=== PATIENT | female | born 1940 | race Caucasian/White ===

== ENCOUNTER → 2016-09-19 | Outpatient (CLI) | payer OTHER ==
[~2016-09-19] MED LIST: ALBUAER2 INH; ASPI-321 PO; CLON1TAB3 PO; FLNIN/ NAE; LEVO125T5 PO; SNG10 PO; ULT/50 PO
--- NOTE | 2016-09-19 13:11 | DIAGNOSTIC IMAGING REPORT ---
ULTRASOUND LEFT VENOUS DOPP LOWER EXT UNILAT CLINICAL HISTORY: Left leg pain and swelling COMPARISON STUDY: No previous studies for comparison. FINDINGS: Real-time and color flow Doppler imaging were performed. Flow was seen within the femoral, popliteal and calf veins with no intraluminal thrombus demonstrated. The saphenous vein is patent. IMPRESSION: No evidence of left lower extremity DVT. Electronically signed by: Dandy Lucero M.D. 09/19/2016 1:10 PM Dictated Date/Time: 09/19/2016 1:09 PM
== END | disposition home or self-care (01) ==
LOC: C.ULTRBC 12:31
PROVIDERS: ATTEND Nurse Practitioner
DX: M79.605 Pain in left leg (principal)

== ENCOUNTER → 2016-09-23 | Outpatient (CLI) | payer OTHER ==
--- NOTE | 2016-09-26 12:44 | MAMMOGRAPHY REPORT ---
BILATERAL DIGITAL SCREENING MAMMOGRAM TOMOSYNTHESIS WITH CAD: 09/23/2016 CLINICAL HISTORY: Asymptomatic. Personal history of breast cancer. TECHNIQUE: Breast tomosynthesis in addition to standard 2D mammography was performed. Current study was also evaluated with a Computer Aided Detection (CAD) system. COMPARISON: Comparison is made to exams dated: 09/23/2015 mammogram, 09/22/2014 mammogram, 09/19/2013 magda mogram, 09/17/2012 mammogram, 09/15/2011 mammogram, and 09/13/2010 mammogram - [facility]. BREAST COMPOSITION: There are scattered areas of fibroglandular density in both breasts. FINDINGS: The exam is suboptimal due to inability of the patient to tolerate proper positioning. T he pectoralis muscle is not visualized on bilateral MLO views and the far posterior tissue is not in cluded on MLO views. No suspicious masses, calcifications, or areas of architectural distortion are noted in either breast. There has been no significant interval change compared to prior exams. Pos t surgical changes are again noted in the left central breast from prior lumpectomy; note that the l umpectomy bed is not entirely included due to the far posterior location. Bilateral benign-appearin g calcifications and bilateral asymmetries are not significantly changed. IMPRESSION: ACR BI-RADS CATEGORY 2: BENIGN There is no mammographic evidence of malignancy. A 1 year screening mammogram is recommended. The p atient will receive written notification of the results. Approximately 10% of breast cancers are not detected with mammography. A negative mammographic repor t should not delay biopsy if a clinically suggestive mass is present. Anitra Sommer M.D. /:09/25/2016 11:45:53 Enamel Drier: Nidia VANEGAS(Sarika)(An), [facility] letter sent: Normal 1/2 BI-RADS Code: ACR BI-RADS Category 2: Benign
== END | disposition home or self-care (01) ==
LOC: C.MAMM 10:24
PROVIDERS: ATTEND Family Medicine
DX: Z12.31 Encounter for screening mammogram for malignant neoplasm of breast (principal); Z85.3 Personal history of malignant neoplasm of breast

== ENCOUNTER → 2016-11-02 | Outpatient (CLI) | payer OTHER ==
--- NOTE | 2016-11-03 06:29 | PAP/PSG TECHNICIAN REPORT ---
[facility] Director Of Hotel Operations Polysomnogram Report Study name: None Report date: 11/03/2016 Study date: 11/02/2016 Referring Physician: Riky CASILLAS M.D. Name: VILLANUEVA DREAD Karina Interpreting Physician: Domitila Casillas M.D. Date of : 1940 Director Of Hotel Operations: Yari Blackwood RPS. Sex: Female Age: 76 StudyType: PSG Weight: 142 lbs Height: 76 years, Height 4' 11" BMI: 28.68 Medications: LEVOTHYROXINE 125 MCG, LORATADINE 10 MG, ADVAIR DISKUS 250-50 MCG/DOSE, MONTELUKAST 10 MG, TRAMADOL 50 MG, IPRATROPIUM 0.02%, MOMETASONE FUROATE 0.1% OINT, PROAIR 108 MCG/ACT, ASPIRIN 81 MG, TUMS 500 MG Patient History 76 yr-old female here for a possible split night sleep study with ETC02 in room 8. Patient was very nervous upon arrival. She was very worried about wearing a mask. Patient has persistent asthma and nocturnal hypoxemia, she is not currently using oxygen. She also snores, has problems staying asleep and EDS. Patients [place] Sleepiness scale score is 18/24. Parameters Monitored NPSG: E1-M2, E2-M1, Fp1-M2, Fp2-M1, F3-M2, F4-M2, F4-M1, C3-M2, C4-M2, C4-M1, O1-M2, O2-M2, O2-M1, T3-M2, T4-M1, P3-M2, P4-M1, CHIN1, CHIN2, HR, EKG, Legs, PFLOW, SNOR, FLOW, CFLOW, Tidal Volume, THOR, ABDO, SpO2, PLTH, CPRESS, ETCO2 Wave, ETCO2, pH Sleep Architecture Sleep Stages Time at Lights Off 10:33:39 PM STAGES Time (min.) TST (%) Time at Lights On 5:43:39 AM Wake 139.0 -- Total Recording Time (TRT) 430.50 min. N1 21.5 7 Total Sleep Period (TSP) 415.0 min. N2 134.5 46 Total Sleep Time (TST) 291.0min. N3 101.5 35 Awake Time 139.0 min. REM 33.5 12 Wake after Sleep Onset 124.0 min. Sleep Efficiency (SE) 68 % Sleep Onset Latency (ROGER) 15.0 min. Number of Stage 1 Shifts None Awakenings 7 Stage Changes 28 Number of REM periods 2 REM 33.5 12 REM Latency 107.0 min. NREM 257.5 88 Body Position Analysis Supine Right Left Side Prone Vertical Total Sleep Time (min.) 429.8 0.0 0.0 0.00 0.0 0.1 Total Sleep Time (%) 100% 0% 0% 0 0% N/A% Total Sleep Time REM (min.) 33.5 0.0 0.0 None 0.0 0.0 Total Sleep Time NREM (min.) 257.5 0.0 0.0 None 0.0 0.0 Intermittent Wake (min.) 138.8 0.0 0.0 None 0.0 0.1 Total Sleep Period (%) 100% None None None None None Arousals Myoclonus (PLM) * Events Count Index Events Count Index Spontaneous 3 1 Events Awake (PLMW) 23 9.9 Respiratory 0 0.0 Events Asleep w/ Arousal (PLMA) 0 0.0 PLM 0 0 Events Asleep w/o Arousal (PLMS) 6 1.2 Snoring 1 0 Total Asleep 6 1.2 Total 4 1 Total 29 4 Respiratory Analysis * CA OA MA CH H RERA Total Count 0 19 0 0 28 0 47 Index 0.0 3.9 0.0 0 5.8 0 9.7 Mean Duration 0.0 28.2 0.0 0.00 23.4 0.0 25.3 Longest Duration 0.0 56.8 0.0 0.00 0.0 0.0 56.8 Respiratory Event Summary Total Supine ~Supine Right Left Prone REM NREM Apneas Count 19 19 N/A N/A N/A N/A 17 2 Index 3.9 4 N/A N/A N/A N/A 30 0 Hypopneas (4% Desat) Count 28 28 N/A N/A N/A N/A 10 18 Index 5.8 5.8 N/A N/A N/A N/A 17.9 4.2 Apneas & All Hypopneas Count 47 47 N/A N/A N/A N/A 27 20 Index 9.7 10 N/A N/A N/A N/A 48.4 4.7 Respiratory Events (Microsoft Office Instructor+All Hyp+RERA) Count 47 47 N/A N/A N/A N/A 27 20 Index 9.7 10 N/A N/A N/A N/A 48.4 4.7 Respiratory Related Arousal Count 0 47 N/A N/A N/A N/A 0 0 Index 0.0 0 N/A N/A N/A N/A 0 0 Snoring Analysis Supine Right Left Prone REM NREM Total Snore duration 1.0 min Snores count 48 N/A N/A N/A 7 41 48 Snore mean duration 1.2 Sec Snores index 10 N/A N/A N/A 12.5 9.6 9.9 TST with snoring (%) 0.3% SpO2 Analysis Total REM NREM Awake <50% 0.0 min. 0.0 min. 0.0 min. 0.0 min. 51 - 60% 0.0 min. 0.0 min. 0.0 min. 0.0 min. 61 - 70% 0.0 min. 0.0 min. 0.0 min. 0.0 min. 71 - 80% 1.4 min. 0.9 min. 0.1 min. 0.4 min. 81 - 90% 37.6 min. 10.5 min. 25.1 min. 2.0 min. 91 - 100% 375.1 min. 22.1 min. 232.3 min. 120.7 min. Average 92 91 92 93 Minimum SpO2 74 74 79 78 Desaturation Event Index 7.0 43.0 4.4 3.0 # Desat. Events below 89% 35 18 15 2 Time(%) with Saturation below 89% 3.3 1.9 1.0 0.4 Time(min.) with Saturation below 89% 13.8 8.0 4.1 1.7 Heart Rate Analysis End Tidal CO2 Analysis Min (bpm) Max (bpm) Average (bpm) TSP (mins) % of TSP Awake 54 86 63 Above 55 mmHg 0.0 0.0 NREM 55 74 61 50-55 mmHg 0.0 0.0 REM 55 82 62 45-50 mmHg 0.0 0.0 Overall 55 82 61 40-45 mmHg 18.5 6.4 35-40 mmHg 40.9 14.1 30-35 mmHg 112.9 38.8 Average ETCO2 0.0 Supplemental O2 Values Minimum O2 level: None Value Start Time End Time Director Of Hotel Operations Comments Mrs. Villanueva slept in the supine position. No cardiac arrhythmia or PLMs noted. No bruxism noted. Snoring was noted and scored as a 1 on a scale of 0 through 5. (0=no snoring, 5=snoring loud enough to be heard through a closed door or down the german way) Mrs. Villanueva awoke to use the restroom once during the night. She asked to be told when it was 3:30 am so she could take her medicine. At that time, she took a Tramadol. Mrs. Villanueva stated, that was a normal night. The final report will be interpreted and signed by a sleep physician. The completed physician report will then be placed in the patient medical record. Therapy (cm H2O) 0 TIB (min.) 430.0 TST (min.) 291.0 Sleep Onset (min.) 15.0 REM Onset From Sleep (min.) 107.0 Sleep Efficiency % 68 Wakefulness (%) 32 Wakefulness (min.) 139.0 NREM 1 (%) 7 NREM 1 (min.) 21.5 NREM 2 (%) 46 NREM 2 (min.) 134.5 NREM 3 (%) 35 NREM 3 (min.) 101.5 REM (%) 12 REM (min.) 33.5 # Arousals 4 Arousal Index 1 # Snore 48 Snore Index 9.9 AHI 9.7 AHI Supine 10 AHI Non-Supine N/A NREM AHI 4.7 REM AHI 48.4 RDI 9.7 # Obstructive Apnea 19 # Central Apnea 0 # Mixed Apnea 0 # Hypopneas 28 RERAs 0 Total Respiratory Events 50 Time Below SpO2 89% (min.) 12.1 Mean NREM SpO2 (%) 92 Mean REM SpO2 (%) 91 Mean Sleep SpO2 (%) 92 Min NREM SpO2 (%) 79 Min REM SpO2 (%) 74 Position Supine (min.) 429.8 Position Non-supine (min.) 0.0 LM Index Sleep 1.2 LM Index NREM 1.2 LM Index REM 1.8 Mean Heart Rate (bpm) 61 Min Heart Rate (bpm) 55
--- NOTE | 2016-11-17 08:51 | POLYSOMNOGRAPH REPORT ---
REFERRING PERSON: Dr. Jodi Casillas. FRONT MAKER LOCKSTITCH: Yari Blackwood. Ms. Villanueva is a 76-year-old female for possible split night sleep study. She is very anxious upon arrival to the sleep lab. She has a history of asthma and nocturnal hypoxemia, but is not currently using oxygen. She does snore and has trouble with sleep maintenance, insomnia as well as excessive daytime sleepiness. Her Evans sleepiness scale score on the evening of this study is 18. BMI is 28.68. Following the technical and digital specifications of the [place] [employer] (AASM) a standard diagnostic polysomnogram was performed monitoring EEG, EOG, EMG (chin and leg deviations), oxygen saturation, body position, digital video, respiratory effort and airflow. The sleep Stage and event scoring was based on the AASM Manual for the Scoring of Sleep and Associated Events 2007 edition. Apneas are defined as a drop in the peak thermal sensor excursion by >90% of baseline for at least 10 seconds. Hypopneas were scored using the 4% oxygen desaturation rule (4A-Medicare) and a decrease in the nasal pressure excursions by >30% of baseline for at least 10 seconds. Respiratory effort-related arousal (RERA's) is defined as a sequence of breaths lasting at least 10 seconds characterized by increasing respiratory effort or flattening of the nasal pressure waveform leading to an arousal from sleep when the sequence of breaths does not meet criteria for an apnea or hypopnea. Apnea Hypopnea index (AHI) is defined as the number of apneas and hypopneas occurring in an hour of sleep. Respiratory disturbance index (RDI) is defined as the number of apneas, hypopneas, and RERA's occurring in an hour of sleep. Ms. Villanueva's total sleep period time was 415 minutes. Total sleep time was only 291 minutes. Sleep efficiency was 68%. Latency to sleep onset was 15 minutes with wake after sleep onset of 124 minutes. Total non-REM sleep time was 257.5 minutes. She spent 7% of that time in N1 sleep, 46% in N2 sleep and 35% in N3 sleep. REM latency was 107 minutes. Total REM sleep time was 33.5 minutes or 12% of total sleep time. There were 4 cortical arousals from sleep. Three of these arousals were spontaneous and 1 was due to a snoring event. There were 6 periodic limb movements noted on this test. Limb movement index was 1.2. Limb movement with arousal index was 0. There were no central apneas, 19 obstructive apneas and no mixed apneas on this test. There were 28 hypopnea and no RERA. Apnea-hypopnea index was elevated at 9.7. The supine AHI was 10, REM AHI was 48.4. Mean saturation was 92% with desaturations briefly to 74%. Saturations were less than 89 for 13.8 minutes of recorded time. This is significant nocturnal hypoxemia. Heart rates during this study ranged from a low of 55 beats per minute to a high of 82 beats per minute. No cardiac ectopy was noted during this testing. End tidal CO2 data was incomplete on this study. IMPRESSION AND PLAN: A 76-year-old female with evidence of mild sleep apnea, severe in REM sleep as well as mild nocturnal hypoxemia. 1. This patient would likely benefit from positive airway pressure therapy. She should return to the sleep lab for a full night titration and then based on those results be started on equipment at home. A download from her machine can be reviewed in 1 month both to check compliance as well as AHI and further pressure adjustments can occur at that time. 2. Alternatively, this patient could be started on auto titrating CPAP and then a download reviewed in 1 month at which point she could be started on optimal pressure and another download reviewed. 3. Should this patient be unwilling or unable to tolerate CPAP therapy, she should be referred to ear, nose and throat or oral surgery/dental medicine (if appropriate) to discuss alternative treatments for sleep disordered breathing. JESI
== END | disposition home or self-care (01) ==
LOC: C.NEUR 20:00
PROVIDERS: ATTEND Family Medicine
DX: G47.36 Sleep related hypoventilation in conditions classified elsewhere (principal); J45.40 Moderate persistent asthma, uncomplicated; R06.83 Snoring; G47.10 Hypersomnia, unspecified; G47.00 Insomnia, unspecified

== ENCOUNTER → 2017-09-29 | Outpatient (CLI) | payer OTHER ==
--- NOTE | 2017-10-02 07:46 | MAMMOGRAPHY REPORT ---
BILATERAL DIGITAL SCREENING MAMMOGRAM TOMOSYNTHESIS WITH CAD: 09/29/2017 CLINICAL HISTORY: Routine screening. Patient has no complaints. TECHNIQUE: Breast tomosynthesis in addition to standard 2D mammography was performed. Current study was also evaluated with a Computer Aided Detection (CAD) system. COMPARISON: Comparison is made to exams dated: 09/23/2016 mammogram, 09/23/2015 mammogram, 09/22/2014 mamm ogram, 09/19/2013 mammogram, 09/17/2012 mammogram, and 09/15/2011 mammogram - [facility] . BREAST COMPOSITION: There are scattered areas of fibroglandular density in both breasts. FINDINGS: No suspicious masses, calcifications, or areas of architectural distortion are noted in ei ther breast. There has been no significant interval change compared to prior exams. Post surgical ch anges are again noted in the left central breast from prior lumpectomy; note that the lumpectomy bed is not entirely included due to the far posterior location. Bilateral benign-appearing calcification s and bilateral asymmetries are not significantly changed. IMPRESSION: ACR BI-RADS CATEGORY 2: BENIGN There is no mammographic evidence of malignancy. A 1 year screening mammogram is recommended. The pa tient will receive written notification of the results. Approximately 10% of breast cancers are not detected with mammography. A negative mammographic report should not delay biopsy if a clinically suggestive mass is present. Anitra Sommer M.D. /:09/29/2017 16:03:09 Storage Manager: Nidia ALBERTO)(An), [facility] letter sent: Normal 1/2 BI-RADS Code: ACR BI-RADS Category 2: Benign
== END | disposition home or self-care (01) ==
LOC: C.MAMM 14:14
PROVIDERS: ATTEND Family Medicine
DX: Z12.31 Encounter for screening mammogram for malignant neoplasm of breast (principal)

== ENCOUNTER 2021-01-03 17:19 | Inpatient (IN) ==
[2021-01-03] MEDS ORDERED: ACETAMINOPHEN 325 MG TAB PO STA (17:56)
[2021-01-03] MEDS ORDERED: SODIUM CHLORIDE 0.9% 1000ML 1,000 ML IV SCH (18:00)
[2021-01-03 19:12] LABS: Basophils # (auto) 0.02 K/uL (0-0.2); Basophils % (auto) 0.1 %; Eosinophils # (auto) 0.01 K/uL (0-0.5); Eosinophils % (auto) 0.1 %; Hematocrit (blood only) 36.8 % (37-47); Hemoglobin 12.5 g/dL (12.0-16.0); Immature Granulocytes # (auto) 0.06 K/uL (0.00-0.02); Immature Granulocytes % (auto) 0.4 %; Lymphocytes # (auto) 1.16 K/uL (1.2-3.4); Lymphocytes % (auto) 6.9 %; Mean Corpuscular Hemoglobin 29.6 pg (25-34); Mean Platelet Volume 10.6 fL (7.4-10.4); Monocytes # (auto) 1.97 K/uL (0.11-0.59); Monocytes % (auto) 11.7 %; Neutrophils # (auto) 13.56 K/uL (1.4-6.5); Neutrophils % (auto) 80.8 %; Platelet Count 211 K/uL (130-400); RDW Coefficient of Variation 13.7 % (11.5-14.5); RDW Standard Deviation 43.7 fL (36.4-46.3); Red Blood Count 4.23 M/uL (4.2-5.4); White Blood Count 16.78 K/uL (4.8-10.8)
[2021-01-03 19:21] LABS: INR 1.2 (0.9-1.1); Prothrombin Time 11.9 Seconds (9.0-12.0)
--- NOTE | 2021-01-03 19:26 | XRay Report ---
XR chest 1V portable CLINICAL HISTORY: fever, sob COMPARISON STUDY: Chest radiograph April 02, 2020. FINDINGS: Incidental note is made of cholecystectomy clips. There may be trace bilateral pleural effu sions. Cardiac size is normal. There are mild bilateral opacities and subtle interstitial thickening. IMPRESSION: 1. Mild bilateral opacities and interstitial thickening. The findings favor an infectious process. Pu lmonary edema could appear similar. Radiographic follow up is recommended. 2. Possible trace bilateral left pleural effusions. ACT 112: Negative or not required by law. Electronically signed by: Johnnie Hdz M.D. 01/03/2021 7:25 PM
[2021-01-03 19:32] LABS: Albumin Level 2.5 gm/dl (3.4-5.0); BUN Creatinine Ratio 32.3 (10-20); Calcium 8.3 mg/dl (8.5-10.1); Creatinine Clr Calc Pharmacy 47.9 ml/min; Est GFR (African American) 88.5 ml/min; Est GFR (Non-African American) 76.3 ml/min; Magnesium 2.4 mg/dl (1.8-2.4); Potassium 3.4 mmol/L (3.5-5.1)
[2021-01-03] MEDS ORDERED: cefTRIAXone SODIUM 1,000 MG/50 ML BAG IV STA (19:33)
[2021-01-03] MEDS ORDERED: DOXYCYCLINE HYCLATE 100 MG CAP PO STA (19:33)
[2021-01-03 19:43] LABS: Albumin Globulin Ratio 0.6 (0.9-2); Bilirubin,Total 0.7 mg/dl (0.2-1); Thyroid Stimulating Hormone 7.61 uIu/ml (0.300-4.500); Total Protein 6.5 gm/dl (6.4-8.2); Troponin I 0.016 ng/ml (0-0.045)
--- NOTE | 2021-01-03 19:43 | Emergency Department Note ---
Impression & Plan Pneumonia, Hypoxia ED Provider Note DATE OF SERVICE: 01/03/2021 CHIEF COMPLAINT: Shortness of breath, fever HISTORY OF PRESENT ILLNESS: Patient is a 80-year-old female past medical history including breast cancer and thyroid dysfunction on aspirin presenting here today complaining of shortness of breath and fever developing over the past 36 hours. Patient has received the Covid vaccine. Family just noted she was ill today and brought her here. Fever noted in triage but she states has been feeling somewhat cold at home. Reported that last night she had a little bit of pain under her left breast as well as a little bit of right lower quadrant abdominal pain but this is resolved. Denies any nausea or vomiting or current abdominal pain. Denies any current chest pain. No recent travel or leg swelling reported. Patient is somewhat hard of hearing. Patient is not on oxygen at home. REVIEW OF SYSTEMS: A total of 10 review of systems was obtained and negative except as stated above in the HPI. PAST MEDICAL HISTORY: As noted above MEDICATIONS: Reviewed home medications with the patient and family at bedside SOCIAL HISTORY: Lives at home with , not on home oxygen PHYSICAL EXAM: GENERAL: alert and oriented in no acute distress on stretcher although quite hard of hearing Head: normocephalic and atraumatic EYES: No injection, discharge or icterus. NECK: Trachea midline. Supple. LUNGS: Airway patent. No retractions. Breath sounds diminished in the bases without significant expiratory wheeze. HEART: Regular rate and rhythm. No chest wall tenderness ABDOMEN: Soft and non-tender, without guarding or rebound. SKIN: Acyanotic, warm, dry, without rashes EXTREMITIES: Without swelling, tenderness or deformity NEUROLOGICAL: No focal deficits. No aphasia. No facial droop or slurred speech. EK bpm sinus tachycardia. No PVC or PVC. No acute ST segment elevation noted. QTc 436. CONTINUOUS CARDIAC MONITORING: was ordered and showed a heart rate of 80s-110s bpm in normal sinus rhythm to sinus tachycardia Patient's laboratory studies and imaging reviewed. Differential includes Infection, dehydration, metabolic abnormality, hypo/hyperglycemia, electrolyte disturbance, anemia, hypoxia, cardiac sources, intracerebral event, toxicologic, neurologic, as well as other pathologies. IMPRESSION/MEDICAL DECISION MAKING: Patient no to be febrile hypoxic upon arrival. Given some Tylenol and nasal cannula oxygen. Patient given some IV fluid hydration. Leukocytosis is noted here without anemia. Covid testing negative. X-ray concerning for pneumonia. Procalcitonin 0.49. Lactate is not elevated. No evidence of hepatitis. Borderline hypokalemia but no severe electrolyte abnormalities either renal dysfunction. Troponin detectable but not abnormal. Does report some chest pain last night but no apparent significant acute ST elevation here question some possible demand component. Patient is on aspirin at home although question if she takes this regularly by family. Given doxycycline and ceftriaxone for broad coverage of pneumonia. Given her hypoxia feel she needs further care here at the hospital and she was in agreement. Given lack of leg swelling no significant concern for fluid overload at this time and doubt DVT. Lower susp icion given the leukocytosis and fever of 39.1 lower suspicion for PE at this time. Hospitalist was contacted. DIAGNOSIS: Pneumonia, hypoxia DISPOSITION: Hospitalist will evaluate Patient was agreeable with this plan. Past Med/Surg History Medical History (Updated 01/03/21 @ 21:00 by Adarsh Herron M.D.) Anxiety Asthma RARELY USES RESCUE INH. FOLLOWS WITH [facility]. YRS SINCE LAST EXAC Breast cancer 2001- RADIATION GERD (gastroesophageal reflux disease) Hx of deep venous thrombosis CANT REMEMBER WHICH LEG- FROM LEG INJURY, YRS AGO- CANT REM. TX GIVEN Hypothyroidism Osteoarthritis Tachycardia ANXIETY RELATED PER PATIENT. FOLLOWS AT [facility] Surgical History (Updated 03/21/19 @ 00:04 by Iveth Ng) History of arthroscopy BILAT KNEES History of bilateral tubal ligation History of cholecystectomy History of colonoscopy History of esophagogastroduodenoscopy (EGD) Hx of hernia repair Hx of lumpectomy LEFT Social History (System 03/12/19 @ 08:17 by Luly Tovar) Smoking Status: Never smoker Second Hand Exposure: No; Hx Alcohol Use: No Hx Substance Use: No Preferred Language: Urdu Communication Ability: Effective Mirror Inspector Required: No Beliefs That Will Affect Care: None Current Living Situation: Spouse Other Information That Helps Us Care for You: No Feels Safe at Home: No Is there a partner from a previous relationship who is making you feel unsafe now?: No Any Concerns about Your Family Situation: No Wo uld You Like to Speak to Someone About Your Situation: No Safety Concerns: Feels Safe At This Time Assistive Devices: Denture - Upper and Glasses Allergies Allergies Allergy/AdvReac Type Severity Reaction Status Date / Time iodine Allergy Severe ORAL AND Verified 01/03/21 20:49 FACIAL SWELLING methadone Allergy Severe Shakiness Verified 01/03/21 20:49 propoxyphene Allergy Severe Shakiness Verified 01/03/21 20:49 shellfish derived Allergy Severe ORAL AND Verified 01/03/21 20:49 FACIAL SWELLING clarithromycin Allergy Unknown unknown Verified 01/03/21 20:49 prednisone Allergy Unknown Shakiness Verified 01/03/21 20:49 Serotonin 5HT-3 Antagonists Allergy Unknown Anxiety Verified 01/03/21 20:49 morphine AdvReac Unknown LIGHTHEADED Verified 01/03/21 20:49 Home Meds Home Medications Medication Instructions Recorded Confirmed albuterol sulfate 90 mcg/actuation 1 puff INHALATION Q6H PRN 03/13/19 01/03/21 aerosol inhaler fluticasone 250 mcg-salmeterol 50 1 inh INHALATION BID 03/13/19 01/03/21 mcg/dose blistr powdr for inhalation (Advair Diskus) montelukast 10 mg tablet 10 mg PO QAM 03/13/19 01/03/21 albuterol sulfate 2.5 mg INHALATION TID 01/03/21 01/03/21 aspirin 81 mg tablet,delayed 81 mg PO [id number] 01/03/21 01/03/21 release clonazepam 0.5 mg tablet 0.5 mg PO QID 01/03/21 01/03/21 famotidine 20 mg tablet 20 mg PO HS 01/03/21 01/03/21 levothyroxine 137 mcg tablet 137 mcg PO QAM 01/03/21 01/03/21 Results & Data (ED) Vital Signs Vital Signs - 24 hr 01/03/21 17:28 01/03/21 17:32 01/03/21 17:37 Temperature 39.1 C H Temperature Source Oral Pulse Rate 113 H 126 H Pulse Rate from SpO2 Sensor Respiratory Rate 21 24 Respiratory Effort / Characteristics Non-Labored Spontaneous Respiratory Depth Normal Respiratory Pattern Regular Blood Pressure 118/73 115/76 Blood Pressure Mean 88 89 Pulse Oximetry 76 L 88 L Oxygen Delivery Method Room Air Nasal Cannula Oxygen Flow Rate 3 Sepsis Recent Fever Within 48 Hours Yes Sepsis New/Unexplained Change in Mental Status N/A Sepsis Action Taken by Nursing Physician Notified 01/03/21 18:00 01/03/21 18:06 01/03/21 18:30 Temperature Temperature Source Pulse Rate 110 H 101 H Pulse Rate from SpO2 Sensor 110 H 101 H Respiratory Rate 23 22 Respiratory Effort / Characteristics Respiratory Depth Respiratory Pattern Blood Pressure 161/90 H 143/86 H Blood Pressure Mean 113 105 Pulse Oximetry 97 98 97 Oxygen Delivery Method Nasal Cannula Oxygen Flow Rate 4 Sepsis Recent Fever Within 48 Hours Sepsis New/Unexplained Change in Mental Status Sepsis Action Taken by Nursing 01/03/21 19:00 01/03/21 19:30 01/03/21 19:56 Temperature 37.6 C H Temperature Source Oral Pulse Rate 97 H Pulse Rate from SpO2 Sensor 94 H Respiratory Rate 21 23 Respiratory Effort / Characteristics Respiratory Depth Respiratory Pattern Blood Pressure 127/75 123/69 Blood Pressure Mean 92 87 Pulse Oximetry 96 Oxygen Delivery Method Oxygen Flow Rate Sepsis Recent Fever Within 48 Hours Sepsis New/Unexplained Change in Mental Status Sepsis Action Taken by Nursing 01/03/21 20:00 01/03/21 20:30 Temperature Temperature Source Pulse Rate 92 H 98 H Pulse Rate from SpO2 Sensor 87 85 Respiratory Rate 28 H 26 H Respiratory Effort / Characteristics Respiratory Depth Respiratory Pattern Blood Pressure 110/63 117/63 Blood Pressure Mean 78 81 Pulse Oximetry 99 90 Oxygen Delivery Method Oxygen Flow Rate Sepsis Recent Fever Within 48 Hours Sepsis New/Unexplained Change in Mental Status Sepsis Action Taken by Nursing Laboratory Data Result diagrams: 01/03/21 19:03 01/03/21 19:03 Lab Results 01/03/21 01/03/21 01/03/21 Range/Units 18:10 18:10 19:03 WBC 16.78 H (4.8-10.8) K/uL RBC 4.23 (4.2-5.4) M/uL Hgb 12.5 (12.0-16.0) g/dL Hct 36.8 L (37-47) % MCV 87.0 (80-100) fL MCH 29.6 (25-34) pg MCHC 34.0 (32-36) g/dL RDW Std Deviation 43.7 (36.4-46.3) fL RDW Coeff of Neena 13.7 (11.5-14.5) % Plt Count 211 (130-400) K/uL MPV 10.6 H (7.4-10.4) fL Immature Gran % (Auto) 0.4 % Neut % (Auto) 80.8 % Lymph % (Auto) 6.9 % Wells % (Auto) 11.7 % Eos % (Auto) 0.1 % Baso % (Auto) 0.1 % Neut # (Auto) 13.56 H (1.4-6.5) K/uL Lymph # (Auto) 1.16 L (1.2-3.4) K/uL Wells # (Auto) 1.97 H (0.11-0.59) K/uL Eos # (Auto) 0.01 (0-0.5) K/uL Baso # (Auto) 0.02 (0-0.2) K/uL Immature Gran # (Auto) 0.06 H (0.00-0.02) K/uL PT (9.0-12.0) Seconds INR (0.9-1.1) Sodium (136-145) mmol/L Potassium (3.5-5.1) mmol/L Chloride (98-107) mmol/L Carbon Dioxide (21-32) mmol/L Anion Gap (3-11) BUN (7-18) mg/dl Creatinine (0.6-1.2) mg/dl Est Cr Clr Drug Dosing ml/min Est GFR ( Amer) ml/min Est GFR (Non-Af Amer) ml/min BUN/Creatinine Ratio (10-20) Glucose (70-99) mg/dl Lactate (0.4-2.0) mmol/L Calcium (8.5-10.1) mg/dl Magnesium (1.8-2.4) mg/dl Total Bilirubin (0.2-1) mg/dl AST (15-37) U/L ALT (12-78) U/L Alkaline Phosphatase (45-117) U/L Troponin I (0-0.045) ng/ml Total Protein (6.4-8.2) gm/dl Albumin (3.4-5.0) gm/dl Globulin (2.5-4.0) gm/dl Albumin/Globulin Ratio (0.9-2) Lipase (73-393) U/L Procalcitonin (0-0.5) ng/ml TSH (0.300-4.500) uIu/ml Free T4 (0.8-1.6) ng/dl COVID-19 Eval Order Covid19 at [facility] SARS-CoV-2 (PCR) NEGATIVE (Negative) 01/03/21 01/03/21 01/03/21 Range/Units 19:03 19:03 19:03 WBC (4.8-10.8) K/uL RBC (4.2-5.4) M/uL Hgb (12.0-16.0) g/dL Hct (37-47) % MCV (80-100) fL MCH (25-34) pg MCHC (32-36) g/dL RDW Std Deviation (36.4-46.3) fL RDW Coeff of Neena (11.5-14.5) % Plt Count (130-400) K/uL MPV (7.4-10.4) fL Immature Gran % (Auto) % Neut % (Auto) % Lymph % (Auto) % Wells % (Auto) % Eos % (Auto) % Baso % (Auto) % Neut # (Auto) (1.4-6.5) K/uL Lymph # (Auto) (1.2-3.4) K/uL Wells # (Auto) (0.11-0.59) K/uL Eos # (Auto) (0-0.5) K/uL Baso # (Auto) (0-0.2) K/uL Immature Gran # (Auto) (0.00-0.02) K/uL PT 11.9 (9.0-12.0) Seconds INR 1.2 H (0.9-1.1) Sodium 139 (136-145) mmol/L Potassium 3.4 L (3.5-5.1) mmol/L Chloride 103 (98-107) mmol/L Carbon Dioxide 32 (21-32) mmol/L Anion Gap 4.0 (3-11) BUN 24 H (7-18) mg/dl Creatinine 0.75 (0.6-1.2) mg/dl Est Cr Clr Drug Dosing 47.9 ml/min Est GFR ( Amer) 88.5 ml/min Est GFR (Non-Af Amer) 76.3 ml/min BUN/Creatinine Ratio 32.3 H (10-20) Glucose 125 H (70-99) mg/dl Lactate 1.1 (0.4-2.0) mmol/L Calcium 8.3 L (8.5-10.1) mg/dl Magnesium 2.4 (1.8-2.4) mg/dl Total Bilirubin 0.7 (0.2-1) mg/dl AST 37 (15-37) U/L ALT 28 (12-78) U/L Alkaline Phosphatase 78 (45-117) U/L Troponin I 0.016 (0-0.045) ng/ml Total Protein 6.5 (6.4-8.2) gm/dl Albumin 2.5 L (3.4-5.0) gm/dl Globulin 4.0 (2.5-4.0) gm/dl Albumin/Globulin Ratio 0.6 L (0.9-2) Lipase 139 (73-393) U/L Procalcitonin (0-0.5) ng/ml TSH 7.610 H (0.300-4.500) uIu/ml Free T4 1.12 (0.8-1.6) ng/dl COVID-19 Eval Order SARS-CoV-2 (PCR) (Negative) 01/03/21 Range/Units 19:03 WBC (4.8-10.8) K/uL RBC (4.2-5.4) M/uL Hgb (12.0-16.0) g/dL Hct (37-47) % MCV (80-100) fL MCH (25-34) pg MCHC (32-36) g/dL RDW Std Deviation (36.4-46.3) fL RDW Coeff of Neena (11.5-14.5) % Plt Count (130-400) K/uL MPV (7.4-10.4) fL Immature Gran % (Auto) % Neut % (Auto) % Lymph % (Auto) % Wells % (Auto) % Eos % (Auto) % Baso % (Auto) % Neut # (Auto) (1.4-6.5) K/uL Lymph # (Auto) (1.2-3.4) K/uL Wells # (Auto) (0.11-0.59) K/uL Eos # (Auto) (0-0.5) K/uL Baso # (Auto) (0-0.2) K/uL Immature Gran # (Auto) (0.00-0.02) K/uL PT (9.0-12.0) Seconds INR (0.9-1.1) Sodium (136-145) mmol/L Potassium (3.5-5.1) mmol/L Chloride (98-107) mmol/L Carbon Dioxide (21-32) mmol/L Anion Gap (3-11) BUN (7-18) mg/dl Creatinine (0.6-1.2) mg/dl Est Cr Clr Drug Dosing ml/min Est GFR ( Amer) ml/min Est GFR (Non-Af Amer) ml/min BUN/Creatinine Ratio (10-20) Glucose (70-99) mg/dl Lactate (0.4-2.0) mmol/L Calcium (8.5-10.1) mg/dl Magnesium (1.8-2.4) mg/dl Total Bilirubin (0.2-1) mg/dl AST (15-37) U/L ALT (12-78) U/L Alkaline Phosphatase (45-117) U/L Troponin I (0-0.045) ng/ml Total Protein (6.4-8.2) gm/dl Albumin (3.4-5.0) gm/dl Globulin (2.5-4.0) gm/dl Albumin/Globulin Ratio (0.9-2) Lipase (73-393) U/L Procalcitonin 0.49 (0-0.5) ng/ml TSH (0.300-4.500) uIu/ml Free T4 (0.8-1.6) ng/dl COVID-19 Eval Order SARS-CoV-2 (PCR) (Negative) Administered Medications Discontinued Medications Acetaminophen (Acetaminophen 325 Mg Tab) 650 mg PO NOW STA Stop: 01/03/21 17:57 Last Admin: 01/03/21 18:10 Dose: 650 mg Documented by: [id number] Doxycycline Hyclate (Doxycycline Hyclate 100 Mg Cap) 100 mg PO NOW STA Stop: 01/03/21 19:34 Last Admin: 01/03/21 19:50 Dose: 100 mg Documented by: [id number] Sodium Chloride (Nss 1000ml) 1,000 mls @ 999 mls/hr IV .Q1H1M MILY Stop: 01/03/21 19:00 Last Infusion: 01/03/21 19:10 Dose: 0 mls/hr Documented by: [id number] Admin: 01/03/21 18:10 Dose: 999 mls/hr Documented by: [id number] Ceftriaxone Sodium (Rocephin) 1,000 mg in 50 mls @ 100 mls/hr IV NOW STA Stop: 01/03/21 20:02 Last Infusion: 01/03/21 20:30 Dose: 0 mls/hr Documented by: [id number] Admin: 01/03/21 19:50 Dose: 100 mls/hr Documented by: [id number] Imaging Data Radiologist's Impression: Chest X-Ray 01/03/21 17:56 XR chest 1V portable CLINICAL HISTORY: fever, sob COMPARISON STUDY: Chest radiograph April 02, 2020. FINDINGS: Incidental note is made of cholecystectomy clips. There may be trace bilateral pleural effusions. Cardiac size is normal. There are mild bilateral op acities and subtle interstitial thickening. IMPRESSION: 1. Mild bilateral opacities and interstitial thickening. The findings favor an infectious process. Pulmonary edema could appear similar. Radiographic follow up is recommended. 2. Possible trace bilateral left pleural effusions. ACT 112: Negative or not required by law. Electronically signed by: Johnnie Hdz M.D. 01/03/2021 7:25 PM Discharge Plan Visit Data Chief Complaint: Illness Stated Complaint: COUGH, SINUS PRESSURE, SORE THOAT ED Provider: Adarsh Herron Discharge Problem: Pneumonia, Hypoxia Patient Disposition: Admitted As Inpatient Discharge Instructions Interventions: ED Discharge Assessment Last Done: 01/03/21 21:19 Discharge Problem: Pneumonia Qualifiers: Pneumonia type: due to unspecified organism Laterality: bilateral Lung location: lower lobe of lung Qualified Code(s): J18.9 - Pneumonia, unspecified organism
[2021-01-03 19:56] LABS: T4 Free Thyroxine 1.12 ng/dl (0.8-1.6)
[2021-01-03] MEDS ORDERED: clonazePAM 0.5 MG TAB PO STA (20:46)
[2021-01-03 21:32] LABS: Appearance Urine Clear (Clear); Bacteria Urine Automated Negative (Negative); Bilirubin Urine Negative (Negative); Blood Urine Trace (Negative); Color Urine Yellow; Epithelial Cell Urine Auto >30 /lpf (0-5); Glucose Urine UA Negative (Negative); Ketones Urine 1+ (Negative); Leukocyte Esterase Urine 1+ (Negative); Nitrite Urine Negative (Negative); Protein Urine 2+ (Negative); RBC Urine Automated 0-4 /hpf (0-4); Specific Gravity Urine 1.024 (1.000-1.030); Urobilinogen Urine Negative (Negative)
[2021-01-03] MEDS ORDERED: POLYETHYLENE (MIRALAX) 17 GM PACK PO PRN (22:33)
[2021-01-03] MEDS ORDERED: ACETAMINOPHEN 325 MG TAB PO PRN (22:33)
[2021-01-03] MEDS ORDERED: CALCIUM CARBONATE 500 MG CHEWABLE TAB PO PRN (22:33)
[2021-01-03] MEDS ORDERED: NITROGLYCERIN SL 0.4 MG/TAB TAB SL PRN (22:33)
[2021-01-03] MEDS ORDERED: ALBUTEROL HFA 8 GM INHALER INH PRN (22:33)
[2021-01-03] MEDS ORDERED: ASPIRIN 81 MG ECTAB PO SCH (22:33)
--- NOTE | 2021-01-03 23:22 | History and Physical Report ---
DATE OF ADMISSION: 01/03/2021. CHIEF COMPLAINT: Shortness of breath and fever. HISTORY OF PRESENT ILLNESS: A 80-year-old female with past medical history significant for hypothyroidism, hyperlipidemia, Hurthle cell adenoma of thyroid, chronic nonspecific lung disease, moderate persistent asthma with a complication of rhinitis, reflux esophagitis, GERD, generalized osteoarthrosis, migraine, benign paroxysmal vertigo, personal history of malignant neoplasm of breast, history of colonic polyp, generalized anxiety disorder, history of novel coronavirus disease who lives with her , presents with shortness of breath and fever. The symptoms started since last Monday, getting worse, once in a while she brings up greenish phlegm. That is the reason she came to the ER and her oxygen sats were 76% in the ER. On 4 liters, she is saturating above 90%. Somewhat tachycardic. Currently resting comfortably.Somewhat hard of hearing. Her [id number] and are in the room who helped with the history. The patient seems comfortable, answering appropriately, but somewhat hard of hearing. She is sometimes also getting chest heaviness because of her ongoing shortness of breath. She has some headache now, vision is okay. Has some sore throat. Her appetite is down in the last 2 days. No difficulty swallowing. No abdominal pain. Has some mild back pain since the last 2 days. No leg pains. No neck pain. No burning micturition, no black stools or blood in stools. ALLERGIES: IODINE, METHADONE, PROPOXYPHENE, SHELLFISH, CLARITHROMYCIN, PREDNISONE, SEROTONIN 5-HT3 ANTAGONIST, AND MORPHINE. PAST MEDICAL HISTORY: As mentioned above. PAST SURGICAL HISTORY: Bilateral knee arthroplasty, biopsy of breast, colonoscopy, EGDs with biopsy, excision of the face and scalp deep tumor, laparoscopic cholecystectomy, ligation of oviducts, lumpectomy and radiation, thoracoscopy with excision of pericardial cyst, umbilical hernia repair, vaginal delivery. MEDICATIONS: The patient is on albuterol 1 puff q.6 hours p.r.n., albuterol nebulization t.i.d., aspirin 81 mg p.o. 3 times a week, Klonopin 0.5 mg p.o. q.i.d., famotidine 20 mg p.o. at bedtime, Advair Diskus 1 inhalation b.i.d., levothyroxine 137 mcg p.o. daily, montelukast 10 mg p.o. a.m. FAMILY HISTORY: Significant for mother had skin cancer, heart disorder, stroke; father has heart disorder, suicidal intentional. SOCIAL HISTORY: , no smoking, alcohol rare, no drug use. REVIEW OF SYSTEMS: As per HPI. Rest of review of systems is negative. PHYSICAL EXAMINATION: GENERAL: The patient is of moderate build, not in acute distress. VITAL SIGNS: T-max 39.1, pulse 98, respiratory rate 26, blood pressure 117/63, oxygen saturation of 76% on room air, 98% on 4 liters. HEENT: Pupils equal, round and reactive to light. Oral mucosa moist. NECK: No JVD, no neck masses. CARDIOVASCULAR: S1 and S2 heard. Regular rhythm. No murmur, no gallop. RESPIRATORY SYSTEM: Normal AP diameter. No accessory muscle use. No wheezing, no crackles. ABDOMEN: Soft, bowel sounds present, nontender, no distention. CENTRAL NERVOUS SYSTEM: Cranial nerves II-XII grossly intact, nonfocal. EXTREMITIES: No edema, no erythema. LABORATORY DATA: WBC 16.7, hemoglobin 12.5, hematocrit 36.8, platelets 211. PT 11.9, INR 1.2. Sodium 139, potassium 3.4, chloride 103, bicarbonate 32, BUN 24, creatinine 0.7, serum glucose 125, lactate 1.1, calcium 8.3, magnesium 2.4, total bilirubin 0.7, AST 37, ALT 28, alkaline phosphatase 78. Troponin I of 0.016. TSH 7.6, free T4 of 1.12. SARS-CoV-2 PCR negative. IMAGING DATA: Chest x-ray: Mild bilateral opacities or interstitial thickening; this finding favors infectious process, pulmonary edema could appear similar. Possible trace bilateral pleural effusions. EKG: Sinus tachycardia at a rate of 112. ASSESSMENT AND PLAN: This is a 80-year-old female who presents with shortness of breath, hypoxia secondary to pneumonia. 1. Hypoxia, requiring 4 liters of oxygen secondary to pneumonia. Started on Rocephin and doxycycline, which we will be continued. Continue nebulizers around the clock and closely monitor in telemetry floor. Monitor the response. 2. History of asthma. Nebulizers as above, we will also continue Advair Diskus. We will monitor. 3. History of hypothyroidism. Continue Synthroid. 4. History of breast cancer, status post radiation and lumpectomy. As per the epic notes, she is having problems ever since with breathing. 5. History of generalized anxiety disorder. Continue her Klonopin. 6. Deep venous thrombosis prophylaxis, Lovenox. DISPOSITION: Closely monitor in the med-tele. PT, OT prior to discharge. Social service to help with discharge planning. Level 1 full code. Job ID: [id number] MTDD
[2021-01-04] MEDS: ENOXAPARIN INJ 40 MG/0.4 ML SYR SQ SCH ×2 (00:08→23:17)
[2021-01-04] MEDS: FAMOTIDINE 20 MG TAB PO SCH ×2 (00:09→21:29)
[2021-01-04] MEDS: SODIUM CHLORIDE 0.9% 1000ML 1,000 ML IV SCH ×2 (00:15→13:20)
[2021-01-04] MEDS: clonazePAM 0.5 MG TAB PO SCH ×5 (00:15→21:29)
[2021-01-04] MEDS ORDERED: XOPENEX/ATROVENT 1.25mg/0.5MG NEB COMBO NEB SCH (01:00)
[2021-01-04] MEDS: LEVALBUTEROL 1.25MG/0.5ML NEB INH SCH ×4 (01:47→18:57)
[2021-01-04] MEDS: IPRATROPIUM BROMIDE NEB SOLN 0.02% 2.5 ML VIAL INH SCH ×4 (01:47→18:57)
[2021-01-04 06:04] LABS: Basophils # (auto) 0.02 K/uL (0-0.2); Basophils % (auto) 0.1 %; Eosinophils # (auto) 0.02 K/uL (0-0.5); Eosinophils % (auto) 0.1 %; Hematocrit (blood only) 39.3 % (37-47); Hemoglobin 12.9 g/dL (12.0-16.0); Immature Granulocytes # (auto) 0.05 K/uL (0.00-0.02); Immature Granulocytes % (auto) 0.3 %; Lymphocytes # (auto) 1.94 K/uL (1.2-3.4); Lymphocytes % (auto) 11.2 %; Mean Corpuscular Hemoglobin 29.4 pg (25-34); Mean Corpuscular Hgb Conc 32.8 g/dL (32-36); Mean Corpuscular Volume 89.5 fL (80-100); Mean Platelet Volume 10.8 fL (7.4-10.4); Monocytes # (auto) 1.59 K/uL (0.11-0.59); Monocytes % (auto) 9.2 %; Neutrophils % (auto) 79.1 %; Platelet Count 245 K/uL (130-400); RDW Coefficient of Variation 13.7 % (11.5-14.5); RDW Standard Deviation 45.2 fL (36.4-46.3); Red Blood Count 4.39 M/uL (4.2-5.4); White Blood Count 17.32 K/uL (4.8-10.8)
[2021-01-04] MEDS: LEVOTHYROXINE SODIUM 137 MCG TABLET PO SCH (06:32)
[2021-01-04 06:42] LABS: BUN Creatinine Ratio 29.9 (10-20); Calcium 8.3 mg/dl (8.5-10.1); Creatinine Clr Calc Pharmacy 60.9 ml/min; Est GFR (African American) 101.7 ml/min; Est GFR (Non-African American) 87.8 ml/min; Magnesium 2.2 mg/dl (1.8-2.4); Potassium 3.1 mmol/L (3.5-5.1)
[2021-01-04] MEDS ORDERED: POTASSIUM CHLORIDE PWD 20 MEQ PACK PO ONE (08:36)
[2021-01-04] MEDS: cefTRIAXone SODIUM 1,000 MG in DEXTROSE 5% 50 ML IV SCH (08:44)
[2021-01-04] MEDS: FLUTICASONE/VILANTEROL 200/25MCG 14 PUFFS/INHALER INH SCH (08:45)
[2021-01-04] MEDS: MONTELUKAST SODIUM 10 MG TABLET PO SCH (08:45)
[2021-01-04] MEDS: ASPIRIN 81 MG ECTAB PO SCH (08:45)
[2021-01-04] MEDS: DOXYCYCLINE HYCLATE 100 MG in DEXTROSE 5% 100 ML IV SCH ×2 (09:24→21:28)
--- NOTE | 2021-01-04 13:17 | Electrocardiogram Report ---
Test Reason : Blood Pressure : / mmHG Vent. Rate : 112 BPM Atrial Rate : 112 BPM P-R Int : 132 ms QRS Dur : 076 ms QT Int : 320 ms P-R-T Axes : 118 193 136 degrees QTc Int : 436 ms Poor data quality, interpretation may be adversely affected Suspect arm lead reversal, interpretation assumes no reversal Sinus tachycardia Right superior axis deviation Abnormal ECG When compared with ECG of 02-APR-2020 17:05, QRS axis Shifted left T wave inversion now evident in Lateral leads Confirmed by Phil Tsai ([id number]) on 01/04/2021 1:17:01 PM Referred By: REFERRED SELF Confirmed By:Phil Tsai
--- NOTE | 2021-01-04 14:29 | Hospitalist Progress Note ---
Date of Service January 04, 2021 Assessment & Plan (1) Pneumonia: Plan: Patient is a 80 yr female who presents with shortness of breath, hypoxia secondary to pneumonia. Pneumonia Suspected Pulmonary edema Hypoxia CXR: Mild bilateral opacities and interstitial thickening. The findings favor an infectious process. Pulmonary edema could appear similar. Radiographic follow up is recommended. Possible trace bilateral left pleural effusions Normal Lactate, Procalcitonin Levels Received IV fluids on admission Continue Ceftriaxone, Doxycycline Day #2 Blood Cultures Pending Nebs, Supplemental Oxygen as needed H/O Asthma Continue Home inhalers Also on Nebs Consider Prednisone if necessary Hypokalemia Replace electrolytes as needed Hypothyroidism Elevated TSH, normal Free T4 Continue Levothyroxine Needs repeat thyroid function tests as outpatient H/O Breast cancer S/P Radiation and lumpectomy. CIELO Continue Klonopin DVT Px: Lovenox SQ Code Status Full Code DISPOSITION: PT, OT prior to discharge. Admission and Anticipated Discharge Date Admission Date: January 03, 2021 Subjective Patient is seen and examined at bedside States feeling better today Less cough, dyspnea Denies chest pain, nausea, abd pain Review of Systems Review of Systems: All systems reviewed & are unremarkable except as noted in Subjective Physical Exam Physical Exam: Physical Exam: Vitals signs as noted above General Appearance:Elderly, Frail, Chronic ill appearing, Hearing impairment Head: normocephalic, Atraumatic Eyes: normal inspection, EOMI Neck: supple, Trachea midline Respiratory/Chest:Decreased breath sounds, scattered wheezes Cardiovascular: S1, S2, No murmur Abdomen/GI:Soft, Non tender, Bowel sounds present Extremities/Musculoskeletal:normal inspection, 1+ B/L LE edema Neurologic/Psych:AAOX3, grossly no focal neurological deficits Skin: normal color, warm Results & Data Results & Data ([facility]) Vital Signs (Past 12 Hours) Vital Signs Temp Pulse Resp BP Pulse Ox 01/04/21 13:25 85 20 96 01/04/21 12:07 36.9 C 95 H 20 116/76 98 01/04/21 08:10 37.3 C 91 H 18 144/72 H 96 01/04/21 07:44 87 20 96 01/04/21 03:27 36.6 C 111 H 18 134/78 96 Laboratory Results Short CBC 01/03/21 01/04/21 Range/Units 19:03 05:44 WBC 16.78 H 17.32 H (4.8-10.8) K/uL Hgb 12.5 12.9 (12.0-16.0) g/dL Hct 36.8 L 39.3 (37-47) % Plt Count 211 245 (130-400) K/uL BMP 01/03/21 01/04/21 19:03 05:44 Sodium 139 138 Potassium 3.4 L 3.1 L Chloride 103 102 Carbon Dioxide 32 30 BUN 24 H 18 Creatinine 0.75 0.59 L Glucose 125 H 97 Calcium 8.3 L 8.3 L Cardiac Enzymes 01/03/21 Range/Units 19:03 Troponin I 0.016 (0-0.045) ng/ml Liver Function 01/03/21 Range/Units 19:03 Total Bilirubin 0.7 (0.2-1) mg/dl AST 37 (15-37) U/L ALT 28 (12-78) U/L Alkaline Phosphatase 78 (45-117) U/L Albumin 2.5 L (3.4-5.0) gm/dl Urine 01/03/21 Range/Units 21:03 Urine Color Yellow Urine Appearance Clear (Clear) Urine pH 6.0 (4.5-7.5) Ur Specific [place] 1.024 (1.000-1.030) Urine Protein 2+ H (Negative) Urine Glucose (UA) Negative (Negative) (1) Pneumonia Laterality: bilateral Lung location: lower lobe of lung Pneumonia type: due to unspecified organism Qualified Code(s): J18.9 - Pneumonia, unspecified organism
[2021-01-05] MEDS: LEVALBUTEROL 1.25MG/0.5ML NEB INH SCH ×4 (00:32→19:00)
[2021-01-05] MEDS: IPRATROPIUM BROMIDE NEB SOLN 0.02% 2.5 ML VIAL INH SCH ×4 (00:32→19:00)
[2021-01-05] MEDS: LEVOTHYROXINE SODIUM 137 MCG TABLET PO SCH (05:29)
[2021-01-05] MEDS: cefTRIAXone SODIUM 1,000 MG in DEXTROSE 5% 50 ML IV SCH (07:55)
[2021-01-05] MEDS: FLUTICASONE/VILANTEROL 200/25MCG 14 PUFFS/INHALER INH SCH (07:56)
[2021-01-05] MEDS: MONTELUKAST SODIUM 10 MG TABLET PO SCH (07:56)
[2021-01-05] MEDS: clonazePAM 0.5 MG TAB PO SCH ×3 (07:56→17:21)
[2021-01-05 08:10] LABS: Basophils # (auto) 0.02 K/uL (0-0.2); Basophils % (auto) 0.2 %; Eosinophils # (auto) 0.06 K/uL (0-0.5); Eosinophils % (auto) 0.5 %; Hematocrit (blood only) 38.3 % (37-47); Hemoglobin 12.5 g/dL (12.0-16.0); Immature Granulocytes # (auto) 0.04 K/uL (0.00-0.02); Immature Granulocytes % (auto) 0.3 %; Lymphocytes # (auto) 2.11 K/uL (1.2-3.4); Mean Corpuscular Hemoglobin 29.2 pg (25-34); Mean Corpuscular Volume 89.5 fL (80-100); Mean Platelet Volume 10.3 fL (7.4-10.4); Monocytes # (auto) 1.81 K/uL (0.11-0.59); Monocytes % (auto) 13.7 %; Neutrophils # (auto) 9.18 K/uL (1.4-6.5); Neutrophils % (auto) 69.3 %; Platelet Count 261 K/uL (130-400); RDW Coefficient of Variation 13.9 % (11.5-14.5); RDW Standard Deviation 45.7 fL (36.4-46.3); Red Blood Count 4.28 M/uL (4.2-5.4); White Blood Count 13.22 K/uL (4.8-10.8)
[2021-01-05 08:16] LABS: Mean Corpuscular Hgb Conc 32.6 g/dL (32-36)
[2021-01-05] MEDS: DOXYCYCLINE HYCLATE 100 MG in DEXTROSE 5% 100 ML IV SCH ×2 (08:39→21:16)
[2021-01-05 08:43] LABS: Calcium 8.6 mg/dl (8.5-10.1); Creatinine Clr Calc Pharmacy 62.1 ml/min; Est GFR (African American) 102.3 ml/min; Est GFR (Non-African American) 88.3 ml/min
[2021-01-05 08:44] LABS: BUN Creatinine Ratio 22.1 (10-20); Potassium 3.2 mmol/L (3.5-5.1)
[2021-01-05] MEDS ORDERED: POTASSIUM CHLORIDE CRTAB 20 MEQ TABCR PO ONE (08:45)
--- NOTE | 2021-01-05 15:59 | Hospitalist Progress Note ---
Date of Service January 05, 2021 Assessment & Plan (1) Pneumonia: Plan: Patient is a 80 yr female who presents with shortness of breath, hypoxia secondary to pneumonia. Pneumonia Suspected Pulmonary edema Hypoxia CXR: Mild bilateral opacities and interstitial thickening. The findings favor an infectious process. Pulmonary edema could appear similar. Radiographic follow up is recommended. Possible trace bilateral left pleural effusions Normal Lactate, Procalcitonin Levels Received IV fluids on admission Continue Ceftriaxone, Doxycycline Day #3 Blood Cultures: No growth to date Nebs, Supplemental Oxygen as needed Wean off of oxygen as able H/O Asthma Continue Home inhalers Also on Nebs Consider Prednisone if necessary Hypokalemia Replace electrolytes as needed Hypothyroidism Elevated TSH, normal Free T4 Continue Levothyroxine Needs repeat thyroid function tests as outpatient H/O Breast cancer S/P Radiation and lumpectomy. CIELO Continue Klonopin DVT Px: Lovenox SQ Code Status Full Code DISPOSITION: PT, OT prior to discharge. Admission and Anticipated Discharge Date Admission Date: January 03, 2021 Subjective Patient is seen and examined at bedside No new complaints Leukocytosis trending down Low grade fever today Less cough, dyspnea Denies chest pain, nausea, abd pain Saturating well on 2L Review of Systems Review of Systems: All systems reviewed & are unremarkable except as noted in Subjective Physical Exam Physical Exam: Physical Exam: Vitals signs as noted above General Appearance:Elderly, Frail, Chronic ill appearing, Hearing impairment Head: normocephalic, Atraumatic Eyes: normal inspection, EOMI Neck: supple, Trachea midline Respiratory/Chest:Decreased breath sounds, CTA Cardiovascular: S1, S2, No murmur Abdomen/GI:Soft, Non tender, Bowel sounds present Extremities/Musculoskeletal:normal inspection, 1+ B/L LE edema Neurologic/Psych:AAOX3, grossly no focal neurological deficits Skin: normal color, warm Results & Data Results & Data ([facility]) Vital Signs (Past 12 Hours) Vital Signs Temp Pulse Resp BP Pulse Ox 01/05/21 15:28 37.8 C H 97 H 16 121/71 98 01/05/21 13:04 77 20 95 01/05/21 11:54 36.4 C L 86 16 114/71 95 01/05/21 07:49 36.9 C 88 16 117/76 96 01/05/21 07:38 77 20 95 01/05/21 05:28 36.8 C Laboratory Results Short CBC 01/05/21 01/05/21 Range/Units 07:30 07:55 WBC Cancelled 13.22 H Hgb Cancelled 12.5 Hct Cancelled 38.3 Plt Count Cancelled 261 BMP 01/05/21 07:30 Sodium 139 Potassium 3.2 L Chloride 102 Carbon Dioxide 30 BUN 13 Creatinine 0.58 L Glucose 106 H Calcium 8.6 (1) Pneumonia Laterality: bilateral Lung location: lower lobe of lung Pneumonia type: due to unspecified organism Qualified Code(s): J18.9 - Pneumonia, unspecified organism
[2021-01-05] MEDS ORDERED: clonazePAM 0.5 MG TAB PO PRN (17:20)
[2021-01-05] MEDS: FAMOTIDINE 20 MG TAB PO SCH (21:17)
[2021-01-06] MEDS: IPRATROPIUM BROMIDE NEB SOLN 0.02% 2.5 ML VIAL INH SCH ×4 (00:52→19:20)
[2021-01-06] MEDS: LEVALBUTEROL 1.25MG/0.5ML NEB INH SCH ×4 (00:52→19:20)
[2021-01-06] MEDS: ENOXAPARIN INJ 40 MG/0.4 ML SYR SQ SCH ×2 (02:43→22:51)
[2021-01-06] MEDS: LEVOTHYROXINE SODIUM 137 MCG TABLET PO SCH (06:12)
[2021-01-06 07:19] LABS: Basophils # (auto) 0.03 K/uL (0-0.2); Basophils % (auto) 0.3 %; Eosinophils # (auto) 0.11 K/uL (0-0.5); Eosinophils % (auto) 1.1 %; Hematocrit (blood only) 36.2 % (37-47); Hemoglobin 11.9 g/dL (12.0-16.0); Immature Granulocytes # (auto) 0.03 K/uL (0.00-0.02); Immature Granulocytes % (auto) 0.3 %; Lymphocytes # (auto) 1.58 K/uL (1.2-3.4); Lymphocytes % (auto) 15.6 %; Mean Corpuscular Hemoglobin 29.2 pg (25-34); Mean Corpuscular Hgb Conc 32.9 g/dL (32-36); Mean Corpuscular Volume 88.7 fL (80-100); Mean Platelet Volume 10.6 fL (7.4-10.4); Monocytes % (auto) 12.8 %; Neutrophils # (auto) 7.07 K/uL (1.4-6.5); Neutrophils % (auto) 69.9 %; Platelet Count 271 K/uL (130-400); RDW Coefficient of Variation 13.8 % (11.5-14.5); RDW Standard Deviation 45.5 fL (36.4-46.3); Red Blood Count 4.08 M/uL (4.2-5.4); White Blood Count 10.12 K/uL (4.8-10.8)
[2021-01-06 07:49] LABS: BUN Creatinine Ratio 21.8 (10-20); Calcium 8.6 mg/dl (8.5-10.1); Est GFR (African American) 106.7 ml/min; Est GFR (Non-African American) 92.1 ml/min; Magnesium 2.3 mg/dl (1.8-2.4); Potassium 3.4 mmol/L (3.5-5.1)
[2021-01-06] MEDS: MONTELUKAST SODIUM 10 MG TABLET PO SCH (07:58)
[2021-01-06] MEDS: ASPIRIN 81 MG ECTAB PO SCH (07:58)
[2021-01-06] MEDS: FLUTICASONE/VILANTEROL 200/25MCG 14 PUFFS/INHALER INH SCH (07:58)
[2021-01-06] MEDS: cefTRIAXone SODIUM 1,000 MG in DEXTROSE 5% 50 ML IV SCH (07:58)
[2021-01-06] MEDS: DOXYCYCLINE HYCLATE 100 MG in DEXTROSE 5% 100 ML IV SCH ×2 (08:38→20:02)
[2021-01-06] MEDS ORDERED: guaiFENesin/DEXTROM SYRUP 200MG/20MG 10ML UDC PO PRN (14:17)
--- NOTE | 2021-01-06 14:17 | Hospitalist Progress Note ---
Date of Service January 06, 2021 Assessment & Plan (1) Pneumonia: Plan: Patient is a 80 yr female who presents with shortness of breath, hypoxia secondary to pneumonia. Pneumonia -bibasilar infiltrate Suspected Pulmonary edema CXR: Mild bilateral opacities and interstitial thickening. The findings favor an infectious process. Pulmonary edema could appear similar. Radiographic follow up is recommended. Possible trace bilateral left pleural effusions Normal Lactate, Procalcitonin Levels Has been on IV Ceftriaxone and doxycycline Day #4 Blood Cultures: No growth to date and urine culture has been negative Clinically much better today H/O Asthma Continue Home inhalers Nebs, Supplemental Oxygen as needed Wean off of oxygen as able Ongoing cough-will give Robitussin-DM We will give a short course of prednisone orally Hypokalemia Replace electrolytes as needed Hypothyroidism Elevated TSH, normal Free T4 Continue Levothyroxine Needs repeat thyroid function tests as outpatient H/O Breast cancer S/P Radiation and lumpectomy. CIELO Continue Klonopin DVT Px: Lovenox SQ Code Status Full Code DISPOSITION: PT, OT prior to discharge. Admission and Anticipated Discharge Date Admission Date: January 03, 2021 Subjective 01/06/2021 The patient was seen and examined in medical telemetry unit She complains today of cough with exertional shortness of breath She denies any fever and/or chills, any abdominal pain nausea and or vomiting Still requires 2 L of oxygen via nasal cannula to maintain saturation Review of Systems Review of Systems: All systems reviewed and are unremarkable except as noted below Respiratory: Minimal shortness of breath at rest Physical Exam Physical Exam: Sitting on a chair with minimal shortness of breath and cough Constitutional: WD/WN, vitals as above Eyes: PERRL, conjunctivae normal, anicteric sclerae ENMT: external ear and nose normal, oropharynx normal Neck: trachea midline, no thyromegaly Respiratory: + respiratory distress (Mild respiratory distress at rest) and + cough; no labored breathing and no retractions Cardiovascular: Rate/Rhythm: regular rate and regular rhythm; not tachycardic Gastrointestinal (Abdomen): normal bowel sounds, soft, nontender, no hepatosplenomegaly Neurologic: PERRL, EOMI, accommodation nl, no face palsy, no dysarthria Psychiatric: A+Ox3, euthymic affect Lymphatic: no cervical or axillary lymphadenopathy Results & Data Results & Data ([facility]) Vital Signs (Past 12 Hours) Vital Signs Temp Pulse Pulse Resp BP Pulse Ox Pulse Ox 01/06/21 13:00 79 20 93 01/06/21 11:12 37.1 C 99 H 20 122/79 96 01/06/21 11:05 82 L 01/06/21 07:36 37.2 C 88 20 131/80 96 01/06/21 06:57 80 19 96 01/06/21 03:37 37.2 C 92 H 18 115/74 92 01/06/21 02:54 95 H Pulse Ox 01/06/21 13:00 01/06/21 11:12 01/06/21 11:05 94 01/06/21 07:36 01/06/21 06:57 01/06/21 03:37 01/06/21 02:54 Laboratory Results Short CBC 01/06/21 Range/Units 06:43 WBC 10.12 (4.8-10.8) K/uL Hgb 11.9 L (12.0-16.0) g/dL Hct 36.2 L (37-47) % Plt Count 271 (130-400) K/uL BMP 01/06/21 06:43 Sodium 139 Potassium 3.4 L Chloride 101 Carbon Dioxide 34 H BUN 11 Creatinine 0.51 L Glucose 105 H Calcium 8.6 Medications Administered Current Inpatient Medications Acetaminophen (Acetaminophen 325 Mg Tab) 650 mg PO Q4H PRN PRN Reason: Pain or Fever Stop: 02/02/21 22:32 Last Admin: 01/05/21 02:53 Dose: 650 mg Documented by: Albuterol (Albuterol Hfa 8 Gm Inhaler) 1 puffs INH Q6H PRN PRN Reason: Shortness Of Breath Stop: 02/02/21 22:32 Aspirin (Aspirin 81 Mg Ectab) 81 mg PO MoWeFr@[id number] [facility] Stop: 02/03/21 08:59 Last Admin: 01/06/21 07:58 Dose: 81 mg Documented by: Clonazepam (Clonazepam 0.5 Mg Tab) 0.5 mg PO QID PRN PRN Reason: Anxiety Stop: 02/02/21 22:32 Enoxaparin Sodium (Enoxaparin Inj 40 Mg/0.4 Ml Syr) 40 mg SQ Q24H [facility] Stop: 02/02/21 22:59 Last Admin: 01/06/21 02:43 Dose: Not Given Documented by: Famotidine (Famotidine 20 Mg Tab) 20 mg PO HS [facility] Stop: 02/02/21 22:32 Last Admin: 01/05/21 21:17 Dose: 20 mg Documented by: Fluticasone/Vilanterol (Fluticasone/Vilanterol 200/25mcg 14 Puffs/Inhaler) 1 puffs INH DAILY MILY Stop: 02/03/21 08:59 Last Admin: 01/06/21 07:58 Dose: 1 puffs Documented by: Doxycycline Hyclate 100 mg/ (Dextrose) 110 mls @ 50 mls/hr IV Q12H MILY Stop: 01/11/21 08:59 Last Infusion: 01/06/21 10:55 Dose: Infused Documented by: Ceftriaxone Sodium 1,000 mg/ (Dextrose) 60 mls @ 100 mls/hr IV DAILY [facility]; Protocol Stop: 01/11/21 08:59 Last Infusion: 01/06/21 08:35 Dose: Infused Documented by: Ipratropium [place] (Ipratropium [place] Neb Soln 0.02% 2.5 Ml Vial) 0.5 mg INH Q6R MILY Stop: 02/03/21 00:59 Last Admin: 01/06/21 12:59 Dose: 0.5 mg Documented by: Levalbuterol HCl (Levalbuterol 1.25mg/0.5ml Neb) 1.25 mg INH Q6R MILY Stop: 02/03/21 00:59 Last Admin: 01/06/21 12:59 Dose: 1.25 mg Documented by: Levothyroxine Sodium (Levothyroxine Sodium 137 Mcg Tablet) 137 mcg PO DAILYBB [facility] Stop: 02/03/21 06:29 Last Admin: 01/06/21 06:12 Dose: 137 mcg Documented by: Montelukast Sodium (Montelukast Sodium 10 Mg Tablet) 10 mg PO QAM [facility] Stop: 02/03/21 08:59 Last Admin: 01/06/21 07:58 Dose: 10 mg Documented by: Nitroglycerin (Nitroglycerin Sl 0.4 Mg/Tab Tab) 0.4 mg SL UD PRN PRN Reason: Chest Pain Stop: 02/02/21 22:32 Polyethylene Glycol (Polyethylene (Miralax) 17 Gm Pack) 17 gm PO DAILY PRN PRN Reason: Constipation Stop: 02/02/21 22:32 (1) Pneumonia Laterality: bilateral Lung location: lower lobe of lung Pneumonia type: due to unspecified organism Qualified Code(s): J18.9 - Pneumonia, unspecified organism
[2021-01-06] MEDS: FAMOTIDINE 20 MG TAB PO SCH (20:02)
[2021-01-07] MEDS: IPRATROPIUM BROMIDE NEB SOLN 0.02% 2.5 ML VIAL INH SCH ×3 (00:50→12:55)
[2021-01-07] MEDS: LEVALBUTEROL 1.25MG/0.5ML NEB INH SCH ×3 (00:50→12:55)
[2021-01-07] MEDS: LEVOTHYROXINE SODIUM 137 MCG TABLET PO SCH (06:09)
[2021-01-07] MEDS: cefTRIAXone SODIUM 1,000 MG in DEXTROSE 5% 50 ML IV SCH (08:09)
[2021-01-07] MEDS: MONTELUKAST SODIUM 10 MG TABLET PO SCH (08:13)
[2021-01-07] MEDS: FLUTICASONE/VILANTEROL 200/25MCG 14 PUFFS/INHALER INH SCH (08:14)
[2021-01-07] MEDS: DOXYCYCLINE HYCLATE 100 MG in DEXTROSE 5% 100 ML IV SCH (09:37)
[2021-01-07] MEDS ORDERED: POTASSIUM CHLORIDE CRTAB 20 MEQ TABCR PO STA (10:08)
--- NOTE | 2021-01-07 14:23 | Hospitalist Progress Note ---
Date of Service January 07, 2021 Assessment & Plan (1) Pneumonia: Plan: Patient is a 80 yr female who presents with shortness of breath, hypoxia secondary to pneumonia. Pneumonia -bibasilar infiltrate Suspected Pulmonary edema CXR: Mild bilateral opacities and interstitial thickening. The findings favor an infectious process. Pulmonary edema could appear similar. Radiographic follow up is recommended. Possible trace bilateral left pleural effusions Normal Lactate, Procalcitonin Levels Has been on IV Ceftriaxone and doxycycline Day #4 Blood Cultures: No growth to date and urine culture has been negative Clinically much better today Will be discharged home this afternoon on oral doxycycline and Keflex H/O Asthma Continue Home inhalers Nebs, Supplemental Oxygen as needed Wean off of oxygen as able Ongoing cough-will give Robitussin-DM She has been allergic to prednisone and will not be given Hypokalemia Replace electrolytes as needed Potassium normalized Hypothyroidism Elevated TSH, normal Free T4 Continue Levothyroxine Needs repeat thyroid function tests as outpatient H/O Breast cancer S/P Radiation and lumpectomy. CIELO Continue Klonopin DVT Px: Lovenox SQ Code Status Full Code DISPOSITION: PT, OT prior to discharge. Discharge home this afternoon with home PT and OT Admission and Anticipated Discharge Date Admission Date: January 03, 2021 Subjective 01/06/2021 The patient was seen and examined in medical telemetry unit She complains today of cough with exertional shortness of breath She denies any fever and/or chills, any abdominal pain nausea and or vomiting Still requires 2 L of oxygen via nasal cannula to maintain saturation 01/07/2021 The patient was seen and examined in medical telemetry unit She has been feeling much better and has had physical therapy She had 2 step O2 saturation test and required oxygen to be discharged Review of Systems Review of Systems: All systems reviewed and are unremarkable except as noted below Respiratory: Minimal shortness of breath at rest Physical Exam Physical Exam: Sitting on a chair with minimal shortness of breath and cough Constitutional: WD/WN, vitals as above Eyes: PERRL, conjunctivae normal, anicteric sclerae ENMT: external ear and nose normal, oropharynx normal Neck: trachea midline, no thyromegaly Respiratory: + respiratory distress (Mild respiratory distress at rest) and + cough; no labored breathing and no retractions Cardiovascular: Rate/Rhythm: regular rate and regular rhythm; not tachycardic Gastrointestinal (Abdomen): normal bowel sounds, soft, nontender, no hepatosplenomegaly Neurologic: PERRL, EOMI, accommodation nl, no face palsy, no dysarthria Psychiatric: A+Ox3, euthymic affect Lymphatic: no cervical or axillary lymphadenopathy Results & Data Results & Data ([facility]) Vital Signs (Past 12 Hours) Vital Signs Temp Pulse Pulse Pulse Pulse Pulse Pulse 01/07/21 12:55 68 01/07/21 11:47 36.4 C L 82 01/07/21 11:22 68 77 70 68 01/07/21 08:05 36.7 C 86 01/07/21 07:35 87 01/07/21 07:11 58 L 01/07/21 03:10 36.8 C 87 Resp Resp Resp Resp Resp BP Pulse Ox 01/07/21 12:55 16 95 01/07/21 11:47 20 112/73 95 01/07/21 11:22 20 22 20 20 01/07/21 08:05 18 105/67 91 01/07/21 07:35 01/07/21 07:11 18 91 01/07/21 03:10 24 116/69 96 Pulse Ox Pulse Ox Pulse Ox Pulse Ox 01/07/21 12:55 01/07/21 11:47 01/07/21 11:22 93 93 92 87 L 01/07/21 08:05 01/07/21 07:35 01/07/21 07:11 01/07/21 03:10 (1) Pneumonia Laterality: bilateral Lung location: lower lobe of lung Pneumonia type: due to unspecified organism Qualified Code(s): J18.9 - Pneumonia, unspecified organism
[2021-01-07] MEDS ORDERED: cefUROXime axetil 250 MG TABLET PO SCH (21:00)
[2021-01-07] MEDS ORDERED: DOXYCYCLINE HYCLATE 100 MG CAP PO SCH (21:00)
--- NOTE | 2021-01-08 07:39 | Discharge Summary ---
Date of Service January 08, 2021 Admission HPI Per Admitting Provider DICTATED BY: Jose Hadley MD DATE OF ADMISSION: 01/03/2021. CHIEF COMPLAINT: Shortness of breath and fever. HISTORY OF PRESENT ILLNESS: A 80-year-old female with past medical history significant for hypothyroidism, hyperlipidemia, Hurthle cell adenoma of thyroid, chronic nonspecific lung disease, moderate persistent asthma with a complication of rhinitis, reflux esophagitis, GERD, generalized osteoarthrosis, migraine, benign paroxysmal vertigo, personal history of malignant neoplasm of breast, history of colonic polyp, generalized anxiety disorder, history of novel coronavirus disease who lives with her , presents with shortness of breath and fever. The symptoms started since last Monday, getting worse, once in a while she brings up greenish phlegm. That is the reason she came to the ER and her oxygen sats were 76% in the ER. On 4 liters, she is saturating above 90%. Somewhat tachycardic. Currently resting comfortably.Somewhat hard of hearing. Her [id number] and are in the room who helped with the history. The patient seems comfortable, answering appropriately, but somewhat hard of hearing. She is sometimes also getting chest heaviness because of her ongoing shortness of breath. She has some headache now, vision is okay. Has some sore throat. Her appetite is down in the last 2 days. No difficulty swallowing. No abdominal pain. Has some mild back pain since the last 2 days. No leg pains. No neck pain. No burning micturition, no black stools or blood in stools. Admission Exam Per Admitting Provider GENERAL: The patient is of moderate build, not in acute distress. VITAL SIGNS: T-max 39.1, pulse 98, respiratory rate 26, blood pressure 117/63, oxygen saturation of 76% on room air, 98% on 4 liters. HEENT: Pupils equal, round and reactive to light. Oral mucosa moist. NECK: No JVD, no neck masses. CARDIOVASCULAR: S1 and S2 heard. Regular rhythm. No murmur, no gallop. RESPIRATORY SYSTEM: Normal AP diameter. No accessory muscle use. No wheezing, no crackles. ABDOMEN: Soft, bowel sounds present, nontender, no distention. CENTRAL NERVOUS SYSTEM: Cranial nerves II-XII grossly intact, nonfocal. EXTREMITIES: No edema, no erythema. Principal Diagnosis Exacerbation of asthma ,pneumonia, hypothyroidism, generalized anxiety disorder Discharge Exam Constitutional WD/WN, vitals as above Eyes PERRL, conjunctivae normal, anicteric sclerae ENMT external ear and nose normal, oropharynx normal Neck trachea midline, no thyromegaly Respiratory + respiratory distress (Mild respiratory distress at rest) and + cough; no labored breathing and no retractions Cardiovascular Rate/Rhythm: regular rate and regular rhythm; not tachycardic Gastrointestinal (Abdomen) normal bowel sounds, soft, nontender, no hepatosplenomegaly Neurologic PERRL, EOMI, accommodation nl, no face palsy, no dysarthria Psychiatric A+Ox3, euthymic affect Lymphatic no cervical or axillary lymphadenopathy Discharge Data Allergies Allergy/AdvReac Type Severity Reaction Status Date / Time iodine Allergy Severe ORAL AND Verified 01/03/21 20:49 FACIAL SWELLING methadone Allergy Severe Shakiness Verified 01/03/21 20:49 propoxyphene Allergy Severe Shakiness Verified 01/03/21 20:49 shellfish derived Allergy Severe ORAL AND Verified 01/03/21 20:49 FACIAL SWELLING clarithromycin Allergy Unknown unknown Verified 01/03/21 20:49 prednisone Allergy Unknown Shakiness Verified 01/03/21 20:49 Serotonin 5HT-3 Antagonists Allergy Unknown Anxiety Verified 01/03/21 20:49 morphine AdvReac Unknown LIGHTHEADED Verified 01/03/21 20:49 Consultations 01/03/21 19:57 ED Decision to Admit Stat Hospital Course (1) Pneumonia: Patient is a 80 yr female who presents with shortness of breath, hypoxia secondary to pneumonia. Pneumonia -bibasilar infiltrate Suspected Pulmonary edema CXR: Mild bilateral opacities and interstitial thickening. The findings favor an infectious process. Pulmonary edema could appear similar. Radiographic follow up is recommended. Possible trace bilateral left pleural effusions Normal Lactate, Procalcitonin Levels Has been on IV Ceftriaxone and doxycycline Day #4 Blood Cultures: No growth to date and urine culture has been negative Clinically much better today Will be discharged home this afternoon on oral doxycycline and Keflex H/O Asthma Continue Home inhalers Nebs, Supplemental Oxygen as needed Wean off of oxygen as able Ongoing cough-will give Robitussin-DM She has been allergic to prednisone and will not be given Hypokalemia Replace electrolytes as needed Potassium normalized Hypothyroidism Elevated TSH, normal Free T4 Continue Levothyroxine Needs repeat thyroid function tests as outpatient H/O Breast cancer S/P Radiation and lumpectomy. CIELO Continue Klonopin DVT Px: Lovenox SQ Code Status Full Code DISPOSITION: PT, OT prior to discharge. Discharge home this afternoon with home PT and OT Total Time Total Time Spent Total Time Spent (In Minutes): 45 minutes Discharge Plan Discharge Items Patient Disposition: Home - Home Health Services Reason For Visit: ILLNESS Discharge Diagnosis: Exacerbation of asthma ,pneumonia, hypothyroidism, generalized anxiety disorder Condition on Discharge: Good Activity: Resume your previous activity Activity Comment: Will need PT and OT as an outpatient Non-emergency contact: Primary Care Provider Call non-emergency contact if: you have any medication questions and your symptoms worsen Follow-up/Referrals: Umair Gillis, [Primary Care Provider] - (Date & Time 01/13/2021 10:20 AM Provider Iris Gusman PA-C Department [facility] ) Diet: Heart Healthy Diet Texture: Dental soft (bite-sized) Addtl Attending Provider Instructions: Please take extra precaution to avoid fall Use oxygen at a rate of 2 L/min continuously, at rest and with ambulation Please finish the course of antibiotic You will have home physical therapy Clonazepam must be taken as less as possible and only with anxiety symptoms as needed not regularly as before to avoid confusion and drowsiness. Pending Studies at Discharge: No Stand-Alone Forms: [facility], Smoking Cessation Medications and DC Order Prescriptions: New doxycycline hyclate 100 mg Capsule 100 mg PO BID 5 Days Qty: 10 RF: 0 cephalexin 500 mg capsule 500 mg PO BID 5 Days Qty: 10 RF: 0 Lactinex 1 million cell tablet,chewable 1 tab PO BID Qty: 30 RF: 0 Continued montelukast 10 mg Tablet 10 mg PO QAM RF: 0 fluticasone propion-salmeterol [Advair Diskus] 250-50 mcg/dose Blister With Device 1 inh INHALATION BID RF: 0 albuterol sulfate 90 mcg/actuation Hfa Aerosol Inhaler 1 puff INHALATION Q6H PRN (Reason: Shortness Of Breath) RF: 0 levothyroxine 137 mcg Tablet 137 mcg PO QAM RF: 0 albuterol sulfate 2.5 mg /3 mL (0.083 %) solution for nebulization 2.5 mg inhalation TID RF: 0 aspirin 81 mg Tablet,Delayed Release (Dr/Ec) 81 mg PO 3XWK RF: 0 famotidine 20 mg Tablet 20 mg PO HS RF: 0 Changed clonazepam 0.5 mg Tablet 0.5 mg PO TID PRN (Reason: Anxiety) Qty: 0 RF: 0 Discharge Orders: Discharge Order (Routine); Ordered 01/07/21 Ordered By: Kristy Lake Admission Data Admit Date/Time: 01/03/21 20:43 Attending Provider: Kristy Lake Admit Provider: Jose Hadley Primary Care Provider: Umair Gillis Other Providers: Jose Hadley ; Tai Ozuna ; [facility] Other Interventions: Discharge Summary Assessment (RN) Last Done: 01/07/21 14:50 Home Health Attestation I certify that this patient is under my care and that I, or a physicians assistant quality manager working with me, had a face to-face encounter that meets the home health [id number] encounter requirements with this patient. The encounter with the patient was in whole, or in part, for the following medical condition, which is the primary reason for home health care (list medical condition): I certify that, based on my findings, the following services are medically necessary home health services: My clinical findings support the need for the above services because: OT Assess ADL Status and Restore Function w ADLs PT Assessment for Endurance / Balance / Strength Skilled Nsg Assessment Further, I certify that my clinical findings support that this patient is homebound (i.e. absences from home require considerable and taxing effort and are for medical reasons or [facility] or infrequently or of short duration when for other reasons) because: Certification for Home Health Services: Based on the above findings, I certify that this patient is confined to the home and needs intermittent usp care, physical therapy and/or speech therapy or continues to need occupational therapy. The patient is under my care, and I have initiated the establishment of the plan of care. This patient will be followed by a physician who will periodically review the plan of care.
--- NOTE | 2021-01-21 09:41 | Coding Query ---
CODING QUERY To promote full compliance with coding requirements relating to patient care, provider participation is requested in all cases of public service representative uncertainty. Please assist us with the question(s) below: Coding Question(s): Pulmonary Edema is documented throughout the record and on Discharge Summary. Please specify below, in your clinical opinion regarding pulmonary edema. ( ) likely Acute Pulmonary Edema was monitored and/or treated during this admission ( ) likely Chronic Pulmonary Edema or Unspecified Pulmonary Edema was monitored and/or treated during this admission ( + ) Pulmonary Edema was not monitored and/or treated during this admission.- That was radiological interpretation and I do not agree with it. ( ) Other: Please Specify Physician's Response(s): Thank you Naima Gillis Principal Diagnosis: "that condition established after study, to be chiefly responsible for occasioning the admission of the patient to the hospital for care." Co-Existing Principal Diagnosis: "when two or more diagnoses equally meet the criteria for principal diagnosis as determined by the circumstances of admission, diagnostic work up, and/or therapy provided, and the Alphabetic Index, Tabular List, or another coding guideline does not provide sequencing direction, any one of the diagnoses may be sequenced first." "When the physician has documented what appears to be a current diagnosis in the body of the record, but has not included the diagnosis in the final diagnostic statement, the physician should be asked whether the diagnosis should be added." (Source Coding [facility] 2 QTR90. p3-4) JESI
--- NOTE | 2021-01-21 09:44 | Coding Query ---
PRESENT ON ADMISSION QUERY To promote full compliance with coding requirements relating to pateint care, physician participation is requested in all cases of loan review officer uncertainty. Please assist us with the question(s) below: Please place an X within the parenthesis (x). The following diagnosis listed in this patient's medical record require physician assistance to determine if they were present on admission (POA) or not. Please advise for each diagnosis whether it was present on admission, not present on admission, or if it was clinically undetermined. 1. EXACERBATION OF ASTHMA (Exacerbation of the asthma is documented on Discharge Summary) (+ ) Present On Admission ( ) Not Present On Admission ( ) Clinically Undetermined That was the final diagnosis. The patient came in with SOD and noted to have bibasilar infiltrate. Thank you Naima Gillis *Definition of the present on admission (POA)-Present on admission is defined as present at the time the order for inpatient admission occurs. Conditions that develop during an outpatient encounter prior to a written order for inpatient admission (including emergency department, observation, or outpatient surgery) are considered present on admission. JESI
== END 2021-01-07 15:35 | disposition home health service (06) | DRG 194 ==
LOC: ED 17:19 → SUATTDRO 20:43 → 2N 20:43

== ENCOUNTER 2024-06-09 16:10 | Inpatient (IN) ==
--- OUTSIDE RECORDS SUMMARY | 2024-06-09 16:18 | External Medical Summary | Summary of Care ---
Author Name Unknown Organization [facility] [address] [facility] [address] Phone [phone] Care Team Providers Care Adventure Education Teacher Name Role Phone ChadwickUmair smith Primary Care Provider [phone] Reason for Visit * Reason Onset Date Comments Test Results 04/26/202404/26 phone just rang no answering machine Encounter Details Date Type Department Care Team (Late st Contact Info) Description 04/26/2024 Telephone Family Practice [facility] [address] [facility] [place] [address] Alissa Mccoy DO 200 [place] [address] Test Results (04/26 phone just rang no answ... Allergies Active Allergy Reactions Criticality Noted Date Comments Amoxicillin 08/21/2002 shanon Clarithromycin Unknown 10/26/1999 Iodine 01/20/2004 anaphy Morphine Neuro complications (Please comment) 05/27/2003 shanon Cefdinir Other (Please comment) Medium 04/21/2016 Headache, restless Prednisone Unknown 06/16/2010 Propoxyphene Other (Please comment) 10/26/1999 "knocks me out" Propoxyphene Hcl 04/24/2000 change in mental status Pseudoephedrine Unknown 09/16/2009 Serotonin Reuptake Inhibitors (Ssris) 03/21/2001 Celexa nervousshanon documented as of this encounter (statuses as of 04/30/2024) Medications ASPIRIN 81 MG PO TABSIndications:ta kes 3x a week Take by mouth. Indications: takes 3x a week Active triamcinolone acetonide (ARISTOCORT) 0.1 % cream Apply topically to affected area 2 times a day. To affected area. 60 g 5 8 Active oxygen IN GASIndications:ILD (interstitial lung disease) ([facility]),Moderate persistent asthma without complication,Chron ic respiratory failure with hypoxia ([facility]) Use 2 LPM with exertion. 1 Each 2 Active Loratadine 10 MG Oral Tablet (Claritin)Indicati ons:Seasonal allergic rhinitis, unspecified trigger Take by mouth 1 Tablet in the morning. 30 Tablet 11 2 Active Pantoprazole Sodium 40 MG Oral Tablet Delayed Release (Protonix)Indicati ons:Gastroesophage al reflux disease without esophagitis Take 1 Tablet by mouth in the morning. 30 Tablet 11 2 Active Levalbuterol HCl 0.63 MG/3ML Inhalation Nebulization Solution (Xopenex)Indicatio ns:Moderate persistent asthma without complication Inhale 3 mL via nebulizer every 4 hours as needed for Wheezing. 75 mL 12 3 Active Rosuvastatin Calcium 20 MG Oral Tablet (Crestor)Indicatio ns:Dyslipidemia, goal LDL below 100 Take 1 Tablet by mouth in the morning. 90 Tablet 3 3 Active Levalbuterol Tartrate 45 MCG/ACT Inhalation Aerosol (Xopenex HFA)Indications:CO PD, group C, by GOLD 2017 classification ([facility]),Chronic diastolic CHF (congestive heart failure) ([facility]),Moderate persistent asthma without complication Inhale 1 Puff by mouth every 4 hours as needed for Wheezing. 15 g 12 3 Active Ventolin HFA 108 (90 Base) MCG/ACT Inhalation Aerosol Solution Inhale 2 Puffs by mouth every 4 hours as needed for Wheezing. 18 g 3 3 Active Furosemide 40 MG Oral Tablet (Lasix)Indications :Chronic diastolic CHF (congestive heart failure) ([facility]) Take one tablet in the morning and one in the mid afternoon 60 Tablet 11 4 Active Amitriptyline HCl 25 MG Oral Tablet (Elavil)Indication s:CIELO (generalized anxiety disorder) Take 1 Tablet by mouth at bedtime. 30 Tablet 5 4 Active Budesonide 0.5 MG/2ML Inhalation Suspension (Pulmicort)Indicat ions:Moderate persistent asthma without complication,ILD (interstitial lung disease) ([facility]) Inhale 0.5 mg via nebulizer in the morning and 0.5 mg before bedtime. Dx J 44.9, J 84.9, J 45.40 Bill under medicare part B. 360 mL 3 4 Active Levothyroxine Sodium 112 MCG Oral Tablet (Levoxyl) Take 1 Tablet by mouth in the morning. (at least 30 min prior to breakfast or other meds). 90 Tablet 1 4 Active Arformoterol Tartrate 15 MCG/2ML Inhalation Nebulization Solution (Brovana)Indicatio ns:Moderate persistent asthma without complication Inhale 15 mcg by mouth in the morning and 15 mcg before bedtime. 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 10/07/2021 Chronic diastolic CHF (congestive heart failure) 02/19/2021 H/O therapeutic radiation 01/13/2021 Benign paroxysmal vertigo 08/24/2020 History of 2019 novel coronavirus disease (COVID -19) 07/01/2020 Rhinitis, nonallergic 04/30/2020 Moderate persistent asthma without complication 06/21/2019 Gastroesophageal reflux disease without esophagi tis 06/21/2019 CIELO (generalized anxiety disorder) 03/28/2019 History of colonic polyps 09/29/2013 Overview (09/29/2013): 09/26/13: 4 mm polyp descending colon, internal hemorrhoids, repeat 5 years Hurthle cell adenoma of thyroid 08/30/2013 DYSLIPIDEMIA, GOAL TO BE DETERMINED 06/01/2009 Overview (06/01/2009): Per Lipid Taxonomy. Personal history of malignant neoplasm of breast 12/23/2002 GENERAL OSTEOARTHROSIS Hypothyroidism Migraine documented as of this encounter (statuses as of 04/30/2024) Resolved Problems Problem Noted Date Diagnosed Date Resolved Date COPD, group C, by GOLD 2017 classification 11/28/2022 08/03/2023 Overview: Per COPD GOLD Classification COPD exacerbation 09/19/2022 03/14/2023 Chronic respiratory failure with hypoxia, on home oxygen therapy 01/13/2021 07/07/2021 Migraine variant 06/21/2019 08/05/2022 Viral URI with cough 06/09/2019 020 Kidney disease, chronic, sta ge III (GFR 30-59 ml/min) 05/04/2015 12/16/2016 Overview: Per CKD protocol #1 Neoplasm of uncertain behavior of skin 12/26/2013 01/23/2019 History of breast cancer 08/25/2011 Finding of region of thorax 09/22/2010 09/24/2018 Overview (03/16/2011): CT 09/2010 infiltrate of the RML and TANGELA, CT 02/2011 improvement in RML/TANGELA reflecting an inflammatory process, RUL nodule stable since 2003 Lung field abnormal 02/24/2010 03/31/20 11 Umbilical hernia 07/04/2005 01/23/2019 ADVANCE DIRECTIVE INFORMATION 11/23/2004 03/31/2011 Overview (10/04/2005): No, Advance Directive brochure given to patient at a previous visit. Swelling, mass, or lump in chest 12/18/2003 03/16/2011 Overview (01/08/2004): unique lung mass seen on CT scan, RUL mass most promient Follow-up examination, follo wing other surgery 06/09/2003 03/07/2017 Asthma with severity to be determined 12/23/2002 06/13/2012 Overview (09/28/2015): 04/25/12: Moderate obstructive lung disease with moderate Gold disease severity score ICD-10 update of inactive term Asthma, moderate persistent 12/23/2002 01/10/2018 Overview: PER PROVIDER. ASTHMA, MODERATELY SEVERE 04/25/12: Moderate obstructive lung disease with moderate Gold disease severity score Reflux esophagitis 05/24/2001 2 SEBACEOUS CYST scalp 03/12/2001 018 Mixed dyslipidemia 9 Overview (06/01/2009): Per Lipid Taxonomy. MALIGN NEOPL BREAST NOS 11/2014 documented as of this encounter (statuses as of 04/30/2024) Immunizations Name Administration Dates Next Due COVID-19 mRNA, LNP-s, No Pre serve, 2-Dose Series ([employer]) 06/15/2021,08/14/2020,07/23/2020 Pneumococcal Conjugate Vacc, 13 Valent (Prevnar) 10/22/2014 Pneumococcal Polysaccharide PPV23 (Pneumovax) 04/25/2012 Season Influenza, Quad, PF, Adjuvanted, 65+ Yrs, IM (FLUAD) 04/15/2020 Seasonal Influenza Vac., MDV , IM, 0.5 mL (Fluzone) 04/02/2014,03/15/2013,03/13/2012,03/31,03/10/2010,02/27/2009,03/27/2008 ,06/27/2007,06/01/2006 Seasonal Influenza Virus Vac cine, Unspecified Formulation 04/15/2020,02/27/2019,03/20/2018,03/28,06/01/2016,04/02/2014,03/15/2013 ,03/13/2012,03/31/2011,03/10/2010,02/17,03/27/2008,06/27/2007, 6,04/11/2005,06/16/2004,05/08/2003, Seasonal Influenza, High Dos e, Trivalent, PF, IM (Fluzone HD) 03/05/2024,03/28/2017 Seasonal Influenza, PF, 6 M & above, IM , (FluLaval or Fluzone) 02/27/2019,03/20/2018 Seasonal Influenza, Quadriva lent Hd (Fluzone Hd) 03/14/2023,04/08/2022,04/06/2021 Seasonal Influenza, Quadriva lent, No Preserve, IM 06/01/2016,03/31/2015 TD - Tetanus/Diptheria (ADULT) 02/09/2008 TDAP (age 10 and older)(Boostrix) 10/03/2022,12/2014,08/30/2013 documented as of this encounter Social History Tobacco Use Types Packs/Day Years Used Date Smoking Tobacco: Never Smokeless Tobacco: Never Comments:No passive smoke ex posures Alcohol Use Standard Drinks/Week Comments No 0 (1 standard drink = 0.6 oz pur e alcohol) PHQ-2 Answer Date Recorded PHQ Adult Total Score 3 11/22/2021 Comments No Sex and Gender Information Value Date Recorded Sex Assigned at Female 09/24/2018 12:08 PM EDT Legal Sex Female 5:01 AM EST Gender Identity Female 09/24/2018 12:08 PM EDT Sexual Orientation Straight 09/24/2018 12 :08 PM EDT 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 Umair Gillis. * Telephone Encounter - Lissette Walters CCMA - 04/26/2024 10:32 AM EST Tried calling patient regarding message below phone just rang no answering machine * Telephone Encounter - Alissa Mccoy DO - 04/26/2024 10:07 AM EST Please call: Xray showed a lot of gas. How are you feeling? Recommend avoiding gassy foods, and trying gas X over the counter, treat any constipation with water, fiber, colace, miralax if needed Alissa Mccoy DO documented in this encounter Plan of Treatment Upcoming Encounters Date Type Department Care Team (Late st Contact Info) Description 04/30/2024 4:00 PM EST Office Visit [facility] [address] [place] [address] Umair Gillis, DO [address] [place] [address] 05/14/2024 10:30 AM EST Office Visit Cardiology, [facility] [address] [place] [address] Amber Dockery PA-C [address] [place] [address] 05/15/2024 1:00 PM EST Office Visit [facility] [address] [place] [address] Umair Gillis, DO [address] [place] [address] 07/24/2024 12:50 PM EST Office Visit Dermatology [facility] [place] [address] [facility] [place] [address] Bela Nevarez PA-C [address] [facility] [place] [address] 10/09/2024 1:40 PM EDT Office Visit Pulmonary Medicine, [facility] [address] [place] [address] Jt Leon MD [address] [place] [address] Scheduled Procedures Name Priority Associated Diagnoses Date/Ti me COLONOSCOPY FLEXIBLE PROXIMAL DIAGNOSTIC Recall History of colon polyps Health Maintenance Due Date Last Done Comments Alpha-1 Antitrypsin 1960 Zoster Vaccines (1 of 2) 1992 DXA Scan 01/17/2019 01/18/2012, 06/2011, 10/21/2008, Additional history exists Adult Wellness Visit 11/22/2022 11/22/2021 Depression Screening 11/22/2022 11/22/2021 Colonoscopy 02/01/2024 01/31/2019, 01/17, 09/26/2013, Additional history exists COVID-19 Vaccine ( - 2023- season) 2024 06/15/2021, 08/14/2020, 07/23/2020 O2 ASSESSMENT COMPLETED IN PAST YEAR FOR COPD 04/11/2025 04/11/2024 TSH 04/26/2025 04/26/2024, 02/18, 11/29/2021, Additional history exists DTap/Tdap Vaccines (4 - Td or Tdap) 10/03/2032 10/03/2022, 04/25/2015, 08/30/2013, Additional history exists Pneumococcal Vaccine: 65+ Years Completed 10/22/2014, 04/25/2012, 04/11/2002 RETIRED - COLONOSCOPY-EVERY 5 YRS AGES 18-100 Discontinued 01/31/2019, 01/31/2019, 09/26/2013, Additional history exists Influenza Vaccine (FLU shot) Completed 03/05/2024, 03/05/2024, 03/14/2023, Additional history exists HPV (Gardasil) Vaccine Aged Out No lo nger eligible based on patient's age to complete this topic Hepatitis B Vaccine Aged Out No longe r eligible based on patient's age to complete this topic MENINGOCOCCAL (MENACTRA/MENVEO) Aged Out No longer eligible based on patient's age to complete this topic documented as of this encounter Medical Devices Implanted Type Area Well Flow Operator Device Identifier Shelf Expiration Date Model / Serial / Lot Clip Quick 2.8mm 230cm - [id number] Implanted:Qty: 2 on 01/31/2019 by Rebecca Ayala DO at [facility]COPY [facility] [employer] 06/18/2021 [id number] / documented as of this encounter Care Teams Adventure Education Teacher Relationship Specialty Start Date End Date Umair Gillis DO [address] [facility] [place] [address] PCP - General Family Medicine 12/16/16 documented as of this encounter
--- OUTSIDE RECORDS SUMMARY | 2024-06-09 16:18 | External Medical Summary | Summary of Care ---
Author Name Unknown Organization [facility] Address [address] [facility] [place] [address] Phone [phone] Care Team Providers Care Finished Goods Planner Name Role Phone Umair Gillis Primary Care Provider [phone] Reason for Visit * Reason Onset Date Comments Test Results 04/11/2024 Encounter Details Date Type Department Care Team (Late st Contact Info) Description 04/11/[address] [facility] [address] [facility] [place] [address] Alissa Mccoy DO [address] [facility] [place] [address] Test Results Allergies Active Allergy Reactions Criticality Noted Date Comments Amoxicillin 08/21/2002 shanon Clarithromycin Unknown 10/26/1999 Iodine 01/20/2004 anaphy Morphine Neuro complications (Please comment) 05/27/2003 shanon Cefdinir Other (Please comment) Medium 04/21/2016 Headache, restless Prednisone Unknown 06/16/2010 Propoxyphene Other (Please comment) 10/26/1999 "knocks me out" Propoxyphene Hcl 04/24/2000 change in mental status Pseudoephedrine Unknown 09/16/2009 Serotonin Reuptake Inhibitors (Ssris) 03/21/2001 shanon Ramirez documented as of this encounter (statuses as of 04/30/2024) Medications ASPIRIN 81 MG PO TABSIndications:ta kes 3x a week Take by mouth. Indications: takes 3x a week Active triamcinolone acetonide (ARISTOCORT) 0.1 % cream Apply topically to affected area 2 times a day. To affected area. 60 g 5 8 Active oxygen IN GASIndications:ILD (interstitial lung disease) ([facility]),Moderate persistent asthma without complication,Chron ic respiratory failure with hypoxia ([facility]) Use 2 LPM with exertion. 1 Each [...] PD, group C, by GOLD 2017 classification ([facility]),Chronic diastolic CHF (congestive heart failure) ([facility]),Moderate persistent asthma without complication Inhale 1 Puff by mouth every 4 hours as needed for Wheezing. 15 g 12 3 Active Ventolin HFA 108 (90 Base) MCG/ACT Inhalation Aerosol Solution Inhale 2 Puffs by mouth every 4 hours as needed for Wheezing. 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 Umair Gillis. * Telephone Encounter - Marivel Laura RN - 04/12/2024 1:51 PM EDT Attempted Phone Call First Attempt Call Outcome Unable to Leave Message * Telephone Encounter - Alissa Mccoy DO - 04/11/2024 4:53 PM EDT Please call- Your stomach and colon are full of gas- Try to take a probiotic twice a day and avoid gassy foods, can try gas X over the counter if you'd like. Chest xray is normal. documented in this encounter Plan of Treatment Upcoming Encounters Date Type Department Care Team (Late st Contact Info) Description 04/30/2024 4:00 PM EST Office Visit [facility] [address] [facility] [place] [address] Umair Gillis, DO [address] [facility] [place] [address] 05/14/2024 10:30 AM EST Office Visit Cardiology, [facility] [address] [place] [address] Amber Dockery PA-C [address] [place] [address] 05/15/2024 1:00 PM EST Office Visit [facility] [address] [place] [address] Umair Gillis, DO [address] [facility] [place] [address] 07/24/2024 12:50 PM EST Office Visit Dermatology [facility] [place] [address] [place] [address] Bela Nevarez PA-C [address] [facility] [place] [address] 10/09/2024 1:40 PM EDT Office Visit Pulmonary Medicine, [facility] [address] [place] [address] Jt Leon MD [address] [place] [id number] Scheduled Procedures Name Priority Associated Diagnoses Date/Ti me COLONOSCOPY FLEXIBLE PROXIMAL DIAGNOSTIC Recall History of colon polyps Health Maintenance Due Date Last Done Comments Alpha-1 Antitrypsin 1960 Zoster Vaccines (1 of 2) 1992 DXA Scan 01/17/2019 01/18/2012, 06/2011, 10/21/2008, Additional history exists Adult Wellness Visit 11/22/2022 11/22/2021 Depression Screening 11/22/2022 11/22/2021 Colonoscopy 02/01/2024 01/31/2019, 01/17, 09/26/2013, Additional history exists COVID-19 Vaccine ( season) 2024 06/15/2021, 08/14/2020, 07/23/2020 O2 ASSESSMENT [...] this encounter Medical Devices Implanted Type Area Fsr Device Identifier Shelf Expiration Date Model / Serial / Lot Clip Quick 2.8mm 230cm - [id number] Implanted:Qty: 2 on 01/31/2019 by Rebecca Ayala DO at ENDOSCOPY [facility] [employer] 06/18/2021 [id number] / / documented as of this encounter Care Teams Finished Goods Planner Relationship Specialty Start Date End Date Umair Gillis DO [address] [facility] [place] [address] PCP - General Family Medicine 12/16/16 documented as of this encounter
--- OUTSIDE RECORDS SUMMARY | 2024-06-09 16:18 | External Medical Summary ---
Author Name Unknown Address Unknown Organization K09:[facility] [place] [address] Laboratory Report Ordering Provider Test Date Status SOURAV MORRISON 04/26/2024 11:20:35 Final Observation Date Value Abnormality Reference (Units ) Status BUN 04/26/2024 11:20:35 23 Above high normal 6-20 (mg/dL) Final Creatinine 04/26/2024 11:20:35 0.9 0.5-1.0 (mg/dL) Final Glomerular filtration rate/1.73 sq M.predicted [Volume Rate/Area] in Serum, Plasma or Blood by Creatinine-based formula (CKD-EPI) 04/26/2024 11:20:35 69 >=60 (mL/min) Final eGFR is calculated based on the CKD-EPI 2020 equation. Sodium 04/26/2024 11:20:35 147 Above high normal 13 5-146 (mmol/L) Final Potassium 04/26/2024 11:20:35 4.2 3.5-5.1 (m mol/L) Final Cl 04/26/2024 11:20:35 107 98-107 (mm ol/L) Final CO2 04/26/2024 11:20:35 28 22-32 (mmo l/L) Final Anion gap 04/26/2024 11:20:35 12 7-15 (mmol /L) Final Glucose 04/26/2024 11:20:35 88 70-120 (mg /dL) Final Calcium 04/26/2024 11:20:35 9.6 8.4-10.2 ( mg/dL) Final Performing Location [facility] [place] [address]
--- OUTSIDE RECORDS SUMMARY | 2024-06-09 16:18 | External Medical Summary ---
Author Name Unknown Address Unknown Organization [id number]:[facility] [place] - [address] [place] [address] Laboratory Report Ordering Provider Test Date Status SOURAV MORRISON 04/26/2024 11:20:35 Final Observation Date Value Abnormality Reference (Units ) Status TSH 04/26/2024 11:20:35 26.90 Above high normal 0. 27-4.20 (uIU/mL) Final Performing Location [facility] - [address] [place] [address]
--- OUTSIDE RECORDS SUMMARY | 2024-06-09 16:18 | External Medical Summary | Summary of Care ---
Author Name Unknown Organization [facility] Address [address] [facility] [place] [address] Phone [phone] Care Team Providers Care String Laster Name Role Phone Umair Gillis DO Primary Care Provider Reason for Visit * Reason Comments Re-Check Encounter Details Date Type Department Care Team (Late st Contact Info) Description 04/30/2024 4:00 PM EST Office Visit Family [facility] [address] [facility] [place] [address] Umair Gillis DO [address] [facility] [place] [address] Asymptomatic menopause*; CIELO (generalized anxiety disorder); Acquired hypothyroidism; Moderate persistent asthma without complication; Chronic diastolic CHF (congestive heart failure) ([facility]); ILD (interstitial lung disease) ([facility]) Allergies Active Allergy Reactions Criticality Noted Date [...] as of this encounter (statuses as of 05/06/2024) Medications ASPIRIN 81 MG PO TABSIndications:t akes 3x a week Take by mouth. Indications: takes 3x a week Active triamcinolone acetonide (ARISTOCORT) 0.1 % cream Apply topically to affected area 2 times a day. To affected area. 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 1 Each 02/04/20 22 Active Loratadine 10 MG Oral Tablet (Claritin)Indicat ions:Seasonal allergic rhinitis, unspecified trigger Take by mouth 1 Tablet in the morning. 30 Tablet 11 04/21/20 22 Active Pantoprazole Sodium 40 MG Oral Tablet Delayed Release (Protonix)Indicat ions:Gastroesopha geal reflux disease without esophagitis Take 1 Tablet by mouth in the morning. 30 Tablet 11 06/07/20 22 Active Levalbuterol HCl 0.63 MG/3ML Inhalation Nebulization Solution (Xopenex)Indicati ons:Moderate persistent asthma without complication Inhale 3 mL via nebulizer every 4 hours as needed for Wheezing. 75 mL 12 08/03/19 23 Active Rosuvastatin Calcium 20 MG Oral Tablet (Crestor)Indicati ons:Dyslipidemia, goal LDL below 100 Take 1 Tablet by mouth in the morning. 90 Tablet 3 12/10/19 23 Active Levalbuterol Tartrate 45 MCG/ACT Inhalation Aerosol (Xopenex HFA)Indications:C OPD, group C, by GOLD 2017 classification ([facility]),Chronic diastolic CHF (congestive heart failure) ([facility]),Moderate persistent asthma without complication Inhale 1 Puff by mouth every 4 hours as needed for Wheezing. 15 g 12 01/07/20 23 Active Ventolin HFA 108 (90 Base) MCG/ACT Inhalation Aerosol Solution Inhale 2 Puffs by mouth every 4 hours as needed for Wheezing. 18 g 3 01/11/20 23 Active Furosemide 40 MG Oral Tablet (Lasix)Indication s:Chronic diastolic CHF (congestive heart failure) ([facility]) Take one tablet in the morning and one in the mid afternoon 60 Tablet 11 09/26/19 24 Active Budesonide 0.5 MG/2ML Inhalation Suspension (Pulmicort)Indica tions:Moderate persistent asthma without complication,ILD (interstitial lung disease) ([facility]) Inhale 0.5 mg via nebulizer in the morning and 0.5 mg before bedtime. Dx J 44.9, J 84.9, J 45.40 Bill under medicare part B. 360 mL 3 12/12/19 24 Active Arformoterol Tartrate 15 MCG/2ML Inhalation Nebulization Solution (Brovana)Indicati ons:Moderate persistent asthma without complication Inhale 15 mcg by mouth in the morning and 15 mcg before bedtime. 360 mL 3 01/02/20 24 Active clonazePAM 0.5 MG Oral Tablet (KlonoPIN)Indicat ions:CIELO (generalized anxiety disorder) TAKE 1/2 (ONE-HALF) TABLET BY MOUTH 4 TIMES DAILY NEEDED FOR ANXIETY 60 Tablet 3 03/12/20 24 Active Amitriptyline HCl 25 MG Oral Tablet (Elavil)Indicatio ns:CIELO (generalized anxiety disorder) Take 1 Tablet by mouth at bedtime. 30 Tablet 5 04/30/20 24 Active Levothyroxine Sodium 125 MCG Oral Tablet (Levoxyl) Take 1 Tablet by mouth in the morning. (at least 30 min prior to breakfast or other meds). 90 Tablet 3 04/30/20 24 Active Amitriptyline HCl 25 MG Oral Tablet (Elavil)Indicatio ns:CIELO (generalized anxiety disorder) Take 1 Tablet by mouth at bedtime. 30 Tablet 5 10/16/19 24 2023 Discontinued(R efill) Levothyroxine Sodium 112 MCG Oral Tablet (Levoxyl) Take 1 Tablet by mouth in the morning. (at least 30 min prior to breakfast or other meds). 90 Tablet 1 01/01/20 24 2023 Discontinued documented as of this encounter (statuses as of 05/06/2024) Active Problems Problem Noted Date Diagnosed Date [...] as of this encounter (statuses as of 05/06/2024) Resolved Problems Problem Noted Date Diagnosed Date [...] Per Lipid Taxonomy. 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 Not on file Not on file [employer]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 file Not on file [employer]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 file 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 Not on file Not on file documented as of this encounter Last Filed Vital Signs Vital Sign Reading Time Taken Comments Blood Pressure 138/76 04/30/2024 3:57 PM EST man ual Pulse 66 04/30/2024 3:57 PM EST Temperature 35.9 C (96.7 F) 04/30/2024 3:57 PM ES T Respiratory Rate 18 04/30/2024 3:57 PM EST Oxygen Saturation 100% 04/30/2024 3:57 PM EST 2L of O2 Inhaled Oxygen Concentration - - Weight 66.9 kg (147 lb 6.4 oz) 04/30/2024 3:57 P M EST Height - - Body Mass Index 31.95 04/04/2024 10:25 AM EDT documented in this encounter Progress Notes * Umair Gillis, DO - 04/30/2024 4:19 PM EST Subjective: Leela Villanueva is a 83 year old female. Chief Complaint Patient presents with Re-Check HPI: She was seen multiple times for cough. Put on abx. CXR found pneumonia and then came back clear after treatment. Swallowing study ordered by Dr. Chahal but not done. We started Elavil last time. Still waking up a lot at night. Takes it sometimes. Will try to take it more often. We discussed Pepcid last time. Clonazepam discussed. Thyroid medication increased. Blood work offered to recheck TSH in 2 months but she would rather wait until the next visit. 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 Indications: takes 3x a week triamcinolone acetonide (ARISTOCORT) 0.1 % cream Apply topically to affected area 2 times a day. Toaffected area. 60 g 5 oxygen IN GAS Use 2 LPM with exertion. 1 Each 0 Loratadine 10 MG Oral Tablet (Claritin) Take by mouth 1 Tablet in the morning. 30 Tablet 11 Pantoprazole Sodium 40 MG Oral Tablet Delayed Release (Protonix) Take 1 Tablet by mouth in the morning. 30 Tablet 11 Levalbuterol HCl 0.63 MG/3ML Inhalation Nebulization Solution (Xopenex) Inhale 3 mL via nebulizer every 4 hours as needed for Wheezing. 75 mL 12 Rosuvastatin Calcium 20 MG Oral Tablet (Crestor) Take 1 Tablet by mouth in the morning. 90 Tablet 3 Levalbuterol Tartrate 45 MCG/ACT Inhalation Aerosol (Xopenex HFA) Inhale 1 Puff by mouth every 4 hours as needed for Wheezing. 15 g 12 Ventolin HFA 108 (90 Base) MCG/ACT Inhalation Aerosol Solution Inhale 2 Puffs by mouth every 4 hours as needed for Wheezing. 18 g 3 Furosemide 40 MG Oral Tablet (Lasix) Take one tablet in the morning and one in the mid afternoon 60Tablet 11 Amitriptyline HCl 25 MG Oral Tablet (Elavil) Take 1 Tablet by mouth at bedtime. 30 Tablet 5 Budesonide 0.5 MG/2ML Inhalation Suspension (Pulmicort) Inhale 0.5 mg via nebulizer in the morning and 0.5 mg before bedtime. Dx J 44.9, J 84.9, J 45.40 Bill under medicare part B. 360 mL 3 Levothyroxine Sodium 112 MCG Oral Tablet (Levoxyl) Take 1 Tablet by mouth in the morning. (at least30 min prior to breakfast or other meds). 90 Tablet 1 Arformoterol Tartrate 15 MCG/2ML Inhalation Nebulization Solution (Brovana) Inhale 15 mcg by mouth in the morning and 15 mcg before bedtime. 360 mL 3 clonazePAM 0.5 MG Oral Tablet (KlonoPIN) TAKE 1/2 (ONE-HALF) TABLET BY MOUTH 4 TIMES DAILY NEEDED FOR ANXIETY 60 Tablet 3 No current facility-administered medications for this visit. Review of patient's allergies indicates: Allergen Reactions Omnicef [Cefdinir] Other (Please comment) Headache, restless Amoxicillin shaky Clarithromycin Unknown Iodine anaphy Morphine Neuro complications (Please comment) shaky Prednisone Unknown Propoxyphene Other (Please comment) "knocks me out" Propoxyphene Hcl change in mental status Pseudoephedrine Unknown Serotonin Reuptake Inhibitors (Ssris) Celexa nervous, shanon OBJECTIVE: BP 138/76 Comment: manual | Pulse 66 | Temp 35.9 C (96.7 F) (Tympanic) | Resp 18 | Wt 66.9 kg (147 lb 6.4 oz) | SpO2 100% Comment: 2L of O2 | BMI 31.95 kg/m | BSA 1.64 m Estimated body mass index is 31.95 kg/m as calculated from the following: Height as of 04/04/24: 1.447 m (4' 8.95"). Weight as of this encounter: 66.9 kg (147 lb 6.4 oz). BP Readings from Last 3 Encounters: 04/30/24 138/76 04/11/24 140/86 04/04/24 128/76 Wt Readings from Last 3 Encounters: 04/30/24 66.9 kg (147 lb 6.4 oz) 04/11/24 66.9 kg (147 lb 6.4 oz) 04/04/24 66.7 kg (147 lb) ROS: Negative except for above PHYSICAL EXAM: General: alert, healthy, and no distress Heart: regular rate & rhythm, no murmur, and no gallops Lungs: chest symmetric with normal AP diameter, no chest deformities noted, no chest wall tenderness, lungs clear to auscultation ASSESSMENT/Plan Asymptomatic menopause (Primary) - DEXA SCAN/BONE MINERAL AXIAL CIELO (generalized anxiety disorder) - Amitriptyline HCl 25 MG Oral Tablet (Elavil); Take 1 Tablet by mouth at bedtime. Acquired hypothyroidism Moderate persistent asthma without complication Chronic diastolic CHF (congestive heart failure) ([facility]) ILD (interstitial lung disease) (HCC) Other orders - Levothyroxine Sodium 125 MCG Oral Tablet (Levoxyl); Take 1 Tablet by mouth in the morning. (at least 30 min prior to breakfast or other meds). I spent a total of 30 minutes on the date of service in preparation, delivery, and documentation ofthe care provided to this patient, excluding any time spent on the performance of any procedure or separately billable services. We discussed how Elavil can help her sleep and anxiety. She'll try to be more regular with it. The above was discussed and understanding was expressed. Umair Gillis DO documented in this encounter Nursing Notes * Renetta Causey NA - 04/30/2024 3:58 PM EST Leela Villanueva presents for 6 month recheck. Patient denies any new concerns at this time. Medications & HM reviewed. Patient has been verbally educated on the need or importance of Shingles Vaccine and has declined topic(s). documented in this encounter Plan of Treatment Upcoming Encounters Date Type Department Care Team (Late st Contact Info) Description 05/14/2024 10:30 AM EST Office Visit Cardiology, [facility] [address] [place] [address] Amber Dockery PA-C [address] [place] [address] 05/15/2024 1:00 PM EST Office Visit Family Practice [facility] [address] [facility] [place] [address] Umair Gillis DO [address] [facility] [address] 07/24/2024 12:50 PM EST Office Visit Dermatology [facility] [address] [facility] [place] [address] Bela Nevarez PA-C [address] [facility] [place] [address] 10/09/2024 1:40 PM EDT Office Visit Pulmonary Medicine, [facility] [address] [place] [address] Jt Leon MD [address] [facility] [place] [address] 12/04/2024 1:00 PM EDT Office Visit Family Practice [facility] [place] [address] [facility] [place] [address] Umair Gillis DO [address] [facility] [place] [address] Scheduled Orders Name Type Priority Associated Diagnoses Orde r Schedule DEXA SCAN/BONE MINERAL AXIAL Medical Imaging Routine Asymptomatic menopause Ordered: 04/30/2024 Scheduled Procedures Name Priority Associated Diagnoses Date/Ti me COLONOSCOPY FLEXIBLE PROXIMAL DIAGNOSTIC Recall History of colon polyps Health Maintenance Due Date Last Done Comments Alpha-1 Antitrypsin 1960 Zoster Vaccines (1 of 2) 1992 DXA Scan 01/17/2019 01/18/2012, 0806/2011, 10/21/2008, Additional history exists Adult Wellness Visit 11/22/2022 11/22/2021 COVID-19 Vaccine ( season) 2024 06/15/2021, 08/14/2020, 07/23/2020 TSH 04/26/2025 04/26/2024, 02/18, 11/29/2021, Additional history exists Depression Screening 04/30/2025 04/30/2024 O2 ASSESSMENT COMPLETED IN PAST YEAR FOR COPD 04/30/2025 04/30/2024 DTap/Tdap Vaccines (4 - Td or Tdap) 10/03/2032 10/03/2022, 04/25/2015, 08/30/2013, Additional history exists Pneumococcal Vaccine: 65+ Years Completed 10/22/2014, 04/25/2012, 04/11/2002 Colonoscopy Discontinued 01/31/2019, 01/17, 09/26/2013, Additional history exists RETIRED - COLONOSCOPY-EVERY 5 YRS AGES 18-100 [...] this encounter Medical Devices Implanted Type Area Animal Nurse Device Identifier Shelf Expiration Date Model / Serial / Lot Clip Quick 2.8mm 230cm - [id number] Implanted:Qty: 2 on 01/31/2019 by Rebecca Ayala DO at ENDOSCOPY [facility] [employer] 06/18/2021 [id number] / / documented as of this encounter Visit Diagnoses Diagnosis Asymptomatic menopause- Primary CIELO (generalized anxiety disorder) Generalized anxiety disorder Acquired hypothyroidism Unspecified hypothyroidism Moderate persistent asthma without complication Unspecified asthma Chronic diastolic CHF (congestive heart failure) (HCC) Chronic diastolic heart failure ILD (interstitial lung disease) (HCC) Postinflammatory pulmonary fibrosis documented in this encounter Care Teams String Laster Relationship Specialty Start Date End Date Umair Gillis DO [address] [place] [address] PCP - General Family Medicine 12/16/16 documented as of this encounter
--- OUTSIDE RECORDS SUMMARY | 2024-06-09 16:18 | External Medical Summary ---
Author Name Unknown Address Unknown Organization [id number]:[facility] [place] [address] [place] [address] Laboratory Report Ordering Provider Test Date Status SOURAV MORRISON 04/26/2024 11:20:35 Final Observation Date Value Abnormality Reference (Units ) Status T4, Free 04/26/2024 11:20:35 0.7 Below low normal 0.9 -1.7 (ng/dL) Final Performing Location [facility] - [address] [place] [address]
--- OUTSIDE RECORDS SUMMARY | 2024-06-09 16:18 | External Medical Summary | Summary of Care ---
Author Name Unknown Organization [facility] Address [address] [facility] [address] Phone [phone] Care Team Providers Care Tree Planter Name Role Phone ChadwickUmair smith Primary Care Provider [phone] Reason for Visit * Reason Comments Outpatient Testing Encounter Details Date Type Department Care Team (Late st Contact Info) Description 04/26/2024 11:20 AM EST Laboratory Laboratory [facility] [address] [place] [address] [facility] [address] [facility] [place] [address] Chronic diastolic CHF (congestive heart failure) (HCC); Acquired hypothyroidism Allergies Active Allergy Reactions Criticality Noted Date [...] as of this encounter (statuses as of 04/26/2024) Medications ASPIRIN 81 MG PO TABSIndications:ta kes 3x a week Take by mouth. Indications: takes 3x a week Active triamcinolone acetonide (ARISTOCORT) 0.1 % cream Apply topically to affected area 2 times a day. To affected area. 60 g 5 8 Active oxygen IN GASIndications:ILD (interstitial lung disease) ([facility]),Moderate persistent asthma without complication,Chron ic respiratory failure with hypoxia ([facility]) Use 2 LPM with exertion. [...] PD, group C, by GOLD 2017 classification ([facility]),Chronic diastolic CHF (congestive heart failure) ([facility]),Moderate persistent asthma without complication Inhale 1 Puff by mouth every 4 hours as needed for Wheezing. 15 g 12 3 Active Ventolin HFA 108 (90 Base) MCG/ACT Inhalation Aerosol Solution Inhale 2 Puffs by mouth every 4 hours as needed for Wheezing. 18 g 3 3 Active Furosemide 40 MG Oral Tablet (Lasix)Indications :Chronic diastolic CHF (congestive heart failure) ([facility]) Take one tablet in the [...] as of this encounter (statuses as of 04/26/2024) Active Problems Problem Noted Date Diagnosed Date [...] History of colonic polyps 09/29/2013 Overview (09/29/2013): 4/10/14: 4 mm polyp descending colon, internal hemorrhoids, repeat 5 years Hurthle cell adenoma of thyroid 08/30/2013 DYSLIPIDEMIA, GOAL TO BE DETERMINED 06/01/2009 Overview (06/01/2009): Per Lipid Taxonomy. Personal history of malignant neoplasm of breast 12/23/2002 GENERAL OSTEOARTHROSIS Hypothyroidism Migraine documented as of this encounter (statuses as of 04/26/2024) Resolved Problems Problem Noted Date Diagnosed Date [...] as of this encounter (statuses as of 04/26/2024) Immunizations Name Administration Dates Next Due COVID-19 mRNA, LNP-s, No Pre serve, 2-Dose Series ([employer]) 06/15/2021,08/14/2020,07/23/2020 Pneumococcal Conjugate Vacc, 13 Valent (Prevnar) 10/22/2014 Pneumococcal Polysaccharide PPV23 (Pneumovax) 04/25/2012 Season Influenza, Quad, PF, Adjuvanted, 65+ Yrs, IM (FLUAD) 04/15/2020 Seasonal Influenza Vac., MDV , IM, 0.5 mL (Fluzone) 04/02/2014,03/15/2013,03/13/2012,03/31,03/10/2010,02/27/2009,03/27/2008 ,06/27/2007,06/01/2006 Seasonal Influenza Virus Vac cine, Unspecified Formulation 04/15/2020,02/27/2019,03/20/2018,03/28,06/01/2016,04/02/2014,03/15/2013 ,03/13/2012,03/31/2011,03/10/2010,02/17,03/27/2008,06/27/2007, 6,04/11/2005,06/16/2004,05/08/2003,10/ Seasonal Influenza, High Dos e, Trivalent, PF, [...] 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 file Not on file [employer]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 file 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 Not on file Not on file documented as of this encounter Plan of Treatment Upcoming Encounters Date Type Department Care Team (Late st Contact Info) Description 04/30/2024 4:00 PM EST Office Visit Family Practice [facility] [place] [address] [place], [place] [address] Umair Gillis DO [address] [place] [address] 05/14/2024 10:30 AM EST Office Visit Cardiology, [facility] [address] [facility] [place] [address] Amber Dockery PA-C [address] [place] [address] 05/15/2024 1:00 PM EST Office Visit [facility] [address] [place] [address] Umair Gillis, [address] [place] [address] 07/24/2024 12:50 PM EST Office Visit Dermatology [facility] [place] [address] [place] [address] Bela Nevarez PA-C [address] [place] [address] 10/09/2024 1:40 PM EDT Office Visit [facility] Medicine, [facility] [place] [address] Jt Leon MD [address] [facility] [place] [address] Pending Results Name Type Priority Associated Diagnoses Date /Time BASIC METABOLIC PANEL Lab Routine Chronic diastolic CHF (congestive heart failure) (HCC) 04/26/2024 11:20 AM EST TSH WITH FREE T4 IF INDICATED Lab Routine Acquired hypothyroidism 04/26/2024 11:20 AM EST Scheduled Procedures Name Priority Associated Diagnoses Date/Ti me COLONOSCOPY FLEXIBLE PROXIMAL DIAGNOSTIC Recall History of colon polyps Health Maintenance Due Date Last Done Comments Alpha-1 Antitrypsin 1960 Zoster Vaccines (1 of 2) 1992 DXA Scan 01/17/2019 01/18/2012, 06/2011, 10/21/2008, Additional history exists Adult Wellness Visit 11/22/2022 11/22/2021 Depression Screening 11/22/2022 11/22/2021 Colonoscopy 02/01/2024 01/31/2019, 01/17, 09/26/2013, Additional history exists COVID-19 Vaccine (4- season) 2024 06/15/2021, 08/14/2020, 07/23/2020 TSH 03/09/2024 03/09/2023, 11/17, 08/19/2021, Additional history exists O2 ASSESSMENT COMPLETED IN PAST YEAR FOR COPD 04/11/2025 04/11/2024 DTap/Tdap Vaccines (4 - Td or Tdap) [...] this encounter Medical Devices Implanted Type Area Warehouse Guard Device Identifier Shelf Expiration Date Model / Serial / Lot Clip Quick 2.8mm 230cm - [id number] Implanted:Qty: 2 on 01/31/2019 by Rebecca Ayala DO at ENDOSCOPY [facility] [employer] [facility] 06/18/2021 [id number] / documented as of this encounter Visit Diagnoses Diagnosis Chronic diastolic CHF (congestive heart failure) (HCC) Chronic diastolic heart failure Acquired hypothyroidism Unspecified hypothyroidism documented in this encounter Care Teams Tree Planter Relationship Specialty Start Date End Date Umair Gillis DO [address] [place] [address] PCP - General Family Medicine 12/16/16 documented as of this encounter
--- OUTSIDE RECORDS SUMMARY | 2024-06-09 16:18 | External Medical Summary | Summary of Care ---
Author Name Unknown Organization [facility] Address [address] [facility] [place] [address] Phone [phone] Care Team Providers [facility] Name Role Phone Umair Gillis DO Primary Care Provider [phone] Encounter Details Date Type Department Care Team (Late st Contact Info) Description 04/12/2024 Orders Only Family Practice [facility] [address] [place] [address] Umair Gillis DO [address] [facility] [place] [address] Allergies Active Allergy Reactions Criticality Noted Date [...] as of this encounter (statuses as of 04/12/2024) Medications Medication Sig Dispensed Refills Start Date End Date Status ASPIRIN 81 MG PO TABSIndications:takes 3x a week Take by mouth. Indications: takes 3x a week Active triamcinolone acetonide (ARISTOCORT) 0.1 % cream Apply topically to affected area 2 times a day. To affected area. 60 g 5 01/10/2018 Active oxygen IN GASIndications:ILD (interstitial lung disease) ([facility]),Moderate persistent asthma without complication,Chronic respiratory failure with hypoxia ([facility]) Use 2 LPM with exertion. 1 Each 02/03/2022 Active Loratadine 10 MG Oral Tablet (Claritin)Indications: Seasonal allergic rhinitis, unspecified trigger Take by mouth 1 Tablet in the morning. 30 Tablet 11 04/21/2022 Active Pantoprazole Sodium 40 MG Oral Tablet Delayed Release (Protonix)Indications: Gastroesophageal reflux disease without esophagitis Take 1 Tablet by mouth in the morning. 30 Tablet 11 06/07/2022 Active Levalbuterol HCl 0.63 MG/3ML Inhalation Nebulization Solution (Xopenex)Indications:M oderate persistent asthma without complication Inhale 3 mL via nebulizer every 4 hours as needed for Wheezing. 75 mL 12 08/03/2022 Active Rosuvastatin Calcium 20 MG Oral Tablet (Crestor)Indications:D yslipidemia, goal LDL below 100 Take 1 Tablet by mouth in the morning. 90 Tablet 3 12/09/2022 Active Levalbuterol Tartrate 45 MCG/ACT Inhalation Aerosol (Xopenex HFA)Indications:COPD, group C, by GOLD 2017 classification ([facility]),Chronic diastolic CHF (congestive heart failure) ([facility]),Moderate persistent asthma without complication Inhale 1 Puff by mouth every 4 hours as needed for Wheezing. 15 g 12 01/06/2023 Active Ventolin HFA 108 (90 Base) MCG/ACT Inhalation Aerosol Solution Inhale 2 Puffs by mouth every 4 hours as needed for Wheezing. 18 g 3 01/10/2023 Active Furosemide 40 MG Oral Tablet (Lasix)Indications:Chr onic diastolic CHF (congestive heart failure) ([facility]) Take one tablet in the morning and one in the mid afternoon 60 Tablet 11 09/26/2023 Active Amitriptyline HCl 25 MG Oral Tablet (Elavil)Indications:GA D (generalized anxiety disorder) Take 1 Tablet by mouth at bedtime. 30 Tablet 5 10/16/2023 Active Budesonide 0.5 MG/2ML Inhalation Suspension (Pulmicort)Indications :Moderate persistent asthma without complication,ILD (interstitial lung disease) ([facility]) Inhale 0.5 mg via nebulizer in the morning and 0.5 mg before bedtime. Dx J 44.9, J 84.9, J 45.40 Bill under medicare part B. 360 mL 3 12/12/2023 Active Levothyroxine Sodium 112 MCG Oral Tablet (Levoxyl) Take 1 Tablet by mouth in the morning. (at least 30 min prior to breakfast or other meds). 90 Tablet 1 01/01/2024 Active Arformoterol Tartrate 15 MCG/2ML Inhalation Nebulization Solution (Brovana)Indications:M oderate persistent asthma without complication Inhale 15 mcg by mouth in the morning and 15 mcg before bedtime. 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 Personal history of malignant neoplasm of breast 12/23/2002 GENERAL OSTEOARTHROSIS Hypothyroidism Migraine documented as of this encounter (statuses as of 04/12/2024) Resolved Problems Problem Noted Date Diagnosed Date [...] Finding of region of thorax 09/22/2010 09/24/2018 Overview: CT 09/2010 infiltrate of the RML and TANGELA, CT 02/2011 improvement in RML/TANGELA reflecting an inflammatory process, RUL nodule stable since 2003 Lung field abnormal 02/24/2010 03/31/20 11 Umbilical hernia 07/04/2005 01/23/2019 ADVANCE DIRECTIVE INFORMATION 11/23/2004 03/31/2011 Overview: No, Advance Directive brochure given to patient at a previous visit. Swelling, mass, or lump in chest 12/18/2003 03/16/2011 Overview: unique lung mass seen on CT scan, RUL mass most promient Follow-up examination, follo wing other surgery 06/09/2003 03/07/2017 Asthma with severity to be determined 12/23/2002 06/13/2012 Overview: 04/25/12: Moderate obstructive lung disease with moderate Gold disease severity score ICD-10 update of inactive term Asthma, moderate persistent 12/23/2002 01/10/2018 Overview: PER PROVIDER. ASTHMA, MODERATELY SEVERE 04/25/12: Moderate obstructive lung disease with moderate Gold disease severity score Reflux esophagitis 05/24/2001 2 SEBACEOUS CYST scalp 03/12/2001 018 Mixed dyslipidemia 9 Overview: Per Lipid Taxonomy. MALIGN NEOPL BREAST NOS /11/2014 documented as of this encounter (statuses as of 04/12/2024) Immunizations Name Administration Dates Next Due COVID-19 mRNA, LNP-s, No Pre serve, 2-Dose Series (Pfizer) 06/15/2021,08/14/2020,07/23/2020 Pneumococcal Conjugate Vacc, 13 Valent (Prevnar) [...] Recorded PHQ Adult Total Score 3 11/22/2021 Sex and Gender Information Value Date Recorded Sex Assigned at Female 09/24/2018 12:08 PM EDT Gender Identity Female 09/24/2018 12:08 PM EDT Sexual Orientation Straight 09/24/2018 12 :08 PM EDT Job Start Date Occupation Industry Not on file Not on file Not on file documented as of this encounter Plan of Treatment Upcoming Encounters Date Type Department Care Team (Late st Contact Info) Description 04/30/2024 4:00 PM EST Office Visit [facility] [address] [place] [address] Umair Gillis, DO [address] [place], [place] [address] 05/14/2024 10:30 AM EST Office Visit Cardiology, [facility] [address] [facility] [place] [address] Amber Dockery PA-C [address] [facility] [place] [address] 05/15/2024 1:00 PM EST Office Visit [facility] [address] [place] [address] Umair Gillis, DO [address] [place] [address] 07/24/2024 12:50 PM EST Office Visit Dermatology [address] [address] Bela Nevarez PA-C [address] [facility] [place] [address] 10/09/2024 1:40 PM EDT Office Visit Pulmonary Medicine, [facility] [address] [place] [address] Jt Leon MD [address] [place] [id number] Scheduled Procedures Name Priority Associated Diagnoses Date/Ti me COLONOSCOPY FLEXIBLE PROXIMAL DIAGNOSTIC Recall History of colon polyps Health Maintenance Due Date Last Done Comments Alpha-1 Antitrypsin 1960 Zoster Vaccines (1 of 2) 1992 DXA Scan 01/17/2019 01/18/2012, 06/2011, 10/21/2008, Additional history exists Adult Wellness Visit 11/22/2022 11/22/2021 Depression Screening 11/22/2022 11/22/2021 Colonoscopy 02/01/2024 01/31/2019, 01/17, 09/26/2013, Additional history exists COVID-19 Vaccine (2023- season) 2024 06/15/2021, 08/14/2020, 07/23/2020 TSH 03/09/2024 [...] this encounter Medical Devices Implanted Type Area Reading Efficiency Course Director Device Identifier Shelf Expiration Date Model / Serial / Lot Clip Quick 2.8mm 230cm - [id number] Implanted:Qty: 2 on 01/31/2019 by Rebecca Ayala DO at ENDOSCOPY [facility] [employer] 06/18/2021 [id number] / / documented as of this encounter Procedures Procedure Name Priority Date/Time Associated Diagnosis Comments MAMMOGRAM SCREENING BILATERAL Routine 04/11/2024 documented in this encounter Results * MAMMOGRAM SCREENING BILATERAL (04/11/2024) Anatomical Region Laterality Modality Breast Bilateral Other 04/11/2024 Umair Gillis DO RAD MAMMOGRAPHY documented in this encounter Care Teams [facility]ist Relationship Specialty Start Date End Date Umair Gillis DO [address] [facility] [place] [address] PCP - General Family Medicine 12/16/16 documented as of this encounter
--- OUTSIDE RECORDS SUMMARY | 2024-06-09 16:18 | External Medical Summary | Summary of Care ---
Author Name Unknown Organization [facility] Address [address] [facility] [place] [address] Phone [phone] Care Team Providers Care Crate Repairer Name Role Phone Umair Gillis Primary Care Provider Reason for Visit * Reason Comments Acute Encounter Details Date Type Department Care Team (Late st Contact Info) Description 04/11/2024 1:00 PM EDT Office Visit Family Practice [facility] [address] [facility] [place] [address] Alissa Mccoy DO [facility] [address] Aspiration pneumonia, unspecified aspiration pneumonia type, unspecified laterality, unspecified part of lung (HCC)*; Pneumonia of right lower lobe due to infectious organism; Generalized abdominal fullness Allergies Active Allergy Reactions Criticality Noted Date [...] g 5 01/11/20 18 Active oxygen IN GASIndications:ILD (interstitial lung disease) ([facility]),Moderate persistent asthma without complication,Chron ic respiratory failure with hypoxia ([facility]) Use 2 LPM with exertion. 1 Each 02/04/20 22 Active Loratadine 10 MG Oral Tablet (Claritin)Indicati [...] PD, group C, by GOLD 2017 classification ([facility]),Chronic diastolic CHF (congestive heart failure) ([facility]),Moderate persistent asthma without complication Inhale 1 Puff by mouth every 4 hours as needed for Wheezing. 15 g 12 01/07/20 23 Active Ventolin HFA 108 (90 Base) MCG/ACT Inhalation Aerosol Solution Inhale 2 Puffs by mouth every 4 hours as needed for Wheezing. 18 g 3 01/11/20 23 Active Furosemide 40 MG Oral Tablet (Lasix)Indications :Chronic diastolic CHF (congestive heart failure) ([facility]) Take one tablet in the morning and one in the mid afternoon 60 Tablet 11 09/26/19 24 Active Amitriptyline HCl 25 MG Oral Tablet (Elavil)Indication s:CIELO (generalized anxiety disorder) Take 1 Tablet by mouth at bedtime. 30 Tablet 5 10/16/19 24 Active Budesonide 0.5 MG/2ML Inhalation Suspension (Pulmicort)Indicat ions:Moderate persistent asthma without complication,ILD (interstitial lung disease) (HCC) Inhale 0.5 mg via nebulizer in the morning and 0.5 mg before bedtime. Dx J 44.9, J 84.9, J 45.40 Bill under medicare part B. 360 mL 3 12/12/19 24 Active Levothyroxine Sodium 112 MCG Oral Tablet (Levoxyl) Take 1 Tablet by mouth in the morning. (at least 30 min prior to breakfast or other meds). 90 Tablet 1 01/01/20 24 Active Arformoterol Tartrate 15 MCG/2ML Inhalation Nebulization Solution (Brovana)Indicatio ns:Moderate persistent asthma without complication Inhale 15 mcg by mouth in the morning and 15 mcg before bedtime. 360 mL 3 01/02/20 24 Active clonazePAM 0.5 MG Oral Tablet (KlonoPIN)Indicati ons:CIELO (generalized anxiety disorder) TAKE 1/2 (ONE-HALF) TABLET BY MOUTH 4 TIMES DAILY NEEDED FOR ANXIETY 60 Tablet 3 03/12/20 24 Active Doxycycline Hyclate 100 MG Oral Capsule Take 1 Capsule by mouth in the morning and 1 Capsule before bedtime. Do all this for 10 days. Until gone.. 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 file 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 Not on file Not on file documented as of this encounter Last Filed Vital Signs Vital Sign Reading Time Taken Comments Blood Pressure 140/86 04/11/2024 12:56 PM EDT Pulse 66 04/11/2024 12:56 PM EDT Temperature 36.2 C (97.2 F) 04/11/2024 12:56 PM E DT Respiratory Rate 18 04/11/2024 12:56 PM EDT Oxygen Saturation 100% 04/11/2024 12:56 PM EDT Inhaled Oxygen Concentration - - Weight 66.9 kg (147 lb 6.4 oz) 04/11/2024 12:56 PM EDT Height - - Body Mass Index 31.95 04/04/2024 10:25 AM EDT documented in this encounter Progress Notes * Alissa Mccoy, - 04/11/2024 1:08 PM EDT Subjective: Leela Villanueva is a 83 year old female. Chief Complaint Patient presents with Acute HPI: Leela Villanueva presents with complaints of dry non-productive cough & SOB for past 1 month Stomach upset, burping, constipation Trouble with choking, swallowing, chronic aspiration? PHM: Patient Active Problem List Diagnosis Personal history [...] COPD, group D, by GOLD 2017 classification ([facility]) Current Outpatient Medications Medication Sig Dispense Refill clonazePAM 0.5 MG Oral Tablet (KlonoPIN) TAKE 1/2 (ONE-HALF) TABLET BY MOUTH 4 TIMES DAILY NEEDED FOR ANXIETY 60 Tablet 3 Arformoterol Tartrate 15 MCG/2ML Inhalation Nebulization Solution (Brovana) Inhale 15 mcg by mouth in the morning and 15 mcg before bedtime. 360 mL 3 Levothyroxine Sodium 112 MCG Oral Tablet (Levoxyl) Take 1 Tablet by mouth in the morning. (at least30 min prior to breakfast or other meds). 90 Tablet 1 Budesonide 0.5 MG/2ML Inhalation Suspension (Pulmicort) Inhale 0.5 mg via nebulizer in the morning and 0.5 mg before bedtime. Dx J 44.9, J 84.9, J 45.40 Bill under medicare part B. 360 mL 3 Amitriptyline HCl 25 MG Oral Tablet (Elavil) Take 1 Tablet by mouth at bedtime. 30 Tablet 5 Furosemide 40 MG Oral Tablet (Lasix) Take one tablet in the morning and one in the mid afternoon 60Tablet 11 Ventolin HFA 108 (90 Base) MCG/ACT Inhalation Aerosol Solution Inhale 2 Puffs by mouth every 4 hours as needed for Wheezing. 18 g 3 Levalbuterol Tartrate 45 MCG/ACT Inhalation Aerosol (Xopenex HFA) Inhale 1 Puff by mouth every 4 hours as needed for Wheezing. 15 g 12 Rosuvastatin Calcium 20 MG Oral Tablet (Crestor) Take 1 Tablet by mouth in the morning. 90 Tablet 3 Levalbuterol HCl 0.63 MG/3ML Inhalation Nebulization Solution (Xopenex) Inhale 3 mL via nebulizer every 4 hours as needed for Wheezing. 75 mL 12 Pantoprazole Sodium 40 MG Oral Tablet Delayed Release (Protonix) Take 1 Tablet by mouth in the morning. 30 Tablet 11 Loratadine 10 MG Oral Tablet (Claritin) Take by mouth 1 Tablet in the morning. 30 Tablet 11 oxygen IN GAS Use 2 LPM with exertion. 1 Each 0 triamcinolone acetonide (ARISTOCORT) 0.1 % cream Apply topically to affected area 2 times a day. Toaffected area. 60 g 5 ASPIRIN 81 MG PO TABS Take by mouth. Indications: takes 3x a week No current facility-administered medications for this visit. Review of patient's allergies indicates: Allergen Reactions Omnicef [Cefdinir] Other (Please comment) Headache, restless Amoxicillin shaky Clarithromycin Unknown Iodine anaphy Morphine Neuro complications (Please comment) shaky Prednisone Unknown Propoxyphene Other (Please comment) "knocks me out" Propoxyphene Hcl change in mental status Pseudoephedrine Unknown Serotonin Reuptake Inhibitors (Ssris) Celexa nervous, shaky Objective: BP 140/86 | Pulse 66 | Temp 36.2 C (97.2 F) (Tympanic) | Resp 18 | Wt 66.9 kg (147 lb 6.4 oz) |SpO2 100% | BMI 31.95 kg/m | BSA 1.64 m On 2L NC Physical Exam: General: alert, healthy, and no distress Head: Normocephalic, No masses, lesions, tenderness or abnormalities Heart: regular rate & rhythm, no murmur, and no gallops Lungs: chest symmetric with normal AP diameter, no chest deformities noted, no chest wall tenderness, lungs clear to auscultation Pulses: carotid=2/4 w/o bruits Abdomen: abdomen soft, non-tender, normal bowel sounds, and no masses or organomegaly Back: back symmetric, no curvature, no costovertebral angle tenderness, range of motion is normal Extremities: less than 2 second capillary refill, no joint deformities, effusion, or inflammation ASSESSMENT/PLAN: Aspiration pneumonia, unspecified aspiration pneumonia type, unspecified laterality, unspecified part of lung (HCC) (Primary) Pneumonia of right lower lobe due to infectious organism - XR CHEST 2 VIEWS Generalized abdominal fullness - XR ABDOMEN 1 VIEW Follow Up: Return in about 4 weeks (around 05/09/2024), or if symptoms worsen or fail to improve, for Clinic Visit. | For: Clinic Visit | Check-out note: Speech eval per pulm Xray today 29 min spent with patient, reviewing history, performing physical exam, reviewing labs, studies, specialist OVNs, and reports, educating and coordinating care, discussing treatment Alissa Mccoy DO documented in this encounter Nursing Notes * Pati Alvarez LPN - 04/11/2024 12:55 PM EDT Leela Villanueva presents with complaints of dry non-productive cough & SOB for past 1 month documented in this encounter Plan of Treatment Upcoming Encounters Date Type Department Care Team (Late st Contact Info) Description 04/30/2024 4:00 PM EST [facility] [address] [place] [address] Umair Gillis DO [address] [place] [address] 05/14/2024 10:30 AM EST Office Visit Cardiology, [facility] [address] [place] [address] Amber Dockery PA-C [address] [place] [address] 05/15/2024 1:00 PM EST Office Visit Family Practice [facility] [address] [facility] [place] [address] Umair Gillis DO [address] [facility] [place] [address] 07/24/2024 12:50 PM EST Office Visit Dermatology [facility] [place] [address] [place] [address] Bela Nevarez PA-C [address] [place] [address] 10/09/2024 1:40 PM EDT Office Visit Pulmonary Medicine, [facility] [address] [facility] [place] [address] Jt Leon MD [address] [place] [address] Scheduled Procedures Name Priority Associated Diagnoses Date/Ti [...] ( season) 2024 06/15/2021, 08/14/2020, 07/23/2020 TSH 03/09/2024 [...] this encounter Medical Devices Implanted Type Area Automated Logistics Specialist Device Identifier Shelf Expiration Date Model / Serial / Lot Clip Quick 2.8mm 230cm - [id number] Implanted:Qty: 2 on 01/31/2019 by Rebecca Ayala DO at ENDOSCOPY [facility] [employer] 06/18/2021 [id number] / / documented as of this encounter Procedures Procedure Name Priority Date/Time Associated Diagnosis Comments XR ABDOMEN 1 VIEW Routine 04/11/2024 2:2 2 PM EDT Generalized abdominal fullness XR CHEST 2 VIEWS Routine 04/11/2024 2:22 PM EDT Pneumonia of right lower lobe due to infectious organism documented in this encounter Results * XR ABDOMEN 1 VIEW (04/11/2024 2:22 PM EDT) Anatomical Region Laterality Modality Abdomen, Pelvis Computed Radiogr aphy 04/11/2024 2:36 PM EDT Impressions 04/11/2024 2:33 PM EDT IMPRESSION 1. No acute cardiopulmonary process identified. 2. Moderate gaseous distention of the stomach. Narrative 04/11/2024 2:33 PM EDT EXAM XR CHEST 2 VIEWS; XR ABDOMEN 1 VIEW- 04/11/2024 2:22 pm HISTORY Provided clinical history: "cough >1 month, pneumonia f/u; abdominal fullness" TECHNIQUE PA and lateral upright views of the chest were obtained. AP supine abdominal radiographs were also obtained. COMPARISON Chest radiographs dated March 05, 2024. FINDINGS No visible internal lines or tubes. The cardiomediastinal silhouette is normal in size and contour. No significant central pulmonary vascular congestion or interstitial pulmonary edema. No focal pulmonary consolidation, pleural effusion, or pneumothorax. Moderate gaseous distention of the stomach. There are also nondilated air- filled loops of large bowel, in a nonobstructive pattern. No appreciable pneumatosis or pneumoperitoneum. Surgical clips in the upper abdomen. Multilevel intervertebral disc degeneration. Mild osteoarthritis of both hips. Procedure Note Rj Hunter MD - 04/11/2024 EXAM XR CHEST 2 VIEWS; XR ABDOMEN 1 VIEW- 04/11/2024 2:22 pm HISTORY Provided clinical history: "cough >1 month, pneumonia f/u; abdominalfullness" TECHNIQUE PA and lateral upright views of the chest were obtained. AP supineabdominal radiographs were also obtained. COMPARISON Chest radiographs dated March 05, 2024. FINDINGS No visible internal lines or tubes. The cardiomediastinal silhouette is normal in size and contour. Nosignificant central pulmonary vascular congestion or interstitialpulmonary edema. No focal pulmonary consolidation, pleural effusion, orpneumothorax. Moderate gaseous distention of the stomach. There are also nondilatedair-filled loops of large bowel, in a nonobstructive pattern. Noappreciable pneumatosis or pneumoperitoneum. Surgical clips in the upperabdomen. Multilevel intervertebral disc degeneration. Mild osteoarthritis of bothhips. IMPRESSION IMPRESSION 1. No acute cardiopulmonary process identified. 2. Moderate gaseous distention of the stomach. us Alissa Mccoy DO RADIOLOGY (RAD GENERAL) Final Result * XR CHEST 2 VIEWS (04/11/2024 2:22 PM EDT) Anatomical Region Laterality Modality Chest Computed Radiogr aphy 04/11/2024 2:36 PM EDT Impressions 04/11/2024 2:33 PM EDT IMPRESSION 1. No acute cardiopulmonary process identified. 2. Moderate gaseous distention of the stomach. Narrative 04/11/2024 2:33 PM EDT EXAM XR CHEST 2 VIEWS; XR ABDOMEN 1 VIEW- 04/11/2024 2:22 pm HISTORY Provided clinical history: "cough >1 month, pneumonia f/u; abdominal fullness" TECHNIQUE PA and lateral upright views of the chest were obtained. AP supine abdominal radiographs were also obtained. COMPARISON Chest radiographs dated March 05, 2024. FINDINGS No visible internal lines or tubes. The cardiomediastinal silhouette is normal in size and contour. No significant central pulmonary vascular congestion or interstitial pulmonary edema. No focal pulmonary consolidation, pleural effusion, or pneumothorax. Moderate gaseous distention of the stomach. There are also nondilated air- filled loops of large bowel, in a nonobstructive pattern. No appreciable pneumatosis or pneumoperitoneum. Surgical clips in the upper abdomen. Multilevel intervertebral disc degeneration. Mild osteoarthritis of both hips. Procedure Note Bigger, Rj Torres MD - 04/11/2024 EXAM XR CHEST 2 VIEWS; XR ABDOMEN 1 VIEW- 04/11/2024 2:22 pm HISTORY Provided clinical history: "cough >1 month, pneumonia f/u; abdominalfullness" TECHNIQUE PA and lateral upright views of the chest were obtained. AP supineabdominal radiographs were also obtained. COMPARISON Chest radiographs dated March 05, 2024. FINDINGS No visible internal lines or tubes. The cardiomediastinal silhouette is normal in size and contour. Nosignificant central pulmonary vascular congestion or interstitialpulmonary edema. No focal pulmonary consolidation, pleural effusion, orpneumothorax. Moderate gaseous distention of the stomach. There are also nondilatedair-filled loops of large bowel, in a nonobstructive pattern. Noappreciable pneumatosis or pneumoperitoneum. Surgical clips in the upperabdomen. Multilevel intervertebral disc degeneration. Mild osteoarthritis of bothhips. IMPRESSION IMPRESSION 1. No acute cardiopulmonary process identified. 2. Moderate gaseous distention of the stomach. Alissa Mccoy DO RADIOLOGY (RAD GENERAL) Final Result documented in this encounter Visit Diagnoses Diagnosis Aspiration pneumonia, unspecified aspiration pneumonia type, unspecified laterality, unspecified part of lung (HCC)- Primary Pneumonia of right lower lobe due to infectious organism Generalized abdominal fullness Other symptoms involving abdomen and pelvis documented in this encounter Care Teams Crate Repairer Relationship Specialty Start Date End Date Umair Gillis DO [address] [place] [address] PCP - General Family Medicine 12/16/16 documented as of this encounter
--- OUTSIDE RECORDS SUMMARY | 2024-06-09 16:18 | External Medical Summary | Summary of Care ---
Author Name Unknown Organization [facility] Address [address] [facility] [place] [address] Phone [phone] Care Team Providers Care Land Measurer Name Role Phone Umair Gillis DO Primary Care Provider Reason for Visit * Reason Onset Date Comments FYI 04/29/2024 Encounter Details Date Type Department Care Team (Late st Contact Info) Description 04/29/2024 Telephone Family Practice [facility] [address] [facility] [place] [address] Umair Gillis DO [address] [facility] [place] [address] FY Allergies Active Allergy Reactions Criticality Noted Date [...] as of this encounter (statuses as of 04/29/2024) Medications ASPIRIN 81 MG PO TABSIndications:ta kes 3x a week Take by mouth. Indications: takes 3x a week Active triamcinolone acetonide (ARISTOCORT) 0.1 % cream Apply topically to affected area 2 times a day. To affected area. 60 g 5 8 Active oxygen IN GASIndications:ILD (interstitial lung disease) ([facility]),Moderate persistent asthma without complication,Chron ic respiratory failure with hypoxia ([facility]) Use 2 LPM with exertion. 1 Each [...] PD, group C, by GOLD 2017 classification ([facility]),Chronic diastolic CHF (congestive heart failure) ([facility]),Moderate persistent asthma without complication Inhale 1 Puff by mouth every 4 hours as needed for Wheezing. 15 g 12 3 Active Ventolin HFA 108 (90 Base) MCG/ACT Inhalation Aerosol Solution Inhale 2 Puffs by mouth every 4 hours as needed for Wheezing. 18 g 3 3 Active Furosemide 40 MG Oral Tablet (Lasix)Indications :Chronic diastolic CHF (congestive heart failure) ([facility]) Take one tablet in the morning and [...] as of this encounter (statuses as of 04/29/2024) Active Problems Problem Noted Date Diagnosed Date [...] as of this encounter (statuses as of 04/29/2024) Resolved Problems Problem Noted Date Diagnosed Date [...] as of this encounter (statuses as of 04/29/2024) Immunizations Name Administration Dates Next Due COVID-19 mRNA, LNP-s, No Pre serve, 2-Dose Series ([employer]) 06/15/2021,08/14/2020,07/23/2020 Pneumococcal Conjugate Vacc, 13 Valent (Prevnar) [...] 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 Not on file Not on file [employer]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 file Not on file [employer]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 file 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 Not on file Not on file documented as of this encounter Miscellaneous Notes * Telephone Encounter - Jess Bedolla CPhT - 04/29/2024 3:42 PM EST Reviewed patients appt time Thank you, Jess Bedolla Machinery Mover II [facility] ([facility]) (formerly Telepharmacy) 04/29/2024 3:42 PM documented in this encounter Plan of Treatment Upcoming Encounters Date Type Department Care Team (Late st Contact Info) Description 04/30/2024 4:00 PM EST Office Visit [facility] [address] [place], [place] [address] Umair Gillis, DO [address] [place] [address] 05/14/2024 10:30 AM EST Office Visit Cardiology, [facility] [address] [facility] [place] [address] Amber Dockery [place] [address] [facility] [place] [address] 05/15/2024 1:00 PM EST Office Visit [facility] [address] [place] [address] Umair Gillis, DO [address] [facility] [place] [address] 07/24/2024 12:50 PM EST Office Visit Dermatology [facility] [address] [place] [address] Bela Nevarez PA-C [address] [place] [address] 10/09/2024 1:40 PM EDT Office Visit Pulmonary Medicine, [facility] [address] [facility] [place] [address] Jt Leon MD [address] [place] [address] Scheduled Procedures Name Priority Associated Diagnoses Date/Ti me COLONOSCOPY FLEXIBLE PROXIMAL DIAGNOSTIC Recall History of colon polyps Health Maintenance Due Date Last Done Comments Alpha-1 Antitrypsin 1960 Zoster Vaccines (1 of 2) 1992 DXA Scan 01/17/2019 01/18/2012, 08/0 06/2011, 10/21/2008, Additional history exists Adult Wellness [...] this encounter Medical Devices Implanted Type Area Wheel Mill Operator Device Identifier Shelf Expiration Date Model / Serial / Lot Clip Quick 2.8mm 230cm - [id number] Implanted:Qty: 2 on 01/31/2019 by Rebecca Ayala DO at ENDOSCOPY [facility] Smart[employer] 06/18/2021 [id number] / / documented as of this encounter Care Teams Land Measurer Relationship Specialty Start Date End Date Umair Gillis DO [address] [facility] [place], [place] [address] PCP - General Family Medicine 12/16/16 documented as of this encounter
--- NOTE | 2024-06-09 16:25 | Emergency Department Note ---
Impression & Plan Atypical chest pain, Bilateral leg cramps, Leg swelling, Ambulatory dysfunction ED Provider Note Provider: Adarsh Herron MD CHIEF COMPLAINT: Short of breath/palpitations HISTORY OF PRESENT ILLNESS: Patient is a 83-year-old female past medical history including breast cancer, COPD, and pneumonia presenting here today via ambulance from home. Patient and are present although not the clearest history. Sounds like the patient's had some little bit of left chest discomfort for some time as well as at times some palpitation symptoms. Reportedly has been having coughing at night and some shortness of breath but is unclear that these have acutely changed significantly recently. No syncope is reported. Does have issues with her swollen legs for which he wears compression stockings but lost her balance and fell onto her buttocks today. Was able to get up from this well and did not strike her head. Denies any significant pain from this. No significant abdominal pain or nausea or vomiting is reported. Patient is maintained on her chronic 2 L of oxygen. Patient declined a nebulizer treatments for EMS that she states it makes her feel shaky. PAST MEDICAL HISTORY: As noted above MEDICATIONS: Reviewed home medications SOCIAL HISTORY: , lives at home PHYSICAL EXAM: GENERAL: alert and oriented in no acute distress on stretcher at bedside on nasal cannula oxygen Head: normocephalic and atraumatic EYES: No injection, discharge or icterus. PERRL, EOMI. NECK: Trachea midline. Supple. ENT: Mucous membranes pink and moist. LUNGS: Airway patent. No retractions. Breath sounds clear HEART: Regular rate and rhythm. No chest wall tenderness ABDOMEN: Soft and non-tender, without guarding or rebound. SKIN: Acyanotic, warm, dry, without rashes EXTREMITIES: Patient without significant tenderness but 2+ bilateral lower extremity swelling and compression stockings. NEUROLOGICAL: No focal deficits but some mild resting tremor in arms and legs. No aphasia. No facial droop or slurred speech. Normal strength and tone in the extremities. Sensation to gross touch normal. EK bpm sinus tachycardia. No PVC or PAC. No acute ST segment elevation or depression with a QTc of 450. CONTINUOUS CARDIAC MONITORING: was ordered and showed a heart rate of 100s to 110s bpm in sinus tachycardia Patient's laboratory studies and imaging reviewed. Differential includes arrhythmia, CAD, pneumonia, infection, dehydration, metabolic abnormality, hypo/hyperglycemia, electrolyte disturbance, anemia, hypoxia, intracerebral event, toxicologic, neurologic, as well as other pathologies. IMPRESSION/MEDICAL DECISION MAKING: EKG obtained showing a sinus tachycardia but no significant arrhythmia. Stable on her chronic 2 L of oxygen here. She is hypertensive here upon arrival but afebrile. Basic blood work without significant electrolyte abnormality signs of renal dysfunction. No evidence of transaminitis. Not have significant GI upset or pain and benign abdomen on exam. Has some chronic swelling of lower extremities as such her BNP was sent and a chest x-ray obtained. No significant focal neurological deficits and I doubt CVA, meningitis, or ICH. No seizure- like activities reported. Chest x-ray per radiology without significant findings of fluid overload/pleural effusion, pneumonia, pneumothorax reported. Procalcitonin undetectably low which is reassuring. BNP and troponin are normal. TSH minimally elevated 5.1. Not significant. Urinalysis not impressive for infection. Respiratory viral panel returns negative surprisingly. Discussed with patient and family findings and generally reassuring testing. Has been in lymphedema clinic before for her legs and they are actually less swollen than previously. Does have some tremor. She does take clonazepam regularly but is not due till later and does not want any earlier dose. Will give additional dose of IV magnesium as this may help with some of the cramping pain she is having. Discussed with patient and family given her ambulatory dysfunction and cramping and generalized weakness would recommend that we continue to work her up and monitor here in the hospital. She was reluctantly agreeable but wants to avoid as many needlesticks as possible. I will obtain ultrasound lower extremity to exclude DVT. Cannot entirely exclude PE at this time and that she is not having elevated troponin or increased oxygen requirement, but her significant allergy to IV contrast precludes this at this time. I have a lower suspicion but if ongoing issues could consider VQ scan in the morning. Do not believe the patient septic at this time. DIAGNOSIS: Cramping, tremor, atypical chest pain, ambulatory dysfunction DISPOSITION: Hospitalist will evaluate Patient was agreeable with this plan. Past Med/Surg History Problem List (Updated 06/09/24 @ 20:51 by Jose Hadley MD) Tachycardia Squamous cell carcinoma Encounter for pre-operative examination Pneumonia (Acute) Hypoxia (Acute) Changing skin lesion Medical History Anxiety Asthma Follows with Dr. Geiger, [facility] ([place] Uses PRN neb daily Breast cancer Left breast 2001- sx + radiation Chronic heart failure with perserved EF Difficult intravenous access required assistance from IV team in past Dyslipidemia Fear of needles GERD (gastroesophageal reflux disease) History of COVID-19 06/2020; asymptomatic History of home oxygen therapy 2 lpm cont- secondary to chronic hypoxic respiratory failure per pulm History of pneumonia 12/2020 - required cont oxygen upon d/c from hospital and remains on Hx of deep venous thrombosis LLE - "years ago" - r/t injury Hypothyroidism Limb alert care status LUE Sleep apnea unable to tolerate CPAP SOB (shortness of breath) Multifactorial per pulmonary- chronic HF, chronic hypoxic respiratory failure, possible ILD, asthma, obesity, Covid infection 07/2020, multifocal consolidations/scarring, non allergic rhinitis Tachycardia ANXIETY RELATED PER PATIENT. follows with Dr. 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: No Beliefs That Will Affect Care: None Current Living Situation: Spouse Feels Safe at Home: Yes Assistive Devices: Denture - Upper, Glasses and Oxygen - Continuous Allergies Allergies Allergy/AdvReac Type Severity Reaction Status Date / Time iodine Allergy Severe ORAL AND Verified 06/09/24 21:04 FACIAL SWELLING methadone Allergy Severe Shakiness Verified 06/09/24 21:04 propoxyphene Allergy Severe Shakiness Verified 06/09/24 21:04 shellfish derived Allergy Severe ORAL AND Verified 06/09/24 21:04 FACIAL SWELLING clarithromycin Allergy Unknown unknown Verified 06/09/24 21:04 prednisone Allergy Unknown Shakiness Verified 06/09/24 21:04 Serotonin 5HT-3 Antagonists Allergy Unknown Anxiety Verified 06/09/24 21:04 morphine AdvReac Unknown LIGHTHEADED Verified 06/09/24 21:04 Home Meds Home Medications Medication Instructions Recorded Confirmed albuterol sulfate 90 mcg/actuation 2 puff inhalation Q6H PRN 06/09/24 06/09/24 aerosol inhaler (Ventolin HFA) Shortness Of Breath Or Wheezing amitriptyline 25 mg tablet 25 mg PO HS 06/09/24 06/09/24 arformoterol 15 mcg/2 mL solution 15 mcg inhalation BID 06/09/24 06/09/24 for nebulization budesonide 0.5 mg/2 mL suspension 0.5 mg inhalation BID 06/09/24 06/09/24 for nebulization clonazepam 0.5 mg tablet 0.25 mg PO Q6H PRN Anxiety 06/09/24 06/09/24 furosemide 40 mg tablet 40 mg PO UD 06/09/24 06/09/24 levothyroxine 125 mcg tablet 125 mcg PO DAILY 06/09/24 06/09/24 Results & Data (ED) Vital Signs Vital Signs - 24 hr 06/09/24 16:16 06/09/24 16:16 06/09/24 16:16 Temperature 36.4 C L Temperature Source Oral Pulse Rate 114 H Pulse Rate [Apical] Pulse Rate from SpO2 Sensor Respiratory Rate 18 Blood Pressure 181/113 H Blood Pressure [Right Arm] Blood Pressure Mean 135 Blood Pressure Mean [Right Arm] Pulse Oximetry 97 Oxygen Delivery Method Nasal Cannula Room Air Room Air Oxygen Flow Rate 2 Sepsis Recent Fever Within 48 Hours No Sepsis New/Unexplained Change in Mental Status No Sepsis Action Taken by Nursing No Action Required 06/09/24 16:27 06/09/24 16:33 06/09/24 16:34 Temperature Temperature Source Pulse Rate 105 H 105 H Pulse Rate [Apical] Pulse Rate from SpO2 Sensor Respiratory Rate 22 Blood Pressure 182/97 H Blood Pressure [Right Arm] Blood Pressure Mean 125 Blood Pressure Mean [Right Arm] Pulse Oximetry 98 Oxygen Delivery Method Room Air Nasal Cannula Oxygen Flow Rate 2 Sepsis Recent Fever Within 48 Hours Sepsis New/Unexplained Change in Mental Status Sepsis Action Taken by Nursing 06/09/24 18:14 06/09/24 19:03 06/09/24 20:09 Temperature Temperature Source Pulse Rate 118 H 120 H Pulse Rate [Apical] 110 H Pulse Rate from SpO2 Sensor 120 H 120 H Respiratory Rate 24 19 20 Blood Pressure 167/95 H Blood Pressure [Right Arm] 179/92 H Blood Pressure Mean 119 Blood Pressure Mean [Right Arm] 121 Pulse Oximetry 98 95 95 Oxygen Delivery Method Nasal Cannula Nasal Cannula Nasal Cannula Oxygen Flow Rate 2 2 2 Sepsis Recent Fever Within 48 Hours Sepsis New/Unexplained Change in Mental Status Sepsis Action Taken by Nursing 06/09/24 20:24 Temperature Temperature Source Pulse Rate 120 H Pulse Rate [Apical] Pulse Rate from SpO2 Sensor Respiratory Rate Blood Pressure Blood Pressure [Right Arm] Blood Pressure Mean Blood Pressure Mean [Right Arm] Pulse Oximetry Oxygen Delivery Method Oxygen Flow Rate Sepsis Recent Fever Within 48 Hours Sepsis New/Unexplained Change in Mental Status Sepsis Action Taken by Nursing Laboratory Data 06/09/24 17:30 06/09/24 16:27 Lab Results 06/09/24 06/09/24 06/09/24 Range/Units 16:27 16:53 17:05 WBC Cancelled RBC Cancelled Hgb Cancelled Hct Cancelled MCV Cancelled MCH Cancelled MCHC Cancelled RDW Std Deviation Cancelled RDW Coeff of Neena Cancelled Plt Count Cancelled MPV Cancelled Immature Gran % (Auto) Cancelled Neut % (Auto) Cancelled Lymph % (Auto) Cancelled [place] % (Auto) Cancelled Eos % (Auto) Cancelled Baso % (Auto) Cancelled Neut # (Auto) Cancelled Lymph # (Auto) Cancelled [place] # (Auto) Cancelled Eos # (Auto) Cancelled Baso # (Auto) Cancelled Immature Gran # (Auto) Cancelled Absolute Nucleated RBC Cancelled Nucleated RBC % (auto) Cancelled Neutrophils % (Manual) Cancelled Band Neutrophils % Cancelled Lymphocytes % (Manual) Cancelled Prolymphocyte % Cancelled Reactive Lymphs % (Man) Cancelled Monocytes % (Manual) Cancelled Eosinophils % (Manual) Cancelled Basophils % (Manual) Cancelled Metamyelocytes % (Man) Cancelled Myelocytes % (Man) Cancelled Promyelocytes % (Man) Cancelled Blast Cells % (Manual) Cancelled Plasma Cell % (Manual) Cancelled Other Cells % Cancelled Nucleated RBC % Cancelled Neutrophils # (Manual) Cancelled Band Neutrophils # Cancelled Total Absolute Neuts Cancelled Lymphocytes # (Manual) Cancelled Prolymphocyte # Cancelled Reactive Lymphs # Cancelled Total Abs Lymphocytes Cancelled Monocytes # (Manual) Cancelled Eosinophils # (Manual) Cancelled Basophils # (Manual) Cancelled Metamyelocytes # (Man) Cancelled Myelocytes # (Manual) Cancelled Promyelocytes # (Man) Cancelled Blast Cells # (Man) Cancelled Plasma Cell # (Manual) Cancelled Other Cells # Cancelled Nucleated RBCs # (Man) Cancelled Hypersegmented Neuts Cancelled Hyposegmented Neuts Cancelled Hypogranular Neuts Cancelled Large Granular Lymphs Cancelled # Lrg Granular Lymphs Cancelled Hairy Cells Cancelled Smudge Cells Cancelled Toxic Granulation Cancelled Toxic Vacuolation Cancelled Dohle Bodies Cancelled Elizabeth Rods Cancelled Platelet Estimate Cancelled Hypogranular Platelets Cancelled Giant Platelets Cancelled Platelet Satelliting Cancelled RBC Morphology Cancelled Polychromasia Cancelled Hypochromasia Cancelled Poikilocytosis Cancelled Basophilic Stippling Cancelled Anisocytosis Cancelled Microcytosis Cancelled Macrocytosis Cancelled Spherocytes Cancelled Pappenheimer Bodies Cancelled Sickle Cells Cancelled Target Cells Cancelled Tear Drop Cells Cancelled Ovalocytes Cancelled Stomatocytes Cancelled [place] Bodies Cancelled Echinocytes Cancelled Acanthocytes (Spur) Cancelled Rouleaux Cancelled RBC Agglutinates Cancelled Schistocytes Cancelled Sezary Cell Cancelled PT 11.0 (9.0-12.0) Seconds INR 1.0 (0.9-1.1) Sodium 143 (136-145) mmol/L Potassium 3.7 (3.5-5.1) mmol/L Chloride 104 (98-107) mmol/L Carbon Dioxide 32 (21-32) mmol/L Anion Gap 7 (3-11) BUN 20 (6-23) mg/dl Creatinine 0.82 (0.6-1.2) mg/dl Est Cr Clr Drug Dosing 44.1 ml/min eGFR 71.82 BUN/Creatinine Ratio 24.4 H (10-20) Glucose 132 H (70-99(Fasting)) mg/dl Lactate 0.6 (0.4-2.0) mmol/L Calcium 9.7 (8.6-10.3) mg/dl Magnesium 2.1 (1.7-2.4) mg/dl Total Bilirubin 0.6 (0.2-1.0) mg/dl AST 21 (13-39) U/L ALT 14 (7-52) U/L Alkaline Phosphatase 81 (34-104) U/L Troponin I High Sens 11.0 (0-14) pg/ml B-Natriuretic Peptide 59 (0-100) pg/ml Total Protein 7.7 (6.0-8.3) gm/dl Albumin 4.3 (3.4-5.0) gm/dl Globulin 3.4 (2.5-4.0) gm/dl Albumin/Globulin Ratio 1.3 (0.9-2) Procalcitonin < 0.02 (0-0.5) ng/ml TSH 5.168 H (0.300-4.500) uIu/ml Free T4 0.83 (0.61-1.60) ng/dl Urine Color Yellow Urine Appearance Clear (Clear) Urine pH 7.0 (4.5-7.5) Ur Specific [place] 1.011 (1.000-1.030) Urine Protein Negative (Negative) Urine Glucose (UA) Negative (Negative) Urine Ketones Negative (Negative) Urine Blood Negative (Negative) Urine Nitrite Negative (Negative) Urine Bilirubin Negative (Negative) Urine Urobilinogen Negative (Negative) Ur Leukocyte Esterase 1+ H (Negative) Urine WBC (Auto) 0-5 (0-5) /hpf Urine RBC (Auto) 0-2 (0-2) /hpf U Hyaline Cast (Auto) 0-2 (0-2) /lpf U Epithel Cells (Auto) 0-2 (0-2) /hpf Urine Bacteria (Auto) None Seen (None Seen) Adenovirus (PCR) Not Detected (NotDetected) B. pertussis DNA (PCR) Not Detected (NotDetected) B.parapertussis DNA PCR Not Detected (NotDetected) C. pneumoniae DNA (PCR) Not Detected (NotDetected) Coronavirus OC43 (PCR) Not Detected (NotDetected) Coronavirus HKU1 (PCR) Not Detected (NotDetected) Coronavirus 229E (PCR) Not Detected (NotDetected) SARS-CoV-2 (PCR) Not Detected (NotDetected) Coronavirus NL63 (PCR) Not Detected (NotDetected) Human Metapneumovir PCR Not Detected (NotDetected) Influenza Type A (PCR) Not Detected (NotDetected) Influenza Type B (PCR) Not Detected (NotDetected) M. pneumoniae (PCR) Not Detected (NotDetected) Parainfluenza 1 (PCR) Not Detected (NotDetected) Parainfluenza 2 (PCR) Not Detected (NotDetected) Parainfluenza 3 (PCR) Not Detected (NotDetected) Parainfluenza 4 (PCR) Not Detected (NotDetected) RSV (PCR) Not Detected (NotDetected) Entero/Rhino (PCR) Not Detected (NotDetected) Blood Parasites ID Cancelled 06/09/24 Range/Units 17:30 WBC 10.51 RBC 4.90 Hgb 13.9 Hct 42.1 MCV 85.9 MCH 28.4 MCHC 33.0 RDW Std Deviation 43.7 RDW Coeff of Neena 14.1 Plt Count 149 MPV 11.1 Immature Gran % (Auto) 0.3 Neut % (Auto) 71.9 Lymph % (Auto) 17.0 [place] % (Auto) 10.2 Eos % (Auto) 0.2 Baso % (Auto) 0.4 Neut # (Auto) 7.56 H Lymph # (Auto) 1.79 [place] # (Auto) 1.07 H Eos # (Auto) 0.02 Baso # (Auto) 0.04 Immature Gran # (Auto) 0.03 Absolute Nucleated RBC Nucleated RBC % (auto) Neutrophils % (Manual) Band Neutrophils % Lymphocytes % (Manual) Prolymphocyte % Reactive Lymphs % (Man) Monocytes % (Manual) Eosinophils % (Manual) Basophils % (Manual) Metamyelocytes % (Man) Myelocytes % (Man) Promyelocytes % (Man) Blast Cells % (Manual) Plasma Cell % (Manual) Other Cells % Nucleated RBC % Neutrophils # (Manual) Band Neutrophils # Total Absolute Neuts Lymphocytes # (Manual) Prolymphocyte # Reactive Lymphs # Total Abs Lymphocytes Monocytes # (Manual) Eosinophils # (Manual) Basophils # (Manual) Metamyelocytes # (Man) Myelocytes # (Manual) Promyelocytes # (Man) Blast Cells # (Man) Plasma Cell # (Manual) Other Cells # Nucleated RBCs # (Man) Hypersegmented Neuts Hyposegmented Neuts Hypogranular Neuts Large Granular Lymphs # Lrg Granular Lymphs Hairy Cells Smudge Cells Toxic Granulation Toxic Vacuolation Dohle Bodies Elizabeth Rods Platelet Estimate Hypogranular Platelets Giant Platelets Platelet Satelliting RBC Morphology Polychromasia Hypochromasia Poikilocytosis Basophilic Stippling Anisocytosis Microcytosis Macrocytosis Spherocytes Pappenheimer Bodies Sickle Cells Target Cells Tear Drop Cells Ovalocytes Stomatocytes [place] Bodies Echinocytes Acanthocytes (Spur) Rouleaux RBC Agglutinates Schistocytes Sezary Cell PT (9.0-12.0) Seconds INR (0.9-1.1) Sodium (136-145) mmol/L Potassium (3.5-5.1) mmol/L Chloride (98-107) mmol/L Carbon Dioxide (21-32) mmol/L Anion Gap (3-11) BUN (6-23) mg/dl Creatinine (0.6-1.2) mg/dl Est Cr Clr Drug Dosing ml/min eGFR BUN/Creatinine Ratio (10-20) Glucose (70-99(Fasting)) mg/dl Lactate (0.4-2.0) mmol/L Calcium (8.6-10.3) mg/dl Magnesium (1.7-2.4) mg/dl Total Bilirubin (0.2-1.0) mg/dl AST (13-39) U/L ALT (7-52) U/L Alkaline Phosphatase (34-104) U/L Troponin I High Sens (0-14) pg/ml B-Natriuretic Peptide (0-100) pg/ml Total Protein (6.0-8.3) gm/dl Albumin (3.4-5.0) gm/dl Globulin (2.5-4.0) gm/dl Albumin/Globulin Ratio (0.9-2) Procalcitonin (0-0.5) ng/ml TSH (0.300-4.500) uIu/ml Free T4 (0.61-1.60) ng/dl Urine Color Urine Appearance (Clear) Urine pH (4.5-7.5) Ur Specific [place] (1.000-1.030) Urine Protein (Negative) Urine Glucose (UA) (Negative) Urine Ketones (Negative) Urine Blood (Negative) Urine Nitrite (Negative) Urine Bilirubin (Negative) Urine Urobilinogen (Negative) Ur Leukocyte Esterase (Negative) Urine WBC (Auto) (0-5) /hpf Urine RBC (Auto) (0-2) /hpf U Hyaline Cast (Auto) (0-2) /lpf U Epithel Cells (Auto) (0-2) /hpf Urine Bacteria (Auto) (None Seen) Adenovirus (PCR) (NotDetected) B. pertussis DNA (PCR) (NotDetected) B.parapertussis DNA PCR (NotDetected) C. pneumoniae DNA (PCR) (NotDetected) Coronavirus OC43 (PCR) (NotDetected) Coronavirus HKU1 (PCR) (NotDetected) Coronavirus 229E (PCR) (NotDetected) SARS-CoV-2 (PCR) (NotDetected) Coronavirus NL63 (PCR) (NotDetected) Human Metapneumovir PCR (NotDetected) Influenza Type A (PCR) (NotDetected) Influenza Type B (PCR) (NotDetected) M. pneumoniae (PCR) (NotDetected) Parainfluenza 1 (PCR) (NotDetected) Parainfluenza 2 (PCR) (NotDetected) Parainfluenza 3 (PCR) (NotDetected) Parainfluenza 4 (PCR) (NotDetected) RSV (PCR) (NotDetected) Entero/Rhino (PCR) (NotDetected) Blood Parasites ID Administered Medications Discontinued Medications Clonazepam (Clonazepam 0.5 Mg Tab) 0.25 mg PO NOW STA Stop: 06/09/24 21:01 Last Admin: 06/09/24 21:30 Dose: 0.25 mg Documented By: JANET Gabapentin (Gabapentin 100 Mg Cap) 100 mg PO NOW STA Stop: 06/09/24 20:40 Last Admin: 06/09/24 21:35 Dose: 100 mg Documented By: JANET Magnesium Sulfate/Dextrose (Magnesium Sulfate / D5w) 1 gm in 100 mls @ 200 mls/hr IV Q30M MILY Stop: 06/09/24 20:44 Last Infusion: 06/09/24 21:35 Dose: Infused Documented By: Admin: 06/09/24 20:58 Dose: 200 mls/hr Documented By: Infusion: 06/09/24 20:56 Dose: Infused Documented By: Admin: 06/09/24 20:26 Dose: 200 mls/hr Documented By: JANET Imaging Data Radiologist's Impression: Chest X-Ray 06/09/24 16:15 EXAM: Radiograph of the Chest 1 View INDICATION: Shortness of breath and palpitations. TECHNIQUE: Frontal view of the chest. COMPARISON: No relevant prior studies available. FINDINGS: Limitations: Portions of the neck obscure a small portion of the left apex. Lungs and pleural spaces: No pleural effusion. No visible pneumothorax allowing for overlapping soft tissue density. Heart: Shape and configuration within normal limits allowing for technique. Mediastinum: Normal contour. Bones/joints: Degenerative changes noted throughout the spine. No acute osseous abnormality seen. Soft tissues: No abnormality noted. No radiopaque foreign body noted. Upper abdomen: No abnormality noted. IMPRESSION: Limited as above. No acute cardiopulmonary disease. ACT 112: Negative or not required by law. Electronically signed by Radha Rondon 06-09-2024 4:53 PM Discharge Plan Visit Data Chief Complaint: Cardiac Assessment Stated Complaint: TACHYCARDIA, HTN, SOB, CHEST PAIN, WEAKNESS ED Provider: Adarsh Herron Discharge Problem: Atypical chest pain, Bilateral leg cramps, Leg swelling, Ambulatory dysfunction Forms Stand Alone Forms: [employer] Prescriptions Prescriptions: No Action furosemide 40 mg tablet 40 mg PO UD Rx Instructions: 40mg in am and 40mg at Mid afternoon. clonazepam 0.5 mg tablet 0.25 mg PO Q6H PRN (Reason: Anxiety) amitriptyline 25 mg tablet 25 mg PO HS levothyroxine 125 mcg tablet 125 mcg PO DAILY budesonide 0.5 mg/2 mL suspension for nebulization 0.5 mg inhalation BID arformoterol 15 mcg/2 mL solution for nebulization 15 mcg INHALATION BID albuterol sulfate [Ventolin HFA] 90 mcg/actuation Hfa Aerosol Inhaler 2 puff INHALATION Q6H PRN (Reason: Shortness Of Breath Or Wheezing) Referrals Referrals: Umair Gillis DO [Primary Care Provider] -
--- NOTE | 2024-06-09 16:53 | XRay Report ---
EXAM: Radiograph of the Chest 1 View INDICATION: Shortness of breath and palpitations. TECHNIQUE: Frontal view of the chest. COMPARISON: No relevant prior studies available. FINDINGS: Limitations: Portions of the neck obscure a small portion of the left apex. Lungs and pleural spaces: No pleural effusion. No visible pneumothorax allowing for overlapping soft tissue density. Heart: Shape and configuration within normal limits allowing for technique. Mediastinum: Normal contour. Bones/joints: Degenerative changes noted throughout the spine. No acute osseous abnormality seen. Soft tissues: No abnormality noted. No radiopaque foreign body noted. Upper abdomen: No abnormality noted. IMPRESSION: Limited as above. No acute cardiopulmonary disease. ACT 112: Negative or not required by law. Electronically signed by Radha Rondon 06-09-2024 4:53 PM
[2024-06-09 17:04] LABS: Albumin Globulin Ratio 1.3 (0.9-2); Albumin Level 4.3 gm/dl (3.4-5.0); BUN Creatinine Ratio 24.4 (10-20); Bilirubin,Total 0.6 mg/dl (0.2-1.0); Calcium 9.7 mg/dl (8.6-10.3); Creatinine Clr Calc Pharmacy 44.1 ml/min; Globulin 3.4 gm/dl (2.5-4.0); Magnesium 2.1 mg/dl (1.7-2.4); Potassium 3.7 mmol/L (3.5-5.1); Total Protein 7.7 gm/dl (6.0-8.3)
[2024-06-09 17:20] LABS: Thyroid Stimulating Hormone 5.168 uIu/ml (0.300-4.500)
[2024-06-09 17:27] LABS: Appearance Urine Clear (Clear); Bacteria Urine Automated None Seen (None Seen); Bilirubin Urine Negative (Negative); Blood Urine Negative (Negative); Cast Urine Automated 0-2 /lpf (0-2); Color Urine Yellow; Epithelial Cell Urine Auto 0-2 /hpf (0-2); Glucose Urine UA Negative (Negative); Ketones Urine Negative (Negative); Leukocyte Esterase Urine 1+ (Negative); Nitrite Urine Negative (Negative); Protein Urine Negative (Negative); RBC Urine Automated 0-2 /hpf (0-2); Specific Gravity Urine 1.011 (1.000-1.030); Urobilinogen Urine Negative (Negative); WBC Urine Automated 0-5 /hpf (0-5)
[2024-06-09 17:50] LABS: Adenovirus PCR Not Detected (NotDetected); Bordetella parapertussis PCR Not Detected (NotDetected); Bordetella pertussis PCR Not Detected (NotDetected); Chlamydia pneumoniae PCR Not Detected (NotDetected); Coronavirus 229E PCR Not Detected (NotDetected); Coronavirus CoV-2 (COVID19)PCR Not Detected (NotDetected); Coronavirus HKU1 PCR Not Detected (NotDetected); Coronavirus NL63 PCR Not Detected (NotDetected); Coronavirus OC43PCR Not Detected (NotDetected); Human Metapneumovirus PCR Not Detected (NotDetected); Influenza A PCR Not Detected (NotDetected); Influenza B PCR Not Detected (NotDetected); Mycoplasma pneumoniae PCR Not Detected (NotDetected); Parainfluenza Virus 1 PCR Not Detected (NotDetected); Parainfluenza Virus 2 PCR Not Detected (NotDetected); Parainfluenza Virus 3 PCR Not Detected (NotDetected); Parainfluenza Virus 4 PCR Not Detected (NotDetected); Respiratory Syncytial VirusPCR Not Detected (NotDetected); Rhinovirus/Enterovirus PCR Not Detected (NotDetected)
[2024-06-09 17:52] LABS: Basophils # (auto) 0.04 K/uL (0.00-0.20); Basophils % (auto) 0.4 %; Eosinophils # (auto) 0.02 K/uL (0.00-0.50); Eosinophils % (auto) 0.2 %; Hematocrit (blood only) 42.1 % (37.0-47.0); Hemoglobin 13.9 g/dl (12.0-16.0); Immature Granulocytes # (auto) 0.03 K/uL (0.01-0.20); Immature Granulocytes % (auto) 0.3 %; Lymphocytes # (auto) 1.79 K/uL (1.20-3.40); Mean Corpuscular Hemoglobin 28.4 pg (25.0-34.0); Mean Corpuscular Volume 85.9 fL (80.0-100.0); Mean Platelet Volume 11.1 fL (9.4-12.4); Monocytes # (auto) 1.07 K/uL (0.11-0.59); Monocytes % (auto) 10.2 %; Neutrophils # (auto) 7.56 K/uL (1.40-6.50); Neutrophils % (auto) 71.9 %; Platelet Count 149 K/uL (130-400); RDW Coefficient of Variation 14.1 % (11.5-14.5); RDW Standard Deviation 43.7 fL (36.4-46.3); White Blood Count 10.51 K/ul (4.8-10.8)
[2024-06-09 17:55] LABS: T4 Free Thyroxine 0.83 ng/dl (0.61-1.60)
[2024-06-09] MEDS: MAGNESIUM SULFATE / D5W 1 GM/100 ML BAG IV SCH (20:26)
--- NOTE | 2024-06-09 20:56 | History & Physical Report ---
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 Patient is hard of hearing. and daughter is in the room who helped with H&P. Patient says she has a mild headache. No dizziness. No runny nose or sore throat. Has cough. No fevers. No difficulty swallowing. Denies chest pain or shortness of breath currently. She is feeling full in her stomach easily and not eating much. Denies abdominal pain. Normal bowel and bladder movements. Has swelling in lower extremity but daughter says they are much better than before.Complaining of cramps in her lower extremity. Taking her medications regularly as per daughter. Tachycardia Feeling of shakiness and elevated blood pressure Troponin and BNP okay Had echo on 05/27/2024 which showed EF of 60 to 64% and grade 1 diastolic CHF. She also had Zio patch as outpatient as she was having quivering sensations and funny feeling in the chest which showed episodes of SVT possible atrial tachycardia with variable block We will monitor on telemetry Respiratory bio fire negative IV Lopressor as needed Consult cardiology in a.m. for further recommendations Hypertension Not on any meds Will monitor Hypothyroidism On Synthyroid tsh is 5.1 but free T4 ok at 0.83. followup Chronic respiratory failure with hypoxia on 2 L oxygen History of COPD History of interstitial lung disease History of asthma Continue home inhalers Chronic diastolic CHF Continue home Lasix GERD On Protonix History of breast cancer S/p lumpectomy and radiation treatment History of general anxiety disorder On Klonopin Leg cramps lower extremity edema received iv mag in er gave a dose of gabapentin and home Klonopin doppler negative DVT prophylaxis Heparin subcu Disposition Telemetry Full code History of Present Illness Chief Complaint: Tachycardia Primary Care Provider: Umair Gillis DO 83-year-old female with past medical history significant for hypothyroidism, hyperlipidemia, Hurthle cell adenoma of thyroid, chronic respiratory failure with hypoxia on 2 L oxygen, interstitial lung disease, COPD, moderate persistent asthma, nonallergic rhinitis, chronic diastolic CHF, GERD, 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 Patient is hard of hearing. and daughter is in the room who helped with H&P. Patient says she has a mild headache. No dizziness. No runny nose or sore throat. Has cough. No fevers. No difficulty swallowing. Denies chest pain or shortness of breath currently. She is feeling full in her stomach easily and not eating much. Denies abdominal pain. Normal bowel and bladder movements. Has swelling in lower extremity but daughter says they are much better than before.Complaining of cramps in her lower extremity. Taking her medications regularly as per daughter. Past medical history. As mentioned above Past surgical history. Bilateral total knee arthroplasty. Left breast lumpectomy with axillary lymph nodes with postop radiation. Colonoscopy. EGD. EGD with biopsy. Excision of the scalp deep tumor. Laparoscopic cholecystectomy. Ligation of oviducts. Skin cancer removal to the left and and skin graft done from left groin. Thoracoscopy with excision of the pericardial cyst, umbilical hernia repair. Social history. . No smoking. No alcohol use. No drug use. Family history. Mother had skin cancer. CAD. Stroke. Father had heart disorder. Suicide. Allergies Allergy/AdvReac Type Severity Reaction Status Date / Time iodine Allergy Severe ORAL AND Verified 06/09/24 21:04 FACIAL SWELLING methadone Allergy Severe Shakiness Verified 06/09/24 21:04 propoxyphene Allergy Severe Shakiness Verified 06/09/24 21:04 shellfish derived Allergy Severe ORAL AND Verified 06/09/24 21:04 FACIAL SWELLING clarithromycin Allergy Unknown unknown Verified 06/09/24 21:04 prednisone Allergy Unknown Shakiness Verified 06/09/24 21:04 Serotonin 5HT-3 Antagonists Allergy Unknown Anxiety Verified 06/09/24 21:04 morphine AdvReac Unknown LIGHTHEADED Verified 06/09/24 21:04 Home Medications Medication Instructions Recorded Confirmed Type albuterol sulfate 90 mcg/actuation 2 puff inhalation Q6H PRN 06/09/24 06/09/24 History aerosol inhaler (Ventolin HFA) Shortness Of Breath Or Wheezing amitriptyline 25 mg tablet 25 mg PO HS 06/09/24 06/09/24 History arformoterol 15 mcg/2 mL solution 15 mcg inhalation BID 06/09/24 06/09/24 History for nebulization budesonide 0.5 mg/2 mL suspension 0.5 mg inhalation BID 06/09/24 06/09/24 History for nebulization clonazepam 0.5 mg tablet 0.25 mg PO Q6H PRN Anxiety 06/09/24 06/09/24 History furosemide 40 mg tablet 40 mg PO UD 06/09/24 06/09/24 History levothyroxine 125 mcg tablet 125 mcg PO DAILY 06/09/24 06/09/24 History Past Med/Surg History Problem List (Updated 06/09/24 @ 20:51 by Jose Hadley MD) Tachycardia Squamous cell carcinoma Encounter for pre-operative examination Pneumonia (Acute) Hypoxia (Acute) Changing skin lesion Medical History Anxiety Asthma Follows with Dr. Geiger, [facility]. Uses PRN neb daily Breast cancer Left breast 2001- sx + radiation Chronic heart failure with perserved EF Difficult intravenous access required assistance from IV team in past Dyslipidemia Fear of needles GERD (gastroesophageal reflux disease) History of COVID-19 06/2020; asymptomatic History of home oxygen therapy 2 lpm cont- secondary to chronic hypoxic respiratory failure per pulm History of pneumonia 12/2020 - required cont oxygen upon d/c from hospital and remains on Hx of deep venous thrombosis LLE - "years ago" - r/t injury Hypothyroidism Limb alert care status LUE Sleep apnea unable to tolerate CPAP SOB (shortness of breath) Multifactorial per pulmonary- chronic HF, chronic hypoxic respiratory failure, possible ILD, asthma, obesity, Covid infection 07/2020, multifocal consolidations/scarring, non allergic rhinitis Tachycardia ANXIETY RELATED PER PATIENT. follows with Dr. Arguello Surgical History History of arthroscopy BILAT KNEES History of bilateral tubal ligation History of breast biopsy History of cholecystectomy History of colonoscopy History of esophagogastroduodenoscopy (EGD) History of lumpectomy of left breast History of removal of cyst Hx of hernia repair Social History Smoking Status: Never smoker Second Hand Exposure: Yes (sister smokes); Do You Dip or Chew Tobacco: No; Hx Alcohol Use: No Hx Substance Use: No Preferred Language: Indonesian Communication Ability: Effective District Court Judge Required: No Beliefs That Will Affect Care: None Current Living Situation: Spouse Other Information That Helps Us Care for You: No Feels Safe at Home: Yes Safety Concerns: Feels Safe At This Time Assistive Devices: Denture - Upper, Oxygen - Continuous and Walker Review of Systems Review of Systems: All systems reviewed & are unremarkable except as noted in HPI & below Physical Exam Physical Exam: General- Not in distress Head- atraumatic Eyes- PERRL. ENT- oropharynx clear Neck- supple, no JVD. Lungs- diminished b/l breath sounds, no wheezing or crackles. Heart- regular rhythm;Tachycardia, no murmur, no gallop. Abdomen- normal bowel sounds, soft, nontender, no distension Extremities- b/l lower extremity edema present with very mild erythema Neuro- alert, oriented ; hard of hearing, PERRL, no facial palsy; no dysarthria; moves extremities Results & Data Results & Data Vital Signs (Past 12 Hours) Vital Signs Temp Pulse Pulse Resp BP BP Pulse Ox 06/09/24 20:24 120 H 06/09/24 20:09 120 H 20 167/95 H 95 06/09/24 19:03 118 H 19 95 06/09/24 18:14 110 H 24 179/92 H 98 06/09/24 16:34 105 H 06/09/24 16:33 105 H 22 182/97 H 98 06/09/24 16:27 06/09/24 16:16 06/09/24 16:16 06/09/24 16:16 36.4 C L 114 H 18 181/113 H 97 O2 Del Method O2 Flow Rate 06/09/24 20:24 06/09/24 20:09 Nasal Cannula 2 06/09/24 19:03 Nasal Cannula 2 06/09/24 18:14 Nasal Cannula 2 06/09/24 16:34 06/09/24 16:33 Nasal Cannula 2 06/09/24 16:27 Room Air 06/09/24 16:16 Room Air 06/09/24 16:16 Room Air 06/09/24 16:16 Nasal Cannula 2 Diagnostic Findings Laboratory Results WBC 10.51 K/ul (4.8-10.8) 06/09/24 17:30 RBC 4.90 M/uL (4.20-5.40) 06/09/24 17:30 Hgb 13.9 g/dl (12.0-16.0) 06/09/24 17:30 Hct 42.1 % (37.0-47.0) 06/09/24 17:30 MCV 85.9 fL (80.0-100.0) 06/09/24 17:30 MCH 28.4 pg (25.0-34.0) 06/09/24 17:30 MCHC 33.0 g/dL (32.0-36.0) 06/09/24 17:30 RDW Std Deviation 43.7 fL (36.4-46.3) 06/09/24 17:30 RDW Coeff of Neena 14.1 % (11.5-14.5) 06/09/24 17:30 Plt Count 149 K/uL (130-400) 06/09/24 17:30 MPV 11.1 fL (9.4-12.4) 06/09/24 17:30 Immature Gran % (Auto) 0.3 % 06/09/24 17:30 Neut % (Auto) 71.9 % 06/09/24 17:30 Lymph % (Auto) 17.0 % 06/09/24 17:30 Real % (Auto) 10.2 % 06/09/24 17:30 Eos % (Auto) 0.2 % 06/09/24 17:30 Baso % (Auto) 0.4 % 06/09/24 17:30 Neut # (Auto) 7.56 K/uL (1.40-6.50) H 06/09/24 17:30 Lymph # (Auto) 1.79 K/uL (1.20-3.40) 06/09/24 17:30 Real # (Auto) 1.07 K/uL (0.11-0.59) H 06/09/24 17:30 Eos # (Auto) 0.02 K/uL (0.00-0.50) 06/09/24 17:30 Baso # (Auto) 0.04 K/uL (0.00-0.20) 06/09/24 17:30 Immature Gran # (Auto) 0.03 K/uL (0.01-0.20) 06/09/24 17:30 Absolute Nucleated RBC Cancelled 06/09/24 16:27 Nucleated RBC % (auto) Cancelled 06/09/24 16:27 Neutrophils % (Manual) Cancelled 06/09/24 16:27 Band Neutrophils % Cancelled 06/09/24 16:27 Lymphocytes % (Manual) Cancelled 06/09/24 16:27 Prolymphocyte % Cancelled 06/09/24 16:27 Reactive Lymphs % (Man) Cancelled 06/09/24 16:27 Monocytes % (Manual) Cancelled 06/09/24 16:27 Eosinophils % (Manual) Cancelled 06/09/24 16:27 Basophils % (Manual) Cancelled 06/09/24 16:27 Metamyelocytes % (Man) Cancelled 06/09/24 16:27 Myelocytes % (Man) Cancelled 06/09/24 16:27 Promyelocytes % (Man) Cancelled 06/09/24 16:27 Blast Cells % (Manual) Cancelled 06/09/24 16:27 Plasma Cell % (Manual) Cancelled 06/09/24 16:27 Other Cells % Cancelled 06/09/24 16:27 Nucleated RBC % Cancelled 06/09/24 16:27 Neutrophils # (Manual) Cancelled 06/09/24 16:27 Band Neutrophils # Cancelled 06/09/24 16:27 Total Absolute Neuts Cancelled 06/09/24 16:27 Lymphocytes # (Manual) Cancelled 06/09/24 16:27 Prolymphocyte # Cancelled 06/09/24 16:27 Reactive Lymphs # Cancelled 06/09/24 16:27 Total Abs Lymphocytes Cancelled 06/09/24 16:27 Monocytes # (Manual) Cancelled 06/09/24 16:27 Eosinophils # (Manual) Cancelled 06/09/24 16:27 Basophils # (Manual) Cancelled 06/09/24 16:27 Metamyelocytes # (Man) Cancelled 06/09/24 16:27 Myelocytes # (Manual) Cancelled 06/09/24 16:27 Promyelocytes # (Man) Cancelled 06/09/24 16:27 Blast Cells # (Man) Cancelled 06/09/24 16:27 Plasma Cell # (Manual) Cancelled 06/09/24 16:27 Other Cells # Cancelled 06/09/24 16:27 Nucleated RBCs # (Man) Cancelled 06/09/24 16:27 Hypersegmented Neuts Cancelled 06/09/24 16:27 Hyposegmented Neuts Cancelled 06/09/24 16:27 Hypogranular Neuts Cancelled 06/09/24 16:27 Large Granular Lymphs Cancelled 06/09/24 16:27 # Lrg Granular Lymphs Cancelled 06/09/24 16:27 Hairy Cells Cancelled 06/09/24 16:27 Smudge Cells Cancelled 06/09/24 16:27 Toxic Granulation Cancelled 06/09/24 16:27 Toxic Vacuolation Cancelled 06/09/24 16:27 Dohle Bodies Cancelled 06/09/24 16:27 Elizabeth Rods Cancelled 06/09/24 16:27 Platelet Estimate Cancelled 06/09/24 16:27 Hypogranular Platelets Cancelled 06/09/24 16:27 Giant Platelets Cancelled 06/09/24 16:27 Platelet Satelliting Cancelled 06/09/24 16:27 RBC Morphology Cancelled 06/09/24 16:27 Polychromasia Cancelled 06/09/24 16:27 Hypochromasia Cancelled 06/09/24 16:27 Poikilocytosis Cancelled 06/09/24 16:27 Basophilic Stippling Cancelled 06/09/24 16:27 Anisocytosis Cancelled 06/09/24 16:27 Microcytosis Cancelled 06/09/24 16:27 Macrocytosis Cancelled 06/09/24 16:27 Spherocytes Cancelled 06/09/24 16:27 Pappenheimer Bodies Cancelled 06/09/24 16:27 Sickle Cells Cancelled 06/09/24 16:27 Target Cells Cancelled 06/09/24 16:27 Tear Drop Cells Cancelled 06/09/24 16:27 Ovalocytes Cancelled 06/09/24 16:27 Stomatocytes Cancelled 06/09/24 16:27 Zelaya-[place]rost[place] Bodies Cancelled 06/09/24 16:27 Echinocytes Cancelled 06/09/24 16:27 Acanthocytes (Spur) Cancelled 06/09/24 16:27 Rouleaux Cancelled 06/09/24 16:27 RBC Agglutinates Cancelled 06/09/24 16:27 Schistocytes Cancelled 06/09/24 16:27 Sezary Cell Cancelled 06/09/24 16:27 PT 11.0 Seconds (9.0-12.0) 06/09/24 16:27 INR 1.0 (0.9-1.1) 06/09/24 16:27 Sodium 143 mmol/L (136-145) 06/09/24 16:27 Potassium 3.7 mmol/L (3.5-5.1) 06/09/24 16:27 Chloride 104 mmol/L (98-107) 06/09/24 16:27 Carbon Dioxide 32 mmol/L (21-32) 06/09/24 16:27 Anion Gap 7 (3-11) 06/09/24 16:27 BUN 20 mg/dl (6-23) 06/09/24 16:27 Creatinine 0.82 mg/dl (0.6-1.2) 06/09/24 16:27 Est Cr Clr Drug Dosing 44.1 ml/min 06/09/24 16:27 eGFR 71.82 06/09/24 16:27 BUN/Creatinine Ratio 24.4 (10-20) H 06/09/24 16:27 Glucose 132 mg/dl (70-99(Fasting)) H 06/09/24 16:27 Lactate 0.6 mmol/L (0.4-2.0) 06/09/24 16:27 Calcium 9.7 mg/dl (8.6-10.3) 06/09/24 16:27 Magnesium 2.1 mg/dl (1.7-2.4) 06/09/24 16:27 Total Bilirubin 0.6 mg/dl (0.2-1.0) 06/09/24 16:27 AST 21 U/L (13-39) 06/09/24 16:27 ALT 14 U/L (7-52) 06/09/24 16:27 Alkaline Phosphatase 81 U/L (34-104) 06/09/24 16:27 Troponin I High Sens 11.0 pg/ml (0-14) 06/09/24 16:27 B-Natriuretic Peptide 59 pg/ml (0-100) 06/09/24 16: Total Protein 7.7 gm/dl (6.0-8.3) 06/09/24 16: Albumin 4.3 gm/dl (3.4-5.0) 06/09/24 16: Globulin 3.4 gm/dl (2.5-4.0) 06/09/24 16: Albumin/Globulin Ratio 1.3 (0.9-2) 06/09/24 16: Procalcitonin < 0.02 ng/ml (0-0.5) 06/09/24 16: TSH 5.168 uIu/ml (0.300-4.500) H 06/09/24 16: Free T4 0.83 ng/dl (0.61-1.60) 06/09/24 16:27 Urine Color Yellow 06/09/24 17:05 Urine Appearance Clear (Clear) 06/09/24 17:05 Urine pH 7.0 (4.5-7.5) 06/09/24 17:05 Ur Specific [place] 1.011 (1.000-1.030) 06/09/24 17:05 Urine Protein Negative (Negative) 06/09/24 17:05 Urine Glucose (UA) Negative (Negative) 06/09/24 17:05 Urine Ketones Negative (Negative) 06/09/24 17:05 Urine Blood Negative (Negative) 06/09/24 17:05 Urine Nitrite Negative (Negative) 06/09/24 17:05 Urine Bilirubin Negative (Negative) 06/09/24 17:05 Urine Urobilinogen Negative (Negative) 06/09/24 17:05 Ur Leukocyte Esterase 1+ (Negative) H 06/09/24 17:05 Urine WBC (Auto) 0-5 /hpf (0-5) 06/09/24 17:05 Urine RBC (Auto) 0-2 /hpf (0-2) 06/09/24 17:05 U Hyaline Cast (Auto) 0-2 /lpf (0-2) 06/09/24 17:05 U Epithel Cells (Auto) 0-2 /hpf (0-2) 06/09/24 17:05 Urine Bacteria (Auto) None Seen (None Seen) 06/09/24 17:05 Adenovirus (PCR) Not Detected (NotDetected) 06/09/24 16:53 B. pertussis DNA (PCR) Not Detected (NotDetected) 06/09/24 16:53 B.parapertussis DNA PCR Not Detected (NotDetected) 06/09/24 16:53 C. pneumoniae DNA (PCR) Not Detected (NotDetected) 06/09/24 16:53 Coronavirus OC43 (PCR) Not Detected (NotDetected) 06/09/24 16:53 Coronavirus HKU1 (PCR) Not Detected (NotDetected) 06/09/24 16:53 Coronavirus 229E (PCR) Not Detected (NotDetected) 06/09/24 16:53 SARS-CoV-2 (PCR) Not Detected (NotDetected) 06/09/24 16:53 Coronavirus NL63 (PCR) Not Detected (NotDetected) 06/09/24 16:53 Human Metapneumovir PCR Not Detected (NotDetected) 06/09/24 16:53 Influenza Type A (PCR) Not Detected (NotDetected) 06/09/24 16:53 Influenza Type B (PCR) Not Detected (NotDetected) 06/09/24 16:53 M. pneumoniae (PCR) Not Detected (NotDetected) 06/09/24 16:53 Parainfluenza 1 (PCR) Not Detected (NotDetected) 06/09/24 16:53 Parainfluenza 2 (PCR) Not Detected (NotDetected) 06/09/24 16:53 Parainfluenza 3 (PCR) Not Detected (NotDetected) 06/09/24 16:53 Parainfluenza 4 (PCR) Not Detected (NotDetected) 06/09/24 16:53 RSV (PCR) Not Detected (NotDetected) 06/09/24 16:53 Entero/Rhino (PCR) Not Detected (NotDetected) 06/09/24 16:53 Blood Parasites ID Cancelled 06/09/24 16:27 Impressions Chest X-Ray 06/09/24 16:15 EXAM: Radiograph of the Chest 1 View INDICATION: Shortness of breath and palpitations. TECHNIQUE: Frontal view of the chest. COMPARISON: No relevant prior studies available. FINDINGS: Limitations: Portions of the neck obscure a small portion of the left apex. Lungs and pleural spaces: No pleural effusion. No visible pneumothorax allowing for overlapping soft tissue density. Heart: Shape and configuration within normal limits allowing for technique. Mediastinum: Normal contour. Bones/joints: Degenerative changes noted throughout the spine. No acute osseous abnormality seen. Soft tissues: No abnormality noted. No radiopaque foreign body noted. Upper abdomen: No abnormality noted. IMPRESSION: Limited as above. No acute cardiopulmonary disease. ACT 112: Negative or not required by law. Electronically signed by Radha Rondon 06-09-2024 4:53 PM ECG Additional Comments: ECG. Sinus tachycardia rate of 108. QTc 450. Code Status & VTE Plan VTE Prophylaxis Plan VTE Prophylaxis will be ordered: Yes
[2024-06-09] MEDS: clonazePAM 0.5 MG TAB PO STA (21:30)
[2024-06-09] MEDS: GABAPENTIN 100 MG CAP PO STA (21:35)
[2024-06-09] MEDS ORDERED: NITROGLYCERIN SL 0.4 MG/TAB TAB SL PRN (23:45)
--- NOTE | 2024-06-10 00:23 | Ultrasound Report ---
Exam(s): US VENOUS BILATERAL LOWER EXTREMITIES EXAM: US Duplex Bilateral Lower Extremities Veins CLINICAL HISTORY: Swelling. TECHNIQUE: Real-time duplex ultrasound scan of the bilateral lower extremity veins integrating B-mode two-dimensional vascular structure, Doppler spectral analysis, color flow Doppler imaging and compression. COMPARISON: No relevant prior studies available. FINDINGS: Right deep veins: Unremarkable. No Deep vein thrombosis in the right common femoral, femoral, proximal deep femoral or popliteal veins. The veins demonstrate normal color flow, are normally compressible, with normal phasic flow and/or augmentation response. Right superficial veins: Unremarkable. No thrombus in the visualized right great saphenous vein. Left deep veins: Unremarkable. No Deep vein thrombosis in the left common femoral, femoral, proximal deep femoral or popliteal veins. The veins demonstrate normal color flow, are normally compressible, with normal phasic flow and/or augmentation response. Left superficial veins: Unremarkable. No thrombus in the visualized left great saphenous vein. Soft tissues: Nonspecific subcutaneous edema of the left. No popliteal cyst. IMPRESSION: No deep vein thrombosis of either lower extremity. Electronically signed by: Teri Howard MD 06/10/24 00:22 AM
[2024-06-10 00:52] LABS: D Dimer 230 ug/L FEU (0-500)
[2024-06-10] MEDS: HEPARIN SOD 5,000 UNIT/0.5 ML VIAL SQ SCH (01:15)
[2024-06-10] MEDS: AMITRIPTYLINE HCL 25 MG TAB PO SCH (01:15)
[2024-06-10] MEDS: BUDESONIDE 0.5 MG/2 ML VIAL (PULMICORT) INH SCH (01:39)
[2024-06-10] MEDS: FORMOTEROL 20 MCG/2 ML VIAL INH SCH (01:39)
[2024-06-10 06:21] LABS: BUN Creatinine Ratio 23.4 (10-20); Calcium 9.2 mg/dl (8.6-10.3); Creatinine Clr Calc Pharmacy 46.7 ml/min; Magnesium 2.5 mg/dl (1.7-2.4); Potassium 3.5 mmol/L (3.5-5.1)
[2024-06-10 06:29] LABS: Troponin I High Sensitivity 34.3 pg/ml (0-14)
[2024-06-10] MEDS: LEVOTHYROXINE SODIUM 125 MCG TABLET PO SCH (06:54)
[2024-06-10 07:39] LABS: Basophils # (auto) 0.04 K/uL (0.00-0.20); Basophils % (auto) 0.3 %; Eosinophils # (auto) 0.01 K/uL (0.00-0.50); Eosinophils % (auto) 0.1 %; Hematocrit (blood only) 41.1 % (37.0-47.0); Hemoglobin 13.6 g/dl (12.0-16.0); Immature Granulocytes # (auto) 0.05 K/uL (0.01-0.20); Immature Granulocytes % (auto) 0.4 %; Lymphocytes # (auto) 2.24 K/uL (1.20-3.40); Lymphocytes % (auto) 17.6 %; Mean Corpuscular Hemoglobin 28.5 pg (25.0-34.0); Mean Corpuscular Hgb Conc 33.1 g/dL (32.0-36.0); Mean Corpuscular Volume 86.2 fL (80.0-100.0); Mean Platelet Volume 10.5 fL (9.4-12.4); Monocytes # (auto) 1.53 K/uL (0.11-0.59); Neutrophils # (auto) 8.89 K/uL (1.40-6.50); Neutrophils % (auto) 69.6 %; Platelet Count 155 K/uL (130-400); RDW Coefficient of Variation 14.2 % (11.5-14.5); RDW Standard Deviation 44.8 fL (36.4-46.3); Red Blood Count 4.77 M/uL (4.20-5.40); White Blood Count 12.76 K/ul (4.8-10.8)
[2024-06-10] MEDS: ROSUVASTATIN CALCIUM 20 MG TAB PO SCH (08:53)
[2024-06-10] MEDS: PANTOprazole 40 MG TAB PO SCH (08:53)
[2024-06-10] MEDS: FUROSEMIDE 40 MG TAB PO SCH (08:53)
--- NOTE | 2024-06-10 09:30 | CT Scan Report ---
CT OF THE ABDOMEN AND PELVIS WITHOUT CONTRAST CLINICAL HISTORY: Early satiety. COMPARISON STUDY: CT of the abdomen and pelvis December 23, 2010. TECHNIQUE: Axial images of the abdomen and pelvis were obtained without IV contrast. Images were revi ewed in the axial, sagittal, and coronal planes. Automated exposure control was utilized for the nahed dy. A dose lowering technique was utilized adhering to the principles of ALARA. FINDINGS: Scattered groundglass opacities and tree-in-bud nodules within the visualized lower lungs a re present. There is a trace left pleural effusion. No pneumatosis, free air or portal venous gas is present. There are no renal, ureteral or bladder calculi. There is no hydronephrosis. Evaluation of t he remainder of the abdomen and pelvis is suboptimal on this unenhanced examination. There is no bili bernadette ductal dilatation status post cholecystectomy. Spleen, adrenal glands and pancreas are unremarkab le. There is a diverticulum of the second portion of the duodenum. There is extensive calcified ather osclerotic plaque within the abdominal aorta. Caliber of the abdominal aorta is normal. There is no e vidence for a bowel obstruction. Scattered colonic diverticula are present. There is no evidence for acute diverticulitis. There are no fluid collections. There is no ascites. No enlarged lymph nodes ar e present. There are no suspicious lesions within the visualized skeletal structures. IMPRESSION: 1. Scattered groundglass opacities and tree-in-bud nodules within the lower lungs consistent with an infectious process. 2. No acute process within the abdomen or pelvis. No bowel obstruction. 3. No evidence for malignancy within the abdomen or pelvis although sensitivity diminished on unenhan josie exam. ACT 112: Negative or not required by law. Electronically signed by: Johnnie Hdz M.D. 06/10/2024 9:28 AM
--- NOTE | 2024-06-10 09:52 | Cardiology Consultation ---
Date of Consultation June 10, 2024 Assessment & Plan (1) Tachycardia: (2) Pneumonia: (3) Hypoxia: (4) Interstitial lung disease: Plan 83-year-old female with chronic interstitial lung disease possible aspiration component presented due to shakiness and palpitations and chest. Malaise and weakness. EKG with sinus tachycardia on 2 serial testings. Troponin mildly elevated. Suspect sinus tachycardia secondary to multiple underlying medical concerns possibly being driven by bronchodilators inhalers as well. Event monitor approximately 1 year ago did demonstrate short runs of supraventricular tachycardia. Recommendations: Sinus tachycardia: Being driven by underlying medical issues including chronic interstitial lung disease with hypoxia. Treat underlying medical concerns. Assess thyroid function. Treat hypoxia, pain, infection Suspect component of bronchodilators contributing. May need reduction in nebulizers will trial low-dose beta-stan to aid in heart rate management given mild elevation in troponin Continue aspirin, statin History of Present Illness Reason for Consultation: Sinus tachycardia [facility] Attending Physician: Carmen Lin MD History of Present Illness Patient is an 83-year-old female with chronic interstitial lung disease/chronic obstructive lung disease on bronchodilator therapy. Patient presented to the ER due to prior complaints of elevated heart rate weakness and tachycardia. Past event monitor demonstrated elevated heart rates as well as brief episode of paroxysmal supraventricular tachycardia. Recent echocardiogram with preserved LV systolic function Patient notes last evening not feeling well shakiness and pounding in the chest. Family concerned about complaints and brought to ER. Cardiac evaluation is demonstrated sinus and sinus tachycardia only no arrhythmias. Mild elevation in troponin noted. At time of examination patient without acute complaint. Does note chronic cough possibly recently worse. No fevers or chills. Does wear oxygen at home and uses nebulizer frequently. Appetite only fair does take medications without difficulty. No bleeding issues. No overt fevers Patient past treated for aspiration pneumonia in February 2024. Allergies Allergy/AdvReac Type Severity Reaction Status Date / Time iodine Allergy Severe ORAL AND Verified 06/09/24 21:04 FACIAL SWELLING methadone Allergy Severe Shakiness Verified 06/09/24 21:04 propoxyphene Allergy Severe Shakiness Verified 06/09/24 21:04 shellfish derived Allergy Severe ORAL AND Verified 06/09/24 21:04 FACIAL SWELLING clarithromycin Allergy Unknown unknown Verified 06/09/24 21:04 prednisone Allergy Unknown Shakiness Verified 06/09/24 21:04 Serotonin 5HT-3 Antagonists Allergy Unknown Anxiety Verified 06/09/24 21:04 morphine AdvReac Unknown LIGHTHEADED Verified 06/09/24 21:04 Home Medications Medication Instructions Recorded Confirmed Type albuterol sulfate 90 mcg/actuation 2 puff inhalation Q6H PRN 06/09/24 06/09/24 History aerosol inhaler (Ventolin HFA) Shortness Of Breath Or Wheezing amitriptyline 25 mg tablet 25 mg PO HS 06/09/24 06/09/24 History arformoterol 15 mcg/2 mL solution 15 mcg inhalation BID 06/09/24 06/09/24 History for nebulization budesonide 0.5 mg/2 mL suspension 0.5 mg inhalation BID 06/09/24 06/09/24 History for nebulization clonazepam 0.5 mg tablet 0.25 mg PO Q6H PRN Anxiety 06/09/24 06/09/24 History furosemide 40 mg tablet 40 mg PO UD 06/09/24 06/09/24 History levothyroxine 125 mcg tablet 125 mcg PO DAILY 06/09/24 06/09/24 History Patient History Medical History Dyslipidemia Chronic heart failure with perserved EF SOB (shortness of breath) Multifactorial per pulmonary- chronic HF, chronic hypoxic respiratory f ailure, possible ILD, asthma, obesity, Covid infection 07/2020, multifocal consolidations/scarring, non allergic rhinitis History of pneumonia 12/2020 - required cont oxygen upon d/c from hospital and remains on Fear of needles Limb alert care status LUE Difficult intravenous access required assistance from IV team in past History of COVID-19 06/2020; asymptomatic Sleep apnea unable to tolerate CPAP History of home oxygen therapy 2 lpm cont- secondary to chronic hypoxic respiratory failure per pulm Tachycardia ANXIETY RELATED PER PATIENT. follows with Dr. Arguello Breast cancer Left breast 2001- sx + radiation GERD (gastroesophageal reflux disease) Hypothyroidism Anxiety Hx of deep venous thrombosis LLE - "years ago" - r/t injury Asthma Follows with Dr. Geiger [facility]. Uses PRN neb daily Surgical History History of lumpectomy of left breast History of breast biopsy History of removal of cyst History of bilateral tubal ligation History of arthroscopy BILAT KNEES History of esophagogastroduodenoscopy (EGD) History of colonoscopy Hx of hernia repair History of cholecystectomy Social History Smoking Status: Never smoker Second Hand Exposure: Yes (sister smokes); Do You Dip or Chew Tobacco: No; Hx Alcohol Use: No Hx Substance Use: No Preferred Language: Guinean Communication Ability: Effective Sox Analyst Required: No Beliefs That Will Affect Care: None Current Living Situation: Spouse Other Information That Helps Us Care for You: No Feels Safe at Home: Yes Safety Concerns: Feels Safe At This Time Assistive Devices: Denture - Upper, Oxygen - Continuous and Walker Review of Systems Review of Systems: All systems reviewed & are unremarkable except as noted in HPI & below Physical Exam Constitutional: + frail appearing; no acute distress Eyes: PERRL, conjunctivae normal, anicteric sclerae ENMT: external ear and nose normal, oropharynx normal Neck: trachea midline, no thyromegaly Respiratory: Auscultation: + diminished lung sounds and + crackles Cardiovascular: RRR, no murmur, no edema Vessels: no JVD Extremities: no edema Chest (Breasts): normal inspection/palpation of breasts Gastrointestinal (Abdomen): normal bowel sounds, soft, nontender, no hepatosplenomegaly Results & Data Vital Signs (Past 12 Hours) Vital Signs Temp Pulse Pulse Pulse Resp BP Pulse Ox 06/10/24 08:14 36.8 C 101 H 16 139/80 94 06/10/24 07:03 111 H 17 93 06/10/24 03:11 36.7 C 92 H 17 130/83 95 06/10/24 01:40 93 H 16 94 06/09/24 23:15 06/09/24 23:15 36.6 C 118 H 20 158/81 H 93 06/09/24 23:00 112 H O2 Del Method O2 Flow Rate 06/10/24 08:14 Nasal Cannula 2 06/10/24 07:03 Nasal Cannula 2 06/10/24 03:11 Nasal Cannula 2 06/10/24 01:40 Nasal Cannula 2 06/09/24 23:15 Nasal Cannula 2 06/09/24 23:15 Nasal Cannula 2 06/09/24 23:00 Laboratory Results Laboratory Results - last 24 hr 06/09/24 06/09/24 06/09/24 16:27 16:53 17:05 WBC Cancelled RBC Cancelled Hgb Cancelled Hct Cancelled MCV Cancelled MCH Cancelled MCHC Cancelled RDW Std Deviation Cancelled RDW Coeff of Neena Cancelled Plt Count Cancelled MPV Cancelled Immature Gran % (Auto) Cancelled Neut % (Auto) Cancelled Lymph % (Auto) Cancelled Montour % (Auto) Cancelled Eos % (Auto) Cancelled Baso % (Auto) Cancelled Neut # (Auto) Cancelled Lymph # (Auto) Cancelled [place] # (Auto) Cancelled Eos # (Auto) Cancelled Baso # (Auto) Cancelled Immature Gran # (Auto) Cancelled Absolute Nucleated RBC Cancelled Nucleated RBC % (auto) Cancelled Neutrophils % (Manual) Cancelled Band Neutrophils % Cancelled Lymphocytes % (Manual) Cancelled Prolymphocyte % Cancelled Reactive Lymphs % (Man) Cancelled Monocytes % (Manual) Cancelled Eosinophils % (Manual) Cancelled Basophils % (Manual) Cancelled Metamyelocytes % (Man) Cancelled Myelocytes % (Man) Cancelled Promyelocytes % (Man) Cancelled Blast Cells % (Manual) Cancelled Plasma Cell % (Manual) Cancelled Other Cells % Cancelled Nucleated RBC % Cancelled Neutrophils # (Manual) Cancelled Band Neutrophils # Cancelled Total Absolute Neuts Cancelled Lymphocytes # (Manual) Cancelled Prolymphocyte # Cancelled Reactive Lymphs # Cancelled Total Abs Lymphocytes Cancelled Monocytes # (Manual) Cancelled Eosinophils # (Manual) Cancelled Basophils # (Manual) Cancelled Metamyelocytes # (Man) Cancelled Myelocytes # (Manual) Cancelled Promyelocytes # (Man) Cancelled Blast Cells # (Man) Cancelled Plasma Cell # (Manual) Cancelled Other Cells # Cancelled Nucleated RBCs # (Man) Cancelled Hypersegmented Neuts Cancelled Hyposegmented Neuts Cancelled Hypogranular Neuts Cancelled Large Granular Lymphs Cancelled # Lrg Granular Lymphs Cancelled Hairy Cells Cancelled Smudge Cells Cancelled Toxic Granulation Cancelled Toxic Vacuolation Cancelled Dohle Bodies Cancelled Elizabeth Rods Cancelled Platelet Estimate Cancelled Hypogranular Platelets Cancelled Giant Platelets Cancelled Platelet Satelliting Cancelled RBC Morphology Cancelled Polychromasia Cancelled Hypochromasia Cancelled Poikilocytosis Cancelled Basophilic Stippling Cancelled Anisocytosis Cancelled Microcytosis Cancelled Macrocytosis Cancelled Spherocytes Cancelled Pappenheimer Bodies Cancelled Sickle Cells Cancelled Target Cells Cancelled Tear Drop Cells Cancelled Ovalocytes Cancelled Stomatocytes Cancelled Zelaya-Terrebonne Bodies Cancelled Echinocytes Cancelled Acanthocytes (Spur) Cancelled Rouleaux Cancelled RBC Agglutinates Cancelled Schistocytes Cancelled Sezary Cell Cancelled PT 11.0 INR 1.0 D-Dimer Sodium 143 Potassium 3.7 Chloride 104 Carbon Dioxide 32 Anion Gap 7 BUN 20 Creatinine 0.82 Est Cr Clr Drug Dosing 44.1 eGFR 71.82 BUN/Creatinine Ratio 24.4 H Glucose 132 H Lactate 0.6 Calcium 9.7 Magnesium 2.1 Total Bilirubin 0.6 AST 21 ALT 14 Alkaline Phosphatase 81 Troponin I High Sens 11.0 B-Natriuretic Peptide 59 Total Protein 7.7 Albumin 4.3 Globulin 3.4 Albumin/Globulin Ratio 1.3 Procalcitonin < 0.02 TSH 5.168 H Free T4 0.83 Urine Color Yellow Urine Appearance Clear Urine pH 7.0 Ur Specific Corona 1.011 Urine Protein Negative Urine Glucose (UA) Negative Urine Ketones Negative Urine Blood Negative Urine Nitrite Negative Urine Bilirubin Negative Urine Urobilinogen Negative Ur Leukocyte Esterase 1+ H Urine WBC (Auto) 0-5 Urine RBC (Auto) 0-2 U Hyaline Cast (Auto) 0-2 U Epithel Cells (Auto) 0-2 Urine Bacteria (Auto) None Seen Adenovirus (PCR) Not Detected B. pertussis DNA (PCR) Not Detected B.parapertussis DNA PCR Not Detected C. pneumoniae DNA (PCR) Not Detected Coronavirus OC43 (PCR) Not Detected Coronavirus HKU1 (PCR) Not Detected Coronavirus 229E (PCR) Not Detected SARS-CoV-2 (PCR) Not Detected Coronavirus NL63 (PCR) Not Detected Human Metapneumovir PCR Not Detected Influenza Type A (PCR) Not Detected Influenza Type B (PCR) Not Detected M. pneumoniae (PCR) Not Detected Parainfluenza 1 (PCR) Not Detected Parainfluenza 2 (PCR) Not Detected Parainfluenza 3 (PCR) Not Detected Parainfluenza 4 (PCR) Not Detected RSV (PCR) Not Detected Entero/Rhino (PCR) Not Detected Blood Parasites ID Cancelled 06/09/24 06/09/24 06/10/24 17:30 23:54 05:24 WBC 10.51 Cancelled RBC 4.90 Cancelled Hgb 13.9 Cancelled Hct 42.1 Cancelled MCV 85.9 Cancelled MCH 28.4 Cancelled MCHC 33.0 Cancelled RDW Std Deviation 43.7 Cancelled RDW Coeff of Neena 14.1 Cancelled Plt Count 149 Cancelled MPV 11.1 Cancelled Immature Gran % (Auto) 0.3 Cancelled Neut % (Auto) 71.9 Cancelled Lymph % (Auto) 17.0 Cancelled Montour % (Auto) 10.2 Cancelled Eos % (Auto) 0.2 Cancelled Baso % (Auto) 0.4 Cancelled Neut # (Auto) 7.56 H Cancelled Lymph # (Auto) 1.79 Cancelled Montour # (Auto) 1.07 H Cancelled Eos # (Auto) 0.02 Cancelled Baso # (Auto) 0.04 Cancelled Immature Gran # (Auto) 0.03 Cancelled Absolute Nucleated RBC Cancelled Nucleated RBC % (auto) Cancelled Neutrophils % (Manual) Cancelled Band Neutrophils % Cancelled Lymphocytes % (Manual) Cancelled Prolymphocyte % Cancelled Reactive Lymphs % (Man) Cancelled Monocytes % (Manual) Cancelled Eosinophils % (Manual) Cancelled Basophils % (Manual) Cancelled Metamyelocytes % (Man) Cancelled Myelocytes % (Man) Cancelled Promyelocytes % (Man) Cancelled Blast Cells % (Manual) Cancelled Plasma Cell % (Manual) Cancelled Other Cells % Cancelled Nucleated RBC % Cancelled Neutrophils # (Manual) Cancelled Band Neutrophils # Cancelled Total Absolute Neuts Cancelled Lymphocytes # (Manual) Cancelled Prolymphocyte # Cancelled Reactive Lymphs # Cancelled Total Abs Lymphocytes Cancelled Monocytes # (Manual) Cancelled Eosinophils # (Manual) Cancelled Basophils # (Manual) Cancelled Metamyelocytes # (Man) Cancelled Myelocytes # (Manual) Cancelled Promyelocytes # (Man) Cancelled Blast Cells # (Man) Cancelled Plasma Cell # (Manual) Cancelled Other Cells # Cancelled Nucleated RBCs # (Man) Cancelled Hypersegmented Neuts Cancelled Hyposegmented Neuts Cancelled Hypogranular Neuts Cancelled Large Granular Lymphs Cancelled # Lrg Granular Lymphs Cancelled Hairy Cells Cancelled Smudge Cells Cancelled Toxic Granulation Cancelled Toxic Vacuolation Cancelled Dohle Bodies Cancelled Elizabeth Rods Cancelled Platelet Estimate Cancelled Hypogranular Platelets Cancelled Giant Platelets Cancelled Platelet Satelliting Cancelled RBC Morphology Cancelled Polychromasia Cancelled Hypochromasia Cancelled Poikilocytosis Cancelled Basophilic Stippling Cancelled Anisocytosis Cancelled Microcytosis Cancelled Macrocytosis Cancelled Spherocytes Cancelled Pappenheimer Bodies Cancelled Sickle Cells Cancelled Target Cells Cancelled Tear Drop Cells Cancelled Ovalocytes Cancelled Stomatocytes Cancelled Zelaya-Terrebonne Bodies Cancelled Echinocytes Cancelled Acanthocytes (Spur) Cancelled Rouleaux Cancelled RBC Agglutinates Cancelled Schistocytes Cancelled Sezary Cell Cancelled PT INR D-Dimer 230 Sodium 141 Potassium 3.5 Chloride 103 Carbon Dioxide 31 Anion Gap 7 BUN 18 Creatinine 0.77 Est Cr Clr Drug Dosing 46.7 eGFR 77.45 BUN/Creatinine Ratio 23.4 H Glucose 103 H Lactate Calcium 9.2 Magnesium 2.5 H Total Bilirubin AST ALT Alkaline Phosphatase Troponin I High Sens 34.3 H D B-Natriuretic Peptide Total Protein Albumin Globulin Albumin/Globulin Ratio Procalcitonin TSH Free T4 Urine Color Urine Appearance Urine pH Ur Specific Corona Urine Protein Urine Glucose (UA) Urine Ketones Urine Blood Urine Nitrite Urine Bilirubin Urine Urobilinogen Ur Leukocyte Esterase Urine WBC (Auto) Urine RBC (Auto) U Hyaline Cast (Auto) U Epithel Cells (Auto) Urine Bacteria (Auto) Adenovirus (PCR) B. pertussis DNA (PCR) B.parapertussis DNA PCR C. pneumoniae DNA (PCR) Coronavirus OC43 (PCR) Coronavirus HKU1 (PCR) Coronavirus 229E (PCR) SARS-CoV-2 (PCR) Coronavirus NL63 (PCR) Human Metapneumovir PCR Influenza Type A (PCR) Influenza Type B (PCR) M. pneumoniae (PCR) Parainfluenza 1 (PCR) Parainfluenza 2 (PCR) Parainfluenza 3 (PCR) Parainfluenza 4 (PCR) RSV (PCR) Entero/Rhino (PCR) Blood Parasites ID Cancelled 06/10/24 06/10/24 07:06 10:18 WBC 12.76 H RBC 4.77 Hgb 13.6 Hct 41.1 MCV 86.2 MCH 28.5 MCHC 33.1 RDW Std Deviation 44.8 RDW Coeff of Neena 14.2 Plt Count 155 MPV 10.5 Immature Gran % (Auto) 0.4 Neut % (Auto) 69.6 Lymph % (Auto) 17.6 Montour % (Auto) 12.0 Eos % (Auto) 0.1 Baso % (Auto) 0.3 Neut # (Auto) 8.89 H Lymph # (Auto) 2.24 Montour # (Auto) 1.53 H Eos # (Auto) 0.01 Baso # (Auto) 0.04 Immature Gran # (Auto) 0.05 Absolute Nucleated RBC Nucleated RBC % (auto) Neutrophils % (Manual) Band Neutrophils % Lymphocytes % (Manual) Prolymphocyte % Reactive Lymphs % (Man) Monocytes % (Manual) Eosinophils % (Manual) Basophils % (Manual) Metamyelocytes % (Man) Myelocytes % (Man) Promyelocytes % (Man) Blast Cells % (Manual) Plasma Cell % (Manual) Other Cells % Nucleated RBC % Neutrophils # (Manual) Band Neutrophils # Total Absolute Neuts Lymphocytes # (Manual) Prolymphocyte # Reactive Lymphs # Total Abs Lymphocytes Monocytes # (Manual) Eosinophils # (Manual) Basophils # (Manual) Metamyelocytes # (Man) Myelocytes # (Manual) Promyelocytes # (Man) Blast Cells # (Man) Plasma Cell # (Manual) Other Cells # Nucleated RBCs # (Man) Hypersegmented Neuts Hyposegmented Neuts Hypogranular Neuts Large Granular Lymphs # Lrg Granular Lymphs Hairy Cells Smudge Cells Toxic Granulation Toxic Vacuolation Dohle Bodies Elizabeth Rods Platelet Estimate Hypogranular Platelets Giant Platelets Platelet Satelliting RBC Morphology Polychromasia Hypochromasia Poikilocytosis Basophilic Stippling Anisocytosis Microcytosis Macrocytosis Spherocytes Pappenheimer Bodies Sickle Cells Target Cells Tear Drop Cells Ovalocytes Stomatocytes Zelaya-Terrebonne Bodies Echinocytes Acanthocytes (Spur) Rouleaux RBC Agglutinates Schistocytes Sezary Cell PT INR D-Dimer Sodium Potassium Chloride Carbon Dioxide Anion Gap BUN Creatinine Est Cr Clr Drug Dosing eGFR BUN/Creatinine Ratio Glucose Lactate Calcium Magnesium Total Bilirubin AST ALT Alkaline Phosphatase Troponin I High Sens 31.0 H B-Natriuretic Peptide Total Protein Albumin Globulin Albumin/Globulin Ratio Procalcitonin TSH Free T4 Urine Color Urine Appearance Urine pH Ur Specific Cor[place] Urine Protein Urine Glucose (UA) Urine Ketones Urine Blood Urine Nitrite Urine Bilirubin Urine Urobilinogen Ur Leukocyte Esterase Urine WBC (Auto) Urine RBC (Auto) U Hyaline Cast (Auto) U Epithel Cells (Auto) Urine Bacteria (Auto) Adenovirus (PCR) B. pertussis DNA (PCR) B.parapertussis DNA PCR C. pneumoniae DNA (PCR) Coronavirus OC43 (PCR) Coronavirus HKU1 (PCR) Coronavirus 229E (PCR) SARS-CoV-2 (PCR) Coronavirus NL63 (PCR) Human Metapneumovir PCR Influenza Type A (PCR) Influenza Type B (PCR) M. pneumoniae (PCR) Parainfluenza 1 (PCR) Parainfluenza 2 (PCR) Parainfluenza 3 (PCR) Parainfluenza 4 (PCR) RSV (PCR) Entero/Rhino (PCR) Blood Parasites ID Diagnostic Findings Echocardiogram 05/27/2024 The left ventricular cavity size is normal. The LV wall thickness is borderline increased (concentric). The left ventricular wall motion is normal. The qualitative LV ejection fraction is 60-64% (normal). The left ventricular diastolic function is mildly abnormal (grade I). The left atrium is mildly enlarged (35-41 ml/m^2). Mild aortic valve sclerosis is present. Mild mitral regurgitation is present. Mild tricuspid regurgitation is present. There is no evidence of pulmonary hypertension. (2) Pneumonia Laterality: bilateral Lung location: lower lobe of lung Pneumonia type: due to unspecified organism Qualified Code(s): J18.9 - Pneumonia, unspecified organism
--- NOTE | 2024-06-10 11:26 | Electrocardiogram Report ---
Test Reason : Blood Pressure : */* mmHG Vent. Rate : 108 BPM Atrial Rate : 108 BPM P-R Int : 176 ms QRS Dur : 76 ms QT Int : 336 ms P-R-T Axes : 66 -9 66 degrees QTcB Int : 450 ms Sinus tachycardia Incomplete right bundle branch block Otherwise normal ECG When compared with ECG of 07-Sep-2021 11:17, Vent. rate has increased by 44 bpm Confirmed by Connor Welch ([id number]) on 06/10/2024 11:25:57 AM Referred By: REFERRED SELF Confirmed By: Connor Welch
--- NOTE | 2024-06-10 11:32 | Electrocardiogram Report ---
Test Reason : Blood Pressure : */* mmHG Vent. Rate : 98 BPM Atrial Rate : 98 BPM P-R Int : 172 ms QRS Dur : 82 ms QT Int : 340 ms P-R-T Axes : 41 -12 55 degrees QTcB Int : 434 ms Poor data quality, interpretation may be adversely affected Normal sinus rhythm Normal ECG When compared with ECG of 09-Jun-2024 16:49, (unconfirmed) No significant change was found Confirmed by Connor Welch ([id number] on 06/10/2024 11:32:27 AM Referred By: REFERRED SELF Confirmed By: Connor Welch
[2024-06-10] MEDS: METOPROLOL SUCC 25MG EXT REL TAB PO SCH (12:18)
--- NOTE | 2024-06-10 13:27 | Neurology Consultation ---
Date of Consultation June 10, 2024 Assessment & Plan (1) Episode of shaking: These event doesn't sound consistent with typical seizure as they are bilateral with retained consciousness. it is reasonable to obtain an EEG to evaluate for a frontal lobe discharges as they can present in an abnormal way. (2) Leg cramping: The leg cramping has been occuring intermittently and i suspect it is related to degenerative spine disease and lying in bed. Family reports that at home she sta nds and it helps. Furosemide can contribute to this in some cases via the electrolyte abnormalities. Plan -- routine EEG -- PT consult Telehealth Consultation Telehealth Information Telehealth Information: I performed this visit using a real-time telehealth connection between my location and the patients location ([facility]). After connecting through interactive tele-video, patient was identified by name and date of and/or wristband check.Patient (or authorized healthcare field service representative) was informed that this was a telemedicine visit and it was being conducted confidentially over secure lines. My office door was closed and no one else was present in the room with me.Patient (or authorized healthcare field service representative) provided consent to proceed with the visit, expressed an understanding of privacy and security of the telemedicine visit, and gave permission to have a hospital field service representative in the room in order to assist with the visit and to conduct portions of the visit, as needed. I informed the patient (or authorized healthcare field service representative) that I reviewed their record and presented the opportunity for them to ask any questions regarding the visit today. The patient agreed to participate. History of Present Illness Reason for Consultation: spells of abnormal movement and leg cramping Attending Physician: Carmen Lin MD History of Present Illness Nani Villanueva is a 83F with a PMH of ILD, anxiety, who presented to the ED with a spell of abnormal movement. Her family reports that for the last 5 years or so she has had episodes of flushing and bilateral upper and lower extremity shaking. These spells last for about 30 minutes and then resolve. She is awake and interactive during them. She does feel afraid but has no impending sense of doom. She isn't incontinent. The spells can occur out of sleep or while awake. She describes this as "feeling something rolling around in her chest." Family does believe that things are getting worse. During the most recent one she was hypertensive and tachycardic during the event. Today she also had an episode of leg cramping which she does get at home also. It improved when she was able to sit up in bed. She denies headache, fevers, currently chest pain or SOB. Allergies Allergy/AdvReac Type Severity Reaction Status Date / Time iodine Allergy Severe ORAL AND Verified 06/09/24 21:04 FACIAL SWELLING methadone Allergy Severe Shakiness Verified 06/09/24 21:04 propoxyphene Allergy Severe Shakiness Verified 06/09/24 21:04 shellfish derived Allergy Severe ORAL AND Verified 06/09/24 21:04 FACIAL SWELLING clarithromycin Allergy Unknown unknown Verified 06/09/24 21:04 prednisone Allergy Unknown Shakiness Verified 06/09/24 21:04 Serotonin 5HT-3 Antagonists Allergy Unknown Anxiety Verified 06/09/24 21:04 morphine AdvReac Unknown LIGHTHEADED Verified 06/09/24 21:04 Home Medications Medication Instructions Recorded Confirmed Type albuterol sulfate 90 mcg/actuation 2 puff inhalation Q6H PRN 06/09/24 06/09/24 History aerosol inhaler (Ventolin HFA) Shortness Of Breath Or Wheezing amitriptyline 25 mg tablet 25 mg PO HS 06/09/24 06/09/24 History arformoterol 15 mcg/2 mL solution 15 mcg inhalation BID 06/09/24 06/09/24 History for nebulization budesonide 0.5 mg/2 mL suspension 0.5 mg inhalation BID 06/09/24 06/09/24 History for nebulization clonazepam 0.5 mg tablet 0.25 mg PO Q6H PRN Anxiety 06/09/24 06/09/24 History furosemide 40 mg tablet 40 mg PO UD 06/09/24 06/09/24 History levothyroxine 125 mcg tablet 125 mcg PO DAILY 06/09/24 06/09/24 History Patient History Medical History Dyslipidemia Chronic heart failure with perserved EF SOB (shortness of breath) Multifactorial per pulmonary- chronic HF, chronic hypoxic respiratory failu re, possible ILD, asthma, obesity, Covid infection 07/2020, multifocal consolidations/scarring, non allergic rhinitis History of pneumonia 12/2020 - required cont oxygen upon d/c from hospital and remains on Fear of needles Limb alert care status LUE Difficult intravenous access required assistance from IV team in past History of COVID-19 06/2020; asymptomatic Sleep apnea unable to tolerate CPAP History of home oxygen therapy 2 lpm cont- secondary to chronic hypoxic respiratory failure per pulm Tachycardia ANXIETY RELATED PER PATIENT. follows with Dr. Arguello Breast cancer Left breast 2001- sx + radiation GERD (gastroesophageal reflux disease) Hypothyroidism Anxiety Hx of deep venous thrombosis LLE - "years ago" - r/t injury Asthma Follows with [facility] Irene. Uses PRN neb daily Surgical History History of lumpectomy of left breast History of breast biopsy History of removal of cyst History of bilateral tubal ligation History of arthroscopy BILAT KNEES History of esophagogastroduodenoscopy (EGD) History of colonoscopy Hx of hernia repair History of cholecystectomy Social History Smoking Status: Never smoker Second Hand Exposure: Yes (sister smokes); Do You Dip or Chew Tobacco: No; Hx Alcohol Use: No Hx Substance Use: No Preferred Language: [place] Communication Ability: Effective Mirror Polisher Required: No Beliefs That Will Affect Care: None Current Living Situation: Spouse Other Information That Helps Us Care for You: No Feels Safe at Home: Yes Safety Concerns: Feels Safe At This Time Assistive Devices: Denture - Upper, Oxygen - Continuous and Walker Physical Exam NEUROLOGIC EXAMINATION: Mental Status:alert, oriented to time, place, person, normal recent memory, normal remote memory, normal attention span, normal concentration, normal language, and normal fund of knowledge Cranial Nerves: CN 2 - no visual defect on confrontation and pupils round, equal, reactive to light CN 3, 4, 6 - extra-ocular movements intact and no nystagmus CN 5 - facial sensation intact CN 7 - no facial asymmetry CN 8 - intact hearing CN 9, 10 - palate symmetric, normal gag CN 11 - good shoulder shrug CN 12 - tongue midline MOTOR: Strength was at least antigravity throughout, Pronator drift was absent, and There were no abnormal movements SENSATION: intact GAIT: deferred COORDINATION: no ataxia with finger to nose testing and heel to valentine testing REFLEXES: cannot assess over telemedicine Results & Data Vital Signs (Past 12 Hours) Vital Signs Temp Pulse Pulse Pulse Resp BP Pulse Ox 06/10/24 11:47 36.7 C 92 H 16 153/79 H 97 06/10/24 08:14 36.8 C 101 H 16 139/80 94 06/10/24 08:00 06/10/24 08:00 105 H 06/10/24 07:03 111 H 17 93 06/10/24 03:11 36.7 C 92 H 17 130/83 95 06/10/24 01:40 93 H 16 94 O2 Del Method O2 Flow Rate 06/10/24 11:47 Nasal Cannula 2 06/10/24 08:14 Nasal Cannula 2 06/10/24 08:00 Nasal Cannula 2 06/10/24 08:00 06/10/24 07:03 Nasal Cannula 2 06/10/24 03:11 Nasal Cannula 2 06/10/24 01:40 Nasal Cannula 2 Laboratory Results Abnormal Lab Results 06/09/24 06/09/24 06/09/24 16:27 16:53 17:05 WBC Cancelled RBC Cancelled Hgb Cancelled Hct Cancelled MCV Cancelled MCH Cancelled MCHC Cancelled RDW Std Deviation Cancelled RDW Coeff of Neena Cancelled Plt Count Cancelled MPV Cancelled Immature Gran % (Auto) Cancelled Neut % (Auto) Cancelled Lymph % (Auto) Cancelled Price % (Auto) Cancelled Eos % (Auto) Cancelled Baso % (Auto) Cancelled Neut # (Auto) Cancelled Lymph # (Auto) Cancelled Price # (Auto) Cancelled Eos # (Auto) Cancelled Baso # (Auto) Cancelled Immature Gran # (Auto) Cancelled Absolute Nucleated RBC Cancelled Nucleated RBC % (auto) Cancelled Neutrophils % (Manual) Cancelled Band Neutrophils % Cancelled Lymphocytes % (Manual) Cancelled Prolymphocyte % Cancelled Reactive Lymphs % (Man) Cancelled Monocytes % (Manual) Cancelled Eosinophils % (Manual) Cancelled Basophils % (Manual) Cancelled Metamyelocytes % (Man) Cancelled Myelocytes % (Man) Cancelled Promyelocytes % (Man) Cancelled Blast Cells % (Manual) Cancelled Plasma Cell % (Manual) Cancelled Other Cells % Cancelled Nucleated RBC % Cancelled Neutrophils # (Manual) Cancelled Band Neutrophils # Cancelled Total Absolute Neuts Cancelled Lymphocytes # (Manual) Cancelled Prolymphocyte # Cancelled Reactive Lymphs # Cancelled Total Abs Lymphocytes Cancelled Monocytes # (Manual) Cancelled Eosinophils # (Manual) Cancelled Basophils # (Manual) Cancelled Metamyelocytes # (Man) Cancelled Myelocytes # (Manual) Cancelled Promyelocytes # (Man) Cancelled Blast Cells # (Man) Cancelled Plasma Cell # (Manual) Cancelled Other Cells # Cancelled Nucleated RBCs # (Man) Cancelled Hypersegmented Neuts Cancelled Hyposegmented Neuts Cancelled Hypogranular Neuts Cancelled Large Granular Lymphs Cancelled # Lrg Granular Lymphs Cancelled Hairy Cells Cancelled Smudge Cells Cancelled Toxic Granulation Cancelled Toxic Vacuolation Cancelled Dohle Bodies Cancelled Elizabeth Rods Cancelled Platelet Estimate Cancelled Hypogranular Platelets Cancelled Giant Platelets Cancelled Platelet Satelliting Cancelled RBC Morphology Cancelled Polychromasia Cancelled Hypochromasia Cancelled Poikilocytosis Cancelled Basophilic Stippling Cancelled Anisocytosis Cancelled Microcytosis Cancelled Macrocytosis Cancelled Spherocytes Cancelled Pappenheimer Bodies Cancelled Sickle Cells Cancelled Target Cells Cancelled Tear Drop Cells Cancelled Ovalocytes Cancelled Stomatocytes Cancelled Zelaya-Plumwood Bodies Cancelled Echinocytes Cancelled Acanthocytes (Spur) Cancelled Rouleaux Cancelled RBC Agglutinates Cancelled Schistocytes Cancelled Sezary Cell Cancelled PT 11.0 INR 1.0 D-Dimer Sodium 143 Potassium 3.7 Chloride 104 Carbon Dioxide 32 Anion Gap 7 BUN 20 Creatinine 0.82 Est Cr Clr Drug Dosing 44.1 eGFR 71.82 BUN/Creatinine Ratio 24.4 H Glucose 132 H Lactate 0.6 Calcium 9.7 Magnesium 2.1 Total Bilirubin 0.6 AST 21 ALT 14 Alkaline Phosphatase 81 Troponin I High Sens 11.0 B-Natriuretic Peptide 59 Total Protein 7.7 Albumin 4.3 Globulin 3.4 Albumin/Globulin Ratio 1.3 Procalcitonin < 0.02 TSH 5.168 H Free T4 0.83 Urine Color Yellow Urine Appearance Clear Urine pH 7.0 Ur Specific [place] 1.011 Urine Protein Negative Urine Glucose (UA) Negative Urine Ketones Negative Urine Blood Negative Urine Nitrite Negative Urine Bilirubin Negative Urine Urobilinogen Negative Ur Leukocyte Esterase 1+ H Urine WBC (Auto) 0-5 Urine RBC (Auto) 0-2 U Hyaline Cast (Auto) 0-2 U Epithel Cells (Auto) 0-2 Urine Bacteria (Auto) None Seen Adenovirus (PCR) Not Detected B. pertussis DNA (PCR) Not Detected B.parapertussis DNA PCR Not Detected C. pneumoniae DNA (PCR) Not Detected Coronavirus OC43 (PCR) Not Detected Coronavirus HKU1 (PCR) Not Detected Coronavirus 229E (PCR) Not Detected SARS-CoV-2 (PCR) Not Detected Coronavirus NL63 (PCR) Not Detected Human Metapneumovir PCR Not Detected Influenza Type A (PCR) Not Detected Influenza Type B (PCR) Not Detected M. pneumoniae (PCR) Not Detected Parainfluenza 1 (PCR) Not Detected Parainfluenza 2 (PCR) Not Detected Parainfluenza 3 (PCR) Not Detected Parainfluenza 4 (PCR) Not Detected RSV (PCR) Not Detected Entero/Rhino (PCR) Not Detected Blood Parasites ID Cancelled 06/09/24 06/09/24 06/10/24 17:30 23:54 05:24 WBC 10.51 Cancelled RBC 4.90 Cancelled Hgb 13.9 Cancelled Hct 42.1 Cancelled MCV 85.9 Cancelled MCH 28.4 Cancelled MCHC 33.0 Cancelled RDW Std Deviation 43.7 Cancelled RDW Coeff of Neena 14.1 Cancelled Plt Count 149 Cancelled MPV 11.1 Cancelled Immature Gran % (Auto) 0.3 Cancelled Neut % (Auto) 71.9 Cancelled Lymph % (Auto) 17.0 Cancelled Price % (Auto) 10.2 Cancelled Eos % (Auto) 0.2 Cancelled Baso % (Auto) 0.4 Cancelled Neut # (Auto) 7.56 H Cancelled Lymph # (Auto) 1.79 Cancelled Price # (Auto) 1.07 H Cancelled Eos # (Auto) 0.02 Cancelled Baso # (Auto) 0.04 Cancelled Immature Gran # (Auto) 0.03 Cancelled Absolute Nucleated RBC Cancelled Nucleated RBC % (auto) Cancelled Neutrophils % (Manual) Cancelled Band Neutrophils % Cancelled Lymphocytes % (Manual) Cancelled Prolymphocyte % Cancelled Reactive Lymphs % (Man) Cancelled Monocytes % (Manual) Cancelled Eosinophils % (Manual) Cancelled Basophils % (Manual) Cancelled Metamyelocytes % (Man) Cancelled Myelocytes % (Man) Cancelled Promyelocytes % (Man) Cancelled Blast Cells % (Manual) Cancelled Plasma Cell % (Manual) Cancelled Other Cells % Cancelled Nucleated RBC % Cancelled Neutrophils # (Manual) Cancelled Band Neutrophils # Cancelled Total Absolute Neuts Cancelled Lymphocytes # (Manual) Cancelled Prolymphocyte # Cancelled Reactive Lymphs # Cancelled Total Abs Lymphocytes Cancelled Monocytes # (Manual) Cancelled Eosinophils # (Manual) Cancelled Basophils # (Manual) Cancelled Metamyelocytes # (Man) Cancelled Myelocytes # (Manual) Cancelled Promyelocytes # (Man) Cancelled Blast Cells # (Man) Cancelled Plasma Cell # (Manual) Cancelled Other Cells # Cancelled Nucleated RBCs # (Man) Cancelled Hypersegmented Neuts Cancelled Hyposegmented Neuts Cancelled Hypogranular Neuts Cancelled Large Granular Lymphs Cancelled # Lrg Granular Lymphs Cancelled Hairy Cells Cancelled Smudge Cells Cancelled Toxic Granulation Cancelled Toxic Vacuolation Cancelled Dohle Bodies Cancelled Elizabeth Rods Cancelled Platelet Estimate Cancelled Hypogranular Platelets Cancelled Giant Platelets Cancelled Platelet Satelliting Cancelled RBC Morphology Cancelled Polychromasia Cancelled Hypochromasia Cancelled Poikilocytosis Cancelled Basophilic Stippling Cancelled Anisocytosis Cancelled Microcytosis Cancelled Macrocytosis Cancelled Spherocytes Cancelled Pappenheimer Bodies Cancelled Sickle Cells Cancelled Target Cells Cancelled Tear Drop Cells Cancelled Ovalocytes Cancelled Stomatocytes Cancelled Zelaya-Plumwood Bodies Cancelled Echinocytes Cancelled Acanthocytes (Spur) Cancelled Rouleaux Cancelled RBC Agglutinates Cancelled Schistocytes Cancelled Sezary Cell Cancelled PT INR D-Dimer 230 Sodium 141 Potassium 3.5 Chloride 103 Carbon Dioxide 31 Anion Gap 7 BUN 18 Creatinine 0.77 Est Cr Clr Drug Dosing 46.7 eGFR 77.45 BUN/Creatinine Ratio 23.4 H Glucose 103 H Lactate Calcium 9.2 Magnesium 2.5 H Total Bilirubin AST ALT Alkaline Phosphatase Troponin I High Sens 34.3 H D B-Natriuretic Peptide Total Protein Albumin Globulin Albumin/Globulin Ratio Procalcitonin TSH Free T4 Urine Color Urine Appearance Urine pH Ur Specific [place] Urine Protein Urine Glucose (UA) Urine Ketones Urine Blood Urine Nitrite Urine Bilirubin Urine Urobilinogen Ur Leukocyte Esterase Urine WBC (Auto) Urine RBC (Auto) U Hyaline Cast (Auto) U Epithel Cells (Auto) Urine Bacteria (Auto) Adenovirus (PCR) B. pertussis DNA (PCR) B.parapertussis DNA PCR C. pneumoniae DNA (PCR) Coronavirus OC43 (PCR) Coronavirus HKU1 (PCR) Coronavirus 229E (PCR) SARS-CoV-2 (PCR) Coronavirus NL63 (PCR) Human Metapneumovir PCR Influenza Type A (PCR) Influenza Type B (PCR) M. pneumoniae (PCR) Parainfluenza 1 (PCR) Parainfluenza 2 (PCR) Parainfluenza 3 (PCR) Parainfluenza 4 (PCR) RSV (PCR) Entero/Rhino (PCR) Blood Parasites ID Cancelled 06/10/24 06/10/24 07:06 10:18 WBC 12.76 H RBC 4.77 Hgb 13.6 Hct 41.1 MCV 86.2 MCH 28.5 MCHC 33.1 RDW Std Deviation 44.8 RDW Coeff of Neena 14.2 Plt Count 155 MPV 10.5 Immature Gran % (Auto) 0.4 Neut % (Auto) 69.6 Lymph % (Auto) 17.6 Price % (Auto) 12.0 Eos % (Auto) 0.1 Baso % (Auto) 0.3 Neut # (Auto) 8.89 H Lymph # (Auto) 2.24 Price # (Auto) 1.53 H Eos # (Auto) 0.01 Baso # (Auto) 0.04 Immature Gran # (Auto) 0.05 Absolute Nucleated RBC Nucleated RBC % (auto) Neutrophils % (Manual) Band Neutrophils % Lymphocytes % (Manual) Prolymphocyte % Reactive Lymphs % (Man) Monocytes % (Manual) Eosinophils % (Manual) Basophils % (Manual) Metamyelocytes % (Man) Myelocytes % (Man) Promyelocytes % (Man) Blast Cells % (Manual) Plasma Cell % (Manual) Other Cells % Nucleated RBC % Neutrophils # (Manual) Band Neutrophils # Total Absolute Neuts Lymphocytes # (Manual) Prolymphocyte # Reactive Lymphs # Total Abs Lymphocytes Monocytes # (Manual) Eosinophils # (Manual) Basophils # (Manual) Metamyelocytes # (Man) Myelocytes # (Manual) Promyelocytes # (Man) Blast Cells # (Man) Plasma Cell # (Manual) Other Cells # Nucleated RBCs # (Man) Hypersegmented Neuts Hyposegmented Neuts Hypogranular Neuts Large Granular Lymphs # Lrg Granular Lymphs Hairy Cells Smudge Cells Toxic Granulation Toxic Vacuolation Dohle Bodies Elizabeth Rods Platelet Estimate Hypogranular Platelets Giant Platelets Platelet Satelliting RBC Morphology Polychromasia Hypochromasia Poikilocytosis Basophilic Stippling Anisocytosis Microcytosis Macrocytosis Spherocytes Pappenheimer Bodies Sickle Cells Target Cells Tear Drop Cells Ovalocytes Stomatocytes Zelaya-Plumwood Bodies Echinocytes Acanthocytes (Spur) Rouleaux RBC Agglutinates Schistocytes Sezary Cell PT INR D-Dimer Sodium Potassium Chloride Carbon Dioxide Anion Gap BUN Creatinine Est Cr Clr Drug Dosing eGFR BUN/Creatinine Ratio Glucose Lactate Calcium Magnesium Total Bilirubin AST ALT Alkaline Phosphatase Troponin I High Sens 31.0 H B-Natriuretic Peptide Total Protein Albumin Globulin Albumin/Globulin Ratio Procalcitonin TSH Free T4 Urine Color Urine Appearance Urine pH Ur Specific [place] Urine Protein Urine Glucose (UA) Urine Ketones Urine Blood Urine Nitrite Urine Bilirubin Urine Urobilinogen Ur Leukocyte Esterase Urine WBC (Auto) Urine RBC (Auto) U Hyaline Cast (Auto) U Epithel Cells (Auto) Urine Bacteria (Auto) Adenovirus (PCR) B. pertussis DNA (PCR) B.parapertussis DNA PCR C. pneumoniae DNA (PCR) Coronavirus OC43 (PCR) Coronavirus HKU1 (PCR) Coronavirus 229E (PCR) SARS-CoV-2 (PCR) Coronavirus NL63 (PCR) Human Metapneumovir PCR Influenza Type A (PCR) Influenza Type B (PCR) M. pneumoniae (PCR) Parainfluenza 1 (PCR) Parainfluenza 2 (PCR) Parainfluenza 3 (PCR) Parainfluenza 4 (PCR) RSV (PCR) Entero/Rhino (PCR) Blood Parasites ID Diagnostic Findings Chest X-Ray 06/09/24 16:15 EXAM: Radiograph of the Chest 1 View INDICATION: Shortness of breath and palpitations. TECHNIQUE: Frontal view of the chest. COMPARISON: No relevant prior studies available. FINDINGS: Limitations: Portions of the neck obscure a small portion of the left apex. Lungs and pleural spaces: No pleural effusion. No visible pneumothorax allowing for overlapping soft tissue density. Heart: Shape and configuration within normal limits allowing for technique. Mediastinum: Normal contour. Bones/joints: Degenerative changes noted throughout the spine. No acute osseous abnormality seen. Soft tissues: No abnormality noted. No radiopaque foreign body noted. Upper abdomen: No abnormality noted. IMPRESSION: Limited as above. No acute cardiopulmonary disease. ACT 112: Negative or not required by law. Electronically signed by Radha Rondon 06-09-2024 4:53 PM Venous Doppler Study 06/09/24 19:40 Exam(s): US VENOUS BILATERAL LOWER EXTREMITIES EXAM: US Duplex Bilateral Lower Extremities Veins CLINICAL HISTORY: Swelling. TECHNIQUE: Real-time duplex ultrasound scan of the bilateral lower extremity veins integrating B-mode two-dimensional vascular structure, Doppler spectral analysis, color flow Doppler imaging and compression. COMPARISON: No relevant prior studies available. FINDINGS: Right deep veins: Unremarkable. No Deep vein thrombosis in the right common femoral, femoral, proximal deep femoral or popliteal veins. The veins demonstrate normal color flow, are normally compressible, with normal phasic flow and/or augmentation response. Right superficial veins: Unremarkable. No thrombus in the visualized right great saphenous vein. Left deep veins: Unremarkable. No Deep vein thrombosis in the left common femoral, femoral, proximal deep femoral or popliteal veins. The veins demonstrate normal color flow, are normally compressible, with normal phasic flow and/or augmentation response. Left superficial veins: Unremarkable. No thrombus in the visualized left great saphenous vein. Soft tissues: Nonspecific subcutaneous edema of the left. No popliteal cyst. IMPRESSION: No deep vein thrombosis of either lower extremity. Electronically signed by: Teri Howard MD 06/10/24 00:22 AM Abdomen/Pelvis CT 06/10/24 08:00 CT OF THE ABDOMEN AND PELVIS WITHOUT CONTRAST CLINICAL HISTORY: Early satiety. COMPARISON STUDY: CT of the abdomen and pelvis December 23, 2010. TECHNIQUE: Axial images of the abdomen and pelvis were obtained without IV contrast. Images were reviewed in the axial, sagittal, and coronal planes. Automated exposure control was utilized for the study. A dose lowering technique was utilized adhering to the principles of ALARA. FINDINGS: Scattered groundglass opacities and tree-in-bud nodules within the visualized lower lungs are present. There is a trace left pleural effusion. No pneumatosis, free air or portal venous gas is present. There are no renal, ureteral or bladder calculi. There is no hydronephrosis. Evaluation of the remainder of the abdomen and pelvis is suboptimal on this unenhanced examination. There is no biliary ductal dilatation status post cholecystectomy. Spleen, adrenal glands and pancreas are unremarkable. There is a diverticulum of the second portion of the duodenum. There is extensive calcified atherosclerotic plaque within the abdominal aorta. Caliber of the abdominal aorta is normal. There is no evidence for a bowel obstruction. Scattered colonic diverticula are present. There is no evidence for acute diverticulitis. There are no fluid collections. There is no ascites. No enlarged lymph nodes are present. There are no suspicious lesions within the visualized skeletal structures. IMPRESSION: 1. Scattered groundglass opacities and tree-in-bud nodules within the lower lungs consistent with an infectious process. 2. No acute process within the abdomen or pelvis. No bowel obstruction. 3. No evidence for malignancy within the abdomen or pelvis although sensitivity diminished on unenhanced exam. ACT 112: Negative or not required by law. Electronically signed by: Johnnie Hdz M.D. 06/10/2024 9:28 AM
[2024-06-10 14:04] LABS: C Reactive Protein 12.21 mg/dl (0-0.5)
[2024-06-10] MEDS: clonazePAM 0.5 MG TAB PO PRN (14:32)
--- NOTE | 2024-06-10 17:27 | Hospitalist Progress Note ---
Date of Service June 10, 2024 Assessment & Plan (1) Tachycardia: Plan: Ms. 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 Family reports that patient has experienced episodic tremors and cramps; however, there is no clear factor contributing. Events do not seem to be correlated to bronchodilators, as the episodes even occur in the middle of the night awakening patient from sleep, many hours from treatments. #Shaking #Leg cramps ESR 61, CRP 12.21 and CK 204 Unclear etiology at this time Discussed with Neurology about case -Could be frontal lobe discharges, therefore obtain EEG No clear metabolic abnormalities to explain cramps Will order iron studies for cramps hold statin #Abnormal CT lungs with scattered tree-bud opacities, but no cough, resp symptoms, fevers leukocytosis potentially in response to tremulous events Procal ordered monitor resp status and fever curve #Sinus Tachycardia #Elevated troponin likely demand iso HTN, also elevated CK Feeling of shakiness and elevated blood pressure Troponin and BNP okay Had echo on 05/27/2024 which showed EF of 60 to 64% and grade 1 diastolic CHF. She also had Zio patch as outpatient as she was having quivering sensations and funny feeling in the chest which showed episodes of SVT possible atrial tachycardia with variable block We will monitor on telemetry -EKG for concern of rhythm change Respiratory bio fire negative IV Lopressor as needed Consult cardiology : will trial low dose BB #Hypertension metoprolol 12.5mg qam Will monitor #Hypothyroidism On Synthyroid tsh is 5.1 but free T4 ok at 0.83. followup #Chronic respiratory failure with hypoxia on 2 L oxygen #COPD #interstitial lung disease # asthma Continue home inhalers #Chronic diastolic CHF Continue home Lasix #GERD On Protonix #History of breast cancer S/p lumpectomy and radiation treatment #general anxiety disorder On Klonopin DVT prophylaxis Heparin subcu Disposition Telemetry Full code Admission and Anticipated Discharge Date Admission Date: June 09, 2024 Subjective ROQUEO, reports symptoms of intense leg cramping and tremors Denies fevers chills cough or wheezing States that she experienced the cramping this morning but it resolved Family at bedside: less likely that bronchodilators contributing to symptoms as patient has these episodes sporadically--sometimes even waking from sleep Physical Exam Constitutional: WD/WN, vitals as above Respiratory: normal respiratory effort, lungs clear to auscultation (diminished bibasilar ) Results & Data Results & Data Vital Signs (Past 12 Hours) Vital Signs Temp Pulse Pulse Resp BP Pulse Ox O2 Del Method 06/10/24 15:42 37.5 C 89 16 105/69 94 Nasal Cannula 06/10/24 15:34 96 H 06/10/24 11:47 36.7 C 92 H 16 153/79 H 97 Nasal Cannula 06/10/24 08:14 36.8 C 101 H 16 139/80 94 Nasal Cannula 06/10/24 08:00 Nasal Cannula 06/10/24 08:00 105 H 06/10/24 07:03 111 H 17 93 Nasal Cannula O2 Flow Rate 06/10/24 15:42 2 06/10/24 15:34 06/10/24 11:47 2 06/10/24 08:14 2 06/10/24 08:00 2 06/10/24 08:00 06/10/24 07:03 2 Laboratory Results Short CBC 06/09/24 06/10/24 06/10/24 Range/Units 17:30 05:24 07:06 WBC 10.51 Cancelled 12.76 H (4.8-10.8) K/ul Hgb 13.9 Cancelled 13.6 (12.0-16.0) g/dl Hct 42.1 Cancelled 41.1 (37.0-47.0) % Plt Count 149 Cancelled 155 (130-400) K/uL BMP 06/10/24 05:24 Sodium 141 Potassium 3.5 Chloride 103 Carbon Dioxide 31 BUN 18 Creatinine 0.77 Glucose 103 H Calcium 9.2 Cardiac Enzymes 06/10/24 06/10/24 Range/Units 07:17 10:18 Total Creatine Kinase Cancelled 204 H Urine 06/09/24 Range/Units 17:05 Urine Color Yellow Urine Appearance Clear (Clear) Urine pH 7.0 (4.5-7.5) Ur Specific [place] 1.011 (1.000-1.030) Urine Protein Negative (Negative) Urine Glucose (UA) Negative (Negative) Medications Administered Home Medications Medication Instructions Recorded Confirmed Last Taken albuterol sulfate 90 mcg/actuation 2 puff inhalation Q6H PRN 06/09/24 06/09/24 Unknown aerosol inhaler (Ventolin HFA) Shortness Of Breath Or Wheezing amitriptyline 25 mg tablet 25 mg PO HS 06/09/24 06/09/24 Unknown arformoterol 15 mcg/2 mL solution 15 mcg inhalation BID 06/09/24 06/09/24 Unknown for nebulization budesonide 0.5 mg/2 mL suspension 0.5 mg inhalation BID 06/09/24 06/09/24 Unknown for nebulization clonazepam 0.5 mg tablet 0.25 mg PO Q6H PRN Anxiety 06/09/24 06/09/24 Unknown furosemide 40 mg tablet 40 mg PO UD 06/09/24 06/09/24 Unknown levothyroxine 125 mcg tablet 125 mcg PO DAILY 06/09/24 06/09/24 Unknown Active Medications Generic Name Dose Route Start Last Admin Trade Name Freq PRN Reason Stop Dose Admin Amitriptyline HCl 25 mg 06/09/24 23:45 06/10/24 01:15 Amitriptyline Hcl 25 Mg Tab PO 07/09/24 23:44 25 mg HS MILY Administration Budesonide 0.5 mg 06/09/24 23:45 06/10/24 07:02 Budesonide 0.5 Mg/2 Ml Vial (Pulmicort) INH 07/09/24 23:44 0.5 mg BIDR MILY Administration Clonazepam 0.25 mg 06/09/24 23:45 06/10/24 14:32 Clonazepam 0.5 Mg Tab PO 07/09/24 23:44 0.25 mg Q6H PRN Administration Anxiety Formoterol Fumarate 20 mcg 06/09/24 23:45 06/10/24 07:02 Formoterol 20 Mcg/2 Ml Vial INH 07/09/24 23:44 20 mcg BIDR MILY Administration Furosemide 40 mg 06/10/24 09:00 06/10/24 14:20 Furosemide 40 Mg Tab PO 07/10/24 08:59 40 mg BID@0900,1400 MILY Administration Heparin Sodium (Porcine) 5,000 units 06/09/24 23:45 06/10/24 14:31 Heparin Sod 5,000 Unit/0.5 Ml Vial SQ 07/09/24 23:44 5,000 units Q8 MILY Administration Levothyroxine Sodium 125 mcg 06/10/24 06:30 06/10/24 06:54 Levothyroxine Sodium 125 Mcg Tablet PO 07/10/24 06:29 125 mcg DAILYBB MILY Administration Metoprolol Succinate 12.5 mg 06/10/24 12:00 06/10/24 12:18 Metoprolol Succ 25mg Ext Rel Tab PO 07/10/24 11:59 12.5 mg QAM MILY Administration Pantoprazole Sodium 40 mg 06/10/24 09:00 06/10/24 08:53 Pantoprazole 40 Mg Tab PO 07/10/24 08:59 40 mg DAILY MILY Administration Rosuvastatin Calcium 20 mg 06/10/24 09:00 06/10/24 08:53 Rosuvastatin Calcium 20 Mg Tab PO 07/10/24 08:59 20 mg DAILY MILY Administration
[2024-06-10] MEDS: SODIUM CHLORIDE 0.9% 1,000 ML IV SCH (17:56)
[2024-06-10] MEDS: METOPROLOL TARTRATE 1 MG/ML VIAL IV PRN (19:29)
[2024-06-10] MEDS: ACETAMINOPHEN 325 MG TAB PO PRN (21:55)
[2024-06-11 08:40] LABS: BUN Creatinine Ratio 16.8 (10-20); Calcium 9.1 mg/dl (8.6-10.3); Creatinine Clr Calc Pharmacy 18.8 ml/min; Potassium 3.7 mmol/L (3.5-5.1)
[2024-06-11 08:52] LABS: Ferritin 251.3 ng/ml (8-388)
[2024-06-11 08:56] LABS: Folate (Folic Acid),Ser orPlas 17.84 ng/ml (>5.38)
--- NOTE | 2024-06-11 12:15 | Hospitalist Progress Note ---
Date of Service June 11, 2024 Assessment & Plan (1) Tachycardia: Plan: Ms. 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 Family reports that patient has experienced episodic tremors and cramps; however, there is no clear factor contributing. Events do not seem to be correlated to bronchodilators, as the episodes even occur in the middle of the night awakening patient from sleep, many hours from treatments. There is no sign of infectious process. UA is clean from admission. There are changes in bases of lungs, but these same changes are reflected in ct report from 2020--patient is on stable oxygen at this time. Patient does not have cough, fevers, or other infectious signs, more so oxygen requirements are stable. Procal is 0.06. Therefore will refrain from starting antibiotics at this time given no sign of infection Question of myositis/inflammatory myopathy given proximal cramping and tremors, mildly ck elevation and esr/crp. ELISA panel, ldh and aldolase ordered. Statin discontinued. Contacted Rheumatology who did not feel this was the case. Steroids deferred. As of 06/11, patient without cramping--therefore it is possible these cramps may be related to hypomagnesia from bid lasix. However, labs with JORGE--potentially 2/2 large fluctuations of BP. Holding furosemide at this time. Spoke at length with family, discussed that there is not a clear etiology of these tremor episodes and EEG is pending. PT/OT ordered. Attempted speech given ? of aspiration previously, however, VSS will not be available until 06/17, therefore can be persued as op. #JORGE CR 0.77 to 1.91 question if prerenal 2/2 bp fluctuations reported UA on admission unremarkable IVF at this time encourage po Hold furosemide BID (on it for lymphedema) resume as able Repeat BMP in am #Shaking, intermittent generalized tremors #Leg cramps *resolved ESR 61, CRP 12.21 and CK 204 Unclear etiology at this time Discussed with Neurology about case -Could be frontal lobe discharges, therefore obtain EEG [ ] Follow up eeg No clear metabolic abnormalities to explain cramps -Low iron, but less likely contributing -start daily po supplementation hold statin for now: ck remains elevated Discussed with Dr Perkins: less likely an inflammatory myopathy, inflammatory markers likely related to ongoing lung process #Abnormal CT lungs with scattered tree-bud opacities, but no cough, resp symptoms, fevers leukocytosis potentially in response to tremulous events Procal 0.06 monitor resp status and fever curve stable oxygen, no cough, no symptoms, no sputum production #Sinus Tachycardia #Elevated troponin likely demand iso HTN, also elevated CK Feeling of shakiness and elevated blood pressure Troponin and BNP okay Had echo on 05/27/2024 which showed EF of 60 to 64% and grade 1 diastolic CHF. She also had Zio patch as outpatient as she was having quivering sensations and funny feeling in the chest which showed episodes of SVT possible atrial tachycardia with variable block We will monitor on telemetry -EKG for concern of rhythm change Respiratory bio fire negative IV Lopressor as needed Consult cardiology : will trial low dose BB increased metoprolol from 12.5mg to 25mg daily started magnesium #Hypertension metoprolol 12.5mg qam Will monitor #Hypothyroidism On Synthyroid tsh is 5.1 but free T4 ok at 0.83. followup #Chronic respiratory failure with hypoxia on 2 L oxygen #COPD #interstitial lung disease # asthma Continue home inhalers #Chronic diastolic CHF Continue home Lasix (hold for now) #GERD On Protonix #History of breast cancer S/p lumpectomy and radiation treatment #general anxiety disorder On Klonopin DVT prophylaxis Heparin subcu Disposition Telemetry Full code Admission and Anticipated Discharge Date Admission Date: June 09, 2024 Subjective Patient reports awakening with tremors in middle of night, tachycardic during event, given IV lopressor No cramping reported however Denies cough, SOB, fevers, chills reports no changes in urination, eating or other concerns Physical Exam Constitutional: WD/WN, vitals as above Respiratory: diminished bilaterally Cardiovascular: tachycardic, regular Skin: BLE nonpitting edema, stable per patient trace venous stasis changes Results & Data Results & Data Vital Signs (Past 12 Hours) Vital Signs Temp Pulse Pulse Resp BP Pulse Ox O2 Del Method 06/11/24 11:19 36.6 C 85 18 122/70 97 Nasal Cannula 06/11/24 09:54 Nasal Cannula 06/11/24 09:21 36.6 C 98 H 16 114/72 90 Nasal Cannula 06/11/24 07:03 100 H 18 93 Nasal Cannula 06/11/24 02:50 83 83 22 98/56 L 93 Nasal Cannula O2 Flow Rate 06/11/24 11:19 3 06/11/24 09:54 3 06/11/24 09:21 3 06/11/24 07:03 2 06/11/24 02:50 2 Laboratory Results Short CBC 06/11/24 06/11/24 06/11/24 Range/Units 07:37 09:28 12:06 WBC Cancelled Cancelled 12.05 H Hgb Cancelled Cancelled 13.4 Hct Cancelled Cancelled 40.0 Plt Count Cancelled Cancelled [place] 06/11/24 07:37 Sodium 141 Potassium 3.7 Chloride 100 Carbon Dioxide 27 BUN 32 H Creatinine 1.91 H D Glucose 74 Calcium 9.1 Cardiac Enzymes 06/11/24 Range/Units 07:37 Total Creatine Kinase 211 H (26-192) U/L Liver Function 06/11/24 Range/Units 07:37 Total Bilirubin 0.9 (0.2-1.0) mg/dl Direct Bilirubin 0.1 (0-0.2) mg/dl AST 22 (13-39) U/L ALT 10 (7-52) U/L Alkaline Phosphatase 71 (34-104) U/L Albumin 3.8 (3.4-5.0) gm/dl Medications Administered Home Medications Medication Instructions Recorded Confirmed Last Taken albuterol sulfate 90 mcg/actuation 2 puff inhalation Q6H PRN 06/09/24 06/09/24 Unknown aerosol inhaler (Ventolin HFA) Shortness Of Breath Or Wheezing amitriptyline 25 mg tablet 25 mg PO HS 06/09/24 06/09/24 Unknown arformoterol 15 mcg/2 mL solution 15 mcg inhalation BID 06/09/24 06/09/24 Unknown for nebulization budesonide 0.5 mg/2 mL suspension 0.5 mg inhalation BID 06/09/24 06/09/24 Unknown for nebulization clonazepam 0.5 mg tablet 0.25 mg PO Q6H PRN Anxiety 06/09/24 06/09/24 Unknown furosemide 40 mg tablet 40 mg PO UD 06/09/24 06/09/24 Unknown levothyroxine 125 mcg tablet 125 mcg PO DAILY 06/09/24 06/09/24 Unknown Active Medications Generic Name Dose Route Start Last Admin Trade Name Freq PRN Reason Stop Dose Admin Acetaminophen 650 mg 06/09/24 23:45 06/10/24 21:55 Acetaminophen 325 Mg Tab PO 07/09/24 23:44 650 mg Q4H PRN Administration Pain or Fever Amitriptyline HCl 25 mg 06/09/24 23:45 06/10/24 21:41 Amitriptyline Hcl 25 Mg Tab PO 07/09/24 23:44 25 mg HS MILY Administration Budesonide 0.5 mg 06/09/24 23:45 06/11/24 07:02 Budesonide 0.5 Mg/2 Ml Vial (Pulmicort) INH 07/09/24 23:44 0.5 mg BIDR MILY Administration Clonazepam 0.25 mg 06/09/24 23:45 06/10/24 21:54 Clonazepam 0.5 Mg Tab PO 07/09/24 23:44 0.25 mg Q6H PRN Administration Anxiety Formoterol Fumarate 20 mcg 06/09/24 23:45 06/11/24 07:02 Formoterol 20 Mcg/2 Ml Vial INH 07/09/24 23:44 20 mcg BIDR MILY Administration Furosemide 40 mg 06/10/24 09:00 06/10/24 14:20 Furosemide 40 Mg Tab PO 07/10/24 08:59 40 mg BID@0900,1400 MILY Administration Heparin Sodium (Porcine) 5,000 units 06/09/24 23:45 06/11/24 13:24 Heparin Sod 5,000 Unit/0.5 Ml Vial SQ 07/09/24 23:44 5,000 units Q8 MILY Administration Sodium Chloride 1,000 mls @ 80 mls/hr 06/11/24 12:15 06/11/24 13:24 Nss IV 06/12/24 00:44 80 mls/hr .[id number] MILY Administration Levothyroxine Sodium 125 mcg 06/10/24 06:30 06/11/24 06:12 Levothyroxine Sodium 125 Mcg Tablet PO 07/10/24 06:29 125 mcg DAILYBB MILY Administration Metoprolol Tartrate 5 mg 06/09/24 23:45 06/10/24 19:29 Metoprolol Tartrate 1 Mg/Ml Vial IV 07/09/24 23:44 5 mg Q6 PRN Administration Tachycardia Pantoprazole Sodium 40 mg 06/10/24 09:00 06/11/24 07:49 Pantoprazole 40 Mg Tab PO 07/10/24 08:59 40 mg DAILY MILY Administration Rosuvastatin Calcium 20 mg 06/10/24 09:00 06/10/24 08:53 Rosuvastatin Calcium 20 Mg Tab PO 07/10/24 08:59 20 mg DAILY MILY Administration
[2024-06-11] MEDS: SODIUM CHLORIDE 0.9% 1,000 ML IV SCH (13:24)
[2024-06-11 13:36] LABS: Albumin Level 3.8 gm/dl (3.4-5.0); Bilirubin Direct 0.1 mg/dl (0-0.2); Bilirubin,Total 0.9 mg/dl (0.2-1.0); Total Protein 7.2 gm/dl (6.0-8.3)
[2024-06-11 14:18] LABS: Hemoglobin 13.4 g/dl (12.0-16.0); Mean Corpuscular Hemoglobin 29.1 pg (25.0-34.0); Mean Corpuscular Hgb Conc 33.5 g/dL (32.0-36.0); Mean Corpuscular Volume 86.8 fL (80.0-100.0); RDW Coefficient of Variation 14.2 % (11.5-14.5); RDW Standard Deviation 45.1 fL (36.4-46.3); Red Blood Count 4.61 M/uL (4.20-5.40); White Blood Count 12.05 K/ul (4.8-10.8)
[2024-06-11 14:25] LABS: Platelet Estimate Normal (Normal)
--- NOTE | 2024-06-11 16:12 | Electrocardiogram Report ---
Test Reason : Blood Pressure : */* mmHG Vent. Rate : 103 BPM Atrial Rate : 103 BPM P-R Int : 164 ms QRS Dur : 74 ms QT Int : 356 ms P-R-T Axes : 43 -18 50 degrees QTcB Int : 466 ms Poor data quality, interpretation may be adversely affected Sinus tachycardia Minimal voltage criteria for LVH, may be normal variant Incomplete right bundle branch block Borderline ECG When compared with ECG of 10-Jun-2024 05:45, No significant change was found Confirmed by Connor Welch ([id number] on 06/11/2024 4:11:53 PM Referred By: REFERRED SELF Confirmed By: Connor Welch
--- NOTE | 2024-06-11 16:22 | Electrocardiogram Report ---
Test Reason : Blood Pressure : */* mmHG Vent. Rate : 101 BPM Atrial Rate : 101 BPM P-R Int : 178 ms QRS Dur : 74 ms QT Int : 364 ms P-R-T Axes : 61 -20 29 degrees QTcB Int : 471 ms Poor data quality, interpretation may be adversely affected Sinus tachycardia with Premature atrial complexes Moderate voltage criteria for LVH, may be normal variant Borderline ECG When compared with ECG of 10-Jun-2024 18:29, (unconfirmed) Premature atrial complexes are now Present Confirmed by Connor Welch ([id number] on 06/11/2024 4:22:20 PM Referred By: REFERRED SELF Confirmed By: Connor Welch
[2024-06-11] MEDS ORDERED: AMOXICILLIN/CLAVULANATE 875 MG TAB PO SCH (17:00)
[2024-06-12 07:30] LABS: Hematocrit (blood only) 36.8 % (37.0-47.0); Hemoglobin 12.4 g/dl (12.0-16.0); Mean Corpuscular Hemoglobin 28.8 pg (25.0-34.0); Mean Corpuscular Hgb Conc 33.7 g/dL (32.0-36.0); Mean Corpuscular Volume 85.4 fL (80.0-100.0); Mean Platelet Volume 10.8 fL (9.4-12.4); Platelet Count 178 K/uL (130-400); RDW Coefficient of Variation 13.9 % (11.5-14.5); RDW Standard Deviation 43.8 fL (36.4-46.3); Red Blood Count 4.31 M/uL (4.20-5.40)
[2024-06-12 07:40] LABS: BUN Creatinine Ratio 28.7 (10-20); Calcium 8.9 mg/dl (8.6-10.3); Creatinine Clr Calc Pharmacy 38.4 ml/min; Phosphorus 2.6 mg/dl (2.5-4.9); Potassium 3.2 mmol/L (3.5-5.1)
[2024-06-12] MEDS: MAGNESIUM OXIDE 400 MG TAB PO SCH (07:55)
[2024-06-12] MEDS: METOPROLOL SUCC 25MG EXT REL TAB PO SCH (07:55)
[2024-06-12] MEDS: FERROUS SULFATE 325 MG TAB PO SCH (07:56)
[2024-06-12] MEDS: POLYETHYLENE (MIRALAX) 17 GM PACK PO PRN (10:20)
[2024-06-12] MEDS: POTASSIUM CHLORIDE CRTAB 20 MEQ TABCR PO ONE (10:20)
--- NOTE | 2024-06-12 14:19 | Hospitalist Progress Note ---
Date of Service June 12, 2024 Assessment & Plan (1) Tachycardia: Plan: Ms. 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 As per prior provider: -Family reports that patient has experienced episodic tremors and cramps; however, there is no clear factor contributing. Events do not seem to be correlated to bronchodilators, as the episodes even occur in the middle of the night awakening patient from sleep, many hours from treatments. -There is no sign of infectious process. UA is clean from admission. There are changes in bases of lungs, but these same changes are reflected in ct report from 2020--patient is on stable oxygen at this time. Patient does not have cough, fevers, or other infectious signs, more so oxygen requirements are stable. Procal is 0.06. Therefore will refrain from starting antibiotics at this time given no sign of infection -Question of myositis/inflammatory myopathy given proximal cramping and tremors, mildly ck elevation and esr/crp. ELISA panel, ldh and aldolase ordered. Statin discontinued. Contacted Rheumatology who did not feel this was the case. St eroids deferred. Acute kidney injury Hypokalemia Received IV fluids Replete electrolytes as needed Monitor BMP Resume home diuretics as able Shaking, intermittent generalized tremors Leg cramps--resolved Iron deficiency--started on iron supplement ESR 61, CRP 12.21 and CK 204 Unclear etiology at this time Prior hospitalist discussed with neurology:Could be frontal lobe discharges, therefore obtain EEG --EEG pending Hold statin for now due to elevated CK Prior hospitalist discussed with rheumatology Dr Perkins: less likely an inflammatory myopathy, inflammatory markers likely related to ongoing lung process Rheumatological and workup for catecholamines pending May need follow-up with neurology as outpatient Abnormal CT lungs with scattered tree-bud opacities, but no cough, resp symptoms, fevers leukocytosis potentially in response to tremulous events Procal 0.06 Follow-up as outpatient Sinus Tachycardia Elevated troponin likely demand iso HTN, also elevated CK Had echo on 05/27/2024 which showed EF of 60 to 64% and grade 1 diastolic CHF. She also had Zio patch as outpatient as she was having quivering sensations and funny feeling in the chest which showed episodes of SVT possible atrial tachycardia with variable block Monitor on telemetry EKG for concern of rhythm change Respiratory bio fire negative IV Lopressor as needed Consult cardiology : will trial low dose BB: Metoprolol succinate 25 mg daily Hypertension Continue metoprolol Monitor Hypothyroidism Mildly elevated TSH, normal free T4 Continue levothyroxine Chronic respiratory failure with hypoxia on 2 L oxygen COPD Interstitial lung disease Asthma Continue home inhalers Chronic diastolic CHF Resume home diuretics as able Monitor volume status GERD On Protonix History of breast cancer S/p lumpectomy and radiation treatment General anxiety disorder On Klonopin DVT prophylaxis Heparin SQ CODE STATUS Full code Disposition PT OT prior to discharge Admission and Anticipated Discharge Date Admission Date: June 09, 2024 Subjective Patient is seen and examined at bedside States feeling well today Offers no new complaints Discussed with patient's family in detail at bedside Denies any chest pain, dyspnea, nausea, vomiting, abdominal pain Review of Systems Review of Systems: All systems reviewed & are unremarkable except as noted in Subjective Physical Exam Physical Exam: Physical Exam: Vitals signs as noted above General Appearance:Moderately built and nourished, no apparent distress Head: normocephalic, Atraumatic Eyes: normal inspection, EOMI Neck: supple, Trachea midline Respiratory/Chest: Decreased breath sounds, CTA, No accessory muscle use Cardiovascular: S1, S2, No murmur Abdomen/GI:Soft, Non tender, Bowel sounds present Extremities/Musculoskeletal:normal inspection, 1+ edema Neurologic/Psych:AAOX3, grossly no focal neurological deficits Skin: normal color, warm Results & Data Results & Data Vital Signs (Past 12 Hours) Vital Signs Temp Pulse Pulse Resp BP Pulse Ox O2 Del Method 06/12/24 11:42 36.7 C 101 H 18 149/87 H 98 Nasal Cannula 06/12/24 08:00 Nasal Cannula 06/12/24 07:54 36.6 C 108 H 19 121/73 96 Nasal Cannula 06/12/24 07:23 78 18 98 Nasal Cannula 06/12/24 05:51 95 H 06/12/24 03:00 36.7 C 103 H 17 129/81 95 Nasal Cannula O2 Flow Rate 06/12/24 11:42 06/12/24 08:00 2 06/12/24 07:54 2 06/12/24 07:23 2 06/12/24 05:51 06/12/24 03:00 3 Laboratory Results Short CBC 06/11/24 06/12/24 Range/Units 12:06 06:59 WBC 12.05 H 10.90 H (4.8-10.8) K/ul Hgb 13.4 12.4 (12.0-16.0) g/dl Hct 40.0 36.8 L (37.0-47.0) % Plt Count 178 (130-400) K/uL BMP 06/12/24 06:59 Sodium 139 Potassium 3.2 L Chloride 99 Carbon Dioxide 30 BUN 27 H Creatinine 0.94 D Glucose 93 Calcium 8.9
[2024-06-13 05:29] LABS: Mean Corpuscular Hemoglobin 28.5 pg (25.0-34.0); Mean Corpuscular Hgb Conc 33.3 g/dL (32.0-36.0); Mean Corpuscular Volume 85.5 fL (80.0-100.0); Mean Platelet Volume 10.6 fL (9.4-12.4); Platelet Count 218 K/uL (130-400); RDW Coefficient of Variation 13.4 % (11.5-14.5); RDW Standard Deviation 42.3 fL (36.4-46.3); Red Blood Count 4.56 M/uL (4.20-5.40); White Blood Count 12.21 K/ul (4.8-10.8)
[2024-06-13 05:41] LABS: BUN Creatinine Ratio 21.2 (10-20); Calcium 9.5 mg/dl (8.6-10.3); Creatinine Clr Calc Pharmacy 42.2 ml/min; Potassium 3.5 mmol/L (3.5-5.1)
[2024-06-13] MEDS ORDERED: FUROSEMIDE 20 MG TAB PO SCH (09:00)
--- NOTE | 2024-06-13 10:14 | Cardiology Progress Note ---
Date of Service June 13, 2024 Assessment & Plan (1) Tachycardia: (2) Pneumonia: (3) Hypoxia: (4) Interstitial lung disease: (5) Paroxysmal atrial flutter: Plan 83-year-old female with chronic interstitial lung disease possible aspiration component presented due to shakiness and palpitations and chest. Malaise and weakness. EKG with sinus tachycardia on 2 serial testings. Troponin mildly elevated. Suspect sinus tachycardia secondary to multiple underlying medical concerns possibly being driven by bronchodilators inhalers as well. Event monitor approximately 1 year ago did demonstrate short runs of supraventricular tachycardia. Recommendations: Sinus tachycardia: Being driven by underlying medical issues including chronic interstitial lung disease with hypoxia. Treat underlying medical concerns. Assess thyroid function. Treat hypoxia, pain, infection Suspect component of bronchodilators contributing. May need reduction in nebulizers will trial low-dose beta-stan to aid in heart rate management given mild elevation in troponin Continue aspirin, statin 06/13/2024 Patient since admission with intermittent sinus tachycardia and elevated heart rates. Shakiness and unsteadiness. This morning lapsed into intermittent atrial flutter on telemetry. Patient not significantly aware. No edema on examination. Laboratory studies reflect hypokalemia. Recommendations: Supplement potassium to greater than 4 Will increase metoprolol succinate to 50 mg a day. Would hold bronchodilator as it may be contributing to arrhythmias and current complaints Interstitial lung disease remains chronic issue. Amiodarone contraindicated. Could consider sotalol if her atrial flutter remains issue Patient at increased risk for chronic anticoagulation but will need to be discussed Admission and Anticipated Discharge Date Admission Date: June 09, 2024 Subjective Patient seen and examined, chart, telemetry reviewed. Telemetry over the past several days demonstrated intermittent sinus tachycardia. This morning patient lapsed into transient atrial flutter intermittently. Patient aware of occasional sense of palpitations. And weakness. No dizziness or syncope. Respiratory status stable Recent history notable for falls and gait instability Review of Systems 2 Review of Systems: All systems reviewed & are unremarkable except as noted in Subjective Physical Exam Constitutional: + frail appearing; no acute distress Eyes: PERRL, conjunctivae normal, anicteric sclerae ENMT: external ear and nose normal, oropharynx normal Neck: trachea midline, no thyromegaly Respiratory: Auscultation: + diminished lung sounds and + crackles Cardiovascular: Rate/Rhythm: regular rate and + tachycardic Vessels: no JVD Extremities: no edema Chest (Breasts): normal inspection/palpation of breasts Gastrointestinal (Abdomen): normal bowel sounds, soft, nontender, no hepatosplenomegaly Results & Data Vital Signs (Past 12 Hours) Vital Signs Temp Pulse Pulse Resp BP Pulse Ox O2 Del Method 06/13/24 07:54 36.7 C 152 H 20 131/87 91 Nasal Cannula 06/13/24 07:31 109 H 18 94 Nasal Cannula 06/13/24 04:26 36.6 C 112 H 16 147/74 H 94 Nasal Cannula 06/12/24 22:30 91 H O2 Flow Rate 06/13/24 07:54 2 06/13/24 07:31 2 06/13/24 04:26 06/12/24 22:30 (2) Pneumonia Laterality: bilateral Lung location: lower lobe of lung Pneumonia type: due to unspecified organism Qualified Code(s): J18.9 - Pneumonia, unspecified organism
[2024-06-13] MEDS: METOPROLOL SUCC 25MG EXT REL TAB PO STA (11:09)
[2024-06-13] MEDS: POTASSIUM CHLORIDE CRTAB 20 MEQ TABCR PO ONE (11:09)
--- NOTE | 2024-06-13 14:20 | Hospitalist Progress Note ---
Date of Service June 13, 2024 Assessment & Plan (1) Tachycardia: Plan: Ms. 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 As per prior provider: -Family reports that patient has experienced episodic tremors and cramps; however, there is no clear factor contributing. Events do not seem to be correlated to bronchodilators, as the episodes even occur in the middle of the night awakening patient from sleep, many hours from treatments. -There is no sign of infectious process. UA is clean from admission. There are changes in bases of lungs, but these same changes are reflected in ct report from 2020--patient is on stable oxygen at this time. Patient does not have cough, fevers, or other infectious signs, more so oxygen requirements are stable. Procal is 0.06. Therefore will refrain from starting antibiotics at this time given no sign of infection -Question of myositis/inflammatory myopathy given proximal cramping and tremors, mildly ck elevation and esr/crp. ELISA panel, ldh and aldolase ordered. Statin discontinued. Contacted Rheumatology who did not feel this was the case. St eroids deferred. Acute kidney injury Hypokalemia Received IV fluids Replete electrolytes as needed Monitor BMP Resume home diuretics as able Renal function stable Shaking, intermittent generalized tremors DD: Medication induced, rheumatological/endocrinological cause Leg cramps--resolved Iron deficiency--started on iron supplement ESR 61, CRP 12.21 and CK 204 Unclear etiology at this time Prior hospitalist discussed with neurology:Could be frontal lobe discharges, therefore obtain EEG --EEG pending Hold statin for now due to elevated CK Prior hospitalist discussed with rheumatology Dr Perkins: less likely an inflammatory myopathy, inflammatory markers likely related to ongoing lung process Rheumatological and workup for catecholamines pending May need follow-up with neurology as outpatient Perforomist held as recommended by cardiology Abnormal CT lungs with scattered tree-bud opacities, but no cough, resp symptoms, fevers leukocytosis potentially in response to tremulous events Procal 0.06 Follow-up as outpatient Sinus Tachycardia ? Related to bronchodilators Elevated troponin likely demand iso HTN, also elevated CK Had echo on 05/27/2024 which showed EF of 60 to 64% and grade 1 diastolic CHF. She also had Zio patch as outpatient as she was having quivering sensations and funny feeling in the chest which showed episodes of SVT possible atrial tachycardia with variable block Monitor on telemetry EKG for concern of rhythm change Recent TSH mildly elevated, normal free T4 Respiratory bio fire negative IV Lopressor as needed Consult cardiology : Metoprolol succinate increased to 50 mg daily Hypertension Continue metoprolol Monitor Hypothyroidism Mildly elevated TSH, normal free T4 Continue levothyroxine Chronic respiratory failure with hypoxia on 2 L oxygen COPD Interstitial lung disease Asthma Continue home inhalers May need follow-up with media professional on discharge for medication adjustments as needed Chronic diastolic CHF Resume home diuretics as able Monitor volume status GERD On Protonix History of breast cancer S/p lumpectomy and radiation treatment General anxiety disorder On Klonopin DVT prophylaxis Heparin SQ CODE STATUS Full code Disposition PT OT prior to discharge Admission and Anticipated Discharge Date Admission Date: June 09, 2024 Subjective Patient is seen and examined at bedside Patient is poor historian Tachycardic on monitor Discussed with cardiology today Updated patient's family over the phone RN reports patient mildly delirious overnight Denies any chest pain, palpitations, dizziness, dyspnea, nausea, vomiting, abdominal pain Review of Systems Review of Systems: All systems reviewed & are unremarkable except as noted in Subjective Physical Exam Physical Exam: Physical Exam: Vitals signs as noted above General Appearance:Moderately built and nourished, no apparent distress Head: normocephalic, Atraumatic Eyes: normal inspection, EOMI Neck: supple, Trachea midline Respiratory/Chest: Decreased breath sounds, CTA, No accessory muscle use Cardiovascular: S1, S2, No murmur Abdomen/GI:Soft, Non tender, Bowel sounds present Extremities/Musculoskeletal:normal inspection, 1+ edema Neurologic/Psych:AAOX3, grossly no focal neurological deficits Skin: normal color, warm Results & Data Results & Data Vital Signs (Past 12 Hours) Vital Signs Temp Pulse Resp BP Pulse Ox O2 Del Method O2 Flow Rate 06/13/24 11:25 36.7 C 80 18 128/81 96 Nasal Cannula 2 12/26/24 07:54 36.7 C 152 H 20 131/87 91 Nasal Cannula 2 06/13/24 07:31 109 H 18 94 Nasal Cannula 2 06/13/24 04:26 36.6 C 112 H 16 147/74 H 94 Nasal Cannula Laboratory Results Short CBC 06/13/24 Range/Units 04:52 WBC 12.21 H (4.8-10.8) K/ul Hgb 13.0 (12.0-16.0) g/dl Hct 39.0 (37.0-47.0) % Plt Count 218 (130-400) K/uL BMP 06/13/24 04:52 Sodium 139 Potassium 3.5 Chloride 97 L Carbon Dioxide 32 BUN 18 Creatinine 0.85 Glucose 100 H Calcium 9.5
[2024-06-13] MEDS: METOPROLOL TARTRATE 1 MG/ML VIAL IV STA (20:35)
[2024-06-13] MEDS: dilTIAZem HCl 5 MG/ML 5 ML VIAL IV STA ×2 (22:37→22:55)
[2024-06-14] MEDS: DIGOXIN 125 MCG in SYRINGE 9.5 ML IV STA (01:13)
[2024-06-14] MEDS: POTASSIUM CHLORIDE CRTAB 20 MEQ TABCR PO STA (01:14)
[2024-06-14] MEDS: DIGOXIN 125 MCG in SYRINGE 9.5 ML IV ONE (02:25)
[2024-06-14] MEDS: SODIUM CHLORIDE 0.9% 500 ML IV ONE (03:24)
[2024-06-14 03:39] LABS: Appearance Urine Clear (Clear); Bacteria Urine Automated None Seen (None Seen); Bilirubin Urine Negative (Negative); Blood Urine Negative (Negative); Cast Urine Automated 0-2 /lpf (0-2); Color Urine Yellow; Epithelial Cell Urine Auto 0-2 /hpf (0-2); Glucose Urine UA Negative (Negative); Ketones Urine 1+ (Negative); Leukocyte Esterase Urine Negative (Negative); Nitrite Urine Negative (Negative); Protein Urine Trace (Negative); RBC Urine Automated 0-2 /hpf (0-2); Specific Gravity Urine 1.008 (1.000-1.030); Urobilinogen Urine Negative (Negative); WBC Urine Automated 0-5 /hpf (0-5)
[2024-06-14 03:50] LABS: Hematocrit (blood only) 38.7 % (37.0-47.0); Hemoglobin 12.8 g/dl (12.0-16.0); Mean Corpuscular Hemoglobin 28.4 pg (25.0-34.0); Mean Corpuscular Hgb Conc 33.1 g/dL (32.0-36.0); Mean Corpuscular Volume 85.8 fL (80.0-100.0); Mean Platelet Volume 10.7 fL (9.4-12.4); Platelet Count 217 K/uL (130-400); RDW Coefficient of Variation 13.8 % (11.5-14.5); RDW Standard Deviation 43.5 fL (36.4-46.3); Red Blood Count 4.51 M/uL (4.20-5.40)
[2024-06-14] MEDS: METOPROLOL TARTRATE 1 MG/ML VIAL IV STA (04:04)
[2024-06-14 04:09] LABS: BUN Creatinine Ratio 20.9 (10-20); Calcium 8.9 mg/dl (8.6-10.3); Creatinine Clr Calc Pharmacy 26.8 ml/min; Magnesium 2.1 mg/dl (1.7-2.4); Potassium 4.7 mmol/L (3.5-5.1)
[2024-06-14] MEDS: SODIUM CHLORIDE 0.9% 1,000 ML IV SCH (04:51)
[2024-06-14 05:10] LABS: Troponin I High Sensitivity 49.4 pg/ml (0-14)
[2024-06-14] MEDS ORDERED: Heparin IV Adult Wt-Based Low-Dose *NO* INITIAL Bolus Protocol IV STA (08:26)
[2024-06-14] MEDS ORDERED: METOPROLOL SUCC 50MG EXT REL TAB PO SCH (09:00)
[2024-06-14] MEDS: HEPARIN SODIUM/DEXTROSE 25,000 UNITS/500 ML BAG IV SCH (10:53)
[2024-06-14] MEDS: SOTALOL HCL 80 MG TAB PO SCH (11:17)
--- NOTE | 2024-06-14 11:20 | Cardiology Progress Note ---
Date of Service June 14, 2024 Assessment & Plan (1) Tachycardia: (2) Pneumonia: (3) Hypoxia: (4) Interstitial lung disease: (5) Paroxysmal atrial flutter: Plan 83-year-old female with chronic interstitial lung disease possible aspiration component presented due to shakiness and palpitations and chest. Malaise and weakness. EKG with sinus tachycardia on 2 serial testings. Troponin mildly elevated. Suspect sinus tachycardia secondary to multiple underlying medical concerns possibly being driven by bronchodilators inhalers as well. Event monitor approximately 1 year ago did demonstrate short runs of supraventricular tachycardia. Recommendations: Sinus tachycardia: Being driven by underlying medical issues including chronic interstitial lung disease with hypoxia. Treat underlying medical concerns. Assess thyroid function. Treat hypoxia, pain, infection Suspect component of bronchodilators contributing. May need reduction in nebulizers will trial low-dose beta-stan to aid in heart rate management given mild elevation in troponin Continue aspirin, statin 06/13/2024 Patient since admission with intermittent sinus tachycardia and elevated heart rates. Shakiness and unsteadiness. This morning lapsed into intermittent atrial flutter on telemetry. Patient not significantly aware. No edema on examination. Laboratory studies reflect hypokalemia. Recommendations: Supplement potassium to greater than 4 Will increase metoprolol succinate to 50 mg a day. Would hold bronchodilator as it may be contributing to arrhythmias and current complaints Interstitial lung disease remains chronic issue. Amiodarone contraindicated. Could consider sotalol if her atrial flutter remains issue Patient at increased risk for chronic anticoagulation but will need to be discussed 06/14/2024 Fragile 83-year-old female with underlying interstitial lung disease admitted with sinus tachycardia and possible pulmonary exacerbation generalized malaise. Since hospitalization now has lapsed into atrial flutter with elevated ventricular response rate. Patient not specifically aware of sense of tachypalpitations. 1. Paroxysmal atrial flutter with rapid ventricular response: As per previous note will initiate sotalol 80 mg twice per day to begin this morning. Anticoagulation initiated with IV heparin. Would avoid further diltiazem given hypotensive response Maintain oxygen supplementation, avoid hypoxia, hypokalemia. In part tachycardias may be driven by patient's underlying bronchodilator use. 2. Mild troponin elevation consistent with demand ischemia with preserved LV systolic function. Will follow serial echoes with sotalol usage. Anticoagulation indicated due to atrial arrhythmias Admission and Anticipated Discharge Date Admission Date: June 09, 2024 Subjective Patient was seen and personally examined. Chart medications and telemetry reviewed. Events of prior evening noted and discussed. Patient awakens to stimulus. Paroxysmal atrial flutter yesterday with lapsed into atrial flutter earlier this morning. Received multiple drug interventions to attempt to control heart rate without success. Patient asymptomatic but did develop relative hypotension in association with therapies. Currently without acute complaint. Remains in atrial flutter with elevated ventricular response rate Review of Systems Review of Systems: All systems reviewed & are unremarkable except as noted in Subjective Physical Exam Constitutional: + frail appearing; no acute distress Eyes: PERRL, conjunctivae normal, anicteric sclerae ENMT: external ear and nose normal, oropharynx normal Neck: trachea midline, no thyromegaly Respiratory: Auscultation: + diminished lung sounds and + crackles Cardiovascular: Rate/Rhythm: regular rhythm and + tachycardic Vessels: no JVD Extremities: no edema Chest (Breasts): normal inspection/palpation of breasts Gastrointestinal (Abdomen): normal bowel sounds, soft, nontender, no hepatosplenomegaly Results & Data Vital Signs (Past 12 Hours) Vital Signs Temp Pulse Pulse Pulse Resp BP BP 06/14/24 08:19 06/14/24 07:54 36.5 C 152 H 18 99/67 L 06/14/24 07:13 153 H 21 06/14/24 04:40 122 H 97/44 L 06/14/24 04:04 154 H 103/65 06/14/24 03:47 154 H 103/65 06/14/24 03:03 37.1 C 136 H 18 105/70 06/14/24 02:25 155 H 06/14/24 02:01 148 H 91/57 L 06/14/24 01:13 152 H 06/14/24 00:00 37.3 C Pulse Ox O2 Del Method O2 Flow Rate 06/14/24 08:19 Nasal Cannula 2 06/14/24 07:54 95 Nasal Cannula 2 06/14/24 07:13 94 Nasal Cannula 2 06/14/24 04:40 06/14/24 04:04 06/14/24 03:47 06/14/24 03:03 95 Nasal Cannula 06/14/24 02:25 06/14/24 02:01 06/14/24 01:13 06/14/24 00:00 Laboratory Results Laboratory Results - last 24 hr 06/13/24 06/13/24 06/14/24 04:52 09:54 03:15 WBC RBC Hgb Hct MCV MCH MCHC RDW Std Deviation RDW Coeff of Neena Plt Count MPV Peripher Smr Path Cons Sodium Potassium Chloride Carbon Dioxide Anion Gap BUN Creatinine Est Cr Clr Drug Dosing eGFR BUN/Creatinine Ratio Glucose Lactate Calcium Magnesium Troponin I High Sens Procalcitonin 0.17 Urine Color Yellow Urine Appearance Clear Urine pH 6.0 Ur Specific [place] 1.008 Urine Protein Trace H Urine Glucose (UA) Negative Urine Ketones 1+ H Urine Blood Negative Urine Nitrite Negative Urine Bilirubin Negative Urine Urobilinogen Negative Ur Leukocyte Esterase Negative Urine WBC (Auto) 0-5 Urine RBC (Auto) 0-2 U Hyaline Cast (Auto) 0-2 U Epithel Cells (Auto) 0-2 Urine Bacteria (Auto) None Seen Ur Ramsay Metanephrines Pending U Normetanephrine Pending U Total Metanephrines Pending Urine Creatinine Pending 06/14/24 06/14/24 03:21 08:05 WBC 13.60 H RBC 4.51 Hgb 12.8 Hct 38.7 MCV 85.8 MCH 28.4 MCHC 33.1 RDW Std Deviation 43.5 RDW Coeff of Neena 13.8 Plt Count 217 MPV 10.7 Peripher Smr Path Cons Sodium 138 Potassium 4.7 D Chloride 100 Carbon Dioxide 25 Anion Gap 13 H BUN 28 H Creatinine 1.34 H D Est Cr Clr Drug Dosing 26.8 eGFR 39.84 BUN/Creatinine Ratio 20.9 H Glucose 96 Lactate 1.2 Calcium 8.9 Magnesium 2.1 Troponin I High Sens 49.4 H 108.8 H* D Procalcitonin Urine Color Urine Appearance Urine pH Ur Specific [place] Urine Protein Urine Glucose (UA) Urine Ketones Urine Blood Urine Nitrite Urine Bilirubin Urine Urobilinogen Ur Leukocyte Esterase Urine WBC (Auto) Urine RBC (Auto) U Hyaline Cast (Auto) U Epithel Cells (Auto) Urine Bacteria (Auto) Ur Ramsay Metanephrines U Normetanephrine U Total Metanephrines Urine Creatinine (2) Pneumonia Laterality: bilateral Lung location: lower lobe of lung Pneumonia type: due to unspecified organism Qualified Code(s): J18.9 - Pneumonia, unspecified organism
[2024-06-14 12:38] LABS: INR 1.1 (0.9-1.1); Partial Thromboplastin Ratio 1.5; Partial Thromboplastin Time 40 Seconds (21-31); Prothrombin Time 11.8 Seconds (9.0-12.0)
[2024-06-14 13:27] LABS: Basophils # (auto) 0.05 K/uL (0.00-0.20); Basophils % (auto) 0.4 %; Eosinophils # (auto) 0.35 K/uL (0.00-0.50); Eosinophils % (auto) 2.6 %; Hematocrit (blood only) 37.6 % (37.0-47.0); Hemoglobin 12.3 g/dl (12.0-16.0); Immature Granulocytes # (auto) 0.09 K/uL (0.01-0.20); Immature Granulocytes % (auto) 0.7 %; Lymphocytes # (auto) 1.48 K/uL (1.20-3.40); Lymphocytes % (auto) 11.1 %; Mean Corpuscular Hemoglobin 28.1 pg (25.0-34.0); Mean Corpuscular Hgb Conc 32.7 g/dL (32.0-36.0); Mean Platelet Volume 10.6 fL (9.4-12.4); Monocytes # (auto) 1.68 K/uL (0.11-0.59); Monocytes % (auto) 12.7 %; Neutrophils # (auto) 9.63 K/uL (1.40-6.50); Neutrophils % (auto) 72.5 %; Platelet Count 181 K/uL (130-400); RDW Coefficient of Variation 13.9 % (11.5-14.5); RDW Standard Deviation 44.2 fL (36.4-46.3); Red Blood Count 4.37 M/uL (4.20-5.40); White Blood Count 13.28 K/ul (4.8-10.8)
--- NOTE | 2024-06-14 14:53 | XRay Report ---
XR chest 1V portable CLINICAL HISTORY: fever TECHNIQUE: Single frontal radiograph of the chest was obtained. Comparison: Comparison is made to chest radiograph 06/09/2024 FINDINGS: No lines and tubes are seen. Calcified aortic knob is seen. The lungs are clear. Small bilateral pleu ral effusions are seen. IMPRESSION: Small bilateral pleural effusions. No evidence of pneumonia. ACT 112: Negative or not required by law. Electronically signed by: Roshan Randolph M.D. 06/14/2024 2:51 PM
--- NOTE | 2024-06-14 15:30 | Hospitalist Progress Note ---
Date of Service June 14, 2024 Assessment & Plan (1) Tachycardia: Plan: Ms. 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 As per prior provider: -Family reports that patient has experienced episodic tremors and cramps; however, there is no clear factor contributing. Events do not seem to be correlated to bronchodilators, as the episodes even occur in the middle of the night awakening patient from sleep, many hours from treatments. -There is no sign of infectious process. UA is clean from admission. There are changes in bases of lungs, but these same changes are reflected in ct report from 2020--patient is on stable oxygen at this time. Patient does not have cough, fevers, or other infectious signs, more so oxygen requirements are stable. Procal is 0.06. Therefore will refrain from starting antibiotics at this time given no sign of infection -Question of myositis/inflammatory myopathy given proximal cramping and tremors, mildly ck elevation and esr/crp. ELISA panel, ldh and aldolase ordered. Statin discontinued. Contacted Rheumatology who did not feel this was the case. St eroids deferred. Acute kidney injury Hypokalemia Replete electrolytes as needed Resume home diuretics as able Renal function stable Received IV fluids Monitor renal function Cr 1.3 today Shaking, intermittent generalized tremors DD: Medication induced, rheumatological/endocrinological cause/cardiac arrhythmias Leg cramps--resolved Iron deficiency--started on iron supplement ESR 61, CRP 12.21 and CK 204 Unclear etiology at this time Prior hospitalist discussed with neurology:Could be frontal lobe discharges, therefore obtain EEG --EEG pending Hold statin for now due to elevated CK Prior hospitalist discussed with rheumatology Dr Perkins: less likely an inflammatory myopathy, inflammatory markers likely related to ongoing lung process Rheumatological and workup for catecholamines pending May need follow-up with neurology as outpatient Perforomist held as recommended by cardiology Paroxysmal atrial flutter with rapid ventricular response Elevated troponin likely demand iso HTN, also elevated CK Had echo on 05/27/2024 which showed EF of 60 to 64% and grade 1 diastolic CHF. She also had Zio patch as outpatient as she was having quivering sensations and funny feeling in the chest which showed episodes of SVT possible atrial tachycardia with variable block Recent TSH mildly elevated, normal free T4 Respiratory bio fire negative Patient cardiology input Not a candidate for amiodarone given interstitial lung disease Avoid diltiazem due to hypotension Started on sotalol 80 mg twice a day On IV heparin for anticoagulation Needs follow-up with cardiology on discharge Abnormal CT lungs with scattered tree-bud opacities, but no cough, resp symptoms, fevers leukocytosis potentially in response to tremulous events Procal 0.06 Follow-up as outpatient Transient fever Leukocytosis No clear infectious source Blood cultures pending Monitor Will consider empiric antibiotics if recurrence of fever Hypertension Continue sotalol Monitor blood pressure Hypothyroidism Mildly elevated TSH, normal free T4 Continue levothyroxine Chronic respiratory failure with hypoxia on 2 L oxygen COPD Interstitial lung disease Asthma Continue home inhalers May need follow-up with benefits analyst on discharge for medication adjustments as needed Chronic diastolic CHF Resume home diuretics as able Monitor volume status closely GERD On Protonix History of breast cancer S/p lumpectomy and radiation treatment General anxiety disorder On Klonopin as needed DVT prophylaxis IV heparin CODE STATUS Full code Disposition PT OT prior to discharge Admission and Anticipated Discharge Date Admission Date: June 09, 2024 Subjective Patient is seen and examined at bedside Patient is poor historian Delirious overnight Remains tachycardic on monitor Discussed with lamp shades supervisor today Updated patient's family at bedside Patient drowsy this morning secondary to Klonopin overnight Reported nausea, intermittent palpitations--unreliable history Denies any chest pain, dizziness, dyspnea, nausea, vomiting, abdominal pain Review of Systems Review of Systems: All systems reviewed & are unremarkable except as noted in Subjective Physical Exam Physical Exam: Physical Exam: Vitals signs as noted above General Appearance:Moderately built and nourished, no apparent distress Head: normocephalic, Atraumatic Eyes: normal inspection, EOMI Neck: supple, Trachea midline Respiratory/Chest: Decreased breath sounds, CTA, No accessory muscle use Cardiovascular: Irregularly irregular, tachycardia, No murmur Abdomen/GI:Soft, Non tender, Bowel sounds present Extremities/Musculoskeletal:normal inspection, 1+ edema Neurologic/Psych:AAO, grossly no focal neurological deficits Skin: normal color, warm Results & Data Results & Data Vital Signs (Past 12 Hours) Vital Signs Temp Pulse Pulse Pulse Resp BP BP 06/14/24 12:08 37.0 C 159 H 20 110/78 06/14/24 08:19 06/14/24 07:54 36.5 C 152 H 18 99/67 L 06/14/24 07:13 153 H 21 06/14/24 04:40 122 H 97/44 L 06/14/24 04:04 154 H 103/65 06/14/24 03:47 154 H 103/65 Pulse Ox O2 Del Method O2 Flow Rate 06/14/24 12:08 95 Nasal Cannula 2 06/14/24 08:19 Nasal Cannula 2 06/14/24 07:54 95 Nasal Cannula 2 06/14/24 07:13 94 Nasal Cannula 2 06/14/24 04:40 06/14/24 04:04 06/14/24 03:47 Laboratory Results Short CBC 06/14/24 06/14/24 06/14/24 Range/Units 03:21 11:41 12:51 WBC 13.60 H Cancelled 13.28 H (4.8-10.8) K/ul Hgb 12.8 Cancelled 12.3 (12.0-16.0) g/dl Hct 38.7 Cancelled 37.6 (37.0-47.0) % Plt Count 217 Cancelled 181 (130-400) K/uL BMP 06/14/24 03:21 Sodium 138 Potassium 4.7 D Chloride 100 Carbon Dioxide 25 BUN 28 H Creatinine 1.34 H D Glucose 96 Calcium 8.9 Urine 06/14/24 Range/Units 03:15 Urine Color Yellow Urine Appearance Clear (Clear) Urine pH 6.0 (4.5-7.5) Ur Specific [place] 1.008 (1.000-1.030) Urine Protein Trace H (Negative) Urine Glucose (UA) Negative (Negative)
--- NOTE | 2024-06-14 15:49 | Electrocardiogram Report ---
Test Reason : Blood Pressure : */* mmHG Vent. Rate : 147 BPM Atrial Rate : 315 BPM P-R Int : * ms QRS Dur : 72 ms QT Int : 240 ms P-R-T Axes : 132 -20 58 degrees QTcB Int : 375 ms Atrial flutter with variable A-V block with premature ventricular or aberrantly conducted complexes Nonspecific ST abnormality Abnormal ECG When compared with ECG of 11-Jun-2024 06:19, Atrial flutter has replaced Sinus rhythm ST now depressed in Lateral leads Confirmed by Connor Welch ([id number] on 06/14/2024 3:48:44 PM Referred By: REFERRED SELF Confirmed By: Connor Welch
--- NOTE | 2024-06-14 15:54 | Electrocardiogram Report ---
Test Reason : Blood Pressure : */* mmHG Vent. Rate : 153 BPM Atrial Rate : 153 BPM P-R Int : 150 ms QRS Dur : 114 ms QT Int : 238 ms P-R-T Axes : 173 -18 110 degrees QTcB Int : 380 ms Atrial flutter Right bundle branch block Left ventricular hypertrophy with repolarization abnormality Abnormal ECG When compared with ECG of 13-Jun-2024 22:36, (unconfirmed) Right bundle branch block is now Present Confirmed by Connor Welch ([id number] on 06/14/2024 3:53:50 PM Referred By: REFERRED SELF Confirmed By: Connor Welch
--- NOTE | 2024-06-14 16:01 | Electrocardiogram Report ---
Test Reason : Blood Pressure : */* mmHG Vent. Rate : 157 BPM Atrial Rate : 157 BPM P-R Int : * ms QRS Dur : 102 ms QT Int : 228 ms P-R-T Axes : * -22 154 degrees QTcB Int : 368 ms Poor data quality, interpretation may be adversely affected Atrial flutter Incomplete right bundle branch block Nonspecific ST and T wave abnormality Abnormal ECG When compared with ECG of 14-Jun-2024 06:00, (unconfirmed) Nonspecific T wave abnormality, worse in Lateral leads Confirmed by Connor Welch ([id number]) on 06/14/2024 4:00:54 PM Referred By: REFERRED SELF Confirmed By: Connor Welch
[2024-06-14 18:05] LABS: ANTI-Xa, UFH(UnfractionatedHep 0.31 IU/ml (0.3-0.7)
[2024-06-15] MEDS: LEVALBUTEROL TARTRATE 15 GM HFA.AER.AD INH PRN (07:07)
[2024-06-15 08:30] LABS: Basophils # (auto) 0.05 K/uL (0.00-0.20); Basophils % (auto) 0.3 %; Eosinophils # (auto) 0.54 K/uL (0.00-0.50); Eosinophils % (auto) 3.6 %; Hemoglobin 13.3 g/dl (12.0-16.0); Immature Granulocytes # (auto) 0.09 K/uL (0.01-0.20); Immature Granulocytes % (auto) 0.6 %; Lymphocytes % (auto) 11.9 %; Mean Corpuscular Hemoglobin 28.5 pg (25.0-34.0); Mean Corpuscular Hgb Conc 32.4 g/dL (32.0-36.0); Mean Corpuscular Volume 87.8 fL (80.0-100.0); Mean Platelet Volume 11.1 fL (9.4-12.4); Monocytes # (auto) 1.84 K/uL (0.11-0.59); Monocytes % (auto) 12.1 %; Neutrophils # (auto) 10.86 K/uL (1.40-6.50); Neutrophils % (auto) 71.5 %; Platelet Count 230 K/uL (130-400); RDW Coefficient of Variation 13.9 % (11.5-14.5); Red Blood Count 4.67 M/uL (4.20-5.40); White Blood Count 15.18 K/ul (4.8-10.8)
[2024-06-15 08:43] LABS: BUN Creatinine Ratio 35.8 (10-20); Calcium 8.9 mg/dl (8.6-10.3); Creatinine Clr Calc Pharmacy 33.9 ml/min; Magnesium 2.3 mg/dl (1.7-2.4); Potassium 4.3 mmol/L (3.5-5.1)
[2024-06-15 09:00] LABS: ANTI-Xa, UFH(UnfractionatedHep 0.61 IU/ml (0.3-0.7)
[2024-06-15] MEDS: METOPROLOL TARTRATE 1 MG/ML VIAL IV ONE (11:01)
--- NOTE | 2024-06-15 11:39 | Cardiology Progress Note ---
Date of Service June 15, 2024 Assessment & Plan (1) Tachycardia: (2) Pneumonia: (3) Hypoxia: (4) Interstitial lung disease: (5) Paroxysmal atrial flutter: Plan 83-year-old female with chronic interstitial lung disease possible aspiration component presented due to shakiness and palpitations and chest. Malaise and weakness. EKG with sinus tachycardia on 2 serial testings. Troponin mildly elevated. Suspect sinus tachycardia secondary to multiple underlying medical concerns possibly being driven by bronchodilators inhalers as well. Event monitor approximately 1 year ago did demonstrate short runs of supraventricular tachycardia. Recommendations: Sinus tachycardia: Being driven by underlying medical issues including chronic interstitial lung disease with hypoxia. Treat underlying medical concerns. Assess thyroid function. Treat hypoxia, pain, infection Suspect component of bronchodilators contributing. May need reduction in nebulizers will trial low-dose beta-stan to aid in heart rate management given mild elevation in troponin Continue aspirin, statin 06/13/2024 Patient since admission with intermittent sinus tachycardia and elevated heart rates. Shakiness and unsteadiness. This morning lapsed into intermittent atrial flutter on telemetry. Patient not significantly aware. No edema on examination. Laboratory studies reflect hypokalemia. Recommendations: Supplement potassium to greater than 4 Will increase metoprolol succinate to 50 mg a day. Would hold bronchodilator as it may be contributing to arrhythmias and current complaints Interstitial lung disease remains chronic issue. Amiodarone contraindicated. Could consider sotalol if her atrial flutter remains issue Patient at increased risk for chronic anticoagulation but will need to be discussed 06/14/2024 Fragile 83-year-old female with underlying interstitial lung disease admitted with sinus tachycardia and possible pulmonary exacerbation generalized malaise. Since hospitalization now has lapsed into atrial flutter with elevated ventricular response rate. Patient not specifically aware of sense of tachypalpitations. 1. Paroxysmal atrial flutter with rapid ventricular response: As per previous note will initiate sotalol 80 mg twice per day to begin this morning. Anticoagulation initiated with IV heparin. Would avoid further diltiazem given hypotensive response Maintain oxygen supplementation, avoid hypoxia, hypokalemia. In part tachycardias may be driven by patient's underlying bronchodilator use. 2. Mild troponin elevation consistent with demand ischemia with preserved LV systolic function. Will follow serial echoes with sotalol usage. Anticoagulation indicated due to atrial arrhythmias 06/15/24: Patient started on sotalol 80 mg BID yesterday in attempt to improve Atrial flutter. She remains in atrial flutter this morning with elevated rates at 140's. Not overtly symptomatic. Just received 3rd dose of sotalol 80 mg this morning. QT/QTC interval likely not accurate on EKG given elevated rates and measuring flutter waves. Give one dose IV metoprolol 5 mg to aid with HR's this morning. If rates trend downward, repeat EKG in attempt to obtain accurate measurement of QT interval. Continue IV heparin. Maintain oxygen supplementation and limit bronchodilator as this has contributed to tachycardia in the past. Not a candidate for amiodarone given underlying interstitial lung disease. Further recommendations pending discussion/evaluation with Dr. Wheeler I spent a total of 40 minutes on the date of service in preparation, delivery, and documentation of the care provided to this patient, excluding any time spent in the performance of separately billed services. Amber Dockery PA-C Department of Cardiology, [facility] This chart was completed in part utilizing Speech Voice Recognition Software. Grammatical errors, random word insertions, pronoun errors, and incomplete sentences are an occasional consequence of this system due to software limitations, ambient noise, and hardware issues. Any formal questions or concerns about the content, text, or information contained within the body of this dictation should be directly addressed to the provider for clarification. Admission and Anticipated Discharge Date Admission Date: June 09, 2024 Supervising Physician Co-Signing Physician Notes I have reviewed the advanced practitioner's documentation on the date of service referenced in note, and I agree with, and take responsibility for the plan of care. I spent a total of [15] minutes coordinating, documenting, and providing care for this patient excluding time spent in the performance of separately billed services or time spent by another provider. 83-year-old with significant underlying interstitial lung disease admitted with sinus tachycardia during the hospitalization went into atrial flutter with rapid ventricular response. Patient was given metoprolol without much response and diltiazem did respond but however had hypotensive response. has been started on sotalol received her third dose today morning continues to remain tachycardic has not responded to metoprolol will try Cardizem IV push to help with lowering heart rate. will need to wait for atleast 4 to 6 doses of sotalol if no response will likely need cardioversion . Subjective Patient resting in bed this morning. Feeling "weak" and tired but denies palpitations or tachypalpitations. Ongoing SOB reported. No chest pain. Review of Systems Review of Systems: All systems reviewed & are unremarkable except as noted in HPI & below Physical Exam Constitutional: + frail appearing; no acute distress Eyes: PERRL, conjunctivae normal, anicteric sclerae ENMT: external ear and nose normal, oropharynx normal Neck: trachea midline, no thyromegaly Respiratory: Auscultation: + diminished lung sounds and + crackles Cardiovascular: RRR, no murmur, no edema Rate/Rhythm: + tachycardic Vessels: no JVD Extremities: no edema Chest (Breasts): normal inspection/palpation of breasts Gastrointestinal (Abdomen): normal bowel sounds, soft, nontender, no hepatosplenomegaly Neurologic: PERRL, EOMI, accommodation nl, no face palsy, no dysarthria Results & Data Vital Signs (Past 12 Hours) Vital Signs Temp Pulse Pulse Resp BP BP Pulse Ox 06/15/24 11:07 36.9 C 18 96 06/15/24 11:01 145 H 123/87 06/15/24 08:00 06/15/24 07:35 36.9 C 142 H 20 125/84 91 06/15/24 07:01 138 H 18 97 06/15/24 02:49 36.8 C 139 H 20 101/69 94 O2 Del Method O2 Flow Rate 06/15/24 11:07 Nasal Cannula 06/15/24 11:01 06/15/24 08:00 Nasal Cannula 2 06/15/24 07:35 Nasal Cannula 2.0 06/15/24 07:01 Nasal Cannula 2 06/15/24 02:49 Nasal Cannula 2 Laboratory Results Cardiac Enzymes 06/14/24 06/14/24 Range/Units 11:41 19:04 Troponin I High Sens 488.4 H* D 964.8 H* D (0-14) pg/ml Coagulation 06/14/24 Range/Units 11:41 PT 11.8 (9.0-12.0) Seconds APTT 40 H (21-31) Seconds CBC 06/14/24 06/14/24 06/15/24 Range/Units 11:41 12:51 08:05 WBC Cancelled 13.28 H 15.18 H RBC Cancelled 4.37 4.67 Hgb Cancelled 12.3 13.3 Hct Cancelled 37.6 41.0 Plt Count Cancelled 181 230 Neut # (Auto) Cancelled 9.63 H 10.86 H Lymph # (Auto) Cancelled 1.48 1.80 [place] # (Auto) Cancelled 1.68 H 1.84 H Eos # (Auto) Cancelled 0.35 0.54 H Baso # (Auto) Cancelled 0.05 0.05 Comprehensive Metabolic Panel 06/15/24 Range/Units 08:05 Sodium 137 (136-145) mmol/L Potassium 4.3 (3.5-5.1) mmol/L Chloride 98 (98-107) mmol/L Carbon Dioxide 29 (21-32) mmol/L BUN 38 H (6-23) mg/dl Creatinine 1.06 (0.6-1.2) mg/dl Glucose 159 H (70-99(Fasting)) mg/dl Calcium 8.9 (8.6-10.3) mg/dl Intake and Output 06/14/24 06/15/24 06/15/24 22:59 06:59 14:59 Intake Total 804.417 / 954.417 150 / 954.417 199.983 / 199.983 Balance 804.417 / 954.417 150 / 954.417 199.983 / 199.983 Intake: IV 804.417 / 804.417 199.983 / 199.983 Heparin Sodium/Dextrose 25,000 109.417 / 109.417 199.983 / 199.983 units In 500 ml @ 650 UNITS/HR 13 mls/hr IV .Q24H MILY Rx#: [id number] Sodium Chloride 0.9% 1,000 ml @ 695 / 695 50 mls/hr IV .Q20H MILY Rx#: [id number] Oral 150 / 150 Other: Other Intake Source Sips Sips Weight 64.1 kg 64 kg Weight Measurement Method Built in [facility] Diagnostic Findings Telemetry: Persistent atrial flutter with RVR rates ranging 140-150's. EKG this morning reviewed: Atrial flutter RVR RBBB Medications Administered Current Inpatient Medications Acetaminophen (Acetaminophen 325 Mg Tab) 650 mg PO Q4H PRN PRN Reason: Pain or Fever Stop: 07/09/24 23:44 Last Admin: 06/14/24 20:22 Dose: 650 mg Amitriptyline HCl (Amitriptyline Hcl 25 Mg Tab) 25 mg PO HS [facility] Stop: 07/09/24 23:44 Last Admin: 06/14/24 20:19 Dose: 25 mg Budesonide (Budesonide 0.5 Mg/2 Ml Vial (Pulmicort)) 0.5 mg INH BIDR [facility]ILY Stop: 07/09/24 23:44 Last Admin: 06/15/24 06:59 Dose: 0.5 mg Clonazepam (Clonazepam 0.5 Mg Tab) 0.25 mg PO Q6H PRN PRN Reason: Anxiety Stop: 07/09/24 23:44 Last Admin: 06/14/24 20:22 Dose: 0.25 mg Ferrous Sulfate (Ferrous Sulfate 325 Mg Tab) 325 mg PO QAM [facility] Stop: 07/12/24 08:59 Last Admin: 06/15/24 09:15 Dose: 325 mg Formoterol Fumarate (Formoterol 20 Mcg/2 Ml Vial) 20 mcg INH BIDR [facility] Stop: 07/09/24 23:44 Last Admin: 06/13/24 07:31 Dose: 20 mcg Furosemide (Furosemide 20 Mg Tab) 20 mg PO BID@0900,1400 [facility] Stop: 07/13/24 08:59 Hydrocortisone (Hydrocortisone 2.5% Cr 30 Gm Tube) 1 appln EXT BID [facility] Stop: 07/15/24 09:29 Heparin Sodium/Dextrose (Heparin Sodium/Dextrose) 25,000 units in 500 mls @ 13 mls/hr IV .Q24H [facility]; Protocol Stop: 07/14/24 08:44 Last Titration: 06/15/24 10:41 Dose: 650 units/hr, 13 mls/hr Piperacillin Sod/Tazobactam Sod (Zosyn) 4.5 gm in 100 mls @ 25 mls/hr IV Q8H [facility]; Protocol Stop: 06/17/24 10:29 Levalbuterol HCl (Levalbuterol Tartrate 15 Gm Hfa.Aer.Ad) 2 puffs INH QID PRN PRN Reason: Shortness Of Breath Or Wheezin Stop: 07/09/24 23:44 Last Admin: 06/15/24 07:07 Dose: 2 puffs Levothyroxine Sodium (Levothyroxine Sodium 125 Mcg Tablet) 125 mcg PO DAILYBB [facility] Stop: 07/10/24 06:29 Last Admin: 06/15/24 05:47 Dose: 125 mcg Magnesium Oxide (Magnesium Oxide 400 Mg Tab) 400 mg PO QAM [facility] Stop: 07/12/24 08:59 Last Admin: 06/15/24 09:15 Dose: 400 mg Nitroglycerin (Nitroglycerin Sl 0.4 Mg/Tab Tab) 0.4 mg SL Q5M PRN PRN Reason: Chest Pain Stop: 07/09/24 23:44 Pantoprazole Sodium (Pantoprazole 40 Mg Tab) 40 mg PO DAILY [facility] Stop: 07/10/24 08:59 Last Admin: 06/15/24 09:15 Dose: 40 mg Polyethylene Glycol (Polyethylene (Miralax) 17 Gm Pack) 17 gm PO DAILY PRN PRN Reason: Constipation Stop: 07/09/24 23:44 Last Admin: 06/12/24 10:20 Dose: 17 gm Rosuvastatin Calcium (Rosuvastatin Calcium 20 Mg Tab) 20 mg PO DAILY [facility] Stop: 07/10/24 08:59 Last Admin: 06/10/24 08:53 Dose: 20 mg Sotalol HCl (Sotalol Hcl 80 Mg Tab) 80 mg PO BID [facility] Stop: 07/14/24 08:59 Last Admin: 06/15/24 09:15 Dose: 80 mg (2) Pneumonia Laterality: bilateral Lung location: lower lobe of lung Pneumonia type: due to unspecified organism Qualified Code(s): J18.9 - Pneumonia, unspecified organism
--- NOTE | 2024-06-15 11:40 | Electrocardiogram Report ---
Test Reason : Blood Pressure : */* mmHG Vent. Rate : 139 BPM Atrial Rate : 278 BPM P-R Int : * ms QRS Dur : 146 ms QT Int : 350 ms P-R-T Axes : 237 -6 266 degrees QTcB Int : 532 ms Atrial flutter with 2:1 A-V conduction Right bundle branch block Abnormal ECG When compared with ECG of 14-Jun-2024 12:56, Atrial flutter has replaced Sinus rhythm Right bundle branch block has replaced Incomplete right bundle branch block ST now depressed in Inferior leads Confirmed by Fadia Medrano (Gabbi) on 06/15/2024 11:40:12 AM Referred By: REFERRED SELF Confirmed By: Fadia Medrano
[2024-06-15] MEDS: 4.5GM X1 IV ONE (12:06)
[2024-06-15] MEDS: HYDROCORTISONE 2.5% CR 30 GM TUBE EXT SCH (15:02)
[2024-06-15] MEDS: dilTIAZem HCl 5 MG/ML 5 ML VIAL IV ONE (15:10)
--- NOTE | 2024-06-15 16:37 | Hospitalist Progress Note ---
Date of Service June 15, 2024 Assessment & Plan (1) Tachycardia: Plan: Ms. 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 As per prior provider: -Family reports that patient has experienced episodic tremors and cramps; however, there is no clear factor contributing. Events do not seem to be correlated to bronchodilators, as the episodes even occur in the middle of the night awakening patient from sleep, many hours from treatments. -There is no sign of infectious process. UA is clean from admission. There are changes in bases of lungs, but these same changes are reflected in ct report from 2020--patient is on stable oxygen at this time. Patient does not have cough, fevers, or other infectious signs, more so oxygen requirements are stable. Procal is 0.06. Therefore will refrain from starting antibiotics at this time given no sign of infection -Question of myositis/inflammatory myopathy given proximal cramping and tremors, mildly ck elevation and esr/crp. ELISA panel, ldh and aldolase ordered. Statin discontinued. Contacted Rheumatology who did not feel this was the case. St eroids deferred. Acute kidney injury Hypokalemia Replete electrolytes as needed Resume home diuretics as able Renal function stable Received IV fluids Monitor renal function Cr 1.0 today Shaking, intermittent generalized tremors DD: Medication induced, rheumatological/endocrinological cause/cardiac arrhythmias Leg cramps--resolved Iron deficiency--started on iron supplement ESR 61, CRP 12.21 and CK 204 Unclear etiology at this time Prior hospitalist discussed with neurology:Could be frontal lobe discharges, therefore obtain EEG --EEG pending Hold statin for now due to elevated CK Prior hospitalist discussed with rheumatology Dr Perkins: less likely an inflammatory myopathy, inflammatory markers likely related to ongoing lung process Rheumatological and workup for catecholamines pending May need follow-up with neurology as outpatient Perforomist held as recommended by cardiology Paroxysmal atrial flutter with rapid ventricular response Elevated troponin likely demand iso HTN, also elevated CK Had echo on 05/27/2024 which showed EF of 60 to 64% and grade 1 diastolic CHF. She also had Zio patch as outpatient as she was having quivering sensations and funny feeling in the chest which showed episodes of SVT possible atrial tachycardia with variable block Recent TSH mildly elevated, normal free T4 Respiratory bio fire negative Patient cardiology input Not a candidate for amiodarone given interstitial lung disease Avoid diltiazem due to hypotension Started on sotalol 80 mg twice a day On IV heparin for anticoagulation Needs follow-up with cardiology on discharge Weight remains uncontrolled, received a dose of IV Cardizem today Continue sotalol as per cardiology If rate remains uncontrolled, will need cardioversion Abnormal CT lungs with scattered tree-bud opacities, but no cough, resp symptoms, fevers leukocytosis potentially in response to tremulous events Procal 0.06 Follow-up as outpatient Transient fever Leukocytosis No clear infectious source Blood cultures no growth to date Empirically started on IV Zosyn Monitor Erythematous rash on back Likely contact dermatitis started on topical Hydrocortisone cream On antibiotics as above Monitor Hypertension Continue sotalol Monitor blood pressure Hypothyroidism Mildly elevated TSH, normal free T4 Continue levothyroxine Chronic respiratory failure with hypoxia on 2 L oxygen COPD Interstitial lung disease Asthma Continue home inhalers May need follow-up with environmental field professional on discharge for medication adjustments as needed Chronic diastolic CHF Resume home diuretics as able Monitor volume status closely GERD On Protonix History of breast cancer S/p lumpectomy and radiation treatment General anxiety disorder On Klonopin as needed DVT prophylaxis IV heparin CODE STATUS Full code Disposition PT OT prior to discharge Admission and Anticipated Discharge Date Admission Date: June 09, 2024 Subjective Patient is seen and examined at bedside Patient is poor historian RN noted erythematous rash on back Remains tachycardic on monitor Discussed with patient's family at bedside Denies any chest pain, dizziness, dyspnea, nausea, vomiting, abdominal pain Review of Systems Review of Systems: All systems reviewed & are unremarkable except as noted in Subjective Physical Exam Physical Exam: Physical Exam: Vitals signs as noted above General Appearance:Moderately built and nourished, no apparent distress Head: normocephalic, Atraumatic Eyes: normal inspection, EOMI Neck: supple, Trachea midline Respiratory/Chest: Decreased breath sounds, CTA, No accessory muscle use Cardiovascular: Irregularly irregular, tachycardia, No murmur Abdomen/GI:Soft, Non tender, Bowel sounds present Extremities/Musculoskeletal:normal inspection, 1+ edema Neurologic/Psych:AAO, grossly no focal neurological deficits Skin: normal color, warm Results & Data Results & Data Vital Signs (Past 12 Hours) Vital Signs Temp Pulse Pulse Resp BP BP Pulse Ox 06/15/24 15:26 36.8 C 145 H 16 104/71 97 06/15/24 15:08 104/71 06/15/24 11:16 146 H 120/80 06/15/24 11:07 36.9 C 18 96 06/15/24 11:01 145 H 123/87 06/15/24 08:00 06/15/24 07:35 36.9 C 142 H 20 125/84 91 06/15/24 07:01 138 H 18 97 O2 Del Method O2 Flow Rate 06/15/24 15:26 Nasal Cannula 4 06/15/24 15:08 06/15/24 11:16 06/15/24 11:07 Nasal Cannula 06/15/24 11:01 06/15/24 08:00 Nasal Cannula 2 06/15/24 07:35 Nasal Cannula 2.0 06/15/24 07:01 Nasal Cannula 2 Laboratory Results Short CBC 06/15/24 Range/Units 08:05 WBC 15.18 H (4.8-10.8) K/ul Hgb 13.3 (12.0-16.0) g/dl Hct 41.0 (37.0-47.0) % Plt Count 230 (130-400) K/uL BMP 06/15/24 08:05 Sodium 137 Potassium 4.3 Chloride 98 Carbon Dioxide 29 BUN 38 H Creatinine 1.06 Glucose 159 H Calcium 8.9
[2024-06-15] MEDS: PIPERACILLIN/TAZOBACTAM 4.5 GM/100 ML BAG IV SCH (18:40)
[2024-06-16 02:26] LABS: Anti Nuclear Antibody Screen NEGATIVE (NEGATIVE); Anti-Centromere Ab <1.0 NEG AI (<1.0 NEG); Anti-SS-A <1.0 NEG AI (<1.0 NEG); Anti-SS-B <1.0 NEG AI (<1.0 NEG); Complement C3 173 mg/dL; DNA ds Crithidia NEGATIVE (NEGATIVE); RNP Antibody <1.0 NEG AI (<1.0 NEG); Sm Antibody <1.0 NEG AI (<1.0 NEG)
[2024-06-16 04:36] LABS: Basophils # (auto) 0.03 K/uL (0.00-0.20); Basophils % (auto) 0.2 %; Eosinophils # (auto) 0.07 K/uL (0.00-0.50); Eosinophils % (auto) 0.5 %; Hematocrit (blood only) 37.7 % (37.0-47.0); Hemoglobin 12.3 g/dl (12.0-16.0); Immature Granulocytes # (auto) 0.14 K/uL (0.01-0.20); Lymphocytes # (auto) 1.53 K/uL (1.20-3.40); Lymphocytes % (auto) 11.1 %; Mean Corpuscular Hemoglobin 28.3 pg (25.0-34.0); Mean Corpuscular Hgb Conc 32.6 g/dL (32.0-36.0); Mean Corpuscular Volume 86.9 fL (80.0-100.0); Monocytes # (auto) 1.23 K/uL (0.11-0.59); Monocytes % (auto) 8.9 %; Neutrophils # (auto) 10.84 K/uL (1.40-6.50); Neutrophils % (auto) 78.3 %; Platelet Count 169 K/uL (130-400); RDW Coefficient of Variation 13.5 % (11.5-14.5); RDW Standard Deviation 43.6 fL (36.4-46.3); Red Blood Count 4.34 M/uL (4.20-5.40); White Blood Count 13.84 K/ul (4.8-10.8)
[2024-06-16 04:45] LABS: BUN Creatinine Ratio 39.3 (10-20); Creatinine Clr Calc Pharmacy 33.5 ml/min; Magnesium 2.4 mg/dl (1.7-2.4); Potassium 4.3 mmol/L (3.5-5.1)
[2024-06-16 04:51] LABS: ANTI-Xa, UFH(UnfractionatedHep < 0.10 IU/ml (0.3-0.7)
[2024-06-16] MEDS ORDERED: HEPARIN SOD (PORCINE) 1000 UNIT/ML IV ONE (05:05)
[2024-06-16] MEDS: HEPARIN SOD (PORCINE) 1000 UNIT/ML IV ONE (05:34)
--- NOTE | 2024-06-16 10:19 | Electrocardiogram Report ---
Test Reason : Blood Pressure : */* mmHG Vent. Rate : 141 BPM Atrial Rate : 282 BPM P-R Int : * ms QRS Dur : 72 ms QT Int : 340 ms P-R-T Axes : 246 -10 250 degrees QTcB Int : 520 ms Atrial flutter with 2:1 A-V conduction Abnormal ECG When compared with ECG of 15-Jun-2024 05:15, Right bundle branch block is no longer Present Confirmed by Fadia Medrano (Gabbi) on 06/16/2024 10:19:25 AM Referred By: REFERRED SELF Confirmed By: Fadia Medrano
[2024-06-16 11:54] LABS: ANTI-Xa, UFH(UnfractionatedHep 0.45 IU/ml (0.3-0.7)
--- NOTE | 2024-06-16 13:08 | Cardiology Progress Note ---
Date of Service June 16, 2024 Assessment & Plan (1) Tachycardia: (2) Pneumonia: (3) Hypoxia: (4) Interstitial lung disease: (5) Paroxysmal atrial flutter: Plan 83-year-old female with chronic interstitial lung disease possible aspiration component presented due to shakiness and palpitations and chest. Malaise and weakness. EKG with sinus tachycardia on 2 serial testings. Troponin mildly elevated. Suspect sinus tachycardia secondary to multiple underlying medical concerns possibly being driven by bronchodilators inhalers as well. Event monitor approximately 1 year ago did demonstrate short runs of supraventricular tachycardia. Recommendations: Sinus tachycardia: Being driven by underlying medical issues including chronic interstitial lung disease with hypoxia. Treat underlying medical concerns. Assess thyroid function. Treat hypoxia, pain, infection Suspect component of bronchodilators contributing. May need reduction in nebulizers will trial low-dose beta-stan to aid in heart rate management given mild elevation in troponin Continue aspirin, statin 06/13/2024 Patient since admission with intermittent sinus tachycardia and elevated heart rates. Shakiness and unsteadiness. This morning lapsed into intermittent atrial flutter on telemetry. Patient not significantly aware. No edema on examination. Laboratory studies reflect hypokalemia. Recommendations: Supplement potassium to greater than 4 Will increase metoprolol succinate to 50 mg a day. Would hold bronchodilator as it may be contributing to arrhythmias and current complaints Interstitial lung disease remains chronic issue. Amiodarone contraindicated. Could consider sotalol if her atrial flutter remains issue Patient at increased risk for chronic anticoagulation but will need to be discussed 06/14/2024 Fragile 83-year-old female with underlying interstitial lung disease admitted with sinus tachycardia and possible pulmonary exacerbation generalized malaise. Since hospitalization now has lapsed into atrial flutter with elevated ventricular response rate. Patient not specifically aware of sense of tachypalpitations. 1. Paroxysmal atrial flutter with rapid ventricular response: As per previous note will initiate sotalol 80 mg twice per day to begin this morning. Anticoagulation initiated with IV heparin. Would avoid further diltiazem given hypotensive response Maintain oxygen supplementation, avoid hypoxia, hypokalemia. In part tachycardias may be driven by patient's underlying bronchodilator use. 2. Mild troponin elevation consistent with demand ischemia with preserved LV systolic function. Will follow serial echoes with sotalol usage. Anti coagulation indicated due to atrial arrhythmias 06/15/24: Patient started on sotalol 80 mg BID yesterday in attempt to improve Atrial flutter. She remains in atrial flutter this morning with elevated rates at 140's. Not overtly symptomatic. Just received 3rd dose of sotalol 80 mg this morning. QT/QTC interval likely not accurate on EKG given elevated rates and measuring flutter waves. Give one dose IV metoprolol 5 mg to aid with HR's this morning. If rates trend downward, repeat EKG in attempt to obtain accurate measurement of QT interval. Continue IV heparin. Maintain oxygen supplementation and limit bronchodilator as this has contributed to tachycardia in the past. Not a candidate for amiodarone given underlying interstitial lung disease. 06/16/24: Complex patient with underlying interstitial lung disease with recent exacerbation. developed atrial flutter RVR earlier this admission. Started on IV heparin. Trial of diltiazem resulted in hypotension. she also failed to tolerate higher dose metoprolol due to hypotension. Amiodarone not advised/recommended due to interstital lung disease. Sotalol started Monday morning. Received 5th dose this morning. EKG reading QTC as 520, however per personal review, it appears to be less than 500. Inaccurately measuring flutter waves, not T wave. Repeat EKG when HR slows or when she converts to NSR to monitor QT interval. If patient fails to convert to NSR today, will likely need YELITZA guided cardioversion Monday after 6 full doses of sotalol. Make NPO at midnight. Continue IV heparin for now. Continue oxygen supplementation Further recommendations pending discussion/evaluation with Dr. Wheeler I spent a total of 40 minutes on the date of service in preparation, delivery, and documentation of the care provided to this patient, excluding any time spent in the performance of separately billed services. Amber Dockery PA-C Department of Cardiology, [facility] This chart was completed in part utilizing Speech Voice Recognition Software. Grammatical errors, random word insertions, pronoun errors, and incomplete sentences are an occasional consequence of this system due to software limitations, ambient noise, and hardware issues. Any formal questions or concerns about the content, text, or information contained within the body of this dictation should be directly addressed to the provider for clarification. Admission and Anticipated Discharge Date Admission Date: June 09, 2024 Supervising Physician Co-Signing Physician Notes I have reviewed the advanced practitioner's documentation on the date of service referenced in note, and I agree with, and take responsibility for the plan of care. I spent a total of [25] minutes coordinating, documenting, and providing care for this patient excluding time spent in the performance of separately billed services or time spent by another provider. 83-year-old with significant underlying interstitial lung disease admitted with sinus tachycardia during the hospitalization went into atrial flutter with rapid ventricular response. Patient was given metoprolol without much response and diltiazem did respond but however had hypotensive response. has been started on sotalol 06/14 continues to remain tachycardic at 140 's no respone to medications PLan for YELITZA cardioversion discussed with granddaughter - RN at [place] . Subjective Patient poor historian. Resting in bed. Appears comfortable. She reports ongoing dyspnea but denies chest pain. No palpitations or tachypalpitations. Review of Systems Review of Systems: All systems reviewed & are unremarkable except as noted in HPI & below Physical Exam Constitutional: + frail appearing; no acute distress Eyes: PERRL, conjunctivae normal, anicteric sclerae ENMT: external ear and nose normal, oropharynx normal Neck: trachea midline, no thyromegaly Respiratory: Auscultation: + diminished lung sounds Cardiovascular: RRR, no murmur, no edema Rate/Rhythm: regular rate, regular rhythm and + tachycardic Vessels: no JVD Extremities: no edema Chest (Breasts): normal inspection/palpation of breasts Gastrointestinal (Abdomen): normal bowel sounds, soft, nontender, no hepatosplenomegaly Neurologic: PERRL, EOMI, accommodation nl, no face palsy, no dysarthria Results & Data Vital Signs (Past 12 Hours) Vital Signs Temp Pulse Resp BP Pulse Ox O2 Del Method O2 Flow Rate 06/16/24 11:30 36.6 C 140 H 16 118/75 96 Nasal Cannula 06/16/24 07:50 Nasal Cannula 2 06/16/24 07:43 36.6 C 143 H 20 93/69 L 94 Nasal Cannula 2 06/16/24 07:41 144 H 18 94 Nasal Cannula 2 06/16/24 03:00 36.5 C 140 H 16 129/76 96 Nasal Cannula 2 Laboratory Results Cardiac Enzymes 06/15/24 Range/Units 18:45 Troponin I High Sens 573.9 H* D (0-14) pg/ml CBC 06/16/24 Range/Units 04:01 WBC 13.84 H (4.8-10.8) K/ul RBC 4.34 (4.20-5.40) M/uL Hgb 12.3 (12.0-16.0) g/dl Hct 37.7 (37.0-47.0) % Plt Count 169 (130-400) K/uL Neut # (Auto) 10.84 H (1.40-6.50) K/uL Lymph # (Auto) 1.53 (1.20-3.40) K/uL [place] # (Auto) 1.23 H (0.11-0.59) K/uL Eos # (Auto) 0.07 (0.00-0.50) K/uL Baso # (Auto) 0.03 (0.00-0.20) K/uL Comprehensive Metabolic Panel 06/16/24 Range/Units 04:01 Sodium 136 (136-145) mmol/L Potassium 4.3 (3.5-5.1) mmol/L Chloride 98 (98-107) mmol/L Carbon Dioxide 31 (21-32) mmol/L BUN 42 H (6-23) mg/dl Creatinine 1.07 (0.6-1.2) mg/dl Glucose 147 H (70-99(Fasting)) mg/dl Calcium 9.0 (8.6-10.3) mg/dl Intake and Output 06/15/24 06/16/24 06/16/24 22:59 06:59 14:59 Intake Total 357.25 / 935.433 278.20 / 935.433 112.000 / 112.000 Output Total 50 / 52 Balance 355.25 / 883.433 228.20 / 883.433 112.000 / 112.000 Intake: IV 207.25 / 735.433 228.20 / 735.433 112.000 / 112.000 Heparin Sodium/Dextrose 25,000 107.25 / 435.433 128.20 / 435.433 112.000 / 112.000 units In 500 ml @ 800 UNITS/HR 16 mls/hr IV .Q24H [facility] Rx#: [id number] Piperacillin/Tazobactam 4.5 gm 100 / 200 100 / 200 In 100 ml @ 25 mls/hr IV Q8H [facility] Rx#:[id number] Oral 150 / 200 50 / 200 Output: Urine 50 / 50 # Bowel Movements 2 / 2 Other: # Unmeasured Voids 1 Weight 64.1 kg Weight Measurement Method Built in [facility] Diagnostic Findings Telemetry reviewed: Persistent atrial flutter with RVR in the 140s EKG reviewed from this morning dated 06/16/24: Atrial flutter with 2:1 conduction at [address]/T wave abnormality in inferolateral leads. QT/QTc reviewed 340/520 ms (however per personal review, QTc measurement likely not accurate and measuring flutter waves, not T wave) Medications Administered Current Inpatient Medications Acetaminophen (Acetaminophen 325 Mg Tab) 650 mg PO Q4H PRN PRN Reason: Pain or Fever Stop: 07/09/24 23:44 Last Admin: 06/14/24 20:22 Dose: 650 mg Amitriptyline HCl (Amitriptyline Hcl 25 Mg Tab) 25 mg PO HS [facility] Stop: 07/09/24 23:44 Last Admin: 06/15/24 20:02 Dose: 25 mg Budesonide (Budesonide 0.5 Mg/2 Ml Vial (Pulmicort)) 0.5 mg INH BIDR [facility] Stop: 07/09/24 23:44 Last Admin: 06/16/24 07:41 Dose: 0.5 mg Clonazepam (Clonazepam 0.5 Mg Tab) 0.25 mg PO Q6H PRN PRN Reason: Anxiety Stop: 07/09/24 23:44 Last Admin: 06/15/24 21:19 Dose: 0.25 mg Ferrous Sulfate (Ferrous Sulfate 325 Mg Tab) 325 mg PO QAM [facility] Stop: 07/12/24 08:59 Last Admin: 06/16/24 08:44 Dose: 325 mg Formoterol Fumarate (Formoterol 20 Mcg/2 Ml Vial) 20 mcg INH BIDR [facility] Stop: 07/09/24 23:44 Last Admin: 06/13/24 07:31 Dose: 20 mcg Furosemide (Furosemide 20 Mg Tab) 20 mg PO BID@0900,1400 [facility] Stop: 07/13/24 08:59 Hydrocortisone (Hydrocortisone 2.5% Cr 30 Gm Tube) 1 appln EXT BID [facility] Stop: 07/15/24 09:29 Last Admin: 06/16/24 08:44 Dose: 1 appln Heparin Sodium/Dextrose (Heparin Sodium/Dextrose) 25,000 units in 500 mls @ 16 mls/hr IV .Q24H [facility]; Protocol Stop: 07/14/24 08:44 Last Titration: 06/16/24 12:18 Dose: 800 units/hr, 16 mls/hr Piperacillin Sod/Tazobactam Sod (Zosyn) 4.5 gm in 100 mls @ 25 mls/hr IV Q8H [facility]; Protocol Stop: 06/17/24 17:59 Last Admin: 06/16/24 11:18 Dose: 25 mls/hr Levalbuterol HCl (Levalbuterol Tartrate 15 Gm Hfa.Aer.Ad) 2 puffs INH QID PRN PRN Reason: Shortness Of Breath Or Wheezin Stop: 07/09/24 23:44 Last Admin: 06/15/24 07:07 Dose: 2 puffs Levothyroxine Sodium (Levothyroxine Sodium 125 Mcg Tablet) 125 mcg PO DAILYBB [facility] Stop: 07/10/24 06:29 Last Admin: 06/16/24 05:48 Dose: 125 mcg Magnesium Oxide (Magnesium Oxide 400 Mg Tab) 400 mg PO QAM [facility] Stop: 07/12/24 08:59 Last Admin: 06/16/24 08:44 Dose: 400 mg Nitroglycerin (Nitroglycerin Sl 0.4 Mg/Tab Tab) 0.4 mg SL Q5M PRN PRN Reason: Chest Pain Stop: 07/09/24 23:44 Pantoprazole Sodium (Pantoprazole 40 Mg Tab) 40 mg PO DAILY [facility] Stop: 07/10/24 08:59 Last Admin: 06/16/24 08:44 Dose: 40 mg Polyethylene Glycol (Polyethylene (Miralax) 17 Gm Pack) 17 gm PO DAILY PRN PRN Reason: Constipation Stop: 07/09/24 23:44 Last Admin: 06/12/24 10:20 Dose: 17 gm Rosuvastatin Calcium (Rosuvastatin Calcium 20 Mg Tab) 20 mg PO DAILY [facility] Stop: 07/10/24 08:59 Last Admin: 06/10/24 08:53 Dose: 20 mg Sotalol HCl (Sotalol Hcl 80 Mg Tab) 80 mg PO BID [facility] Stop: 07/14/24 08:59 Last Admin: 06/16/24 08:44 Dose: 80 mg (2) Pneumonia Laterality: bilateral Lung location: lower lobe of lung Pneumonia type: due to unspecified organism Qualified Code(s): J18.9 - Pneumonia, unspecified organism
--- NOTE | 2024-06-16 15:21 | Hospitalist Progress Note ---
Date of Service June 16, 2024 Assessment & Plan (1) Tachycardia: Plan: Ms. 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 As per prior provider: -Family reports that patient has experienced episodic tremors and cramps; however, there is no clear factor contributing. Events do not seem to be correlated to bronchodilators, as the episodes even occur in the middle of the night awakening patient from sleep, many hours from treatments. -There is no sign of infectious process. UA is clean from admission. There are changes in bases of lungs, but these same changes are reflected in ct report from 2020--patient is on stable oxygen at this time. Patient does not have cough, fevers, or other infectious signs, more so oxygen requirements are stable. Procal is 0.06. Therefore will refrain from starting antibiotics at this time given no sign of infection -Question of myositis/inflammatory myopathy given proximal cramping and tremors, mildly ck elevation and esr/crp. ELISA panel, ldh and aldolase ordered. Statin discontinued. Contacted Rheumatology who did not feel this was the case. St eroids deferred. Acute kidney injury Hypokalemia Replete electrolytes as needed Resume home diuretics as able Renal function stable Received IV fluids Monitor renal function Renal function back to baseline Shaking, intermittent generalized tremors DD: Medication induced, rheumatological/endocrinological cause/cardiac arrhythmias Leg cramps--resolved Iron deficiency--started on iron supplement ESR 61, CRP 12.21 and CK 204 Unclear etiology at this time Prior hospitalist discussed with neurology:Could be frontal lobe discharges, therefore obtain EEG --EEG pending Hold statin for now due to elevated CK Prior hospitalist discussed with rheumatology Dr Perkins: less likely an inflammatory myopathy, inflammatory markers likely related to ongoing lung process Rheumatological workup not contributory Catecholamines workup pending May need follow-up with neurology as outpatient Perforomist held as recommended by cardiology Paroxysmal atrial flutter with rapid ventricular response Elevated troponin likely demand iso HTN, also elevated CK Had echo on 05/27/2024 which showed EF of 60 to 64% and grade 1 diastolic CHF. She also had Zio patch as outpatient as she was having quivering sensations and funny feeling in the chest which showed episodes of SVT possible atrial tachycardia with variable block Recent TSH mildly elevated, normal free T4 Respiratory bio fire negative Patient cardiology input Not a candidate for amiodarone given interstitial lung disease Avoid diltiazem due to hypotension Started on sotalol 80 mg twice a day On IV heparin for anticoagulation Needs follow-up with cardiology on discharge Continue sotalol as per cardiology If fails to convert to sinus, plan for cardioversion tomorrow N.p.o. after midnight Abnormal CT lungs with scattered tree-bud opacities, but no cough, resp symptoms, fevers leukocytosis potentially in response to tremulous events Procal 0.06 Follow-up as outpatient Transient fever Leukocytosis No clear infectious source Blood cultures no growth to date Empirically started on IV Zosyn Monitor Erythematous rash on back Likely contact dermatitis started on topical Hydrocortisone cream On antibiotics as above Monitor Rash improving Hypertension Continue sotalol Monitor blood pressure Hypothyroidism Mildly elevated TSH, normal free T4 Continue levothyroxine Chronic respiratory failure with hypoxia on 2 L oxygen COPD Interstitial lung disease Asthma Continue home inhalers May need follow-up with meter and service line inspector on discharge for medication adjustments as needed Chronic diastolic CHF Resume home diuretics as able Monitor volume status closely GERD On Protonix History of breast cancer S/p lumpectomy and radiation treatment General anxiety disorder On Klonopin as needed DVT prophylaxis IV heparin CODE STATUS Full code Disposition PT OT prior to discharge Admission and Anticipated Discharge Date Admission Date: June 09, 2024 Subjective Patient is seen and examined at bedside Patient is poor historian Subjectively feels better Discussed with patient's family at bedside Tachycardic on monitor Rash on slowly improving Denies any chest pain, dizziness, dyspnea, nausea, vomiting, abdominal pain Review of Systems Review of Systems: All systems reviewed & are unremarkable except as noted in Subjective Physical Exam Physical Exam: Physical Exam: Vitals signs as noted above General Appearance:Moderately built and nourished, no apparent distress Head: normocephalic, Atraumatic Eyes: normal inspection, EOMI Neck: supple, Trachea midline Respiratory/Chest: Decreased breath sounds, CTA, No accessory muscle use Cardiovascular: Irregularly irregular, tachycardia, No murmur Abdomen/GI:Soft, Non tender, Bowel sounds present Extremities/Musculoskeletal:normal inspection, 1+ edema Neurologic/Psych:AAO, grossly no focal neurological deficits Skin: normal color, warm Results & Data Results & Data Vital Signs (Past 12 Hours) Vital Signs Temp Pulse Resp BP Pulse Ox O2 Del Method O2 Flow Rate 06/16/24 14:30 36.7 C 144 H 18 109/72 96 Nasal Cannula 2.0 06/16/24 11:30 36.6 C 140 H 16 118/75 96 Nasal Cannula 06/16/24 07:50 Nasal Cannula 2 06/16/24 07:43 36.6 C 143 H 20 93/69 L 94 Nasal Cannula 2 06/16/24 07:41 144 H 18 94 Nasal Cannula 2 Laboratory Results Short CBC 06/16/24 Range/Units 04:01 WBC 13.84 H (4.8-10.8) K/ul Hgb 12.3 (12.0-16.0) g/dl Hct 37.7 (37.0-47.0) % Plt Count 169 (130-400) K/uL BMP 06/16/24 04:01 Sodium 136 Potassium 4.3 Chloride 98 Carbon Dioxide 31 BUN 42 H Creatinine 1.07 Glucose 147 H Calcium 9.0
[2024-06-17 06:23] LABS: Hematocrit (blood only) 36.4 % (37.0-47.0); Hemoglobin 11.6 g/dl (12.0-16.0); Mean Corpuscular Hgb Conc 31.9 g/dL (32.0-36.0); Mean Corpuscular Volume 87.7 fL (80.0-100.0); Mean Platelet Volume 11.1 fL (9.4-12.4); Platelet Count 158 K/uL (130-400); RDW Coefficient of Variation 13.3 % (11.5-14.5); RDW Standard Deviation 43.4 fL (36.4-46.3); Red Blood Count 4.15 M/uL (4.20-5.40); White Blood Count 11.31 K/ul (4.8-10.8)
[2024-06-17 06:46] LABS: Calcium 8.8 mg/dl (8.6-10.3); Creatinine Clr Calc Pharmacy 37.8 ml/min; Magnesium 2.4 mg/dl (1.7-2.4); Potassium 4.4 mmol/L (3.5-5.1)
[2024-06-17 06:54] LABS: ANTI-Xa, UFH(UnfractionatedHep 0.23 IU/ml (0.3-0.7)
--- NOTE | 2024-06-17 07:26 | Anesthesiology Consultation ---
Date of Service June 17, 2024 Assessment & Plan ASA ASA3 Proposed Anesthesia Anesthesia Type: MAC Risk / Benefits Reviewed With: PT / POA / Parent / Guardian, Accepts Plan and Informed Consent Obtained History Surgery Operation Date: 06/17/24 07:30 Proposed Procedures p Transesophageal Echo w/Anesthesia - Rakesh Solis DO s Cardioversion - Rakesh Solis DO Height/Weight Height: 4 ft 11 in Weight: 64.2 kg Allergies Allergy/AdvReac Type Severity Reaction Status Date / Time iodine Allergy Severe ORAL AND Verified 06/09/24 21:04 FACIAL SWELLING methadone Allergy Severe Shakiness Verified 06/09/24 21:04 propoxyphene Allergy Severe Shakiness Verified 06/09/24 21:04 shellfish derived Allergy Severe ORAL AND Verified 06/09/24 21:04 FACIAL SWELLING clarithromycin Allergy Unknown unknown Verified 06/09/24 21:04 prednisone Allergy Unknown Shakiness Verified 06/09/24 21:04 Serotonin 5HT-3 Antagonists Allergy Unknown Anxiety Verified 06/09/24 21:04 morphine AdvReac Unknown LIGHTHEADED Verified 06/09/24 21:04 Medications Home Medications Medication Instructions Recorded Confirmed Last Taken albuterol sulfate 90 mcg/actuation 2 puff inhalation Q6H PRN 06/09/24 06/09/24 Unknown aerosol inhaler (Ventolin HFA) Shortness Of Breath Or Wheezing amitriptyline 25 mg tablet 25 mg PO HS 06/09/24 06/09/24 Unknown arformoterol 15 mcg/2 mL solution 15 mcg inhalation BID 06/09/24 06/09/24 Unknown for nebulization budesonide 0.5 mg/2 mL suspension 0.5 mg inhalation BID 06/09/24 06/09/24 Unknown for nebulization clonazepam 0.5 mg tablet 0.25 mg PO Q6H PRN Anxiety 06/09/24 06/09/24 Unknown furosemide 40 mg tablet 40 mg PO UD 06/09/24 06/09/24 Unknown levothyroxine 125 mcg tablet 125 mcg PO DAILY 06/09/24 06/09/24 Unknown Active Medications Generic Name Dose Route Start Last Admin Trade Name Freq PRN Reason Stop Dose Admin Acetaminophen 650 mg 06/09/24 23:45 06/14/24 20:22 Acetaminophen 325 Mg Tab PO 07/09/24 23:44 650 mg Q4H PRN Administration Pain or Fever Amitriptyline HCl 25 mg 06/09/24 23:45 06/16/24 19:54 Amitriptyline Hcl 25 Mg Tab PO 07/09/24 23:44 25 mg HS MILY Administration Budesonide 0.5 mg 06/09/24 23:45 06/17/24 07:17 Budesonide 0.5 Mg/2 Ml Vial (Pulmicort) INH 07/09/24 23:44 Not Given BIDR MILY Clonazepam 0.25 mg 06/09/24 23:45 06/17/24 01:18 Clonazepam 0.5 Mg Tab PO 07/09/24 23:44 0.25 mg Q6H PRN Administration Anxiety Ferrous Sulfate 325 mg 06/12/24 09:00 06/16/24 08:44 Ferrous Sulfate 325 Mg Tab PO 07/12/24 08:59 325 mg QAM MILY Administration Formoterol Fumarate 20 mcg 06/09/24 23:45 06/13/24 07:31 Formoterol 20 Mcg/2 Ml Vial INH 07/09/24 23:44 20 mcg BIDR MILY Administration Hydrocortisone 1 appln 06/15/24 09:30 06/16/24 19:54 Hydrocortisone 2.5% Cr 30 Gm Tube EXT 07/15/24 09:29 1 appln BID MILY Administration Heparin Sodium/Dextrose 25,000 units in 500 mls @ 16 mls/hr 06/14/24 08:45 06/17/24 07:08 Heparin Sodium/Dextrose IV 07/14/24 08:44 0 units/hr .Q24H MILY 0 mls/hr Titration Protocol 800 UNITS/HR Piperacillin Sod/Tazobactam Sod 4.5 gm in 100 mls @ 25 mls/hr 06/15/24 18:00 06/17/24 06:19 Zosyn IV 06/17/24 17:59 Infused Q8H MILY Infusion Protocol Levalbuterol HCl 2 puffs 06/09/24 23:45 06/15/24 07:07 Levalbuterol Tartrate 15 Gm Hfa.Aer.Ad INH 07/09/24 23:44 2 puffs QID PRN Administration Shortness Of Breath Or Wheezin Levothyroxine Sodium 125 mcg 06/10/24 06:30 06/16/24 05:48 Levothyroxine Sodium 125 Mcg Tablet PO 07/10/24 06:29 125 mcg DAILYBB MILY Administration Magnesium Oxide 400 mg 06/12/24 09:00 06/16/24 08:44 Magnesium Oxide 400 Mg Tab PO 07/12/24 08:59 400 mg QAM MILY Administration Pantoprazole Sodium 40 mg 06/10/24 09:00 06/16/24 08:44 Pantoprazole 40 Mg Tab PO 07/10/24 08:59 40 mg DAILY MILY Administration Polyethylene Glycol 17 gm 06/09/24 23:45 06/12/24 10:20 Polyethylene (Miralax) 17 Gm Pack PO 07/09/24 23:44 17 gm DAILY PRN Administration Constipation Rosuvastatin Calcium 20 mg 06/10/24 09:00 06/10/24 08:53 Rosuvastatin Calcium 20 Mg Tab PO 07/10/24 08:59 20 mg DAILY MILY Administration Sotalol HCl 80 mg 06/14/24 09:00 06/16/24 19:54 Sotalol Hcl 80 Mg Tab PO 07/14/24 08:59 80 mg BID MILY Administration Past Medical History Medical History Dyslipidemia Chronic heart failure with perserved EF SOB (shortness of breath) Multifactorial per pulmonary- chronic HF, chronic hypoxic respiratory failure, possible ILD, asthma, obesity, Covid infection 07/2020, multifocal consolidations/scarring, non allergic rhinitis History of pneumonia 12/2020 - required cont oxygen upon d/c from hospital and remains on Fear of needles Limb alert care status LUE Difficult intravenous access required assistance from IV team in past History of COVID-19 06/2020; asymptomatic Sleep apnea unable to tolerate CPAP History of home oxygen therapy 2 lpm cont- secondary to chronic hypoxic respiratory failure per pulm Tachycardia ANXIETY RELATED PER PATIENT. follows with Dr. Arguello Breast cancer Left breast 2001- sx + radiation GERD (gastroesophageal reflux disease) Hypothyroidism Anxiety Hx of deep venous thrombosis LLE - "years ago" - r/t injury Asthma Follows with Dr. Geiger S. Uses PRN neb daily Exercise / Class Metabolic Activity II 4-5 Yardwork/Stairs/Walk up hill Past Surgical History Surgical History History of lumpectomy of left breast History of breast biopsy History of removal of cyst History of bilateral tubal ligation History of arthroscopy BILAT KNEES History of esophagogastroduodenoscopy (EGD) History of colonoscopy Hx of hernia repair History of cholecystectomy Past Anesthesia History No Hx of Anesthesia Complications and No Family Hx of Anesthesia Complications History of PONV No Hx of PONV and No Hx of Motion Sickness Social History Smoking Status: Never smoker Do You Dip or Chew Tobacco: No Hx Alcohol Use: No Hx Substance Use: No substance use type: does not use Review of Systems denies fever/cough/ colds/ chest pain/ SOB/ NIXON denies NIXON Physical Exam Vital Signs Last Vital Signs Temp 37.0 C 06/17/24 03:15 Pulse 143 H 06/17/24 03:15 Resp 16 06/17/24 03:15 BP 110/78 06/17/24 03:15 Pulse Ox 97 06/17/24 03:15 O2 Del Method Nasal Cannula 06/17/24 03:15 O2 Flow Rate 2 06/17/24 03:15 Constitutional + altered mental status (pt minimally responsive) ENMT Mouth: no TMJ abnormality and no dentition abnormality Thyromental Distance: > or= 3.5 Finger Breadths Mallampati Class: II Neck neck extension not limited Respiratory normal respiratory effort; no respiratory distress Auscultation: lungs clear to auscultation bilaterally Cardiovascular Rate/Rhythm: + tachycardic; + abnormal rate and + abnormal rhythm Neurologic moves all extremities Psychiatric Orientation: alert and oriented x 3 Testing Laboratory Results 06/17/24 05:32 06/17/24 05:28 PT 11.8 Seconds (9.0-12.0) 06/14/24 11:41 INR 1.1 (0.9-1.1) 06/14/24 11:41 APTT 40 Seconds (21-31) H 06/14/24 11:41 Urine Color Yellow 06/14/24 03:15 Urine Appearance Clear (Clear) 06/14/24 03:15 Urine pH 6.0 (4.5-7.5) 06/14/24 03:15 Ur Specific [place] 1.008 (1.000-1.030) 06/14/24 03:15 Urine Protein Trace (Negative) H 06/14/24 03:15 Urine Glucose (UA) Negative (Negative) 06/14/24 03:15 Urine Ketones 1+ (Negative) H 06/14/24 03:15 Urine Nitrite Negative (Negative) 06/14/24 03:15 Ur Leukocyte Esterase Negative (Negative) 06/14/24 03:15 Urine WBC (Auto) 0-5 /hpf (0-5) 06/14/24 03:15 Urine RBC (Auto) 0-2 /hpf (0-2) 06/14/24 03:15 U Hyaline Cast (Auto) 0-2 /lpf (0-2) 06/14/24 03:15 U Epithel Cells (Auto) 0-2 /hpf (0-2) 06/14/24 03:15 Urine Bacteria (Auto) None Seen (None Seen) 06/14/24 03:15 06/14/24 03:21 Aerobic Blood Culture - Preliminary Blood No growth in Aerobic bottle after 48 hours. Anaerobic Blood Culture - Preliminary No growth in Anaerobic bottle after 48 hours. 06/14/24 03:21 Aerobic Blood Culture - Preliminary Blood No growth in Aerobic bottle after 48 hours. Anaerobic Blood Culture - Preliminary No growth in Anaerobic bottle after 48 hours. 06/09/24 16:27 Aerobic Blood Culture - Final Blood No growth in Aerobic bottle after 5 days. Anaerobic Blood Culture - Final No growth in Anaerobic bottle after 5 days.
[2024-06-17] MEDS: METOPROLOL TARTRATE 1 MG/ML VIAL IV STA (08:01)
[2024-06-17] MEDS ORDERED: LIDOCAINE 2% 2 ML VIAL/AMP(20MG/ML) INFIL ONE (08:07)
[2024-06-17] MEDS ORDERED: PROPOFOL IV EMULSION 10 MG/ML 20 ML VIAL IV ONE (08:07)
--- NOTE | 2024-06-17 08:14 | Post Operative Brief Note ---
Cardiology Brief Post Op Date of Surgery June 17, 2024 Pre & Post Diagnosis Operation Date: 06/17/24 07:30 Procedure Preprocedure diagnosis: Atrial flutter with rapid ventricular response, rule out left atrial/left atrial appendage thrombus Post procedure diagnosis: No transesophageal echocardiogram evidence of left atrial or left atrial appendage thrombus, successful conversion to sinus rhythm Transesophageal echocardiogram guided direct-current cardioversion procedure note: Consent was obtained via telephone call with the patient's son, Marino, as the patient's mental status did not allow for informed consent. After a timeout was performed the patient was sedated with the assistance of the anesthesia service receiving a total of 25 mg of IV propofol and 1 mg of Versed. A focused goal-directed transesophageal echocardiogram was performed for restratification prior to direct-current cardioversion. There is no evidence of left atrial or left atrial appendage thrombus. The patient then underwent direct-current cardioversion receiving a single dose of 200 J of biphasic synchronized energy with successful conversion to sinus rhythm. Plan: Metoprolol 2.5 mg IV x 1 administered post cardioversion. Continue unfractionated heparin pending assessment of swallowing status and decision with regards to transition to warfarin versus Eliquis. Continue oral sotalol 80 mg p.o. twice daily Ehs Specialist Rakesh Solis DO Yarn Dry Room Worker Theodora Mata, GALINA Estimated Blood Loss 0 Findings Consistent with Post-Op Diagnosis as noted above Anesthesia Type MAC Complications No complications were immediately apparent
--- NOTE | 2024-06-17 08:17 | Cardioversion ---
Date of Service June 17, 2024 Electrical Cardioversion Rpt Electrical Cardioversion Report Procedure Preprocedure diagnosis: Atrial flutter with rapid ventricular response, rule out left atrial/left atrial appendage thrombus Post procedure diagnosis: No transesophageal echocardiogram evidence of left atrial or left atrial appendage thrombus, successful conversion to sinus rhythm Transesophageal echocardiogram guided direct-current cardioversion procedure note: Consent was obtained via telephone call with the patient's son, Marino, as the patient's mental status did not allow for informed consent. After a timeout was performed the patient was sedated with the assistance of the anesthesia service receiving a total of 25 mg of IV propofol and 1 mg of Versed. A focused goal-directed transesophageal echocardiogram was performed for restratification prior to direct-current cardioversion. There is no evidence of left atrial or left atrial appendage thrombus. The patient then underwent direct-current cardioversion receiving a single dose of 200 J of biphasic synchronized energy with successful conversion to sinus rhythm. Plan: Metoprolol 2.5 mg IV x 1 administered post cardioversion. Continue unfractionated heparin pending assessment of swallowing status and decision with regards to transition to warfarin versus Eliquis. Continue oral sotalol 80 mg p.o. twice daily Trimming Cutter Rakesh Solis DO Pattern Vault Clerk Theodora Mata, [facility] Estimated Blood Loss 0 Findings as noted above Anesthesia Type MAC Complications No complications were immediately apparent
--- NOTE | 2024-06-17 08:57 | Electrocardiogram Report ---
Test Reason : Blood Pressure : */* mmHG Vent. Rate : 151 BPM Atrial Rate : 151 BPM P-R Int : 184 ms QRS Dur : 100 ms QT Int : 228 ms P-R-T Axes : -41 -22 154 degrees QTcB Int : 361 ms Atrial flutter vs other SVT Low voltage QRS Incomplete right bundle branch block Nonspecific ST and T wave abnormality Abnormal ECG When compared with ECG of 14-Jun-2024 06:00, similar to prior ECG Confirmed by Fadia Medrano ([id number]) on 06/17/2024 8:57:04 AM Referred By: REFERRED SELF Confirmed By: Fadia Medrano
[2024-06-17] MEDS: BENZOCAINE/TETRACAIN/BUTAM 50 APPLN/5 GM CAN EXT ONE (09:29)
[2024-06-17] MEDS: MIDAZOLAM HCL 1 MG/ML 2ML VIAL ONE (09:29)
[2024-06-17] MEDS: METOPROLOL TARTRATE 1 MG/ML VIAL IV ONE (09:30)
--- NOTE | 2024-06-17 10:34 | Electrocardiogram Report ---
Test Reason : Blood Pressure : */* mmHG Vent. Rate : 143 BPM Atrial Rate : 143 BPM P-R Int : 72 ms QRS Dur : 182 ms QT Int : 336 ms P-R-T Axes : * -14 266 degrees QTcB Int : 518 ms Atrial flutter with 2 to 1 block Right bundle branch block Abnormal ECG When compared with ECG of 16-Jun-2024 06:04, No significant change Confirmed by Phil Tsai ([id number]) on 06/17/2024 10:34:22 AM Referred By: REFERRED SELF Confirmed By: Phil Tsai
--- NOTE | 2024-06-17 10:52 | Electrocardiogram Report ---
Test Reason : Blood Pressure : */* mmHG Vent. Rate : 84 BPM Atrial Rate : 84 BPM P-R Int : 168 ms QRS Dur : 84 ms QT Int : 352 ms P-R-T Axes : 60 14 82 degrees QTcB Int : 415 ms Normal sinus rhythm Normal ECG When compared with ECG of 17-Jun-2024 05:44, (unconfirmed) IL interval has increased Vent. rate has decreased by 59 bpm Right bundle branch block is no longer Present Confirmed by Phil Tsai ([id number]) on 06/17/2024 10:51:41 AM Referred By: REFERRED SELF Confirmed By: Phil Tsai
--- NOTE | 2024-06-17 11:43 | Fluoroscopy Report ---
MODIFIED BARIUM SWALLOW CLINICAL HISTORY: r/o aspiration COMPARISON STUDY: None. FLUOROSCOPY TIME: 2.31 minutes. Ka,r: 16.9 mGy. TECHNIQUE: A modified barium swallow was performed in conjunction with Speech Pathology. The patient ingested varying consistencies of barium containing material. Video fluoroscopy was performed. FINDINGS: No tracheal aspiration was identified with thin liquids, nectar thick liquids, pudding or c racker and pudding consistency. Minimal penetration was noted with thin liquids. Epiglottic inversion was normal. Laryngeal elevation was normal. IMPRESSION: 1. No tracheal aspiration. 2. Full recommendations by Speech pathology to follow. ACT 112: Negative or not required by law. Electronically signed by: Johnnie Hdz M.D. 06/17/2024 11:41 AM
[2024-06-17] MEDS ORDERED: methylPREDNISolone 125 MG/2 ML VIAL IV ONE (11:59)
[2024-06-17] MEDS ORDERED: Nursing to Pharmacy Communication SCH (12:00)
--- NOTE | 2024-06-17 12:28 | Anesthesiology Progress Note ---
Date of Service June 17, 2024 Anesthesia Post Procedure Vital Signs Vital Signs: Temp Pulse Pulse Resp BP BP Pulse Ox 06/17/24 12:00 84 22 100 06/17/24 11:31 36.4 C L 85 17 107/69 91 06/17/24 09:30 90 140/90 06/17/24 08:58 16 98 06/17/24 08:50 36.6 C 94 H 12 140/93 98 06/17/24 08:06 84 13 89/59 L 98 06/17/24 08:01 85 113/76 06/17/24 07:28 145 H 25 H 116/83 99 06/17/24 07:23 36.4 C L 144 H 24 138/95 98 06/17/24 06:55 06/17/24 03:15 37.0 C 143 H 16 110/78 97 06/16/24 23:22 36.8 C 138 H 16 132/89 94 06/16/24 23:00 143 H 06/16/24 20:24 148 H 17 94 06/16/24 19:30 06/16/24 19:13 36.5 C 150 H 20 123/83 94 06/16/24 14:30 36.7 C 144 H 18 109/72 96 O2 Del Method O2 Flow Rate 06/17/24 12:00 Nasal Cannula 7 06/17/24 11:31 Nasal Cannula 2.0 06/17/24 09:30 06/17/24 08:58 Nasal Cannula 3 06/17/24 08:50 Nasal Cannula 2 06/17/24 08:06 Oxymask 06/17/24 08:01 06/17/24 07:28 Nasal Cannula 3 06/17/24 07:23 Nasal Cannula 3 06/17/24 06:55 Nasal Cannula 2 06/17/24 03:15 Nasal Cannula 2 06/16/24 23:22 Nasal Cannula 2 06/16/24 23:00 06/16/24 20:24 Nasal Cannula 3 06/16/24 19:30 Nasal Cannula 2 06/16/24 19:13 Nasal Cannula 2 06/16/24 14:30 Nasal Cannula 2.0 Transfer of Care Handoff Completed per policy Notes Mental Status: alert / awake / arousable and participated in evaluation Patient Amnestic to Procedure: Yes Nausea / Vomiting: adequately controlled Pain: adequately controlled Airway Patency, RR, SpO2: stable & adequate BP & HR: stable & adequate Hydration State: stable & adequate Anesthetic Complications: no major complications apparent and Pt Satisfied with anesthetic care
--- NOTE | 2024-06-17 12:40 | XRay Report ---
XR chest 1V portable CLINICAL HISTORY: Dyspnea. COMPARISON STUDY: Chest CT June 10, 2024. Chest radiograph June 14, 2024. FINDINGS: There is no pneumothorax. Small bilateral pleural effusions are again noted. Pulmonary dejon a has developed. Patchy bilateral airspace opacities are present. Cardiomediastinal silhouette is sta ble. IMPRESSION: 1. Interval development of pulmonary edema. No significant change in small bilateral pleural effusion s. 2. Patchy bilateral airspace opacities which could reflect alveolar pulmonary edema or superimposed p neumonia. ACT 112: Negative or not required by law. Electronically signed by: Johnnie Hdz M.D. 06/17/2024 12:39 PM
[2024-06-17] MEDS: FUROSEMIDE INJ 20 MG/2 ML VIAL IV ONE ×3 (13:38→22:06)
[2024-06-17] MEDS: methylPREDNISolone 20 MG in SYRINGE 0 ML IV ONE (13:38)
--- NOTE | 2024-06-17 16:44 | Hospitalist Progress Note ---
Date of Service June 17, 2024 Assessment & Plan (1) Tachycardia: Plan: Ms. 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 As per prior provider: -Family reports that patient has experienced episodic tremors and cramps; however, there is no clear factor contributing. Events do not seem to be correlated to bronchodilators, as the episodes even occur in the middle of the night awakening patient from sleep, many hours from treatments. -There is no sign of infectious process. UA is clean from admission. There are changes in bases of lungs, but these same changes are reflected in ct report from 2020--patient is on stable oxygen at this time. Patient does not have cough, fevers, or other infectious signs, more so oxygen requirements are stable. Procal is 0.06. Therefore will refrain from starting antibiotics at this time given no sign of infection -Question of myositis/inflammatory myopathy given proximal cramping and tremors, mildly ck elevation and esr/crp. ELISA panel, ldh and aldolase ordered. Statin discontinued. Contacted Rheumatology who did not feel this was the case. St eroids deferred. Acute kidney injury Hypokalemia Replete electrolytes as needed Resume home diuretics as able Renal function stable Received IV fluids Monitor renal function Renal function back to baseline Shaking, intermittent generalized tremors DD: Medication induced, rheumatological/endocrinological cause/cardiac arrhythmias Leg cramps--resolved Iron deficiency--started on iron supplement ESR 61, CRP 12.21 and CK 204 Unclear etiology at this time Prior hospitalist discussed with neurology:Could be frontal lobe discharges, therefore obtain EEG --EEG pending Hold statin for now due to elevated CK Prior hospitalist discussed with rheumatology Dr Perkins: less likely an inflammatory myopathy, inflammatory markers likely related to ongoing lung process Rheumatological workup not contributory Catecholamines workup pending May need follow-up with neurology as outpatient Perforomist held as recommended by cardiology Currently has not been having shakiness episodes Paroxysmal atrial flutter with rapid ventricular response Elevated troponin likely demand iso HTN, also elevated CK Had echo on 05/27/2024 which showed EF of 60 to 64% and grade 1 diastolic CHF. She also had Zio patch as outpatient as she was having quivering sensations and funny feeling in the chest which showed episodes of SVT possible atrial tachycardia with variable block Recent TSH mildly elevated, normal free T4 Respiratory bio fire negative --S/P cardioversion on 06/17/2024 Not a candidate for amiodarone given interstitial lung disease Avoid diltiazem due to hypotension Continue sotalol 80 mg twice a day On IV heparin for anticoagulation plan to transition to Eliquis tonight>> Needs follow-up with cardiology on discharge Pulmonary edema Hypoxia secondary to above Noted after cardioversion earlier today Received IV Lasix Monitor volume status, I's and O's closely Will repeat chest x-ray tomorrow Supplemental oxygen as needed Also given a dose of IV Solu-Medrol given patient wheezing Abnormal CT lungs with scattered tree-bud opacities, but no cough, resp symptoms, fevers leukocytosis potentially in response to tremulous events Procal 0.06 Follow-up as outpatient Transient fever Leukocytosis No clear infectious source Blood cultures no growth to date Empirically started on IV Zosyn Monitor Erythematous rash on back Likely contact dermatitis started on topical Hydrocortisone cream On antibiotics as above Monitor Rash improving Hypertension Continue sotalol Monitor blood pressure Hypothyroidism Mildly elevated TSH, normal free T4 Continue levothyroxine Chronic respiratory failure with hypoxia on 2 L oxygen COPD Interstitial lung disease Asthma Continue home inhalers May need follow-up with stogie packer on discharge for medication adjustments as needed Chronic diastolic CHF Resume home diuretics as able Monitor volume status closely GERD On Protonix History of breast cancer S/p lumpectomy and radiation treatment General anxiety disorder On Klonopin as needed DVT prophylaxis IV heparin>>Eliquis CODE STATUS Full code Disposition PT OT prior to discharge Admission and Anticipated Discharge Date Admission Date: June 09, 2024 Subjective Patient is seen and examined at bedside Patient is poor historian Patient had successful cardioversion this morning Also had video swallow study bilaterally Discussed with patient's family today Reports some dyspnea noted to be hypoxic Chest x-ray suggestive of fluid overload Denies any chest pain, dizziness, nausea, vomiting, abdominal pain Review of Systems Review of Systems: All systems reviewed & are unremarkable except as noted in Subjective Physical Exam Physical Exam: Physical Exam: Vitals signs as noted above General Appearance:Moderately built and nourished, no apparent distress Head: normocephalic, Atraumatic Eyes: normal inspection, EOMI Neck: supple, Trachea midline Respiratory/Chest: Decreased breath sounds, B/L wheezing, crackles, No accessory muscle use Cardiovascular:S1, S2, No murmur Abdomen/GI:Soft, Non tender, Bowel sounds present Extremities/Musculoskeletal:normal inspection, 1+ edema Neurologic/Psych:AAO, grossly no focal neurological deficits Skin: normal color, warm Results & Data Results & Data Vital Signs (Past 12 Hours) Vital Signs Temp Pulse Pulse Resp BP BP Pulse Ox 06/17/24 15:44 36.9 C 93 H 22 151/90 H 100 06/17/24 13:46 140/81 06/17/24 12:00 84 22 100 06/17/24 11:31 36.4 C L 85 17 107/69 91 06/17/24 09:30 90 140/90 06/17/24 08:58 16 98 06/17/24 08:50 36.6 C 94 H 12 140/93 98 06/17/24 08:06 84 13 89/59 L 98 06/17/24 08:01 85 113/76 06/17/24 07:28 145 H 25 H 116/83 99 06/17/24 07:23 36.4 C L 144 H 24 138/95 98 06/17/24 06:55 O2 Del Method O2 Flow Rate 06/17/24 15:44 Nasal Cannula 10.0 06/17/24 13:46 06/17/24 12:00 Nasal Cannula 7 06/17/24 11:31 Nasal Cannula 2.0 06/17/24 09:30 06/17/24 08:58 Nasal Cannula 3 06/17/24 08:50 Nasal Cannula 2 06/17/24 08:06 Oxymask 06/17/24 08:01 06/17/24 07:28 Nasal Cannula 3 06/17/24 07:23 Nasal Cannula 3 06/17/24 06:55 Nasal Cannula 2 Laboratory Results Short CBC 06/17/24 Range/Units 05:32 WBC 11.31 H (4.8-10.8) K/ul Hgb 11.6 L (12.0-16.0) g/dl Hct 36.4 L (37.0-47.0) % Plt Count 158 (130-400) K/uL BMP 06/17/24 05:28 Sodium 138 Potassium 4.4 Chloride 97 L Carbon Dioxide 36 H BUN 38 H Creatinine 0.95 Glucose 127 H Calcium 8.8
[2024-06-17] MEDS ORDERED: FUROSEMIDE INJ 20 MG/2 ML VIAL IV ONE (18:30)
[2024-06-17] MEDS: APIXABAN 5 MG TABLET PO SCH (20:05)
[2024-06-18 06:27] LABS: Hematocrit (blood only) 37.5 % (37.0-47.0); Mean Corpuscular Hemoglobin 28.6 pg (25.0-34.0); Mean Corpuscular Volume 89.5 fL (80.0-100.0); Platelet Count 409 K/uL (130-400); RDW Coefficient of Variation 13.3 % (11.5-14.5); RDW Standard Deviation 43.8 fL (36.4-46.3); Red Blood Count 4.19 M/uL (4.20-5.40); White Blood Count 11.76 K/ul (4.8-10.8)
[2024-06-18 06:38] LABS: BUN Creatinine Ratio 33.9 (10-20); Calcium 8.6 mg/dl (8.6-10.3); Creatinine Clr Calc Pharmacy 29.1 ml/min; Potassium 4.3 mmol/L (3.5-5.1)
--- NOTE | 2024-06-18 07:55 | XRay Report ---
EXAM: XR chest 1V portable CLINICAL HISTORY: HYPOXIA BEST IMAGE POSSIBLE KAB KFK TECHNIQUE: An X-ray image of the chest is obtained in frontal projection. COMPARISON: 06/14/2024. FINDINGS: Bilateral pleural effusion with underlying bilateral lung basal atelectasis/infiltrates. Prominence of bronchovascular markings noted bilaterally (unchanged). The cardiac size is normal. Aortic atheromatous calcification. No acute osseous abnormality. Osteopenia. Soft tissues overlying the chest wall are unremarkable. IMPRESSION: Bilateral pleural effusion with underlying bilateral lung basal atelectasis/infiltrates. There is an interval mild increase in the amount of the pleural effusion. Prominence of bronchovascular markings noted bilaterally (unchanged). Osteopenia. Electronically signed by Lashay Jose 06-18-2024 07:54 AM
[2024-06-18] MEDS: FUROSEMIDE INJ 20 MG/2 ML VIAL IV ONE (10:38)
--- NOTE | 2024-06-18 15:48 | Hospitalist Progress Note ---
Date of Service June 18, 2024 Assessment & Plan (1) Tachycardia: Plan: Ms. 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 As per prior provider: -Family reports that patient has experienced episodic tremors and cramps; however, there is no clear factor contributing. Events do not seem to be correlated to bronchodilators, as the episodes even occur in the middle of the night awakening patient from sleep, many hours from treatments. -There is no sign of infectious process. UA is clean from admission. There are changes in bases of lungs, but these same changes are reflected in ct report from 2020--patient is on stable oxygen at this time. Patient does not have cough, fevers, or other infectious signs, more so oxygen requirements are stable. Procal is 0.06. Therefore will refrain from starting antibiotics at this time given no sign of infection -Question of myositis/inflammatory myopathy given proximal cramping and tremors, mildly ck elevation and esr/crp. ELISA panel, ldh and aldolase ordered. Statin discontinued. Contacted Rheumatology who did not feel this was the case. St eroids deferred. Acute kidney injury Hypokalemia Replete electrolytes as needed Resume home diuretics as able Renal function stable Received IV fluids Monitor renal function Creatinine 1.2 today Shaking, intermittent generalized tremors DD: Medication induced, rheumatological/endocrinological cause/cardiac arrhythmias Leg cramps--resolved Iron deficiency--started on iron supplement ESR 61, CRP 12.21 and CK 204 Unclear etiology at this time Prior hospitalist discussed with neurology:Could be frontal lobe discharges, therefore obtain EEG --EEG pending Hold statin for now due to elevated CK Prior hospitalist discussed with rheumatology Dr Perkins: less likely an inflammatory myopathy, inflammatory markers likely related to ongoing lung process Rheumatological workup not contributory Catecholamines workup pending May need follow-up with neurology as outpatient Perforomist held as recommended by cardiology Currently has not been having shakiness episodes Paroxysmal atrial flutter with rapid ventricular response Elevated troponin likely demand iso HTN, also elevated CK Had echo on 05/27/2024 which showed EF of 60 to 64% and grade 1 diastolic CHF. She also had Zio patch as outpatient as she was having quivering sensations and funny feeling in the chest which showed episodes of SVT possible atrial tachycardia with variable block Recent TSH mildly elevated, normal free T4 Respiratory bio fire negative --S/P cardioversion on 06/17/2024 Not a candidate for amiodarone given interstitial lung disease Avoid diltiazem due to hypotension Continue sotalol 80 mg twice a day On IV heparin for anticoagulation plan to transitioned to Eliquis Needs follow-up with cardiology on discharge Remains in sinus Continue current medications Pulmonary edema Hypoxia secondary to above Noted after cardioversion Received IV Lasix Monitor volume status, I's and O's closely Less supplemental oxygen requirement today. Wean off of oxygen as able Will give additional IV Lasix today Monitor renal function Repeat chest x-ray tomorrow Abnormal CT lungs with scattered tree-bud opacities, but no cough, resp symptoms, fevers leukocytosis potentially in response to tremulous events Procal 0.06 Follow-up as outpatient Transient fever Leukocytosis No clear infectious source Blood cultures no growth to date Empirically on IV Zosyn Monitor Erythematous rash on back Likely contact dermatitis started on topical Hydrocortisone cream On antibiotics as above Monitor Rash improving Hypertension Continue sotalol Monitor blood pressure Hypothyroidism Mildly elevated TSH, normal free T4 Continue levothyroxine Chronic respiratory failure with hypoxia on 2 L oxygen COPD Interstitial lung disease Asthma Continue home inhalers May need follow-up with campus recruiting internship on discharge for medication adjustments as needed Chronic diastolic CHF Resume home diuretics as able Monitor volume status closely GERD On Protonix History of breast cancer S/p lumpectomy and radiation treatment General anxiety disorder On Klonopin as needed DVT prophylaxis IV heparin>>Eliquis CODE STATUS Full code Disposition PT OT prior to discharge Admission and Anticipated Discharge Date Admission Date: June 09, 2024 Subjective Patient is seen and examined at bedside Patient is poor historian States feeling better today Less supplemental oxygen requirement today Discussed with patient's family at bedside Denies any chest pain, dizziness, nausea, vomiting, abdominal pain Review of Systems Review of Systems: All systems reviewed & are unremarkable except as noted in Subjective Physical Exam Physical Exam: Physical Exam: Vitals signs as noted above General Appearance:Moderately built and nourished, no apparent distress Head: normocephalic, Atraumatic Eyes: normal inspection, EOMI Neck: supple, Trachea midline Respiratory/Chest: Decreased breath sounds, CTA, No accessory muscle use Cardiovascular:S1, S2, No murmur Abdomen/GI:Soft, Non tender, Bowel sounds present Extremities/Musculoskeletal:normal inspection, 1+ edema Neurologic/Psych:AAO, grossly no focal neurological deficits Skin: normal color, warm Results & Data Results & Data Vital Signs (Past 12 Hours) Vital Signs Temp Pulse Pulse Resp BP Pulse Ox O2 Del Method 06/18/24 14:00 83 06/18/24 11:32 36.4 C L 70 16 128/81 97 Nasal Cannula 06/18/24 08:40 36.4 C L 78 16 109/73 92 Nasal Cannula 06/18/24 08:30 Nasal Cannula 06/18/24 07:17 15 93 Nasal Cannula 06/18/24 04:55 92 H O2 Flow Rate 06/18/24 14:00 06/18/24 11:32 2 06/18/24 08:40 2 06/18/24 08:30 2 06/18/24 07:17 2 06/18/24 04:55 Laboratory Results Short CBC 06/18/24 Range/Units 05:56 WBC 11.76 H (4.8-10.8) K/ul Hgb 12.0 (12.0-16.0) g/dl Hct 37.5 (37.0-47.0) % Plt Count 409 H D (130-400) K/uL BMP 06/18/24 05:56 Sodium 141 Potassium 4.3 Chloride 90 L Carbon Dioxide 42 H* BUN 42 H Creatinine 1.24 H Glucose 240 H Calcium 8.6
--- NOTE | 2024-06-18 16:32 | Cardiology Progress Note ---
Date of Service June 18, 2024 Assessment & Plan (1) Pneumonia: (2) Interstitial lung disease: (3) Atrial flutter with rapid ventricular response: Plan -increase sotalol to 120 mg by mouth two times per day -Repeat EKG am of 06/19/24. -Continue Eliquis -Oral furosemide on hold with noted elevated CO2 on chemistry panel. Admission and Anticipated Discharge Date Admission Date: June 09, 2024 Subjective Patient seen in follow up. in room as well as clinical nursing assistant for 1:1 supervision. Sitting upright in chair. Telemetry reveals SR in the 90s with occasional PACs. No subjective complaints. Interview limited due to patient's dementia. Physical Exam Constitutional: no acute distress (chronically ill in appearance ) Eyes: PERRL, conjunctivae normal, anicteric sclerae Respiratory: Auscultation: + diminished lung sounds; no wheezes Cardiovascular: RRR, no murmur, no edema Gastrointestinal (Abdomen): normal bowel sounds, soft, nontender, no hepatosplenomegaly Neurologic: cognitive impairment, no focal deficits Results & Data Vital Signs (Past 12 Hours) Vital Signs Temp Pulse Pulse Resp BP Pulse Ox O2 Del Method 06/18/24 16:22 36.5 C 80 16 137/81 95 Nasal Cannula 06/18/24 14:00 83 06/18/24 11:32 36.4 C L 70 16 128/81 97 Nasal Cannula 06/18/24 08:40 36.4 C L 78 16 109/73 92 Nasal Cannula 06/18/24 08:30 Nasal Cannula 06/18/24 07:17 15 93 Nasal Cannula 06/18/24 07:00 78 06/18/24 04:55 92 H O2 Flow Rate 06/18/24 16:22 2 06/18/24 14:00 06/18/24 11:32 2 06/18/24 08:40 2 06/18/24 08:30 2 06/18/24 07:17 2 06/18/24 07:00 06/18/24 04:55 (1) Pneumonia Laterality: bilateral Lung location: lower lobe of lung Pneumonia type: due to unspecified organism Qualified Code(s): J18.9 - Pneumonia, unspecified organism
[2024-06-18 18:57] LABS: Catech Norepinephrine 839 pg/mL; Catech Total, Plasma 900 pg/mL
[2024-06-18] MEDS: SOTALOL HCL 80 MG TAB PO SCH (21:07)
--- NOTE | 2024-06-19 01:34 | Communication Note ---
Date of Service: June 19, 2024 Patient more disoriented tonight and at risk for falling. Zyprexa as needed agitation not amenable to behavioral management. Hold parameters for patient's neuropsychotropic medications for sedation confusion.
[2024-06-19] MEDS: OLANZapine 10 MG/2.1 ML SDV IM STA (01:48)
[2024-06-19] MEDS: ALBUMIN 25% 25 GM/100 ML VIAL IV ONE (02:18)
[2024-06-19 06:05] LABS: Hematocrit (blood only) 34.9 % (37.0-47.0); Hemoglobin 11.2 g/dl (12.0-16.0); Mean Corpuscular Hemoglobin 28.6 pg (25.0-34.0); Mean Corpuscular Hgb Conc 32.1 g/dL (32.0-36.0); Mean Platelet Volume 9.8 fL (9.4-12.4); Platelet Count 395 K/uL (130-400); RDW Coefficient of Variation 13.2 % (11.5-14.5); RDW Standard Deviation 43.2 fL (36.4-46.3); Red Blood Count 3.92 M/uL (4.20-5.40); White Blood Count 13.32 K/ul (4.8-10.8)
[2024-06-19 06:37] LABS: BUN Creatinine Ratio 37.9 (10-20); Magnesium 2.2 mg/dl (1.7-2.4); Potassium 3.6 mmol/L (3.5-5.1)
[2024-06-19 07:40] LABS: HCO3 VBG 45 mmol/L; Oxygen Saturation VBG 92.2 %; PCO2 VBG 74 mmHg (38-50); PO2 VBG 68 mmHg; pH VBG 7.39 (7.36-7.41)
--- NOTE | 2024-06-19 07:42 | XRay Report ---
EXAM: XR chest 1V portable CLINICAL HISTORY: PULM EDEMA LDS TECHNIQUE: X-ray image of the chest obtained in 1 frontal projection. COMPARISON: Prior X-ray dated 06/18/2024 for comparison. FINDINGS: Pulmonary Parenchyma: Unchanged bilateral pleural effusion and haziness in basal lung zones. Unchanged prominent bilateral parahilar markings. Heart and Mediastinum: Heart size and shape are normal. Aortic knuckle calcification. No mediastinal widening or masses. No hilar or mediastinal lymphadenopathy. Bony Thorax: Spondylotic changes in thoracic spine. Bony thorax appears intact without fractures or deformities. Soft Tissues: Soft tissues overlying the chest wall are unremarkable. IMPRESSION: 1. Unchanged bilateral pleural effusion and haziness in basal lung zones. 2. Unchanged prominent bilateral parahilar markings. 3. No significant interval change. Electronically signed by Lashay Jose 06-19-2024 07:42 AM
[2024-06-19 08:08] LABS: Creatinine, Random Urine 16 mg/dL (20-275); Total Metanephrine 1381 mcg/g cr (149-603)
[2024-06-19] MEDS: OLANZapine 10 MG/2.1 ML SDV IM PRN (08:52)
--- NOTE | 2024-06-19 12:57 | Hospitalist Progress Note ---
Date of Service June 19, 2024 Assessment & Plan (1) Atrial flutter with rapid ventricular response: Plan: Heart rate is controlled, continue with sotalol which is now at 120 mg twice daily, continue with Eliquis 5 mg twice daily. A YELITZA prior to cardioversion did not show any evidence of thrombus. (2) Leg cramping: Plan: This has resolved, clinically stable (3) Interstitial lung disease: Plan: Clinically stable, continue with home oxygen, for mitral, Pulmicort. (4) Hypothyroidism (acquired): Plan: Continue with Synthroid 125 mcg daily. (5) Hyperlipidemia: Plan: Continue with Crestor 20 mg daily. Plan Continue monitoring, at this point clinically stable, awaiting placement, likely tomorrow. Admission and Anticipated Discharge Date Admission Date: June 09, 2024 Subjective Patient is an 83-year-old female with history of hypothyroidism, hyperlipidemia, Hurthle cell adenoma of the thyroid, chronic respiratory failure on 2 L of oxygen, interstitial lung disease, chronic diastolic CHF and neurocognitive impairment, patient was brought to the hospital apparently because of noticing some tremors and cramps. Patient was found to have some level of acute kidney injury for which patient was placed on IV fluid and stabilized, patient was also found to have atrial flutter for which underwent cardioversion and converted to sinus rhythm. Patient was seen by cardiology and she is overall stable at this point. Thereafter patient was seen by physical therapy and plan for rehab placement. Patient was seen and examined, clinically stable, discussed with nursing staff as well, thereafter I spoke to case management, at this point were thinking that possibly patient may be excepted tomorrow. Physical Exam Physical Exam: VITALS: Reviewed. WEIGHT/BMI reviewed. GEN: Quiet and withdrawn NECK: Supple, with no masses. CV: RRR, no m/r/g. LUNGS: CTAB, no w/r/c. ABD: Soft, NT/ND, NBS, no masses or organomegaly. Results & Data Results & Data Vital Signs (Past 12 Hours) Vital Signs Temp Pulse Resp BP Pulse Ox O2 Del Method O2 Flow Rate 06/19/24 11:26 36.6 C 82 17 91/65 L 90 Nasal Cannula 3 06/19/24 08:19 36.6 C 92 H 16 165/95 H 94 Nasal Cannula 2 06/19/24 08:00 Nasal Cannula 2 06/19/24 07:33 73 18 93 Nasal Cannula 2 06/19/24 02:35 36.7 C 79 20 140/76 98 Nasal Cannula 2 Laboratory Results Laboratory Results - last 24 hr 06/12/24 06/14/24 06/19/24 08:16 03:15 05:42 WBC 13.32 H RBC 3.92 L Hgb 11.2 L Hct 34.9 L MCV 89.0 MCH 28.6 MCHC 32.1 RDW Std Deviation 43.2 RDW Coeff of Neena 13.2 Plt Count 395 MPV 9.8 VBG pH VBG pCO2 VBG pO2 VBG HCO3 VBG O2 Saturation VBG Base Excess Sodium 144 Potassium 3.6 Chloride 92 L Carbon Dioxide 44 H* Anion Gap 8 BUN 36 H Creatinine 0.95 Est Cr Clr Drug Dosing 38.0 eGFR 60.19 BUN/Creatinine Ratio 37.9 H Glucose 124 H Calcium 9.0 Magnesium 2.2 Dopamine 44 H Epinephrine 17 Norepinephrine 839 Total Catecholamines 900 Ur [place] Metanephrines 101 U Normetanephrine 1280 H U Total Metanephrines 1381 H Urine Creatinine 16 L 06/19/24 07:32 WBC RBC Hgb Hct MCV MCH MCHC RDW Std Deviation RDW Coeff of Neena Plt Count MPV VBG pH 7.39 VBG pCO2 74 H VBG pO2 68 VBG HCO3 45 VBG O2 Saturation 92.2 VBG Base Excess 16.0 Sodium Potassium Chloride Carbon Dioxide Anion Gap BUN Creatinine Est Cr Clr Drug Dosing eGFR BUN/Creatinine Ratio Glucose Calcium Magnesium Dopamine Epinephrine Norepinephrine Total Catecholamines Ur [place] Metanephrines U Normetanephrine U Total Metanephrines Urine Creatinine Diagnostic Findings Chest X-Ray 06/19/24 07:00 EXAM: XR chest 1V portable CLINICAL HISTORY: PULM EDEMA LDS TECHNIQUE: X-ray image of the chest obtained in 1 frontal projection. COMPARISON: Prior X-ray dated 06/18/2024 for comparison. FINDINGS: Pulmonary Parenchyma: Unchanged bilateral pleural effusion and haziness in basal lung zones. Unchanged prominent bilateral parahilar markings. Heart and Mediastinum: Heart size and shape are normal. Aortic knuckle calcification. No mediastinal widening or masses. No hilar or mediastinal lymphadenopathy. Bony Thorax: Spondylotic changes in thoracic spine. Bony thorax appears intact without fractures or deformities. Soft Tissues: Soft tissues overlying the chest wall are unremarkable. IMPRESSION: 1. Unchanged bilateral pleural effusion and haziness in basal lung zones. 2. Unchanged prominent bilateral parahilar markings. 3. No significant interval change. Electronically signed by Lashay Jose 06-19-2024 07:42 AM Medications Administered Current Inpatient Medications Acetaminophen (Acetaminophen 325 Mg Tab) 650 mg PO Q4H PRN PRN Reason: Pain or Fever Stop: 07/09/24 23:44 Last Admin: 06/14/24 20:22 Dose: 650 mg Amitriptyline HCl (Amitriptyline Hcl 25 Mg Tab) 25 mg PO HS [facility] Stop: 07/09/24 23:44 Last Admin: 06/18/24 21:06 Dose: 25 mg Apixaban (Apixaban 5 Mg Tablet) 5 mg PO BID [facility] Stop: 07/17/24 20:59 Last Admin: 06/19/24 11:40 Dose: Not Given Budesonide (Budesonide 0.5 Mg/2 Ml Vial (Pulmicort)) 0.5 mg INH BIDR [facility] Stop: 07/09/24 23:44 Last Admin: 06/19/24 07:28 Dose: 0.5 mg Clonazepam (Clonazepam 0.5 Mg Tab) 0.25 mg PO Q6H PRN PRN Reason: Anxiety Stop: 07/09/24 23:44 Last Admin: 06/17/24 20:05 Dose: 0.25 mg Ferrous Sulfate (Ferrous Sulfate 325 Mg Tab) 325 mg PO QAM [facility] Stop: 07/12/24 08:59 Last Admin: 06/19/24 11:40 Dose: Not Given Formoterol Fumarate (Formoterol 20 Mcg/2 Ml Vial) 20 mcg INH BIDR [facility] Stop: 07/09/24 23:44 Last Admin: 06/13/24 07:31 Dose: 20 mcg Furosemide (Furosemide 20 Mg Tab) 20 mg PO BID@0900,1400 [facility] Stop: 07/13/24 08:59 Hydrocortisone (Hydrocortisone 2.5% Cr 30 Gm Tube) 1 appln EXT BID [facility] Stop: 07/15/24 09:29 Last Admin: 06/19/24 11:40 Dose: Not Given Piperacillin Sod/Tazobactam Sod (Zosyn) 4.5 gm in 100 mls @ 25 mls/hr IV Q8H [facility]; Protocol Stop: 06/20/24 17:59 Last Admin: 06/19/24 12:10 Dose: 250 mls/hr Levalbuterol HCl (Levalbuterol Tartrate 15 Gm Hfa.Aer.Ad) 2 puffs INH QID PRN PRN Reason: Shortness Of Breath Or Wheezin Stop: 07/09/24 23:44 Last Admin: 06/17/24 12:00 Dose: 2 puffs Levothyroxine Sodium (Levothyroxine Sodium 125 Mcg Tablet) 125 mcg PO DAILYBB [facility] Stop: 07/10/24 06:29 Last Admin: 06/19/24 06:28 Dose: 125 mcg Magnesium Oxide (Magnesium Oxide 400 Mg Tab) 400 mg PO QAM [facility] Stop: 07/12/24 08:59 Last Admin: 06/19/24 11:40 Dose: Not Given Nitroglycerin (Nitroglycerin Sl 0.4 Mg/Tab Tab) 0.4 mg SL Q5M PRN PRN Reason: Chest Pain Stop: 07/09/24 23:44 Olanzapine (Olanzapine 10 Mg/2.1 Ml Sdv) 2.5 mg IM Q4H PRN PRN Reason: Agitation Stop: 07/19/24 01:29 Last Admin: 06/19/24 08:52 Dose: 2.5 mg Pantoprazole Sodium (Pantoprazole 40 Mg Tab) 40 mg PO DAILY [facility] Stop: 07/10/24 08:59 Last Admin: 06/19/24 11:41 Dose: Not Given Polyethylene Glycol (Polyethylene (Miralax) 17 Gm Pack) 17 gm PO DAILY PRN PRN Reason: Constipation Stop: 07/09/24 23:44 Last Admin: 06/12/24 10:20 Dose: 17 gm Rosuvastatin Calcium (Rosuvastatin Calcium 20 Mg Tab) 20 mg PO DAILY [facility] Stop: 07/10/24 08:59 Last Admin: 06/10/24 08:53 Dose: 20 mg Sotalol HCl (Sotalol Hcl 80 Mg Tab) 120 mg PO BID [facility] Stop: 07/18/24 20:59 Last Admin: 06/19/24 11:41 Dose: Not Given (5) Hyperlipidemia Hyperlipidemia type: mixed hyperlipidemia Qualified Code(s): E78.2 - Mixed hyperlipidemia
--- NOTE | 2024-06-19 17:58 | Communication Note ---
Date of Service: June 19, 2024 Telemetry reviewed, sinus rhythm in the 80s with occasional premature atrial contractions. EKG performed this morning 06/19/2024 at 6:41 AM revealed sinus rhythm 89 bpm with occasional premature atrial contractions. The corrected QT interval was stable at 464 ms. Continue sotalol 120 mg p.o. twice daily with dose having been increased from 80 mg twice daily to 120 mg twice daily the evening of 06/18/2024
--- NOTE | 2024-06-19 21:45 | Electrocardiogram Report ---
Test Reason : Blood Pressure : */* mmHG Vent. Rate : 89 BPM Atrial Rate : 89 BPM P-R Int : 168 ms QRS Dur : 80 ms QT Int : 382 ms P-R-T Axes : 65 17 51 degrees QTcB Int : 464 ms Sinus rhythm with Premature atrial complexes Otherwise normal ECG When compared with ECG of 17-Jun-2024 08:27, Premature atrial complexes are now Present Confirmed by Wilder Cleary [id number] on 06/19/2024 9:45:05 PM Referred By: REFERRED SELF Confirmed By: Wilder Cleary
[2024-06-20 08:41] LABS: Creatinine Clr Calc Pharmacy 50.9 ml/min
[2024-06-20 12:30] VITALS: BP 137/82; RESP 18; TEMP 98.1; O2SAT 96
--- NOTE | 2024-06-20 14:56 | Electroencephalogram ---
EEG Procedure Note Date of Service June 11, 2024 Start / End Times Start Time: 1124 End Time: [address] Carmen Lin History An 83-year-old female with tremors and seizure-like activity. EEG performed for evaluation of epileptiform activity. Home Medication List Medication Instructions Recorded Confirmed Type albuterol sulfate 90 mcg/actuation 2 puff inhalation Q6H PRN 06/09/24 06/09/24 History aerosol inhaler (Ventolin HFA) Shortness Of Breath Or Wheezing amitriptyline 25 mg tablet 25 mg PO HS 06/09/24 06/09/24 History arformoterol 15 mcg/2 mL solution 15 mcg inhalation BID 06/09/24 06/09/24 History for nebulization budesonide 0.5 mg/2 mL suspension 0.5 mg inhalation BID 06/09/24 06/09/24 History for nebulization clonazepam 0.5 mg tablet 0.25 mg PO Q6H PRN Anxiety 06/09/24 06/09/24 History furosemide 40 mg tablet 40 mg PO UD 06/09/24 06/09/24 History levothyroxine 125 mcg tablet 125 mcg PO DAILY 06/09/24 06/09/24 History Inpatient Medication List Acetaminophen (Acetaminophen 325 Mg Tab) 650 mg PO Q4H PRN PRN Reason: Pain or Fever Stop: 07/09/24 23:44 Last Admin: 06/14/24 20:22 Dose: 650 mg Documented By: Admin: 06/14/24 03:33 Dose: 650 mg Documented By: Admin: 06/10/24 21:55 Dose: 650 mg Documented By: BEN Amitriptyline HCl (Amitriptyline Hcl 25 Mg Tab) 25 mg PO HS [facility] Stop: 07/09/24 23:44 Last Admin: 06/18/24 21:06 Dose: 25 mg Documented By: Admin: 06/17/24 20:06 Dose: 25 mg Documented By: Admin: 06/16/24 19:54 Dose: 25 mg Documented By: Admin: 06/15/24 20:02 Dose: 25 mg Documented By: Admin: 06/14/24 20:19 Dose: 25 mg Documented By: Admin: 06/13/24 20:48 Dose: 25 mg Documented By: Admin: 06/12/24 21:40 Dose: 25 mg Documented By: Admin: 06/11/24 21:13 Dose: 25 mg Documented By: Admin: 06/10/24 21:41 Dose: 25 mg Documented By: TLAn Admin: 06/10/24 01:15 Dose: 25 mg Documented By: BEN Apixaban (Apixaban 5 Mg Tablet) 5 mg PO BID MILY Stop: 07/17/24 20:59 Last Admin: 06/20/24 08:27 Dose: 5 mg Documented By: TOBING(2) Admin: 06/19/24 21:28 Dose: 5 mg Documented By: Admin: 06/19/24 11:40 Dose: Not Given Documented By: Admin: 06/18/24 21:09 Dose: 5 mg Documented By: Admin: 06/18/24 09:23 Dose: 5 mg Documented By: Admin: 06/17/24 20:05 Dose: 5 mg Documented By: MARIANA Budesonide (Budesonide 0.5 Mg/2 Ml Vial (Pulmicort)) 0.5 mg INH BIDR MILY Stop: 07/09/24 23:44 Last Admin: 06/20/24 07:28 Dose: 0.5 mg Documented By: Admin: 06/19/24 20:59 Dose: 0.5 mg Documented By: Admin: 06/19/24 07:28 Dose: 0.5 mg Documented By: Admin: 06/18/24 20:51 Dose: 0.5 mg Documented By: Admin: 06/18/24 07:17 Dose: 0.5 mg Documented By: Admin: 06/17/24 19:49 Dose: 0.5 mg Documented By: Admin: 06/17/24 07:17 Dose: Not Given Documented By: Admin: 06/16/24 20:23 Dose: 0.5 mg Documented By: Admin: 06/16/24 07:41 Dose: 0.5 mg Documented By: Admin: 06/15/24 20:27 Dose: 0.5 mg Documented By: Admin: 06/15/24 06:59 Dose: 0.5 mg Documented By: Admin: 06/14/24 18:56 Dose: 0.5 mg Documented By: Admin: 06/14/24 07:13 Dose: 0.5 mg Documented By: Admin: 06/13/24 20:16 Dose: 0.5 mg Documented By: EMRima Admin: 06/13/24 07:31 Dose: 0.5 mg Documented By: Admin: 06/12/24 17:54 Dose: 0.5 mg Documented By: ABMoe Admin: 06/12/24 07:20 Dose: 0.5 mg Documented By: Admin: 06/11/24 19:51 Dose: 0.5 mg Documented By: Admin: 06/11/24 07:02 Dose: 0.5 mg Documented By: Admin: 06/10/24 20:26 Dose: 0.5 mg Documented By: Admin: 06/10/24 07:02 Dose: 0.5 mg Documented By: Admin: 06/10/24 01:39 Dose: 0.5 mg Documented By: MAGUI Clonazepam (Clonazepam 0.5 Mg Tab) 0.25 mg PO Q6H PRN PRN Reason: Anxiety Stop: 07/09/24 23:44 Last Admin: 06/17/24 20:05 Dose: 0.25 mg Documented By: Admin: 06/17/24 01:18 Dose: 0.25 mg Documented By: Admin: 06/15/24 21:19 Dose: 0.25 mg Documented By: Admin: 06/14/24 20:22 Dose: 0.25 mg Documented By: Admin: 06/14/24 03:32 Dose: 0.25 mg Documented By: Admin: 06/13/24 14:58 Dose: 0.25 mg Documented By: Admin: 06/12/24 21:39 Dose: 0.25 mg Documented By: Admin: 06/11/24 21:16 Dose: 0.25 mg Documented By: Admin: 06/10/24 21:54 Dose: 0.25 mg Documented By: Admin: 06/10/24 14:32 Dose: 0.25 mg Documented By: JULIUS Ferrous Sulfate (Ferrous Sulfate 325 Mg Tab) 325 mg PO QAM MILY Stop: 07/12/24 08:59 Last Admin: 06/20/24 08:27 Dose: 325 mg Documented By: ROSALIND(2) Admin: 06/19/24 11:40 Dose: Not Given Documented By: Admin: 06/18/24 09:23 Dose: 325 mg Documented By: Admin: 06/17/24 10:00 Dose: 325 mg Documented By: Admin: 06/16/24 08:44 Dose: 325 mg Documented By: Admin: 06/15/24 09:15 Dose: 325 mg Documented By: Admin: 06/14/24 11:22 Dose: 325 mg Documented By: Admin: 06/13/24 09:31 Dose: 325 mg Documented By: Admin: 06/12/24 07:56 Dose: 325 mg Documented By: FAHAD Formoterol Fumarate (Formoterol 20 Mcg/2 Ml Vial) 20 mcg INH BIDR MILY Stop: 07/09/24 23:44 Last Admin: 06/13/24 07:31 Dose: 20 mcg Documented By: Admin: 06/12/24 17:53 Dose: 20 mcg Documented By: Admin: 06/12/24 07:20 Dose: 20 mcg Documented By: Admin: 06/11/24 19:51 Dose: 20 mcg Documented By: Admin: 06/11/24 07:02 Dose: 20 mcg Documented By: Admin: 06/10/24 20:26 Dose: 20 mcg Documented By: Admin: 06/10/24 07:02 Dose: 20 mcg Documented By: Admin: 06/10/24 01:39 Dose: 20 mcg Documented By: MAGUI Hydrocortisone (Hydrocortisone 2.5% Cr 30 Gm Tube) 1 appln EXT BID MILY Stop: 07/15/24 09:29 Last Admin: 06/20/24 08:27 Dose: 1 appln Documented By: ESG(2) Admin: 06/19/24 21:29 Dose: 1 appln Documented By: Admin: 06/19/24 11:40 Dose: Not Given Documented By: Admin: 06/18/24 21:07 Dose: 1 appln Documented By: Admin: 06/18/24 09:23 Dose: 1 appln Documented By: Admin: 06/17/24 20:07 Dose: 1 appln Documented By: AKElen Admin: 06/17/24 10:00 Dose: 1 appln Documented By: Admin: 06/16/24 19:54 Dose: 1 appln Documented By: Admin: 06/16/24 08:44 Dose: 1 appln Documented By: Admin: 06/15/24 20:02 Dose: 1 appln Documented By: Admin: 06/15/24 15:02 Dose: 1 appln Documented By: ANGELES Levalbuterol HCl (Levalbuterol Tartrate 15 Gm Hfa.Aer.Ad) 2 puffs INH QID PRN PRN Reason: Shortness Of Breath Or Wheezin Stop: 07/09/24 23:44 Last Admin: 06/17/24 12:00 Dose: 2 puffs Documented By: EMRima(2) Admin: 06/17/24 08:57 Dose: 2 puffs Documented By: Admin: 06/15/24 07:07 Dose: 2 puffs Documented By: PHOEBE Levothyroxine Sodium (Levothyroxine Sodium 125 Mcg Tablet) 125 mcg PO DAILYBB [facility] Stop: 07/10/24 06:29 Last Admin: 06/20/24 03:42 Dose: 125 mcg Documented By: SKElyse Admin: 06/19/24 06:28 Dose: 125 mcg Documented By: Admin: 06/18/24 05:07 Dose: 125 mcg Documented By: Admin: 06/17/24 10:00 Dose: 125 mcg Documented By: Admin: 06/16/24 05:48 Dose: 125 mcg Documented By: Admin: 06/15/24 05:47 Dose: 125 mcg Documented By: Admin: 06/14/24 06:26 Dose: 125 mcg Documented By: Admin: 06/13/24 05:47 Dose: 125 mcg Documented By: Admin: 06/12/24 06:23 Dose: 125 mcg Documented By: Admin: 06/11/24 06:12 Dose: 125 mcg Documented By: Admin: 06/10/24 06:54 Dose: 125 mcg Documented By: BEN Magnesium Oxide (Magnesium Oxide 400 Mg Tab) 400 mg PO QAM [facility] Stop: 07/12/24 08:59 Last Admin: 06/20/24 08:27 Dose: 400 mg Documented By: ESG(2) Admin: 06/19/24 11:40 Dose: Not Given Documented By: Admin: 06/18/24 09:23 Dose: 400 mg Documented By: Admin: 06/17/24 10:00 Dose: 400 mg Documented By: Admin: 06/16/24 08:44 Dose: 400 mg Documented By: Admin: 06/15/24 09:15 Dose: 400 mg Documented By: Admin: 06/14/24 11:22 Dose: 400 mg Documented By: Admin: 06/13/24 09:31 Dose: 400 mg Documented By: Admin: 06/12/24 07:55 Dose: 400 mg Documented By: FAHAD Olanzapine (Olanzapine 10 Mg/2.1 Ml Sdv) 2.5 mg IM Q4H PRN PRN Reason: Agitation Stop: 07/19/24 01:29 Last Admin: 06/19/24 14:07 Dose: 2.5 mg Documented By: Admin: 06/19/24 08:52 Dose: 2.5 mg Documented By: BENITEZ Pantoprazole Sodium (Pantoprazole 40 Mg Tab) 40 mg PO DAILY MILY Stop: 07/10/24 08:59 Last Admin: 06/20/24 08:27 Dose: 40 mg Documented By: TOBING(2) Admin: 06/19/24 11:41 Dose: Not Given Documented By: Admin: 06/18/24 09:23 Dose: 40 mg Documented By: Admin: 06/17/24 10:00 Dose: 40 mg Documented By: Admin: 06/16/24 08:44 Dose: 40 mg Documented By: Admin: 06/15/24 09:15 Dose: 40 mg Documented By: Admin: 06/14/24 11:22 Dose: 40 mg Documented By: Admin: 06/13/24 09:31 Dose: 40 mg Documented By: Admin: 06/12/24 07:55 Dose: 40 mg Documented By: Admin: 06/11/24 07:49 Dose: 40 mg Documented By: Admin: 06/10/24 08:53 Dose: 40 mg Documented By: JULIUS Polyethylene Glycol (Polyethylene (Miralax) 17 Gm Pack) 17 gm PO DAILY PRN PRN Reason: Constipation Stop: 07/09/24 23:44 Last Admin: 06/12/24 10:20 Dose: 17 gm Documented By: FAHAD Rosuvastatin Calcium (Rosuvastatin Calcium 20 Mg Tab) 20 mg PO DAILY MILY Stop: 07/10/24 08:59 Last Admin: 06/10/24 08:53 Dose: 20 mg Documented By: BT Sotalol HCl (Sotalol Hcl 80 Mg Tab) 120 mg PO BID MILY Stop: 07/18/24 20:59 Last Admin: 06/20/24 08:26 Dose: 120 mg Documented By: TOBING(2) Admin: 06/19/24 21:28 Dose: 120 mg Documented By: SKElyse Admin: 06/19/24 11:41 Dose: Not Given Documented By: Admin: 06/18/24 21:07 Dose: 120 mg Documented By: CTA Discontinued Medications Benzocaine/Butamben/Tetracaine HCl (Benzocaine/Tetracain/Butam 50 Appln/5 Gm Can) Confirm Administered Dose 50 appln EXT .STK-MED ONE Stop: 06/17/24 07:23 Last Admin: 06/17/24 09:29 Dose: Not Given Documented By: ANGELES Clonazepam (Clonazepam 0.5 Mg Tab) 0.25 mg PO NOW STA Stop: 06/09/24 21:01 Last Admin: 06/09/24 21:30 Dose: 0.25 mg Documented By: JANET Diltiazem HCl (Diltiazem Hcl 5 Mg/Ml 5 Ml Vial) 10 mg IV NOW STA Stop: 06/13/24 22:28 Last Admin: 06/13/24 22:37 Dose: 10 mg Documented By: JOVITA Co-signed By: LMP Diltiazem HCl (Diltiazem Hcl 5 Mg/Ml 5 Ml Vial) 5 mg IV NOW STA Stop: 06/13/24 22:47 Last Admin: 06/13/24 22:55 Dose: 5 mg Documented By: JOVITA Co-signed By: LMP Diltiazem HCl (Diltiazem Hcl 5 Mg/Ml 5 Ml Vial) 5 mg IV NOW ONE Stop: 06/15/24 13:57 Last Admin: 06/15/24 15:10 Dose: 5 mg Documented By: ANGELES Co-signed By: Furosemide (Furosemide 40 Mg Tab) 40 mg PO BID@0900,1400 MILY Stop: 07/10/24 08:59 Last Admin: 06/10/24 14:20 Dose: 40 mg Documented By: Admin: 06/10/24 08:53 Dose: 40 mg Documented By: BT Furosemide (Furosemide Inj 20 Mg/2 Ml Vial) 20 mg IV ONE ONE Stop: 06/17/24 12:12 Last Admin: 06/17/24 13:38 Dose: 20 mg Documented By: MTEstevan Furosemide (Furosemide Inj 20 Mg/2 Ml Vial) 20 mg IV ONE ONE Stop: 06/17/24 17:37 Last Admin: 06/17/24 18:17 Dose: 20 mg Documented By: ANGELES Furosemide (Furosemide Inj 20 Mg/2 Ml Vial) 20 mg IV ONE ONE Stop: 06/17/24 22:31 Last Admin: 06/17/24 22:06 Dose: 20 mg Documented By: MARIANA Furosemide (Furosemide Inj 20 Mg/2 Ml Vial) 20 mg IV ONE ONE Stop: 06/18/24 10:31 Last Admin: 06/18/24 10:38 Dose: 20 mg Documented By: KIMBERLY Gabapentin (Gabapentin 100 Mg Cap) 100 mg PO NOW STA Stop: 06/09/24 20:40 Last Admin: 06/09/24 21:35 Dose: 100 mg Documented By: JANET Heparin Sodium (Porcine) (Heparin Sod 5,000 Unit/0.5 Ml Vial) 5,000 units SQ Q8 MILY Stop: 07/09/24 23:44 Last Admin: 06/14/24 06:22 Dose: 5,000 units Documented By: Admin: 06/13/24 22:38 Dose: 5,000 units Documented By: Admin: 06/13/24 15:14 Dose: Not Given Documented By: Admin: 06/13/24 05:47 Dose: 5,000 units Documented By: Admin: 06/12/24 21:43 Dose: 5,000 units Documented By: Admin: 06/12/24 14:35 Dose: 5,000 units Documented By: Admin: 06/12/24 06:22 Dose: 5,000 units Documented By: Admin: 06/11/24 21:16 Dose: 5,000 units Documented By: Admin: 06/11/24 13:24 Dose: 5,000 units Documented By: Admin: 06/11/24 06:12 Dose: 5,000 units Documented By: Admin: 06/10/24 21:41 Dose: 5,000 units Documented By: TLAn Admin: 06/10/24 14:31 Dose: 5,000 units Documented By: Admin: 06/10/24 06:54 Dose: 5,000 units Documented By: Admin: 06/10/24 01:15 Dose: Not Given Documented By: EBN Heparin Sodium (Porcine) (Heparin Sod (Porcine) 1000 Unit/Ml) 4,000 units IV NOW ONE Stop: 06/16/24 05:31 Last Admin: 06/16/24 05:34 Dose: 4,000 units Documented By: JOVITA Co-signed By: EMILY Magnesium Sulfate/Dextrose (Magnesium Sulfate / D5w) 1 gm in 100 mls @ 200 mls/hr IV Q30M MILY Stop: 06/09/24 20:44 Last Infusion: 06/09/24 21:35 Dose: Infused Documented By: Admin: 06/09/24 20:58 Dose: 200 mls/hr Documented By: Infusion: 06/09/24 20:56 Dose: Infused Documented By: Admin: 06/09/24 20:26 Dose: 200 mls/hr Documented By: JANET Sodium Chloride (Nss) 1,000 mls @ 80 mls/hr IV .[id number] MILY Stop: 06/11/24 17:29 Last Infusion: 06/11/24 20:06 Dose: Infused Documented By: Infusion: 06/11/24 19:00 Dose: Infused Documented By: Infusion: 06/11/24 17:58 Dose: 0 mls/hr Documented By: Admin: 06/11/24 06:12 Dose: 80 mls/hr Documented By: Infusion: 06/11/24 06:12 Dose: Infused Documented By: Admin: 06/10/24 17:56 Dose: 80 mls/hr Documented By: JULIUS Sodium Chloride (Nss) 1,000 mls @ 80 mls/hr IV .[id number] MILY Stop: 06/12/24 00:44 Last Infusion: 06/12/24 06:06 Dose: Infused Documented By: Infusion: 06/11/24 19:00 Dose: Infused Documented By: Admin: 06/11/24 13:24 Dose: 80 mls/hr Documented By: POP Digoxin 125 mcg/ Syringe 10 mls @ 2 mls/min IV NOW STA Stop: 06/14/24 01:07 Last Admin: 06/14/24 01:13 Dose: 2 mls/min Documented By: JOVITA Digoxin 125 mcg/ Syringe 10 mls @ 2 mls/min IV NOW ONE Stop: 06/14/24 02:19 Last Admin: 06/14/24 02:25 Dose: 2 mls/min Documented By: JOVITA Sodium Chloride (Nss) 500 mls @ 999 mls/hr IV .Q31M ONE Stop: 06/14/24 03:11 Last Infusion: 06/14/24 03:55 Dose: Infused Documented By: Admin: 06/14/24 03:24 Dose: 999 mls/hr Documented By: JOVITA Sodium Chloride (Nss) 1,000 mls @ 50 mls/hr IV .Q20H [facility] Stop: 06/15/24 00:44 Last Infusion: 06/14/24 18:45 Dose: Infused Documented By: Admin: 06/14/24 04:51 Dose: 50 mls/hr Documented By: JOVITA Heparin Sodium/Dextrose (Heparin Sodium/Dextrose) 25,000 units in 500 mls @ 18 mls/hr IV .Q24H [facility]; Protocol Stop: 06/17/24 21:00 Last Titration: 06/18/24 10:07 Dose: Infused Documented By: KIMBERLY Co-signed By: TRAVIS Titration: 06/17/24 18:56 Dose: 900 units/hr, 18 mls/hr Documented By: ANGELES Co-signed By: AKD Titration: 06/17/24 18:13 Dose: 900 units/hr, 18 mls/hr Documented By: ANGELES Co-signed By: DW Titration: 06/17/24 09:53 Dose: 850 units/hr, 17 mls/hr Documented By: [email or web address] Co-signed By: DTT Titration: 06/17/24 09:24 Dose: 700 units/hr, 14 mls/hr Documented By: ANGELES Co-signed By: BULL Admin: 06/17/24 08:17 Dose: 650 units/hr, 13 mls/hr Documented By: NELY Co-signed By: TAR Titration: 06/17/24 08:17 Dose: Infused Documented By: AAF Co-signed By: TAR Titration: 06/17/24 07:08 Dose: 0 units/hr, 0 mls/hr Documented By: JOVITA Co-signed By: ANGELES Admin: 06/16/24 19:15 Dose: Not Given Documented By: Titration: 06/16/24 19:09 Dose: 800 units/hr, 16 mls/hr Documented By: LAG Co-signed By: MTN Titration: 06/16/24 12:18 Dose: 800 units/hr, 16 mls/hr Documented By: MTN Co-signed By: TRAVIS Titration: 06/16/24 07:05 Dose: 800 units/hr, 16 mls/hr Documented By: LAG Co-signed By: MTN Titration: 06/16/24 05:18 Dose: 800 units/hr, 16 mls/hr Documented By: JOVITA Co-signed By: EMILY Admin: 06/16/24 01:51 Dose: 650 units/hr, 13 mls/hr Documented By: JOVITA Co-signed By: KESegundo Titration: 06/16/24 01:21 Dose: Infused Documented By: LAG Co-signed By: KESegundo Titration: 06/15/24 18:56 Dose: 650 units/hr, 13 mls/hr Documented By: MTN Co-signed By: LAG Titration: 06/15/24 10:41 Dose: 650 units/hr, 13 mls/hr Documented By: MTN Co-signed By: ENS Titration: 06/15/24 07:08 Dose: 650 units/hr, 13 mls/hr Documented By: JOVITA Co-signed By: MTN Titration: 06/14/24 19:18 Dose: 650 units/hr, 13 mls/hr Documented By: JOVITA Co-signed By: MTN Titration: 06/14/24 18:41 Dose: 650 units/hr, 13 mls/hr Documented By: MTN Co-signed By: ADELITA Admin: 06/14/24 10:53 Dose: 650 units/hr, 13 mls/hr Documented By: MTN Co-signed By: ADELITA Piperacillin Sod/Tazobactam Sod (Zosyn) 4.5 gm in 100 mls @ 25 mls/hr IV Q8H [facility]; Protocol Stop: 06/20/24 17:59 Last Infusion: 06/19/24 13:02 Dose: Infused Documented By: Admin: 06/19/24 12:10 Dose: 250 mls/hr Documented By: Infusion: 06/19/24 08:38 Dose: Infused Documented By: Admin: 06/19/24 04:43 Dose: 25 mls/hr Documented By: Infusion: 06/19/24 01:08 Dose: Infused Documented By: Admin: 06/18/24 21:08 Dose: 25 mls/hr Documented By: Infusion: 06/18/24 17:46 Dose: Infused Documented By: Admin: 06/18/24 13:23 Dose: 25 mls/hr Documented By: Infusion: 06/18/24 08:45 Dose: Infused Documented By: Admin: 06/18/24 04:06 Dose: 25 mls/hr Documented By: Infusion: 06/18/24 00:07 Dose: Infused Documented By: Admin: 06/17/24 20:07 Dose: 25 mls/hr Documented By: Infusion: 06/17/24 17:42 Dose: Infused Documented By: Admin: 06/17/24 13:38 Dose: 25 mls/hr Documented By: Infusion: 06/17/24 06:19 Dose: Infused Documented By: Admin: 06/17/24 02:19 Dose: 25 mls/hr Documented By: Infusion: 06/16/24 21:36 Dose: Infused Documented By: Admin: 06/16/24 17:36 Dose: 25 mls/hr Documented By: Infusion: 06/16/24 15:24 Dose: Infused Documented By: Admin: 06/16/24 11:18 Dose: 25 mls/hr Documented By: Infusion: 06/16/24 05:52 Dose: Infused Documented By: Admin: 06/16/24 01:52 Dose: 25 mls/hr Documented By: Infusion: 06/15/24 22:40 Dose: Infused Documented By: Admin: 06/15/24 18:40 Dose: 25 mls/hr Documented By: MTN Piperacillin Sod/Tazobactam Sod (Zosyn) 4.5 gm in 100 mls @ 200 mls/hr IV NOW ONE; Protocol Stop: 06/15/24 11:29 Last Infusion: 06/15/24 13:05 Dose: Infused Documented By: Admin: 06/15/24 12:06 Dose: 200 mls/hr Documented By: ANGELES Methylprednisolone 20 mg/ (Syringe) 0.32 mls @ 1.5 mls/min IV ONE ONE Stop: 06/17/24 12:31 Last Admin: 06/17/24 13:38 Dose: 1.5 mls/min Documented By: ANGELES Albumin Human (Albumin 25%) 25 gm in 100 mls @ 50 mls/hr IV ONE ONE Stop: 06/19/24 03:32 Last Infusion: 06/19/24 04:44 Dose: Infused Documented By: Admin: 06/19/24 02:30 Dose: 50 mls/hr Documented By: PETRA Metoprolol Succinate (Metoprolol Succ 25mg Ext Rel Tab) 12.5 mg PO [facility] Stop: 07/10/24 11:59 Last Admin: 06/11/24 07:49 Dose: 12.5 mg Documented By: Admin: 06/10/24 12:18 Dose: 12.5 mg Documented By: JULIUS Metoprolol Succinate (Metoprolol Succ 25mg Ext Rel Tab) 25 mg PO [facility] Stop: 07/12/24 08:59 Last Admin: 06/13/24 09:31 Dose: 25 mg Documented By: Admin: 06/12/24 07:55 Dose: 25 mg Documented By: FAHAD Metoprolol Succinate (Metoprolol Succ 25mg Ext Rel Tab) 25 mg PO NOW STA Stop: 06/13/24 10:10 Last Admin: 06/13/24 11:09 Dose: 25 mg Documented By: ANGELES Metoprolol Tartrate (Metoprolol Tartrate 1 Mg/Ml Vial) 5 mg IV Q6 PRN PRN Reason: Tachycardia Stop: 07/09/24 23:44 Last Admin: 06/13/24 19:21 Dose: 5 mg Documented By: Admin: 06/10/24 19:29 Dose: 5 mg Documented By: BEN Metoprolol Tartrate (Metoprolol Tartrate 1 Mg/Ml Vial) 5 mg IV NOW STA Stop: 06/13/24 20:18 Last Admin: 06/13/24 20:35 Dose: 5 mg Documented By: JOVITA Metoprolol Tartrate (Metoprolol Tartrate 1 Mg/Ml Vial) 5 mg IV NOW STA Stop: 06/14/24 03:45 Last Admin: 06/14/24 04:04 Dose: 5 mg Documented By: JOVITA Metoprolol Tartrate (Metoprolol Tartrate 1 Mg/Ml Vial) 5 mg IV NOW ONE Stop: 06/15/24 10:02 Last Admin: 06/15/24 11:01 Dose: 5 mg Documented By: ANGELES Metoprolol Tartrate (Metoprolol Tartrate 1 Mg/Ml Vial) Confirm Administered Dose 5 mg IV .STK-MED ONE Stop: 06/17/24 08:00 Last Admin: 06/17/24 09:30 Dose: Not Given Documented By: ANGELES Metoprolol Tartrate (Metoprolol Tartrate 1 Mg/Ml Vial) 2.5 mg IV NOW STA Stop: 06/17/24 08:09 Last Admin: 06/17/24 08:01 Dose: 2.5 mg Documented By: NELY Midazolam HCl (Midazolam Hcl 1 Mg/Ml 2ml Vial) Confirm Administered Dose 2 mg .ROUTE .STK-MED ONE Stop: 06/17/24 07:24 Last Admin: 06/17/24 09:29 Dose: Not Given Documented By: ANGELES Miscellaneous (Stop Order: Heparin Gtt) 1 each N/A ONE ONE Stop: 06/17/24 21:01 Last Admin: 06/17/24 20:07 Dose: 1 each Documented By: MARIANA Olanzapine (Olanzapine 10 Mg/2.1 Ml Sdv) 2.5 mg IM NOW STA Stop: 06/19/24 01:31 Last Admin: 06/19/24 01:48 Dose: 2.5 mg Documented By: PETRA Potassium Chloride (Potassium Chloride Crtab 20 Meq Tabcr) 40 meq PO ONE ONE Stop: 06/12/24 08:56 Last Admin: 06/12/24 10:20 Dose: 40 meq Documented By: FAHAD Potassium Chloride (Potassium Chloride Crtab 20 Meq Tabcr) 40 meq PO NOW ONE Stop: 06/13/24 10:09 Last Admin: 06/13/24 11:09 Dose: 40 meq Documented By: ANGELES Potassium Chloride (Potassium Chloride Crtab 20 Meq Tabcr) 20 meq PO NOW STA Stop: 06/14/24 01:06 Last Admin: 06/14/24 01:14 Dose: 20 meq Documented By: JOVITA Sotalol HCl (Sotalol Hcl 80 Mg Tab) 80 mg PO BID MILY Stop: 07/14/24 08:59 Last Admin: 06/18/24 09:23 Dose: 80 mg Documented By: Admin: 06/17/24 20:06 Dose: 80 mg Documented By: Admin: 06/17/24 10:00 Dose: 80 mg Documented By: Admin: 06/16/24 19:54 Dose: 80 mg Documented By: Admin: 06/16/24 08:44 Dose: 80 mg Documented By: Admin: 06/15/24 20:00 Dose: 80 mg Documented By: Admin: 06/15/24 09:15 Dose: 80 mg Documented By: Admin: 06/14/24 20:19 Dose: 80 mg Documented By: Admin: 06/14/24 11:17 Dose: 80 mg Documented By: MTN Description This is a 21 electrode EEG with a single channel dedicated to limited EKG. The electrodes were placed in accordance with the International 10-20 system. REPORT: At the onset of the EEG the patient is awake. The background appears symmetric and continuous. The posterior dominant rhythm is 8 hertz. There is frequent myogenic and motion artifact throughout the study. Photic stimulation does not induce any abnormalities. No epileptiform discharges were seen. No stage 2 sleep transients are seen. Interpretation Impression: This is an abnormal awake routine EEG due to mild background slowing suggestive of a mild nonspecific encephalopathy. There is no evidence of epileptiform activity.
--- NOTE | 2024-06-20 15:24 | Discharge Summary ---
Discharge Summary Date of Service June 20, 2024 Principal Dx & Hospital Course #1 = Principal Diagnosis (1) Atrial flutter with rapid ventricular response: (2) Leg cramping: (3) Interstitial lung disease: (4) Hypothyroidism (acquired): (5) Hyperlipidemia: Notes For Next Care Provider Medication Changes From Visit Eliquis 5 mg twice daily Sotalol 120 mg twice daily Admission HPI Per Admitting Provider Patient is an 83-year-old female with history of hypothyroidism, hyperlipidemia, Hurthle cell adenoma of the thyroid, chronic respiratory failure on 2 L of oxygen, interstitial lung disease, chronic diastolic CHF and neurocognitive impairment, patient was brought to the hospital apparently because of noticing some tremors and cramps. Patient was found to have some level of acute kidney injury for which patient was placed on IV fluid and stabilized, patient was also found to have atrial flutter for which underwent cardioversion and converted to sinus rhythm. Patient was seen by cardiology and she is overall stable at this point. Thereafter patient was seen by physical therapy and plan for rehab placement. During the workup, her urine metanephrine was found to be elevated at 1000, endocrinology was consulted and this level was not convincingly high to be considered for the diagnosis of pheochromocytoma. EEG which also was done early during this admission, was read as background encephalopathy without any seizure activity. Family was met again today and all the findings were reviewed and discussed, her case was then discussed with case management, we are planning on SNF placement by the end of today, we will proceed with discharging her. Updated Medication List Medication Instructions Recorded Confirmed Type albuterol sulfate 90 mcg/actuation 2 puff inhalation Q6H PRN 06/09/24 06/09/24 History aerosol inhaler (Ventolin HFA) Shortness Of Breath Or Wheezing amitriptyline 25 mg tablet 25 mg PO HS 06/09/24 06/09/24 History arformoterol 15 mcg/2 mL solution 15 mcg inhalation BID 06/09/24 06/09/24 History for nebulization budesonide 0.5 mg/2 mL suspension 0.5 mg inhalation BID 06/09/24 06/09/24 History for nebulization clonazepam 0.5 mg tablet 0.25 mg PO Q6H PRN Anxiety 06/09/24 06/09/24 History furosemide 40 mg tablet 40 mg PO UD 06/09/24 06/09/24 History levothyroxine 125 mcg tablet 125 mcg PO DAILY 06/09/24 06/09/24 History apixaban 5 mg tablet (Eliquis) 5 mg PO BID 30 days #60 tabs 06/20/24 Rx ferrous sulfate 325 mg (65 mg 325 mg PO QAM 30 days #30 tabs 06/20/24 Rx iron) tablet,delayed release magnesium oxide 400 mg (241.3 mg 400 mg PO QAM 30 days #30 tabs 06/20/24 Rx magnesium) tablet pantoprazole 40 mg tablet,delayed 40 mg PO DAILY 30 days #30 tabs 06/20/24 Rx release rosuvastatin 20 mg tablet 20 mg PO DAILY 30 days #30 tabs 06/20/24 Rx sotalol 80 mg tablet 120 mg (1.5 x 80 mg) PO BID 30 06/20/24 Rx days #90 tabs Hospital Stay Data Consultations 06/09/24 19:41 ED Decision to Admit Stat 06/10/24 08:00 Consult Cardiology Routine 06/10/24 12:26 Consult Neurology Routine 06/19/24 15:31 Consult Endocrinology Routine Procedures Performed Operation Date: 06/17/24 07:30 Actual Procedures p Transesophageal Echo - Rakesh Solis DO s Echo Color Flow - Rakesh Solis DO Diagnostic Imagining Performed 06/09/24 19:40 US venous doppler LE BI Stat 06/10/24 08:00 CT abd pelvis wo con Routine 06/17/24 10:00 FL video swallow Routine Pending Results Patient Have Any Pending Studies at Discharge: No Discharge Instructions Given to Patient (Per Discharging Provider) No further recommendation Total Time Total Time Spent Total Time Spent (In Minutes): More than 35 minutes
[2024-06-20 15:44] VITALS: PULSE 71
== END 2024-06-20 17:00 | DRG 309 ==
LOC: ED 16:10 → 4W 20:35 → SUATTDRO 20:35 → 4W 22:28

== ENCOUNTER 2024-07-19 13:16 | Inpatient (IN) ==
[2024-07-19] MEDS: SODIUM CHLORIDE 0.9% 500 ML IV ONE (14:16)
[2024-07-19 14:39] LABS: Basophils # (auto) 0.03 K/uL (0.00-0.20); Basophils % (auto) 0.3 %; Eosinophils # (auto) 0.07 K/uL (0.00-0.50); Eosinophils % (auto) 0.8 %; Hematocrit (blood only) 31.9 % (37.0-47.0); Hemoglobin 10.7 g/dl (12.0-16.0); Immature Granulocytes # (auto) 0.02 K/uL (0.01-0.20); Immature Granulocytes % (auto) 0.2 %; Lymphocytes # (auto) 1.65 K/uL (1.20-3.40); Lymphocytes % (auto) 18.8 %; Mean Corpuscular Hemoglobin 29.2 pg (25.0-34.0); Mean Corpuscular Hgb Conc 33.5 g/dL (32.0-36.0); Mean Corpuscular Volume 86.9 fL (80.0-100.0); Mean Platelet Volume 11.6 fL (9.4-12.4); Monocytes % (auto) 5.7 %; Neutrophils # (auto) 6.51 K/uL (1.40-6.50); Neutrophils % (auto) 74.2 %; Platelet Count 161 K/uL (130-400); RDW Coefficient of Variation 14.3 % (11.5-14.5); RDW Standard Deviation 45.2 fL (36.4-46.3); Red Blood Count 3.67 M/uL (4.20-5.40); White Blood Count 8.78 K/ul (4.8-10.8)
--- NOTE | 2024-07-19 14:48 | Electrocardiogram Report ---
Test Reason : Blood Pressure : */* mmHG Vent. Rate : 63 BPM Atrial Rate : 63 BPM P-R Int : 154 ms QRS Dur : 74 ms QT Int : 474 ms P-R-T Axes : 25 -17 -10 degrees QTcB Int : 485 ms Normal sinus rhythm Minimal voltage criteria for LVH, may be normal variant ( R in aVL ) Junctional ST depression, probably abnormal Abnormal ECG When compared with ECG of 19-Jun-2024 06:41, ST now depressed in Inferior leads ST elevation now present in Lateral leads T wave inversion now evident in Inferior leads Confirmed by Phil Tsai ([id number]) on 07/19/2024 2:48:04 PM Referred By: Confirmed By: Phil Tsai
[2024-07-19 14:54] LABS: Alanine Aminotransferase 41 U/L (7-52); Albumin Globulin Ratio 1.1 (0.9-2); Albumin Level 3.3 gm/dl (3.4-5.0); Alkaline Phosphatase 87 U/L (34-104); Anion Gap 4 (3-11); Aspartate Aminotransferase 32 U/L (13-39); BUN Creatinine Ratio 14.3 (10-20); Bilirubin,Total 0.4 mg/dl (0.2-1.0); Blood Urea Nitrogen 17 mg/dl (6-23); Calcium 8.3 mg/dl (8.6-10.3); Carbon Dioxide 37 mmol/L (21-32); Chloride 99 mmol/L (98-107); Globulin 2.9 gm/dl (2.5-4.0); Glucose 133 mg/dl (70-99(Fasting)); Potassium 4.1 mmol/L (3.5-5.1); Sodium 140 mmol/L (136-145); Total Protein 6.2 gm/dl (6.0-8.3)
--- NOTE | 2024-07-19 15:05 | XRay Report ---
XR chest 1V not portable CLINICAL HISTORY: pneumonia COMPARISON STUDY: 06/19/2024 FINDINGS: Stable mild cardiomegaly without pulmonary vascular congestion. There is mild stranding [place] in the lung bases, improved. No other consolidation or pleural effusion. No pneumothorax. IMPRESSION: Atelectasis or mild persistent pneumonia in the lung bases, improved. ACT 112: Negative or not required by law. Electronically signed by: Nestor Cordova M.D. 07/19/2024 3:04 PM
--- NOTE | 2024-07-19 16:00 | Emergency Department Note ---
Impression & Plan Adult failure to thrive ED Provider Note HISTORY OF PRESENT ILLNESS: Patient is an 83-year-old female presenting with failure to thrive. Son provides most of history. Reports that the 2 sons and the patient's are unable to care for the patient at home anymore. She was admitted to [facility] at the end of May 2024 until early June. They report that she has not been doing well at home and last week was diagnosed with dehydration and pneumonia and admitted to [facility]. She was discharged at the beginning of last week and went to her primary care provider's office and was found to still be very dehydrated and given IV fluids earlier this week. Son states the patient is not eating or drinking anything at home and is too weak to get up and get around. They report they are unable to care for her. She reportedly is lost 35 pounds in the last 35 days. Patient denies any chest pain or shortness of breath. She is on her baseline 2 L nasal cannula. No reported fevers. Denies any abdominal pain, nausea or vomiting. Patient is scheduled for an endoscopy with [facility] on August 02, but son reports "she is not can to make it that long." ROS: as above PHYSICAL EXAM: Constitutional: Patient appears in no acute distress. HENT: Head: Normocephalic and atraumatic. Eyes: EOMI, PERRL Mouth/Throat: Mucous membranes moist. Neck: Trachea midline. Neck supple. Cardiovascular: RRR, No murmurs, rubs or gallops. Intact distal pulses. Pulmonary/Chest: No respiratory distress. Breath sounds clear and equal bilaterally. No wheezes or rales. Abdominal: Abdomen soft, no tenderness, rebound or guarding. Musculoskeletal: No edema, tenderness or deformity noted. Skin: Warm and dry. No rash, erythema, pallor or cyanosis Psychiatric: Appropriate mood and affect for situation. Neurological: Alert and keenly responsive. CN II-XII grossly intact, moving all extremities equally and fully. MDM: - Vitals signs showed tachycardia - History obtained via patient. History as above. - Chronic conditions affecting care: HLD; hypothyroidism; Afib; CHF - Differential diagnoses include, but are not limited to: UTI; pneumonia; viral syndrome; electrolyte abnormality; deconditioning - Order placed for continuous cardiac monitoring. At this time, monitor showed rate of 98 bpm with normal sinus rhythm, per my interpretation. - External medical records reviewed. Discharge summary dated 06/20/2024 was reviewed. Patient was admitted that time for A-fib with RVR. - EKG interpreted by myself showed normal sinus rhythm. Rate 63 bpm. QT 474. Ischemic changes. There is noted to be some ST depressions in the inferior leads. - Laboratory workup interpreted by myself showed normal WBC; chronic anemia (Hgb 10.7); stable electrolytes; normal creatinine - CXR negative for pneumonia, per my interpretation - Viral respiratory panel negative - Patient given 500 cc NS in ER. - Discussed results with patient and her son and at bedside. Family reports they are unable to care for the patient at home and are requesting admission for potential placement and further evaluation. - Discussion was had with housing case manager about patient's case and need for admission - Hospitalist, Dr. Issa, consulted for admission - Patient admitted to [facility] Hospitalist service for further evaluation and management. ASSESSMENT AND PLAN: Diagnosis: Adult failure to thrive Plan: admit Past Med/Surg History Problem List (Updated 07/19/24 @ 16:42 by Olivia Goldman MD) Adult failure to thrive (Acute) Hyperlipidemia Hypothyroidism (acquired) Atrial flutter with rapid ventricular response Paroxysmal atrial flutter Leg cramping Episode of shaking Interstitial lung disease Tachycardia Squamous cell carcinoma Encounter for pre-operative examination Pneumonia (Acute) Hypoxia (Acute) Changing skin lesion Medical History Dyslipidemia Chronic heart failure with perserved EF SOB (shortness of breath) Multifactorial per pulmonary- chronic HF, chronic hypoxic respiratory failure, possible ILD, asthma, obesity, Covid infection 07/2020, multifocal consolidations/scarring, non allergic rhinitis History of pneumonia 12/2020 - required cont oxygen upon d/c from hospital and remains on Fear of needles Limb alert care status LUE Difficult intravenous access required assistance from IV team in past History of COVID-19 06/2020; asymptomatic Sleep apnea unable to tolerate CPAP History of home oxygen therapy 2 lpm cont- secondary to chronic hypoxic respiratory failure per pulm Tachycardia ANXIETY RELATED PER PATIENT. follows with Dr. Arguello Breast cancer Left breast 2001- sx + radiation GERD (gastroesophageal reflux disease) Hypothyroidism Anxiety Hx of deep venous thrombosis LLE - "years ago" - r/t injury Asthma Follows with Dr. Geiger, [facility]. Uses PRN neb daily Surgical History History of lumpectomy of left breast History of breast biopsy History of removal of cyst History of bilateral tubal ligation History of arthroscopy BILAT KNEES History of esophagogastroduodenoscopy (EGD) History of colonoscopy Hx of hernia repair History of cholecystectomy Social History Smoking Status: Never smoker Second Hand Exposure: Yes (sister smokes); Do You Dip or Chew Tobacco: No; Hx Alcohol Use: No Hx Substance Use: No Preferred Language: Panamanian Communication Ability: Effective Automotive Artist Required: No Beliefs That Will Affect Care: None Current Living Situation: Spouse Feels Safe at Home: Yes Assistive Devices: Oxygen - Continuous Allergies Allergies Allergy/AdvReac Type Severity Reaction Status Date / Time iodine Allergy Severe ORAL AND Verified 06/09/24 21:04 FACIAL SWELLING methadone Allergy Severe Shakiness Verified 06/09/24 21:04 propoxyphene Allergy Severe Shakiness Verified 06/09/24 21:04 shellfish derived Allergy Severe ORAL AND Verified 06/09/24 21:04 FACIAL SWELLING clarithromycin Allergy Unknown unknown Verified 06/09/24 21:04 prednisone Allergy Unknown Shakiness Verified 06/09/24 21:04 Serotonin 5HT-3 Antagonists Allergy Unknown Anxiety Verified 06/09/24 21:04 morphine AdvReac Unknown LIGHTHEADED Verified 06/09/24 21:04 Home Meds Home Medications Medication Instructions Recorded Confirmed albuterol sulfate 90 mcg/actuation 2 puff inhalation Q6H PRN 06/09/24 06/09/24 aerosol inhaler (Ventolin HFA) Shortness Of Breath Or Wheezing amitriptyline 25 mg tablet 25 mg PO HS 06/09/24 06/09/24 arformoterol 15 mcg/2 mL solution 15 mcg inhalation BID 06/09/24 06/09/24 for nebulization budesonide 0.5 mg/2 mL suspension 0.5 mg inhalation BID 06/09/24 06/09/24 for nebulization clonazepam 0.5 mg tablet 0.25 mg PO Q6H PRN Anxiety 06/09/24 06/09/24 furosemide 40 mg tablet 40 mg PO UD 06/09/24 06/09/24 levothyroxine 125 mcg tablet 125 mcg PO DAILY 06/09/24 06/09/24 Previous Rx's Medication Instructions Recorded apixaban 5 mg tablet (Eliquis) 5 mg PO BID 30 days #60 tabs 06/20/24 ferrous sulfate 325 mg (65 mg 325 mg PO QAM 30 days #30 tabs 06/20/24 iron) tablet,delayed release magnesium oxide 400 mg (241.3 mg 400 mg PO QAM 30 days #30 tabs 06/20/24 magnesium) tablet pantoprazole 40 mg tablet,delayed 40 mg PO DAILY 30 days #30 tabs 06/20/24 release rosuvastatin 20 mg tablet 20 mg PO DAILY 30 days #30 tabs 06/20/24 sotalol 80 mg tablet 120 mg (1.5 x 80 mg) PO BID 30 06/20/24 days #90 tabs Results & Data (ED) Vital Signs Vital Signs - 24 hr 07/19/24 13:19 Temperature 36.2 C L Temperature Source Temporal Artery Scan Pulse Rate 100 H Respiratory Rate 16 Respiratory Effort / Characteristics Non-Labored Spontaneous Respiratory Depth Normal Respiratory Pattern Regular Blood Pressure 106/66 Blood Pressure Mean 79 Pulse Oximetry 98 Oxygen Delivery Method Nasal Cannula Oxygen Flow Rate 2 Sepsis Recent Fever Within 48 Hours No Sepsis New/Unexplained Change in Mental Status N/A Sepsis Action Taken by Nursing No Action Required Laboratory Data 07/19/24 14:18 07/19/24 14:18 Lab Results 07/19/24 Range/Units 14:18 WBC 8.78 (4.8-10.8) K/ul RBC 3.67 L (4.20-5.40) M/uL Hgb 10.7 L (12.0-16.0) g/dl Hct 31.9 L (37.0-47.0) % MCV 86.9 (80.0-100.0) fL MCH 29.2 (25.0-34.0) pg MCHC 33.5 (32.0-36.0) g/dL RDW Std Deviation 45.2 (36.4-46.3) fL RDW Coeff of Neena 14.3 (11.5-14.5) % Plt Count 161 (130-400) K/uL MPV 11.6 (9.4-12.4) fL Immature Gran % (Auto) 0.2 % Neut % (Auto) 74.2 % Lymph % (Auto) 18.8 % [place] % (Auto) 5.7 % Eos % (Auto) 0.8 % Baso % (Auto) 0.3 % Neut # (Auto) 6.51 H (1.40-6.50) K/uL Lymph # (Auto) 1.65 (1.20-3.40) K/uL [place] # (Auto) 0.50 (0.11-0.59) K/uL Eos # (Auto) 0.07 (0.00-0.50) K/uL Baso # (Auto) 0.03 (0.00-0.20) K/uL Immature Gran # (Auto) 0.02 (0.01-0.20) K/uL Sodium 140 (136-145) mmol/L Potassium 4.1 (3.5-5.1) mmol/L Chloride 99 (98-107) mmol/L Carbon Dioxide 37 H (21-32) mmol/L Anion Gap 4 (3-11) BUN 17 (6-23) mg/dl Creatinine 1.19 (0.6-1.2) mg/dl Est Cr Clr Drug Dosing Not Reportable eGFR 45.94 BUN/Creatinine Ratio 14.3 (10-20) Glucose 133 H (70-99(Fasting)) mg/dl Calcium 8.3 L (8.6-10.3) mg/dl Total Bilirubin 0.4 (0.2-1.0) mg/dl AST 32 (13-39) U/L ALT 41 (7-52) U/L Alkaline Phosphatase 87 (34-104) U/L Total Protein 6.2 (6.0-8.3) gm/dl Albumin 3.3 L (3.4-5.0) gm/dl Globulin 2.9 (2.5-4.0) gm/dl Albumin/Globulin Ratio 1.1 (0.9-2) Administered Medications Discontinued Medications Sodium Chloride (Nss) 500 mls @ 999 mls/hr IV .Q31M ONE Stop: 07/19/24 14:03 Last Infusion: 07/19/24 16:00 Dose: Infused Documented By: Admin: 07/19/24 14:16 Dose: 999 mls/hr Documented By: BMK Imaging Data Radiologist's Impression: Chest X-Ray 07/19/24 13:32 XR chest 1V not portable CLINICAL HISTORY: pneumonia COMPARISON STUDY: 06/19/2024 FINDINGS: Stable mild cardiomegaly without pulmonary vascular congestion. There is mild stranding [place] in the lung bases, improved. No other consolidation or pleural effusion. No pneumothorax. IMPRESSION: Atelectasis or mild persistent pneumonia in the lung bases, improved. ACT 112: Negative or not required by law. Electronically signed by: Nestor Cordova M.D. 07/19/2024 3:04 PM Discharge Plan Visit Data Chief Complaint: Dehydration Stated Complaint: DEHYDRATION ED Provider: Olivia Goldman Discharge Problem: Adult failure to thrive Forms Stand Alone Forms: My [facility] [employer] Prescriptions Prescriptions: No Action furosemide 40 mg tablet 40 mg PO UD Rx Instructions: 40mg in am and 40mg at Mid afternoon. clonazepam 0.5 mg tablet 0.25 mg PO Q6H PRN (Reason: Anxiety) amitriptyline 25 mg tablet 25 mg PO HS levothyroxine 125 mcg tablet 125 mcg PO DAILY budesonide 0.5 mg/2 mL suspension for nebulization 0.5 mg inhalation BID arformoterol 15 mcg/2 mL solution for nebulization 15 mcg INHALATION BID albuterol sulfate [Ventolin HFA] 90 mcg/actuation Hfa Aerosol Inhaler 2 puff INHALATION Q6H PRN (Reason: Shortness Of Breath Or Wheezing) Eliquis 5 mg Tablet 5 mg PO BID 30 Days Qty: 60 0RF ferrous sulfate 325 mg (65 mg iron) Tablet,Delayed Release (Dr/Ec) 325 mg PO QAM 30 Days Qty: 30 0RF rosuvastatin 20 mg Tablet 20 mg PO DAILY 30 Days Qty: 30 0RF sotalol 80 mg Tablet 120 mg PO BID 30 Days Qty: 90 0RF magnesium oxide 400 mg (241.3 mg magnesium) Tablet 400 mg PO QAM 30 Days Qty: 30 0RF pantoprazole 40 mg Tablet,Delayed Release (Dr/Ec) 40 mg PO DAILY 30 Days Qty: 30 0RF Referrals Referrals: Umair Gillis, [Primary Care Provider] -
--- NOTE | 2024-07-19 17:00 | History & Physical Report ---
Date of Service July 19, 2024 Assessment & Plan (1) Adult failure to thrive: (2) Early satiety: (3) Unintentional weight loss: (4) Hypothyroidism (acquired): (5) Interstitial lung disease: (6) Chronic hypoxic respiratory failure, on home oxygen therapy: (7) Paroxysmal atrial flutter: (8) Chronic anticoagulation: Plan Patient 83-year-old female brought to the emergency room with complaints of early satiety, unintentional weight loss and failure to thrive in the setting. Patient had a high risk for significant electrolyte abnormalities, progressive malnutrition and dehydration. Patient requires hospital level care and interventions. Admit to the MedSurg unit Continue home medications as ordered Gentle IV hydration Consult GI for possible upper endoscopy evaluation Increase Remeron for appetite stimulation Continue anticoagulation with Eliquis Continue oxygen as per her baseline Discussed advanced directives with patient and family. Patient request to be full code History of Present Illness Chief Complaint: Poor appetite, not doing well at home, weight loss Primary Care Provider: Umair Gillis DO Patient is an 83-year-old female who over the past 4 to 5 weeks has been in the hospital or rehab center. Patient was admitted at [facility] in late May for atrial fibrillation/flutter. She underwent cardioversion and has remained in sinus rhythm. During that time there was also noted some issues with swallowing. She had a video swallow which did not show any significant asp iration. Speech recommended easy to chew diet. From the hospital she went to a rehab facility. She was at the rehab facility and was then sent to [facility] for hospitalization for pneumonia. Again was having issues with swallowing or early satiety and just generalized decreased appetite. It was recommend that she see GI as an outpatient. From [facility] she was discharged to home. Family reports that she has been home really just about a week. They report that the patient complains of early satiety and feeling full all the time. She basically takes her pills in applesauce and pudding, drinks some water throughout the day but really does not eat a whole lot more than that. Daughter in law reports that last night she ate some Mongolian fries and a half a hamburger and that was the most she is seeing her eat in many weeks. Daughter reports that the patient has lost approximately 30 pounds since the beginning of May. The patient was just seen by outpatient GI Ric Santoyo on 07/16/2024. They had recommended continuing Remeron for appetite stimulation and have planned outpatient EGD on August 01, 2024. They brought the patient to the ER today because they were concerned that she was dehydrated and not eating enough and was worried that she would not make it to the EGD on the . Patient denies any vomiting. Has some abdominal crampiness in addit ion to the early satiety. She states that she moves her bowels regularly and has not seen any blood in her stool. No fever or chills. No cough or cold symptoms. She has chronic interstitial lung disease and is on chronic oxygen. Has been no significant change in her symptoms related to this. Due to poor appetite she seems to getting progressively weaker and becoming more difficult to care for her at home also attributing to the ED visit today. Allergies Allergy/AdvReac Type Severity Reaction Status Date / Time iodine Allergy Severe ORAL AND Verified 06/09/24 21:04 FACIAL SWELLING methadone Allergy Severe Shakiness Verified 06/09/24 21:04 propoxyphene Allergy Severe Shakiness Verified 06/09/24 21:04 shellfish derived Allergy Severe ORAL AND Verified 06/09/24 21:04 FACIAL SWELLING clarithromycin Allergy Unknown unknown Verified 06/09/24 21:04 prednisone Allergy Unknown Shakiness Verified 06/09/24 21:04 Serotonin 5HT-3 Antagonists Allergy Unknown Anxiety Verified 06/09/24 21:04 morphine AdvReac Unknown LIGHTHEADED Verified 06/09/24 21:04 Home Medications Medication Instructions Recorded Confirmed Type albuterol sulfate 90 mcg/actuation 2 puff inhalation Q6H PRN 06/09/24 06/09/24 History aerosol inhaler (Ventolin HFA) Shortness Of Breath Or Wheezing amitriptyline 25 mg tablet 25 mg PO HS 06/09/24 06/09/24 History arformoterol 15 mcg/2 mL solution 15 mcg inhalation BID 06/09/24 06/09/24 Hist ory for nebulization budesonide 0.5 mg/2 mL suspension 0.5 mg inhalation BID 06/09/24 06/09/24 History for nebulization clonazepam 0.5 mg tablet 0.25 mg PO Q6H PRN Anxiety 06/09/24 06/09/24 History furosemide 40 mg tablet 40 mg PO UD 06/09/24 06/09/24 History levothyroxine 125 mcg tablet 125 mcg PO DAILY 06/09/24 06/09/24 History apixaban 5 mg tablet (Eliquis) 5 mg PO BID 30 days #60 tabs 06/20/24 Rx ferrous sulfate 325 mg (65 mg 325 mg PO QAM 30 days #30 tabs 06/20/24 Rx iron) tablet,delayed release magnesium oxide 400 mg (241.3 mg 400 mg PO QAM 30 days #30 tabs 06/20/24 Rx magnesium) tablet pantoprazole 40 mg tablet,delayed 40 mg PO DAILY 30 days #30 tabs 06/20/24 Rx release rosuvastatin 20 mg tablet 20 mg PO DAILY 30 days #30 tabs 06/20/24 Rx sotalol 80 mg tablet 120 mg (1.5 x 80 mg) PO BID 30 06/20/24 Rx days #90 tabs Past Med/Surg History Problem List (Updated 07/19/24 @ 17:08 by Mark Issa DO) Chronic anticoagulation Chronic hypoxic respiratory failure, on home oxygen therapy Unintentional weight loss Early satiety Adult failure to thrive (Acute) Hyperlipidemia Hypothyroidism (acquired) Atrial flutter with rapid ventricular response Paroxysmal atrial flutter Leg cramping Episode of shaking Interstitial lung disease Tachycardia Squamous cell carcinoma Encounter for pre-operative examination Pneumonia (Acute) Hypoxia (Acute) Changing skin lesion Medical History Dyslipidemia Chronic heart failure with perserved EF SOB (shortness of breath) Multifactorial per pulmonary- chronic HF, chronic hypoxic respiratory failure, possible ILD, asthma, obesity, Covid infection 07/2020, multifocal consolidations/scarring, non allergic rhinitis History of pneumonia 12/2020 - required cont oxygen upon d/c from hospital and remains on Fear of needles Limb alert care status LUE Difficult intravenous access required assistance from IV team in past History of COVID-19 06/2020; asymptomatic Sleep apnea unable to tolerate CPAP History of home oxygen therapy 2 lpm cont- secondary to chronic hypoxic respiratory failure per pulm Tachycardia ANXIETY RELATED PER PATIENT. follows with Dr. Arguello Breast cancer Left breast 2001- sx + radiation GERD (gastroesophageal reflux disease) Hypothyroidism Anxiety Hx of deep venous thrombosis LLE - "years ago" - r/t injury Asthma Follows with [facility]. Uses PRN neb daily Surgical History History of lumpectomy of left breast History of breast biopsy History of removal of cyst History of bilateral tubal ligation History of arthroscopy BILAT KNEES History of esophagogastroduodenoscopy (EGD) History of colonoscopy Hx of hernia repair History of cholecystectomy Social History Smoking Status: Never smoker Second Hand Exposure: Yes (sister smokes); Do You Dip or Chew Tobacco: No; Hx Alcohol Use: No Hx Substance Use: No Preferred Language: [place] Islander Communication Ability: Effective Housekeeping Assistant Required: No Beliefs That Will Affect Care: None Current Living Situation: Spouse Feels Safe at Home: Yes Assistive Devices: Oxygen - Continuous Review of Systems Review of Systems: Pertinent positive and negative review of systems as mentioned in the HPI Physical Exam Physical Exam: Constitutional: Alert, nontoxic, frail HEENT: Mucous membranes dry sclera clear Neck: Soft, no adenopathy Lungs: Decreased breath sounds, prolonged expiratory phase, chronic crackles throughout CV: S1-S2, regular Abdomen: Soft, slight distention, nontender, no guarding, no rigidity, no masses Extremities: Chronic hard lower extremity edema, with chronic compression stockings Musculoskeletal: No significant joint tenderness Neuro: No focal deficits, generally weak, hard of hearing Psych: Cooperative, normal mood Results & Data Results & Data Vital Signs (Past 12 Hours) Vital Signs Temp Pulse Resp BP Pulse Ox O2 Del Method O2 Flow Rate 07/19/24 13:19 36.2 C L 100 H 16 106/66 98 Nasal Cannula 2 Diagnostic Findings Reviewed imaging, laboratory and diagnostic studies. Pertinent findings as below WBCs 8.7 Hemoglobin 10.7 Platelets of 161 Electrolytes stable Carbon dioxide 37, improved from previous Creatinine 1.1 Calcium 8.3 Albumin 3.3 Personally reviewed chest x-ray, chronic changes but no acute infiltrate, actually improving findings based on previous chest x-ray per report Personally reviewed EKG sinus rhythm. Reviewed outside EMR: Reviewed GI office visit. EGD in 2019 showed some esophagitis with some appears to be a mild stricture. Recommending outpatient EGD. . Code Status & VTE Plan VTE Prophylaxis Plan VTE Prophylaxis will be ordered: No Reason for no VTE drug order: Contraindicated
[2024-07-19] MEDS ORDERED: METOCLOPRAMIDE HCL INJ 5 MG/ML 2 ML VIAL IV PRN (19:26)
[2024-07-19] MEDS ORDERED: ALUMINUM/MAGNESIUM SUSP 30 ML UDC PO PRN (19:26)
[2024-07-19] MEDS ORDERED: ALBUTEROL HFA 8 GM INHALER INH PRN (19:26)
[2024-07-19] MEDS: APIXABAN 5 MG TABLET PO SCH (20:39)
[2024-07-19] MEDS: MIRTAZAPINE TAB 15 MG TAB PO SCH (20:39)
[2024-07-19] MEDS: SODIUM CHLORIDE 0.45 % 1,000 ML IV SCH (20:39)
[2024-07-19 20:45] LABS: Appearance Urine Clear (Clear); Bacteria Urine Automated None Seen (None Seen); Bilirubin Urine Negative (Negative); Blood Urine 1+ (Negative); Color Urine Yellow; Glucose Urine UA Negative (Negative); Ketones Urine Negative (Negative); Leukocyte Esterase Urine 1+ (Negative); Nitrite Urine Negative (Negative); Protein Urine Trace (Negative); RBC Urine Automated 0-2 /hpf (0-2); Specific Gravity Urine 1.006 (1.000-1.030); Urobilinogen Urine Negative (Negative); pH Urine 5.5 (4.5-7.5)
[2024-07-19] MEDS: SOTALOL HCL 80 MG TAB PO SCH (21:16)
[2024-07-19] MEDS: BUDESONIDE 0.5 MG/2 ML VIAL (PULMICORT) INH SCH (21:52)
[2024-07-19] MEDS: FORMOTEROL 20 MCG/2 ML VIAL INH SCH (21:52)
--- OUTSIDE RECORDS SUMMARY | 2024-07-19 23:03 | External Medical Summary | Summary of Care ---
Author Name Unknown Organization [facility] Address [address] [facility] [place] [address] Phone [phone] Care Team Providers Care Color Worker Name Role Phone Umair Gillis DO Primary Care Provider Reason for Visit * Reason Onset Date Comments Advice 07/05/2024 Encounter Details Date Type Department Care Team (Late st Contact Info) Description 07/05/2024 Telephone Family Practice [facility] [address] [facility] [place] [address] Umair Gillis DO [address] [facility] [place] [address] Advice Allergies Active Allergy Reactions Criticality Noted Date [...] as of this encounter (statuses as of 07/11/2024) Medications ASPIRIN 81 MG PO TABSIndications:ta kes 3x a week Take by mouth. Indications: takes 3x a week Active triamcinolone acetonide (ARISTOCORT) 0.1 % cream Apply topically to affected area 2 times a day. To affected area. 60 g 5 8 Active oxygen IN GASIndications:ILD (interstitial lung disease) ([facility]),Moderate persistent asthma without complication,Chron ic respiratory failure with hypoxia ([facility]) Use 2 LPM with exertion. [...] PD, group C, by GOLD 2017 classification ([facility]),Chronic diastolic CHF (congestive heart failure) ([facility]),Moderate persistent asthma without complication Inhale 1 Puff by mouth every 4 hours as needed for Wheezing. 15 g 12 3 Active Ventolin HFA 108 (90 Base) MCG/ACT Inhalation Aerosol Solution Inhale 2 Puffs by mouth every 4 hours as needed for Wheezing. 18 g 3 3 Active Furosemide 40 MG Oral Tablet (Lasix)Indications :Chronic diastolic CHF (congestive heart failure) ([facility]) Take one tablet in the morning and one in the mid afternoon 60 Tablet 11 4 Active Budesonide 0.5 MG/2ML Inhalation Suspension (Pulmicort)Indicat ions:Moderate persistent asthma without complication,ILD (interstitial lung disease) ([facility]) Inhale 0.5 mg via nebulizer in the morning and 0.5 mg before bedtime. Dx J 44.9, J 84.9, J 45.40 Bill under medicare part B. 360 mL 3 4 Active Arformoterol Tartrate 15 MCG/2ML Inhalation Nebulization Solution (Brovana)Indicatio ns:Moderate persistent asthma without complication Inhale 15 mcg by mouth in the morning and 15 mcg before bedtime. 360 mL 3 4 Active clonazePAM 0.5 MG Oral Tablet (KlonoPIN)Indicati ons:CIELO (generalized anxiety disorder) TAKE 1/2 (ONE-HALF) TABLET BY MOUTH 4 TIMES DAILY NEEDED FOR ANXIETY 60 Tablet 3 4 Active Amitriptyline HCl 25 MG Oral Tablet (Elavil)Indication s:CIELO (generalized anxiety disorder) Take 1 Tablet by mouth at bedtime. 30 Tablet 5 4 Active Levothyroxine Sodium 125 MCG Oral Tablet (Levoxyl) Take 1 Tablet by mouth in the morning. (at least 30 min prior to breakfast or other meds). 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 * Telephone Encounter - Daphnie Espinal LPN - 07/05/2024 9:37 AM EST calling about gastro appt that is scheduled for 07/16. He would like to get a sooner appt asshe is eating very little. He is upset the [facility] in [place] is not doing anything for pt. Pt will call gastro to try to move up appt. * Telephone Encounter - Ana Cristina Garza OSA - 07/05/2024 9:35 AM EST Reason for patient's call: Patient's asking for nurse. Caller was transferred to Daphnie at the nurse line. documented in this encounter Plan of Treatment Upcoming Encounters Date Type Department Care Team (Late st Contact Info) Description 07/16/2024 12:00 PM EST Office Visit Gastroenterology, [facility] [address] [place] [address] Ricky Pichardo CRNP [address] [place] [address] 07/17/2024 1:40 PM EST Office Visit Family Practice [facility] [address] [facility] [place], [place] [address] Umair Gillis, [address] [facility] [place], [place] [address] 07/24/2024 12:50 PM EST Office Visit Dermatology [facility] [place] [address] [facility] [address] Bela Nevarez PA-C [address] [facility] [place] [address] 10/09/2024 1:30 PM EDT Office Visit Pulmonary Medicine, [facility] [address] [place] [address] Jt Leon MD [address] [place] [address] 12/04/2024 1:00 PM EDT Office Visit Family Practice [facility] [address] [facility] [place] [address] Umair Gillis DO [address] [facility] [place] [address] Scheduled Procedures Name Priority Associated Diagnoses Date/Ti me COLONOSCOPY FLEXIBLE PROXIMAL DIAGNOSTIC Recall History of colon polyps Health Maintenance Due Date Last Done Comments Zoster Vaccines (1 of 2) 1992 DXA Scan 01/17/2019 01/18/2012, 06/2011, 10/21/2008, Additional history exists Adult Wellness Visit 11/22/2022 11/22/2021 COVID-19 Vaccine ( season) 2024 06/15/2021, 08/14/2020, 07/23/2020 TSH 04/26/2025 04/26/2024, 02/18, 11/29/2021, Additional history exists Depression Screening 04/30/2025 04/30/2024 O2 ASSESSMENT COMPLETED IN PAST YEAR FOR COPD 05/24/2025 05/24/2024 DTap/Tdap Vaccines (4 - Td or Tdap) 10/03/2032 10/03/2022, 04/25/2015, 08/30/2013, Additional history exists Pneumococcal Vaccine: 50+ Years Completed 10/22/2014, 04/25/2012, 04/11/2002 Colonoscopy Discontinued 01/31/2019, 01/17, 09/26/2013, Additional history exists RETIRED - COLONOSCOPY-EVERY 5 YRS AGES 18-100 Discontinued 01/31/2019, 01/31/2019, 09/26/2013, Additional history exists Influenza Vaccine (FLU shot) Completed 03/05/2024, 03/05/2024, 03/14/2023, Additional history exists Alpha-1 Antitrypsin Discontinued HPV (Gardasil) Vaccine Aged Out No lo nger eligible based on patient's age to complete this topic Hepatitis B Vaccine Aged Out No longe r eligible based on patient's age to complete this topic MENINGOCOCCAL (MENACTRA/MENVEO) Aged Out No longer eligible based on patient's age to complete this topic documented as of this encounter Medical Devices Implanted Type Area Retail Leader Device Identifier Shelf Expiration Date Model / Serial / Lot Clip Quick 2.8mm 230cm - [id number] Implanted:Qty: 2 on 01/31/2019 by Rebecca Ayala DO at ENDOSCOPY [facility] [address] [employer] 06/18/2021 [id number] / / documented as of this encounter Care Teams Color Worker Relationship Specialty Start Date End Date Umair Gillis DO [address] [place] [address] PCP - General Family Medicine 12/16/16 documented as of this encounter
--- OUTSIDE RECORDS SUMMARY | 2024-07-19 23:03 | External Medical Summary | Summary of Care ---
Author Name Unknown Organization [facility] Address [address] [facility] [place] [address] Phone [phone] Care Team Providers Care Press Operator Apprentice Name Role Phone Umair Gillis DO Primary Care Provider Reason for Visit * Reason Onset Date Comments Home Health 07/10/2024 Encounter Details Date Type Department Care Team (Late st Contact Info) Description 07/10/[address] [facility] [address] [facility] [place] [address] Umair Gillis DO [address] [facility] [place] [address] Home Health Allergies Active Allergy Reactions Criticality Noted Date [...] as of this encounter (statuses as of 07/10/2024) Medications ASPIRIN 81 MG PO TABSIndications:ta kes 3x a week Take by mouth. Indications: takes 3x a week Active triamcinolone acetonide (ARISTOCORT) 0.1 % cream Apply topically to affected area 2 times a day. To affected area. 60 g 5 8 Active oxygen IN GASIndications:ILD (interstitial lung disease) ([facility]),Moderate persistent asthma without complication,Chron ic respiratory failure with hypoxia ([facility]) Use 2 LPM with exertion. 1 [...] PD, group C, by GOLD 2017 classification ([facility]),Chronic diastolic CHF (congestive heart failure) ([facility]),Moderate persistent asthma without complication Inhale 1 Puff by mouth every 4 hours as needed for Wheezing. 15 g 12 3 Active Ventolin HFA 108 (90 Base) MCG/ACT Inhalation Aerosol Solution Inhale 2 Puffs by mouth every 4 hours as needed for Wheezing. 18 g 3 3 Active Furosemide 40 MG Oral Tablet (Lasix)Indications :Chronic diastolic CHF (congestive heart failure) ([facility]) Take one tablet in the morning [...] as of this encounter (statuses as of 07/10/2024) Active Problems Problem Noted Date Diagnosed Date [...] as of this encounter (statuses as of 07/10/2024) Resolved Problems Problem Noted Date Diagnosed Date [...] as of this encounter (statuses as of 07/10/2024) Immunizations Name Administration Dates Next Due COVID-19 mRNA, LNP-s, No Pre serve, 2-Dose Series (DWNLD) 06/15/2021,08/14/2020,07/23/2020 Pneumococcal Conjugate Vacc, 13 Valent (Prevnar) 10/22/2014 Pneumococcal Polysaccharide PPV23 (Pneumovax) 04/25/2012,04/11/2002 04/11/2012 Season Influenza, Quad, PF, Adjuvanted, 65+ Yrs, IM (FLUAD) 04/15/2020 Seasonal Influenza Vac., MDV , IM, 0.5 mL (Fluzone) 04/02/2014,03/15/2013,03/13/2012,03/19,03/10/2010,02/27/2009,03/27/20 08,06/27/2007,06/01/2006,04/11/2005,1 08/17/2003,05/08/2003,04/11/2002 04/11/2003 Seasonal Influenza Virus Vac cine, Unspecified Formulation 04/15/2020,02/27/2019,03/20/2018,03/19,06/01/2016,04/02/2014,03/15/20 13,03/13/2012,03/31/2011,03/10/2010,0 02/27/2009,03/27/2008,06/27/2007,06/01,04/11/2005,06/16/2004, 3,04/11/2002 Seasonal Influenza, High Dos e, Trivalent, PF, [...] 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 * Telephone Encounter - Odalys Garcia LPN - 07/10/2024 1:08 PM EST HH Admission/Start of Care Admission/Start of Care: kathya Eller Calling from: [facility] Patient was Admitted to: [facility] , for: Pneumonia and CHF from 07/08 to 07/10 Referral ordered by: [facility] Referral received for: Shelter, PT, and OT Planned start of care date:Yes, Date within 48 hours of discharge They will call with any updates or additional concerns from the upcoming HH visit. Last Office Visit: 05/24/2024 Has patient been scheduled or seen in the office for a follow up visit: Needs contacted to schedulefollow up Advised that orders will be signed by Umair Gillis DO and to fax to the office for signature. [facility] * Telephone Encounter - Freddie Ron OSA - 07/10/2024 1:06 PM EST Reason for patient's call: Would like to speak with nurse. Caller was transferred to [facility] at the nurse line. * Telephone Encounter - Malou Kam OSA - 07/10/2024 9:11 AM EST [facility] of [facility] calling inquiring if pcp would follow with the patient in Home Health?Per Aggie pt will be discharged from Hospital today. Please advise. documented in this encounter Plan of Treatment Upcoming Encounters Date Type Department Care Team (Karlee Contact Info) Description 07/16/2024 12:00 PM EST Office Visit Gastroenterology, [facility] [address] [facility] [place] [address] Ricky Pichardo CRNP [address] [facility] [place] [address] 07/24/2024 12:50 PM EST Office Visit Dermatology [facility] [place] [address] [place] [address] Bela Nevarez PA-C [address] [place] [address] 10/09/2024 1:30 PM EDT Office Visit Pulmonary Medicine, [facility] [address] [facility] [place] [address] Jt Leon MD [address] [place] [facility] [place] [address] 12/04/2024 1:00 PM EDT Office Visit Family Practice [facility] [address] [place] [address] Umair Gillis DO [address] [place] [address] Scheduled Procedures Name Priority Associated Diagnoses Date/Ti [...] this encounter Medical Devices Implanted Type Area Scarifier Operator Device Identifier Shelf Expiration Date Model / Serial / Lot Clip Quick 2.8mm 230cm - [id number] Implanted:Qty: 2 on 01/31/2019 by Rebecca Ayala DO at ENDOSCOPY [facility] 06/18/2021 [id number] / / documented as of this encounter Care Teams Press Operator Apprentice Relationship Specialty Start Date End Date Umair Gillis DO [address] [place] [address] PCP - General Family Medicine 12/16/16 documented as of this encounter
--- OUTSIDE RECORDS SUMMARY | 2024-07-19 23:03 | External Medical Summary | Summary of Care ---
Author Name Unknown Organization [facility] Address [address] [place] [address] Phone [phone] Care Team Providers Care Hemstitcher Name Role Phone Umair Gillis Primary Care Provider Reason for Visit * Reason Onset Date Comments Appointment 07/16/2024 Barium swallow. Encounter Details Date Type Department Care Team (Late st Contact Info) Description 07/16/2024 Telephone Gastroenterology, [facility] [address] [facility] [place] [address] Tiffanie Wharton No Resource [address] [place] [address] Appointment (Barium swallow. ) Allergies Active Allergy Reactions Criticality Noted Date [...] as of this encounter (statuses as of 07/18/2024) Medications oxygen IN GASIndications:ILD (interstitial lung disease) ([facility]),Moderate persistent asthma without complication,Chron ic respiratory failure with hypoxia ([facility]) Use 2 LPM with exertion. 1 Each 2 Active Pantoprazole Sodium 40 MG Oral [...] for Wheezing. 18 g 3 3 Active Budesonide 0.5 MG/2ML Inhalation Suspension (Pulmicort)Indicat [...] before bedtime. 360 mL 3 4 Active Amitriptyline HCl 25 MG Oral Tablet (Elavil)Indication s:CIELO (generalized anxiety disorder) Take 1 Tablet by mouth at bedtime. 30 Tablet 5 4 Active Levothyroxine Sodium 125 MCG Oral Tablet (Levoxyl) Take 1 Tablet by mouth in the morning. (at least 30 min prior to breakfast or other meds). 90 Tablet 3 4 Active Eliquis 2.5 MG Oral Tablet Take 1 Tablet by mouth in the morning and 1 Tablet before bedtime. Active Mirtazapine 15 MG Oral Tablet (Remeron) TAKE 1 TABLET BY MOUTH IN THE EVENING 5 Active Potassium Chloride ER 10 MEQ Oral Capsule Extended Release TAKE 2 CAPSULES BY MOUTH ONCE DAILY FOR 7 DAYS 5 Active Sotalol HCl 120 MG Oral Tablet Take 1 Tablet by mouth in the morning and 1 Tablet before bedtime. 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 documented in this encounter Plan of Treatment Upcoming Encounters Date Type Department Care Team (Latest Contact Info) Description 07/24/2024 12:50 PM EST Office Visit Dermatology [facility] [place] [address] [place] [address] Bela Nevarez PA-C [address] [facility] [place] [address] 08/01/2024 12:55 PM EST Hospital Encounter OR [facility], Operating Room, [facility] - 4th Floor [address] [place] [phone] Rebecca Ayala, DO [address] [place] [address] 08/01/2024 12:55 PM EST - 08/01/2024 1:29 PM EST Surgery OR [facility], Operating Room, [facility] - 4th Floor [address] [place] [phone] Rebecca Ayala, DO [address] [place] [address] ESOPHAGOGASTRODUODENOSCOPY (EGD), FLEXIBLE, TRANSORAL, DIAGNOSTIC 10/09/2024 1:30 PM EDT Office Visit Pulmonary Medicine, [facility] [address] [place] [address] Jt Leon MD [address] [facility] [address] 12/04/2024 1:00 PM EDT Office Visit [facility] [address] [facility] [place] [address] Umair Gillis, DO [address] [facility] [place] [address] Scheduled Procedures Name Priority Associated Diagnoses Date/Ti me ESOPHAGOGASTRODUODENOSCOPY ( EGD), FLEXIBLE, TRANSORAL, DIAGNOSTIC Dysphagia Weight loss 08/01/2024 12:55 PM EST COLONOSCOPY FLEXIBLE PROXIMA L DIAGNOSTIC Recall History of colon polyps Health [...] this encounter Medical Devices Implanted Type Area Supervisor Computer Operations Device Identifier Shelf Expiration Date Model / Serial / Lot Clip Quick 2.8mm 230cm - [id number] Implanted:Qty: 2 on 01/31/2019 by Rebecca Ayala DO at ENDOSCOPY [facility] [employer] [facility] 06/18/2021 [id number] / / documented as of this encounter Care Teams Hemstitcher Relationship Specialty Start Date End Date Umair Gillis DO [address] [place] [address] PCP - General Family Medicine 12/16/16 documented as of this encounter
--- OUTSIDE RECORDS SUMMARY | 2024-07-19 23:03 | External Medical Summary ---
Author Name Unknown Address Unknown Organization K09:[facility] [place] [address] Laboratory Report Ordering Provider Test Date Status SOURAV MORRISON 07/17/2024 14:36:21 Final Observation Date Value Abnormality Reference (Units ) Status BUN 07/17/2024 14:36:21 23 Above high normal 6-20 (mg/dL) Final Creatinine 07/17/2024 14:36:21 1.3 Above high normal 0.5-1.0 (mg/dL) Final Glomerular filtration rate/1.73 sq M.predicted [Volume Rate/Area] in Serum, Plasma or Blood by Creatinine-based formula (CKD-EPI) 07/17/2024 14:36:21 42 Below low normal >=60 (mL/min) Final eGFR is calculated based on the CKD-EPI 2020 equation. Sodium 07/17/2024 14:36:21 138 135-146 (m mol/L) Final Potassium 07/17/2024 14:36:21 4.6 3.5-5.1 (m mol/L) Final Cl 07/17/2024 14:36:21 97 Below low normal 98- 107 (mmol/L) Final CO2 07/17/2024 14:36:21 29 22-32 (mmo l/L) Final Anion gap 07/17/2024 14:36:21 12 7-15 (mmol /L) Final Glucose 07/17/2024 14:36:21 110 70-120 (mg /dL) Final Calcium 07/17/2024 14:36:21 8.9 8.4-10.2 ( mg/dL) Final Performing Location [facility] [place] [address]
--- OUTSIDE RECORDS SUMMARY | 2024-07-19 23:03 | External Medical Summary ---
Author Name Unknown Address Unknown Organization K09:[place] [address] Laboratory Report Ordering Provider Test Date Status SOURAV MORRISON 07/17/2024 14:36:21 Final Observation Date Value Abnormality Reference (Units ) Status WBC, Total 07/17/2024 14:36:21 7.81 4.00-10.8 0 (K/uL) Final RBC 07/17/2024 14:36:21 3.80 3.85-5.15 (M/uL) Final Hemoglobin 07/17/2024 14:36:21 10.9 Below low normal 12 .0-15.3 (g/dL) Final HCT 07/17/2024 14:36:21 33.9 Below low normal 36. 0-45.2 (%) Final MCV 07/17/2024 14:36:21 89.2 81.5-97.5 (fL) Final MCH 07/17/2024 14:36:21 28.7 27.0-34.0 (pg) Final MCHC 07/17/2024 14:36:21 32.2 32.0-36.0 (g/dL) Final RDW 07/17/2024 14:36:21 14.3 11.5-15.5 (%) Final Platelets 07/17/2024 14:36:21 152 140-400 (K /uL) Final MPV 07/17/2024 14:36:21 11.6 6.6-11.1 ( fL) Final Performing Location [place] [address]
--- OUTSIDE RECORDS SUMMARY | 2024-07-19 23:03 | External Medical Summary | Summary of Care ---
Author Name Unknown Organization [facility] Address [address] [facility] [place] [address] Phone [phone] Care Team Providers Care Milling Machine Tender Name Role Phone Umair Gillis Primary Care Provider Reason for Visit * Reason Onset Date Comments Appointment 07/16/2024 egd Encounter Details Date Type Department Care Team (Late st Contact Info) Description 07/16/2024 Telephone Gastroenterology, [facility] [address] [place] [address] Ricky Pichardo CRNP [address] [place] [address] Appointment (egd) Allergies Active Allergy Reactions Criticality Noted Date [...] Medications oxygen IN GASIndications:ILD (interstitial lung disease) ([facility]),Moderate persistent asthma without complication,Chron ic respiratory failure with hypoxia ([facility]) Use 2 LPM with exertion. 1 Each [...] PD, group C, by GOLD 2017 classification ([facility]),Chronic diastolic CHF (congestive heart failure) ([facility]),Moderate persistent asthma without complication Inhale 1 Puff by mouth every 4 hours as needed for Wheezing. 15 g 12 3 Active Ventolin HFA 108 (90 Base) MCG/ACT Inhalation Aerosol Solution Inhale 2 Puffs by mouth every 4 hours as needed for Wheezing. 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 Please call SON Morris, to move up! Thank you! Olivia Desir RN Case Manager [facility] Internal Medicine/Family Practice [facility] [phone] * Telephone Encounter - Seema Burger, NIXON - 07/16/2024 1:28 PM EST Egd 3/10 * Telephone Encounter - Seema Burger, NIXON - 07/16/2024 1:22 PM EST Lm w/ pts spouse * Telephone Encounter - Lindy Zelaya OSA - 07/16/2024 12:43 PM EST Pt seen ricky today in office and is needing an egd done in the or due to lung and heart related issues. Please call pt son Morris to schedule procedure and will need office visit after procedure. documented in this encounter Plan of Treatment Upcoming Encounters Date Type Department Care Team (Latest Contact Info) Description 07/24/2024 12:50 PM EST Office Visit Dermatology [facility] [address] [facility] [place] [address] Bela Nevarez PA-C [address] [facility] [place] [address] 08/01/2024 12:55 PM EST Hospital Encounter OR [facility], Operating Room, [facility] - 4th Floor [address] [place] [address] [place] [phone] Rebecca Ayala, DO [address] [place] [address] 08/01/2024 12:55 PM EST - 08/01/2024 1:29 PM EST Surgery OR [facility], Operating Room, [facility] - 4th Floor [address] [place] [phone] Rebecca Ayala, DO [address] [place] [address] ESOPHAGOGASTRODUODENOSCOPY (EGD), FLEXIBLE, TRANSORAL, DIAGNOSTIC 10/09/2024 1:30 PM EDT Office Visit Pulmonary Medicine, [facility] [place] [address] Jt Leon MD [address] [place] [address] 12/04/2024 1:00 PM EDT Office Visit Family Practice [facility] [address] [facility] [place], [place] [address] Umair Gillis, DO [address] [facility] [place], [place] [address] Scheduled Procedures Name Priority Associated Diagnoses Date/Ti me ESOPHAGOGASTRODUODENOSCOPY ( EGD), FLEXIBLE, TRANSORAL, DIAGNOSTIC Dysphagia Weight loss 08/01/2024 12:55 PM EST COLONOSCOPY FLEXIBLE PROXIMA L DIAGNOSTIC Recall History of colon polyps Health Maintenance Due Date Last Done Comments Zoster Vaccines (1 of 2) 1992 DXA Scan 01/17/2019 01/18/2012, 080 06/2011, 10/21/2008, Additional history exists Adult Wellness [...] this encounter Medical Devices Implanted Type Area Financial Aid Director Device Identifier Shelf Expiration Date Model / Serial / Lot Clip Quick 2.8mm 230cm - [id number] Implanted:Qty: 2 on 01/31/2019 by Rebecca Ayala DO at ENDOSCOPY [facility] [employer] 06/18/2021 [id number]-[id number] / / documented as of this encounter Care Teams Milling Machine Tender Relationship Specialty Start Date End Date Umair Gillis DO [address] [place] [address] PCP - General Family Medicine 12/16/16 documented as of this encounter
--- OUTSIDE RECORDS SUMMARY | 2024-07-19 23:04 | External Medical Summary | Summary of Care ---
Author Name Unknown Organization [facility] Address [address] [facility] [address] Phone [phone] Care Team Providers Care Extender Name Role Phone Umair Gillis DO Primary Care Provider Encounter Details Date Type Department Care Team (Late st Contact Info) Description 07/08/2024 Population Health External Data Unspecified Department Allergies Active Allergy Reactions Criticality Noted Date [...] as of this encounter (statuses as of 07/08/2024) Medications ASPIRIN 81 MG PO TABSIndications:ta kes 3x a week Take by mouth. Indications: takes 3x a week Active triamcinolone acetonide (ARISTOCORT) 0.1 % cream Apply topically to affected area 2 times a day. To affected area. 60 g 5 8 Active oxygen IN GASIndications:ILD (interstitial lung disease) ([facility]),Moderate persistent asthma without complication,Chron ic respiratory failure with hypoxia ([facility]) Use 2 LPM with exertion. 1 Each [...] C, by GOLD 2017 classification ([facility]),Chronic diastolic CHF (congestive heart failure) ([facility]),Moderate persistent asthma without complication Inhale 1 Puff by mouth every 4 hours as needed for Wheezing. 15 g 12 3 Active Ventolin HFA 108 (90 Base) MCG/ACT Inhalation Aerosol Solution Inhale 2 Puffs by mouth every 4 hours as needed for Wheezing. 18 g 3 3 Active Furosemide 40 MG Oral Tablet (Lasix)Indications :Chronic diastolic CHF (congestive heart failure) ([facility]) Take one tablet in the morning and one in the mid afternoon 60 Tablet 11 4 Active Budesonide 0.5 MG/2ML Inhalation Suspension (Pulmicort)Indicat ions:Moderate persistent asthma without complication,ILD (interstitial lung disease) ([facility]) Inhale 0.5 mg via nebulizer in the [...] as of this encounter (statuses as of 07/08/2024) Active Problems Problem Noted Date Diagnosed Date [...] as of this encounter (statuses as of 07/08/2024) Resolved Problems Problem Noted Date Diagnosed Date [...] as of this encounter (statuses as of 07/08/2024) Immunizations Name Administration Dates Next Due COVID-19 mRNA, LNP-s, No Pre serve, 2-Dose Series ([employer]) 06/15/2021,08/14/2020,07/23/2020 Pneumococcal Conjugate Vacc, 13 Valent [...] 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 file Not on file [employer]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 file 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 Not on file Not on file documented as of this encounter Plan of Treatment Upcoming Encounters Date Type Department Care Team (Late st Contact Info) Description 07/10/2024 10:00 AM EST Office Visit Cardiology, [facility] [address] [facility] [place] [address] Rosemarie Beyer CRNP [address] [place] [address] [place] [address] 07/16/2024 12:00 PM EST Office Visit Gastroenterology, [facility] [address] [facility] [place] [address] Ricky Pichardo CRNP [address] [facility] [place] [address] 07/24/2024 12:50 PM EST Office Visit Dermatology [address] [place] [address] Bela Nevarez PA-C [address] [facility] [place] [address] 10/09/2024 1:30 PM EDT Office Visit Pulmonary Medicine, [facility] [address] [place] [address] Jt Leon MD [address] [facility] [place] [address] 12/04/2024 1:00 PM EDT Office Visit Family Practice [facility] [address] [facility] [place] [address] Umair Gillis, [address] [facility] [place] [address] Scheduled Procedures Name Priority Associated Diagnoses Date/Ti [...] this encounter Medical Devices Implanted Type Area Line Lead Device Identifier Shelf Expiration Date Model / Serial / Lot Clip Quick 2.8mm 230cm - [id number] Implanted:Qty: 2 on 01/31/2019 by Rebecca Ayala DO at ENDOSCOPY [facility] [employer] 06/18/2021 [id number] / / documented as of this encounter Care Teams Extender Relationship Specialty Start Date End Date Umair Gillis DO [address] [place] [address] PCP - General Family Medicine 12/16/16 documented as of this encounter
--- OUTSIDE RECORDS SUMMARY | 2024-07-19 23:04 | External Medical Summary | Continuity Of Care Document ---
Author Name Unknown Address [address] [address] Organization [facility] () Care Team Providers Care Behavioral Modification Assistant Name Role Phone DO Lopez Amy Primary Care Provider [phone] Allergies Allergy Reaction Start Date End Date Status IODINE Swelling Facial/tongue/throat/hands/f ruth/feet Active METHADONE Active PROPOXYPHENE Active SHELLFISH DERIVED Swelling Facial/tongue/throat/hands/f ruth/feet Active CLARITHROMYCIN Active PREDNISONE Active SEROTONIN 5HT-3 ANTAGONISTS Active MORPHINE Active Medications Medication Instructions Dosage Start Date End Date Status Order Date Drug Code Frequency Route of Admin Diagnosis Code Substitutions Allowed Tubersol 5 tub. unit/0.1 mL intradermal injection solution [Tuberculin PPD] 0.1 mL Intradermal At bedtime For PPD Step 1 GIVE on Day 1 and read results Day 3 0.1 mL 06/23 Inactiv e 2024 73581 07410 0 At bedtime Intrad ermal False Tubersol 5 tub. unit/0.1 mL intradermal injection solution [Tuberculin PPD] 0.1mL Intradermal Once daily For PPD 2nd Step Give 2nd Step PPD Day 1 and Read results Day 3 (schedule 7 days after 1st READ) 0.1mL 07/03 Inactiv e 2024 51144 21128 0 Once daily Intrad ermal False Tylenol 325 mg tablet 2 tabs By Mouth Every 4 hours as needed For Pain DO NOT EXCEED 3000 MG APAP/24 Hours 2 tabs 2024 Active 2024 26920 54311 0 Every 4 hours as needed By Mouth False Dulcolax (bisacodyl) 10 mg rectal suppository One Suppository per rectum PRN if Milk of Magnisia ineffective. Give on day 5 of no BM 1 sup 2024 Active 2024 01990 63947 1 Daily as needed Rectal False Fleet Enema 19 gram-7 gram/118 mL Administer per rectum PRN one time if dulcolax suppository not effective. Give on day 6 of no BM 1 2024 Active 2024 02779 61343 6 Daily as needed Rectal False Tylenol 325 mg tablet 2 tabs By Mouth Every 4 hours as needed For Fever >100 DO NOT EXCEED 3000 MG APAP/24 Hours 2 tabs 2024 Active 2024 15782 15441 0 Every 4 hours as needed By Mouth False Eliquis 5 mg tablet 5 mg By Mouth Twice daily For afib 5 mg 2024 Active 2024 45953 16336 1 Twice daily By Mouth False Ferrous sulfate 325 mg (65 mg iron) tablet [generic] 325 mg By Mouth Once daily For supplement 325 mg 2024 Active 2024 78021 77627 5 Once daily By Mouth False Magnesium oxide 400 mg (241.3 mg magnesium) tablet [generic] 400 mg By Mouth Once daily For supplement 400 mg 2024 Active 2024 83131 72824 2 Once daily By Mouth False Protonix 40 mg tablet,bozena yed release 40 mg By Mouth Once daily For GERD 40 mg 2024 Active 2024 01675 64697 1 Once daily By Mouth False Sotalol 120 mg tablet [generic] 120 mg By Mouth Twice daily For SVT 120 mg 2024 Active 2024 81659 81131 1 Twice daily By Mouth False Rosuvastati n 20 mg tablet [generic] 20 mg By Mouth Once daily For HLD 20 mg 2024 Active 2024 64123 21606 0 Once daily By Mouth False Arformotero l 15 mcg/2 mL solution for nebulizatio n [generic] 15 mcg Inhalation Twice daily For copd/asthma/ interstitial lung disease 15 mcg 06/20 Inactiv e 2024 82486 90609 0 Twice daily Inhala tion False Budesonide 0.5 mg/2 mL suspension for nebulizatio n [generic] 0.5 mg Inhalation Twice daily For copd/ asthma/ interstital lung disease 0.5 mg 2024 Active 2024 16239 42308 8 Twice daily Inhala tion False Furosemide 40 mg tablet [generic] 40 mg By Mouth Once daily For chronic diastolic CHF 40 mg 07/04 Inactiv e 2024 29045 04295 0 Once daily By Mouth False Furosemide 40 mg tablet [generic] 40 mg By Mouth Once daily For chronic diastolic CHF 40 mg 07/04 Inactiv e 2024 58852 25821 0 Once daily By Mouth False Ventolin HFA 90 mcg/actuati on aerosol inhaler 2 puff Inhalation Every 6 hours as needed For SOB/ wheeze 2 puff 2024 Active 2024 60403 65577 0 Every 6 hours as needed Inhala tion False Amitriptyli ne 25 mg tablet [generic] 25 mg By Mouth At bedtime For general anxiety disorder 25 mg 06/26 Inactiv e 2024 87192 86566 1 At bedtime By Mouth False Levothyroxi ne 125 mcg tablet [generic] 125 mcg By Mouth Once daily For hypothyroidis m 125 mcg 2024 Active 2024 43485 36080 0 Once daily By Mouth False Arformotero l 15 mcg/2 mL solution for nebulizatio n [generic] 06/20 Inactiv e 2024 30336 27427 0 Arformotero l 15 mcg/2 mL solution for nebulizatio n [generic] 15 mcg Inhalation Twice daily For copd/asthma/ interstitial lung disease 15 mcg 2024 Active 2024 91628 57951 0 Twice daily Inhala tion False Clonazepam 0.5 mg tablet [generic] 0.5mg By Mouth As Needed q12 hour PRN For anxiety 0.5mg 06/28 Inactiv e 2024 55267 04864 0 By Mouth False Colace 100 mg capsule 100 mg By Mouth Twice daily For Constipation 100 mg 2024 Active 2024 81645 51004 1 Twice daily By Mouth False Boost 0.04 gram-1 kcal/mL oral liquid 1 carton By Mouth 3 times a day For malnutrition 1 carton 06/27 Inactiv e 2024 58381 19300 9 3 times a day By Mouth False Amitriptyli ne 10 mg tablet [generic] 10mg By Mouth At bedtime along with 25 mg dose to equal 35mg For anxiety 10mg 2024 Active 2024 35980 64006 1 At bedtime By Mouth False Amitriptyli ne 25 mg tablet [generic] 06/26 Inactiv e 2024 47977 65999 1 Amitriptyli ne 25 mg tablet [generic] 25 mg By Mouth At bedtime Along with 10mg to equal 35mg. for anxiety 25 mg 2024 Active 2024 80631 10214 1 At bedtime By Mouth False Boost Breeze Nutritional 0.04 gram-1.05 kcal/mL oral liquid 237 ml By Mouth Twice daily Boost Breeze 237 ml oral liquids For Early satiety, low average meal intake - please record number of mL consumed 237 ml 07/02 Inactiv e 2024 00044 68122 1 Twice daily By Mouth False Prosource 10 gram-100 kcal/30 mL oral liquid [Amino ac-protein hydr-whey pro] 30 mL By Mouth Once daily Prosource 1 oz (30 mL) oral liquid For Help promote skin integrity - please record number of mL consumed 30 mL 2024 Active 2024 Once daily By Mouth False Clonazepam 0.5 mg tablet [generic] 0.5mg By Mouth As Needed q12 hour PRN For anxiety 0.5mg 2024 Active 2024 86610 83830 0 By Mouth False Ensure clear oral liquid [Food supplemt, lactose-red uced] 120mL By Mouth Once daily For supplement 120mL 2024 Active 2024 Once daily By Mouth False Furosemide 40 mg tablet [generic] 40 mg By Mouth Twice daily For UNSPECIFIED SYSTOLIC (CONGESTIVE) HEART FAILURE 40 mg 2024 Active 2024 02814 73970 0 Twice daily By Mouth I50.20 False Betadine Swabsticks 10 % 1 scott Topical Twice daily to bilateral heels For stage 2 pressure injury 1 scott 2024 Active 2024 56951 36128 1 Twice daily Topica l False Problems Code Description Start Date End Date Status R00.0 Tachycardia, unspecified 06/20/2024 Active N17.9 Acute kidney failure, unspecified 06/20/2024 Active E87.6 Hypokalemia 06/20/2024 Active E03.9 Hypothyroidism, unspecified 06/20/2024 00 Active E78.5 Hyperlipidemia, unspecified 06/20/2024 Active C73. Malignant neoplasm of thyroid gland 06/20/2024 Active J96.11 Chronic respiratory failure with hypoxia 2024 Active J44.9 Chronic obstructive pulmonary disease, unspecified 06/20/2024 Active Z99.81 Dependence on supplemental oxygen 06/20/2024 Active J45.40 Moderate persistent asthma, uncomplicated 06/20 Active I50.20 Unspecified systolic (congestive) heart failure 06/20/2024 Active K21.9 Gastro-esophageal re flux disease without esophagitis 06/20/2024 Active H81.393 Other peripheral vertigo, bilateral 06/20/2024 Active I10. Essential (primary) hypertension 06/20/2024 Active G47.30 Sleep apnea, unspecified 06/20/2024 Active L89.612 Pressure ulcer of right heel, stage 2 Active L89.622 Pressure ulcer of left heel, stage 2 06/20/2024 Active I48.0 Paroxysmal atrial fibrillation 06/20/2024 Active VITAL SIGNS Date Time Diastolic blood pressure Systolic blood pressure Body height Body weight Temperature SpO2 Blood Sugar Pulse Respirations 01899 102 34180 9 83.00 mm[Hg] - Lying Down 170.00 mm[Hg] - Lying Down 98.20 Forehead Scan 98.00 % 86.00/ min 18.00/min 04291 102 92799 4 83.00 mm[Hg] - Sitting 170.00 mm[Hg] - Sitting 98.20 Tympanic 86.00/ min 18.00/min 88772 103 38080 5 98.20 Tympanic 09873 103 34080 3 80.00 mm[Hg] - Lying Down 164.00 mm[Hg] - Lying Down 91.00/ min 20.00/min 96850 103 06215 0 80.00 mm[Hg] - Sitting 164.00 mm[Hg] - Sitting 98.20 Tympanic 91.00/ min 18.00/min 54632 103 08404 7 91.00 % 20.00/min 18889 103 85505 3 94.00 % 18.00/min 77310 103 84117 9 05214 104 03308 6 80.00 mm[Hg] - Sitting 140.00 mm[Hg] - Sitting 98.10 Tympanic 94.00 % 64.00/ min 18.00/min 69988 104 34142 1 80.00 mm[Hg] - Sitting 140.00 mm[Hg] - Sitting 98.10 Tympanic 64.00/ min 18.00/min 51699 104 04616 0 80.00 mm[Hg] - Sitting 140.00 mm[Hg] - Sitting 98.10 Tympanic 64.00/ min 18.00/min 20678 104 71509 7 73.00 mm[Hg] - Sitting 136.00 mm[Hg] - Sitting 97.90 Forehead Scan 95.00 % 74.00/ min 16.00/min 60370 104 71596 8 73.00 mm[Hg] - Sitting 135.00 mm[Hg] - Sitting 98.20 Tympanic 74.00/ min 18.00/min 75819 104 09281 6 95.00 % 18.00/min 79046 104 92188 6 96.00 % 18.00/min 40963 104 83331 4 94.00 % 18.00/min 03633 104 23136 0 18.00/mi n 96644 105 73391 0 73.00 mm[Hg] - Sitting 135.00 mm[Hg] - Sitting 98.20 Tympanic 74.00/ min 18.00/min 31708 105 55058 6 73.00 mm[Hg] - Sitting 135.00 mm[Hg] - Sitting 98.20 Tympanic 74.00/ min 20.00/min 80199 105 34356 3 53.00 mm[Hg] - Sitting 126.00 mm[Hg] - Sitting 97.00 Tympanic 99.00 % 56.00/ min 20.00/min 48832 105 99680 6 93.00 % 20.00/min 36014 105 47493 8 94.00 % 20.00/min 86384 105 42094 3 97.00 % 18.00/min 18359 105 62132 9 96.00 % 18.00/min 03178 106 55561 0 67.00 mm[Hg] - Sitting 150.00 mm[Hg] - Sitting 98.80 Forehead Scan 97.00 % 58.00/ min 16.00/min 83398 107 87676 3 136.00 NI 37150 107 82346 0 59 NI 41037 107 80192 0 61.00 mm[Hg] - Sitting 144.00 mm[Hg] - Sitting 97.90 Tympanic 93.00 % 54.00/ min 16.00/min 29080 107 43470 1 95.00 % 18.00/min 79335 107 47619 0 18.00/mi n 70861 107 06391 6 63.00 mm[Hg] - Sitting 159.00 mm[Hg] - Sitting 60.00/ min 41646 107 79473 6 94.00 % 18.00/min 90447 107 89558 3 95.00 % 18.00/min 54457 108 35883 0 55.00 mm[Hg] - Sitting 127.00 mm[Hg] - Sitting 97.80 Tympanic 95.00 % 55.00/ min 16.00/min 64748 108 17805 8 96.00 % 72394 108 77554 4 95.00 % 20.00/min 87826 108 88439 0 96.00 % 20.00/min 20507 108 39913 2 96.00 % 20.00/min 09393 109 37654 0 63.00 mm[Hg] - Sitting 131.00 mm[Hg] - Sitting 98.70 Tympanic 96.00 % 54.00/ min 18.00/min 59452 109 18118 8 94.00 % 18.00/min 92736 109 69472 2 18.00/mi n 10351 109 50586 5 97.00 % 18.00/min 18534 109 90358 2 96.00 % 18.00/min 53390 110 81962 0 55.00 mm[Hg] - Lying Down 137.00 mm[Hg] - Lying Down 97.00 Tympanic 93.00 % 63.00/ min 20.00/min 27428 110 58302 6 94.00 % 18.00/min 00616 110 56294 8 94.00 % 18.00/min 35926 110 41350 0 74.00 mm[Hg] - Sitting 161.00 mm[Hg] - Sitting 56.00/ min 74969 110 21168 1 94.00 % 18.00/min 57100 110 40658 6 18.00/mi n 18155 111 16990 9 74.00 mm[Hg] - Sitting 161.00 mm[Hg] - Sitting 97.80 Tympanic 92.00 % 56.00/ min 16.00/min 32289 111 42986 5 94.00 % 18.00/min 14716 111 33899 5 94.00 % 18.00/min 26942 111 08770 4 95.00 % 18.00/min 84143 111 84949 3 18.00/mi n 94096 112 95642 0 58.00 mm[Hg] - Sitting 138.00 mm[Hg] - Sitting 98.20 Tympanic 92.00 % 55.00/ min 16.00/min 67845 112 21401 7 95.00 % 20.00/min 90292 112 85211 7 95.00 % 20.00/min 33934 112 05972 5 95.00 % 18.00/min 62668 112 78991 0 18.00/mi n 44317 113 58926 0 50.00 mm[Hg] - Sitting 110.00 mm[Hg] - Sitting 97.70 Forehead Scan 94.00 % 54.00/ min 20.00/min 07744 113 07557 1 95.00 % 18.00/min 82342 113 90801 2 96.00 % 18.00/min 81179 113 07216 0 95.00 % 15.00/min 53950 113 15912 4 95.00 % 18.00/min 76796 114 35342 6 55.00 mm[Hg] - Sitting 103.00 mm[Hg] - Sitting 97.50 Forehead Scan 91.00 % 55.00/ min 20.00/min 39125 114 67674 7 96.00 % 18.00/min 29109 114 24996 8 94.00 % 18.00/min 31371 114 03615 3 96.00 % 18.00/min 12896 114 48977 9 96.00 % 18.00/min 13987 114 73698 3 60.00 mm[Hg] - Sitting 110.00 mm[Hg] - Sitting 60.00/ min 80521 115 51219 0 66.00 mm[Hg] - Sitting 131.00 mm[Hg] - Sitting 97.90 Tympanic 95.00 % 71.00/ min 18.00/min 13160 115 43911 0 66.00 mm[Hg] - Sitting 125.00 mm[Hg] - Sitting 98.00 Tympanic 92.00 % 60.00/ min 16.00/min 01259 115 93737 1 96.00 % 18.00/min 43613 115 40521 5 94.00 % 18.00/min 23437 115 02763 0 95.00 % 18.00/min 67799 115 42621 7 95.00 % 18.00/min 84853 115 23086 7 78.00 mm[Hg] - Sitting 132.00 mm[Hg] - Sitting 64.00/ min 05753 116 47858 0 66.00 mm[Hg] - Sitting 121.00 mm[Hg] - Sitting 98.20 Tympanic 94.00 % 57.00/ min 16.00/min 67103 116 95.00 % 18.00/min 27316 116 84332 0 88.00 % 18.00/min 92697 116 97143 6 88.00 % 18.00/min 60682 116 17304 3 18.00/mi n 95885 116 01726 8 18.00/mi n 28309 116 09912 0 95.00 % 18.00/min 58303 117 95686 6 57.00 mm[Hg] - Sitting 132.00 mm[Hg] - Sitting 97.00 Tympanic 95.00 % 60.00/ min 18.00/min 45703 117 85190 2 94.00 % 18.00/min 67302 117 96090 3 93.00 % 20.00/min 35573 117 56711 8 94.00 % 20.00/min 66192 117 64059 2 94.00 % 18.00/min 18544 117 00389 1 18.00/mi n 69378 118 46858 8 135.40 NI 03386 118 09630 6 66.00 mm[Hg] - Sitting 112.00 mm[Hg] - Sitting 97.50 Tympanic 95.00 % 57.00/ min 16.00/min 93415 118 15468 0 92.00 % 18.00/min 57258 118 47220 4 94.00 % 18.00/min 80088 118 80307 5 18.00/mi n 64674 119 44108 9 97.00 % 61.00/ min 16.00/min 50706 119 38172 7 97.00 % 61.00/ min 16.00/min 33587 119 79331 0 16.00/mi n 11589 119 03299 4 16.00/mi n 79984 119 81551 0 94.00 % 18.00/min 00942 119 35921 8 18.00/mi n Immunizations Vaccine Date Status Other 06/20/2024 Completed
--- OUTSIDE RECORDS SUMMARY | 2024-07-19 23:04 | External Medical Summary | Summary of Care ---
Author Name Unknown Organization [facility] Address [address] [facility] [place] [address] Phone [phone] Care Team Providers Care Link Trainer Teacher Name Role Phone Umair Gillis DO Primary Care Provider Reason for Visit * Reason Onset Date Comments Home Health 07/10/2024 Encounter Details Date Type Department Care Team (Late st Contact Info) Description 07/10/2024 Telephone Family Practice [facility] [address] [facility] [place] [address] Umair Gillis DO [address] [facility] [place] [address] Home Health Allergies Active Allergy Reactions Criticality [...] IN GASIndications:ILD (interstitial lung disease) ([facility]),Moderate persistent asthma without complication,Chron ic respiratory failure with hypoxia ([facility]) Use 2 LPM with exertion. 1 [...] C, by GOLD 2017 classification ([facility]),Chronic diastolic CHF (congestive heart failure) ([facility]),Moderate persistent asthma without complication Inhale 1 Puff by mouth every 4 hours as needed for Wheezing. 15 g 12 3 Active Ventolin HFA 108 (90 Base) MCG/ACT Inhalation Aerosol Solution Inhale 2 Puffs by mouth every 4 hours as needed for Wheezing. 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 , for: Pneumonia and CHF from 07/08 to 07/10 Referral ordered by: [facility] Referral received for: Half-Way, PT, and OT Planned start of care [...] to fax to the office for signature. [facility] * Telephone Encounter - Freddie Ron OSA - 07/10/2024 1:06 PM EST Reason for patient's call: Would like to speak with nurse. Caller was transferred to Odalys at the nurse line. * Telephone Encounter - Malou Kam OSA - 07/10/2024 9:11 AM EST Aggie of [facility] calling inquiring if pcp would follow with the patient in Home Health?Per Aggie pt will be discharged from Hospital today. Please advise. documented in this encounter Plan of Treatment Upcoming Encounters Date Type Department Care Team (Late st Contact Info) Description 07/16/2024 12:00 PM EST Office Visit Gastroenterology, [facility] [address] [facility] [place] [address] Ricky Pichardo CRNP [address] [place] [address] 07/24/2024 12:50 PM EST [facility] [address] [facility] [place] [address] Bela Nevarez PA-C [address] [facility] [place] [address] 10/09/2024 1:30 PM EDT Office Visit Pulmonary Medicine, [facility] [address] [place] [address] Jt Leon MD [address] [place] [address] 12/04/2024 1:00 PM EDT Office Visit Family Practice [facility] [address] [facility] [place] [address] Umair Gillis DO [address] [facility] [place] [address] Scheduled Procedures Name Priority Associated Diagnoses Date/Ti [...] this encounter Medical Devices Implanted Type Area Conventional Underwriter Device Identifier Shelf Expiration Date Model / Serial / Lot Clip Quick 2.8mm 230cm - [id number] Implanted:Qty: 2 on 01/31/2019 by Rebecca Ayala DO at [facility] [employer] 06/18/2021 [id number] / / documented as of this encounter Care Teams Link Trainer Teacher Relationship Specialty Start Date End Date Umair Gillis DO [address] [place] [address] PCP - General Family Medicine 12/16/16 documented as of this encounter
--- OUTSIDE RECORDS SUMMARY | 2024-07-19 23:04 | External Medical Summary | Summary of Care ---
Author Name Unknown Organization [facility] Address [address] [facility] [place] [address] Phone [phone] Care Team Providers Care Senior Materials Analyst Name Role Phone Umair Gillis DO Primary Care Provider Reason for Visit * Reason Onset Date Comments Home Health 07/10/2024 Encounter Details Date Type Department Care Team (Late st Contact Info) Description 07/10/2024 Telephone Family Practice [facility] [address] [facility] [place] [address] Umair Gillis DO [address] [facility] [place] [address] Home Health Allergies Active Allergy Reactions Criticality [...] Active oxygen IN GASIndications:ILD (interstitial lung disease) ([facility]),Moderate persistent asthma without complication,Chron ic respiratory failure with hypoxia ([facility]) Use 2 LPM with exertion. 1 Each [...] PD, group C, by GOLD 2017 classification ([facility]),Chronic diastolic CHF (congestive heart failure) ([facility]),Moderate persistent asthma without complication Inhale 1 Puff by mouth every 4 hours as needed for Wheezing. 15 g 12 3 Active Ventolin HFA 108 (90 Base) MCG/ACT Inhalation Aerosol Solution Inhale 2 Puffs by mouth every 4 hours as needed for Wheezing. 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 [facility] * Telephone Encounter - Freddie Ron OSA - 07/10/2024 1:06 PM EST Reason for patient's call: Would like to speak with nurse. Caller was transferred to Odalys at the nurse line. * Telephone Encounter - Malou Kam OSA - 07/10/2024 9:11 AM EST Aggie of [facility] calling inquiring if pcp would follow with the patient in Home Health?Per Aggie pt will be discharged from Hospital today. Please advise. documented in this encounter Plan of Treatment Upcoming Encounters Date Type Department Care Team (Late st Contact Info) Description 07/16/2024 12:00 PM EST Office Visit [facility]enterology, [facility] [address] [facility] [place] [address] Ricky Pichardo CRNP [address] [place] [address] 07/24/2024 12:50 PM EST [facility] [address] [facility] [place] [address] Bela Nevarez PA-C [address] [facility] [place] [address] 10/09/2024 1:30 PM EDT Office Visit Pulmonary Medicine, [facility] [address] [place] [address] Jt Leon MD [address] [place] [address] 12/04/2024 1:00 PM EDT Office Visit Family Practice [facility] [address] [facility] [place] [address] Umair Gillis DO [address] [facility] [place] [address] Scheduled Procedures Name Priority Associated Diagnoses Date/Ti [...] this encounter Medical Devices Implanted Type Area Pie Crimping Machine Operator Device Identifier Shelf Expiration Date Model / Serial / Lot Clip Quick 2.8mm 230cm - [id number] Implanted:Qty: 2 on 01/31/2019 by Rebecca Ayala DO at [facility] [employer] 06/18/2021 [id number] / documented as of this encounter Care Teams Senior Materials Analyst Relationship Specialty Start Date End Date Umair Gillis DO [address] [place] [address] PCP - General Family Medicine 12/16/16 documented as of this encounter
--- OUTSIDE RECORDS SUMMARY | 2024-07-19 23:04 | External Medical Summary | Continuity Of Care Document ---
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 unit/0.1 mL intradermal injection solution [Tuberculin PPD] 0.1mL Intradermal Once daily For PPD 2nd Step Give 2nd Step PPD Day 1 and Read results Day 3 (schedule 7 days after 1st READ) 0.1mL 07/03 Inactiv e 2024 78583 69484 0 Once daily Intrad ermal False Tylenol 325 mg tablet 2 tabs By Mouth Every 4 hours as needed For Pain DO NOT EXCEED 3000 MG APAP/24 Hours 2 tabs 2024 Active 2024 58483 40641 0 Every 4 hours as needed By Mouth False Dulcolax (bisacodyl) 10 mg rectal suppository One Suppository per rectum PRN if Milk of Magnisia ineffective. Give on day 5 of no BM 1 sup 2024 Active 2024 36595 15620 1 Daily as needed Rectal False Fleet Enema 19 gram-7 gram/118 mL Administer per rectum PRN one time if dulcolax suppository not effective. Give on day 6 of no BM 1 2024 Active 2024 26863 45663 6 Daily as needed Rectal False Tylenol 325 mg tablet 2 tabs By Mouth Every 4 hours as needed For Fever >100 DO NOT EXCEED 3000 MG APAP/24 Hours 2 tabs 2024 Active 2024 10258 85608 0 Every 4 hours as needed By Mouth False Eliquis 5 mg tablet 5 mg By Mouth Twice daily For afib 5 mg 2024 Active 2024 22717 83414 1 Twice daily By Mouth False Ferrous sulfate 325 mg (65 mg iron) tablet [generic] 325 mg By Mouth Once daily For supplement 325 mg 2024 Active 2024 41854 08008 5 Once daily By Mouth False Magnesium oxide 400 mg (241.3 mg magnesium) tablet [generic] 400 mg By Mouth Once daily For supplement 400 mg 2024 Active 2024 45455 95622 2 Once daily By Mouth False Protonix 40 mg tablet,bozena yed release 40 mg By Mouth Once daily For GERD 40 mg 2024 Active 2024 81715 39640 1 Once daily By Mouth False Sotalol 120 mg tablet [generic] 120 mg By Mouth Twice daily For SVT 120 mg 2024 Active 2024 83634 42298 1 Twice daily By Mouth False Rosuvastati n 20 mg tablet [generic] 20 mg By Mouth Once daily For HLD 20 mg 2024 Active 2024 18912 15644 0 Once daily By Mouth False Arformotero l 15 mcg/2 mL solution for nebulizatio n [generic] 15 mcg Inhalation Twice daily For copd/asthma/ interstitial lung disease 15 mcg 06/20 Inactiv e 2024 78633 01497 0 Twice daily Inhala tion False Budesonide 0.5 mg/2 mL suspension for nebulizatio n [generic] 0.5 mg Inhalation Twice daily For copd/ asthma/ interstital lung disease 0.5 mg 2024 Active 2024 28304 98327 8 Twice daily Inhala tion False Furosemide 40 mg tablet [generic] 40 mg By Mouth Once daily For chronic diastolic CHF 40 mg 07/04 Inactiv e 2024 95489 28866 0 Once daily By Mouth False Furosemide 40 mg tablet [generic] 40 mg By Mouth Once daily For chronic diastolic CHF 40 mg 07/04 Inactiv e 2024 61659 14846 0 Once daily By Mouth False Ventolin HFA 90 mcg/actuati on aerosol inhaler 2 puff Inhalation Every 6 hours as needed For SOB/ wheeze 2 puff 2024 Active 2024 94707 78892 0 Every 6 hours as needed Inhala tion False Amitriptyli ne 25 mg tablet [generic] 25 mg By Mouth At bedtime For general anxiety disorder 25 mg 06/26 Inactiv e 2024 36776 58569 1 At bedtime By Mouth False Levothyroxi ne 125 mcg tablet [generic] 125 mcg By Mouth Once daily For hypothyroidis m 125 mcg 2024 Active 2024 69399 15721 0 Once daily By Mouth False Arformotero l 15 mcg/2 mL solution for nebulizatio n [generic] 06/20 Inactiv e 2024 04979 60247 0 Arformotero l 15 mcg/2 mL solution for nebulizatio n [generic] 15 mcg Inhalation Twice daily For copd/asthma/ interstitial lung disease 15 mcg 2024 Active 2024 10982 78746 0 Twice daily Inhala tion False Clonazepam 0.5 mg tablet [generic] 0.5mg By Mouth As Needed q12 hour PRN For anxiety 0.5mg 06/28 Inactiv e 2024 99406 96629 0 By Mouth False Colace 100 mg capsule 100 mg By Mouth Twice daily For Constipation 100 mg 2024 Active 2024 55771 99647 1 Twice daily By Mouth False Boost 0.04 gram-1 kcal/mL oral liquid 1 carton By Mouth 3 times a day For malnutrition 1 carton 06/27 Inactiv e 2024 21889 84799 9 3 times a day By Mouth False Amitriptyli ne 10 mg tablet [generic] 10mg By Mouth At bedtime along with 25 mg dose to equal 35mg For anxiety 10mg 2024 Active 2024 60432 77025 1 At bedtime By Mouth False Amitriptyli ne 25 mg tablet [generic] 06/26 Inactiv e 2024 44913 63587 1 Amitriptyli ne 25 mg tablet [generic] 25 mg By Mouth At bedtime Along with 10mg to equal 35mg. for anxiety 25 mg 2024 Active 2024 59282 84194 1 At bedtime By Mouth False Boost Breeze Nutritional 0.04 gram-1.05 kcal/mL oral liquid 237 ml By Mouth Twice daily Boost Breeze 237 ml oral liquids For Early satiety, low average meal intake - please record number of mL consumed 237 ml 07/02 Inactiv e 2024 58202 06222 1 Twice daily By Mouth False Prosource [...] PRN For anxiety 0.5mg 2024 Active 2024 17035 53227 0 By Mouth False Ensure clear oral liquid [Food supplemt, lactose-red uced] 120mL By Mouth Once daily For supplement 120mL 2024 Active 2024 Once daily By Mouth False Furosemide 40 mg tablet [generic] 40 mg By Mouth Twice daily For UNSPECIFIED SYSTOLIC (CONGESTIVE) HEART FAILURE 40 mg 2024 Active 2024 65550 90721 0 Twice daily By Mouth I50.20 False Betadine Swabsticks 10 % 1 scott Topical Twice daily to bilateral heels For stage 2 pressure injury 1 scott 2024 Active 2024 42147 37587 1 Twice daily Topica l False Problems [...] weight Temperature SpO2 Blood Sugar Pulse Respirations 95951 102 81856 9 83.00 mm[Hg] - Lying Down 170.00 mm[Hg] - Lying Down 98.20 Forehead Scan 98.00 % 86.00/ min 18.00/min 19924 102 66732 4 83.00 mm[Hg] - Sitting 170.00 mm[Hg] - Sitting 98.20 Tympanic 86.00/ min 18.00/min 34110 103 82041 5 98.20 Tympanic 73429 103 88884 3 80.00 mm[Hg] - Lying Down 164.00 mm[Hg] - Lying Down 91.00/ min 20.00/min 01341 103 69204 0 80.00 mm[Hg] - Sitting 164.00 mm[Hg] - Sitting 98.20 Tympanic 91.00/ min 18.00/min 64985 103 68322 7 91.00 % 20.00/min 57499 103 61558 3 94.00 % 18.00/min 36851 103 49496 9 75435 104 78983 6 80.00 mm[Hg] - Sitting 140.00 mm[Hg] - Sitting 98.10 Tympanic 94.00 % 64.00/ min 18.00/min 14639 104 54641 1 80.00 mm[Hg] - Sitting 140.00 mm[Hg] - Sitting 98.10 Tympanic 64.00/ min 18.00/min 66371 104 85549 0 80.00 mm[Hg] - Sitting 140.00 mm[Hg] - Sitting 98.10 Tympanic 64.00/ min 18.00/min 88647 104 78880 7 73.00 mm[Hg] - Sitting 136.00 mm[Hg] - Sitting 97.90 Forehead Scan 95.00 % 74.00/ min 16.00/min 86582 104 47653 8 73.00 mm[Hg] - Sitting 135.00 mm[Hg] - Sitting 98.20 Tympanic 74.00/ min 18.00/min 61958 104 56546 6 95.00 % 18.00/min 82684 104 20186 6 96.00 % 18.00/min 62900 104 74194 4 94.00 % 18.00/min 00745 104 14151 0 18.00/mi n 26576 105 27301 0 73.00 mm[Hg] - Sitting 135.00 mm[Hg] - Sitting 98.20 Tympanic 74.00/ min 18.00/min 78960 105 89017 6 73.00 mm[Hg] - Sitting 135.00 mm[Hg] - Sitting 98.20 Tympanic 74.00/ min 20.00/min 94546 105 96312 3 53.00 mm[Hg] - Sitting 126.00 mm[Hg] - Sitting 97.00 Tympanic 99.00 % 56.00/ min 20.00/min 22736 105 25605 6 93.00 % 20.00/min 39009 105 80600 8 94.00 % 20.00/min 78805 105 15987 3 97.00 % 18.00/min 15834 105 37417 9 96.00 % 18.00/min 38293 106 64197 0 67.00 mm[Hg] - Sitting 150.00 mm[Hg] - Sitting 98.80 Forehead Scan 97.00 % 58.00/ min 16.00/min 23753 107 70509 3 136.00 NI 19807 107 14042 0 59 NI 53147 107 81031 0 61.00 mm[Hg] - Sitting 144.00 mm[Hg] - Sitting 97.90 Tympanic 93.00 % 54.00/ min 16.00/min 76234 107 68384 1 95.00 % 18.00/min 93045 107 25427 0 18.00/mi n 17562 107 58661 6 63.00 mm[Hg] - Sitting 159.00 mm[Hg] - Sitting 60.00/ min 40250 107 28243 6 94.00 % 18.00/min 60562 107 51696 3 95.00 % 18.00/min 36479 108 08764 0 55.00 mm[Hg] - Sitting 127.00 mm[Hg] - Sitting 97.80 Tympanic 95.00 % 55.00/ min 16.00/min 57415 108 34972 8 96.00 % 26377 108 56409 4 95.00 % 20.00/min 01642 108 30274 0 96.00 % 20.00/min 92495 108 50538 2 96.00 % 20.00/min 70725 109 11546 0 63.00 mm[Hg] - Sitting 131.00 mm[Hg] - Sitting 98.70 Tympanic 96.00 % 54.00/ min 18.00/min 52797 109 59107 8 94.00 % 18.00/min 19118 109 72295 2 18.00/mi n 74431 109 46201 5 97.00 % 18.00/min 30642 109 61747 2 96.00 % 18.00/min 00316 110 87867 0 55.00 mm[Hg] - Lying Down 137.00 mm[Hg] - Lying Down 97.00 Tympanic 93.00 % 63.00/ min 20.00/min 79767 110 90681 6 94.00 % 18.00/min 18797 110 64265 8 94.00 % 18.00/min 37707 110 75922 0 74.00 mm[Hg] - Sitting 161.00 mm[Hg] - Sitting 56.00/ min 63910 110 84638 1 94.00 % 18.00/min 65034 110 40016 6 18.00/mi n 09945 111 27784 9 74.00 mm[Hg] - Sitting 161.00 mm[Hg] - Sitting 97.80 Tympanic 92.00 % 56.00/ min 16.00/min 35542 111 89185 5 94.00 % 18.00/min 55882 111 50700 5 94.00 % 18.00/min 37337 111 58523 4 95.00 % 18.00/min 37484 111 96161 3 18.00/mi n 21620 112 40244 0 58.00 mm[Hg] - Sitting 138.00 mm[Hg] - Sitting 98.20 Tympanic 92.00 % 55.00/ min 16.00/min 30855 112 25319 7 95.00 % 20.00/min 88656 112 61634 7 95.00 % 20.00/min 77365 112 19495 5 95.00 % 18.00/min 19224 112 05257 0 18.00/mi n 96799 113 43074 0 50.00 mm[Hg] - Sitting 110.00 mm[Hg] - Sitting 97.70 Forehead Scan 94.00 % 54.00/ min 20.00/min 05687 113 98231 1 95.00 % 18.00/min 91937 113 54454 2 96.00 % 18.00/min 82718 113 06232 0 95.00 % 15.00/min 63156 113 57367 4 95.00 % 18.00/min 41384 114 43933 6 55.00 mm[Hg] - Sitting 103.00 mm[Hg] - Sitting 97.50 Forehead Scan 91.00 % 55.00/ min 20.00/min 76772 114 35372 7 96.00 % 18.00/min 06714 114 49164 8 94.00 % 18.00/min 09537 114 28762 3 96.00 % 18.00/min 47349 114 34453 9 96.00 % 18.00/min 08369 114 40299 3 60.00 mm[Hg] - Sitting 110.00 mm[Hg] - Sitting 60.00/ min 06258 115 64983 0 66.00 mm[Hg] - Sitting 131.00 mm[Hg] - Sitting 97.90 Tympanic 95.00 % 71.00/ min 18.00/min 73431 115 53876 0 66.00 mm[Hg] - Sitting 125.00 mm[Hg] - Sitting 98.00 Tympanic 92.00 % 60.00/ min 16.00/min 68122 115 26625 1 96.00 % 18.00/min 98177 115 63975 5 94.00 % 18.00/min 47185 115 38007 0 95.00 % 18.00/min 23502 115 74063 7 95.00 % 18.00/min 55225 115 54286 7 78.00 mm[Hg] - Sitting 132.00 mm[Hg] - Sitting 64.00/ min 03647 116 80280 0 66.00 mm[Hg] - Sitting 121.00 mm[Hg] - Sitting 98.20 Tympanic 94.00 % 57.00/ min 16.00/min 80504 116 95.00 % 18.00/min 92437 116 31051 0 88.00 % 18.00/min 42781 116 89987 6 88.00 % 18.00/min 18520 116 70849 3 18.00/mi n 07124 116 62688 8 18.00/mi n 32693 116 46079 0 95.00 % 18.00/min 91246 117 27089 6 57.00 mm[Hg] - Sitting 132.00 mm[Hg] - Sitting 97.00 Tympanic 95.00 % 60.00/ min 18.00/min 18992 117 00748 2 94.00 % 18.00/min 66481 117 88291 3 93.00 % 20.00/min 87532 117 80557 8 94.00 % 20.00/min 49780 117 95664 2 94.00 % 18.00/min 74988 117 73704 1 18.00/mi n 68617 118 88753 8 135.40 [place] [address] 118 54454 6 66.00 mm[Hg] - Sitting 112.00 mm[Hg] - Sitting 97.50 Tympanic 95.00 % 57.00/ min 16.00/min 46367 118 68202 0 92.00 % 18.00/min 27003 118 66591 4 94.00 % 18.00/min 28515 118 07539 5 18.00/mi n 00242 119 24199 0 79.00 mm[Hg] - Sitting 157.00 mm[Hg] - Sitting 97.00 % 56.00/ min 18.00/min 93954 119 30450 3 97.00 % 07795 119 62399 9 97.00 % 61.00/ min 16.00/min 48254 119 62765 7 97.00 % 61.00/ min 16.00/min 08175 119 68606 0 16.00/mi n 56423 119 75868 4 16.00/mi n 04467 119 23468 0 94.00 % 18.00/min 27660 119 48264 8 18.00/mi n Immunizations Vaccine Date Status Other 06/20/2024 Completed
--- OUTSIDE RECORDS SUMMARY | 2024-07-19 23:04 | External Medical Summary | Continuity Of Care Document ---
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 unit/0.1 mL intradermal injection solution [Tuberculin PPD] 0.1mL Intradermal Once daily For PPD 2nd Step Give 2nd Step PPD Day 1 and Read results Day 3 (schedule 7 days after 1st READ) 0.1mL 07/03 Inactiv e 2024 99692 13750 0 Once daily Intrad ermal False Tylenol 325 mg tablet 2 tabs By Mouth Every 4 hours as needed For Pain DO NOT EXCEED 3000 MG APAP/24 Hours 2 tabs 2024 Active 2024 39669 18076 0 Every 4 hours as needed By Mouth False Dulcolax (bisacodyl) 10 mg rectal suppository One Suppository per rectum PRN if Milk of Magnisia ineffective. Give on day 5 of no BM 1 sup 2024 Active 2024 04912 52353 1 Daily as needed Rectal False Fleet Enema 19 gram-7 gram/118 mL Administer per rectum PRN one time if dulcolax suppository not effective. Give on day 6 of no BM 1 2024 Active 2024 91540 14656 6 Daily as needed Rectal False Tylenol 325 mg tablet 2 tabs By Mouth Every 4 hours as needed For Fever >100 DO NOT EXCEED 3000 MG APAP/24 Hours 2 tabs 2024 Active 2024 69570 49245 0 Every 4 hours as needed By Mouth False Eliquis 5 mg tablet 5 mg By Mouth Twice daily For afib 5 mg 2024 Active 2024 73936 30867 1 Twice daily By Mouth False Ferrous sulfate 325 mg (65 mg iron) tablet [generic] 325 mg By Mouth Once daily For supplement 325 mg 2024 Active 2024 20489 07851 5 Once daily By Mouth False Magnesium oxide 400 mg (241.3 mg magnesium) tablet [generic] 400 mg By Mouth Once daily For supplement 400 mg 2024 Active 2024 98984 25860 2 Once daily By Mouth False Protonix 40 mg tablet,bozena yed release 40 mg By Mouth Once daily For GERD 40 mg 2024 Active 2024 50358 54649 1 Once daily By Mouth False Sotalol 120 mg tablet [generic] 120 mg By Mouth Twice daily For SVT 120 mg 2024 Active 2024 60654 33754 1 Twice daily By Mouth False Rosuvastati n 20 mg tablet [generic] 20 mg By Mouth Once daily For HLD 20 mg 2024 Active 2024 55271 57093 0 Once daily By Mouth False Arformotero l 15 mcg/2 mL solution for nebulizatio n [generic] 15 mcg Inhalation Twice daily For copd/asthma/ interstitial lung disease 15 mcg 06/20 Inactiv e 2024 07869 67286 0 Twice daily Inhala tion False Budesonide 0.5 mg/2 mL suspension for nebulizatio n [generic] 0.5 mg Inhalation Twice daily For copd/ asthma/ interstital lung disease 0.5 mg 2024 Active 2024 08570 15425 8 Twice daily Inhala tion False Furosemide 40 mg tablet [generic] 40 mg By Mouth Once daily For chronic diastolic CHF 40 mg 07/04 Inactiv e 2024 17127 31431 0 Once daily By Mouth False Furosemide 40 mg tablet [generic] 40 mg By Mouth Once daily For chronic diastolic CHF 40 mg 07/04 Inactiv e 2024 83725 32974 0 Once daily By Mouth False Ventolin HFA 90 mcg/actuati on aerosol inhaler 2 puff Inhalation Every 6 hours as needed For SOB/ wheeze 2 puff 2024 Active 2024 38368 31298 0 Every 6 hours as needed Inhala tion False Amitriptyli ne 25 mg tablet [generic] 25 mg By Mouth At bedtime For general anxiety disorder 25 mg 06/26 Inactiv e 2024 74449 99776 1 At bedtime By Mouth False Levothyroxi ne 125 mcg tablet [generic] 125 mcg By Mouth Once daily For hypothyroidis m 125 mcg 2024 Active 2024 32879 58629 0 Once daily By Mouth False Arformotero l 15 mcg/2 mL solution for nebulizatio n [generic] 06/20 Inactiv e 2024 89693 81935 0 Arformotero l 15 mcg/2 mL solution for nebulizatio n [generic] 15 mcg Inhalation Twice daily For copd/asthma/ interstitial lung disease 15 mcg 2024 Active 2024 68123 98027 0 Twice daily Inhala tion False Clonazepam 0.5 mg tablet [generic] 0.5mg By Mouth As Needed q12 hour PRN For anxiety 0.5mg 06/28 Inactiv e 2024 19131 39282 0 By Mouth False Colace 100 mg capsule 100 mg By Mouth Twice daily For Constipation 100 mg 2024 Active 2024 30463 89637 1 Twice daily By Mouth False Boost 0.04 gram-1 kcal/mL oral liquid 1 carton By Mouth 3 times a day For malnutrition 1 carton 06/27 Inactiv e 2024 69240 15945 9 3 times a day By Mouth False Amitriptyli ne 10 mg tablet [generic] 10mg By Mouth At bedtime along with 25 mg dose to equal 35mg For anxiety 10mg 2024 Active 2024 97183 51160 1 At bedtime By Mouth False Amitriptyli ne 25 mg tablet [generic] 06/26 Inactiv e 2024 61337 79898 1 Amitriptyli ne 25 mg tablet [generic] 25 mg By Mouth At bedtime Along with 10mg to equal 35mg. for anxiety 25 mg 2024 Active 2024 86776 28803 1 At bedtime By Mouth False Boost Breeze Nutritional 0.04 gram-1.05 kcal/mL oral liquid 237 ml By Mouth Twice daily Boost Breeze 237 ml oral liquids For Early satiety, low average meal intake - please record number of mL consumed 237 ml 07/02 Inactiv e 2024 68169 69481 1 Twice daily By Mouth False Prosource [...] PRN For anxiety 0.5mg 2024 Active 2024 37137 12279 0 By Mouth False Ensure clear oral liquid [Food supplemt, lactose-red uced] 120mL By Mouth Once daily For supplement 120mL 2024 Active 2024 Once daily By Mouth False Furosemide 40 mg tablet [generic] 40 mg By Mouth Twice daily For UNSPECIFIED SYSTOLIC (CONGESTIVE) HEART FAILURE 40 mg 2024 Active 2024 72478 75129 0 Twice daily By Mouth I50.20 False Betadine Swabsticks 10 % 1 scott Topical Twice daily to bilateral heels For stage 2 pressure injury 1 scott 2024 Active 2024 02726 66560 1 Twice daily Topica l False Problems [...] weight Temperature SpO2 Blood Sugar Pulse Respirations 03643 102 48877 9 83.00 mm[Hg] - Lying Down 170.00 mm[Hg] - Lying Down 98.20 Forehead Scan 98.00 % 86.00/ min 18.00/min 50836 102 75560 4 83.00 mm[Hg] - Sitting 170.00 mm[Hg] - Sitting 98.20 Tympanic 86.00/ min 18.00/min 19694 103 83960 5 98.20 Tympanic 48852 103 86508 3 80.00 mm[Hg] - Lying Down 164.00 mm[Hg] - Lying Down 91.00/ min 20.00/min 81406 103 09176 0 80.00 mm[Hg] - Sitting 164.00 mm[Hg] - Sitting 98.20 Tympanic 91.00/ min 18.00/min 23798 103 02618 7 91.00 % 20.00/min 45458 103 87606 3 94.00 % 18.00/min 34605 103 83414 9 09893 104 53618 6 80.00 mm[Hg] - Sitting 140.00 mm[Hg] - Sitting 98.10 Tympanic 94.00 % 64.00/ min 18.00/min 46980 104 39151 1 80.00 mm[Hg] - Sitting 140.00 mm[Hg] - Sitting 98.10 Tympanic 64.00/ min 18.00/min 32501 104 43981 0 80.00 mm[Hg] - Sitting 140.00 mm[Hg] - Sitting 98.10 Tympanic 64.00/ min 18.00/min 49739 104 13882 7 73.00 mm[Hg] - Sitting 136.00 mm[Hg] - Sitting 97.90 Forehead Scan 95.00 % 74.00/ min 16.00/min 36865 104 41038 8 73.00 mm[Hg] - Sitting 135.00 mm[Hg] - Sitting 98.20 Tympanic 74.00/ min 18.00/min 76737 104 89600 6 95.00 % 18.00/min 46578 104 86772 6 96.00 % 18.00/min 17179 104 28157 4 94.00 % 18.00/min 10543 104 11651 0 18.00/mi n 36523 105 72704 0 73.00 mm[Hg] - Sitting 135.00 mm[Hg] - Sitting 98.20 Tympanic 74.00/ min 18.00/min 77744 105 50350 6 73.00 mm[Hg] - Sitting 135.00 mm[Hg] - Sitting 98.20 Tympanic 74.00/ min 20.00/min 40757 105 85436 3 53.00 mm[Hg] - Sitting 126.00 mm[Hg] - Sitting 97.00 Tympanic 99.00 % 56.00/ min 20.00/min 92076 105 09258 6 93.00 % 20.00/min 04416 105 27959 8 94.00 % 20.00/min 40088 105 80216 3 97.00 % 18.00/min 37553 105 74509 9 96.00 % 18.00/min 08567 106 81360 0 67.00 mm[Hg] - Sitting 150.00 mm[Hg] - Sitting 98.80 Forehead Scan 97.00 % 58.00/ min 16.00/min 00211 107 77444 3 136.00 NI 19703 107 04675 0 59 NI 21032 107 79082 0 61.00 mm[Hg] - Sitting 144.00 mm[Hg] - Sitting 97.90 Tympanic 93.00 % 54.00/ min 16.00/min 85039 107 65917 1 95.00 % 18.00/min 74886 107 67632 0 18.00/mi n 43376 107 11103 6 63.00 mm[Hg] - Sitting 159.00 mm[Hg] - Sitting 60.00/ min 80255 107 94550 6 94.00 % 18.00/min 33084 107 90012 3 95.00 % 18.00/min 39962 108 88626 0 55.00 mm[Hg] - Sitting 127.00 mm[Hg] - Sitting 97.80 Tympanic 95.00 % 55.00/ min 16.00/min 04316 108 56456 8 96.00 % 12092 108 14897 4 95.00 % 20.00/min 81840 108 81568 0 96.00 % 20.00/min 95875 108 74832 2 96.00 % 20.00/min 58781 109 64754 0 63.00 mm[Hg] - Sitting 131.00 mm[Hg] - Sitting 98.70 Tympanic 96.00 % 54.00/ min 18.00/min 76843 109 44183 8 94.00 % 18.00/min 42509 109 81597 2 18.00/mi n 46526 109 10151 5 97.00 % 18.00/min 95574 109 76802 2 96.00 % 18.00/min 68973 110 11241 0 55.00 mm[Hg] - Lying Down 137.00 mm[Hg] - Lying Down 97.00 Tympanic 93.00 % 63.00/ min 20.00/min 18004 110 13786 6 94.00 % 18.00/min 75324 110 75255 8 94.00 % 18.00/min 71218 110 62148 0 74.00 mm[Hg] - Sitting 161.00 mm[Hg] - Sitting 56.00/ min 69892 110 02903 1 94.00 % 18.00/min 58141 110 35891 6 18.00/mi n 91235 111 51351 9 74.00 mm[Hg] - Sitting 161.00 mm[Hg] - Sitting 97.80 Tympanic 92.00 % 56.00/ min 16.00/min 45336 111 69685 5 94.00 % 18.00/min 06800 111 37311 5 94.00 % 18.00/min 46258 111 40746 4 95.00 % 18.00/min 50225 111 83071 3 18.00/mi n 01119 112 95516 0 58.00 mm[Hg] - Sitting 138.00 mm[Hg] - Sitting 98.20 Tympanic 92.00 % 55.00/ min 16.00/min 87975 112 58032 7 95.00 % 20.00/min 29712 112 75971 7 95.00 % 20.00/min 08467 112 43811 5 95.00 % 18.00/min 79865 112 59350 0 18.00/mi n 90812 113 19213 0 50.00 mm[Hg] - Sitting 110.00 mm[Hg] - Sitting 97.70 Forehead Scan 94.00 % 54.00/ min 20.00/min 26164 113 81043 1 95.00 % 18.00/min 63256 113 19693 2 96.00 % 18.00/min 39691 113 46116 0 95.00 % 15.00/min 43428 113 74240 4 95.00 % 18.00/min 13055 114 57460 6 55.00 mm[Hg] - Sitting 103.00 mm[Hg] - Sitting 97.50 Forehead Scan 91.00 % 55.00/ min 20.00/min 05223 114 73053 7 96.00 % 18.00/min 78768 114 20653 8 94.00 % 18.00/min 79895 114 77341 3 96.00 % 18.00/min 11473 114 27600 9 96.00 % 18.00/min 03149 114 35595 3 60.00 mm[Hg] - Sitting 110.00 mm[Hg] - Sitting 60.00/ min 67206 115 68737 0 66.00 mm[Hg] - Sitting 131.00 mm[Hg] - Sitting 97.90 Tympanic 95.00 % 71.00/ min 18.00/min 07835 115 65681 0 66.00 mm[Hg] - Sitting 125.00 mm[Hg] - Sitting 98.00 Tympanic 92.00 % 60.00/ min 16.00/min 21609 115 16918 1 96.00 % 18.00/min 98279 115 82860 5 94.00 % 18.00/min 71350 115 28216 0 95.00 % 18.00/min 54730 115 85430 7 95.00 % 18.00/min 23866 115 79369 7 78.00 mm[Hg] - Sitting 132.00 mm[Hg] - Sitting 64.00/ min 85522 116 77463 0 66.00 mm[Hg] - Sitting 121.00 mm[Hg] - Sitting 98.20 Tympanic 94.00 % 57.00/ min 16.00/min 89893 116 95.00 % 18.00/min 75746 116 72203 0 88.00 % 18.00/min 98584 116 89168 6 88.00 % 18.00/min 94455 116 72011 3 18.00/mi n 25005 116 51748 8 18.00/mi n 88218 116 32532 0 95.00 % 18.00/min 25836 117 66617 6 57.00 mm[Hg] - Sitting 132.00 mm[Hg] - Sitting 97.00 Tympanic 95.00 % 60.00/ min 18.00/min 89224 117 56520 2 94.00 % 18.00/min 45182 117 02345 3 93.00 % 20.00/min 65358 117 29655 8 94.00 % 20.00/min 77978 117 28370 2 94.00 % 18.00/min 05588 117 93141 1 18.00/mi n 71763 118 91538 8 135.40 NI 16051 118 82840 6 66.00 mm[Hg] - Sitting 112.00 mm[Hg] - Sitting 97.50 Tympanic 95.00 % 57.00/ min 16.00/min 75814 118 21636 0 92.00 % 18.00/min 64096 118 74306 4 94.00 % 18.00/min 01414 118 85016 5 18.00/mi n 81153 119 80566 0 79.00 mm[Hg] - Sitting 157.00 mm[Hg] - Sitting 97.00 % 56.00/ min 18.00/min 54531 119 39307 3 97.00 % 62540 119 59591 9 97.00 % 61.00/ min 16.00/min 78716 119 39092 7 97.00 % 61.00/ min 16.00/min 42916 119 82374 0 16.00/mi n 90263 119 46188 4 16.00/mi n 05634 119 38896 0 94.00 % 18.00/min 94545 119 09123 8 18.00/mi n Immunizations Vaccine Date Status Other 06/20/2024 Completed
--- OUTSIDE RECORDS SUMMARY | 2024-07-19 23:04 | External Medical Summary | Summary of Care ---
Author Name Unknown Organization [facility] Address [address] [place] [address] Phone [phone] Care Team Providers Care Rolled Seat Trimmer Name Role Phone Umair Gillis DO Primary Care Provider Reason for Visit * Reason Onset Date Comments Home Health 07/10/2024 Encounter Details Date Type Department Care Team (Late st Contact Info) Description 07/10/2024 Telephone Family Practice [facility] [address] [facility] [place] [address] Umair Gillis DO [address] [facility] [place] [address] Home Health Allergies Active Allergy Reactions Criticality [...] Active oxygen IN GASIndications:ILD (interstitial lung disease) ([facility]),Moderate persistent asthma without complication,Chron ic respiratory failure with hypoxia ([facility]) Use 2 LPM with exertion. [...] PD, group C, by GOLD 2017 classification ([facility]),Chronic diastolic CHF (congestive heart failure) ([facility]),Moderate persistent asthma without complication Inhale 1 Puff by mouth every 4 hours as needed for Wheezing. 15 g 12 3 Active Ventolin HFA 108 (90 Base) MCG/ACT Inhalation Aerosol Solution Inhale 2 Puffs by mouth every 4 hours as needed for Wheezing. 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 * Telephone Encounter - Odalys Garcia LPN - 07/10/2024 1:08 PM EST HH Admission/Start of Care Admission/Start of Care: kathya Eller Calling from: [facility] Patient was Admitted to: [facility] , for: Pneumonia and CHF from 07/08 to 07/10 Referral ordered by: [facility] Referral received for: [facility], PT, and OT Planned start of care [...] to fax to the office for signature. [facility] * Telephone Encounter - Freddie Ron OSA - 07/10/2024 1:06 PM EST Reason for patient's call: Would like to speak with nurse. Caller was transferred to Odalys at the nurse line. * Telephone Encounter - Malou Kam OSA - 07/10/2024 9:11 AM EST Aggie of [facility] calling inquiring if pcp would follow with the patient in Home Health?Per Aggie pt will be discharged from Hospital today. Please advise. documented in this encounter Plan of Treatment Upcoming Encounters Date Type Department Care Team (Late st Contact Info) Description 07/16/2024 12:00 PM EST Office Visit Gastroenterology, [facility] [address] [place] [address] Ricky Pichardo CRNP [address] [place] [address] 07/24/2024 12:50 PM EST Office Visit Dermatology [facility], [place] [address] [place] [address] Bela Nevarez PA-C [address] [facility] [place] [id number] 10/09/2024 1:30 PM EDT Office Visit Pulmonary Medicine, [facility] [address] [place] [address] Jt Leon MD [address] [facility] [place] [address] 12/04/2024 1:00 PM EDT Office Visit Family Practice [facility] [address] [facility] [place] [address] Umair Gillis, DO [address] [facility] [place] [address] Scheduled Procedures Name Priority Associated Diagnoses Date/Ti [...] this encounter Medical Devices Implanted Type Area Account Development Representative Device Identifier Shelf Expiration Date Model / Serial / Lot Clip Quick 2.8mm 230cm - [id number] Implanted:Qty: 2 on 01/31/2019 by Rebecca Ayala DO at [facility] [employer] Online 06/18/2021 [id number] / / documented as of this encounter Care Teams Rolled Seat Trimmer Relationship Specialty Start Date End Date Umair Gillis DO [address] [place] [address] PCP - General Family Medicine 12/16/16 documented as of this encounter
--- OUTSIDE RECORDS SUMMARY | 2024-07-19 23:05 | External Medical Summary | Continuity Of Care Document ---
Author Name Unknown Address [address] [place] [address] Organization [facility] () Care Team Providers Care Mill Manager Name Role Phone DO Lopez Amy Primary Care Provider [phone] Allergies Allergy Reaction Start Date End Date [...] 3 0.1 mL 06/23 Inactiv e 2024 70676 13342 0 At bedtime Intrad ermal False Tubersol 5 tub. unit/0.1 mL intradermal injection solution [Tuberculin PPD] 0.1mL Intradermal Once daily For PPD 2nd Step Give 2nd Step PPD Day 1 and Read results Day 3 (schedule 7 days after 1st READ) 0.1mL 07/03 Inactiv e 2024 94265 79431 0 Once daily Intrad ermal False Tylenol 325 mg tablet 2 tabs By Mouth Every 4 hours as needed For Pain DO NOT EXCEED 3000 MG APAP/24 Hours 2 tabs 2024 Active 2024 55576 70105 0 Every 4 hours as needed By Mouth False Dulcolax (bisacodyl) 10 mg rectal suppository One Suppository per rectum PRN if Milk of Magnisia ineffective. Give on day 5 of no BM 1 sup 2024 Active 2024 43223 82708 1 Daily as needed Rectal False Fleet Enema 19 gram-7 gram/118 mL Administer per rectum PRN one time if dulcolax suppository not effective. Give on day 6 of no BM 1 2024 Active 2024 65252 81919 6 Daily as needed Rectal False Tylenol 325 mg tablet 2 tabs By Mouth Every 4 hours as needed For Fever >100 DO NOT EXCEED 3000 MG APAP/24 Hours 2 tabs 2024 Active 2024 09985 63977 0 Every 4 hours as needed By Mouth False Eliquis 5 mg tablet 5 mg By Mouth Twice daily For afib 5 mg 2024 Active 2024 42914 62492 1 Twice daily By Mouth False Ferrous sulfate 325 mg (65 mg iron) tablet [generic] 325 mg By Mouth Once daily For supplement 325 mg 2024 Active 2024 30294 50594 5 Once daily By Mouth False Magnesium oxide 400 mg (241.3 mg magnesium) tablet [generic] 400 mg By Mouth Once daily For supplement 400 mg 2024 Active 2024 76236 75727 2 Once daily By Mouth False Protonix 40 mg tablet,bozena yed release 40 mg By Mouth Once daily For GERD 40 mg 2024 Active 2024 97237 45280 1 Once daily By Mouth False Sotalol 120 mg tablet [generic] 120 mg By Mouth Twice daily For SVT 120 mg 2024 Active 2024 19883 15230 1 Twice daily By Mouth False Rosuvastati n 20 mg tablet [generic] 20 mg By Mouth Once daily For HLD 20 mg 2024 Active 2024 75854 14574 0 Once daily By Mouth False Arformotero l 15 mcg/2 mL solution for nebulizatio n [generic] 15 mcg Inhalation Twice daily For copd/asthma/ interstitial lung disease 15 mcg 06/20 Inactiv e 2024 09236 08846 0 Twice daily Inhala tion False Budesonide 0.5 mg/2 mL suspension for nebulizatio n [generic] 0.5 mg Inhalation Twice daily For copd/ asthma/ interstital lung disease 0.5 mg 2024 Active 2024 87779 43972 8 Twice daily Inhala tion False Furosemide 40 mg tablet [generic] 40 mg By Mouth Once daily For chronic diastolic CHF 40 mg 2024 Active 2024 13071 54748 0 Once daily By Mouth False Furosemide 40 mg tablet [generic] 40 mg By Mouth Once daily For chronic diastolic CHF 40 mg 2024 Active 2024 02254 46811 0 Once daily By Mouth False Ventolin HFA 90 mcg/actuati on aerosol inhaler 2 puff Inhalation Every 6 hours as needed For SOB/ wheeze 2 puff 2024 Active 2024 68366 13497 0 Every 6 hours as needed Inhala tion False Amitriptyli ne 25 mg tablet [generic] 25 mg By Mouth At bedtime For general anxiety disorder 25 mg 06/26 Inactiv e 2024 63664 52327 1 At bedtime By Mouth False Levothyroxi ne 125 mcg tablet [generic] 125 mcg By Mouth Once daily For hypothyroidis m 125 mcg 2024 Active 2024 98618 55695 0 Once daily By Mouth False Arformotero l 15 mcg/2 mL solution for nebulizatio n [generic] 06/20 Inactiv e 2024 61676 09681 0 Arformotero l 15 mcg/2 mL solution for nebulizatio n [generic] 15 mcg Inhalation Twice daily For copd/asthma/ interstitial lung disease 15 mcg 2024 Active 2024 19068 40146 0 Twice daily Inhala tion False Clonazepam 0.5 mg tablet [generic] 0.5mg By Mouth As Needed q12 hour PRN For anxiety 0.5mg 06/28 Inactiv e 2024 33516 82486 0 By Mouth False Colace 100 mg capsule 100 mg By Mouth Twice daily For Constipation 100 mg 2024 Active 2024 75516 83613 1 Twice daily By Mouth False Boost 0.04 gram-1 kcal/mL oral liquid 1 carton By Mouth 3 times a day For malnutrition 1 carton 06/27 Inactiv e 2024 43556 60694 9 3 times a day By Mouth False Amitriptyli ne 10 mg tablet [generic] 10mg By Mouth At bedtime along with 25 mg dose to equal 35mg For anxiety 10mg 2024 Active 2024 43130 72846 1 At bedtime By Mouth False Amitriptyli ne 25 mg tablet [generic] 06/26 Inactiv e 2024 78568 17579 1 Amitriptyli ne 25 mg tablet [generic] 25 mg By Mouth At bedtime Along with 10mg to equal 35mg. for anxiety 25 mg 2024 Active 2024 88504 77871 1 At bedtime By Mouth False Boost Breeze Nutritional 0.04 gram-1.05 kcal/mL oral liquid 237 ml By Mouth Twice daily Boost Breeze 237 ml oral liquids For Early satiety, low average meal intake - please record number of mL consumed 237 ml 07/02 Inactiv e 2024 02564 78100 1 Twice daily By Mouth False Prosource [...] PRN For anxiety 0.5mg 2024 Active 2024 77281 26032 0 By Mouth False Ensure clear oral liquid [Food supplemt, lactose-red uced] 120mL By Mouth Once daily For supplement 120mL 2024 Active 2024 Once daily By Mouth False Betadine Swabsticks 10 % 1 [place]ott Topical Twice daily to bilateral heels For stage 2 pressure injury 1 [place] 2024 Active 2024 75543 66208 1 Twice daily Topica l False Problems Code Description Start Date End Date Status R00.0 Tachycardia, unspecified 06/20/2024 Active N17.9 Acute kidney failure, unspecified 06/20/2024 Active E87.6 Hypokalemia 06/20/2024 Active E03.9 Hypothyroidism, unspecified 06/20/2024 Active E78.5 Hyperlipidemia, unspecified 06/20/2024 Active C73. [...] weight Temperature SpO2 Blood Sugar Pulse Respirations 08770 102 95741 9 83.00 mm[Hg] - Lying Down 170.00 mm[Hg] - Lying Down 98.20 Forehead Scan 98.00 % 86.00/ min 18.00/min 09789 102 56411 4 83.00 mm[Hg] - Sitting 170.00 mm[Hg] - Sitting 98.20 Tympanic 86.00/ min 18.00/min 22798 103 48775 5 98.20 Tympanic 51652 103 49402 3 80.00 mm[Hg] - Lying Down 164.00 mm[Hg] - Lying Down 91.00/ min 20.00/min 31596 103 66627 0 80.00 mm[Hg] - Sitting 164.00 mm[Hg] - Sitting 98.20 Tympanic 91.00/ min 18.00/min 49329 103 58102 7 91.00 % 20.00/min 39858 103 74620 3 94.00 % 18.00/min 77808 103 54055 9 53117 104 82294 6 80.00 mm[Hg] - Sitting 140.00 mm[Hg] - Sitting 98.10 Tympanic 94.00 % 64.00/ min 18.00/min 40652 104 63031 1 80.00 mm[Hg] - Sitting 140.00 mm[Hg] - Sitting 98.10 Tympanic 64.00/ min 18.00/min 03525 104 22459 0 80.00 mm[Hg] - Sitting 140.00 mm[Hg] - Sitting 98.10 Tympanic 64.00/ min 18.00/min 59852 104 91681 7 73.00 mm[Hg] - Sitting 136.00 mm[Hg] - Sitting 97.90 Forehead Scan 95.00 % 74.00/ min 16.00/min 22619 104 05934 8 73.00 mm[Hg] - Sitting 135.00 mm[Hg] - Sitting 98.20 Tympanic 74.00/ min 18.00/min 99280 104 84631 6 95.00 % 18.00/min 11737 104 75385 6 96.00 % 18.00/min 55482 104 98001 4 94.00 % 18.00/min 13814 104 73665 0 18.00/mi n 40892 105 37832 0 73.00 mm[Hg] - Sitting 135.00 mm[Hg] - Sitting 98.20 Tympanic 74.00/ min 18.00/min 84801 105 03044 6 73.00 mm[Hg] - Sitting 135.00 mm[Hg] - Sitting 98.20 Tympanic 74.00/ min 20.00/min 37291 105 84654 3 53.00 mm[Hg] - Sitting 126.00 mm[Hg] - Sitting 97.00 Tympanic 99.00 % 56.00/ min 20.00/min 80005 105 57478 6 93.00 % 20.00/min 51911 105 29644 8 94.00 % 20.00/min 69923 105 02406 3 97.00 % 18.00/min 59861 105 13760 9 96.00 % 18.00/min 43053 106 06870 0 67.00 mm[Hg] - Sitting 150.00 mm[Hg] - Sitting 98.80 Forehead Scan 97.00 % 58.00/ min 16.00/min 30057 107 82930 3 136.00 NI 58339 107 26910 0 59 NI 54003 107 14968 0 61.00 mm[Hg] - Sitting 144.00 mm[Hg] - Sitting 97.90 Tympanic 93.00 % 54.00/ min 16.00/min 34925 107 02545 1 95.00 % 18.00/min 29544 107 84959 0 18.00/mi n 95322 107 59884 6 63.00 mm[Hg] - Sitting 159.00 mm[Hg] - Sitting 60.00/ min 57495 107 38371 6 94.00 % 18.00/min 17245 107 27199 3 95.00 % 18.00/min 44719 108 67525 0 55.00 mm[Hg] - Sitting 127.00 mm[Hg] - Sitting 97.80 Tympanic 95.00 % 55.00/ min 16.00/min 59292 108 54318 8 96.00 % 54952 108 94734 4 95.00 % 20.00/min 02335 108 91356 0 96.00 % 20.00/min 05502 108 50394 2 96.00 % 20.00/min 92810 109 55594 0 63.00 mm[Hg] - Sitting 131.00 mm[Hg] - Sitting 98.70 Tympanic 96.00 % 54.00/ min 18.00/min 79068 109 47324 8 94.00 % 18.00/min 94275 109 58318 2 18.00/mi n 29900 109 37319 5 97.00 % 18.00/min 77634 109 2 96.00 % 18.00/min 05808 110 31534 0 55.00 mm[Hg] - Lying Down 137.00 mm[Hg] - Lying Down 97.00 Tympanic 93.00 % 63.00/ min 20.00/min 47685 110 64139 6 94.00 % 18.00/min 16766 110 82884 8 94.00 % 18.00/min 73720 110 49573 0 74.00 mm[Hg] - Sitting 161.00 mm[Hg] - Sitting 56.00/ min 04044 110 75921 1 94.00 % 18.00/min 56347 110 92606 6 18.00/mi n 75654 111 48377 9 74.00 mm[Hg] - Sitting 161.00 mm[Hg] - Sitting 97.80 Tympanic 92.00 % 56.00/ min 16.00/min 86350 111 96367 5 94.00 % 18.00/min 33884 111 23982 5 94.00 % 18.00/min 45909 111 31096 4 95.00 % 18.00/min 64114 111 61409 3 18.00/mi n 29714 112 56986 0 58.00 mm[Hg] - Sitting 138.00 mm[Hg] - Sitting 98.20 Tympanic 92.00 % 55.00/ min 16.00/min 89115 112 13209 7 95.00 % 20.00/min 15719 112 49212 7 95.00 % 20.00/min 33063 112 11889 5 95.00 % 18.00/min 09239 112 20793 0 18.00/mi n 33815 113 66383 0 50.00 mm[Hg] - Sitting 110.00 mm[Hg] - Sitting 97.70 Forehead Scan 94.00 % 54.00/ min 20.00/min 28354 113 16846 1 95.00 % 18.00/min 73615 113 17331 2 96.00 % 18.00/min 22618 113 14251 0 95.00 % 15.00/min 02949 113 85710 4 95.00 % 18.00/min 50179 114 00244 6 55.00 mm[Hg] - Sitting 103.00 mm[Hg] - Sitting 97.50 Forehead Scan 91.00 % 55.00/ min 20.00/min 83352 114 45939 7 96.00 % 18.00/min 95386 114 97697 8 94.00 % 18.00/min 18114 114 12762 3 96.00 % 18.00/min 60383 114 71468 9 96.00 % 18.00/min 05836 114 38918 3 60.00 mm[Hg] - Sitting 110.00 mm[Hg] - Sitting 60.00/ min 55509 115 95784 0 66.00 mm[Hg] - Sitting 131.00 mm[Hg] - Sitting 97.90 Tympanic 95.00 % 71.00/ min 18.00/min 13010 115 57940 0 66.00 mm[Hg] - Sitting 125.00 mm[Hg] - Sitting 98.00 Tympanic 92.00 % 60.00/ min 16.00/min 50012 115 55170 1 96.00 % 18.00/min 95559 115 58652 5 94.00 % 18.00/min 44913 115 60468 0 95.00 % 18.00/min 36388 115 58521 7 95.00 % 18.00/min 61974 115 97110 7 78.00 mm[Hg] - Sitting 132.00 mm[Hg] - Sitting 64.00/ min 01124 116 17705 0 88.00 % 18.00/min 16714 116 84927 6 88.00 % 18.00/min 83128 116 24260 3 18.00/mi n 92738 116 38850 8 18.00/mi n Immunizations Vaccine Date Status Other 06/20/2024 Completed
--- OUTSIDE RECORDS SUMMARY | 2024-07-19 23:05 | External Medical Summary | Continuity Of Care Document ---
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 unit/0.1 mL intradermal injection solution [Tuberculin PPD] 0.1mL Intradermal Once daily For PPD 2nd Step Give 2nd Step PPD Day 1 and Read results Day 3 (schedule 7 days after 1st READ) 0.1mL 07/03 Inactiv e 2024 95377 33548 0 Once daily Intrad ermal False Tylenol 325 mg tablet 2 tabs By Mouth Every 4 hours as needed For Pain DO NOT EXCEED 3000 MG APAP/24 Hours 2 tabs 2024 Active 2024 41609 72004 0 Every 4 hours as needed By Mouth False Dulcolax (bisacodyl) 10 mg rectal suppository One Suppository per rectum PRN if Milk of Magnisia ineffective. Give on day 5 of no BM 1 sup 2024 Active 2024 45532 87670 1 Daily as needed Rectal False Fleet Enema 19 gram-7 gram/118 mL Administer per rectum PRN one time if dulcolax suppository not effective. Give on day 6 of no BM 1 2024 Active 2024 14953 87439 6 Daily as needed Rectal False Tylenol 325 mg tablet 2 tabs By Mouth Every 4 hours as needed For Fever >100 DO NOT EXCEED 3000 MG APAP/24 Hours 2 tabs 2024 Active 2024 27696 89931 0 Every 4 hours as needed By Mouth False Eliquis 5 mg tablet 5 mg By Mouth Twice daily For afib 5 mg 2024 Active 2024 94532 34020 1 Twice daily By Mouth False Ferrous sulfate 325 mg (65 mg iron) tablet [generic] 325 mg By Mouth Once daily For supplement 325 mg 2024 Active 2024 17305 31180 5 Once daily By Mouth False Magnesium oxide 400 mg (241.3 mg magnesium) tablet [generic] 400 mg By Mouth Once daily For supplement 400 mg 2024 Active 2024 73554 70342 2 Once daily By Mouth False Protonix 40 mg tablet,bozena yed release 40 mg By Mouth Once daily For GERD 40 mg 2024 Active 2024 86831 94667 1 Once daily By Mouth False Sotalol 120 mg tablet [generic] 120 mg By Mouth Twice daily For SVT 120 mg 2024 Active 2024 73983 25433 1 Twice daily By Mouth False Rosuvastati n 20 mg tablet [generic] 20 mg By Mouth Once daily For HLD 20 mg 2024 Active 2024 15459 43172 0 Once daily By Mouth False Arformotero l 15 mcg/2 mL solution for nebulizatio n [generic] 15 mcg Inhalation Twice daily For copd/asthma/ interstitial lung disease 15 mcg 06/20 Inactiv e 2024 44064 61130 0 Twice daily Inhala tion False Budesonide 0.5 mg/2 mL suspension for nebulizatio n [generic] 0.5 mg Inhalation Twice daily For copd/ asthma/ interstital lung disease 0.5 mg 2024 Active 2024 14820 69893 8 Twice daily Inhala tion False Furosemide 40 mg tablet [generic] 40 mg By Mouth Once daily For chronic diastolic CHF 40 mg 07/04 Inactiv e 2024 82035 85810 0 Once daily By Mouth False Furosemide 40 mg tablet [generic] 40 mg By Mouth Once daily For chronic diastolic CHF 40 mg 07/04 Inactiv e 2024 21855 25414 0 Once daily By Mouth False Ventolin HFA 90 mcg/actuati on aerosol inhaler 2 puff Inhalation Every 6 hours as needed For SOB/ wheeze 2 puff 2024 Active 2024 57648 85201 0 Every 6 hours as needed Inhala tion False Amitriptyli ne 25 mg tablet [generic] 25 mg By Mouth At bedtime For general anxiety disorder 25 mg 06/26 Inactiv e 2024 77794 72366 1 At bedtime By Mouth False Levothyroxi ne 125 mcg tablet [generic] 125 mcg By Mouth Once daily For hypothyroidis m 125 mcg 2024 Active 2024 30642 41990 0 Once daily By Mouth False Arformotero l 15 mcg/2 mL solution for nebulizatio n [generic] 06/20 Inactiv e 2024 94037 47901 0 Arformotero l 15 mcg/2 mL solution for nebulizatio n [generic] 15 mcg Inhalation Twice daily For copd/asthma/ interstitial lung disease 15 mcg 2024 Active 2024 59185 64843 0 Twice daily Inhala tion False Clonazepam 0.5 mg tablet [generic] 0.5mg By Mouth As Needed q12 hour PRN For anxiety 0.5mg 06/28 Inactiv e 2024 49436 33840 0 By Mouth False Colace 100 mg capsule 100 mg By Mouth Twice daily For Constipation 100 mg 2024 Active 2024 97921 43594 1 Twice daily By Mouth False Boost 0.04 gram-1 kcal/mL oral liquid 1 carton By Mouth 3 times a day For malnutrition 1 carton 06/27 Inactiv e 2024 68676 82064 9 3 times a day By Mouth False Amitriptyli ne 10 mg tablet [generic] 10mg By Mouth At bedtime along with 25 mg dose to equal 35mg For anxiety 10mg 2024 Active 2024 81129 81826 1 At bedtime By Mouth False Amitriptyli ne 25 mg tablet [generic] 06/26 Inactiv e 2024 64349 61794 1 Amitriptyli ne 25 mg tablet [generic] 25 mg By Mouth At bedtime Along with 10mg to equal 35mg. for anxiety 25 mg 2024 Active 2024 12915 24660 1 At bedtime By Mouth False Boost Breeze Nutritional 0.04 gram-1.05 kcal/mL oral liquid 237 ml By Mouth Twice daily Boost Breeze 237 ml oral liquids For Early satiety, low average meal intake - please record number of mL consumed 237 ml 07/02 Inactiv e 2024 56978 91817 1 Twice daily By Mouth False Prosource [...] PRN For anxiety 0.5mg 2024 Active 2024 87756 37232 0 By Mouth False Ensure clear oral liquid [Food supplemt, lactose-red uced] 120mL By Mouth Once daily For supplement 120mL 2024 Active 2024 Once daily By Mouth False Furosemide 40 mg tablet [generic] 40 mg By Mouth Twice daily For UNSPECIFIED SYSTOLIC (CONGESTIVE) HEART FAILURE 40 mg 2024 Active 2024 97113 56614 0 Twice daily By Mouth I50.20 False Betadine Swabsticks 10 % 1 scott Topical Twice daily to bilateral heels For stage 2 pressure injury 1 scott 2024 Active 2024 65718 13921 1 Twice daily Topica l False Problems [...] weight Temperature SpO2 Blood Sugar Pulse Respirations 19520 102 03049 9 83.00 mm[Hg] - Lying Down 170.00 mm[Hg] - Lying Down 98.20 Forehead Scan 98.00 % 86.00/ min 18.00/min 16789 102 72258 4 83.00 mm[Hg] - Sitting 170.00 mm[Hg] - Sitting 98.20 Tympanic 86.00/ min 18.00/min 90089 103 77688 5 98.20 Tympanic 28190 103 53873 3 80.00 mm[Hg] - Lying Down 164.00 mm[Hg] - Lying Down 91.00/ min 20.00/min 82535 103 68359 0 80.00 mm[Hg] - Sitting 164.00 mm[Hg] - Sitting 98.20 Tympanic 91.00/ min 18.00/min 65071 103 46381 7 91.00 % 20.00/min 29978 103 91548 3 94.00 % 18.00/min 95740 103 74298 9 79522 104 49625 6 80.00 mm[Hg] - Sitting 140.00 mm[Hg] - Sitting 98.10 Tympanic 94.00 % 64.00/ min 18.00/min 25881 104 20889 1 80.00 mm[Hg] - Sitting 140.00 mm[Hg] - Sitting 98.10 Tympanic 64.00/ min 18.00/min 16311 104 75547 0 80.00 mm[Hg] - Sitting 140.00 mm[Hg] - Sitting 98.10 Tympanic 64.00/ min 18.00/min 54934 104 96600 7 73.00 mm[Hg] - Sitting 136.00 mm[Hg] - Sitting 97.90 Forehead Scan 95.00 % 74.00/ min 16.00/min 22011 104 37836 8 73.00 mm[Hg] - Sitting 135.00 mm[Hg] - Sitting 98.20 Tympanic 74.00/ min 18.00/min 00085 104 04520 6 95.00 % 18.00/min 38876 104 24204 6 96.00 % 18.00/min 47554 104 16139 4 94.00 % 18.00/min 81346 104 97360 0 18.00/mi n 24181 105 42646 0 73.00 mm[Hg] - Sitting 135.00 mm[Hg] - Sitting 98.20 Tympanic 74.00/ min 18.00/min 55739 105 25929 6 73.00 mm[Hg] - Sitting 135.00 mm[Hg] - Sitting 98.20 Tympanic 74.00/ min 20.00/min 46822 105 47957 3 53.00 mm[Hg] - Sitting 126.00 mm[Hg] - Sitting 97.00 Tympanic 99.00 % 56.00/ min 20.00/min 95937 105 52400 6 93.00 % 20.00/min 13339 105 71254 8 94.00 % 20.00/min 45689 105 80960 3 97.00 % 18.00/min 49658 105 81192 9 96.00 % 18.00/min 95044 106 73993 0 67.00 mm[Hg] - Sitting 150.00 mm[Hg] - Sitting 98.80 Forehead Scan 97.00 % 58.00/ min 16.00/min 85677 107 54534 3 136.00 NI 42163 107 97856 0 59 NI 02079 107 18068 0 61.00 mm[Hg] - Sitting 144.00 mm[Hg] - Sitting 97.90 Tympanic 93.00 % 54.00/ min 16.00/min 95589 107 83169 1 95.00 % 18.00/min 80133 107 17781 0 18.00/mi n 21586 107 91145 6 63.00 mm[Hg] - Sitting 159.00 mm[Hg] - Sitting 60.00/ min 62873 107 59177 6 94.00 % 18.00/min 95074 107 66197 3 95.00 % 18.00/min 50088 108 53416 0 55.00 mm[Hg] - Sitting 127.00 mm[Hg] - Sitting 97.80 Tympanic 95.00 % 55.00/ min 16.00/min 42011 108 80500 8 96.00 % 75654 108 90478 4 95.00 % 20.00/min 37716 108 13835 0 96.00 % 20.00/min 64616 108 85767 2 96.00 % 20.00/min 09779 109 18241 0 63.00 mm[Hg] - Sitting 131.00 mm[Hg] - Sitting 98.70 Tympanic 96.00 % 54.00/ min 18.00/min 51991 109 98119 8 94.00 % 18.00/min 34862 109 87566 2 18.00/mi n 76493 109 51358 5 97.00 % 18.00/min 41683 109 78300 2 96.00 % 18.00/min 92015 110 16868 0 55.00 mm[Hg] - Lying Down 137.00 mm[Hg] - Lying Down 97.00 Tympanic 93.00 % 63.00/ min 20.00/min 32072 110 24212 6 94.00 % 18.00/min 44767 110 16219 8 94.00 % 18.00/min 19842 110 79020 0 74.00 mm[Hg] - Sitting 161.00 mm[Hg] - Sitting 56.00/ min 53452 110 19550 1 94.00 % 18.00/min 92701 110 88898 6 18.00/mi n 26653 111 87690 9 74.00 mm[Hg] - Sitting 161.00 mm[Hg] - Sitting 97.80 Tympanic 92.00 % 56.00/ min 16.00/min 97247 111 87123 5 94.00 % 18.00/min 93774 111 96512 5 94.00 % 18.00/min 94601 111 06474 4 95.00 % 18.00/min 82976 111 00216 3 18.00/mi n 34885 112 44026 0 58.00 mm[Hg] - Sitting 138.00 mm[Hg] - Sitting 98.20 Tympanic 92.00 % 55.00/ min 16.00/min 40148 112 10802 7 95.00 % 20.00/min 55973 112 56041 7 95.00 % 20.00/min 20393 112 92579 5 95.00 % 18.00/min 71164 112 72682 0 18.00/mi n 64845 113 62627 0 50.00 mm[Hg] - Sitting 110.00 mm[Hg] - Sitting 97.70 Forehead Scan 94.00 % 54.00/ min 20.00/min 32378 113 68295 1 95.00 % 18.00/min 97850 113 74261 2 96.00 % 18.00/min 95798 113 02476 0 95.00 % 15.00/min 64106 113 65064 4 95.00 % 18.00/min 67409 114 35202 6 55.00 mm[Hg] - Sitting 103.00 mm[Hg] - Sitting 97.50 Forehead Scan 91.00 % 55.00/ min 20.00/min 44507 114 90797 7 96.00 % 18.00/min 59053 114 87006 8 94.00 % 18.00/min 80435 114 05660 3 96.00 % 18.00/min 86342 114 59573 9 96.00 % 18.00/min 73722 114 77373 3 60.00 mm[Hg] - Sitting 110.00 mm[Hg] - Sitting 60.00/ min 00888 115 50124 0 66.00 mm[Hg] - Sitting 131.00 mm[Hg] - Sitting 97.90 Tympanic 95.00 % 71.00/ min 18.00/min 25510 115 54184 0 66.00 mm[Hg] - Sitting 125.00 mm[Hg] - Sitting 98.00 Tympanic 92.00 % 60.00/ min 16.00/min 31197 115 24620 1 96.00 % 18.00/min 99898 115 88807 5 94.00 % 18.00/min 66657 115 12349 0 95.00 % 18.00/min 71441 115 42457 7 95.00 % 18.00/min 72879 115 63321 7 78.00 mm[Hg] - Sitting 132.00 mm[Hg] - Sitting 64.00/ min 27462 116 92414 0 66.00 mm[Hg] - Sitting 121.00 mm[Hg] - Sitting 98.20 Tympanic 94.00 % 57.00/ min 16.00/min 09583 116 95.00 % 18.00/min 21915 116 91859 0 88.00 % 18.00/min 31852 116 83958 6 88.00 % 18.00/min 50415 116 68233 3 18.00/mi n 88677 116 57918 8 18.00/mi n 26533 116 66196 0 95.00 % 18.00/min 29628 117 10249 2 94.00 % 18.00/min 69952 117 46979 3 93.00 % 20.00/min 78967 117 12774 8 94.00 % 20.00/min Immunizations Vaccine Date Status Other 06/20/2024 Completed
--- OUTSIDE RECORDS SUMMARY | 2024-07-19 23:05 | External Medical Summary | Continuity Of Care Document ---
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 unit/0.1 mL intradermal injection solution [Tuberculin PPD] 0.1mL Intradermal Once daily For PPD 2nd Step Give 2nd Step PPD Day 1 and Read results Day 3 (schedule 7 days after 1st READ) 0.1mL 07/03 Inactiv e 2024 84486 10522 0 Once daily Intrad ermal False Tylenol 325 mg tablet 2 tabs By Mouth Every 4 hours as needed For Pain DO NOT EXCEED 3000 MG APAP/24 Hours 2 tabs 2024 Active 2024 08264 39291 0 Every 4 hours as needed By Mouth False Dulcolax (bisacodyl) 10 mg rectal suppository One Suppository per rectum PRN if Milk of Magnisia ineffective. Give on day 5 of no BM 1 sup 2024 Active 2024 70235 86926 1 Daily as needed Rectal False Fleet Enema 19 gram-7 gram/118 mL Administer per rectum PRN one time if dulcolax suppository not effective. Give on day 6 of no BM 1 2024 Active 2024 26800 67830 6 Daily as needed Rectal False Tylenol 325 mg tablet 2 tabs By Mouth Every 4 hours as needed For Fever >100 DO NOT EXCEED 3000 MG APAP/24 Hours 2 tabs 2024 Active 2024 80377 24120 0 Every 4 hours as needed By Mouth False Eliquis 5 mg tablet 5 mg By Mouth Twice daily For afib 5 mg 2024 Active 2024 62167 89536 1 Twice daily By Mouth False Ferrous sulfate 325 mg (65 mg iron) tablet [generic] 325 mg By Mouth Once daily For supplement 325 mg 2024 Active 2024 01494 52464 5 Once daily By Mouth False Magnesium oxide 400 mg (241.3 mg magnesium) tablet [generic] 400 mg By Mouth Once daily For supplement 400 mg 2024 Active 2024 05357 44265 2 Once daily By Mouth False Protonix 40 mg tablet,bozena yed release 40 mg By Mouth Once daily For GERD 40 mg 2024 Active 2024 04629 34669 1 Once daily By Mouth False Sotalol 120 mg tablet [generic] 120 mg By Mouth Twice daily For SVT 120 mg 2024 Active 2024 13630 15158 1 Twice daily By Mouth False Rosuvastati n 20 mg tablet [generic] 20 mg By Mouth Once daily For HLD 20 mg 2024 Active 2024 45679 77462 0 Once daily By Mouth False Arformotero l 15 mcg/2 mL solution for nebulizatio n [generic] 15 mcg Inhalation Twice daily For copd/asthma/ interstitial lung disease 15 mcg 06/20 Inactiv e 2024 76153 29084 0 Twice daily Inhala tion False Budesonide 0.5 mg/2 mL suspension for nebulizatio n [generic] 0.5 mg Inhalation Twice daily For copd/ asthma/ interstital lung disease 0.5 mg 2024 Active 2024 17703 76822 8 Twice daily Inhala tion False Furosemide 40 mg tablet [generic] 40 mg By Mouth Once daily For chronic diastolic CHF 40 mg 07/04 Inactiv e 2024 99990 40620 0 Once daily By Mouth False Furosemide 40 mg tablet [generic] 40 mg By Mouth Once daily For chronic diastolic CHF 40 mg 07/04 Inactiv e 2024 30410 24879 0 Once daily By Mouth False Ventolin HFA 90 mcg/actuati on aerosol inhaler 2 puff Inhalation Every 6 hours as needed For SOB/ wheeze 2 puff 2024 Active 2024 48198 23613 0 Every 6 hours as needed Inhala tion False Amitriptyli ne 25 mg tablet [generic] 25 mg By Mouth At bedtime For general anxiety disorder 25 mg 06/26 Inactiv e 2024 40923 50160 1 At bedtime By Mouth False Levothyroxi ne 125 mcg tablet [generic] 125 mcg By Mouth Once daily For hypothyroidis m 125 mcg 2024 Active 2024 55031 21506 0 Once daily By Mouth False Arformotero l 15 mcg/2 mL solution for nebulizatio n [generic] 06/20 Inactiv e 2024 72824 50333 0 Arformotero l 15 mcg/2 mL solution for nebulizatio n [generic] 15 mcg Inhalation Twice daily For copd/asthma/ interstitial lung disease 15 mcg 2024 Active 2024 26979 41160 0 Twice daily Inhala tion False Clonazepam 0.5 mg tablet [generic] 0.5mg By Mouth As Needed q12 hour PRN For anxiety 0.5mg 06/28 Inactiv e 2024 37933 26200 0 By Mouth False Colace 100 mg capsule 100 mg By Mouth Twice daily For Constipation 100 mg 2024 Active 2024 83992 97123 1 Twice daily By Mouth False Boost 0.04 gram-1 kcal/mL oral liquid 1 carton By Mouth 3 times a day For malnutrition 1 carton 06/27 Inactiv e 2024 22821 78840 9 3 times a day By Mouth False Amitriptyli ne 10 mg tablet [generic] 10mg By Mouth At bedtime along with 25 mg dose to equal 35mg For anxiety 10mg 2024 Active 2024 65307 94457 1 At bedtime By Mouth False Amitriptyli ne 25 mg tablet [generic] 06/26 Inactiv e 2024 40002 22709 1 Amitriptyli ne 25 mg tablet [generic] 25 mg By Mouth At bedtime Along with 10mg to equal 35mg. for anxiety 25 mg 2024 Active 2024 44594 17270 1 At bedtime By Mouth False Boost Breeze Nutritional 0.04 gram-1.05 kcal/mL oral liquid 237 ml By Mouth Twice daily Boost Breeze 237 ml oral liquids For Early satiety, low average meal intake - please record number of mL consumed 237 ml 07/02 Inactiv e 2024 55419 32347 1 Twice daily By Mouth False Prosource [...] PRN For anxiety 0.5mg 2024 Active 2024 97248 87314 0 By Mouth False Ensure clear oral liquid [Food supplemt, lactose-red uced] 120mL By Mouth Once daily For supplement 120mL 2024 Active 2024 Once daily By Mouth False Furosemide 40 mg tablet [generic] 40 mg By Mouth Twice daily For UNSPECIFIED SYSTOLIC (CONGESTIVE) HEART FAILURE 40 mg 2024 Active 2024 75065 74615 0 Twice daily By Mouth I50.20 False Betadine Swabsticks 10 % 1 scott Topical Twice daily to bilateral heels For stage 2 pressure injury 1 scott 2024 Active 2024 50930 73054 1 Twice daily Topica l False Problems [...] weight Temperature SpO2 Blood Sugar Pulse Respirations 67234 102 23595 9 83.00 mm[Hg] - Lying Down 170.00 mm[Hg] - Lying Down 98.20 Forehead Scan 98.00 % 86.00/ min 18.00/min 98025 102 09462 4 83.00 mm[Hg] - Sitting 170.00 mm[Hg] - Sitting 98.20 Tympanic 86.00/ min 18.00/min 38397 103 63977 5 98.20 Tympanic 59298 103 65044 3 80.00 mm[Hg] - Lying Down 164.00 mm[Hg] - Lying Down 91.00/ min 20.00/min 10746 103 91579 0 80.00 mm[Hg] - Sitting 164.00 mm[Hg] - Sitting 98.20 Tympanic 91.00/ min 18.00/min 67746 103 57442 7 91.00 % 20.00/min 24278 103 00253 3 94.00 % 18.00/min 18634 103 85782 9 83577 104 73464 6 80.00 mm[Hg] - Sitting 140.00 mm[Hg] - Sitting 98.10 Tympanic 94.00 % 64.00/ min 18.00/min 56225 104 21250 1 80.00 mm[Hg] - Sitting 140.00 mm[Hg] - Sitting 98.10 Tympanic 64.00/ min 18.00/min 49775 104 11830 0 80.00 mm[Hg] - Sitting 140.00 mm[Hg] - Sitting 98.10 Tympanic 64.00/ min 18.00/min 63240 104 43432 7 73.00 mm[Hg] - Sitting 136.00 mm[Hg] - Sitting 97.90 Forehead Scan 95.00 % 74.00/ min 16.00/min 68329 104 98541 8 73.00 mm[Hg] - Sitting 135.00 mm[Hg] - Sitting 98.20 Tympanic 74.00/ min 18.00/min 51085 104 25062 6 95.00 % 18.00/min 38739 104 55992 6 96.00 % 18.00/min 65833 104 95931 4 94.00 % 18.00/min 44663 104 11612 0 18.00/mi n 34273 105 56190 0 73.00 mm[Hg] - Sitting 135.00 mm[Hg] - Sitting 98.20 Tympanic 74.00/ min 18.00/min 22274 105 89795 6 73.00 mm[Hg] - Sitting 135.00 mm[Hg] - Sitting 98.20 Tympanic 74.00/ min 20.00/min 50580 105 91867 3 53.00 mm[Hg] - Sitting 126.00 mm[Hg] - Sitting 97.00 Tympanic 99.00 % 56.00/ min 20.00/min 46878 105 16587 6 93.00 % 20.00/min 88030 105 41220 8 94.00 % 20.00/min 20562 105 16349 3 97.00 % 18.00/min 07635 105 64426 9 96.00 % 18.00/min 93700 106 04406 0 67.00 mm[Hg] - Sitting 150.00 mm[Hg] - Sitting 98.80 Forehead Scan 97.00 % 58.00/ min 16.00/min 56860 107 51613 3 136.00 NI 88496 107 83934 0 59 NI 74211 107 30156 0 61.00 mm[Hg] - Sitting 144.00 mm[Hg] - Sitting 97.90 Tympanic 93.00 % 54.00/ min 16.00/min 54177 107 32068 1 95.00 % 18.00/min 86595 107 44351 0 18.00/mi n 98795 107 82877 6 63.00 mm[Hg] - Sitting 159.00 mm[Hg] - Sitting 60.00/ min 64979 107 40760 6 94.00 % 18.00/min 28481 107 14753 3 95.00 % 18.00/min 99957 108 16693 0 55.00 mm[Hg] - Sitting 127.00 mm[Hg] - Sitting 97.80 Tympanic 95.00 % 55.00/ min 16.00/min 54731 108 46143 8 96.00 % 87277 108 41958 4 95.00 % 20.00/min 89744 108 94436 0 96.00 % 20.00/min 03096 108 24637 2 96.00 % 20.00/min 33555 109 69407 0 63.00 mm[Hg] - Sitting 131.00 mm[Hg] - Sitting 98.70 Tympanic 96.00 % 54.00/ min 18.00/min 95488 109 02834 8 94.00 % 18.00/min 10787 109 96511 2 18.00/mi n 06719 109 63932 5 97.00 % 18.00/min 77695 109 85801 2 96.00 % 18.00/min 37892 110 39882 0 55.00 mm[Hg] - Lying Down 137.00 mm[Hg] - Lying Down 97.00 Tympanic 93.00 % 63.00/ min 20.00/min 05762 110 95464 6 94.00 % 18.00/min 79705 110 30425 8 94.00 % 18.00/min 30538 110 54084 0 74.00 mm[Hg] - Sitting 161.00 mm[Hg] - Sitting 56.00/ min 20002 110 00049 1 94.00 % 18.00/min 92857 110 37958 6 18.00/mi n 39347 111 14161 9 74.00 mm[Hg] - Sitting 161.00 mm[Hg] - Sitting 97.80 Tympanic 92.00 % 56.00/ min 16.00/min 18758 111 51014 5 94.00 % 18.00/min 14396 111 04309 5 94.00 % 18.00/min 15679 111 21158 4 95.00 % 18.00/min Immunizations Vaccine Date Status Other 06/20/2024 Completed
--- OUTSIDE RECORDS SUMMARY | 2024-07-19 23:05 | External Medical Summary | Continuity Of Care Document ---
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 unit/0.1 mL intradermal injection solution [Tuberculin PPD] 0.1mL Intradermal Once daily For PPD 2nd Step Give 2nd Step PPD Day 1 and Read results Day 3 (schedule 7 days after 1st READ) 0.1mL 07/03 Inactiv e 2024 48698 42912 0 Once daily Intrad ermal False Tylenol 325 mg tablet 2 tabs By Mouth Every 4 hours as needed For Pain DO NOT EXCEED 3000 MG APAP/24 Hours 2 tabs 2024 Active 2024 12589 08189 0 Every 4 hours as needed By Mouth False Dulcolax (bisacodyl) 10 mg rectal suppository One Suppository per rectum PRN if Milk of Magnisia ineffective. Give on day 5 of no BM 1 sup 2024 Active 2024 72516 75941 1 Daily as needed Rectal False Fleet Enema 19 gram-7 gram/118 mL Administer per rectum PRN one time if dulcolax suppository not effective. Give on day 6 of no BM 1 2024 Active 2024 50287 56939 6 Daily as needed Rectal False Tylenol 325 mg tablet 2 tabs By Mouth Every 4 hours as needed For Fever >100 DO NOT EXCEED 3000 MG APAP/24 Hours 2 tabs 2024 Active 2024 99198 52168 0 Every 4 hours as needed By Mouth False Eliquis 5 mg tablet 5 mg By Mouth Twice daily For afib 5 mg 2024 Active 2024 29970 37988 1 Twice daily By Mouth False Ferrous sulfate 325 mg (65 mg iron) tablet [generic] 325 mg By Mouth Once daily For supplement 325 mg 2024 Active 2024 21392 19712 5 Once daily By Mouth False Magnesium oxide 400 mg (241.3 mg magnesium) tablet [generic] 400 mg By Mouth Once daily For supplement 400 mg 2024 Active 2024 71322 95711 2 Once daily By Mouth False Protonix 40 mg tablet,bozena yed release 40 mg By Mouth Once daily For GERD 40 mg 2024 Active 2024 87747 26393 1 Once daily By Mouth False Sotalol 120 mg tablet [generic] 120 mg By Mouth Twice daily For SVT 120 mg 2024 Active 2024 13944 34616 1 Twice daily By Mouth False Rosuvastati n 20 mg tablet [generic] 20 mg By Mouth Once daily For HLD 20 mg 2024 Active 2024 95967 94408 0 Once daily By Mouth False Arformotero l 15 mcg/2 mL solution for nebulizatio n [generic] 15 mcg Inhalation Twice daily For copd/asthma/ interstitial lung disease 15 mcg 06/20 Inactiv e 2024 47506 23215 0 Twice daily Inhala tion False Budesonide 0.5 mg/2 mL suspension for nebulizatio n [generic] 0.5 mg Inhalation Twice daily For copd/ asthma/ interstital lung disease 0.5 mg 2024 Active 2024 71710 39642 8 Twice daily Inhala tion False Furosemide 40 mg tablet [generic] 40 mg By Mouth Once daily For chronic diastolic CHF 40 mg 07/04 Inactiv e 2024 13817 94816 0 Once daily By Mouth False Furosemide 40 mg tablet [generic] 40 mg By Mouth Once daily For chronic diastolic CHF 40 mg 07/04 Inactiv e 2024 17654 06052 0 Once daily By Mouth False Ventolin HFA 90 mcg/actuati on aerosol inhaler 2 puff Inhalation Every 6 hours as needed For SOB/ wheeze 2 puff 2024 Active 2024 39874 71250 0 Every 6 hours as needed Inhala tion False Amitriptyli ne 25 mg tablet [generic] 25 mg By Mouth At bedtime For general anxiety disorder 25 mg 06/26 Inactiv e 2024 40801 20252 1 At bedtime By Mouth False Levothyroxi ne 125 mcg tablet [generic] 125 mcg By Mouth Once daily For hypothyroidis m 125 mcg 2024 Active 2024 63161 52347 0 Once daily By Mouth False Arformotero l 15 mcg/2 mL solution for nebulizatio n [generic] 06/20 Inactiv e 2024 07512 29218 0 Arformotero l 15 mcg/2 mL solution for nebulizatio n [generic] 15 mcg Inhalation Twice daily For copd/asthma/ interstitial lung disease 15 mcg 2024 Active 2024 77518 18441 0 Twice daily Inhala tion False Clonazepam 0.5 mg tablet [generic] 0.5mg By Mouth As Needed q12 hour PRN For anxiety 0.5mg 06/28 Inactiv e 2024 37935 95447 0 By Mouth False Colace 100 mg capsule 100 mg By Mouth Twice daily For Constipation 100 mg 2024 Active 2024 82381 27755 1 Twice daily By Mouth False Boost 0.04 gram-1 kcal/mL oral liquid 1 carton By Mouth 3 times a day For malnutrition 1 carton 06/27 Inactiv e 2024 36116 74899 9 3 times a day By Mouth False Amitriptyli ne 10 mg tablet [generic] 10mg By Mouth At bedtime along with 25 mg dose to equal 35mg For anxiety 10mg 2024 Active 2024 59664 82093 1 At bedtime By Mouth False Amitriptyli ne 25 mg tablet [generic] 06/26 Inactiv e 2024 67023 58408 1 Amitriptyli ne 25 mg tablet [generic] 25 mg By Mouth At bedtime Along with 10mg to equal 35mg. for anxiety 25 mg 2024 Active 2024 73437 39593 1 At bedtime By Mouth False Boost Breeze Nutritional 0.04 gram-1.05 kcal/mL oral liquid 237 ml By Mouth Twice daily Boost Breeze 237 ml oral liquids For Early satiety, low average meal intake - please record number of mL consumed 237 ml 07/02 Inactiv e 2024 48712 24220 1 Twice daily By Mouth False Prosource [...] PRN For anxiety 0.5mg 2024 Active 2024 06823 46155 0 By Mouth False Ensure clear oral liquid [Food supplemt, lactose-red uced] 120mL By Mouth Once daily For supplement 120mL 2024 Active 2024 Once daily By Mouth False Furosemide 40 mg tablet [generic] 40 mg By Mouth Twice daily For UNSPECIFIED SYSTOLIC (CONGESTIVE) HEART FAILURE 40 mg 2024 Active 2024 68884 98257 0 Twice daily By Mouth I50.20 False Betadine Swabsticks 10 % 1 scott Topical Twice daily to bilateral heels For stage 2 pressure injury 1 scott 2024 Active 2024 90659 11087 1 Twice daily Topica l False Problems [...] weight Temperature SpO2 Blood Sugar Pulse Respirations 63684 102 18608 9 83.00 mm[Hg] - Lying Down 170.00 mm[Hg] - Lying Down 98.20 Forehead Scan 98.00 % 86.00/ min 18.00/min 63321 102 20388 4 83.00 mm[Hg] - Sitting 170.00 mm[Hg] - Sitting 98.20 Tympanic 86.00/ min 18.00/min 22301 103 74880 5 98.20 Tympanic 86432 103 09475 3 80.00 mm[Hg] - Lying Down 164.00 mm[Hg] - Lying Down 91.00/ min 20.00/min 87075 103 00694 0 80.00 mm[Hg] - Sitting 164.00 mm[Hg] - Sitting 98.20 Tympanic 91.00/ min 18.00/min 46740 103 57205 7 91.00 % 20.00/min 53275 103 22679 3 94.00 % 18.00/min 77111 103 99775 9 64003 104 15390 6 80.00 mm[Hg] - Sitting 140.00 mm[Hg] - Sitting 98.10 Tympanic 94.00 % 64.00/ min 18.00/min 75338 104 24411 1 80.00 mm[Hg] - Sitting 140.00 mm[Hg] - Sitting 98.10 Tympanic 64.00/ min 18.00/min 03419 104 61796 0 80.00 mm[Hg] - Sitting 140.00 mm[Hg] - Sitting 98.10 Tympanic 64.00/ min 18.00/min 38051 104 52234 7 73.00 mm[Hg] - Sitting 136.00 mm[Hg] - Sitting 97.90 Forehead Scan 95.00 % 74.00/ min 16.00/min 85604 104 37989 8 73.00 mm[Hg] - Sitting 135.00 mm[Hg] - Sitting 98.20 Tympanic 74.00/ min 18.00/min 76774 104 97947 6 95.00 % 18.00/min 65783 104 03662 6 96.00 % 18.00/min 06668 104 66529 4 94.00 % 18.00/min 48965 104 59274 0 18.00/mi n 96768 105 32999 0 73.00 mm[Hg] - Sitting 135.00 mm[Hg] - Sitting 98.20 Tympanic 74.00/ min 18.00/min 36603 105 67378 6 73.00 mm[Hg] - Sitting 135.00 mm[Hg] - Sitting 98.20 Tympanic 74.00/ min 20.00/min 33678 105 51824 3 53.00 mm[Hg] - Sitting 126.00 mm[Hg] - Sitting 97.00 Tympanic 99.00 % 56.00/ min 20.00/min 59244 105 82022 6 93.00 % 20.00/min 41496 105 91890 8 94.00 % 20.00/min 23349 105 46690 3 97.00 % 18.00/min 68918 105 46466 9 96.00 % 18.00/min 45929 106 37900 0 67.00 mm[Hg] - Sitting 150.00 mm[Hg] - Sitting 98.80 Forehead Scan 97.00 % 58.00/ min 16.00/min 34529 107 72499 3 136.00 NI [id number] 107 81913 0 59 NI [id number] 107 61207 0 61.00 mm[Hg] - Sitting 144.00 mm[Hg] - Sitting 97.90 Tympanic 93.00 % 54.00/ min 16.00/min 08553 107 46980 1 95.00 % 18.00/min 47467 107 69654 0 18.00/mi n 76880 107 76020 6 63.00 mm[Hg] - Sitting 159.00 mm[Hg] - Sitting 60.00/ min 79119 107 11250 6 94.00 % 18.00/min 27766 107 33582 3 95.00 % 18.00/min 17827 108 87128 0 55.00 mm[Hg] - Sitting 127.00 mm[Hg] - Sitting 97.80 Tympanic 95.00 % 55.00/ min 16.00/min 93498 108 79078 8 96.00 % 69503 108 62695 4 95.00 % 20.00/min 25365 108 72245 0 96.00 % 20.00/min 37333 108 92168 2 96.00 % 20.00/min 09435 109 24798 0 63.00 mm[Hg] - Sitting 131.00 mm[Hg] - Sitting 98.70 Tympanic 96.00 % 54.00/ min 18.00/min 53493 109 04560 8 94.00 % 18.00/min 26838 109 24249 2 18.00/mi n 49753 109 65174 5 97.00 % 18.00/min 92818 109 49596 2 96.00 % 18.00/min 54663 110 35168 0 55.00 mm[Hg] - Lying Down 137.00 mm[Hg] - Lying Down 97.00 Tympanic 93.00 % 63.00/ min 20.00/min 01974 110 29373 6 94.00 % 18.00/min 09495 110 90734 8 94.00 % 18.00/min 20087 110 80441 0 74.00 mm[Hg] - Sitting 161.00 mm[Hg] - Sitting 56.00/ min 79179 110 81054 1 94.00 % 18.00/min 78979 110 38969 6 18.00/mi n 24615 111 37401 9 74.00 mm[Hg] - Sitting 161.00 mm[Hg] - Sitting 97.80 Tympanic 92.00 % 56.00/ min 16.00/min 39021 111 12658 5 94.00 % 18.00/min 24162 111 72849 5 94.00 % 18.00/min 82369 111 11630 4 95.00 % 18.00/min 64700 111 95235 3 18.00/mi n 49937 112 39048 0 58.00 mm[Hg] - Sitting 138.00 mm[Hg] - Sitting 98.20 Tympanic 92.00 % 55.00/ min 16.00/min 91785 112 17979 7 95.00 % 20.00/min 47116 112 39825 7 95.00 % 20.00/min 70063 112 19975 5 95.00 % 18.00/min 34652 112 33914 0 18.00/mi n 78896 113 92585 0 50.00 mm[Hg] - Sitting 110.00 mm[Hg] - Sitting 97.70 Forehead Scan 94.00 % 54.00/ min 20.00/min 79533 113 17183 1 95.00 % 18.00/min 05463 113 58733 2 96.00 % 18.00/min 07146 113 30902 0 95.00 % 15.00/min 47830 113 41223 4 95.00 % 18.00/min 60629 114 53779 6 55.00 mm[Hg] - Sitting 103.00 mm[Hg] - Sitting 97.50 Forehead Scan 91.00 % 55.00/ min 20.00/min 13266 114 90914 7 96.00 % 18.00/min 46277 114 01532 8 94.00 % 18.00/min 80896 114 21146 3 96.00 % 18.00/min 27567 114 68402 9 96.00 % 18.00/min 82821 114 79029 3 60.00 mm[Hg] - Sitting 110.00 mm[Hg] - Sitting 60.00/ min 26674 115 19915 0 66.00 mm[Hg] - Sitting 131.00 mm[Hg] - Sitting 97.90 Tympanic 95.00 % 71.00/ min 18.00/min 31103 115 10136 0 66.00 mm[Hg] - Sitting 125.00 mm[Hg] - Sitting 98.00 Tympanic 92.00 % 60.00/ min 16.00/min 08796 115 90676 1 96.00 % 18.00/min 71162 115 23709 5 94.00 % 18.00/min 34818 115 02104 0 95.00 % 18.00/min 16737 115 54644 7 95.00 % 18.00/min 29970 115 07339 7 78.00 mm[Hg] - Sitting 132.00 mm[Hg] - Sitting 64.00/ min 82096 116 74077 0 66.00 mm[Hg] - Sitting 121.00 mm[Hg] - Sitting 98.20 Tympanic 94.00 % 57.00/ min 16.00/min 36499 116 95.00 % 18.00/min 49657 116 85601 0 88.00 % 18.00/min 33789 116 90146 6 88.00 % 18.00/min 90807 116 24436 3 18.00/mi n 39143 116 73659 8 18.00/mi n 60432 116 43878 0 95.00 % 18.00/min 29310 117 03183 2 94.00 % 18.00/min 62068 117 00539 3 93.00 % 20.00/min 94327 117 12212 8 94.00 % 20.00/min Immunizations Vaccine Date Status Other 06/20/2024 Completed
--- OUTSIDE RECORDS SUMMARY | 2024-07-19 23:05 | External Medical Summary | Continuity Of Care Document ---
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 unit/0.1 mL intradermal injection solution [Tuberculin PPD] 0.1mL Intradermal Once daily For PPD 2nd Step Give 2nd Step PPD Day 1 and Read results Day 3 (schedule 7 days after 1st READ) 0.1mL 07/03 Inactiv e 2024 17608 29510 0 Once daily Intrad ermal False Tylenol 325 mg tablet 2 tabs By Mouth Every 4 hours as needed For Pain DO NOT EXCEED 3000 MG APAP/24 Hours 2 tabs 2024 Active 2024 79731 36740 0 Every 4 hours as needed By Mouth False Dulcolax (bisacodyl) 10 mg rectal suppository One Suppository per rectum PRN if Milk of Magnisia ineffective. Give on day 5 of no BM 1 sup 2024 Active 2024 94328 77497 1 Daily as needed Rectal False Fleet Enema 19 gram-7 gram/118 mL Administer per rectum PRN one time if dulcolax suppository not effective. Give on day 6 of no BM 1 2024 Active 2024 51138 22277 6 Daily as needed Rectal False Tylenol 325 mg tablet 2 tabs By Mouth Every 4 hours as needed For Fever >100 DO NOT EXCEED 3000 MG APAP/24 Hours 2 tabs 2024 Active 2024 73813 06020 0 Every 4 hours as needed By Mouth False Eliquis 5 mg tablet 5 mg By Mouth Twice daily For afib 5 mg 2024 Active 2024 54839 43028 1 Twice daily By Mouth False Ferrous sulfate 325 mg (65 mg iron) tablet [generic] 325 mg By Mouth Once daily For supplement 325 mg 2024 Active 2024 97498 76991 5 Once daily By Mouth False Magnesium oxide 400 mg (241.3 mg magnesium) tablet [generic] 400 mg By Mouth Once daily For supplement 400 mg 2024 Active 2024 24111 89447 2 Once daily By Mouth False Protonix 40 mg tablet,bozena yed release 40 mg By Mouth Once daily For GERD 40 mg 2024 Active 2024 79655 87225 1 Once daily By Mouth False Sotalol 120 mg tablet [generic] 120 mg By Mouth Twice daily For SVT 120 mg 2024 Active 2024 61926 83535 1 Twice daily By Mouth False Rosuvastati n 20 mg tablet [generic] 20 mg By Mouth Once daily For HLD 20 mg 2024 Active 2024 79903 39876 0 Once daily By Mouth False Arformotero l 15 mcg/2 mL solution for nebulizatio n [generic] 15 mcg Inhalation Twice daily For copd/asthma/ interstitial lung disease 15 mcg 06/20 Inactiv e 2024 10335 10195 0 Twice daily Inhala tion False Budesonide 0.5 mg/2 mL suspension for nebulizatio n [generic] 0.5 mg Inhalation Twice daily For copd/ asthma/ interstital lung disease 0.5 mg 2024 Active 2024 59325 91132 8 Twice daily Inhala tion False Furosemide 40 mg tablet [generic] 40 mg By Mouth Once daily For chronic diastolic CHF 40 mg 07/04 Inactiv e 2024 14660 84665 0 Once daily By Mouth False Furosemide 40 mg tablet [generic] 40 mg By Mouth Once daily For chronic diastolic CHF 40 mg 07/04 Inactiv e 2024 22388 11135 0 Once daily By Mouth False Ventolin HFA 90 mcg/actuati on aerosol inhaler 2 puff Inhalation Every 6 hours as needed For SOB/ wheeze 2 puff 2024 Active 2024 59058 54163 0 Every 6 hours as needed Inhala tion False Amitriptyli ne 25 mg tablet [generic] 25 mg By Mouth At bedtime For general anxiety disorder 25 mg 06/26 Inactiv e 2024 16638 24687 1 At bedtime By Mouth False Levothyroxi ne 125 mcg tablet [generic] 125 mcg By Mouth Once daily For hypothyroidis m 125 mcg 2024 Active 2024 95328 31704 0 Once daily By Mouth False Arformotero l 15 mcg/2 mL solution for nebulizatio n [generic] 06/20 Inactiv e 2024 67020 54942 0 Arformotero l 15 mcg/2 mL solution for nebulizatio n [generic] 15 mcg Inhalation Twice daily For copd/asthma/ interstitial lung disease 15 mcg 2024 Active 2024 93040 51294 0 Twice daily Inhala tion False Clonazepam 0.5 mg tablet [generic] 0.5mg By Mouth As Needed q12 hour PRN For anxiety 0.5mg 06/28 Inactiv e 2024 30838 33291 0 By Mouth False Colace 100 mg capsule 100 mg By Mouth Twice daily For Constipation 100 mg 2024 Active 2024 13501 07246 1 Twice daily By Mouth False Boost 0.04 gram-1 kcal/mL oral liquid 1 carton By Mouth 3 times a day For malnutrition 1 carton 06/27 Inactiv e 2024 81245 98957 9 3 times a day By Mouth False Amitriptyli ne 10 mg tablet [generic] 10mg By Mouth At bedtime along with 25 mg dose to equal 35mg For anxiety 10mg 2024 Active 2024 08906 66577 1 At bedtime By Mouth False Amitriptyli ne 25 mg tablet [generic] 06/26 Inactiv e 2024 40680 91844 1 Amitriptyli ne 25 mg tablet [generic] 25 mg By Mouth At bedtime Along with 10mg to equal 35mg. for anxiety 25 mg 2024 Active 2024 98391 73594 1 At bedtime By Mouth False Boost Breeze Nutritional 0.04 gram-1.05 kcal/mL oral liquid 237 ml By Mouth Twice daily Boost Breeze 237 ml oral liquids For Early satiety, low average meal intake - please record number of mL consumed 237 ml 07/02 Inactiv e 2024 70018 26829 1 Twice daily By Mouth False Prosource [...] PRN For anxiety 0.5mg 2024 Active 2024 55707 83615 0 By Mouth False Ensure clear oral liquid [Food supplemt, lactose-red uced] 120mL By Mouth Once daily For supplement 120mL 2024 Active 2024 Once daily By Mouth False Furosemide 40 mg tablet [generic] 40 mg By Mouth Twice daily For UNSPECIFIED SYSTOLIC (CONGESTIVE) HEART FAILURE 40 mg 2024 Active 2024 19318 40366 0 Twice daily By Mouth I50.20 False Betadine Swabsticks 10 % 1 scott Topical Twice daily to bilateral heels For stage 2 pressure injury 1 scott 2024 Active 2024 34303 65561 1 Twice daily Topica l False Problems [...] weight Temperature SpO2 Blood Sugar Pulse Respirations 93013 102 25176 9 83.00 mm[Hg] - Lying Down 170.00 mm[Hg] - Lying Down 98.20 Forehead Scan 98.00 % 86.00/ min 18.00/min 20218 102 92899 4 83.00 mm[Hg] - Sitting 170.00 mm[Hg] - Sitting 98.20 Tympanic 86.00/ min 18.00/min 94821 103 37898 5 98.20 Tympanic 52272 103 40897 3 80.00 mm[Hg] - Lying Down 164.00 mm[Hg] - Lying Down 91.00/ min 20.00/min 52738 103 34250 0 80.00 mm[Hg] - Sitting 164.00 mm[Hg] - Sitting 98.20 Tympanic 91.00/ min 18.00/min 40105 103 93290 7 91.00 % 20.00/min 93418 103 79936 3 94.00 % 18.00/min 54379 103 38265 9 77297 104 96073 6 80.00 mm[Hg] - Sitting 140.00 mm[Hg] - Sitting 98.10 Tympanic 94.00 % 64.00/ min 18.00/min 39623 104 06390 1 80.00 mm[Hg] - Sitting 140.00 mm[Hg] - Sitting 98.10 Tympanic 64.00/ min 18.00/min 81696 104 84032 0 80.00 mm[Hg] - Sitting 140.00 mm[Hg] - Sitting 98.10 Tympanic 64.00/ min 18.00/min 18843 104 61822 7 73.00 mm[Hg] - Sitting 136.00 mm[Hg] - Sitting 97.90 Forehead Scan 95.00 % 74.00/ min 16.00/min 35588 104 60131 8 73.00 mm[Hg] - Sitting 135.00 mm[Hg] - Sitting 98.20 Tympanic 74.00/ min 18.00/min 82015 104 38616 6 95.00 % 18.00/min 61840 104 70270 6 96.00 % 18.00/min 73007 104 04949 4 94.00 % 18.00/min 87017 104 45038 0 18.00/mi n 20493 105 13762 0 73.00 mm[Hg] - Sitting 135.00 mm[Hg] - Sitting 98.20 Tympanic 74.00/ min 18.00/min 71764 105 73769 6 73.00 mm[Hg] - Sitting 135.00 mm[Hg] - Sitting 98.20 Tympanic 74.00/ min 20.00/min 16314 105 62838 3 53.00 mm[Hg] - Sitting 126.00 mm[Hg] - Sitting 97.00 Tympanic 99.00 % 56.00/ min 20.00/min 42709 105 76825 6 93.00 % 20.00/min 12398 105 52706 8 94.00 % 20.00/min 03635 105 39977 3 97.00 % 18.00/min 64148 105 75525 9 96.00 % 18.00/min 42964 106 40613 0 67.00 mm[Hg] - Sitting 150.00 mm[Hg] - Sitting 98.80 Forehead Scan 97.00 % 58.00/ min 16.00/min 16635 107 02205 3 136.00 NI 45914 107 91458 0 59 NI 48468 107 29340 0 97.90 Tympanic Immunizations Vaccine Date Status Other 06/20/2024 Completed
--- OUTSIDE RECORDS SUMMARY | 2024-07-19 23:05 | External Medical Summary | Continuity Of Care Document ---
Author Name Unknown Address [address] [address] Organization [facility] () Care Team Providers Care Testing Engineer Name Role Phone DO Lopez Amy Primary Care Provider [phone] Allergies Allergy Reaction Start Date End Date [...] 3 0.1 mL 06/23 Inactiv e 2024 97619 18352 0 At bedtime Intrad ermal False Tubersol 5 tub. unit/0.1 mL intradermal injection solution [Tuberculin PPD] 0.1mL Intradermal Once daily For PPD 2nd Step Give 2nd Step PPD Day 1 and Read results Day 3 (schedule 7 days after 1st READ) 0.1mL 07/03 Inactiv e 2024 23518 41102 0 Once daily Intrad ermal False Tylenol 325 mg tablet 2 tabs By Mouth Every 4 hours as needed For Pain DO NOT EXCEED 3000 MG APAP/24 Hours 2 tabs 2024 Active 2024 50984 97207 0 Every 4 hours as needed By Mouth False Dulcolax (bisacodyl) 10 mg rectal suppository One Suppository per rectum PRN if Milk of Magnisia ineffective. Give on day 5 of no BM 1 sup 2024 Active 2024 94780 80048 1 Daily as needed Rectal False Fleet Enema 19 gram-7 gram/118 mL Administer per rectum PRN one time if dulcolax suppository not effective. Give on day 6 of no BM 1 2024 Active 2024 10463 00183 6 Daily as needed Rectal False Tylenol 325 mg tablet 2 tabs By Mouth Every 4 hours as needed For Fever >100 DO NOT EXCEED 3000 MG APAP/24 Hours 2 tabs 2024 Active 2024 66961 20586 0 Every 4 hours as needed By Mouth False Eliquis 5 mg tablet 5 mg By Mouth Twice daily For afib 5 mg 2024 Active 2024 64990 05248 1 Twice daily By Mouth False Ferrous sulfate 325 mg (65 mg iron) tablet [generic] 325 mg By Mouth Once daily For supplement 325 mg 2024 Active 2024 77355 93695 5 Once daily By Mouth False Magnesium oxide 400 mg (241.3 mg magnesium) tablet [generic] 400 mg By Mouth Once daily For supplement 400 mg 2024 Active 2024 65262 02748 2 Once daily By Mouth False Protonix 40 mg tablet,bozena yed release 40 mg By Mouth Once daily For GERD 40 mg 2024 Active 2024 35472 29974 1 Once daily By Mouth False Sotalol 120 mg tablet [generic] 120 mg By Mouth Twice daily For SVT 120 mg 2024 Active 2024 41784 24719 1 Twice daily By Mouth False Rosuvastati n 20 mg tablet [generic] 20 mg By Mouth Once daily For HLD 20 mg 2024 Active 2024 44393 88876 0 Once daily By Mouth False Arformotero l 15 mcg/2 mL solution for nebulizatio n [generic] 15 mcg Inhalation Twice daily For copd/asthma/ interstitial lung disease 15 mcg 06/20 Inactiv e 2024 44682 86498 0 Twice daily Inhala tion False Budesonide 0.5 mg/2 mL suspension for nebulizatio n [generic] 0.5 mg Inhalation Twice daily For copd/ asthma/ interstital lung disease 0.5 mg 2024 Active 2024 84660 41421 8 Twice daily Inhala tion False Furosemide 40 mg tablet [generic] 40 mg By Mouth Once daily For chronic diastolic CHF 40 mg 07/04 Inactiv e 2024 64277 57262 0 Once daily By Mouth False Furosemide 40 mg tablet [generic] 40 mg By Mouth Once daily For chronic diastolic CHF 40 mg 07/04 Inactiv e 2024 94274 45103 0 Once daily By Mouth False Ventolin HFA 90 mcg/actuati on aerosol inhaler 2 puff Inhalation Every 6 hours as needed For SOB/ wheeze 2 puff 2024 Active 2024 36288 20043 0 Every 6 hours as needed Inhala tion False Amitriptyli ne 25 mg tablet [generic] 25 mg By Mouth At bedtime For general anxiety disorder 25 mg 06/26 Inactiv e 2024 29956 38153 1 At bedtime By Mouth False Levothyroxi ne 125 mcg tablet [generic] 125 mcg By Mouth Once daily For hypothyroidis m 125 mcg 2024 Active 2024 29528 97768 0 Once daily By Mouth False Arformotero l 15 mcg/2 mL solution for nebulizatio n [generic] 06/20 Inactiv e 2024 17119 16925 0 Arformotero l 15 mcg/2 mL solution for nebulizatio n [generic] 15 mcg Inhalation Twice daily For copd/asthma/ interstitial lung disease 15 mcg 2024 Active 2024 37465 83466 0 Twice daily Inhala tion False Clonazepam 0.5 mg tablet [generic] 0.5mg By Mouth As Needed q12 hour PRN For anxiety 0.5mg 06/28 Inactiv e 2024 27522 55688 0 By Mouth False Colace 100 mg capsule 100 mg By Mouth Twice daily For Constipation 100 mg 2024 Active 2024 98278 07682 1 Twice daily By Mouth False Boost 0.04 gram-1 kcal/mL oral liquid 1 carton By Mouth 3 times a day For malnutrition 1 carton 06/27 Inactiv e 2024 98863 66347 9 3 times a day By Mouth False Amitriptyli ne 10 mg tablet [generic] 10mg By Mouth At bedtime along with 25 mg dose to equal 35mg For anxiety 10mg 2024 Active 2024 45018 68716 1 At bedtime By Mouth False Amitriptyli ne 25 mg tablet [generic] 06/26 Inactiv e 2024 77193 29845 1 Amitriptyli ne 25 mg tablet [generic] 25 mg By Mouth At bedtime Along with 10mg to equal 35mg. for anxiety 25 mg 2024 Active 2024 02798 26231 1 At bedtime By Mouth False Boost Breeze Nutritional 0.04 gram-1.05 kcal/mL oral liquid 237 ml By Mouth Twice daily Boost Breeze 237 ml oral liquids For Early satiety, low average meal intake - please record number of mL consumed 237 ml 07/02 Inactiv e 2024 22576 98362 1 Twice daily By Mouth False Prosource [...] PRN For anxiety 0.5mg 2024 Active 2024 35235 91497 0 By Mouth False Ensure clear oral liquid [Food supplemt, lactose-red uced] 120mL By Mouth Once daily For supplement 120mL 2024 Active 2024 Once daily By Mouth False Furosemide 40 mg tablet [generic] 40 mg By Mouth Twice daily For UNSPECIFIED SYSTOLIC (CONGESTIVE) HEART FAILURE 40 mg 2024 Active 2024 50234 92393 0 Twice daily By Mouth I50.20 False Betadine Swabsticks 10 % 1 scott Topical Twice daily to bilateral heels For stage 2 pressure injury 1 scott 2024 Active 2024 18024 30527 1 Twice daily Topica l False Problems [...] weight Temperature SpO2 Blood Sugar Pulse Respirations 17715 102 75403 9 83.00 mm[Hg] - Lying Down 170.00 mm[Hg] - Lying Down 98.20 Forehead Scan 98.00 % 86.00/ min 18.00/min 51175 102 86632 4 83.00 mm[Hg] - Sitting 170.00 mm[Hg] - Sitting 98.20 Tympanic 86.00/ min 18.00/min 57018 103 54942 5 98.20 Tympanic 89592 103 20458 3 80.00 mm[Hg] - Lying Down 164.00 mm[Hg] - Lying Down 91.00/ min 20.00/min 58222 103 67976 0 80.00 mm[Hg] - Sitting 164.00 mm[Hg] - Sitting 98.20 Tympanic 91.00/ min 18.00/min 33162 103 18894 7 91.00 % 20.00/min 48727 103 55932 3 94.00 % 18.00/min 64203 103 71390 9 84682 104 19480 6 80.00 mm[Hg] - Sitting 140.00 mm[Hg] - Sitting 98.10 Tympanic 94.00 % 64.00/ min 18.00/min 89436 104 14951 1 80.00 mm[Hg] - Sitting 140.00 mm[Hg] - Sitting 98.10 Tympanic 64.00/ min 18.00/min 41094 104 62950 0 80.00 mm[Hg] - Sitting 140.00 mm[Hg] - Sitting 98.10 Tympanic 64.00/ min 18.00/min 66048 104 53655 7 73.00 mm[Hg] - Sitting 136.00 mm[Hg] - Sitting 97.90 Forehead Scan 95.00 % 74.00/ min 16.00/min 80253 104 54834 8 73.00 mm[Hg] - Sitting 135.00 mm[Hg] - Sitting 98.20 Tympanic 74.00/ min 18.00/min 00059 104 11177 6 95.00 % 18.00/min 41119 104 66124 6 96.00 % 18.00/min 27627 104 96868 4 94.00 % 18.00/min 31750 104 01038 0 18.00/mi n 95671 105 91831 0 73.00 mm[Hg] - Sitting 135.00 mm[Hg] - Sitting 98.20 Tympanic 74.00/ min 18.00/min 86641 105 10789 6 73.00 mm[Hg] - Sitting 135.00 mm[Hg] - Sitting 98.20 Tympanic 74.00/ min 20.00/min 99089 105 62102 3 53.00 mm[Hg] - Sitting 126.00 mm[Hg] - Sitting 97.00 Tympanic 99.00 % 56.00/ min 20.00/min 30043 105 47507 6 93.00 % 20.00/min 77118 105 65622 8 94.00 % 20.00/min 51239 105 72113 3 97.00 % 18.00/min 93479 105 17439 9 96.00 % 18.00/min 79632 106 07988 0 67.00 mm[Hg] - Sitting 150.00 mm[Hg] - Sitting 98.80 Forehead Scan 97.00 % 58.00/ min 16.00/min 42769 107 03506 3 136.00 NI 48977 107 01242 0 59 NI 02871 107 85150 0 61.00 mm[Hg] - Sitting 144.00 mm[Hg] - Sitting 97.90 Tympanic 93.00 % 54.00/ min 16.00/min 61250 107 70324 1 95.00 % 18.00/min 83891 107 45911 0 18.00/mi n 57182 107 72220 6 63.00 mm[Hg] - Sitting 159.00 mm[Hg] - Sitting 60.00/ min 84609 107 98769 6 94.00 % 18.00/min 86011 107 99141 3 95.00 % 18.00/min 29086 108 54464 0 55.00 mm[Hg] - Sitting 127.00 mm[Hg] - Sitting 97.80 Tympanic 95.00 % 55.00/ min 16.00/min 70157 108 03388 8 96.00 % 11222 108 07831 4 95.00 % 20.00/min 82968 108 27337 0 96.00 % 20.00/min 70123 108 16438 2 96.00 % 20.00/min 80584 109 58613 0 63.00 mm[Hg] - Sitting 131.00 mm[Hg] - Sitting 98.70 Tympanic 96.00 % 54.00/ min 18.00/min 63024 109 53705 8 94.00 % 18.00/min 15681 109 30974 2 18.00/mi n 08301 109 43011 5 97.00 % 18.00/min 35668 109 87205 2 96.00 % 18.00/min 69585 110 95149 0 55.00 mm[Hg] - Lying Down 137.00 mm[Hg] - Lying Down 97.00 Tympanic 93.00 % 63.00/ min 20.00/min 73962 110 38138 6 94.00 % 18.00/min 02515 110 91962 8 94.00 % 18.00/min 00442 110 59242 0 74.00 mm[Hg] - Sitting 161.00 mm[Hg] - Sitting 56.00/ min 71841 110 05643 1 94.00 % 18.00/min 11012 110 62037 6 18.00/mi n 47964 111 78175 9 74.00 mm[Hg] - Sitting 161.00 mm[Hg] - Sitting 97.80 Tympanic 92.00 % 56.00/ min 16.00/min 85617 111 79927 5 94.00 % 18.00/min 41501 111 57535 5 94.00 % 18.00/min 18871 111 32381 4 95.00 % 18.00/min 61051 111 39844 3 18.00/mi n 70225 112 20714 0 58.00 mm[Hg] - Sitting 138.00 mm[Hg] - Sitting 98.20 Tympanic 92.00 % 55.00/ min 16.00/min 43715 112 22734 7 95.00 % 20.00/min 95585 112 86353 7 95.00 % 20.00/min 15072 112 58175 5 95.00 % 18.00/min 60542 112 41674 0 18.00/mi n 22044 113 24388 0 50.00 mm[Hg] - Sitting 110.00 mm[Hg] - Sitting 97.70 Forehead Scan 94.00 % 54.00/ min 20.00/min 51669 113 68344 1 95.00 % 18.00/min 27223 113 29335 2 96.00 % 18.00/min 54215 113 11628 0 95.00 % 15.00/min 62278 113 97404 4 95.00 % 18.00/min 96231 114 58617 6 55.00 mm[Hg] - Sitting 103.00 mm[Hg] - Sitting 97.50 Forehead Scan 91.00 % 55.00/ min 20.00/min 66569 114 58689 7 96.00 % 18.00/min 84516 114 50701 8 94.00 % 18.00/min 24486 114 97117 3 96.00 % 18.00/min 76771 114 89065 9 96.00 % 18.00/min 89635 114 53873 3 60.00 mm[Hg] - Sitting 110.00 mm[Hg] - Sitting 60.00/ min 23932 115 54101 0 66.00 mm[Hg] - Sitting 131.00 mm[Hg] - Sitting 97.90 Tympanic 95.00 % 71.00/ min 18.00/min 68252 115 68646 0 66.00 mm[Hg] - Sitting 125.00 mm[Hg] - Sitting 98.00 Tympanic 92.00 % 60.00/ min 16.00/min 05871 115 64043 1 96.00 % 18.00/min 89820 115 53860 5 94.00 % 18.00/min 46595 115 26495 0 95.00 % 18.00/min 08170 115 95867 7 95.00 % 18.00/min 84473 115 92115 7 78.00 mm[Hg] - Sitting 132.00 mm[Hg] - Sitting 64.00/ min 80471 116 57447 0 66.00 mm[Hg] - Sitting 121.00 mm[Hg] - Sitting 98.20 Tympanic 94.00 % 57.00/ min 16.00/min 73978 116 95.00 % 18.00/min 40292 116 36935 0 88.00 % 18.00/min 09061 116 37523 6 88.00 % 18.00/min 78635 116 75479 3 18.00/mi n 68163 116 45857 8 18.00/mi n 40305 116 96423 0 95.00 % 18.00/min 84405 117 61178 6 57.00 mm[Hg] - Sitting 132.00 mm[Hg] - Sitting 97.00 Tympanic 95.00 % 60.00/ min 18.00/min 40337 117 52610 2 94.00 % 18.00/min 53333 117 79881 3 93.00 % 20.00/min 37229 117 96437 8 94.00 % 20.00/min 69782 117 96913 2 94.00 % 18.00/min 04316 117 94260 1 18.00/mi n 67613 118 45295 8 135[place]40 [place] [address] 118 71911 6 66.00 mm[Hg] - Sitting 112.00 mm[Hg] - Sitting 97.50 Tympanic 95.00 % 57.00/ min 16.00/min 26654 118 52327 0 92.00 % 18.00/min 76860 118 66994 4 94.00 % 18.00/min 01874 118 27048 5 18.00/mi n 81973 119 41495 9 97.00 % 61.00/ min 16.00/min 18916 119 25691 7 97.00 % 61.00/ min 16.00/min 41622 119 06126 0 16.00/mi n 52103 119 62386 4 16.00/mi n Immunizations Vaccine Date Status Other 06/20/2024 Completed
--- OUTSIDE RECORDS SUMMARY | 2024-07-19 23:05 | External Medical Summary | Continuity Of Care Document ---
Author Name Unknown Address [address] [facility] () Care Team Providers Care Special Events Coordinator Name Role Phone DO Lopez Amy Primary Care Provider [phone] Allergies Allergy Reaction Start Date End Date [...] 3 0.1 mL 06/23 Inactiv e 2024 62993 04475 0 At bedtime Intrad ermal False Tubersol 5 tub. unit/0.1 mL intradermal injection solution [Tuberculin PPD] 0.1mL Intradermal Once daily For PPD 2nd Step Give 2nd Step PPD Day 1 and Read results Day 3 (schedule 7 days after 1st READ) 0.1mL 07/03 Inactiv e 2024 93225 48070 0 Once daily Intrad ermal False Tylenol 325 mg tablet 2 tabs By Mouth Every 4 hours as needed For Pain DO NOT EXCEED 3000 MG APAP/24 Hours 2 tabs 2024 Active 2024 81697 00035 0 Every 4 hours as needed By Mouth False Dulcolax (bisacodyl) 10 mg rectal suppository One Suppository per rectum PRN if Milk of Magnisia ineffective. Give on day 5 of no BM 1 sup 2024 Active 2024 02685 19521 1 Daily as needed Rectal False Fleet Enema 19 gram-7 gram/118 mL Administer per rectum PRN one time if dulcolax suppository not effective. Give on day 6 of no BM 1 2024 Active 2024 28480 25965 6 Daily as needed Rectal False Tylenol 325 mg tablet 2 tabs By Mouth Every 4 hours as needed For Fever >100 DO NOT EXCEED 3000 MG APAP/24 Hours 2 tabs 2024 Active 2024 92585 10873 0 Every 4 hours as needed By Mouth False Eliquis 5 mg tablet 5 mg By Mouth Twice daily For afib 5 mg 2024 Active 2024 25097 93122 1 Twice daily By Mouth False Ferrous sulfate 325 mg (65 mg iron) tablet [generic] 325 mg By Mouth Once daily For supplement 325 mg 2024 Active 2024 52895 49366 5 Once daily By Mouth False Magnesium oxide 400 mg (241.3 mg magnesium) tablet [generic] 400 mg By Mouth Once daily For supplement 400 mg 2024 Active 2024 34517 91436 2 Once daily By Mouth False Protonix 40 mg tablet,bozena yed release 40 mg By Mouth Once daily For GERD 40 mg 2024 Active 2024 99740 48848 1 Once daily By Mouth False Sotalol 120 mg tablet [generic] 120 mg By Mouth Twice daily For SVT 120 mg 2024 Active 2024 59821 73878 1 Twice daily By Mouth False Rosuvastati n 20 mg tablet [generic] 20 mg By Mouth Once daily For HLD 20 mg 2024 Active 2024 94709 19055 0 Once daily By Mouth False Arformotero l 15 mcg/2 mL solution for nebulizatio n [generic] 15 mcg Inhalation Twice daily For copd/asthma/ interstitial lung disease 15 mcg 06/20 Inactiv e 2024 46928 11818 0 Twice daily Inhala tion False Budesonide 0.5 mg/2 mL suspension for nebulizatio n [generic] 0.5 mg Inhalation Twice daily For copd/ asthma/ interstital lung disease 0.5 mg 2024 Active 2024 06910 68575 8 Twice daily Inhala tion False Furosemide 40 mg tablet [generic] 40 mg By Mouth Once daily For chronic diastolic CHF 40 mg 07/04 Inactiv e 2024 54010 15776 0 Once daily By Mouth False Furosemide 40 mg tablet [generic] 40 mg By Mouth Once daily For chronic diastolic CHF 40 mg 07/04 Inactiv e 2024 70203 39509 0 Once daily By Mouth False Ventolin HFA 90 mcg/actuati on aerosol inhaler 2 puff Inhalation Every 6 hours as needed For SOB/ wheeze 2 puff 2024 Active 2024 14677 36444 0 Every 6 hours as needed Inhala tion False Amitriptyli ne 25 mg tablet [generic] 25 mg By Mouth At bedtime For general anxiety disorder 25 mg 06/26 Inactiv e 2024 25152 15080 1 At bedtime By Mouth False Levothyroxi ne 125 mcg tablet [generic] 125 mcg By Mouth Once daily For hypothyroidis m 125 mcg 2024 Active 2024 47488 32147 0 Once daily By Mouth False Arformotero l 15 mcg/2 mL solution for nebulizatio n [generic] 06/20 Inactiv e 2024 78429 90894 0 Arformotero l 15 mcg/2 mL solution for nebulizatio n [generic] 15 mcg Inhalation Twice daily For copd/asthma/ interstitial lung disease 15 mcg 2024 Active 2024 36032 64413 0 Twice daily Inhala tion False Clonazepam 0.5 mg tablet [generic] 0.5mg By Mouth As Needed q12 hour PRN For anxiety 0.5mg 06/28 Inactiv e 2024 35508 18314 0 By Mouth False Colace 100 mg capsule 100 mg By Mouth Twice daily For Constipation 100 mg 2024 Active 2024 68708 88783 1 Twice daily By Mouth False Boost 0.04 gram-1 kcal/mL oral liquid 1 carton By Mouth 3 times a day For malnutrition 1 carton 06/27 Inactiv e 2024 38002 88855 9 3 times a day By Mouth False Amitriptyli ne 10 mg tablet [generic] 10mg By Mouth At bedtime along with 25 mg dose to equal 35mg For anxiety 10mg 2024 Active 2024 52072 44652 1 At bedtime By Mouth False Amitriptyli ne 25 mg tablet [generic] 06/26 Inactiv e 2024 42896 82439 1 Amitriptyli ne 25 mg tablet [generic] 25 mg By Mouth At bedtime Along with 10mg to equal 35mg. for anxiety 25 mg 2024 Active 2024 52862 04747 1 At bedtime By Mouth False Boost Breeze Nutritional 0.04 gram-1.05 kcal/mL oral liquid 237 ml By Mouth Twice daily Boost Breeze 237 ml oral liquids For Early satiety, low average meal intake - please record number of mL consumed 237 ml 07/02 Inactiv e 2024 70932 66586 1 Twice daily By Mouth False Prosource [...] PRN For anxiety 0.5mg 2024 Active 2024 18580 12523 0 By Mouth False Ensure clear oral liquid [Food supplemt, lactose-red uced] 120mL By Mouth Once daily For supplement 120mL 2024 Active 2024 Once daily By Mouth False Furosemide 40 mg tablet [generic] 40 mg By Mouth Twice daily For UNSPECIFIED SYSTOLIC (CONGESTIVE) HEART FAILURE 40 mg 2024 Active 2024 26770 87030 0 Twice daily By Mouth I50.20 False Betadine Swabsticks 10 % 1 scott Topical Twice daily to bilateral heels For stage 2 pressure injury 1 scott 2024 Active 2024 21543 88266 1 Twice daily Topica l False Problems [...] weight Temperature SpO2 Blood Sugar Pulse Respirations 49995 102 18832 9 83.00 mm[Hg] - Lying Down 170.00 mm[Hg] - Lying Down 98.20 Forehead Scan 98.00 % 86.00/ min 18.00/min 07363 102 24771 4 83.00 mm[Hg] - Sitting 170.00 mm[Hg] - Sitting 98.20 Tympanic 86.00/ min 18.00/min 93431 103 23772 5 98.20 Tympanic 13219 103 70643 3 80.00 mm[Hg] - Lying Down 164.00 mm[Hg] - Lying Down 91.00/ min 20.00/min 92546 103 41927 0 80.00 mm[Hg] - Sitting 164.00 mm[Hg] - Sitting 98.20 Tympanic 91.00/ min 18.00/min 00840 103 90923 7 91.00 % 20.00/min 35515 103 20149 3 94.00 % 18.00/min 79221 103 68840 9 57030 104 05098 6 80.00 mm[Hg] - Sitting 140.00 mm[Hg] - Sitting 98.10 Tympanic 94.00 % 64.00/ min 18.00/min 21082 104 86538 1 80.00 mm[Hg] - Sitting 140.00 mm[Hg] - Sitting 98.10 Tympanic 64.00/ min 18.00/min 56344 104 21001 0 80.00 mm[Hg] - Sitting 140.00 mm[Hg] - Sitting 98.10 Tympanic 64.00/ min 18.00/min 71709 104 11148 7 73.00 mm[Hg] - Sitting 136.00 mm[Hg] - Sitting 97.90 Forehead Scan 95.00 % 74.00/ min 16.00/min 60509 104 41837 8 73.00 mm[Hg] - Sitting 135.00 mm[Hg] - Sitting 98.20 Tympanic 74.00/ min 18.00/min 02329 104 61175 6 95.00 % 18.00/min 00129 104 71225 6 96.00 % 18.00/min 47220 104 36415 4 94.00 % 18.00/min 82447 104 92435 0 18.00/mi n 96079 105 84776 0 73.00 mm[Hg] - Sitting 135.00 mm[Hg] - Sitting 98.20 Tympanic 74.00/ min 18.00/min 02398 105 06953 6 73.00 mm[Hg] - Sitting 135.00 mm[Hg] - Sitting 98.20 Tympanic 74.00/ min 20.00/min 04527 105 46112 3 53.00 mm[Hg] - Sitting 126.00 mm[Hg] - Sitting 97.00 Tympanic 99.00 % 56.00/ min 20.00/min 33491 105 36683 6 93.00 % 20.00/min 83581 105 62538 8 94.00 % 20.00/min 77678 105 45183 3 97.00 % 18.00/min 44713 105 09765 9 96.00 % 18.00/min 00942 106 41795 0 67.00 mm[Hg] - Sitting 150.00 mm[Hg] - Sitting 98.80 Forehead Scan 97.00 % 58.00/ min 16.00/min 53389 107 61769 3 136.00 NI 40324 107 34073 0 59 NI 69518 107 15172 0 61.00 mm[Hg] - Sitting 144.00 mm[Hg] - Sitting 97.90 Tympanic 93.00 % 54.00/ min 16.00/min 76019 107 54661 1 95.00 % 18.00/min 32047 107 80293 0 18.00/mi n 89262 107 13465 6 63.00 mm[Hg] - Sitting 159.00 mm[Hg] - Sitting 60.00/ min 26733 107 47447 6 94.00 % 18.00/min 87898 107 49754 3 95.00 % 18.00/min 50583 108 55103 0 55.00 mm[Hg] - Sitting 127.00 mm[Hg] - Sitting 97.80 Tympanic 95.00 % 55.00/ min 16.00/min 57585 108 33963 8 96.00 % 92353 108 15656 4 95.00 % 20.00/min 38159 108 73818 0 96.00 % 20.00/min 18191 108 08167 2 96.00 % 20.00/min 42278 109 18786 0 63.00 mm[Hg] - Sitting 131.00 mm[Hg] - Sitting 98.70 Tympanic 96.00 % 54.00/ min 18.00/min 72339 109 38775 8 94.00 % 18.00/min 40173 109 27036 2 18.00/mi n 41244 109 16651 5 97.00 % 18.00/min 56011 109 50976 2 96.00 % 18.00/min 98549 110 80571 0 55.00 mm[Hg] - Lying Down 137.00 mm[Hg] - Lying Down 97.00 Tympanic 93.00 % 63.00/ min 20.00/min 98994 110 91489 6 94.00 % 18.00/min 23813 110 72066 8 94.00 % 18.00/min 06198 110 37517 0 74.00 mm[Hg] - Sitting 161.00 mm[Hg] - Sitting 56.00/ min 99493 110 58243 1 94.00 % 18.00/min 21319 110 81047 6 18.00/mi n 15778 111 82567 9 74.00 mm[Hg] - Sitting 161.00 mm[Hg] - Sitting 97.80 Tympanic 92.00 % 56.00/ min 16.00/min 55912 111 23841 5 94.00 % 18.00/min 88640 111 18213 5 94.00 % 18.00/min 28094 111 58175 4 95.00 % 18.00/min 57700 111 03123 3 18.00/mi n Immunizations Vaccine Date Status Other 06/20/2024 Completed
--- OUTSIDE RECORDS SUMMARY | 2024-07-19 23:05 | External Medical Summary | Continuity Of Care Document ---
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 unit/0.1 mL intradermal injection solution [Tuberculin PPD] 0.1mL Intradermal Once daily For PPD 2nd Step Give 2nd Step PPD Day 1 and Read results Day 3 (schedule 7 days after 1st READ) 0.1mL 07/03 Inactiv e 2024 02909 48679 0 Once daily Intrad ermal False Tylenol 325 mg tablet 2 tabs By Mouth Every 4 hours as needed For Pain DO NOT EXCEED 3000 MG APAP/24 Hours 2 tabs 2024 Active 2024 95567 99078 0 Every 4 hours as needed By Mouth False Dulcolax (bisacodyl) 10 mg rectal suppository One Suppository per rectum PRN if Milk of Magnisia ineffective. Give on day 5 of no BM 1 sup 2024 Active 2024 68255 26516 1 Daily as needed Rectal False Fleet Enema 19 gram-7 gram/118 mL Administer per rectum PRN one time if dulcolax suppository not effective. Give on day 6 of no BM 1 2024 Active 2024 17479 99872 6 Daily as needed Rectal False Tylenol 325 mg tablet 2 tabs By Mouth Every 4 hours as needed For Fever >100 DO NOT EXCEED 3000 MG APAP/24 Hours 2 tabs 2024 Active 2024 61288 64910 0 Every 4 hours as needed By Mouth False Eliquis 5 mg tablet 5 mg By Mouth Twice daily For afib 5 mg 2024 Active 2024 45383 56107 1 Twice daily By Mouth False Ferrous sulfate 325 mg (65 mg iron) tablet [generic] 325 mg By Mouth Once daily For supplement 325 mg 2024 Active 2024 07519 13126 5 Once daily By Mouth False Magnesium oxide 400 mg (241.3 mg magnesium) tablet [generic] 400 mg By Mouth Once daily For supplement 400 mg 2024 Active 2024 01997 83185 2 Once daily By Mouth False Protonix 40 mg tablet,bozena yed release 40 mg By Mouth Once daily For GERD 40 mg 2024 Active 2024 21730 27180 1 Once daily By Mouth False Sotalol 120 mg tablet [generic] 120 mg By Mouth Twice daily For SVT 120 mg 2024 Active 2024 60564 26087 1 Twice daily By Mouth False Rosuvastati n 20 mg tablet [generic] 20 mg By Mouth Once daily For HLD 20 mg 2024 Active 2024 40763 02638 0 Once daily By Mouth False Arformotero l 15 mcg/2 mL solution for nebulizatio n [generic] 15 mcg Inhalation Twice daily For copd/asthma/ interstitial lung disease 15 mcg 06/20 Inactiv e 2024 12640 15980 0 Twice daily Inhala tion False Budesonide 0.5 mg/2 mL suspension for nebulizatio n [generic] 0.5 mg Inhalation Twice daily For copd/ asthma/ interstital lung disease 0.5 mg 2024 Active 2024 92861 71823 8 Twice daily Inhala tion False Furosemide 40 mg tablet [generic] 40 mg By Mouth Once daily For chronic diastolic CHF 40 mg 07/04 Inactiv e 2024 38965 96966 0 Once daily By Mouth False Furosemide 40 mg tablet [generic] 40 mg By Mouth Once daily For chronic diastolic CHF 40 mg 07/04 Inactiv e 2024 50043 45472 0 Once daily By Mouth False Ventolin HFA 90 mcg/actuati on aerosol inhaler 2 puff Inhalation Every 6 hours as needed For SOB/ wheeze 2 puff 2024 Active 2024 26050 77855 0 Every 6 hours as needed Inhala tion False Amitriptyli ne 25 mg tablet [generic] 25 mg By Mouth At bedtime For general anxiety disorder 25 mg 06/26 Inactiv e 2024 64604 32024 1 At bedtime By Mouth False Levothyroxi ne 125 mcg tablet [generic] 125 mcg By Mouth Once daily For hypothyroidis m 125 mcg 2024 Active 2024 39983 78940 0 Once daily By Mouth False Arformotero l 15 mcg/2 mL solution for nebulizatio n [generic] 06/20 Inactiv e 2024 26489 16550 0 Arformotero l 15 mcg/2 mL solution for nebulizatio n [generic] 15 mcg Inhalation Twice daily For copd/asthma/ interstitial lung disease 15 mcg 2024 Active 2024 81595 39201 0 Twice daily Inhala tion False Clonazepam 0.5 mg tablet [generic] 0.5mg By Mouth As Needed q12 hour PRN For anxiety 0.5mg 06/28 Inactiv e 2024 20103 44044 0 By Mouth False Colace 100 mg capsule 100 mg By Mouth Twice daily For Constipation 100 mg 2024 Active 2024 69438 65136 1 Twice daily By Mouth False Boost 0.04 gram-1 kcal/mL oral liquid 1 carton By Mouth 3 times a day For malnutrition 1 carton 06/27 Inactiv e 2024 19763 70824 9 3 times a day By Mouth False Amitriptyli ne 10 mg tablet [generic] 10mg By Mouth At bedtime along with 25 mg dose to equal 35mg For anxiety 10mg 2024 Active 2024 89457 22150 1 At bedtime By Mouth False Amitriptyli ne 25 mg tablet [generic] 06/26 Inactiv e 2024 66789 51841 1 Amitriptyli ne 25 mg tablet [generic] 25 mg By Mouth At bedtime Along with 10mg to equal 35mg. for anxiety 25 mg 2024 Active 2024 56913 86328 1 At bedtime By Mouth False Boost Breeze Nutritional 0.04 gram-1.05 kcal/mL oral liquid 237 ml By Mouth Twice daily Boost Breeze 237 ml oral liquids For Early satiety, low average meal intake - please record number of mL consumed 237 ml 07/02 Inactiv e 2024 72525 84292 1 Twice daily By Mouth False Prosource [...] PRN For anxiety 0.5mg 2024 Active 2024 61736 74478 0 By Mouth False Ensure clear oral liquid [Food supplemt, lactose-red uced] 120mL By Mouth Once daily For supplement 120mL 2024 Active 2024 Once daily By Mouth False Furosemide 40 mg tablet [generic] 40 mg By Mouth Twice daily For UNSPECIFIED SYSTOLIC (CONGESTIVE) HEART FAILURE 40 mg 2024 Active 2024 08810 88895 0 Twice daily By Mouth I50.20 False Betadine Swabsticks 10 % 1 scott Topical Twice daily to bilateral heels For stage 2 pressure injury 1 scott 2024 Active 2024 79236 90560 1 Twice daily Topica l False Problems [...] weight Temperature SpO2 Blood Sugar Pulse Respirations 99680 102 21500 9 83.00 mm[Hg] - Lying Down 170.00 mm[Hg] - Lying Down 98.20 Forehead Scan 98.00 % 86.00/ min 18.00/min 21013 102 15745 4 83.00 mm[Hg] - Sitting 170.00 mm[Hg] - Sitting 98.20 Tympanic 86.00/ min 18.00/min 23025 103 76804 5 98.20 Tympanic 58624 103 59855 3 80.00 mm[Hg] - Lying Down 164.00 mm[Hg] - Lying Down 91.00/ min 20.00/min 39586 103 14199 0 80.00 mm[Hg] - Sitting 164.00 mm[Hg] - Sitting 98.20 Tympanic 91.00/ min 18.00/min 46390 103 84437 7 91.00 % 20.00/min 68806 103 89155 3 94.00 % 18.00/min 74367 103 16218 9 00850 104 97116 6 80.00 mm[Hg] - Sitting 140.00 mm[Hg] - Sitting 98.10 Tympanic 94.00 % 64.00/ min 18.00/min 77985 104 86800 1 80.00 mm[Hg] - Sitting 140.00 mm[Hg] - Sitting 98.10 Tympanic 64.00/ min 18.00/min 28023 104 68368 0 80.00 mm[Hg] - Sitting 140.00 mm[Hg] - Sitting 98.10 Tympanic 64.00/ min 18.00/min 01508 104 67696 7 73.00 mm[Hg] - Sitting 136.00 mm[Hg] - Sitting 97.90 Forehead Scan 95.00 % 74.00/ min 16.00/min 34707 104 58158 8 73.00 mm[Hg] - Sitting 135.00 mm[Hg] - Sitting 98.20 Tympanic 74.00/ min 18.00/min 44168 104 52921 6 95.00 % 18.00/min 73295 104 21573 6 96.00 % 18.00/min 79738 104 34957 4 94.00 % 18.00/min 03173 104 22231 0 18.00/mi n 24840 105 97373 0 73.00 mm[Hg] - Sitting 135.00 mm[Hg] - Sitting 98.20 Tympanic 74.00/ min 18.00/min 05627 105 76830 6 73.00 mm[Hg] - Sitting 135.00 mm[Hg] - Sitting 98.20 Tympanic 74.00/ min 20.00/min 22688 105 33392 3 53.00 mm[Hg] - Sitting 126.00 mm[Hg] - Sitting 97.00 Tympanic 99.00 % 56.00/ min 20.00/min 11990 105 92985 6 93.00 % 20.00/min 64943 105 46902 8 94.00 % 20.00/min 61917 105 49361 3 97.00 % 18.00/min 75236 105 37973 9 96.00 % 18.00/min 87874 106 25551 0 67.00 mm[Hg] - Sitting 150.00 mm[Hg] - Sitting 98.80 Forehead Scan 97.00 % 58.00/ min 16.00/min 27640 107 35265 3 136.00 NI 34937 107 09015 0 59 NI 30229 107 27864 0 61.00 mm[Hg] - Sitting 144.00 mm[Hg] - Sitting 97.90 Tympanic 93.00 % 54.00/ min 16.00/min 30171 107 71137 1 95.00 % 18.00/min 85201 107 33767 0 18.00/mi n 07731 107 51276 6 63.00 mm[Hg] - Sitting 159.00 mm[Hg] - Sitting 60.00/ min 68503 107 58878 6 94.00 % 18.00/min 32532 107 31096 3 95.00 % 18.00/min 93033 108 01668 0 55.00 mm[Hg] - Sitting 127.00 mm[Hg] - Sitting 97.80 Tympanic 95.00 % 55.00/ min 16.00/min 93578 108 85277 8 96.00 % 68720 108 73218 4 95.00 % 20.00/min 70910 108 90389 0 96.00 % 20.00/min 01285 108 75826 2 96.00 % 20.00/min 33123 109 08825 0 63.00 mm[Hg] - Sitting 131.00 mm[Hg] - Sitting 98.70 Tympanic 96.00 % 54.00/ min 18.00/min 45138 109 31808 8 94.00 % 18.00/min 13284 109 63116 2 18.00/mi n 96777 109 58873 5 97.00 % 18.00/min 20945 109 00557 2 96.00 % 18.00/min 55413 110 66316 0 55.00 mm[Hg] - Lying Down 137.00 mm[Hg] - Lying Down 97.00 Tympanic 93.00 % 63.00/ min 20.00/min 80918 110 59859 6 94.00 % 18.00/min 32334 110 47189 8 94.00 % 18.00/min 48499 110 44764 0 74.00 mm[Hg] - Sitting 161.00 mm[Hg] - Sitting 56.00/ min 83029 110 18139 1 94.00 % 18.00/min 47018 110 76242 6 18.00/mi n 40667 111 68573 9 74.00 mm[Hg] - Sitting 161.00 mm[Hg] - Sitting 97.80 Tympanic 92.00 % 56.00/ min 16.00/min 51941 111 29708 5 94.00 % 18.00/min 49538 111 76416 5 94.00 % 18.00/min 37996 111 79606 4 95.00 % 18.00/min 80175 111 97679 3 18.00/mi n 47322 112 42789 0 58.00 mm[Hg] - Sitting 138.00 mm[Hg] - Sitting 98.20 Tympanic 92.00 % 55.00/ min 16.00/min 96803 112 75099 7 95.00 % 20.00/min 15770 112 93517 7 95.00 % 20.00/min 85678 112 82584 5 95.00 % 18.00/min 60789 112 04550 0 18.00/mi n 24517 113 00811 0 50.00 mm[Hg] - Sitting 110.00 mm[Hg] - Sitting 97.70 Forehead Scan 94.00 % 54.00/ min 20.00/min 82006 113 97558 1 95.00 % 18.00/min 13147 113 87788 2 96.00 % 18.00/min 72215 113 12408 0 95.00 % 15.00/min 07181 113 30157 4 95.00 % 18.00/min 49711 114 62045 6 55.00 mm[Hg] - Sitting 103.00 mm[Hg] - Sitting 97.50 Forehead Scan 91.00 % 55.00/ min 20.00/min 68771 114 21101 7 96.00 % 18.00/min 99480 114 96371 8 94.00 % 18.00/min 64363 114 76173 3 96.00 % 18.00/min 46411 114 92639 9 96.00 % 18.00/min 07050 114 02441 3 60.00 mm[Hg] - Sitting 110.00 mm[Hg] - Sitting 60.00/ min 31212 115 45773 0 66.00 mm[Hg] - Sitting 131.00 mm[Hg] - Sitting 97.90 Tympanic 95.00 % 71.00/ min 18.00/min 12588 115 20887 0 66.00 mm[Hg] - Sitting 125.00 mm[Hg] - Sitting 98.00 Tympanic 92.00 % 60.00/ min 16.00/min 81454 115 51569 1 96.00 % 18.00/min 46438 115 96103 5 94.00 % 18.00/min 16448 115 35928 0 95.00 % 18.00/min 38867 115 87383 7 95.00 % 18.00/min 77180 115 59737 7 78.00 mm[Hg] - Sitting 132.00 mm[Hg] - Sitting 64.00/ min 98205 116 63164 0 88.00 % 18.00/min 34137 116 68084 6 88.00 % 18.00/min 33011 116 12741 3 18.00/mi n 73541 116 33719 8 18.00/mi n Immunizations Vaccine Date Status Other 06/20/2024 Completed
--- OUTSIDE RECORDS SUMMARY | 2024-07-19 23:05 | External Medical Summary | Continuity Of Care Document ---
Author Name Unknown Address [address] [address] Organization [facility] [place] [facility] () Care Team Providers Care Dumper Name Role Phone DO Lopez Amy Primary Care Provider [phone] Allergies Allergy Reaction Start Date End Date [...] 3 0.1 mL 06/23 Inactiv e 2024 26760 97734 0 At bedtime Intrad ermal False Tubersol 5 tub. unit/0.1 mL intradermal injection solution [Tuberculin PPD] 0.1mL Intradermal Once daily For PPD 2nd Step Give 2nd Step PPD Day 1 and Read results Day 3 (schedule 7 days after 1st READ) 0.1mL 07/03 Inactiv e 2024 82164 58267 0 Once daily Intrad ermal False Tylenol 325 mg tablet 2 tabs By Mouth Every 4 hours as needed For Pain DO NOT EXCEED 3000 MG APAP/24 Hours 2 tabs 2024 Active 2024 28018 38725 0 Every 4 hours as needed By Mouth False Dulcolax (bisacodyl) 10 mg rectal suppository One Suppository per rectum PRN if Milk of Magnisia ineffective. Give on day 5 of no BM 1 sup 2024 Active 2024 89257 17567 1 Daily as needed Rectal False Fleet Enema 19 gram-7 gram/118 mL Administer per rectum PRN one time if dulcolax suppository not effective. Give on day 6 of no BM 1 2024 Active 2024 56222 10473 6 Daily as needed Rectal False Tylenol 325 mg tablet 2 tabs By Mouth Every 4 hours as needed For Fever >100 DO NOT EXCEED 3000 MG APAP/24 Hours 2 tabs 2024 Active 2024 28697 54127 0 Every 4 hours as needed By Mouth False Eliquis 5 mg tablet 5 mg By Mouth Twice daily For afib 5 mg 2024 Active 2024 27388 60927 1 Twice daily By Mouth False Ferrous sulfate 325 mg (65 mg iron) tablet [generic] 325 mg By Mouth Once daily For supplement 325 mg 2024 Active 2024 39434 37870 5 Once daily By Mouth False Magnesium oxide 400 mg (241.3 mg magnesium) tablet [generic] 400 mg By Mouth Once daily For supplement 400 mg 2024 Active 2024 56781 20100 2 Once daily By Mouth False Protonix 40 mg tablet,bozena yed release 40 mg By Mouth Once daily For GERD 40 mg 2024 Active 2024 06878 36914 1 Once daily By Mouth False Sotalol 120 mg tablet [generic] 120 mg By Mouth Twice daily For SVT 120 mg 2024 Active 2024 01464 05780 1 Twice daily By Mouth False Rosuvastati n 20 mg tablet [generic] 20 mg By Mouth Once daily For HLD 20 mg 2024 Active 2024 27878 84660 0 Once daily By Mouth False Arformotero l 15 mcg/2 mL solution for nebulizatio n [generic] 15 mcg Inhalation Twice daily For copd/asthma/ interstitial lung disease 15 mcg 06/20 Inactiv e 2024 83169 90607 0 Twice daily Inhala tion False Budesonide 0.5 mg/2 mL suspension for nebulizatio n [generic] 0.5 mg Inhalation Twice daily For copd/ asthma/ interstital lung disease 0.5 mg 2024 Active 2024 01444 65524 8 Twice daily Inhala tion False Furosemide 40 mg tablet [generic] 40 mg By Mouth Once daily For chronic diastolic CHF 40 mg 07/04 Inactiv e 2024 93413 30537 0 Once daily By Mouth False Furosemide 40 mg tablet [generic] 40 mg By Mouth Once daily For chronic diastolic CHF 40 mg 07/04 Inactiv e 2024 17878 91873 0 Once daily By Mouth False Ventolin HFA 90 mcg/actuati on aerosol inhaler 2 puff Inhalation Every 6 hours as needed For SOB/ wheeze 2 puff 2024 Active 2024 58716 52268 0 Every 6 hours as needed Inhala tion False Amitriptyli ne 25 mg tablet [generic] 25 mg By Mouth At bedtime For general anxiety disorder 25 mg 06/26 Inactiv e 2024 14896 20016 1 At bedtime By Mouth False Levothyroxi ne 125 mcg tablet [generic] 125 mcg By Mouth Once daily For hypothyroidis m 125 mcg 2024 Active 2024 75870 07427 0 Once daily By Mouth False Arformotero l 15 mcg/2 mL solution for nebulizatio n [generic] 06/20 Inactiv e 2024 01515 14798 0 Arformotero l 15 mcg/2 mL solution for nebulizatio n [generic] 15 mcg Inhalation Twice daily For copd/asthma/ interstitial lung disease 15 mcg 2024 Active 2024 87300 73330 0 Twice daily Inhala tion False Clonazepam 0.5 mg tablet [generic] 0.5mg By Mouth As Needed q12 hour PRN For anxiety 0.5mg 06/28 Inactiv e 2024 79159 31696 0 By Mouth False Colace 100 mg capsule 100 mg By Mouth Twice daily For Constipation 100 mg 2024 Active 2024 30409 92491 1 Twice daily By Mouth False Boost 0.04 gram-1 kcal/mL oral liquid 1 carton By Mouth 3 times a day For malnutrition 1 carton 06/27 Inactiv e 2024 06451 31222 9 3 times a day By Mouth False Amitriptyli ne 10 mg tablet [generic] 10mg By Mouth At bedtime along with 25 mg dose to equal 35mg For anxiety 10mg 2024 Active 2024 24669 30167 1 At bedtime By Mouth False Amitriptyli ne 25 mg tablet [generic] 06/26 Inactiv e 2024 68812 32642 1 Amitriptyli ne 25 mg tablet [generic] 25 mg By Mouth At bedtime Along with 10mg to equal 35mg. for anxiety 25 mg 2024 Active 2024 54840 70775 1 At bedtime By Mouth False Boost Breeze Nutritional 0.04 gram-1.05 kcal/mL oral liquid 237 ml By Mouth Twice daily Boost Breeze 237 ml oral liquids For Early satiety, low average meal intake - please record number of mL consumed 237 ml 07/02 Inactiv e 2024 31061 99634 1 Twice daily By Mouth False Prosource [...] PRN For anxiety 0.5mg 2024 Active 2024 74197 42601 0 By Mouth False Ensure clear oral liquid [Food supplemt, lactose-red uced] 120mL By Mouth Once daily For supplement 120mL 2024 Active 2024 Once daily By Mouth False Furosemide 40 mg tablet [generic] 40 mg By Mouth Twice daily For UNSPECIFIED SYSTOLIC (CONGESTIVE) HEART FAILURE 40 mg 2024 Active 2024 29469 76832 0 Twice daily By Mouth I50.20 False Betadine Swabsticks 10 % 1 scott Topical Twice daily to bilateral heels For stage 2 pressure injury 1 scott 2024 Active 2024 29459 18486 1 Twice daily Topica l False Problems [...] weight Temperature SpO2 Blood Sugar Pulse Respirations 83868 102 57830 9 83.00 mm[Hg] - Lying Down 170.00 mm[Hg] - Lying Down 98.20 Forehead Scan 98.00 % 86.00/ min 18.00/min 57236 102 92344 4 83.00 mm[Hg] - Sitting 170.00 mm[Hg] - Sitting 98.20 Tympanic 86.00/ min 18.00/min 14861 103 88798 5 98.20 Tympanic 16055 103 14421 3 80.00 mm[Hg] - Lying Down 164.00 mm[Hg] - Lying Down 91.00/ min 20.00/min 81673 103 30616 0 80.00 mm[Hg] - Sitting 164.00 mm[Hg] - Sitting 98.20 Tympanic 91.00/ min 18.00/min 20454 103 13550 7 91.00 % 20.00/min 69670 103 40616 3 94.00 % 18.00/min 14390 103 23158 9 35785 104 96989 6 80.00 mm[Hg] - Sitting 140.00 mm[Hg] - Sitting 98.10 Tympanic 94.00 % 64.00/ min 18.00/min 88976 104 48462 1 80.00 mm[Hg] - Sitting 140.00 mm[Hg] - Sitting 98.10 Tympanic 64.00/ min 18.00/min 90419 104 66248 0 80.00 mm[Hg] - Sitting 140.00 mm[Hg] - Sitting 98.10 Tympanic 64.00/ min 18.00/min 88725 104 60432 7 73.00 mm[Hg] - Sitting 136.00 mm[Hg] - Sitting 97.90 Forehead Scan 95.00 % 74.00/ min 16.00/min 87505 104 46396 8 73.00 mm[Hg] - Sitting 135.00 mm[Hg] - Sitting 98.20 Tympanic 74.00/ min 18.00/min 18470 104 42752 6 95.00 % 18.00/min 06738 104 36593 6 96.00 % 18.00/min 88521 104 67323 4 94.00 % 18.00/min 63700 104 19649 0 18.00/mi n 07109 105 30940 0 73.00 mm[Hg] - Sitting 135.00 mm[Hg] - Sitting 98.20 Tympanic 74.00/ min 18.00/min 34018 105 42584 6 73.00 mm[Hg] - Sitting 135.00 mm[Hg] - Sitting 98.20 Tympanic 74.00/ min 20.00/min 90451 105 89140 3 53.00 mm[Hg] - Sitting 126.00 mm[Hg] - Sitting 97.00 Tympanic 99.00 % 56.00/ min 20.00/min 46143 105 40098 6 93.00 % 20.00/min 74241 105 48842 8 94.00 % 20.00/min 65902 105 14840 3 97.00 % 18.00/min 92982 105 11685 9 96.00 % 18.00/min 90518 106 61032 0 67.00 mm[Hg] - Sitting 150.00 mm[Hg] - Sitting 98.80 Forehead Scan 97.00 % 58.00/ min 16.00/min 11311 107 06396 3 136.00 NI 58430 107 98761 0 59 NI 45533 107 98990 0 61.00 mm[Hg] - Sitting 144.00 mm[Hg] - Sitting 97.90 Tympanic 93.00 % 54.00/ min 16.00/min 23087 107 99196 1 95.00 % 18.00/min 30574 107 65891 0 18.00/mi n 13135 107 60128 6 63.00 mm[Hg] - Sitting 159.00 mm[Hg] - Sitting 60.00/ min 33405 107 03267 6 94.00 % 18.00/min 44222 107 44394 3 95.00 % 18.00/min 96572 108 80044 0 55.00 mm[Hg] - Sitting 127.00 mm[Hg] - Sitting 97.80 Tympanic 95.00 % 55.00/ min 16.00/min 22096 108 76466 8 96.00 % 73537 108 17016 4 95.00 % 20.00/min 79586 108 96231 0 96.00 % 20.00/min 41344 108 37822 2 96.00 % 20.00/min 98642 109 39154 0 63.00 mm[Hg] - Sitting 131.00 mm[Hg] - Sitting 98.70 Tympanic 96.00 % 54.00/ min 18.00/min 59331 109 73751 8 94.00 % 18.00/min 28289 109 07416 2 18.00/mi n 67552 109 80627 5 97.00 % 18.00/min 27112 109 51201 2 96.00 % 18.00/min 82379 110 03659 0 55.00 mm[Hg] - Lying Down 137.00 mm[Hg] - Lying Down 97.00 Tympanic 93.00 % 63.00/ min 20.00/min 97984 110 24526 6 94.00 % 18.00/min 83928 110 85432 8 94.00 % 18.00/min 36056 110 95079 0 74.00 mm[Hg] - Sitting 161.00 mm[Hg] - Sitting 56.00/ min 86336 110 23349 1 94.00 % 18.00/min 91644 110 69222 6 18.00/mi n 18576 111 62174 9 74.00 mm[Hg] - Sitting 161.00 mm[Hg] - Sitting 97.80 Tympanic 92.00 % 56.00/ min 16.00/min 28510 111 45566 5 94.00 % 18.00/min 93653 111 64014 5 94.00 % 18.00/min 80817 111 62277 4 95.00 % 18.00/min 37371 111 40868 3 18.00/mi n 05722 112 50565 0 58.00 mm[Hg] - Sitting 138.00 mm[Hg] - Sitting 98.20 Tympanic 92.00 % 55.00/ min 16.00/min 66709 112 67791 7 95.00 % 20.00/min 57604 112 64530 7 95.00 % 20.00/min 12308 112 55537 5 95.00 % 18.00/min 83234 112 89035 0 18.00/mi n 36257 113 24841 0 50.00 mm[Hg] - Sitting 110.00 mm[Hg] - Sitting 97.70 Forehead Scan 94.00 % 54.00/ min 20.00/min 13935 113 66071 1 95.00 % 18.00/min 12931 113 35409 2 96.00 % 18.00/min 66348 113 47549 0 95.00 % 15.00/min 13727 113 78404 4 95.00 % 18.00/min 53894 114 28194 6 55.00 mm[Hg] - Sitting 103.00 mm[Hg] - Sitting 97.50 Forehead Scan 91.00 % 55.00/ min 20.00/min 68563 114 68501 7 96.00 % 18.00/min 88380 114 74972 8 94.00 % 18.00/min 48318 114 18168 3 96.00 % 18.00/min 49579 114 64172 9 96.00 % 18.00/min 21704 114 50426 3 60.00 mm[Hg] - Sitting 110.00 mm[Hg] - Sitting 60.00/ min 60466 115 22281 0 66.00 mm[Hg] - Sitting 131.00 mm[Hg] - Sitting 97.90 Tympanic 95.00 % 71.00/ min 18.00/min 38348 115 43661 0 66.00 mm[Hg] - Sitting 125.00 mm[Hg] - Sitting 98.00 Tympanic 92.00 % 60.00/ min 16.00/min 57701 115 35650 1 96.00 % 18.00/min 74667 115 19372 5 94.00 % 18.00/min 34061 115 77287 0 95.00 % 18.00/min 47850 115 41343 7 95.00 % 18.00/min 24716 115 16186 7 78.00 mm[Hg] - Sitting 132.00 mm[Hg] - Sitting 64.00/ min 15641 116 01014 0 88.00 % 18.00/min 61289 116 33184 6 88.00 % 18.00/min 48100 116 39661 3 18.00/mi n 48092 116 26837 8 18.00/mi n Immunizations Vaccine Date Status Other 06/20/2024 Completed
--- OUTSIDE RECORDS SUMMARY | 2024-07-19 23:06 | External Medical Summary | Continuity Of Care Document ---
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 unit/0.1 mL intradermal injection solution [Tuberculin PPD] 0.1mL Intradermal Once daily For PPD 2nd Step Give 2nd Step PPD Day 1 and Read results Day 3 (schedule 7 days after 1st READ) 0.1mL 07/03 Inactiv e 2024 77028 84723 0 Once daily Intrad ermal False Tylenol 325 mg tablet 2 tabs By Mouth Every 4 hours as needed For Pain DO NOT EXCEED 3000 MG APAP/24 Hours 2 tabs 2024 Active 2024 22363 72378 0 Every 4 hours as needed By Mouth False Dulcolax (bisacodyl) 10 mg rectal suppository One Suppository per rectum PRN if Milk of Magnisia ineffective. Give on day 5 of no BM 1 sup 2024 Active 2024 19589 36248 1 Daily as needed Rectal False Fleet Enema 19 gram-7 gram/118 mL Administer per rectum PRN one time if dulcolax suppository not effective. Give on day 6 of no BM 1 2024 Active 2024 12779 17444 6 Daily as needed Rectal False Tylenol 325 mg tablet 2 tabs By Mouth Every 4 hours as needed For Fever >100 DO NOT EXCEED 3000 MG APAP/24 Hours 2 tabs 2024 Active 2024 34463 14543 0 Every 4 hours as needed By Mouth False Eliquis 5 mg tablet 5 mg By Mouth Twice daily For afib 5 mg 2024 Active 2024 71636 39663 1 Twice daily By Mouth False Ferrous sulfate 325 mg (65 mg iron) tablet [generic] 325 mg By Mouth Once daily For supplement 325 mg 2024 Active 2024 07976 55169 5 Once daily By Mouth False Magnesium oxide 400 mg (241.3 mg magnesium) tablet [generic] 400 mg By Mouth Once daily For supplement 400 mg 2024 Active 2024 56980 34543 2 Once daily By Mouth False Protonix 40 mg tablet,bozena yed release 40 mg By Mouth Once daily For GERD 40 mg 2024 Active 2024 54509 74283 1 Once daily By Mouth False Sotalol 120 mg tablet [generic] 120 mg By Mouth Twice daily For SVT 120 mg 2024 Active 2024 23501 62418 1 Twice daily By Mouth False Rosuvastati n 20 mg tablet [generic] 20 mg By Mouth Once daily For HLD 20 mg 2024 Active 2024 29464 42007 0 Once daily By Mouth False Arformotero l 15 mcg/2 mL solution for nebulizatio n [generic] 15 mcg Inhalation Twice daily For copd/asthma/ interstitial lung disease 15 mcg 06/20 Inactiv e 2024 00614 73234 0 Twice daily Inhala tion False Budesonide 0.5 mg/2 mL suspension for nebulizatio n [generic] 0.5 mg Inhalation Twice daily For copd/ asthma/ interstital lung disease 0.5 mg 2024 Active 2024 32773 71207 8 Twice daily Inhala tion False Furosemide 40 mg tablet [generic] 40 mg By Mouth Once daily For chronic diastolic CHF 40 mg 2024 Active 2024 15780 14206 0 Once daily By Mouth False Furosemide 40 mg tablet [generic] 40 mg By Mouth Once daily For chronic diastolic CHF 40 mg 2024 Active 2024 74956 11404 0 Once daily By Mouth False Ventolin HFA 90 mcg/actuati on aerosol inhaler 2 puff Inhalation Every 6 hours as needed For SOB/ wheeze 2 puff 2024 Active 2024 40953 33714 0 Every 6 hours as needed Inhala tion False Amitriptyli ne 25 mg tablet [generic] 25 mg By Mouth At bedtime For general anxiety disorder 25 mg 06/26 Inactiv e 2024 67434 58190 1 At bedtime By Mouth False Levothyroxi ne 125 mcg tablet [generic] 125 mcg By Mouth Once daily For hypothyroidis m 125 mcg 2024 Active 2024 06761 65896 0 Once daily By Mouth False Arformotero l 15 mcg/2 mL solution for nebulizatio n [generic] 06/20 Inactiv e 2024 13666 51510 0 Arformotero l 15 mcg/2 mL solution for nebulizatio n [generic] 15 mcg Inhalation Twice daily For copd/asthma/ interstitial lung disease 15 mcg 2024 Active 2024 99387 57811 0 Twice daily Inhala tion False Clonazepam 0.5 mg tablet [generic] 0.5mg By Mouth As Needed q12 hour PRN For anxiety 0.5mg 06/28 Inactiv e 2024 35085 51764 0 By Mouth False Colace 100 mg capsule 100 mg By Mouth Twice daily For Constipation 100 mg 2024 Active 2024 89076 69004 1 Twice daily By Mouth False Boost 0.04 gram-1 kcal/mL oral liquid 1 carton By Mouth 3 times a day For malnutrition 1 carton 06/27 Inactiv e 2024 48181 90571 9 3 times a day By Mouth False Amitriptyli ne 10 mg tablet [generic] 10mg By Mouth At bedtime along with 25 mg dose to equal 35mg For anxiety 10mg 2024 Active 2024 25303 36606 1 At bedtime By Mouth False Amitriptyli ne 25 mg tablet [generic] 06/26 Inactiv e 2024 46183 45863 1 Amitriptyli ne 25 mg tablet [generic] 25 mg By Mouth At bedtime Along with 10mg to equal 35mg. for anxiety 25 mg 2024 Active 2024 69801 68457 1 At bedtime By Mouth False Boost Breeze Nutritional 0.04 gram-1.05 kcal/mL oral liquid 237 ml By Mouth Twice daily Boost Breeze 237 ml oral liquids For Early satiety, low average meal intake - please record number of mL consumed 237 ml 07/02 Inactiv e 2024 31842 68590 1 Twice daily By Mouth False Prosource [...] PRN For anxiety 0.5mg 2024 Active 2024 70483 58990 0 By Mouth False Ensure clear oral liquid [Food supplemt, lactose-red uced] 120mL By Mouth Once daily For supplement 120mL 2024 Active 2024 Once daily By Mouth False Betadine Swabsticks 10 % 1 scott Topical Twice daily to bilateral heels For stage 2 pressure injury 1 scott 2024 Active 2024 99449 51477 1 Twice daily Topica l False Problems [...] weight Temperature SpO2 Blood Sugar Pulse Respirations 64432 102 40703 9 83.00 mm[Hg] - Lying Down 170.00 mm[Hg] - Lying Down 98.20 Forehead Scan 98.00 % 86.00/ min 18.00/min 59343 102 10390 4 83.00 mm[Hg] - Sitting 170.00 mm[Hg] - Sitting 98.20 Tympanic 86.00/ min 18.00/min 74292 103 99768 5 98.20 Tympanic 44648 103 36378 3 80.00 mm[Hg] - Lying Down 164.00 mm[Hg] - Lying Down 91.00/ min 20.00/min 99515 103 04172 0 80.00 mm[Hg] - Sitting 164.00 mm[Hg] - Sitting 98.20 Tympanic 91.00/ min 18.00/min 59642 103 60711 7 91.00 % 20.00/min 67270 103 51844 3 94.00 % 18.00/min 39904 103 54634 9 79213 104 92381 6 80.00 mm[Hg] - Sitting 140.00 mm[Hg] - Sitting 98.10 Tympanic 94.00 % 64.00/ min 18.00/min 27254 104 11364 1 80.00 mm[Hg] - Sitting 140.00 mm[Hg] - Sitting 98.10 Tympanic 64.00/ min 18.00/min 27377 104 55560 0 80.00 mm[Hg] - Sitting 140.00 mm[Hg] - Sitting 98.10 Tympanic 64.00/ min 18.00/min 94820 104 09291 7 73.00 mm[Hg] - Sitting 136.00 mm[Hg] - Sitting 97.90 Forehead Scan 95.00 % 74.00/ min 16.00/min 79819 104 19023 8 73.00 mm[Hg] - Sitting 135.00 mm[Hg] - Sitting 98.20 Tympanic 74.00/ min 18.00/min 61536 104 86374 6 95.00 % 18.00/min 32061 104 70330 6 96.00 % 18.00/min 43425 104 43253 4 94.00 % 18.00/min 43300 104 14535 0 18.00/mi n 40276 105 62672 0 73.00 mm[Hg] - Sitting 135.00 mm[Hg] - Sitting 98.20 Tympanic 74.00/ min 18.00/min 76237 105 66929 6 73.00 mm[Hg] - Sitting 135.00 mm[Hg] - Sitting 98.20 Tympanic 74.00/ min 20.00/min 38378 105 60851 3 53.00 mm[Hg] - Sitting 126.00 mm[Hg] - Sitting 97.00 Tympanic 99.00 % 56.00/ min 20.00/min 05362 105 62729 6 93.00 % 20.00/min 62123 105 75457 8 94.00 % 20.00/min 64392 105 49929 3 97.00 % 18.00/min 13147 105 55056 9 96.00 % 18.00/min 50341 106 42389 0 67.00 mm[Hg] - Sitting 150.00 mm[Hg] - Sitting 98.80 Forehead Scan 97.00 % 58.00/ min 16.00/min 62240 107 26359 3 136.00 NI 99757 107 15818 0 59 NI 10738 107 66374 0 61.00 mm[Hg] - Sitting 144.00 mm[Hg] - Sitting 97.90 Tympanic 93.00 % 54.00/ min 16.00/min 06073 107 11063 1 95.00 % 18.00/min 76390 107 33786 0 18.00/mi n 98497 107 81942 6 63.00 mm[Hg] - Sitting 159.00 mm[Hg] - Sitting 60.00/ min 11471 107 43755 6 94.00 % 18.00/min 91690 107 02749 3 95.00 % 18.00/min 01429 108 70551 0 55.00 mm[Hg] - Sitting 127.00 mm[Hg] - Sitting 97.80 Tympanic 95.00 % 55.00/ min 16.00/min 30892 108 17601 8 96.00 % 36210 108 34605 4 95.00 % 20.00/min 23707 108 78144 0 96.00 % 20.00/min 02713 108 60683 2 96.00 % 20.00/min 12630 109 00865 0 63.00 mm[Hg] - Sitting 131.00 mm[Hg] - Sitting 98.70 Tympanic 96.00 % 54.00/ min 18.00/min 04950 109 50224 8 94.00 % 18.00/min 56437 109 66764 2 18.00/mi n 03656 109 74958 5 97.00 % 18.00/min 11679 109 2 96.00 % 18.00/min 08728 110 01407 0 55.00 mm[Hg] - Lying Down 137.00 mm[Hg] - Lying Down 97.00 Tympanic 93.00 % 63.00/ min 20.00/min 58112 110 36820 6 94.00 % 18.00/min 61112 110 63054 8 94.00 % 18.00/min 86554 110 51450 0 74.00 mm[Hg] - Sitting 161.00 mm[Hg] - Sitting 56.00/ min 86823 110 50309 1 94.00 % 18.00/min 33113 110 23183 6 18.00/mi n 10307 111 87556 9 74.00 mm[Hg] - Sitting 161.00 mm[Hg] - Sitting 97.80 Tympanic 92.00 % 56.00/ min 16.00/min 74001 111 85598 5 18.00/mi n Immunizations Vaccine Date Status Other 06/20/2024 Completed
--- OUTSIDE RECORDS SUMMARY | 2024-07-19 23:06 | External Medical Summary | Continuity Of Care Document ---
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 unit/0.1 mL intradermal injection solution [Tuberculin PPD] 0.1mL Intradermal Once daily For PPD 2nd Step Give 2nd Step PPD Day 1 and Read results Day 3 (schedule 7 days after 1st READ) 0.1mL 07/03 Inactiv e 2024 46485 54256 0 Once daily Intrad ermal False Tylenol 325 mg tablet 2 tabs By Mouth Every 4 hours as needed For Pain DO NOT EXCEED 3000 MG APAP/24 Hours 2 tabs 2024 Active 2024 84208 10532 0 Every 4 hours as needed By Mouth False Dulcolax (bisacodyl) 10 mg rectal suppository One Suppository per rectum PRN if Milk of Magnisia ineffective. Give on day 5 of no BM 1 sup 2024 Active 2024 16909 01831 1 Daily as needed Rectal False Fleet Enema 19 gram-7 gram/118 mL Administer per rectum PRN one time if dulcolax suppository not effective. Give on day 6 of no BM 1 2024 Active 2024 90489 01456 6 Daily as needed Rectal False Tylenol 325 mg tablet 2 tabs By Mouth Every 4 hours as needed For Fever >100 DO NOT EXCEED 3000 MG APAP/24 Hours 2 tabs 2024 Active 2024 70312 75535 0 Every 4 hours as needed By Mouth False Eliquis 5 mg tablet 5 mg By Mouth Twice daily For afib 5 mg 2024 Active 2024 03014 48896 1 Twice daily By Mouth False Ferrous sulfate 325 mg (65 mg iron) tablet [generic] 325 mg By Mouth Once daily For supplement 325 mg 2024 Active 2024 50672 40986 5 Once daily By Mouth False Magnesium oxide 400 mg (241.3 mg magnesium) tablet [generic] 400 mg By Mouth Once daily For supplement 400 mg 2024 Active 2024 12550 48402 2 Once daily By Mouth False Protonix 40 mg tablet,bozena yed release 40 mg By Mouth Once daily For GERD 40 mg 2024 Active 2024 86768 15842 1 Once daily By Mouth False Sotalol 120 mg tablet [generic] 120 mg By Mouth Twice daily For SVT 120 mg 2024 Active 2024 56314 52369 1 Twice daily By Mouth False Rosuvastati n 20 mg tablet [generic] 20 mg By Mouth Once daily For HLD 20 mg 2024 Active 2024 59107 05894 0 Once daily By Mouth False Arformotero l 15 mcg/2 mL solution for nebulizatio n [generic] 15 mcg Inhalation Twice daily For copd/asthma/ interstitial lung disease 15 mcg 06/20 Inactiv e 2024 60561 89137 0 Twice daily Inhala tion False Budesonide 0.5 mg/2 mL suspension for nebulizatio n [generic] 0.5 mg Inhalation Twice daily For copd/ asthma/ interstital lung disease 0.5 mg 2024 Active 2024 91630 85356 8 Twice daily Inhala tion False Furosemide 40 mg tablet [generic] 40 mg By Mouth Once daily For chronic diastolic CHF 40 mg 2024 Active 2024 52257 59942 0 Once daily By Mouth False Furosemide 40 mg tablet [generic] 40 mg By Mouth Once daily For chronic diastolic CHF 40 mg 2024 Active 2024 05550 18559 0 Once daily By Mouth False Ventolin HFA 90 mcg/actuati on aerosol inhaler 2 puff Inhalation Every 6 hours as needed For SOB/ wheeze 2 puff 2024 Active 2024 97801 16362 0 Every 6 hours as needed Inhala tion False Amitriptyli ne 25 mg tablet [generic] 25 mg By Mouth At bedtime For general anxiety disorder 25 mg 06/26 Inactiv e 2024 26481 21628 1 At bedtime By Mouth False Levothyroxi ne 125 mcg tablet [generic] 125 mcg By Mouth Once daily For hypothyroidis m 125 mcg 2024 Active 2024 68637 61171 0 Once daily By Mouth False Arformotero l 15 mcg/2 mL solution for nebulizatio n [generic] 06/20 Inactiv e 2024 26022 89479 0 Arformotero l 15 mcg/2 mL solution for nebulizatio n [generic] 15 mcg Inhalation Twice daily For copd/asthma/ interstitial lung disease 15 mcg 2024 Active 2024 29443 06099 0 Twice daily Inhala tion False Clonazepam 0.5 mg tablet [generic] 0.5mg By Mouth As Needed q12 hour PRN For anxiety 0.5mg 06/28 Inactiv e 2024 30584 69456 0 By Mouth False Colace 100 mg capsule 100 mg By Mouth Twice daily For Constipation 100 mg 2024 Active 2024 48531 43624 1 Twice daily By Mouth False Boost 0.04 gram-1 kcal/mL oral liquid 1 carton By Mouth 3 times a day For malnutrition 1 carton 06/27 Inactiv e 2024 30371 45187 9 3 times a day By Mouth False Amitriptyli ne 10 mg tablet [generic] 10mg By Mouth At bedtime along with 25 mg dose to equal 35mg For anxiety 10mg 2024 Active 2024 22376 97679 1 At bedtime By Mouth False Amitriptyli ne 25 mg tablet [generic] 06/26 Inactiv e 2024 90865 18110 1 Amitriptyli ne 25 mg tablet [generic] 25 mg By Mouth At bedtime Along with 10mg to equal 35mg. for anxiety 25 mg 2024 Active 2024 86731 97015 1 At bedtime By Mouth False Boost Breeze Nutritional 0.04 gram-1.05 kcal/mL oral liquid 237 ml By Mouth Twice daily Boost Breeze 237 ml oral liquids For Early satiety, low average meal intake - please record number of mL consumed 237 ml 07/02 Inactiv e 2024 90489 58695 1 Twice daily By Mouth False Prosource [...] PRN For anxiety 0.5mg 2024 Active 2024 58309 12242 0 By Mouth False Ensure clear oral liquid [Food supplemt, lactose-red uced] 120mL By Mouth Once daily For supplement 120mL 2024 Active 2024 Once daily By Mouth False Betadine Swabsticks 10 % 1 scott Topical Twice daily to bilateral heels For stage 2 pressure injury 1 scott 2024 Active 2024 34446 71844 1 Twice daily Topica l False Problems [...] weight Temperature SpO2 Blood Sugar Pulse Respirations 91190 102 22720 9 83.00 mm[Hg] - Lying Down 170.00 mm[Hg] - Lying Down 98.20 Forehead Scan 98.00 % 86.00/ min 18.00/min 51939 102 50295 4 83.00 mm[Hg] - Sitting 170.00 mm[Hg] - Sitting 98.20 Tympanic 86.00/ min 18.00/min 62966 103 36495 5 98.20 Tympanic 37049 103 80461 3 80.00 mm[Hg] - Lying Down 164.00 mm[Hg] - Lying Down 91.00/ min 20.00/min 28726 103 65001 0 80.00 mm[Hg] - Sitting 164.00 mm[Hg] - Sitting 98.20 Tympanic 91.00/ min 18.00/min 73561 103 68281 7 91.00 % 20.00/min 45754 103 37014 3 94.00 % 18.00/min 75165 103 51548 9 66730 104 29148 6 80.00 mm[Hg] - Sitting 140.00 mm[Hg] - Sitting 98.10 Tympanic 94.00 % 64.00/ min 18.00/min 53686 104 93956 1 80.00 mm[Hg] - Sitting 140.00 mm[Hg] - Sitting 98.10 Tympanic 64.00/ min 18.00/min 59959 104 41432 0 80.00 mm[Hg] - Sitting 140.00 mm[Hg] - Sitting 98.10 Tympanic 64.00/ min 18.00/min 75675 104 51808 7 73.00 mm[Hg] - Sitting 136.00 mm[Hg] - Sitting 97.90 Forehead Scan 95.00 % 74.00/ min 16.00/min 58358 104 69039 8 73.00 mm[Hg] - Sitting 135.00 mm[Hg] - Sitting 98.20 Tympanic 74.00/ min 18.00/min 32510 104 32638 6 95.00 % 18.00/min 97312 104 33163 6 96.00 % 18.00/min 82624 104 28267 4 94.00 % 18.00/min 84516 104 13286 0 18.00/mi n 46433 105 49238 0 73.00 mm[Hg] - Sitting 135.00 mm[Hg] - Sitting 98.20 Tympanic 74.00/ min 18.00/min 67998 105 13516 6 73.00 mm[Hg] - Sitting 135.00 mm[Hg] - Sitting 98.20 Tympanic 74.00/ min 20.00/min 79747 105 73616 3 53.00 mm[Hg] - Sitting 126.00 mm[Hg] - Sitting 97.00 Tympanic 99.00 % 56.00/ min 20.00/min 45978 105 23781 6 93.00 % 20.00/min 63976 105 84675 8 94.00 % 20.00/min 68093 105 77241 3 97.00 % 18.00/min 23036 105 70272 9 96.00 % 18.00/min 05764 106 59763 0 67.00 mm[Hg] - Sitting 150.00 mm[Hg] - Sitting 98.80 Forehead Scan 97.00 % 58.00/ min 16.00/min 95606 107 64392 3 136.00 NI 68386 107 32974 0 59 NI 27851 107 30130 0 61.00 mm[Hg] - Sitting 144.00 mm[Hg] - Sitting 97.90 Tympanic 93.00 % 54.00/ min 16.00/min 24127 107 41722 1 95.00 % 18.00/min 25184 107 33164 0 18.00/mi n 61861 107 48175 6 63.00 mm[Hg] - Sitting 159.00 mm[Hg] - Sitting 60.00/ min 99248 107 58526 6 94.00 % 18.00/min 86516 107 10216 3 95.00 % 18.00/min 89446 108 07382 0 55.00 mm[Hg] - Sitting 127.00 mm[Hg] - Sitting 97.80 Tympanic 95.00 % 55.00/ min 16.00/min 73789 108 86527 8 96.00 % 25335 108 86956 4 95.00 % 20.00/min 32166 108 32589 0 96.00 % 20.00/min 58543 108 78009 2 96.00 % 20.00/min 19329 109 90787 0 63.00 mm[Hg] - Sitting 131.00 mm[Hg] - Sitting 98.70 Tympanic 96.00 % 54.00/ min 18.00/min 82130 109 02372 8 94.00 % 18.00/min 90254 109 47542 2 18.00/mi n 19983 109 72382 5 97.00 % 18.00/min 84836 109 2 96.00 % 18.00/min 37405 110 49573 0 55.00 mm[Hg] - Lying Down 137.00 mm[Hg] - Lying Down 97.00 Tympanic 93.00 % 63.00/ min 20.00/min 85624 110 08206 6 94.00 % 18.00/min 04089 110 87034 8 94.00 % 18.00/min 82722 110 74710 0 74.00 mm[Hg] - Sitting 161.00 mm[Hg] - Sitting 56.00/ min 59500 110 03734 1 94.00 % 18.00/min 75493 110 47237 6 18.00/mi n 90500 111 07719 9 74.00 mm[Hg] - Sitting 161.00 mm[Hg] - Sitting 97.80 Tympanic 92.00 % 56.00/ min 16.00/min 79750 111 95721 5 94.00 % 18.00/min 27871 111 01322 5 94.00 % 18.00/min 15843 111 65592 4 95.00 % 18.00/min 03169 111 83819 3 18.00/mi n 90403 112 29327 0 58.00 mm[Hg] - Sitting 138.00 mm[Hg] - Sitting 98.20 Tympanic 92.00 % 55.00/ min 16.00/min 81460 112 16707 7 95.00 % 20.00/min 79477 112 73947 7 95.00 % 20.00/min 25081 112 72386 5 95.00 % 18.00/min 04017 112 97258 0 18.00/mi n 64606 113 16660 0 50.00 mm[Hg] - Sitting 110.00 mm[Hg] - Sitting 97.70 Forehead Scan 94.00 % 54.00/ min 20.00/min 65184 113 14900 1 95.00 % 18.00/min 08985 113 38492 2 96.00 % 18.00/min 20925 113 04394 0 95.00 % 15.00/min 69210 113 60390 4 95.00 % 18.00/min 49892 114 70049 6 55.00 mm[Hg] - Sitting 103.00 mm[Hg] - Sitting 97.50 Forehead Scan 91.00 % 55.00/ min 20.00/min 35907 114 50159 7 96.00 % 18.00/min 13971 114 70945 8 94.00 % 18.00/min 85990 114 03252 3 96.00 % 18.00/min 74093 114 43186 9 96.00 % 18.00/min 51280 114 74989 3 60.00 mm[Hg] - Sitting 110.00 mm[Hg] - Sitting 60.00/ min 39009 115 16330 0 66.00 mm[Hg] - Sitting 131.00 mm[Hg] - Sitting 97.90 Tympanic 95.00 % 71.00/ min 18.00/min 73788 115 24561 1 96.00 % 18.00/min Immunizations Vaccine Date Status Other 06/20/2024 Completed
--- OUTSIDE RECORDS SUMMARY | 2024-07-19 23:06 | External Medical Summary | Continuity Of Care Document ---
Author Name Unknown Address [address] [address] Organization [facility] () Care Team Providers Care Math Professor Name Role Phone DO Lopez Amy Primary Care Provider [phone] Allergies Allergy Reaction Start Date End Date [...] 3 0.1 mL 06/23 Inactiv e 2024 97823 36394 0 At bedtime Intrad ermal False Tubersol 5 tub. unit/0.1 mL intradermal injection solution [Tuberculin PPD] 0.1mL Intradermal Once daily For PPD 2nd Step Give 2nd Step PPD Day 1 and Read results Day 3 (schedule 7 days after 1st READ) 0.1mL 07/03 Inactiv e 2024 90907 42128 0 Once daily Intrad ermal False Tylenol 325 mg tablet 2 tabs By Mouth Every 4 hours as needed For Pain DO NOT EXCEED 3000 MG APAP/24 Hours 2 tabs 2024 Active 2024 14425 54921 0 Every 4 hours as needed By Mouth False Dulcolax (bisacodyl) 10 mg rectal suppository One Suppository per rectum PRN if Milk of Magnisia ineffective. Give on day 5 of no BM 1 sup 2024 Active 2024 24231 60452 1 Daily as needed Rectal False Fleet Enema 19 gram-7 gram/118 mL Administer per rectum PRN one time if dulcolax suppository not effective. Give on day 6 of no BM 1 2024 Active 2024 02011 70348 6 Daily as needed Rectal False Tylenol 325 mg tablet 2 tabs By Mouth Every 4 hours as needed For Fever >100 DO NOT EXCEED 3000 MG APAP/24 Hours 2 tabs 2024 Active 2024 72422 54552 0 Every 4 hours as needed By Mouth False Eliquis 5 mg tablet 5 mg By Mouth Twice daily For afib 5 mg 2024 Active 2024 66502 29862 1 Twice daily By Mouth False Ferrous sulfate 325 mg (65 mg iron) tablet [generic] 325 mg By Mouth Once daily For supplement 325 mg 2024 Active 2024 22520 36684 5 Once daily By Mouth False Magnesium oxide 400 mg (241.3 mg magnesium) tablet [generic] 400 mg By Mouth Once daily For supplement 400 mg 2024 Active 2024 55460 72637 2 Once daily By Mouth False Protonix 40 mg tablet,bozena yed release 40 mg By Mouth Once daily For GERD 40 mg 2024 Active 2024 91697 65477 1 Once daily By Mouth False Sotalol 120 mg tablet [generic] 120 mg By Mouth Twice daily For SVT 120 mg 2024 Active 2024 92012 86671 1 Twice daily By Mouth False Rosuvastati n 20 mg tablet [generic] 20 mg By Mouth Once daily For HLD 20 mg 2024 Active 2024 17628 61597 0 Once daily By Mouth False Arformotero l 15 mcg/2 mL solution for nebulizatio n [generic] 15 mcg Inhalation Twice daily For copd/asthma/ interstitial lung disease 15 mcg 06/20 Inactiv e 2024 17411 43253 0 Twice daily Inhala tion False Budesonide 0.5 mg/2 mL suspension for nebulizatio n [generic] 0.5 mg Inhalation Twice daily For copd/ asthma/ interstital lung disease 0.5 mg 2024 Active 2024 53992 89837 8 Twice daily Inhala tion False Furosemide 40 mg tablet [generic] 40 mg By Mouth Once daily For chronic diastolic CHF 40 mg 2024 Active 2024 79266 21708 0 Once daily By Mouth False Furosemide 40 mg tablet [generic] 40 mg By Mouth Once daily For chronic diastolic CHF 40 mg 2024 Active 2024 74021 38957 0 Once daily By Mouth False Ventolin HFA 90 mcg/actuati on aerosol inhaler 2 puff Inhalation Every 6 hours as needed For SOB/ wheeze 2 puff 2024 Active 2024 21027 49741 0 Every 6 hours as needed Inhala tion False Amitriptyli ne 25 mg tablet [generic] 25 mg By Mouth At bedtime For general anxiety disorder 25 mg 06/26 Inactiv e 2024 99598 45157 1 At bedtime By Mouth False Levothyroxi ne 125 mcg tablet [generic] 125 mcg By Mouth Once daily For hypothyroidis m 125 mcg 2024 Active 2024 66081 69178 0 Once daily By Mouth False Arformotero l 15 mcg/2 mL solution for nebulizatio n [generic] 06/20 Inactiv e 2024 09448 59486 0 Arformotero l 15 mcg/2 mL solution for nebulizatio n [generic] 15 mcg Inhalation Twice daily For copd/asthma/ interstitial lung disease 15 mcg 2024 Active 2024 38025 76193 0 Twice daily Inhala tion False Clonazepam 0.5 mg tablet [generic] 0.5mg By Mouth As Needed q12 hour PRN For anxiety 0.5mg 06/28 Inactiv e 2024 15010 76144 0 By Mouth False Colace 100 mg capsule 100 mg By Mouth Twice daily For Constipation 100 mg 2024 Active 2024 03820 57688 1 Twice daily By Mouth False Boost 0.04 gram-1 kcal/mL oral liquid 1 carton By Mouth 3 times a day For malnutrition 1 carton 06/27 Inactiv e 2024 92999 70916 9 3 times a day By Mouth False Amitriptyli ne 10 mg tablet [generic] 10mg By Mouth At bedtime along with 25 mg dose to equal 35mg For anxiety 10mg 2024 Active 2024 27180 58087 1 At bedtime By Mouth False Amitriptyli ne 25 mg tablet [generic] 06/26 Inactiv e 2024 71992 75938 1 Amitriptyli ne 25 mg tablet [generic] 25 mg By Mouth At bedtime Along with 10mg to equal 35mg. for anxiety 25 mg 2024 Active 2024 66487 25820 1 At bedtime By Mouth False Boost Breeze Nutritional 0.04 gram-1.05 kcal/mL oral liquid 237 ml By Mouth Twice daily Boost Breeze 237 ml oral liquids For Early satiety, low average meal intake - please record number of mL consumed 237 ml 07/02 Inactiv e 2024 20795 05208 1 Twice daily By Mouth False Prosource [...] PRN For anxiety 0.5mg 2024 Active 2024 52254 60934 0 By Mouth False Ensure clear oral liquid [Food supplemt, lactose-red uced] 120mL By Mouth Once daily For supplement 120mL 2024 Active 2024 Once daily By Mouth False Betadine Swabsticks 10 % 1 scott Topical Twice daily to bilateral heels For stage 2 pressure injury 1 scott 2024 Active 2024 20448 18767 1 Twice daily Topica l False Problems [...] weight Temperature SpO2 Blood Sugar Pulse Respirations 85455 102 31479 9 83.00 mm[Hg] - Lying Down 170.00 mm[Hg] - Lying Down 98.20 Forehead Scan 98.00 % 86.00/ min 18.00/min 13678 102 13551 4 83.00 mm[Hg] - Sitting 170.00 mm[Hg] - Sitting 98.20 Tympanic 86.00/ min 18.00/min 88883 103 30592 5 98.20 Tympanic 01025 103 84846 3 80.00 mm[Hg] - Lying Down 164.00 mm[Hg] - Lying Down 91.00/ min 20.00/min 47792 103 60013 0 80.00 mm[Hg] - Sitting 164.00 mm[Hg] - Sitting 98.20 Tympanic 91.00/ min 18.00/min 48903 103 31404 7 91.00 % 20.00/min 20177 103 89728 3 94.00 % 18.00/min 41462 103 92754 9 64698 104 33459 6 80.00 mm[Hg] - Sitting 140.00 mm[Hg] - Sitting 98.10 Tympanic 94.00 % 64.00/ min 18.00/min 53441 104 03584 1 80.00 mm[Hg] - Sitting 140.00 mm[Hg] - Sitting 98.10 Tympanic 64.00/ min 18.00/min 94896 104 02963 0 80.00 mm[Hg] - Sitting 140.00 mm[Hg] - Sitting 98.10 Tympanic 64.00/ min 18.00/min 47432 104 03767 7 73.00 mm[Hg] - Sitting 136.00 mm[Hg] - Sitting 97.90 Forehead Scan 95.00 % 74.00/ min 16.00/min 35887 104 15934 8 73.00 mm[Hg] - Sitting 135.00 mm[Hg] - Sitting 98.20 Tympanic 74.00/ min 18.00/min 21666 104 23760 6 95.00 % 18.00/min 06473 104 89285 6 96.00 % 18.00/min 24968 104 14479 4 94.00 % 18.00/min 59274 104 97286 0 18.00/mi n 47753 105 33052 0 73.00 mm[Hg] - Sitting 135.00 mm[Hg] - Sitting 98.20 Tympanic 74.00/ min 18.00/min 51581 105 96358 6 73.00 mm[Hg] - Sitting 135.00 mm[Hg] - Sitting 98.20 Tympanic 74.00/ min 20.00/min 50685 105 64095 3 53.00 mm[Hg] - Sitting 126.00 mm[Hg] - Sitting 97.00 Tympanic 99.00 % 56.00/ min 20.00/min 10953 105 50443 6 93.00 % 20.00/min 33728 105 47219 8 94.00 % 20.00/min 91151 105 08966 3 97.00 % 18.00/min 93279 105 47023 9 96.00 % 18.00/min 54375 106 02494 0 67.00 mm[Hg] - Sitting 150.00 mm[Hg] - Sitting 98.80 Forehead Scan 97.00 % 58.00/ min 16.00/min 99310 107 91882 3 136.00 NI 96055 107 19667 0 59 NI 99790 107 93900 0 61.00 mm[Hg] - Sitting 144.00 mm[Hg] - Sitting 97.90 Tympanic 93.00 % 54.00/ min 16.00/min 85445 107 31422 1 95.00 % 18.00/min 19021 107 27748 0 18.00/mi n 97222 107 67163 6 63.00 mm[Hg] - Sitting 159.00 mm[Hg] - Sitting 60.00/ min 86963 107 39888 6 94.00 % 18.00/min 11174 107 65365 3 95.00 % 18.00/min 46762 108 61062 0 55.00 mm[Hg] - Sitting 127.00 mm[Hg] - Sitting 97.80 Tympanic 95.00 % 55.00/ min 16.00/min 27999 108 09512 8 96.00 % 09257 108 04056 4 95.00 % 20.00/min 40977 108 98546 0 96.00 % 20.00/min 79364 108 08995 2 96.00 % 20.00/min 84790 109 44687 0 63.00 mm[Hg] - Sitting 131.00 mm[Hg] - Sitting 98.70 Tympanic 96.00 % 54.00/ min 18.00/min 75909 109 51660 8 94.00 % 18.00/min 01467 109 45647 2 18.00/mi n 16999 109 54542 5 97.00 % 18.00/min 22463 109 2 96.00 % 18.00/min 28475 110 43217 0 55.00 mm[Hg] - Lying Down 137.00 mm[Hg] - Lying Down 97.00 Tympanic 93.00 % 63.00/ min 20.00/min 32518 110 61153 6 94.00 % 18.00/min 38499 110 97383 8 94.00 % 18.00/min 08716 110 69609 0 74.00 mm[Hg] - Sitting 161.00 mm[Hg] - Sitting 56.00/ min 96750 110 88500 1 94.00 % 18.00/min 35701 110 57128 6 18.00/mi n 23195 111 67620 9 74.00 mm[Hg] - Sitting 161.00 mm[Hg] - Sitting 97.80 Tympanic 92.00 % 56.00/ min 16.00/min 00345 111 31548 5 94.00 % 18.00/min 04255 111 12385 5 94.00 % 18.00/min 33016 111 35001 4 95.00 % 18.00/min 69922 111 58827 3 18.00/mi n 18946 112 90405 0 58.00 mm[Hg] - Sitting 138.00 mm[Hg] - Sitting 98.20 Tympanic 92.00 % 55.00/ min 16.00/min 40721 112 15110 7 95.00 % 20.00/min 66959 112 34743 7 95.00 % 20.00/min 56458 112 63325 5 95.00 % 18.00/min 03866 112 37315 0 18.00/mi n 47937 113 75885 0 50.00 mm[Hg] - Sitting 110.00 mm[Hg] - Sitting 97.70 Forehead Scan 94.00 % 54.00/ min 20.00/min 04067 113 45807 1 95.00 % 18.00/min 92513 113 62713 2 96.00 % 18.00/min 65014 113 42716 0 95.00 % 15.00/min 90610 113 29837 4 95.00 % 18.00/min 20116 114 78185 6 55.00 mm[Hg] - Sitting 103.00 mm[Hg] - Sitting 97.50 Forehead Scan 91.00 % 55.00/ min 20.00/min 08637 114 04201 7 96.00 % 18.00/min 70504 114 40115 8 94.00 % 18.00/min 38250 114 60515 3 96.00 % 18.00/min 80037 114 74218 9 96.00 % 18.00/min 15132 114 30569 3 60.00 mm[Hg] - Sitting 110.00 mm[Hg] - Sitting 60.00/ min 83811 115 12536 0 66.00 mm[Hg] - Sitting 131.00 mm[Hg] - Sitting 97.90 Tympanic 95.00 % 71.00/ min 18.00/min 00248 115 08827 1 96.00 % 18.00/min 25017 115 11986 5 94.00 % 18.00/min Immunizations Vaccine Date Status Other 06/20/2024 Completed
--- OUTSIDE RECORDS SUMMARY | 2024-07-19 23:06 | External Medical Summary | Continuity Of Care Document ---
Author Name Unknown Address [address] [address] Organization [facility] () Care Team Providers Care Line Cook Name Role Phone DO Lopez Amy Primary Care Provider [phone] Allergies Allergy Reaction Start Date End Date [...] 3 0.1 mL 06/23 Inactiv e 2024 67749 29652 0 At bedtime Intrad ermal False Tubersol 5 tub. unit/0.1 mL intradermal injection solution [Tuberculin PPD] 0.1mL Intradermal Once daily For PPD 2nd Step Give 2nd Step PPD Day 1 and Read results Day 3 (schedule 7 days after 1st READ) 0.1mL 07/03 Inactiv e 2024 86042 35802 0 Once daily Intrad ermal False Tylenol 325 mg tablet 2 tabs By Mouth Every 4 hours as needed For Pain DO NOT EXCEED 3000 MG APAP/24 Hours 2 tabs 2024 Active 2024 56703 73605 0 Every 4 hours as needed By Mouth False Dulcolax (bisacodyl) 10 mg rectal suppository One Suppository per rectum PRN if Milk of Magnisia ineffective. Give on day 5 of no BM 1 sup 2024 Active 2024 90553 97329 1 Daily as needed Rectal False Fleet Enema 19 gram-7 gram/118 mL Administer per rectum PRN one time if dulcolax suppository not effective. Give on day 6 of no BM 1 2024 Active 2024 18734 35543 6 Daily as needed Rectal False Tylenol 325 mg tablet 2 tabs By Mouth Every 4 hours as needed For Fever >100 DO NOT EXCEED 3000 MG APAP/24 Hours 2 tabs 2024 Active 2024 52052 88921 0 Every 4 hours as needed By Mouth False Eliquis 5 mg tablet 5 mg By Mouth Twice daily For afib 5 mg 2024 Active 2024 87058 47305 1 Twice daily By Mouth False Ferrous sulfate 325 mg (65 mg iron) tablet [generic] 325 mg By Mouth Once daily For supplement 325 mg 2024 Active 2024 26250 72044 5 Once daily By Mouth False Magnesium oxide 400 mg (241.3 mg magnesium) tablet [generic] 400 mg By Mouth Once daily For supplement 400 mg 2024 Active 2024 62980 92236 2 Once daily By Mouth False Protonix 40 mg tablet,bozena yed release 40 mg By Mouth Once daily For GERD 40 mg 2024 Active 2024 78084 55310 1 Once daily By Mouth False Sotalol 120 mg tablet [generic] 120 mg By Mouth Twice daily For SVT 120 mg 2024 Active 2024 58378 47656 1 Twice daily By Mouth False Rosuvastati n 20 mg tablet [generic] 20 mg By Mouth Once daily For HLD 20 mg 2024 Active 2024 15544 18141 0 Once daily By Mouth False Arformotero l 15 mcg/2 mL solution for nebulizatio n [generic] 15 mcg Inhalation Twice daily For copd/asthma/ interstitial lung disease 15 mcg 06/20 Inactiv e 2024 84276 05290 0 Twice daily Inhala tion False Budesonide 0.5 mg/2 mL suspension for nebulizatio n [generic] 0.5 mg Inhalation Twice daily For copd/ asthma/ interstital lung disease 0.5 mg 2024 Active 2024 61505 13406 8 Twice daily Inhala tion False Furosemide 40 mg tablet [generic] 40 mg By Mouth Once daily For chronic diastolic CHF 40 mg 2024 Active 2024 68678 93977 0 Once daily By Mouth False Furosemide 40 mg tablet [generic] 40 mg By Mouth Once daily For chronic diastolic CHF 40 mg 2024 Active 2024 14478 36627 0 Once daily By Mouth False Ventolin HFA 90 mcg/actuati on aerosol inhaler 2 puff Inhalation Every 6 hours as needed For SOB/ wheeze 2 puff 2024 Active 2024 15803 88956 0 Every 6 hours as needed Inhala tion False Amitriptyli ne 25 mg tablet [generic] 25 mg By Mouth At bedtime For general anxiety disorder 25 mg 06/26 Inactiv e 2024 51392 22293 1 At bedtime By Mouth False Levothyroxi ne 125 mcg tablet [generic] 125 mcg By Mouth Once daily For hypothyroidis m 125 mcg 2024 Active 2024 68845 72538 0 Once daily By Mouth False Arformotero l 15 mcg/2 mL solution for nebulizatio n [generic] 06/20 Inactiv e 2024 41891 16218 0 Arformotero l 15 mcg/2 mL solution for nebulizatio n [generic] 15 mcg Inhalation Twice daily For copd/asthma/ interstitial lung disease 15 mcg 2024 Active 2024 70185 68256 0 Twice daily Inhala tion False Clonazepam 0.5 mg tablet [generic] 0.5mg By Mouth As Needed q12 hour PRN For anxiety 0.5mg 06/28 Inactiv e 2024 13317 69209 0 By Mouth False Colace 100 mg capsule 100 mg By Mouth Twice daily For Constipation 100 mg 2024 Active 2024 21402 32201 1 Twice daily By Mouth False Boost 0.04 gram-1 kcal/mL oral liquid 1 carton By Mouth 3 times a day For malnutrition 1 carton 06/27 Inactiv e 2024 31284 13548 9 3 times a day By Mouth False Amitriptyli ne 10 mg tablet [generic] 10mg By Mouth At bedtime along with 25 mg dose to equal 35mg For anxiety 10mg 2024 Active 2024 13368 20173 1 At bedtime By Mouth False Amitriptyli ne 25 mg tablet [generic] 06/26 Inactiv e 2024 22453 48046 1 Amitriptyli ne 25 mg tablet [generic] 25 mg By Mouth At bedtime Along with 10mg to equal 35mg. for anxiety 25 mg 2024 Active 2024 16488 80188 1 At bedtime By Mouth False Boost Breeze Nutritional 0.04 gram-1.05 kcal/mL oral liquid 237 ml By Mouth Twice daily Boost Breeze 237 ml oral liquids For Early satiety, low average meal intake - please record number of mL consumed 237 ml 07/02 Inactiv e 2024 70128 22343 1 Twice daily By Mouth False Prosource [...] PRN For anxiety 0.5mg 2024 Active 2024 35650 25309 0 By Mouth False Ensure clear oral liquid [Food supplemt, lactose-red uced] 120mL By Mouth Once daily For supplement 120mL 2024 Active 2024 Once daily By Mouth False Betadine Swabsticks 10 % 1 scott Topical Twice daily to bilateral heels For stage 2 pressure injury 1 scott 2024 Active 2024 71413 85104 1 Twice daily Topica l False Problems [...] weight Temperature SpO2 Blood Sugar Pulse Respirations 91288 102 80423 9 83.00 mm[Hg] - Lying Down 170.00 mm[Hg] - Lying Down 98.20 Forehead Scan 98.00 % 86.00/ min 18.00/min 72760 102 50408 4 83.00 mm[Hg] - Sitting 170.00 mm[Hg] - Sitting 98.20 Tympanic 86.00/ min 18.00/min 43514 103 76143 5 98.20 Tympanic 90596 103 75857 3 80.00 mm[Hg] - Lying Down 164.00 mm[Hg] - Lying Down 91.00/ min 20.00/min 71517 103 19433 0 80.00 mm[Hg] - Sitting 164.00 mm[Hg] - Sitting 98.20 Tympanic 91.00/ min 18.00/min 44062 103 68492 7 91.00 % 20.00/min 37690 103 61829 3 94.00 % 18.00/min 53198 103 83191 9 32019 104 86243 6 80.00 mm[Hg] - Sitting 140.00 mm[Hg] - Sitting 98.10 Tympanic 94.00 % 64.00/ min 18.00/min 79611 104 01531 1 80.00 mm[Hg] - Sitting 140.00 mm[Hg] - Sitting 98.10 Tympanic 64.00/ min 18.00/min 63567 104 68892 0 80.00 mm[Hg] - Sitting 140.00 mm[Hg] - Sitting 98.10 Tympanic 64.00/ min 18.00/min 46593 104 76644 7 73.00 mm[Hg] - Sitting 136.00 mm[Hg] - Sitting 97.90 Forehead Scan 95.00 % 74.00/ min 16.00/min 23577 104 23446 8 73.00 mm[Hg] - Sitting 135.00 mm[Hg] - Sitting 98.20 Tympanic 74.00/ min 18.00/min 03376 104 04769 6 95.00 % 18.00/min 97554 104 23427 6 96.00 % 18.00/min 03146 104 26097 4 94.00 % 18.00/min 30038 104 52836 0 18.00/mi n 01134 105 24997 0 73.00 mm[Hg] - Sitting 135.00 mm[Hg] - Sitting 98.20 Tympanic 74.00/ min 18.00/min 47197 105 21216 6 73.00 mm[Hg] - Sitting 135.00 mm[Hg] - Sitting 98.20 Tympanic 74.00/ min 20.00/min 55147 105 43900 3 53.00 mm[Hg] - Sitting 126.00 mm[Hg] - Sitting 97.00 Tympanic 99.00 % 56.00/ min 20.00/min 02515 105 74306 6 93.00 % 20.00/min 13353 105 85391 8 94.00 % 20.00/min 08895 105 83091 3 97.00 % 18.00/min 72326 105 20122 9 96.00 % 18.00/min 27170 106 36205 0 67.00 mm[Hg] - Sitting 150.00 mm[Hg] - Sitting 98.80 Forehead Scan 97.00 % 58.00/ min 16.00/min 24481 107 88060 3 136.00 NI 73878 107 49015 0 59 NI 92162 107 56719 0 61.00 mm[Hg] - Sitting 144.00 mm[Hg] - Sitting 97.90 Tympanic 93.00 % 54.00/ min 16.00/min 20278 107 76215 1 95.00 % 18.00/min 90915 107 23770 0 18.00/mi n 16048 107 05914 6 63.00 mm[Hg] - Sitting 159.00 mm[Hg] - Sitting 60.00/ min 26218 107 80481 6 94.00 % 18.00/min 76840 107 32690 3 95.00 % 18.00/min 82405 108 85273 0 55.00 mm[Hg] - Sitting 127.00 mm[Hg] - Sitting 97.80 Tympanic 95.00 % 55.00/ min 16.00/min 38733 108 27378 8 96.00 % 78136 108 46514 4 95.00 % 20.00/min 83707 108 91469 0 96.00 % 20.00/min 46555 108 52137 2 96.00 % 20.00/min 35900 109 03428 0 63.00 mm[Hg] - Sitting 131.00 mm[Hg] - Sitting 98.70 Tympanic 96.00 % 54.00/ min 18.00/min 53945 109 26223 8 94.00 % 18.00/min 47821 109 66765 2 18.00/mi n 69709 109 04870 5 97.00 % 18.00/min 57053 109 2 96.00 % 18.00/min 99391 110 83798 0 55.00 mm[Hg] - Lying Down 137.00 mm[Hg] - Lying Down 97.00 Tympanic 93.00 % 63.00/ min 20.00/min 62458 110 54701 6 94.00 % 18.00/min 86257 110 97935 8 94.00 % 18.00/min 72289 110 78636 0 74.00 mm[Hg] - Sitting 161.00 mm[Hg] - Sitting 56.00/ min 82057 110 62648 1 94.00 % 18.00/min 86792 110 23226 6 18.00/mi n 43431 111 09710 9 74.00 mm[Hg] - Sitting 161.00 mm[Hg] - Sitting 97.80 Tympanic 92.00 % 56.00/ min 16.00/min 10874 111 79551 5 94.00 % 18.00/min 31740 111 41669 5 94.00 % 18.00/min 82429 111 21943 4 95.00 % 18.00/min 88217 111 62944 3 18.00/mi n 10275 112 81313 0 58.00 mm[Hg] - Sitting 138.00 mm[Hg] - Sitting 98.20 Tympanic 92.00 % 55.00/ min 16.00/min 44277 112 54350 7 95.00 % 20.00/min 65178 112 58356 7 95.00 % 20.00/min 54522 112 68238 5 95.00 % 18.00/min 36938 112 67341 0 18.00/mi n 92598 113 20316 0 50.00 mm[Hg] - Sitting 110.00 mm[Hg] - Sitting 97.70 Forehead Scan 94.00 % 54.00/ min 20.00/min 25691 113 05515 1 95.00 % 18.00/min 94695 113 92263 2 96.00 % 18.00/min 26676 113 17300 0 95.00 % 15.00/min 46847 113 01942 4 95.00 % 18.00/min 35570 114 10628 6 55.00 mm[Hg] - Sitting 103.00 mm[Hg] - Sitting 97.50 Forehead Scan 91.00 % 55.00/ min 20.00/min 81469 114 92156 7 96.00 % 18.00/min 89863 114 26385 8 94.00 % 18.00/min 65923 114 29720 3 96.00 % 18.00/min 79908 114 13574 9 96.00 % 18.00/min 35137 114 29087 3 60.00 mm[Hg] - Sitting 110.00 mm[Hg] - Sitting 60.00/ min Immunizations Vaccine Date Status Other 06/20/2024 Completed
--- OUTSIDE RECORDS SUMMARY | 2024-07-19 23:06 | External Medical Summary | Continuity Of Care Document ---
Author Name Unknown Address [address] [place] [address] Organization [facility] () Care Team Providers Care Ice Scraper Name Role Phone DO Lopez Amy Primary Care Provider [phone] Allergies Allergy Reaction Start Date End Date [...] 3 0.1 mL 06/23 Inactiv e 2024 79605 48642 0 At bedtime Intrad ermal False Tubersol 5 tub. unit/0.1 mL intradermal injection solution [Tuberculin PPD] 0.1mL Intradermal Once daily For PPD 2nd Step Give 2nd Step PPD Day 1 and Read results Day 3 (schedule 7 days after 1st READ) 0.1mL 07/03 Inactiv e 2024 40927 15386 0 Once daily Intrad ermal False Tylenol 325 mg tablet 2 tabs By Mouth Every 4 hours as needed For Pain DO NOT EXCEED 3000 MG APAP/24 Hours 2 tabs 2024 Active 2024 89646 77593 0 Every 4 hours as needed By Mouth False Dulcolax (bisacodyl) 10 mg rectal suppository One Suppository per rectum PRN if Milk of Magnisia ineffective. Give on day 5 of no BM 1 sup 2024 Active 2024 91347 34134 1 Daily as needed Rectal False Fleet Enema 19 gram-7 gram/118 mL Administer per rectum PRN one time if dulcolax suppository not effective. Give on day 6 of no BM 1 2024 Active 2024 87046 09835 6 Daily as needed Rectal False Tylenol 325 mg tablet 2 tabs By Mouth Every 4 hours as needed For Fever >100 DO NOT EXCEED 3000 MG APAP/24 Hours 2 tabs 2024 Active 2024 34353 51215 0 Every 4 hours as needed By Mouth False Eliquis 5 mg tablet 5 mg By Mouth Twice daily For afib 5 mg 2024 Active 2024 07484 36178 1 Twice daily By Mouth False Ferrous sulfate 325 mg (65 mg iron) tablet [generic] 325 mg By Mouth Once daily For supplement 325 mg 2024 Active 2024 84320 01807 5 Once daily By Mouth False Magnesium oxide 400 mg (241.3 mg magnesium) tablet [generic] 400 mg By Mouth Once daily For supplement 400 mg 2024 Active 2024 29388 58759 2 Once daily By Mouth False Protonix 40 mg tablet,bozena yed release 40 mg By Mouth Once daily For GERD 40 mg 2024 Active 2024 85970 77342 1 Once daily By Mouth False Sotalol 120 mg tablet [generic] 120 mg By Mouth Twice daily For SVT 120 mg 2024 Active 2024 41141 35979 1 Twice daily By Mouth False Rosuvastati n 20 mg tablet [generic] 20 mg By Mouth Once daily For HLD 20 mg 2024 Active 2024 05816 21554 0 Once daily By Mouth False Arformotero l 15 mcg/2 mL solution for nebulizatio n [generic] 15 mcg Inhalation Twice daily For copd/asthma/ interstitial lung disease 15 mcg 06/20 Inactiv e 2024 81564 98312 0 Twice daily Inhala tion False Budesonide 0.5 mg/2 mL suspension for nebulizatio n [generic] 0.5 mg Inhalation Twice daily For copd/ asthma/ interstital lung disease 0.5 mg 2024 Active 2024 85742 35291 8 Twice daily Inhala tion False Furosemide 40 mg tablet [generic] 40 mg By Mouth Once daily For chronic diastolic CHF 40 mg 2024 Active 2024 58102 04698 0 Once daily By Mouth False Furosemide 40 mg tablet [generic] 40 mg By Mouth Once daily For chronic diastolic CHF 40 mg 2024 Active 2024 74410 96996 0 Once daily By Mouth False Ventolin HFA 90 mcg/actuati on aerosol inhaler 2 puff Inhalation Every 6 hours as needed For SOB/ wheeze 2 puff 2024 Active 2024 76379 89172 0 Every 6 hours as needed Inhala tion False Amitriptyli ne 25 mg tablet [generic] 25 mg By Mouth At bedtime For general anxiety disorder 25 mg 06/26 Inactiv e 2024 36738 62333 1 At bedtime By Mouth False Levothyroxi ne 125 mcg tablet [generic] 125 mcg By Mouth Once daily For hypothyroidis m 125 mcg 2024 Active 2024 81182 74002 0 Once daily By Mouth False Arformotero l 15 mcg/2 mL solution for nebulizatio n [generic] 06/20 Inactiv e 2024 82125 87729 0 Arformotero l 15 mcg/2 mL solution for nebulizatio n [generic] 15 mcg Inhalation Twice daily For copd/asthma/ interstitial lung disease 15 mcg 2024 Active 2024 01014 17978 0 Twice daily Inhala tion False Clonazepam 0.5 mg tablet [generic] 0.5mg By Mouth As Needed q12 hour PRN For anxiety 0.5mg 06/28 Inactiv e 2024 08826 09348 0 By Mouth False Colace 100 mg capsule 100 mg By Mouth Twice daily For Constipation 100 mg 2024 Active 2024 58544 27242 1 Twice daily By Mouth False Boost 0.04 gram-1 kcal/mL oral liquid 1 carton By Mouth 3 times a day For malnutrition 1 carton 06/27 Inactiv e 2024 44069 38886 9 3 times a day By Mouth False Amitriptyli ne 10 mg tablet [generic] 10mg By Mouth At bedtime along with 25 mg dose to equal 35mg For anxiety 10mg 2024 Active 2024 03066 50702 1 At bedtime By Mouth False Amitriptyli ne 25 mg tablet [generic] 06/26 Inactiv e 2024 93796 57119 1 Amitriptyli ne 25 mg tablet [generic] 25 mg By Mouth At bedtime Along with 10mg to equal 35mg. for anxiety 25 mg 2024 Active 2024 67310 05177 1 At bedtime By Mouth False Boost Breeze Nutritional 0.04 gram-1.05 kcal/mL oral liquid 237 ml By Mouth Twice daily Boost Breeze 237 ml oral liquids For Early satiety, low average meal intake - please record number of mL consumed 237 ml 07/02 Inactiv e 2024 34034 46447 1 Twice daily By Mouth False Prosource [...] PRN For anxiety 0.5mg 2024 Active 2024 07716 47765 0 By Mouth False Ensure clear oral liquid [Food supplemt, lactose-red uced] 120mL By Mouth Once daily For supplement 120mL 2024 Active 2024 Once daily By Mouth False Betadine Swabsticks 10 % 1 scott Topical Twice daily to bilateral heels For stage 2 pressure injury 1 scott 2024 Active 2024 68165 87705 1 Twice daily Topica l False Problems [...] weight Temperature SpO2 Blood Sugar Pulse Respirations 42369 102 48815 9 83.00 mm[Hg] - Lying Down 170.00 mm[Hg] - Lying Down 98.20 Forehead Scan 98.00 % 86.00/ min 18.00/min 75658 102 90164 4 83.00 mm[Hg] - Sitting 170.00 mm[Hg] - Sitting 98.20 Tympanic 86.00/ min 18.00/min 91824 103 32727 5 98.20 Tympanic 80238 103 12473 3 80.00 mm[Hg] - Lying Down 164.00 mm[Hg] - Lying Down 91.00/ min 20.00/min 68835 103 02996 0 80.00 mm[Hg] - Sitting 164.00 mm[Hg] - Sitting 98.20 Tympanic 91.00/ min 18.00/min 46503 103 29229 7 91.00 % 20.00/min 86442 103 67348 3 94.00 % 18.00/min 43475 103 57273 9 93718 104 88871 6 80.00 mm[Hg] - Sitting 140.00 mm[Hg] - Sitting 98.10 Tympanic 94.00 % 64.00/ min 18.00/min 75108 104 68193 1 80.00 mm[Hg] - Sitting 140.00 mm[Hg] - Sitting 98.10 Tympanic 64.00/ min 18.00/min 73404 104 09052 0 80.00 mm[Hg] - Sitting 140.00 mm[Hg] - Sitting 98.10 Tympanic 64.00/ min 18.00/min 01557 104 71401 7 73.00 mm[Hg] - Sitting 136.00 mm[Hg] - Sitting 97.90 Forehead Scan 95.00 % 74.00/ min 16.00/min 54757 104 45713 8 73.00 mm[Hg] - Sitting 135.00 mm[Hg] - Sitting 98.20 Tympanic 74.00/ min 18.00/min 07831 104 57350 6 95.00 % 18.00/min 88720 104 53033 6 96.00 % 18.00/min 38225 104 68790 4 94.00 % 18.00/min 82353 104 52526 0 18.00/mi n 43033 105 31066 0 73.00 mm[Hg] - Sitting 135.00 mm[Hg] - Sitting 98.20 Tympanic 74.00/ min 18.00/min 52897 105 65388 6 73.00 mm[Hg] - Sitting 135.00 mm[Hg] - Sitting 98.20 Tympanic 74.00/ min 20.00/min 99924 105 37879 3 53.00 mm[Hg] - Sitting 126.00 mm[Hg] - Sitting 97.00 Tympanic 99.00 % 56.00/ min 20.00/min 95709 105 58306 6 93.00 % 20.00/min 79497 105 41383 8 94.00 % 20.00/min 64453 105 44565 3 97.00 % 18.00/min 19583 105 41509 9 96.00 % 18.00/min 76058 106 93649 0 67.00 mm[Hg] - Sitting 150.00 mm[Hg] - Sitting 98.80 Forehead Scan 97.00 % 58.00/ min 16.00/min 00641 107 41405 3 136.00 NI 22294 107 39265 0 59 NI 55329 107 34683 0 61.00 mm[Hg] - Sitting 144.00 mm[Hg] - Sitting 97.90 Tympanic 93.00 % 54.00/ min 16.00/min 66841 107 48239 1 95.00 % 18.00/min 30965 107 21423 0 18.00/mi n 46262 107 97266 6 63.00 mm[Hg] - Sitting 159.00 mm[Hg] - Sitting 60.00/ min 23295 107 93466 6 94.00 % 18.00/min 96865 107 79979 3 95.00 % 18.00/min 27086 108 72802 0 55.00 mm[Hg] - Sitting 127.00 mm[Hg] - Sitting 97.80 Tympanic 95.00 % 55.00/ min 16.00/min 70417 108 24212 8 96.00 % 44752 108 21768 4 95.00 % 20.00/min 09637 108 76945 0 96.00 % 20.00/min 47182 108 86972 2 96.00 % 20.00/min 26077 109 94597 0 63.00 mm[Hg] - Sitting 131.00 mm[Hg] - Sitting 98.70 Tympanic 96.00 % 54.00/ min 18.00/min 64597 109 47153 8 94.00 % 18.00/min 66141 109 58543 2 18.00/mi n 03030 109 39256 5 97.00 % 18.00/min 23127 109 2 96.00 % 18.00/min 54198 110 84806 0 55.00 mm[Hg] - Lying Down 137.00 mm[Hg] - Lying Down 97.00 Tympanic 93.00 % 63.00/ min 20.00/min 09766 110 12633 6 94.00 % 18.00/min 42309 110 92817 8 94.00 % 18.00/min 16703 110 75626 0 74.00 mm[Hg] - Sitting 161.00 mm[Hg] - Sitting 56.00/ min 16322 110 30714 1 94.00 % 18.00/min 99168 110 97931 6 18.00/mi n 87585 111 49980 9 74.00 mm[Hg] - Sitting 161.00 mm[Hg] - Sitting 97.80 Tympanic 92.00 % 56.00/ min 16.00/min 67502 111 97242 5 94.00 % 18.00/min 53923 111 41452 5 94.00 % 18.00/min 20915 111 46568 4 95.00 % 18.00/min 92160 111 91001 3 18.00/mi n 73057 112 10866 0 58.00 mm[Hg] - Sitting 138.00 mm[Hg] - Sitting 98.20 Tympanic 92.00 % 55.00/ min 16.00/min 31816 112 85117 7 95.00 % 20.00/min 71204 112 76776 7 95.00 % 20.00/min 83476 112 09286 5 95.00 % 18.00/min 35191 112 99137 0 18.00/mi n 92278 113 68001 0 50.00 mm[Hg] - Sitting 110.00 mm[Hg] - Sitting 97.70 Forehead Scan 94.00 % 54.00/ min 20.00/min 06798 113 92763 1 95.00 % 18.00/min 26093 113 85678 2 96.00 % 18.00/min 81777 113 46426 0 95.00 % 15.00/min 21519 113 31200 4 95.00 % 18.00/min 18021 114 94656 6 55.00 mm[Hg] - Sitting 103.00 mm[Hg] - Sitting 97.50 Forehead Scan 91.00 % 55.00/ min 20.00/min 92907 114 54615 7 96.00 % 18.00/min 73095 114 92490 8 94.00 % 18.00/min 32489 114 66118 3 96.00 % 18.00/min 95237 114 91066 9 96.00 % 18.00/min 29554 114 46769 3 60.00 mm[Hg] - Sitting 110.00 mm[Hg] - Sitting 60.00/ min 86311 115 88645 0 66.00 mm[Hg] - Sitting 131.00 mm[Hg] - Sitting 97.90 Tympanic 95.00 % 71.00/ min 18.00/min 49343 115 97863 0 66.00 mm[Hg] - Sitting 125.00 mm[Hg] - Sitting 98.00 Tympanic 92.00 % 60.00/ min 16.00/min 77425 115 13851 1 96.00 % 18.00/min 07642 115 90432 5 94.00 % 18.00/min 21028 115 04965 0 95.00 % 18.00/min 83229 115 98865 7 95.00 % 18.00/min 17767 115 25724 7 78.00 mm[Hg] - Sitting 132.00 mm[Hg] - Sitting 64.00/ min 13199 116 98791 0 88.00 % 18.00/min 44378 116 28422 6 88.00 % 18.00/min 09391 116 98817 3 18.00/mi n 30651 116 19964 8 18.00/mi n Immunizations Vaccine Date Status Other 06/20/2024 Completed
--- OUTSIDE RECORDS SUMMARY | 2024-07-19 23:06 | External Medical Summary | Summary of Care ---
Author Name Unknown Organization [facility] [address] [address] Phone [phone] Care Team Providers Care Eligibility Services Representative Name Role Phone Carlin Umair Elen KEBEDE Primary Care Provider Reason for Referral * Evaluate & Treat - Unlimited Visits (Within 10 days (routine)) - Authorized Specialty Diagnoses / Procedures Referred By Al jones Referred To Contact Gastroenterology Diagnoses GERD (gastroesophageal reflux disease) Seema Lopez DO [address] [address] [place] [address] Phone: tel: fax: Referral ID Status Reason Start Date Expiration Date Visits Requested Visits Authorized [id number] Authorized Specialty Services Required 07/02/[phone] Question Answer Referral Priority Within 10 days (routine) Where should this appointment be scheduled? [facility] For what condition is the patient being referred? All Gastro Conditions Comments Gerd Encounter Details Date Type Department Care Team (Late st Contact Info) Description 07/02/2024 Orders Only Access [place], [address] *DO NOT REMOVE THIS DEPARTMENT* [place] [id number] Request, External Referral GERD (gastroesophageal reflux disease)* Allergies Active Allergy Reactions Criticality Noted Date Comments Amoxicillin 08/21/2002 shaky Clarithromycin Unknown 10/26/1999 Iodine 01/20/2004 anaphy Morphine Neuro complications (Please comment) 05/27/2003 shanon Cefdinir Other (Please comment) Medium 04/21/2016 Headache, restless Prednisone Unknown 06/16/2010 Propoxyphene Other (Please comment) 10/26/1999 "knocks me out" Propoxyphene Hcl 04/24/2000 change in mental status Pseudoephedrine Unknown 09/16/2009 Serotonin Reuptake Inhibitors (Ssris) 03/21/2001 Celexa nervous, shanon documented as of this encounter (statuses as of 07/02/2024) Medications ASPIRIN 81 MG PO TABSIndications:ta kes 3x a week Take by mouth. Indications: takes 3x a week Active triamcinolone acetonide (ARISTOCORT) 0.1 % cream Apply topically to affected area 2 times a day. To affected area. 60 g 5 8 Active oxygen IN GASIndications:ILD (interstitial lung disease) ([facility]),Moderate persistent asthma without complication,Chron ic respiratory failure with hypoxia ([facility]) Use 2 LPM with exertion. 1 Each [...] C, by GOLD 2017 classification ([facility]),Chronic diastolic CHF (congestive heart failure) ([facility]),Moderate persistent asthma without complication Inhale 1 Puff by mouth every 4 hours as needed for Wheezing. 15 g 12 3 Active Ventolin HFA 108 (90 Base) MCG/ACT Inhalation Aerosol Solution Inhale 2 Puffs by mouth every 4 hours as needed for Wheezing. 18 g 3 3 Active Furosemide 40 MG Oral Tablet (Lasix)Indications :Chronic diastolic CHF (congestive heart failure) ([facility]) Take one tablet in the morning and one in the mid afternoon 60 Tablet 11 4 Active Budesonide 0.5 MG/2ML Inhalation Suspension (Pulmicort)Indicat ions:Moderate persistent asthma without complication,ILD (interstitial lung disease) ([facility]) Inhale 0.5 mg via nebulizer in the [...] as of this encounter (statuses as of 07/02/2024) Active Problems Problem Noted Date Diagnosed Date [...] as of this encounter (statuses as of 07/02/2024) Resolved Problems Problem Noted Date Diagnosed Date [...] as of this encounter (statuses as of 07/02/2024) Immunizations Name Administration Dates Next Due COVID-19 [...] 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 Not on file Not on file [employer]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 file Not on file [employer]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 file 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 Not on file Not on file documented as of this encounter Plan of Treatment Upcoming Encounters Date Type Department Care Team (Late st Contact Info) Description 07/10/2024 10:00 AM EST Office Visit Cardiology, [facility] [address] [facility] [place] [address] Rosemarie Beyer CRNP [address] [place] [address] 07/24/2024 12:50 PM EST Office Visit Dermatology [facility] [place] [address] [place] [address] Bela Nevarez PA-C [address] [place] [address] 10/09/2024 1:40 PM EDT Office Visit Pulmonary Medicine, [facility] [address] [facility] [place] [address] Jt Leon MD [address] [facility] [address] 12/04/2024 1:00 PM EDT Office Visit Family Practice [facility] [address] [facility] [place] [address] Umair Gillis, DO [address] [facility] [place] [address] Scheduled Procedures Name Priority Associated Diagnoses Date/Ti me COLONOSCOPY FLEXIBLE PROXIMAL DIAGNOSTIC Recall History of colon polyps Scheduled Referrals Name Type Priority Associated Diagnoses Order Schedule ADULT GASTROENTEROLOGY REFERRAL OP Referral Within 10 days (routine) GERD (gastroesophageal reflux disease) Ordered: 07/02/2024 Health Maintenance Due Date Last Done Comments [...] this encounter Medical Devices Implanted Type Area Novelty Dipper Device Identifier Shelf Expiration Date Model / Serial / Lot Clip Quick 2.8mm 230cm - [id number] Implanted:Qty: 2 on 01/31/2019 by Rebecca Ayala DO at [facility] [place] 06/18/2021 [id number] / documented as of this encounter Visit Diagnoses Diagnosis GERD (gastroesophageal reflux disease)- Primary Esophageal reflux documented in this encounter Care Teams Eligibility Services Representative Relationship Specialty Start Date End Date Umair Gillis DO [address] [place], [place] [address] PCP - General Family Medicine 12/16/16 documented as of this encounter
--- OUTSIDE RECORDS SUMMARY | 2024-07-19 23:06 | External Medical Summary | Continuity Of Care Document ---
Author Name Unknown Address [address] [address] Organization [facility] () Care Team Providers Care Processing Assistant Name Role Phone DO Lopez Amy Primary Care Provider [phone] Allergies Allergy Reaction Start Date End Date [...] 3 0.1 mL 06/23 Inactiv e 2024 58776 65882 0 At bedtime Intrad ermal False Tubersol 5 tub. unit/0.1 mL intradermal injection solution [Tuberculin PPD] 0.1mL Intradermal Once daily For PPD 2nd Step Give 2nd Step PPD Day 1 and Read results Day 3 (schedule 7 days after 1st READ) 0.1mL 07/03 Inactiv e 2024 14508 41998 0 Once daily Intrad ermal False Tylenol 325 mg tablet 2 tabs By Mouth Every 4 hours as needed For Pain DO NOT EXCEED 3000 MG APAP/24 Hours 2 tabs 2024 Active 2024 73283 07861 0 Every 4 hours as needed By Mouth False Dulcolax (bisacodyl) 10 mg rectal suppository One Suppository per rectum PRN if Milk of Magnisia ineffective. Give on day 5 of no BM 1 sup 2024 Active 2024 95875 26852 1 Daily as needed Rectal False Fleet Enema 19 gram-7 gram/118 mL Administer per rectum PRN one time if dulcolax suppository not effective. Give on day 6 of no BM 1 2024 Active 2024 33235 47214 6 Daily as needed Rectal False Tylenol 325 mg tablet 2 tabs By Mouth Every 4 hours as needed For Fever >100 DO NOT EXCEED 3000 MG APAP/24 Hours 2 tabs 2024 Active 2024 71132 54137 0 Every 4 hours as needed By Mouth False Eliquis 5 mg tablet 5 mg By Mouth Twice daily For afib 5 mg 2024 Active 2024 48979 32389 1 Twice daily By Mouth False Ferrous sulfate 325 mg (65 mg iron) tablet [generic] 325 mg By Mouth Once daily For supplement 325 mg 2024 Active 2024 25565 13732 5 Once daily By Mouth False Magnesium oxide 400 mg (241.3 mg magnesium) tablet [generic] 400 mg By Mouth Once daily For supplement 400 mg 2024 Active 2024 81586 91714 2 Once daily By Mouth False Protonix 40 mg tablet,bozena yed release 40 mg By Mouth Once daily For GERD 40 mg 2024 Active 2024 14345 14234 1 Once daily By Mouth False Sotalol 120 mg tablet [generic] 120 mg By Mouth Twice daily For SVT 120 mg 2024 Active 2024 97386 86695 1 Twice daily By Mouth False Rosuvastati n 20 mg tablet [generic] 20 mg By Mouth Once daily For HLD 20 mg 2024 Active 2024 38101 92678 0 Once daily By Mouth False Arformotero l 15 mcg/2 mL solution for nebulizatio n [generic] 15 mcg Inhalation Twice daily For copd/asthma/ interstitial lung disease 15 mcg 06/20 Inactiv e 2024 17528 37119 0 Twice daily Inhala tion False Budesonide 0.5 mg/2 mL suspension for nebulizatio n [generic] 0.5 mg Inhalation Twice daily For copd/ asthma/ interstital lung disease 0.5 mg 2024 Active 2024 58078 29697 8 Twice daily Inhala tion False Furosemide 40 mg tablet [generic] 40 mg By Mouth Once daily For chronic diastolic CHF 40 mg 2024 Active 2024 26897 11351 0 Once daily By Mouth False Furosemide 40 mg tablet [generic] 40 mg By Mouth Once daily For chronic diastolic CHF 40 mg 2024 Active 2024 19784 15486 0 Once daily By Mouth False Ventolin HFA 90 mcg/actuati on aerosol inhaler 2 puff Inhalation Every 6 hours as needed For SOB/ wheeze 2 puff 2024 Active 2024 68400 39729 0 Every 6 hours as needed Inhala tion False Amitriptyli ne 25 mg tablet [generic] 25 mg By Mouth At bedtime For general anxiety disorder 25 mg 06/26 Inactiv e 2024 76831 64573 1 At bedtime By Mouth False Levothyroxi ne 125 mcg tablet [generic] 125 mcg By Mouth Once daily For hypothyroidis m 125 mcg 2024 Active 2024 79465 89650 0 Once daily By Mouth False Arformotero l 15 mcg/2 mL solution for nebulizatio n [generic] 06/20 Inactiv e 2024 80038 90098 0 Arformotero l 15 mcg/2 mL solution for nebulizatio n [generic] 15 mcg Inhalation Twice daily For copd/asthma/ interstitial lung disease 15 mcg 2024 Active 2024 68159 45085 0 Twice daily Inhala tion False Clonazepam 0.5 mg tablet [generic] 0.5mg By Mouth As Needed q12 hour PRN For anxiety 0.5mg 06/28 Inactiv e 2024 47851 45646 0 By Mouth False Colace 100 mg capsule 100 mg By Mouth Twice daily For Constipation 100 mg 2024 Active 2024 69067 06413 1 Twice daily By Mouth False Boost 0.04 gram-1 kcal/mL oral liquid 1 carton By Mouth 3 times a day For malnutrition 1 carton 06/27 Inactiv e 2024 30752 95533 9 3 times a day By Mouth False Amitriptyli ne 10 mg tablet [generic] 10mg By Mouth At bedtime along with 25 mg dose to equal 35mg For anxiety 10mg 2024 Active 2024 06956 13110 1 At bedtime By Mouth False Amitriptyli ne 25 mg tablet [generic] 06/26 Inactiv e 2024 47182 20327 1 Amitriptyli ne 25 mg tablet [generic] 25 mg By Mouth At bedtime Along with 10mg to equal 35mg. for anxiety 25 mg 2024 Active 2024 44597 41270 1 At bedtime By Mouth False Boost Breeze Nutritional 0.04 gram-1.05 kcal/mL oral liquid 237 ml By Mouth Twice daily Boost Breeze 237 ml oral liquids For Early satiety, low average meal intake - please record number of mL consumed 237 ml 07/02 Inactiv e 2024 51163 85686 1 Twice daily By Mouth False Prosource [...] PRN For anxiety 0.5mg 2024 Active 2024 58133 22766 0 By Mouth False Ensure clear oral liquid [Food supplemt, lactose-red uced] 120mL By Mouth Once daily For supplement 120mL 2024 Active 2024 Once daily By Mouth False Betadine Swabsticks 10 % 1 scott Topical Twice daily to bilateral heels For stage 2 pressure injury 1 scott 2024 Active 2024 63198 18664 1 Twice daily Topica l False Problems [...] weight Temperature SpO2 Blood Sugar Pulse Respirations 32554 102 50737 9 83.00 mm[Hg] - Lying Down 170.00 mm[Hg] - Lying Down 98.20 Forehead Scan 98.00 % 86.00/ min 18.00/min 79319 102 57106 4 83.00 mm[Hg] - Sitting 170.00 mm[Hg] - Sitting 98.20 Tympanic 86.00/ min 18.00/min 47492 103 64294 5 98.20 Tympanic 31976 103 69998 3 80.00 mm[Hg] - Lying Down 164.00 mm[Hg] - Lying Down 91.00/ min 20.00/min 32442 103 75685 0 80.00 mm[Hg] - Sitting 164.00 mm[Hg] - Sitting 98.20 Tympanic 91.00/ min 18.00/min 01530 103 25017 7 91.00 % 20.00/min 53529 103 93479 3 94.00 % 18.00/min 74661 103 80642 9 30960 104 11296 6 80.00 mm[Hg] - Sitting 140.00 mm[Hg] - Sitting 98.10 Tympanic 94.00 % 64.00/ min 18.00/min 54429 104 52593 1 80.00 mm[Hg] - Sitting 140.00 mm[Hg] - Sitting 98.10 Tympanic 64.00/ min 18.00/min 73709 104 13443 0 80.00 mm[Hg] - Sitting 140.00 mm[Hg] - Sitting 98.10 Tympanic 64.00/ min 18.00/min 85235 104 30110 7 73.00 mm[Hg] - Sitting 136.00 mm[Hg] - Sitting 97.90 Forehead Scan 95.00 % 74.00/ min 16.00/min 11490 104 21768 8 73.00 mm[Hg] - Sitting 135.00 mm[Hg] - Sitting 98.20 Tympanic 74.00/ min 18.00/min 12758 104 37805 6 95.00 % 18.00/min 04862 104 33651 6 96.00 % 18.00/min 41203 104 51140 4 94.00 % 18.00/min 60023 104 12964 0 18.00/mi n 11764 105 63236 0 73.00 mm[Hg] - Sitting 135.00 mm[Hg] - Sitting 98.20 Tympanic 74.00/ min 18.00/min 22941 105 37952 6 73.00 mm[Hg] - Sitting 135.00 mm[Hg] - Sitting 98.20 Tympanic 74.00/ min 20.00/min 69448 105 74960 3 53.00 mm[Hg] - Sitting 126.00 mm[Hg] - Sitting 97.00 Tympanic 99.00 % 56.00/ min 20.00/min 06660 105 07836 6 93.00 % 20.00/min 87671 105 86566 8 94.00 % 20.00/min 28299 105 78424 3 97.00 % 18.00/min 74002 105 71336 9 96.00 % 18.00/min 90512 106 61073 0 67.00 mm[Hg] - Sitting 150.00 mm[Hg] - Sitting 98.80 Forehead Scan 97.00 % 58.00/ min 16.00/min 03532 107 98078 3 136.00 NI 58301 107 45932 0 59 NI 36566 107 49669 0 61.00 mm[Hg] - Sitting 144.00 mm[Hg] - Sitting 97.90 Tympanic 93.00 % 54.00/ min 16.00/min 96440 107 77489 1 95.00 % 18.00/min 35211 107 08004 0 18.00/mi n 56361 107 11498 6 63.00 mm[Hg] - Sitting 159.00 mm[Hg] - Sitting 60.00/ min 62750 107 35545 6 94.00 % 18.00/min 22231 107 18012 3 95.00 % 18.00/min 78209 108 90013 0 55.00 mm[Hg] - Sitting 127.00 mm[Hg] - Sitting 97.80 Tympanic 95.00 % 55.00/ min 16.00/min 38960 108 01470 8 96.00 % 05010 108 99836 4 95.00 % 20.00/min 45723 108 01496 0 96.00 % 20.00/min 58613 108 44068 2 96.00 % 20.00/min 91549 109 10729 0 63.00 mm[Hg] - Sitting 131.00 mm[Hg] - Sitting 98.70 Tympanic 96.00 % 54.00/ min 18.00/min 58556 109 48323 8 94.00 % 18.00/min 52639 109 90805 2 18.00/mi n 00477 109 68845 5 97.00 % 18.00/min 40532 109 2 96.00 % 18.00/min 88177 110 47819 0 55.00 mm[Hg] - Lying Down 137.00 mm[Hg] - Lying Down 97.00 Tympanic 93.00 % 63.00/ min 20.00/min 73600 110 64697 6 94.00 % 18.00/min 19889 110 85216 8 94.00 % 18.00/min 06403 110 29582 0 74.00 mm[Hg] - Sitting 161.00 mm[Hg] - Sitting 56.00/ min 56510 110 21629 1 94.00 % 18.00/min 90390 110 88703 6 18.00/mi n 68313 111 83224 9 74.00 mm[Hg] - Sitting 161.00 mm[Hg] - Sitting 97.80 Tympanic 92.00 % 56.00/ min 16.00/min 42658 111 15288 5 94.00 % 18.00/min 34279 111 81051 5 94.00 % 18.00/min 47418 111 47812 4 95.00 % 18.00/min 91017 111 14071 3 18.00/mi n 89014 112 59318 0 58.00 mm[Hg] - Sitting 138.00 mm[Hg] - Sitting 98.20 Tympanic 92.00 % 55.00/ min 16.00/min 96634 112 19345 7 95.00 % 20.00/min 77168 112 32605 7 95.00 % 20.00/min 25634 112 60388 5 95.00 % 18.00/min 56862 112 53016 0 18.00/mi n 72486 113 62264 0 50.00 mm[Hg] - Sitting 110.00 mm[Hg] - Sitting 97.70 Forehead Scan 94.00 % 54.00/ min 20.00/min 36236 113 41747 1 95.00 % 18.00/min 93209 113 30983 2 96.00 % 18.00/min 68521 113 23951 0 95.00 % 15.00/min 40452 113 00536 4 95.00 % 18.00/min 29179 114 21911 6 55.00 mm[Hg] - Sitting 103.00 mm[Hg] - Sitting 97.50 Forehead Scan 91.00 % 55.00/ min 20.00/min 53367 114 44993 7 96.00 % 18.00/min 04592 114 27444 8 94.00 % 18.00/min 30160 114 55773 3 96.00 % 18.00/min 75181 114 94004 9 96.00 % 18.00/min 93767 114 37707 3 60.00 mm[Hg] - Sitting 110.00 mm[Hg] - Sitting 60.00/ min 50587 115 52344 0 66.00 mm[Hg] - Sitting 131.00 mm[Hg] - Sitting 97.90 Tympanic 95.00 % 71.00/ min 18.00/min 12319 115 75628 0 66.00 mm[Hg] - Sitting 125.00 mm[Hg] - Sitting 98.00 Tympanic 92.00 % 60.00/ min 16.00/min 10679 115 43756 1 96.00 % 18.00/min 68016 115 53619 5 94.00 % 18.00/min 89734 115 67905 0 95.00 % 18.00/min 40035 115 50770 7 95.00 % 18.00/min 12015 115 25529 7 78.00 mm[Hg] - Sitting 132.00 mm[Hg] - Sitting 64.00/ min 32745 116 55187 0 88.00 % 18.00/min 61205 116 70918 6 88.00 % 18.00/min 32833 116 44101 3 18.00/mi n 85408 116 06556 8 18.00/mi n Immunizations Vaccine Date Status Other 06/20/2024 Completed
--- OUTSIDE RECORDS SUMMARY | 2024-07-19 23:06 | External Medical Summary | Summary of Care ---
Author Name Unknown Organization [facility] Address [address] [facility] [place] [address] Phone [phone] Care Team Providers Care Factory Focus Technician Name Role Phone Umair Gillis DO Primary Care Provider Reason for Visit * Reason Onset Date Comments Fax 07/02/2024 Encounter Details Date Type Department Care Team (Late st Contact Info) Description 07/02/2024 Telephone Family Practice [facility] [address] [facility] [place] [address] Umair Gillis DO [address] [facility] [place] [address] Fax Allergies Active Allergy Reactions Criticality Noted Date [...] Active oxygen IN GASIndications:ILD (interstitial lung disease) ([facility]),Moderate persistent asthma without complication,Chron ic respiratory failure with hypoxia ([facility]) Use 2 LPM with exertion. [...] PD, group C, by GOLD 2017 classification ([facility]),Chronic diastolic CHF (congestive heart failure) ([facility]),Moderate persistent asthma without complication Inhale 1 Puff by mouth every 4 hours as needed for Wheezing. 15 g 12 3 Active Ventolin HFA 108 (90 Base) MCG/ACT Inhalation Aerosol Solution Inhale 2 Puffs by mouth every 4 hours as needed for Wheezing. 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 Name/Company sending fax: Osei ramirez What fax is pertaining to: Gastro referral Date(s) they sent request: 06/28-07/05 Verified fax number they are sending to is correct (Y or N): yes Callback Number for the clinic to call to verified if fax was received: [phone] documented in this encounter Plan of Treatment Upcoming Encounters Date Type Department Care Team (Late st Contact Info) Description 07/10/2024 10:00 AM EST Office Visit Cardiology, [facility] [address] [facility] [place] [address] Rosemarie Beyer, YUDY [address] [place] [address] 07/24/2024 12:50 PM EST Office Visit Dermatology [facility] [place] [address] [place] [address] Bela Nevarez PA-C [address] [place] [address] 10/09/2024 1:40 PM EDT Office Visit Pulmonary Medicine, [facility] [address] [facility] [place] [address] Jt Leon [facility] [address] [facility] [address] 12/04/2024 1:00 PM EDT Office Visit Family Practice [facility] [address] [facility] [place] [place] [address] Umair Gillis, [address] [facility] [place], [place] [address] Scheduled Procedures Name Priority Associated Diagnoses Date/Ti [...] this encounter Medical Devices Implanted Type Area Stevedoring Supervisor Device Identifier Shelf Expiration Date Model / Serial / Lot Clip Quick 2.8mm 230cm - [id number] Implanted:Qty: 2 on 01/31/2019 by Rebecca Ayala DO at [facility] [employer] [facility] 06/18/2021 [id number] / documented as of this encounter Care Teams Factory Focus Technician Relationship Specialty Start Date End Date Umair Gillis DO [address] [place] [address] PCP - General Family Medicine 12/16/16 documented as of this encounter
--- OUTSIDE RECORDS SUMMARY | 2024-07-19 23:06 | External Medical Summary | Continuity Of Care Document ---
Author Name Unknown Address [address] [address] Organization [facility] () Care Team Providers Care Sander Portable Machine Name Role Phone DO Lopez Amy Primary Care Provider [phone] Allergies Allergy Reaction Start Date End Date [...] 3 0.1 mL 06/23 Inactiv e 2024 45955 27732 0 At bedtime Intrad ermal False Tubersol 5 tub. unit/0.1 mL intradermal injection solution [Tuberculin PPD] 0.1mL Intradermal Once daily For PPD 2nd Step Give 2nd Step PPD Day 1 and Read results Day 3 (schedule 7 days after 1st READ) 0.1mL 07/03 Active 2024 70791 29641 0 Once daily Intrad ermal False Tylenol 325 mg tablet 2 tabs By Mouth Every 4 hours as needed For Pain DO NOT EXCEED 3000 MG APAP/24 Hours 2 tabs 2024 Active 2024 60682 99483 0 Every 4 hours as needed By Mouth False Dulcolax (bisacodyl) 10 mg rectal suppository One Suppository per rectum PRN if Milk of Magnisia ineffective. Give on day 5 of no BM 1 sup 2024 Active 2024 77594 08869 1 Daily as needed Rectal False Fleet Enema 19 gram-7 gram/118 mL Administer per rectum PRN one time if dulcolax suppository not effective. Give on day 6 of no BM 1 2024 Active 2024 92636 68414 6 Daily as needed Rectal False Tylenol 325 mg tablet 2 tabs By Mouth Every 4 hours as needed For Fever >100 DO NOT EXCEED 3000 MG APAP/24 Hours 2 tabs 2024 Active 2024 31415 83643 0 Every 4 hours as needed By Mouth False Eliquis 5 mg tablet 5 mg By Mouth Twice daily For afib 5 mg 2024 Active 2024 81743 84539 1 Twice daily By Mouth False Ferrous sulfate 325 mg (65 mg iron) tablet [generic] 325 mg By Mouth Once daily For supplement 325 mg 2024 Active 2024 46706 50095 5 Once daily By Mouth False Magnesium oxide 400 mg (241.3 mg magnesium) tablet [generic] 400 mg By Mouth Once daily For supplement 400 mg 2024 Active 2024 04200 25317 2 Once daily By Mouth False Protonix 40 mg tablet,bozena yed release 40 mg By Mouth Once daily For GERD 40 mg 2024 Active 2024 29078 90863 1 Once daily By Mouth False Sotalol 120 mg tablet [generic] 120 mg By Mouth Twice daily For SVT 120 mg 2024 Active 2024 75969 07574 1 Twice daily By Mouth False Rosuvastati n 20 mg tablet [generic] 20 mg By Mouth Once daily For HLD 20 mg 2024 Active 2024 75464 98798 0 Once daily By Mouth False Arformotero l 15 mcg/2 mL solution for nebulizatio n [generic] 15 mcg Inhalation Twice daily For copd/asthma/ interstitial lung disease 15 mcg 06/20 Inactiv e 2024 10932 79611 0 Twice daily Inhala tion False Budesonide 0.5 mg/2 mL suspension for nebulizatio n [generic] 0.5 mg Inhalation Twice daily For copd/ asthma/ interstital lung disease 0.5 mg 2024 Active 2024 77014 36281 8 Twice daily Inhala tion False Furosemide 40 mg tablet [generic] 40 mg By Mouth Once daily For chronic diastolic CHF 40 mg 2024 Active 2024 90398 54055 0 Once daily By Mouth False Furosemide 40 mg tablet [generic] 40 mg By Mouth Once daily For chronic diastolic CHF 40 mg 2024 Active 2024 42059 69103 0 Once daily By Mouth False Ventolin HFA 90 mcg/actuati on aerosol inhaler 2 puff Inhalation Every 6 hours as needed For SOB/ wheeze 2 puff 2024 Active 2024 76244 54826 0 Every 6 hours as needed Inhala tion False Amitriptyli ne 25 mg tablet [generic] 25 mg By Mouth At bedtime For general anxiety disorder 25 mg 06/26 Inactiv e 2024 09588 86829 1 At bedtime By Mouth False Levothyroxi ne 125 mcg tablet [generic] 125 mcg By Mouth Once daily For hypothyroidis m 125 mcg 2024 Active 2024 36571 26027 0 Once daily By Mouth False Arformotero l 15 mcg/2 mL solution for nebulizatio n [generic] 06/20 Inactiv e 2024 01634 12682 0 Arformotero l 15 mcg/2 mL solution for nebulizatio n [generic] 15 mcg Inhalation Twice daily For copd/asthma/ interstitial lung disease 15 mcg 2024 Active 2024 34303 46174 0 Twice daily Inhala tion False Clonazepam 0.5 mg tablet [generic] 0.5mg By Mouth As Needed q12 hour PRN For anxiety 0.5mg 06/28 Inactiv e 2024 50020 58418 0 By Mouth False Colace 100 mg capsule 100 mg By Mouth Twice daily For Constipation 100 mg 2024 Active 2024 32694 84385 1 Twice daily By Mouth False Boost 0.04 gram-1 kcal/mL oral liquid 1 carton By Mouth 3 times a day For malnutrition 1 carton 06/27 Inactiv e 2024 84591 66861 9 3 times a day By Mouth False Amitriptyli ne 10 mg tablet [generic] 10mg By Mouth At bedtime along with 25 mg dose to equal 35mg For anxiety 10mg 2024 Active 2024 84151 55778 1 At bedtime By Mouth False Amitriptyli ne 25 mg tablet [generic] 06/26 Inactiv e 2024 67777 11081 1 Amitriptyli ne 25 mg tablet [generic] 25 mg By Mouth At bedtime Along with 10mg to equal 35mg. for anxiety 25 mg 2024 Active 2024 45124 15367 1 At bedtime By Mouth False Boost Breeze Nutritional 0.04 gram-1.05 kcal/mL oral liquid 237 ml By Mouth Twice daily Boost Breeze 237 ml oral liquids For Early satiety, low average meal intake - please record number of mL consumed 237 ml 07/02 Inactiv e 2024 53085 03767 1 Twice daily By Mouth False Prosource [...] PRN For anxiety 0.5mg 2024 Active 2024 20701 62702 0 By Mouth False Ensure clear oral liquid [Food supplemt, lactose-red uced] 120mL By Mouth Once daily For supplement 120mL 2024 Active 2024 Once daily By Mouth False Betadine Swabsticks 10 % 1 scott Topical Twice daily to bilateral heels For stage 2 pressure injury 1 scott 2024 Active 2024 27261 08444 1 Twice daily Topica l False Problems [...] weight Temperature SpO2 Blood Sugar Pulse Respirations 79156 102 50078 9 83.00 mm[Hg] - Lying Down 170.00 mm[Hg] - Lying Down 98.20 Forehead Scan 98.00 % 86.00/ min 18.00/min 02967 102 04672 4 83.00 mm[Hg] - Sitting 170.00 mm[Hg] - Sitting 98.20 Tympanic 86.00/ min 18.00/min 56702 103 89977 5 98.20 Tympanic 31293 103 48770 3 80.00 mm[Hg] - Lying Down 164.00 mm[Hg] - Lying Down 91.00/ min 20.00/min 35277 103 78348 0 80.00 mm[Hg] - Sitting 164.00 mm[Hg] - Sitting 98.20 Tympanic 91.00/ min 18.00/min 45579 103 25231 7 91.00 % 20.00/min 88862 103 28122 3 94.00 % 18.00/min 65608 103 95792 9 18536 104 99614 6 80.00 mm[Hg] - Sitting 140.00 mm[Hg] - Sitting 98.10 Tympanic 94.00 % 64.00/ min 18.00/min 06957 104 13455 1 80.00 mm[Hg] - Sitting 140.00 mm[Hg] - Sitting 98.10 Tympanic 64.00/ min 18.00/min 90033 104 53453 0 80.00 mm[Hg] - Sitting 140.00 mm[Hg] - Sitting 98.10 Tympanic 64.00/ min 18.00/min 12825 104 81493 7 73.00 mm[Hg] - Sitting 136.00 mm[Hg] - Sitting 97.90 Forehead Scan 95.00 % 74.00/ min 16.00/min 12978 104 90551 8 73.00 mm[Hg] - Sitting 135.00 mm[Hg] - Sitting 98.20 Tympanic 74.00/ min 18.00/min 61454 104 43042 6 95.00 % 18.00/min 93213 104 84437 6 96.00 % 18.00/min 56971 104 13001 4 94.00 % 18.00/min 91504 104 30405 0 18.00/mi n 66001 105 60233 0 73.00 mm[Hg] - Sitting 135.00 mm[Hg] - Sitting 98.20 Tympanic 74.00/ min 18.00/min 99801 105 26560 6 73.00 mm[Hg] - Sitting 135.00 mm[Hg] - Sitting 98.20 Tympanic 74.00/ min 20.00/min 55271 105 16207 3 53.00 mm[Hg] - Sitting 126.00 mm[Hg] - Sitting 97.00 Tympanic 99.00 % 56.00/ min 20.00/min 61551 105 67463 6 93.00 % 20.00/min 58037 105 92691 8 94.00 % 20.00/min 62137 105 61582 3 97.00 % 18.00/min 85460 105 55191 9 96.00 % 18.00/min 44874 106 79604 0 67.00 mm[Hg] - Sitting 150.00 mm[Hg] - Sitting 98.80 Forehead Scan 97.00 % 58.00/ min 16.00/min 29405 107 01445 3 136.00 NI 84731 107 32969 0 59 NI 79121 107 71583 0 61.00 mm[Hg] - Sitting 144.00 mm[Hg] - Sitting 97.90 Tympanic 93.00 % 54.00/ min 16.00/min 46096 107 44713 1 95.00 % 18.00/min 65636 107 94669 0 18.00/mi n 59933 107 89150 6 63.00 mm[Hg] - Sitting 159.00 mm[Hg] - Sitting 60.00/ min 86259 107 22788 6 94.00 % 18.00/min 96035 107 93010 3 95.00 % 18.00/min 39595 108 75457 0 55.00 mm[Hg] - Sitting 127.00 mm[Hg] - Sitting 97.80 Tympanic 95.00 % 55.00/ min 16.00/min 76768 108 70965 8 96.00 % 79402 108 22563 4 95.00 % 20.00/min 89171 108 98712 0 96.00 % 20.00/min 02384 108 14332 2 96.00 % 20.00/min 53253 109 66122 0 63.00 mm[Hg] - Sitting 131.00 mm[Hg] - Sitting 98.70 Tympanic 96.00 % 54.00/ min 18.00/min 89336 109 78198 8 94.00 % 18.00/min 72594 109 09303 2 18.00/mi n 24198 109 58267 5 97.00 % 18.00/min 02941 109 2 96.00 % 18.00/min 50461 110 15545 0 55.00 mm[Hg] - Lying Down 137.00 mm[Hg] - Lying Down 97.00 Tympanic 93.00 % 63.00/ min 20.00/min 54432 110 56354 6 94.00 % 18.00/min 88093 110 04120 8 94.00 % 18.00/min 51735 110 86726 0 74.00 mm[Hg] - Sitting 161.00 mm[Hg] - Sitting 56.00/ min 94863 110 38189 1 94.00 % 18.00/min 66154 110 82992 6 18.00/mi n 55261 111 74445 9 74.00 mm[Hg] - Sitting 161.00 mm[Hg] - Sitting 97.80 Tympanic 92.00 % 56.00/ min 16.00/min 90576 111 83030 5 94.00 % 18.00/min 68712 111 44365 5 94.00 % 18.00/min 57612 111 30413 4 95.00 % 18.00/min 94984 111 90665 3 18.00/mi n 92422 112 48344 0 58.00 mm[Hg] - Sitting 138.00 mm[Hg] - Sitting 98.20 Tympanic 92.00 % 55.00/ min 16.00/min 30846 112 49495 7 95.00 % 20.00/min 01878 112 14616 7 95.00 % 20.00/min 50931 112 61710 5 95.00 % 18.00/min 74160 112 91781 0 18.00/mi n 71894 113 49717 0 50.00 mm[Hg] - Sitting 110.00 mm[Hg] - Sitting 97.70 Forehead Scan 94.00 % 54.00/ min 20.00/min 80693 113 09807 1 95.00 % 18.00/min 76791 113 60887 2 96.00 % 18.00/min 42701 113 99444 0 95.00 % 15.00/min 86005 113 33532 4 95.00 % 18.00/min 44504 114 38097 7 96.00 % 18.00/min 28759 114 40211 8 94.00 % 18.00/min Immunizations Vaccine Date Status Other 06/20/2024 Completed
--- OUTSIDE RECORDS SUMMARY | 2024-07-19 23:07 | External Medical Summary | Continuity Of Care Document ---
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 unit/0.1 mL intradermal injection solution [Tuberculin PPD] 0.1mL Intradermal Once daily For PPD 2nd Step Give 2nd Step PPD Day 1 and Read results Day 3 (schedule 7 days after 1st READ) 0.1mL 07/03 Active 2024 85501 24337 0 Once daily Intrad ermal False Tylenol 325 mg tablet 2 tabs By Mouth Every 4 hours as needed For Pain DO NOT EXCEED 3000 MG APAP/24 Hours 2 tabs 2024 Active 2024 25064 14185 0 Every 4 hours as needed By Mouth False Dulcolax (bisacodyl) 10 mg rectal suppository One Suppository per rectum PRN if Milk of Magnisia ineffective. Give on day 5 of no BM 1 sup 2024 Active 2024 18247 32092 1 Daily as needed Rectal False Fleet Enema 19 gram-7 gram/118 mL Administer per rectum PRN one time if dulcolax suppository not effective. Give on day 6 of no BM 1 2024 Active 2024 20983 27764 6 Daily as needed Rectal False Tylenol 325 mg tablet 2 tabs By Mouth Every 4 hours as needed For Fever >100 DO NOT EXCEED 3000 MG APAP/24 Hours 2 tabs 2024 Active 2024 60839 22331 0 Every 4 hours as needed By Mouth False Eliquis 5 mg tablet 5 mg By Mouth Twice daily For afib 5 mg 2024 Active 2024 44680 49247 1 Twice daily By Mouth False Ferrous sulfate 325 mg (65 mg iron) tablet [generic] 325 mg By Mouth Once daily For supplement 325 mg 2024 Active 2024 19502 34292 5 Once daily By Mouth False Magnesium oxide 400 mg (241.3 mg magnesium) tablet [generic] 400 mg By Mouth Once daily For supplement 400 mg 2024 Active 2024 62030 54323 2 Once daily By Mouth False Protonix 40 mg tablet,bozena yed release 40 mg By Mouth Once daily For GERD 40 mg 2024 Active 2024 87258 74535 1 Once daily By Mouth False Sotalol 120 mg tablet [generic] 120 mg By Mouth Twice daily For SVT 120 mg 2024 Active 2024 91179 87852 1 Twice daily By Mouth False Rosuvastati n 20 mg tablet [generic] 20 mg By Mouth Once daily For HLD 20 mg 2024 Active 2024 29092 41611 0 Once daily By Mouth False Arformotero l 15 mcg/2 mL solution for nebulizatio n [generic] 15 mcg Inhalation Twice daily For copd/asthma/ interstitial lung disease 15 mcg 06/20 Inactiv e 2024 99125 40718 0 Twice daily Inhala tion False Budesonide 0.5 mg/2 mL suspension for nebulizatio n [generic] 0.5 mg Inhalation Twice daily For copd/ asthma/ interstital lung disease 0.5 mg 2024 Active 2024 62602 54372 8 Twice daily Inhala tion False Furosemide 40 mg tablet [generic] 40 mg By Mouth Once daily For chronic diastolic CHF 40 mg 2024 Active 2024 90982 62023 0 Once daily By Mouth False Furosemide 40 mg tablet [generic] 40 mg By Mouth Once daily For chronic diastolic CHF 40 mg 2024 Active 2024 56515 32123 0 Once daily By Mouth False Ventolin HFA 90 mcg/actuati on aerosol inhaler 2 puff Inhalation Every 6 hours as needed For SOB/ wheeze 2 puff 2024 Active 2024 10442 98045 0 Every 6 hours as needed Inhala tion False Amitriptyli ne 25 mg tablet [generic] 25 mg By Mouth At bedtime For general anxiety disorder 25 mg 06/26 Inactiv e 2024 01284 34069 1 At bedtime By Mouth False Levothyroxi ne 125 mcg tablet [generic] 125 mcg By Mouth Once daily For hypothyroidis m 125 mcg 2024 Active 2024 23256 91854 0 Once daily By Mouth False Arformotero l 15 mcg/2 mL solution for nebulizatio n [generic] 06/20 Inactiv e 2024 95181 24968 0 Arformotero l 15 mcg/2 mL solution for nebulizatio n [generic] 15 mcg Inhalation Twice daily For copd/asthma/ interstitial lung disease 15 mcg 2024 Active 2024 72136 99661 0 Twice daily Inhala tion False Clonazepam 0.5 mg tablet [generic] 0.5mg By Mouth As Needed q12 hour PRN For anxiety 0.5mg 06/28 Inactiv e 2024 27490 95099 0 By Mouth False Colace 100 mg capsule 100 mg By Mouth Twice daily For Constipation 100 mg 2024 Active 2024 63136 09905 1 Twice daily By Mouth False Boost 0.04 gram-1 kcal/mL oral liquid 1 carton By Mouth 3 times a day For malnutrition 1 carton 06/27 Inactiv e 2024 86610 30761 9 3 times a day By Mouth False Amitriptyli ne 10 mg tablet [generic] 10mg By Mouth At bedtime along with 25 mg dose to equal 35mg For anxiety 10mg 2024 Active 2024 18333 94195 1 At bedtime By Mouth False Amitriptyli ne 25 mg tablet [generic] 06/26 Inactiv e 2024 67657 79862 1 Amitriptyli ne 25 mg tablet [generic] 25 mg By Mouth At bedtime Along with 10mg to equal 35mg. for anxiety 25 mg 2024 Active 2024 92012 38136 1 At bedtime By Mouth False Boost Breeze Nutritional 0.04 gram-1.05 kcal/mL oral liquid 237 ml By Mouth Twice daily Boost Breeze 237 ml oral liquids For Early satiety, low average meal intake - please record number of mL consumed 237 ml 07/02 Inactiv e 2024 75212 14988 1 Twice daily By Mouth False Prosource [...] PRN For anxiety 0.5mg 2024 Active 2024 45005 20728 0 By Mouth False Ensure clear oral liquid [Food supplemt, lactose-red uced] 120mL By Mouth Once daily For supplement 120mL 2024 Active 2024 Once daily By Mouth False Betadine Swabsticks 10 % 1 scott Topical Twice daily to bilateral heels For stage 2 pressure injury 1 scott 2024 Active 2024 05543 61362 1 Twice daily Topica l False Problems [...] weight Temperature SpO2 Blood Sugar Pulse Respirations 04900 102 97570 9 83.00 mm[Hg] - Lying Down 170.00 mm[Hg] - Lying Down 98.20 Forehead Scan 98.00 % 86.00/ min 18.00/min 94371 102 69701 4 83.00 mm[Hg] - Sitting 170.00 mm[Hg] - Sitting 98.20 Tympanic 86.00/ min 18.00/min 57067 103 64404 5 98.20 Tympanic 89897 103 56858 3 80.00 mm[Hg] - Lying Down 164.00 mm[Hg] - Lying Down 91.00/ min 20.00/min 50600 103 41117 0 80.00 mm[Hg] - Sitting 164.00 mm[Hg] - Sitting 98.20 Tympanic 91.00/ min 18.00/min 68155 103 77365 7 91.00 % 20.00/min 28251 103 60786 3 94.00 % 18.00/min 95303 103 29550 9 37925 104 35066 6 80.00 mm[Hg] - Sitting 140.00 mm[Hg] - Sitting 98.10 Tympanic 94.00 % 64.00/ min 18.00/min 51411 104 30871 1 80.00 mm[Hg] - Sitting 140.00 mm[Hg] - Sitting 98.10 Tympanic 64.00/ min 18.00/min 18389 104 38662 0 80.00 mm[Hg] - Sitting 140.00 mm[Hg] - Sitting 98.10 Tympanic 64.00/ min 18.00/min 93002 104 52474 7 73.00 mm[Hg] - Sitting 136.00 mm[Hg] - Sitting 97.90 Forehead Scan 95.00 % 74.00/ min 16.00/min 83652 104 79136 8 73.00 mm[Hg] - Sitting 135.00 mm[Hg] - Sitting 98.20 Tympanic 74.00/ min 18.00/min 01687 104 00541 6 95.00 % 18.00/min 46838 104 21441 6 96.00 % 18.00/min 33350 104 87021 4 94.00 % 18.00/min 40721 104 21424 0 18.00/mi n 01881 105 15572 0 73.00 mm[Hg] - Sitting 135.00 mm[Hg] - Sitting 98.20 Tympanic 74.00/ min 18.00/min 09839 105 33143 6 73.00 mm[Hg] - Sitting 135.00 mm[Hg] - Sitting 98.20 Tympanic 74.00/ min 20.00/min 74592 105 37955 3 53.00 mm[Hg] - Sitting 126.00 mm[Hg] - Sitting 97.00 Tympanic 99.00 % 56.00/ min 20.00/min 53320 105 44980 6 93.00 % 20.00/min 82366 105 89147 8 94.00 % 20.00/min 31088 105 87887 3 97.00 % 18.00/min 65878 105 42981 9 96.00 % 18.00/min 59330 106 94619 0 67.00 mm[Hg] - Sitting 150.00 mm[Hg] - Sitting 98.80 Forehead Scan 97.00 % 58.00/ min 16.00/min 04295 107 17911 3 136.00 NI 15403 107 87110 0 59 NI 69602 107 37616 0 61.00 mm[Hg] - Sitting 144.00 mm[Hg] - Sitting 97.90 Tympanic 93.00 % 54.00/ min 16.00/min 40909 107 90021 1 95.00 % 18.00/min 96209 107 33104 0 18.00/mi n 98318 107 85902 6 63.00 mm[Hg] - Sitting 159.00 mm[Hg] - Sitting 60.00/ min 25749 107 95335 6 94.00 % 18.00/min 86961 107 90048 3 95.00 % 18.00/min 35516 108 68234 0 55.00 mm[Hg] - Sitting 127.00 mm[Hg] - Sitting 97.80 Tympanic 95.00 % 55.00/ min 16.00/min 18357 108 89342 8 96.00 % 56876 108 62903 4 95.00 % 20.00/min 98387 108 50228 0 96.00 % 20.00/min 69309 108 09819 2 96.00 % 20.00/min 76295 109 60063 0 63.00 mm[Hg] - Sitting 131.00 mm[Hg] - Sitting 98.70 Tympanic 96.00 % 54.00/ min 18.00/min 23111 109 53351 8 94.00 % 18.00/min 21353 109 72889 2 18.00/mi n 37278 109 29996 5 97.00 % 18.00/min 12535 109 2 96.00 % 18.00/min 85448 110 24672 0 55.00 mm[Hg] - Lying Down 137.00 mm[Hg] - Lying Down 97.00 Tympanic 93.00 % 63.00/ min 20.00/min 36659 110 67047 6 94.00 % 18.00/min 47667 110 55834 8 94.00 % 18.00/min 54336 110 98280 0 74.00 mm[Hg] - Sitting 161.00 mm[Hg] - Sitting 56.00/ min 47527 110 90347 1 94.00 % 18.00/min 79260 110 93496 6 18.00/mi n 76310 111 51237 9 74.00 mm[Hg] - Sitting 161.00 mm[Hg] - Sitting 97.80 Tympanic 92.00 % 56.00/ min 16.00/min 84106 111 22732 5 94.00 % 18.00/min 04114 111 01065 5 94.00 % 18.00/min 28676 111 82311 4 95.00 % 18.00/min 92912 111 13610 3 18.00/mi n 75901 112 77105 0 58.00 mm[Hg] - Sitting 138.00 mm[Hg] - Sitting 98.20 Tympanic 92.00 % 55.00/ min 16.00/min 03889 112 45825 7 95.00 % 20.00/min 29822 112 42219 7 95.00 % 20.00/min 77956 112 75512 5 95.00 % 18.00/min 09401 112 10453 0 18.00/mi n 45113 113 36563 0 50.00 mm[Hg] - Sitting 110.00 mm[Hg] - Sitting 97.70 Forehead Scan 94.00 % 54.00/ min 20.00/min 01906 113 87633 1 95.00 % 18.00/min 67056 113 62076 2 96.00 % 18.00/min 55743 113 05782 0 95.00 % 15.00/min 54465 113 03139 4 95.00 % 18.00/min 03138 114 65549 7 96.00 % 18.00/min 29043 114 49866 8 94.00 % 18.00/min Immunizations Vaccine Date Status Other 06/20/2024 Completed
--- OUTSIDE RECORDS SUMMARY | 2024-07-19 23:07 | External Medical Summary | Continuity Of Care Document ---
Author Name Unknown Address [address] [address] Organization [facility] () Care Team Providers Care Construction Crew Member Name Role Phone DO Lopez Amy Primary Care Provider [phone] Allergies Allergy Reaction Start Date End Date [...] 3 0.1 mL 06/23 Inactiv e 2024 19685 77036 0 At bedtime Intrad ermal False Tubersol 5 tub. unit/0.1 mL intradermal injection solution [Tuberculin PPD] 0.1mL Intradermal Once daily For PPD 2nd Step Give 2nd Step PPD Day 1 and Read results Day 3 (schedule 7 days after 1st READ) 0.1mL 07/03 Active 2024 08815 29107 0 Once daily Intrad ermal False Tylenol 325 mg tablet 2 tabs By Mouth Every 4 hours as needed For Pain DO NOT EXCEED 3000 MG APAP/24 Hours 2 tabs 2024 Active 2024 64643 95624 0 Every 4 hours as needed By Mouth False Dulcolax (bisacodyl) 10 mg rectal suppository One Suppository per rectum PRN if Milk of Magnisia ineffective. Give on day 5 of no BM 1 sup 2024 Active 2024 76616 55835 1 Daily as needed Rectal False Fleet Enema 19 gram-7 gram/118 mL Administer per rectum PRN one time if dulcolax suppository not effective. Give on day 6 of no BM 1 2024 Active 2024 58745 08997 6 Daily as needed Rectal False Tylenol 325 mg tablet 2 tabs By Mouth Every 4 hours as needed For Fever >100 DO NOT EXCEED 3000 MG APAP/24 Hours 2 tabs 2024 Active 2024 42425 43852 0 Every 4 hours as needed By Mouth False Eliquis 5 mg tablet 5 mg By Mouth Twice daily For afib 5 mg 2024 Active 2024 87465 16653 1 Twice daily By Mouth False Ferrous sulfate 325 mg (65 mg iron) tablet [generic] 325 mg By Mouth Once daily For supplement 325 mg 2024 Active 2024 77886 62648 5 Once daily By Mouth False Magnesium oxide 400 mg (241.3 mg magnesium) tablet [generic] 400 mg By Mouth Once daily For supplement 400 mg 2024 Active 2024 66528 69957 2 Once daily By Mouth False Protonix 40 mg tablet,bozena yed release 40 mg By Mouth Once daily For GERD 40 mg 2024 Active 2024 79098 06956 1 Once daily By Mouth False Sotalol 120 mg tablet [generic] 120 mg By Mouth Twice daily For SVT 120 mg 2024 Active 2024 42892 16941 1 Twice daily By Mouth False Rosuvastati n 20 mg tablet [generic] 20 mg By Mouth Once daily For HLD 20 mg 2024 Active 2024 34967 51122 0 Once daily By Mouth False Arformotero l 15 mcg/2 mL solution for nebulizatio n [generic] 15 mcg Inhalation Twice daily For copd/asthma/ interstitial lung disease 15 mcg 06/20 Inactiv e 2024 99688 94817 0 Twice daily Inhala tion False Budesonide 0.5 mg/2 mL suspension for nebulizatio n [generic] 0.5 mg Inhalation Twice daily For copd/ asthma/ interstital lung disease 0.5 mg 2024 Active 2024 03705 44633 8 Twice daily Inhala tion False Furosemide 40 mg tablet [generic] 40 mg By Mouth Once daily For chronic diastolic CHF 40 mg 2024 Active 2024 03039 87262 0 Once daily By Mouth False Furosemide 40 mg tablet [generic] 40 mg By Mouth Once daily For chronic diastolic CHF 40 mg 2024 Active 2024 60301 75833 0 Once daily By Mouth False Ventolin HFA 90 mcg/actuati on aerosol inhaler 2 puff Inhalation Every 6 hours as needed For SOB/ wheeze 2 puff 2024 Active 2024 91143 54948 0 Every 6 hours as needed Inhala tion False Amitriptyli ne 25 mg tablet [generic] 25 mg By Mouth At bedtime For general anxiety disorder 25 mg 06/26 Inactiv e 2024 05150 08926 1 At bedtime By Mouth False Levothyroxi ne 125 mcg tablet [generic] 125 mcg By Mouth Once daily For hypothyroidis m 125 mcg 2024 Active 2024 37499 42370 0 Once daily By Mouth False Arformotero l 15 mcg/2 mL solution for nebulizatio n [generic] 06/20 Inactiv e 2024 10449 28757 0 Arformotero l 15 mcg/2 mL solution for nebulizatio n [generic] 15 mcg Inhalation Twice daily For copd/asthma/ interstitial lung disease 15 mcg 2024 Active 2024 63085 96169 0 Twice daily Inhala tion False Clonazepam 0.5 mg tablet [generic] 0.5mg By Mouth As Needed q12 hour PRN For anxiety 0.5mg 06/28 Inactiv e 2024 40113 66439 0 By Mouth False Colace 100 mg capsule 100 mg By Mouth Twice daily For Constipation 100 mg 2024 Active 2024 81792 47986 1 Twice daily By Mouth False Boost 0.04 gram-1 kcal/mL oral liquid 1 carton By Mouth 3 times a day For malnutrition 1 carton 06/27 Inactiv e 2024 11907 49121 9 3 times a day By Mouth False Amitriptyli ne 10 mg tablet [generic] 10mg By Mouth At bedtime along with 25 mg dose to equal 35mg For anxiety 10mg 2024 Active 2024 87544 79612 1 At bedtime By Mouth False Amitriptyli ne 25 mg tablet [generic] 06/26 Inactiv e 2024 74464 58989 1 Amitriptyli ne 25 mg tablet [generic] 25 mg By Mouth At bedtime Along with 10mg to equal 35mg. for anxiety 25 mg 2024 Active 2024 14382 26169 1 At bedtime By Mouth False Boost Breeze Nutritional 0.04 gram-1.05 kcal/mL oral liquid 237 ml By Mouth Twice daily Boost Breeze 237 ml oral liquids For Early satiety, low average meal intake - please record number of mL consumed 237 ml 2024 Active 2024 61240 80744 1 Twice daily By Mouth False Prosource [...] PRN For anxiety 0.5mg 2024 Active 2024 66432 82978 0 By Mouth False Betadine Swabsticks 10 % 1 scott Topical Twice daily to bilateral heels For stage 2 pressure injury 1 scott 2024 Active 2024 19119 04253 1 Twice daily Topica l False Problems [...] 06/20/2024 Active I48.0 Paroxysmal atrial fibrillation 06/20/2024 00/00 /0000 Active VITAL SIGNS Date Time Diastolic blood pressure Systolic blood pressure Body height Body weight Temperature SpO2 Blood Sugar Pulse Respirations 17460 102 98758 9 83.00 mm[Hg] - Lying Down 170.00 mm[Hg] - Lying Down 98.20 Forehead Scan 98.00 % 86.00/ min 18.00/min 87095 102 15297 4 83.00 mm[Hg] - Sitting 170.00 mm[Hg] - Sitting 98.20 Tympanic 86.00/ min 18.00/min 69824 103 31001 5 98.20 Tympanic 00050 103 14230 3 80.00 mm[Hg] - Lying Down 164.00 mm[Hg] - Lying Down 91.00/ min 20.00/min 75472 103 11850 0 80.00 mm[Hg] - Sitting 164.00 mm[Hg] - Sitting 98.20 Tympanic 91.00/ min 18.00/min 08517 103 35132 7 91.00 % 20.00/min 69788 103 47328 3 94.00 % 18.00/min 80683 103 05233 9 13168 104 86421 6 80.00 mm[Hg] - Sitting 140.00 mm[Hg] - Sitting 98.10 Tympanic 94.00 % 64.00/ min 18.00/min 43873 104 24062 1 80.00 mm[Hg] - Sitting 140.00 mm[Hg] - Sitting 98.10 Tympanic 64.00/ min 18.00/min 32837 104 93198 0 80.00 mm[Hg] - Sitting 140.00 mm[Hg] - Sitting 98.10 Tympanic 64.00/ min 18.00/min 29690 104 77504 7 73.00 mm[Hg] - Sitting 136.00 mm[Hg] - Sitting 97.90 Forehead Scan 95.00 % 74.00/ min 16.00/min 90697 104 30937 8 73.00 mm[Hg] - Sitting 135.00 mm[Hg] - Sitting 98.20 Tympanic 74.00/ min 18.00/min 89743 104 05509 6 95.00 % 18.00/min 85510 104 34381 6 96.00 % 18.00/min 94391 104 03473 4 94.00 % 18.00/min 39288 104 57869 0 18.00/mi n 27488 105 64358 0 73.00 mm[Hg] - Sitting 135.00 mm[Hg] - Sitting 98.20 Tympanic 74.00/ min 18.00/min 95282 105 25844 6 73.00 mm[Hg] - Sitting 135.00 mm[Hg] - Sitting 98.20 Tympanic 74.00/ min 20.00/min 89639 105 05755 3 53.00 mm[Hg] - Sitting 126.00 mm[Hg] - Sitting 97.00 Tympanic 99.00 % 56.00/ min 20.00/min 92254 105 60101 6 93.00 % 20.00/min 42463 105 46428 8 94.00 % 20.00/min 93882 105 76714 3 97.00 % 18.00/min 51954 105 89079 9 96.00 % 18.00/min 44586 106 64613 0 67.00 mm[Hg] - Sitting 150.00 mm[Hg] - Sitting 98.80 Forehead Scan 97.00 % 58.00/ min 16.00/min 87661 107 65362 3 136.00 NI 88880 107 73658 0 59 NI 18380 107 47561 0 61.00 mm[Hg] - Sitting 144.00 mm[Hg] - Sitting 97.90 Tympanic 93.00 % 54.00/ min 16.00/min 18858 107 92051 1 95.00 % 18.00/min 00653 107 90618 0 18.00/mi n 87581 107 25409 6 63.00 mm[Hg] - Sitting 159.00 mm[Hg] - Sitting 60.00/ min 30956 107 02448 6 94.00 % 18.00/min 88080 107 39861 3 95.00 % 18.00/min 40624 108 85507 0 55.00 mm[Hg] - Sitting 127.00 mm[Hg] - Sitting 97.80 Tympanic 95.00 % 55.00/ min 16.00/min 03737 108 43918 8 96.00 % 38003 108 75456 4 95.00 % 20.00/min 48682 108 80333 0 96.00 % 20.00/min 91284 108 25908 2 96.00 % 20.00/min 63990 109 96404 0 63.00 mm[Hg] - Sitting 131.00 mm[Hg] - Sitting 98.70 Tympanic 96.00 % 54.00/ min 18.00/min 23813 109 82684 8 94.00 % 18.00/min 31036 109 58600 2 18.00/mi n 53586 109 03600 5 97.00 % 18.00/min 11668 109 73827 2 96.00 % 18.00/min 40605 110 16047 0 55.00 mm[Hg] - Lying Down 137.00 mm[Hg] - Lying Down 97.00 Tympanic 93.00 % 63.00/ min 20.00/min 27715 110 32480 6 94.00 % 18.00/min 53360 110 31154 8 94.00 % 18.00/min 48229 110 47507 1 94.00 % 18.00/min 94779 110 57360 6 18.00/mi n Immunizations Vaccine Date Status Other 06/20/2024 Completed
--- OUTSIDE RECORDS SUMMARY | 2024-07-19 23:07 | External Medical Summary | Continuity Of Care Document ---
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 unit/0.1 mL intradermal injection solution [Tuberculin PPD] 0.1mL Intradermal Once daily For PPD 2nd Step Give 2nd Step PPD Day 1 and Read results Day 3 (schedule 7 days after 1st READ) 0.1mL 07/03 Active 2024 28315 25499 0 Once daily Intrad ermal False Tylenol 325 mg tablet 2 tabs By Mouth Every 4 hours as needed For Pain DO NOT EXCEED 3000 MG APAP/24 Hours 2 tabs 2024 Active 2024 85001 93191 0 Every 4 hours as needed By Mouth False Dulcolax (bisacodyl) 10 mg rectal suppository One Suppository per rectum PRN if Milk of Magnisia ineffective. Give on day 5 of no BM 1 sup 2024 Active 2024 39178 12343 1 Daily as needed Rectal False Fleet Enema 19 gram-7 gram/118 mL Administer per rectum PRN one time if dulcolax suppository not effective. Give on day 6 of no BM 1 2024 Active 2024 64268 14833 6 Daily as needed Rectal False Tylenol 325 mg tablet 2 tabs By Mouth Every 4 hours as needed For Fever >100 DO NOT EXCEED 3000 MG APAP/24 Hours 2 tabs 2024 Active 2024 32737 94264 0 Every 4 hours as needed By Mouth False Eliquis 5 mg tablet 5 mg By Mouth Twice daily For afib 5 mg 2024 Active 2024 65920 64292 1 Twice daily By Mouth False Ferrous sulfate 325 mg (65 mg iron) tablet [generic] 325 mg By Mouth Once daily For supplement 325 mg 2024 Active 2024 58845 28703 5 Once daily By Mouth False Magnesium oxide 400 mg (241.3 mg magnesium) tablet [generic] 400 mg By Mouth Once daily For supplement 400 mg 2024 Active 2024 18640 38311 2 Once daily By Mouth False Protonix 40 mg tablet,bozena yed release 40 mg By Mouth Once daily For GERD 40 mg 2024 Active 2024 95453 79458 1 Once daily By Mouth False Sotalol 120 mg tablet [generic] 120 mg By Mouth Twice daily For SVT 120 mg 2024 Active 2024 38895 97604 1 Twice daily By Mouth False Rosuvastati n 20 mg tablet [generic] 20 mg By Mouth Once daily For HLD 20 mg 2024 Active 2024 72964 81936 0 Once daily By Mouth False Arformotero l 15 mcg/2 mL solution for nebulizatio n [generic] 15 mcg Inhalation Twice daily For copd/asthma/ interstitial lung disease 15 mcg 06/20 Inactiv e 2024 35859 68453 0 Twice daily Inhala tion False Budesonide 0.5 mg/2 mL suspension for nebulizatio n [generic] 0.5 mg Inhalation Twice daily For copd/ asthma/ interstital lung disease 0.5 mg 2024 Active 2024 01585 40960 8 Twice daily Inhala tion False Furosemide 40 mg tablet [generic] 40 mg By Mouth Once daily For chronic diastolic CHF 40 mg 2024 Active 2024 36142 52294 0 Once daily By Mouth False Furosemide 40 mg tablet [generic] 40 mg By Mouth Once daily For chronic diastolic CHF 40 mg 2024 Active 2024 61987 52541 0 Once daily By Mouth False Ventolin HFA 90 mcg/actuati on aerosol inhaler 2 puff Inhalation Every 6 hours as needed For SOB/ wheeze 2 puff 2024 Active 2024 65326 77748 0 Every 6 hours as needed Inhala tion False Amitriptyli ne 25 mg tablet [generic] 25 mg By Mouth At bedtime For general anxiety disorder 25 mg 06/26 Inactiv e 2024 49376 68615 1 At bedtime By Mouth False Levothyroxi ne 125 mcg tablet [generic] 125 mcg By Mouth Once daily For hypothyroidis m 125 mcg 2024 Active 2024 90740 80630 0 Once daily By Mouth False Arformotero l 15 mcg/2 mL solution for nebulizatio n [generic] 06/20 Inactiv e 2024 53942 74293 0 Arformotero l 15 mcg/2 mL solution for nebulizatio n [generic] 15 mcg Inhalation Twice daily For copd/asthma/ interstitial lung disease 15 mcg 2024 Active 2024 67375 09215 0 Twice daily Inhala tion False Clonazepam 0.5 mg tablet [generic] 0.5mg By Mouth As Needed q12 hour PRN For anxiety 0.5mg 06/28 Inactiv e 2024 35715 63936 0 By Mouth False Colace 100 mg capsule 100 mg By Mouth Twice daily For Constipation 100 mg 2024 Active 2024 50736 63499 1 Twice daily By Mouth False Boost 0.04 gram-1 kcal/mL oral liquid 1 carton By Mouth 3 times a day For malnutrition 1 carton 06/27 Inactiv e 2024 87183 12098 9 3 times a day By Mouth False Amitriptyli ne 10 mg tablet [generic] 10mg By Mouth At bedtime along with 25 mg dose to equal 35mg For anxiety 10mg 2024 Active 2024 85231 63206 1 At bedtime By Mouth False Amitriptyli ne 25 mg tablet [generic] 06/26 Inactiv e 2024 46069 41311 1 Amitriptyli ne 25 mg tablet [generic] 25 mg By Mouth At bedtime Along with 10mg to equal 35mg. for anxiety 25 mg 2024 Active 2024 05852 49654 1 At bedtime By Mouth False Boost Breeze Nutritional 0.04 gram-1.05 kcal/mL oral liquid 237 ml By Mouth Twice daily Boost Breeze 237 ml oral liquids For Early satiety, low average meal intake - please record number of mL consumed 237 ml 2024 Active 2024 00889 42226 1 Twice daily By Mouth False Prosource [...] PRN For anxiety 0.5mg 2024 Active 2024 53350 80967 0 By Mouth False Betadine Swabsticks 10 % 1 scott Topical Twice daily to bilateral heels For stage 2 pressure injury 1 scott 2024 Active 2024 57267 22805 1 Twice daily Topica l False Problems [...] weight Temperature SpO2 Blood Sugar Pulse Respirations 50591 102 58789 9 83.00 mm[Hg] - Lying Down 170.00 mm[Hg] - Lying Down 98.20 Forehead Scan 98.00 % 86.00/ min 18.00/min 19976 102 58661 4 83.00 mm[Hg] - Sitting 170.00 mm[Hg] - Sitting 98.20 Tympanic 86.00/ min 18.00/min 02388 103 15942 5 98.20 Tympanic 96131 103 70227 3 80.00 mm[Hg] - Lying Down 164.00 mm[Hg] - Lying Down 91.00/ min 20.00/min 91425 103 60282 0 80.00 mm[Hg] - Sitting 164.00 mm[Hg] - Sitting 98.20 Tympanic 91.00/ min 18.00/min 69380 103 02168 7 91.00 % 20.00/min 87769 103 86177 3 94.00 % 18.00/min 78175 103 09809 9 32384 104 05716 6 80.00 mm[Hg] - Sitting 140.00 mm[Hg] - Sitting 98.10 Tympanic 94.00 % 64.00/ min 18.00/min 51942 104 15333 1 80.00 mm[Hg] - Sitting 140.00 mm[Hg] - Sitting 98.10 Tympanic 64.00/ min 18.00/min 94178 104 14966 0 80.00 mm[Hg] - Sitting 140.00 mm[Hg] - Sitting 98.10 Tympanic 64.00/ min 18.00/min 51522 104 88532 7 73.00 mm[Hg] - Sitting 136.00 mm[Hg] - Sitting 97.90 Forehead Scan 95.00 % 74.00/ min 16.00/min 78768 104 26487 8 73.00 mm[Hg] - Sitting 135.00 mm[Hg] - Sitting 98.20 Tympanic 74.00/ min 18.00/min 57927 104 10743 6 95.00 % 18.00/min 20655 104 95150 6 96.00 % 18.00/min 34286 104 25722 4 94.00 % 18.00/min 78159 104 97260 0 18.00/mi n 14932 105 85664 0 73.00 mm[Hg] - Sitting 135.00 mm[Hg] - Sitting 98.20 Tympanic 74.00/ min 18.00/min 47967 105 54855 6 73.00 mm[Hg] - Sitting 135.00 mm[Hg] - Sitting 98.20 Tympanic 74.00/ min 20.00/min 84905 105 06422 3 53.00 mm[Hg] - Sitting 126.00 mm[Hg] - Sitting 97.00 Tympanic 99.00 % 56.00/ min 20.00/min 40210 105 84476 6 93.00 % 20.00/min 08743 105 74939 8 94.00 % 20.00/min 40530 105 14758 3 97.00 % 18.00/min 88810 105 23697 9 96.00 % 18.00/min 53532 106 48317 0 67.00 mm[Hg] - Sitting 150.00 mm[Hg] - Sitting 98.80 Forehead Scan 97.00 % 58.00/ min 16.00/min 49846 107 17745 3 136.00 NI 27881 107 39838 0 59 NI 38199 107 07705 0 61.00 mm[Hg] - Sitting 144.00 mm[Hg] - Sitting 97.90 Tympanic 93.00 % 54.00/ min 16.00/min 72587 107 93876 1 95.00 % 18.00/min 12909 107 09254 0 18.00/mi n 80685 107 51039 6 63.00 mm[Hg] - Sitting 159.00 mm[Hg] - Sitting 60.00/ min 86131 107 37710 6 94.00 % 18.00/min 82304 107 57564 3 95.00 % 18.00/min 74844 108 97417 0 55.00 mm[Hg] - Sitting 127.00 mm[Hg] - Sitting 97.80 Tympanic 95.00 % 55.00/ min 16.00/min 03554 108 84671 8 96.00 % 71207 108 63330 4 95.00 % 20.00/min 52823 108 03458 0 96.00 % 20.00/min 88573 108 14978 2 96.00 % 20.00/min 52644 109 50175 0 63.00 mm[Hg] - Sitting 131.00 mm[Hg] - Sitting 98.70 Tympanic 96.00 % 54.00/ min 18.00/min 07273 109 71319 8 94.00 % 18.00/min 76075 109 07502 2 18.00/mi n 41419 109 96681 5 97.00 % 18.00/min 22182 109 83520 2 96.00 % 18.00/min 41338 110 61399 0 55.00 mm[Hg] - Lying Down 137.00 mm[Hg] - Lying Down 97.00 Tympanic 93.00 % 63.00/ min 20.00/min 15506 110 81210 6 94.00 % 18.00/min 20359 110 14023 8 94.00 % 18.00/min 60964 110 35165 0 74.00 mm[Hg] - Sitting 161.00 mm[Hg] - Sitting 56.00/ min 34147 110 32880 1 94.00 % 18.00/min 15095 110 36725 6 18.00/mi n 39335 111 54713 9 74.00 mm[Hg] - Sitting 161.00 mm[Hg] - Sitting 97.80 Tympanic 92.00 % 56.00/ min 16.00/min 08569 111 85261 5 94.00 % 18.00/min 11168 111 28276 5 94.00 % 18.00/min 60292 111 78060 4 95.00 % 18.00/min 24773 111 34667 3 18.00/mi n 16679 112 92545 0 58.00 mm[Hg] - Sitting 138.00 mm[Hg] - Sitting 98.20 Tympanic 92.00 % 55.00/ min 16.00/min 47348 112 33120 7 95.00 % 20.00/min 46659 112 44064 7 95.00 % 20.00/min 28307 112 81651 5 95.00 % 18.00/min 77318 112 27394 0 18.00/mi n 43070 113 44003 1 95.00 % 18.00/min 91776 113 83046 2 96.00 % 18.00/min Immunizations Vaccine Date Status Other 06/20/2024 Completed
--- OUTSIDE RECORDS SUMMARY | 2024-07-19 23:07 | External Medical Summary | Continuity Of Care Document ---
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 unit/0.1 mL intradermal injection solution [Tuberculin PPD] 0.1mL Intradermal Once daily For PPD 2nd Step Give 2nd Step PPD Day 1 and Read results Day 3 (schedule 7 days after 1st READ) 0.1mL 07/03 Active 2024 74777 66208 0 Once daily Intrad ermal False Tylenol 325 mg tablet 2 tabs By Mouth Every 4 hours as needed For Pain DO NOT EXCEED 3000 MG APAP/24 Hours 2 tabs 2024 Active 2024 87176 60426 0 Every 4 hours as needed By Mouth False Dulcolax (bisacodyl) 10 mg rectal suppository One Suppository per rectum PRN if Milk of Magnisia ineffective. Give on day 5 of no BM 1 sup 2024 Active 2024 06516 66753 1 Daily as needed Rectal False Fleet Enema 19 gram-7 gram/118 mL Administer per rectum PRN one time if dulcolax suppository not effective. Give on day 6 of no BM 1 2024 Active 2024 35446 84861 6 Daily as needed Rectal False Tylenol 325 mg tablet 2 tabs By Mouth Every 4 hours as needed For Fever >100 DO NOT EXCEED 3000 MG APAP/24 Hours 2 tabs 2024 Active 2024 06926 53715 0 Every 4 hours as needed By Mouth False Eliquis 5 mg tablet 5 mg By Mouth Twice daily For afib 5 mg 2024 Active 2024 12945 68575 1 Twice daily By Mouth False Ferrous sulfate 325 mg (65 mg iron) tablet [generic] 325 mg By Mouth Once daily For supplement 325 mg 2024 Active 2024 63734 01871 5 Once daily By Mouth False Magnesium oxide 400 mg (241.3 mg magnesium) tablet [generic] 400 mg By Mouth Once daily For supplement 400 mg 2024 Active 2024 34044 10405 2 Once daily By Mouth False Protonix 40 mg tablet,bozena yed release 40 mg By Mouth Once daily For GERD 40 mg 2024 Active 2024 96368 89246 1 Once daily By Mouth False Sotalol 120 mg tablet [generic] 120 mg By Mouth Twice daily For SVT 120 mg 2024 Active 2024 99783 97003 1 Twice daily By Mouth False Rosuvastati n 20 mg tablet [generic] 20 mg By Mouth Once daily For HLD 20 mg 2024 Active 2024 85306 90697 0 Once daily By Mouth False Arformotero l 15 mcg/2 mL solution for nebulizatio n [generic] 15 mcg Inhalation Twice daily For copd/asthma/ interstitial lung disease 15 mcg 06/20 Inactiv e 2024 51407 18735 0 Twice daily Inhala tion False Budesonide 0.5 mg/2 mL suspension for nebulizatio n [generic] 0.5 mg Inhalation Twice daily For copd/ asthma/ interstital lung disease 0.5 mg 2024 Active 2024 62731 94211 8 Twice daily Inhala tion False Furosemide 40 mg tablet [generic] 40 mg By Mouth Once daily For chronic diastolic CHF 40 mg 2024 Active 2024 19323 48615 0 Once daily By Mouth False Furosemide 40 mg tablet [generic] 40 mg By Mouth Once daily For chronic diastolic CHF 40 mg 2024 Active 2024 37639 86161 0 Once daily By Mouth False Ventolin HFA 90 mcg/actuati on aerosol inhaler 2 puff Inhalation Every 6 hours as needed For SOB/ wheeze 2 puff 2024 Active 2024 14054 97938 0 Every 6 hours as needed Inhala tion False Amitriptyli ne 25 mg tablet [generic] 25 mg By Mouth At bedtime For general anxiety disorder 25 mg 06/26 Inactiv e 2024 16161 56889 1 At bedtime By Mouth False Levothyroxi ne 125 mcg tablet [generic] 125 mcg By Mouth Once daily For hypothyroidis m 125 mcg 2024 Active 2024 66087 45705 0 Once daily By Mouth False Arformotero l 15 mcg/2 mL solution for nebulizatio n [generic] 06/20 Inactiv e 2024 42048 45036 0 Arformotero l 15 mcg/2 mL solution for nebulizatio n [generic] 15 mcg Inhalation Twice daily For copd/asthma/ interstitial lung disease 15 mcg 2024 Active 2024 24280 65181 0 Twice daily Inhala tion False Clonazepam 0.5 mg tablet [generic] 0.5mg By Mouth As Needed q12 hour PRN For anxiety 0.5mg 06/28 Inactiv e 2024 88921 98714 0 By Mouth False Colace 100 mg capsule 100 mg By Mouth Twice daily For Constipation 100 mg 2024 Active 2024 02136 80674 1 Twice daily By Mouth False Boost 0.04 gram-1 kcal/mL oral liquid 1 carton By Mouth 3 times a day For malnutrition 1 carton 06/27 Inactiv e 2024 43803 26521 9 3 times a day By Mouth False Amitriptyli ne 10 mg tablet [generic] 10mg By Mouth At bedtime along with 25 mg dose to equal 35mg For anxiety 10mg 2024 Active 2024 46849 52338 1 At bedtime By Mouth False Amitriptyli ne 25 mg tablet [generic] 06/26 Inactiv e 2024 79533 53145 1 Amitriptyli ne 25 mg tablet [generic] 25 mg By Mouth At bedtime Along with 10mg to equal 35mg. for anxiety 25 mg 2024 Active 2024 47282 83127 1 At bedtime By Mouth False Boost Breeze Nutritional 0.04 gram-1.05 kcal/mL oral liquid 237 ml By Mouth Twice daily Boost Breeze 237 ml oral liquids For Early satiety, low average meal intake - please record number of mL consumed 237 ml 2024 Active 2024 56865 47801 1 Twice daily By Mouth False Prosource [...] PRN For anxiety 0.5mg 2024 Active 2024 20101 54048 0 By Mouth False Betadine Swabsticks 10 % 1 scott Topical Twice daily to bilateral heels For stage 2 pressure injury 1 scott 2024 Active 2024 08178 12310 1 Twice daily Topica l False Problems [...] weight Temperature SpO2 Blood Sugar Pulse Respirations 86197 102 44034 9 83.00 mm[Hg] - Lying Down 170.00 mm[Hg] - Lying Down 98.20 Forehead Scan 98.00 % 86.00/ min 18.00/min 13862 102 40592 4 83.00 mm[Hg] - Sitting 170.00 mm[Hg] - Sitting 98.20 Tympanic 86.00/ min 18.00/min 08672 103 28422 5 98.20 Tympanic 94745 103 56300 3 80.00 mm[Hg] - Lying Down 164.00 mm[Hg] - Lying Down 91.00/ min 20.00/min 56034 103 26967 0 80.00 mm[Hg] - Sitting 164.00 mm[Hg] - Sitting 98.20 Tympanic 91.00/ min 18.00/min 77453 103 92560 7 91.00 % 20.00/min 65428 103 65335 3 94.00 % 18.00/min 65247 103 01418 9 36990 104 88996 6 80.00 mm[Hg] - Sitting 140.00 mm[Hg] - Sitting 98.10 Tympanic 94.00 % 64.00/ min 18.00/min 04104 104 64324 1 80.00 mm[Hg] - Sitting 140.00 mm[Hg] - Sitting 98.10 Tympanic 64.00/ min 18.00/min 81249 104 37137 0 80.00 mm[Hg] - Sitting 140.00 mm[Hg] - Sitting 98.10 Tympanic 64.00/ min 18.00/min 19674 104 01163 7 73.00 mm[Hg] - Sitting 136.00 mm[Hg] - Sitting 97.90 Forehead Scan 95.00 % 74.00/ min 16.00/min 99064 104 64801 8 73.00 mm[Hg] - Sitting 135.00 mm[Hg] - Sitting 98.20 Tympanic 74.00/ min 18.00/min 67028 104 77649 6 95.00 % 18.00/min 28137 104 83662 6 96.00 % 18.00/min 31333 104 34397 4 94.00 % 18.00/min 91872 104 39073 0 18.00/mi n 85383 105 21186 0 73.00 mm[Hg] - Sitting 135.00 mm[Hg] - Sitting 98.20 Tympanic 74.00/ min 18.00/min 79852 105 29196 6 73.00 mm[Hg] - Sitting 135.00 mm[Hg] - Sitting 98.20 Tympanic 74.00/ min 20.00/min 64769 105 47537 3 53.00 mm[Hg] - Sitting 126.00 mm[Hg] - Sitting 97.00 Tympanic 99.00 % 56.00/ min 20.00/min 81912 105 64488 6 93.00 % 20.00/min 51670 105 93543 8 94.00 % 20.00/min 23568 105 59876 3 97.00 % 18.00/min 83856 105 67658 9 96.00 % 18.00/min 85564 106 72906 0 67.00 mm[Hg] - Sitting 150.00 mm[Hg] - Sitting 98.80 Forehead Scan 97.00 % 58.00/ min 16.00/min 75971 107 86888 3 136.00 NI 46479 107 70696 0 59 NI 53143 107 94328 0 61.00 mm[Hg] - Sitting 144.00 mm[Hg] - Sitting 97.90 Tympanic 93.00 % 54.00/ min 16.00/min 40539 107 36235 1 95.00 % 18.00/min 25852 107 65376 0 18.00/mi n 90508 107 06878 6 63.00 mm[Hg] - Sitting 159.00 mm[Hg] - Sitting 60.00/ min 70992 107 22400 6 94.00 % 18.00/min 49065 107 28181 3 95.00 % 18.00/min 68734 108 98346 0 55.00 mm[Hg] - Sitting 127.00 mm[Hg] - Sitting 97.80 Tympanic 95.00 % 55.00/ min 16.00/min 50988 108 29310 8 96.00 % 23400 108 62052 4 95.00 % 20.00/min 74758 108 95829 0 96.00 % 20.00/min 96066 108 72708 2 96.00 % 20.00/min 36684 109 17165 0 63.00 mm[Hg] - Sitting 131.00 mm[Hg] - Sitting 98.70 Tympanic 96.00 % 54.00/ min 18.00/min 73014 109 38081 8 94.00 % 18.00/min 43675 109 64926 2 18.00/mi n 87338 109 20679 5 97.00 % 18.00/min 08287 109 2 96.00 % 18.00/min 58137 110 40665 0 55.00 mm[Hg] - Lying Down 137.00 mm[Hg] - Lying Down 97.00 Tympanic 93.00 % 63.00/ min 20.00/min 22871 110 16608 6 94.00 % 18.00/min 84935 110 09601 8 94.00 % 18.00/min 47376 110 00778 0 74.00 mm[Hg] - Sitting 161.00 mm[Hg] - Sitting 56.00/ min 11258 110 43624 1 94.00 % 18.00/min 12873 110 65063 6 18.00/mi n 55913 111 62078 9 74.00 mm[Hg] - Sitting 161.00 mm[Hg] - Sitting 97.80 Tympanic 92.00 % 56.00/ min 16.00/min 81946 111 03534 5 94.00 % 18.00/min 31963 111 20625 5 94.00 % 18.00/min 78301 111 32934 4 95.00 % 18.00/min 85697 111 68866 3 18.00/mi n 72680 112 68756 0 58.00 mm[Hg] - Sitting 138.00 mm[Hg] - Sitting 98.20 Tympanic 92.00 % 55.00/ min 16.00/min 70407 112 15985 7 95.00 % 20.00/min 67914 112 68841 7 95.00 % 20.00/min 13050 112 02837 5 95.00 % 18.00/min 52321 112 79606 0 18.00/mi n 94124 113 39986 0 50.00 mm[Hg] - Sitting 110.00 mm[Hg] - Sitting 97.70 Forehead Scan 94.00 % 54.00/ min 20.00/min 39824 113 88867 1 95.00 % 18.00/min 64071 113 06039 2 96.00 % 18.00/min 18457 113 54621 0 95.00 % 15.00/min 09589 113 30037 4 95.00 % 18.00/min 89941 114 13600 7 96.00 % 18.00/min 58690 114 34159 8 94.00 % 18.00/min Immunizations Vaccine Date Status Other 06/20/2024 Completed
--- OUTSIDE RECORDS SUMMARY | 2024-07-19 23:07 | External Medical Summary | Continuity Of Care Document ---
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 unit/0.1 mL intradermal injection solution [Tuberculin PPD] 0.1mL Intradermal Once daily For PPD 2nd Step Give 2nd Step PPD Day 1 and Read results Day 3 (schedule 7 days after 1st READ) 0.1mL 07/03 Active 2024 64981 30239 0 Once daily Intrad ermal False Tylenol 325 mg tablet 2 tabs By Mouth Every 4 hours as needed For Pain DO NOT EXCEED 3000 MG APAP/24 Hours 2 tabs 2024 Active 2024 76134 24158 0 Every 4 hours as needed By Mouth False Dulcolax (bisacodyl) 10 mg rectal suppository One Suppository per rectum PRN if Milk of Magnisia ineffective. Give on day 5 of no BM 1 sup 2024 Active 2024 72184 74558 1 Daily as needed Rectal False Fleet Enema 19 gram-7 gram/118 mL Administer per rectum PRN one time if dulcolax suppository not effective. Give on day 6 of no BM 1 2024 Active 2024 25493 82791 6 Daily as needed Rectal False Tylenol 325 mg tablet 2 tabs By Mouth Every 4 hours as needed For Fever >100 DO NOT EXCEED 3000 MG APAP/24 Hours 2 tabs 2024 Active 2024 74122 75890 0 Every 4 hours as needed By Mouth False Eliquis 5 mg tablet 5 mg By Mouth Twice daily For afib 5 mg 2024 Active 2024 15616 41831 1 Twice daily By Mouth False Ferrous sulfate 325 mg (65 mg iron) tablet [generic] 325 mg By Mouth Once daily For supplement 325 mg 2024 Active 2024 84288 27398 5 Once daily By Mouth False Magnesium oxide 400 mg (241.3 mg magnesium) tablet [generic] 400 mg By Mouth Once daily For supplement 400 mg 2024 Active 2024 45352 10594 2 Once daily By Mouth False Protonix 40 mg tablet,boezna yed release 40 mg By Mouth Once daily For GERD 40 mg 2024 Active 2024 81920 49073 1 Once daily By Mouth False Sotalol 120 mg tablet [generic] 120 mg By Mouth Twice daily For SVT 120 mg 2024 Active 2024 66186 21946 1 Twice daily By Mouth False Rosuvastati n 20 mg tablet [generic] 20 mg By Mouth Once daily For HLD 20 mg 2024 Active 2024 97887 85220 0 Once daily By Mouth False Arformotero l 15 mcg/2 mL solution for nebulizatio n [generic] 15 mcg Inhalation Twice daily For copd/asthma/ interstitial lung disease 15 mcg 06/20 Inactiv e 2024 82513 65585 0 Twice daily Inhala tion False Budesonide 0.5 mg/2 mL suspension for nebulizatio n [generic] 0.5 mg Inhalation Twice daily For copd/ asthma/ interstital lung disease 0.5 mg 2024 Active 2024 64734 37073 8 Twice daily Inhala tion False Furosemide 40 mg tablet [generic] 40 mg By Mouth Once daily For chronic diastolic CHF 40 mg 2024 Active 2024 73472 88486 0 Once daily By Mouth False Furosemide 40 mg tablet [generic] 40 mg By Mouth Once daily For chronic diastolic CHF 40 mg 2024 Active 2024 52410 57254 0 Once daily By Mouth False Ventolin HFA 90 mcg/actuati on aerosol inhaler 2 puff Inhalation Every 6 hours as needed For SOB/ wheeze 2 puff 2024 Active 2024 00860 29882 0 Every 6 hours as needed Inhala tion False Amitriptyli ne 25 mg tablet [generic] 25 mg By Mouth At bedtime For general anxiety disorder 25 mg 06/26 Inactiv e 2024 55293 36816 1 At bedtime By Mouth False Levothyroxi ne 125 mcg tablet [generic] 125 mcg By Mouth Once daily For hypothyroidis m 125 mcg 2024 Active 2024 25883 79824 0 Once daily By Mouth False Arformotero l 15 mcg/2 mL solution for nebulizatio n [generic] 06/20 Inactiv e 2024 58722 72388 0 Arformotero l 15 mcg/2 mL solution for nebulizatio n [generic] 15 mcg Inhalation Twice daily For copd/asthma/ interstitial lung disease 15 mcg 2024 Active 2024 03671 36228 0 Twice daily Inhala tion False Clonazepam 0.5 mg tablet [generic] 0.5mg By Mouth As Needed q12 hour PRN For anxiety 0.5mg 06/28 Inactiv e 2024 85475 60209 0 By Mouth False Colace 100 mg capsule 100 mg By Mouth Twice daily For Constipation 100 mg 2024 Active 2024 01276 89024 1 Twice daily By Mouth False Boost 0.04 gram-1 kcal/mL oral liquid 1 carton By Mouth 3 times a day For malnutrition 1 carton 06/27 Inactiv e 2024 93089 17677 9 3 times a day By Mouth False Amitriptyli ne 10 mg tablet [generic] 10mg By Mouth At bedtime along with 25 mg dose to equal 35mg For anxiety 10mg 2024 Active 2024 55040 17564 1 At bedtime By Mouth False Amitriptyli ne 25 mg tablet [generic] 06/26 Inactiv e 2024 44755 58365 1 Amitriptyli ne 25 mg tablet [generic] 25 mg By Mouth At bedtime Along with 10mg to equal 35mg. for anxiety 25 mg 2024 Active 2024 16151 00589 1 At bedtime By Mouth False Boost Breeze Nutritional 0.04 gram-1.05 kcal/mL oral liquid 237 ml By Mouth Twice daily Boost Breeze 237 ml oral liquids For Early satiety, low average meal intake - please record number of mL consumed 237 ml 2024 Active 2024 38973 10619 1 Twice daily By Mouth False Prosource [...] PRN For anxiety 0.5mg 2024 Active 2024 46656 63516 0 By Mouth False Betadine Swabsticks 10 % 1 scott Topical Twice daily to bilateral heels For stage 2 pressure injury 1 scott 2024 Active 2024 96648 56158 1 Twice daily Topica l False Problems [...] weight Temperature SpO2 Blood Sugar Pulse Respirations 52632 102 90295 9 83.00 mm[Hg] - Lying Down 170.00 mm[Hg] - Lying Down 98.20 Forehead Scan 98.00 % 86.00/ min 18.00/min 03983 102 75596 4 83.00 mm[Hg] - Sitting 170.00 mm[Hg] - Sitting 98.20 Tympanic 86.00/ min 18.00/min 11802 103 14530 5 98.20 Tympanic 69463 103 15950 3 80.00 mm[Hg] - Lying Down 164.00 mm[Hg] - Lying Down 91.00/ min 20.00/min 57693 103 82733 0 80.00 mm[Hg] - Sitting 164.00 mm[Hg] - Sitting 98.20 Tympanic 91.00/ min 18.00/min 76830 103 54418 7 91.00 % 20.00/min 74210 103 78332 3 94.00 % 18.00/min 79174 103 01981 9 02647 104 27841 6 80.00 mm[Hg] - Sitting 140.00 mm[Hg] - Sitting 98.10 Tympanic 94.00 % 64.00/ min 18.00/min 61699 104 01363 1 80.00 mm[Hg] - Sitting 140.00 mm[Hg] - Sitting 98.10 Tympanic 64.00/ min 18.00/min 50276 104 61067 0 80.00 mm[Hg] - Sitting 140.00 mm[Hg] - Sitting 98.10 Tympanic 64.00/ min 18.00/min 02027 104 33231 7 73.00 mm[Hg] - Sitting 136.00 mm[Hg] - Sitting 97.90 Forehead Scan 95.00 % 74.00/ min 16.00/min 80010 104 48657 8 73.00 mm[Hg] - Sitting 135.00 mm[Hg] - Sitting 98.20 Tympanic 74.00/ min 18.00/min 62002 104 67160 6 95.00 % 18.00/min 44339 104 40490 6 96.00 % 18.00/min 11431 104 90278 4 94.00 % 18.00/min 71853 104 25531 0 18.00/mi n 80131 105 49509 0 73.00 mm[Hg] - Sitting 135.00 mm[Hg] - Sitting 98.20 Tympanic 74.00/ min 18.00/min 44408 105 99627 6 73.00 mm[Hg] - Sitting 135.00 mm[Hg] - Sitting 98.20 Tympanic 74.00/ min 20.00/min 63805 105 58324 3 53.00 mm[Hg] - Sitting 126.00 mm[Hg] - Sitting 97.00 Tympanic 99.00 % 56.00/ min 20.00/min 64173 105 32692 6 93.00 % 20.00/min 76162 105 05827 8 94.00 % 20.00/min 54559 105 38241 3 97.00 % 18.00/min 35523 105 02488 9 96.00 % 18.00/min 44216 106 21525 0 67.00 mm[Hg] - Sitting 150.00 mm[Hg] - Sitting 98.80 Forehead Scan 97.00 % 58.00/ min 16.00/min 84355 107 72745 3 136.00 NI 46910 107 13045 0 59 NI 91976 107 49772 0 61.00 mm[Hg] - Sitting 144.00 mm[Hg] - Sitting 97.90 Tympanic 93.00 % 54.00/ min 16.00/min 56900 107 39479 1 95.00 % 18.00/min 89527 107 81595 0 18.00/mi n 44100 107 94187 6 63.00 mm[Hg] - Sitting 159.00 mm[Hg] - Sitting 60.00/ min 98036 107 01398 6 94.00 % 18.00/min 84934 107 59534 3 95.00 % 18.00/min 87342 108 74799 0 55.00 mm[Hg] - Sitting 127.00 mm[Hg] - Sitting 97.80 Tympanic 95.00 % 55.00/ min 16.00/min 46258 108 89750 8 96.00 % 29332 108 69592 4 95.00 % 20.00/min 22731 108 54364 0 96.00 % 20.00/min 15630 108 43732 2 96.00 % 20.00/min 97471 109 99539 0 63.00 mm[Hg] - Sitting 131.00 mm[Hg] - Sitting 98.70 Tympanic 96.00 % 54.00/ min 18.00/min 91909 109 05872 8 94.00 % 18.00/min 57477 109 48809 2 18.00/mi n 77851 109 20254 5 97.00 % 18.00/min 35998 109 2 96.00 % 18.00/min 06011 110 35380 0 55.00 mm[Hg] - Lying Down 137.00 mm[Hg] - Lying Down 97.00 Tympanic 93.00 % 63.00/ min 20.00/min 57254 110 13124 6 94.00 % 18.00/min 02457 110 64412 8 94.00 % 18.00/min 90748 110 73984 0 74.00 mm[Hg] - Sitting 161.00 mm[Hg] - Sitting 56.00/ min 46618 110 60170 1 94.00 % 18.00/min 85291 110 66287 6 18.00/mi n 94245 111 42755 9 74.00 mm[Hg] - Sitting 161.00 mm[Hg] - Sitting 97.80 Tympanic 92.00 % 56.00/ min 16.00/min 34383 111 13926 5 94.00 % 18.00/min 46381 111 47385 5 94.00 % 18.00/min 26572 111 17022 4 95.00 % 18.00/min 33313 111 13378 3 18.00/mi n 66542 112 67134 0 58.00 mm[Hg] - Sitting 138.00 mm[Hg] - Sitting 98.20 Tympanic 92.00 % 55.00/ min 16.00/min 54141 112 34706 7 95.00 % 20.00/min 41677 112 61899 7 95.00 % 20.00/min 06725 112 14773 5 95.00 % 18.00/min 87869 112 86203 0 18.00/mi n 75411 113 18755 0 50.00 mm[Hg] - Sitting 110.00 mm[Hg] - Sitting 97.70 Forehead Scan 94.00 % 54.00/ min 20.00/min 22074 113 10152 1 95.00 % 18.00/min 41292 113 41465 2 96.00 % 18.00/min 29636 113 26739 0 95.00 % 15.00/min 39987 113 11753 4 95.00 % 18.00/min 29884 114 57237 7 96.00 % 18.00/min 10285 114 33876 8 94.00 % 18.00/min Immunizations Vaccine Date Status Other 06/20/2024 Completed
--- OUTSIDE RECORDS SUMMARY | 2024-07-19 23:07 | External Medical Summary | Continuity Of Care Document ---
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 unit/0.1 mL intradermal injection solution [Tuberculin PPD] 0.1mL Intradermal Once daily For PPD 2nd Step Give 2nd Step PPD Day 1 and Read results Day 3 (schedule 7 days after 1st READ) 0.1mL 07/03 Active 2024 04932 98129 0 Once daily Intrad ermal False Tylenol 325 mg tablet 2 tabs By Mouth Every 4 hours as needed For Pain DO NOT EXCEED 3000 MG APAP/24 Hours 2 tabs 2024 Active 2024 09651 49188 0 Every 4 hours as needed By Mouth False Dulcolax (bisacodyl) 10 mg rectal suppository One Suppository per rectum PRN if Milk of Magnisia ineffective. Give on day 5 of no BM 1 sup 2024 Active 2024 47820 48425 1 Daily as needed Rectal False Fleet Enema 19 gram-7 gram/118 mL Administer per rectum PRN one time if dulcolax suppository not effective. Give on day 6 of no BM 1 2024 Active 2024 86554 94719 6 Daily as needed Rectal False Tylenol 325 mg tablet 2 tabs By Mouth Every 4 hours as needed For Fever >100 DO NOT EXCEED 3000 MG APAP/24 Hours 2 tabs 2024 Active 2024 84181 09397 0 Every 4 hours as needed By Mouth False Eliquis 5 mg tablet 5 mg By Mouth Twice daily For afib 5 mg 2024 Active 2024 77827 84167 1 Twice daily By Mouth False Ferrous sulfate 325 mg (65 mg iron) tablet [generic] 325 mg By Mouth Once daily For supplement 325 mg 2024 Active 2024 96058 59646 5 Once daily By Mouth False Magnesium oxide 400 mg (241.3 mg magnesium) tablet [generic] 400 mg By Mouth Once daily For supplement 400 mg 2024 Active 2024 28898 32201 2 Once daily By Mouth False Protonix 40 mg tablet,bozena yed release 40 mg By Mouth Once daily For GERD 40 mg 2024 Active 2024 58401 52185 1 Once daily By Mouth False Sotalol 120 mg tablet [generic] 120 mg By Mouth Twice daily For SVT 120 mg 2024 Active 2024 24427 65400 1 Twice daily By Mouth False Rosuvastati n 20 mg tablet [generic] 20 mg By Mouth Once daily For HLD 20 mg 2024 Active 2024 61279 96442 0 Once daily By Mouth False Arformotero l 15 mcg/2 mL solution for nebulizatio n [generic] 15 mcg Inhalation Twice daily For copd/asthma/ interstitial lung disease 15 mcg 06/20 Inactiv e 2024 42969 06052 0 Twice daily Inhala tion False Budesonide 0.5 mg/2 mL suspension for nebulizatio n [generic] 0.5 mg Inhalation Twice daily For copd/ asthma/ interstital lung disease 0.5 mg 2024 Active 2024 45440 91099 8 Twice daily Inhala tion False Furosemide 40 mg tablet [generic] 40 mg By Mouth Once daily For chronic diastolic CHF 40 mg 2024 Active 2024 53306 41282 0 Once daily By Mouth False Furosemide 40 mg tablet [generic] 40 mg By Mouth Once daily For chronic diastolic CHF 40 mg 2024 Active 2024 49440 45780 0 Once daily By Mouth False Ventolin HFA 90 mcg/actuati on aerosol inhaler 2 puff Inhalation Every 6 hours as needed For SOB/ wheeze 2 puff 2024 Active 2024 90987 51546 0 Every 6 hours as needed Inhala tion False Amitriptyli ne 25 mg tablet [generic] 25 mg By Mouth At bedtime For general anxiety disorder 25 mg 06/26 Inactiv e 2024 20709 50768 1 At bedtime By Mouth False Levothyroxi ne 125 mcg tablet [generic] 125 mcg By Mouth Once daily For hypothyroidis m 125 mcg 2024 Active 2024 79016 53088 0 Once daily By Mouth False Arformotero l 15 mcg/2 mL solution for nebulizatio n [generic] 06/20 Inactiv e 2024 49010 26926 0 Arformotero l 15 mcg/2 mL solution for nebulizatio n [generic] 15 mcg Inhalation Twice daily For copd/asthma/ interstitial lung disease 15 mcg 2024 Active 2024 87926 78600 0 Twice daily Inhala tion False Clonazepam 0.5 mg tablet [generic] 0.5mg By Mouth As Needed q12 hour PRN For anxiety 0.5mg 06/28 Inactiv e 2024 07035 88317 0 By Mouth False Colace 100 mg capsule 100 mg By Mouth Twice daily For Constipation 100 mg 2024 Active 2024 18048 63826 1 Twice daily By Mouth False Boost 0.04 gram-1 kcal/mL oral liquid 1 carton By Mouth 3 times a day For malnutrition 1 carton 06/27 Inactiv e 2024 93416 77663 9 3 times a day By Mouth False Amitriptyli ne 10 mg tablet [generic] 10mg By Mouth At bedtime along with 25 mg dose to equal 35mg For anxiety 10mg 2024 Active 2024 23146 26278 1 At bedtime By Mouth False Amitriptyli ne 25 mg tablet [generic] 06/26 Inactiv e 2024 73845 16814 1 Amitriptyli ne 25 mg tablet [generic] 25 mg By Mouth At bedtime Along with 10mg to equal 35mg. for anxiety 25 mg 2024 Active 2024 51395 40085 1 At bedtime By Mouth False Boost Breeze Nutritional 0.04 gram-1.05 kcal/mL oral liquid 237 ml By Mouth Twice daily Boost Breeze 237 ml oral liquids For Early satiety, low average meal intake - please record number of mL consumed 237 ml 2024 Active 2024 98183 03255 1 Twice daily By Mouth False Prosource [...] PRN For anxiety 0.5mg 2024 Active 2024 75256 86151 0 By Mouth False Betadine Swabsticks 10 % 1 scott Topical Twice daily to bilateral heels For stage 2 pressure injury 1 scott 2024 Active 2024 75006 34036 1 Twice daily Topica l False Problems [...] weight Temperature SpO2 Blood Sugar Pulse Respirations 25729 102 51703 9 83.00 mm[Hg] - Lying Down 170.00 mm[Hg] - Lying Down 98.20 Forehead Scan 98.00 % 86.00/ min 18.00/min 03175 102 65102 4 83.00 mm[Hg] - Sitting 170.00 mm[Hg] - Sitting 98.20 Tympanic 86.00/ min 18.00/min 76071 103 13459 5 98.20 Tympanic 65308 103 21513 3 80.00 mm[Hg] - Lying Down 164.00 mm[Hg] - Lying Down 91.00/ min 20.00/min 64451 103 00101 0 80.00 mm[Hg] - Sitting 164.00 mm[Hg] - Sitting 98.20 Tympanic 91.00/ min 18.00/min 64704 103 13102 7 91.00 % 20.00/min 27090 103 31195 3 94.00 % 18.00/min 63751 103 22036 9 28030 104 71245 6 80.00 mm[Hg] - Sitting 140.00 mm[Hg] - Sitting 98.10 Tympanic 94.00 % 64.00/ min 18.00/min 99205 104 10687 1 80.00 mm[Hg] - Sitting 140.00 mm[Hg] - Sitting 98.10 Tympanic 64.00/ min 18.00/min 04284 104 54189 0 80.00 mm[Hg] - Sitting 140.00 mm[Hg] - Sitting 98.10 Tympanic 64.00/ min 18.00/min 43699 104 79075 7 73.00 mm[Hg] - Sitting 136.00 mm[Hg] - Sitting 97.90 Forehead Scan 95.00 % 74.00/ min 16.00/min 40846 104 06566 8 73.00 mm[Hg] - Sitting 135.00 mm[Hg] - Sitting 98.20 Tympanic 74.00/ min 18.00/min 51975 104 78884 6 95.00 % 18.00/min 68911 104 00471 6 96.00 % 18.00/min 56208 104 86145 4 94.00 % 18.00/min 36716 104 46132 0 18.00/mi n 73311 105 64978 0 73.00 mm[Hg] - Sitting 135.00 mm[Hg] - Sitting 98.20 Tympanic 74.00/ min 18.00/min 33791 105 80367 6 73.00 mm[Hg] - Sitting 135.00 mm[Hg] - Sitting 98.20 Tympanic 74.00/ min 20.00/min 57160 105 19740 3 53.00 mm[Hg] - Sitting 126.00 mm[Hg] - Sitting 97.00 Tympanic 99.00 % 56.00/ min 20.00/min 33578 105 84693 6 93.00 % 20.00/min 58576 105 85332 8 94.00 % 20.00/min 09401 105 04370 3 97.00 % 18.00/min 50638 105 54698 9 96.00 % 18.00/min 18987 106 62371 0 67.00 mm[Hg] - Sitting 150.00 mm[Hg] - Sitting 98.80 Forehead Scan 97.00 % 58.00/ min 16.00/min 96812 107 27590 3 136.00 NI 83403 107 93944 0 59 NI 40962 107 82044 0 61.00 mm[Hg] - Sitting 144.00 mm[Hg] - Sitting 97.90 Tympanic 93.00 % 54.00/ min 16.00/min 62693 107 59180 1 95.00 % 18.00/min 22366 107 39266 0 18.00/mi n 52296 107 98708 6 63.00 mm[Hg] - Sitting 159.00 mm[Hg] - Sitting 60.00/ min 70980 107 79447 6 94.00 % 18.00/min 45934 107 41175 3 95.00 % 18.00/min 06118 108 10135 0 55.00 mm[Hg] - Sitting 127.00 mm[Hg] - Sitting 97.80 Tympanic 95.00 % 55.00/ min 16.00/min 65525 108 40085 8 96.00 % 01608 108 31888 4 95.00 % 20.00/min 90231 108 30722 0 96.00 % 20.00/min 45457 108 40497 2 96.00 % 20.00/min 76560 109 62534 0 63.00 mm[Hg] - Sitting 131.00 mm[Hg] - Sitting 98.70 Tympanic 96.00 % 54.00/ min 18.00/min 41260 109 84199 8 94.00 % 18.00/min 53468 109 72424 2 18.00/mi n 70342 109 95185 5 97.00 % 18.00/min 45779 109 2 96.00 % 18.00/min 82168 110 56134 0 55.00 mm[Hg] - Lying Down 137.00 mm[Hg] - Lying Down 97.00 Tympanic 93.00 % 63.00/ min 20.00/min 59371 110 94383 6 94.00 % 18.00/min 43267 110 63239 8 94.00 % 18.00/min 74158 110 02134 0 74.00 mm[Hg] - Sitting 161.00 mm[Hg] - Sitting 56.00/ min 73434 110 32252 1 94.00 % 18.00/min 02029 110 04617 6 18.00/mi n 25323 111 62910 9 74.00 mm[Hg] - Sitting 161.00 mm[Hg] - Sitting 97.80 Tympanic 92.00 % 56.00/ min 16.00/min 38191 111 55724 5 94.00 % 18.00/min 18024 111 82067 5 94.00 % 18.00/min 98598 111 75418 4 95.00 % 18.00/min 76625 111 89111 3 18.00/mi n 60868 112 76867 0 58.00 mm[Hg] - Sitting 138.00 mm[Hg] - Sitting 98.20 Tympanic 92.00 % 55.00/ min 16.00/min 97735 112 04967 7 95.00 % 20.00/min 69063 112 66898 7 95.00 % 20.00/min 97468 112 04617 5 95.00 % 18.00/min 28516 112 40505 0 18.00/mi n 39163 113 45742 0 50.00 mm[Hg] - Sitting 110.00 mm[Hg] - Sitting 97.70 Forehead Scan 94.00 % 54.00/ min 20.00/min 70641 113 89684 1 95.00 % 18.00/min 95458 113 71557 2 96.00 % 18.00/min 45925 113 97004 0 95.00 % 15.00/min 34980 113 84912 4 95.00 % 18.00/min 17802 114 12146 7 96.00 % 18.00/min 63342 114 27467 8 94.00 % 18.00/min Immunizations Vaccine Date Status Other 06/20/2024 Completed
--- OUTSIDE RECORDS SUMMARY | 2024-07-19 23:07 | External Medical Summary | Continuity Of Care Document ---
Author Name Unknown Address [address] [address] Organization [facility] () Care Team Providers Care Lining Vamper Name Role Phone DO Lopez Amy Primary Care Provider [phone] Allergies Allergy Reaction Start Date End Date Status IODINE Swelling Facial/tongue/throat/hands/f rtuh/feet Active METHADONE Active PROPOXYPHENE Active SHELLFISH DERIVED [...] 3 0.1 mL 06/23 Inactiv e 2024 15679 64891 0 At bedtime Intrad ermal False Tubersol 5 tub. unit/0.1 mL intradermal injection solution [Tuberculin PPD] 0.1mL Intradermal Once daily For PPD 2nd Step Give 2nd Step PPD Day 1 and Read results Day 3 (schedule 7 days after 1st READ) 0.1mL 07/03 Active 2024 18306 71376 0 Once daily Intrad ermal False Tylenol 325 mg tablet 2 tabs By Mouth Every 4 hours as needed For Pain DO NOT EXCEED 3000 MG APAP/24 Hours 2 tabs 2024 Active 2024 73035 98649 0 Every 4 hours as needed By Mouth False Dulcolax (bisacodyl) 10 mg rectal suppository One Suppository per rectum PRN if Milk of Magnisia ineffective. Give on day 5 of no BM 1 sup 2024 Active 2024 53097 75090 1 Daily as needed Rectal False Fleet Enema 19 gram-7 gram/118 mL Administer per rectum PRN one time if dulcolax suppository not effective. Give on day 6 of no BM 1 2024 Active 2024 51352 79996 6 Daily as needed Rectal False Tylenol 325 mg tablet 2 tabs By Mouth Every 4 hours as needed For Fever >100 DO NOT EXCEED 3000 MG APAP/24 Hours 2 tabs 2024 Active 2024 03539 92860 0 Every 4 hours as needed By Mouth False Eliquis 5 mg tablet 5 mg By Mouth Twice daily For afib 5 mg 2024 Active 2024 95103 61966 1 Twice daily By Mouth False Ferrous sulfate 325 mg (65 mg iron) tablet [generic] 325 mg By Mouth Once daily For supplement 325 mg 2024 Active 2024 39007 91252 5 Once daily By Mouth False Magnesium oxide 400 mg (241.3 mg magnesium) tablet [generic] 400 mg By Mouth Once daily For supplement 400 mg 2024 Active 2024 19331 72514 2 Once daily By Mouth False Protonix 40 mg tablet,bozena yed release 40 mg By Mouth Once daily For GERD 40 mg 2024 Active 2024 75464 24851 1 Once daily By Mouth False Sotalol 120 mg tablet [generic] 120 mg By Mouth Twice daily For SVT 120 mg 2024 Active 2024 31013 47483 1 Twice daily By Mouth False Rosuvastati n 20 mg tablet [generic] 20 mg By Mouth Once daily For HLD 20 mg 2024 Active 2024 11345 84060 0 Once daily By Mouth False Arformotero l 15 mcg/2 mL solution for nebulizatio n [generic] 15 mcg Inhalation Twice daily For copd/asthma/ interstitial lung disease 15 mcg 06/20 Inactiv e 2024 71016 62799 0 Twice daily Inhala tion False Budesonide 0.5 mg/2 mL suspension for nebulizatio n [generic] 0.5 mg Inhalation Twice daily For copd/ asthma/ interstital lung disease 0.5 mg 2024 Active 2024 62234 08939 8 Twice daily Inhala tion False Furosemide 40 mg tablet [generic] 40 mg By Mouth Once daily For chronic diastolic CHF 40 mg 2024 Active 2024 74668 00809 0 Once daily By Mouth False Furosemide 40 mg tablet [generic] 40 mg By Mouth Once daily For chronic diastolic CHF 40 mg 2024 Active 2024 58768 85197 0 Once daily By Mouth False Ventolin HFA 90 mcg/actuati on aerosol inhaler 2 puff Inhalation Every 6 hours as needed For SOB/ wheeze 2 puff 2024 Active 2024 64239 35193 0 Every 6 hours as needed Inhala tion False Amitriptyli ne 25 mg tablet [generic] 25 mg By Mouth At bedtime For general anxiety disorder 25 mg 06/26 Inactiv e 2024 33650 49881 1 At bedtime By Mouth False Levothyroxi ne 125 mcg tablet [generic] 125 mcg By Mouth Once daily For hypothyroidis m 125 mcg 2024 Active 2024 30198 13800 0 Once daily By Mouth False Arformotero l 15 mcg/2 mL solution for nebulizatio n [generic] 06/20 Inactiv e 2024 62229 74467 0 Arformotero l 15 mcg/2 mL solution for nebulizatio n [generic] 15 mcg Inhalation Twice daily For copd/asthma/ interstitial lung disease 15 mcg 2024 Active 2024 66325 07630 0 Twice daily Inhala tion False Clonazepam 0.5 mg tablet [generic] 0.5mg By Mouth As Needed q12 hour PRN For anxiety 0.5mg 06/28 Inactiv e 2024 48111 30911 0 By Mouth False Colace 100 mg capsule 100 mg By Mouth Twice daily For Constipation 100 mg 2024 Active 2024 26597 65068 1 Twice daily By Mouth False Boost 0.04 gram-1 kcal/mL oral liquid 1 carton By Mouth 3 times a day For malnutrition 1 carton 06/27 Inactiv e 2024 92628 18124 9 3 times a day By Mouth False Amitriptyli ne 10 mg tablet [generic] 10mg By Mouth At bedtime along with 25 mg dose to equal 35mg For anxiety 10mg 2024 Active 2024 33964 07681 1 At bedtime By Mouth False Amitriptyli ne 25 mg tablet [generic] 06/26 Inactiv e 2024 13630 37537 1 Amitriptyli ne 25 mg tablet [generic] 25 mg By Mouth At bedtime Along with 10mg to equal 35mg. for anxiety 25 mg 2024 Active 2024 76233 48214 1 At bedtime By Mouth False Boost Breeze Nutritional 0.04 gram-1.05 kcal/mL oral liquid 237 ml By Mouth Twice daily Boost Breeze 237 ml oral liquids For Early satiety, low average meal intake - please record number of mL consumed 237 ml 2024 Active 2024 78918 32069 1 Twice daily By Mouth False Prosource [...] PRN For anxiety 0.5mg 2024 Active 2024 41742 42285 0 By Mouth False Betadine Swabsticks 10 % 1 scott Topical Twice daily to bilateral heels For stage 2 pressure injury 1 scott 2024 Active 2024 86295 72733 1 Twice daily Topica l False Problems [...] weight Temperature SpO2 Blood Sugar Pulse Respirations 73147 102 15055 9 83.00 mm[Hg] - Lying Down 170.00 mm[Hg] - Lying Down 98.20 Forehead Scan 98.00 % 86.00/ min 18.00/min 84285 102 68233 4 83.00 mm[Hg] - Sitting 170.00 mm[Hg] - Sitting 98.20 Tympanic 86.00/ min 18.00/min 89130 103 31870 5 98.20 Tympanic 82684 103 81057 3 80.00 mm[Hg] - Lying Down 164.00 mm[Hg] - Lying Down 91.00/ min 20.00/min 76248 103 75889 0 80.00 mm[Hg] - Sitting 164.00 mm[Hg] - Sitting 98.20 Tympanic 91.00/ min 18.00/min 54350 103 83722 7 91.00 % 20.00/min 28871 103 52668 3 94.00 % 18.00/min 79477 103 19240 9 84274 104 08946 6 80.00 mm[Hg] - Sitting 140.00 mm[Hg] - Sitting 98.10 Tympanic 94.00 % 64.00/ min 18.00/min 42982 104 01895 1 80.00 mm[Hg] - Sitting 140.00 mm[Hg] - Sitting 98.10 Tympanic 64.00/ min 18.00/min 99943 104 37529 0 80.00 mm[Hg] - Sitting 140.00 mm[Hg] - Sitting 98.10 Tympanic 64.00/ min 18.00/min 52283 104 04805 7 73.00 mm[Hg] - Sitting 136.00 mm[Hg] - Sitting 97.90 Forehead Scan 95.00 % 74.00/ min 16.00/min 18815 104 45647 8 73.00 mm[Hg] - Sitting 135.00 mm[Hg] - Sitting 98.20 Tympanic 74.00/ min 18.00/min 90648 104 92129 6 95.00 % 18.00/min 03337 104 55691 6 96.00 % 18.00/min 23982 104 12299 4 94.00 % 18.00/min 17127 104 91982 0 18.00/mi n 52966 105 90320 0 73.00 mm[Hg] - Sitting 135.00 mm[Hg] - Sitting 98.20 Tympanic 74.00/ min 18.00/min 08976 105 26678 6 73.00 mm[Hg] - Sitting 135.00 mm[Hg] - Sitting 98.20 Tympanic 74.00/ min 20.00/min 24782 105 33741 3 53.00 mm[Hg] - Sitting 126.00 mm[Hg] - Sitting 97.00 Tympanic 99.00 % 56.00/ min 20.00/min 74807 105 22586 6 93.00 % 20.00/min 19291 105 94464 8 94.00 % 20.00/min 96049 105 62295 3 97.00 % 18.00/min 04570 105 50022 9 96.00 % 18.00/min 91338 106 01549 0 67.00 mm[Hg] - Sitting 150.00 mm[Hg] - Sitting 98.80 Forehead Scan 97.00 % 58.00/ min 16.00/min 75386 107 25044 3 136.00 NI 63278 107 75854 0 59 NI 20642 107 01963 0 61.00 mm[Hg] - Sitting 144.00 mm[Hg] - Sitting 97.90 Tympanic 93.00 % 54.00/ min 16.00/min 59709 107 09123 1 95.00 % 18.00/min 60040 107 99011 0 18.00/mi n 18104 107 72117 6 63.00 mm[Hg] - Sitting 159.00 mm[Hg] - Sitting 60.00/ min 01523 107 20913 6 94.00 % 18.00/min 05272 107 08536 3 95.00 % 18.00/min 21572 108 20897 0 55.00 mm[Hg] - Sitting 127.00 mm[Hg] - Sitting 97.80 Tympanic 95.00 % 55.00/ min 16.00/min 75452 108 36304 8 96.00 % 27788 108 04415 4 95.00 % 20.00/min 98105 108 95611 0 96.00 % 20.00/min 59074 108 19763 2 96.00 % 20.00/min 53614 109 37538 0 63.00 mm[Hg] - Sitting 131.00 mm[Hg] - Sitting 98.70 Tympanic 96.00 % 54.00/ min 18.00/min 96027 109 06014 8 94.00 % 18.00/min 00624 109 99836 2 18.00/mi n 13518 109 74146 5 97.00 % 18.00/min 41292 109 25694 2 96.00 % 18.00/min 99395 110 92090 0 55.00 mm[Hg] - Lying Down 137.00 mm[Hg] - Lying Down 97.00 Tympanic 93.00 % 63.00/ min 20.00/min 58062 110 48017 6 94.00 % 18.00/min 71032 110 78610 8 94.00 % 18.00/min 37328 110 49418 0 74.00 mm[Hg] - Sitting 161.00 mm[Hg] - Sitting 56.00/ min 12025 110 01637 1 94.00 % 18.00/min 82759 110 19768 6 18.00/mi n 71959 111 71316 9 74.00 mm[Hg] - Sitting 161.00 mm[Hg] - Sitting 97.80 Tympanic 92.00 % 56.00/ min 16.00/min 35886 111 80114 5 94.00 % 18.00/min 81325 111 66248 5 94.00 % 18.00/min 31756 111 26504 4 95.00 % 18.00/min 16124 111 30418 3 18.00/mi n 82533 112 45182 0 58.00 mm[Hg] - Sitting 138.00 mm[Hg] - Sitting 98.20 Tympanic 92.00 % 55.00/ min 16.00/min 02090 112 65269 7 95.00 % 20.00/min 73390 112 83270 7 95.00 % 20.00/min 94645 112 54573 5 95.00 % 18.00/min 45098 112 05619 0 18.00/mi n Immunizations Vaccine Date Status Other 06/20/2024 Completed
--- OUTSIDE RECORDS SUMMARY | 2024-07-19 23:07 | External Medical Summary | Continuity Of Care Document ---
Author Name Unknown Address [address] [address] Organization [facility] () Care Team Providers Care Filter Cloth Maker Name Role Phone DO Lopez Amy Primary Care Provider [phone] Allergies Allergy Reaction Start Date End Date [...] 3 0.1 mL 06/23 Inactiv e 2024 02201 50278 0 At bedtime Intrad ermal False Tubersol 5 tub. unit/0.1 mL intradermal injection solution [Tuberculin PPD] 0.1mL Intradermal Once daily For PPD 2nd Step Give 2nd Step PPD Day 1 and Read results Day 3 (schedule 7 days after 1st READ) 0.1mL 07/03 Active 2024 67910 91160 0 Once daily Intrad ermal False Tylenol 325 mg tablet 2 tabs By Mouth Every 4 hours as needed For Pain DO NOT EXCEED 3000 MG APAP/24 Hours 2 tabs 2024 Active 2024 98128 14181 0 Every 4 hours as needed By Mouth False Dulcolax (bisacodyl) 10 mg rectal suppository One Suppository per rectum PRN if Milk of Magnisia ineffective. Give on day 5 of no BM 1 sup 2024 Active 2024 64919 56098 1 Daily as needed Rectal False Fleet Enema 19 gram-7 gram/118 mL Administer per rectum PRN one time if dulcolax suppository not effective. Give on day 6 of no BM 1 2024 Active 2024 36591 36699 6 Daily as needed Rectal False Tylenol 325 mg tablet 2 tabs By Mouth Every 4 hours as needed For Fever >100 DO NOT EXCEED 3000 MG APAP/24 Hours 2 tabs 2024 Active 2024 21367 16000 0 Every 4 hours as needed By Mouth False Eliquis 5 mg tablet 5 mg By Mouth Twice daily For afib 5 mg 2024 Active 2024 83208 17491 1 Twice daily By Mouth False Ferrous sulfate 325 mg (65 mg iron) tablet [generic] 325 mg By Mouth Once daily For supplement 325 mg 2024 Active 2024 42193 89778 5 Once daily By Mouth False Magnesium oxide 400 mg (241.3 mg magnesium) tablet [generic] 400 mg By Mouth Once daily For supplement 400 mg 2024 Active 2024 20116 14623 2 Once daily By Mouth False Protonix 40 mg tablet,bozena yed release 40 mg By Mouth Once daily For GERD 40 mg 2024 Active 2024 25016 44282 1 Once daily By Mouth False Sotalol 120 mg tablet [generic] 120 mg By Mouth Twice daily For SVT 120 mg 2024 Active 2024 22158 80636 1 Twice daily By Mouth False Rosuvastati n 20 mg tablet [generic] 20 mg By Mouth Once daily For HLD 20 mg 2024 Active 2024 68425 10313 0 Once daily By Mouth False Arformotero l 15 mcg/2 mL solution for nebulizatio n [generic] 15 mcg Inhalation Twice daily For copd/asthma/ interstitial lung disease 15 mcg 06/20 Inactiv e 2024 63952 95310 0 Twice daily Inhala tion False Budesonide 0.5 mg/2 mL suspension for nebulizatio n [generic] 0.5 mg Inhalation Twice daily For copd/ asthma/ interstital lung disease 0.5 mg 2024 Active 2024 78292 13387 8 Twice daily Inhala tion False Furosemide 40 mg tablet [generic] 40 mg By Mouth Once daily For chronic diastolic CHF 40 mg 2024 Active 2024 57195 29394 0 Once daily By Mouth False Furosemide 40 mg tablet [generic] 40 mg By Mouth Once daily For chronic diastolic CHF 40 mg 2024 Active 2024 09019 57612 0 Once daily By Mouth False Ventolin HFA 90 mcg/actuati on aerosol inhaler 2 puff Inhalation Every 6 hours as needed For SOB/ wheeze 2 puff 2024 Active 2024 04159 99053 0 Every 6 hours as needed Inhala tion False Amitriptyli ne 25 mg tablet [generic] 25 mg By Mouth At bedtime For general anxiety disorder 25 mg 06/26 Inactiv e 2024 84797 63346 1 At bedtime By Mouth False Levothyroxi ne 125 mcg tablet [generic] 125 mcg By Mouth Once daily For hypothyroidis m 125 mcg 2024 Active 2024 68841 64385 0 Once daily By Mouth False Arformotero l 15 mcg/2 mL solution for nebulizatio n [generic] 06/20 Inactiv e 2024 43325 70224 0 Arformotero l 15 mcg/2 mL solution for nebulizatio n [generic] 15 mcg Inhalation Twice daily For copd/asthma/ interstitial lung disease 15 mcg 2024 Active 2024 13310 03311 0 Twice daily Inhala tion False Clonazepam 0.5 mg tablet [generic] 0.5mg By Mouth As Needed q12 hour PRN For anxiety 0.5mg 06/28 Inactiv e 2024 80901 13211 0 By Mouth False Colace 100 mg capsule 100 mg By Mouth Twice daily For Constipation 100 mg 2024 Active 2024 50852 78210 1 Twice daily By Mouth False Boost 0.04 gram-1 kcal/mL oral liquid 1 carton By Mouth 3 times a day For malnutrition 1 carton 06/27 Inactiv e 2024 83940 98583 9 3 times a day By Mouth False Amitriptyli ne 10 mg tablet [generic] 10mg By Mouth At bedtime along with 25 mg dose to equal 35mg For anxiety 10mg 2024 Active 2024 16510 46992 1 At bedtime By Mouth False Amitriptyli ne 25 mg tablet [generic] 06/26 Inactiv e 2024 43257 14410 1 Amitriptyli ne 25 mg tablet [generic] 25 mg By Mouth At bedtime Along with 10mg to equal 35mg. for anxiety 25 mg 2024 Active 2024 81190 89263 1 At bedtime By Mouth False Boost Breeze Nutritional 0.04 gram-1.05 kcal/mL oral liquid 237 ml By Mouth Twice daily Boost Breeze 237 ml oral liquids For Early satiety, low average meal intake - please record number of mL consumed 237 ml 2024 Active 2024 86399 13771 1 Twice daily By Mouth False Prosource [...] PRN For anxiety 0.5mg 2024 Active 2024 28628 57475 0 By Mouth False Betadine Swabsticks 10 % 1 scott Topical Twice daily to bilateral heels For stage 2 pressure injury 1 scott 2024 Active 2024 28363 68038 1 Twice daily Topica l False Problems [...] weight Temperature SpO2 Blood Sugar Pulse Respirations 42959 102 05810 9 83.00 mm[Hg] - Lying Down 170.00 mm[Hg] - Lying Down 98.20 Forehead Scan 98.00 % 86.00/ min 18.00/min 41309 102 87788 4 83.00 mm[Hg] - Sitting 170.00 mm[Hg] - Sitting 98.20 Tympanic 86.00/ min 18.00/min 29142 103 67253 5 98.20 Tympanic 32226 103 00442 3 80.00 mm[Hg] - Lying Down 164.00 mm[Hg] - Lying Down 91.00/ min 20.00/min 38133 103 26170 0 80.00 mm[Hg] - Sitting 164.00 mm[Hg] - Sitting 98.20 Tympanic 91.00/ min 18.00/min 17047 103 56025 7 91.00 % 20.00/min 55383 103 09166 3 94.00 % 18.00/min 63515 103 07584 9 85733 104 28622 6 80.00 mm[Hg] - Sitting 140.00 mm[Hg] - Sitting 98.10 Tympanic 94.00 % 64.00/ min 18.00/min 42930 104 42300 1 80.00 mm[Hg] - Sitting 140.00 mm[Hg] - Sitting 98.10 Tympanic 64.00/ min 18.00/min 14566 104 75974 0 80.00 mm[Hg] - Sitting 140.00 mm[Hg] - Sitting 98.10 Tympanic 64.00/ min 18.00/min 32274 104 88412 7 73.00 mm[Hg] - Sitting 136.00 mm[Hg] - Sitting 97.90 Forehead Scan 95.00 % 74.00/ min 16.00/min 40153 104 54950 8 73.00 mm[Hg] - Sitting 135.00 mm[Hg] - Sitting 98.20 Tympanic 74.00/ min 18.00/min 51886 104 77933 6 95.00 % 18.00/min 50818 104 73279 6 96.00 % 18.00/min 77000 104 49381 4 94.00 % 18.00/min 12465 104 73934 0 18.00/mi n 51705 105 67896 0 73.00 mm[Hg] - Sitting 135.00 mm[Hg] - Sitting 98.20 Tympanic 74.00/ min 18.00/min 55847 105 96799 6 73.00 mm[Hg] - Sitting 135.00 mm[Hg] - Sitting 98.20 Tympanic 74.00/ min 20.00/min 03600 105 81002 3 53.00 mm[Hg] - Sitting 126.00 mm[Hg] - Sitting 97.00 Tympanic 99.00 % 56.00/ min 20.00/min 43528 105 39298 6 93.00 % 20.00/min 97213 105 89076 8 94.00 % 20.00/min 72030 105 55615 3 97.00 % 18.00/min 50190 105 39247 9 96.00 % 18.00/min 83436 106 85472 0 67.00 mm[Hg] - Sitting 150.00 mm[Hg] - Sitting 98.80 Forehead Scan 97.00 % 58.00/ min 16.00/min 04213 107 72808 3 136.00 NI 34761 107 61082 0 59 NI 04467 107 94514 0 61.00 mm[Hg] - Sitting 144.00 mm[Hg] - Sitting 97.90 Tympanic 93.00 % 54.00/ min 16.00/min 76146 107 66070 1 95.00 % 18.00/min 29614 107 03224 0 18.00/mi n 88698 107 30329 6 63.00 mm[Hg] - Sitting 159.00 mm[Hg] - Sitting 60.00/ min 74856 107 22779 6 94.00 % 18.00/min 84288 107 59216 3 95.00 % 18.00/min 50205 108 97423 0 55.00 mm[Hg] - Sitting 127.00 mm[Hg] - Sitting 97.80 Tympanic 95.00 % 55.00/ min 16.00/min 88211 108 83593 8 96.00 % 96429 108 06022 4 95.00 % 20.00/min 46566 108 34407 0 96.00 % 20.00/min 24246 108 89547 2 96.00 % 20.00/min 57753 109 75062 0 63.00 mm[Hg] - Sitting 131.00 mm[Hg] - Sitting 98.70 Tympanic 96.00 % 54.00/ min 18.00/min 11789 109 96087 8 94.00 % 18.00/min 92956 109 18930 2 18.00/mi n 09018 109 30153 5 97.00 % 18.00/min 42599 109 76077 2 96.00 % 18.00/min 58546 110 24919 0 55.00 mm[Hg] - Lying Down 137.00 mm[Hg] - Lying Down 97.00 Tympanic 93.00 % 63.00/ min 20.00/min 43674 110 40409 6 94.00 % 18.00/min 87624 110 60633 8 94.00 % 18.00/min 29940 110 63699 0 74.00 mm[Hg] - Sitting 161.00 mm[Hg] - Sitting 56.00/ min 22624 110 27301 1 94.00 % 18.00/min 40922 110 79411 6 18.00/mi n 02056 111 95934 9 74.00 mm[Hg] - Sitting 161.00 mm[Hg] - Sitting 97.80 Tympanic 92.00 % 56.00/ min 16.00/min 84509 111 81892 5 94.00 % 18.00/min 26384 111 19760 5 94.00 % 18.00/min 56259 111 45713 4 95.00 % 18.00/min 75715 111 39245 3 18.00/mi n Immunizations Vaccine Date Status Other 06/20/2024 Completed
--- OUTSIDE RECORDS SUMMARY | 2024-07-19 23:07 | External Medical Summary | Continuity Of Care Document ---
Author Name Unknown Address [address] 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 unit/0.1 mL intradermal injection solution [Tuberculin PPD] 0.1mL Intradermal Once daily For PPD 2nd Step Give 2nd Step PPD Day 1 and Read results Day 3 (schedule 7 days after 1st READ) 0.1mL 07/03 Active 2024 43844 15661 0 Once daily Intrad ermal False Tylenol 325 mg tablet 2 tabs By Mouth Every 4 hours as needed For Pain DO NOT EXCEED 3000 MG APAP/24 Hours 2 tabs 2024 Active 2024 97591 05507 0 Every 4 hours as needed By Mouth False Dulcolax (bisacodyl) 10 mg rectal suppository One Suppository per rectum PRN if Milk of Magnisia ineffective. Give on day 5 of no BM 1 sup 2024 Active 2024 04158 41448 1 Daily as needed Rectal False Fleet Enema 19 gram-7 gram/118 mL Administer per rectum PRN one time if dulcolax suppository not effective. Give on day 6 of no BM 1 2024 Active 2024 09813 87371 6 Daily as needed Rectal False Tylenol 325 mg tablet 2 tabs By Mouth Every 4 hours as needed For Fever >100 DO NOT EXCEED 3000 MG APAP/24 Hours 2 tabs 2024 Active 2024 46838 29383 0 Every 4 hours as needed By Mouth False Eliquis 5 mg tablet 5 mg By Mouth Twice daily For afib 5 mg 2024 Active 2024 33639 97386 1 Twice daily By Mouth False Ferrous sulfate 325 mg (65 mg iron) tablet [generic] 325 mg By Mouth Once daily For supplement 325 mg 2024 Active 2024 54833 39810 5 Once daily By Mouth False Magnesium oxide 400 mg (241.3 mg magnesium) tablet [generic] 400 mg By Mouth Once daily For supplement 400 mg 2024 Active 2024 90817 31880 2 Once daily By Mouth False Protonix 40 mg tablet,bozena yed release 40 mg By Mouth Once daily For GERD 40 mg 2024 Active 2024 35443 98929 1 Once daily By Mouth False Sotalol 120 mg tablet [generic] 120 mg By Mouth Twice daily For SVT 120 mg 2024 Active 2024 31737 06711 1 Twice daily By Mouth False Rosuvastati n 20 mg tablet [generic] 20 mg By Mouth Once daily For HLD 20 mg 2024 Active 2024 23325 60041 0 Once daily By Mouth False Arformotero l 15 mcg/2 mL solution for nebulizatio n [generic] 15 mcg Inhalation Twice daily For copd/asthma/ interstitial lung disease 15 mcg 06/20 Inactiv e 2024 04420 67474 0 Twice daily Inhala tion False Budesonide 0.5 mg/2 mL suspension for nebulizatio n [generic] 0.5 mg Inhalation Twice daily For copd/ asthma/ interstital lung disease 0.5 mg 2024 Active 2024 66036 67714 8 Twice daily Inhala tion False Furosemide 40 mg tablet [generic] 40 mg By Mouth Once daily For chronic diastolic CHF 40 mg 2024 Active 2024 13256 18958 0 Once daily By Mouth False Furosemide 40 mg tablet [generic] 40 mg By Mouth Once daily For chronic diastolic CHF 40 mg 2024 Active 2024 29834 86867 0 Once daily By Mouth False Ventolin HFA 90 mcg/actuati on aerosol inhaler 2 puff Inhalation Every 6 hours as needed For SOB/ wheeze 2 puff 2024 Active 2024 22806 92802 0 Every 6 hours as needed Inhala tion False Amitriptyli ne 25 mg tablet [generic] 25 mg By Mouth At bedtime For general anxiety disorder 25 mg 06/26 Inactiv e 2024 89726 26203 1 At bedtime By Mouth False Levothyroxi ne 125 mcg tablet [generic] 125 mcg By Mouth Once daily For hypothyroidis m 125 mcg 2024 Active 2024 38540 65607 0 Once daily By Mouth False Arformotero l 15 mcg/2 mL solution for nebulizatio n [generic] 06/20 Inactiv e 2024 99243 10221 0 Arformotero l 15 mcg/2 mL solution for nebulizatio n [generic] 15 mcg Inhalation Twice daily For copd/asthma/ interstitial lung disease 15 mcg 2024 Active 2024 98194 24786 0 Twice daily Inhala tion False Clonazepam 0.5 mg tablet [generic] 0.5mg By Mouth As Needed q12 hour PRN For anxiety 0.5mg 06/28 Inactiv e 2024 19143 95113 0 By Mouth False Colace 100 mg capsule 100 mg By Mouth Twice daily For Constipation 100 mg 2024 Active 2024 53926 07271 1 Twice daily By Mouth False Boost 0.04 gram-1 kcal/mL oral liquid 1 carton By Mouth 3 times a day For malnutrition 1 carton 06/27 Inactiv e 2024 29152 17944 9 3 times a day By Mouth False Amitriptyli ne 10 mg tablet [generic] 10mg By Mouth At bedtime along with 25 mg dose to equal 35mg For anxiety 10mg 2024 Active 2024 76250 82736 1 At bedtime By Mouth False Amitriptyli ne 25 mg tablet [generic] 06/26 Inactiv e 2024 78559 83174 1 Amitriptyli ne 25 mg tablet [generic] 25 mg By Mouth At bedtime Along with 10mg to equal 35mg. for anxiety 25 mg 2024 Active 2024 84032 05464 1 At bedtime By Mouth False Boost Breeze Nutritional 0.04 gram-1.05 kcal/mL oral liquid 237 ml By Mouth Twice daily Boost Breeze 237 ml oral liquids For Early satiety, low average meal intake - please record number of mL consumed 237 ml 2024 Active 2024 34542 33505 1 Twice daily By Mouth False Prosource [...] PRN For anxiety 0.5mg 2024 Active 2024 84214 73780 0 By Mouth False Betadine Swabsticks 10 % 1 scott Topical Twice daily to bilateral heels For stage 2 pressure injury 1 scott 2024 Active 2024 85200 98258 1 Twice daily Topica l False Problems [...] weight Temperature SpO2 Blood Sugar Pulse Respirations 35705 102 84132 9 83.00 mm[Hg] - Lying Down 170.00 mm[Hg] - Lying Down 98.20 Forehead Scan 98.00 % 86.00/ min 18.00/min 46087 102 41540 4 83.00 mm[Hg] - Sitting 170.00 mm[Hg] - Sitting 98.20 Tympanic 86.00/ min 18.00/min 56388 103 61504 5 98.20 Tympanic 50029 103 40748 3 80.00 mm[Hg] - Lying Down 164.00 mm[Hg] - Lying Down 91.00/ min 20.00/min 19921 103 62353 0 80.00 mm[Hg] - Sitting 164.00 mm[Hg] - Sitting 98.20 Tympanic 91.00/ min 18.00/min 05546 103 89978 7 91.00 % 20.00/min 68208 103 23193 3 94.00 % 18.00/min 68236 103 31815 9 61900 104 26383 6 80.00 mm[Hg] - Sitting 140.00 mm[Hg] - Sitting 98.10 Tympanic 94.00 % 64.00/ min 18.00/min 25713 104 39931 1 80.00 mm[Hg] - Sitting 140.00 mm[Hg] - Sitting 98.10 Tympanic 64.00/ min 18.00/min 93765 104 79862 0 80.00 mm[Hg] - Sitting 140.00 mm[Hg] - Sitting 98.10 Tympanic 64.00/ min 18.00/min 67572 104 18563 7 73.00 mm[Hg] - Sitting 136.00 mm[Hg] - Sitting 97.90 Forehead Scan 95.00 % 74.00/ min 16.00/min 51970 104 36977 8 73.00 mm[Hg] - Sitting 135.00 mm[Hg] - Sitting 98.20 Tympanic 74.00/ min 18.00/min 37861 104 33955 6 95.00 % 18.00/min 24775 104 66193 6 96.00 % 18.00/min 59540 104 79657 4 94.00 % 18.00/min 46772 104 50719 0 18.00/mi n 87490 105 16354 0 73.00 mm[Hg] - Sitting 135.00 mm[Hg] - Sitting 98.20 Tympanic 74.00/ min 18.00/min 83934 105 31713 6 73.00 mm[Hg] - Sitting 135.00 mm[Hg] - Sitting 98.20 Tympanic 74.00/ min 20.00/min 90802 105 69758 3 53.00 mm[Hg] - Sitting 126.00 mm[Hg] - Sitting 97.00 Tympanic 99.00 % 56.00/ min 20.00/min 43126 105 78482 6 93.00 % 20.00/min 80743 105 59815 8 94.00 % 20.00/min 74340 105 01184 3 97.00 % 18.00/min 02605 105 17831 9 96.00 % 18.00/min 25462 106 02445 0 67.00 mm[Hg] - Sitting 150.00 mm[Hg] - Sitting 98.80 Forehead Scan 97.00 % 58.00/ min 16.00/min 12791 107 09502 3 136.00 NI 84523 107 03489 0 59 NI 05388 107 20505 0 61.00 mm[Hg] - Sitting 144.00 mm[Hg] - Sitting 97.90 Tympanic 93.00 % 54.00/ min 16.00/min 62227 107 68050 1 95.00 % 18.00/min 42774 107 47044 0 18.00/mi n 09790 107 54866 6 63.00 mm[Hg] - Sitting 159.00 mm[Hg] - Sitting 60.00/ min 34956 107 05176 6 94.00 % 18.00/min 32780 107 76006 3 95.00 % 18.00/min 41909 108 38275 0 55.00 mm[Hg] - Sitting 127.00 mm[Hg] - Sitting 97.80 Tympanic 95.00 % 55.00/ min 16.00/min 72785 108 95239 8 96.00 % 77435 108 50679 4 95.00 % 20.00/min 92064 108 90734 0 96.00 % 20.00/min 74811 108 90022 2 96.00 % 20.00/min 54288 109 47590 0 63.00 mm[Hg] - Sitting 131.00 mm[Hg] - Sitting 98.70 Tympanic 96.00 % 54.00/ min 18.00/min 12206 109 97328 8 94.00 % 18.00/min 22448 109 27580 2 18.00/mi n 02887 109 90160 5 97.00 % 18.00/min 32901 109 2 96.00 % 18.00/min 76755 110 38373 0 55.00 mm[Hg] - Lying Down 137.00 mm[Hg] - Lying Down 97.00 Tympanic 93.00 % 63.00/ min 20.00/min 28570 110 03215 6 94.00 % 18.00/min 56860 110 54794 8 94.00 % 18.00/min 13828 110 53701 0 74.00 mm[Hg] - Sitting 161.00 mm[Hg] - Sitting 56.00/ min 00109 110 28792 1 94.00 % 18.00/min 60750 110 82591 6 18.00/mi n 79513 111 13498 9 74.00 mm[Hg] - Sitting 161.00 mm[Hg] - Sitting 97.80 Tympanic 92.00 % 56.00/ min 16.00/min 73634 111 15570 5 94.00 % 18.00/min 13645 111 98453 5 94.00 % 18.00/min 49310 111 35048 4 95.00 % 18.00/min 88897 111 94965 3 18.00/mi n 93840 112 58984 0 58.00 mm[Hg] - Sitting 138.00 mm[Hg] - Sitting 98.20 Tympanic 92.00 % 55.00/ min 16.00/min 20623 112 58469 7 95.00 % 20.00/min 03397 112 40541 7 95.00 % 20.00/min 73733 112 70697 5 95.00 % 18.00/min 66055 112 12803 0 18.00/mi n 55426 113 12518 0 50.00 mm[Hg] - Sitting 110.00 mm[Hg] - Sitting 97.70 Forehead Scan 94.00 % 54.00/ min 20.00/min 75930 113 92569 1 95.00 % 18.00/min 05216 113 01986 2 96.00 % 18.00/min 56228 113 17255 0 95.00 % 15.00/min 56169 113 93694 4 95.00 % 18.00/min Immunizations Vaccine Date Status Other 06/20/2024 Completed
--- OUTSIDE RECORDS SUMMARY | 2024-07-19 23:07 | External Medical Summary | Continuity Of Care Document ---
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 unit/0.1 mL intradermal injection solution [Tuberculin PPD] 0.1mL Intradermal Once daily For PPD 2nd Step Give 2nd Step PPD Day 1 and Read results Day 3 (schedule 7 days after 1st READ) 0.1mL 07/03 Active 2024 09065 68099 0 Once daily Intrad ermal False Tylenol 325 mg tablet 2 tabs By Mouth Every 4 hours as needed For Pain DO NOT EXCEED 3000 MG APAP/24 Hours 2 tabs 2024 Active 2024 63425 11592 0 Every 4 hours as needed By Mouth False Dulcolax (bisacodyl) 10 mg rectal suppository One Suppository per rectum PRN if Milk of Magnisia ineffective. Give on day 5 of no BM 1 sup 2024 Active 2024 57827 83439 1 Daily as needed Rectal False Fleet Enema 19 gram-7 gram/118 mL Administer per rectum PRN one time if dulcolax suppository not effective. Give on day 6 of no BM 1 2024 Active 2024 91563 46091 6 Daily as needed Rectal False Tylenol 325 mg tablet 2 tabs By Mouth Every 4 hours as needed For Fever >100 DO NOT EXCEED 3000 MG APAP/24 Hours 2 tabs 2024 Active 2024 12703 98530 0 Every 4 hours as needed By Mouth False Eliquis 5 mg tablet 5 mg By Mouth Twice daily For afib 5 mg 2024 Active 2024 51049 92507 1 Twice daily By Mouth False Ferrous sulfate 325 mg (65 mg iron) tablet [generic] 325 mg By Mouth Once daily For supplement 325 mg 2024 Active 2024 59687 54056 5 Once daily By Mouth False Magnesium oxide 400 mg (241.3 mg magnesium) tablet [generic] 400 mg By Mouth Once daily For supplement 400 mg 2024 Active 2024 75322 62053 2 Once daily By Mouth False Protonix 40 mg tablet,bozena yed release 40 mg By Mouth Once daily For GERD 40 mg 2024 Active 2024 20049 18255 1 Once daily By Mouth False Sotalol 120 mg tablet [generic] 120 mg By Mouth Twice daily For SVT 120 mg 2024 Active 2024 37142 25258 1 Twice daily By Mouth False Rosuvastati n 20 mg tablet [generic] 20 mg By Mouth Once daily For HLD 20 mg 2024 Active 2024 43322 09467 0 Once daily By Mouth False Arformotero l 15 mcg/2 mL solution for nebulizatio n [generic] 15 mcg Inhalation Twice daily For copd/asthma/ interstitial lung disease 15 mcg 06/20 Inactiv e 2024 58316 96241 0 Twice daily Inhala tion False Budesonide 0.5 mg/2 mL suspension for nebulizatio n [generic] 0.5 mg Inhalation Twice daily For copd/ asthma/ interstital lung disease 0.5 mg 2024 Active 2024 60920 01869 8 Twice daily Inhala tion False Furosemide 40 mg tablet [generic] 40 mg By Mouth Once daily For chronic diastolic CHF 40 mg 2024 Active 2024 16014 60743 0 Once daily By Mouth False Furosemide 40 mg tablet [generic] 40 mg By Mouth Once daily For chronic diastolic CHF 40 mg 2024 Active 2024 02364 96092 0 Once daily By Mouth False Ventolin HFA 90 mcg/actuati on aerosol inhaler 2 puff Inhalation Every 6 hours as needed For SOB/ wheeze 2 puff 2024 Active 2024 98322 56036 0 Every 6 hours as needed Inhala tion False Amitriptyli ne 25 mg tablet [generic] 25 mg By Mouth At bedtime For general anxiety disorder 25 mg 06/26 Inactiv e 2024 48593 83179 1 At bedtime By Mouth False Levothyroxi ne 125 mcg tablet [generic] 125 mcg By Mouth Once daily For hypothyroidis m 125 mcg 2024 Active 2024 94583 11481 0 Once daily By Mouth False Arformotero l 15 mcg/2 mL solution for nebulizatio n [generic] 06/20 Inactiv e 2024 98655 14385 0 Arformotero l 15 mcg/2 mL solution for nebulizatio n [generic] 15 mcg Inhalation Twice daily For copd/asthma/ interstitial lung disease 15 mcg 2024 Active 2024 17576 76599 0 Twice daily Inhala tion False Clonazepam 0.5 mg tablet [generic] 0.5mg By Mouth As Needed q12 hour PRN For anxiety 0.5mg 06/28 Inactiv e 2024 06705 31705 0 By Mouth False Colace 100 mg capsule 100 mg By Mouth Twice daily For Constipation 100 mg 2024 Active 2024 30220 50762 1 Twice daily By Mouth False Boost 0.04 gram-1 kcal/mL oral liquid 1 carton By Mouth 3 times a day For malnutrition 1 carton 06/27 Inactiv e 2024 21212 25645 9 3 times a day By Mouth False Amitriptyli ne 10 mg tablet [generic] 10mg By Mouth At bedtime along with 25 mg dose to equal 35mg For anxiety 10mg 2024 Active 2024 72357 87135 1 At bedtime By Mouth False Amitriptyli ne 25 mg tablet [generic] 06/26 Inactiv e 2024 94737 67812 1 Amitriptyli ne 25 mg tablet [generic] 25 mg By Mouth At bedtime Along with 10mg to equal 35mg. for anxiety 25 mg 2024 Active 2024 94620 30638 1 At bedtime By Mouth False Boost Breeze Nutritional 0.04 gram-1.05 kcal/mL oral liquid 237 ml By Mouth Twice daily Boost Breeze 237 ml oral liquids For Early satiety, low average meal intake - please record number of mL consumed 237 ml 2024 Active 2024 58187 75700 1 Twice daily By Mouth False Prosource [...] PRN For anxiety 0.5mg 2024 Active 2024 23343 04364 0 By Mouth False Betadine Swabsticks 10 % 1 scott Topical Twice daily to bilateral heels For stage 2 pressure injury 1 scott 2024 Active 2024 90757 74761 1 Twice daily Topica l False Problems [...] weight Temperature SpO2 Blood Sugar Pulse Respirations 79159 102 27954 9 83.00 mm[Hg] - Lying Down 170.00 mm[Hg] - Lying Down 98.20 Forehead Scan 98.00 % 86.00/ min 18.00/min 18970 102 99041 4 83.00 mm[Hg] - Sitting 170.00 mm[Hg] - Sitting 98.20 Tympanic 86.00/ min 18.00/min 03549 103 77564 5 98.20 Tympanic 26041 103 69335 3 80.00 mm[Hg] - Lying Down 164.00 mm[Hg] - Lying Down 91.00/ min 20.00/min 59037 103 25876 0 80.00 mm[Hg] - Sitting 164.00 mm[Hg] - Sitting 98.20 Tympanic 91.00/ min 18.00/min 82830 103 28418 7 91.00 % 20.00/min 81286 103 08084 3 94.00 % 18.00/min 15063 103 57772 9 78893 104 14107 6 80.00 mm[Hg] - Sitting 140.00 mm[Hg] - Sitting 98.10 Tympanic 94.00 % 64.00/ min 18.00/min 11123 104 27924 1 80.00 mm[Hg] - Sitting 140.00 mm[Hg] - Sitting 98.10 Tympanic 64.00/ min 18.00/min 87066 104 78521 0 80.00 mm[Hg] - Sitting 140.00 mm[Hg] - Sitting 98.10 Tympanic 64.00/ min 18.00/min 19882 104 68011 7 73.00 mm[Hg] - Sitting 136.00 mm[Hg] - Sitting 97.90 Forehead Scan 95.00 % 74.00/ min 16.00/min 03408 104 10219 8 73.00 mm[Hg] - Sitting 135.00 mm[Hg] - Sitting 98.20 Tympanic 74.00/ min 18.00/min 34931 104 78243 6 95.00 % 18.00/min 93715 104 61099 6 96.00 % 18.00/min 46399 104 72480 4 94.00 % 18.00/min 96183 104 81521 0 18.00/mi n 63373 105 12702 0 73.00 mm[Hg] - Sitting 135.00 mm[Hg] - Sitting 98.20 Tympanic 74.00/ min 18.00/min 38212 105 42288 6 73.00 mm[Hg] - Sitting 135.00 mm[Hg] - Sitting 98.20 Tympanic 74.00/ min 20.00/min 33071 105 63555 3 53.00 mm[Hg] - Sitting 126.00 mm[Hg] - Sitting 97.00 Tympanic 99.00 % 56.00/ min 20.00/min 43494 105 02531 6 93.00 % 20.00/min 44447 105 27575 8 94.00 % 20.00/min 94163 105 71858 3 97.00 % 18.00/min Immunizations Vaccine Date Status Other 06/20/2024 Completed
--- OUTSIDE RECORDS SUMMARY | 2024-07-19 23:08 | External Medical Summary | Continuity Of Care Document ---
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 unit/0.1 mL intradermal injection solution [Tuberculin PPD] 0.1mL Intradermal Once daily For PPD 2nd Step Give 2nd Step PPD Day 1 and Read results Day 3 (schedule 7 days after 1st READ) 0.1mL 07/03 Active 2024 58206 06502 0 Once daily Intrad ermal False Tylenol 325 mg tablet 2 tabs By Mouth Every 4 hours as needed For Pain DO NOT EXCEED 3000 MG APAP/24 Hours 2 tabs 2024 Active 2024 78348 52797 0 Every 4 hours as needed By Mouth False Dulcolax (bisacodyl) 10 mg rectal suppository One Suppository per rectum PRN if Milk of Magnisia ineffective. Give on day 5 of no BM 1 sup 2024 Active 2024 23285 35347 1 Daily as needed Rectal False Fleet Enema 19 gram-7 gram/118 mL Administer per rectum PRN one time if dulcolax suppository not effective. Give on day 6 of no BM 1 2024 Active 2024 13628 59218 6 Daily as needed Rectal False Tylenol 325 mg tablet 2 tabs By Mouth Every 4 hours as needed For Fever >100 DO NOT EXCEED 3000 MG APAP/24 Hours 2 tabs 2024 Active 2024 00313 47832 0 Every 4 hours as needed By Mouth False Eliquis 5 mg tablet 5 mg By Mouth Twice daily For afib 5 mg 2024 Active 2024 63551 69117 1 Twice daily By Mouth False Ferrous sulfate 325 mg (65 mg iron) tablet [generic] 325 mg By Mouth Once daily For supplement 325 mg 2024 Active 2024 90311 06472 5 Once daily By Mouth False Magnesium oxide 400 mg (241.3 mg magnesium) tablet [generic] 400 mg By Mouth Once daily For supplement 400 mg 2024 Active 2024 39000 16126 2 Once daily By Mouth False Protonix 40 mg tablet,bozena yed release 40 mg By Mouth Once daily For GERD 40 mg 2024 Active 2024 40783 33066 1 Once daily By Mouth False Sotalol 120 mg tablet [generic] 120 mg By Mouth Twice daily For SVT 120 mg 2024 Active 2024 74502 76259 1 Twice daily By Mouth False Rosuvastati n 20 mg tablet [generic] 20 mg By Mouth Once daily For HLD 20 mg 2024 Active 2024 81722 00988 0 Once daily By Mouth False Arformotero l 15 mcg/2 mL solution for nebulizatio n [generic] 15 mcg Inhalation Twice daily For copd/asthma/ interstitial lung disease 15 mcg 06/20 Inactiv e 2024 46489 55693 0 Twice daily Inhala tion False Budesonide 0.5 mg/2 mL suspension for nebulizatio n [generic] 0.5 mg Inhalation Twice daily For copd/ asthma/ interstital lung disease 0.5 mg 2024 Active 2024 78868 35959 8 Twice daily Inhala tion False Furosemide 40 mg tablet [generic] 40 mg By Mouth Once daily For chronic diastolic CHF 40 mg 2024 Active 2024 43485 65495 0 Once daily By Mouth False Furosemide 40 mg tablet [generic] 40 mg By Mouth Once daily For chronic diastolic CHF 40 mg 2024 Active 2024 51883 82539 0 Once daily By Mouth False Ventolin HFA 90 mcg/actuati on aerosol inhaler 2 puff Inhalation Every 6 hours as needed For SOB/ wheeze 2 puff 2024 Active 2024 85677 75606 0 Every 6 hours as needed Inhala tion False Amitriptyli ne 25 mg tablet [generic] 25 mg By Mouth At bedtime For general anxiety disorder 25 mg 06/26 Inactiv e 2024 37487 40562 1 At bedtime By Mouth False Levothyroxi ne 125 mcg tablet [generic] 125 mcg By Mouth Once daily For hypothyroidis m 125 mcg 2024 Active 2024 02389 95392 0 Once daily By Mouth False Arformotero l 15 mcg/2 mL solution for nebulizatio n [generic] 06/20 Inactiv e 2024 12571 69592 0 Arformotero l 15 mcg/2 mL solution for nebulizatio n [generic] 15 mcg Inhalation Twice daily For copd/asthma/ interstitial lung disease 15 mcg 2024 Active 2024 88922 54764 0 Twice daily Inhala tion False Clonazepam 0.5 mg tablet [generic] 0.5mg By Mouth As Needed q12 hour PRN For anxiety 0.5mg 2024 Active 2024 44355 55898 0 By Mouth False Colace 100 mg capsule 100 mg By Mouth Twice daily For Constipation 100 mg 2024 Active 2024 45729 00524 1 Twice daily By Mouth False Boost 0.04 gram-1 kcal/mL oral liquid 1 carton By Mouth 3 times a day For malnutrition 1 carton 06/27 Inactiv e 2024 39261 49242 9 3 times a day By Mouth False Amitriptyli ne 10 mg tablet [generic] 10mg By Mouth At bedtime along with 25 mg dose to equal 35mg For anxiety 10mg 2024 Active 2024 85816 18227 1 At bedtime By Mouth False Amitriptyli ne 25 mg tablet [generic] 06/26 Inactiv e 2024 63432 43554 1 Amitriptyli ne 25 mg tablet [generic] 25 mg By Mouth At bedtime Along with 10mg to equal 35mg. for anxiety 25 mg 2024 Active 2024 73937 14327 1 At bedtime By Mouth False Boost Breeze Nutritional 0.04 gram-1.05 kcal/mL oral liquid 237 ml By Mouth Twice daily Boost Breeze 237 ml oral liquids For Early satiety, low average meal intake - please record number of mL consumed 237 ml 2024 Active 2024 00230 91310 1 Twice daily By Mouth False Prosource [...] pressure injury 1 scott 2024 Active 2024 89617 86667 1 Twice daily Topica l False Problems [...] weight Temperature SpO2 Blood Sugar Pulse Respirations 45532 102 12980 9 83.00 mm[Hg] - Lying Down 170.00 mm[Hg] - Lying Down 98.20 Forehead Scan 98.00 % 86.00/ min 18.00/min 48379 102 40635 4 83.00 mm[Hg] - Sitting 170.00 mm[Hg] - Sitting 98.20 Tympanic 86.00/ min 18.00/min 51334 103 99247 5 98.20 Tympanic 39357 103 03419 3 80.00 mm[Hg] - Lying Down 164.00 mm[Hg] - Lying Down 91.00/ min 20.00/min 05200 103 58704 0 80.00 mm[Hg] - Sitting 164.00 mm[Hg] - Sitting 98.20 Tympanic 91.00/ min 18.00/min 04880 103 51692 7 91.00 % 20.00/min 68288 103 11114 3 94.00 % 18.00/min 58307 103 36756 9 58290 104 02770 6 80.00 mm[Hg] - Sitting 140.00 mm[Hg] - Sitting 98.10 Tympanic 94.00 % 64.00/ min 18.00/min 41159 104 48081 1 80.00 mm[Hg] - Sitting 140.00 mm[Hg] - Sitting 98.10 Tympanic 64.00/ min 18.00/min 47557 104 81090 0 80.00 mm[Hg] - Sitting 140.00 mm[Hg] - Sitting 98.10 Tympanic 64.00/ min 18.00/min 77927 104 85312 7 73.00 mm[Hg] - Sitting 136.00 mm[Hg] - Sitting 97.90 Forehead Scan 95.00 % 74.00/ min 16.00/min 23097 104 28051 8 73.00 mm[Hg] - Sitting 135.00 mm[Hg] - Sitting 98.20 Tympanic 74.00/ min 18.00/min 50645 104 62182 6 95.00 % 18.00/min 51168 104 87904 6 96.00 % 18.00/min 11454 104 98006 4 94.00 % 18.00/min 64375 104 22044 0 18.00/mi n 75641 105 86550 0 73.00 mm[Hg] - Sitting 135.00 mm[Hg] - Sitting 98.20 Tympanic 74.00/ min 18.00/min 51924 105 59018 6 73.00 mm[Hg] - Sitting 135.00 mm[Hg] - Sitting 98.20 Tympanic 74.00/ min 20.00/min 19587 105 51982 3 53.00 mm[Hg] - Sitting 126.00 mm[Hg] - Sitting 97.00 Tympanic 99.00 % 56.00/ min 20.00/min 58006 105 80583 6 93.00 % 20.00/min 65076 105 07694 8 94.00 % 20.00/min 94891 105 81431 3 97.00 % 18.00/min 94474 105 64635 9 96.00 % 18.00/min 05094 106 74755 0 67.00 mm[Hg] - Sitting 150.00 mm[Hg] - Sitting 98.80 Forehead Scan 97.00 % 58.00/ min 16.00/min 63723 107 48725 3 136.00 NI 65833 107 73888 0 59 NI 27550 107 95336 0 61.00 mm[Hg] - Sitting 144.00 mm[Hg] - Sitting 97.90 Tympanic 93.00 % 54.00/ min 16.00/min 99596 107 19522 1 95.00 % 18.00/min 19306 107 66958 0 18.00/mi n 80476 107 09019 6 63.00 mm[Hg] - Sitting 159.00 mm[Hg] - Sitting 60.00/ min 55146 107 39775 6 94.00 % 18.00/min 05634 107 24366 3 95.00 % 18.00/min 15028 108 51752 0 55.00 mm[Hg] - Sitting 127.00 mm[Hg] - Sitting 97.80 Tympanic 95.00 % 55.00/ min 16.00/min 33503 108 48205 8 96.00 % 06098 108 04537 4 95.00 % 20.00/min 32204 108 58746 0 96.00 % 20.00/min 96623 108 07940 2 96.00 % 20.00/min 62632 109 48779 8 94.00 % 18.00/min 78118 109 82155 2 18.00/mi n Immunizations Vaccine Date Status Other 06/20/2024 Completed
--- OUTSIDE RECORDS SUMMARY | 2024-07-19 23:08 | External Medical Summary | Continuity Of Care Document ---
Author Name Unknown Address [address] [address] Organization [facility] () Care Team Providers Care Signal Apprentice Name Role Phone DO Lopez Amy Primary Care Provider [phone] Allergies Allergy Reaction Start Date End Date [...] 3 0.1 mL 06/23 Inactiv e 2024 54106 48537 0 At bedtime Intrad ermal False Tubersol 5 tub. unit/0.1 mL intradermal injection solution [Tuberculin PPD] 0.1mL Intradermal Once daily For PPD 2nd Step Give 2nd Step PPD Day 1 and Read results Day 3 (schedule 7 days after 1st READ) 0.1mL 07/03 Active 2024 74864 84790 0 Once daily Intrad ermal False Tylenol 325 mg tablet 2 tabs By Mouth Every 4 hours as needed For Pain DO NOT EXCEED 3000 MG APAP/24 Hours 2 tabs 2024 Active 2024 04647 67111 0 Every 4 hours as needed By Mouth False Dulcolax (bisacodyl) 10 mg rectal suppository One Suppository per rectum PRN if Milk of Magnisia ineffective. Give on day 5 of no BM 1 sup 2024 Active 2024 86421 22077 1 Daily as needed Rectal False Fleet Enema 19 gram-7 gram/118 mL Administer per rectum PRN one time if dulcolax suppository not effective. Give on day 6 of no BM 1 2024 Active 2024 95330 36132 6 Daily as needed Rectal False Tylenol 325 mg tablet 2 tabs By Mouth Every 4 hours as needed For Fever >100 DO NOT EXCEED 3000 MG APAP/24 Hours 2 tabs 2024 Active 2024 69955 41755 0 Every 4 hours as needed By Mouth False Eliquis 5 mg tablet 5 mg By Mouth Twice daily For afib 5 mg 2024 Active 2024 27985 77569 1 Twice daily By Mouth False Ferrous sulfate 325 mg (65 mg iron) tablet [generic] 325 mg By Mouth Once daily For supplement 325 mg 2024 Active 2024 39443 59377 5 Once daily By Mouth False Magnesium oxide 400 mg (241.3 mg magnesium) tablet [generic] 400 mg By Mouth Once daily For supplement 400 mg 2024 Active 2024 58403 20630 2 Once daily By Mouth False Protonix 40 mg tablet,bozena yed release 40 mg By Mouth Once daily For GERD 40 mg 2024 Active 2024 88407 39058 1 Once daily By Mouth False Sotalol 120 mg tablet [generic] 120 mg By Mouth Twice daily For SVT 120 mg 2024 Active 2024 20262 85494 1 Twice daily By Mouth False Rosuvastati n 20 mg tablet [generic] 20 mg By Mouth Once daily For HLD 20 mg 2024 Active 2024 74895 90112 0 Once daily By Mouth False Arformotero l 15 mcg/2 mL solution for nebulizatio n [generic] 15 mcg Inhalation Twice daily For copd/asthma/ interstitial lung disease 15 mcg 06/20 Inactiv e 2024 74473 80477 0 Twice daily Inhala tion False Budesonide 0.5 mg/2 mL suspension for nebulizatio n [generic] 0.5 mg Inhalation Twice daily For copd/ asthma/ interstital lung disease 0.5 mg 2024 Active 2024 04384 56818 8 Twice daily Inhala tion False Furosemide 40 mg tablet [generic] 40 mg By Mouth Once daily For chronic diastolic CHF 40 mg 2024 Active 2024 38716 08624 0 Once daily By Mouth False Furosemide 40 mg tablet [generic] 40 mg By Mouth Once daily For chronic diastolic CHF 40 mg 2024 Active 2024 44934 11365 0 Once daily By Mouth False Ventolin HFA 90 mcg/actuati on aerosol inhaler 2 puff Inhalation Every 6 hours as needed For SOB/ wheeze 2 puff 2024 Active 2024 44039 89283 0 Every 6 hours as needed Inhala tion False Amitriptyli ne 25 mg tablet [generic] 25 mg By Mouth At bedtime For general anxiety disorder 25 mg 06/26 Inactiv e 2024 12677 74729 1 At bedtime By Mouth False Levothyroxi ne 125 mcg tablet [generic] 125 mcg By Mouth Once daily For hypothyroidis m 125 mcg 2024 Active 2024 31414 21623 0 Once daily By Mouth False Arformotero l 15 mcg/2 mL solution for nebulizatio n [generic] 06/20 Inactiv e 2024 07572 48760 0 Arformotero l 15 mcg/2 mL solution for nebulizatio n [generic] 15 mcg Inhalation Twice daily For copd/asthma/ interstitial lung disease 15 mcg 2024 Active 2024 51421 86885 0 Twice daily Inhala tion False Clonazepam 0.5 mg tablet [generic] 0.5mg By Mouth As Needed q12 hour PRN For anxiety 0.5mg 2024 Active 2024 49856 55047 0 By Mouth False Colace 100 mg capsule 100 mg By Mouth Twice daily For Constipation 100 mg 2024 Active 2024 97383 41129 1 Twice daily By Mouth False Boost 0.04 gram-1 kcal/mL oral liquid 1 carton By Mouth 3 times a day For malnutrition 1 carton 2024 Active 2024 87500 71651 9 3 times a day By Mouth False Amitriptyli ne 10 mg tablet [generic] 10mg By Mouth At bedtime along with 25 mg dose to equal 35mg For anxiety 10mg 2024 Active 2024 97480 81115 1 At bedtime By Mouth False Amitriptyli ne 25 mg tablet [generic] 06/26 Inactiv e 2024 63297 19049 1 Amitriptyli ne 25 mg tablet [generic] 25 mg By Mouth At bedtime Along with 10mg to equal 35mg. for anxiety 25 mg 2024 Active 2024 90662 29740 1 At bedtime By Mouth False Betadine Swabsticks 10 % 1 scott Topical Twice daily to bilateral heels For stage 2 pressure injury 1 scott 2024 Active 2024 77513 92789 1 Twice daily Topica l False Problems Code Description Start Date End Date Status R00.0 Tachycardia, unspecified 06/20/2024 Active N17.9 Acute kidney failure, unspecified 06/20/2024 Active E87.6 Hypokalemia 06/20/2024 Active E03.9 Hypothyroidism, unspecified 06/20/2024 Active E78.5 Hyperlipidemia, unspecified 06/20/2024 00 Active C73. Malignant neoplasm of thyroid gland [...] weight Temperature SpO2 Blood Sugar Pulse Respirations 73515 102 95422 9 83.00 mm[Hg] - Lying Down 170.00 mm[Hg] - Lying Down 98.20 Forehead Scan 98.00 % 86.00/ min 18.00/min 86947 102 38366 4 83.00 mm[Hg] - Sitting 170.00 mm[Hg] - Sitting 98.20 Tympanic 86.00/ min 18.00/min 96457 103 74673 5 98.20 Tympanic 80192 103 53316 3 80.00 mm[Hg] - Lying Down 164.00 mm[Hg] - Lying Down 91.00/ min 20.00/min 90500 103 57919 0 80.00 mm[Hg] - Sitting 164.00 mm[Hg] - Sitting 98.20 Tympanic 91.00/ min 18.00/min 59830 103 66209 7 91.00 % 20.00/min 47157 103 59475 3 94.00 % 18.00/min 35608 103 47644 9 87655 104 90253 6 80.00 mm[Hg] - Sitting 140.00 mm[Hg] - Sitting 98.10 Tympanic 94.00 % 64.00/ min 18.00/min 34436 104 73214 1 80.00 mm[Hg] - Sitting 140.00 mm[Hg] - Sitting 98.10 Tympanic 64.00/ min 18.00/min 72403 104 32584 0 80.00 mm[Hg] - Sitting 140.00 mm[Hg] - Sitting 98.10 Tympanic 64.00/ min 18.00/min 90989 104 79427 7 73.00 mm[Hg] - Sitting 136.00 mm[Hg] - Sitting 97.90 Forehead Scan 95.00 % 74.00/ min 16.00/min 02353 104 49790 8 73.00 mm[Hg] - Sitting 135.00 mm[Hg] - Sitting 98.20 Tympanic 74.00/ min 18.00/min 88910 104 19743 6 95.00 % 18.00/min 65491 104 51835 6 96.00 % 18.00/min 28311 104 70200 4 94.00 % 18.00/min 20747 104 84860 0 18.00/mi n 04980 105 34133 0 73.00 mm[Hg] - Sitting 135.00 mm[Hg] - Sitting 98.20 Tympanic 74.00/ min 18.00/min 21274 105 82673 6 73.00 mm[Hg] - Sitting 135.00 mm[Hg] - Sitting 98.20 Tympanic 74.00/ min 20.00/min 77528 105 38319 3 53.00 mm[Hg] - Sitting 126.00 mm[Hg] - Sitting 97.00 Tympanic 99.00 % 56.00/ min 20.00/min 24200 105 63378 6 93.00 % 20.00/min 18396 105 16239 8 94.00 % 20.00/min 96584 105 75429 3 97.00 % 18.00/min Immunizations Vaccine Date Status Other 06/20/2024 Completed
--- OUTSIDE RECORDS SUMMARY | 2024-07-19 23:08 | External Medical Summary | Continuity Of Care Document ---
Author Name Unknown Address [address] [address] Organization [facility] () Care Team Providers Care Contract Paralegal Name Role Phone DO Lopez Amy Primary Care Provider [phone] Allergies Allergy Reaction Start Date End Date [...] 3 0.1 mL 06/23 Inactiv e 2024 41385 09716 0 At bedtime Intrad ermal False Tubersol 5 tub. unit/0.1 mL intradermal injection solution [Tuberculin PPD] 0.1mL Intradermal Once daily For PPD 2nd Step Give 2nd Step PPD Day 1 and Read results Day 3 (schedule 7 days after 1st READ) 0.1mL 07/03 Active 2024 31282 22465 0 Once daily Intrad ermal False Tylenol 325 mg tablet 2 tabs By Mouth Every 4 hours as needed For Pain DO NOT EXCEED 3000 MG APAP/24 Hours 2 tabs 2024 Active 2024 80279 17975 0 Every 4 hours as needed By Mouth False Dulcolax (bisacodyl) 10 mg rectal suppository One Suppository per rectum PRN if Milk of Magnisia ineffective. Give on day 5 of no BM 1 sup 2024 Active 2024 24331 72642 1 Daily as needed Rectal False Fleet Enema 19 gram-7 gram/118 mL Administer per rectum PRN one time if dulcolax suppository not effective. Give on day 6 of no BM 1 2024 Active 2024 77463 29440 6 Daily as needed Rectal False Tylenol 325 mg tablet 2 tabs By Mouth Every 4 hours as needed For Fever >100 DO NOT EXCEED 3000 MG APAP/24 Hours 2 tabs 2024 Active 2024 04285 86825 0 Every 4 hours as needed By Mouth False Eliquis 5 mg tablet 5 mg By Mouth Twice daily For afib 5 mg 2024 Active 2024 90138 48988 1 Twice daily By Mouth False Ferrous sulfate 325 mg (65 mg iron) tablet [generic] 325 mg By Mouth Once daily For supplement 325 mg 2024 Active 2024 95126 91928 5 Once daily By Mouth False Magnesium oxide 400 mg (241.3 mg magnesium) tablet [generic] 400 mg By Mouth Once daily For supplement 400 mg 2024 Active 2024 68801 93049 2 Once daily By Mouth False Protonix 40 mg tablet,bozena yed release 40 mg By Mouth Once daily For GERD 40 mg 2024 Active 2024 38825 75149 1 Once daily By Mouth False Sotalol 120 mg tablet [generic] 120 mg By Mouth Twice daily For SVT 120 mg 2024 Active 2024 86752 67479 1 Twice daily By Mouth False Rosuvastati n 20 mg tablet [generic] 20 mg By Mouth Once daily For HLD 20 mg 2024 Active 2024 53038 14086 0 Once daily By Mouth False Arformotero l 15 mcg/2 mL solution for nebulizatio n [generic] 15 mcg Inhalation Twice daily For copd/asthma/ interstitial lung disease 15 mcg 06/20 Inactiv e 2024 18941 35750 0 Twice daily Inhala tion False Budesonide 0.5 mg/2 mL suspension for nebulizatio n [generic] 0.5 mg Inhalation Twice daily For copd/ asthma/ interstital lung disease 0.5 mg 2024 Active 2024 16782 21769 8 Twice daily Inhala tion False Furosemide 40 mg tablet [generic] 40 mg By Mouth Once daily For chronic diastolic CHF 40 mg 2024 Active 2024 05855 27900 0 Once daily By Mouth False Furosemide 40 mg tablet [generic] 40 mg By Mouth Once daily For chronic diastolic CHF 40 mg 2024 Active 2024 88836 81881 0 Once daily By Mouth False Ventolin HFA 90 mcg/actuati on aerosol inhaler 2 puff Inhalation Every 6 hours as needed For SOB/ wheeze 2 puff 2024 Active 2024 11404 73125 0 Every 6 hours as needed Inhala tion False Amitriptyli ne 25 mg tablet [generic] 25 mg By Mouth At bedtime For general anxiety disorder 25 mg 06/26 Inactiv e 2024 34282 62270 1 At bedtime By Mouth False Levothyroxi ne 125 mcg tablet [generic] 125 mcg By Mouth Once daily For hypothyroidis m 125 mcg 2024 Active 2024 31348 44713 0 Once daily By Mouth False Arformotero l 15 mcg/2 mL solution for nebulizatio n [generic] 06/20 Inactiv e 2024 36962 57432 0 Arformotero l 15 mcg/2 mL solution for nebulizatio n [generic] 15 mcg Inhalation Twice daily For copd/asthma/ interstitial lung disease 15 mcg 2024 Active 2024 94988 99736 0 Twice daily Inhala tion False Clonazepam 0.5 mg tablet [generic] 0.5mg By Mouth As Needed q12 hour PRN For anxiety 0.5mg 2024 Active 2024 70499 01203 0 By Mouth False Colace 100 mg capsule 100 mg By Mouth Twice daily For Constipation 100 mg 2024 Active 2024 33579 30426 1 Twice daily By Mouth False Boost 0.04 gram-1 kcal/mL oral liquid 1 carton By Mouth 3 times a day For malnutrition 1 carton 06/27 Inactiv e 2024 78772 15514 9 3 times a day By Mouth False Amitriptyli ne 10 mg tablet [generic] 10mg By Mouth At bedtime along with 25 mg dose to equal 35mg For anxiety 10mg 2024 Active 2024 27003 37938 1 At bedtime By Mouth False Amitriptyli ne 25 mg tablet [generic] 06/26 Inactiv e 2024 06594 77707 1 Amitriptyli ne 25 mg tablet [generic] 25 mg By Mouth At bedtime Along with 10mg to equal 35mg. for anxiety 25 mg 2024 Active 2024 82102 52615 1 At bedtime By Mouth False Boost Breeze Nutritional 0.04 gram-1.05 kcal/mL oral liquid 237 ml By Mouth Twice daily Boost Breeze 237 ml oral liquids For Early satiety, low average meal intake - please record number of mL consumed 237 ml 2024 Active 2024 49903 31056 1 Twice daily By Mouth False Prosource [...] pressure injury 1 scott 2024 Active 2024 66943 05020 1 Twice daily Topica l False Problems [...] weight Temperature SpO2 Blood Sugar Pulse Respirations 71744 102 61514 9 83.00 mm[Hg] - Lying Down 170.00 mm[Hg] - Lying Down 98.20 Forehead Scan 98.00 % 86.00/ min 18.00/min 40553 102 51317 4 83.00 mm[Hg] - Sitting 170.00 mm[Hg] - Sitting 98.20 Tympanic 86.00/ min 18.00/min 99843 103 04856 5 98.20 Tympanic 68596 103 70633 3 80.00 mm[Hg] - Lying Down 164.00 mm[Hg] - Lying Down 91.00/ min 20.00/min 23296 103 36688 0 80.00 mm[Hg] - Sitting 164.00 mm[Hg] - Sitting 98.20 Tympanic 91.00/ min 18.00/min 71888 103 03865 7 91.00 % 20.00/min 45202 103 23912 3 94.00 % 18.00/min 24104 103 96240 9 14062 104 88194 6 80.00 mm[Hg] - Sitting 140.00 mm[Hg] - Sitting 98.10 Tympanic 94.00 % 64.00/ min 18.00/min 07079 104 05611 1 80.00 mm[Hg] - Sitting 140.00 mm[Hg] - Sitting 98.10 Tympanic 64.00/ min 18.00/min 36086 104 33673 0 80.00 mm[Hg] - Sitting 140.00 mm[Hg] - Sitting 98.10 Tympanic 64.00/ min 18.00/min 59280 104 10744 7 73.00 mm[Hg] - Sitting 136.00 mm[Hg] - Sitting 97.90 Forehead Scan 95.00 % 74.00/ min 16.00/min 80617 104 30239 8 73.00 mm[Hg] - Sitting 135.00 mm[Hg] - Sitting 98.20 Tympanic 74.00/ min 18.00/min 76399 104 89528 6 95.00 % 18.00/min 60644 104 67496 6 96.00 % 18.00/min 05224 104 88570 4 94.00 % 18.00/min 75126 104 47280 0 18.00/mi n 06492 105 49721 0 73.00 mm[Hg] - Sitting 135.00 mm[Hg] - Sitting 98.20 Tympanic 74.00/ min 18.00/min 48436 105 18640 6 73.00 mm[Hg] - Sitting 135.00 mm[Hg] - Sitting 98.20 Tympanic 74.00/ min 20.00/min 85395 105 75487 3 53.00 mm[Hg] - Sitting 126.00 mm[Hg] - Sitting 97.00 Tympanic 99.00 % 56.00/ min 20.00/min 73190 105 45936 6 93.00 % 20.00/min 15884 105 57177 8 94.00 % 20.00/min 63480 105 64506 3 97.00 % 18.00/min 45553 105 45147 9 96.00 % 18.00/min 00156 106 35184 0 67.00 mm[Hg] - Sitting 150.00 mm[Hg] - Sitting 98.80 Forehead Scan 97.00 % 58.00/ min 16.00/min 91885 107 08840 3 136.00 NI 90363 107 91941 0 59 NI 98077 107 79023 0 61.00 mm[Hg] - Sitting 144.00 mm[Hg] - Sitting 97.90 Tympanic 93.00 % 54.00/ min 16.00/min 68969 107 46334 1 95.00 % 18.00/min 32177 107 08814 0 18.00/mi n 24000 107 78726 6 63.00 mm[Hg] - Sitting 159.00 mm[Hg] - Sitting 60.00/ min 35822 107 83183 6 94.00 % 18.00/min 91747 107 52372 3 95.00 % 18.00/min 29454 108 73069 0 55.00 mm[Hg] - Sitting 127.00 mm[Hg] - Sitting 97.80 Tympanic 95.00 % 55.00/ min 16.00/min 41371 108 73039 8 96.00 % 46652 108 22218 4 95.00 % 20.00/min 19755 108 46209 0 96.00 % 20.00/min 78680 108 35960 2 96.00 % 20.00/min 45385 109 59206 0 63.00 mm[Hg] - Sitting 131.00 mm[Hg] - Sitting 98.70 Tympanic 96.00 % 54.00/ min 18.00/min 56257 109 66696 8 94.00 % 18.00/min 14978 109 49204 2 18.00/mi n 60429 109 40227 5 97.00 % 18.00/min 43424 109 2 96.00 % 18.00/min Immunizations Vaccine Date Status Other 06/20/2024 Completed
--- OUTSIDE RECORDS SUMMARY | 2024-07-19 23:08 | External Medical Summary | Continuity Of Care Document ---
Author Name Unknown Address [address] [address] Organization [facility] () Care Team Providers Care Block Feeder Name Role Phone DO Lopez Amy Primary Care Provider [phone] Allergies Allergy Reaction Start Date End Date [...] 3 0.1 mL 06/23 Inactiv e 2024 19302 81795 0 At bedtime Intrad ermal False Tubersol 5 tub. unit/0.1 mL intradermal injection solution [Tuberculin PPD] 0.1mL Intradermal Once daily For PPD 2nd Step Give 2nd Step PPD Day 1 and Read results Day 3 (schedule 7 days after 1st READ) 0.1mL 07/03 Active 2024 37633 24692 0 Once daily Intrad ermal False Tylenol 325 mg tablet 2 tabs By Mouth Every 4 hours as needed For Pain DO NOT EXCEED 3000 MG APAP/24 Hours 2 tabs 2024 Active 2024 60917 16800 0 Every 4 hours as needed By Mouth False Dulcolax (bisacodyl) 10 mg rectal suppository One Suppository per rectum PRN if Milk of Magnisia ineffective. Give on day 5 of no BM 1 sup 2024 Active 2024 09652 58328 1 Daily as needed Rectal False Fleet Enema 19 gram-7 gram/118 mL Administer per rectum PRN one time if dulcolax suppository not effective. Give on day 6 of no BM 1 2024 Active 2024 48890 28675 6 Daily as needed Rectal False Tylenol 325 mg tablet 2 tabs By Mouth Every 4 hours as needed For Fever >100 DO NOT EXCEED 3000 MG APAP/24 Hours 2 tabs 2024 Active 2024 11234 34494 0 Every 4 hours as needed By Mouth False Eliquis 5 mg tablet 5 mg By Mouth Twice daily For afib 5 mg 2024 Active 2024 94092 58103 1 Twice daily By Mouth False Ferrous sulfate 325 mg (65 mg iron) tablet [generic] 325 mg By Mouth Once daily For supplement 325 mg 2024 Active 2024 35549 72930 5 Once daily By Mouth False Magnesium oxide 400 mg (241.3 mg magnesium) tablet [generic] 400 mg By Mouth Once daily For supplement 400 mg 2024 Active 2024 25550 25264 2 Once daily By Mouth False Protonix 40 mg tablet,bozena yed release 40 mg By Mouth Once daily For GERD 40 mg 2024 Active 2024 19886 29741 1 Once daily By Mouth False Sotalol 120 mg tablet [generic] 120 mg By Mouth Twice daily For SVT 120 mg 2024 Active 2024 89314 45082 1 Twice daily By Mouth False Rosuvastati n 20 mg tablet [generic] 20 mg By Mouth Once daily For HLD 20 mg 2024 Active 2024 86832 24700 0 Once daily By Mouth False Arformotero l 15 mcg/2 mL solution for nebulizatio n [generic] 15 mcg Inhalation Twice daily For copd/asthma/ interstitial lung disease 15 mcg 06/20 Inactiv e 2024 55527 28410 0 Twice daily Inhala tion False Budesonide 0.5 mg/2 mL suspension for nebulizatio n [generic] 0.5 mg Inhalation Twice daily For copd/ asthma/ interstital lung disease 0.5 mg 2024 Active 2024 53384 81785 8 Twice daily Inhala tion False Furosemide 40 mg tablet [generic] 40 mg By Mouth Once daily For chronic diastolic CHF 40 mg 2024 Active 2024 61243 16553 0 Once daily By Mouth False Furosemide 40 mg tablet [generic] 40 mg By Mouth Once daily For chronic diastolic CHF 40 mg 2024 Active 2024 85708 36817 0 Once daily By Mouth False Ventolin HFA 90 mcg/actuati on aerosol inhaler 2 puff Inhalation Every 6 hours as needed For SOB/ wheeze 2 puff 2024 Active 2024 02585 53130 0 Every 6 hours as needed Inhala tion False Amitriptyli ne 25 mg tablet [generic] 25 mg By Mouth At bedtime For general anxiety disorder 25 mg 06/26 Inactiv e 2024 23164 36624 1 At bedtime By Mouth False Levothyroxi ne 125 mcg tablet [generic] 125 mcg By Mouth Once daily For hypothyroidis m 125 mcg 2024 Active 2024 45019 67962 0 Once daily By Mouth False Arformotero l 15 mcg/2 mL solution for nebulizatio n [generic] 06/20 Inactiv e 2024 56669 69365 0 Arformotero l 15 mcg/2 mL solution for nebulizatio n [generic] 15 mcg Inhalation Twice daily For copd/asthma/ interstitial lung disease 15 mcg 2024 Active 2024 68933 51468 0 Twice daily Inhala tion False Clonazepam 0.5 mg tablet [generic] 0.5mg By Mouth As Needed q12 hour PRN For anxiety 0.5mg 06/28 Inactiv e 2024 29480 44904 0 By Mouth False Colace 100 mg capsule 100 mg By Mouth Twice daily For Constipation 100 mg 2024 Active 2024 96653 39676 1 Twice daily By Mouth False Boost 0.04 gram-1 kcal/mL oral liquid 1 carton By Mouth 3 times a day For malnutrition 1 carton 06/27 Inactiv e 2024 85373 73026 9 3 times a day By Mouth False Amitriptyli ne 10 mg tablet [generic] 10mg By Mouth At bedtime along with 25 mg dose to equal 35mg For anxiety 10mg 2024 Active 2024 81588 31635 1 At bedtime By Mouth False Amitriptyli ne 25 mg tablet [generic] 06/26 Inactiv e 2024 64777 99522 1 Amitriptyli ne 25 mg tablet [generic] 25 mg By Mouth At bedtime Along with 10mg to equal 35mg. for anxiety 25 mg 2024 Active 2024 13581 70116 1 At bedtime By Mouth False Boost Breeze Nutritional 0.04 gram-1.05 kcal/mL oral liquid 237 ml By Mouth Twice daily Boost Breeze 237 ml oral liquids For Early satiety, low average meal intake - please record number of mL consumed 237 ml 2024 Active 2024 18091 11028 1 Twice daily By Mouth False Prosource [...] PRN For anxiety 0.5mg 2024 Active 2024 92578 46874 0 By Mouth False Betadine Swabsticks 10 % 1 sctot Topical Twice daily to bilateral heels For stage 2 pressure injury 1 scott 2024 Active 2024 94366 42514 1 Twice daily Topica l False Problems [...] weight Temperature SpO2 Blood Sugar Pulse Respirations 52380 102 60186 9 83.00 mm[Hg] - Lying Down 170.00 mm[Hg] - Lying Down 98.20 Forehead Scan 98.00 % 86.00/ min 18.00/min 62305 102 94882 4 83.00 mm[Hg] - Sitting 170.00 mm[Hg] - Sitting 98.20 Tympanic 86.00/ min 18.00/min 32512 103 63625 5 98.20 Tympanic 93522 103 65155 3 80.00 mm[Hg] - Lying Down 164.00 mm[Hg] - Lying Down 91.00/ min 20.00/min 10237 103 89002 0 80.00 mm[Hg] - Sitting 164.00 mm[Hg] - Sitting 98.20 Tympanic 91.00/ min 18.00/min 63015 103 65352 7 91.00 % 20.00/min 11258 103 46618 3 94.00 % 18.00/min 96230 103 37703 9 39109 104 63403 6 80.00 mm[Hg] - Sitting 140.00 mm[Hg] - Sitting 98.10 Tympanic 94.00 % 64.00/ min 18.00/min 34441 104 68325 1 80.00 mm[Hg] - Sitting 140.00 mm[Hg] - Sitting 98.10 Tympanic 64.00/ min 18.00/min 45958 104 47861 0 80.00 mm[Hg] - Sitting 140.00 mm[Hg] - Sitting 98.10 Tympanic 64.00/ min 18.00/min 14229 104 72986 7 73.00 mm[Hg] - Sitting 136.00 mm[Hg] - Sitting 97.90 Forehead Scan 95.00 % 74.00/ min 16.00/min 42716 104 21756 8 73.00 mm[Hg] - Sitting 135.00 mm[Hg] - Sitting 98.20 Tympanic 74.00/ min 18.00/min 58393 104 34335 6 95.00 % 18.00/min 91054 104 75379 6 96.00 % 18.00/min 32213 104 63913 4 94.00 % 18.00/min 63991 104 73995 0 18.00/mi n 06980 105 35162 0 73.00 mm[Hg] - Sitting 135.00 mm[Hg] - Sitting 98.20 Tympanic 74.00/ min 18.00/min 06034 105 81896 6 73.00 mm[Hg] - Sitting 135.00 mm[Hg] - Sitting 98.20 Tympanic 74.00/ min 20.00/min 37685 105 20277 3 53.00 mm[Hg] - Sitting 126.00 mm[Hg] - Sitting 97.00 Tympanic 99.00 % 56.00/ min 20.00/min 09187 105 43819 6 93.00 % 20.00/min 03204 105 38018 8 94.00 % 20.00/min 56682 105 12882 3 97.00 % 18.00/min 06567 105 00196 9 96.00 % 18.00/min 97424 106 69553 0 67.00 mm[Hg] - Sitting 150.00 mm[Hg] - Sitting 98.80 Forehead Scan 97.00 % 58.00/ min 16.00/min 58227 107 58385 3 136.00 NI 61566 107 21905 0 59 NI 59791 107 63864 0 61.00 mm[Hg] - Sitting 144.00 mm[Hg] - Sitting 97.90 Tympanic 93.00 % 54.00/ min 16.00/min 97527 107 40915 1 95.00 % 18.00/min 75357 107 83696 0 18.00/mi n 72680 107 36094 6 63.00 mm[Hg] - Sitting 159.00 mm[Hg] - Sitting 60.00/ min 49920 107 80238 6 94.00 % 18.00/min 64163 107 17018 3 95.00 % 18.00/min 99266 108 24148 0 55.00 mm[Hg] - Sitting 127.00 mm[Hg] - Sitting 97.80 Tympanic 95.00 % 55.00/ min 16.00/min 05266 108 13864 8 96.00 % 04080 108 17946 4 95.00 % 20.00/min 05807 108 42001 0 96.00 % 20.00/min 03526 108 00027 2 96.00 % 20.00/min 17627 109 73194 0 63.00 mm[Hg] - Sitting 131.00 mm[Hg] - Sitting 98.70 Tympanic 96.00 % 54.00/ min 18.00/min 13440 109 66489 8 94.00 % 18.00/min 22199 109 97980 2 18.00/mi n 45189 109 45164 5 97.00 % 18.00/min 26920 109 09180 2 96.00 % 18.00/min 99187 110 97439 6 94.00 % 18.00/min 82371 110 45119 8 94.00 % 18.00/min Immunizations Vaccine Date Status Other 06/20/2024 Completed
--- OUTSIDE RECORDS SUMMARY | 2024-07-19 23:08 | External Medical Summary | Continuity Of Care Document ---
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 unit/0.1 mL intradermal injection solution [Tuberculin PPD] 0.1mL Intradermal Once daily For PPD 2nd Step Give 2nd Step PPD Day 1 and Read results Day 3 (schedule 7 days after 1st READ) 0.1mL 07/03 Active 2024 99992 70613 0 Once daily Intrad ermal False Tylenol 325 mg tablet 2 tabs By Mouth Every 4 hours as needed For Pain DO NOT EXCEED 3000 MG APAP/24 Hours 2 tabs 2024 Active 2024 68588 61252 0 Every 4 hours as needed By Mouth False Dulcolax (bisacodyl) 10 mg rectal suppository One Suppository per rectum PRN if Milk of Magnisia ineffective. Give on day 5 of no BM 1 sup 2024 Active 2024 38640 26591 1 Daily as needed Rectal False Fleet Enema 19 gram-7 gram/118 mL Administer per rectum PRN one time if dulcolax suppository not effective. Give on day 6 of no BM 1 2024 Active 2024 57414 94159 6 Daily as needed Rectal False Tylenol 325 mg tablet 2 tabs By Mouth Every 4 hours as needed For Fever >100 DO NOT EXCEED 3000 MG APAP/24 Hours 2 tabs 2024 Active 2024 78912 83539 0 Every 4 hours as needed By Mouth False Eliquis 5 mg tablet 5 mg By Mouth Twice daily For afib 5 mg 2024 Active 2024 30383 92581 1 Twice daily By Mouth False Ferrous sulfate 325 mg (65 mg iron) tablet [generic] 325 mg By Mouth Once daily For supplement 325 mg 2024 Active 2024 14935 76207 5 Once daily By Mouth False Magnesium oxide 400 mg (241.3 mg magnesium) tablet [generic] 400 mg By Mouth Once daily For supplement 400 mg 2024 Active 2024 32118 91270 2 Once daily By Mouth False Protonix 40 mg tablet,bozena yed release 40 mg By Mouth Once daily For GERD 40 mg 2024 Active 2024 25779 93392 1 Once daily By Mouth False Sotalol 120 mg tablet [generic] 120 mg By Mouth Twice daily For SVT 120 mg 2024 Active 2024 92394 49164 1 Twice daily By Mouth False Rosuvastati n 20 mg tablet [generic] 20 mg By Mouth Once daily For HLD 20 mg 2024 Active 2024 56301 64979 0 Once daily By Mouth False Arformotero l 15 mcg/2 mL solution for nebulizatio n [generic] 15 mcg Inhalation Twice daily For copd/asthma/ interstitial lung disease 15 mcg 06/20 Inactiv e 2024 80811 09787 0 Twice daily Inhala tion False Budesonide 0.5 mg/2 mL suspension for nebulizatio n [generic] 0.5 mg Inhalation Twice daily For copd/ asthma/ interstital lung disease 0.5 mg 2024 Active 2024 05076 51901 8 Twice daily Inhala tion False Furosemide 40 mg tablet [generic] 40 mg By Mouth Once daily For chronic diastolic CHF 40 mg 2024 Active 2024 00826 80871 0 Once daily By Mouth False Furosemide 40 mg tablet [generic] 40 mg By Mouth Once daily For chronic diastolic CHF 40 mg 2024 Active 2024 06143 08246 0 Once daily By Mouth False Ventolin HFA 90 mcg/actuati on aerosol inhaler 2 puff Inhalation Every 6 hours as needed For SOB/ wheeze 2 puff 2024 Active 2024 28790 92645 0 Every 6 hours as needed Inhala tion False Amitriptyli ne 25 mg tablet [generic] 25 mg By Mouth At bedtime For general anxiety disorder 25 mg 06/26 Inactiv e 2024 09152 76886 1 At bedtime By Mouth False Levothyroxi ne 125 mcg tablet [generic] 125 mcg By Mouth Once daily For hypothyroidis m 125 mcg 2024 Active 2024 20640 64289 0 Once daily By Mouth False Arformotero l 15 mcg/2 mL solution for nebulizatio n [generic] 06/20 Inactiv e 2024 73018 47521 0 Arformotero l 15 mcg/2 mL solution for nebulizatio n [generic] 15 mcg Inhalation Twice daily For copd/asthma/ interstitial lung disease 15 mcg 2024 Active 2024 91488 39224 0 Twice daily Inhala tion False Clonazepam 0.5 mg tablet [generic] 0.5mg By Mouth As Needed q12 hour PRN For anxiety 0.5mg 06/28 Inactiv e 2024 69760 17636 0 By Mouth False Colace 100 mg capsule 100 mg By Mouth Twice daily For Constipation 100 mg 2024 Active 2024 09347 74385 1 Twice daily By Mouth False Boost 0.04 gram-1 kcal/mL oral liquid 1 carton By Mouth 3 times a day For malnutrition 1 carton 06/27 Inactiv e 2024 79801 80467 9 3 times a day By Mouth False Amitriptyli ne 10 mg tablet [generic] 10mg By Mouth At bedtime along with 25 mg dose to equal 35mg For anxiety 10mg 2024 Active 2024 19970 15435 1 At bedtime By Mouth False Amitriptyli ne 25 mg tablet [generic] 06/26 Inactiv e 2024 78593 27580 1 Amitriptyli ne 25 mg tablet [generic] 25 mg By Mouth At bedtime Along with 10mg to equal 35mg. for anxiety 25 mg 2024 Active 2024 61814 19670 1 At bedtime By Mouth False Boost Breeze Nutritional 0.04 gram-1.05 kcal/mL oral liquid 237 ml By Mouth Twice daily Boost Breeze 237 ml oral liquids For Early satiety, low average meal intake - please record number of mL consumed 237 ml 2024 Active 2024 94464 44774 1 Twice daily By Mouth False Prosource [...] PRN For anxiety 0.5mg 2024 Active 2024 36198 16009 0 By Mouth False Betadine Swabsticks 10 % 1 scott Topical Twice daily to bilateral heels For stage 2 pressure injury 1 scott 2024 Active 2024 17494 35142 1 Twice daily Topica l False Problems [...] weight Temperature SpO2 Blood Sugar Pulse Respirations 75773 102 67494 9 83.00 mm[Hg] - Lying Down 170.00 mm[Hg] - Lying Down 98.20 Forehead Scan 98.00 % 86.00/ min 18.00/min 38929 102 17865 4 83.00 mm[Hg] - Sitting 170.00 mm[Hg] - Sitting 98.20 Tympanic 86.00/ min 18.00/min 76916 103 42677 5 98.20 Tympanic 47469 103 81926 3 80.00 mm[Hg] - Lying Down 164.00 mm[Hg] - Lying Down 91.00/ min 20.00/min 91639 103 46044 0 80.00 mm[Hg] - Sitting 164.00 mm[Hg] - Sitting 98.20 Tympanic 91.00/ min 18.00/min 63254 103 72782 7 91.00 % 20.00/min 91260 103 79890 3 94.00 % 18.00/min 81133 103 00447 9 29278 104 29668 6 80.00 mm[Hg] - Sitting 140.00 mm[Hg] - Sitting 98.10 Tympanic 94.00 % 64.00/ min 18.00/min 99867 104 48315 1 80.00 mm[Hg] - Sitting 140.00 mm[Hg] - Sitting 98.10 Tympanic 64.00/ min 18.00/min 50011 104 58498 0 80.00 mm[Hg] - Sitting 140.00 mm[Hg] - Sitting 98.10 Tympanic 64.00/ min 18.00/min 41351 104 13584 7 73.00 mm[Hg] - Sitting 136.00 mm[Hg] - Sitting 97.90 Forehead Scan 95.00 % 74.00/ min 16.00/min 03803 104 35007 8 73.00 mm[Hg] - Sitting 135.00 mm[Hg] - Sitting 98.20 Tympanic 74.00/ min 18.00/min 96679 104 85932 6 95.00 % 18.00/min 68267 104 92571 6 96.00 % 18.00/min 71411 104 76051 4 94.00 % 18.00/min 80558 104 14208 0 18.00/mi n 64581 105 69392 0 73.00 mm[Hg] - Sitting 135.00 mm[Hg] - Sitting 98.20 Tympanic 74.00/ min 18.00/min 86358 105 88331 6 73.00 mm[Hg] - Sitting 135.00 mm[Hg] - Sitting 98.20 Tympanic 74.00/ min 20.00/min 48772 105 84118 3 53.00 mm[Hg] - Sitting 126.00 mm[Hg] - Sitting 97.00 Tympanic 99.00 % 56.00/ min 20.00/min 88946 105 32349 6 93.00 % 20.00/min 10587 105 51471 8 94.00 % 20.00/min 04118 105 30773 3 97.00 % 18.00/min 20707 105 95033 9 96.00 % 18.00/min 96087 106 65777 0 67.00 mm[Hg] - Sitting 150.00 mm[Hg] - Sitting 98.80 Forehead Scan 97.00 % 58.00/ min 16.00/min 91904 107 77310 3 136.00 NI [id number] 107 53869 0 59 NI 26784 107 99879 0 61.00 mm[Hg] - Sitting 144.00 mm[Hg] - Sitting 97.90 Tympanic 93.00 % 54.00/ min 16.00/min 04455 107 90030 1 95.00 % 18.00/min 05515 107 69039 0 18.00/mi n 93998 107 91997 6 63.00 mm[Hg] - Sitting 159.00 mm[Hg] - Sitting 60.00/ min 04697 107 19197 6 94.00 % 18.00/min 79551 107 53576 3 95.00 % 18.00/min 13372 108 01341 0 55.00 mm[Hg] - Sitting 127.00 mm[Hg] - Sitting 97.80 Tympanic 95.00 % 55.00/ min 16.00/min 77334 108 59925 8 96.00 % 91712 108 42824 4 95.00 % 20.00/min 80926 108 23524 0 96.00 % 20.00/min 83210 108 69192 2 96.00 % 20.00/min 71808 109 10475 0 63.00 mm[Hg] - Sitting 131.00 mm[Hg] - Sitting 98.70 Tympanic 96.00 % 54.00/ min 18.00/min 73479 109 00565 8 94.00 % 18.00/min 75145 109 23787 2 18.00/mi n 63798 109 20226 5 97.00 % 18.00/min 67807 109 20429 2 96.00 % 18.00/min 51804 110 77662 6 94.00 % 18.00/min 64866 110 65817 8 94.00 % 18.00/min Immunizations Vaccine Date Status Other 06/20/2024 Completed
--- OUTSIDE RECORDS SUMMARY | 2024-07-19 23:08 | External Medical Summary | Continuity Of Care Document ---
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 unit/0.1 mL intradermal injection solution [Tuberculin PPD] 0.1mL Intradermal Once daily For PPD 2nd Step Give 2nd Step PPD Day 1 and Read results Day 3 (schedule 7 days after 1st READ) 0.1mL 07/03 Active 2024 08537 51616 0 Once daily Intrad ermal False Tylenol 325 mg tablet 2 tabs By Mouth Every 4 hours as needed For Pain DO NOT EXCEED 3000 MG APAP/24 Hours 2 tabs 2024 Active 2024 97363 35639 0 Every 4 hours as needed By Mouth False Dulcolax (bisacodyl) 10 mg rectal suppository One Suppository per rectum PRN if Milk of Magnisia ineffective. Give on day 5 of no BM 1 sup 2024 Active 2024 30582 41043 1 Daily as needed Rectal False Fleet Enema 19 gram-7 gram/118 mL Administer per rectum PRN one time if dulcolax suppository not effective. Give on day 6 of no BM 1 2024 Active 2024 21783 02851 6 Daily as needed Rectal False Tylenol 325 mg tablet 2 tabs By Mouth Every 4 hours as needed For Fever >100 DO NOT EXCEED 3000 MG APAP/24 Hours 2 tabs 2024 Active 2024 72481 12473 0 Every 4 hours as needed By Mouth False Eliquis 5 mg tablet 5 mg By Mouth Twice daily For afib 5 mg 2024 Active 2024 87478 22481 1 Twice daily By Mouth False Ferrous sulfate 325 mg (65 mg iron) tablet [generic] 325 mg By Mouth Once daily For supplement 325 mg 2024 Active 2024 51862 57079 5 Once daily By Mouth False Magnesium oxide 400 mg (241.3 mg magnesium) tablet [generic] 400 mg By Mouth Once daily For supplement 400 mg 2024 Active 2024 00214 47532 2 Once daily By Mouth False Protonix 40 mg tablet,bozena yed release 40 mg By Mouth Once daily For GERD 40 mg 2024 Active 2024 75205 58024 1 Once daily By Mouth False Sotalol 120 mg tablet [generic] 120 mg By Mouth Twice daily For SVT 120 mg 2024 Active 2024 00853 00398 1 Twice daily By Mouth False Rosuvastati n 20 mg tablet [generic] 20 mg By Mouth Once daily For HLD 20 mg 2024 Active 2024 33769 89206 0 Once daily By Mouth False Arformotero l 15 mcg/2 mL solution for nebulizatio n [generic] 15 mcg Inhalation Twice daily For copd/asthma/ interstitial lung disease 15 mcg 06/20 Inactiv e 2024 31200 26175 0 Twice daily Inhala tion False Budesonide 0.5 mg/2 mL suspension for nebulizatio n [generic] 0.5 mg Inhalation Twice daily For copd/ asthma/ interstital lung disease 0.5 mg 2024 Active 2024 84914 48051 8 Twice daily Inhala tion False Furosemide 40 mg tablet [generic] 40 mg By Mouth Once daily For chronic diastolic CHF 40 mg 2024 Active 2024 27291 64342 0 Once daily By Mouth False Furosemide 40 mg tablet [generic] 40 mg By Mouth Once daily For chronic diastolic CHF 40 mg 2024 Active 2024 71162 67792 0 Once daily By Mouth False Ventolin HFA 90 mcg/actuati on aerosol inhaler 2 puff Inhalation Every 6 hours as needed For SOB/ wheeze 2 puff 2024 Active 2024 53888 03236 0 Every 6 hours as needed Inhala tion False Amitriptyli ne 25 mg tablet [generic] 25 mg By Mouth At bedtime For general anxiety disorder 25 mg 06/26 Inactiv e 2024 14071 78797 1 At bedtime By Mouth False Levothyroxi ne 125 mcg tablet [generic] 125 mcg By Mouth Once daily For hypothyroidis m 125 mcg 2024 Active 2024 45987 30922 0 Once daily By Mouth False Arformotero l 15 mcg/2 mL solution for nebulizatio n [generic] 06/20 Inactiv e 2024 89915 99994 0 Arformotero l 15 mcg/2 mL solution for nebulizatio n [generic] 15 mcg Inhalation Twice daily For copd/asthma/ interstitial lung disease 15 mcg 2024 Active 2024 92628 06995 0 Twice daily Inhala tion False Clonazepam 0.5 mg tablet [generic] 0.5mg By Mouth As Needed q12 hour PRN For anxiety 0.5mg 2024 Active 2024 34209 35461 0 By Mouth False Colace 100 mg capsule 100 mg By Mouth Twice daily For Constipation 100 mg 2024 Active 2024 32912 90727 1 Twice daily By Mouth False Boost 0.04 gram-1 kcal/mL oral liquid 1 carton By Mouth 3 times a day For malnutrition 1 carton 06/27 Inactiv e 2024 91117 54439 9 3 times a day By Mouth False Amitriptyli ne 10 mg tablet [generic] 10mg By Mouth At bedtime along with 25 mg dose to equal 35mg For anxiety 10mg 2024 Active 2024 67436 67745 1 At bedtime By Mouth False Amitriptyli ne 25 mg tablet [generic] 06/26 Inactiv e 2024 15051 46618 1 Amitriptyli ne 25 mg tablet [generic] 25 mg By Mouth At bedtime Along with 10mg to equal 35mg. for anxiety 25 mg 2024 Active 2024 54099 05163 1 At bedtime By Mouth False Boost Breeze Nutritional 0.04 gram-1.05 kcal/mL oral liquid 237 ml By Mouth Twice daily Boost Breeze 237 ml oral liquids For Early satiety, low average meal intake - please record number of mL consumed 237 ml 2024 Active 2024 39744 70063 1 Twice daily By Mouth False Prosource [...] pressure injury 1 scott 2024 Active 2024 47824 06691 1 Twice daily Topica l False Problems [...] weight Temperature SpO2 Blood Sugar Pulse Respirations 44949 102 19511 9 83.00 mm[Hg] - Lying Down 170.00 mm[Hg] - Lying Down 98.20 Forehead Scan 98.00 % 86.00/ min 18.00/min 76162 102 07751 4 83.00 mm[Hg] - Sitting 170.00 mm[Hg] - Sitting 98.20 Tympanic 86.00/ min 18.00/min 15434 103 90164 5 98.20 Tympanic 61432 103 59881 3 80.00 mm[Hg] - Lying Down 164.00 mm[Hg] - Lying Down 91.00/ min 20.00/min 60489 103 36013 0 80.00 mm[Hg] - Sitting 164.00 mm[Hg] - Sitting 98.20 Tympanic 91.00/ min 18.00/min 61347 103 23463 7 91.00 % 20.00/min 78371 103 08238 3 94.00 % 18.00/min 36518 103 31949 9 83191 104 33999 6 80.00 mm[Hg] - Sitting 140.00 mm[Hg] - Sitting 98.10 Tympanic 94.00 % 64.00/ min 18.00/min 34551 104 82823 1 80.00 mm[Hg] - Sitting 140.00 mm[Hg] - Sitting 98.10 Tympanic 64.00/ min 18.00/min 18341 104 02824 0 80.00 mm[Hg] - Sitting 140.00 mm[Hg] - Sitting 98.10 Tympanic 64.00/ min 18.00/min 30962 104 30838 7 73.00 mm[Hg] - Sitting 136.00 mm[Hg] - Sitting 97.90 Forehead Scan 95.00 % 74.00/ min 16.00/min 59020 104 08908 8 73.00 mm[Hg] - Sitting 135.00 mm[Hg] - Sitting 98.20 Tympanic 74.00/ min 18.00/min 54978 104 19986 6 95.00 % 18.00/min 15713 104 81766 6 96.00 % 18.00/min 54567 104 82145 4 94.00 % 18.00/min 66469 104 59537 0 18.00/mi n 73942 105 35367 0 73.00 mm[Hg] - Sitting 135.00 mm[Hg] - Sitting 98.20 Tympanic 74.00/ min 18.00/min 16991 105 14492 6 73.00 mm[Hg] - Sitting 135.00 mm[Hg] - Sitting 98.20 Tympanic 74.00/ min 20.00/min 68759 105 49152 3 53.00 mm[Hg] - Sitting 126.00 mm[Hg] - Sitting 97.00 Tympanic 99.00 % 56.00/ min 20.00/min 03452 105 88697 6 93.00 % 20.00/min 08887 105 72501 8 94.00 % 20.00/min 58900 105 89327 3 97.00 % 18.00/min 87398 105 21136 9 96.00 % 18.00/min 15631 106 05697 0 67.00 mm[Hg] - Sitting 150.00 mm[Hg] - Sitting 98.80 Forehead Scan 97.00 % 58.00/ min 16.00/min 35982 107 78098 3 136.00 NI 59597 107 72981 0 59 NI 67726 107 38639 0 61.00 mm[Hg] - Sitting 144.00 mm[Hg] - Sitting 97.90 Tympanic 93.00 % 54.00/ min 16.00/min 83414 107 07154 1 95.00 % 18.00/min 34283 107 07918 0 18.00/mi n 25531 107 33048 6 63.00 mm[Hg] - Sitting 159.00 mm[Hg] - Sitting 60.00/ min 78612 107 44854 6 94.00 % 18.00/min 49581 107 07978 3 95.00 % 18.00/min 01054 108 41642 0 55.00 mm[Hg] - Sitting 127.00 mm[Hg] - Sitting 97.80 Tympanic 95.00 % 55.00/ min 16.00/min 14335 108 24875 8 96.00 % 34071 108 52583 4 95.00 % 20.00/min 52541 108 95743 0 96.00 % 20.00/min 15192 108 87852 2 96.00 % 20.00/min 71749 109 23346 0 63.00 mm[Hg] - Sitting 131.00 mm[Hg] - Sitting 98.70 Tympanic 96.00 % 54.00/ min 18.00/min 05498 109 75565 8 94.00 % 18.00/min 48121 109 25548 2 18.00/mi n 36424 109 72225 5 97.00 % 18.00/min 85047 109 2 96.00 % 18.00/min 32743 110 74240 6 94.00 % 18.00/min 15212 110 48767 8 94.00 % 18.00/min Immunizations Vaccine Date Status Other 06/20/2024 Completed
--- OUTSIDE RECORDS SUMMARY | 2024-07-19 23:08 | External Medical Summary | Continuity Of Care Document ---
Author Name Unknown Address [address] [address] Organization [facility] () Care Team Providers Care Job Developer For Deaf Adults Name Role Phone DO Lopez Amy Primary Care Provider [phone] Allergies Allergy Reaction Start Date End Date [...] 3 0.1 mL 06/23 Inactiv e 2024 10106 07442 0 At bedtime Intrad ermal False Tubersol 5 tub. unit/0.1 mL intradermal injection solution [Tuberculin PPD] 0.1mL Intradermal Once daily For PPD 2nd Step Give 2nd Step PPD Day 1 and Read results Day 3 (schedule 7 days after 1st READ) 0.1mL 07/03 Active 2024 92662 68600 0 Once daily Intrad ermal False Tylenol 325 mg tablet 2 tabs By Mouth Every 4 hours as needed For Pain DO NOT EXCEED 3000 MG APAP/24 Hours 2 tabs 2024 Active 2024 90183 64604 0 Every 4 hours as needed By Mouth False Dulcolax (bisacodyl) 10 mg rectal suppository One Suppository per rectum PRN if Milk of Magnisia ineffective. Give on day 5 of no BM 1 sup 2024 Active 2024 19107 91719 1 Daily as needed Rectal False Fleet Enema 19 gram-7 gram/118 mL Administer per rectum PRN one time if dulcolax suppository not effective. Give on day 6 of no BM 1 2024 Active 2024 95473 68189 6 Daily as needed Rectal False Tylenol 325 mg tablet 2 tabs By Mouth Every 4 hours as needed For Fever >100 DO NOT EXCEED 3000 MG APAP/24 Hours 2 tabs 2024 Active 2024 33213 91857 0 Every 4 hours as needed By Mouth False Eliquis 5 mg tablet 5 mg By Mouth Twice daily For afib 5 mg 2024 Active 2024 66675 68883 1 Twice daily By Mouth False Ferrous sulfate 325 mg (65 mg iron) tablet [generic] 325 mg By Mouth Once daily For supplement 325 mg 2024 Active 2024 43547 21290 5 Once daily By Mouth False Magnesium oxide 400 mg (241.3 mg magnesium) tablet [generic] 400 mg By Mouth Once daily For supplement 400 mg 2024 Active 2024 36102 73269 2 Once daily By Mouth False Protonix 40 mg tablet,bozena yed release 40 mg By Mouth Once daily For GERD 40 mg 2024 Active 2024 79597 76354 1 Once daily By Mouth False Sotalol 120 mg tablet [generic] 120 mg By Mouth Twice daily For SVT 120 mg 2024 Active 2024 91312 70694 1 Twice daily By Mouth False Rosuvastati n 20 mg tablet [generic] 20 mg By Mouth Once daily For HLD 20 mg 2024 Active 2024 63832 03159 0 Once daily By Mouth False Arformotero l 15 mcg/2 mL solution for nebulizatio n [generic] 15 mcg Inhalation Twice daily For copd/asthma/ interstitial lung disease 15 mcg 06/20 Inactiv e 2024 56676 14398 0 Twice daily Inhala tion False Budesonide 0.5 mg/2 mL suspension for nebulizatio n [generic] 0.5 mg Inhalation Twice daily For copd/ asthma/ interstital lung disease 0.5 mg 2024 Active 2024 29735 92913 8 Twice daily Inhala tion False Furosemide 40 mg tablet [generic] 40 mg By Mouth Once daily For chronic diastolic CHF 40 mg 2024 Active 2024 84514 68308 0 Once daily By Mouth False Furosemide 40 mg tablet [generic] 40 mg By Mouth Once daily For chronic diastolic CHF 40 mg 2024 Active 2024 93128 23093 0 Once daily By Mouth False Ventolin HFA 90 mcg/actuati on aerosol inhaler 2 puff Inhalation Every 6 hours as needed For SOB/ wheeze 2 puff 2024 Active 2024 29015 77041 0 Every 6 hours as needed Inhala tion False Amitriptyli ne 25 mg tablet [generic] 25 mg By Mouth At bedtime For general anxiety disorder 25 mg 06/26 Inactiv e 2024 38452 31732 1 At bedtime By Mouth False Levothyroxi ne 125 mcg tablet [generic] 125 mcg By Mouth Once daily For hypothyroidis m 125 mcg 2024 Active 2024 89467 84348 0 Once daily By Mouth False Arformotero l 15 mcg/2 mL solution for nebulizatio n [generic] 06/20 Inactiv e 2024 67178 85693 0 Arformotero l 15 mcg/2 mL solution for nebulizatio n [generic] 15 mcg Inhalation Twice daily For copd/asthma/ interstitial lung disease 15 mcg 2024 Active 2024 60041 91875 0 Twice daily Inhala tion False Clonazepam 0.5 mg tablet [generic] 0.5mg By Mouth As Needed q12 hour PRN For anxiety 0.5mg 2024 Active 2024 27392 60152 0 By Mouth False Colace 100 mg capsule 100 mg By Mouth Twice daily For Constipation 100 mg 2024 Active 2024 87536 01759 1 Twice daily By Mouth False Boost 0.04 gram-1 kcal/mL oral liquid 1 carton By Mouth 3 times a day For malnutrition 1 carton 2024 Active 2024 09790 12798 9 3 times a day By Mouth False Amitriptyli ne 10 mg tablet [generic] 10mg By Mouth At bedtime along with 25 mg dose to equal 35mg For anxiety 10mg 2024 Active 2024 75677 15071 1 At bedtime By Mouth False Amitriptyli ne 25 mg tablet [generic] 06/26 Inactiv e 2024 86294 95866 1 Amitriptyli ne 25 mg tablet [generic] 25 mg By Mouth At bedtime Along with 10mg to equal 35mg. for anxiety 25 mg 2024 Active 2024 42857 94981 1 At bedtime By Mouth False Betadine Swabsticks 10 % 1 scott Topical Twice daily to bilateral heels For stage 2 pressure injury 1 scott 2024 Active 2024 53230 62453 1 Twice daily Topica l False Problems [...] weight Temperature SpO2 Blood Sugar Pulse Respirations 29144 102 30341 9 83.00 mm[Hg] - Lying Down 170.00 mm[Hg] - Lying Down 98.20 Forehead Scan 98.00 % 86.00/ min 18.00/min 02360 102 96338 4 83.00 mm[Hg] - Sitting 170.00 mm[Hg] - Sitting 98.20 Tympanic 86.00/ min 18.00/min 44775 103 15593 5 98.20 Tympanic 71527 103 57685 3 80.00 mm[Hg] - Lying Down 164.00 mm[Hg] - Lying Down 91.00/ min 20.00/min 40950 103 45253 0 80.00 mm[Hg] - Sitting 164.00 mm[Hg] - Sitting 98.20 Tympanic 91.00/ min 18.00/min 59846 103 28068 7 91.00 % 20.00/min 63749 103 41375 3 94.00 % 18.00/min 71001 103 20352 9 33556 104 41318 6 80.00 mm[Hg] - Sitting 140.00 mm[Hg] - Sitting 98.10 Tympanic 94.00 % 64.00/ min 18.00/min 15737 104 23258 1 80.00 mm[Hg] - Sitting 140.00 mm[Hg] - Sitting 98.10 Tympanic 64.00/ min 18.00/min 37532 104 29016 0 80.00 mm[Hg] - Sitting 140.00 mm[Hg] - Sitting 98.10 Tympanic 64.00/ min 18.00/min 53503 104 29436 7 73.00 mm[Hg] - Sitting 136.00 mm[Hg] - Sitting 97.90 Forehead Scan 95.00 % 74.00/ min 16.00/min 40875 104 99320 8 73.00 mm[Hg] - Sitting 135.00 mm[Hg] - Sitting 98.20 Tympanic 74.00/ min 18.00/min 35009 104 39341 6 95.00 % 18.00/min 73648 104 62915 6 96.00 % 18.00/min 70690 104 34685 4 94.00 % 18.00/min 70609 104 51580 0 18.00/mi n 99283 105 66677 0 73.00 mm[Hg] - Sitting 135.00 mm[Hg] - Sitting 98.20 Tympanic 74.00/ min 18.00/min 94115 105 82003 6 73.00 mm[Hg] - Sitting 135.00 mm[Hg] - Sitting 98.20 Tympanic 74.00/ min 20.00/min 93315 105 44683 3 53.00 mm[Hg] - Sitting 126.00 mm[Hg] - Sitting 97.00 Tympanic 99.00 % 56.00/ min 20.00/min 43095 105 42018 6 93.00 % 20.00/min 11266 105 38269 8 94.00 % 20.00/min 36632 105 29380 3 97.00 % 18.00/min 29533 105 95257 9 96.00 % 18.00/min 75070 106 61632 0 67.00 mm[Hg] - Sitting 150.00 mm[Hg] - Sitting 98.80 Forehead Scan 97.00 % 58.00/ min 16.00/min 88371 107 23653 3 136.00 NI 98374 107 43798 0 59 NI 22622 107 13340 0 61.00 mm[Hg] - Sitting 144.00 mm[Hg] - Sitting 97.90 Tympanic 93.00 % 54.00/ min 16.00/min 81302 107 56295 1 95.00 % 18.00/min 28240 107 35653 0 18.00/mi n 68377 107 70263 6 63.00 mm[Hg] - Sitting 159.00 mm[Hg] - Sitting 60.00/ min 58385 107 53882 6 94.00 % 18.00/min 89590 107 82510 3 95.00 % 18.00/min 27167 108 86414 0 55.00 mm[Hg] - Sitting 127.00 mm[Hg] - Sitting 97.80 Tympanic 95.00 % 55.00/ min 16.00/min 05564 108 82594 8 96.00 % 42728 108 70412 4 95.00 % 20.00/min 36196 108 18401 0 96.00 % 20.00/min 47551 108 76682 2 96.00 % 20.00/min 45958 109 91890 8 94.00 % 18.00/min 67735 109 95454 2 18.00/mi n Immunizations Vaccine Date Status Other 06/20/2024 Completed
--- OUTSIDE RECORDS SUMMARY | 2024-07-19 23:08 | External Medical Summary | Continuity Of Care Document ---
Author Name Unknown Address [address] [address] Organization [facility] () Care Team Providers Care Hand Trimmer Name Role Phone DO Lopez Amy Primary Care Provider [phone] Allergies Allergy Reaction Start Date End Date [...] 3 0.1 mL 06/23 Inactiv e 2024 03690 74637 0 At bedtime Intrad ermal False Tubersol 5 tub. unit/0.1 mL intradermal injection solution [Tuberculin PPD] 0.1mL Intradermal Once daily For PPD 2nd Step Give 2nd Step PPD Day 1 and Read results Day 3 (schedule 7 days after 1st READ) 0.1mL 07/03 Active 2024 03401 20676 0 Once daily Intrad ermal False Tylenol 325 mg tablet 2 tabs By Mouth Every 4 hours as needed For Pain DO NOT EXCEED 3000 MG APAP/24 Hours 2 tabs 2024 Active 2024 80695 96322 0 Every 4 hours as needed By Mouth False Dulcolax (bisacodyl) 10 mg rectal suppository One Suppository per rectum PRN if Milk of Magnisia ineffective. Give on day 5 of no BM 1 sup 2024 Active 2024 92722 03601 1 Daily as needed Rectal False Fleet Enema 19 gram-7 gram/118 mL Administer per rectum PRN one time if dulcolax suppository not effective. Give on day 6 of no BM 1 2024 Active 2024 39735 82088 6 Daily as needed Rectal False Tylenol 325 mg tablet 2 tabs By Mouth Every 4 hours as needed For Fever >100 DO NOT EXCEED 3000 MG APAP/24 Hours 2 tabs 2024 Active 2024 44589 34107 0 Every 4 hours as needed By Mouth False Eliquis 5 mg tablet 5 mg By Mouth Twice daily For afib 5 mg 2024 Active 2024 63037 85739 1 Twice daily By Mouth False Ferrous sulfate 325 mg (65 mg iron) tablet [generic] 325 mg By Mouth Once daily For supplement 325 mg 2024 Active 2024 71740 12025 5 Once daily By Mouth False Magnesium oxide 400 mg (241.3 mg magnesium) tablet [generic] 400 mg By Mouth Once daily For supplement 400 mg 2024 Active 2024 36121 34179 2 Once daily By Mouth False Protonix 40 mg tablet,bozena yed release 40 mg By Mouth Once daily For GERD 40 mg 2024 Active 2024 62001 31250 1 Once daily By Mouth False Sotalol 120 mg tablet [generic] 120 mg By Mouth Twice daily For SVT 120 mg 2024 Active 2024 02618 77292 1 Twice daily By Mouth False Rosuvastati n 20 mg tablet [generic] 20 mg By Mouth Once daily For HLD 20 mg 2024 Active 2024 22846 40722 0 Once daily By Mouth False Arformotero l 15 mcg/2 mL solution for nebulizatio n [generic] 15 mcg Inhalation Twice daily For copd/asthma/ interstitial lung disease 15 mcg 06/20 Inactiv e 2024 92422 90078 0 Twice daily Inhala tion False Budesonide 0.5 mg/2 mL suspension for nebulizatio n [generic] 0.5 mg Inhalation Twice daily For copd/ asthma/ interstital lung disease 0.5 mg 2024 Active 2024 40662 23739 8 Twice daily Inhala tion False Furosemide 40 mg tablet [generic] 40 mg By Mouth Once daily For chronic diastolic CHF 40 mg 2024 Active 2024 81101 37083 0 Once daily By Mouth False Furosemide 40 mg tablet [generic] 40 mg By Mouth Once daily For chronic diastolic CHF 40 mg 2024 Active 2024 78766 41862 0 Once daily By Mouth False Ventolin HFA 90 mcg/actuati on aerosol inhaler 2 puff Inhalation Every 6 hours as needed For SOB/ wheeze 2 puff 2024 Active 2024 98044 60941 0 Every 6 hours as needed Inhala tion False Amitriptyli ne 25 mg tablet [generic] 25 mg By Mouth At bedtime For general anxiety disorder 25 mg 06/26 Inactiv e 2024 65849 58305 1 At bedtime By Mouth False Levothyroxi ne 125 mcg tablet [generic] 125 mcg By Mouth Once daily For hypothyroidis m 125 mcg 2024 Active 2024 95343 38308 0 Once daily By Mouth False Arformotero l 15 mcg/2 mL solution for nebulizatio n [generic] 06/20 Inactiv e 2024 10107 46342 0 Arformotero l 15 mcg/2 mL solution for nebulizatio n [generic] 15 mcg Inhalation Twice daily For copd/asthma/ interstitial lung disease 15 mcg 2024 Active 2024 96443 48121 0 Twice daily Inhala tion False Clonazepam 0.5 mg tablet [generic] 0.5mg By Mouth As Needed q12 hour PRN For anxiety 0.5mg 2024 Active 2024 71942 79950 0 By Mouth False Colace 100 mg capsule 100 mg By Mouth Twice daily For Constipation 100 mg 2024 Active 2024 20014 01983 1 Twice daily By Mouth False Boost 0.04 gram-1 kcal/mL oral liquid 1 carton By Mouth 3 times a day For malnutrition 1 carton 06/27 Inactiv e 2024 52918 92600 9 3 times a day By Mouth False Amitriptyli ne 10 mg tablet [generic] 10mg By Mouth At bedtime along with 25 mg dose to equal 35mg For anxiety 10mg 2024 Active 2024 08176 25396 1 At bedtime By Mouth False Amitriptyli ne 25 mg tablet [generic] 06/26 Inactiv e 2024 60007 87339 1 Amitriptyli ne 25 mg tablet [generic] 25 mg By Mouth At bedtime Along with 10mg to equal 35mg. for anxiety 25 mg 2024 Active 2024 49431 88288 1 At bedtime By Mouth False Boost Breeze Nutritional 0.04 gram-1.05 kcal/mL oral liquid 237 ml By Mouth Twice daily Boost Breeze 237 ml oral liquids For Early satiety, low average meal intake - please record number of mL consumed 237 ml 2024 Active 2024 41271 89019 1 Twice daily By Mouth False Prosource [...] pressure injury 1 scott 2024 Active 2024 42367 93315 1 Twice daily Topica l False Problems [...] weight Temperature SpO2 Blood Sugar Pulse Respirations 48845 102 60263 9 83.00 mm[Hg] - Lying Down 170.00 mm[Hg] - Lying Down 98.20 Forehead Scan 98.00 % 86.00/ min 18.00/min 60530 102 09552 4 83.00 mm[Hg] - Sitting 170.00 mm[Hg] - Sitting 98.20 Tympanic 86.00/ min 18.00/min 74085 103 55182 5 98.20 Tympanic 00107 103 07143 3 80.00 mm[Hg] - Lying Down 164.00 mm[Hg] - Lying Down 91.00/ min 20.00/min 87025 103 47226 0 80.00 mm[Hg] - Sitting 164.00 mm[Hg] - Sitting 98.20 Tympanic 91.00/ min 18.00/min 08934 103 50381 7 91.00 % 20.00/min 68232 103 15049 3 94.00 % 18.00/min 87514 103 90871 9 99573 104 53714 6 80.00 mm[Hg] - Sitting 140.00 mm[Hg] - Sitting 98.10 Tympanic 94.00 % 64.00/ min 18.00/min 17693 104 34811 1 80.00 mm[Hg] - Sitting 140.00 mm[Hg] - Sitting 98.10 Tympanic 64.00/ min 18.00/min 15417 104 48556 0 80.00 mm[Hg] - Sitting 140.00 mm[Hg] - Sitting 98.10 Tympanic 64.00/ min 18.00/min 51556 104 35320 7 73.00 mm[Hg] - Sitting 136.00 mm[Hg] - Sitting 97.90 Forehead Scan 95.00 % 74.00/ min 16.00/min 30068 104 58094 8 73.00 mm[Hg] - Sitting 135.00 mm[Hg] - Sitting 98.20 Tympanic 74.00/ min 18.00/min 48486 104 19173 6 95.00 % 18.00/min 65368 104 16856 6 96.00 % 18.00/min 18711 104 51379 4 94.00 % 18.00/min 44208 104 76984 0 18.00/mi n 46772 105 20889 0 73.00 mm[Hg] - Sitting 135.00 mm[Hg] - Sitting 98.20 Tympanic 74.00/ min 18.00/min 81879 105 45074 6 73.00 mm[Hg] - Sitting 135.00 mm[Hg] - Sitting 98.20 Tympanic 74.00/ min 20.00/min 15427 105 01003 3 53.00 mm[Hg] - Sitting 126.00 mm[Hg] - Sitting 97.00 Tympanic 99.00 % 56.00/ min 20.00/min 39821 105 50676 6 93.00 % 20.00/min Immunizations Vaccine Date Status Other 06/20/2024 Completed
--- OUTSIDE RECORDS SUMMARY | 2024-07-19 23:08 | External Medical Summary | Continuity Of Care Document ---
Author Name Unknown Address [address] [facility] () Care Team Providers Care Nutrition Director Name Role Phone DO Lopez Amy Primary Care Provider [phone] Allergies Allergy Reaction Start Date End Date [...] 3 0.1 mL 06/23 Inactiv e 2024 24521 83732 0 At bedtime Intrad ermal False Tubersol 5 tub. unit/0.1 mL intradermal injection solution [Tuberculin PPD] 0.1mL Intradermal Once daily For PPD 2nd Step Give 2nd Step PPD Day 1 and Read results Day 3 (schedule 7 days after 1st READ) 0.1mL 07/03 Active 2024 65030 21675 0 Once daily Intrad ermal False Tylenol 325 mg tablet 2 tabs By Mouth Every 4 hours as needed For Pain DO NOT EXCEED 3000 MG APAP/24 Hours 2 tabs 2024 Active 2024 36585 33239 0 Every 4 hours as needed By Mouth False Dulcolax (bisacodyl) 10 mg rectal suppository One Suppository per rectum PRN if Milk of Magnisia ineffective. Give on day 5 of no BM 1 sup 2024 Active 2024 36995 65691 1 Daily as needed Rectal False Fleet Enema 19 gram-7 gram/118 mL Administer per rectum PRN one time if dulcolax suppository not effective. Give on day 6 of no BM 1 2024 Active 2024 07398 63225 6 Daily as needed Rectal False Tylenol 325 mg tablet 2 tabs By Mouth Every 4 hours as needed For Fever >100 DO NOT EXCEED 3000 MG APAP/24 Hours 2 tabs 2024 Active 2024 16622 56684 0 Every 4 hours as needed By Mouth False Eliquis 5 mg tablet 5 mg By Mouth Twice daily For afib 5 mg 2024 Active 2024 69177 34004 1 Twice daily By Mouth False Ferrous sulfate 325 mg (65 mg iron) tablet [generic] 325 mg By Mouth Once daily For supplement 325 mg 2024 Active 2024 70741 10773 5 Once daily By Mouth False Magnesium oxide 400 mg (241.3 mg magnesium) tablet [generic] 400 mg By Mouth Once daily For supplement 400 mg 2024 Active 2024 56719 01704 2 Once daily By Mouth False Protonix 40 mg tablet,bozena yed release 40 mg By Mouth Once daily For GERD 40 mg 2024 Active 2024 25761 06881 1 Once daily By Mouth False Sotalol 120 mg tablet [generic] 120 mg By Mouth Twice daily For SVT 120 mg 2024 Active 2024 21787 87019 1 Twice daily By Mouth False Rosuvastati n 20 mg tablet [generic] 20 mg By Mouth Once daily For HLD 20 mg 2024 Active 2024 20621 48934 0 Once daily By Mouth False Arformotero l 15 mcg/2 mL solution for nebulizatio n [generic] 15 mcg Inhalation Twice daily For copd/asthma/ interstitial lung disease 15 mcg 06/20 Inactiv e 2024 31047 01429 0 Twice daily Inhala tion False Budesonide 0.5 mg/2 mL suspension for nebulizatio n [generic] 0.5 mg Inhalation Twice daily For copd/ asthma/ interstital lung disease 0.5 mg 2024 Active 2024 93380 50783 8 Twice daily Inhala tion False Furosemide 40 mg tablet [generic] 40 mg By Mouth Once daily For chronic diastolic CHF 40 mg 2024 Active 2024 20998 95398 0 Once daily By Mouth False Furosemide 40 mg tablet [generic] 40 mg By Mouth Once daily For chronic diastolic CHF 40 mg 2024 Active 2024 67361 22112 0 Once daily By Mouth False Ventolin HFA 90 mcg/actuati on aerosol inhaler 2 puff Inhalation Every 6 hours as needed For SOB/ wheeze 2 puff 2024 Active 2024 09685 34157 0 Every 6 hours as needed Inhala tion False Amitriptyli ne 25 mg tablet [generic] 25 mg By Mouth At bedtime For general anxiety disorder 25 mg 06/26 Inactiv e 2024 81500 04177 1 At bedtime By Mouth False Levothyroxi ne 125 mcg tablet [generic] 125 mcg By Mouth Once daily For hypothyroidis m 125 mcg 2024 Active 2024 24684 59813 0 Once daily By Mouth False Arformotero l 15 mcg/2 mL solution for nebulizatio n [generic] 06/20 Inactiv e 2024 27109 96238 0 Arformotero l 15 mcg/2 mL solution for nebulizatio n [generic] 15 mcg Inhalation Twice daily For copd/asthma/ interstitial lung disease 15 mcg 2024 Active 2024 25033 43133 0 Twice daily Inhala tion False Clonazepam 0.5 mg tablet [generic] 0.5mg By Mouth As Needed q12 hour PRN For anxiety 0.5mg 06/28 Inactiv e 2024 37021 30765 0 By Mouth False Colace 100 mg capsule 100 mg By Mouth Twice daily For Constipation 100 mg 2024 Active 2024 56244 75182 1 Twice daily By Mouth False Boost 0.04 gram-1 kcal/mL oral liquid 1 carton By Mouth 3 times a day For malnutrition 1 carton 06/27 Inactiv e 2024 99537 80541 9 3 times a day By Mouth False Amitriptyli ne 10 mg tablet [generic] 10mg By Mouth At bedtime along with 25 mg dose to equal 35mg For anxiety 10mg 2024 Active 2024 99482 57489 1 At bedtime By Mouth False Amitriptyli ne 25 mg tablet [generic] 06/26 Inactiv e 2024 81622 34183 1 Amitriptyli ne 25 mg tablet [generic] 25 mg By Mouth At bedtime Along with 10mg to equal 35mg. for anxiety 25 mg 2024 Active 2024 18952 64509 1 At bedtime By Mouth False Boost Breeze Nutritional 0.04 gram-1.05 kcal/mL oral liquid 237 ml By Mouth Twice daily Boost Breeze 237 ml oral liquids For Early satiety, low average meal intake - please record number of mL consumed 237 ml 2024 Active 2024 77317 49526 1 Twice daily By Mouth False Prosource [...] PRN For anxiety 0.5mg 2024 Active 2024 65325 33392 0 By Mouth False Betadine Swabsticks 10 % 1 scott Topical Twice daily to bilateral heels For stage 2 pressure injury 1 scott 2024 Active 2024 77754 24079 1 Twice daily Topica l False Problems [...] weight Temperature SpO2 Blood Sugar Pulse Respirations 95183 102 86145 9 83.00 mm[Hg] - Lying Down 170.00 mm[Hg] - Lying Down 98.20 Forehead Scan 98.00 % 86.00/ min 18.00/min 41258 102 15539 4 83.00 mm[Hg] - Sitting 170.00 mm[Hg] - Sitting 98.20 Tympanic 86.00/ min 18.00/min 54643 103 45129 5 98.20 Tympanic 98003 103 07978 3 80.00 mm[Hg] - Lying Down 164.00 mm[Hg] - Lying Down 91.00/ min 20.00/min 34593 103 66540 0 80.00 mm[Hg] - Sitting 164.00 mm[Hg] - Sitting 98.20 Tympanic 91.00/ min 18.00/min 77810 103 93861 7 91.00 % 20.00/min 59291 103 76846 3 94.00 % 18.00/min 43783 103 14033 9 35111 104 80223 6 80.00 mm[Hg] - Sitting 140.00 mm[Hg] - Sitting 98.10 Tympanic 94.00 % 64.00/ min 18.00/min 06112 104 11906 1 80.00 mm[Hg] - Sitting 140.00 mm[Hg] - Sitting 98.10 Tympanic 64.00/ min 18.00/min 63897 104 39804 0 80.00 mm[Hg] - Sitting 140.00 mm[Hg] - Sitting 98.10 Tympanic 64.00/ min 18.00/min 28397 104 07097 7 73.00 mm[Hg] - Sitting 136.00 mm[Hg] - Sitting 97.90 Forehead Scan 95.00 % 74.00/ min 16.00/min 41844 104 44605 8 73.00 mm[Hg] - Sitting 135.00 mm[Hg] - Sitting 98.20 Tympanic 74.00/ min 18.00/min 53179 104 02711 6 95.00 % 18.00/min 88120 104 10330 6 96.00 % 18.00/min 60588 104 65719 4 94.00 % 18.00/min 62089 104 85517 0 18.00/mi n 89966 105 28124 0 73.00 mm[Hg] - Sitting 135.00 mm[Hg] - Sitting 98.20 Tympanic 74.00/ min 18.00/min 97165 105 82916 6 73.00 mm[Hg] - Sitting 135.00 mm[Hg] - Sitting 98.20 Tympanic 74.00/ min 20.00/min 57374 105 89350 3 53.00 mm[Hg] - Sitting 126.00 mm[Hg] - Sitting 97.00 Tympanic 99.00 % 56.00/ min 20.00/min 91427 105 20521 6 93.00 % 20.00/min 06981 105 34216 8 94.00 % 20.00/min 65480 105 46193 3 97.00 % 18.00/min 84883 105 94629 9 96.00 % 18.00/min 34141 106 39164 0 67.00 mm[Hg] - Sitting 150.00 mm[Hg] - Sitting 98.80 Forehead Scan 97.00 % 58.00/ min 16.00/min 33985 107 81853 3 136.00 NI 03708 107 75342 0 59 NI 27818 107 76669 0 61.00 mm[Hg] - Sitting 144.00 mm[Hg] - Sitting 97.90 Tympanic 93.00 % 54.00/ min 16.00/min 43988 107 87625 1 95.00 % 18.00/min 23680 107 65410 0 18.00/mi n 68485 107 44348 6 63.00 mm[Hg] - Sitting 159.00 mm[Hg] - Sitting 60.00/ min 63185 107 85446 6 94.00 % 18.00/min 63532 107 57908 3 95.00 % 18.00/min 22558 108 40115 0 55.00 mm[Hg] - Sitting 127.00 mm[Hg] - Sitting 97.80 Tympanic 95.00 % 55.00/ min 16.00/min 41292 108 39215 8 96.00 % 20716 108 56748 4 95.00 % 20.00/min 38898 108 60911 0 96.00 % 20.00/min 27391 108 19837 2 96.00 % 20.00/min 81772 109 02787 0 63.00 mm[Hg] - Sitting 131.00 mm[Hg] - Sitting 98.70 Tympanic 96.00 % 54.00/ min 18.00/min 85699 109 28625 8 94.00 % 18.00/min 95565 109 32239 2 18.00/mi n 63342 109 16833 5 97.00 % 18.00/min 61176 109 35430 2 96.00 % 18.00/min 75864 110 35982 6 94.00 % 18.00/min 98262 110 97075 8 94.00 % 18.00/min Immunizations Vaccine Date Status Other 06/20/2024 Completed
--- OUTSIDE RECORDS SUMMARY | 2024-07-19 23:08 | External Medical Summary | Continuity Of Care Document ---
Author Name Unknown Address [address] [address] Organization [facility] () Care Team Providers Care Vertical Contour Band Saw Operator Name Role Phone DO Lopez Amy Primary Care Provider [phone] Allergies Allergy Reaction Start Date End Date [...] 3 0.1 mL 06/23 Inactiv e 2024 20791 35609 0 At bedtime Intrad ermal False Tubersol 5 tub. unit/0.1 mL intradermal injection solution [Tuberculin PPD] 0.1mL Intradermal Once daily For PPD 2nd Step Give 2nd Step PPD Day 1 and Read results Day 3 (schedule 7 days after 1st READ) 0.1mL 07/03 Active 2024 96703 09907 0 Once daily Intrad ermal False Tylenol 325 mg tablet 2 tabs By Mouth Every 4 hours as needed For Pain DO NOT EXCEED 3000 MG APAP/24 Hours 2 tabs 2024 Active 2024 18407 17839 0 Every 4 hours as needed By Mouth False Dulcolax (bisacodyl) 10 mg rectal suppository One Suppository per rectum PRN if Milk of Magnisia ineffective. Give on day 5 of no BM 1 sup 2024 Active 2024 07410 18603 1 Daily as needed Rectal False Fleet Enema 19 gram-7 gram/118 mL Administer per rectum PRN one time if dulcolax suppository not effective. Give on day 6 of no BM 1 2024 Active 2024 49574 66524 6 Daily as needed Rectal False Tylenol 325 mg tablet 2 tabs By Mouth Every 4 hours as needed For Fever >100 DO NOT EXCEED 3000 MG APAP/24 Hours 2 tabs 2024 Active 2024 65629 31713 0 Every 4 hours as needed By Mouth False Eliquis 5 mg tablet 5 mg By Mouth Twice daily For afib 5 mg 2024 Active 2024 80283 95660 1 Twice daily By Mouth False Ferrous sulfate 325 mg (65 mg iron) tablet [generic] 325 mg By Mouth Once daily For supplement 325 mg 2024 Active 2024 52206 01917 5 Once daily By Mouth False Magnesium oxide 400 mg (241.3 mg magnesium) tablet [generic] 400 mg By Mouth Once daily For supplement 400 mg 2024 Active 2024 82233 78292 2 Once daily By Mouth False Protonix 40 mg tablet,bozena yed release 40 mg By Mouth Once daily For GERD 40 mg 2024 Active 2024 77419 36278 1 Once daily By Mouth False Sotalol 120 mg tablet [generic] 120 mg By Mouth Twice daily For SVT 120 mg 2024 Active 2024 01714 42950 1 Twice daily By Mouth False Rosuvastati n 20 mg tablet [generic] 20 mg By Mouth Once daily For HLD 20 mg 2024 Active 2024 90417 31955 0 Once daily By Mouth False Arformotero l 15 mcg/2 mL solution for nebulizatio n [generic] 15 mcg Inhalation Twice daily For copd/asthma/ interstitial lung disease 15 mcg 06/20 Inactiv e 2024 41937 89110 0 Twice daily Inhala tion False Budesonide 0.5 mg/2 mL suspension for nebulizatio n [generic] 0.5 mg Inhalation Twice daily For copd/ asthma/ interstital lung disease 0.5 mg 2024 Active 2024 59765 66493 8 Twice daily Inhala tion False Furosemide 40 mg tablet [generic] 40 mg By Mouth Once daily For chronic diastolic CHF 40 mg 2024 Active 2024 63175 06100 0 Once daily By Mouth False Furosemide 40 mg tablet [generic] 40 mg By Mouth Once daily For chronic diastolic CHF 40 mg 2024 Active 2024 76505 94164 0 Once daily By Mouth False Ventolin HFA 90 mcg/actuati on aerosol inhaler 2 puff Inhalation Every 6 hours as needed For SOB/ wheeze 2 puff 2024 Active 2024 71867 14821 0 Every 6 hours as needed Inhala tion False Amitriptyli ne 25 mg tablet [generic] 25 mg By Mouth At bedtime For general anxiety disorder 25 mg 06/26 Inactiv e 2024 63899 42256 1 At bedtime By Mouth False Levothyroxi ne 125 mcg tablet [generic] 125 mcg By Mouth Once daily For hypothyroidis m 125 mcg 2024 Active 2024 21577 50383 0 Once daily By Mouth False Arformotero l 15 mcg/2 mL solution for nebulizatio n [generic] 06/20 Inactiv e 2024 40141 72278 0 Arformotero l 15 mcg/2 mL solution for nebulizatio n [generic] 15 mcg Inhalation Twice daily For copd/asthma/ interstitial lung disease 15 mcg 2024 Active 2024 98875 39959 0 Twice daily Inhala tion False Clonazepam 0.5 mg tablet [generic] 0.5mg By Mouth As Needed q12 hour PRN For anxiety 0.5mg 2024 Active 2024 06446 87641 0 By Mouth False Colace 100 mg capsule 100 mg By Mouth Twice daily For Constipation 100 mg 2024 Active 2024 12651 04940 1 Twice daily By Mouth False Boost 0.04 gram-1 kcal/mL oral liquid 1 carton By Mouth 3 times a day For malnutrition 1 carton 2024 Active 2024 90954 16087 9 3 times a day By Mouth False Amitriptyli ne 10 mg tablet [generic] 10mg By Mouth At bedtime along with 25 mg dose to equal 35mg For anxiety 10mg 2024 Active 2024 32658 08512 1 At bedtime By Mouth False Amitriptyli ne 25 mg tablet [generic] 06/26 Inactiv e 2024 60753 65327 1 Amitriptyli ne 25 mg tablet [generic] 25 mg By Mouth At bedtime Along with 10mg to equal 35mg. for anxiety 25 mg 2024 Active 2024 25024 61000 1 At bedtime By Mouth False Betadine Swabsticks 10 % 1 scott Topical Twice daily to bilateral heels For stage 2 pressure injury 1 scott 2024 Active 2024 53027 34090 1 Twice daily Topica l False Problems [...] weight Temperature SpO2 Blood Sugar Pulse Respirations 80518 102 03795 9 83.00 mm[Hg] - Lying Down 170.00 mm[Hg] - Lying Down 98.20 Forehead Scan 98.00 % 86.00/ min 18.00/min 63334 102 64344 4 83.00 mm[Hg] - Sitting 170.00 mm[Hg] - Sitting 98.20 Tympanic 86.00/ min 18.00/min 73137 103 47357 5 98.20 Tympanic 97555 103 40759 3 80.00 mm[Hg] - Lying Down 164.00 mm[Hg] - Lying Down 91.00/ min 20.00/min 01781 103 78263 0 80.00 mm[Hg] - Sitting 164.00 mm[Hg] - Sitting 98.20 Tympanic 91.00/ min 18.00/min 31457 103 07660 7 91.00 % 20.00/min 73129 103 91684 3 94.00 % 18.00/min 57100 103 66405 9 69264 104 44413 6 80.00 mm[Hg] - Sitting 140.00 mm[Hg] - Sitting 98.10 Tympanic 94.00 % 64.00/ min 18.00/min 99347 104 26533 1 80.00 mm[Hg] - Sitting 140.00 mm[Hg] - Sitting 98.10 Tympanic 64.00/ min 18.00/min 58259 104 93354 0 80.00 mm[Hg] - Sitting 140.00 mm[Hg] - Sitting 98.10 Tympanic 64.00/ min 18.00/min 94296 104 96173 7 73.00 mm[Hg] - Sitting 136.00 mm[Hg] - Sitting 97.90 Forehead Scan 95.00 % 74.00/ min 16.00/min 58465 104 45088 8 73.00 mm[Hg] - Sitting 135.00 mm[Hg] - Sitting 98.20 Tympanic 74.00/ min 18.00/min 99591 104 86708 6 95.00 % 18.00/min 30271 104 95746 6 96.00 % 18.00/min 92360 104 02894 4 94.00 % 18.00/min 07190 104 30189 0 18.00/mi n 47077 105 48602 0 73.00 mm[Hg] - Sitting 135.00 mm[Hg] - Sitting 98.20 Tympanic 74.00/ min 18.00/min 73696 105 13400 6 73.00 mm[Hg] - Sitting 135.00 mm[Hg] - Sitting 98.20 Tympanic 74.00/ min 20.00/min 56724 105 69993 3 53.00 mm[Hg] - Sitting 126.00 mm[Hg] - Sitting 97.00 Tympanic 99.00 % 56.00/ min 20.00/min 41104 105 53656 6 93.00 % 20.00/min 88099 105 01201 8 94.00 % 20.00/min 22859 105 56852 3 97.00 % 18.00/min 54159 105 20803 9 96.00 % 18.00/min 77957 106 79428 0 67.00 mm[Hg] - Sitting 150.00 mm[Hg] - Sitting 98.80 Forehead Scan 97.00 % 58.00/ min 16.00/min 63495 107 08077 3 136.00 NI 55398 107 00316 0 59 NI 87005 107 20363 0 61.00 mm[Hg] - Sitting 144.00 mm[Hg] - Sitting 97.90 Tympanic 93.00 % 54.00/ min 16.00/min 45895 107 85535 1 95.00 % 18.00/min 29951 107 64704 0 18.00/mi n 21374 107 54234 6 63.00 mm[Hg] - Sitting 159.00 mm[Hg] - Sitting 60.00/ min 40274 107 83402 6 94.00 % 18.00/min 55983 107 06355 3 95.00 % 18.00/min 77719 108 35374 0 55.00 mm[Hg] - Sitting 127.00 mm[Hg] - Sitting 97.80 Tympanic 95.00 % 55.00/ min 16.00/min 38206 108 90327 8 96.00 % 70481 108 72176 4 95.00 % 20.00/min 12303 108 80343 0 96.00 % 20.00/min 58530 108 07112 2 96.00 % 20.00/min 02890 109 54629 8 94.00 % 18.00/min 51710 109 81077 2 18.00/mi n Immunizations Vaccine Date Status Other 06/20/2024 Completed
--- OUTSIDE RECORDS SUMMARY | 2024-07-19 23:08 | External Medical Summary | Continuity Of Care Document ---
Author Name Unknown Address [address] [address] Organization [facility] () Care Team Providers Care Cancer Registry Coordinator Name Role Phone DO Lopez Amy Primary Care Provider [phone] Allergies Allergy Reaction Start Date End Date [...] 3 0.1 mL 06/23 Inactiv e 2024 05321 48221 0 At bedtime Intrad ermal False Tubersol 5 tub. unit/0.1 mL intradermal injection solution [Tuberculin PPD] 0.1mL Intradermal Once daily For PPD 2nd Step Give 2nd Step PPD Day 1 and Read results Day 3 (schedule 7 days after 1st READ) 0.1mL 07/03 Active 2024 28256 05681 0 Once daily Intrad ermal False Tylenol 325 mg tablet 2 tabs By Mouth Every 4 hours as needed For Pain DO NOT EXCEED 3000 MG APAP/24 Hours 2 tabs 2024 Active 2024 40739 24461 0 Every 4 hours as needed By Mouth False Dulcolax (bisacodyl) 10 mg rectal suppository One Suppository per rectum PRN if Milk of Magnisia ineffective. Give on day 5 of no BM 1 sup 2024 Active 2024 45346 98288 1 Daily as needed Rectal False Fleet Enema 19 gram-7 gram/118 mL Administer per rectum PRN one time if dulcolax suppository not effective. Give on day 6 of no BM 1 2024 Active 2024 34760 99693 6 Daily as needed Rectal False Tylenol 325 mg tablet 2 tabs By Mouth Every 4 hours as needed For Fever >100 DO NOT EXCEED 3000 MG APAP/24 Hours 2 tabs 2024 Active 2024 21825 06690 0 Every 4 hours as needed By Mouth False Eliquis 5 mg tablet 5 mg By Mouth Twice daily For afib 5 mg 2024 Active 2024 67044 78623 1 Twice daily By Mouth False Ferrous sulfate 325 mg (65 mg iron) tablet [generic] 325 mg By Mouth Once daily For supplement 325 mg 2024 Active 2024 10823 91407 5 Once daily By Mouth False Magnesium oxide 400 mg (241.3 mg magnesium) tablet [generic] 400 mg By Mouth Once daily For supplement 400 mg 2024 Active 2024 33915 33082 2 Once daily By Mouth False Protonix 40 mg tablet,bozena yed release 40 mg By Mouth Once daily For GERD 40 mg 2024 Active 2024 96137 12351 1 Once daily By Mouth False Sotalol 120 mg tablet [generic] 120 mg By Mouth Twice daily For SVT 120 mg 2024 Active 2024 84990 05591 1 Twice daily By Mouth False Rosuvastati n 20 mg tablet [generic] 20 mg By Mouth Once daily For HLD 20 mg 2024 Active 2024 13712 82489 0 Once daily By Mouth False Arformotero l 15 mcg/2 mL solution for nebulizatio n [generic] 15 mcg Inhalation Twice daily For copd/asthma/ interstitial lung disease 15 mcg 06/20 Inactiv e 2024 47341 71344 0 Twice daily Inhala tion False Budesonide 0.5 mg/2 mL suspension for nebulizatio n [generic] 0.5 mg Inhalation Twice daily For copd/ asthma/ interstital lung disease 0.5 mg 2024 Active 2024 93116 06544 8 Twice daily Inhala tion False Furosemide 40 mg tablet [generic] 40 mg By Mouth Once daily For chronic diastolic CHF 40 mg 2024 Active 2024 51618 44153 0 Once daily By Mouth False Furosemide 40 mg tablet [generic] 40 mg By Mouth Once daily For chronic diastolic CHF 40 mg 2024 Active 2024 83661 78751 0 Once daily By Mouth False Ventolin HFA 90 mcg/actuati on aerosol inhaler 2 puff Inhalation Every 6 hours as needed For SOB/ wheeze 2 puff 2024 Active 2024 27951 08894 0 Every 6 hours as needed Inhala tion False Amitriptyli ne 25 mg tablet [generic] 25 mg By Mouth At bedtime For general anxiety disorder 25 mg 06/26 Inactiv e 2024 33257 06278 1 At bedtime By Mouth False Levothyroxi ne 125 mcg tablet [generic] 125 mcg By Mouth Once daily For hypothyroidis m 125 mcg 2024 Active 2024 49608 68274 0 Once daily By Mouth False Arformotero l 15 mcg/2 mL solution for nebulizatio n [generic] 06/20 Inactiv e 2024 35139 65283 0 Arformotero l 15 mcg/2 mL solution for nebulizatio n [generic] 15 mcg Inhalation Twice daily For copd/asthma/ interstitial lung disease 15 mcg 2024 Active 2024 92309 46681 0 Twice daily Inhala tion False Clonazepam 0.5 mg tablet [generic] 0.5mg By Mouth As Needed q12 hour PRN For anxiety 0.5mg 06/28 Inactiv e 2024 10476 14197 0 By Mouth False Colace 100 mg capsule 100 mg By Mouth Twice daily For Constipation 100 mg 2024 Active 2024 92166 44568 1 Twice daily By Mouth False Boost 0.04 gram-1 kcal/mL oral liquid 1 carton By Mouth 3 times a day For malnutrition 1 carton 06/27 Inactiv e 2024 11723 79627 9 3 times a day By Mouth False Amitriptyli ne 10 mg tablet [generic] 10mg By Mouth At bedtime along with 25 mg dose to equal 35mg For anxiety 10mg 2024 Active 2024 52119 22641 1 At bedtime By Mouth False Amitriptyli ne 25 mg tablet [generic] 06/26 Inactiv e 2024 91453 15037 1 Amitriptyli ne 25 mg tablet [generic] 25 mg By Mouth At bedtime Along with 10mg to equal 35mg. for anxiety 25 mg 2024 Active 2024 69397 89773 1 At bedtime By Mouth False Boost Breeze Nutritional 0.04 gram-1.05 kcal/mL oral liquid 237 ml By Mouth Twice daily Boost Breeze 237 ml oral liquids For Early satiety, low average meal intake - please record number of mL consumed 237 ml 2024 Active 2024 53484 79891 1 Twice daily By Mouth False Prosource [...] PRN For anxiety 0.5mg 2024 Active 2024 40058 99620 0 By Mouth False Betadine Swabsticks 10 % 1 scott Topical Twice daily to bilateral heels For stage 2 pressure injury 1 scott 2024 Active 2024 80378 07729 1 Twice daily Topica l False Problems [...] weight Temperature SpO2 Blood Sugar Pulse Respirations 05023 102 43063 9 83.00 mm[Hg] - Lying Down 170.00 mm[Hg] - Lying Down 98.20 Forehead Scan 98.00 % 86.00/ min 18.00/min 80445 102 79244 4 83.00 mm[Hg] - Sitting 170.00 mm[Hg] - Sitting 98.20 Tympanic 86.00/ min 18.00/min 92294 103 03865 5 98.20 Tympanic 78964 103 77628 3 80.00 mm[Hg] - Lying Down 164.00 mm[Hg] - Lying Down 91.00/ min 20.00/min 90246 103 46550 0 80.00 mm[Hg] - Sitting 164.00 mm[Hg] - Sitting 98.20 Tympanic 91.00/ min 18.00/min 21232 103 36510 7 91.00 % 20.00/min 48444 103 93679 3 94.00 % 18.00/min 32239 103 25530 9 83299 104 74798 6 80.00 mm[Hg] - Sitting 140.00 mm[Hg] - Sitting 98.10 Tympanic 94.00 % 64.00/ min 18.00/min 26607 104 87402 1 80.00 mm[Hg] - Sitting 140.00 mm[Hg] - Sitting 98.10 Tympanic 64.00/ min 18.00/min 71123 104 86440 0 80.00 mm[Hg] - Sitting 140.00 mm[Hg] - Sitting 98.10 Tympanic 64.00/ min 18.00/min 98464 104 14508 7 73.00 mm[Hg] - Sitting 136.00 mm[Hg] - Sitting 97.90 Forehead Scan 95.00 % 74.00/ min 16.00/min 31400 104 61320 8 73.00 mm[Hg] - Sitting 135.00 mm[Hg] - Sitting 98.20 Tympanic 74.00/ min 18.00/min 72520 104 96797 6 95.00 % 18.00/min 55923 104 77893 6 96.00 % 18.00/min 51668 104 78480 4 94.00 % 18.00/min 02953 104 31772 0 18.00/mi n 62218 105 17357 0 73.00 mm[Hg] - Sitting 135.00 mm[Hg] - Sitting 98.20 Tympanic 74.00/ min 18.00/min 23999 105 80902 6 73.00 mm[Hg] - Sitting 135.00 mm[Hg] - Sitting 98.20 Tympanic 74.00/ min 20.00/min 25996 105 66382 3 53.00 mm[Hg] - Sitting 126.00 mm[Hg] - Sitting 97.00 Tympanic 99.00 % 56.00/ min 20.00/min 24286 105 40345 6 93.00 % 20.00/min 65564 105 47981 8 94.00 % 20.00/min 86086 105 19602 3 97.00 % 18.00/min 63366 105 85985 9 96.00 % 18.00/min 02723 106 27617 0 67.00 mm[Hg] - Sitting 150.00 mm[Hg] - Sitting 98.80 Forehead Scan 97.00 % 58.00/ min 16.00/min 15981 107 78214 3 136.00 NI 90324 107 80153 0 59 NI 50351 107 24186 0 61.00 mm[Hg] - Sitting 144.00 mm[Hg] - Sitting 97.90 Tympanic 93.00 % 54.00/ min 16.00/min 16952 107 64348 1 95.00 % 18.00/min 88034 107 81134 0 18.00/mi n 44345 107 87111 6 63.00 mm[Hg] - Sitting 159.00 mm[Hg] - Sitting 60.00/ min 51600 107 38840 6 94.00 % 18.00/min 64503 107 10434 3 95.00 % 18.00/min 49798 108 16866 0 55.00 mm[Hg] - Sitting 127.00 mm[Hg] - Sitting 97.80 Tympanic 95.00 % 55.00/ min 16.00/min 28852 108 13331 8 96.00 % 75996 108 69898 4 95.00 % 20.00/min 68949 108 19743 0 96.00 % 20.00/min 44382 108 90737 2 96.00 % 20.00/min 91873 109 10476 0 63.00 mm[Hg] - Sitting 131.00 mm[Hg] - Sitting 98.70 Tympanic 96.00 % 54.00/ min 18.00/min 94794 109 31165 8 94.00 % 18.00/min 30083 109 62374 2 18.00/mi n 07969 109 55083 5 97.00 % 18.00/min 84308 109 29088 2 96.00 % 18.00/min 16258 110 49020 6 94.00 % 18.00/min 20057 110 10268 8 94.00 % 18.00/min Immunizations Vaccine Date Status Other 06/20/2024 Completed
--- OUTSIDE RECORDS SUMMARY | 2024-07-19 23:08 | External Medical Summary | Continuity Of Care Document ---
Author Name Unknown Address [address] [address] Organization [facility] () Care Team Providers Care Chief Counsel Name Role Phone DO Lopez Amy Primary Care Provider [phone] Allergies Allergy Reaction Start Date End Date [...] 3 0.1 mL 06/23 Inactiv e 2024 79739 81253 0 At bedtime Intrad ermal False Tubersol 5 tub. unit/0.1 mL intradermal injection solution [Tuberculin PPD] 0.1mL Intradermal Once daily For PPD 2nd Step Give 2nd Step PPD Day 1 and Read results Day 3 (schedule 7 days after 1st READ) 0.1mL 07/03 Active 2024 35972 51871 0 Once daily Intrad ermal False Tylenol 325 mg tablet 2 tabs By Mouth Every 4 hours as needed For Pain DO NOT EXCEED 3000 MG APAP/24 Hours 2 tabs 2024 Active 2024 23559 87580 0 Every 4 hours as needed By Mouth False Dulcolax (bisacodyl) 10 mg rectal suppository One Suppository per rectum PRN if Milk of Magnisia ineffective. Give on day 5 of no BM 1 sup 2024 Active 2024 54685 69314 1 Daily as needed Rectal False Fleet Enema 19 gram-7 gram/118 mL Administer per rectum PRN one time if dulcolax suppository not effective. Give on day 6 of no BM 1 2024 Active 2024 45575 47967 6 Daily as needed Rectal False Tylenol 325 mg tablet 2 tabs By Mouth Every 4 hours as needed For Fever >100 DO NOT EXCEED 3000 MG APAP/24 Hours 2 tabs 2024 Active 2024 12516 85203 0 Every 4 hours as needed By Mouth False Eliquis 5 mg tablet 5 mg By Mouth Twice daily For afib 5 mg 2024 Active 2024 18449 12116 1 Twice daily By Mouth False Ferrous sulfate 325 mg (65 mg iron) tablet [generic] 325 mg By Mouth Once daily For supplement 325 mg 2024 Active 2024 77555 71323 5 Once daily By Mouth False Magnesium oxide 400 mg (241.3 mg magnesium) tablet [generic] 400 mg By Mouth Once daily For supplement 400 mg 2024 Active 2024 61357 62662 2 Once daily By Mouth False Protonix 40 mg tablet,bozena yed release 40 mg By Mouth Once daily For GERD 40 mg 2024 Active 2024 99503 07788 1 Once daily By Mouth False Sotalol 120 mg tablet [generic] 120 mg By Mouth Twice daily For SVT 120 mg 2024 Active 2024 84832 92680 1 Twice daily By Mouth False Rosuvastati n 20 mg tablet [generic] 20 mg By Mouth Once daily For HLD 20 mg 2024 Active 2024 53959 74434 0 Once daily By Mouth False Arformotero l 15 mcg/2 mL solution for nebulizatio n [generic] 15 mcg Inhalation Twice daily For copd/asthma/ interstitial lung disease 15 mcg 06/20 Inactiv e 2024 42848 08237 0 Twice daily Inhala tion False Budesonide 0.5 mg/2 mL suspension for nebulizatio n [generic] 0.5 mg Inhalation Twice daily For copd/ asthma/ interstital lung disease 0.5 mg 2024 Active 2024 48077 21342 8 Twice daily Inhala tion False Furosemide 40 mg tablet [generic] 40 mg By Mouth Once daily For chronic diastolic CHF 40 mg 2024 Active 2024 82330 94047 0 Once daily By Mouth False Furosemide 40 mg tablet [generic] 40 mg By Mouth Once daily For chronic diastolic CHF 40 mg 2024 Active 2024 06372 77528 0 Once daily By Mouth False Ventolin HFA 90 mcg/actuati on aerosol inhaler 2 puff Inhalation Every 6 hours as needed For SOB/ wheeze 2 puff 2024 Active 2024 85479 01171 0 Every 6 hours as needed Inhala tion False Amitriptyli ne 25 mg tablet [generic] 25 mg By Mouth At bedtime For general anxiety disorder 25 mg 06/26 Inactiv e 2024 39133 81170 1 At bedtime By Mouth False Levothyroxi ne 125 mcg tablet [generic] 125 mcg By Mouth Once daily For hypothyroidis m 125 mcg 2024 Active 2024 52711 55614 0 Once daily By Mouth False Arformotero l 15 mcg/2 mL solution for nebulizatio n [generic] 06/20 Inactiv e 2024 09469 45503 0 Arformotero l 15 mcg/2 mL solution for nebulizatio n [generic] 15 mcg Inhalation Twice daily For copd/asthma/ interstitial lung disease 15 mcg 2024 Active 2024 82071 32214 0 Twice daily Inhala tion False Clonazepam 0.5 mg tablet [generic] 0.5mg By Mouth As Needed q12 hour PRN For anxiety 0.5mg 06/28 Inactiv e 2024 92538 48477 0 By Mouth False Colace 100 mg capsule 100 mg By Mouth Twice daily For Constipation 100 mg 2024 Active 2024 32625 53580 1 Twice daily By Mouth False Boost 0.04 gram-1 kcal/mL oral liquid 1 carton By Mouth 3 times a day For malnutrition 1 carton 06/27 Inactiv e 2024 13905 01113 9 3 times a day By Mouth False Amitriptyli ne 10 mg tablet [generic] 10mg By Mouth At bedtime along with 25 mg dose to equal 35mg For anxiety 10mg 2024 Active 2024 61751 82173 1 At bedtime By Mouth False Amitriptyli ne 25 mg tablet [generic] 06/26 Inactiv e 2024 20119 39226 1 Amitriptyli ne 25 mg tablet [generic] 25 mg By Mouth At bedtime Along with 10mg to equal 35mg. for anxiety 25 mg 2024 Active 2024 35444 03015 1 At bedtime By Mouth False Boost Breeze Nutritional 0.04 gram-1.05 kcal/mL oral liquid 237 ml By Mouth Twice daily Boost Breeze 237 ml oral liquids For Early satiety, low average meal intake - please record number of mL consumed 237 ml 2024 Active 2024 35516 69503 1 Twice daily By Mouth False Prosource [...] PRN For anxiety 0.5mg 2024 Active 2024 79183 53649 0 By Mouth False Betadine Swabsticks 10 % 1 scott Topical Twice daily to bilateral heels For stage 2 pressure injury 1 scott 2024 Active 2024 09481 31002 1 Twice daily Topica l False Problems [...] weight Temperature SpO2 Blood Sugar Pulse Respirations 28373 102 22213 9 83.00 mm[Hg] - Lying Down 170.00 mm[Hg] - Lying Down 98.20 Forehead Scan 98.00 % 86.00/ min 18.00/min 76072 102 70873 4 83.00 mm[Hg] - Sitting 170.00 mm[Hg] - Sitting 98.20 Tympanic 86.00/ min 18.00/min 63837 103 91241 5 98.20 Tympanic 93480 103 83848 3 80.00 mm[Hg] - Lying Down 164.00 mm[Hg] - Lying Down 91.00/ min 20.00/min 29837 103 64280 0 80.00 mm[Hg] - Sitting 164.00 mm[Hg] - Sitting 98.20 Tympanic 91.00/ min 18.00/min 98165 103 31576 7 91.00 % 20.00/min 49299 103 05385 3 94.00 % 18.00/min 43416 103 64862 9 29593 104 48005 6 80.00 mm[Hg] - Sitting 140.00 mm[Hg] - Sitting 98.10 Tympanic 94.00 % 64.00/ min 18.00/min 02562 104 77807 1 80.00 mm[Hg] - Sitting 140.00 mm[Hg] - Sitting 98.10 Tympanic 64.00/ min 18.00/min 57086 104 17624 0 80.00 mm[Hg] - Sitting 140.00 mm[Hg] - Sitting 98.10 Tympanic 64.00/ min 18.00/min 60496 104 47380 7 73.00 mm[Hg] - Sitting 136.00 mm[Hg] - Sitting 97.90 Forehead Scan 95.00 % 74.00/ min 16.00/min 63263 104 97613 8 73.00 mm[Hg] - Sitting 135.00 mm[Hg] - Sitting 98.20 Tympanic 74.00/ min 18.00/min 76759 104 24118 6 95.00 % 18.00/min 98826 104 24655 6 96.00 % 18.00/min 53307 104 95314 4 94.00 % 18.00/min 42193 104 64149 0 18.00/mi n 86440 105 10077 0 73.00 mm[Hg] - Sitting 135.00 mm[Hg] - Sitting 98.20 Tympanic 74.00/ min 18.00/min 72303 105 08083 6 73.00 mm[Hg] - Sitting 135.00 mm[Hg] - Sitting 98.20 Tympanic 74.00/ min 20.00/min 76932 105 85986 3 53.00 mm[Hg] - Sitting 126.00 mm[Hg] - Sitting 97.00 Tympanic 99.00 % 56.00/ min 20.00/min 26371 105 72177 6 93.00 % 20.00/min 45549 105 98103 8 94.00 % 20.00/min 25259 105 34095 3 97.00 % 18.00/min 51146 105 86677 9 96.00 % 18.00/min 88228 106 30958 0 67.00 mm[Hg] - Sitting 150.00 mm[Hg] - Sitting 98.80 Forehead Scan 97.00 % 58.00/ min 16.00/min 25962 107 80815 3 136.00 NI 62246 107 53993 0 59 NI 68876 107 24059 0 61.00 mm[Hg] - Sitting 144.00 mm[Hg] - Sitting 97.90 Tympanic 93.00 % 54.00/ min 16.00/min 26313 107 98889 1 95.00 % 18.00/min 09610 107 90840 0 18.00/mi n 27804 107 90048 6 63.00 mm[Hg] - Sitting 159.00 mm[Hg] - Sitting 60.00/ min 54845 107 16345 6 94.00 % 18.00/min 61537 107 69266 3 95.00 % 18.00/min 59823 108 41689 0 55.00 mm[Hg] - Sitting 127.00 mm[Hg] - Sitting 97.80 Tympanic 95.00 % 55.00/ min 16.00/min 28387 108 00173 8 96.00 % 54699 108 81564 4 95.00 % 20.00/min 09939 108 78328 0 96.00 % 20.00/min 47757 108 45188 2 96.00 % 20.00/min 20703 109 93386 0 63.00 mm[Hg] - Sitting 131.00 mm[Hg] - Sitting 98.70 Tympanic 96.00 % 54.00/ min 18.00/min 28739 109 98354 8 94.00 % 18.00/min 55809 109 23660 2 18.00/mi n 39557 109 59702 5 97.00 % 18.00/min 24288 109 83968 2 96.00 % 18.00/min 82703 110 92437 6 94.00 % 18.00/min 18451 110 24511 8 94.00 % 18.00/min Immunizations Vaccine Date Status Other 06/20/2024 Completed
--- OUTSIDE RECORDS SUMMARY | 2024-07-19 23:09 | External Medical Summary | Continuity Of Care Document ---
Author Name Unknown Address [address] [address] Organization [facility] () Care Team Providers Care Photography Editor Name Role Phone DO Lopez Amy Primary Care Provider [phone] Allergies Allergy Reaction Start Date End Date [...] 3 0.1 mL 06/23 Inactiv e 2024 60792 63807 0 At bedtime Intrad ermal False Tubersol 5 tub. unit/0.1 mL intradermal injection solution [Tuberculin PPD] 0.1mL Intradermal Once daily For PPD 2nd Step Give 2nd Step PPD Day 1 and Read results Day 3 (schedule 7 days after 1st READ) 0.1mL 07/03 Active 2024 12995 75287 0 Once daily Intrad ermal False Tylenol 325 mg tablet 2 tabs By Mouth Every 4 hours as needed For Pain DO NOT EXCEED 3000 MG APAP/24 Hours 2 tabs 2024 Active 2024 06290 68270 0 Every 4 hours as needed By Mouth False Dulcolax (bisacodyl) 10 mg rectal suppository One Suppository per rectum PRN if Milk of Magnisia ineffective. Give on day 5 of no BM 1 sup 2024 Active 2024 86669 54181 1 Daily as needed Rectal False Fleet Enema 19 gram-7 gram/118 mL Administer per rectum PRN one time if dulcolax suppository not effective. Give on day 6 of no BM 1 2024 Active 2024 42746 53012 6 Daily as needed Rectal False Tylenol 325 mg tablet 2 tabs By Mouth Every 4 hours as needed For Fever >100 DO NOT EXCEED 3000 MG APAP/24 Hours 2 tabs 2024 Active 2024 28351 51888 0 Every 4 hours as needed By Mouth False Eliquis 5 mg tablet 5 mg By Mouth Twice daily For afib 5 mg 2024 Active 2024 74084 78657 1 Twice daily By Mouth False Ferrous sulfate 325 mg (65 mg iron) tablet [generic] 325 mg By Mouth Once daily For supplement 325 mg 2024 Active 2024 47344 77728 5 Once daily By Mouth False Magnesium oxide 400 mg (241.3 mg magnesium) tablet [generic] 400 mg By Mouth Once daily For supplement 400 mg 2024 Active 2024 45639 24192 2 Once daily By Mouth False Protonix 40 mg tablet,bozena yed release 40 mg By Mouth Once daily For GERD 40 mg 2024 Active 2024 81687 06694 1 Once daily By Mouth False Sotalol 120 mg tablet [generic] 120 mg By Mouth Twice daily For SVT 120 mg 2024 Active 2024 89028 28829 1 Twice daily By Mouth False Rosuvastati n 20 mg tablet [generic] 20 mg By Mouth Once daily For HLD 20 mg 2024 Active 2024 54771 10926 0 Once daily By Mouth False Arformotero l 15 mcg/2 mL solution for nebulizatio n [generic] 15 mcg Inhalation Twice daily For copd/asthma/ interstitial lung disease 15 mcg 06/20 Inactiv e 2024 28353 70105 0 Twice daily Inhala tion False Budesonide 0.5 mg/2 mL suspension for nebulizatio n [generic] 0.5 mg Inhalation Twice daily For copd/ asthma/ interstital lung disease 0.5 mg 2024 Active 2024 92121 01537 8 Twice daily Inhala tion False Furosemide 40 mg tablet [generic] 40 mg By Mouth Once daily For chronic diastolic CHF 40 mg 2024 Active 2024 06387 17441 0 Once daily By Mouth False Furosemide 40 mg tablet [generic] 40 mg By Mouth Once daily For chronic diastolic CHF 40 mg 2024 Active 2024 43146 07593 0 Once daily By Mouth False Ventolin HFA 90 mcg/actuati on aerosol inhaler 2 puff Inhalation Every 6 hours as needed For SOB/ wheeze 2 puff 2024 Active 2024 12034 40464 0 Every 6 hours as needed Inhala tion False Amitriptyli ne 25 mg tablet [generic] 25 mg By Mouth At bedtime For general anxiety disorder 25 mg 06/26 Inactiv e 2024 78908 38397 1 At bedtime By Mouth False Levothyroxi ne 125 mcg tablet [generic] 125 mcg By Mouth Once daily For hypothyroidis m 125 mcg 2024 Active 2024 09654 38662 0 Once daily By Mouth False Arformotero l 15 mcg/2 mL solution for nebulizatio n [generic] 06/20 Inactiv e 2024 64688 63892 0 Arformotero l 15 mcg/2 mL solution for nebulizatio n [generic] 15 mcg Inhalation Twice daily For copd/asthma/ interstitial lung disease 15 mcg 2024 Active 2024 68661 91550 0 Twice daily Inhala tion False Clonazepam 0.5 mg tablet [generic] 0.5mg By Mouth As Needed q12 hour PRN For anxiety 0.5mg 2024 Active 2024 47420 61818 0 By Mouth False Colace 100 mg capsule 100 mg By Mouth Twice daily For Constipation 100 mg 2024 Active 2024 06307 06989 1 Twice daily By Mouth False Boost 0.04 gram-1 kcal/mL oral liquid 1 carton By Mouth 3 times a day For malnutrition 1 carton 2024 Active 2024 27186 09411 9 3 times a day By Mouth False Amitriptyli ne 10 mg tablet [generic] 10mg By Mouth At bedtime along with 25 mg dose to equal 35mg For anxiety 10mg 2024 Active 2024 84733 54375 1 At bedtime By Mouth False Amitriptyli ne 25 mg tablet [generic] 06/26 Inactiv e 2024 52701 16333 1 Amitriptyli ne 25 mg tablet [generic] 25 mg By Mouth At bedtime Along with 10mg to equal 35mg. for anxiety 25 mg 2024 Active 2024 16464 22515 1 At bedtime By Mouth False Betadine Swabsticks 10 % 1 scott Topical Twice daily to bilateral heels For stage 2 pressure injury 1 scott 2024 Active 2024 07495 07671 1 Twice daily Topica l False Problems [...] weight Temperature SpO2 Blood Sugar Pulse Respirations 96738 102 38476 9 83.00 mm[Hg] - Lying Down 170.00 mm[Hg] - Lying Down 98.20 Forehead Scan 98.00 % 86.00/ min 18.00/min 86864 102 11418 4 83.00 mm[Hg] - Sitting 170.00 mm[Hg] - Sitting 98.20 Tympanic 86.00/ min 18.00/min 75123 103 99332 5 98.20 Tympanic 99031 103 80168 3 80.00 mm[Hg] - Lying Down 164.00 mm[Hg] - Lying Down 91.00/ min 20.00/min 14890 103 72630 0 80.00 mm[Hg] - Sitting 164.00 mm[Hg] - Sitting 98.20 Tympanic 91.00/ min 18.00/min 47955 103 35699 7 91.00 % 20.00/min 30170 103 16311 3 94.00 % 18.00/min 76143 103 06143 9 76516 104 76247 6 80.00 mm[Hg] - Sitting 140.00 mm[Hg] - Sitting 98.10 Tympanic 94.00 % 64.00/ min 18.00/min 26551 104 14812 1 80.00 mm[Hg] - Sitting 140.00 mm[Hg] - Sitting 98.10 Tympanic 64.00/ min 18.00/min 17194 104 90464 0 80.00 mm[Hg] - Sitting 140.00 mm[Hg] - Sitting 98.10 Tympanic 64.00/ min 18.00/min 28153 104 36719 7 73.00 mm[Hg] - Sitting 136.00 mm[Hg] - Sitting 97.90 Forehead Scan 95.00 % 74.00/ min 16.00/min 37838 104 47644 8 73.00 mm[Hg] - Sitting 135.00 mm[Hg] - Sitting 98.20 Tympanic 74.00/ min 18.00/min 51439 104 03171 6 95.00 % 18.00/min 55797 104 81899 6 96.00 % 18.00/min 63294 104 19782 4 94.00 % 18.00/min 40716 104 89199 0 18.00/mi n 89635 105 73520 0 73.00 mm[Hg] - Sitting 135.00 mm[Hg] - Sitting 98.20 Tympanic 74.00/ min 18.00/min 01094 105 58501 6 73.00 mm[Hg] - Sitting 135.00 mm[Hg] - Sitting 98.20 Tympanic 74.00/ min 20.00/min 85552 105 05128 3 53.00 mm[Hg] - Sitting 126.00 mm[Hg] - Sitting 97.00 Tympanic 99.00 % 56.00/ min 20.00/min 36233 105 33967 6 93.00 % 20.00/min 40135 105 50603 8 94.00 % 20.00/min 11052 105 63175 3 97.00 % 18.00/min 24984 105 91894 9 96.00 % 18.00/min 26823 106 39263 0 67.00 mm[Hg] - Sitting 150.00 mm[Hg] - Sitting 98.80 Forehead Scan 97.00 % 58.00/ min 16.00/min 45623 107 40541 3 136.00 NI 06519 107 00874 0 59 NI 73523 107 58712 0 61.00 mm[Hg] - Sitting 144.00 mm[Hg] - Sitting 97.90 Tympanic 93.00 % 54.00/ min 16.00/min 09751 107 59249 1 95.00 % 18.00/min 66083 107 51384 0 18.00/mi n 57903 107 05663 6 63.00 mm[Hg] - Sitting 159.00 mm[Hg] - Sitting 60.00/ min 45810 107 23056 6 94.00 % 18.00/min 38614 107 82994 3 95.00 % 18.00/min 90805 108 82648 0 55.00 mm[Hg] - Sitting 127.00 mm[Hg] - Sitting 97.80 Tympanic 95.00 % 55.00/ min 16.00/min 44020 108 44789 8 96.00 % 87650 108 24217 4 95.00 % 20.00/min 95060 108 54626 0 96.00 % 20.00/min 99166 108 97747 2 96.00 % 20.00/min Immunizations Vaccine Date Status Other 06/20/2024 Completed
--- OUTSIDE RECORDS SUMMARY | 2024-07-19 23:09 | External Medical Summary | Continuity Of Care Document ---
Author Name Unknown Address [address] [address] Organization [facility] () Care Team Providers Care [employer] Supervisor Name Role Phone DO Lopez Amy Primary Care Provider [phone] Allergies Allergy Reaction Start Date End Date [...] 3 0.1 mL 06/23 Inactiv e 2024 02616 37953 0 At bedtime Intrad ermal False Tubersol 5 tub. unit/0.1 mL intradermal injection solution [Tuberculin PPD] 0.1mL Intradermal Once daily For PPD 2nd Step Give 2nd Step PPD Day 1 and Read results Day 3 (schedule 7 days after 1st READ) 0.1mL 07/03 Active 2024 46220 10431 0 Once daily Intrad ermal False Tylenol 325 mg tablet 2 tabs By Mouth Every 4 hours as needed For Pain DO NOT EXCEED 3000 MG APAP/24 Hours 2 tabs 2024 Active 2024 29400 75352 0 Every 4 hours as needed By Mouth False Dulcolax (bisacodyl) 10 mg rectal suppository One Suppository per rectum PRN if Milk of Magnisia ineffective. Give on day 5 of no BM 1 sup 2024 Active 2024 54483 83864 1 Daily as needed Rectal False Fleet Enema 19 gram-7 gram/118 mL Administer per rectum PRN one time if dulcolax suppository not effective. Give on day 6 of no BM 1 2024 Active 2024 84057 18991 6 Daily as needed Rectal False Tylenol 325 mg tablet 2 tabs By Mouth Every 4 hours as needed For Fever >100 DO NOT EXCEED 3000 MG APAP/24 Hours 2 tabs 2024 Active 2024 62698 10622 0 Every 4 hours as needed By Mouth False Eliquis 5 mg tablet 5 mg By Mouth Twice daily For afib 5 mg 2024 Active 2024 59789 34551 1 Twice daily By Mouth False Ferrous sulfate 325 mg (65 mg iron) tablet [generic] 325 mg By Mouth Once daily For supplement 325 mg 2024 Active 2024 69276 95085 5 Once daily By Mouth False Magnesium oxide 400 mg (241.3 mg magnesium) tablet [generic] 400 mg By Mouth Once daily For supplement 400 mg 2024 Active 2024 99613 03828 2 Once daily By Mouth False Protonix 40 mg tablet,bozena yed release 40 mg By Mouth Once daily For GERD 40 mg 2024 Active 2024 64516 35261 1 Once daily By Mouth False Sotalol 120 mg tablet [generic] 120 mg By Mouth Twice daily For SVT 120 mg 2024 Active 2024 68456 11344 1 Twice daily By Mouth False Rosuvastati n 20 mg tablet [generic] 20 mg By Mouth Once daily For HLD 20 mg 2024 Active 2024 60195 91505 0 Once daily By Mouth False Arformotero l 15 mcg/2 mL solution for nebulizatio n [generic] 15 mcg Inhalation Twice daily For copd/asthma/ interstitial lung disease 15 mcg 06/20 Inactiv e 2024 00297 75325 0 Twice daily Inhala tion False Budesonide 0.5 mg/2 mL suspension for nebulizatio n [generic] 0.5 mg Inhalation Twice daily For copd/ asthma/ interstital lung disease 0.5 mg 2024 Active 2024 63658 77284 8 Twice daily Inhala tion False Furosemide 40 mg tablet [generic] 40 mg By Mouth Once daily For chronic diastolic CHF 40 mg 2024 Active 2024 50182 21782 0 Once daily By Mouth False Furosemide 40 mg tablet [generic] 40 mg By Mouth Once daily For chronic diastolic CHF 40 mg 2024 Active 2024 63279 40910 0 Once daily By Mouth False Ventolin HFA 90 mcg/actuati on aerosol inhaler 2 puff Inhalation Every 6 hours as needed For SOB/ wheeze 2 puff 2024 Active 2024 54693 52327 0 Every 6 hours as needed Inhala tion False Amitriptyli ne 25 mg tablet [generic] 25 mg By Mouth At bedtime For general anxiety disorder 25 mg 06/26 Inactiv e 2024 08320 95112 1 At bedtime By Mouth False Levothyroxi ne 125 mcg tablet [generic] 125 mcg By Mouth Once daily For hypothyroidis m 125 mcg 2024 Active 2024 99940 80057 0 Once daily By Mouth False Arformotero l 15 mcg/2 mL solution for nebulizatio n [generic] 06/20 Inactiv e 2024 73211 36277 0 Arformotero l 15 mcg/2 mL solution for nebulizatio n [generic] 15 mcg Inhalation Twice daily For copd/asthma/ interstitial lung disease 15 mcg 2024 Active 2024 50769 98585 0 Twice daily Inhala tion False Clonazepam 0.5 mg tablet [generic] 0.5mg By Mouth As Needed q12 hour PRN For anxiety 0.5mg 2024 Active 2024 89248 03515 0 By Mouth False Colace 100 mg capsule 100 mg By Mouth Twice daily For Constipation 100 mg 2024 Active 2024 77026 77428 1 Twice daily By Mouth False Boost 0.04 gram-1 kcal/mL oral liquid 1 carton By Mouth 3 times a day For malnutrition 1 carton 2024 Active 2024 04800 91464 9 3 times a day By Mouth False Amitriptyli ne 10 mg tablet [generic] 10mg By Mouth At bedtime along with 25 mg dose to equal 35mg For anxiety 10mg 2024 Active 2024 00114 10728 1 At bedtime By Mouth False Amitriptyli ne 25 mg tablet [generic] 06/26 Inactiv e 2024 32525 78721 1 Amitriptyli ne 25 mg tablet [generic] 25 mg By Mouth At bedtime Along with 10mg to equal 35mg. for anxiety 25 mg 2024 Active 2024 41096 45647 1 At bedtime By Mouth False Betadine Swabsticks 10 % 1 scott Topical Twice daily to bilateral heels For stage 2 pressure injury 1 scott 2024 Active 2024 36494 94326 1 Twice daily Topica l False Problems [...] weight Temperature SpO2 Blood Sugar Pulse Respirations 68228 102 91752 9 83.00 mm[Hg] - Lying Down 170.00 mm[Hg] - Lying Down 98.20 Forehead Scan 98.00 % 86.00/ min 18.00/min 44159 102 26512 4 83.00 mm[Hg] - Sitting 170.00 mm[Hg] - Sitting 98.20 Tympanic 86.00/ min 18.00/min 29517 103 77209 5 98.20 Tympanic 37985 103 54885 3 80.00 mm[Hg] - Lying Down 164.00 mm[Hg] - Lying Down 91.00/ min 20.00/min 25863 103 14066 0 80.00 mm[Hg] - Sitting 164.00 mm[Hg] - Sitting 98.20 Tympanic 91.00/ min 18.00/min 18337 103 99554 7 91.00 % 20.00/min 67320 103 91031 3 94.00 % 18.00/min 40999 103 42141 9 38997 104 54311 6 80.00 mm[Hg] - Sitting 140.00 mm[Hg] - Sitting 98.10 Tympanic 94.00 % 64.00/ min 18.00/min 89480 104 08207 1 80.00 mm[Hg] - Sitting 140.00 mm[Hg] - Sitting 98.10 Tympanic 64.00/ min 18.00/min 31204 104 71022 0 80.00 mm[Hg] - Sitting 140.00 mm[Hg] - Sitting 98.10 Tympanic 64.00/ min 18.00/min 66034 104 29048 7 73.00 mm[Hg] - Sitting 136.00 mm[Hg] - Sitting 97.90 Forehead Scan 95.00 % 74.00/ min 16.00/min 23704 104 59023 8 73.00 mm[Hg] - Sitting 135.00 mm[Hg] - Sitting 98.20 Tympanic 74.00/ min 18.00/min 76861 104 97249 6 95.00 % 18.00/min 05420 104 01077 6 96.00 % 18.00/min 53441 104 24559 4 94.00 % 18.00/min 86984 104 95738 0 18.00/mi n 06764 105 34629 0 73.00 mm[Hg] - Sitting 135.00 mm[Hg] - Sitting 98.20 Tympanic 74.00/ min 18.00/min 82724 105 57234 6 73.00 mm[Hg] - Sitting 135.00 mm[Hg] - Sitting 98.20 Tympanic 74.00/ min 20.00/min 19857 105 97160 3 53.00 mm[Hg] - Sitting 126.00 mm[Hg] - Sitting 97.00 Tympanic 99.00 % 56.00/ min 20.00/min 89946 105 67957 6 93.00 % 20.00/min 00601 105 84480 8 94.00 % 20.00/min 73083 105 49833 3 97.00 % 18.00/min 60135 105 51860 9 96.00 % 18.00/min 53928 106 36123 0 67.00 mm[Hg] - Sitting 150.00 mm[Hg] - Sitting 98.80 Forehead Scan 97.00 % 58.00/ min 16.00/min 60310 107 92911 3 136.00 NI [id number] 107 33224 0 59 NI 43240 107 78763 0 61.00 mm[Hg] - Sitting 144.00 mm[Hg] - Sitting 97.90 Tympanic 93.00 % 54.00/ min 16.00/min 71541 107 26832 1 95.00 % 18.00/min 13431 107 87519 0 18.00/mi n 33371 107 30442 6 63.00 mm[Hg] - Sitting 159.00 mm[Hg] - Sitting 60.00/ min 09256 107 07658 6 94.00 % 18.00/min 18195 107 13591 3 95.00 % 18.00/min Immunizations Vaccine Date Status Other 06/20/2024 Completed
--- OUTSIDE RECORDS SUMMARY | 2024-07-19 23:09 | External Medical Summary | Continuity Of Care Document ---
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 unit/0.1 mL intradermal injection solution [Tuberculin PPD] 0.1mL Intradermal Once daily For PPD 2nd Step Give 2nd Step PPD Day 1 and Read results Day 3 (schedule 7 days after 1st READ) 0.1mL 07/03 Active 2024 22615 77059 0 Once daily Intrad ermal False Tylenol 325 mg tablet 2 tabs By Mouth Every 4 hours as needed For Pain DO NOT EXCEED 3000 MG APAP/24 Hours 2 tabs 2024 Active 2024 01778 13172 0 Every 4 hours as needed By Mouth False Dulcolax (bisacodyl) 10 mg rectal suppository One Suppository per rectum PRN if Milk of Magnisia ineffective. Give on day 5 of no BM 1 sup 2024 Active 2024 70732 22714 1 Daily as needed Rectal False Fleet Enema 19 gram-7 gram/118 mL Administer per rectum PRN one time if dulcolax suppository not effective. Give on day 6 of no BM 1 2024 Active 2024 64033 29582 6 Daily as needed Rectal False Tylenol 325 mg tablet 2 tabs By Mouth Every 4 hours as needed For Fever >100 DO NOT EXCEED 3000 MG APAP/24 Hours 2 tabs 2024 Active 2024 29783 00385 0 Every 4 hours as needed By Mouth False Eliquis 5 mg tablet 5 mg By Mouth Twice daily For afib 5 mg 2024 Active 2024 55587 87720 1 Twice daily By Mouth False Ferrous sulfate 325 mg (65 mg iron) tablet [generic] 325 mg By Mouth Once daily For supplement 325 mg 2024 Active 2024 47435 45870 5 Once daily By Mouth False Magnesium oxide 400 mg (241.3 mg magnesium) tablet [generic] 400 mg By Mouth Once daily For supplement 400 mg 2024 Active 2024 92382 74235 2 Once daily By Mouth False Protonix 40 mg tablet,bozena yed release 40 mg By Mouth Once daily For GERD 40 mg 2024 Active 2024 38499 68754 1 Once daily By Mouth False Sotalol 120 mg tablet [generic] 120 mg By Mouth Twice daily For SVT 120 mg 2024 Active 2024 90877 36532 1 Twice daily By Mouth False Rosuvastati n 20 mg tablet [generic] 20 mg By Mouth Once daily For HLD 20 mg 2024 Active 2024 30394 95523 0 Once daily By Mouth False Arformotero l 15 mcg/2 mL solution for nebulizatio n [generic] 15 mcg Inhalation Twice daily For copd/asthma/ interstitial lung disease 15 mcg 06/20 Inactiv e 2024 66954 63565 0 Twice daily Inhala tion False Budesonide 0.5 mg/2 mL suspension for nebulizatio n [generic] 0.5 mg Inhalation Twice daily For copd/ asthma/ interstital lung disease 0.5 mg 2024 Active 2024 53711 53075 8 Twice daily Inhala tion False Furosemide 40 mg tablet [generic] 40 mg By Mouth Once daily For chronic diastolic CHF 40 mg 2024 Active 2024 65571 76573 0 Once daily By Mouth False Furosemide 40 mg tablet [generic] 40 mg By Mouth Once daily For chronic diastolic CHF 40 mg 2024 Active 2024 19994 48870 0 Once daily By Mouth False Ventolin HFA 90 mcg/actuati on aerosol inhaler 2 puff Inhalation Every 6 hours as needed For SOB/ wheeze 2 puff 2024 Active 2024 52267 78656 0 Every 6 hours as needed Inhala tion False Amitriptyli ne 25 mg tablet [generic] 25 mg By Mouth At bedtime For general anxiety disorder 25 mg 06/26 Inactiv e 2024 56209 27172 1 At bedtime By Mouth False Levothyroxi ne 125 mcg tablet [generic] 125 mcg By Mouth Once daily For hypothyroidis m 125 mcg 2024 Active 2024 87721 17223 0 Once daily By Mouth False Arformotero l 15 mcg/2 mL solution for nebulizatio n [generic] 06/20 Inactiv e 2024 92946 66305 0 Arformotero l 15 mcg/2 mL solution for nebulizatio n [generic] 15 mcg Inhalation Twice daily For copd/asthma/ interstitial lung disease 15 mcg 2024 Active 2024 97348 67113 0 Twice daily Inhala tion False Clonazepam 0.5 mg tablet [generic] 0.5mg By Mouth As Needed q12 hour PRN For anxiety 0.5mg 2024 Active 2024 73336 80785 0 By Mouth False Colace 100 mg capsule 100 mg By Mouth Twice daily For Constipation 100 mg 2024 Active 2024 18472 52217 1 Twice daily By Mouth False Boost 0.04 gram-1 kcal/mL oral liquid 1 carton By Mouth 3 times a day For malnutrition 1 carton 2024 Active 2024 75775 72391 9 3 times a day By Mouth False Amitriptyli ne 10 mg tablet [generic] 10mg By Mouth At bedtime along with 25 mg dose to equal 35mg For anxiety 10mg 2024 Active 2024 22557 47676 1 At bedtime By Mouth False Amitriptyli ne 25 mg tablet [generic] 06/26 Inactiv e 2024 74278 60673 1 Amitriptyli ne 25 mg tablet [generic] 25 mg By Mouth At bedtime Along with 10mg to equal 35mg. for anxiety 25 mg 2024 Active 2024 93782 28331 1 At bedtime By Mouth False Betadine Swabsticks 10 % 1 scott Topical Twice daily to bilateral heels For stage 2 pressure injury 1 scott 2024 Active 2024 02932 50304 1 Twice daily Topica l False Problems [...] weight Temperature SpO2 Blood Sugar Pulse Respirations 36328 102 80327 9 83.00 mm[Hg] - Lying Down 170.00 mm[Hg] - Lying Down 98.20 Forehead Scan 98.00 % 86.00/ min 18.00/min 56028 102 62008 4 83.00 mm[Hg] - Sitting 170.00 mm[Hg] - Sitting 98.20 Tympanic 86.00/ min 18.00/min 41142 103 27615 5 98.20 Tympanic 10762 103 70904 3 80.00 mm[Hg] - Lying Down 164.00 mm[Hg] - Lying Down 91.00/ min 20.00/min 63378 103 43306 0 80.00 mm[Hg] - Sitting 164.00 mm[Hg] - Sitting 98.20 Tympanic 91.00/ min 18.00/min 00154 103 90293 7 91.00 % 20.00/min 96848 103 06295 3 94.00 % 18.00/min 01480 103 45081 9 17275 104 16172 6 80.00 mm[Hg] - Sitting 140.00 mm[Hg] - Sitting 98.10 Tympanic 94.00 % 64.00/ min 18.00/min 52640 104 36203 1 80.00 mm[Hg] - Sitting 140.00 mm[Hg] - Sitting 98.10 Tympanic 64.00/ min 18.00/min 01066 104 66947 0 80.00 mm[Hg] - Sitting 140.00 mm[Hg] - Sitting 98.10 Tympanic 64.00/ min 18.00/min 76027 104 62876 7 73.00 mm[Hg] - Sitting 136.00 mm[Hg] - Sitting 97.90 Forehead Scan 95.00 % 74.00/ min 16.00/min 11744 104 52970 8 73.00 mm[Hg] - Sitting 135.00 mm[Hg] - Sitting 98.20 Tympanic 74.00/ min 18.00/min 51105 104 39842 6 95.00 % 18.00/min 57817 104 44829 6 96.00 % 18.00/min 86858 104 32310 4 94.00 % 18.00/min 45715 104 70235 0 18.00/mi n 13635 105 87142 0 73.00 mm[Hg] - Sitting 135.00 mm[Hg] - Sitting 98.20 Tympanic 74.00/ min 18.00/min 95085 105 24357 6 73.00 mm[Hg] - Sitting 135.00 mm[Hg] - Sitting 98.20 Tympanic 74.00/ min 20.00/min 39499 105 75637 3 53.00 mm[Hg] - Sitting 126.00 mm[Hg] - Sitting 97.00 Tympanic 99.00 % 56.00/ min 20.00/min 99098 105 29177 6 93.00 % 20.00/min 06007 105 87804 8 94.00 % 20.00/min 03880 105 46459 3 97.00 % 18.00/min 70763 105 84406 9 96.00 % 18.00/min 29632 106 19497 0 67.00 mm[Hg] - Sitting 150.00 mm[Hg] - Sitting 98.80 Forehead Scan 97.00 % 58.00/ min 16.00/min 43969 107 78672 3 136.00 NI 65631 107 52029 0 59 NI 06643 107 60053 0 61.00 mm[Hg] - Sitting 144.00 mm[Hg] - Sitting 97.90 Tympanic 93.00 % 54.00/ min 16.00/min 41586 107 35867 1 95.00 % 18.00/min 94771 107 98669 0 18.00/mi n 36958 107 11469 6 63.00 mm[Hg] - Sitting 159.00 mm[Hg] - Sitting 60.00/ min 35273 107 15365 6 94.00 % 18.00/min 88243 107 66530 3 95.00 % 18.00/min 26210 108 52576 4 95.00 % 20.00/min Immunizations Vaccine Date Status Other 06/20/2024 Completed
--- OUTSIDE RECORDS SUMMARY | 2024-07-19 23:09 | External Medical Summary | Continuity Of Care Document ---
Author Name Unknown Address [address] [address] Organization [facility] () Care Team Providers Care Director [employer] Name Role Phone DO Lopez Amy Primary Care Provider [phone] Allergies Allergy Reaction Start Date End Date Status IODINE Swelling Facial/tongue/throat/hands/f ruht/feet Active METHADONE Active PROPOXYPHENE Active SHELLFISH DERIVED [...] 3 0.1 mL 06/23 Inactiv e 2024 42790 98413 0 At bedtime Intrad ermal False Tubersol 5 tub. unit/0.1 mL intradermal injection solution [Tuberculin PPD] 0.1mL Intradermal Once daily For PPD 2nd Step Give 2nd Step PPD Day 1 and Read results Day 3 (schedule 7 days after 1st READ) 0.1mL 07/03 Active 2024 43024 63830 0 Once daily Intrad ermal False Tylenol 325 mg tablet 2 tabs By Mouth Every 4 hours as needed For Pain DO NOT EXCEED 3000 MG APAP/24 Hours 2 tabs 2024 Active 2024 81527 78637 0 Every 4 hours as needed By Mouth False Dulcolax (bisacodyl) 10 mg rectal suppository One Suppository per rectum PRN if Milk of Magnisia ineffective. Give on day 5 of no BM 1 sup 2024 Active 2024 52921 27306 1 Daily as needed Rectal False Fleet Enema 19 gram-7 gram/118 mL Administer per rectum PRN one time if dulcolax suppository not effective. Give on day 6 of no BM 1 2024 Active 2024 17904 87937 6 Daily as needed Rectal False Tylenol 325 mg tablet 2 tabs By Mouth Every 4 hours as needed For Fever >100 DO NOT EXCEED 3000 MG APAP/24 Hours 2 tabs 2024 Active 2024 58036 46611 0 Every 4 hours as needed By Mouth False Eliquis 5 mg tablet 5 mg By Mouth Twice daily For afib 5 mg 2024 Active 2024 31047 16259 1 Twice daily By Mouth False Ferrous sulfate 325 mg (65 mg iron) tablet [generic] 325 mg By Mouth Once daily For supplement 325 mg 2024 Active 2024 60119 87504 5 Once daily By Mouth False Magnesium oxide 400 mg (241.3 mg magnesium) tablet [generic] 400 mg By Mouth Once daily For supplement 400 mg 2024 Active 2024 24226 05498 2 Once daily By Mouth False Protonix 40 mg tablet,bozena yed release 40 mg By Mouth Once daily For GERD 40 mg 2024 Active 2024 86593 05140 1 Once daily By Mouth False Sotalol 120 mg tablet [generic] 120 mg By Mouth Twice daily For SVT 120 mg 2024 Active 2024 84486 80423 1 Twice daily By Mouth False Rosuvastati n 20 mg tablet [generic] 20 mg By Mouth Once daily For HLD 20 mg 2024 Active 2024 00370 18410 0 Once daily By Mouth False Arformotero l 15 mcg/2 mL solution for nebulizatio n [generic] 15 mcg Inhalation Twice daily For copd/asthma/ interstitial lung disease 15 mcg 06/20 Inactiv e 2024 64364 06161 0 Twice daily Inhala tion False Budesonide 0.5 mg/2 mL suspension for nebulizatio n [generic] 0.5 mg Inhalation Twice daily For copd/ asthma/ interstital lung disease 0.5 mg 2024 Active 2024 05037 49963 8 Twice daily Inhala tion False Furosemide 40 mg tablet [generic] 40 mg By Mouth Once daily For chronic diastolic CHF 40 mg 2024 Active 2024 92540 42411 0 Once daily By Mouth False Furosemide 40 mg tablet [generic] 40 mg By Mouth Once daily For chronic diastolic CHF 40 mg 2024 Active 2024 25632 46824 0 Once daily By Mouth False Ventolin HFA 90 mcg/actuati on aerosol inhaler 2 puff Inhalation Every 6 hours as needed For SOB/ wheeze 2 puff 2024 Active 2024 48537 80254 0 Every 6 hours as needed Inhala tion False Amitriptyli ne 25 mg tablet [generic] 25 mg By Mouth At bedtime For general anxiety disorder 25 mg 06/26 Inactiv e 2024 55287 99743 1 At bedtime By Mouth False Levothyroxi ne 125 mcg tablet [generic] 125 mcg By Mouth Once daily For hypothyroidis m 125 mcg 2024 Active 2024 98252 50335 0 Once daily By Mouth False Arformotero l 15 mcg/2 mL solution for nebulizatio n [generic] 06/20 Inactiv e 2024 62951 80190 0 Arformotero l 15 mcg/2 mL solution for nebulizatio n [generic] 15 mcg Inhalation Twice daily For copd/asthma/ interstitial lung disease 15 mcg 2024 Active 2024 68985 14970 0 Twice daily Inhala tion False Clonazepam 0.5 mg tablet [generic] 0.5mg By Mouth As Needed q12 hour PRN For anxiety 0.5mg 2024 Active 2024 44172 79929 0 By Mouth False Colace 100 mg capsule 100 mg By Mouth Twice daily For Constipation 100 mg 2024 Active 2024 08949 98917 1 Twice daily By Mouth False Boost 0.04 gram-1 kcal/mL oral liquid 1 carton By Mouth 3 times a day For malnutrition 1 carton 2024 Active 2024 16550 42571 9 3 times a day By Mouth False Amitriptyli ne 10 mg tablet [generic] 10mg By Mouth At bedtime along with 25 mg dose to equal 35mg For anxiety 10mg 2024 Active 2024 57054 96886 1 At bedtime By Mouth False Amitriptyli ne 25 mg tablet [generic] 06/26 Inactiv e 2024 63826 83891 1 Amitriptyli ne 25 mg tablet [generic] 25 mg By Mouth At bedtime Along with 10mg to equal 35mg. for anxiety 25 mg 2024 Active 2024 28405 34864 1 At bedtime By Mouth False Betadine Swabsticks 10 % 1 scott Topical Twice daily to bilateral heels For stage 2 pressure injury 1 scott 2024 Active 2024 39101 07036 1 Twice daily Topica l False Problems [...] weight Temperature SpO2 Blood Sugar Pulse Respirations 93756 102 85520 9 83.00 mm[Hg] - Lying Down 170.00 mm[Hg] - Lying Down 98.20 Forehead Scan 98.00 % 86.00/ min 18.00/min 60827 102 00647 4 83.00 mm[Hg] - Sitting 170.00 mm[Hg] - Sitting 98.20 Tympanic 86.00/ min 18.00/min 17839 103 28819 5 98.20 Tympanic 68884 103 08260 3 80.00 mm[Hg] - Lying Down 164.00 mm[Hg] - Lying Down 91.00/ min 20.00/min 23096 103 08516 0 80.00 mm[Hg] - Sitting 164.00 mm[Hg] - Sitting 98.20 Tympanic 91.00/ min 18.00/min 51952 103 95361 7 91.00 % 20.00/min 99081 103 42455 3 94.00 % 18.00/min 13082 103 20609 9 51506 104 80134 6 80.00 mm[Hg] - Sitting 140.00 mm[Hg] - Sitting 98.10 Tympanic 94.00 % 64.00/ min 18.00/min 22142 104 01787 1 80.00 mm[Hg] - Sitting 140.00 mm[Hg] - Sitting 98.10 Tympanic 64.00/ min 18.00/min 23422 104 06362 0 80.00 mm[Hg] - Sitting 140.00 mm[Hg] - Sitting 98.10 Tympanic 64.00/ min 18.00/min 72278 104 27122 7 73.00 mm[Hg] - Sitting 136.00 mm[Hg] - Sitting 97.90 Forehead Scan 95.00 % 74.00/ min 16.00/min 71524 104 09065 8 73.00 mm[Hg] - Sitting 135.00 mm[Hg] - Sitting 98.20 Tympanic 74.00/ min 18.00/min 64569 104 14331 6 95.00 % 18.00/min 83424 104 87651 6 96.00 % 18.00/min 93032 104 40554 4 94.00 % 18.00/min 57061 104 81969 0 18.00/mi n 29364 105 96194 0 73.00 mm[Hg] - Sitting 135.00 mm[Hg] - Sitting 98.20 Tympanic 74.00/ min 18.00/min 07302 105 87542 6 73.00 mm[Hg] - Sitting 135.00 mm[Hg] - Sitting 98.20 Tympanic 74.00/ min 20.00/min 66025 105 25753 3 53.00 mm[Hg] - Sitting 126.00 mm[Hg] - Sitting 97.00 Tympanic 99.00 % 56.00/ min 20.00/min 64100 105 05601 6 93.00 % 20.00/min 08158 105 15127 8 94.00 % 20.00/min 43122 105 46747 3 97.00 % 18.00/min 96856 105 23133 9 96.00 % 18.00/min 68598 106 84090 0 67.00 mm[Hg] - Sitting 150.00 mm[Hg] - Sitting 98.80 Forehead Scan 97.00 % 58.00/ min 16.00/min 10738 107 64404 3 136.00 NI 20388 107 97998 0 59 NI 39307 107 41108 0 61.00 mm[Hg] - Sitting 144.00 mm[Hg] - Sitting 97.90 Tympanic 93.00 % 54.00/ min 16.00/min 82428 107 37274 1 95.00 % 18.00/min 48226 107 93655 0 18.00/mi n 41956 107 85331 6 63.00 mm[Hg] - Sitting 159.00 mm[Hg] - Sitting 60.00/ min 80613 107 49920 6 94.00 % 18.00/min 94433 107 83258 3 95.00 % 18.00/min Immunizations Vaccine Date Status Other 06/20/2024 Completed
--- OUTSIDE RECORDS SUMMARY | 2024-07-19 23:09 | External Medical Summary | Continuity Of Care Document ---
Author Name Unknown Address [address] [address] Organization [facility] () Care Team Providers Care Systems Integration Manager Name Role Phone DO Lopez Amy Primary Care Provider [phone] Allergies Allergy Reaction Start Date End Date [...] 3 0.1 mL 06/23 Inactiv e 2024 81470 76961 0 At bedtime Intrad ermal False Tubersol 5 tub. unit/0.1 mL intradermal injection solution [Tuberculin PPD] 0.1mL Intradermal Once daily For PPD 2nd Step Give 2nd Step PPD Day 1 and Read results Day 3 (schedule 7 days after 1st READ) 0.1mL 07/03 Active 2024 89119 18333 0 Once daily Intrad ermal False Tylenol 325 mg tablet 2 tabs By Mouth Every 4 hours as needed For Pain DO NOT EXCEED 3000 MG APAP/24 Hours 2 tabs 2024 Active 2024 81093 35795 0 Every 4 hours as needed By Mouth False Dulcolax (bisacodyl) 10 mg rectal suppository One Suppository per rectum PRN if Milk of Magnisia ineffective. Give on day 5 of no BM 1 sup 2024 Active 2024 38654 76946 1 Daily as needed Rectal False Fleet Enema 19 gram-7 gram/118 mL Administer per rectum PRN one time if dulcolax suppository not effective. Give on day 6 of no BM 1 2024 Active 2024 42514 84030 6 Daily as needed Rectal False Tylenol 325 mg tablet 2 tabs By Mouth Every 4 hours as needed For Fever >100 DO NOT EXCEED 3000 MG APAP/24 Hours 2 tabs 2024 Active 2024 81372 53882 0 Every 4 hours as needed By Mouth False Eliquis 5 mg tablet 5 mg By Mouth Twice daily For afib 5 mg 2024 Active 2024 88217 96973 1 Twice daily By Mouth False Ferrous sulfate 325 mg (65 mg iron) tablet [generic] 325 mg By Mouth Once daily For supplement 325 mg 2024 Active 2024 77678 58177 5 Once daily By Mouth False Magnesium oxide 400 mg (241.3 mg magnesium) tablet [generic] 400 mg By Mouth Once daily For supplement 400 mg 2024 Active 2024 31727 51334 2 Once daily By Mouth False Protonix 40 mg tablet,bozena yed release 40 mg By Mouth Once daily For GERD 40 mg 2024 Active 2024 42245 81933 1 Once daily By Mouth False Sotalol 120 mg tablet [generic] 120 mg By Mouth Twice daily For SVT 120 mg 2024 Active 2024 01300 51927 1 Twice daily By Mouth False Rosuvastati n 20 mg tablet [generic] 20 mg By Mouth Once daily For HLD 20 mg 2024 Active 2024 54688 59284 0 Once daily By Mouth False Arformotero l 15 mcg/2 mL solution for nebulizatio n [generic] 15 mcg Inhalation Twice daily For copd/asthma/ interstitial lung disease 15 mcg 06/20 Inactiv e 2024 13397 52860 0 Twice daily Inhala tion False Budesonide 0.5 mg/2 mL suspension for nebulizatio n [generic] 0.5 mg Inhalation Twice daily For copd/ asthma/ interstital lung disease 0.5 mg 2024 Active 2024 92555 97292 8 Twice daily Inhala tion False Furosemide 40 mg tablet [generic] 40 mg By Mouth Once daily For chronic diastolic CHF 40 mg 2024 Active 2024 44467 22424 0 Once daily By Mouth False Furosemide 40 mg tablet [generic] 40 mg By Mouth Once daily For chronic diastolic CHF 40 mg 2024 Active 2024 10056 19702 0 Once daily By Mouth False Ventolin HFA 90 mcg/actuati on aerosol inhaler 2 puff Inhalation Every 6 hours as needed For SOB/ wheeze 2 puff 2024 Active 2024 43954 42697 0 Every 6 hours as needed Inhala tion False Amitriptyli ne 25 mg tablet [generic] 25 mg By Mouth At bedtime For general anxiety disorder 25 mg 06/26 Inactiv e 2024 93442 10461 1 At bedtime By Mouth False Levothyroxi ne 125 mcg tablet [generic] 125 mcg By Mouth Once daily For hypothyroidis m 125 mcg 2024 Active 2024 20155 03622 0 Once daily By Mouth False Arformotero l 15 mcg/2 mL solution for nebulizatio n [generic] 06/20 Inactiv e 2024 54242 04615 0 Arformotero l 15 mcg/2 mL solution for nebulizatio n [generic] 15 mcg Inhalation Twice daily For copd/asthma/ interstitial lung disease 15 mcg 2024 Active 2024 04819 05135 0 Twice daily Inhala tion False Clonazepam 0.5 mg tablet [generic] 0.5mg By Mouth As Needed q12 hour PRN For anxiety 0.5mg 2024 Active 2024 52416 21055 0 By Mouth False Colace 100 mg capsule 100 mg By Mouth Twice daily For Constipation 100 mg 2024 Active 2024 67629 44449 1 Twice daily By Mouth False Boost 0.04 gram-1 kcal/mL oral liquid 1 carton By Mouth 3 times a day For malnutrition 1 carton 2024 Active 2024 81362 55380 9 3 times a day By Mouth False Amitriptyli ne 10 mg tablet [generic] 10mg By Mouth At bedtime along with 25 mg dose to equal 35mg For anxiety 10mg 2024 Active 2024 07345 26814 1 At bedtime By Mouth False Amitriptyli ne 25 mg tablet [generic] 06/26 Inactiv e 2024 42542 59952 1 Amitriptyli ne 25 mg tablet [generic] 25 mg By Mouth At bedtime Along with 10mg to equal 35mg. for anxiety 25 mg 2024 Active 2024 19848 67221 1 At bedtime By Mouth False Betadine Swabsticks 10 % 1 scott Topical Twice daily to bilateral heels For stage 2 pressure injury 1 soctt 2024 Active 2024 06994 69137 1 Twice daily Topica l False Problems [...] weight Temperature SpO2 Blood Sugar Pulse Respirations 81559 102 32652 9 83.00 mm[Hg] - Lying Down 170.00 mm[Hg] - Lying Down 98.20 Forehead Scan 98.00 % 86.00/ min 18.00/min 84401 102 95416 4 83.00 mm[Hg] - Sitting 170.00 mm[Hg] - Sitting 98.20 Tympanic 86.00/ min 18.00/min 30063 103 02947 5 98.20 Tympanic 93617 103 57442 3 80.00 mm[Hg] - Lying Down 164.00 mm[Hg] - Lying Down 91.00/ min 20.00/min 30817 103 49923 0 80.00 mm[Hg] - Sitting 164.00 mm[Hg] - Sitting 98.20 Tympanic 91.00/ min 18.00/min 98602 103 04503 7 91.00 % 20.00/min 24987 103 02782 3 94.00 % 18.00/min 04493 103 79401 9 28545 104 59962 6 80.00 mm[Hg] - Sitting 140.00 mm[Hg] - Sitting 98.10 Tympanic 94.00 % 64.00/ min 18.00/min 27595 104 44786 1 80.00 mm[Hg] - Sitting 140.00 mm[Hg] - Sitting 98.10 Tympanic 64.00/ min 18.00/min 65141 104 75430 0 80.00 mm[Hg] - Sitting 140.00 mm[Hg] - Sitting 98.10 Tympanic 64.00/ min 18.00/min 09847 104 91977 7 73.00 mm[Hg] - Sitting 136.00 mm[Hg] - Sitting 97.90 Forehead Scan 95.00 % 74.00/ min 16.00/min 52113 104 86601 8 73.00 mm[Hg] - Sitting 135.00 mm[Hg] - Sitting 98.20 Tympanic 74.00/ min 18.00/min 14550 104 38185 6 95.00 % 18.00/min 33740 104 95810 6 96.00 % 18.00/min 62627 104 91687 4 94.00 % 18.00/min 52922 104 21766 0 18.00/mi n 36692 105 92050 0 73.00 mm[Hg] - Sitting 135.00 mm[Hg] - Sitting 98.20 Tympanic 74.00/ min 18.00/min 63767 105 58834 6 73.00 mm[Hg] - Sitting 135.00 mm[Hg] - Sitting 98.20 Tympanic 74.00/ min 20.00/min 67768 105 60718 3 53.00 mm[Hg] - Sitting 126.00 mm[Hg] - Sitting 97.00 Tympanic 99.00 % 56.00/ min 20.00/min 22259 105 73650 6 93.00 % 20.00/min 49830 105 49219 8 94.00 % 20.00/min 29276 105 12956 3 97.00 % 18.00/min 80104 105 66015 9 96.00 % 18.00/min 03945 106 59844 0 67.00 mm[Hg] - Sitting 150.00 mm[Hg] - Sitting 98.80 Forehead Scan 97.00 % 58.00/ min 16.00/min 66633 107 40682 3 136.00 NI 62767 107 92573 0 59 NI 22785 107 15168 0 61.00 mm[Hg] - Sitting 144.00 mm[Hg] - Sitting 97.90 Tympanic 93.00 % 54.00/ min 16.00/min 49523 107 12104 1 95.00 % 18.00/min 57930 107 82206 0 18.00/mi n 31450 107 46906 6 63.00 mm[Hg] - Sitting 159.00 mm[Hg] - Sitting 60.00/ min 93555 107 49803 6 94.00 % 18.00/min 01447 107 95126 3 95.00 % 18.00/min 37494 108 19445 0 55.00 mm[Hg] - Sitting 127.00 mm[Hg] - Sitting 97.80 Tympanic 95.00 % 55.00/ min 16.00/min 60559 108 09486 8 96.00 % 58024 108 88568 4 95.00 % 20.00/min 25036 108 00538 0 96.00 % 20.00/min 64722 108 40288 2 96.00 % 20.00/min 24422 109 20864 8 94.00 % 18.00/min 98125 109 15281 2 18.00/mi n Immunizations Vaccine Date Status Other 06/20/2024 Completed
--- OUTSIDE RECORDS SUMMARY | 2024-07-19 23:09 | External Medical Summary | Continuity Of Care Document ---
Author Name Unknown Address [address] [address] Organization [facility] () Care Team Providers Care Supervisor [employer] Name Role Phone DO Lopez Amy Primary Care Provider [phone] Allergies Allergy Reaction Start Date End Date [...] 3 0.1 mL 06/23 Inactiv e 2024 28370 72885 0 At bedtime Intrad ermal False Tubersol 5 tub. unit/0.1 mL intradermal injection solution [Tuberculin PPD] 0.1mL Intradermal Once daily For PPD 2nd Step Give 2nd Step PPD Day 1 and Read results Day 3 (schedule 7 days after 1st READ) 0.1mL 07/03 Active 2024 19830 69982 0 Once daily Intrad ermal False Tylenol 325 mg tablet 2 tabs By Mouth Every 4 hours as needed For Pain DO NOT EXCEED 3000 MG APAP/24 Hours 2 tabs 2024 Active 2024 98549 25759 0 Every 4 hours as needed By Mouth False Dulcolax (bisacodyl) 10 mg rectal suppository One Suppository per rectum PRN if Milk of Magnisia ineffective. Give on day 5 of no BM 1 sup 2024 Active 2024 73864 39552 1 Daily as needed Rectal False Fleet Enema 19 gram-7 gram/118 mL Administer per rectum PRN one time if dulcolax suppository not effective. Give on day 6 of no BM 1 2024 Active 2024 16078 15875 6 Daily as needed Rectal False Tylenol 325 mg tablet 2 tabs By Mouth Every 4 hours as needed For Fever >100 DO NOT EXCEED 3000 MG APAP/24 Hours 2 tabs 2024 Active 2024 80143 33283 0 Every 4 hours as needed By Mouth False Eliquis 5 mg tablet 5 mg By Mouth Twice daily For afib 5 mg 2024 Active 2024 18394 62562 1 Twice daily By Mouth False Ferrous sulfate 325 mg (65 mg iron) tablet [generic] 325 mg By Mouth Once daily For supplement 325 mg 2024 Active 2024 14325 15230 5 Once daily By Mouth False Magnesium oxide 400 mg (241.3 mg magnesium) tablet [generic] 400 mg By Mouth Once daily For supplement 400 mg 2024 Active 2024 67356 22310 2 Once daily By Mouth False Protonix 40 mg tablet,bozena yed release 40 mg By Mouth Once daily For GERD 40 mg 2024 Active 2024 73671 37688 1 Once daily By Mouth False Sotalol 120 mg tablet [generic] 120 mg By Mouth Twice daily For SVT 120 mg 2024 Active 2024 67434 50860 1 Twice daily By Mouth False Rosuvastati n 20 mg tablet [generic] 20 mg By Mouth Once daily For HLD 20 mg 2024 Active 2024 07522 14378 0 Once daily By Mouth False Arformotero l 15 mcg/2 mL solution for nebulizatio n [generic] 15 mcg Inhalation Twice daily For copd/asthma/ interstitial lung disease 15 mcg 06/20 Inactiv e 2024 01013 31781 0 Twice daily Inhala tion False Budesonide 0.5 mg/2 mL suspension for nebulizatio n [generic] 0.5 mg Inhalation Twice daily For copd/ asthma/ interstital lung disease 0.5 mg 2024 Active 2024 20953 09438 8 Twice daily Inhala tion False Furosemide 40 mg tablet [generic] 40 mg By Mouth Once daily For chronic diastolic CHF 40 mg 2024 Active 2024 43001 99222 0 Once daily By Mouth False Furosemide 40 mg tablet [generic] 40 mg By Mouth Once daily For chronic diastolic CHF 40 mg 2024 Active 2024 78037 00005 0 Once daily By Mouth False Ventolin HFA 90 mcg/actuati on aerosol inhaler 2 puff Inhalation Every 6 hours as needed For SOB/ wheeze 2 puff 2024 Active 2024 10638 64322 0 Every 6 hours as needed Inhala tion False Amitriptyli ne 25 mg tablet [generic] 25 mg By Mouth At bedtime For general anxiety disorder 25 mg 06/26 Inactiv e 2024 78659 53134 1 At bedtime By Mouth False Levothyroxi ne 125 mcg tablet [generic] 125 mcg By Mouth Once daily For hypothyroidis m 125 mcg 2024 Active 2024 76160 28066 0 Once daily By Mouth False Arformotero l 15 mcg/2 mL solution for nebulizatio n [generic] 06/20 Inactiv e 2024 38240 09362 0 Arformotero l 15 mcg/2 mL solution for nebulizatio n [generic] 15 mcg Inhalation Twice daily For copd/asthma/ interstitial lung disease 15 mcg 2024 Active 2024 74186 56187 0 Twice daily Inhala tion False Clonazepam 0.5 mg tablet [generic] 0.5mg By Mouth As Needed q12 hour PRN For anxiety 0.5mg 2024 Active 2024 31373 33938 0 By Mouth False Colace 100 mg capsule 100 mg By Mouth Twice daily For Constipation 100 mg 2024 Active 2024 67469 14496 1 Twice daily By Mouth False Boost 0.04 gram-1 kcal/mL oral liquid 1 carton By Mouth 3 times a day For malnutrition 1 carton 2024 Active 2024 00462 05256 9 3 times a day By Mouth False Amitriptyli ne 10 mg tablet [generic] 10mg By Mouth At bedtime along with 25 mg dose to equal 35mg For anxiety 10mg 2024 Active 2024 35406 10000 1 At bedtime By Mouth False Amitriptyli ne 25 mg tablet [generic] 06/26 Inactiv e 2024 82303 28213 1 Amitriptyli ne 25 mg tablet [generic] 25 mg By Mouth At bedtime Along with 10mg to equal 35mg. for anxiety 25 mg 2024 Active 2024 62943 48588 1 At bedtime By Mouth False Betadine Swabsticks 10 % 1 scott Topical Twice daily to bilateral heels For stage 2 pressure injury 1 scott 2024 Active 2024 15702 78639 1 Twice daily Topica l False Problems [...] weight Temperature SpO2 Blood Sugar Pulse Respirations 52637 102 84563 9 83.00 mm[Hg] - Lying Down 170.00 mm[Hg] - Lying Down 98.20 Forehead Scan 98.00 % 86.00/ min 18.00/min 92337 102 97639 4 83.00 mm[Hg] - Sitting 170.00 mm[Hg] - Sitting 98.20 Tympanic 86.00/ min 18.00/min 83416 103 72223 5 98.20 Tympanic 11424 103 59876 3 80.00 mm[Hg] - Lying Down 164.00 mm[Hg] - Lying Down 91.00/ min 20.00/min 94295 103 12405 0 80.00 mm[Hg] - Sitting 164.00 mm[Hg] - Sitting 98.20 Tympanic 91.00/ min 18.00/min 29163 103 32301 7 91.00 % 20.00/min 65978 103 36792 3 94.00 % 18.00/min 02682 103 22906 9 88117 104 18635 6 80.00 mm[Hg] - Sitting 140.00 mm[Hg] - Sitting 98.10 Tympanic 94.00 % 64.00/ min 18.00/min 26607 104 42167 1 80.00 mm[Hg] - Sitting 140.00 mm[Hg] - Sitting 98.10 Tympanic 64.00/ min 18.00/min 48899 104 47447 0 80.00 mm[Hg] - Sitting 140.00 mm[Hg] - Sitting 98.10 Tympanic 64.00/ min 18.00/min 17278 104 09676 7 73.00 mm[Hg] - Sitting 136.00 mm[Hg] - Sitting 97.90 Forehead Scan 95.00 % 74.00/ min 16.00/min 19772 104 62681 8 73.00 mm[Hg] - Sitting 135.00 mm[Hg] - Sitting 98.20 Tympanic 74.00/ min 18.00/min 49706 104 08237 6 95.00 % 18.00/min 19260 104 22861 6 96.00 % 18.00/min 06438 104 24610 4 94.00 % 18.00/min 90950 104 62546 0 18.00/mi n 70184 105 94014 0 73.00 mm[Hg] - Sitting 135.00 mm[Hg] - Sitting 98.20 Tympanic 74.00/ min 18.00/min 10396 105 85892 6 73.00 mm[Hg] - Sitting 135.00 mm[Hg] - Sitting 98.20 Tympanic 74.00/ min 20.00/min 56310 105 81952 3 53.00 mm[Hg] - Sitting 126.00 mm[Hg] - Sitting 97.00 Tympanic 99.00 % 56.00/ min 20.00/min 89297 105 57682 6 93.00 % 20.00/min 39260 105 73241 8 94.00 % 20.00/min 23535 105 31948 3 97.00 % 18.00/min 01940 105 17611 9 96.00 % 18.00/min 13610 106 77709 0 67.00 mm[Hg] - Sitting 150.00 mm[Hg] - Sitting 98.80 Forehead Scan 97.00 % 58.00/ min 16.00/min 38863 107 19828 3 136.00 NI 94603 107 35440 0 59 NI 00481 107 11889 0 61.00 mm[Hg] - Sitting 144.00 mm[Hg] - Sitting 97.90 Tympanic 93.00 % 54.00/ min 16.00/min 73447 107 59615 1 95.00 % 18.00/min 19121 107 41544 0 18.00/mi n 81561 107 27542 6 63.00 mm[Hg] - Sitting 159.00 mm[Hg] - Sitting 60.00/ min 35805 107 69170 6 94.00 % 18.00/min 54337 107 38199 3 95.00 % 18.00/min 42658 108 23475 4 95.00 % 20.00/min Immunizations Vaccine Date Status Other 06/20/2024 Completed
--- OUTSIDE RECORDS SUMMARY | 2024-07-19 23:09 | External Medical Summary | Continuity Of Care Document ---
Author Name Unknown Address [address] [address] Organization [facility] () Care Team Providers Care Mobility Developer Name Role Phone DO Lopez Amy Primary Care Provider [phone] Allergies Allergy Reaction Start Date End Date [...] 3 0.1 mL 06/23 Inactiv e 2024 37881 29035 0 At bedtime Intrad ermal False Tubersol 5 tub. unit/0.1 mL intradermal injection solution [Tuberculin PPD] 0.1mL Intradermal Once daily For PPD 2nd Step Give 2nd Step PPD Day 1 and Read results Day 3 (schedule 7 days after 1st READ) 0.1mL 07/03 Active 2024 16343 25649 0 Once daily Intrad ermal False Tylenol 325 mg tablet 2 tabs By Mouth Every 4 hours as needed For Pain DO NOT EXCEED 3000 MG APAP/24 Hours 2 tabs 2024 Active 2024 02502 44560 0 Every 4 hours as needed By Mouth False Dulcolax (bisacodyl) 10 mg rectal suppository One Suppository per rectum PRN if Milk of Magnisia ineffective. Give on day 5 of no BM 1 sup 2024 Active 2024 22350 17106 1 Daily as needed Rectal False Fleet Enema 19 gram-7 gram/118 mL Administer per rectum PRN one time if dulcolax suppository not effective. Give on day 6 of no BM 1 2024 Active 2024 85386 42603 6 Daily as needed Rectal False Tylenol 325 mg tablet 2 tabs By Mouth Every 4 hours as needed For Fever >100 DO NOT EXCEED 3000 MG APAP/24 Hours 2 tabs 2024 Active 2024 89721 58501 0 Every 4 hours as needed By Mouth False Eliquis 5 mg tablet 5 mg By Mouth Twice daily For afib 5 mg 2024 Active 2024 38122 34753 1 Twice daily By Mouth False Ferrous sulfate 325 mg (65 mg iron) tablet [generic] 325 mg By Mouth Once daily For supplement 325 mg 2024 Active 2024 93328 55749 5 Once daily By Mouth False Magnesium oxide 400 mg (241.3 mg magnesium) tablet [generic] 400 mg By Mouth Once daily For supplement 400 mg 2024 Active 2024 89428 17518 2 Once daily By Mouth False Protonix 40 mg tablet,bozena yed release 40 mg By Mouth Once daily For GERD 40 mg 2024 Active 2024 11061 03701 1 Once daily By Mouth False Sotalol 120 mg tablet [generic] 120 mg By Mouth Twice daily For SVT 120 mg 2024 Active 2024 66918 35886 1 Twice daily By Mouth False Rosuvastati n 20 mg tablet [generic] 20 mg By Mouth Once daily For HLD 20 mg 2024 Active 2024 36604 64345 0 Once daily By Mouth False Arformotero l 15 mcg/2 mL solution for nebulizatio n [generic] 15 mcg Inhalation Twice daily For copd/asthma/ interstitial lung disease 15 mcg 06/20 Inactiv e 2024 69753 98217 0 Twice daily Inhala tion False Budesonide 0.5 mg/2 mL suspension for nebulizatio n [generic] 0.5 mg Inhalation Twice daily For copd/ asthma/ interstital lung disease 0.5 mg 2024 Active 2024 36136 35820 8 Twice daily Inhala tion False Furosemide 40 mg tablet [generic] 40 mg By Mouth Once daily For chronic diastolic CHF 40 mg 2024 Active 2024 23991 25380 0 Once daily By Mouth False Furosemide 40 mg tablet [generic] 40 mg By Mouth Once daily For chronic diastolic CHF 40 mg 2024 Active 2024 66857 59320 0 Once daily By Mouth False Ventolin HFA 90 mcg/actuati on aerosol inhaler 2 puff Inhalation Every 6 hours as needed For SOB/ wheeze 2 puff 2024 Active 2024 51466 88243 0 Every 6 hours as needed Inhala tion False Amitriptyli ne 25 mg tablet [generic] 25 mg By Mouth At bedtime For general anxiety disorder 25 mg 06/26 Inactiv e 2024 77520 09395 1 At bedtime By Mouth False Levothyroxi ne 125 mcg tablet [generic] 125 mcg By Mouth Once daily For hypothyroidis m 125 mcg 2024 Active 2024 88648 44757 0 Once daily By Mouth False Arformotero l 15 mcg/2 mL solution for nebulizatio n [generic] 06/20 Inactiv e 2024 24634 35854 0 Arformotero l 15 mcg/2 mL solution for nebulizatio n [generic] 15 mcg Inhalation Twice daily For copd/asthma/ interstitial lung disease 15 mcg 2024 Active 2024 83059 17929 0 Twice daily Inhala tion False Clonazepam 0.5 mg tablet [generic] 0.5mg By Mouth As Needed q12 hour PRN For anxiety 0.5mg 2024 Active 2024 72954 18086 0 By Mouth False Colace 100 mg capsule 100 mg By Mouth Twice daily For Constipation 100 mg 2024 Active 2024 83653 27277 1 Twice daily By Mouth False Boost 0.04 gram-1 kcal/mL oral liquid 1 carton By Mouth 3 times a day For malnutrition 1 carton 2024 Active 2024 49441 62372 9 3 times a day By Mouth False Amitriptyli ne 10 mg tablet [generic] 10mg By Mouth At bedtime along with 25 mg dose to equal 35mg For anxiety 10mg 2024 Active 2024 38654 31506 1 At bedtime By Mouth False Amitriptyli ne 25 mg tablet [generic] 06/26 Inactiv e 2024 14832 74718 1 Amitriptyli ne 25 mg tablet [generic] 25 mg By Mouth At bedtime Along with 10mg to equal 35mg. for anxiety 25 mg 2024 Active 2024 62358 88216 1 At bedtime By Mouth False Betadine Swabsticks 10 % 1 scott Topical Twice daily to bilateral heels For stage 2 pressure injury 1 scott 2024 Active 2024 40913 69019 1 Twice daily Topica l False Problems [...] weight Temperature SpO2 Blood Sugar Pulse Respirations 06137 102 57046 9 83.00 mm[Hg] - Lying Down 170.00 mm[Hg] - Lying Down 98.20 Forehead Scan 98.00 % 86.00/ min 18.00/min 43687 102 37094 4 83.00 mm[Hg] - Sitting 170.00 mm[Hg] - Sitting 98.20 Tympanic 86.00/ min 18.00/min 21780 103 84235 5 98.20 Tympanic 75591 103 57622 3 80.00 mm[Hg] - Lying Down 164.00 mm[Hg] - Lying Down 91.00/ min 20.00/min 57492 103 46880 0 80.00 mm[Hg] - Sitting 164.00 mm[Hg] - Sitting 98.20 Tympanic 91.00/ min 18.00/min 76162 103 26913 7 91.00 % 20.00/min 30360 103 56105 3 94.00 % 18.00/min 47521 103 61197 9 23798 104 74730 6 80.00 mm[Hg] - Sitting 140.00 mm[Hg] - Sitting 98.10 Tympanic 94.00 % 64.00/ min 18.00/min 39798 104 40213 1 80.00 mm[Hg] - Sitting 140.00 mm[Hg] - Sitting 98.10 Tympanic 64.00/ min 18.00/min 12944 104 32070 0 80.00 mm[Hg] - Sitting 140.00 mm[Hg] - Sitting 98.10 Tympanic 64.00/ min 18.00/min 64893 104 10838 7 73.00 mm[Hg] - Sitting 136.00 mm[Hg] - Sitting 97.90 Forehead Scan 95.00 % 74.00/ min 16.00/min 28354 104 77667 8 73.00 mm[Hg] - Sitting 135.00 mm[Hg] - Sitting 98.20 Tympanic 74.00/ min 18.00/min 15189 104 54496 6 95.00 % 18.00/min 08989 104 41573 6 96.00 % 18.00/min 06828 104 34163 4 94.00 % 18.00/min 54567 104 82651 0 18.00/mi n 09231 105 76593 0 73.00 mm[Hg] - Sitting 135.00 mm[Hg] - Sitting 98.20 Tympanic 74.00/ min 18.00/min 42572 105 63924 6 73.00 mm[Hg] - Sitting 135.00 mm[Hg] - Sitting 98.20 Tympanic 74.00/ min 20.00/min 75781 105 70656 3 53.00 mm[Hg] - Sitting 126.00 mm[Hg] - Sitting 97.00 Tympanic 99.00 % 56.00/ min 20.00/min 87340 105 18801 6 93.00 % 20.00/min 11927 105 81511 8 94.00 % 20.00/min 79169 105 19879 3 97.00 % 18.00/min 12577 105 26013 9 96.00 % 18.00/min 73085 106 85080 0 67.00 mm[Hg] - Sitting 150.00 mm[Hg] - Sitting 98.80 Forehead Scan 97.00 % 58.00/ min 16.00/min 71985 107 31040 3 136.00 NI 06104 107 52813 0 59 NI 81444 107 53068 0 61.00 mm[Hg] - Sitting 144.00 mm[Hg] - Sitting 97.90 Tympanic 93.00 % 54.00/ min 16.00/min 08233 107 38691 1 95.00 % 18.00/min 19978 107 42843 0 18.00/mi n 01780 107 81290 6 63.00 mm[Hg] - Sitting 159.00 mm[Hg] - Sitting 60.00/ min 89448 107 61071 6 94.00 % 18.00/min 22291 107 43006 3 95.00 % 18.00/min Immunizations Vaccine Date Status Other 06/20/2024 Completed
--- OUTSIDE RECORDS SUMMARY | 2024-07-19 23:09 | External Medical Summary | Continuity Of Care Document ---
Author Name Unknown Address [address] [address] Organization [facility] () Care Team Providers Care Bit Shaver Name Role Phone DO Lopez Amy Primary Care Provider [phone] Allergies Allergy Reaction Start Date End Date [...] 3 0.1 mL 06/23 Inactiv e 2024 90172 12713 0 At bedtime Intrad ermal False Tubersol 5 tub. unit/0.1 mL intradermal injection solution [Tuberculin PPD] 0.1mL Intradermal Once daily For PPD 2nd Step Give 2nd Step PPD Day 1 and Read results Day 3 (schedule 7 days after 1st READ) 0.1mL 07/03 Active 2024 19430 07208 0 Once daily Intrad ermal False Tylenol 325 mg tablet 2 tabs By Mouth Every 4 hours as needed For Pain DO NOT EXCEED 3000 MG APAP/24 Hours 2 tabs 2024 Active 2024 57581 26770 0 Every 4 hours as needed By Mouth False Dulcolax (bisacodyl) 10 mg rectal suppository One Suppository per rectum PRN if Milk of Magnisia ineffective. Give on day 5 of no BM 1 sup 2024 Active 2024 55588 65607 1 Daily as needed Rectal False Fleet Enema 19 gram-7 gram/118 mL Administer per rectum PRN one time if dulcolax suppository not effective. Give on day 6 of no BM 1 2024 Active 2024 48542 94845 6 Daily as needed Rectal False Tylenol 325 mg tablet 2 tabs By Mouth Every 4 hours as needed For Fever >100 DO NOT EXCEED 3000 MG APAP/24 Hours 2 tabs 2024 Active 2024 42003 38329 0 Every 4 hours as needed By Mouth False Eliquis 5 mg tablet 5 mg By Mouth Twice daily For afib 5 mg 2024 Active 2024 64142 93933 1 Twice daily By Mouth False Ferrous sulfate 325 mg (65 mg iron) tablet [generic] 325 mg By Mouth Once daily For supplement 325 mg 2024 Active 2024 17121 32990 5 Once daily By Mouth False Magnesium oxide 400 mg (241.3 mg magnesium) tablet [generic] 400 mg By Mouth Once daily For supplement 400 mg 2024 Active 2024 91704 93559 2 Once daily By Mouth False Protonix 40 mg tablet,bozena yed release 40 mg By Mouth Once daily For GERD 40 mg 2024 Active 2024 08336 40640 1 Once daily By Mouth False Sotalol 120 mg tablet [generic] 120 mg By Mouth Twice daily For SVT 120 mg 2024 Active 2024 20248 71176 1 Twice daily By Mouth False Rosuvastati n 20 mg tablet [generic] 20 mg By Mouth Once daily For HLD 20 mg 2024 Active 2024 09633 09085 0 Once daily By Mouth False Arformotero l 15 mcg/2 mL solution for nebulizatio n [generic] 15 mcg Inhalation Twice daily For copd/asthma/ interstitial lung disease 15 mcg 06/20 Inactiv e 2024 00536 79845 0 Twice daily Inhala tion False Budesonide 0.5 mg/2 mL suspension for nebulizatio n [generic] 0.5 mg Inhalation Twice daily For copd/ asthma/ interstital lung disease 0.5 mg 2024 Active 2024 31398 47714 8 Twice daily Inhala tion False Furosemide 40 mg tablet [generic] 40 mg By Mouth Once daily For chronic diastolic CHF 40 mg 2024 Active 2024 91137 04534 0 Once daily By Mouth False Furosemide 40 mg tablet [generic] 40 mg By Mouth Once daily For chronic diastolic CHF 40 mg 2024 Active 2024 40069 90010 0 Once daily By Mouth False Ventolin HFA 90 mcg/actuati on aerosol inhaler 2 puff Inhalation Every 6 hours as needed For SOB/ wheeze 2 puff 2024 Active 2024 99480 37939 0 Every 6 hours as needed Inhala tion False Amitriptyli ne 25 mg tablet [generic] 25 mg By Mouth At bedtime For general anxiety disorder 25 mg 2024 Active 2024 26442 70905 1 At bedtime By Mouth False Levothyroxi ne 125 mcg tablet [generic] 125 mcg By Mouth Once daily For hypothyroidis m 125 mcg 2024 Active 2024 32418 64438 0 Once daily By Mouth False Arformotero l 15 mcg/2 mL solution for nebulizatio n [generic] 06/20 Inactiv e 2024 17269 25167 0 Arformotero l 15 mcg/2 mL solution for nebulizatio n [generic] 15 mcg Inhalation Twice daily For copd/asthma/ interstitial lung disease 15 mcg 2024 Active 2024 04785 17242 0 Twice daily Inhala tion False Clonazepam 0.5 mg tablet [generic] 0.5mg By Mouth As Needed q12 hour PRN For anxiety 0.5mg 2024 Active 2024 04510 78723 0 By Mouth False Colace 100 mg capsule 100 mg By Mouth Twice daily For Constipation 100 mg 2024 Active 2024 12693 41925 1 Twice daily By Mouth False Boost 0.04 gram-1 kcal/mL oral liquid 1 carton By Mouth 3 times a day For malnutrition 1 carton 2024 Active 2024 01073 33978 9 3 times a day By Mouth False Betadine Swabsticks 10 % 1 scott Topical Twice daily to bilateral heels For stage 2 pressure injury 1 scott 2024 Active 2024 45018 64000 1 Twice daily Topica l False Problems [...] weight Temperature SpO2 Blood Sugar Pulse Respirations 05702 102 25046 9 83.00 mm[Hg] - Lying Down 170.00 mm[Hg] - Lying Down 98.20 Forehead Scan 98.00 % 86.00/ min 18.00/min 24607 102 36109 4 83.00 mm[Hg] - Sitting 170.00 mm[Hg] - Sitting 98.20 Tympanic 86.00/ min 18.00/min 62890 103 45030 5 98.20 Tympanic 85217 103 73030 3 80.00 mm[Hg] - Lying Down 164.00 mm[Hg] - Lying Down 91.00/ min 20.00/min 64207 103 22804 0 80.00 mm[Hg] - Sitting 164.00 mm[Hg] - Sitting 98.20 Tympanic 91.00/ min 18.00/min 21135 103 39712 7 91.00 % 20.00/min 98918 103 34231 3 94.00 % 18.00/min 68693 103 57250 9 78073 104 76563 6 80.00 mm[Hg] - Sitting 140.00 mm[Hg] - Sitting 98.10 Tympanic 94.00 % 64.00/ min 18.00/min 69546 104 32198 1 80.00 mm[Hg] - Sitting 140.00 mm[Hg] - Sitting 98.10 Tympanic 64.00/ min 18.00/min 23290 104 79914 0 80.00 mm[Hg] - Sitting 140.00 mm[Hg] - Sitting 98.10 Tympanic 64.00/ min 18.00/min 70370 104 60093 7 73.00 mm[Hg] - Sitting 136.00 mm[Hg] - Sitting 97.90 Forehead Scan 95.00 % 74.00/ min 16.00/min 33502 104 25075 8 73.00 mm[Hg] - Sitting 135.00 mm[Hg] - Sitting 98.20 Tympanic 74.00/ min 18.00/min 82869 104 58340 6 95.00 % 18.00/min 05571 104 79448 6 96.00 % 18.00/min 42636 104 39600 4 94.00 % 18.00/min 77793 104 89818 0 18.00/mi n 27205 105 15140 0 73.00 mm[Hg] - Sitting 135.00 mm[Hg] - Sitting 98.20 Tympanic 74.00/ min 18.00/min 00328 105 89296 6 73.00 mm[Hg] - Sitting 135.00 mm[Hg] - Sitting 98.20 Tympanic 74.00/ min 20.00/min 89963 105 36278 3 53.00 mm[Hg] - Sitting 126.00 mm[Hg] - Sitting 97.00 Tympanic 99.00 % 56.00/ min 20.00/min 68296 105 84059 6 93.00 % 20.00/min 45559 105 38779 8 94.00 % 20.00/min 68730 105 07791 3 97.00 % 18.00/min 12679 105 12577 9 96.00 % 18.00/min 36496 106 74967 0 67.00 mm[Hg] - Sitting 150.00 mm[Hg] - Sitting 98.80 Forehead Scan 97.00 % 58.00/ min 16.00/min 33339 107 42959 3 136.00 NI 98660 107 76139 0 59 NI 47646 107 15804 1 95.00 % 18.00/min 92335 107 98958 0 18.00/mi n 80015 107 93016 6 63.00 mm[Hg] - Sitting 159.00 mm[Hg] - Sitting 60.00/ min Immunizations Vaccine Date Status Other 06/20/2024 Completed
--- OUTSIDE RECORDS SUMMARY | 2024-07-19 23:09 | External Medical Summary | Continuity Of Care Document ---
Author Name Unknown Address [address] [address] Organization [facility] () Care Team Providers Care Wine Merchant Name Role Phone DO Lopez Amy Primary Care Provider [phone] Allergies Allergy Reaction Start Date End Date [...] 3 0.1 mL 06/23 Inactiv e 2024 88419 84075 0 At bedtime Intrad ermal False Tubersol 5 tub. unit/0.1 mL intradermal injection solution [Tuberculin PPD] 0.1mL Intradermal Once daily For PPD 2nd Step Give 2nd Step PPD Day 1 and Read results Day 3 (schedule 7 days after 1st READ) 0.1mL 07/03 Active 2024 59475 74105 0 Once daily Intrad ermal False Tylenol 325 mg tablet 2 tabs By Mouth Every 4 hours as needed For Pain DO NOT EXCEED 3000 MG APAP/24 Hours 2 tabs 2024 Active 2024 35629 26997 0 Every 4 hours as needed By Mouth False Dulcolax (bisacodyl) 10 mg rectal suppository One Suppository per rectum PRN if Milk of Magnisia ineffective. Give on day 5 of no BM 1 sup 2024 Active 2024 98745 89176 1 Daily as needed Rectal False Fleet Enema 19 gram-7 gram/118 mL Administer per rectum PRN one time if dulcolax suppository not effective. Give on day 6 of no BM 1 2024 Active 2024 36178 64816 6 Daily as needed Rectal False Tylenol 325 mg tablet 2 tabs By Mouth Every 4 hours as needed For Fever >100 DO NOT EXCEED 3000 MG APAP/24 Hours 2 tabs 2024 Active 2024 87425 55826 0 Every 4 hours as needed By Mouth False Eliquis 5 mg tablet 5 mg By Mouth Twice daily For afib 5 mg 2024 Active 2024 97714 13877 1 Twice daily By Mouth False Ferrous sulfate 325 mg (65 mg iron) tablet [generic] 325 mg By Mouth Once daily For supplement 325 mg 2024 Active 2024 19555 22610 5 Once daily By Mouth False Magnesium oxide 400 mg (241.3 mg magnesium) tablet [generic] 400 mg By Mouth Once daily For supplement 400 mg 2024 Active 2024 57209 86899 2 Once daily By Mouth False Protonix 40 mg tablet,bozena yed release 40 mg By Mouth Once daily For GERD 40 mg 2024 Active 2024 81410 44644 1 Once daily By Mouth False Sotalol 120 mg tablet [generic] 120 mg By Mouth Twice daily For SVT 120 mg 2024 Active 2024 37345 51588 1 Twice daily By Mouth False Rosuvastati n 20 mg tablet [generic] 20 mg By Mouth Once daily For HLD 20 mg 2024 Active 2024 13436 62317 0 Once daily By Mouth False Arformotero l 15 mcg/2 mL solution for nebulizatio n [generic] 15 mcg Inhalation Twice daily For copd/asthma/ interstitial lung disease 15 mcg 06/20 Inactiv e 2024 72140 41172 0 Twice daily Inhala tion False Budesonide 0.5 mg/2 mL suspension for nebulizatio n [generic] 0.5 mg Inhalation Twice daily For copd/ asthma/ interstital lung disease 0.5 mg 2024 Active 2024 68611 87299 8 Twice daily Inhala tion False Furosemide 40 mg tablet [generic] 40 mg By Mouth Once daily For chronic diastolic CHF 40 mg 2024 Active 2024 71950 59687 0 Once daily By Mouth False Furosemide 40 mg tablet [generic] 40 mg By Mouth Once daily For chronic diastolic CHF 40 mg 2024 Active 2024 27886 58809 0 Once daily By Mouth False Ventolin HFA 90 mcg/actuati on aerosol inhaler 2 puff Inhalation Every 6 hours as needed For SOB/ wheeze 2 puff 2024 Active 2024 69782 49827 0 Every 6 hours as needed Inhala tion False Amitriptyli ne 25 mg tablet [generic] 25 mg By Mouth At bedtime For general anxiety disorder 25 mg 2024 Active 2024 64045 29661 1 At bedtime By Mouth False Levothyroxi ne 125 mcg tablet [generic] 125 mcg By Mouth Once daily For hypothyroidis m 125 mcg 2024 Active 2024 89102 99654 0 Once daily By Mouth False Arformotero l 15 mcg/2 mL solution for nebulizatio n [generic] 06/20 Inactiv e 2024 11898 99769 0 Arformotero l 15 mcg/2 mL solution for nebulizatio n [generic] 15 mcg Inhalation Twice daily For copd/asthma/ interstitial lung disease 15 mcg 2024 Active 2024 73271 23507 0 Twice daily Inhala tion False Clonazepam 0.5 mg tablet [generic] 0.5mg By Mouth As Needed q12 hour PRN For anxiety 0.5mg 2024 Active 2024 67753 56011 0 By Mouth False Colace 100 mg capsule 100 mg By Mouth Twice daily For Constipation 100 mg 2024 Active 2024 23402 34498 1 Twice daily By Mouth False Boost 0.04 gram-1 kcal/mL oral liquid 1 carton By Mouth 3 times a day For malnutrition 1 carton 2024 Active 2024 72068 08265 9 3 times a day By Mouth False Amitriptyli ne 10 mg tablet [generic] 10mg By Mouth At bedtime along with 25 mg dose to equal 35mg For anxiety 10mg 2024 Active 2024 52162 25017 1 At bedtime By Mouth False Betadine Swabsticks 10 % 1 scott Topical Twice daily to bilateral heels For stage 2 pressure injury 1 scott 2024 Active 2024 90045 78213 1 Twice daily Topica l False Problems Code Description Start Date End Date Status R00.0 Tachycardia, unspecified 06/20/2024 Active N17.9 Acute kidney failure, unspecified 06/20/2024 Active E87.6 Hypokalemia 06/20/2024 Active E03.9 Hypothyroidism, unspecified 06/20/2024 00 Active E78.5 Hyperlipidemia, unspecified 06/20/2024 00 Active [...] weight Temperature SpO2 Blood Sugar Pulse Respirations 07354 102 25566 9 83.00 mm[Hg] - Lying Down 170.00 mm[Hg] - Lying Down 98.20 Forehead Scan 98.00 % 86.00/ min 18.00/min 80496 102 41242 4 83.00 mm[Hg] - Sitting 170.00 mm[Hg] - Sitting 98.20 Tympanic 86.00/ min 18.00/min 15229 103 87249 5 98.20 Tympanic 28639 103 16124 3 80.00 mm[Hg] - Lying Down 164.00 mm[Hg] - Lying Down 91.00/ min 20.00/min 51201 103 23664 0 80.00 mm[Hg] - Sitting 164.00 mm[Hg] - Sitting 98.20 Tympanic 91.00/ min 18.00/min 44978 103 55708 7 91.00 % 20.00/min 70611 103 42999 3 94.00 % 18.00/min 63792 103 23275 9 80545 104 14182 6 80.00 mm[Hg] - Sitting 140.00 mm[Hg] - Sitting 98.10 Tympanic 94.00 % 64.00/ min 18.00/min 95438 104 23029 1 80.00 mm[Hg] - Sitting 140.00 mm[Hg] - Sitting 98.10 Tympanic 64.00/ min 18.00/min 46696 104 85082 0 80.00 mm[Hg] - Sitting 140.00 mm[Hg] - Sitting 98.10 Tympanic 64.00/ min 18.00/min 38553 104 29845 7 73.00 mm[Hg] - Sitting 136.00 mm[Hg] - Sitting 97.90 Forehead Scan 95.00 % 74.00/ min 16.00/min 31519 104 53261 8 73.00 mm[Hg] - Sitting 135.00 mm[Hg] - Sitting 98.20 Tympanic 74.00/ min 18.00/min 76922 104 39568 6 95.00 % 18.00/min 97882 104 09976 6 96.00 % 18.00/min 02823 104 10521 4 94.00 % 18.00/min 83078 104 78925 0 18.00/mi n 49108 105 77553 0 73.00 mm[Hg] - Sitting 135.00 mm[Hg] - Sitting 98.20 Tympanic 74.00/ min 18.00/min 62101 105 64714 6 73.00 mm[Hg] - Sitting 135.00 mm[Hg] - Sitting 98.20 Tympanic 74.00/ min 20.00/min 81538 105 71841 3 53.00 mm[Hg] - Sitting 126.00 mm[Hg] - Sitting 97.00 Tympanic 99.00 % 56.00/ min 20.00/min 19430 105 79349 6 93.00 % 20.00/min 90338 105 56271 8 94.00 % 20.00/min 90987 105 88991 3 97.00 % 18.00/min 83648 105 80071 9 96.00 % 18.00/min 13452 106 51177 0 67.00 mm[Hg] - Sitting 150.00 mm[Hg] - Sitting 98.80 Forehead Scan 97.00 % 58.00/ min 16.00/min 30854 107 10223 3 136.00 NI 76231 107 19619 0 59 NI 45959 107 95186 0 61.00 mm[Hg] - Sitting 144.00 mm[Hg] - Sitting 97.90 Tympanic 93.00 % 54.00/ min 16.00/min 71045 107 68076 1 95.00 % 18.00/min 89549 107 03470 0 18.00/mi n 13050 107 12720 6 63.00 mm[Hg] - Sitting 159.00 mm[Hg] - Sitting 60.00/ min 107 6 94.00 % 18.00/min 107 3 95.00 % 18.00/min Immunizations Vaccine Date Status Other 06/20/2024 Completed
--- OUTSIDE RECORDS SUMMARY | 2024-07-19 23:09 | External Medical Summary | Continuity Of Care Document ---
Author Name Unknown Address [address] [address] Organization [facility] () Care Team Providers Care Vat Washer Name Role Phone DO Lopez Amy Primary Care Provider [phone] Allergies Allergy Reaction Start Date End Date [...] 3 0.1 mL 06/23 Inactiv e 2024 02507 16459 0 At bedtime Intrad ermal False Tubersol 5 tub. unit/0.1 mL intradermal injection solution [Tuberculin PPD] 0.1mL Intradermal Once daily For PPD 2nd Step Give 2nd Step PPD Day 1 and Read results Day 3 (schedule 7 days after 1st READ) 0.1mL 07/03 Active 2024 78283 36782 0 Once daily Intrad ermal False Tylenol 325 mg tablet 2 tabs By Mouth Every 4 hours as needed For Pain DO NOT EXCEED 3000 MG APAP/24 Hours 2 tabs 2024 Active 2024 41355 45732 0 Every 4 hours as needed By Mouth False Dulcolax (bisacodyl) 10 mg rectal suppository One Suppository per rectum PRN if Milk of Magnisia ineffective. Give on day 5 of no BM 1 sup 2024 Active 2024 90658 72035 1 Daily as needed Rectal False Fleet Enema 19 gram-7 gram/118 mL Administer per rectum PRN one time if dulcolax suppository not effective. Give on day 6 of no BM 1 2024 Active 2024 79940 20900 6 Daily as needed Rectal False Tylenol 325 mg tablet 2 tabs By Mouth Every 4 hours as needed For Fever >100 DO NOT EXCEED 3000 MG APAP/24 Hours 2 tabs 2024 Active 2024 62407 02689 0 Every 4 hours as needed By Mouth False Eliquis 5 mg tablet 5 mg By Mouth Twice daily For afib 5 mg 2024 Active 2024 72543 33854 1 Twice daily By Mouth False Ferrous sulfate 325 mg (65 mg iron) tablet [generic] 325 mg By Mouth Once daily For supplement 325 mg 2024 Active 2024 12723 19018 5 Once daily By Mouth False Magnesium oxide 400 mg (241.3 mg magnesium) tablet [generic] 400 mg By Mouth Once daily For supplement 400 mg 2024 Active 2024 54610 53120 2 Once daily By Mouth False Protonix 40 mg tablet,bozena yed release 40 mg By Mouth Once daily For GERD 40 mg 2024 Active 2024 04820 66361 1 Once daily By Mouth False Sotalol 120 mg tablet [generic] 120 mg By Mouth Twice daily For SVT 120 mg 2024 Active 2024 04969 85126 1 Twice daily By Mouth False Rosuvastati n 20 mg tablet [generic] 20 mg By Mouth Once daily For HLD 20 mg 2024 Active 2024 26514 53857 0 Once daily By Mouth False Arformotero l 15 mcg/2 mL solution for nebulizatio n [generic] 15 mcg Inhalation Twice daily For copd/asthma/ interstitial lung disease 15 mcg 06/20 Inactiv e 2024 57773 76883 0 Twice daily Inhala tion False Budesonide 0.5 mg/2 mL suspension for nebulizatio n [generic] 0.5 mg Inhalation Twice daily For copd/ asthma/ interstital lung disease 0.5 mg 2024 Active 2024 61857 26375 8 Twice daily Inhala tion False Furosemide 40 mg tablet [generic] 40 mg By Mouth Once daily For chronic diastolic CHF 40 mg 2024 Active 2024 93419 85237 0 Once daily By Mouth False Furosemide 40 mg tablet [generic] 40 mg By Mouth Once daily For chronic diastolic CHF 40 mg 2024 Active 2024 49129 74879 0 Once daily By Mouth False Ventolin HFA 90 mcg/actuati on aerosol inhaler 2 puff Inhalation Every 6 hours as needed For SOB/ wheeze 2 puff 2024 Active 2024 40467 65549 0 Every 6 hours as needed Inhala tion False Amitriptyli ne 25 mg tablet [generic] 25 mg By Mouth At bedtime For general anxiety disorder 25 mg 06/26 Inactiv e 2024 58723 59839 1 At bedtime By Mouth False Levothyroxi ne 125 mcg tablet [generic] 125 mcg By Mouth Once daily For hypothyroidis m 125 mcg 2024 Active 2024 93031 39882 0 Once daily By Mouth False Arformotero l 15 mcg/2 mL solution for nebulizatio n [generic] 06/20 Inactiv e 2024 20344 25036 0 Arformotero l 15 mcg/2 mL solution for nebulizatio n [generic] 15 mcg Inhalation Twice daily For copd/asthma/ interstitial lung disease 15 mcg 2024 Active 2024 17178 05705 0 Twice daily Inhala tion False Clonazepam 0.5 mg tablet [generic] 0.5mg By Mouth As Needed q12 hour PRN For anxiety 0.5mg 2024 Active 2024 07147 50738 0 By Mouth False Colace 100 mg capsule 100 mg By Mouth Twice daily For Constipation 100 mg 2024 Active 2024 61169 02141 1 Twice daily By Mouth False Boost 0.04 gram-1 kcal/mL oral liquid 1 carton By Mouth 3 times a day For malnutrition 1 carton 2024 Active 2024 24776 65742 9 3 times a day By Mouth False Amitriptyli ne 10 mg tablet [generic] 10mg By Mouth At bedtime along with 25 mg dose to equal 35mg For anxiety 10mg 2024 Active 2024 60191 42177 1 At bedtime By Mouth False Amitriptyli ne 25 mg tablet [generic] 06/26 Inactiv e 2024 81513 50446 1 Amitriptyli ne 25 mg tablet [generic] 25 mg By Mouth At bedtime Along with 10mg to equal 35mg. for anxiety 25 mg 2024 Active 2024 87952 79409 1 At bedtime By Mouth False Betadine Swabsticks 10 % 1 scott Topical Twice daily to bilateral heels For stage 2 pressure injury 1 scott 2024 Active 2024 58084 60984 1 Twice daily Topica l False Problems [...] weight Temperature SpO2 Blood Sugar Pulse Respirations 55965 102 87723 9 83.00 mm[Hg] - Lying Down 170.00 mm[Hg] - Lying Down 98.20 Forehead Scan 98.00 % 86.00/ min 18.00/min 48683 102 94100 4 83.00 mm[Hg] - Sitting 170.00 mm[Hg] - Sitting 98.20 Tympanic 86.00/ min 18.00/min 21400 103 82050 5 98.20 Tympanic 78216 103 07563 3 80.00 mm[Hg] - Lying Down 164.00 mm[Hg] - Lying Down 91.00/ min 20.00/min 92621 103 36051 0 80.00 mm[Hg] - Sitting 164.00 mm[Hg] - Sitting 98.20 Tympanic 91.00/ min 18.00/min 25915 103 53532 7 91.00 % 20.00/min 62889 103 12040 3 94.00 % 18.00/min 33378 103 77663 9 04332 104 70586 6 80.00 mm[Hg] - Sitting 140.00 mm[Hg] - Sitting 98.10 Tympanic 94.00 % 64.00/ min 18.00/min 80601 104 82539 1 80.00 mm[Hg] - Sitting 140.00 mm[Hg] - Sitting 98.10 Tympanic 64.00/ min 18.00/min 82053 104 89445 0 80.00 mm[Hg] - Sitting 140.00 mm[Hg] - Sitting 98.10 Tympanic 64.00/ min 18.00/min 23445 104 79761 7 73.00 mm[Hg] - Sitting 136.00 mm[Hg] - Sitting 97.90 Forehead Scan 95.00 % 74.00/ min 16.00/min 19453 104 40214 8 73.00 mm[Hg] - Sitting 135.00 mm[Hg] - Sitting 98.20 Tympanic 74.00/ min 18.00/min 14829 104 64758 6 95.00 % 18.00/min 69755 104 68107 6 96.00 % 18.00/min 86842 104 19081 4 94.00 % 18.00/min 83995 104 67678 0 18.00/mi n 67879 105 56974 0 73.00 mm[Hg] - Sitting 135.00 mm[Hg] - Sitting 98.20 Tympanic 74.00/ min 18.00/min 54087 105 41734 6 73.00 mm[Hg] - Sitting 135.00 mm[Hg] - Sitting 98.20 Tympanic 74.00/ min 20.00/min 99659 105 97441 3 53.00 mm[Hg] - Sitting 126.00 mm[Hg] - Sitting 97.00 Tympanic 99.00 % 56.00/ min 20.00/min 59554 105 81901 6 93.00 % 20.00/min 77788 105 74273 8 94.00 % 20.00/min 78788 105 41369 3 97.00 % 18.00/min 52584 105 60845 9 96.00 % 18.00/min 34605 106 57847 0 67.00 mm[Hg] - Sitting 150.00 mm[Hg] - Sitting 98.80 Forehead Scan 97.00 % 58.00/ min 16.00/min 19689 107 67139 3 136.00 NI [id number] 107 04402 0 59 NI 23932 107 84665 0 61.00 mm[Hg] - Sitting 144.00 mm[Hg] - Sitting 97.90 Tympanic 93.00 % 54.00/ min 16.00/min 91291 107 16636 1 95.00 % 18.00/min 23140 107 59191 0 18.00/mi n 53122 107 69629 6 63.00 mm[Hg] - Sitting 159.00 mm[Hg] - Sitting 60.00/ min 23938 107 96594 6 94.00 % 18.00/min 87130 107 65523 3 95.00 % 18.00/min 20182 108 67402 4 95.00 % 20.00/min 65525 108 70887 0 96.00 % 20.00/min 92789 108 34428 2 96.00 % 20.00/min Immunizations Vaccine Date Status Other 06/20/2024 Completed
--- OUTSIDE RECORDS SUMMARY | 2024-07-19 23:09 | External Medical Summary | Continuity Of Care Document ---
Author Name Unknown Address [address] [address] Organization [facility] () Care Team Providers Care Fast Food Shift Supervisor Name Role Phone DO Lopez Amy Primary Care Provider [phone] Allergies Allergy Reaction Start Date End Date [...] 3 0.1 mL 06/23 Inactiv e 2024 44409 54672 0 At bedtime Intrad ermal False Tubersol 5 tub. unit/0.1 mL intradermal injection solution [Tuberculin PPD] 0.1mL Intradermal Once daily For PPD 2nd Step Give 2nd Step PPD Day 1 and Read results Day 3 (schedule 7 days after 1st READ) 0.1mL 07/03 Active 2024 99391 34895 0 Once daily Intrad ermal False Tylenol 325 mg tablet 2 tabs By Mouth Every 4 hours as needed For Pain DO NOT EXCEED 3000 MG APAP/24 Hours 2 tabs 2024 Active 2024 39093 10533 0 Every 4 hours as needed By Mouth False Dulcolax (bisacodyl) 10 mg rectal suppository One Suppository per rectum PRN if Milk of Magnisia ineffective. Give on day 5 of no BM 1 sup 2024 Active 2024 43317 20011 1 Daily as needed Rectal False Fleet Enema 19 gram-7 gram/118 mL Administer per rectum PRN one time if dulcolax suppository not effective. Give on day 6 of no BM 1 2024 Active 2024 06863 81605 6 Daily as needed Rectal False Tylenol 325 mg tablet 2 tabs By Mouth Every 4 hours as needed For Fever >100 DO NOT EXCEED 3000 MG APAP/24 Hours 2 tabs 2024 Active 2024 97001 57294 0 Every 4 hours as needed By Mouth False Eliquis 5 mg tablet 5 mg By Mouth Twice daily For afib 5 mg 2024 Active 2024 35623 32596 1 Twice daily By Mouth False Ferrous sulfate 325 mg (65 mg iron) tablet [generic] 325 mg By Mouth Once daily For supplement 325 mg 2024 Active 2024 60048 35131 5 Once daily By Mouth False Magnesium oxide 400 mg (241.3 mg magnesium) tablet [generic] 400 mg By Mouth Once daily For supplement 400 mg 2024 Active 2024 01484 66114 2 Once daily By Mouth False Protonix 40 mg tablet,bozena yed release 40 mg By Mouth Once daily For GERD 40 mg 2024 Active 2024 49139 98102 1 Once daily By Mouth False Sotalol 120 mg tablet [generic] 120 mg By Mouth Twice daily For SVT 120 mg 2024 Active 2024 82200 95847 1 Twice daily By Mouth False Rosuvastati n 20 mg tablet [generic] 20 mg By Mouth Once daily For HLD 20 mg 2024 Active 2024 60307 60604 0 Once daily By Mouth False Arformotero l 15 mcg/2 mL solution for nebulizatio n [generic] 15 mcg Inhalation Twice daily For copd/asthma/ interstitial lung disease 15 mcg 06/20 Inactiv e 2024 16903 11753 0 Twice daily Inhala tion False Budesonide 0.5 mg/2 mL suspension for nebulizatio n [generic] 0.5 mg Inhalation Twice daily For copd/ asthma/ interstital lung disease 0.5 mg 2024 Active 2024 29955 76292 8 Twice daily Inhala tion False Furosemide 40 mg tablet [generic] 40 mg By Mouth Once daily For chronic diastolic CHF 40 mg 2024 Active 2024 53811 15027 0 Once daily By Mouth False Furosemide 40 mg tablet [generic] 40 mg By Mouth Once daily For chronic diastolic CHF 40 mg 2024 Active 2024 40545 22522 0 Once daily By Mouth False Ventolin HFA 90 mcg/actuati on aerosol inhaler 2 puff Inhalation Every 6 hours as needed For SOB/ wheeze 2 puff 2024 Active 2024 67655 52959 0 Every 6 hours as needed Inhala tion False Amitriptyli ne 25 mg tablet [generic] 25 mg By Mouth At bedtime For general anxiety disorder 25 mg 06/26 Inactiv e 2024 51738 74009 1 At bedtime By Mouth False Levothyroxi ne 125 mcg tablet [generic] 125 mcg By Mouth Once daily For hypothyroidis m 125 mcg 2024 Active 2024 22023 97983 0 Once daily By Mouth False Arformotero l 15 mcg/2 mL solution for nebulizatio n [generic] 06/20 Inactiv e 2024 28676 32005 0 Arformotero l 15 mcg/2 mL solution for nebulizatio n [generic] 15 mcg Inhalation Twice daily For copd/asthma/ interstitial lung disease 15 mcg 2024 Active 2024 37365 44584 0 Twice daily Inhala tion False Clonazepam 0.5 mg tablet [generic] 0.5mg By Mouth As Needed q12 hour PRN For anxiety 0.5mg 2024 Active 2024 96173 23399 0 By Mouth False Colace 100 mg capsule 100 mg By Mouth Twice daily For Constipation 100 mg 2024 Active 2024 04228 74485 1 Twice daily By Mouth False Boost 0.04 gram-1 kcal/mL oral liquid 1 carton By Mouth 3 times a day For malnutrition 1 carton 2024 Active 2024 43281 31727 9 3 times a day By Mouth False Amitriptyli ne 10 mg tablet [generic] 10mg By Mouth At bedtime along with 25 mg dose to equal 35mg For anxiety 10mg 2024 Active 2024 38399 68884 1 At bedtime By Mouth False Amitriptyli ne 25 mg tablet [generic] 06/26 Inactiv e 2024 63334 85396 1 Amitriptyli ne 25 mg tablet [generic] 25 mg By Mouth At bedtime Along with 10mg to equal 35mg. for anxiety 25 mg 2024 Active 2024 44802 73594 1 At bedtime By Mouth False Betadine Swabsticks 10 % 1 scott Topical Twice daily to bilateral heels For stage 2 pressure injury 1 scott 2024 Active 2024 01731 38212 1 Twice daily Topica l False Problems [...] weight Temperature SpO2 Blood Sugar Pulse Respirations 73154 102 76340 9 83.00 mm[Hg] - Lying Down 170.00 mm[Hg] - Lying Down 98.20 Forehead Scan 98.00 % 86.00/ min 18.00/min 85802 102 69939 4 83.00 mm[Hg] - Sitting 170.00 mm[Hg] - Sitting 98.20 Tympanic 86.00/ min 18.00/min 23037 103 05861 5 98.20 Tympanic 18638 103 38086 3 80.00 mm[Hg] - Lying Down 164.00 mm[Hg] - Lying Down 91.00/ min 20.00/min 78178 103 87958 0 80.00 mm[Hg] - Sitting 164.00 mm[Hg] - Sitting 98.20 Tympanic 91.00/ min 18.00/min 71091 103 54896 7 91.00 % 20.00/min 87595 103 30743 3 94.00 % 18.00/min 81037 103 52959 9 35340 104 83344 6 80.00 mm[Hg] - Sitting 140.00 mm[Hg] - Sitting 98.10 Tympanic 94.00 % 64.00/ min 18.00/min 09932 104 06332 1 80.00 mm[Hg] - Sitting 140.00 mm[Hg] - Sitting 98.10 Tympanic 64.00/ min 18.00/min 41321 104 02733 0 80.00 mm[Hg] - Sitting 140.00 mm[Hg] - Sitting 98.10 Tympanic 64.00/ min 18.00/min 58417 104 27236 7 73.00 mm[Hg] - Sitting 136.00 mm[Hg] - Sitting 97.90 Forehead Scan 95.00 % 74.00/ min 16.00/min 75573 104 01018 8 73.00 mm[Hg] - Sitting 135.00 mm[Hg] - Sitting 98.20 Tympanic 74.00/ min 18.00/min 18984 104 43834 6 95.00 % 18.00/min 36494 104 75726 6 96.00 % 18.00/min 04646 104 72392 4 94.00 % 18.00/min 37853 104 78237 0 18.00/mi n 08000 105 12869 0 73.00 mm[Hg] - Sitting 135.00 mm[Hg] - Sitting 98.20 Tympanic 74.00/ min 18.00/min 42947 105 03811 6 73.00 mm[Hg] - Sitting 135.00 mm[Hg] - Sitting 98.20 Tympanic 74.00/ min 20.00/min 48638 105 00785 3 53.00 mm[Hg] - Sitting 126.00 mm[Hg] - Sitting 97.00 Tympanic 99.00 % 56.00/ min 20.00/min 93753 105 94977 6 93.00 % 20.00/min 83936 105 94429 8 94.00 % 20.00/min 15378 105 79379 3 97.00 % 18.00/min 77956 105 59014 9 96.00 % 18.00/min 12055 106 23613 0 67.00 mm[Hg] - Sitting 150.00 mm[Hg] - Sitting 98.80 Forehead Scan 97.00 % 58.00/ min 16.00/min 10129 107 55575 3 136.00 NI 10582 107 00810 0 59 NI 16165 107 83565 0 61.00 mm[Hg] - Sitting 144.00 mm[Hg] - Sitting 97.90 Tympanic 93.00 % 54.00/ min 16.00/min 19115 107 81308 1 95.00 % 18.00/min 26939 107 33649 0 18.00/mi n 00832 107 51000 6 63.00 mm[Hg] - Sitting 159.00 mm[Hg] - Sitting 60.00/ min 11518 107 11796 6 94.00 % 18.00/min 52755 107 45922 3 95.00 % 18.00/min Immunizations Vaccine Date Status Other 06/20/2024 Completed
--- OUTSIDE RECORDS SUMMARY | 2024-07-19 23:09 | External Medical Summary | Continuity Of Care Document ---
Author Name Unknown Address [address] [address] Organization [facility] () Care Team Providers Care Foundry Melt Supervisor Name Role Phone DO Lopez Amy Primary Care Provider [phone] Allergies Allergy Reaction Start Date End Date [...] 3 0.1 mL 06/23 Inactiv e 2024 89867 12286 0 At bedtime Intrad ermal False Tubersol 5 tub. unit/0.1 mL intradermal injection solution [Tuberculin PPD] 0.1mL Intradermal Once daily For PPD 2nd Step Give 2nd Step PPD Day 1 and Read results Day 3 (schedule 7 days after 1st READ) 0.1mL 07/03 Active 2024 01428 69459 0 Once daily Intrad ermal False Tylenol 325 mg tablet 2 tabs By Mouth Every 4 hours as needed For Pain DO NOT EXCEED 3000 MG APAP/24 Hours 2 tabs 2024 Active 2024 73414 65762 0 Every 4 hours as needed By Mouth False Dulcolax (bisacodyl) 10 mg rectal suppository One Suppository per rectum PRN if Milk of Magnisia ineffective. Give on day 5 of no BM 1 sup 2024 Active 2024 20611 09395 1 Daily as needed Rectal False Fleet Enema 19 gram-7 gram/118 mL Administer per rectum PRN one time if dulcolax suppository not effective. Give on day 6 of no BM 1 2024 Active 2024 77254 00865 6 Daily as needed Rectal False Tylenol 325 mg tablet 2 tabs By Mouth Every 4 hours as needed For Fever >100 DO NOT EXCEED 3000 MG APAP/24 Hours 2 tabs 2024 Active 2024 03875 84378 0 Every 4 hours as needed By Mouth False Eliquis 5 mg tablet 5 mg By Mouth Twice daily For afib 5 mg 2024 Active 2024 69157 60490 1 Twice daily By Mouth False Ferrous sulfate 325 mg (65 mg iron) tablet [generic] 325 mg By Mouth Once daily For supplement 325 mg 2024 Active 2024 71282 93619 5 Once daily By Mouth False Magnesium oxide 400 mg (241.3 mg magnesium) tablet [generic] 400 mg By Mouth Once daily For supplement 400 mg 2024 Active 2024 80990 31656 2 Once daily By Mouth False Protonix 40 mg tablet,bozena yed release 40 mg By Mouth Once daily For GERD 40 mg 2024 Active 2024 47069 75612 1 Once daily By Mouth False Sotalol 120 mg tablet [generic] 120 mg By Mouth Twice daily For SVT 120 mg 2024 Active 2024 57318 69171 1 Twice daily By Mouth False Rosuvastati n 20 mg tablet [generic] 20 mg By Mouth Once daily For HLD 20 mg 2024 Active 2024 20464 92491 0 Once daily By Mouth False Arformotero l 15 mcg/2 mL solution for nebulizatio n [generic] 15 mcg Inhalation Twice daily For copd/asthma/ interstitial lung disease 15 mcg 06/20 Inactiv e 2024 21541 60976 0 Twice daily Inhala tion False Budesonide 0.5 mg/2 mL suspension for nebulizatio n [generic] 0.5 mg Inhalation Twice daily For copd/ asthma/ interstital lung disease 0.5 mg 2024 Active 2024 64723 55732 8 Twice daily Inhala tion False Furosemide 40 mg tablet [generic] 40 mg By Mouth Once daily For chronic diastolic CHF 40 mg 2024 Active 2024 46644 67863 0 Once daily By Mouth False Furosemide 40 mg tablet [generic] 40 mg By Mouth Once daily For chronic diastolic CHF 40 mg 2024 Active 2024 14235 79101 0 Once daily By Mouth False Ventolin HFA 90 mcg/actuati on aerosol inhaler 2 puff Inhalation Every 6 hours as needed For SOB/ wheeze 2 puff 2024 Active 2024 70550 11744 0 Every 6 hours as needed Inhala tion False Amitriptyli ne 25 mg tablet [generic] 25 mg By Mouth At bedtime For general anxiety disorder 25 mg 06/26 Inactiv e 2024 23595 66069 1 At bedtime By Mouth False Levothyroxi ne 125 mcg tablet [generic] 125 mcg By Mouth Once daily For hypothyroidis m 125 mcg 2024 Active 2024 61829 73661 0 Once daily By Mouth False Arformotero l 15 mcg/2 mL solution for nebulizatio n [generic] 06/20 Inactiv e 2024 13493 89740 0 Arformotero l 15 mcg/2 mL solution for nebulizatio n [generic] 15 mcg Inhalation Twice daily For copd/asthma/ interstitial lung disease 15 mcg 2024 Active 2024 60126 65500 0 Twice daily Inhala tion False Clonazepam 0.5 mg tablet [generic] 0.5mg By Mouth As Needed q12 hour PRN For anxiety 0.5mg 2024 Active 2024 44243 35855 0 By Mouth False Colace 100 mg capsule 100 mg By Mouth Twice daily For Constipation 100 mg 2024 Active 2024 49773 01395 1 Twice daily By Mouth False Boost 0.04 gram-1 kcal/mL oral liquid 1 carton By Mouth 3 times a day For malnutrition 1 carton 06/27 Inactiv e 2024 21961 43426 9 3 times a day By Mouth False Amitriptyli ne 10 mg tablet [generic] 10mg By Mouth At bedtime along with 25 mg dose to equal 35mg For anxiety 10mg 2024 Active 2024 38358 38074 1 At bedtime By Mouth False Amitriptyli ne 25 mg tablet [generic] 06/26 Inactiv e 2024 20848 05412 1 Amitriptyli ne 25 mg tablet [generic] 25 mg By Mouth At bedtime Along with 10mg to equal 35mg. for anxiety 25 mg 2024 Active 2024 62055 44610 1 At bedtime By Mouth False Boost Breeze Nutritional 0.04 gram-1.05 kcal/mL oral liquid 237 ml By Mouth Twice daily Boost Breeze 237 ml oral liquids For Early satiety, low average meal intake - please record number of mL consumed 237 ml 2024 Active 2024 38100 37982 1 Twice daily By Mouth False Betadine Swabsticks 10 % 1 scott Topical Twice daily to bilateral heels For stage 2 pressure injury 1 scott 2024 Active 2024 72973 62548 1 Twice daily Topica l False Problems [...] weight Temperature SpO2 Blood Sugar Pulse Respirations 20462 102 35856 9 83.00 mm[Hg] - Lying Down 170.00 mm[Hg] - Lying Down 98.20 Forehead Scan 98.00 % 86.00/ min 18.00/min 94574 102 58827 4 83.00 mm[Hg] - Sitting 170.00 mm[Hg] - Sitting 98.20 Tympanic 86.00/ min 18.00/min 06699 103 12993 5 98.20 Tympanic 14556 103 56832 3 80.00 mm[Hg] - Lying Down 164.00 mm[Hg] - Lying Down 91.00/ min 20.00/min 95460 103 66032 0 80.00 mm[Hg] - Sitting 164.00 mm[Hg] - Sitting 98.20 Tympanic 91.00/ min 18.00/min 72668 103 14722 7 91.00 % 20.00/min 32559 103 92596 3 94.00 % 18.00/min 38274 103 15858 9 21865 104 57067 6 80.00 mm[Hg] - Sitting 140.00 mm[Hg] - Sitting 98.10 Tympanic 94.00 % 64.00/ min 18.00/min 10295 104 34881 1 80.00 mm[Hg] - Sitting 140.00 mm[Hg] - Sitting 98.10 Tympanic 64.00/ min 18.00/min 96528 104 72212 0 80.00 mm[Hg] - Sitting 140.00 mm[Hg] - Sitting 98.10 Tympanic 64.00/ min 18.00/min 98267 104 69138 7 73.00 mm[Hg] - Sitting 136.00 mm[Hg] - Sitting 97.90 Forehead Scan 95.00 % 74.00/ min 16.00/min 78959 104 03796 8 73.00 mm[Hg] - Sitting 135.00 mm[Hg] - Sitting 98.20 Tympanic 74.00/ min 18.00/min 08539 104 15690 6 95.00 % 18.00/min 55427 104 04013 6 96.00 % 18.00/min 51171 104 64954 4 94.00 % 18.00/min 56447 104 88392 0 18.00/mi n 90465 105 46544 0 73.00 mm[Hg] - Sitting 135.00 mm[Hg] - Sitting 98.20 Tympanic 74.00/ min 18.00/min 81415 105 96310 6 73.00 mm[Hg] - Sitting 135.00 mm[Hg] - Sitting 98.20 Tympanic 74.00/ min 20.00/min 42980 105 33613 3 53.00 mm[Hg] - Sitting 126.00 mm[Hg] - Sitting 97.00 Tympanic 99.00 % 56.00/ min 20.00/min 22405 105 66978 6 93.00 % 20.00/min 07004 105 62700 8 94.00 % 20.00/min 99957 105 11613 3 97.00 % 18.00/min 39524 105 23383 9 96.00 % 18.00/min 70638 106 33091 0 67.00 mm[Hg] - Sitting 150.00 mm[Hg] - Sitting 98.80 Forehead Scan 97.00 % 58.00/ min 16.00/min 76928 107 39938 3 136.00 NI 48179 107 58801 0 59 NI 03284 107 93653 0 61.00 mm[Hg] - Sitting 144.00 mm[Hg] - Sitting 97.90 Tympanic 93.00 % 54.00/ min 16.00/min 05469 107 69148 1 95.00 % 18.00/min 09612 107 07391 0 18.00/mi n 66844 107 68618 6 63.00 mm[Hg] - Sitting 159.00 mm[Hg] - Sitting 60.00/ min 50424 107 10755 6 94.00 % 18.00/min 38999 107 12403 3 95.00 % 18.00/min 45838 108 26895 0 55.00 mm[Hg] - Sitting 127.00 mm[Hg] - Sitting 97.80 Tympanic 95.00 % 55.00/ min 16.00/min 66126 108 07280 8 96.00 % 54345 108 15529 4 95.00 % 20.00/min 33365 108 87529 0 96.00 % 20.00/min 88485 108 20851 2 96.00 % 20.00/min 54237 109 32023 8 94.00 % 18.00/min 08502 109 22174 2 18.00/mi n Immunizations Vaccine Date Status Other 06/20/2024 Completed
--- OUTSIDE RECORDS SUMMARY | 2024-07-19 23:10 | External Medical Summary | Continuity Of Care Document ---
Author Name Unknown Address [address] [address] Organization [facility] () Care Team Providers Care Actuarial Trainee Name Role Phone DO Lopez Amy Primary Care Provider [phone] Allergies Allergy Reaction Start Date End Date [...] 3 0.1 mL 06/23 Inactiv e 2024 30543 79905 0 At bedtime Intrad ermal False Tubersol 5 tub. unit/0.1 mL intradermal injection solution [Tuberculin PPD] 0.1mL Intradermal Once daily For PPD 2nd Step Give 2nd Step PPD Day 1 and Read results Day 3 (schedule 7 days after 1st READ) 0.1mL 07/03 Active 2024 10176 48738 0 Once daily Intrad ermal False Tylenol 325 mg tablet 2 tabs By Mouth Every 4 hours as needed For Pain DO NOT EXCEED 3000 MG APAP/24 Hours 2 tabs 2024 Active 2024 44025 48821 0 Every 4 hours as needed By Mouth False Dulcolax (bisacodyl) 10 mg rectal suppository One Suppository per rectum PRN if Milk of Magnisia ineffective. Give on day 5 of no BM 1 sup 2024 Active 2024 96560 03301 1 Daily as needed Rectal False Fleet Enema 19 gram-7 gram/118 mL Administer per rectum PRN one time if dulcolax suppository not effective. Give on day 6 of no BM 1 2024 Active 2024 59849 58235 6 Daily as needed Rectal False Tylenol 325 mg tablet 2 tabs By Mouth Every 4 hours as needed For Fever >100 DO NOT EXCEED 3000 MG APAP/24 Hours 2 tabs 2024 Active 2024 64890 24923 0 Every 4 hours as needed By Mouth False Eliquis 5 mg tablet 5 mg By Mouth Twice daily For afib 5 mg 2024 Active 2024 49275 05650 1 Twice daily By Mouth False Ferrous sulfate 325 mg (65 mg iron) tablet [generic] 325 mg By Mouth Once daily For supplement 325 mg 2024 Active 2024 74863 91821 5 Once daily By Mouth False Magnesium oxide 400 mg (241.3 mg magnesium) tablet [generic] 400 mg By Mouth Once daily For supplement 400 mg 2024 Active 2024 16604 24174 2 Once daily By Mouth False Protonix 40 mg tablet,bozena yed release 40 mg By Mouth Once daily For GERD 40 mg 2024 Active 2024 10418 42430 1 Once daily By Mouth False Sotalol 120 mg tablet [generic] 120 mg By Mouth Twice daily For SVT 120 mg 2024 Active 2024 33020 56812 1 Twice daily By Mouth False Rosuvastati n 20 mg tablet [generic] 20 mg By Mouth Once daily For HLD 20 mg 2024 Active 2024 05675 47834 0 Once daily By Mouth False Arformotero l 15 mcg/2 mL solution for nebulizatio n [generic] 15 mcg Inhalation Twice daily For copd/asthma/ interstitial lung disease 15 mcg 06/20 Inactiv e 2024 42020 20469 0 Twice daily Inhala tion False Budesonide 0.5 mg/2 mL suspension for nebulizatio n [generic] 0.5 mg Inhalation Twice daily For copd/ asthma/ interstital lung disease 0.5 mg 2024 Active 2024 89125 67298 8 Twice daily Inhala tion False Furosemide 40 mg tablet [generic] 40 mg By Mouth Once daily For chronic diastolic CHF 40 mg 2024 Active 2024 23885 33923 0 Once daily By Mouth False Furosemide 40 mg tablet [generic] 40 mg By Mouth Once daily For chronic diastolic CHF 40 mg 2024 Active 2024 14943 24760 0 Once daily By Mouth False Ventolin HFA 90 mcg/actuati on aerosol inhaler 2 puff Inhalation Every 6 hours as needed For SOB/ wheeze 2 puff 2024 Active 2024 60888 86085 0 Every 6 hours as needed Inhala tion False Amitriptyli ne 25 mg tablet [generic] 25 mg By Mouth At bedtime For general anxiety disorder 25 mg 2024 Active 2024 01650 40356 1 At bedtime By Mouth False Levothyroxi ne 125 mcg tablet [generic] 125 mcg By Mouth Once daily For hypothyroidis m 125 mcg 2024 Active 2024 30359 81853 0 Once daily By Mouth False Arformotero l 15 mcg/2 mL solution for nebulizatio n [generic] 06/20 Inactiv e 2024 79000 19434 0 Arformotero l 15 mcg/2 mL solution for nebulizatio n [generic] 15 mcg Inhalation Twice daily For copd/asthma/ interstitial lung disease 15 mcg 2024 Active 2024 21843 15477 0 Twice daily Inhala tion False Clonazepam 0.5 mg tablet [generic] 0.5mg By Mouth As Needed q12 hour PRN For anxiety 0.5mg 2024 Active 2024 59674 16644 0 By Mouth False Betadine Swabsticks 10 % 1 scott Topical Twice daily to bilateral heels For stage 2 pressure injury 1 scott 2024 Active 2024 70058 48278 1 Twice daily Topica l False Problems [...] 2 06/20/2024 Active I48.0 Paroxysmal atrial fibrillation 06/20/202400 /0000 Active VITAL SIGNS Date Time Diastolic blood pressure Systolic blood pressure Body height Body weight Temperature SpO2 Blood Sugar Pulse Respirations 14564 102 99086 9 83.00 mm[Hg] - Lying Down 170.00 mm[Hg] - Lying Down 98.20 Forehead Scan 98.00 % 86.00/ min 18.00/min 74461 102 80362 4 83.00 mm[Hg] - Sitting 170.00 mm[Hg] - Sitting 98.20 Tympanic 86.00/ min 18.00/min 80497 103 53093 5 98.20 Tympanic 73337 103 43713 3 80.00 mm[Hg] - Lying Down 164.00 mm[Hg] - Lying Down 91.00/ min 20.00/min 84210 103 55820 0 80.00 mm[Hg] - Sitting 164.00 mm[Hg] - Sitting 98.20 Tympanic 91.00/ min 18.00/min 17941 103 68807 7 91.00 % 20.00/min 53500 103 25000 3 94.00 % 18.00/min 10582 103 41526 9 01756 104 39266 6 80.00 mm[Hg] - Sitting 140.00 mm[Hg] - Sitting 98.10 Tympanic 94.00 % 64.00/ min 18.00/min 12823 104 92195 1 80.00 mm[Hg] - Sitting 140.00 mm[Hg] - Sitting 98.10 Tympanic 64.00/ min 18.00/min 75602 104 11430 0 80.00 mm[Hg] - Sitting 140.00 mm[Hg] - Sitting 98.10 Tympanic 64.00/ min 18.00/min 51487 104 22479 7 73.00 mm[Hg] - Sitting 136.00 mm[Hg] - Sitting 97.90 Forehead Scan 95.00 % 74.00/ min 16.00/min 78662 104 29745 8 73.00 mm[Hg] - Sitting 135.00 mm[Hg] - Sitting 98.20 Tympanic 74.00/ min 18.00/min 77902 104 24411 6 95.00 % 18.00/min 95003 104 72071 6 96.00 % 18.00/min 02576 104 94913 4 94.00 % 18.00/min 79284 104 28455 0 18.00/mi n 00058 105 97142 0 73.00 mm[Hg] - Sitting 135.00 mm[Hg] - Sitting 98.20 Tympanic 74.00/ min 18.00/min 06871 105 72064 6 73.00 mm[Hg] - Sitting 135.00 mm[Hg] - Sitting 98.20 Tympanic 74.00/ min 20.00/min 04598 105 66393 3 53.00 mm[Hg] - Sitting 126.00 mm[Hg] - Sitting 97.00 Tympanic 99.00 % 56.00/ min 20.00/min 49449 105 42306 6 93.00 % 20.00/min 25243 105 40453 8 94.00 % 20.00/min 77040 105 99837 3 97.00 % 18.00/min 88535 105 48330 9 96.00 % 18.00/min 00632 106 78177 0 67.00 mm[Hg] - Sitting 150.00 mm[Hg] - Sitting 98.80 Forehead Scan 97.00 % 58.00/ min 16.00/min Immunizations Vaccine Date Status Other 06/20/2024 Completed
--- OUTSIDE RECORDS SUMMARY | 2024-07-19 23:10 | External Medical Summary | Continuity Of Care Document ---
Author Name Unknown Address [address] [address] Organization [facility] () Care Team Providers Care Placer Miner Name Role Phone DO Lopez Amy Primary Care Provider [phone] Allergies Allergy Reaction Start Date End Date [...] 3 0.1 mL 06/23 Inactiv e 2024 72258 86295 0 At bedtime Intrad ermal False Tubersol 5 tub. unit/0.1 mL intradermal injection solution [Tuberculin PPD] 0.1mL Intradermal Once daily For PPD 2nd Step Give 2nd Step PPD Day 1 and Read results Day 3 (schedule 7 days after 1st READ) 0.1mL 07/03 Active 2024 76631 46462 0 Once daily Intrad ermal False Tylenol 325 mg tablet 2 tabs By Mouth Every 4 hours as needed For Pain DO NOT EXCEED 3000 MG APAP/24 Hours 2 tabs 2024 Active 2024 84401 31846 0 Every 4 hours as needed By Mouth False Dulcolax (bisacodyl) 10 mg rectal suppository One Suppository per rectum PRN if Milk of Magnisia ineffective. Give on day 5 of no BM 1 sup 2024 Active 2024 83977 93728 1 Daily as needed Rectal False Fleet Enema 19 gram-7 gram/118 mL Administer per rectum PRN one time if dulcolax suppository not effective. Give on day 6 of no BM 1 2024 Active 2024 29056 39797 6 Daily as needed Rectal False Tylenol 325 mg tablet 2 tabs By Mouth Every 4 hours as needed For Fever >100 DO NOT EXCEED 3000 MG APAP/24 Hours 2 tabs 2024 Active 2024 91279 71578 0 Every 4 hours as needed By Mouth False Eliquis 5 mg tablet 5 mg By Mouth Twice daily For afib 5 mg 2024 Active 2024 82704 88657 1 Twice daily By Mouth False Ferrous sulfate 325 mg (65 mg iron) tablet [generic] 325 mg By Mouth Once daily For supplement 325 mg 2024 Active 2024 46599 31449 5 Once daily By Mouth False Magnesium oxide 400 mg (241.3 mg magnesium) tablet [generic] 400 mg By Mouth Once daily For supplement 400 mg 2024 Active 2024 29678 62741 2 Once daily By Mouth False Protonix 40 mg tablet,bozena yed release 40 mg By Mouth Once daily For GERD 40 mg 2024 Active 2024 55914 63110 1 Once daily By Mouth False Sotalol 120 mg tablet [generic] 120 mg By Mouth Twice daily For SVT 120 mg 2024 Active 2024 14207 93576 1 Twice daily By Mouth False Rosuvastati n 20 mg tablet [generic] 20 mg By Mouth Once daily For HLD 20 mg 2024 Active 2024 98315 88760 0 Once daily By Mouth False Arformotero l 15 mcg/2 mL solution for nebulizatio n [generic] 15 mcg Inhalation Twice daily For copd/asthma/ interstitial lung disease 15 mcg 06/20 Inactiv e 2024 88674 00078 0 Twice daily Inhala tion False Budesonide 0.5 mg/2 mL suspension for nebulizatio n [generic] 0.5 mg Inhalation Twice daily For copd/ asthma/ interstital lung disease 0.5 mg 2024 Active 2024 46125 71000 8 Twice daily Inhala tion False Furosemide 40 mg tablet [generic] 40 mg By Mouth Once daily For chronic diastolic CHF 40 mg 2024 Active 2024 34671 11124 0 Once daily By Mouth False Furosemide 40 mg tablet [generic] 40 mg By Mouth Once daily For chronic diastolic CHF 40 mg 2024 Active 2024 39384 22725 0 Once daily By Mouth False Ventolin HFA 90 mcg/actuati on aerosol inhaler 2 puff Inhalation Every 6 hours as needed For SOB/ wheeze 2 puff 2024 Active 2024 33521 46355 0 Every 6 hours as needed Inhala tion False Amitriptyli ne 25 mg tablet [generic] 25 mg By Mouth At bedtime For general anxiety disorder 25 mg 2024 Active 2024 69893 29326 1 At bedtime By Mouth False Levothyroxi ne 125 mcg tablet [generic] 125 mcg By Mouth Once daily For hypothyroidis m 125 mcg 2024 Active 2024 29470 80806 0 Once daily By Mouth False Arformotero l 15 mcg/2 mL solution for nebulizatio n [generic] 06/20 Inactiv e 2024 25939 34097 0 Arformotero l 15 mcg/2 mL solution for nebulizatio n [generic] 15 mcg Inhalation Twice daily For copd/asthma/ interstitial lung disease 15 mcg 2024 Active 2024 61472 87845 0 Twice daily Inhala tion False Clonazepam 0.5 mg tablet [generic] 0.5mg By Mouth As Needed q12 hour PRN For anxiety 0.5mg 2024 Active 2024 84756 58425 0 By Mouth False Betadine Swabsticks 10 % 1 scott Topical Twice daily to bilateral heels For stage 2 pressure injury 1 scott 2024 Active 2024 77238 88230 1 Twice daily Topica l False VITAL SIGNS Date Time Diastolic blood pressure Systolic blood pressure Body height Body weight Temperature SpO2 Blood Sugar Pulse Respirations 65134 102 71344 9 83.00 mm[Hg] - Lying Down 170.00 mm[Hg] - Lying Down 98.20 Forehead Scan 98.00 % 86.00/ min 18.00/min 06371 102 37008 4 83.00 mm[Hg] - Sitting 170.00 mm[Hg] - Sitting 98.20 Tympanic 86.00/ min 18.00/min 44320 103 83095 5 98.20 Tympanic 07681 103 97670 3 80.00 mm[Hg] - Lying Down 164.00 mm[Hg] - Lying Down 91.00/ min 20.00/min 37617 103 66921 0 80.00 mm[Hg] - Sitting 164.00 mm[Hg] - Sitting 98.20 Tympanic 91.00/ min 18.00/min 68965 103 92944 7 91.00 % 20.00/min 83308 103 27281 3 94.00 % 18.00/min 84299 103 40398 9 90676 104 49862 6 80.00 mm[Hg] - Sitting 140.00 mm[Hg] - Sitting 98.10 Tympanic 94.00 % 64.00/ min 18.00/min 90939 104 82315 1 80.00 mm[Hg] - Sitting 140.00 mm[Hg] - Sitting 98.10 Tympanic 64.00/ min 18.00/min 70184 104 77470 0 80.00 mm[Hg] - Sitting 140.00 mm[Hg] - Sitting 98.10 Tympanic 64.00/ min 18.00/min 64467 104 31445 7 73.00 mm[Hg] - Sitting 136.00 mm[Hg] - Sitting 97.90 Forehead Scan 95.00 % 74.00/ min 16.00/min 09199 104 46810 8 73.00 mm[Hg] - Sitting 135.00 mm[Hg] - Sitting 98.20 Tympanic 74.00/ min 18.00/min 36469 104 54323 6 95.00 % 18.00/min 76772 104 61687 6 96.00 % 18.00/min 32857 104 60302 4 94.00 % 18.00/min 30682 104 05873 0 18.00/mi n 16923 105 40104 0 73.00 mm[Hg] - Sitting 135.00 mm[Hg] - Sitting 98.20 Tympanic 74.00/ min 18.00/min 00006 105 22683 6 73.00 mm[Hg] - Sitting 135.00 mm[Hg] - Sitting 98.20 Tympanic 74.00/ min 20.00/min 35434 105 71222 3 53.00 mm[Hg] - Sitting 126.00 mm[Hg] - Sitting 97.00 Tympanic 99.00 % 56.00/ min 20.00/min 28245 105 10374 6 93.00 % 20.00/min 17738 105 39557 8 94.00 % 20.00/min 58278 105 59159 3 97.00 % 18.00/min 00901 105 31082 9 96.00 % 18.00/min Immunizations Vaccine Date Status Other 06/20/2024 Completed
--- OUTSIDE RECORDS SUMMARY | 2024-07-19 23:10 | External Medical Summary | Continuity Of Care Document ---
Author Name Unknown Address [address] [address] Organization [facility] () Care Team Providers Care Metalsmith Helper Name Role Phone DO Lopez Amy Primary Care Provider [phone] Allergies Allergy Reaction Start Date End Date [...] 3 0.1 mL 06/23 Inactiv e 2024 70702 24373 0 At bedtime Intrad ermal False Tubersol 5 tub. unit/0.1 mL intradermal injection solution [Tuberculin PPD] 0.1mL Intradermal Once daily For PPD 2nd Step Give 2nd Step PPD Day 1 and Read results Day 3 (schedule 7 days after 1st READ) 0.1mL 07/03 Active 2024 40554 10825 0 Once daily Intrad ermal False Tylenol 325 mg tablet 2 tabs By Mouth Every 4 hours as needed For Pain DO NOT EXCEED 3000 MG APAP/24 Hours 2 tabs 2024 Active 2024 12369 22096 0 Every 4 hours as needed By Mouth False Dulcolax (bisacodyl) 10 mg rectal suppository One Suppository per rectum PRN if Milk of Magnisia ineffective. Give on day 5 of no BM 1 sup 2024 Active 2024 83066 15499 1 Daily as needed Rectal False Fleet Enema 19 gram-7 gram/118 mL Administer per rectum PRN one time if dulcolax suppository not effective. Give on day 6 of no BM 1 2024 Active 2024 38983 21656 6 Daily as needed Rectal False Tylenol 325 mg tablet 2 tabs By Mouth Every 4 hours as needed For Fever >100 DO NOT EXCEED 3000 MG APAP/24 Hours 2 tabs 2024 Active 2024 79357 02807 0 Every 4 hours as needed By Mouth False Eliquis 5 mg tablet 5 mg By Mouth Twice daily For afib 5 mg 2024 Active 2024 44970 27864 1 Twice daily By Mouth False Ferrous sulfate 325 mg (65 mg iron) tablet [generic] 325 mg By Mouth Once daily For supplement 325 mg 2024 Active 2024 15352 10871 5 Once daily By Mouth False Magnesium oxide 400 mg (241.3 mg magnesium) tablet [generic] 400 mg By Mouth Once daily For supplement 400 mg 2024 Active 2024 35049 36379 2 Once daily By Mouth False Protonix 40 mg tablet,bozena yed release 40 mg By Mouth Once daily For GERD 40 mg 2024 Active 2024 00231 46896 1 Once daily By Mouth False Sotalol 120 mg tablet [generic] 120 mg By Mouth Twice daily For SVT 120 mg 2024 Active 2024 55319 03331 1 Twice daily By Mouth False Rosuvastati n 20 mg tablet [generic] 20 mg By Mouth Once daily For HLD 20 mg 2024 Active 2024 29685 52164 0 Once daily By Mouth False Arformotero l 15 mcg/2 mL solution for nebulizatio n [generic] 15 mcg Inhalation Twice daily For copd/asthma/ interstitial lung disease 15 mcg 06/20 Inactiv e 2024 21259 55375 0 Twice daily Inhala tion False Budesonide 0.5 mg/2 mL suspension for nebulizatio n [generic] 0.5 mg Inhalation Twice daily For copd/ asthma/ interstital lung disease 0.5 mg 2024 Active 2024 68089 50828 8 Twice daily Inhala tion False Furosemide 40 mg tablet [generic] 40 mg By Mouth Once daily For chronic diastolic CHF 40 mg 2024 Active 2024 67180 76060 0 Once daily By Mouth False Furosemide 40 mg tablet [generic] 40 mg By Mouth Once daily For chronic diastolic CHF 40 mg 2024 Active 2024 83950 43544 0 Once daily By Mouth False Ventolin HFA 90 mcg/actuati on aerosol inhaler 2 puff Inhalation Every 6 hours as needed For SOB/ wheeze 2 puff 2024 Active 2024 66106 61796 0 Every 6 hours as needed Inhala tion False Amitriptyli ne 25 mg tablet [generic] 25 mg By Mouth At bedtime For general anxiety disorder 25 mg 2024 Active 2024 79131 67322 1 At bedtime By Mouth False Levothyroxi ne 125 mcg tablet [generic] 125 mcg By Mouth Once daily For hypothyroidis m 125 mcg 2024 Active 2024 02486 89872 0 Once daily By Mouth False Arformotero l 15 mcg/2 mL solution for nebulizatio n [generic] 06/20 Inactiv e 2024 58878 50382 0 Arformotero l 15 mcg/2 mL solution for nebulizatio n [generic] 15 mcg Inhalation Twice daily For copd/asthma/ interstitial lung disease 15 mcg 2024 Active 2024 71456 22092 0 Twice daily Inhala tion False Clonazepam 0.5 mg tablet [generic] 0.5mg By Mouth As Needed q12 hour PRN For anxiety 0.5mg 2024 Active 2024 49756 63091 0 By Mouth False Betadine Swabsticks 10 % 1 scott Topical Twice daily to bilateral heels For stage 2 pressure injury 1 scott 2024 Active 2024 25344 43685 1 Twice daily Topica l False Problems [...] weight Temperature SpO2 Blood Sugar Pulse Respirations 96010 102 01438 9 83.00 mm[Hg] - Lying Down 170.00 mm[Hg] - Lying Down 98.20 Forehead Scan 98.00 % 86.00/ min 18.00/min 65828 102 67053 4 83.00 mm[Hg] - Sitting 170.00 mm[Hg] - Sitting 98.20 Tympanic 86.00/ min 18.00/min 59764 103 38998 5 98.20 Tympanic 32536 103 78777 3 80.00 mm[Hg] - Lying Down 164.00 mm[Hg] - Lying Down 91.00/ min 20.00/min 83686 103 93621 0 80.00 mm[Hg] - Sitting 164.00 mm[Hg] - Sitting 98.20 Tympanic 91.00/ min 18.00/min 41984 103 18068 7 91.00 % 20.00/min 81127 103 15003 3 94.00 % 18.00/min 33340 103 71667 9 60298 104 18858 6 80.00 mm[Hg] - Sitting 140.00 mm[Hg] - Sitting 98.10 Tympanic 94.00 % 64.00/ min 18.00/min 99445 104 89358 1 80.00 mm[Hg] - Sitting 140.00 mm[Hg] - Sitting 98.10 Tympanic 64.00/ min 18.00/min 76785 104 80792 0 80.00 mm[Hg] - Sitting 140.00 mm[Hg] - Sitting 98.10 Tympanic 64.00/ min 18.00/min 37847 104 37464 7 73.00 mm[Hg] - Sitting 136.00 mm[Hg] - Sitting 97.90 Forehead Scan 95.00 % 74.00/ min 16.00/min 77732 104 30718 8 73.00 mm[Hg] - Sitting 135.00 mm[Hg] - Sitting 98.20 Tympanic 74.00/ min 18.00/min 31785 104 52251 6 95.00 % 18.00/min 24731 104 63442 6 96.00 % 18.00/min 94278 104 34656 4 94.00 % 18.00/min 66893 104 32207 0 18.00/mi n 24387 105 46612 0 73.00 mm[Hg] - Sitting 135.00 mm[Hg] - Sitting 98.20 Tympanic 74.00/ min 18.00/min 05884 105 05286 6 73.00 mm[Hg] - Sitting 135.00 mm[Hg] - Sitting 98.20 Tympanic 74.00/ min 20.00/min 60375 105 63853 3 53.00 mm[Hg] - Sitting 126.00 mm[Hg] - Sitting 97.00 Tympanic 99.00 % 56.00/ min 20.00/min 59954 105 64960 6 93.00 % 20.00/min 16044 105 01658 8 94.00 % 20.00/min 04592 105 72457 3 97.00 % 18.00/min 33335 105 84326 9 96.00 % 18.00/min Immunizations Vaccine Date Status Other 06/20/2024 Completed
--- OUTSIDE RECORDS SUMMARY | 2024-07-19 23:10 | External Medical Summary | Continuity Of Care Document ---
Author Name Unknown Address [address] [address] Organization [facility] () Care Team Providers Care Transition Coach Name Role Phone DO Lopez Amy Primary Care Provider [phone] Allergies Allergy Reaction Start Date End Date [...] 3 0.1 mL 06/23 Inactiv e 2024 66127 59907 0 At bedtime Intrad ermal False Tubersol 5 tub. unit/0.1 mL intradermal injection solution [Tuberculin PPD] 0.1mL Intradermal Once daily For PPD 2nd Step Give 2nd Step PPD Day 1 and Read results Day 3 (schedule 7 days after 1st READ) 0.1mL 07/03 Active 2024 58408 14380 0 Once daily Intrad ermal False Tylenol 325 mg tablet 2 tabs By Mouth Every 4 hours as needed For Pain DO NOT EXCEED 3000 MG APAP/24 Hours 2 tabs 2024 Active 2024 07860 26879 0 Every 4 hours as needed By Mouth False Dulcolax (bisacodyl) 10 mg rectal suppository One Suppository per rectum PRN if Milk of Magnisia ineffective. Give on day 5 of no BM 1 sup 2024 Active 2024 42624 31727 1 Daily as needed Rectal False Fleet Enema 19 gram-7 gram/118 mL Administer per rectum PRN one time if dulcolax suppository not effective. Give on day 6 of no BM 1 2024 Active 2024 05299 18873 6 Daily as needed Rectal False Tylenol 325 mg tablet 2 tabs By Mouth Every 4 hours as needed For Fever >100 DO NOT EXCEED 3000 MG APAP/24 Hours 2 tabs 2024 Active 2024 49060 55717 0 Every 4 hours as needed By Mouth False Eliquis 5 mg tablet 5 mg By Mouth Twice daily For afib 5 mg 2024 Active 2024 88254 71356 1 Twice daily By Mouth False Ferrous sulfate 325 mg (65 mg iron) tablet [generic] 325 mg By Mouth Once daily For supplement 325 mg 2024 Active 2024 03262 60779 5 Once daily By Mouth False Magnesium oxide 400 mg (241.3 mg magnesium) tablet [generic] 400 mg By Mouth Once daily For supplement 400 mg 2024 Active 2024 26888 99994 2 Once daily By Mouth False Protonix 40 mg tablet,bozena yed release 40 mg By Mouth Once daily For GERD 40 mg 2024 Active 2024 35448 42578 1 Once daily By Mouth False Sotalol 120 mg tablet [generic] 120 mg By Mouth Twice daily For SVT 120 mg 2024 Active 2024 85233 54328 1 Twice daily By Mouth False Rosuvastati n 20 mg tablet [generic] 20 mg By Mouth Once daily For HLD 20 mg 2024 Active 2024 50099 97612 0 Once daily By Mouth False Arformotero l 15 mcg/2 mL solution for nebulizatio n [generic] 15 mcg Inhalation Twice daily For copd/asthma/ interstitial lung disease 15 mcg 06/20 Inactiv e 2024 95453 11156 0 Twice daily Inhala tion False Budesonide 0.5 mg/2 mL suspension for nebulizatio n [generic] 0.5 mg Inhalation Twice daily For copd/ asthma/ interstital lung disease 0.5 mg 2024 Active 2024 92391 05850 8 Twice daily Inhala tion False Furosemide 40 mg tablet [generic] 40 mg By Mouth Once daily For chronic diastolic CHF 40 mg 2024 Active 2024 98212 89373 0 Once daily By Mouth False Furosemide 40 mg tablet [generic] 40 mg By Mouth Once daily For chronic diastolic CHF 40 mg 2024 Active 2024 26985 05010 0 Once daily By Mouth False Ventolin HFA 90 mcg/actuati on aerosol inhaler 2 puff Inhalation Every 6 hours as needed For SOB/ wheeze 2 puff 2024 Active 2024 78399 37919 0 Every 6 hours as needed Inhala tion False Amitriptyli ne 25 mg tablet [generic] 25 mg By Mouth At bedtime For general anxiety disorder 25 mg 2024 Active 2024 86261 64750 1 At bedtime By Mouth False Levothyroxi ne 125 mcg tablet [generic] 125 mcg By Mouth Once daily For hypothyroidis m 125 mcg 2024 Active 2024 17589 04042 0 Once daily By Mouth False Arformotero l 15 mcg/2 mL solution for nebulizatio n [generic] 06/20 Inactiv e 2024 98072 39571 0 Arformotero l 15 mcg/2 mL solution for nebulizatio n [generic] 15 mcg Inhalation Twice daily For copd/asthma/ interstitial lung disease 15 mcg 2024 Active 2024 01281 86243 0 Twice daily Inhala tion False Clonazepam 0.5 mg tablet [generic] 0.5mg By Mouth As Needed q12 hour PRN For anxiety 0.5mg 2024 Active 2024 11061 29591 0 By Mouth False Colace 100 mg capsule 100 mg By Mouth Twice daily For Constipation 100 mg 2024 Active 2024 94331 25056 1 Twice daily By Mouth False Boost 0.04 gram-1 kcal/mL oral liquid 1 carton By Mouth 3 times a day For malnutrition 1 carton 2024 Active 2024 02055 37409 9 3 times a day By Mouth False Betadine Swabsticks 10 % 1 scott Topical Twice daily to bilateral heels For stage 2 pressure injury 1 scott 2024 Active 2024 20063 20610 1 Twice daily Topica l False Problems [...] weight Temperature SpO2 Blood Sugar Pulse Respirations 16425 102 74626 9 83.00 mm[Hg] - Lying Down 170.00 mm[Hg] - Lying Down 98.20 Forehead Scan 98.00 % 86.00/ min 18.00/min 15246 102 64146 4 83.00 mm[Hg] - Sitting 170.00 mm[Hg] - Sitting 98.20 Tympanic 86.00/ min 18.00/min 25919 103 50713 5 98.20 Tympanic 00930 103 68836 3 80.00 mm[Hg] - Lying Down 164.00 mm[Hg] - Lying Down 91.00/ min 20.00/min 45847 103 17721 0 80.00 mm[Hg] - Sitting 164.00 mm[Hg] - Sitting 98.20 Tympanic 91.00/ min 18.00/min 48307 103 37368 7 91.00 % 20.00/min 55632 103 89336 3 94.00 % 18.00/min 12842 103 26974 9 74325 104 16433 6 80.00 mm[Hg] - Sitting 140.00 mm[Hg] - Sitting 98.10 Tympanic 94.00 % 64.00/ min 18.00/min 57495 104 35917 1 80.00 mm[Hg] - Sitting 140.00 mm[Hg] - Sitting 98.10 Tympanic 64.00/ min 18.00/min 05701 104 05163 0 80.00 mm[Hg] - Sitting 140.00 mm[Hg] - Sitting 98.10 Tympanic 64.00/ min 18.00/min 47559 104 55840 7 73.00 mm[Hg] - Sitting 136.00 mm[Hg] - Sitting 97.90 Forehead Scan 95.00 % 74.00/ min 16.00/min 96336 104 80206 8 73.00 mm[Hg] - Sitting 135.00 mm[Hg] - Sitting 98.20 Tympanic 74.00/ min 18.00/min 18483 104 35771 6 95.00 % 18.00/min 59492 104 84171 6 96.00 % 18.00/min 39808 104 25941 4 94.00 % 18.00/min 21583 104 22676 0 18.00/mi n 06770 105 83841 0 73.00 mm[Hg] - Sitting 135.00 mm[Hg] - Sitting 98.20 Tympanic 74.00/ min 18.00/min 65477 105 51168 6 73.00 mm[Hg] - Sitting 135.00 mm[Hg] - Sitting 98.20 Tympanic 74.00/ min 20.00/min 14121 105 64622 3 53.00 mm[Hg] - Sitting 126.00 mm[Hg] - Sitting 97.00 Tympanic 99.00 % 56.00/ min 20.00/min 52864 105 07222 6 93.00 % 20.00/min 91556 105 94253 8 94.00 % 20.00/min 56136 105 78070 3 97.00 % 18.00/min 34377 105 41464 9 96.00 % 18.00/min 86184 106 79051 0 67.00 mm[Hg] - Sitting 150.00 mm[Hg] - Sitting 98.80 Forehead Scan 97.00 % 58.00/ min 16.00/min 77439 107 56285 3 136.00 NI [id number] 107 08664 0 59 [place] [id number] 107 79601 1 95.00 % 18.00/min 03271 107 41238 0 18.00/mi n Immunizations Vaccine Date Status Other 06/20/2024 Completed
--- OUTSIDE RECORDS SUMMARY | 2024-07-19 23:10 | External Medical Summary | Continuity Of Care Document ---
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 unit/0.1 mL intradermal injection solution [Tuberculin PPD] 0.1mL Intradermal Once daily For PPD 2nd Step Give 2nd Step PPD Day 1 and Read results Day 3 (schedule 7 days after 1st READ) 0.1mL 07/03 Active 2024 06287 01734 0 Once daily Intrad ermal False Tylenol 325 mg tablet 2 tabs By Mouth Every 4 hours as needed For Pain DO NOT EXCEED 3000 MG APAP/24 Hours 2 tabs 2024 Active 2024 03110 02244 0 Every 4 hours as needed By Mouth False Dulcolax (bisacodyl) 10 mg rectal suppository One Suppository per rectum PRN if Milk of Magnisia ineffective. Give on day 5 of no BM 1 sup 2024 Active 2024 37544 29138 1 Daily as needed Rectal False Fleet Enema 19 gram-7 gram/118 mL Administer per rectum PRN one time if dulcolax suppository not effective. Give on day 6 of no BM 1 2024 Active 2024 87736 46144 6 Daily as needed Rectal False Tylenol 325 mg tablet 2 tabs By Mouth Every 4 hours as needed For Fever >100 DO NOT EXCEED 3000 MG APAP/24 Hours 2 tabs 2024 Active 2024 28402 31106 0 Every 4 hours as needed By Mouth False Eliquis 5 mg tablet 5 mg By Mouth Twice daily For afib 5 mg 2024 Active 2024 34357 12878 1 Twice daily By Mouth False Ferrous sulfate 325 mg (65 mg iron) tablet [generic] 325 mg By Mouth Once daily For supplement 325 mg 2024 Active 2024 47516 48062 5 Once daily By Mouth False Magnesium oxide 400 mg (241.3 mg magnesium) tablet [generic] 400 mg By Mouth Once daily For supplement 400 mg 2024 Active 2024 91983 01258 2 Once daily By Mouth False Protonix 40 mg tablet,bozena yed release 40 mg By Mouth Once daily For GERD 40 mg 2024 Active 2024 88894 39479 1 Once daily By Mouth False Sotalol 120 mg tablet [generic] 120 mg By Mouth Twice daily For SVT 120 mg 2024 Active 2024 70599 89408 1 Twice daily By Mouth False Rosuvastati n 20 mg tablet [generic] 20 mg By Mouth Once daily For HLD 20 mg 2024 Active 2024 32766 45196 0 Once daily By Mouth False Arformotero l 15 mcg/2 mL solution for nebulizatio n [generic] 15 mcg Inhalation Twice daily For copd/asthma/ interstitial lung disease 15 mcg 06/20 Inactiv e 2024 68135 84824 0 Twice daily Inhala tion False Budesonide 0.5 mg/2 mL suspension for nebulizatio n [generic] 0.5 mg Inhalation Twice daily For copd/ asthma/ interstital lung disease 0.5 mg 2024 Active 2024 18001 15321 8 Twice daily Inhala tion False Furosemide 40 mg tablet [generic] 40 mg By Mouth Once daily For chronic diastolic CHF 40 mg 2024 Active 2024 17022 07965 0 Once daily By Mouth False Furosemide 40 mg tablet [generic] 40 mg By Mouth Once daily For chronic diastolic CHF 40 mg 2024 Active 2024 76738 67026 0 Once daily By Mouth False Ventolin HFA 90 mcg/actuati on aerosol inhaler 2 puff Inhalation Every 6 hours as needed For SOB/ wheeze 2 puff 2024 Active 2024 56700 75197 0 Every 6 hours as needed Inhala tion False Amitriptyli ne 25 mg tablet [generic] 25 mg By Mouth At bedtime For general anxiety disorder 25 mg 2024 Active 2024 64287 00248 1 At bedtime By Mouth False Levothyroxi ne 125 mcg tablet [generic] 125 mcg By Mouth Once daily For hypothyroidis m 125 mcg 2024 Active 2024 69039 31853 0 Once daily By Mouth False Arformotero l 15 mcg/2 mL solution for nebulizatio n [generic] 06/20 Inactiv e 2024 43685 83216 0 Arformotero l 15 mcg/2 mL solution for nebulizatio n [generic] 15 mcg Inhalation Twice daily For copd/asthma/ interstitial lung disease 15 mcg 2024 Active 2024 07941 81723 0 Twice daily Inhala tion False Clonazepam 0.5 mg tablet [generic] 0.5mg By Mouth As Needed q12 hour PRN For anxiety 0.5mg 2024 Active 2024 70086 07762 0 By Mouth False Colace 100 mg capsule 100 mg By Mouth Twice daily For Constipation 100 mg 2024 Active 2024 49017 69389 1 Twice daily By Mouth False Betadine Swabsticks 10 % 1 scott Topical Twice daily to bilateral heels For stage 2 pressure injury 1 scott 2024 Active 2024 20481 35071 1 Twice daily Topica l False Problems [...] weight Temperature SpO2 Blood Sugar Pulse Respirations 88836 102 51189 9 83.00 mm[Hg] - Lying Down 170.00 mm[Hg] - Lying Down 98.20 Forehead Scan 98.00 % 86.00/ min 18.00/min 79806 102 70657 4 83.00 mm[Hg] - Sitting 170.00 mm[Hg] - Sitting 98.20 Tympanic 86.00/ min 18.00/min 48392 103 20785 5 98.20 Tympanic 18988 103 58426 3 80.00 mm[Hg] - Lying Down 164.00 mm[Hg] - Lying Down 91.00/ min 20.00/min 76213 103 83435 0 80.00 mm[Hg] - Sitting 164.00 mm[Hg] - Sitting 98.20 Tympanic 91.00/ min 18.00/min 77253 103 11084 7 91.00 % 20.00/min 84429 103 92206 3 94.00 % 18.00/min 73694 103 45681 9 32318 104 75179 6 80.00 mm[Hg] - Sitting 140.00 mm[Hg] - Sitting 98.10 Tympanic 94.00 % 64.00/ min 18.00/min 93290 104 96631 1 80.00 mm[Hg] - Sitting 140.00 mm[Hg] - Sitting 98.10 Tympanic 64.00/ min 18.00/min 40352 104 44985 0 80.00 mm[Hg] - Sitting 140.00 mm[Hg] - Sitting 98.10 Tympanic 64.00/ min 18.00/min 09337 104 21895 7 73.00 mm[Hg] - Sitting 136.00 mm[Hg] - Sitting 97.90 Forehead Scan 95.00 % 74.00/ min 16.00/min 23442 104 17331 8 73.00 mm[Hg] - Sitting 135.00 mm[Hg] - Sitting 98.20 Tympanic 74.00/ min 18.00/min 59026 104 78436 6 95.00 % 18.00/min 97598 104 09780 6 96.00 % 18.00/min 11360 104 97900 4 94.00 % 18.00/min 59568 104 02957 0 18.00/mi n 90130 105 29184 0 73.00 mm[Hg] - Sitting 135.00 mm[Hg] - Sitting 98.20 Tympanic 74.00/ min 18.00/min 87957 105 72117 6 73.00 mm[Hg] - Sitting 135.00 mm[Hg] - Sitting 98.20 Tympanic 74.00/ min 20.00/min 14172 105 93995 3 53.00 mm[Hg] - Sitting 126.00 mm[Hg] - Sitting 97.00 Tympanic 99.00 % 56.00/ min 20.00/min 64083 105 46459 6 93.00 % 20.00/min 27985 105 64335 8 94.00 % 20.00/min 81231 105 56825 3 97.00 % 18.00/min 72642 105 96609 9 96.00 % 18.00/min 16654 106 22844 0 67.00 mm[Hg] - Sitting 150.00 mm[Hg] - Sitting 98.80 Forehead Scan 97.00 % 58.00/ min 16.00/min 63675 107 19133 1 95.00 % 18.00/min 95971 107 41946 0 18.00/mi n Immunizations Vaccine Date Status Other 06/20/2024 Completed
--- OUTSIDE RECORDS SUMMARY | 2024-07-19 23:10 | External Medical Summary | Continuity Of Care Document ---
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 unit/0.1 mL intradermal injection solution [Tuberculin PPD] 0.1mL Intradermal Once daily For PPD 2nd Step Give 2nd Step PPD Day 1 and Read results Day 3 (schedule 7 days after 1st READ) 0.1mL 07/03 Active 2024 34220 17281 0 Once daily Intrad ermal False Tylenol 325 mg tablet 2 tabs By Mouth Every 4 hours as needed For Pain DO NOT EXCEED 3000 MG APAP/24 Hours 2 tabs 2024 Active 2024 75989 15449 0 Every 4 hours as needed By Mouth False Dulcolax (bisacodyl) 10 mg rectal suppository One Suppository per rectum PRN if Milk of Magnisia ineffective. Give on day 5 of no BM 1 sup 2024 Active 2024 72024 14770 1 Daily as needed Rectal False Fleet Enema 19 gram-7 gram/118 mL Administer per rectum PRN one time if dulcolax suppository not effective. Give on day 6 of no BM 1 2024 Active 2024 67482 16762 6 Daily as needed Rectal False Tylenol 325 mg tablet 2 tabs By Mouth Every 4 hours as needed For Fever >100 DO NOT EXCEED 3000 MG APAP/24 Hours 2 tabs 2024 Active 2024 24318 55101 0 Every 4 hours as needed By Mouth False Eliquis 5 mg tablet 5 mg By Mouth Twice daily For afib 5 mg 2024 Active 2024 70893 18521 1 Twice daily By Mouth False Ferrous sulfate 325 mg (65 mg iron) tablet [generic] 325 mg By Mouth Once daily For supplement 325 mg 2024 Active 2024 92934 88618 5 Once daily By Mouth False Magnesium oxide 400 mg (241.3 mg magnesium) tablet [generic] 400 mg By Mouth Once daily For supplement 400 mg 2024 Active 2024 73294 37384 2 Once daily By Mouth False Protonix 40 mg tablet,bozena yed release 40 mg By Mouth Once daily For GERD 40 mg 2024 Active 2024 68341 49515 1 Once daily By Mouth False Sotalol 120 mg tablet [generic] 120 mg By Mouth Twice daily For SVT 120 mg 2024 Active 2024 19373 55383 1 Twice daily By Mouth False Rosuvastati n 20 mg tablet [generic] 20 mg By Mouth Once daily For HLD 20 mg 2024 Active 2024 74952 18751 0 Once daily By Mouth False Arformotero l 15 mcg/2 mL solution for nebulizatio n [generic] 15 mcg Inhalation Twice daily For copd/asthma/ interstitial lung disease 15 mcg 06/20 Inactiv e 2024 72183 20545 0 Twice daily Inhala tion False Budesonide 0.5 mg/2 mL suspension for nebulizatio n [generic] 0.5 mg Inhalation Twice daily For copd/ asthma/ interstital lung disease 0.5 mg 2024 Active 2024 39344 53272 8 Twice daily Inhala tion False Furosemide 40 mg tablet [generic] 40 mg By Mouth Once daily For chronic diastolic CHF 40 mg 2024 Active 2024 31809 76138 0 Once daily By Mouth False Furosemide 40 mg tablet [generic] 40 mg By Mouth Once daily For chronic diastolic CHF 40 mg 2024 Active 2024 97930 65543 0 Once daily By Mouth False Ventolin HFA 90 mcg/actuati on aerosol inhaler 2 puff Inhalation Every 6 hours as needed For SOB/ wheeze 2 puff 2024 Active 2024 13521 38107 0 Every 6 hours as needed Inhala tion False Amitriptyli ne 25 mg tablet [generic] 25 mg By Mouth At bedtime For general anxiety disorder 25 mg 2024 Active 2024 64406 67206 1 At bedtime By Mouth False Levothyroxi ne 125 mcg tablet [generic] 125 mcg By Mouth Once daily For hypothyroidis m 125 mcg 2024 Active 2024 49497 92550 0 Once daily By Mouth False Arformotero l 15 mcg/2 mL solution for nebulizatio n [generic] 06/20 Inactiv e 2024 03731 44168 0 Arformotero l 15 mcg/2 mL solution for nebulizatio n [generic] 15 mcg Inhalation Twice daily For copd/asthma/ interstitial lung disease 15 mcg 2024 Active 2024 15529 64663 0 Twice daily Inhala tion False Clonazepam 0.5 mg tablet [generic] 0.5mg By Mouth As Needed q12 hour PRN For anxiety 0.5mg 2024 Active 2024 42341 62468 0 By Mouth False Betadine Swabsticks 10 % 1 scott Topical Twice daily to bilateral heels For stage 2 pressure injury 1 scott 2024 Active 2024 36433 85741 1 Twice daily Topica l False Problems [...] weight Temperature SpO2 Blood Sugar Pulse Respirations 97446 102 47021 9 83.00 mm[Hg] - Lying Down 170.00 mm[Hg] - Lying Down 98.20 Forehead Scan 98.00 % 86.00/ min 18.00/min 17139 102 71088 4 83.00 mm[Hg] - Sitting 170.00 mm[Hg] - Sitting 98.20 Tympanic 86.00/ min 18.00/min 82996 103 90712 5 98.20 Tympanic 56315 103 39772 3 80.00 mm[Hg] - Lying Down 164.00 mm[Hg] - Lying Down 91.00/ min 20.00/min 40241 103 84361 0 80.00 mm[Hg] - Sitting 164.00 mm[Hg] - Sitting 98.20 Tympanic 91.00/ min 18.00/min 00275 103 63444 7 91.00 % 20.00/min 04646 103 74175 3 94.00 % 18.00/min 01743 103 43002 9 50269 104 00638 6 80.00 mm[Hg] - Sitting 140.00 mm[Hg] - Sitting 98.10 Tympanic 94.00 % 64.00/ min 18.00/min 84005 104 85320 1 80.00 mm[Hg] - Sitting 140.00 mm[Hg] - Sitting 98.10 Tympanic 64.00/ min 18.00/min 44273 104 73616 0 80.00 mm[Hg] - Sitting 140.00 mm[Hg] - Sitting 98.10 Tympanic 64.00/ min 18.00/min 95556 104 62416 7 73.00 mm[Hg] - Sitting 136.00 mm[Hg] - Sitting 97.90 Forehead Scan 95.00 % 74.00/ min 16.00/min 17969 104 95521 8 73.00 mm[Hg] - Sitting 135.00 mm[Hg] - Sitting 98.20 Tympanic 74.00/ min 18.00/min 11190 104 14330 6 95.00 % 18.00/min 25375 104 37764 6 96.00 % 18.00/min 84704 104 07816 4 94.00 % 18.00/min 18634 104 52927 0 18.00/mi n 64255 105 54215 0 73.00 mm[Hg] - Sitting 135.00 mm[Hg] - Sitting 98.20 Tympanic 74.00/ min 18.00/min 67005 105 84667 6 73.00 mm[Hg] - Sitting 135.00 mm[Hg] - Sitting 98.20 Tympanic 74.00/ min 20.00/min 48375 105 60091 3 53.00 mm[Hg] - Sitting 126.00 mm[Hg] - Sitting 97.00 Tympanic 99.00 % 56.00/ min 20.00/min 68348 105 67933 6 93.00 % 20.00/min 52597 105 70212 8 94.00 % 20.00/min 61320 105 33004 3 97.00 % 18.00/min 96437 105 78713 9 96.00 % 18.00/min 30826 106 08962 0 67.00 mm[Hg] - Sitting 150.00 mm[Hg] - Sitting 98.80 Forehead Scan 97.00 % 58.00/ min 16.00/min Immunizations Vaccine Date Status Other 06/20/2024 Completed
--- OUTSIDE RECORDS SUMMARY | 2024-07-19 23:10 | External Medical Summary | Continuity Of Care Document ---
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 unit/0.1 mL intradermal injection solution [Tuberculin PPD] 0.1mL Intradermal Once daily For PPD 2nd Step Give 2nd Step PPD Day 1 and Read results Day 3 (schedule 7 days after 1st READ) 0.1mL 07/03 Active 2024 77815 73189 0 Once daily Intrad ermal False Tylenol 325 mg tablet 2 tabs By Mouth Every 4 hours as needed For Pain DO NOT EXCEED 3000 MG APAP/24 Hours 2 tabs 2024 Active 2024 88757 38270 0 Every 4 hours as needed By Mouth False Dulcolax (bisacodyl) 10 mg rectal suppository One Suppository per rectum PRN if Milk of Magnisia ineffective. Give on day 5 of no BM 1 sup 2024 Active 2024 02689 26709 1 Daily as needed Rectal False Fleet Enema 19 gram-7 gram/118 mL Administer per rectum PRN one time if dulcolax suppository not effective. Give on day 6 of no BM 1 2024 Active 2024 14906 12946 6 Daily as needed Rectal False Tylenol 325 mg tablet 2 tabs By Mouth Every 4 hours as needed For Fever >100 DO NOT EXCEED 3000 MG APAP/24 Hours 2 tabs 2024 Active 2024 49503 83014 0 Every 4 hours as needed By Mouth False Eliquis 5 mg tablet 5 mg By Mouth Twice daily For afib 5 mg 2024 Active 2024 12486 70274 1 Twice daily By Mouth False Ferrous sulfate 325 mg (65 mg iron) tablet [generic] 325 mg By Mouth Once daily For supplement 325 mg 2024 Active 2024 06377 23432 5 Once daily By Mouth False Magnesium oxide 400 mg (241.3 mg magnesium) tablet [generic] 400 mg By Mouth Once daily For supplement 400 mg 2024 Active 2024 52079 74948 2 Once daily By Mouth False Protonix 40 mg tablet,bozena yed release 40 mg By Mouth Once daily For GERD 40 mg 2024 Active 2024 61716 98701 1 Once daily By Mouth False Sotalol 120 mg tablet [generic] 120 mg By Mouth Twice daily For SVT 120 mg 2024 Active 2024 38259 87910 1 Twice daily By Mouth False Rosuvastati n 20 mg tablet [generic] 20 mg By Mouth Once daily For HLD 20 mg 2024 Active 2024 90159 83706 0 Once daily By Mouth False Arformotero l 15 mcg/2 mL solution for nebulizatio n [generic] 15 mcg Inhalation Twice daily For copd/asthma/ interstitial lung disease 15 mcg 06/20 Inactiv e 2024 37838 55765 0 Twice daily Inhala tion False Budesonide 0.5 mg/2 mL suspension for nebulizatio n [generic] 0.5 mg Inhalation Twice daily For copd/ asthma/ interstital lung disease 0.5 mg 2024 Active 2024 92139 63122 8 Twice daily Inhala tion False Furosemide 40 mg tablet [generic] 40 mg By Mouth Once daily For chronic diastolic CHF 40 mg 2024 Active 2024 81438 32824 0 Once daily By Mouth False Furosemide 40 mg tablet [generic] 40 mg By Mouth Once daily For chronic diastolic CHF 40 mg 2024 Active 2024 30509 61897 0 Once daily By Mouth False Ventolin HFA 90 mcg/actuati on aerosol inhaler 2 puff Inhalation Every 6 hours as needed For SOB/ wheeze 2 puff 2024 Active 2024 60499 37081 0 Every 6 hours as needed Inhala tion False Amitriptyli ne 25 mg tablet [generic] 25 mg By Mouth At bedtime For general anxiety disorder 25 mg 2024 Active 2024 85678 09126 1 At bedtime By Mouth False Levothyroxi ne 125 mcg tablet [generic] 125 mcg By Mouth Once daily For hypothyroidis m 125 mcg 2024 Active 2024 06158 50572 0 Once daily By Mouth False Arformotero l 15 mcg/2 mL solution for nebulizatio n [generic] 06/20 Inactiv e 2024 22966 81612 0 Arformotero l 15 mcg/2 mL solution for nebulizatio n [generic] 15 mcg Inhalation Twice daily For copd/asthma/ interstitial lung disease 15 mcg 2024 Active 2024 95889 76727 0 Twice daily Inhala tion False Clonazepam 0.5 mg tablet [generic] 0.5mg By Mouth As Needed q12 hour PRN For anxiety 0.5mg 2024 Active 2024 93863 86080 0 By Mouth False Betadine Swabsticks 10 % 1 scott Topical Twice daily to bilateral heels For stage 2 pressure injury 1 scott 2024 Active 2024 90973 54968 1 Twice daily Topica l False Problems [...] weight Temperature SpO2 Blood Sugar Pulse Respirations 39277 102 68426 9 83.00 mm[Hg] - Lying Down 170.00 mm[Hg] - Lying Down 98.20 Forehead Scan 98.00 % 86.00/ min 18.00/min 04108 102 68640 4 83.00 mm[Hg] - Sitting 170.00 mm[Hg] - Sitting 98.20 Tympanic 86.00/ min 18.00/min 68431 103 52408 5 98.20 Tympanic 43055 103 38487 3 80.00 mm[Hg] - Lying Down 164.00 mm[Hg] - Lying Down 91.00/ min 20.00/min 90044 103 58399 0 80.00 mm[Hg] - Sitting 164.00 mm[Hg] - Sitting 98.20 Tympanic 91.00/ min 18.00/min 73213 103 55505 7 91.00 % 20.00/min 43512 103 50245 3 94.00 % 18.00/min 47757 103 24640 9 04663 104 64496 6 80.00 mm[Hg] - Sitting 140.00 mm[Hg] - Sitting 98.10 Tympanic 94.00 % 64.00/ min 18.00/min 61294 104 83388 1 80.00 mm[Hg] - Sitting 140.00 mm[Hg] - Sitting 98.10 Tympanic 64.00/ min 18.00/min 63607 104 14013 0 80.00 mm[Hg] - Sitting 140.00 mm[Hg] - Sitting 98.10 Tympanic 64.00/ min 18.00/min 44419 104 58205 7 73.00 mm[Hg] - Sitting 136.00 mm[Hg] - Sitting 97.90 Forehead Scan 95.00 % 74.00/ min 16.00/min 53932 104 98288 8 73.00 mm[Hg] - Sitting 135.00 mm[Hg] - Sitting 98.20 Tympanic 74.00/ min 18.00/min 57406 104 15879 6 95.00 % 18.00/min 18909 104 32067 6 96.00 % 18.00/min 58439 104 42427 4 94.00 % 18.00/min 72416 104 37069 0 18.00/mi n 08186 105 22323 0 73.00 mm[Hg] - Sitting 135.00 mm[Hg] - Sitting 98.20 Tympanic 74.00/ min 18.00/min 24943 105 49734 6 73.00 mm[Hg] - Sitting 135.00 mm[Hg] - Sitting 98.20 Tympanic 74.00/ min 20.00/min 86833 105 33237 3 53.00 mm[Hg] - Sitting 126.00 mm[Hg] - Sitting 97.00 Tympanic 99.00 % 56.00/ min 20.00/min 87505 105 44439 6 93.00 % 20.00/min 82952 105 46058 8 94.00 % 20.00/min 64914 105 79535 3 97.00 % 18.00/min 69335 105 68927 9 96.00 % 18.00/min Immunizations Vaccine Date Status Other 06/20/2024 Completed
--- OUTSIDE RECORDS SUMMARY | 2024-07-19 23:10 | External Medical Summary | Continuity Of Care Document ---
Author Name Unknown Address [address] [address] Organization [facility] () Care Team Providers Care Assistant Professor Of Art Name Role Phone DO Lopez Amy Primary Care Provider [phone] Allergies Allergy Reaction Start Date End Date [...] 3 0.1 mL 06/23 Inactiv e 2024 44666 80317 0 At bedtime Intrad ermal False Tubersol 5 tub. unit/0.1 mL intradermal injection solution [Tuberculin PPD] 0.1mL Intradermal Once daily For PPD 2nd Step Give 2nd Step PPD Day 1 and Read results Day 3 (schedule 7 days after 1st READ) 0.1mL 07/03 Active 2024 03965 55607 0 Once daily Intrad ermal False Tylenol 325 mg tablet 2 tabs By Mouth Every 4 hours as needed For Pain DO NOT EXCEED 3000 MG APAP/24 Hours 2 tabs 2024 Active 2024 17812 14438 0 Every 4 hours as needed By Mouth False Dulcolax (bisacodyl) 10 mg rectal suppository One Suppository per rectum PRN if Milk of Magnisia ineffective. Give on day 5 of no BM 1 sup 2024 Active 2024 44715 93282 1 Daily as needed Rectal False Fleet Enema 19 gram-7 gram/118 mL Administer per rectum PRN one time if dulcolax suppository not effective. Give on day 6 of no BM 1 2024 Active 2024 62714 88242 6 Daily as needed Rectal False Tylenol 325 mg tablet 2 tabs By Mouth Every 4 hours as needed For Fever >100 DO NOT EXCEED 3000 MG APAP/24 Hours 2 tabs 2024 Active 2024 66065 73310 0 Every 4 hours as needed By Mouth False Eliquis 5 mg tablet 5 mg By Mouth Twice daily For afib 5 mg 2024 Active 2024 95878 95267 1 Twice daily By Mouth False Ferrous sulfate 325 mg (65 mg iron) tablet [generic] 325 mg By Mouth Once daily For supplement 325 mg 2024 Active 2024 41981 37747 5 Once daily By Mouth False Magnesium oxide 400 mg (241.3 mg magnesium) tablet [generic] 400 mg By Mouth Once daily For supplement 400 mg 2024 Active 2024 86502 93242 2 Once daily By Mouth False Protonix 40 mg tablet,bozena yed release 40 mg By Mouth Once daily For GERD 40 mg 2024 Active 2024 96846 51527 1 Once daily By Mouth False Sotalol 120 mg tablet [generic] 120 mg By Mouth Twice daily For SVT 120 mg 2024 Active 2024 52565 26524 1 Twice daily By Mouth False Rosuvastati n 20 mg tablet [generic] 20 mg By Mouth Once daily For HLD 20 mg 2024 Active 2024 86199 23690 0 Once daily By Mouth False Arformotero l 15 mcg/2 mL solution for nebulizatio n [generic] 15 mcg Inhalation Twice daily For copd/asthma/ interstitial lung disease 15 mcg 06/20 Inactiv e 2024 94942 49764 0 Twice daily Inhala tion False Budesonide 0.5 mg/2 mL suspension for nebulizatio n [generic] 0.5 mg Inhalation Twice daily For copd/ asthma/ interstital lung disease 0.5 mg 2024 Active 2024 17049 27071 8 Twice daily Inhala tion False Furosemide 40 mg tablet [generic] 40 mg By Mouth Once daily For chronic diastolic CHF 40 mg 2024 Active 2024 21442 10510 0 Once daily By Mouth False Furosemide 40 mg tablet [generic] 40 mg By Mouth Once daily For chronic diastolic CHF 40 mg 2024 Active 2024 32530 13949 0 Once daily By Mouth False Ventolin HFA 90 mcg/actuati on aerosol inhaler 2 puff Inhalation Every 6 hours as needed For SOB/ wheeze 2 puff 2024 Active 2024 04142 13356 0 Every 6 hours as needed Inhala tion False Amitriptyli ne 25 mg tablet [generic] 25 mg By Mouth At bedtime For general anxiety disorder 25 mg 2024 Active 2024 02142 34434 1 At bedtime By Mouth False Levothyroxi ne 125 mcg tablet [generic] 125 mcg By Mouth Once daily For hypothyroidis m 125 mcg 2024 Active 2024 12724 07704 0 Once daily By Mouth False Arformotero l 15 mcg/2 mL solution for nebulizatio n [generic] 06/20 Inactiv e 2024 60577 43966 0 Arformotero l 15 mcg/2 mL solution for nebulizatio n [generic] 15 mcg Inhalation Twice daily For copd/asthma/ interstitial lung disease 15 mcg 2024 Active 2024 01271 56314 0 Twice daily Inhala tion False Clonazepam 0.5 mg tablet [generic] 0.5mg By Mouth As Needed q12 hour PRN For anxiety 0.5mg 2024 Active 2024 98173 30842 0 By Mouth False Betadine Swabsticks 10 % 1 scott Topical Twice daily to bilateral heels For stage 2 pressure injury 1 sctot 2024 Active 2024 20602 35828 1 Twice daily Topica l False Problems [...] weight Temperature SpO2 Blood Sugar Pulse Respirations 07586 102 90900 9 83.00 mm[Hg] - Lying Down 170.00 mm[Hg] - Lying Down 98.20 Forehead Scan 98.00 % 86.00/ min 18.00/min 31546 102 41371 4 83.00 mm[Hg] - Sitting 170.00 mm[Hg] - Sitting 98.20 Tympanic 86.00/ min 18.00/min 71953 103 42966 5 98.20 Tympanic 47225 103 89292 3 80.00 mm[Hg] - Lying Down 164.00 mm[Hg] - Lying Down 91.00/ min 20.00/min 49775 103 85754 0 80.00 mm[Hg] - Sitting 164.00 mm[Hg] - Sitting 98.20 Tympanic 91.00/ min 18.00/min 50014 103 43467 7 91.00 % 20.00/min 42037 103 15624 3 94.00 % 18.00/min 07063 103 64027 9 03463 104 63479 6 80.00 mm[Hg] - Sitting 140.00 mm[Hg] - Sitting 98.10 Tympanic 94.00 % 64.00/ min 18.00/min 99584 104 01657 1 80.00 mm[Hg] - Sitting 140.00 mm[Hg] - Sitting 98.10 Tympanic 64.00/ min 18.00/min 37274 104 36606 0 80.00 mm[Hg] - Sitting 140.00 mm[Hg] - Sitting 98.10 Tympanic 64.00/ min 18.00/min 25878 104 19521 7 73.00 mm[Hg] - Sitting 136.00 mm[Hg] - Sitting 97.90 Forehead Scan 95.00 % 74.00/ min 16.00/min 40518 104 15371 8 73.00 mm[Hg] - Sitting 135.00 mm[Hg] - Sitting 98.20 Tympanic 74.00/ min 18.00/min 74201 104 68454 6 95.00 % 18.00/min 55075 104 95126 6 96.00 % 18.00/min 09708 104 40880 4 94.00 % 18.00/min 93579 104 68833 0 18.00/mi n 81230 105 40403 0 73.00 mm[Hg] - Sitting 135.00 mm[Hg] - Sitting 98.20 Tympanic 74.00/ min 18.00/min 13767 105 75205 6 73.00 mm[Hg] - Sitting 135.00 mm[Hg] - Sitting 98.20 Tympanic 74.00/ min 20.00/min 31673 105 99172 3 53.00 mm[Hg] - Sitting 126.00 mm[Hg] - Sitting 97.00 Tympanic 99.00 % 56.00/ min 20.00/min 63342 105 05976 6 93.00 % 20.00/min 91594 105 00297 8 94.00 % 20.00/min 83334 105 69304 3 97.00 % 18.00/min 95946 105 42336 9 96.00 % 18.00/min Immunizations Vaccine Date Status Other 06/20/2024 Completed
--- OUTSIDE RECORDS SUMMARY | 2024-07-19 23:10 | External Medical Summary | Continuity Of Care Document ---
Author Name Unknown Address [address] [facility] () Care Team Providers Care Consumer Loan Specialist Name Role Phone DO Lopez Amy Primary Care Provider [phone] Allergies Allergy Reaction Start Date End Date [...] 3 0.1 mL 06/23 Inactiv e 2024 37885 10737 0 At bedtime Intrad ermal False Tubersol 5 tub. unit/0.1 mL intradermal injection solution [Tuberculin PPD] 0.1mL Intradermal Once daily For PPD 2nd Step Give 2nd Step PPD Day 1 and Read results Day 3 (schedule 7 days after 1st READ) 0.1mL 07/03 Active 2024 41855 70170 0 Once daily Intrad ermal False Tylenol 325 mg tablet 2 tabs By Mouth Every 4 hours as needed For Pain DO NOT EXCEED 3000 MG APAP/24 Hours 2 tabs 2024 Active 2024 90090 83258 0 Every 4 hours as needed By Mouth False Dulcolax (bisacodyl) 10 mg rectal suppository One Suppository per rectum PRN if Milk of Magnisia ineffective. Give on day 5 of no BM 1 sup 2024 Active 2024 33474 75972 1 Daily as needed Rectal False Fleet Enema 19 gram-7 gram/118 mL Administer per rectum PRN one time if dulcolax suppository not effective. Give on day 6 of no BM 1 2024 Active 2024 71128 84535 6 Daily as needed Rectal False Tylenol 325 mg tablet 2 tabs By Mouth Every 4 hours as needed For Fever >100 DO NOT EXCEED 3000 MG APAP/24 Hours 2 tabs 2024 Active 2024 49823 81163 0 Every 4 hours as needed By Mouth False Eliquis 5 mg tablet 5 mg By Mouth Twice daily For afib 5 mg 2024 Active 2024 64978 14594 1 Twice daily By Mouth False Ferrous sulfate 325 mg (65 mg iron) tablet [generic] 325 mg By Mouth Once daily For supplement 325 mg 2024 Active 2024 49963 57215 5 Once daily By Mouth False Magnesium oxide 400 mg (241.3 mg magnesium) tablet [generic] 400 mg By Mouth Once daily For supplement 400 mg 2024 Active 2024 72541 92168 2 Once daily By Mouth False Protonix 40 mg tablet,bozena yed release 40 mg By Mouth Once daily For GERD 40 mg 2024 Active 2024 65173 19783 1 Once daily By Mouth False Sotalol 120 mg tablet [generic] 120 mg By Mouth Twice daily For SVT 120 mg 2024 Active 2024 14143 42275 1 Twice daily By Mouth False Rosuvastati n 20 mg tablet [generic] 20 mg By Mouth Once daily For HLD 20 mg 2024 Active 2024 65471 40029 0 Once daily By Mouth False Arformotero l 15 mcg/2 mL solution for nebulizatio n [generic] 15 mcg Inhalation Twice daily For copd/asthma/ interstitial lung disease 15 mcg 06/20 Inactiv e 2024 69608 17311 0 Twice daily Inhala tion False Budesonide 0.5 mg/2 mL suspension for nebulizatio n [generic] 0.5 mg Inhalation Twice daily For copd/ asthma/ interstital lung disease 0.5 mg 2024 Active 2024 72042 22536 8 Twice daily Inhala tion False Furosemide 40 mg tablet [generic] 40 mg By Mouth Once daily For chronic diastolic CHF 40 mg 2024 Active 2024 74595 37009 0 Once daily By Mouth False Furosemide 40 mg tablet [generic] 40 mg By Mouth Once daily For chronic diastolic CHF 40 mg 2024 Active 2024 10093 76698 0 Once daily By Mouth False Ventolin HFA 90 mcg/actuati on aerosol inhaler 2 puff Inhalation Every 6 hours as needed For SOB/ wheeze 2 puff 2024 Active 2024 14500 72873 0 Every 6 hours as needed Inhala tion False Amitriptyli ne 25 mg tablet [generic] 25 mg By Mouth At bedtime For general anxiety disorder 25 mg 2024 Active 2024 21861 11024 1 At bedtime By Mouth False Levothyroxi ne 125 mcg tablet [generic] 125 mcg By Mouth Once daily For hypothyroidis m 125 mcg 2024 Active 2024 67782 09397 0 Once daily By Mouth False Arformotero l 15 mcg/2 mL solution for nebulizatio n [generic] 06/20 Inactiv e 2024 39567 63289 0 Arformotero l 15 mcg/2 mL solution for nebulizatio n [generic] 15 mcg Inhalation Twice daily For copd/asthma/ interstitial lung disease 15 mcg 2024 Active 2024 60641 23000 0 Twice daily Inhala tion False Clonazepam 0.5 mg tablet [generic] 0.5mg By Mouth As Needed q12 hour PRN For anxiety 0.5mg 2024 Active 2024 69555 54334 0 By Mouth False Colace 100 mg capsule 100 mg By Mouth Twice daily For Constipation 100 mg 2024 Active 2024 66042 16820 1 Twice daily By Mouth False Betadine Swabsticks 10 % 1 scott Topical Twice daily to bilateral heels For stage 2 pressure injury 1 scott 2024 Active 2024 69325 39547 1 Twice daily Topica l False Problems [...] weight Temperature SpO2 Blood Sugar Pulse Respirations 97272 102 02294 9 83.00 mm[Hg] - Lying Down 170.00 mm[Hg] - Lying Down 98.20 Forehead Scan 98.00 % 86.00/ min 18.00/min 54615 102 62547 4 83.00 mm[Hg] - Sitting 170.00 mm[Hg] - Sitting 98.20 Tympanic 86.00/ min 18.00/min 92247 103 93119 5 98.20 Tympanic 43433 103 71913 3 80.00 mm[Hg] - Lying Down 164.00 mm[Hg] - Lying Down 91.00/ min 20.00/min 86509 103 13926 0 80.00 mm[Hg] - Sitting 164.00 mm[Hg] - Sitting 98.20 Tympanic 91.00/ min 18.00/min 62016 103 87437 7 91.00 % 20.00/min 05313 103 24818 3 94.00 % 18.00/min 36758 103 63358 9 64885 104 92418 6 80.00 mm[Hg] - Sitting 140.00 mm[Hg] - Sitting 98.10 Tympanic 94.00 % 64.00/ min 18.00/min 42115 104 12618 1 80.00 mm[Hg] - Sitting 140.00 mm[Hg] - Sitting 98.10 Tympanic 64.00/ min 18.00/min 80812 104 51365 0 80.00 mm[Hg] - Sitting 140.00 mm[Hg] - Sitting 98.10 Tympanic 64.00/ min 18.00/min 21424 104 88932 7 73.00 mm[Hg] - Sitting 136.00 mm[Hg] - Sitting 97.90 Forehead Scan 95.00 % 74.00/ min 16.00/min 76565 104 09901 8 73.00 mm[Hg] - Sitting 135.00 mm[Hg] - Sitting 98.20 Tympanic 74.00/ min 18.00/min 20854 104 99012 6 95.00 % 18.00/min 39736 104 62795 6 96.00 % 18.00/min 35818 104 65119 4 94.00 % 18.00/min 09270 104 01906 0 18.00/mi n 12289 105 05991 0 73.00 mm[Hg] - Sitting 135.00 mm[Hg] - Sitting 98.20 Tympanic 74.00/ min 18.00/min 98715 105 70223 6 73.00 mm[Hg] - Sitting 135.00 mm[Hg] - Sitting 98.20 Tympanic 74.00/ min 20.00/min 92162 105 28458 3 53.00 mm[Hg] - Sitting 126.00 mm[Hg] - Sitting 97.00 Tympanic 99.00 % 56.00/ min 20.00/min 09224 105 87093 6 93.00 % 20.00/min 72263 105 17445 8 94.00 % 20.00/min 72795 105 51382 3 97.00 % 18.00/min 63410 105 13737 9 96.00 % 18.00/min 60246 106 02145 0 67.00 mm[Hg] - Sitting 150.00 mm[Hg] - Sitting 98.80 Forehead Scan 97.00 % 58.00/ min 16.00/min 99843 107 71564 1 95.00 % 18.00/min 84057 107 20384 0 18.00/mi n Immunizations Vaccine Date Status Other 06/20/2024 Completed
--- OUTSIDE RECORDS SUMMARY | 2024-07-19 23:10 | External Medical Summary | Continuity Of Care Document ---
Author Name Unknown Address [address] [address] Organization [facility] () Care Team Providers Care Technical Business Systems Analyst Name Role Phone DO Lopez Amy Primary Care Provider [phone] Allergies Allergy Reaction Start Date End Date [...] 3 0.1 mL 06/23 Inactiv e 2024 34338 15119 0 At bedtime Intrad ermal False Tubersol 5 tub. unit/0.1 mL intradermal injection solution [Tuberculin PPD] 0.1mL Intradermal Once daily For PPD 2nd Step Give 2nd Step PPD Day 1 and Read results Day 3 (schedule 7 days after 1st READ) 0.1mL 07/03 Active 2024 88474 85330 0 Once daily Intrad ermal False Tylenol 325 mg tablet 2 tabs By Mouth Every 4 hours as needed For Pain DO NOT EXCEED 3000 MG APAP/24 Hours 2 tabs 2024 Active 2024 31873 78295 0 Every 4 hours as needed By Mouth False Dulcolax (bisacodyl) 10 mg rectal suppository One Suppository per rectum PRN if Milk of Magnisia ineffective. Give on day 5 of no BM 1 sup 2024 Active 2024 72576 32245 1 Daily as needed Rectal False Fleet Enema 19 gram-7 gram/118 mL Administer per rectum PRN one time if dulcolax suppository not effective. Give on day 6 of no BM 1 2024 Active 2024 92115 09399 6 Daily as needed Rectal False Tylenol 325 mg tablet 2 tabs By Mouth Every 4 hours as needed For Fever >100 DO NOT EXCEED 3000 MG APAP/24 Hours 2 tabs 2024 Active 2024 99848 61919 0 Every 4 hours as needed By Mouth False Eliquis 5 mg tablet 5 mg By Mouth Twice daily For afib 5 mg 2024 Active 2024 59941 18870 1 Twice daily By Mouth False Ferrous sulfate 325 mg (65 mg iron) tablet [generic] 325 mg By Mouth Once daily For supplement 325 mg 2024 Active 2024 77901 69491 5 Once daily By Mouth False Magnesium oxide 400 mg (241.3 mg magnesium) tablet [generic] 400 mg By Mouth Once daily For supplement 400 mg 2024 Active 2024 52025 00373 2 Once daily By Mouth False Protonix 40 mg tablet,bozena yed release 40 mg By Mouth Once daily For GERD 40 mg 2024 Active 2024 07429 33767 1 Once daily By Mouth False Sotalol 120 mg tablet [generic] 120 mg By Mouth Twice daily For SVT 120 mg 2024 Active 2024 12698 63684 1 Twice daily By Mouth False Rosuvastati n 20 mg tablet [generic] 20 mg By Mouth Once daily For HLD 20 mg 2024 Active 2024 07654 05872 0 Once daily By Mouth False Arformotero l 15 mcg/2 mL solution for nebulizatio n [generic] 15 mcg Inhalation Twice daily For copd/asthma/ interstitial lung disease 15 mcg 06/20 Inactiv e 2024 22618 60295 0 Twice daily Inhala tion False Budesonide 0.5 mg/2 mL suspension for nebulizatio n [generic] 0.5 mg Inhalation Twice daily For copd/ asthma/ interstital lung disease 0.5 mg 2024 Active 2024 45303 81446 8 Twice daily Inhala tion False Furosemide 40 mg tablet [generic] 40 mg By Mouth Once daily For chronic diastolic CHF 40 mg 2024 Active 2024 96411 31094 0 Once daily By Mouth False Furosemide 40 mg tablet [generic] 40 mg By Mouth Once daily For chronic diastolic CHF 40 mg 2024 Active 2024 71407 25789 0 Once daily By Mouth False Ventolin HFA 90 mcg/actuati on aerosol inhaler 2 puff Inhalation Every 6 hours as needed For SOB/ wheeze 2 puff 2024 Active 2024 43018 66379 0 Every 6 hours as needed Inhala tion False Amitriptyli ne 25 mg tablet [generic] 25 mg By Mouth At bedtime For general anxiety disorder 25 mg 2024 Active 2024 95778 03355 1 At bedtime By Mouth False Levothyroxi ne 125 mcg tablet [generic] 125 mcg By Mouth Once daily For hypothyroidis m 125 mcg 2024 Active 2024 88713 89437 0 Once daily By Mouth False Arformotero l 15 mcg/2 mL solution for nebulizatio n [generic] 06/20 Inactiv e 2024 21105 28061 0 Arformotero l 15 mcg/2 mL solution for nebulizatio n [generic] 15 mcg Inhalation Twice daily For copd/asthma/ interstitial lung disease 15 mcg 2024 Active 2024 12078 02618 0 Twice daily Inhala tion False Clonazepam 0.5 mg tablet [generic] 0.5mg By Mouth As Needed q12 hour PRN For anxiety 0.5mg 2024 Active 2024 45948 50566 0 By Mouth False Betadine Swabsticks 10 % 1 scott Topical Twice daily to bilateral heels For stage 2 pressure injury 1 scott 2024 Active 2024 35272 34332 1 Twice daily Topica l False Problems [...] weight Temperature SpO2 Blood Sugar Pulse Respirations 16283 102 93007 9 83.00 mm[Hg] - Lying Down 170.00 mm[Hg] - Lying Down 98.20 Forehead Scan 98.00 % 86.00/ min 18.00/min 04601 102 89358 4 83.00 mm[Hg] - Sitting 170.00 mm[Hg] - Sitting 98.20 Tympanic 86.00/ min 18.00/min 59982 103 27036 5 98.20 Tympanic 78805 103 98531 3 80.00 mm[Hg] - Lying Down 164.00 mm[Hg] - Lying Down 91.00/ min 20.00/min 88836 103 36641 0 80.00 mm[Hg] - Sitting 164.00 mm[Hg] - Sitting 98.20 Tympanic 91.00/ min 18.00/min 39609 103 23390 7 91.00 % 20.00/min 22393 103 21727 3 94.00 % 18.00/min 81667 103 03167 9 71907 104 41818 6 80.00 mm[Hg] - Sitting 140.00 mm[Hg] - Sitting 98.10 Tympanic 94.00 % 64.00/ min 18.00/min 64806 104 90084 1 80.00 mm[Hg] - Sitting 140.00 mm[Hg] - Sitting 98.10 Tympanic 64.00/ min 18.00/min 80498 104 68747 0 80.00 mm[Hg] - Sitting 140.00 mm[Hg] - Sitting 98.10 Tympanic 64.00/ min 18.00/min 65466 104 45486 7 73.00 mm[Hg] - Sitting 136.00 mm[Hg] - Sitting 97.90 Forehead Scan 95.00 % 74.00/ min 16.00/min 87179 104 17902 8 73.00 mm[Hg] - Sitting 135.00 mm[Hg] - Sitting 98.20 Tympanic 74.00/ min 18.00/min 98179 104 48807 6 95.00 % 18.00/min 67731 104 99674 6 96.00 % 18.00/min 18394 104 68914 4 94.00 % 18.00/min 18022 104 68342 0 18.00/mi n 49602 105 08584 0 73.00 mm[Hg] - Sitting 135.00 mm[Hg] - Sitting 98.20 Tympanic 74.00/ min 18.00/min 81641 105 49535 6 73.00 mm[Hg] - Sitting 135.00 mm[Hg] - Sitting 98.20 Tympanic 74.00/ min 20.00/min 05526 105 94769 3 53.00 mm[Hg] - Sitting 126.00 mm[Hg] - Sitting 97.00 Tympanic 99.00 % 56.00/ min 20.00/min 64553 105 40414 6 93.00 % 20.00/min 02482 105 61896 8 94.00 % 20.00/min 70492 105 47265 3 97.00 % 18.00/min 90705 105 42977 9 96.00 % 18.00/min 65065 106 42747 0 67.00 mm[Hg] - Sitting 150.00 mm[Hg] - Sitting 98.80 Forehead Scan 97.00 % 58.00/ min 16.00/min 63357 107 19690 1 95.00 % 18.00/min 44368 107 64916 0 18.00/mi n Immunizations Vaccine Date Status Other 06/20/2024 Completed
--- OUTSIDE RECORDS SUMMARY | 2024-07-19 23:10 | External Medical Summary | Continuity Of Care Document ---
Author Name Unknown Address [address] [address] Organization [facility] () Care Team Providers Care Tapper Supervisor Name Role Phone DO Lopez Amy Primary Care Provider [phone] Allergies Allergy Reaction Start Date End Date [...] 3 0.1 mL 06/23 Inactiv e 2024 44246 95043 0 At bedtime Intrad ermal False Tubersol 5 tub. unit/0.1 mL intradermal injection solution [Tuberculin PPD] 0.1mL Intradermal Once daily For PPD 2nd Step Give 2nd Step PPD Day 1 and Read results Day 3 (schedule 7 days after 1st READ) 0.1mL 07/03 Active 2024 62879 66507 0 Once daily Intrad ermal False Tylenol 325 mg tablet 2 tabs By Mouth Every 4 hours as needed For Pain DO NOT EXCEED 3000 MG APAP/24 Hours 2 tabs 2024 Active 2024 71635 45975 0 Every 4 hours as needed By Mouth False Dulcolax (bisacodyl) 10 mg rectal suppository One Suppository per rectum PRN if Milk of Magnisia ineffective. Give on day 5 of no BM 1 sup 2024 Active 2024 81994 44490 1 Daily as needed Rectal False Fleet Enema 19 gram-7 gram/118 mL Administer per rectum PRN one time if dulcolax suppository not effective. Give on day 6 of no BM 1 2024 Active 2024 53008 05589 6 Daily as needed Rectal False Tylenol 325 mg tablet 2 tabs By Mouth Every 4 hours as needed For Fever >100 DO NOT EXCEED 3000 MG APAP/24 Hours 2 tabs 2024 Active 2024 26743 29042 0 Every 4 hours as needed By Mouth False Eliquis 5 mg tablet 5 mg By Mouth Twice daily For afib 5 mg 2024 Active 2024 72523 60974 1 Twice daily By Mouth False Ferrous sulfate 325 mg (65 mg iron) tablet [generic] 325 mg By Mouth Once daily For supplement 325 mg 2024 Active 2024 20165 57790 5 Once daily By Mouth False Magnesium oxide 400 mg (241.3 mg magnesium) tablet [generic] 400 mg By Mouth Once daily For supplement 400 mg 2024 Active 2024 00821 18119 2 Once daily By Mouth False Protonix 40 mg tablet,bozena yed release 40 mg By Mouth Once daily For GERD 40 mg 2024 Active 2024 09732 63945 1 Once daily By Mouth False Sotalol 120 mg tablet [generic] 120 mg By Mouth Twice daily For SVT 120 mg 2024 Active 2024 07703 59516 1 Twice daily By Mouth False Rosuvastati n 20 mg tablet [generic] 20 mg By Mouth Once daily For HLD 20 mg 2024 Active 2024 52913 47608 0 Once daily By Mouth False Arformotero l 15 mcg/2 mL solution for nebulizatio n [generic] 15 mcg Inhalation Twice daily For copd/asthma/ interstitial lung disease 15 mcg 06/20 Inactiv e 2024 25975 36839 0 Twice daily Inhala tion False Budesonide 0.5 mg/2 mL suspension for nebulizatio n [generic] 0.5 mg Inhalation Twice daily For copd/ asthma/ interstital lung disease 0.5 mg 2024 Active 2024 46855 62492 8 Twice daily Inhala tion False Furosemide 40 mg tablet [generic] 40 mg By Mouth Once daily For chronic diastolic CHF 40 mg 2024 Active 2024 97555 38161 0 Once daily By Mouth False Furosemide 40 mg tablet [generic] 40 mg By Mouth Once daily For chronic diastolic CHF 40 mg 2024 Active 2024 89948 78549 0 Once daily By Mouth False Ventolin HFA 90 mcg/actuati on aerosol inhaler 2 puff Inhalation Every 6 hours as needed For SOB/ wheeze 2 puff 2024 Active 2024 11593 61467 0 Every 6 hours as needed Inhala tion False Amitriptyli ne 25 mg tablet [generic] 25 mg By Mouth At bedtime For general anxiety disorder 25 mg 2024 Active 2024 23844 30358 1 At bedtime By Mouth False Levothyroxi ne 125 mcg tablet [generic] 125 mcg By Mouth Once daily For hypothyroidis m 125 mcg 2024 Active 2024 99932 24361 0 Once daily By Mouth False Arformotero l 15 mcg/2 mL solution for nebulizatio n [generic] 06/20 Inactiv e 2024 70971 71173 0 Arformotero l 15 mcg/2 mL solution for nebulizatio n [generic] 15 mcg Inhalation Twice daily For copd/asthma/ interstitial lung disease 15 mcg 2024 Active 2024 08138 63511 0 Twice daily Inhala tion False Clonazepam 0.5 mg tablet [generic] 0.5mg By Mouth As Needed q12 hour PRN For anxiety 0.5mg 2024 Active 2024 53531 84067 0 By Mouth False Betadine Swabsticks 10 % 1 scott Topical Twice daily to bilateral heels For stage 2 pressure injury 1 scott 2024 Active 2024 67505 85760 1 Twice daily Topica l False Problems [...] weight Temperature SpO2 Blood Sugar Pulse Respirations 68810 102 94907 9 83.00 mm[Hg] - Lying Down 170.00 mm[Hg] - Lying Down 98.20 Forehead Scan 98.00 % 86.00/ min 18.00/min 92765 102 18275 4 83.00 mm[Hg] - Sitting 170.00 mm[Hg] - Sitting 98.20 Tympanic 86.00/ min 18.00/min 84202 103 43458 5 98.20 Tympanic 65899 103 20694 3 80.00 mm[Hg] - Lying Down 164.00 mm[Hg] - Lying Down 91.00/ min 20.00/min 46436 103 95779 0 80.00 mm[Hg] - Sitting 164.00 mm[Hg] - Sitting 98.20 Tympanic 91.00/ min 18.00/min 89169 103 49852 7 91.00 % 20.00/min 94536 103 41564 3 94.00 % 18.00/min 18118 103 35464 9 49377 104 92488 6 80.00 mm[Hg] - Sitting 140.00 mm[Hg] - Sitting 98.10 Tympanic 94.00 % 64.00/ min 18.00/min 98380 104 53512 1 80.00 mm[Hg] - Sitting 140.00 mm[Hg] - Sitting 98.10 Tympanic 64.00/ min 18.00/min 84422 104 88815 0 80.00 mm[Hg] - Sitting 140.00 mm[Hg] - Sitting 98.10 Tympanic 64.00/ min 18.00/min 12546 104 28486 7 73.00 mm[Hg] - Sitting 136.00 mm[Hg] - Sitting 97.90 Forehead Scan 95.00 % 74.00/ min 16.00/min 80580 104 15573 8 73.00 mm[Hg] - Sitting 135.00 mm[Hg] - Sitting 98.20 Tympanic 74.00/ min 18.00/min 59705 104 85671 6 95.00 % 18.00/min 39027 104 03262 6 96.00 % 18.00/min 03961 104 65259 4 94.00 % 18.00/min 75393 104 71692 0 18.00/mi n 72185 105 46934 0 73.00 mm[Hg] - Sitting 135.00 mm[Hg] - Sitting 98.20 Tympanic 74.00/ min 18.00/min 14616 105 89538 6 73.00 mm[Hg] - Sitting 135.00 mm[Hg] - Sitting 98.20 Tympanic 74.00/ min 20.00/min 71098 105 59661 3 53.00 mm[Hg] - Sitting 126.00 mm[Hg] - Sitting 97.00 Tympanic 99.00 % 56.00/ min 20.00/min 12868 105 09717 6 93.00 % 20.00/min 24657 105 23418 8 94.00 % 20.00/min 19242 105 90554 3 97.00 % 18.00/min 91968 105 00667 9 96.00 % 18.00/min Immunizations Vaccine Date Status Other 06/20/2024 Completed
--- OUTSIDE RECORDS SUMMARY | 2024-07-19 23:10 | External Medical Summary | Continuity Of Care Document ---
Author Name Unknown Address [address] [address] Organization [facility] () Care Team Providers Care Library Clerk Talking Books Name Role Phone DO Lopez Amy Primary Care Provider [phone] Allergies Allergy Reaction Start Date End Date [...] 3 0.1 mL 06/23 Inactiv e 2024 93309 07381 0 At bedtime Intrad ermal False Tubersol 5 tub. unit/0.1 mL intradermal injection solution [Tuberculin PPD] 0.1mL Intradermal Once daily For PPD 2nd Step Give 2nd Step PPD Day 1 and Read results Day 3 (schedule 7 days after 1st READ) 0.1mL 07/03 Active 2024 31003 34012 0 Once daily Intrad ermal False Tylenol 325 mg tablet 2 tabs By Mouth Every 4 hours as needed For Pain DO NOT EXCEED 3000 MG APAP/24 Hours 2 tabs 2024 Active 2024 27372 51754 0 Every 4 hours as needed By Mouth False Dulcolax (bisacodyl) 10 mg rectal suppository One Suppository per rectum PRN if Milk of Magnisia ineffective. Give on day 5 of no BM 1 sup 2024 Active 2024 43516 33066 1 Daily as needed Rectal False Fleet Enema 19 gram-7 gram/118 mL Administer per rectum PRN one time if dulcolax suppository not effective. Give on day 6 of no BM 1 2024 Active 2024 85647 30935 6 Daily as needed Rectal False Tylenol 325 mg tablet 2 tabs By Mouth Every 4 hours as needed For Fever >100 DO NOT EXCEED 3000 MG APAP/24 Hours 2 tabs 2024 Active 2024 74870 68234 0 Every 4 hours as needed By Mouth False Eliquis 5 mg tablet 5 mg By Mouth Twice daily For afib 5 mg 2024 Active 2024 10445 89441 1 Twice daily By Mouth False Ferrous sulfate 325 mg (65 mg iron) tablet [generic] 325 mg By Mouth Once daily For supplement 325 mg 2024 Active 2024 83421 01313 5 Once daily By Mouth False Magnesium oxide 400 mg (241.3 mg magnesium) tablet [generic] 400 mg By Mouth Once daily For supplement 400 mg 2024 Active 2024 22800 61260 2 Once daily By Mouth False Protonix 40 mg tablet,bozena yed release 40 mg By Mouth Once daily For GERD 40 mg 2024 Active 2024 01520 81620 1 Once daily By Mouth False Sotalol 120 mg tablet [generic] 120 mg By Mouth Twice daily For SVT 120 mg 2024 Active 2024 54517 09670 1 Twice daily By Mouth False Rosuvastati n 20 mg tablet [generic] 20 mg By Mouth Once daily For HLD 20 mg 2024 Active 2024 60595 36275 0 Once daily By Mouth False Arformotero l 15 mcg/2 mL solution for nebulizatio n [generic] 15 mcg Inhalation Twice daily For copd/asthma/ interstitial lung disease 15 mcg 06/20 Inactiv e 2024 00889 81687 0 Twice daily Inhala tion False Budesonide 0.5 mg/2 mL suspension for nebulizatio n [generic] 0.5 mg Inhalation Twice daily For copd/ asthma/ interstital lung disease 0.5 mg 2024 Active 2024 79667 26960 8 Twice daily Inhala tion False Furosemide 40 mg tablet [generic] 40 mg By Mouth Once daily For chronic diastolic CHF 40 mg 2024 Active 2024 23180 71280 0 Once daily By Mouth False Furosemide 40 mg tablet [generic] 40 mg By Mouth Once daily For chronic diastolic CHF 40 mg 2024 Active 2024 53234 35123 0 Once daily By Mouth False Ventolin HFA 90 mcg/actuati on aerosol inhaler 2 puff Inhalation Every 6 hours as needed For SOB/ wheeze 2 puff 2024 Active 2024 30322 98433 0 Every 6 hours as needed Inhala tion False Amitriptyli ne 25 mg tablet [generic] 25 mg By Mouth At bedtime For general anxiety disorder 25 mg 2024 Active 2024 97416 88369 1 At bedtime By Mouth False Levothyroxi ne 125 mcg tablet [generic] 125 mcg By Mouth Once daily For hypothyroidis m 125 mcg 2024 Active 2024 94634 85195 0 Once daily By Mouth False Arformotero l 15 mcg/2 mL solution for nebulizatio n [generic] 06/20 Inactiv e 2024 33222 99394 0 Arformotero l 15 mcg/2 mL solution for nebulizatio n [generic] 15 mcg Inhalation Twice daily For copd/asthma/ interstitial lung disease 15 mcg 2024 Active 2024 10638 72361 0 Twice daily Inhala tion False Clonazepam 0.5 mg tablet [generic] 0.5mg By Mouth As Needed q12 hour PRN For anxiety 0.5mg 2024 Active 2024 98200 55590 0 By Mouth False Colace 100 mg capsule 100 mg By Mouth Twice daily For Constipation 100 mg 2024 Active 2024 01387 03293 1 Twice daily By Mouth False Betadine Swabsticks 10 % 1 scott Topical Twice daily to bilateral heels For stage 2 pressure injury 1 scott 2024 Active 2024 27661 22358 1 Twice daily Topica l False Problems [...] weight Temperature SpO2 Blood Sugar Pulse Respirations 02266 102 70661 9 83.00 mm[Hg] - Lying Down 170.00 mm[Hg] - Lying Down 98.20 Forehead Scan 98.00 % 86.00/ min 18.00/min 23061 102 33437 4 83.00 mm[Hg] - Sitting 170.00 mm[Hg] - Sitting 98.20 Tympanic 86.00/ min 18.00/min 78652 103 92205 5 98.20 Tympanic 96752 103 02516 3 80.00 mm[Hg] - Lying Down 164.00 mm[Hg] - Lying Down 91.00/ min 20.00/min 20635 103 84551 0 80.00 mm[Hg] - Sitting 164.00 mm[Hg] - Sitting 98.20 Tympanic 91.00/ min 18.00/min 79663 103 46456 7 91.00 % 20.00/min 69718 103 40720 3 94.00 % 18.00/min 27969 103 45764 9 74489 104 39959 6 80.00 mm[Hg] - Sitting 140.00 mm[Hg] - Sitting 98.10 Tympanic 94.00 % 64.00/ min 18.00/min 87010 104 54060 1 80.00 mm[Hg] - Sitting 140.00 mm[Hg] - Sitting 98.10 Tympanic 64.00/ min 18.00/min 05693 104 25032 0 80.00 mm[Hg] - Sitting 140.00 mm[Hg] - Sitting 98.10 Tympanic 64.00/ min 18.00/min 33763 104 06586 7 73.00 mm[Hg] - Sitting 136.00 mm[Hg] - Sitting 97.90 Forehead Scan 95.00 % 74.00/ min 16.00/min 90288 104 77677 8 73.00 mm[Hg] - Sitting 135.00 mm[Hg] - Sitting 98.20 Tympanic 74.00/ min 18.00/min 92664 104 96724 6 95.00 % 18.00/min 74710 104 20843 6 96.00 % 18.00/min 63480 104 12560 4 94.00 % 18.00/min 51443 104 54536 0 18.00/mi n 47546 105 99920 0 73.00 mm[Hg] - Sitting 135.00 mm[Hg] - Sitting 98.20 Tympanic 74.00/ min 18.00/min 26741 105 30173 6 73.00 mm[Hg] - Sitting 135.00 mm[Hg] - Sitting 98.20 Tympanic 74.00/ min 20.00/min 56995 105 02203 3 53.00 mm[Hg] - Sitting 126.00 mm[Hg] - Sitting 97.00 Tympanic 99.00 % 56.00/ min 20.00/min 26830 105 61010 6 93.00 % 20.00/min 78205 105 29402 8 94.00 % 20.00/min 33038 105 23835 3 97.00 % 18.00/min 23295 105 62229 9 96.00 % 18.00/min 79201 106 64189 0 67.00 mm[Hg] - Sitting 150.00 mm[Hg] - Sitting 98.80 Forehead Scan 97.00 % 58.00/ min 16.00/min 71705 107 31501 1 95.00 % 18.00/min 92342 107 26749 0 18.00/mi n Immunizations Vaccine Date Status Other 06/20/2024 Completed
--- OUTSIDE RECORDS SUMMARY | 2024-07-19 23:10 | External Medical Summary | Continuity Of Care Document ---
Author Name Unknown Address [address] [address] Organization [facility] () Care Team Providers Care Biomedical Engineering Professor Name Role Phone DO Lopez Amy Primary Care Provider [phone] Allergies Allergy Reaction Start Date End Date [...] 3 0.1 mL 06/23 Inactiv e 2024 52833 40044 0 At bedtime Intrad ermal False Tubersol 5 tub. unit/0.1 mL intradermal injection solution [Tuberculin PPD] 0.1mL Intradermal Once daily For PPD 2nd Step Give 2nd Step PPD Day 1 and Read results Day 3 (schedule 7 days after 1st READ) 0.1mL 07/03 Active 2024 33337 95602 0 Once daily Intrad ermal False Tylenol 325 mg tablet 2 tabs By Mouth Every 4 hours as needed For Pain DO NOT EXCEED 3000 MG APAP/24 Hours 2 tabs 2024 Active 2024 51711 31070 0 Every 4 hours as needed By Mouth False Dulcolax (bisacodyl) 10 mg rectal suppository One Suppository per rectum PRN if Milk of Magnisia ineffective. Give on day 5 of no BM 1 sup 2024 Active 2024 41703 22987 1 Daily as needed Rectal False Fleet Enema 19 gram-7 gram/118 mL Administer per rectum PRN one time if dulcolax suppository not effective. Give on day 6 of no BM 1 2024 Active 2024 14238 45113 6 Daily as needed Rectal False Tylenol 325 mg tablet 2 tabs By Mouth Every 4 hours as needed For Fever >100 DO NOT EXCEED 3000 MG APAP/24 Hours 2 tabs 2024 Active 2024 68664 92966 0 Every 4 hours as needed By Mouth False Eliquis 5 mg tablet 5 mg By Mouth Twice daily For afib 5 mg 2024 Active 2024 62748 48982 1 Twice daily By Mouth False Ferrous sulfate 325 mg (65 mg iron) tablet [generic] 325 mg By Mouth Once daily For supplement 325 mg 2024 Active 2024 59692 36584 5 Once daily By Mouth False Magnesium oxide 400 mg (241.3 mg magnesium) tablet [generic] 400 mg By Mouth Once daily For supplement 400 mg 2024 Active 2024 60741 02956 2 Once daily By Mouth False Protonix 40 mg tablet,bozena yed release 40 mg By Mouth Once daily For GERD 40 mg 2024 Active 2024 10530 20604 1 Once daily By Mouth False Sotalol 120 mg tablet [generic] 120 mg By Mouth Twice daily For SVT 120 mg 2024 Active 2024 11998 06366 1 Twice daily By Mouth False Rosuvastati n 20 mg tablet [generic] 20 mg By Mouth Once daily For HLD 20 mg 2024 Active 2024 30010 49217 0 Once daily By Mouth False Arformotero l 15 mcg/2 mL solution for nebulizatio n [generic] 15 mcg Inhalation Twice daily For copd/asthma/ interstitial lung disease 15 mcg 06/20 Inactiv e 2024 02537 13975 0 Twice daily Inhala tion False Budesonide 0.5 mg/2 mL suspension for nebulizatio n [generic] 0.5 mg Inhalation Twice daily For copd/ asthma/ interstital lung disease 0.5 mg 2024 Active 2024 88656 44356 8 Twice daily Inhala tion False Furosemide 40 mg tablet [generic] 40 mg By Mouth Once daily For chronic diastolic CHF 40 mg 2024 Active 2024 61077 50799 0 Once daily By Mouth False Furosemide 40 mg tablet [generic] 40 mg By Mouth Once daily For chronic diastolic CHF 40 mg 2024 Active 2024 96773 54535 0 Once daily By Mouth False Ventolin HFA 90 mcg/actuati on aerosol inhaler 2 puff Inhalation Every 6 hours as needed For SOB/ wheeze 2 puff 2024 Active 2024 45018 77550 0 Every 6 hours as needed Inhala tion False Amitriptyli ne 25 mg tablet [generic] 25 mg By Mouth At bedtime For general anxiety disorder 25 mg 2024 Active 2024 86730 31307 1 At bedtime By Mouth False Levothyroxi ne 125 mcg tablet [generic] 125 mcg By Mouth Once daily For hypothyroidis m 125 mcg 2024 Active 2024 94566 00258 0 Once daily By Mouth False Arformotero l 15 mcg/2 mL solution for nebulizatio n [generic] 06/20 Inactiv e 2024 43720 13151 0 Arformotero l 15 mcg/2 mL solution for nebulizatio n [generic] 15 mcg Inhalation Twice daily For copd/asthma/ interstitial lung disease 15 mcg 2024 Active 2024 19884 89595 0 Twice daily Inhala tion False Clonazepam 0.5 mg tablet [generic] 0.5mg By Mouth As Needed q12 hour PRN For anxiety 0.5mg 2024 Active 2024 94860 51031 0 By Mouth False Betadine Swabsticks 10 % 1 scott Topical Twice daily to bilateral heels For stage 2 pressure injury 1 scott 2024 Active 2024 50961 69190 1 Twice daily Topica l False VITAL SIGNS Date Time Diastolic blood pressure Systolic blood pressure Body height Body weight Temperature SpO2 Blood Sugar Pulse Respirations 84749 102 23905 9 83.00 mm[Hg] - Lying Down 170.00 mm[Hg] - Lying Down 98.20 Forehead Scan 98.00 % 86.00/ min 18.00/min 60692 102 33764 4 83.00 mm[Hg] - Sitting 170.00 mm[Hg] - Sitting 98.20 Tympanic 86.00/ min 18.00/min 62470 103 75152 5 98.20 Tympanic 84566 103 97142 3 80.00 mm[Hg] - Lying Down 164.00 mm[Hg] - Lying Down 91.00/ min 20.00/min 35887 103 06035 0 80.00 mm[Hg] - Sitting 164.00 mm[Hg] - Sitting 98.20 Tympanic 91.00/ min 18.00/min 41194 103 06917 7 91.00 % 20.00/min 85014 103 79450 3 94.00 % 18.00/min 88315 103 37098 9 19904 104 54587 6 80.00 mm[Hg] - Sitting 140.00 mm[Hg] - Sitting 98.10 Tympanic 94.00 % 64.00/ min 18.00/min 07893 104 53710 1 80.00 mm[Hg] - Sitting 140.00 mm[Hg] - Sitting 98.10 Tympanic 64.00/ min 18.00/min 26728 104 07050 0 80.00 mm[Hg] - Sitting 140.00 mm[Hg] - Sitting 98.10 Tympanic 64.00/ min 18.00/min 46145 104 73614 7 73.00 mm[Hg] - Sitting 136.00 mm[Hg] - Sitting 97.90 Forehead Scan 95.00 % 74.00/ min 16.00/min 31196 104 68514 8 73.00 mm[Hg] - Sitting 135.00 mm[Hg] - Sitting 98.20 Tympanic 74.00/ min 18.00/min 94265 104 82208 6 95.00 % 18.00/min 97621 104 58465 6 96.00 % 18.00/min 94938 104 42299 4 94.00 % 18.00/min 16274 104 26274 0 18.00/mi n 22235 105 35817 0 73.00 mm[Hg] - Sitting 135.00 mm[Hg] - Sitting 98.20 Tympanic 74.00/ min 18.00/min 71369 105 90712 6 73.00 mm[Hg] - Sitting 135.00 mm[Hg] - Sitting 98.20 Tympanic 74.00/ min 20.00/min 93396 105 43899 6 93.00 % 20.00/min 32221 105 22531 8 94.00 % 20.00/min 42408 105 94806 3 97.00 % 18.00/min 22276 105 55801 9 96.00 % 18.00/min Immunizations Vaccine Date Status Other 06/20/2024 Completed
--- OUTSIDE RECORDS SUMMARY | 2024-07-19 23:10 | External Medical Summary | Continuity Of Care Document ---
Author Name Unknown Address [address] [address] Organization [facility] () Care Team Providers Care Radiologist Chief Of Breast Imaging Name Role Phone DO Lopez Amy Primary Care Provider [phone] Allergies Allergy Reaction Start Date End Date [...] 3 0.1 mL 06/23 Inactiv e 2024 37034 59355 0 At bedtime Intrad ermal False Tubersol 5 tub. unit/0.1 mL intradermal injection solution [Tuberculin PPD] 0.1mL Intradermal Once daily For PPD 2nd Step Give 2nd Step PPD Day 1 and Read results Day 3 (schedule 7 days after 1st READ) 0.1mL 07/03 Active 2024 28124 51924 0 Once daily Intrad ermal False Tylenol 325 mg tablet 2 tabs By Mouth Every 4 hours as needed For Pain DO NOT EXCEED 3000 MG APAP/24 Hours 2 tabs 2024 Active 2024 43022 75095 0 Every 4 hours as needed By Mouth False Dulcolax (bisacodyl) 10 mg rectal suppository One Suppository per rectum PRN if Milk of Magnisia ineffective. Give on day 5 of no BM 1 sup 2024 Active 2024 76667 12761 1 Daily as needed Rectal False Fleet Enema 19 gram-7 gram/118 mL Administer per rectum PRN one time if dulcolax suppository not effective. Give on day 6 of no BM 1 2024 Active 2024 04174 55899 6 Daily as needed Rectal False Tylenol 325 mg tablet 2 tabs By Mouth Every 4 hours as needed For Fever >100 DO NOT EXCEED 3000 MG APAP/24 Hours 2 tabs 2024 Active 2024 41782 06610 0 Every 4 hours as needed By Mouth False Eliquis 5 mg tablet 5 mg By Mouth Twice daily For afib 5 mg 2024 Active 2024 67245 17577 1 Twice daily By Mouth False Ferrous sulfate 325 mg (65 mg iron) tablet [generic] 325 mg By Mouth Once daily For supplement 325 mg 2024 Active 2024 54984 15198 5 Once daily By Mouth False Magnesium oxide 400 mg (241.3 mg magnesium) tablet [generic] 400 mg By Mouth Once daily For supplement 400 mg 2024 Active 2024 06353 90141 2 Once daily By Mouth False Protonix 40 mg tablet,bozena yed release 40 mg By Mouth Once daily For GERD 40 mg 2024 Active 2024 84707 00469 1 Once daily By Mouth False Sotalol 120 mg tablet [generic] 120 mg By Mouth Twice daily For SVT 120 mg 2024 Active 2024 45984 65152 1 Twice daily By Mouth False Rosuvastati n 20 mg tablet [generic] 20 mg By Mouth Once daily For HLD 20 mg 2024 Active 2024 50703 00437 0 Once daily By Mouth False Arformotero l 15 mcg/2 mL solution for nebulizatio n [generic] 15 mcg Inhalation Twice daily For copd/asthma/ interstitial lung disease 15 mcg 06/20 Inactiv e 2024 21271 80438 0 Twice daily Inhala tion False Budesonide 0.5 mg/2 mL suspension for nebulizatio n [generic] 0.5 mg Inhalation Twice daily For copd/ asthma/ interstital lung disease 0.5 mg 2024 Active 2024 32282 02074 8 Twice daily Inhala tion False Furosemide 40 mg tablet [generic] 40 mg By Mouth Once daily For chronic diastolic CHF 40 mg 2024 Active 2024 80066 53028 0 Once daily By Mouth False Furosemide 40 mg tablet [generic] 40 mg By Mouth Once daily For chronic diastolic CHF 40 mg 2024 Active 2024 02086 76654 0 Once daily By Mouth False Ventolin HFA 90 mcg/actuati on aerosol inhaler 2 puff Inhalation Every 6 hours as needed For SOB/ wheeze 2 puff 2024 Active 2024 80077 62693 0 Every 6 hours as needed Inhala tion False Amitriptyli ne 25 mg tablet [generic] 25 mg By Mouth At bedtime For general anxiety disorder 25 mg 2024 Active 2024 95729 48889 1 At bedtime By Mouth False Levothyroxi ne 125 mcg tablet [generic] 125 mcg By Mouth Once daily For hypothyroidis m 125 mcg 2024 Active 2024 82233 89706 0 Once daily By Mouth False Arformotero l 15 mcg/2 mL solution for nebulizatio n [generic] 06/20 Inactiv e 2024 93330 99549 0 Arformotero l 15 mcg/2 mL solution for nebulizatio n [generic] 15 mcg Inhalation Twice daily For copd/asthma/ interstitial lung disease 15 mcg 2024 Active 2024 47986 54816 0 Twice daily Inhala tion False Clonazepam 0.5 mg tablet [generic] 0.5mg By Mouth As Needed q12 hour PRN For anxiety 0.5mg 2024 Active 2024 35328 70335 0 By Mouth False Colace 100 mg capsule 100 mg By Mouth Twice daily For Constipation 100 mg 2024 Active 2024 55353 60972 1 Twice daily By Mouth False Boost 0.04 gram-1 kcal/mL oral liquid 1 carton By Mouth 3 times a day For malnutrition 1 carton 2024 Active 2024 45153 16412 9 3 times a day By Mouth False Betadine Swabsticks 10 % 1 scott Topical Twice daily to bilateral heels For stage 2 pressure injury 1 scott 2024 Active 2024 04364 53286 1 Twice daily Topica l False Problems [...] weight Temperature SpO2 Blood Sugar Pulse Respirations 97291 102 46070 9 83.00 mm[Hg] - Lying Down 170.00 mm[Hg] - Lying Down 98.20 Forehead Scan 98.00 % 86.00/ min 18.00/min 55636 102 79238 4 83.00 mm[Hg] - Sitting 170.00 mm[Hg] - Sitting 98.20 Tympanic 86.00/ min 18.00/min 79957 103 65722 5 98.20 Tympanic 50082 103 54874 3 80.00 mm[Hg] - Lying Down 164.00 mm[Hg] - Lying Down 91.00/ min 20.00/min 21089 103 10953 0 80.00 mm[Hg] - Sitting 164.00 mm[Hg] - Sitting 98.20 Tympanic 91.00/ min 18.00/min 74491 103 74743 7 91.00 % 20.00/min 51434 103 52794 3 94.00 % 18.00/min 79915 103 31388 9 05152 104 04351 6 80.00 mm[Hg] - Sitting 140.00 mm[Hg] - Sitting 98.10 Tympanic 94.00 % 64.00/ min 18.00/min 24725 104 38091 1 80.00 mm[Hg] - Sitting 140.00 mm[Hg] - Sitting 98.10 Tympanic 64.00/ min 18.00/min 79714 104 05033 0 80.00 mm[Hg] - Sitting 140.00 mm[Hg] - Sitting 98.10 Tympanic 64.00/ min 18.00/min 08452 104 95205 7 73.00 mm[Hg] - Sitting 136.00 mm[Hg] - Sitting 97.90 Forehead Scan 95.00 % 74.00/ min 16.00/min 49759 104 07597 8 73.00 mm[Hg] - Sitting 135.00 mm[Hg] - Sitting 98.20 Tympanic 74.00/ min 18.00/min 74067 104 31106 6 95.00 % 18.00/min 83324 104 41178 6 96.00 % 18.00/min 79319 104 71236 4 94.00 % 18.00/min 63543 104 85491 0 18.00/mi n 35071 105 94354 0 73.00 mm[Hg] - Sitting 135.00 mm[Hg] - Sitting 98.20 Tympanic 74.00/ min 18.00/min 65590 105 67336 6 73.00 mm[Hg] - Sitting 135.00 mm[Hg] - Sitting 98.20 Tympanic 74.00/ min 20.00/min 68423 105 58605 3 53.00 mm[Hg] - Sitting 126.00 mm[Hg] - Sitting 97.00 Tympanic 99.00 % 56.00/ min 20.00/min 64451 105 29309 6 93.00 % 20.00/min 24363 105 33115 8 94.00 % 20.00/min 55923 105 13590 3 97.00 % 18.00/min 79639 105 31010 9 96.00 % 18.00/min 85719 106 60374 0 67.00 mm[Hg] - Sitting 150.00 mm[Hg] - Sitting 98.80 Forehead Scan 97.00 % 58.00/ min 16.00/min 24294 107 53358 1 95.00 % 18.00/min 21344 107 21314 0 18.00/mi n Immunizations Vaccine Date Status Other 06/20/2024 Completed
--- OUTSIDE RECORDS SUMMARY | 2024-07-19 23:11 | External Medical Summary | Continuity Of Care Document ---
Author Name Unknown Address [address] [address] Organization [facility] () Care Team Providers Care Rigging Slinger Name Role Phone DO Lopez Amy Primary Care Provider [phone] Medications Medication Instructions Dosage Start Date End Date Status Order Date Drug Code Frequency Route of Admin Diagnosis Code Substitutions Allowed Tylenol 325 mg tablet 2 tabs By Mouth Every 4 hours as needed For Pain DO NOT EXCEED 3000 MG APAP/24 Hours 2 tabs 2024 Active 2024 58597 91772 0 Every 4 hours as needed By Mouth False Dulcolax (bisacodyl) 10 mg rectal suppository One Suppository per rectum PRN if Milk of Magnisia ineffective. Give on day 5 of no BM 1 sup 2024 Active 2024 35511 23272 1 Daily as needed Rectal False Fleet Enema 19 gram-7 gram/118 mL Administer per rectum PRN one time if dulcolax suppository not effective. Give on day 6 of no BM 1 2024 Active 2024 86530 46064 6 Daily as needed Rectal False Tylenol 325 mg tablet 2 tabs By Mouth Every 4 hours as needed For Fever >100 DO NOT EXCEED 3000 MG APAP/24 Hours 2 tabs 2024 Active 2024 58646 14498 0 Every 4 hours as needed By Mouth False
--- OUTSIDE RECORDS SUMMARY | 2024-07-19 23:11 | External Medical Summary | Continuity Of Care Document ---
Author Name Unknown Address [address] [address] Organization [facility] () Care Team Providers Care Head Grinder Name Role Phone DO Lopez Amy Primary Care Provider [phone] Allergies Allergy Reaction Start Date End Date [...] read results Day 3 0.1 mL 06/23 Active 2024 84314 49438 0 At bedtime Intrad ermal False Tubersol 5 tub. unit/0.1 mL intradermal injection solution [Tuberculin PPD] 0.1mL Intradermal Once daily For PPD 2nd Step Give 2nd Step PPD Day 1 and Read results Day 3 (schedule 7 days after 1st READ) 0.1mL 07/03 Active 2024 34924 87721 0 Once daily Intrad ermal False Tylenol 325 mg tablet 2 tabs By Mouth Every 4 hours as needed For Pain DO NOT EXCEED 3000 MG APAP/24 Hours 2 tabs 2024 Active 2024 81025 93605 0 Every 4 hours as needed By Mouth False Dulcolax (bisacodyl) 10 mg rectal suppository One Suppository per rectum PRN if Milk of Magnisia ineffective. Give on day 5 of no BM 1 sup 2024 Active 2024 45528 01062 1 Daily as needed Rectal False Fleet Enema 19 gram-7 gram/118 mL Administer per rectum PRN one time if dulcolax suppository not effective. Give on day 6 of no BM 1 2024 Active 2024 91530 00039 6 Daily as needed Rectal False Tylenol 325 mg tablet 2 tabs By Mouth Every 4 hours as needed For Fever >100 DO NOT EXCEED 3000 MG APAP/24 Hours 2 tabs 2024 Active 2024 64470 41667 0 Every 4 hours as needed By Mouth False Eliquis 5 mg tablet 5 mg By Mouth Twice daily For afib 5 mg 2024 Active 2024 21202 74554 1 Twice daily By Mouth False Ferrous sulfate 325 mg (65 mg iron) tablet [generic] 325 mg By Mouth Once daily For supplement 325 mg 2024 Active 2024 41618 25641 5 Once daily By Mouth False Magnesium oxide 400 mg (241.3 mg magnesium) tablet [generic] 400 mg By Mouth Once daily For supplement 400 mg 2024 Active 2024 09596 68819 2 Once daily By Mouth False Protonix 40 mg tablet,bozena yed release 40 mg By Mouth Once daily For GERD 40 mg 2024 Active 2024 06460 85404 1 Once daily By Mouth False Sotalol 120 mg tablet [generic] 120 mg By Mouth Twice daily For SVT 120 mg 2024 Active 2024 77547 89748 1 Twice daily By Mouth False Rosuvastati n 20 mg tablet [generic] 20 mg By Mouth Once daily For HLD 20 mg 2024 Active 2024 16699 16373 0 Once daily By Mouth False Arformotero l 15 mcg/2 mL solution for nebulizatio n [generic] 15 mcg Inhalation Twice daily For copd/asthma/ interstitial lung disease 15 mcg 06/20 Inactiv e 2024 38652 03387 0 Twice daily Inhala tion False Budesonide 0.5 mg/2 mL suspension for nebulizatio n [generic] 0.5 mg Inhalation Twice daily For copd/ asthma/ interstital lung disease 0.5 mg 2024 Active 2024 60790 01227 8 Twice daily Inhala tion False Furosemide 40 mg tablet [generic] 40 mg By Mouth Once daily For chronic diastolic CHF 40 mg 2024 Active 2024 44427 11484 0 Once daily By Mouth False Furosemide 40 mg tablet [generic] 40 mg By Mouth Once daily For chronic diastolic CHF 40 mg 2024 Active 2024 10299 73526 0 Once daily By Mouth False Ventolin HFA 90 mcg/actuati on aerosol inhaler 2 puff Inhalation Every 6 hours as needed For SOB/ wheeze 2 puff 2024 Active 2024 30333 32483 0 Every 6 hours as needed Inhala tion False Amitriptyli ne 25 mg tablet [generic] 25 mg By Mouth At bedtime For general anxiety disorder 25 mg 2024 Active 2024 65863 53632 1 At bedtime By Mouth False Levothyroxi ne 125 mcg tablet [generic] 125 mcg By Mouth Once daily For hypothyroidis m 125 mcg 2024 Active 2024 52940 17465 0 Once daily By Mouth False Arformotero l 15 mcg/2 mL solution for nebulizatio n [generic] 06/20 Inactiv e 2024 67849 35151 0 Arformotero l 15 mcg/2 mL solution for nebulizatio n [generic] 15 mcg Inhalation Twice daily For copd/asthma/ interstitial lung disease 15 mcg 2024 Active 2024 45239 05771 0 Twice daily Inhala tion False Clonazepam 0.5 mg tablet [generic] 0.5mg By Mouth As Needed q12 hour PRN For anxiety 0.5mg 2024 Active 2024 33269 27111 0 By Mouth False Betadine Swabsticks 10 % 1 scott Topical Twice daily to bilateral heels For stage 2 pressure injury 1 scott 2024 Active 2024 45458 55929 1 Twice daily Topica l False VITAL SIGNS Date Time Diastolic blood pressure Systolic blood pressure Body height Body weight Temperature SpO2 Blood Sugar Pulse Respirations 23270 102 75365 9 83.00 mm[Hg] - Lying Down 170.00 mm[Hg] - Lying Down 98.20 Forehead Scan 98.00 % 86.00/ min 18.00/min 02098 102 68460 4 83.00 mm[Hg] - Sitting 170.00 mm[Hg] - Sitting 98.20 Tympanic 86.00/ min 18.00/min 41463 103 56432 5 98.20 Tympanic 46598 103 96263 3 80.00 mm[Hg] - Lying Down 164.00 mm[Hg] - Lying Down 91.00/ min 20.00/min 66033 103 26938 0 80.00 mm[Hg] - Sitting 164.00 mm[Hg] - Sitting 98.20 Tympanic 91.00/ min 18.00/min 89917 103 25246 7 91.00 % 20.00/min 54602 103 98739 3 94.00 % 18.00/min 09568 103 71811 9 04821 104 92086 6 80.00 mm[Hg] - Sitting 140.00 mm[Hg] - Sitting 98.10 Tympanic 94.00 % 64.00/ min 18.00/min 02878 104 76053 1 80.00 mm[Hg] - Sitting 140.00 mm[Hg] - Sitting 98.10 Tympanic 64.00/ min 18.00/min 37243 104 37912 0 80.00 mm[Hg] - Sitting 140.00 mm[Hg] - Sitting 98.10 Tympanic 64.00/ min 18.00/min 60519 104 20791 7 73.00 mm[Hg] - Sitting 136.00 mm[Hg] - Sitting 97.90 Forehead Scan 95.00 % 74.00/ min 16.00/min 28919 104 69677 8 73.00 mm[Hg] - Sitting 135.00 mm[Hg] - Sitting 98.20 Tympanic 74.00/ min 18.00/min 81958 104 64406 6 95.00 % 18.00/min 72817 104 51440 6 96.00 % 18.00/min 28437 104 21870 4 94.00 % 18.00/min 58346 104 18963 0 18.00/mi n Immunizations Vaccine Date Status Other 06/20/2024 Completed
--- OUTSIDE RECORDS SUMMARY | 2024-07-19 23:11 | External Medical Summary | Continuity Of Care Document ---
Author Name Unknown Address [address] [address] Organization [facility] () Care Team Providers Care Yard Engineer Name Role Phone DO Lopez Amy Primary Care Provider [phone] Medications Medication Instructions Dosage Start Date End Date Status Order Date Drug Code Frequency Route of Admin Diagnosis Code Substitutions Allowed Tylenol 325 mg tablet 2 tabs By Mouth Every 4 hours as needed For Pain DO NOT EXCEED 3000 MG APAP/24 Hours 2 tabs 2024 Active 2024 26101 02416 0 Every 4 hours as needed By Mouth False Dulcolax (bisacodyl) 10 mg rectal suppository One Suppository per rectum PRN if Milk of Magnisia ineffective. Give on day 5 of no BM 1 sup 2024 Active 2024 09794 93766 1 Daily as needed Rectal False Fleet Enema 19 gram-7 gram/118 mL Administer per rectum PRN one time if dulcolax suppository not effective. Give on day 6 of no BM 1 2024 Active 2024 45861 98152 6 Daily as needed Rectal False
--- OUTSIDE RECORDS SUMMARY | 2024-07-19 23:11 | External Medical Summary | Continuity Of Care Document ---
Author Name Unknown Address [address] [address] Organization [facility] () Care Team Providers Care Child Watch Attendant Name Role Phone DO Lopez Amy Primary Care Provider [phone] Allergies Allergy Reaction Start Date End Date [...] Day 3 0.1 mL 06/23 Active 2024 10416 58235 0 At bedtime Intrad ermal False Tubersol 5 tub. unit/0.1 mL intradermal injection solution [Tuberculin PPD] 0.1mL Intradermal Once daily For PPD 2nd Step Give 2nd Step PPD Day 1 and Read results Day 3 (schedule 7 days after 1st READ) 0.1mL 07/03 Active 2024 13773 29859 0 Once daily Intrad ermal False Tylenol 325 mg tablet 2 tabs By Mouth Every 4 hours as needed For Pain DO NOT EXCEED 3000 MG APAP/24 Hours 2 tabs 2024 Active 2024 45330 01148 0 Every 4 hours as needed By Mouth False Dulcolax (bisacodyl) 10 mg rectal suppository One Suppository per rectum PRN if Milk of Magnisia ineffective. Give on day 5 of no BM 1 sup 2024 Active 2024 89879 33332 1 Daily as needed Rectal False Fleet Enema 19 gram-7 gram/118 mL Administer per rectum PRN one time if dulcolax suppository not effective. Give on day 6 of no BM 1 2024 Active 2024 91877 20759 6 Daily as needed Rectal False Tylenol 325 mg tablet 2 tabs By Mouth Every 4 hours as needed For Fever >100 DO NOT EXCEED 3000 MG APAP/24 Hours 2 tabs 2024 Active 2024 20164 25875 0 Every 4 hours as needed By Mouth False Eliquis 5 mg tablet 5 mg By Mouth Twice daily For afib 5 mg 2024 Active 2024 12438 54739 1 Twice daily By Mouth False Ferrous sulfate 325 mg (65 mg iron) tablet [generic] 325 mg By Mouth Once daily For supplement 325 mg 2024 Active 2024 86774 56453 5 Once daily By Mouth False Magnesium oxide 400 mg (241.3 mg magnesium) tablet [generic] 400 mg By Mouth Once daily For supplement 400 mg 2024 Active 2024 20351 51768 2 Once daily By Mouth False Protonix 40 mg tablet,bozena yed release 40 mg By Mouth Once daily For GERD 40 mg 2024 Active 2024 41421 95485 1 Once daily By Mouth False Sotalol 120 mg tablet [generic] 120 mg By Mouth Twice daily For SVT 120 mg 2024 Active 2024 52197 30086 1 Twice daily By Mouth False Rosuvastati n 20 mg tablet [generic] 20 mg By Mouth Once daily For HLD 20 mg 2024 Active 2024 20108 10904 0 Once daily By Mouth False Arformotero l 15 mcg/2 mL solution for nebulizatio n [generic] 15 mcg Inhalation Twice daily For copd/asthma/ interstitial lung disease 15 mcg 06/20 Inactiv e 2024 60225 38696 0 Twice daily Inhala tion False Budesonide 0.5 mg/2 mL suspension for nebulizatio n [generic] 0.5 mg Inhalation Twice daily For copd/ asthma/ interstital lung disease 0.5 mg 2024 Active 2024 18512 21541 8 Twice daily Inhala tion False Furosemide 40 mg tablet [generic] 40 mg By Mouth Once daily For chronic diastolic CHF 40 mg 2024 Active 2024 78429 20679 0 Once daily By Mouth False Furosemide 40 mg tablet [generic] 40 mg By Mouth Once daily For chronic diastolic CHF 40 mg 2024 Active 2024 15258 98617 0 Once daily By Mouth False Ventolin HFA 90 mcg/actuati on aerosol inhaler 2 puff Inhalation Every 6 hours as needed For SOB/ wheeze 2 puff 2024 Active 2024 62997 05230 0 Every 6 hours as needed Inhala tion False Amitriptyli ne 25 mg tablet [generic] 25 mg By Mouth At bedtime For general anxiety disorder 25 mg 2024 Active 2024 70453 68144 1 At bedtime By Mouth False Levothyroxi ne 125 mcg tablet [generic] 125 mcg By Mouth Once daily For hypothyroidis m 125 mcg 2024 Active 2024 38187 52156 0 Once daily By Mouth False Arformotero l 15 mcg/2 mL solution for nebulizatio n [generic] 06/20 Inactiv e 2024 07571 42787 0 Arformotero l 15 mcg/2 mL solution for nebulizatio n [generic] 15 mcg Inhalation Twice daily For copd/asthma/ interstitial lung disease 15 mcg 2024 Active 2024 54770 70506 0 Twice daily Inhala tion False Betadine Swabsticks 10 % 1 scott Topical Twice daily to bilateral heels For stage 2 pressure injury 1 scott 2024 Active 2024 52067 23433 1 Twice daily Topica l False VITAL SIGNS Date Time Diastolic blood pressure Systolic blood pressure Body height Body weight Temperature SpO2 Blood Sugar Pulse Respirations 56370 102 44747 9 83.00 mm[Hg] - Lying Down 170.00 mm[Hg] - Lying Down 98.20 Forehead Scan 98.00 % 86.00/ min 18.00/min 70693 102 65118 4 83.00 mm[Hg] - Sitting 170.00 mm[Hg] - Sitting 98.20 Tympanic 86.00/ min 18.00/min 89757 103 81344 5 98.20 Tympanic 41090 103 53968 3 80.00 mm[Hg] - Lying Down 164.00 mm[Hg] - Lying Down 91.00/ min 20.00/min 21103 103 02085 7 91.00 % 20.00/min Immunizations Vaccine Date Status Other 06/20/2024 Completed
--- OUTSIDE RECORDS SUMMARY | 2024-07-19 23:11 | External Medical Summary | Continuity Of Care Document ---
Author Name Unknown Address [address] [address] Organization [facility] () Care Team Providers Care Welcome Desk Agent Name Role Phone DO Lopez Amy Primary Care Provider [phone] Allergies Allergy Reaction Start Date End Date [...] Day 3 0.1 mL 06/23 Active 2024 91787 38602 0 At bedtime Intrad ermal False Tubersol 5 tub. unit/0.1 mL intradermal injection solution [Tuberculin PPD] 0.1mL Intradermal Once daily For PPD 2nd Step Give 2nd Step PPD Day 1 and Read results Day 3 (schedule 7 days after 1st READ) 0.1mL 07/03 Active 2024 20702 97079 0 Once daily Intrad ermal False Tylenol 325 mg tablet 2 tabs By Mouth Every 4 hours as needed For Pain DO NOT EXCEED 3000 MG APAP/24 Hours 2 tabs 2024 Active 2024 89256 08229 0 Every 4 hours as needed By Mouth False Dulcolax (bisacodyl) 10 mg rectal suppository One Suppository per rectum PRN if Milk of Magnisia ineffective. Give on day 5 of no BM 1 sup 2024 Active 2024 07295 14937 1 Daily as needed Rectal False Fleet Enema 19 gram-7 gram/118 mL Administer per rectum PRN one time if dulcolax suppository not effective. Give on day 6 of no BM 1 2024 Active 2024 08698 86528 6 Daily as needed Rectal False Tylenol 325 mg tablet 2 tabs By Mouth Every 4 hours as needed For Fever >100 DO NOT EXCEED 3000 MG APAP/24 Hours 2 tabs 2024 Active 2024 08061 49399 0 Every 4 hours as needed By Mouth False Eliquis 5 mg tablet 5 mg By Mouth Twice daily For afib 5 mg 2024 Active 2024 79612 99190 1 Twice daily By Mouth False Ferrous sulfate 325 mg (65 mg iron) tablet [generic] 325 mg By Mouth Once daily For supplement 325 mg 2024 Active 2024 49804 49431 5 Once daily By Mouth False Magnesium oxide 400 mg (241.3 mg magnesium) tablet [generic] 400 mg By Mouth Once daily For supplement 400 mg 2024 Active 2024 15647 59115 2 Once daily By Mouth False Protonix 40 mg tablet,bozena yed release 40 mg By Mouth Once daily For GERD 40 mg 2024 Active 2024 02974 59540 1 Once daily By Mouth False Sotalol 120 mg tablet [generic] 120 mg By Mouth Twice daily For SVT 120 mg 2024 Active 2024 62618 22199 1 Twice daily By Mouth False Rosuvastati n 20 mg tablet [generic] 20 mg By Mouth Once daily For HLD 20 mg 2024 Active 2024 07191 03197 0 Once daily By Mouth False Arformotero l 15 mcg/2 mL solution for nebulizatio n [generic] 15 mcg Inhalation Twice daily For copd/asthma/ interstitial lung disease 15 mcg 06/20 Inactiv e 2024 05879 86785 0 Twice daily Inhala tion False Budesonide 0.5 mg/2 mL suspension for nebulizatio n [generic] 0.5 mg Inhalation Twice daily For copd/ asthma/ interstital lung disease 0.5 mg 2024 Active 2024 41351 33192 8 Twice daily Inhala tion False Furosemide 40 mg tablet [generic] 40 mg By Mouth Once daily For chronic diastolic CHF 40 mg 2024 Active 2024 19489 75132 0 Once daily By Mouth False Furosemide 40 mg tablet [generic] 40 mg By Mouth Once daily For chronic diastolic CHF 40 mg 2024 Active 2024 65358 31112 0 Once daily By Mouth False Ventolin HFA 90 mcg/actuati on aerosol inhaler 2 puff Inhalation Every 6 hours as needed For SOB/ wheeze 2 puff 2024 Active 2024 45398 67322 0 Every 6 hours as needed Inhala tion False Amitriptyli ne 25 mg tablet [generic] 25 mg By Mouth At bedtime For general anxiety disorder 25 mg 2024 Active 2024 31312 32430 1 At bedtime By Mouth False Levothyroxi ne 125 mcg tablet [generic] 125 mcg By Mouth Once daily For hypothyroidis m 125 mcg 2024 Active 2024 79295 22811 0 Once daily By Mouth False Arformotero l 15 mcg/2 mL solution for nebulizatio n [generic] 06/20 Inactiv e 2024 69079 72198 0 Arformotero l 15 mcg/2 mL solution for nebulizatio n [generic] 15 mcg Inhalation Twice daily For copd/asthma/ interstitial lung disease 15 mcg 2024 Active 2024 98774 36216 0 Twice daily Inhala tion False Betadine Swabsticks 10 % 1 scott Topical Twice daily to bilateral heels For stage 2 pressure injury 1 scott 2024 Active 2024 06324 90801 1 Twice daily Topica l False VITAL SIGNS Date Time Diastolic blood pressure Systolic blood pressure Body height Body weight Temperature SpO2 Blood Sugar Pulse Respirations 68580 102 19674 9 83.00 mm[Hg] - Lying Down 170.00 mm[Hg] - Lying Down 98.20 Forehead Scan 98.00 % 86.00/ min 18.00/min 41797 102 76554 4 83.00 mm[Hg] - Sitting 170.00 mm[Hg] - Sitting 98.20 Tympanic 86.00/ min 18.00/min 10431 103 52967 5 98.20 Tympanic 61537 103 24306 3 80.00 mm[Hg] - Lying Down 164.00 mm[Hg] - Lying Down 91.00/ min 20.00/min 23244 103 84456 7 91.00 % 20.00/min 72940 103 76120 3 94.00 % 18.00/min 46990 103 56952 9 Immunizations Vaccine Date Status Other 06/20/2024 Completed
--- OUTSIDE RECORDS SUMMARY | 2024-07-19 23:11 | External Medical Summary | Continuity Of Care Document ---
Author Name Unknown Address [address] [address] Organization [facility] () Care Team Providers Care Account Collector Name Role Phone DO Lopez Amy Primary Care Provider [phone] Allergies Allergy Reaction Start Date End Date [...] Day 3 0.1 mL 06/23 Active 2024 95438 35486 0 At bedtime Intrad ermal False Tubersol 5 tub. unit/0.1 mL intradermal injection solution [Tuberculin PPD] 0.1mL Intradermal Once daily For PPD 2nd Step Give 2nd Step PPD Day 1 and Read results Day 3 (schedule 7 days after 1st READ) 0.1mL 07/03 Active 2024 68525 59962 0 Once daily Intrad ermal False Tylenol 325 mg tablet 2 tabs By Mouth Every 4 hours as needed For Pain DO NOT EXCEED 3000 MG APAP/24 Hours 2 tabs 2024 Active 2024 45915 53087 0 Every 4 hours as needed By Mouth False Dulcolax (bisacodyl) 10 mg rectal suppository One Suppository per rectum PRN if Milk of Magnisia ineffective. Give on day 5 of no BM 1 sup 2024 Active 2024 42205 56094 1 Daily as needed Rectal False Fleet Enema 19 gram-7 gram/118 mL Administer per rectum PRN one time if dulcolax suppository not effective. Give on day 6 of no BM 1 2024 Active 2024 96909 21022 6 Daily as needed Rectal False Tylenol 325 mg tablet 2 tabs By Mouth Every 4 hours as needed For Fever >100 DO NOT EXCEED 3000 MG APAP/24 Hours 2 tabs 2024 Active 2024 39172 48677 0 Every 4 hours as needed By Mouth False Eliquis 5 mg tablet 5 mg By Mouth Twice daily For afib 5 mg 2024 Active 2024 32704 34905 1 Twice daily By Mouth False Ferrous sulfate 325 mg (65 mg iron) tablet [generic] 325 mg By Mouth Once daily For supplement 325 mg 2024 Active 2024 55729 77546 5 Once daily By Mouth False Magnesium oxide 400 mg (241.3 mg magnesium) tablet [generic] 400 mg By Mouth Once daily For supplement 400 mg 2024 Active 2024 03974 87927 2 Once daily By Mouth False Protonix 40 mg tablet,bozena yed release 40 mg By Mouth Once daily For GERD 40 mg 2024 Active 2024 72522 90185 1 Once daily By Mouth False Sotalol 120 mg tablet [generic] 120 mg By Mouth Twice daily For SVT 120 mg 2024 Active 2024 98162 06502 1 Twice daily By Mouth False Rosuvastati n 20 mg tablet [generic] 20 mg By Mouth Once daily For HLD 20 mg 2024 Active 2024 76488 91723 0 Once daily By Mouth False Arformotero l 15 mcg/2 mL solution for nebulizatio n [generic] 15 mcg Inhalation Twice daily For copd/asthma/ interstitial lung disease 15 mcg 06/20 Inactiv e 2024 45839 36145 0 Twice daily Inhala tion False Budesonide 0.5 mg/2 mL suspension for nebulizatio n [generic] 0.5 mg Inhalation Twice daily For copd/ asthma/ interstital lung disease 0.5 mg 2024 Active 2024 17467 29970 8 Twice daily Inhala tion False Furosemide 40 mg tablet [generic] 40 mg By Mouth Once daily For chronic diastolic CHF 40 mg 2024 Active 2024 10134 81717 0 Once daily By Mouth False Furosemide 40 mg tablet [generic] 40 mg By Mouth Once daily For chronic diastolic CHF 40 mg 2024 Active 2024 57618 00972 0 Once daily By Mouth False Ventolin HFA 90 mcg/actuati on aerosol inhaler 2 puff Inhalation Every 6 hours as needed For SOB/ wheeze 2 puff 2024 Active 2024 43794 63726 0 Every 6 hours as needed Inhala tion False Amitriptyli ne 25 mg tablet [generic] 25 mg By Mouth At bedtime For general anxiety disorder 25 mg 2024 Active 2024 26881 87414 1 At bedtime By Mouth False Levothyroxi ne 125 mcg tablet [generic] 125 mcg By Mouth Once daily For hypothyroidis m 125 mcg 2024 Active 2024 07742 81691 0 Once daily By Mouth False Arformotero l 15 mcg/2 mL solution for nebulizatio n [generic] 06/20 Inactiv e 2024 99847 00179 0 Arformotero l 15 mcg/2 mL solution for nebulizatio n [generic] 15 mcg Inhalation Twice daily For copd/asthma/ interstitial lung disease 15 mcg 2024 Active 2024 29092 36091 0 Twice daily Inhala tion False Betadine Swabsticks 10 % 1 scott Topical Twice daily to bilateral heels For stage 2 pressure injury 1 scott 2024 Active 2024 44819 51976 1 Twice daily Topica l False VITAL SIGNS Date Time Diastolic blood pressure Systolic blood pressure Body height Body weight Temperature SpO2 Blood Sugar Pulse Respirations 64077 102 80646 9 83.00 mm[Hg] - Lying Down 170.00 mm[Hg] - Lying Down 98.20 Forehead Scan 98.00 % 86.00/ min 18.00/min 68296 102 28122 4 83.00 mm[Hg] - Sitting 170.00 mm[Hg] - Sitting 98.20 Tympanic 86.00/ min 18.00/min 55763 103 45968 5 98.20 Tympanic 29576 103 42094 3 80.00 mm[Hg] - Lying Down 164.00 mm[Hg] - Lying Down 91.00/ min 20.00/min Immunizations Vaccine Date Status Other 06/20/2024 Completed
--- OUTSIDE RECORDS SUMMARY | 2024-07-19 23:11 | External Medical Summary | Continuity Of Care Document ---
Author Name Unknown Address [address] [address] Organization [facility] () Care Team Providers Care Electrolog Operator Name Role Phone DO Lopez Amy Primary Care Provider [phone] Allergies Allergy Reaction Start Date End Date [...] Day 3 0.1 mL 06/23 Active 2024 75519 02811 0 At bedtime Intrad ermal False Tubersol 5 tub. unit/0.1 mL intradermal injection solution [Tuberculin PPD] 0.1mL Intradermal Once daily For PPD 2nd Step Give 2nd Step PPD Day 1 and Read results Day 3 (schedule 7 days after 1st READ) 0.1mL 07/03 Active 2024 53607 69279 0 Once daily Intrad ermal False Tylenol 325 mg tablet 2 tabs By Mouth Every 4 hours as needed For Pain DO NOT EXCEED 3000 MG APAP/24 Hours 2 tabs 2024 Active 2024 20117 54922 0 Every 4 hours as needed By Mouth False Dulcolax (bisacodyl) 10 mg rectal suppository One Suppository per rectum PRN if Milk of Magnisia ineffective. Give on day 5 of no BM 1 sup 2024 Active 2024 14729 36737 1 Daily as needed Rectal False Fleet Enema 19 gram-7 gram/118 mL Administer per rectum PRN one time if dulcolax suppository not effective. Give on day 6 of no BM 1 2024 Active 2024 85458 32481 6 Daily as needed Rectal False Tylenol 325 mg tablet 2 tabs By Mouth Every 4 hours as needed For Fever >100 DO NOT EXCEED 3000 MG APAP/24 Hours 2 tabs 2024 Active 2024 09416 28907 0 Every 4 hours as needed By Mouth False Eliquis 5 mg tablet 5 mg By Mouth Twice daily For afib 5 mg 2024 Active 2024 53055 16758 1 Twice daily By Mouth False Ferrous sulfate 325 mg (65 mg iron) tablet [generic] 325 mg By Mouth Once daily For supplement 325 mg 2024 Active 2024 22380 03526 5 Once daily By Mouth False Magnesium oxide 400 mg (241.3 mg magnesium) tablet [generic] 400 mg By Mouth Once daily For supplement 400 mg 2024 Active 2024 88639 62190 2 Once daily By Mouth False Protonix 40 mg tablet,bozena yed release 40 mg By Mouth Once daily For GERD 40 mg 2024 Active 2024 18715 08701 1 Once daily By Mouth False Sotalol 120 mg tablet [generic] 120 mg By Mouth Twice daily For SVT 120 mg 2024 Active 2024 70916 04936 1 Twice daily By Mouth False Rosuvastati n 20 mg tablet [generic] 20 mg By Mouth Once daily For HLD 20 mg 2024 Active 2024 98359 28760 0 Once daily By Mouth False Arformotero l 15 mcg/2 mL solution for nebulizatio n [generic] 15 mcg Inhalation Twice daily For copd/asthma/ interstitial lung disease 15 mcg 06/20 Inactiv e 2024 21267 89035 0 Twice daily Inhala tion False Budesonide 0.5 mg/2 mL suspension for nebulizatio n [generic] 0.5 mg Inhalation Twice daily For copd/ asthma/ interstital lung disease 0.5 mg 2024 Active 2024 56045 13448 8 Twice daily Inhala tion False Furosemide 40 mg tablet [generic] 40 mg By Mouth Once daily For chronic diastolic CHF 40 mg 2024 Active 2024 10749 34275 0 Once daily By Mouth False Furosemide 40 mg tablet [generic] 40 mg By Mouth Once daily For chronic diastolic CHF 40 mg 2024 Active 2024 72951 43774 0 Once daily By Mouth False Ventolin HFA 90 mcg/actuati on aerosol inhaler 2 puff Inhalation Every 6 hours as needed For SOB/ wheeze 2 puff 2024 Active 2024 92770 37950 0 Every 6 hours as needed Inhala tion False Amitriptyli ne 25 mg tablet [generic] 25 mg By Mouth At bedtime For general anxiety disorder 25 mg 2024 Active 2024 54430 81312 1 At bedtime By Mouth False Levothyroxi ne 125 mcg tablet [generic] 125 mcg By Mouth Once daily For hypothyroidis m 125 mcg 2024 Active 2024 61301 04898 0 Once daily By Mouth False Arformotero l 15 mcg/2 mL solution for nebulizatio n [generic] 06/20 Inactiv e 2024 95464 74500 0 Arformotero l 15 mcg/2 mL solution for nebulizatio n [generic] 15 mcg Inhalation Twice daily For copd/asthma/ interstitial lung disease 15 mcg 2024 00 /0000 Active 2024 11596 58232 0 Twice daily Inhala tion False
--- OUTSIDE RECORDS SUMMARY | 2024-07-19 23:11 | External Medical Summary | Continuity Of Care Document ---
Author Name Unknown Address [address] [address] Organization [facility] () Care Team Providers Care Blend Technician Name Role Phone DO Lopez Amy Primary Care Provider [phone] Allergies Allergy Reaction Start Date End Date [...] Day 3 0.1 mL 06/23 Active 2024 33355 93820 0 At bedtime Intrad ermal False Tubersol 5 tub. unit/0.1 mL intradermal injection solution [Tuberculin PPD] 0.1mL Intradermal Once daily For PPD 2nd Step Give 2nd Step PPD Day 1 and Read results Day 3 (schedule 7 days after 1st READ) 0.1mL 07/03 Active 2024 36228 62573 0 Once daily Intrad ermal False Tylenol 325 mg tablet 2 tabs By Mouth Every 4 hours as needed For Pain DO NOT EXCEED 3000 MG APAP/24 Hours 2 tabs 2024 Active 2024 58638 32467 0 Every 4 hours as needed By Mouth False Dulcolax (bisacodyl) 10 mg rectal suppository One Suppository per rectum PRN if Milk of Magnisia ineffective. Give on day 5 of no BM 1 sup 2024 Active 2024 92643 73256 1 Daily as needed Rectal False Fleet Enema 19 gram-7 gram/118 mL Administer per rectum PRN one time if dulcolax suppository not effective. Give on day 6 of no BM 1 2024 Active 2024 90768 18708 6 Daily as needed Rectal False Tylenol 325 mg tablet 2 tabs By Mouth Every 4 hours as needed For Fever >100 DO NOT EXCEED 3000 MG APAP/24 Hours 2 tabs 2024 Active 2024 35392 56493 0 Every 4 hours as needed By Mouth False Eliquis 5 mg tablet 5 mg By Mouth Twice daily For afib 5 mg 2024 Active 2024 00602 93525 1 Twice daily By Mouth False Ferrous sulfate 325 mg (65 mg iron) tablet [generic] 325 mg By Mouth Once daily For supplement 325 mg 2024 Active 2024 92631 15575 5 Once daily By Mouth False Magnesium oxide 400 mg (241.3 mg magnesium) tablet [generic] 400 mg By Mouth Once daily For supplement 400 mg 2024 Active 2024 53280 16015 2 Once daily By Mouth False Protonix 40 mg tablet,bozena yed release 40 mg By Mouth Once daily For GERD 40 mg 2024 Active 2024 22824 29454 1 Once daily By Mouth False Sotalol 120 mg tablet [generic] 120 mg By Mouth Twice daily For SVT 120 mg 2024 Active 2024 01439 20839 1 Twice daily By Mouth False Rosuvastati n 20 mg tablet [generic] 20 mg By Mouth Once daily For HLD 20 mg 2024 Active 2024 78823 38294 0 Once daily By Mouth False Arformotero l 15 mcg/2 mL solution for nebulizatio n [generic] 15 mcg Inhalation Twice daily For copd/asthma/ interstitial lung disease 15 mcg 06/20 Inactiv e 2024 71592 76893 0 Twice daily Inhala tion False Budesonide 0.5 mg/2 mL suspension for nebulizatio n [generic] 0.5 mg Inhalation Twice daily For copd/ asthma/ interstital lung disease 0.5 mg 2024 Active 2024 58774 09533 8 Twice daily Inhala tion False Furosemide 40 mg tablet [generic] 40 mg By Mouth Once daily For chronic diastolic CHF 40 mg 2024 Active 2024 87534 14289 0 Once daily By Mouth False Furosemide 40 mg tablet [generic] 40 mg By Mouth Once daily For chronic diastolic CHF 40 mg 2024 Active 2024 12541 39332 0 Once daily By Mouth False Ventolin HFA 90 mcg/actuati on aerosol inhaler 2 puff Inhalation Every 6 hours as needed For SOB/ wheeze 2 puff 2024 Active 2024 02311 55055 0 Every 6 hours as needed Inhala tion False Amitriptyli ne 25 mg tablet [generic] 25 mg By Mouth At bedtime For general anxiety disorder 25 mg 2024 Active 2024 06578 81345 1 At bedtime By Mouth False Levothyroxi ne 125 mcg tablet [generic] 125 mcg By Mouth Once daily For hypothyroidis m 125 mcg 2024 Active 2024 53486 76535 0 Once daily By Mouth False Arformotero l 15 mcg/2 mL solution for nebulizatio n [generic] 06/20 Inactiv e 2024 81217 80004 0 Arformotero l 15 mcg/2 mL solution for nebulizatio n [generic] 15 mcg Inhalation Twice daily For copd/asthma/ interstitial lung disease 15 mcg 2024 00 /0000 Active 2024 74849 77785 0 Twice daily Inhala tion False
--- OUTSIDE RECORDS SUMMARY | 2024-07-19 23:11 | External Medical Summary | Continuity Of Care Document ---
Author Name Unknown Address [address] [facility] () Care Team Providers Care Fuel Cell Repairer Name Role Phone DO Lopez Amy Primary Care Provider [phone] Allergies Allergy Reaction Start Date End Date [...] Day 3 0.1 mL 06/23 Active 2024 66123 51551 0 At bedtime Intrad ermal False Tubersol 5 tub. unit/0.1 mL intradermal injection solution [Tuberculin PPD] 0.1mL Intradermal Once daily For PPD 2nd Step Give 2nd Step PPD Day 1 and Read results Day 3 (schedule 7 days after 1st READ) 0.1mL 07/03 Active 2024 51409 54115 0 Once daily Intrad ermal False Tylenol 325 mg tablet 2 tabs By Mouth Every 4 hours as needed For Pain DO NOT EXCEED 3000 MG APAP/24 Hours 2 tabs 2024 Active 2024 44520 92363 0 Every 4 hours as needed By Mouth False Dulcolax (bisacodyl) 10 mg rectal suppository One Suppository per rectum PRN if Milk of Magnisia ineffective. Give on day 5 of no BM 1 sup 2024 Active 2024 72666 07029 1 Daily as needed Rectal False Fleet Enema 19 gram-7 gram/118 mL Administer per rectum PRN one time if dulcolax suppository not effective. Give on day 6 of no BM 1 2024 Active 2024 78679 63627 6 Daily as needed Rectal False Tylenol 325 mg tablet 2 tabs By Mouth Every 4 hours as needed For Fever >100 DO NOT EXCEED 3000 MG APAP/24 Hours 2 tabs 2024 Active 2024 95921 95529 0 Every 4 hours as needed By Mouth False Eliquis 5 mg tablet 5 mg By Mouth Twice daily For afib 5 mg 2024 Active 2024 10400 50864 1 Twice daily By Mouth False Ferrous sulfate 325 mg (65 mg iron) tablet [generic] 325 mg By Mouth Once daily For supplement 325 mg 2024 Active 2024 13697 38747 5 Once daily By Mouth False Magnesium oxide 400 mg (241.3 mg magnesium) tablet [generic] 400 mg By Mouth Once daily For supplement 400 mg 2024 Active 2024 64257 07982 2 Once daily By Mouth False Protonix 40 mg tablet,bozena yed release 40 mg By Mouth Once daily For GERD 40 mg 2024 Active 2024 42390 32447 1 Once daily By Mouth False Sotalol 120 mg tablet [generic] 120 mg By Mouth Twice daily For SVT 120 mg 2024 Active 2024 04230 28593 1 Twice daily By Mouth False Rosuvastati n 20 mg tablet [generic] 20 mg By Mouth Once daily For HLD 20 mg 2024 Active 2024 27482 95045 0 Once daily By Mouth False Arformotero l 15 mcg/2 mL solution for nebulizatio n [generic] 15 mcg Inhalation Twice daily For copd/asthma/ interstitial lung disease 15 mcg 06/20 Inactiv e 2024 95269 78614 0 Twice daily Inhala tion False Budesonide 0.5 mg/2 mL suspension for nebulizatio n [generic] 0.5 mg Inhalation Twice daily For copd/ asthma/ interstital lung disease 0.5 mg 2024 Active 2024 55428 28274 8 Twice daily Inhala tion False Furosemide 40 mg tablet [generic] 40 mg By Mouth Once daily For chronic diastolic CHF 40 mg 2024 Active 2024 38332 08738 0 Once daily By Mouth False Furosemide 40 mg tablet [generic] 40 mg By Mouth Once daily For chronic diastolic CHF 40 mg 2024 Active 2024 40148 53558 0 Once daily By Mouth False Ventolin HFA 90 mcg/actuati on aerosol inhaler 2 puff Inhalation Every 6 hours as needed For SOB/ wheeze 2 puff 2024 Active 2024 70134 96923 0 Every 6 hours as needed Inhala tion False Amitriptyli ne 25 mg tablet [generic] 25 mg By Mouth At bedtime For general anxiety disorder 25 mg 2024 Active 2024 55552 39631 1 At bedtime By Mouth False Levothyroxi ne 125 mcg tablet [generic] 125 mcg By Mouth Once daily For hypothyroidis m 125 mcg 2024 Active 2024 82733 52584 0 Once daily By Mouth False Arformotero l 15 mcg/2 mL solution for nebulizatio n [generic] 06/20 Inactiv e 2024 49363 71381 0 Arformotero l 15 mcg/2 mL solution for nebulizatio n [generic] 15 mcg Inhalation Twice daily For copd/asthma/ interstitial lung disease 15 mcg 2024 Active 2024 78903 57771 0 Twice daily Inhala tion False Clonazepam 0.5 mg tablet [generic] 0.5mg By Mouth As Needed q12 hour PRN For anxiety 0.5mg 2024 Active 2024 38600 19580 0 By Mouth False Betadine Swabsticks 10 % 1 scott Topical Twice daily to bilateral heels For stage 2 pressure injury 1 scott 2024 Active 2024 34989 85610 1 Twice daily Topica l False VITAL SIGNS Date Time Diastolic blood pressure Systolic blood pressure Body height Body weight Temperature SpO2 Blood Sugar Pulse Respirations 21888 102 25218 9 83.00 mm[Hg] - Lying Down 170.00 mm[Hg] - Lying Down 98.20 Forehead Scan 98.00 % 86.00/ min 18.00/min 01752 102 15831 4 83.00 mm[Hg] - Sitting 170.00 mm[Hg] - Sitting 98.20 Tympanic 86.00/ min 18.00/min 35476 103 80169 5 98.20 Tympanic 99678 103 10835 3 80.00 mm[Hg] - Lying Down 164.00 mm[Hg] - Lying Down 91.00/ min 20.00/min 11105 103 24240 0 80.00 mm[Hg] - Sitting 164.00 mm[Hg] - Sitting 98.20 Tympanic 91.00/ min 18.00/min 33400 103 69755 7 91.00 % 20.00/min 37429 103 46293 3 94.00 % 18.00/min 23049 103 79504 9 66536 104 41580 6 80.00 mm[Hg] - Sitting 140.00 mm[Hg] - Sitting 98.10 Tympanic 94.00 % 64.00/ min 18.00/min 03659 104 39865 1 80.00 mm[Hg] - Sitting 140.00 mm[Hg] - Sitting 98.10 Tympanic 64.00/ min 18.00/min 08055 104 94972 6 95.00 % 18.00/min 11825 104 49693 6 96.00 % 18.00/min Immunizations Vaccine Date Status Other 06/20/2024 Completed
--- OUTSIDE RECORDS SUMMARY | 2024-07-19 23:11 | External Medical Summary | Continuity Of Care Document ---
Author Name Unknown Address [address] [address] Organization [facility] () Care Team Providers Care Senior Interior Designer Name Role Phone DO Lopez Amy Primary Care Provider [phone] Medications Medication Instructions Dosage Start Date End Date Status Order Date Drug Code Frequency Route of Admin Diagnosis Code Substitutions Allowed Tylenol 325 mg tablet 2 tabs By Mouth Every 4 hours as needed For Pain DO NOT EXCEED 3000 MG APAP/24 Hours 2 tabs 2024 Active 2024 68723 16112 0 Every 4 hours as needed By Mouth False Dulcolax (bisacodyl) 10 mg rectal suppository One Suppository per rectum PRN if Milk of Magnisia ineffective. Give on day 5 of no BM 1 sup 2024 Active 2024 77191 39548 1 Daily as needed Rectal False Fleet Enema 19 gram-7 gram/118 mL Administer per rectum PRN one time if dulcolax suppository not effective. Give on day 6 of no BM 1 2024 Active 2024 43349 04018 6 Daily as needed Rectal False
--- OUTSIDE RECORDS SUMMARY | 2024-07-19 23:11 | External Medical Summary | Continuity Of Care Document ---
Author Name Unknown Address [address] [address] Organization [facility] () Care Team Providers Care Home Inspector Name Role Phone DO Lopez Amy Primary Care Provider [phone] Allergies Allergy Reaction Start Date End Date [...] 3 0.1 mL 06/23 Inactiv e 2024 06448 44146 0 At bedtime Intrad ermal False Tubersol 5 tub. unit/0.1 mL intradermal injection solution [Tuberculin PPD] 0.1mL Intradermal Once daily For PPD 2nd Step Give 2nd Step PPD Day 1 and Read results Day 3 (schedule 7 days after 1st READ) 0.1mL 07/03 Active 2024 56438 71335 0 Once daily Intrad ermal False Tylenol 325 mg tablet 2 tabs By Mouth Every 4 hours as needed For Pain DO NOT EXCEED 3000 MG APAP/24 Hours 2 tabs 2024 Active 2024 96797 53214 0 Every 4 hours as needed By Mouth False Dulcolax (bisacodyl) 10 mg rectal suppository One Suppository per rectum PRN if Milk of Magnisia ineffective. Give on day 5 of no BM 1 sup 2024 Active 2024 21333 32854 1 Daily as needed Rectal False Fleet Enema 19 gram-7 gram/118 mL Administer per rectum PRN one time if dulcolax suppository not effective. Give on day 6 of no BM 1 2024 Active 2024 84271 56910 6 Daily as needed Rectal False Tylenol 325 mg tablet 2 tabs By Mouth Every 4 hours as needed For Fever >100 DO NOT EXCEED 3000 MG APAP/24 Hours 2 tabs 2024 Active 2024 30699 72149 0 Every 4 hours as needed By Mouth False Eliquis 5 mg tablet 5 mg By Mouth Twice daily For afib 5 mg 2024 Active 2024 22694 05207 1 Twice daily By Mouth False Ferrous sulfate 325 mg (65 mg iron) tablet [generic] 325 mg By Mouth Once daily For supplement 325 mg 2024 Active 2024 43384 50844 5 Once daily By Mouth False Magnesium oxide 400 mg (241.3 mg magnesium) tablet [generic] 400 mg By Mouth Once daily For supplement 400 mg 2024 Active 2024 93121 63284 2 Once daily By Mouth False Protonix 40 mg tablet,bozena yed release 40 mg By Mouth Once daily For GERD 40 mg 2024 Active 2024 38758 65909 1 Once daily By Mouth False Sotalol 120 mg tablet [generic] 120 mg By Mouth Twice daily For SVT 120 mg 2024 Active 2024 34900 32485 1 Twice daily By Mouth False Rosuvastati n 20 mg tablet [generic] 20 mg By Mouth Once daily For HLD 20 mg 2024 Active 2024 08936 53426 0 Once daily By Mouth False Arformotero l 15 mcg/2 mL solution for nebulizatio n [generic] 15 mcg Inhalation Twice daily For copd/asthma/ interstitial lung disease 15 mcg 06/20 Inactiv e 2024 24211 58447 0 Twice daily Inhala tion False Budesonide 0.5 mg/2 mL suspension for nebulizatio n [generic] 0.5 mg Inhalation Twice daily For copd/ asthma/ interstital lung disease 0.5 mg 2024 Active 2024 11386 61280 8 Twice daily Inhala tion False Furosemide 40 mg tablet [generic] 40 mg By Mouth Once daily For chronic diastolic CHF 40 mg 2024 Active 2024 29057 26460 0 Once daily By Mouth False Furosemide 40 mg tablet [generic] 40 mg By Mouth Once daily For chronic diastolic CHF 40 mg 2024 Active 2024 87601 76980 0 Once daily By Mouth False Ventolin HFA 90 mcg/actuati on aerosol inhaler 2 puff Inhalation Every 6 hours as needed For SOB/ wheeze 2 puff 2024 Active 2024 67958 06582 0 Every 6 hours as needed Inhala tion False Amitriptyli ne 25 mg tablet [generic] 25 mg By Mouth At bedtime For general anxiety disorder 25 mg 2024 Active 2024 92221 66229 1 At bedtime By Mouth False Levothyroxi ne 125 mcg tablet [generic] 125 mcg By Mouth Once daily For hypothyroidis m 125 mcg 2024 Active 2024 41547 81714 0 Once daily By Mouth False Arformotero l 15 mcg/2 mL solution for nebulizatio n [generic] 06/20 Inactiv e 2024 09742 96905 0 Arformotero l 15 mcg/2 mL solution for nebulizatio n [generic] 15 mcg Inhalation Twice daily For copd/asthma/ interstitial lung disease 15 mcg 2024 Active 2024 95906 04284 0 Twice daily Inhala tion False Clonazepam 0.5 mg tablet [generic] 0.5mg By Mouth As Needed q12 hour PRN For anxiety 0.5mg 2024 Active 2024 73647 76658 0 By Mouth False Betadine Swabsticks 10 % 1 scott Topical Twice daily to bilateral heels For stage 2 pressure injury 1 scott 2024 Active 2024 35460 28875 1 Twice daily Topica l False VITAL SIGNS Date Time Diastolic blood pressure Systolic blood pressure Body height Body weight Temperature SpO2 Blood Sugar Pulse Respirations 98454 102 14664 9 83.00 mm[Hg] - Lying Down 170.00 mm[Hg] - Lying Down 98.20 Forehead Scan 98.00 % 86.00/ min 18.00/min 16979 102 10549 4 83.00 mm[Hg] - Sitting 170.00 mm[Hg] - Sitting 98.20 Tympanic 86.00/ min 18.00/min 14404 103 21640 5 98.20 Tympanic 45658 103 12050 3 80.00 mm[Hg] - Lying Down 164.00 mm[Hg] - Lying Down 91.00/ min 20.00/min 97344 103 64178 0 80.00 mm[Hg] - Sitting 164.00 mm[Hg] - Sitting 98.20 Tympanic 91.00/ min 18.00/min 10559 103 11506 7 91.00 % 20.00/min 86811 103 87371 3 94.00 % 18.00/min 01337 103 22928 9 48844 104 29845 6 80.00 mm[Hg] - Sitting 140.00 mm[Hg] - Sitting 98.10 Tympanic 94.00 % 64.00/ min 18.00/min 86194 104 26178 1 80.00 mm[Hg] - Sitting 140.00 mm[Hg] - Sitting 98.10 Tympanic 64.00/ min 18.00/min 99288 104 04546 0 80.00 mm[Hg] - Sitting 140.00 mm[Hg] - Sitting 98.10 Tympanic 64.00/ min 18.00/min 23140 104 83791 7 73.00 mm[Hg] - Sitting 136.00 mm[Hg] - Sitting 97.90 Forehead Scan 95.00 % 74.00/ min 16.00/min 62678 104 92413 8 73.00 mm[Hg] - Sitting 135.00 mm[Hg] - Sitting 98.20 Tympanic 74.00/ min 18.00/min 77530 104 83602 6 95.00 % 18.00/min 90786 104 73790 6 96.00 % 18.00/min 23028 104 31138 4 94.00 % 18.00/min 27451 104 92656 0 18.00/mi n 69798 105 60101 0 73.00 mm[Hg] - Sitting 135.00 mm[Hg] - Sitting 98.20 Tympanic 74.00/ min 18.00/min 96200 105 64677 6 93.00 % 20.00/min 83885 105 94587 8 94.00 % 20.00/min Immunizations Vaccine Date Status Other 06/20/2024 Completed
--- OUTSIDE RECORDS SUMMARY | 2024-07-19 23:11 | External Medical Summary | Continuity Of Care Document ---
Author Name Unknown Address [address] [address] Organization [facility] () Care Team Providers Care Coater Smoking Pipe Name Role Phone DO Lopez Amy Primary Care Provider [phone] Allergies Allergy Reaction Start Date End Date [...] Day 3 0.1 mL 06/23 Active 2024 92070 26101 0 At bedtime Intrad ermal False Tubersol 5 tub. unit/0.1 mL intradermal injection solution [Tuberculin PPD] 0.1mL Intradermal Once daily For PPD 2nd Step Give 2nd Step PPD Day 1 and Read results Day 3 (schedule 7 days after 1st READ) 0.1mL 07/03 Active 2024 09536 28392 0 Once daily Intrad ermal False Tylenol 325 mg tablet 2 tabs By Mouth Every 4 hours as needed For Pain DO NOT EXCEED 3000 MG APAP/24 Hours 2 tabs 2024 Active 2024 00386 75989 0 Every 4 hours as needed By Mouth False Dulcolax (bisacodyl) 10 mg rectal suppository One Suppository per rectum PRN if Milk of Magnisia ineffective. Give on day 5 of no BM 1 sup 2024 Active 2024 82592 52069 1 Daily as needed Rectal False Fleet Enema 19 gram-7 gram/118 mL Administer per rectum PRN one time if dulcolax suppository not effective. Give on day 6 of no BM 1 2024 Active 2024 33665 47380 6 Daily as needed Rectal False Tylenol 325 mg tablet 2 tabs By Mouth Every 4 hours as needed For Fever >100 DO NOT EXCEED 3000 MG APAP/24 Hours 2 tabs 2024 Active 2024 00113 84108 0 Every 4 hours as needed By Mouth False Eliquis 5 mg tablet 5 mg By Mouth Twice daily For afib 5 mg 2024 Active 2024 75472 27668 1 Twice daily By Mouth False Ferrous sulfate 325 mg (65 mg iron) tablet [generic] 325 mg By Mouth Once daily For supplement 325 mg 2024 Active 2024 81362 03088 5 Once daily By Mouth False Magnesium oxide 400 mg (241.3 mg magnesium) tablet [generic] 400 mg By Mouth Once daily For supplement 400 mg 2024 Active 2024 01285 23752 2 Once daily By Mouth False Protonix 40 mg tablet,bozena yed release 40 mg By Mouth Once daily For GERD 40 mg 2024 Active 2024 69864 12183 1 Once daily By Mouth False Sotalol 120 mg tablet [generic] 120 mg By Mouth Twice daily For SVT 120 mg 2024 Active 2024 76602 48852 1 Twice daily By Mouth False Rosuvastati n 20 mg tablet [generic] 20 mg By Mouth Once daily For HLD 20 mg 2024 Active 2024 41148 72647 0 Once daily By Mouth False Arformotero l 15 mcg/2 mL solution for nebulizatio n [generic] 15 mcg Inhalation Twice daily For copd/asthma/ interstitial lung disease 15 mcg 06/20 Inactiv e 2024 16116 33092 0 Twice daily Inhala tion False Budesonide 0.5 mg/2 mL suspension for nebulizatio n [generic] 0.5 mg Inhalation Twice daily For copd/ asthma/ interstital lung disease 0.5 mg 2024 Active 2024 40541 00292 8 Twice daily Inhala tion False Furosemide 40 mg tablet [generic] 40 mg By Mouth Once daily For chronic diastolic CHF 40 mg 2024 Active 2024 73723 40117 0 Once daily By Mouth False Furosemide 40 mg tablet [generic] 40 mg By Mouth Once daily For chronic diastolic CHF 40 mg 2024 Active 2024 34202 64330 0 Once daily By Mouth False Ventolin HFA 90 mcg/actuati on aerosol inhaler 2 puff Inhalation Every 6 hours as needed For SOB/ wheeze 2 puff 2024 Active 2024 31105 39342 0 Every 6 hours as needed Inhala tion False Amitriptyli ne 25 mg tablet [generic] 25 mg By Mouth At bedtime For general anxiety disorder 25 mg 2024 Active 2024 45378 98022 1 At bedtime By Mouth False Levothyroxi ne 125 mcg tablet [generic] 125 mcg By Mouth Once daily For hypothyroidis m 125 mcg 2024 Active 2024 46903 01773 0 Once daily By Mouth False Arformotero l 15 mcg/2 mL solution for nebulizatio n [generic] 06/20 Inactiv e 2024 25293 37946 0 Arformotero l 15 mcg/2 mL solution for nebulizatio n [generic] 15 mcg Inhalation Twice daily For copd/asthma/ interstitial lung disease 15 mcg 2024 00 /0000 Active 2024 30469 09453 0 Twice daily Inhala tion False
--- OUTSIDE RECORDS SUMMARY | 2024-07-19 23:11 | External Medical Summary | Continuity Of Care Document ---
Author Name Unknown Address [address] [address] Organization [facility] () Care Team Providers Care Steam Plant Records Clerk Name Role Phone DO Lopez Amy Primary Care Provider [phone] Allergies Allergy Reaction Start Date End Date [...] 3 0.1 mL 06/23 Inactiv e 2024 39652 83514 0 At bedtime Intrad ermal False Tubersol 5 tub. unit/0.1 mL intradermal injection solution [Tuberculin PPD] 0.1mL Intradermal Once daily For PPD 2nd Step Give 2nd Step PPD Day 1 and Read results Day 3 (schedule 7 days after 1st READ) 0.1mL 07/03 Active 2024 89814 04423 0 Once daily Intrad ermal False Tylenol 325 mg tablet 2 tabs By Mouth Every 4 hours as needed For Pain DO NOT EXCEED 3000 MG APAP/24 Hours 2 tabs 2024 Active 2024 93426 29999 0 Every 4 hours as needed By Mouth False Dulcolax (bisacodyl) 10 mg rectal suppository One Suppository per rectum PRN if Milk of Magnisia ineffective. Give on day 5 of no BM 1 sup 2024 Active 2024 02379 31856 1 Daily as needed Rectal False Fleet Enema 19 gram-7 gram/118 mL Administer per rectum PRN one time if dulcolax suppository not effective. Give on day 6 of no BM 1 2024 Active 2024 90771 83958 6 Daily as needed Rectal False Tylenol 325 mg tablet 2 tabs By Mouth Every 4 hours as needed For Fever >100 DO NOT EXCEED 3000 MG APAP/24 Hours 2 tabs 2024 Active 2024 01543 45004 0 Every 4 hours as needed By Mouth False Eliquis 5 mg tablet 5 mg By Mouth Twice daily For afib 5 mg 2024 Active 2024 05413 97086 1 Twice daily By Mouth False Ferrous sulfate 325 mg (65 mg iron) tablet [generic] 325 mg By Mouth Once daily For supplement 325 mg 2024 Active 2024 23917 21084 5 Once daily By Mouth False Magnesium oxide 400 mg (241.3 mg magnesium) tablet [generic] 400 mg By Mouth Once daily For supplement 400 mg 2024 Active 2024 19985 69166 2 Once daily By Mouth False Protonix 40 mg tablet,bozena yed release 40 mg By Mouth Once daily For GERD 40 mg 2024 Active 2024 22325 17736 1 Once daily By Mouth False Sotalol 120 mg tablet [generic] 120 mg By Mouth Twice daily For SVT 120 mg 2024 Active 2024 76025 54859 1 Twice daily By Mouth False Rosuvastati n 20 mg tablet [generic] 20 mg By Mouth Once daily For HLD 20 mg 2024 Active 2024 48498 16928 0 Once daily By Mouth False Arformotero l 15 mcg/2 mL solution for nebulizatio n [generic] 15 mcg Inhalation Twice daily For copd/asthma/ interstitial lung disease 15 mcg 06/20 Inactiv e 2024 83753 51840 0 Twice daily Inhala tion False Budesonide 0.5 mg/2 mL suspension for nebulizatio n [generic] 0.5 mg Inhalation Twice daily For copd/ asthma/ interstital lung disease 0.5 mg 2024 Active 2024 00155 38970 8 Twice daily Inhala tion False Furosemide 40 mg tablet [generic] 40 mg By Mouth Once daily For chronic diastolic CHF 40 mg 2024 Active 2024 50782 11548 0 Once daily By Mouth False Furosemide 40 mg tablet [generic] 40 mg By Mouth Once daily For chronic diastolic CHF 40 mg 2024 Active 2024 87299 95574 0 Once daily By Mouth False Ventolin HFA 90 mcg/actuati on aerosol inhaler 2 puff Inhalation Every 6 hours as needed For SOB/ wheeze 2 puff 2024 Active 2024 37460 28190 0 Every 6 hours as needed Inhala tion False Amitriptyli ne 25 mg tablet [generic] 25 mg By Mouth At bedtime For general anxiety disorder 25 mg 2024 Active 2024 24420 99587 1 At bedtime By Mouth False Levothyroxi ne 125 mcg tablet [generic] 125 mcg By Mouth Once daily For hypothyroidis m 125 mcg 2024 Active 2024 80512 33026 0 Once daily By Mouth False Arformotero l 15 mcg/2 mL solution for nebulizatio n [generic] 06/20 Inactiv e 2024 03488 63341 0 Arformotero l 15 mcg/2 mL solution for nebulizatio n [generic] 15 mcg Inhalation Twice daily For copd/asthma/ interstitial lung disease 15 mcg 2024 Active 2024 54294 08261 0 Twice daily Inhala tion False Clonazepam 0.5 mg tablet [generic] 0.5mg By Mouth As Needed q12 hour PRN For anxiety 0.5mg 2024 Active 2024 73101 94520 0 By Mouth False Betadine Swabsticks 10 % 1 scott Topical Twice daily to bilateral heels For stage 2 pressure injury 1 scott 2024 Active 2024 18401 25491 1 Twice daily Topica l False Problems [...] weight Temperature SpO2 Blood Sugar Pulse Respirations 74884 102 49149 9 83.00 mm[Hg] - Lying Down 170.00 mm[Hg] - Lying Down 98.20 Forehead Scan 98.00 % 86.00/ min 18.00/min 16878 102 73562 4 83.00 mm[Hg] - Sitting 170.00 mm[Hg] - Sitting 98.20 Tympanic 86.00/ min 18.00/min 11140 103 83940 5 98.20 Tympanic 44463 103 51691 3 80.00 mm[Hg] - Lying Down 164.00 mm[Hg] - Lying Down 91.00/ min 20.00/min 25754 103 62148 0 80.00 mm[Hg] - Sitting 164.00 mm[Hg] - Sitting 98.20 Tympanic 91.00/ min 18.00/min 01810 103 42322 7 91.00 % 20.00/min 08827 103 63289 3 94.00 % 18.00/min 43808 103 35577 9 33309 104 17722 6 80.00 mm[Hg] - Sitting 140.00 mm[Hg] - Sitting 98.10 Tympanic 94.00 % 64.00/ min 18.00/min 54121 104 02113 1 80.00 mm[Hg] - Sitting 140.00 mm[Hg] - Sitting 98.10 Tympanic 64.00/ min 18.00/min 91562 104 39231 0 80.00 mm[Hg] - Sitting 140.00 mm[Hg] - Sitting 98.10 Tympanic 64.00/ min 18.00/min 10154 104 66572 7 73.00 mm[Hg] - Sitting 136.00 mm[Hg] - Sitting 97.90 Forehead Scan 95.00 % 74.00/ min 16.00/min 11042 104 39351 8 73.00 mm[Hg] - Sitting 135.00 mm[Hg] - Sitting 98.20 Tympanic 74.00/ min 18.00/min 22623 104 95114 6 95.00 % 18.00/min 78833 104 72590 6 96.00 % 18.00/min 51939 104 02493 4 94.00 % 18.00/min 61106 104 66674 0 18.00/mi n 41802 105 88970 0 73.00 mm[Hg] - Sitting 135.00 mm[Hg] - Sitting 98.20 Tympanic 74.00/ min 18.00/min 20206 105 26152 6 73.00 mm[Hg] - Sitting 135.00 mm[Hg] - Sitting 98.20 Tympanic 74.00/ min 20.00/min 89009 105 48367 3 53.00 mm[Hg] - Sitting 126.00 mm[Hg] - Sitting 97.00 Tympanic 99.00 % 56.00/ min 20.00/min 23309 105 32194 6 93.00 % 20.00/min 49837 105 95344 8 94.00 % 20.00/min 74535 105 75059 3 97.00 % 18.00/min 60453 105 64126 9 96.00 % 18.00/min Immunizations Vaccine Date Status Other 06/20/2024 Completed
--- OUTSIDE RECORDS SUMMARY | 2024-07-19 23:11 | External Medical Summary | Continuity Of Care Document ---
Author Name Unknown Address [address] [address] Organization [facility] () Care Team Providers Care Ophthalmic Photographer Name Role Phone DO Lopez Amy Primary Care Provider [phone] Allergies Allergy Reaction Start Date End Date [...] Day 3 0.1 mL 06/23 Active 2024 68311 24884 0 At bedtime Intrad ermal False Tubersol 5 tub. unit/0.1 mL intradermal injection solution [Tuberculin PPD] 0.1mL Intradermal Once daily For PPD 2nd Step Give 2nd Step PPD Day 1 and Read results Day 3 (schedule 7 days after 1st READ) 0.1mL 07/03 Active 2024 10424 76217 0 Once daily Intrad ermal False Tylenol 325 mg tablet 2 tabs By Mouth Every 4 hours as needed For Pain DO NOT EXCEED 3000 MG APAP/24 Hours 2 tabs 2024 Active 2024 12010 87073 0 Every 4 hours as needed By Mouth False Dulcolax (bisacodyl) 10 mg rectal suppository One Suppository per rectum PRN if Milk of Magnisia ineffective. Give on day 5 of no BM 1 sup 2024 Active 2024 99554 49497 1 Daily as needed Rectal False Fleet Enema 19 gram-7 gram/118 mL Administer per rectum PRN one time if dulcolax suppository not effective. Give on day 6 of no BM 1 2024 Active 2024 41371 41270 6 Daily as needed Rectal False Tylenol 325 mg tablet 2 tabs By Mouth Every 4 hours as needed For Fever >100 DO NOT EXCEED 3000 MG APAP/24 Hours 2 tabs 2024 Active 2024 77790 67374 0 Every 4 hours as needed By Mouth False Eliquis 5 mg tablet 5 mg By Mouth Twice daily For afib 5 mg 2024 Active 2024 21224 98947 1 Twice daily By Mouth False Ferrous sulfate 325 mg (65 mg iron) tablet [generic] 325 mg By Mouth Once daily For supplement 325 mg 2024 Active 2024 48357 65040 5 Once daily By Mouth False Magnesium oxide 400 mg (241.3 mg magnesium) tablet [generic] 400 mg By Mouth Once daily For supplement 400 mg 2024 Active 2024 74405 81963 2 Once daily By Mouth False Protonix 40 mg tablet,bozena yed release 40 mg By Mouth Once daily For GERD 40 mg 2024 Active 2024 94981 36473 1 Once daily By Mouth False Sotalol 120 mg tablet [generic] 120 mg By Mouth Twice daily For SVT 120 mg 2024 Active 2024 10264 93786 1 Twice daily By Mouth False Rosuvastati n 20 mg tablet [generic] 20 mg By Mouth Once daily For HLD 20 mg 2024 Active 2024 37176 55176 0 Once daily By Mouth False Arformotero l 15 mcg/2 mL solution for nebulizatio n [generic] 15 mcg Inhalation Twice daily For copd/asthma/ interstitial lung disease 15 mcg 06/20 Inactiv e 2024 57624 73806 0 Twice daily Inhala tion False Budesonide 0.5 mg/2 mL suspension for nebulizatio n [generic] 0.5 mg Inhalation Twice daily For copd/ asthma/ interstital lung disease 0.5 mg 2024 Active 2024 24788 29359 8 Twice daily Inhala tion False Furosemide 40 mg tablet [generic] 40 mg By Mouth Once daily For chronic diastolic CHF 40 mg 2024 Active 2024 16562 32568 0 Once daily By Mouth False Furosemide 40 mg tablet [generic] 40 mg By Mouth Once daily For chronic diastolic CHF 40 mg 2024 Active 2024 15011 10374 0 Once daily By Mouth False Ventolin HFA 90 mcg/actuati on aerosol inhaler 2 puff Inhalation Every 6 hours as needed For SOB/ wheeze 2 puff 2024 Active 2024 75589 39720 0 Every 6 hours as needed Inhala tion False Amitriptyli ne 25 mg tablet [generic] 25 mg By Mouth At bedtime For general anxiety disorder 25 mg 2024 Active 2024 92043 32067 1 At bedtime By Mouth False Levothyroxi ne 125 mcg tablet [generic] 125 mcg By Mouth Once daily For hypothyroidis m 125 mcg 2024 Active 2024 43968 36383 0 Once daily By Mouth False Arformotero l 15 mcg/2 mL solution for nebulizatio n [generic] 06/20 Inactiv e 2024 23280 11010 0 Arformotero l 15 mcg/2 mL solution for nebulizatio n [generic] 15 mcg Inhalation Twice daily For copd/asthma/ interstitial lung disease 15 mcg 2024 Active 2024 94102 29070 0 Twice daily Inhala tion False Betadine Swabsticks 10 % 1 scott Topical Twice daily to bilateral heels For stage 2 pressure injury 1 scott 2024 Active 2024 47936 52487 1 Twice daily Topica l False VITAL SIGNS Date Time Diastolic blood pressure Systolic blood pressure Body height Body weight Temperature SpO2 Blood Sugar Pulse Respirations 97946 102 77150 9 83.00 mm[Hg] - Lying Down 170.00 mm[Hg] - Lying Down 98.20 Forehead Scan 98.00 % 86.00/ min 18.00/min 60715 102 28766 4 83.00 mm[Hg] - Sitting 170.00 mm[Hg] - Sitting 98.20 Tympanic 86.00/ min 18.00/min 42337 103 23145 5 98.20 Tympanic 54905 103 34554 3 80.00 mm[Hg] - Lying Down 164.00 mm[Hg] - Lying Down 91.00/ min 20.00/min 36301 103 29893 7 91.00 % 20.00/min Immunizations Vaccine Date Status Other 06/20/2024 Completed
--- OUTSIDE RECORDS SUMMARY | 2024-07-19 23:11 | External Medical Summary | Continuity Of Care Document ---
Author Name Unknown Address [address] [address] Organization [facility] () Care Team Providers Care Research And Insights Executive Name Role Phone DO Lopez Amy Primary Care Provider [phone] Medications Medication Instructions Dosage Start Date End Date Status Order Date Drug Code Frequency Route of Admin Diagnosis Code Substitutions Allowed Tylenol 325 mg tablet 2 tabs By Mouth Every 4 hours as needed For Pain DO NOT EXCEED 3000 MG APAP/24 Hours 2 tabs 2024 Active 2024 40047 25156 0 Every 4 hours as needed By Mouth False Dulcolax (bisacodyl) 10 mg rectal suppository One Suppository per rectum PRN if Milk of Magnisia ineffective. Give on day 5 of no BM 1 sup 2024 Active 2024 26252 96507 1 Daily as needed Rectal False Fleet Enema 19 gram-7 gram/118 mL Administer per rectum PRN one time if dulcolax suppository not effective. Give on day 6 of no BM 1 2024 Active 2024 98475 56432 6 Daily as needed Rectal False
--- OUTSIDE RECORDS SUMMARY | 2024-07-19 23:11 | External Medical Summary | Continuity Of Care Document ---
Author Name Unknown Address [address] [address] Organization [facility] () Care Team Providers Care Scientific Software Engineer Name Role Phone DO Lopez Amy Primary Care Provider [phone] Allergies Allergy Reaction Start Date End Date [...] Day 3 0.1 mL 06/23 Active 2024 01339 99574 0 At bedtime Intrad ermal False Tubersol 5 tub. unit/0.1 mL intradermal injection solution [Tuberculin PPD] 0.1mL Intradermal Once daily For PPD 2nd Step Give 2nd Step PPD Day 1 and Read results Day 3 (schedule 7 days after 1st READ) 0.1mL 07/03 Active 2024 78176 89602 0 Once daily Intrad ermal False Tylenol 325 mg tablet 2 tabs By Mouth Every 4 hours as needed For Pain DO NOT EXCEED 3000 MG APAP/24 Hours 2 tabs 2024 Active 2024 96573 85839 0 Every 4 hours as needed By Mouth False Dulcolax (bisacodyl) 10 mg rectal suppository One Suppository per rectum PRN if Milk of Magnisia ineffective. Give on day 5 of no BM 1 sup 2024 Active 2024 12600 08023 1 Daily as needed Rectal False Fleet Enema 19 gram-7 gram/118 mL Administer per rectum PRN one time if dulcolax suppository not effective. Give on day 6 of no BM 1 2024 Active 2024 83408 07919 6 Daily as needed Rectal False Tylenol 325 mg tablet 2 tabs By Mouth Every 4 hours as needed For Fever >100 DO NOT EXCEED 3000 MG APAP/24 Hours 2 tabs 2024 Active 2024 49550 20308 0 Every 4 hours as needed By Mouth False Eliquis 5 mg tablet 5 mg By Mouth Twice daily For afib 5 mg 2024 Active 2024 48313 81674 1 Twice daily By Mouth False Ferrous sulfate 325 mg (65 mg iron) tablet [generic] 325 mg By Mouth Once daily For supplement 325 mg 2024 Active 2024 72218 28345 5 Once daily By Mouth False Magnesium oxide 400 mg (241.3 mg magnesium) tablet [generic] 400 mg By Mouth Once daily For supplement 400 mg 2024 Active 2024 06014 68419 2 Once daily By Mouth False Protonix 40 mg tablet,bozena yed release 40 mg By Mouth Once daily For GERD 40 mg 2024 Active 2024 18986 60981 1 Once daily By Mouth False Sotalol 120 mg tablet [generic] 120 mg By Mouth Twice daily For SVT 120 mg 2024 Active 2024 56166 26384 1 Twice daily By Mouth False Rosuvastati n 20 mg tablet [generic] 20 mg By Mouth Once daily For HLD 20 mg 2024 Active 2024 93553 40077 0 Once daily By Mouth False Arformotero l 15 mcg/2 mL solution for nebulizatio n [generic] 15 mcg Inhalation Twice daily For copd/asthma/ interstitial lung disease 15 mcg 06/20 Inactiv e 2024 81574 49192 0 Twice daily Inhala tion False Budesonide 0.5 mg/2 mL suspension for nebulizatio n [generic] 0.5 mg Inhalation Twice daily For copd/ asthma/ interstital lung disease 0.5 mg 2024 Active 2024 25173 62080 8 Twice daily Inhala tion False Furosemide 40 mg tablet [generic] 40 mg By Mouth Once daily For chronic diastolic CHF 40 mg 2024 Active 2024 21344 22343 0 Once daily By Mouth False Furosemide 40 mg tablet [generic] 40 mg By Mouth Once daily For chronic diastolic CHF 40 mg 2024 Active 2024 47285 43780 0 Once daily By Mouth False Ventolin HFA 90 mcg/actuati on aerosol inhaler 2 puff Inhalation Every 6 hours as needed For SOB/ wheeze 2 puff 2024 Active 2024 85419 95055 0 Every 6 hours as needed Inhala tion False Amitriptyli ne 25 mg tablet [generic] 25 mg By Mouth At bedtime For general anxiety disorder 25 mg 2024 Active 2024 56312 75385 1 At bedtime By Mouth False Levothyroxi ne 125 mcg tablet [generic] 125 mcg By Mouth Once daily For hypothyroidis m 125 mcg 2024 Active 2024 99319 91936 0 Once daily By Mouth False Arformotero l 15 mcg/2 mL solution for nebulizatio n [generic] 06/20 Inactiv e 2024 70695 01946 0 Arformotero l 15 mcg/2 mL solution for nebulizatio n [generic] 15 mcg Inhalation Twice daily For copd/asthma/ interstitial lung disease 15 mcg 2024 Active 2024 98166 01263 0 Twice daily Inhala tion False Betadine Swabsticks 10 % 1 scott Topical Twice daily to bilateral heels For stage 2 pressure injury 1 scott 2024 Active 2024 09739 76549 1 Twice daily Topica l False VITAL SIGNS Date Time Diastolic blood pressure Systolic blood pressure Body height Body weight Temperature SpO2 Blood Sugar Pulse Respirations 83355 102 32274 9 83.00 mm[Hg] - Lying Down 170.00 mm[Hg] - Lying Down 98.20 Forehead Scan 98.00 % 86.00/ min 18.00/min 76404 102 61252 4 83.00 mm[Hg] - Sitting 170.00 mm[Hg] - Sitting 98.20 Tympanic 86.00/ min 18.00/min 73631 103 45211 5 98.20 Tympanic 85214 103 53840 3 80.00 mm[Hg] - Lying Down 164.00 mm[Hg] - Lying Down 91.00/ min 20.00/min Immunizations Vaccine Date Status Other 06/20/2024 Completed
--- OUTSIDE RECORDS SUMMARY | 2024-07-19 23:11 | External Medical Summary | Continuity Of Care Document ---
Author Name Unknown Address [address] [place] [address] [facility] () Care Team Providers Care Cryptologic Supervisor Name Role Phone DO Lopez Amy Primary Care Provider [phone] Medications Medication Instructions Dosage Start Date End Date Status Order Date Drug Code Frequency Route of Admin Diagnosis Code Substitutions Allowed Tylenol 325 mg tablet 2 tabs By Mouth Every 4 hours as needed For Pain DO NOT EXCEED 3000 MG APAP/24 Hours 2 tabs 2024 Active 2024 17280 74214 0 Every 4 hours as needed By Mouth False Dulcolax (bisacodyl) 10 mg rectal suppository One Suppository per rectum PRN if Milk of Magnisia ineffective. Give on day 5 of no BM 1 sup 2024 Active 2024 37678 34411 1 Daily as needed Rectal False Fleet Enema 19 gram-7 gram/118 mL Administer per rectum PRN one time if dulcolax suppository not effective. Give on day 6 of no BM 1 2024 Active 2024 92732 69565 6 Daily as needed Rectal False
--- OUTSIDE RECORDS SUMMARY | 2024-07-19 23:11 | External Medical Summary | Continuity Of Care Document ---
Author Name Unknown Address [address] [address] Organization [facility] () Care Team Providers Care Investigator Welfare Name Role Phone DO Lopez Amy Primary Care Provider [phone] Allergies Allergy Reaction Start Date End Date [...] Day 3 0.1 mL 06/23 Active 2024 62046 68331 0 At bedtime Intrad ermal False Tubersol 5 tub. unit/0.1 mL intradermal injection solution [Tuberculin PPD] 0.1mL Intradermal Once daily For PPD 2nd Step Give 2nd Step PPD Day 1 and Read results Day 3 (schedule 7 days after 1st READ) 0.1mL 07/03 Active 2024 41923 40187 0 Once daily Intrad ermal False Tylenol 325 mg tablet 2 tabs By Mouth Every 4 hours as needed For Pain DO NOT EXCEED 3000 MG APAP/24 Hours 2 tabs 2024 Active 2024 29557 23606 0 Every 4 hours as needed By Mouth False Dulcolax (bisacodyl) 10 mg rectal suppository One Suppository per rectum PRN if Milk of Magnisia ineffective. Give on day 5 of no BM 1 sup 2024 Active 2024 09350 82711 1 Daily as needed Rectal False Fleet Enema 19 gram-7 gram/118 mL Administer per rectum PRN one time if dulcolax suppository not effective. Give on day 6 of no BM 1 2024 Active 2024 33590 97808 6 Daily as needed Rectal False Tylenol 325 mg tablet 2 tabs By Mouth Every 4 hours as needed For Fever >100 DO NOT EXCEED 3000 MG APAP/24 Hours 2 tabs 2024 Active 2024 99300 95786 0 Every 4 hours as needed By Mouth False Eliquis 5 mg tablet 5 mg By Mouth Twice daily For afib 5 mg 2024 Active 2024 02981 74798 1 Twice daily By Mouth False Ferrous sulfate 325 mg (65 mg iron) tablet [generic] 325 mg By Mouth Once daily For supplement 325 mg 2024 Active 2024 46572 04544 5 Once daily By Mouth False Magnesium oxide 400 mg (241.3 mg magnesium) tablet [generic] 400 mg By Mouth Once daily For supplement 400 mg 2024 Active 2024 67533 30301 2 Once daily By Mouth False Protonix 40 mg tablet,bozena yed release 40 mg By Mouth Once daily For GERD 40 mg 2024 Active 2024 69478 61408 1 Once daily By Mouth False Sotalol 120 mg tablet [generic] 120 mg By Mouth Twice daily For SVT 120 mg 2024 Active 2024 64499 96877 1 Twice daily By Mouth False Rosuvastati n 20 mg tablet [generic] 20 mg By Mouth Once daily For HLD 20 mg 2024 Active 2024 81712 77325 0 Once daily By Mouth False Arformotero l 15 mcg/2 mL solution for nebulizatio n [generic] 15 mcg Inhalation Twice daily For copd/asthma/ interstitial lung disease 15 mcg 06/20 Inactiv e 2024 76694 70970 0 Twice daily Inhala tion False Budesonide 0.5 mg/2 mL suspension for nebulizatio n [generic] 0.5 mg Inhalation Twice daily For copd/ asthma/ interstital lung disease 0.5 mg 2024 Active 2024 15953 55126 8 Twice daily Inhala tion False Furosemide 40 mg tablet [generic] 40 mg By Mouth Once daily For chronic diastolic CHF 40 mg 2024 Active 2024 21436 47728 0 Once daily By Mouth False Furosemide 40 mg tablet [generic] 40 mg By Mouth Once daily For chronic diastolic CHF 40 mg 2024 Active 2024 84519 76754 0 Once daily By Mouth False Ventolin HFA 90 mcg/actuati on aerosol inhaler 2 puff Inhalation Every 6 hours as needed For SOB/ wheeze 2 puff 2024 Active 2024 00477 42543 0 Every 6 hours as needed Inhala tion False Amitriptyli ne 25 mg tablet [generic] 25 mg By Mouth At bedtime For general anxiety disorder 25 mg 2024 Active 2024 26884 20833 1 At bedtime By Mouth False Levothyroxi ne 125 mcg tablet [generic] 125 mcg By Mouth Once daily For hypothyroidis m 125 mcg 2024 Active 2024 63605 67786 0 Once daily By Mouth False Arformotero l 15 mcg/2 mL solution for nebulizatio n [generic] 06/20 Inactiv e 2024 54045 12643 0 Arformotero l 15 mcg/2 mL solution for nebulizatio n [generic] 15 mcg Inhalation Twice daily For copd/asthma/ interstitial lung disease 15 mcg 2024 00 /0000 Active 2024 57689 98113 0 Twice daily Inhala tion False
--- OUTSIDE RECORDS SUMMARY | 2024-07-19 23:11 | External Medical Summary | Continuity Of Care Document ---
Author Name Unknown Address [address] [place] [address] Organization [facility] () Care Team Providers Care Scaleman Name Role Phone DO Lopez Amy Primary Care Provider [phone] Medications Medication Instructions Dosage Start Date End Date Status Order Date Drug Code Frequency Route of Admin Diagnosis Code Substitutions Allowed Tylenol 325 mg tablet 2 tabs By Mouth Every 4 hours as needed For Pain DO NOT EXCEED 3000 MG APAP/24 Hours 2 tabs 2024 Active 2024 75000 35550 0 Every 4 hours as needed By Mouth False Dulcolax (bisacodyl) 10 mg rectal suppository One Suppository per rectum PRN if Milk of Magnisia ineffective. Give on day 5 of no BM 1 sup 2024 Active 2024 52638 41255 1 Daily as needed Rectal False Fleet Enema 19 gram-7 gram/118 mL Administer per rectum PRN one time if dulcolax suppository not effective. Give on day 6 of no BM 1 2024 Active 2024 19958 53290 6 Daily as needed Rectal False
--- OUTSIDE RECORDS SUMMARY | 2024-07-19 23:11 | External Medical Summary | Summary of Care ---
Author Name Unknown Organization [facility] [address] [address] Phone [phone] Care Team Providers Care Label Fuser Tender Name Role Phone Umair Gillis Primary Care Provider Encounter Details Date Type Department Care Team (Late st Contact Info) Description 06/11/2024 Result Scan Unspecified Department <No scans attached> Allergies Active Allergy Reactions Criticality Noted Date Comments Amoxicillin 08/21/2002 shanon Clarithromycin Unknown 10/26/1999 Iodine 01/20/2004 anaphy Morphine Neuro complications (Please comment) 05/27/2003 shanon Cefdinir Other (Please comment) Medium 04/21/2016 Headache, restless Prednisone Unknown 06/16/2010 Propoxyphene Other (Please comment) 10/26/1999 "knocks me out" Propoxyphene Hcl 04/24/2000 change in mental status Pseudoephedrine Unknown 09/16/2009 Serotonin Reuptake Inhibitors (Ssris) 03/21/2001 Celshanon camacho documented as of this encounter (statuses as of 06/21/2024) Medications ASPIRIN 81 MG PO TABSIndications:ta kes [...] as of this encounter (statuses as of 06/21/2024) Active Problems Problem Noted Date Diagnosed Date [...] as of this encounter (statuses as of 06/21/2024) Resolved Problems Problem Noted Date Diagnosed Date [...] as of this encounter (statuses as of 06/21/2024) Immunizations Name Administration Dates Next Due COVID-19 mRNA, LNP-s, No Pre serve, 2-Dose Series (CleanFish) 06/15/2021,08/14/2020,07/23/2020 Pneumococcal Conjugate Vacc, 13 Valent (Prevnar) [...] 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 file Not on file [employer]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 file 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 Not on file Not on file documented as of this encounter Plan of Treatment Upcoming Encounters Date Type Department Care Team (Late st Contact Info) Description 07/10/2024 10:00 AM EST Office Visit Cardiology, [address] [place] [address] Rosemarie Beyer CRNP [address] [place] [address] [place] [address] 07/24/2024 12:50 PM EST Office Visit Dermatology [facility], [place] [address] [facility] [place] [address] Bela Nevarez PA-C [address] [facility] [place] [address] 10/09/2024 1:40 PM EDT Office Visit Pulmonary Medicine, [facility] [address] [place] [address] Jt Leon MD [address] [place] [address] 12/04/2024 1:00 PM EDT Office Visit Family Practice [facility] [address] [facility] [place] [address] Umair Gillis DO [address] [facility] [place] [address] Scheduled Procedures Name Priority Associated Diagnoses Date/Ti [...] this encounter Medical Devices Implanted Type Area Podiatry Teacher Device Identifier Shelf Expiration Date Model / Serial / Lot Clip Quick 2.8mm 230cm - [id number] Implanted:Qty: 2 on 01/31/2019 by Rebecca Ayala DO at [facility] [employer] 06/18/2021 [id number] / / documented as of this encounter Procedures Procedure Name Priority Date/Time Associated Diagnosis Comments PROCEDURE SCANNED RESULT 06/11/2024 documented in this encounter Results * PROCEDURE SCANNED RESULT (06/11/2024) 06/11/2024 No Physician Data Unknown SURGERY Final Result documented in this encounter Care Teams Label Fuser Tender Relationship Specialty Start Date End Date Umair Gillis DO [address] [place] [address] PCP - General Family Medicine 12/16/16 documented as of this encounter
--- OUTSIDE RECORDS SUMMARY | 2024-07-19 23:11 | External Medical Summary | Continuity Of Care Document ---
Author Name Unknown Address [address] [address] Organization [facility] () Care Team Providers Care Collection Systems Modeler Name Role Phone DO Lopez Amy Primary Care Provider [phone] Allergies Allergy Reaction Start Date End Date [...] Day 3 0.1 mL 06/23 Active 2024 46047 16330 0 At bedtime Intrad ermal False Tubersol 5 tub. unit/0.1 mL intradermal injection solution [Tuberculin PPD] 0.1mL Intradermal Once daily For PPD 2nd Step Give 2nd Step PPD Day 1 and Read results Day 3 (schedule 7 days after 1st READ) 0.1mL 07/03 Active 2024 69083 21124 0 Once daily Intrad ermal False Tylenol 325 mg tablet 2 tabs By Mouth Every 4 hours as needed For Pain DO NOT EXCEED 3000 MG APAP/24 Hours 2 tabs 2024 Active 2024 77240 28783 0 Every 4 hours as needed By Mouth False Dulcolax (bisacodyl) 10 mg rectal suppository One Suppository per rectum PRN if Milk of Magnisia ineffective. Give on day 5 of no BM 1 sup 2024 Active 2024 07334 99474 1 Daily as needed Rectal False Fleet Enema 19 gram-7 gram/118 mL Administer per rectum PRN one time if dulcolax suppository not effective. Give on day 6 of no BM 1 2024 Active 2024 25874 54461 6 Daily as needed Rectal False Tylenol 325 mg tablet 2 tabs By Mouth Every 4 hours as needed For Fever >100 DO NOT EXCEED 3000 MG APAP/24 Hours 2 tabs 2024 Active 2024 03363 72461 0 Every 4 hours as needed By Mouth False Eliquis 5 mg tablet 5 mg By Mouth Twice daily For afib 5 mg 2024 Active 2024 74703 10835 1 Twice daily By Mouth False Ferrous sulfate 325 mg (65 mg iron) tablet [generic] 325 mg By Mouth Once daily For supplement 325 mg 2024 Active 2024 48436 61849 5 Once daily By Mouth False Magnesium oxide 400 mg (241.3 mg magnesium) tablet [generic] 400 mg By Mouth Once daily For supplement 400 mg 2024 Active 2024 68099 01341 2 Once daily By Mouth False Protonix 40 mg tablet,bozena yed release 40 mg By Mouth Once daily For GERD 40 mg 2024 Active 2024 45004 25243 1 Once daily By Mouth False Sotalol 120 mg tablet [generic] 120 mg By Mouth Twice daily For SVT 120 mg 2024 Active 2024 66801 60546 1 Twice daily By Mouth False Rosuvastati n 20 mg tablet [generic] 20 mg By Mouth Once daily For HLD 20 mg 2024 Active 2024 06316 00692 0 Once daily By Mouth False Arformotero l 15 mcg/2 mL solution for nebulizatio n [generic] 15 mcg Inhalation Twice daily For copd/asthma/ interstitial lung disease 15 mcg 06/20 Inactiv e 2024 88792 99073 0 Twice daily Inhala tion False Budesonide 0.5 mg/2 mL suspension for nebulizatio n [generic] 0.5 mg Inhalation Twice daily For copd/ asthma/ interstital lung disease 0.5 mg 2024 Active 2024 27452 66556 8 Twice daily Inhala tion False Furosemide 40 mg tablet [generic] 40 mg By Mouth Once daily For chronic diastolic CHF 40 mg 2024 Active 2024 25867 77610 0 Once daily By Mouth False Furosemide 40 mg tablet [generic] 40 mg By Mouth Once daily For chronic diastolic CHF 40 mg 2024 Active 2024 11808 92965 0 Once daily By Mouth False Ventolin HFA 90 mcg/actuati on aerosol inhaler 2 puff Inhalation Every 6 hours as needed For SOB/ wheeze 2 puff 2024 Active 2024 83142 14155 0 Every 6 hours as needed Inhala tion False Amitriptyli ne 25 mg tablet [generic] 25 mg By Mouth At bedtime For general anxiety disorder 25 mg 2024 Active 2024 39051 94654 1 At bedtime By Mouth False Levothyroxi ne 125 mcg tablet [generic] 125 mcg By Mouth Once daily For hypothyroidis m 125 mcg 2024 Active 2024 51093 75167 0 Once daily By Mouth False Arformotero l 15 mcg/2 mL solution for nebulizatio n [generic] 06/20 Inactiv e 2024 32159 80293 0 Arformotero l 15 mcg/2 mL solution for nebulizatio n [generic] 15 mcg Inhalation Twice daily For copd/asthma/ interstitial lung disease 15 mcg 202400 0000 Active 2024 25712 44700 0 Twice daily Inhala tion False Betadine Swabsticks 10 % 1 scott Topical Twice daily to bilateral heels For stage 2 pressure injury 1 scott 202400 0000 Active 2024 37451 18643 1 Twice daily Topica l False VITAL SIGNS Date Time Diastolic blood pressure Systolic blood pressure Body height Body weight Temperature SpO2 Blood Sugar Pulse Respirations 08474 102 13487 9 83.00 mm[Hg] - Lying Down 170.00 mm[Hg] - Lying Down 98.20 Forehead Scan 98.00 % 86.00/ min 18.00/min 37703 102 96392 4 83.00 mm[Hg] - Sitting 170.00 mm[Hg] - Sitting 98.20 Tympanic 86.00/ min 18.00/min 64539 103 16647 5 98.20 Tympanic 52653 103 53421 3 80.00 mm[Hg] - Lying Down 164.00 mm[Hg] - Lying Down 91.00/ min 20.00/min 79323 103 33214 0 80.00 mm[Hg] - Sitting 164.00 mm[Hg] - Sitting 98.20 Tympanic 91.00/ min 18.00/min 81681 103 56372 7 91.00 % 20.00/min 83477 103 19038 3 94.00 % 18.00/min 65074 103 92882 9 01547 104 55132 6 80.00 mm[Hg] - Sitting 140.00 mm[Hg] - Sitting 98.10 Tympanic 94.00 % 64.00/ min 18.00/min 03522 104 37584 1 80.00 mm[Hg] - Sitting 140.00 mm[Hg] - Sitting 98.10 Tympanic 64.00/ min 18.00/min 50311 104 21086 6 95.00 % 18.00/min 49164 104 91075 6 96.00 % 18.00/min Immunizations Vaccine Date Status Other 06/20/2024 Completed
--- OUTSIDE RECORDS SUMMARY | 2024-07-19 23:11 | External Medical Summary | Continuity Of Care Document ---
Author Name Unknown Address [address] [address] Organization [facility] () Care Team Providers Care Concession Manager Name Role Phone DO Lopez Amy Primary Care Provider [phone] Allergies Allergy Reaction Start Date End Date [...] 3 0.1 mL 06/23 Inactiv e 2024 70072 30217 0 At bedtime Intrad ermal False Tubersol 5 tub. unit/0.1 mL intradermal injection solution [Tuberculin PPD] 0.1mL Intradermal Once daily For PPD 2nd Step Give 2nd Step PPD Day 1 and Read results Day 3 (schedule 7 days after 1st READ) 0.1mL 07/03 Active 2024 63602 94852 0 Once daily Intrad ermal False Tylenol 325 mg tablet 2 tabs By Mouth Every 4 hours as needed For Pain DO NOT EXCEED 3000 MG APAP/24 Hours 2 tabs 2024 Active 2024 96731 26630 0 Every 4 hours as needed By Mouth False Dulcolax (bisacodyl) 10 mg rectal suppository One Suppository per rectum PRN if Milk of Magnisia ineffective. Give on day 5 of no BM 1 sup 2024 Active 2024 78279 01308 1 Daily as needed Rectal False Fleet Enema 19 gram-7 gram/118 mL Administer per rectum PRN one time if dulcolax suppository not effective. Give on day 6 of no BM 1 2024 Active 2024 33860 86855 6 Daily as needed Rectal False Tylenol 325 mg tablet 2 tabs By Mouth Every 4 hours as needed For Fever >100 DO NOT EXCEED 3000 MG APAP/24 Hours 2 tabs 2024 Active 2024 19560 14455 0 Every 4 hours as needed By Mouth False Eliquis 5 mg tablet 5 mg By Mouth Twice daily For afib 5 mg 2024 Active 2024 23351 14116 1 Twice daily By Mouth False Ferrous sulfate 325 mg (65 mg iron) tablet [generic] 325 mg By Mouth Once daily For supplement 325 mg 2024 Active 2024 08867 06353 5 Once daily By Mouth False Magnesium oxide 400 mg (241.3 mg magnesium) tablet [generic] 400 mg By Mouth Once daily For supplement 400 mg 2024 Active 2024 98109 02920 2 Once daily By Mouth False Protonix 40 mg tablet,bozena yed release 40 mg By Mouth Once daily For GERD 40 mg 2024 Active 2024 54501 25091 1 Once daily By Mouth False Sotalol 120 mg tablet [generic] 120 mg By Mouth Twice daily For SVT 120 mg 2024 Active 2024 35944 56565 1 Twice daily By Mouth False Rosuvastati n 20 mg tablet [generic] 20 mg By Mouth Once daily For HLD 20 mg 2024 Active 2024 38343 07005 0 Once daily By Mouth False Arformotero l 15 mcg/2 mL solution for nebulizatio n [generic] 15 mcg Inhalation Twice daily For copd/asthma/ interstitial lung disease 15 mcg 06/20 Inactiv e 2024 95855 61347 0 Twice daily Inhala tion False Budesonide 0.5 mg/2 mL suspension for nebulizatio n [generic] 0.5 mg Inhalation Twice daily For copd/ asthma/ interstital lung disease 0.5 mg 2024 Active 2024 11374 32179 8 Twice daily Inhala tion False Furosemide 40 mg tablet [generic] 40 mg By Mouth Once daily For chronic diastolic CHF 40 mg 2024 Active 2024 99631 73343 0 Once daily By Mouth False Furosemide 40 mg tablet [generic] 40 mg By Mouth Once daily For chronic diastolic CHF 40 mg 2024 Active 2024 68968 16006 0 Once daily By Mouth False Ventolin HFA 90 mcg/actuati on aerosol inhaler 2 puff Inhalation Every 6 hours as needed For SOB/ wheeze 2 puff 2024 Active 2024 91252 01580 0 Every 6 hours as needed Inhala tion False Amitriptyli ne 25 mg tablet [generic] 25 mg By Mouth At bedtime For general anxiety disorder 25 mg 2024 Active 2024 94708 46966 1 At bedtime By Mouth False Levothyroxi ne 125 mcg tablet [generic] 125 mcg By Mouth Once daily For hypothyroidis m 125 mcg 2024 Active 2024 59921 15322 0 Once daily By Mouth False Arformotero l 15 mcg/2 mL solution for nebulizatio n [generic] 06/20 Inactiv e 2024 10005 41866 0 Arformotero l 15 mcg/2 mL solution for nebulizatio n [generic] 15 mcg Inhalation Twice daily For copd/asthma/ interstitial lung disease 15 mcg 2024 Active 2024 38111 35984 0 Twice daily Inhala tion False Clonazepam 0.5 mg tablet [generic] 0.5mg By Mouth As Needed q12 hour PRN For anxiety 0.5mg 2024 Active 2024 88711 68158 0 By Mouth False Betadine Swabsticks 10 % 1 scott Topical Twice daily to bilateral heels For stage 2 pressure injury 1 scott 2024 Active 2024 64232 60506 1 Twice daily Topica l False VITAL SIGNS Date Time Diastolic blood pressure Systolic blood pressure Body height Body weight Temperature SpO2 Blood Sugar Pulse Respirations 90234 102 58887 9 83.00 mm[Hg] - Lying Down 170.00 mm[Hg] - Lying Down 98.20 Forehead Scan 98.00 % 86.00/ min 18.00/min 93519 102 78346 4 83.00 mm[Hg] - Sitting 170.00 mm[Hg] - Sitting 98.20 Tympanic 86.00/ min 18.00/min 99569 103 55124 5 98.20 Tympanic 78949 103 04905 3 80.00 mm[Hg] - Lying Down 164.00 mm[Hg] - Lying Down 91.00/ min 20.00/min 48646 103 91306 0 80.00 mm[Hg] - Sitting 164.00 mm[Hg] - Sitting 98.20 Tympanic 91.00/ min 18.00/min 39845 103 15326 7 91.00 % 20.00/min 66577 103 40015 3 94.00 % 18.00/min 47992 103 26365 9 70587 104 66561 6 80.00 mm[Hg] - Sitting 140.00 mm[Hg] - Sitting 98.10 Tympanic 94.00 % 64.00/ min 18.00/min 30750 104 17109 1 80.00 mm[Hg] - Sitting 140.00 mm[Hg] - Sitting 98.10 Tympanic 64.00/ min 18.00/min 73490 104 63748 0 80.00 mm[Hg] - Sitting 140.00 mm[Hg] - Sitting 98.10 Tympanic 64.00/ min 18.00/min 79977 104 35308 7 73.00 mm[Hg] - Sitting 136.00 mm[Hg] - Sitting 97.90 Forehead Scan 95.00 % 74.00/ min 16.00/min 98618 104 04501 8 73.00 mm[Hg] - Sitting 135.00 mm[Hg] - Sitting 98.20 Tympanic 74.00/ min 18.00/min 33479 104 74332 6 95.00 % 18.00/min 00215 104 76138 6 96.00 % 18.00/min 83457 104 36535 4 94.00 % 18.00/min 19125 104 72429 0 18.00/mi n 98682 105 53151 0 73.00 mm[Hg] - Sitting 135.00 mm[Hg] - Sitting 98.20 Tympanic 74.00/ min 18.00/min 43059 105 83949 6 93.00 % 20.00/min Immunizations Vaccine Date Status Other 06/20/2024 Completed
--- OUTSIDE RECORDS SUMMARY | 2024-07-19 23:11 | External Medical Summary | Continuity Of Care Document ---
Author Name Unknown Address [address] [address] Organization [facility] () Care Team Providers Care Gate Attendant Name Role Phone DO Lopez Amy Primary Care Provider [phone] Allergies Allergy Reaction Start Date End Date [...] APAP/24 Hours 2 tabs 2024 Active 2024 06132 28862 0 Every 4 hours as needed By Mouth False Dulcolax (bisacodyl) 10 mg rectal suppository One Suppository per rectum PRN if Milk of Magnisia ineffective. Give on day 5 of no BM 1 sup 2024 Active 2024 27788 97355 1 Daily as needed Rectal False Fleet Enema 19 gram-7 gram/118 mL Administer per rectum PRN one time if dulcolax suppository not effective. Give on day 6 of no BM 1 2024 Active 2024 62394 96954 6 Daily as needed Rectal False Tylenol 325 mg tablet 2 tabs By Mouth Every 4 hours as needed For Fever >100 DO NOT EXCEED 3000 MG APAP/24 Hours 2 tabs 2024 Active 2024 65784 95452 0 Every 4 hours as needed By Mouth False Eliquis 5 mg tablet 5 mg By Mouth Twice daily For afib 5 mg 2024 Active 2024 37714 82279 1 Twice daily By Mouth False Ferrous sulfate 325 mg (65 mg iron) tablet [generic] 325 mg By Mouth Once daily For supplement 325 mg 2024 Active 2024 33883 22228 5 Once daily By Mouth False Magnesium oxide 400 mg (241.3 mg magnesium) tablet [generic] 400 mg By Mouth Once daily For supplement 400 mg 2024 Active 2024 96157 28806 2 Once daily By Mouth False Protonix 40 mg tablet,bozena yed release 40 mg By Mouth Once daily For GERD 40 mg 2024 Active 2024 67318 58012 1 Once daily By Mouth False Sotalol 120 mg tablet [generic] 120 mg By Mouth Twice daily For SVT 120 mg 2024 Active 2024 91325 15394 1 Twice daily By Mouth False Rosuvastati n 20 mg tablet [generic] 20 mg By Mouth Once daily For HLD 20 mg 2024 Active 2024 02846 33901 0 Once daily By Mouth False Arformotero l 15 mcg/2 mL solution for nebulizatio n [generic] 15 mcg Inhalation Twice daily For copd/asthma/ interstitial lung disease 15 mcg 2024 Active 2024 37547 82845 0 Twice daily Inhala tion False Budesonide 0.5 mg/2 mL suspension for nebulizatio n [generic] 0.5 mg Inhalation Twice daily For copd/ asthma/ interstital lung disease 0.5 mg 2024 Active 2024 32636 00794 8 Twice daily Inhala tion False Furosemide 40 mg tablet [generic] 40 mg By Mouth Once daily For chronic diastolic CHF 40 mg 2024 Active 2024 74187 10890 0 Once daily By Mouth False Furosemide 40 mg tablet [generic] 40 mg By Mouth Once daily For chronic diastolic CHF 40 mg 2024 Active 2024 47815 39356 0 Once daily By Mouth False Ventolin HFA 90 mcg/actuati on aerosol inhaler 2 puff Inhalation Every 6 hours as needed For SOB/ wheeze 2 puff 2024 Active 2024 14041 25046 0 Every 6 hours as needed Inhala tion False Amitriptyli ne 25 mg tablet [generic] 25 mg By Mouth At bedtime For general anxiety disorder 25 mg 2024 Active 2024 76379 45795 1 At bedtime By Mouth False Levothyroxi ne 125 mcg tablet [generic] 125 mcg By Mouth Once daily For hypothyroidis m 125 mcg 2024 Active 2024 52538 43740 0 Once daily By Mouth False
--- OUTSIDE RECORDS SUMMARY | 2024-07-19 23:12 | External Medical Summary | Summary of Care ---
Author Name Unknown Organization [facility] Address [address] [place] [address] Phone [phone] Care Team Providers Care Didactic Program In Dietetics Director Name Role Phone Umair Gillis Primary Care Provider [phone] Encounter Details Date Type Department Care Team (Late st Contact Info) Description 06/17/2024 Result Scan Unspecified Department <No scans attached> [...] as of this encounter (statuses as of 06/18/2024) Medications ASPIRIN 81 MG PO TABSIndications:ta kes 3x a week Take by mouth. Indications: takes 3x a week Active triamcinolone acetonide (ARISTOCORT) 0.1 % cream Apply topically to affected area 2 times a day. To affected area. 60 g 5 8 Active oxygen IN GASIndications:ILD (interstitial lung disease) ([facility]),Moderate persistent asthma without complication,Chron ic respiratory failure with hypoxia ([facility]) Use 2 LPM with exertion. 1 Each [...] PD, group C, by GOLD 2017 classification ([facility]),Chronic diastolic CHF (congestive heart failure) ([facility]),Moderate persistent asthma without complication Inhale 1 Puff by mouth every 4 hours as needed for Wheezing. 15 g 12 3 Active Ventolin HFA 108 (90 Base) MCG/ACT Inhalation Aerosol Solution Inhale 2 Puffs by mouth every 4 hours as needed for Wheezing. 18 g 3 3 Active Furosemide 40 MG Oral Tablet (Lasix)Indications :Chronic diastolic CHF (congestive heart failure) ([facility]) Take one tablet in the morning and one in the mid afternoon 60 Tablet 11 4 Active Budesonide 0.5 MG/2ML Inhalation Suspension (Pulmicort)Indicat ions:Moderate persistent asthma without complication,ILD (interstitial lung disease) ([facility]) Inhale 0.5 mg via nebulizer in the [...] as of this encounter (statuses as of 06/18/2024) Active Problems Problem Noted Date Diagnosed Date [...] as of this encounter (statuses as of 06/18/2024) Resolved Problems Problem Noted Date Diagnosed Date [...] as of this encounter (statuses as of 06/18/2024) Immunizations Name Administration Dates Next Due COVID-19 mRNA, LNP-s, No Pre serve, 2-Dose Series ([employer]) 06/15/2021,08/14/2020,07/23/2020 Pneumococcal Conjugate Vacc, 13 Valent (Prevnar) [...] 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 [place] [address] [facility] [place] [address] Bela Nevarez PA-C [address] [facility] [place] [address] 10/09/2024 1:40 PM EDT Office Visit Pulmonary Medicine, [facility] [address] [place] [address] Jt Leon MD [address] [place] [address] 12/04/2024 1:00 PM EDT Office Visit Family Practice [facility] [address] [facility] [place] [address] Umair Gillis DO [address] [facility] [place] [address] Scheduled Procedures Name Priority Associated Diagnoses Date/Ti [...] this encounter Medical Devices Implanted Type Area Chemist Intern Device Identifier Shelf Expiration Date Model / Serial / Lot Clip Quick 2.8mm 230cm - [id number] Implanted:Qty: 2 on 01/31/2019 by Rebecca Ayala DO at ENDOSCOPY [facility] [employer] 06/18/2021 [id number] / / documented as of this encounter Procedures Procedure Name Priority Date/Time Associated Diagnosis Comments CARDIOLOGY SCANNED RESULT 06/17/2024 documented in this encounter Results * CARDIOLOGY SCANNED RESULT (06/17/2024) 06/17/2024 No Physician Data Unknown OTHER Final Result documented in this encounter Care Teams Didactic Program In Dietetics Director Relationship Specialty Start Date End Date Umair Gillis DO [address] [place] [address] PCP - General Family Medicine 12/16/16 documented as of this encounter
--- OUTSIDE RECORDS SUMMARY | 2024-07-19 23:12 | External Medical Summary | Continuity Of Care Document ---
Author Name Unknown Address [address] [address] Organization [facility] () Care Team Providers Care Rn Medication Name Role Phone DO Lopez Amy Primary Care Provider [phone] Allergies Allergy Reaction Start Date End Date [...] Day 3 0.1 mL 06/23 Active 2024 85056 99614 0 At bedtime Intrad ermal False Tubersol 5 tub. unit/0.1 mL intradermal injection solution [Tuberculin PPD] 0.1mL Intradermal Once daily For PPD 2nd Step Give 2nd Step PPD Day 1 and Read results Day 3 (schedule 7 days after 1st READ) 0.1mL 07/03 Active 2024 11070 27900 0 Once daily Intrad ermal False Tylenol 325 mg tablet 2 tabs By Mouth Every 4 hours as needed For Pain DO NOT EXCEED 3000 MG APAP/24 Hours 2 tabs 2024 Active 2024 75696 94393 0 Every 4 hours as needed By Mouth False Dulcolax (bisacodyl) 10 mg rectal suppository One Suppository per rectum PRN if Milk of Magnisia ineffective. Give on day 5 of no BM 1 sup 2024 Active 2024 86467 93706 1 Daily as needed Rectal False Fleet Enema 19 gram-7 gram/118 mL Administer per rectum PRN one time if dulcolax suppository not effective. Give on day 6 of no BM 1 2024 Active 2024 70590 99858 6 Daily as needed Rectal False Tylenol 325 mg tablet 2 tabs By Mouth Every 4 hours as needed For Fever >100 DO NOT EXCEED 3000 MG APAP/24 Hours 2 tabs 2024 Active 2024 84543 19022 0 Every 4 hours as needed By Mouth False Eliquis 5 mg tablet 5 mg By Mouth Twice daily For afib 5 mg 2024 Active 2024 96066 42802 1 Twice daily By Mouth False Ferrous sulfate 325 mg (65 mg iron) tablet [generic] 325 mg By Mouth Once daily For supplement 325 mg 2024 Active 2024 81042 46380 5 Once daily By Mouth False Magnesium oxide 400 mg (241.3 mg magnesium) tablet [generic] 400 mg By Mouth Once daily For supplement 400 mg 2024 Active 2024 47355 09189 2 Once daily By Mouth False Protonix 40 mg tablet,bozena yed release 40 mg By Mouth Once daily For GERD 40 mg 2024 Active 2024 39978 56910 1 Once daily By Mouth False Sotalol 120 mg tablet [generic] 120 mg By Mouth Twice daily For SVT 120 mg 2024 Active 2024 80040 68678 1 Twice daily By Mouth False Rosuvastati n 20 mg tablet [generic] 20 mg By Mouth Once daily For HLD 20 mg 2024 Active 2024 67855 26870 0 Once daily By Mouth False Arformotero l 15 mcg/2 mL solution for nebulizatio n [generic] 15 mcg Inhalation Twice daily For copd/asthma/ interstitial lung disease 15 mcg 06/20 Inactiv e 2024 40306 21409 0 Twice daily Inhala tion False Budesonide 0.5 mg/2 mL suspension for nebulizatio n [generic] 0.5 mg Inhalation Twice daily For copd/ asthma/ interstital lung disease 0.5 mg 2024 Active 2024 31227 00308 8 Twice daily Inhala tion False Furosemide 40 mg tablet [generic] 40 mg By Mouth Once daily For chronic diastolic CHF 40 mg 2024 Active 2024 89642 97566 0 Once daily By Mouth False Furosemide 40 mg tablet [generic] 40 mg By Mouth Once daily For chronic diastolic CHF 40 mg 2024 Active 2024 91308 94139 0 Once daily By Mouth False Ventolin HFA 90 mcg/actuati on aerosol inhaler 2 puff Inhalation Every 6 hours as needed For SOB/ wheeze 2 puff 2024 Active 2024 92382 80115 0 Every 6 hours as needed Inhala tion False Amitriptyli ne 25 mg tablet [generic] 25 mg By Mouth At bedtime For general anxiety disorder 25 mg 2024 Active 2024 19330 34051 1 At bedtime By Mouth False Levothyroxi ne 125 mcg tablet [generic] 125 mcg By Mouth Once daily For hypothyroidis m 125 mcg 2024 Active 2024 08333 10705 0 Once daily By Mouth False Arformotero l 15 mcg/2 mL solution for nebulizatio n [generic] 06/20 Inactiv e 2024 69290 25020 0 Arformotero l 15 mcg/2 mL solution for nebulizatio n [generic] 15 mcg Inhalation Twice daily For copd/asthma/ interstitial lung disease 15 mcg 2024 Active 2024 82036 45516 0 Twice daily Inhala tion False Betadine Swabsticks 10 % 1 scott Topical Twice daily to bilateral heels For stage 2 pressure injury 1 scott 2024 Active 2024 37566 46596 1 Twice daily Topica l False VITAL SIGNS Date Time Diastolic blood pressure Systolic blood pressure Body height Body weight Temperature SpO2 Blood Sugar Pulse Respirations 36652 102 80796 9 83.00 mm[Hg] - Lying Down 170.00 mm[Hg] - Lying Down 98.20 Forehead Scan 98.00 % 86.00/ min 18.00/min 69313 102 33960 4 83.00 mm[Hg] - Sitting 170.00 mm[Hg] - Sitting 98.20 Tympanic 86.00/ min 18.00/min 26523 103 57494 5 98.20 Tympanic 64393 103 43635 3 80.00 mm[Hg] - Lying Down 164.00 mm[Hg] - Lying Down 91.00/ min 20.00/min 66361 103 38631 7 91.00 % 20.00/min Immunizations Vaccine Date Status Other 06/20/2024 Completed
--- OUTSIDE RECORDS SUMMARY | 2024-07-19 23:12 | External Medical Summary | Continuity Of Care Document ---
Author Name Unknown Address [address] [address] Organization [facility] () Care Team Providers Care Pool Finisher Name Role Phone DO Lopez Amy Primary Care Provider [phone] Allergies Allergy Reaction Start Date End Date [...] Day 3 0.1 mL 06/23 Active 2024 75553 02013 0 At bedtime Intrad ermal False Tubersol 5 tub. unit/0.1 mL intradermal injection solution [Tuberculin PPD] 0.1mL Intradermal Once daily For PPD 2nd Step Give 2nd Step PPD Day 1 and Read results Day 3 (schedule 7 days after 1st READ) 0.1mL 07/03 Active 2024 80336 59699 0 Once daily Intrad ermal False Tylenol 325 mg tablet 2 tabs By Mouth Every 4 hours as needed For Pain DO NOT EXCEED 3000 MG APAP/24 Hours 2 tabs 2024 Active 2024 40324 12428 0 Every 4 hours as needed By Mouth False Dulcolax (bisacodyl) 10 mg rectal suppository One Suppository per rectum PRN if Milk of Magnisia ineffective. Give on day 5 of no BM 1 sup 2024 Active 2024 75731 44776 1 Daily as needed Rectal False Fleet Enema 19 gram-7 gram/118 mL Administer per rectum PRN one time if dulcolax suppository not effective. Give on day 6 of no BM 1 2024 Active 2024 70852 25689 6 Daily as needed Rectal False Tylenol 325 mg tablet 2 tabs By Mouth Every 4 hours as needed For Fever >100 DO NOT EXCEED 3000 MG APAP/24 Hours 2 tabs 2024 Active 2024 81704 50393 0 Every 4 hours as needed By Mouth False Eliquis 5 mg tablet 5 mg By Mouth Twice daily For afib 5 mg 2024 Active 2024 42739 52299 1 Twice daily By Mouth False Ferrous sulfate 325 mg (65 mg iron) tablet [generic] 325 mg By Mouth Once daily For supplement 325 mg 2024 Active 2024 01207 59843 5 Once daily By Mouth False Magnesium oxide 400 mg (241.3 mg magnesium) tablet [generic] 400 mg By Mouth Once daily For supplement 400 mg 2024 Active 2024 43534 40329 2 Once daily By Mouth False Protonix 40 mg tablet,bozena yed release 40 mg By Mouth Once daily For GERD 40 mg 2024 Active 2024 82391 86935 1 Once daily By Mouth False Sotalol 120 mg tablet [generic] 120 mg By Mouth Twice daily For SVT 120 mg 2024 Active 2024 25136 67388 1 Twice daily By Mouth False Rosuvastati n 20 mg tablet [generic] 20 mg By Mouth Once daily For HLD 20 mg 2024 Active 2024 68814 50823 0 Once daily By Mouth False Arformotero l 15 mcg/2 mL solution for nebulizatio n [generic] 15 mcg Inhalation Twice daily For copd/asthma/ interstitial lung disease 15 mcg 06/20 Inactiv e 2024 67192 11783 0 Twice daily Inhala tion False Budesonide 0.5 mg/2 mL suspension for nebulizatio n [generic] 0.5 mg Inhalation Twice daily For copd/ asthma/ interstital lung disease 0.5 mg 2024 Active 2024 15538 04628 8 Twice daily Inhala tion False Furosemide 40 mg tablet [generic] 40 mg By Mouth Once daily For chronic diastolic CHF 40 mg 2024 Active 2024 40517 38286 0 Once daily By Mouth False Furosemide 40 mg tablet [generic] 40 mg By Mouth Once daily For chronic diastolic CHF 40 mg 2024 Active 2024 08804 20067 0 Once daily By Mouth False Ventolin HFA 90 mcg/actuati on aerosol inhaler 2 puff Inhalation Every 6 hours as needed For SOB/ wheeze 2 puff 2024 Active 2024 65147 68125 0 Every 6 hours as needed Inhala tion False Amitriptyli ne 25 mg tablet [generic] 25 mg By Mouth At bedtime For general anxiety disorder 25 mg 2024 Active 2024 72933 71787 1 At bedtime By Mouth False Levothyroxi ne 125 mcg tablet [generic] 125 mcg By Mouth Once daily For hypothyroidis m 125 mcg 2024 Active 2024 64614 61597 0 Once daily By Mouth False Arformotero l 15 mcg/2 mL solution for nebulizatio n [generic] 06/20 Inactiv e 2024 83736 51509 0 Arformotero l 15 mcg/2 mL solution for nebulizatio n [generic] 15 mcg Inhalation Twice daily For copd/asthma/ interstitial lung disease 15 mcg 2024 Active 2024 70225 41831 0 Twice daily Inhala tion False Betadine Swabsticks 10 % 1 scott Topical Twice daily to bilateral heels For stage 2 pressure injury 1 scott 2024 Active 2024 18867 81846 1 Twice daily Topica l False VITAL SIGNS Date Time Diastolic blood pressure Systolic blood pressure Body height Body weight Temperature SpO2 Blood Sugar Pulse Respirations 06826 102 09756 9 83.00 mm[Hg] - Lying Down 170.00 mm[Hg] - Lying Down 98.20 Forehead Scan 98.00 % 86.00/ min 18.00/min 46430 102 24595 4 83.00 mm[Hg] - Sitting 170.00 mm[Hg] - Sitting 98.20 Tympanic 86.00/ min 18.00/min 95962 103 38937 5 98.20 Tympanic 91158 103 96699 3 80.00 mm[Hg] - Lying Down 164.00 mm[Hg] - Lying Down 91.00/ min 20.00/min 48919 103 41857 7 91.00 % 20.00/min Immunizations Vaccine Date Status Other 06/20/2024 Completed
--- OUTSIDE RECORDS SUMMARY | 2024-07-19 23:12 | External Medical Summary | Continuity Of Care Document ---
Author Name Unknown Address [address] [address] Organization [facility] () Care Team Providers Care Glass Curvature Gauger Name Role Phone DO Lopez Amy Primary Care Provider [phone] Allergies Allergy Reaction Start Date End Date [...] APAP/24 Hours 2 tabs 2024 Active 2024 98335 56962 0 Every 4 hours as needed By Mouth False Dulcolax (bisacodyl) 10 mg rectal suppository One Suppository per rectum PRN if Milk of Magnisia ineffective. Give on day 5 of no BM 1 sup 2024 Active 2024 58867 93196 1 Daily as needed Rectal False Fleet Enema 19 gram-7 gram/118 mL Administer per rectum PRN one time if dulcolax suppository not effective. Give on day 6 of no BM 1 2024 Active 2024 29597 43597 6 Daily as needed Rectal False Tylenol 325 mg tablet 2 tabs By Mouth Every 4 hours as needed For Fever >100 DO NOT EXCEED 3000 MG APAP/24 Hours 2 tabs 2024 Active 2024 83761 93877 0 Every 4 hours as needed By Mouth False Eliquis 5 mg tablet 5 mg By Mouth Twice daily For afib 5 mg 2024 Active 2024 33667 45415 1 Twice daily By Mouth False Ferrous sulfate 325 mg (65 mg iron) tablet [generic] 325 mg By Mouth Once daily For supplement 325 mg 2024 Active 2024 56771 59682 5 Once daily By Mouth False Magnesium oxide 400 mg (241.3 mg magnesium) tablet [generic] 400 mg By Mouth Once daily For supplement 400 mg 2024 Active 2024 23731 75455 2 Once daily By Mouth False Protonix 40 mg tablet,bozena yed release 40 mg By Mouth Once daily For GERD 40 mg 2024 Active 2024 85479 75933 1 Once daily By Mouth False Sotalol 120 mg tablet [generic] 120 mg By Mouth Twice daily For SVT 120 mg 2024 Active 2024 79032 46597 1 Twice daily By Mouth False Rosuvastati n 20 mg tablet [generic] 20 mg By Mouth Once daily For HLD 20 mg 2024 Active 2024 19906 81438 0 Once daily By Mouth False Arformotero l 15 mcg/2 mL solution for nebulizatio n [generic] 15 mcg Inhalation Twice daily For copd/asthma/ interstitial lung disease 15 mcg 06/20 Inactiv e 2024 04941 94788 0 Twice daily Inhala tion False Budesonide 0.5 mg/2 mL suspension for nebulizatio n [generic] 0.5 mg Inhalation Twice daily For copd/ asthma/ interstital lung disease 0.5 mg 2024 Active 2024 67783 67748 8 Twice daily Inhala tion False Furosemide 40 mg tablet [generic] 40 mg By Mouth Once daily For chronic diastolic CHF 40 mg 2024 Active 2024 81672 41585 0 Once daily By Mouth False Furosemide 40 mg tablet [generic] 40 mg By Mouth Once daily For chronic diastolic CHF 40 mg 2024 Active 2024 64851 46489 0 Once daily By Mouth False Ventolin HFA 90 mcg/actuati on aerosol inhaler 2 puff Inhalation Every 6 hours as needed For SOB/ wheeze 2 puff 2024 Active 2024 11277 92881 0 Every 6 hours as needed Inhala tion False Amitriptyli ne 25 mg tablet [generic] 25 mg By Mouth At bedtime For general anxiety disorder 25 mg 2024 Active 2024 73252 14772 1 At bedtime By Mouth False Levothyroxi ne 125 mcg tablet [generic] 125 mcg By Mouth Once daily For hypothyroidis m 125 mcg 2024 Active 2024 42668 79884 0 Once daily By Mouth False Arformotero l 15 mcg/2 mL solution for nebulizatio n [generic] 06/20 Inactiv e 2024 38223 66795 0 Arformotero l 15 mcg/2 mL solution for nebulizatio n [generic] 15 mcg Inhalation Twice daily For copd/asthma/ interstitial lung disease 15 mcg 2024 Active 2024 92066 90366 0 Twice daily Inhala tion False
--- OUTSIDE RECORDS SUMMARY | 2024-07-19 23:12 | External Medical Summary | Continuity Of Care Document ---
Author Name Unknown Address [address] [address] Organization [facility] () Care Team Providers Care Automated Access Systems Technician Name Role Phone DO Lopez Amy Primary Care Provider [phone] Allergies Allergy Reaction Start Date End Date [...] Day 3 0.1 mL 06/23 Active 2024 72856 08724 0 At bedtime Intrad ermal False Tubersol 5 tub. unit/0.1 mL intradermal injection solution [Tuberculin PPD] 0.1mL Intradermal Once daily For PPD 2nd Step Give 2nd Step PPD Day 1 and Read results Day 3 (schedule 7 days after 1st READ) 0.1mL 07/03 Active 2024 33858 59448 0 Once daily Intrad ermal False Tylenol 325 mg tablet 2 tabs By Mouth Every 4 hours as needed For Pain DO NOT EXCEED 3000 MG APAP/24 Hours 2 tabs 2024 Active 2024 37670 08437 0 Every 4 hours as needed By Mouth False Dulcolax (bisacodyl) 10 mg rectal suppository One Suppository per rectum PRN if Milk of Magnisia ineffective. Give on day 5 of no BM 1 sup 2024 Active 2024 11714 62357 1 Daily as needed Rectal False Fleet Enema 19 gram-7 gram/118 mL Administer per rectum PRN one time if dulcolax suppository not effective. Give on day 6 of no BM 1 2024 Active 2024 28016 28286 6 Daily as needed Rectal False Tylenol 325 mg tablet 2 tabs By Mouth Every 4 hours as needed For Fever >100 DO NOT EXCEED 3000 MG APAP/24 Hours 2 tabs 2024 Active 2024 55737 02831 0 Every 4 hours as needed By Mouth False Eliquis 5 mg tablet 5 mg By Mouth Twice daily For afib 5 mg 2024 Active 2024 78106 09571 1 Twice daily By Mouth False Ferrous sulfate 325 mg (65 mg iron) tablet [generic] 325 mg By Mouth Once daily For supplement 325 mg 2024 Active 2024 10268 81251 5 Once daily By Mouth False Magnesium oxide 400 mg (241.3 mg magnesium) tablet [generic] 400 mg By Mouth Once daily For supplement 400 mg 2024 Active 2024 44666 63681 2 Once daily By Mouth False Protonix 40 mg tablet,bozena yed release 40 mg By Mouth Once daily For GERD 40 mg 2024 Active 2024 78320 10821 1 Once daily By Mouth False Sotalol 120 mg tablet [generic] 120 mg By Mouth Twice daily For SVT 120 mg 2024 Active 2024 40745 29427 1 Twice daily By Mouth False Rosuvastati n 20 mg tablet [generic] 20 mg By Mouth Once daily For HLD 20 mg 2024 Active 2024 69003 63062 0 Once daily By Mouth False Arformotero l 15 mcg/2 mL solution for nebulizatio n [generic] 15 mcg Inhalation Twice daily For copd/asthma/ interstitial lung disease 15 mcg 06/20 Inactiv e 2024 25833 74913 0 Twice daily Inhala tion False Budesonide 0.5 mg/2 mL suspension for nebulizatio n [generic] 0.5 mg Inhalation Twice daily For copd/ asthma/ interstital lung disease 0.5 mg 2024 Active 2024 15066 19805 8 Twice daily Inhala tion False Furosemide 40 mg tablet [generic] 40 mg By Mouth Once daily For chronic diastolic CHF 40 mg 2024 Active 2024 04192 84397 0 Once daily By Mouth False Furosemide 40 mg tablet [generic] 40 mg By Mouth Once daily For chronic diastolic CHF 40 mg 2024 Active 2024 45451 37908 0 Once daily By Mouth False Ventolin HFA 90 mcg/actuati on aerosol inhaler 2 puff Inhalation Every 6 hours as needed For SOB/ wheeze 2 puff 2024 Active 2024 75661 23992 0 Every 6 hours as needed Inhala tion False Amitriptyli ne 25 mg tablet [generic] 25 mg By Mouth At bedtime For general anxiety disorder 25 mg 2024 Active 2024 64621 49658 1 At bedtime By Mouth False Levothyroxi ne 125 mcg tablet [generic] 125 mcg By Mouth Once daily For hypothyroidis m 125 mcg 2024 Active 2024 55858 10937 0 Once daily By Mouth False Arformotero l 15 mcg/2 mL solution for nebulizatio n [generic] 06/20 Inactiv e 2024 06093 26262 0 Arformotero l 15 mcg/2 mL solution for nebulizatio n [generic] 15 mcg Inhalation Twice daily For copd/asthma/ interstitial lung disease 15 mcg 2024 Active 2024 73878 11022 0 Twice daily Inhala tion False Betadine Swabsticks 10 % 1 scott Topical Twice daily to bilateral heels For stage 2 pressure injury 1 scott 2024 Active 2024 67592 47924 1 Twice daily Topica l False VITAL SIGNS Date Time Diastolic blood pressure Systolic blood pressure Body height Body weight Temperature SpO2 Blood Sugar Pulse Respirations 24673 102 54816 9 83.00 mm[Hg] - Lying Down 170.00 mm[Hg] - Lying Down 98.20 Forehead Scan 98.00 % 86.00/ min 18.00/min
--- OUTSIDE RECORDS SUMMARY | 2024-07-19 23:12 | External Medical Summary | Summary of Care ---
Author Name Unknown Organization [facility] Address [address] [facility] [place] [address] Phone [phone] Care Team Providers Care Bleacher Pulp Name Role Phone Umair Gillis Primary Care Provider Reason for Referral * Precert (Diagnostic Medical) (Within 10 days (routine)) - Authorized Specialty Diagnoses / Procedures Referred By Contac t Referred To Contact Cardiac Studies Diagnoses Paroxysmal SVT (supraventricular tachycardia) (HCC) Procedures ECHO, COMPLETE (2D), TRANS-THORACIC Simona Wang MD [address] [id number] Phone: tel: fax: Referral ID Status Reason Start Date Expiration Date V isits Requested Visits Authorized [id number] Authorized Precert 05/24/2024 999 999 Reason for Visit * Reason Comments Acute Encounter Details Date Type Department Care Team (Late st Contact Info) Description 05/24/2024 10:00 AM EST Office Visit Family Practice [facility] [address] [id number] Simona Wang MD [address] [place] [address] [place] [id number] Paroxysmal SVT (supraventricular tachycardia) (HCC)*; Early satiety Allergies Active Allergy Reactions Criticality Noted Date Comments Amoxicillin 08/21/2002 shanon Clarithromycin Unknown 10/26/1999 Iodine 01/20/2004 anaphy Morphine Neuro complications (Please comment) 05/27/2003 shanon Cefdinir Other (Please comment) Medium 04/21/2016 Headache, restless Prednisone Unknown 06/16/2010 Propoxyphene Other (Please comment) 10/26/1999 "knocks me out" Propoxyphene Hcl 04/24/2000 change in mental status Pseudoephedrine Unknown 09/16/2009 Serotonin Reuptake Inhibitors (Ssris) 03/21/2001 Celexleyla nervousshanon documented as of this encounter (statuses as of 06/10/2024) Medications ASPIRIN 81 MG PO TABSIndications:ta kes 3x a week Take by mouth. Indications: takes 3x a week Active triamcinolone acetonide (ARISTOCORT) 0.1 % cream Apply topically to affected area 2 times a day. To affected area. 60 g 5 8 Active oxygen IN GASIndications:ILD (interstitial lung disease) (HCC),Moderate persistent asthma without complication,Chron ic respiratory failure with hypoxia (HCC) Use 2 LPM with exertion. 1 Each [...] PD, group C, by GOLD 2017 classification ([facility]),Chronic diastolic CHF (congestive heart failure) ([facility]),Moderate persistent asthma without complication Inhale 1 Puff by mouth every 4 hours as needed for Wheezing. 15 g 12 3 Active Ventolin HFA 108 (90 Base) MCG/ACT Inhalation Aerosol Solution Inhale 2 Puffs by mouth every 4 hours as needed for Wheezing. 18 g 3 3 Active Furosemide 40 MG Oral Tablet (Lasix)Indications :Chronic diastolic CHF (congestive heart failure) ([facility]) Take one tablet in the morning and one in the mid afternoon 60 Tablet 11 4 Active Budesonide 0.5 MG/2ML Inhalation Suspension (Pulmicort)Indicat ions:Moderate persistent asthma without complication,ILD (interstitial lung disease) ([facility]) Inhale 0.5 mg via nebulizer in the [...] as of this encounter (statuses as of 06/10/2024) Active Problems Problem Noted Date Diagnosed Date [...] as of this encounter (statuses as of 06/10/2024) Resolved Problems Problem Noted Date Diagnosed Date [...] as of this encounter (statuses as of 06/10/2024) Immunizations Name Administration Dates Next Due COVID-19 [...] 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 Not on file Not on file Not on file [employer]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 file Not on file [employer]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 file 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 Not on file Not on file documented as of this encounter Last Filed Vital Signs Vital Sign Reading Time Taken Comments Blood Pressure 140/88 05/24/2024 10:31 AM EST Pulse 77 05/24/2024 10:31 AM EST Temperature 36.1 C (96.9 F) 05/24/2024 10:[address] Respiratory Rate 17 05/24/2024 10:31 AM EST Oxygen Saturation 97% 05/24/2024 10:31 AM EST Inhaled Oxygen Concentration - - Weight 66.7 kg (147 lb 1.3 oz) 05/24/2024 10:31 AM EST Height - - Body Mass Index 31.88 04/04/2024 10:25 AM EDT documented in this encounter Progress Notes * Simona Wang MD - 05/24/2024 10:28 AM EST Subjective Chief Complaint Patient presents with Acute HPI: Leela Villanueva is a 83 year old female. Patient is accompanied by her . The followingissues were addressed today: Patient presents today with c/o "funny feeling" in her chest that has been going on for over a yearbut seems to be more frequent in the past few months. She describes it as a "quivering" sensation. It often wakes her from sleep. Seems to happen more at night but can occur during the day as well. Episodes can last up to 3 hours. She denies chest pain, worsening dyspnea, dizziness, or syncope. She had a similar complaint at her appointment with Dr. Mccoy earlier this year. She had a Zio patch that showed episodes of SVT, possible atrial tachycardia with variable block. It was recommended she follow-up with cardiology but she has not yet seen them. She has a scheduled appointment in June. Last echo was in 2020 and was overall unremarkable. She also mentions she has been feeling full after just a few bites of food. She also describes occasional bloating or a feeling of pressure in her lower abdomen/pelvis. Review of vitals shows drop inweight of 7lb in the past 8 months although she does not feel she has lost any weight. Review of Systems: See HPI Objective BP 140/88 | Pulse 77 | Temp 96.9 F (36.1 C) (Tympanic) | Resp 17 | Wt 147 lb 1.3 oz (66.7 kg) |SpO2 97% | BMI 31.88 kg/m | BSA 1.64 m Wt Readings from Last 10 Encounters: 05/24/24 147 lb 1.3 oz (66.7 kg) 05/24/24 147 lb 1.3 oz (66.7 kg) 04/30/24 147 lb 6.4 oz (66.9 kg) 04/11/24 147 lb 6.4 oz (66.9 kg) 04/04/24 147 lb (66.7 kg) 03/18/24 147 lb 8 oz (66.9 kg) 02/29/24 146 lb 0.6 oz (66.2 kg) 10/26/23 150 lb (68 kg) 10/16/23 151 lb (68.5 kg) 09/26/23 154 lb 9.6 oz (70.1 kg) BP Readings from Last 3 Encounters: 05/24/24 140/88 05/24/24 140/86 04/30/24 138/76 General: Well-appearing, no acute distress, nasal cannula in place Cardiovascular: Regular rate and rhythm, no murmur Respiratory: Good respiratory effort, breath sounds equal and clear to auscultation bilaterally Abdomen: Soft, non-distended, non-tender, normoactive bowel sounds Extremities: No edema Psychiatric: Appropriate mood and affect Assessment & Plan 1. Paroxysmal SVT (supraventricular tachycardia) (HCC) Encouraged to follow-up with cardiology, as previously recommended by Dr. Mccoy. Reviewed recent Zio patch results. Update TTE. - ECHO, COMPLETE (2D), TRANS-THORACIC; Future 2. Early satiety Check pelvic US given c/o bloating, early satiety, and weight loss - US PELVIS TRANS-VAGINAL NON-OB Return for follow-up as scheduled or sooner as needed. This note was electronically signed by Simona Wang MD I spent a total of 30-39 minutes (exact time 34 mins) on the date of service in preparation, delivery, and documentation of the care provided to Leela Collins Villanueva excluding any time spent in the performance of separately billed services or time spent by another provider/QHP. documented in this encounter Plan of Treatment Upcoming Encounters Date Type Department Care Team (Late st Contact Info) Description 07/10/2024 10:00 AM EST Office Visit Cardiology, [facility] [address] [facility] [address] [address] Rosemarie Beyer CRNP [address] [facility] [address] [address] 07/24/2024 12:50 PM EST Office Visit Dermatology [facility] [place] [address] [place] [address] Bela Nevarez PA-C [address] [place] [address] 10/09/2024 1:40 PM EDT Office Visit Pulmonary Medicine, [facility] [address] [facility] [address] [address] Jt Leon [facility] [address] [facility] [address] 12/04/2024 1:00 PM EDT Office Visit Family Practice [facility] [address] [facility] [place] [address] Umair Gillis, DO [address] [facility] [place] [address] Scheduled Procedures Name Priority Associated Diagnoses Date/Ti [...] this encounter Medical Devices Implanted Type Area Statement Clerks Manager Device Identifier Shelf Expiration Date Model / Serial / Lot Clip Quick 2.8mm 230cm - [id number] Implanted:Qty: 2 on 01/31/2019 by Rebecca Ayala DO at [facility] 06/18/2021 [id number] / documented as of this encounter Results * ECHO, COMPLETE (2D), TRANS-THORACIC (05/27/2024 10:43 AM EST) LEFT VENTRICULAR EJECTION FRACTION 60 % [facility] 05/27/2024 10:0 5 AM EST us Simona Wang MD ECHOCARDIOLOGY Final Result [facility] documented in this encounter Visit Diagnoses Diagnosis Paroxysmal SVT (supraventricular tachycardia) (HCC)- Primary Paroxysmal supraventricular tachycardia Early satiety documented in this encounter Care Teams Bleacher Pulp Relationship Specialty Start Date End Date Umair Gillis DO [address] [place] [address] PCP - General Family Medicine 12/16/16 documented as of this encounter
--- OUTSIDE RECORDS SUMMARY | 2024-07-19 23:12 | External Medical Summary | Continuity Of Care Document ---
Author Name Unknown Address [address] [address] Organization [facility] () Care Team Providers Care Runner On Name Role Phone DO Lopez Amy Primary Care Provider [phone] Allergies Allergy Reaction Start Date End Date [...] Day 3 0.1 mL 06/23 Active 2024 55134 48513 0 At bedtime Intrad ermal False Tubersol 5 tub. unit/0.1 mL intradermal injection solution [Tuberculin PPD] 0.1mL Intradermal Once daily For PPD 2nd Step Give 2nd Step PPD Day 1 and Read results Day 3 (schedule 7 days after 1st READ) 0.1mL 07/03 Active 2024 72012 32422 0 Once daily Intrad ermal False Tylenol 325 mg tablet 2 tabs By Mouth Every 4 hours as needed For Pain DO NOT EXCEED 3000 MG APAP/24 Hours 2 tabs 2024 Active 2024 95313 47456 0 Every 4 hours as needed By Mouth False Dulcolax (bisacodyl) 10 mg rectal suppository One Suppository per rectum PRN if Milk of Magnisia ineffective. Give on day 5 of no BM 1 sup 2024 Active 2024 56346 17345 1 Daily as needed Rectal False Fleet Enema 19 gram-7 gram/118 mL Administer per rectum PRN one time if dulcolax suppository not effective. Give on day 6 of no BM 1 2024 Active 2024 30946 58206 6 Daily as needed Rectal False Tylenol 325 mg tablet 2 tabs By Mouth Every 4 hours as needed For Fever >100 DO NOT EXCEED 3000 MG APAP/24 Hours 2 tabs 2024 Active 2024 51745 85129 0 Every 4 hours as needed By Mouth False Eliquis 5 mg tablet 5 mg By Mouth Twice daily For afib 5 mg 2024 Active 2024 20668 24835 1 Twice daily By Mouth False Ferrous sulfate 325 mg (65 mg iron) tablet [generic] 325 mg By Mouth Once daily For supplement 325 mg 2024 Active 2024 72853 13595 5 Once daily By Mouth False Magnesium oxide 400 mg (241.3 mg magnesium) tablet [generic] 400 mg By Mouth Once daily For supplement 400 mg 2024 Active 2024 50762 57209 2 Once daily By Mouth False Protonix 40 mg tablet,bozena yed release 40 mg By Mouth Once daily For GERD 40 mg 2024 Active 2024 96844 07778 1 Once daily By Mouth False Sotalol 120 mg tablet [generic] 120 mg By Mouth Twice daily For SVT 120 mg 2024 Active 2024 12738 47371 1 Twice daily By Mouth False Rosuvastati n 20 mg tablet [generic] 20 mg By Mouth Once daily For HLD 20 mg 2024 Active 2024 67356 64779 0 Once daily By Mouth False Arformotero l 15 mcg/2 mL solution for nebulizatio n [generic] 15 mcg Inhalation Twice daily For copd/asthma/ interstitial lung disease 15 mcg 06/20 Inactiv e 2024 60303 48846 0 Twice daily Inhala tion False Budesonide 0.5 mg/2 mL suspension for nebulizatio n [generic] 0.5 mg Inhalation Twice daily For copd/ asthma/ interstital lung disease 0.5 mg 2024 Active 2024 91462 87383 8 Twice daily Inhala tion False Furosemide 40 mg tablet [generic] 40 mg By Mouth Once daily For chronic diastolic CHF 40 mg 2024 Active 2024 48623 24638 0 Once daily By Mouth False Furosemide 40 mg tablet [generic] 40 mg By Mouth Once daily For chronic diastolic CHF 40 mg 2024 Active 2024 93643 10532 0 Once daily By Mouth False Ventolin HFA 90 mcg/actuati on aerosol inhaler 2 puff Inhalation Every 6 hours as needed For SOB/ wheeze 2 puff 2024 Active 2024 48127 53795 0 Every 6 hours as needed Inhala tion False Amitriptyli ne 25 mg tablet [generic] 25 mg By Mouth At bedtime For general anxiety disorder 25 mg 2024 Active 2024 01829 14050 1 At bedtime By Mouth False Levothyroxi ne 125 mcg tablet [generic] 125 mcg By Mouth Once daily For hypothyroidis m 125 mcg 2024 Active 2024 71241 08774 0 Once daily By Mouth False Arformotero l 15 mcg/2 mL solution for nebulizatio n [generic] 06/20 Inactiv e 2024 97556 24901 0 Arformotero l 15 mcg/2 mL solution for nebulizatio n [generic] 15 mcg Inhalation Twice daily For copd/asthma/ interstitial lung disease 15 mcg 2024 Active 2024 64834 40831 0 Twice daily Inhala tion False Betadine Swabsticks 10 % 1 scott Topical Twice daily to bilateral heels For stage 2 pressure injury 1 scott 2024 Active 2024 39226 84473 1 Twice daily Topica l False VITAL SIGNS Date Time Diastolic blood pressure Systolic blood pressure Body height Body weight Temperature SpO2 Blood Sugar Pulse Respirations 08347 102 05809 9 83.00 mm[Hg] - Lying Down 170.00 mm[Hg] - Lying Down 98.20 Forehead Scan 98.00 % 86.00/ min 18.00/min
--- OUTSIDE RECORDS SUMMARY | 2024-07-19 23:12 | External Medical Summary | Continuity Of Care Document ---
Author Name Unknown Address [address] [address] Organization [facility] () Care Team Providers Care Flatwork Feeder Name Role Phone DO Lopez Amy Primary Care Provider [phone] Allergies Allergy Reaction Start Date End Date [...] APAP/24 Hours 2 tabs 2024 Active 2024 78810 97492 0 Every 4 hours as needed By Mouth False Dulcolax (bisacodyl) 10 mg rectal suppository One Suppository per rectum PRN if Milk of Magnisia ineffective. Give on day 5 of no BM 1 sup 2024 Active 2024 77118 86044 1 Daily as needed Rectal False Fleet Enema 19 gram-7 gram/118 mL Administer per rectum PRN one time if dulcolax suppository not effective. Give on day 6 of no BM 1 2024 Active 2024 25193 78136 6 Daily as needed Rectal False Tylenol 325 mg tablet 2 tabs By Mouth Every 4 hours as needed For Fever >100 DO NOT EXCEED 3000 MG APAP/24 Hours 2 tabs 2024 /0000 Active 2024 06357 87315 0 Every 4 hours as needed By Mouth False
--- OUTSIDE RECORDS SUMMARY | 2024-07-19 23:12 | External Medical Summary | Continuity Of Care Document ---
Author Name Unknown Address [address] [address] Organization [facility] () Care Team Providers Care Aluminum Siding Installer Name Role Phone DO Lopez Amy Primary Care Provider [phone] Medications Medication Instructions Dosage Start Date End Date Status Order Date Drug Code Frequency Route of Admin Diagnosis Code Substitutions Allowed Tylenol 325 mg tablet 2 tabs By Mouth Every 4 hours as needed For Pain DO NOT EXCEED 3000 MG APAP/24 Hours 2 tabs 2024 Active 2024 00237 65413 0 Every 4 hours as needed By Mouth False Dulcolax (bisacodyl) 10 mg rectal suppository One Suppository per rectum PRN if Milk of Magnisia ineffective. Give on day 5 of no BM 1 sup 2024 Active 2024 09796 89362 1 Daily as needed Rectal False Fleet Enema 19 gram-7 gram/118 mL Administer per rectum PRN one time if dulcolax suppository not effective. Give on day 6 of no BM 1 2024 Active 2024 40085 84159 6 Daily as needed Rectal False
[2024-07-20] MEDS ORDERED: guaiFENesin SUGAR FREE 100 MG/5 ML UDC PO PRN (01:39)
[2024-07-20] MEDS: guaiFENesin/DEXTROM SYRUP 100MG/10MG 5ML UDC PO PRN (02:33)
[2024-07-20] MEDS: LEVOTHYROXINE SODIUM 125 MCG TABLET PO SCH (06:18)
[2024-07-20 08:03] LABS: BUN Creatinine Ratio 10.2 (10-20); C Reactive Protein 2.03 mg/dl (0-0.5); Calcium 8.2 mg/dl (8.6-10.3); Magnesium 1.6 mg/dl (1.7-2.4); Phosphorus 2.9 mg/dl (2.5-4.9); Potassium 3.7 mmol/L (3.5-5.1)
[2024-07-20 08:18] LABS: Thyroid Stimulating Hormone 3.367 uIu/ml (0.300-4.500)
--- NOTE | 2024-07-20 09:02 | Gastrointestinal Consultation ---
Date of Consultation July 20, 2024 Assessment & Plan (1) Early satiety: Patient with early satiety without other symptoms. She is not on typical medications to cause gastric distress. Agree EGD will be helpful but she is on Eliquis and this is not an emergent procedure. The earliest she can be done is Monday. Would go ahead and feed her and I will set her up for monday. History of Present Illness Reason for Consultation: early satiety Attending Physician: Mark Issa DO History of Present Illness 83 year old female I am asked to see for EGD for early satiety. Patient admitted for that problem. She is unable to give me any helpful history. Apparently in the hospital recently for cardiac issues and then in rehab. Family reports she is not eating or drinking much. Has seen Chapin RAMIREZ and is set up for EGD on Aug 01 but family does not think she can wait that long. She is on eliquis for afib/flutter. Allergies Allergy/AdvReac Type Severity Reaction Status Date / Time iodine Allergy Severe ORAL AND Verified 06/09/24 21:04 FACIAL SWELLING methadone Allergy Severe Shakiness Verified 06/09/24 21:04 propoxyphene Allergy Severe Shakiness Verified 06/09/24 21:04 shellfish derived Allergy Severe ORAL AND Verified 06/09/24 21:04 FACIAL SWELLING clarithromycin Allergy Unknown unknown Verified 06/09/24 21:04 prednisone Allergy Unknown Shakiness Verified 06/09/24 21:04 Serotonin 5HT-3 Antagonists Allergy Unknown Anxiety Verified 06/09/24 21:04 morphine AdvReac Unknown LIGHTHEADED Verified 06/09/24 21:04 Home Medications Medication Instructions Recorded Confirmed Type albuterol sulfate 90 mcg/actuation 2 puff inhalation Q6H PRN 06/09/24 07/19/24 History aerosol inhaler (Ventolin HFA) Shortness Of Breath Or Wheezing amitriptyline 25 mg tablet 25 mg PO HS 06/09/24 07/19/24 History arformoterol 15 mcg/2 mL solution 15 mcg inhalation BID 06/09/24 07/19/24 History for nebulization budesonide 0.5 mg/2 mL suspension 0.5 mg inhalation BID 06/09/24 07/19/24 History for nebulization clonazepam 0.5 mg tablet 0.25 mg PO Q6H PRN Anxiety 06/09/24 07/19/24 History furosemide 40 mg tablet 40 mg PO UD 06/09/24 07/19/24 History levothyroxine 125 mcg tablet 125 mcg PO DAILY 06/09/24 07/19/24 History apixaban 5 mg tablet (Eliquis) 5 mg PO BID 30 days #60 tabs 06/20/24 07/19/24 Rx ferrous sulfate 325 mg (65 mg 325 mg PO QAM 30 days #30 tabs 06/20/24 07/19/24 Rx iron) tablet,delayed release magnesium oxide 400 mg (241.3 mg 400 mg PO QAM 30 days #30 tabs 06/20/24 07/19/24 Rx magnesium) tablet pantoprazole 40 mg tablet,delayed 40 mg PO DAILY 30 days #30 tabs 06/20/24 07/19/24 Rx release rosuvastatin 20 mg tablet 20 mg PO DAILY 30 days #30 tabs 06/20/24 07/19/24 Rx sotalol 80 mg tablet 120 mg (1.5 x 80 mg) PO BID 30 06/20/24 07/19/24 Rx days #90 tabs Patient History Medical History Dyslipidemia Chronic heart failure with perserved EF SOB (shortness of breath) Multifactorial per pulmonary- chronic HF, chronic hypoxic respiratory failure, possible ILD, asthma, obesity, Covid infection 07/2020, multifocal consolidations/scarring, non allergic rhinitis History of pneumonia 12/2020 - required cont oxygen upon d/c from hospital and remains on Fear of needles Limb alert care status LUE Difficult intravenous access required assistance from IV team in past History of COVID-19 06/2020; asymptomatic Sleep apnea unable to tolerate CPAP History of home oxygen therapy 2 lpm cont- secondary to chronic hypoxic respiratory failure per pulm Tachycardia ANXIETY RELATED PER PATIENT. follows with Dr. Arguello Breast cancer Left breast 2001- sx + radiation GERD (gastroesophageal reflux disease) Hypothyroidism Anxiety Hx of deep venous thrombosis LLE - "years ago" - r/t injury Asthma Follows with Dr. Geiger S. Uses PRN neb daily Surgical History History of lumpectomy of left breast History of breast biopsy History of removal of cyst History of bilateral tubal ligation History of arthroscopy BILAT KNEES History of esophagogastroduodenoscopy (EGD) History of colonoscopy Hx of hernia repair History of cholecystectomy Social History Smoking Status: Never smoker Second Hand Exposure: Yes (sister smokes); Do You Dip or Chew Tobacco: No; Hx Alcohol Use: No Hx Substance Use: No Preferred Language: Mauritian Communication Ability: Impaired Communication Ability Comment: extremely [place], no hearing aids. 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: No Beliefs That Will Affect Care: None Current Living Situation: Spouse Other Information That Helps Us Care for You: No Feels Safe at Home: Yes Safety Concerns: Feels Safe At This Time Assistive Devices: Oxygen - Continuous Assistive Devices Comment: dentures not with pt Review of Systems Review of Systems: Unobtainable due to cognitive status Physical Exam Physical Exam: Pleasant but not able to give helpful history Constitutional: WD/WN, vitals as above Neck: trachea midline, no thyromegaly Respiratory: normal respiratory effort, lungs clear to auscultation Cardiovascular: RRR, no murmur, no edema Gastrointestinal (Abdomen): normal bowel sounds, soft, nontender, no hepatosplenomegaly Results & Data Vital Signs (Past 12 Hours) Vital Signs Temp Pulse Pulse Resp BP Pulse Ox O2 Del Method 07/20/24 08:15 36.7 C 79 16 146/83 H 99 Nasal Cannula 07/20/24 07:37 83 16 90 Nasal Cannula 07/19/24 21:55 64 16 99 Nasal Cannula O2 Flow Rate 07/20/24 08:15 2 07/20/24 07:37 2 07/19/24 21:55 2 Laboratory Results 07/20/24 07/19/24 07/19/24 Range/Units 07:21 20:15 14:18 WBC 8.78 (4.8-10.8) K/ul RBC 3.67 L (4.20-5.40) M/uL Hgb 10.7 L (12.0-16.0) g/dl Hct 31.9 L (37.0-47.0) % MCV 86.9 (80.0-100.0) fL MCH 29.2 (25.0-34.0) pg MCHC 33.5 (32.0-36.0) g/dL RDW Std Deviation 45.2 (36.4-46.3) fL RDW Coeff of Neena 14.3 (11.5-14.5) % Plt Count 161 (130-400) K/uL MPV 11.6 (9.4-12.4) fL Immature Gran % (Auto) 0.2 % Neut % (Auto) 74.2 % Lymph % (Auto) 18.8 % Randall % (Auto) 5.7 % Eos % (Auto) 0.8 % Baso % (Auto) 0.3 % Neut # (Auto) 6.51 H (1.40-6.50) K/uL Lymph # (Auto) 1.65 (1.20-3.40) K/uL Randall # (Auto) 0.50 (0.11-0.59) K/uL Eos # (Auto) 0.07 (0.00-0.50) K/uL Baso # (Auto) 0.03 (0.00-0.20) K/uL Immature Gran # (Auto) 0.02 (0.01-0.20) K/uL Sodium 144 140 (136-145) mmol/L Potassium 3.7 4.1 (3.5-5.1) mmol/L Chloride 102 99 (98-107) mmol/L Carbon Dioxide 39 H 37 H (21-32) mmol/L Anion Gap 3 4 (3-11) BUN 12 17 (6-23) mg/dl Creatinine 1.18 1.19 (0.6-1.2) mg/dl Est Cr Clr Drug Dosing 28.0 Not Reportable eGFR 46.40 45.94 BUN/Creatinine Ratio 10.2 14.3 (10-20) Glucose 75 133 H (70-99(Fasting)) mg/dl Calcium 8.2 L 8.3 L (8.6-10.3) mg/dl Phosphorus 2.9 (2.5-4.9) mg/dl Magnesium 1.6 L (1.7-2.4) mg/dl Total Bilirubin 0.4 (0.2-1.0) mg/dl AST 32 (13-39) U/L ALT 41 (7-52) U/L Alkaline Phosphatase 87 (34-104) U/L C-Reactive Protein 2.03 H (0-0.5) mg/dl Total Protein 6.2 (6.0-8.3) gm/dl Albumin 3.3 L (3.4-5.0) gm/dl Globulin 2.9 (2.5-4.0) gm/dl Albumin/Globulin Ratio 1.1 (0.9-2) TSH 3.367 (0.300-4.500) uIu/ml Urine Color Yellow Urine Appearance Clear (Clear) Urine pH 5.5 (4.5-7.5) Ur Specific [place] 1.006 (1.000-1.030) Urine Protein Trace H (Negative) Urine Glucose (UA) Negative (Negative) Urine Ketones Negative (Negative) Urine Blood 1+ H (Negative) Urine Nitrite Negative (Negative) Urine Bilirubin Negative (Negative) Urine Urobilinogen Negative (Negative) Ur Leukocyte Esterase 1+ H (Negative) Urine WBC (Auto) 6-10 H (0-5) /hpf Urine RBC (Auto) 0-2 (0-2) /hpf U Hyaline Cast (Auto) 3-5 H (0-2) /lpf U Epithel Cells (Auto) 3-5 H (0-2) /hpf Urine Bacteria (Auto) None Seen (None Seen) Diagnostic Findings Chest X-Ray 07/19/24 13:32 XR chest 1V not portable CLINICAL HISTORY: pneumonia COMPARISON STUDY: 06/19/2024 FINDINGS: Stable mild cardiomegaly without pulmonary vascular congestion. There is mild stranding [place] in the lung bases, improved. No other consolidation or pleural effusion. No pneumothorax. IMPRESSION: Atelectasis or mild persistent pneumonia in the lung bases, improved. ACT 112: Negative or not required by law. Electronically signed by: Nestor Cordova M.D. 07/19/2024 3:04 PM
[2024-07-20] MEDS: ROSUVASTATIN CALCIUM 20 MG TAB PO SCH (09:03)
[2024-07-20] MEDS: PANTOprazole 40 MG TAB PO SCH (09:03)
--- NOTE | 2024-07-20 09:31 | Hospitalist Progress Note ---
<Statement entered by Mark Issa, - 07/20/24 12:14> I have seen and examined the patient and have discussed the case with the advance practice provider. I have reviewed the advanced practitioner's documentation, and I agree with, and take responsibility for that plan of care. Communicated with GI team. No plans for EGD today. Requesting hold Eliquis for possible EGD on Monday and the ability to then do biopsies if necessary. Further plan of care as outlined below I spent a total of 15 minutes coordinating, documenting, and providing care for this patient excluding time spent by another provider/Q. Date of Service July 20, 2024 Assessment & Plan (1) Adult failure to thrive: (2) Early satiety: (3) Unintentional weight loss: (4) Hypothyroidism (acquired): (5) Interstitial lung disease: (6) Chronic hypoxic respiratory failure, on home oxygen therapy: (7) Paroxysmal atrial flutter: (8) Chronic anticoagulation: Plan This is an 83-year-old female who has significant past medical history of chronic respiratory failure with hypoxia, COPD, ILD, PAF anticoagulated on Eliquis and on sotalol therapy, chronic HFpEF, HLD, hypothyroidism, GERD and anxiety who was brought to the ED secondary to complaints of early satiety, unintentional weight loss and failure to thrive in the setting. Recent hospitalization in May secondary to atrial fibrillation/flutter in which she underwent cardioversion and has since remained in sinus rhythm. During that time there was also noted to be some issues with swallowing. He video swallow was done that did not show any significant aspiration and speech recommended an easy to chew diet. From there patient was discharged to a rehab facility. While at the rehab facility she was readmitted to a [facility] facility secondary to pneumonia. Again during that hospitalization had complaints of swallowing/early satiety. It was recommended she see a GI provider as an outpatient. From that hospitalization she was discharged home. She has been home for approximately 1 week. She was recently seen in the outpatient GI setting at [facility] on 07/16/2024 and had a planned outpatient EGD on August 01. Family was concerned that patient would not make it to that EGD due to poor intake and therefore was brought to our facility. #Early satiety #Failure to thrive currently admitted to medical continue gentle IV fluid to complete today she was seen and evaluated by gastroenterology and undergo an EGD on Monday, her Eliquis is currently on hold I will replace magnesium and potassium today to keep greater than 2.0 and 4.0 respectively in setting of her A-fib history of significant she previously was seen by speech therapy and underwent video swallow in which there was no signs of aspiration, will await further workup with EGD Remeron was added to regimen for appetite stimulation per family it was reported that patient has lost 30 pounds in the last few months #Chronic hypoxic respiratory failure in setting of COPD and ILD continue inhaled budesonide and performance, as scheduled DuoNebs currently at her baseline O2 requirement #PAF: chronic, NSR, eliquis on hold for procedure, continue sotalol, replace Mag and K to keep > 2.0 and 4.0 DVT ppx: SCDS for now, eliquis on hold FULL CODE PCP: Dispo: to remain hospitalized through Monday until she has EGD Pt was seen and examined in collaboration with Dr. Issa, please see addendum I spent a total of 54 minutes coordinating, documenting and providing care for this patient excluding time spent in the performance of separately billed services or time spent by another provider/QHP. Discussed case with pts Son Marino Villanueva, and he agrees with current condition and assessment and tx plan. Admission and Anticipated Discharge Date Admission Date: July 19, 2024 Subjective Seen in room 387-2. She reports no concerns. Nurse at bedside concerned that pt is a high fall risk because she isn't following directions to ring. Pt [place]. Denies pain, f/c/s, chest pain, sob, n/v. Review of Systems 2 Review of Systems: All systems reviewed & are unremarkable except as noted in HPI & below Physical Exam Physical Exam: Gen: elderly, F, chronically ill F, sitting at bedside, [place], A&O x3 HEENT: Normocephalic, atraumatic, conjunctivae moist, sclerae anicteric, mucous membranes dry Lung: Clear to Auscultation bilaterally, with exp wheezing throughout, no rales/rhonchi Heart: RRR Abdomen: Soft, NT, ND +BS x 4 Extremities: No edema Skin: Warm, no rash, negative turgor. Results & Data Results & Data Vital Signs (Past 12 Hours) Vital Signs Temp Pulse Pulse Resp BP Pulse Ox O2 Del Method 07/20/24 08:15 36.7 C 79 16 146/83 H 99 Nasal Cannula 07/20/24 07:37 83 16 90 Nasal Cannula 07/19/24 21:55 64 16 99 Nasal Cannula O2 Flow Rate 07/20/24 08:15 2 07/20/24 07:37 2 07/19/24 21:55 2 Laboratory Results Short CBC 07/19/24 Range/Units 14:18 WBC 8.78 (4.8-10.8) K/ul Hgb 10.7 L (12.0-16.0) g/dl Hct 31.9 L (37.0-47.0) % Plt Count 161 (130-400) K/uL BMP 07/19/24 07/20/24 14:18 07:21 Sodium 140 144 Potassium 4.1 3.7 Chloride 99 102 Carbon Dioxide 37 H 39 H BUN 17 12 Creatinine 1.19 1.18 Glucose 133 H 75 Calcium 8.3 L 8.2 L Liver Function 07/19/24 Range/Units 14:18 Total Bilirubin 0.4 (0.2-1.0) mg/dl AST 32 (13-39) U/L ALT 41 (7-52) U/L Alkaline Phosphatase 87 (34-104) U/L Albumin 3.3 L (3.4-5.0) gm/dl Urine 07/19/24 Range/Units 20:15 Urine Color Yellow Urine Appearance Clear (Clear) Urine pH 5.5 (4.5-7.5) Ur Specific [place] 1.006 (1.000-1.030) Urine Protein Trace H (Negative) Urine Glucose (UA) Negative (Negative) I have independently reviewed and interpreted patient's cbc, bmp, mag Medications Administered Current Inpatient Medications Acetaminophen (Acetaminophen 325 Mg Tab) 650 mg PO Q4H PRN PRN Reason: pain/fever Stop: 08/18/24 19:25 Al Hydrox/Mg Hydrox/Simethicone (Aluminum/Magnesium Susp 30 Ml Udc) 30 ml PO Q6H PRN PRN Reason: Dyspepsia Stop: 08/18/24 19:25 Albuterol (Albuterol Hfa 8 Gm Inhaler) 2 puffs INH Q6H PRN PRN Reason: Shortness Of Breath Or Wheezing Stop: 08/18/24 19:25 Albuterol (Albut/Ipratrop 3mg/0.5mg Neb 3 Ml Vial) 3 ml NEB TIDR [facility]; Protocol Stop: 08/19/24 12:59 Apixaban (Apixaban 5 Mg Tablet) 5 mg PO BID [facility] Stop: 08/18/24 20:59 Last Admin: 07/19/24 20:39 Dose: 5 mg Budesonide (Budesonide 0.5 Mg/2 Ml Vial (Pulmicort)) 0.5 mg INH BID [facility] Stop: 08/18/24 20:59 Last Admin: 07/20/24 07:18 Dose: 0.5 mg Clonazepam (Clonazepam 0.5 Mg Tab) 0.25 mg PO Q6H PRN PRN Reason: Anxiety Stop: 08/18/24 19:25 Formoterol Fumarate (Formoterol 20 Mcg/2 Ml Vial) 20 mcg INH BID [facility] Stop: 08/18/24 20:59 Last Admin: 07/20/24 07:18 Dose: 20 mcg Guaifenesin/Dextromethorphan (Guaifenesin/Dextrom Syrup 100mg/10mg 5ml Udc) 5 ml PO Q6H PRN PRN Reason: Cough Stop: 08/19/24 01:38 Last Admin: 07/20/24 02:33 Dose: 5 ml Sodium Chloride (1/2 Nss) 1,000 mls @ 80 mls/hr IV .[id number] [facility] Stop: 07/20/24 19:25 Last Admin: 07/20/24 09:02 Dose: 80 mls/hr Magnesium Sulfate/Dextrose (Magnesium Sulfate / D5w) 1 gm in 100 mls @ 50 mls/hr IV Q2H [facility] Stop: 07/20/24 15:44 Levothyroxine Sodium (Levothyroxine Sodium 125 Mcg Tablet) 125 mcg PO DAILYBB [facility] Stop: 08/19/24 06:29 Last Admin: 07/20/24 06:18 Dose: Not Given Metoclopramide HCl (Metoclopramide Hcl Inj 5 Mg/Ml 2 Ml Vial) 10 mg IV Q6H PRN PRN Reason: Nausea Stop: 08/18/24 19:25 Mirtazapine (Mirtazapine Tab 15 Mg Tab) 30 mg PO HS [facility] Stop: 08/18/24 20:59 Last Admin: 07/19/24 20:39 Dose: 30 mg Ondansetron HCl (Ondansetron Inj 2 Mg/Ml 2 Ml Vial) 4 mg IV Q6H PRN PRN Reason: Nausea Stop: 08/18/24 19:25 Pantoprazole Sodium (Pantoprazole 40 Mg Tab) 40 mg PO DAILY [facility] Stop: 08/19/24 08:59 Last Admin: 07/20/24 09:03 Dose: 40 mg Polyethylene Glycol (Polyethylene (Miralax) 17 Gm Pack) 17 gm PO DAILY PRN PRN Reason: Constipation Stop: 08/18/24 19:25 Potassium Chloride (Potassium Chloride 10 Meq Tabcr) 30 meq PO NOW STA Stop: 07/20/24 11:36 Rosuvastatin Calcium (Rosuvastatin Calcium 20 Mg Tab) 20 mg PO DAILY [facility] Stop: 08/19/24 08:59 Last Admin: 07/20/24 09:03 Dose: 20 mg Sotalol HCl (Sotalol Hcl 80 Mg Tab) 120 mg PO BID [facility] Stop: 08/18/24 20:59 Last Admin: 07/20/24 09:04 Dose: 120 mg
[2024-07-20] MEDS: MAGNESIUM SULFATE / D5W 1 GM/100 ML BAG IV SCH (11:48)
[2024-07-20] MEDS: POTASSIUM CHLORIDE 10 MEQ TABCR PO STA (11:48)
[2024-07-20] MEDS: ALBUT/IPRATROP 3MG/0.5MG NEB 3 ML VIAL NEB SCH (14:01)
[2024-07-20] MEDS: ACETAMINOPHEN 325 MG TAB PO PRN (22:09)
[2024-07-21 07:34] LABS: Hematocrit (blood only) 28.2 % (37.0-47.0); Hemoglobin 9.2 g/dl (12.0-16.0); Mean Corpuscular Hemoglobin 28.5 pg (25.0-34.0); Mean Corpuscular Hgb Conc 32.6 g/dL (32.0-36.0); Mean Corpuscular Volume 87.3 fL (80.0-100.0); Mean Platelet Volume 11.3 fL (9.4-12.4); Platelet Count 140 K/uL (130-400); RDW Coefficient of Variation 14.4 % (11.5-14.5); RDW Standard Deviation 45.3 fL (36.4-46.3); Red Blood Count 3.23 M/uL (4.20-5.40); White Blood Count 5.92 K/ul (4.8-10.8)
[2024-07-21 07:51] LABS: BUN Creatinine Ratio 9.3 (10-20); Calcium 8.1 mg/dl (8.6-10.3); Magnesium 2.2 mg/dl (1.7-2.4)
--- NOTE | 2024-07-21 09:36 | Gastroenterology Progress Note ---
Date of Service July 21, 2024 Assessment & Plan (1) Early satiety: Plan: I am not certain if she heard me but she did repeat about looking in her stomach and going to sleep. Will plan to do EGD tomorrow Admission and Anticipated Discharge Date Admission Date: July 19, 2024 Subjective Difficult to communicate due to severe problems with hearing but finally says she is good with EGD tomorrow Physical Exam Physical Exam: Pleasant Constitutional: WD/WN, vitals as above Results & Data Vital Signs (Past 12 Hours) Vital Signs Temp Pulse Resp BP Pulse Ox O2 Del Method O2 Flow Rate 07/21/24 07:26 60 16 98 Nasal Cannula 2 07/21/24 07:19 36.4 C L 59 L 16 132/80 98 Nasal Cannula 2 07/20/24 22:00 Nasal Cannula 2
--- NOTE | 2024-07-21 10:33 | Hospitalist Progress Note ---
Date of Service July 21, 2024 Assessment & Plan (1) Adult failure to thrive: (2) Early satiety: (3) Unintentional weight loss: (4) Hypothyroidism (acquired): (5) Interstitial lung disease: (6) Chronic hypoxic respiratory failure, on home oxygen therapy: (7) Paroxysmal atrial flutter: (8) Chronic anticoagulation: Plan This is an 83-year-old female who has significant past medical history of chronic respiratory failure with hypoxia, COPD, ILD, PAF anticoagulated on Eliquis and on sotalol therapy, chronic HFpEF, HLD, hypothyroidism, GERD and anxiety who was brought to the ED secondary to complaints of early satiety, unintentional weight loss and failure to thrive in the setting. Recent hospitalization in May secondary to atrial fibrillation/flutter in which she underwent cardioversion and has since remained in sinus rhythm. During that time there was also noted to be some issues with swallowing. He video swallow was done that did not show any significant aspiration and speech recommended an easy to chew diet. From there patient was discharged to a rehab facility. While at the rehab facility she was readmitted to a [facility] facility secondary to pneumonia. Again during that hospitalization had complaints of swallowing/early satiety. It was recommended she see a GI provider as an outpatient. From that hospitalization she was discharged home. She has been home for approximately 1 week. She was recently seen in the outpatient GI setting at [facility] on 07/16/2024 and had a planned outpatient EGD on August 01. Family was concerned that patient would not make it to that EGD due to poor intake and therefore was brought to our facility. #Early satiety #Failure to thrive currently admitted to medical completed gentle IVF x 24hrs she was seen and evaluated by gastroenterology and undergo an EGD on Monday, her Eliquis is currently on hold mag and K replaced, acceptable today of significant she previously was seen by speech therapy and underwent video swallow in which there was no signs of aspiration, will await further workup with EGD Remeron was added to regimen for appetite stimulation per family it was reported that patient has lost 30 pounds in the last few months #Chronic hypoxic respiratory failure in setting of COPD and ILD, chronic hypercarbia continue inhaled budesonide and performance, as scheduled DuoNebs currently at her baseline O2 requirement #PAF: chronic, NSR, eliquis on hold for procedure, continue sotalol, replace Mag and K to keep > 2.0 and 4.0 #Anemia: normal hgb in May, anemia panel at the time normal. no s/sx of bleeding. EGD for tomorrow and eliquis on hold. monitor hgb closely, repeat anemia panel in a.m., may be partially dilutional vs nutritional given weight loss DVT ppx: SCDS for now, eliquis on hold FULL CODE PCP: Ruth Gillis Dispo: to remain hospitalized through Monday until she has EGD Pt was seen and examined in collaboration with Dr. Issa, please see addendum I spent a total of 45 minutes coordinating, documenting and providing care for this patient excluding time spent in the performance of separately billed services or time spent by another provider/QHP. Discussed case with pts Son Marino Villanueva, and he agrees with current condition and assessment and tx plan. Admission and Anticipated Discharge Date Admission Date: July 19, 2024 Subjective Pt resting comfortably in bed. She reports being very tired. Denies f/c/s, chest pain, sob, n/v. Denies melena. Review of Systems Review of Systems: All systems reviewed & are unremarkable except as noted in HPI & below Physical Exam Physical Exam: Gen: elderly, F, chronically ill F, sitting at bedside, EKWOK, A&O x2-3 basics HEENT: Normocephalic, atraumatic, conjunctivae moist, sclerae anicteric, mucous membranes dry Lung: Clear to Auscultation bilaterally, diminished at bases no wheezing today, no rales/rhonchi Heart: RRR Abdomen: Soft, NT, ND +BS x 4 Extremities: No edema Skin: Warm, no rash, negative turgor. Results & Data Results & Data Vital Signs (Past 12 Hours) Vital Signs Temp Pulse Resp BP Pulse Ox O2 Del Method O2 Flow Rate 07/21/24 09:00 64 20 128/70 96 Room Air 07/21/24 07:30 Nasal Cannula 2 07/21/24 07:26 60 16 98 Nasal Cannula 2 07/21/24 07:19 36.4 C L 59 L 16 132/80 98 Nasal Cannula 2 Laboratory Results I have independently reviewed and interpreted patient's cbc,bmp, mag Short CBC 02/02/25 Range/Units 06:22 WBC 5.92 (4.8-10.8) K/ul Hgb 9.2 L (12.0-16.0) g/dl Hct 28.2 L (37.0-47.0) % Plt Count 140 (130-400) K/uL [facility] 07/21/24 06:22 Sodium 144 Potassium 4.0 Chloride 103 Carbon Dioxide 41 H* BUN 11 Creatinine 1.18 Glucose 84 Calcium 8.1 L Medications Administered Current Inpatient Medications Acetaminophen (Acetaminophen 325 Mg Tab) 650 mg PO Q4H PRN PRN Reason: pain/fever Stop: 08/18/24 19:25 Last Admin: 07/20/24 22:09 Dose: 650 mg Al Hydrox/Mg Hydrox/Simethicone (Aluminum/Magnesium Susp 30 Ml Udc) 30 ml PO Q6H PRN PRN Reason: Dyspepsia Stop: 08/18/24 19:25 Albuterol (Albuterol Hfa 8 Gm Inhaler) 2 puffs INH Q6H PRN PRN Reason: Shortness Of Breath Or Wheezing Stop: 08/18/24 19:25 Albuterol (Albut/Ipratrop 3mg/0.5mg Neb 3 Ml Vial) 3 ml NEB TIDR [facility]; Protocol Stop: 08/19/24 12:59 Last Admin: 07/21/24 07:26 Dose: Not Given Apixaban (Apixaban 5 Mg Tablet) 5 mg PO BID [facility] Stop: 08/18/24 20:59 Last Admin: 07/19/24 20:39 Dose: 5 mg Budesonide (Budesonide 0.5 Mg/2 Ml Vial (Pulmicort)) 0.5 mg INH BID [facility] Stop: 08/18/24 20:59 Last Admin: 07/21/24 07:24 Dose: 0.5 mg Clonazepam (Clonazepam 0.5 Mg Tab) 0.25 mg PO Q6H PRN PRN Reason: Anxiety Stop: 08/18/24 19:25 Formoterol Fumarate (Formoterol 20 Mcg/2 Ml Vial) 20 mcg INH BID [facility] Stop: 08/18/24 20:59 Last Admin: 07/21/24 07:24 Dose: 20 mcg Guaifenesin/Dextromethorphan (Guaifenesin/Dextrom Syrup 100mg/10mg 5ml Udc) 5 ml PO Q6H PRN PRN Reason: Cough Stop: 08/19/24 01:38 Last Admin: 07/20/24 22:11 Dose: 5 ml Levothyroxine Sodium (Levothyroxine Sodium 125 Mcg Tablet) 125 mcg PO DAILYBB MILY Stop: 08/19/24 06:29 Last Admin: 07/21/24 06:35 Dose: 125 mcg Metoclopramide HCl (Metoclopramide Hcl Inj 5 Mg/Ml 2 Ml Vial) 10 mg IV Q6H PRN PRN Reason: Nausea Stop: 08/18/24 19:25 Mirtazapine (Mirtazapine Tab 15 Mg Tab) 30 mg PO HS MILY Stop: 08/18/24 20:59 Last Admin: 07/20/24 22:11 Dose: 30 mg Ondansetron HCl (Ondansetron Inj 2 Mg/Ml 2 Ml Vial) 4 mg IV Q6H PRN PRN Reason: Nausea Stop: 08/18/24 19:25 Pantoprazole Sodium (Pantoprazole 40 Mg Tab) 40 mg PO DAILY MILY Stop: 08/19/24 08:59 Last Admin: 07/21/24 09:12 Dose: 40 mg Polyethylene Glycol (Polyethylene (Miralax) 17 Gm Pack) 17 gm PO DAILY PRN PRN Reason: Constipation Stop: 08/18/24 19:25 Rosuvastatin Calcium (Rosuvastatin Calcium 20 Mg Tab) 20 mg PO DAILY MILY Stop: 08/19/24 08:59 Last Admin: 07/21/24 09:12 Dose: 20 mg Sotalol HCl (Sotalol Hcl 80 Mg Tab) 120 mg PO BID MILY Stop: 08/18/24 20:59 Last Admin: 07/21/24 09:12 Dose: 120 mg
[2024-07-21] MEDS: clonazePAM 0.5 MG TAB PO PRN (20:10)
[2024-07-22 06:29] LABS: Hematocrit (blood only) 29.3 % (37.0-47.0); Hemoglobin 9.4 g/dl (12.0-16.0); Mean Corpuscular Hemoglobin 28.1 pg (25.0-34.0); Mean Corpuscular Hgb Conc 32.1 g/dL (32.0-36.0); Mean Corpuscular Volume 87.7 fL (80.0-100.0); Mean Platelet Volume 10.6 fL (9.4-12.4); Platelet Count 152 K/uL (130-400); RDW Standard Deviation 44.4 fL (36.4-46.3); Red Blood Count 3.34 M/uL (4.20-5.40); White Blood Count 5.44 K/ul (4.8-10.8)
[2024-07-22 07:07] LABS: Folate (Folic Acid),Ser orPlas 9.15 ng/ml (>5.38)
[2024-07-22 07:14] LABS: Ferritin 502.6 ng/ml (8-388)
--- NOTE | 2024-07-22 10:06 | History & Physical Bridge Note ---
Date of Service July 22, 2024 History & Physical Bridge Note I have examined the patient, reviewed the History & Physical and in the interval since the performance of the History & Physical I have noted the following changes of clinical significance: no changes noted Patient notes that she continues to have little appetite. Communication somewhat difficult, but she notes that she is only agreeable to EGD intervention if she is sedated. Keep NPO. Proceed with EGD today for further evaluation. Supervising Physician Co-Signing Physician Notes Patient is at least a year of increasing early satiety poor intake. Gets full quickly especially accelerated in the last 6 to 8 weeks associate with weight loss. There is been no vomiting. Schedule EGD for evaluation of possibilities which can include esophageal stricture or esophageal neoplasia achalasia gastric cancer gastric outlet obstruction. Potential complications include bleeding perforation aspiration addressed consent obtained from son. Patient very hard of hearing and nonverbal at this time
--- NOTE | 2024-07-22 14:08 | Anesthesiology Consultation ---
Date of Service July 22, 2024 Assessment & Plan Chart Review Chart Review: Acceptable Risk for Surgery Consults Requested none ASA ASA3 Proposed Anesthesia Anesthesia Type: MAC History Surgery Operation Date: 07/22/24 16:30 Proposed Procedures p Esophagogastroduodenoscopy Dr. Jose Garcia MD Height/Weight Height: 4 ft 10 in Weight: 57.334 kg Allergies Allergy/AdvReac Type Severity Reaction Status Date / Time iodine Allergy Severe ORAL AND Verified 06/09/24 21:04 FACIAL SWELLING methadone Allergy Severe Shakiness Verified 06/09/24 21:04 propoxyphene Allergy Severe Shakiness Verified 06/09/24 21:04 shellfish derived Allergy Severe ORAL AND Verified 06/09/24 21:04 FACIAL SWELLING clarithromycin Allergy Unknown unknown Verified 06/09/24 21:04 prednisone Allergy Unknown Shakiness Verified 06/09/24 21:04 Serotonin 5HT-3 Antagonists Allergy Unknown Anxiety Verified 06/09/24 21:04 morphine AdvReac Unknown LIGHTHEADED Verified 06/09/24 21:04 Medications Home Medications Medication Instructions Recorded Confirmed Last Taken albuterol sulfate 90 mcg/actuation 2 puff inhalation Q6H PRN 06/09/24 07/19/24 Unknown aerosol inhaler (Ventolin HFA) Shortness Of Breath Or Wheezing amitriptyline 25 mg tablet 25 mg PO HS 06/09/24 07/19/24 Unknown arformoterol 15 mcg/2 mL solution 15 mcg inhalation BID 06/09/24 07/19/24 Unknown for nebulization budesonide 0.5 mg/2 mL suspension 0.5 mg inhalation BID 06/09/24 07/19/24 Unknown for nebulization clonazepam 0.5 mg tablet 0.25 mg PO Q6H PRN Anxiety 06/09/24 07/19/24 Unknown furosemide 40 mg tablet 40 mg PO UD 06/09/24 07/19/24 Unknown levothyroxine 125 mcg tablet 125 mcg PO DAILY 06/09/24 07/19/24 Unknown apixaban 5 mg tablet (Eliquis) 5 mg PO BID 30 days #60 tabs 06/20/24 07/19/24 Unknown ferrous sulfate 325 mg (65 mg 325 mg PO QAM 30 days #30 tabs 06/20/24 07/19/24 Unknown iron) tablet,delayed release magnesium oxide 400 mg (241.3 mg 400 mg PO QAM 30 days #30 tabs 06/20/24 07/19/24 Unknown magnesium) tablet pantoprazole 40 mg tablet,delayed 40 mg PO DAILY 30 days #30 tabs 06/20/24 07/19/24 Unknown release rosuvastatin 20 mg tablet 20 mg PO DAILY 30 days #30 tabs 06/20/24 07/19/24 Unknown sotalol 80 mg tablet 120 mg (1.5 x 80 mg) PO BID 30 06/20/24 07/19/24 Unknown days #90 tabs Active Medications Generic Name Dose Route Start Last Admin Trade Name Freq PRN Reason Stop Dose Admin Acetaminophen 650 mg 07/19/24 19:26 07/21/24 20:09 Acetaminophen 325 Mg Tab PO 08/18/24 19:25 650 mg Q4H PRN Administration pain/fever Albuterol 3 ml 07/20/24 13:00 07/22/24 12:48 Albut/Ipratrop 3mg/0.5mg Neb 3 Ml Vial NEB 08/19/24 12:59 3 ml TIDR MILY Administration Protocol Apixaban 5 mg 07/19/24 21:00 07/19/24 20:39 Apixaban 5 Mg Tablet PO 08/18/24 20:59 5 mg BID MILY Administration Budesonide 0.5 mg 07/19/24 21:00 07/22/24 07:12 Budesonide 0.5 Mg/2 Ml Vial (Pulmicort) INH 08/18/24 20:59 0.5 mg BID MILY Administration Clonazepam 0.25 mg 07/19/24 19:26 07/21/24 20:10 Clonazepam 0.5 Mg Tab PO 08/18/24 19:25 0.25 mg Q6H PRN Administration Anxiety Formoterol Fumarate 20 mcg 07/19/24 21:00 07/22/24 07:13 Formoterol 20 Mcg/2 Ml Vial INH 08/18/24 20:59 20 mcg BID MILY Administration Guaifenesin/Dextromethorphan 5 ml 07/20/24 01:39 07/21/24 20:10 Guaifenesin/Dextrom Syrup 100mg/10mg 5ml Udc PO 08/19/24 01:38 5 ml Q6H PRN Administration Cough Levothyroxine Sodium 125 mcg 07/20/24 06:30 07/22/24 05:33 Levothyroxine Sodium 125 Mcg Tablet PO 08/19/24 06:29 Not Given DAILYBB MILY Mirtazapine 30 mg 07/19/24 21:00 07/21/24 20:11 Mirtazapine Tab 15 Mg Tab PO 08/18/24 20:59 30 mg HS MILY Administration Pantoprazole Sodium 40 mg 07/20/24 09:00 07/22/24 09:41 Pantoprazole 40 Mg Tab PO 08/19/24 08:59 Not Given DAILY MILY Rosuvastatin Calcium 20 mg 07/20/24 09:00 07/22/24 09:41 Rosuvastatin Calcium 20 Mg Tab PO 08/19/24 08:59 Not Given DAILY MILY Sotalol HCl 120 mg 07/19/24 21:00 07/22/24 09:41 Sotalol Hcl 80 Mg Tab PO 08/18/24 20:59 Not Given BID MILY NPO Date Last Intake of Fluids: 07/22/24 Time Last Intake of Fluids: 00:00 Date Last Intake of Solids: 07/22/24 Time Last Intake of Solids: 00:00 Last Intake of Solids Comment: Greater then 8 hrs Past Medical History Medical History Dyslipidemia Chronic heart failure with perserved EF SOB (shortness of breath) Multifactorial per pulmonary- chronic HF, chronic hypoxic respiratory failure, possible ILD, asthma, obesity, Covid infection 07/2020, multifocal consolidations/scarring, non allergic rhinitis History of pneumonia 12/2020 - required cont oxygen upon d/c from hospital and remains on Fear of needles Limb alert care status LUE Difficult intravenous access required assistance from IV team in past History of COVID-19 06/2020; asymptomatic Sleep apnea unable to tolerate CPAP History of home oxygen therapy 2 lpm cont- secondary to chronic hypoxic respiratory failure per pulm Tachycardia ANXIETY RELATED PER PATIENT. follows with Dr. Arguello Breast cancer Left breast 2001- sx + radiation GERD (gastroesophageal reflux disease) Hypothyroidism Anxiety Hx of deep venous thrombosis LLE - "years ago" - r/t injury Asthma Follows with Dr. Geiger [facility]. Uses PRN neb daily Exercise / Class Metabolic Activity IV < 2 Limit ADL/Bedbound Past Surgical History Surgical History History of lumpectomy of left breast History of breast biopsy History of removal of cyst History of bilateral tubal ligation History of arthroscopy BILAT KNEES History of esophagogastroduodenoscopy (EGD) History of colonoscopy Hx of hernia repair History of cholecystectomy Past Anesthesia History No Hx of Anesthesia Complications and No Family Hx of Anesthesia Complications History of PONV No Hx of PONV and No Hx of Motion Sickness Social History Smoking Status: Never smoker Do You Dip or Chew Tobacco: No Hx Alcohol Use: No Hx Substance Use: No substance use type: does not use Review of Systems ROS Unobtainable: All systems reviewed & are unremarkable except as noted in HPI & below Physical Exam Vital Signs Last Vital Signs Temp 36.7 C 07/22/24 13:43 Pulse 72 07/22/24 13:43 Resp 20 07/22/24 13:43 BP 143/85 H 07/22/24 13:43 Pulse Ox 94 07/22/24 13:43 O2 Del Method Nasal Cannula 07/22/24 13:43 O2 Flow Rate 2 07/22/24 13:43 Extremely frail ENMT Mouth: + edentulous Thyromental Distance: > or= 3.5 Finger Breadths Mallampati Class: III Respiratory Auscultation: lungs clear to auscultation bilaterally Cardiovascular Rate/Rhythm: regular rate Psychiatric Orientation: oriented x 3 Testing Laboratory Results 07/22/24 05:57 07/21/24 06:22 Urine Color Yellow 07/19/24 20:15 Urine Appearance Clear (Clear) 07/19/24 20:15 Urine pH 5.5 (4.5-7.5) 07/19/24 20:15 Ur Specific [place] 1.006 (1.000-1.030) 07/19/24 20:15 Urine Protein Trace (Negative) H 07/19/24 20:15 Urine Glucose (UA) Negative (Negative) 07/19/24 20:15 Urine Ketones Negative (Negative) 07/19/24 20:15 Urine Nitrite Negative (Negative) 07/19/24 20:15 Ur Leukocyte Esterase 1+ (Negative) H 07/19/24 20:15 Urine WBC (Auto) 6-10 /hpf (0-5) H 07/19/24 20:15 Urine RBC (Auto) 0-2 /hpf (0-2) 07/19/24 20:15 U Hyaline Cast (Auto) 3-5 /lpf (0-2) H 07/19/24 20:15 U Epithel Cells (Auto) 3-5 /hpf (0-2) H 07/19/24 20:15 Urine Bacteria (Auto) None Seen (None Seen) 07/19/24 20:15 Electrocardiogram Normal sinus rhythm Minimal voltage criteria for LVH, may be normal variant ( R in aVL ) Junctional ST depression, probably abnormal Abnormal ECG When compared with ECG of 19-Jun-2024 06:41, ST now depressed in Inferior leads ST elevation now present in Lateral leads T wave inversion now evident in Inferior leads Confirmed by Phil Tsai ([id number]) on 07/19/2024 2:48:04 PM
--- NOTE | 2024-07-22 15:05 | Post Operative Brief Note ---
Immediate Post Op Note Date of Surgery July 22, 2024 Pre & Post Diagnosis Operation Date: 07/22/24 16:30 Pre-Op Diagnosis: EARLY SATIETY weight loss Post-Op Diagnosis: esophagus ulcerations I identified the patient and participated in the time-out.: Yes Procedure Operation Date: 07/22/24 16:30 Actual Procedures p EGD Biopsy Cytology - Isaias Garcia MD Surgeon Isaias Garcia MD [employer] Statistical Programmer none i Estimated Blood Loss 2 Findings Consistent with Post-Op Diagnosis Distal esophageal ulcerations that appear superficial and actually above the GE junction. Appearance of possible pill induced esophagitis. Less likely neoplasia. Biopsies performed. The esophagus was not dilated or full of food to suggest achalasia. Complications No immediate complication
--- NOTE | 2024-07-22 15:10 | GI REPORT ---
[facility] Patient: DREAD OWEN : 1940 Sex at : Female Age: 83 Years Procedure: Upper GI endoscopy Date: 07/22/2024 Attending Physician: Isaias Garcia MD Referring MD: Referred Self Indications: - Malnutrition early satiety unexplained weight loss Medications: - Monitored Anesthesia Care Complications: - No immediate complications. Estimated Blood Loss: - Estimated blood loss was minimal. Procedure: - The egd scope was introduced through the mouth and advanced to the second part of the duodenum. - The upper GI endoscopy was accomplished without difficulty. - The patient tolerated the procedure well. Findings: - Esophagus had a little bit of a corkscrew appearance. However it was not dilated. There was no retained food in the esophagus itself. She did have 4 oropharyngeal hygiene however. There were some retained secretions and debris in the posterior pharynx which were suctioned prior to proceeding.. In the immediate distal esophagus above the GE junction there was mucosal breaks consistent with superficial ulcerations. Atypical for reflux. Biopsies performed not obvious neoplasia. Could be a pill induced esophagitis potentially from iron. - The entire examined stomach was normal. - The examined duodenum was normal. Impression: - Esophagus had a little bit of a corkscrew appearance. However it was not dilated. There was no retained food in the esophagus itself. She did have 4 oropharyngeal hygiene however. There were some retained secretions and debris in the posterior pharynx which were suctioned prior to proceeding.. In the immediate distal esophagus above the GE junction there was mucosal breaks consistent with superficial ulcerations. Atypical for reflux. Biopsies performed not obvious neoplasia. Could be a pill induced esophagitis potentially from iron. - Normal stomach. - Normal examined duodenum. - No specimens collected. Recommendation: - No definite cause for this patient's early satiety. Consider barium esophagram to evaluate her swallowing specially based on poor oropharyngeal hygiene. Await biopsies. Mechanical soft diet pur?ed diet in the meantime. A nutritional supplement such as boost Ensure Sustacal could be considered if her swallowing study is normal Procedure Code(s): - 31960, Esophagogastroduodenoscopy, flexible, transoral; diagnostic, including collection of specimen(s) by brushing or washing, when performed (separate procedure) CPT(R) - 2023 copyright [employer]. All Rights Reserved. The CPT codes, CCI edits and ICD codes generated are intended as suggestions and were generated based on input data. These codes are preliminary and upon computer language coder review may be revised to meet current compliance and payer requirements. The provider is responsible for the final determination of appropriate codes, and modifiers. Isaias Garcia MD This document has been electronically signed. Note Initiated:07/22/2024 Note Completed:07/22/2024 3:09 PM \\[id number]
--- NOTE | 2024-07-22 15:24 | Communication Note ---
Date of Service: July 22, 2024 Patient underwent an EGD that indicated a corkscrew appearance of the esophagus. Barium swallow ordered to be done. Family expressed that they do not feel that they are able to feed her and care for her sufficiently at home. Will await the barium swallow but this may result in further goals of care conversations moving forward.
--- NOTE | 2024-07-22 15:32 | Anesthesiology Progress Note ---
Date of Service July 22, 2024 Anesthesia Post Procedure Vital Signs Vital Signs: Temp Pulse Resp BP Pulse Ox O2 Del Method O2 Flow Rate 07/22/24 15:21 79 16 110/65 91 Nasal Cannula 2 07/22/24 15:09 75 16 80/43 L 94 Room Air 07/22/24 13:43 36.7 C 72 20 143/85 H 94 Nasal Cannula 2 07/22/24 12:49 81 16 96 Nasal Cannula 2 07/22/24 07:48 36.7 C 66 19 138/78 98 Nasal Cannula 2.5 07/22/24 07:35 Nasal Cannula 2 07/22/24 07:13 74 18 98 Nasal Cannula 2 07/21/24 20:29 66 17 98 Nasal Cannula 2 07/21/24 20:10 Nasal Cannula 2 07/21/24 20:06 36.5 C 69 18 116/77 93 Nasal Cannula 2 07/21/24 17:29 36.4 C L 75 16 136/87 96 Nasal Cannula 2 Transfer of Care Handoff Completed per policy Notes Mental Status: alert / awake / arousable Patient Amnestic to Procedure: Yes Nausea / Vomiting: adequately controlled Pain: adequately controlled Airway Patency, RR, SpO2: stable & adequate BP & HR: stable & adequate Hydration State: stable & adequate Anesthetic Complications: no major complications apparent and Pt Satisfied with anesthetic care
[2024-07-22] MEDS: PROPOFOL IV EMULSION 10 MG/ML 20 ML VIAL IV ONE (16:09)
[2024-07-22] MEDS: PHENYLEPHRINE 100MCG/ML 5ML SYR ONE (16:09)
[2024-07-22] MEDS: GLYCOPYRROLATE 0.2 MG/ML VIAL ONE (16:09)
[2024-07-22] MEDS: ePHEDrine sulfate 50 MG/5 ML SYR ONE (16:09)
[2024-07-22] MEDS: DEXAMETHASONE SOD INJ 4 MG/ML VIAL ONE (16:09)
[2024-07-22] MEDS: LIDOCAINE 2% 2 ML VIAL/AMP(20MG/ML) INFIL ONE (16:09)
[2024-07-22 17:42] LABS: Adenovirus PCR Not Detected (NotDetected); Bordetella parapertussis PCR Not Detected (NotDetected); Bordetella pertussis PCR Not Detected (NotDetected); Chlamydia pneumoniae PCR Not Detected (NotDetected); Coronavirus 229E PCR Not Detected (NotDetected); Coronavirus CoV-2 (COVID19)PCR Not Detected (NotDetected); Coronavirus HKU1 PCR Not Detected (NotDetected); Coronavirus NL63 PCR Not Detected (NotDetected); Coronavirus OC43PCR Not Detected (NotDetected); Human Metapneumovirus PCR Not Detected (NotDetected); Influenza A PCR Not Detected (NotDetected); Influenza B PCR Not Detected (NotDetected); Mycoplasma pneumoniae PCR Not Detected (NotDetected); Parainfluenza Virus 1 PCR Not Detected (NotDetected); Parainfluenza Virus 2 PCR Not Detected (NotDetected); Parainfluenza Virus 3 PCR Not Detected (NotDetected); Parainfluenza Virus 4 PCR Not Detected (NotDetected); Respiratory Syncytial VirusPCR DETECTED (NotDetected); Rhinovirus/Enterovirus PCR Not Detected (NotDetected)
--- NOTE | 2024-07-22 17:52 | Hospitalist Progress Note ---
<Statement entered by Mark Issa DO - 07/23/24 11:47> I have seen and examined the patient and have discussed the case with the advance practice provider. I have reviewed the advanced practitioner's documentation, and I agree with, and take responsibility for that plan of care. Patient seen prior to EGD. On day of service. For no complaints. Await EGD results, further plan of care as outlined below. I spent a total of 10 minutes coordinating, documenting, and providing care for this patient excluding time spent by another provider/QHP. Date of Service July 22, 2024 Assessment & Plan (1) Early satiety: (2) Dysphagia: (3) Severe malnutrition: (4) Unintentional weight loss: (5) Adult failure to thrive: (6) RSV (respiratory syncytial virus infection): Plan Leela Villanueva is an 83y/o F with PMHx significant for chronic respiratory failure with hypoxia on 2L NC, COPD, ILD, PAF anticoagulated on Eliquis, chronic HFpEF [EF = 60-64%; 05/2024], HLD, hypothyroidism, GERD, migraines, benign paroxysmal vertigo, CIELO and depression who presented to the ED on 07/19/24 with complaints of early satiety, unintentional weight loss and failure to thrive ISO dysphagia. Recent hospitalization at [facility] in May 2024 2/2 atrial fibrillation/flutter in which she underwent cardioversion and has since remained in sinus rhythm. During that time, there was also noted to be some issues with swallowing. Had video swallow was done which did not show any significant aspiration and speech recommended an easy to chew diet. From there, patient was discharged to [facility] (SNF). Patient had to be readmitted to a [facility] facility while at rehab 2/2 pneumonia. Again had complaints of difficulty swallowing/early satiety during that hospitalization. It was recommended she see a GI provider as an outpatient. She ended up being discharged home from that hospitalization. She was recently seen in the outpatient GI setting at [facility] on 07/16/24 and had scheduled an outpatient EGD for 08/01/24. Family was concerned that the patient would not make it to that outpatient EGD due to persistent poor intake and therefore was brought to [facility] again for further evaluation regarding her early satiety/dysphagia. Patient has lost ~30lbs since May 2024 per family. Early Satiety, Dysphagia Severe Malnutrition & Failure to Thrive: Underwent EGD with GI today. EGD revealed slight corkscrew appearance of esophagus however it was not dilated. There was no retained food in the esophagus itself. EGD did however note mucosal breaks above the GE junction consistent with superficial ulcerations - atypical for reflux. Biopsies performed. May be pill-induced esophagitis potentially from po iron supplementation. Holding iron supplementation for now. Remeron added on for appetite stimulation. No definite cause for patient's early satiety however. Plan for patient to undergo barium swallow testing tomorrow. Started on pured diet for now per GI's recommendation. Anemia: Hgb 11.2 on admission, now Hgb down to 9.4 today. Hgb was 12 back in May 2024 on discharge. Iron panel reviewed. Ferritin 502.6, iron 37. Holding iron supplement for now. No s/sx of bleeding. Suspect partially dilutional vs nutritional given weight loss. No indication for transfusion at this time. TSH WNL this admission. Anemia may also be related to ulcerations noted on EGD as per above. Continue to hold Eliquis. Acute RSV Infection - Noted on 07/22/24 Chronic Hypoxic Respiratory Failure ISO COPD and ILD on 2L NC & Chronic Hypercarbia: Noted wet-sounding yet nonproductive cough on exam this morning. Rhonchi heard in bilateral lung bases as well. recently developed URI symptoms and was in to see her over the weekend. Respiratory BioFire panel ordered and came back positive for RSV today. Droplet precautions ordered. Continue symptomatic management. Repeat CXR pending given recent PNA, rhonchi on exam. On 2L NC chronically. No increase in O2 requirement. Patient not c/o SOB. Continue symptomatic management. Encourage incentive spirometer, flutter valve use. PAF: Chronic, noted to be in NSR on telemetry in ED. Eliquis currently on hold. Continue sotalol. Replace Mag and K+ to keep >2 and >4 respectively. Chronic HFpEF: Trace BLE edema on exam today. Repeat CXR pending. Does not appear grossly fluid overloaded on exam. Continue to closely monitor volume status. Resting echo from 05/2024 reviewed --> EF = 60-64%, increased concentric LV wall thickness, normal LV wall motion, grade I DD, mildly enlarged LA, mild MR and mild TR. Other Chronic Medical Conditions: Hypothyroidism - TSH WNL, continue levothyroxine. GERD - Transitioned po PPI to IV PPI 2/2 ulcerations on EGD. HLD - Continue statin. DVT Prophylaxis: SCDs/TEDs for now given anemia, [employer] SAL[employer] Eliquis on hold. Code Status: FULL CODE PCP: Umair Gillis DO Disposition: Admitted in Med/Surg - To undergo barium swallow study with GI tomorrow. Patient seen in collaboration with Dr. Issa. Please see addendum. I spent a total of 55 minutes coordinating, documenting, and providing care for this patient excluding time spent in the performance of separately billed services or time spent by another provider/QHP. This included personally reviewing all current laboratories and imaging studies, medical reconciliation, outpatient chart review and discussion with specialists. This chart was completed in part utilizing Speech Voice Recognition Software. Grammatical errors, random word insertions, pronoun errors, and incomplete sentences are an occasional consequence of this system due to software limitations, ambient noise, and hardware issues. Any formal questions or concerns about the content, text, or information contained within the body of this dictation should be directly addressed to the provider for clarification. Admission and Anticipated Discharge Date Admission Date: July 19, 2024 Subjective Patient seen and examined in room N387-2. Patient's son, Marino, was present at bedside this morning. Marino reports that she has been dealing with early satiety and issues with swallowing since her previous admission back in May of last year. She had a video swallow study done at that time which did not show any significant aspiration. Patient was discharged to [facility] following that admission. While at [facility], patient was readmitted to a PH facility 2/2 PNA. Again patient had complaints of difficulty swallowing and early satiety during that hospitalization. It was recommended that she see a GI provider as an outpatient following discharge from that hospitalization in which she was sent back home due to issues at [facility] (hygiene/personal care/staff). She had a planned outpatient EGD for 08/01/24 however family was concerned given her lack of oral intake that she would not physically make it to that visit - therefore prompting this admission. Noted weight loss of approximately 35lbs since May 2024 per Marino. She is resting comfortably in bed this morning. Very [place] at baseline but hears better out of her R ear > L ear. She denies any SOB or chest pain. Patient only A&O to basic questioning. Communication somewhat difficult. Discussed scheduled EGD for today - patient agreeable. Has been NPO since IN. Review of Systems Review of Systems: At least ten systems reviewed and negative, except as noted in the subjective section. Physical Exam Physical Exam: General: Thin elderly F, sitting up in bed. A+Ox2 to basic questioning. Patient's son, Marino, at bedside. HEENT: Normocephalic, atraumatic. Conjunctivae normal. External ear and nose normal, oropharynx very dry. Respiratory: NAD. On 2L NC. Wet sounding cough. Lung sounds diminished bilaterally, mild rhonchi in bilateral lung bases. Cardiovascular: Regular rate, rhythm, trace BLE edema. Abdomen/GI: Normal bowel sounds, soft, nondistended, nontender to palpation in all quadrants. Extremities/Musculoskeletal: No cyanosis or clubbing, BLE PAULINA stockings in place. Results & Data Results & Data Vital Signs (Past 12 Hours) Vital Signs Temp Pulse Resp BP Pulse Ox O2 Del Method O2 Flow Rate 07/22/24 16:51 36.4 C L 71 19 139/73 95 Nasal Cannula 2.0 07/22/24 16:20 36.6 C 73 18 129/73 97 Nasal Cannula 2.0 07/22/24 15:50 36.6 C 73 20 135/71 97 Room Air 07/22/24 15:32 76 16 132/67 92 Room Air 07/22/24 15:21 79 16 110/65 91 Nasal Cannula 2 07/22/24 15:09 75 16 80/43 L 94 Room Air 07/22/24 13:43 36.7 C 72 20 143/85 H 94 Nasal Cannula 2 07/22/24 12:49 81 16 96 Nasal Cannula 2 07/22/24 07:48 36.7 C 66 19 138/78 98 Nasal Cannula 2.5 07/22/24 07:35 Nasal Cannula 2 07/22/24 07:13 74 18 98 Nasal Cannula 2 Laboratory Results Short CBC 07/22/24 Range/Units 05:57 WBC 5.44 (4.8-10.8) K/ul Hgb 9.4 L (12.0-16.0) g/dl Hct 29.3 L (37.0-47.0) % Plt Count 152 (130-400) K/uL (2) Dysphagia Dysphagia type: unspecified Qualified Code(s): R13.10 - Dysphagia, unspecified (6) RSV (respiratory syncytial virus infection) RSV infection type: unspecified Qualified Code(s): B33.8 - Other specified viral diseases
--- NOTE | 2024-07-22 18:56 | XRay Report ---
INDICATION: Cough. TECHNIQUE: Frontal radiograph of the chest. COMPARISON: Radiograph from 07/19/2024. FINDINGS: Mild cardiomegaly. Pulmonary vasculature appear within normal limits. Chronic appearing interstitial lung markings. Subsegmental atelectasis in the lung bases. No infiltrate, pleural effusion or pneumothorax. No acute osseous abnormality evident. IMPRESSION: No acute cardiopulmonary process. Electronically signed by Sedrick Chaudhari 07-22-2024 6:56 PM
[2024-07-22] MEDS: PANTOprazole 40 MG/10 ML SYR IV SCH (20:48)
--- NOTE | 2024-07-23 07:53 | Hospitalist Progress Note ---
<Statement entered by Mark Issa, - 07/23/24 16:28> I have seen and examined the patient and have discussed the case with the advance practice provider. I have reviewed the advanced practitioner's documentation, and I agree with, and take responsibility for that plan of care. Patient continues with feeding difficulties. Reviewed barium swallow results, showing severe esophageal dysmotility. Unfortunately there are limited treatments for this dysfunction. Small, frequent meals as recommended by speech and/or possible artificial feeding. Reviewed initial conversation with family about feeding tube. Discussion goals of care are ongoing. Further plan of care as outlined below I spent a total of 20 minutes coordinating, documenting, and providing care for this patient excluding time spent by another provider/QHP. Date of Service July 23, 2024 Assessment & Plan (1) Early satiety: (2) Dysphagia: (3) Severe malnutrition: (4) Unintentional weight loss: (5) Adult failure to thrive: (6) RSV (respiratory syncytial virus infection): (7) Chronic respiratory failure with hypoxia and hypercapnia: Plan Leela Villanueva is an 83y/o F with PMHx significant for chronic respiratory failure with hypoxia on 2L NC, COPD, ILD, PAF anticoagulated on Eliquis, chronic HFpEF [EF = 60-64%; 05/2024], HLD, hypothyroidism, GERD, migraines, benign paroxysmal vertigo, CIELO and depression who presented to the ED on 07/19/24 with complaints of early satiety, unintentional weight loss and failure to thrive ISO dysphagia. Recent hospitalization at [facility] in May 2024 2/2 atrial fibrillation/flutter in which she underwent cardioversion and has since remained in sinus rhythm. During that time, there was also noted to be some issues with swallowing. Had video swallow was done which did not show any significant aspiration and speech recommended an easy to chew diet. From there, patient was discharged to [facility] (SNF). Patient had to be readmitted to a [facility] while at rehab 2/2 pneumonia. Again had complaints of difficulty swallowing/early satiety during that hospitalization. It was recommended she see a GI provider as an outpatient. She ended up being discharged home from that hospitalization. She was recently seen in the outpatient GI setting at [facility] on 07/16/24 and had scheduled an outpatient EGD for 08/01/24. Family was concerned that the patient would not make it to that outpatient EGD due to persistent poor intake and therefore was brought to [facility] again for further evaluation regarding her early satiety/dysphagia. Patient has lost ~30lbs since May 2024 per family. Early Satiety, Dysphagia Severe Malnutrition & Failure to Thrive: Underwent EGD with GI on 07/22. EGD revealed slight corkscrew appearance of esophagus however it was not dilated. There was no retained food in the esophagus itself. EGD did however note mucosal breaks above the GE junction consistent with superficial ulcerations - atypical for reflux. Biopsies performed - results pending. May be pill-induced esophagitis potentially from po iron supplementation. Holding iron supplementation for now. Remeron added on for appetite stimulation - may benefit from increased dose to 45mg HS. No definite cause for patient's early satiety however per EGD report. Plan for patient to undergo barium swallow testing today. Can resume pured diet once barium swallow study is complete. Spoke with the patient's son, Marino, at bedside this afternoon. Discussed goals of care moving forward. Family unsure about feeding tube placement if that were to be the only option. She remains a full code. Marino reports patient will ultimately need long-term placement. Patient is currently residing with her at home however he has ambulatory difficulties at baseline which make it difficult for him to care for her. One of their other sons lives with them but has physical limitations himself which prohibit him from being able to safely care for the patient. Marino requested to speak with CM in-person. Reached out to Thelma White RN regarding this and she spoke with Marino today. [facility] can likely accept for long-term care - an application has been provided to Marino to fill out. Anemia: Hgb 11.2 on admission and then was down to 9.2 on 07/21. Hgb now back up to 10.4 today. Hgb was 12 back in May 2024 on discharge. Iron panel reviewed. Ferritin 502.6 likely 2/2 malnutrition, iron 37. Holding iron supplement. No s/sx of bleeding. Suspect mostly 2/2 nutritional status given weight loss. No indication for transfusion at this time. TSH WNL this admission. Anemia may also be related to ulcerations noted on EGD as per above. Continue to hold Eliquis. Acute RSV Infection - Noted on 07/22/24 Chronic Hypoxic Respiratory Failure ISO COPD and ILD on 2L NC & Chronic Hypercarbia: Noted moist cough on exam yesterday. Rhonchi heard in bilateral lung bases as well. recently developed URI symptoms and was in to see her over the weekend. Respiratory BioFire panel ordered and came back positive for RSV. Repeat CXR ordered which revealed subsegmental atelectasis in the lung bases but thankfully no evidence of consolidation. Continue droplet precautions and symptomatic management. Bilateral rhonchi stable on exam. Continues to saturate well on baseline 2L NC. No increase in O2 requirement. Patient not c/o SOB. Encourage incentive spirometer, flutter valve use as able. Continue home inhalers/nebs/PRN antitussives. PAF: Chronic, noted to be in NSR on telemetry in ED. Eliquis currently on hold. Continue sotalol. Monitor and manage electrolytes PRN. Chronic HFpEF: Trace BLE edema on exam. Repeat CXR yesterday w/o evidence of vascular congestion. Continue to closely monitor volume status. Resting echo from 05/2024 reviewed --> EF = 60-64%, increased concentric LV wall thickness, normal LV wall motion, grade I DD, mildly enlarged LA, mild MR and mild TR. Other Chronic Medical Conditions: Hypothyroidism - TSH WNL, continue levothyroxine. GERD - Transitioned po PPI to IV PPI 2/2 ulcerations on EGD. HLD - Continue statin. DVT Prophylaxis: SCDs/TEDs for now given anemia, [employer] Eliquis on hold. Code Status: FULL CODE - Confirmed with patient's son, Marino, again today. PCP: Umair Gillis, Disposition: Undergoing barium swallow study today. CM working on arranging long-term placement as per above at the request of Marino, patient's son. Patient seen in collaboration with Dr. Issa. Please see addendum. I spent a total of 50 minutes coordinating, documenting, and providing care for this patient excluding time spent in the performance of separately billed services or time spent by another provider/QHP. This included personally reviewing all current laboratories and imaging studies, medical reconciliation, outpatient chart review and discussion with specialists. This chart was completed in part utilizing Speech Voice Recognition Software. Grammatical errors, random word insertions, pronoun errors, and incomplete sentences are an occasional consequence of this system due to software limitations, ambient noise, and hardware issues. Any formal questions or concerns about the content, text, or information contained within the body of this dictation should be directly addressed to the provider for clarification. Admission and Anticipated Discharge Date Admission Date: July 19, 2024 Subjective Patient seen and examined at bedside this morning in room N387-2. No family at bedside earlier this morning. Patient is very [place] at baseline; hearing in R ear > L ear. She was sleeping when I entered the room but was easily arousable with verbal stimuli. Patient only A&O to direct questioning. Communication somewhat difficult but she denies any chest pain or SOB. Told her about barium swallow study today and she asked if it was painful. Education was provided regarding the process of a barium swallow test and patient said "yes" when asked if she w ould like to proceed with the study. Review of Systems Review of Systems: At least ten systems reviewed and negative, except as noted in the subjective section. Physical Exam Physical Exam: General: Thin elderly F, sitting up in bed. NAD. Easily arousable from sleep. A+Ox2 to basic questioning. HEENT: Normocephalic, atraumatic. Conjunctivae normal. External ear and nose normal, oropharynx notably dry. Respiratory: NAD. On 2L NC. Moist cough. Lung sounds diminished bilaterally, mild rhonchi in bilateral lung bases. Cardiovascular: Regular rate, rhythm, trace BLE edema, BLE PAULINA stockings in place. Abdomen/GI: Normal bowel sounds, soft, nondistended, nontender to palpation in all quadrants. Results & Data Results & Data Vital Signs (Past 12 Hours) Vital Signs Temp Pulse Resp BP Pulse Ox O2 Del Method O2 Flow Rate 07/23/24 07:16 36.5 C 84 16 144/78 H 98 Nebulizer 07/23/24 07:09 73 16 97 Nasal Cannula 2 07/23/24 03:33 36.6 C 84 18 94 Nasal Cannula 2 07/22/24 23:13 36.7 C 86 18 124/74 95 Nasal Cannula 2 07/22/24 21:00 Nasal Cannula 2 07/22/24 20:02 80 16 97 Nasal Cannula 2 07/22/24 19:59 36.8 C 89 18 126/72 93 Nasal Cannula 2 Laboratory Results Short CBC 07/23/24 Range/Units 07:20 WBC 7.04 (4.8-10.8) K/ul Hgb 10.4 L (12.0-16.0) g/dl Hct 32.2 L (37.0-47.0) % Plt Count 160 (130-400) K/uL [facility] 07/23/24 07:20 Sodium 145 Potassium 3.8 Chloride 102 Carbon Dioxide 35 H BUN 20 Creatinine 1.18 Glucose 82 Calcium 8.3 L Diagnostic Findings Chest X-Ray 07/19/24 13:32 XR chest 1V not portable CLINICAL HISTORY: pneumonia COMPARISON STUDY: 06/19/2024 FINDINGS: Stable mild cardiomegaly without pulmonary vascular congestion. There is mild stranding [place] in the lung bases, improved. No other consolidation or pleural effusion. No pneumothorax. IMPRESSION: Atelectasis or mild persistent pneumonia in the lung bases, improved. ACT 112: Negative or not required by law. Electronically signed by: Nestor Cordova M.D. 07/19/2024 3:04 PM Chest X-Ray 07/22/24 18:10 INDICATION: Cough. TECHNIQUE: Frontal radiograph of the chest. COMPARISON: Radiograph from 07/19/2024. FINDINGS: Mild cardiomegaly. Pulmonary vasculature appear within normal limits. Chronic appearing interstitial lung markings. Subsegmental atelectasis in the lung bases. No infiltrate, pleural effusion or pneumothorax. No acute osseous abnormality evident. IMPRESSION: No acute cardiopulmonary process. Electronically signed by Sedrick Chaudhari 07-22-2024 6:56 PM Barium Swallow X-Ray 07/23/24 13:00 SINGLE CONTRAST BARIUM SWALLOW CLINICAL HISTORY: abnormal appearance of the esophagus COMPARISON STUDY: Modified barium swallow June 17, 2024. FLUOROSCOPY TIME: 1.01 minutes FLUOROSCOPY IMAGES: 9 Ka,r: 7.85 mGy FINDINGS: Single contrast barium swallow was performed. No esophageal mass or stricture was identified although mucosal detail was diminished given single contrast technique. This exam was technically difficult given difficulty positioning. Severe esophageal dysmotility was noted. Therefore, gastroesophageal reflux was difficult to assess for. No hiatal hernia was identified. IMPRESSION: 1. Severe esophageal dysmotility. 2. No esophageal mass or stricture identified although mucosal detail diminished given single contrast technique. ACT 112: Negative or not required by law. Electronically signed by: Johnnie Hdz M.D. 07/23/2024 1:48 PM (2) Dysphagia Dysphagia type: unspecified Qualified Code(s): R13.10 - Dysphagia, unspecified (6) RSV (respiratory syncytial virus infection) RSV infection type: unspecified Qualified Code(s): B33.8 - Other specified viral diseases
[2024-07-23 08:40] LABS: Hematocrit (blood only) 32.2 % (37.0-47.0); Hemoglobin 10.4 g/dl (12.0-16.0); Mean Corpuscular Hemoglobin 28.2 pg (25.0-34.0); Mean Corpuscular Hgb Conc 32.3 g/dL (32.0-36.0); Mean Corpuscular Volume 87.3 fL (80.0-100.0); Mean Platelet Volume 10.8 fL (9.4-12.4); Platelet Count 160 K/uL (130-400); RDW Coefficient of Variation 14.6 % (11.5-14.5); RDW Standard Deviation 46.2 fL (36.4-46.3); Red Blood Count 3.69 M/uL (4.20-5.40); White Blood Count 7.04 K/ul (4.8-10.8)
[2024-07-23 08:49] LABS: BUN Creatinine Ratio 16.9 (10-20); Calcium 8.3 mg/dl (8.6-10.3); Magnesium 1.8 mg/dl (1.7-2.4); Potassium 3.8 mmol/L (3.5-5.1)
[2024-07-23] MEDS ORDERED: ALBUT/IPRATROP 3MG/0.5MG NEB 3 ML VIAL NEB PRN (09:52)
--- NOTE | 2024-07-23 12:05 | Communication Note ---
Date of Service: July 23, 2024 Patient is an 83 yo female who underwent an EGD due to overall failure to thrive issues. EGD showed a corkscrew esophagus and superficial ulcerations. She continues on a PPI. A barium swallow is pending at this time. Further recommendations pending results of that study.
[2024-07-23] MEDS: SODIUM CHLORIDE 0.9% 1,000 ML IV SCH (13:45)
--- NOTE | 2024-07-23 13:50 | Fluoroscopy Report ---
SINGLE CONTRAST BARIUM SWALLOW CLINICAL HISTORY: abnormal appearance of the esophagus COMPARISON STUDY: Modified barium swallow June 17, 2024. FLUOROSCOPY TIME: 1.01 minutes FLUOROSCOPY IMAGES: 9 Ka,r: 7.85 mGy FINDINGS: Single contrast barium swallow was performed. No esophageal mass or stricture was identifie d although mucosal detail was diminished given single contrast technique. This exam was technically d ifficult given difficulty positioning. Severe esophageal dysmotility was noted. Therefore, gastroesop hageal reflux was difficult to assess for. No hiatal hernia was identified. IMPRESSION: 1. Severe esophageal dysmotility. 2. No esophageal mass or stricture identified although mucosal detail diminished given single contras t technique. ACT 112: Negative or not required by law. Electronically signed by: Johnnie Hdz M.D. 07/23/2024 1:48 PM
--- NOTE | 2024-07-23 14:35 | Gastroenterology Progress Note ---
Date of Service July 23, 2024 Assessment & Plan (1) Esophageal dysmotility: Plan: Barium swallow noting severe dysmotility. At this point, options for this particular patient could include continuing a diet per the recommendations given by PRINTING ESTIMATOR vs artificial feeding if this is something patient and family feel aligned with. Continue PPI therapy and will await esophageal biopsies. Admission and Anticipated Discharge Date Admission Date: July 19, 2024 Supervising Physician Co-Signing Physician Notes Biopsy still pending. Severe esophageal dysmotility. Makes me believe the changes I see at the distal esophagus or pill induced. Did discuss with family yesterday potential artificial feeding methods. Notify us if this is something they wish to pursue. Esophageal biopsy should be available tomorrow. Subjective Patient is an 83 yo female with failure to thrive, poor appetite. EGD on 07/22/24 indicated a corkscrew esophagus. She continues on PPI therapy. A barium swallow today indicated severe esophageal dysmotility. Review of Systems Gastrointestinal: no abdominal pain Physical Exam Gastrointestinal (Abdomen): normal bowel sounds, soft, nontender, no hepatosplenomegaly Results & Data Results & Data Vital Signs (Past 12 Hours) Vital Signs Temp Pulse Resp BP Pulse Ox O2 Del Method O2 Flow Rate 07/23/24 13:46 36.6 C 72 16 149/79 H 95 Room Air 07/23/24 07:30 Nasal Cannula 2 07/23/24 07:16 36.5 C 84 16 144/78 H 98 Nebulizer 07/23/24 07:09 73 16 97 Nasal Cannula 2 07/23/24 03:33 36.6 C 84 18 94 Nasal Cannula 2 PG Care Time/CCT Total # of Minutes Spent Total Time Spent with Patient: Total time spent is greater than 50% in coordination of care (as documented) at patient's floor/unit and/or counseling patient: Coding Level of Care Code 03317 SUB INP/OBS CARE 2/35MIN Diagnoses Esophageal dysmotility K22.4
[2024-07-24 09:11] LABS: Hematocrit (blood only) 31.4 % (37.0-47.0); Hemoglobin 10.2 g/dl (12.0-16.0); Mean Corpuscular Hemoglobin 28.4 pg (25.0-34.0); Mean Corpuscular Hgb Conc 32.5 g/dL (32.0-36.0); Mean Corpuscular Volume 87.5 fL (80.0-100.0); Mean Platelet Volume 10.5 fL (9.4-12.4); Platelet Count 178 K/uL (130-400); RDW Coefficient of Variation 14.6 % (11.5-14.5); RDW Standard Deviation 46.9 fL (36.4-46.3); Red Blood Count 3.59 M/uL (4.20-5.40); White Blood Count 8.49 K/ul (4.8-10.8)
[2024-07-24 09:38] LABS: BUN Creatinine Ratio 21.4 (10-20); Calcium 8.3 mg/dl (8.6-10.3); Creatinine Clr Calc Pharmacy 29.5 ml/min; Magnesium 1.6 mg/dl (1.7-2.4)
[2024-07-24] MEDS: MAGNESIUM SULFATE / D5W 1 GM/100 ML BAG IV SCH (10:50)
[2024-07-24] MEDS: POTASSIUM CHLORIDE / WTR 10 MEQ/100 ML PLCT IV SCH (10:53)
--- NOTE | 2024-07-24 14:30 | Communication Note ---
Date of Service: July 24, 2024 Patient is an 83 yo female with poor po intake. She had an an EGD and path returned showing ulcerative esophagitis. Would advise treating with BID PPI, Famotidine PPI, & Can add Carafate QID. If still struggling with oral intake family would have to decide how they feel about artificial nutrition.
--- NOTE | 2024-07-24 16:32 | Hospitalist Progress Note ---
Date of Service July 24, 2024 Assessment & Plan (1) Early satiety: (2) Dysphagia: (3) Severe malnutrition: (4) Unintentional weight loss: (5) Adult failure to thrive: (6) Esophageal dysmotility: (7) Ulcerative esophagitis: (8) RSV (respiratory syncytial virus infection): (9) Chronic respiratory failure with hypoxia and hypercapnia: (10) Pressure ulcer of right buttock, stage 3: Plan Leela Villanueva is an 83y/o F with PMHx significant for chronic respiratory failure with hypoxia on 2L NC, COPD, ILD, PAF anticoagulated on Eliquis, chronic HFpEF [EF = 60-64%; 05/2024], HLD, hypothyroidism, GERD, migraines, benign paroxysmal vertigo, CIELO and depression who presented to the ED on 07/19/24 with complaints of early satiety, unintentional weight loss and failure to thrive ISO dysphagia. Recent hospitalization at [facility] in May 2024 2/2 atrial fibrillation/flutter in which she underwent cardioversion and has since remained in sinus rhythm. During that time, there was also noted to be some issues with swallowing. Had video swallow was done which did not show any significant aspiration and speech recommended an easy to chew diet. From there, patient was discharged to [facility] (SNF). Patient had to be readmitted to a [facility] facility while at rehab 2/2 pneumonia. Again had complaints of difficulty swallowing/early satiety during that hospitalization. It was recommended she see a GI provider as an outpatient. She ended up being discharged home from that hospitalization. She was recently seen in the outpatient GI setting at [facility] on 07/16/24 and had scheduled an outpatient EGD for 08/01/24. Family was concerned that the patient would not make it to that outpatient EGD due to persistent poor intake and therefore was brought to [facility] again for further evaluation regarding her early satiety/dysphagia. Patient has lost ~30lbs since May 2024 per family. Early Satiety & Dysphagia Ulcerative Esophagitis, Severe Malnutrition + Failure to Thrive ISO Severe Esophageal Dysmotility: Underwent EGD with GI on 07/22. EGD revealed slight corkscrew appearance of esophagus however it was not dilated. There was no retained food in the esophagus itself. EGD did however note mucosal breaks above the GE junction consistent with superficial ulcerations - atypical for reflux. Biopsies performed which came back + for ulcerative esophagitis. Carafate QID added on. Barium swallow study on 07/23 with severe esophageal dysmotility. Suspect pill- induced esophagitis likely 2/2 po iron supplements ISO severe dysmotility. Holding iron supplementation for now. Remeron added on to increase appetite stimulation - may benefit from increase in dose to 45mg for stronger effectiveness. She is tolerating a pured diet. Aspiration precautions. Dietitian evaluated on 07/20 - Boost supplementation TID added on. Daily weights ordered. Spoke with some of the patient's family later this afternoon at bedside. This included the patient's (Carson), [id number] (Beatriz Lazcano) and 2 sons - including Morris who was on speaker phone and with whom I've been in daily contact with. Discussed GOC moving forward. Carson would like for her to be transitioned back home following a short-term SNF placement however Morris raises strong concern regarding her going home vs staying in a long-term care facility since his father and brother (whom she lives with) would not be physically able to care for her well 2/2 their own physical limitations. Will plan for palliative care consult to further discuss GOC. Family is all agreeable with quality of live > quantity however cannot agree on the best course for placement. Reached out to Izabella King DNP via TT to make her aware of the consult. She is planning on see her tomorrow. Anemia: Hgb 11.2 on admission --> 9.2 on 07/21 --> 10.2 today. Hgb was 12 back in May 2024 on discharge. Iron panel reviewed. Ferritin 502.6 likely 2/2 malnutrition, iron 37. Holding iron supplement as per above. No s/sx of bleeding. Suspect mostly 2/2 nutritional status given weight loss. No indication for transfusion at this time. TSH WNL this admission. No active bleeding on EGD. Continue to hold Eliquis. Acute RSV Infection - Noted on 07/22/24 Chronic Hypoxic Respiratory Failure ISO COPD and ILD on 2L NC & Chronic Hypercarbia: Noted moist cough on exam on 07/22. Rhonchi heard in bilateral lung bases as well. recently developed URI symptoms and was in to see her over the weekend. Respiratory BioFire panel ordered and came back positive for RSV on 07/22. Repeat CXR ordered which revealed subsegmental atelectasis in the lung bases but thankfully no evidence of consolidation. Continue droplet precautions and symptomatic management. Bilateral rhonchi stable on exam. Continues to saturate well on baseline 2L NC. No increase in O2 requirement. Patient not c/o SOB. Encourage incentive spirometer, flutter valve use as able. Continue home inhalers/nebs/PRN antitussives. PAF: Chronic, noted to be in NSR on telemetry in ED. Eliquis currently on hold. Continue sotalol. Monitor and manage electrolytes PRN. Chronic HFpEF: Trace BLE edema stable on exam. Repeat CXR on 07/22 w/o evidence of vascular congestion. Continue to closely monitor volume status. Resting echo from 05/2024 reviewed --> EF = 60-64%, increased concentric LV wall thickness, normal LV wall motion, grade I DD, mildly enlarged LA, mild MR and mild TR. Pressure Ulcer of R Buttock, Stage III: WOCN consulted. R lower medial buttock pressure ulcer with 26-50% slough. Q2H repositioning, routine dressings per WOCN. Other Chronic Medical Conditions: Hypothyroidism - TSH WNL, continue levothyroxine. GERD - Transitioned po PPI to IV PPI 2/2 ulcerations on EGD. HLD - Continue statin. 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 Code Status: FULL CODE - Confirmed with patient's son, Marino, again on 07/23. PCP: Umair Gillis, Disposition: Palliative consult pending to better determine overall GOC and ideal placement situation for the patient moving forward. Patient seen in collaboration with Dr. Lin. Please see addendum. I spent a total of 45 minutes coordinating, documenting, and providing care for this patient excluding time spent in the performance of separately billed services or time spent by another provider/QHP. This included personally reviewing all current laboratories and imaging studies, medical reconciliation, outpatient chart review and discussion with specialists. This chart was completed in part utilizing Speech Voice Recognition Software. Grammatical errors, random word insertions, pronoun errors, and incomplete sentences are an occasional consequence of this system due to software limitations, ambient noise, and hardware issues. Any formal questions or concerns about the content, text, or information contained within the body of this dictation should be directly addressed to the provider for clarification. Admission and Anticipated Discharge Date Admission Date: July 19, 2024 Supervising Physician Co-Signing Physician Notes I have seen and discussed the case with the collaborating advanced practitioner. I agree with the above PN. I have reviewed and confirmed the patients medical history, the findings on physical examination, and the patients diagnosis and treatment plan with Lalo MONTOYA and agree with the information documented. In short, Ms. Villanueva is an 83 yo admitted for dysphagia and found to have ulcerative esophagitis. Started on PPI BID, famotidine, Carafate Palliative consult to really help align GoC--multiple family members contributing and question of potential future for artificial nutrition I spent a total of 15 minutes coordinating, documenting, and providing care for this patient excluding time spent in the performance of separately billed services. All of the aforementioned completed outside of collaborating with the assigned advanced practitioner for a full treatment plan. I have reviewed the advanced practitioner's documentation, and I agree with, and take responsibility for the plan of care Subjective Patient seen and examined at bedside this morning in room N387-2. No family at bedside during my evaluation. Patient is very [place] at baseline; hearing in R ear > L ear. More alert this morning and engaged with conversation. Spoke with RN, Janiya. Patient ate some breakfast this morning. Currently on pured diet with Boost supplementation. Review of Systems Review of Systems: At least ten systems reviewed and negative, except as noted in the subjective section. Physical Exam Physical Exam: General: Thin elderly F, sitting up in bed. NAD. More engaged in conversation today. A+Ox2 to basic questioning. HEENT: Normocephalic, atraumatic. Conjunctivae normal. External ear and nose normal, oropharynx dry. Respiratory: NAD. On 2L NC. Moist cough. Lung sounds diminished bilaterally, mild rhonchi in bilateral lung bases. Cardiovascular: Regular rate, rhythm, trace BLE edema, BLE PAULINA stockings in place. Abdomen/GI: Normal bowel sounds, soft, nondistended, nontender to palpation in all quadrants. Results & Data Results & Data Vital Signs (Past 12 Hours) Vital Signs Temp Pulse Resp BP Pulse Ox O2 Del Method O2 Flow Rate 07/24/24 14:53 96 07/24/24 14:25 36.5 C 72 16 149/73 H 96 Nasal Cannula 2.0 07/24/24 09:40 72 126/76 07/24/24 08:30 Nasal Cannula 2 07/24/24 07:35 66 16 95 Nasal Cannula 2 07/24/24 07:23 36.6 C 78 16 153/81 H 94 Nasal Cannula 2.0 Laboratory Results Short CBC 07/24/24 Range/Units 08:43 WBC 8.49 (4.8-10.8) K/ul Hgb 10.2 L (12.0-16.0) g/dl Hct 31.4 L (37.0-47.0) % Plt Count 178 (130-400) K/uL BMP 07/24/24 08:43 Sodium 144 Potassium 3.0 L D Chloride 101 Carbon Dioxide 39 H BUN 24 H Creatinine 1.12 Glucose 97 Calcium 8.3 L (2) Dysphagia Dysphagia type: unspecified Qualified Code(s): R13.10 - Dysphagia, unspecified (8) RSV (respiratory syncytial virus infection) RSV infection type: unspecified Qualified Code(s): B33.8 - Other specified viral diseases
[2024-07-24] MEDS: SUCRALFATE 1 GM/10 ML UDC PO SCH (17:15)
[2024-07-24] MEDS: bisacodyL 5 MG TABEC PO ONE (21:18)
[2024-07-25 08:26] LABS: Hemoglobin 11.2 g/dl (12.0-16.0); Mean Corpuscular Hemoglobin 28.6 pg (25.0-34.0); Mean Corpuscular Hgb Conc 32.9 g/dL (32.0-36.0); Mean Corpuscular Volume 86.7 fL (80.0-100.0); Mean Platelet Volume 10.4 fL (9.4-12.4); Platelet Count 192 K/uL (130-400); RDW Coefficient of Variation 14.6 % (11.5-14.5); RDW Standard Deviation 46.4 fL (36.4-46.3); Red Blood Count 3.92 M/uL (4.20-5.40)
[2024-07-25 08:53] LABS: BUN Creatinine Ratio 18.9 (10-20); Calcium 8.4 mg/dl (8.6-10.3); Creatinine Clr Calc Pharmacy 33.4 ml/min; Potassium 3.2 mmol/L (3.5-5.1)
--- NOTE | 2024-07-25 09:59 | Palliative Care Consultation ---
Date of Consultation July 25, 2024 Assessment & Plan (1) Anorexia: (2) Cachexia: (3) Weakness generalized: (4) Advanced care planning/counseling discussion: A 50 min face to face ACP was held at bedside for Mrs Villanueva along with her son, Morris. Her and other son Eduardo, who lives with her, were not able to be here and unavailable by phone. I met with the patient and son, Morris. She is consistently clear about not wanting anything extensive done and not wanting to linger or prolong any suffering. She does not want PEG/JESUS. She does not want artificial life support. She wants a natural ideally to be home with family but her caregiver support is very limited with and son both being disabled and physically unable to meet her needs mariano with personal care/bathing/hygiene. She agreed to a no code, does not want to live on machines. She states "I don't ever want to be just be lying here, doing nothing. Never." Son Morris is in agreement. He shares there are 2 more sons, one is entirely in opposition to anything but aggressive care. He feels a family meeting at bedside with pt is needed to convey the gravity of the situation but adds he is unable to rally the family together for a meeting today/likely not tomorrow and said the earliest he anticipates everyone being able to come for a meeting might be or Monday/Monday - one brother works nights and some accommodation to his schedule needs made. I advised morris and pt I am not here on weekends but we are available inpatient service through the week and if Monday is referred, he will meet with my partner, Mirna Watson. I gave Morris some available times for me to be available to meet with them and told him that if it is on Monday, it would be Mirna meeting with them as I am in clinic. He said he is going to speak with his family with the assistance of his daughter, who is a RN at [facility] [facility] and she will be available to come up here on the weekend to help navigate that conversation with the rest of the family. She has been the one supporting him through this journey and admission and has also the one who told him to ask for a palliative consult. (5) Esophageal dysmotility: (6) Palliative care by specialist: Introduced Palliative Medicine and explained our role in patient's care. Patient and/or family were receptive to palliative services for goals of care discussions. Reviewed we are different from hospice, a home health nurse visiting service. Plan As above pt has expressed wish for DNR/DNI but Morris, her son, notes she has easily changed her decision with pressure from and the other sons x2/one of whom is very aggressive/hostile with medical teams, so Morris prefers we wait to have a family meeting with everyone here before making the formal change in code status. Thank you for allowing us to participate in the ongoing care of this patient. Please page with any additional concerns. Nina King DNP Director, Palliative Medicine History of Present Illness Reason for Consultation: goals Attending Physician: Carmen Lin MD History of Present Illness From admitting team notes: "Leela Villanueva is an 83y/o F with PMHx significant for chronic respiratory failure with hypoxia on 2L NC, COPD, ILD, PAF antico agulated on Eliquis, chronic HFpEF [EF = 60-64%; 05/2024], HLD, hypothyroidism, GERD, migraines, benign paroxysmal vertigo, CIELO and depression who presented to the ED on 07/19/24 with complaints of early satiety, unintentional weight loss and failure to thrive ISO dysphagia. Recent hospitalization at [facility] in May 2024 2/2 atrial fibrillation/flutter in which she underwent cardioversion and has since remained in sinus rhythm. During that time, there was also noted to be some issues with swallowing. Had video swallow was done which did not show any significant aspiration and speech recommended an easy to chew diet. From there, patient was discharged to [facility] (SNF). Patient had to be readmitted to a [facility] facility while at rehab 2/2 pneumonia. Again had complaints of difficulty swallowing/early satiety during that hospitalization. It was recommended she see a GI provider as an outpatient. She ended up being discharged home from that hospitalization. She was recently seen in the outpatient GI setting at [facility] on 07/16/24 and had scheduled an outpatient EGD for 08/01/24. Family was concerned that the patient would not make it to that outpatient EGD due to persistent poor intake and therefore was brought to [facility] again for further evaluation regarding her early satiety/dysphagia. Patient has lost ~30lbs since May 2024 per family Ulcerative Esophagitis, Severe Malnutrition + Failure to Thrive ISO Severe Esophageal Dysmotility: Underwent EGD with GI on 07/22. EGD revealed slight corkscrew appearance of esophagus however it was not dilated. There was no retained food in the esophagus itself. EGD did however note mucosal breaks above the GE junction consistent with superficial ulcerations - atypical for reflux. Biopsies performed which came back + for ulcerative esophagitis. Carafate QID added on. Barium swallow study on 07/23 with severe esophageal dysmotility. Suspect pill- induced esophagitis likely 2/2 po iron supplements ISO severe dysmotility. Holding iron supplementation for now. Remeron added on to increase appetite stimulation - may benefit from increase in dose to 45mg for stronger effectiveness. She is tolerating a pured diet. Aspiration precautions. Dietitian evaluated on 07/20 - Boost supplementation TID added on. Daily weights ordered. Spoke with some of the patient's family later this afternoon at bedside. This included the patient's (Carson), [id number] (Beatriz Lazcano) and 2 sons - including Morris who was on speaker phone and with whom I've been in daily contact with. Discussed GOC moving forward. Carson would like for her to be transitioned back home following a short-term SNF placement however Morris raises strong concern regarding her going home vs staying in a long-term care facility since his father and brother (whom she lives with) would not be physically able to care for her well 2/2 their own physical limitations. Will plan for palliative care consult to further discuss GOC. Family is all agreeable with quality of live > quantity however cannot agree on the best course for placement. Reached out to Izabella King DNP via TT to make her aware of the consult. She is planning on see her tomorrow." In addition, Leela has COPD, resp failure, RSV + 07/22/24, PAF, HFpEF, pressure ulcer Right gluteal Stage III, hypothyroid. Allergies Allergy/AdvReac Type Severity Reaction Status Date / Time iodine Allergy Severe ORAL AND Verified 06/09/24 21:04 FACIAL SWELLING methadone Allergy Severe Shakiness Verified 06/09/24 21:04 propoxyphene Allergy Severe Shakiness Verified 06/09/24 21:04 shellfish derived Allergy Severe ORAL AND Verified 06/09/24 21:04 FACIAL SWELLING clarithromycin Allergy Unknown unknown Verified 06/09/24 21:04 prednisone Allergy Unknown Shakiness Verified 06/09/24 21:04 Serotonin 5HT-3 Antagonists Allergy Unknown Anxiety Verified 06/09/24 21:04 morphine AdvReac Unknown LIGHTHEADED Verified 06/09/24 21:04 Home Medications Medication Instructions Recorded Confirmed Type albuterol sulfate 90 mcg/actuation 2 puff inhalation Q6H PRN 06/09/24 07/19/24 History aerosol inhaler (Ventolin HFA) Shortness Of Breath Or Wheezing amitriptyline 25 mg tablet 25 mg PO HS 06/09/24 07/19/24 History arformoterol 15 mcg/2 mL solution 15 mcg inhalation BID 06/09/24 07/19/24 History for nebulization budesonide 0.5 mg/2 mL suspension 0.5 mg inhalation BID 06/09/24 07/19/24 History for nebulization clonazepam 0.5 mg tablet 0.25 mg PO Q6H PRN Anxiety 06/09/24 07/19/24 History furosemide 40 mg tablet 40 mg PO UD 06/09/24 07/19/24 History levothyroxine 125 mcg tablet 125 mcg PO DAILY 06/09/24 07/19/24 History apixaban 5 mg tablet (Eliquis) 5 mg PO BID 30 days #60 tabs 06/20/24 07/19/24 Rx ferrous sulfate 325 mg (65 mg 325 mg PO QAM 30 days #30 tabs 06/20/24 07/19/24 Rx iron) tablet,delayed release magnesium oxide 400 mg (241.3 mg 400 mg PO QAM 30 days #30 tabs 06/20/24 07/19/24 Rx magnesium) tablet pantoprazole 40 mg tablet,delayed 40 mg PO DAILY 30 days #30 tabs 06/20/24 07/19/24 Rx release rosuvastatin 20 mg tablet 20 mg PO DAILY 30 days #30 tabs 06/20/24 07/19/24 Rx sotalol 80 mg tablet 120 mg (1.5 x 80 mg) PO BID 30 06/20/24 07/19/24 Rx days #90 tabs Patient History Medical History Dyslipidemia Chronic heart failure with perserved EF SOB (shortness of breath) Multifactorial per pulmonary- chronic HF, chronic hypoxic respiratory failure, possible ILD, asthma, obesity, Covid infection 07/2020, multifocal consolidations/scarring, non allergic rhinitis History of pneumonia 12/2020 - required cont oxygen upon d/c from hospital and remains on Fear of needles Limb alert care status LUE Difficult intravenous access required assistance from IV team in past History of COVID-19 06/2020; asymptomatic Sleep apnea unable to tolerate CPAP History of home oxygen therapy 2 lpm cont- secondary to chronic hypoxic respiratory failure per pulm Tachycardia ANXIETY RELATED PER PATIENT. follows with Dr. Arguello Breast cancer Left breast 2001- sx + radiation GERD (gastroesophageal reflux disease) Hypothyroidism Anxiety Hx of deep venous thrombosis LLE - "years ago" - r/t injury Asthma Follows with [facility]. Uses PRN neb daily Surgical History History of lumpectomy of left breast History of breast biopsy History of removal of cyst History of bilateral tubal ligation History of arthroscopy BILAT KNEES History of esophagogastroduodenoscopy (EGD) History of colonoscopy Hx of hernia repair History of cholecystectomy Social History Smoking Status: Never smoker Second Hand Exposure: Yes (sister smokes); Do You Dip or Chew Tobacco: No; Hx Alcohol Use: No Hx Substance Use: No Preferred Language: Czech Communication Ability: Impaired Communication Ability Comment: extremely CADDO, no hearing aids. endentulous, speech difficult to understand Guide Winder Required: No Beliefs That Will Affect Care: None Current Living Situation: Spouse Other Information That Helps Us Care for You: No Feels Safe at Home: Yes Safety Concerns: Feels Safe At This Time Assistive Devices: Walker Assistive Devices Comment: dentures not with pt Review of Systems Review of Systems: All systems reviewed & are unremarkable except as noted in Subjective Physical Exam Constitutional: + ill appearing, + cachectic, + physical limitations and + frail appearing Eyes: PERRL, conjunctivae normal, anicteric sclerae ENMT: dentition fair, MM sl dry Neck: normal visual inspection and trachea midline Respiratory: + cough, able to speak in complete sente nces, + prolonged expiratory phase and symmetric chest movement Cardiovascular: Rate/Rhythm: + irregularly irregular Gastrointestinal (Abdomen): Inspection/Auscultation: + scaphoid Percussion/Palpation: abdomen soft Musculoskeletal: gen weakness Skin: + turgor decreased, + skin atrophy, + dr y skin and + brittle hair Neurologic: gen weakness Psychiatric: Orientation: alert and oriented x 3 Apperance: appropriately dressed and appeared stated age Eye Contact: + fair eye contact Speech: normal rate/rhythm/volume of speech Cognition: recent memory grossly intact, remote memory grossly intact, attention grossly intact and language grossly intact Estimated Intelligence: consistent with education level Insight: excellent insight Judgment: excellent judgement Results & Data Vital Signs (Past 12 Hours) Vital Signs Temp Pulse Resp BP Pulse Ox O2 Del Method O2 Flow Rate 07/25/24 08:01 86 20 90 Nasal Cannula 2 07/25/24 06:32 36.9 C 80 18 152/91 H 93 Nasal Cannula 2 Laboratory Results 07/26/24 07/25/24 07/24/24 Range/Units 07:37 08:00 18:39 WBC 6.71 7.70 (4.8-10.8) K/ul RBC 3.80 L 3.92 L (4.20-5.40) M/uL Hgb 10.7 L 11.2 L (12.0-16.0) g/dl Hct 32.8 L 34.0 L (37.0-47.0) % MCV 86.3 86.7 (80.0-100.0) fL MCH 28.2 28.6 (25.0-34.0) pg MCHC 32.6 32.9 (32.0-36.0) g/dL RDW Std Deviation 45.6 46.4 H (36.4-46.3) fL RDW Coeff of Neena 14.6 H 14.6 H (11.5-14.5) % Plt Count 162 192 (130-400) K/uL MPV 10.4 10.4 (9.4-12.4) fL Immature Gran % (Auto) % Neut % (Auto) % Lymph % (Auto) % Steele % (Auto) % Eos % (Auto) % Baso % (Auto) % Neut # (Auto) (1.40-6.50) K/uL Lymph # (Auto) (1.20-3.40) K/uL Steele # (Auto) (0.11-0.59) K/uL Eos # (Auto) (0.00-0.50) K/uL Baso # (Auto) (0.00-0.20) K/uL Immature Gran # (Auto) (0.01-0.20) K/uL Sodium 143 143 (136-145) mmol/L Potassium 3.1 L 3.2 L D 4.1 D (3.5-5.1) mmol/L Chloride 97 L 99 (98-107) mmol/L Carbon Dioxide 40 H 40 H (21-32) mmol/L Anion Gap 6 4 (3-11) BUN 19 18 (6-23) mg/dl Creatinine 0.89 0.95 (0.6-1.2) mg/dl Est Cr Clr Drug Dosing 35.6 33.4 eGFR 64.69 59.82 BUN/Creatinine Ratio 21.3 H 18.9 (10-20) Glucose 81 106 H (70-99(Fasting)) mg/dl Calcium 8.2 L 8.4 L (8.6-10.3) mg/dl Phosphorus (2.5-4.9) mg/dl Magnesium 1.8 2.0 (1.7-2.4) mg/dl Iron (35-150) mcg/dl TIBC (250-450) mcg/dl Transferrin (200-360) mg/dl Transferrin % Sat (15-50) % Ferritin (8-388) ng/ml Total Bilirubin (0.2-1.0) mg/dl AST (13-39) U/L ALT (7-52) U/L Alkaline Phosphatase (34-104) U/L C-Reactive Protein (0-0.5) mg/dl Total Protein (6.0-8.3) gm/dl Albumin (3.4-5.0) gm/dl Globulin (2.5-4.0) gm/dl Albumin/Globulin Ratio (0.9-2) Vitamin B12 (180-914) pg/ml Folate (>5.38) ng/ml TSH (0.300-4.500) uIu/ml Urine Color Urine Appearance (Clear) Urine pH (4.5-7.5) Ur Specific [place] (1.000-1.030) Urine Protein (Negative) Urine Glucose (UA) (Negative) Urine Ketones (Negative) Urine Blood (Negative) Urine Nitrite (Negative) Urine Bilirubin (Negative) Urine Urobilinogen (Negative) Ur Leukocyte Esterase (Negative) Urine WBC (Auto) (0-5) /hpf Urine RBC (Auto) (0-2) /hpf U Hyaline Cast (Auto) (0-2) /lpf U Epithel Cells (Auto) (0-2) /hpf Urine Bacteria (Auto) (None Seen) Adenovirus (PCR) (NotDetected) B. pertussis DNA (PCR) (NotDetected) B.parapertussis DNA PCR (NotDetected) C. pneumoniae DNA (PCR) (NotDetected) Coronavirus OC43 (PCR) (NotDetected) Coronavirus HKU1 (PCR) (NotDetected) Coronavirus 229E (PCR) (NotDetected) SARS-CoV-2 (PCR) (NotDetected) Coronavirus NL63 (PCR) (NotDetected) Human Metapneumovir PCR (NotDetected) Influenza Type A (PCR) (NotDetected) Influenza Type B (PCR) (NotDetected) M. pneumoniae (PCR) (NotDetected) Parainfluenza 1 (PCR) (NotDetected) Parainfluenza 2 (PCR) (NotDetected) Parainfluenza 3 (PCR) (NotDetected) Parainfluenza 4 (PCR) (NotDetected) RSV (PCR) (NotDetected) Entero/Rhino (PCR) (NotDetected) 07/24/24 07/23/24 07/22/24 Range/Units 08:43 07:20 Unknown WBC 8.49 7.04 (4.8-10.8) K/ul RBC 3.59 L 3.69 L (4.20-5.40) M/uL Hgb 10.2 L 10.4 L (12.0-16.0) g/dl Hct 31.4 L 32.2 L (37.0-47.0) % MCV 87.5 87.3 (80.0-100.0) fL MCH 28.4 28.2 (25.0-34.0) pg MCHC 32.5 32.3 (32.0-36.0) g/dL RDW Std Deviation 46.9 H 46.2 (36.4-46.3) fL RDW Coeff of Neena 14.6 H 14.6 H (11.5-14.5) % Plt Count 178 160 (130-400) K/uL MPV 10.5 10.8 (9.4-12.4) fL Immature Gran % (Auto) % Neut % (Auto) % Lymph % (Auto) % Steele % (Auto) % Eos % (Auto) % Baso % (Auto) % Neut # (Auto) (1.40-6.50) K/uL Lymph # (Auto) (1.20-3.40) K/uL Steele # (Auto) (0.11-0.59) K/uL Eos # (Auto) (0.00-0.50) K/uL Baso # (Auto) (0.00-0.20) K/uL Immature Gran # (Auto) (0.01-0.20) K/uL Sodium 144 145 (136-145) mmol/L Potassium 3.0 L D 3.8 (3.5-5.1) mmol/L Chloride 101 102 (98-107) mmol/L Carbon Dioxide 39 H 35 H (21-32) mmol/L Anion Gap 4 8 (3-11) BUN 24 H 20 (6-23) mg/dl Creatinine 1.12 1.18 (0.6-1.2) mg/dl Est Cr Clr Drug Dosing 29.5 28.0 eGFR 49.40 46.40 BUN/Creatinine Ratio 21.4 H 16.9 (10-20) Glucose 97 82 (70-99(Fasting)) mg/dl Calcium 8.3 L 8.3 L (8.6-10.3) mg/dl Phosphorus (2.5-4.9) mg/dl Magnesium 1.6 L 1.8 (1.7-2.4) mg/dl Iron (35-150) mcg/dl TIBC (250-450) mcg/dl Transferrin (200-360) mg/dl Transferrin % Sat (15-50) % Ferritin (8-388) ng/ml Total Bilirubin (0.2-1.0) mg/dl AST (13-39) U/L ALT (7-52) U/L Alkaline Phosphatase (34-104) U/L C-Reactive Protein (0-0.5) mg/dl Total Protein (6.0-8.3) gm/dl Albumin (3.4-5.0) gm/dl Globulin (2.5-4.0) gm/dl Albumin/Globulin Ratio (0.9-2) Vitamin B12 (180-914) pg/ml Folate (>5.38) ng/ml TSH (0.300-4.500) uIu/ml Urine Color Urine Appearance (Clear) Urine pH (4.5-7.5) Ur Specific [place] (1.000-1.030) Urine Protein (Negative) Urine Glucose (UA) (Negative) Urine Ketones (Negative) Urine Blood (Negative) Urine Nitrite (Negative) Urine Bilirubin (Negative) Urine Urobilinogen (Negative) Ur Leukocyte Esterase (Negative) Urine WBC (Auto) (0-5) /hpf Urine RBC (Auto) (0-2) /hpf U Hyaline Cast (Auto) (0-2) /lpf U Epithel Cells (Auto) (0-2) /hpf Urine Bacteria (Auto) (None Seen) Adenovirus (PCR) Not Detected (NotDetected) B. pertussis DNA (PCR) Not Detected (NotDetected) B.parapertussis DNA PCR Not Detected (NotDetected) C. pneumoniae DNA (PCR) Not Detected (NotDetected) Coronavirus OC43 (PCR) Not Detected (NotDetected) Coronavirus HKU1 (PCR) Not Detected (NotDetected) Coronavirus 229E (PCR) Not Detected (NotDetected) SARS-CoV-2 (PCR) Not Detected (NotDetected) Coronavirus NL63 (PCR) Not Detected (NotDetected) Human Metapneumovir PCR Not Detected (NotDetected) Influenza Type A (PCR) Not Detected (NotDetected) Influenza Type B (PCR) Not Detected (NotDetected) M. pneumoniae (PCR) Not Detected (NotDetected) Parainfluenza 1 (PCR) Not Detected (NotDetected) Parainfluenza 2 (PCR) Not Detected (NotDetected) Parainfluenza 3 (PCR) Not Detected (NotDetected) Parainfluenza 4 (PCR) Not Detected (NotDetected) RSV (PCR) DETECTED A (NotDetected) Entero/Rhino (PCR) Not Detected (NotDetected) 07/22/24 07/21/24 07/20/24 Range/Units 05:57 06:22 07:21 WBC 5.44 5.92 (4.8-10.8) K/ul RBC 3.34 L 3.23 L (4.20-5.40) M/uL Hgb 9.4 L 9.2 L (12.0-16.0) g/dl Hct 29.3 L 28.2 L (37.0-47.0) % MCV 87.7 87.3 (80.0-100.0) fL MCH 28.1 28.5 (25.0-34.0) pg MCHC 32.1 32.6 (32.0-36.0) g/dL RDW Std Deviation 44.4 45.3 (36.4-46.3) fL RDW Coeff of Neena 14.0 14.4 (11.5-14.5) % Plt Count 152 140 (130-400) K/uL MPV 10.6 11.3 (9.4-12.4) fL Immature Gran % (Auto) % Neut % (Auto) % Lymph % (Auto) % Steele % (Auto) % Eos % (Auto) % Baso % (Auto) % Neut # (Auto) (1.40-6.50) K/uL Lymph # (Auto) (1.20-3.40) K/uL Steele # (Auto) (0.11-0.59) K/uL Eos # (Auto) (0.00-0.50) K/uL Baso # (Auto) (0.00-0.20) K/uL Immature Gran # (Auto) (0.01-0.20) K/uL Sodium 144 144 (136-145) mmol/L Potassium 4.0 3.7 (3.5-5.1) mmol/L Chloride 103 102 (98-107) mmol/L Carbon Dioxide 41 H* 39 H (21-32) mmol/L Anion Gap 0 L 3 (3-11) BUN 11 12 (6-23) mg/dl Creatinine 1.18 1.18 (0.6-1.2) mg/dl Est Cr Clr Drug Dosing 28.0 28.0 eGFR 46.40 46.40 BUN/Creatinine Ratio 9.3 L 10.2 (10-20) Glucose 84 75 (70-99(Fasting)) mg/dl Calcium 8.1 L 8.2 L (8.6-10.3) mg/dl Phosphorus 2.9 (2.5-4.9) mg/dl Magnesium 2.2 1.6 L (1.7-2.4) mg/dl Iron 37 (35-150) mcg/dl TIBC 179 L (250-450) mcg/dl Transferrin 128 L (200-360) mg/dl Transferrin % Sat 21 (15-50) % Ferritin 502.6 H (8-388) ng/ml Total Bilirubin (0.2-1.0) mg/dl AST (13-39) U/L ALT (7-52) U/L Alkaline Phosphatase (34-104) U/L C-Reactive Protein 2.03 H (0-0.5) mg/dl Total Protein (6.0-8.3) gm/dl Albumin (3.4-5.0) gm/dl Globulin (2.5-4.0) gm/dl Albumin/Globulin Ratio (0.9-2) Vitamin B12 881 (180-914) pg/ml Folate 9.15 (>5.38) ng/ml TSH 3.367 (0.300-4.500) uIu/ml Urine Color Urine Appearance (Clear) Urine pH (4.5-7.5) Ur Specific [place] (1.000-1.030) Urine Protein (Negative) Urine Glucose (UA) (Negative) Urine Ketones (Negative) Urine Blood (Negative) Urine Nitrite (Negative) Urine Bilirubin (Negative) Urine Urobilinogen (Negative) Ur Leukocyte Esterase (Negative) Urine WBC (Auto) (0-5) /hpf Urine RBC (Auto) (0-2) /hpf U Hyaline Cast (Auto) (0-2) /lpf U Epithel Cells (Auto) (0-2) /hpf Urine Bacteria (Auto) (None Seen) Adenovirus (PCR) (NotDetected) B. pertussis DNA (PCR) (NotDetected) B.parapertussis DNA PCR (NotDetected) C. pneumoniae DNA (PCR) (NotDetected) Coronavirus OC43 (PCR) (NotDetected) Coronavirus HKU1 (PCR) (NotDetected) Coronavirus 229E (PCR) (NotDetected) SARS-CoV-2 (PCR) (NotDetected) Coronavirus NL63 (PCR) (NotDetected) Human Metapneumovir PCR (NotDetected) Influenza Type A (PCR) (NotDetected) Influenza Type B (PCR) (NotDetected) M. pneumoniae (PCR) (NotDetected) Parainfluenza 1 (PCR) (NotDetected) Parainfluenza 2 (PCR) (NotDetected) Parainfluenza 3 (PCR) (NotDetected) Parainfluenza 4 (PCR) (NotDetected) RSV (PCR) (NotDetected) Entero/Rhino (PCR) (NotDetected) 07/19/24 07/19/24 Range/Units 20:15 14:18 WBC 8.78 (4.8-10.8) K/ul RBC 3.67 L (4.20-5.40) M/uL Hgb 10.7 L (12.0-16.0) g/dl Hct 31.9 L (37.0-47.0) % MCV 86.9 (80.0-100.0) fL MCH 29.2 (25.0-34.0) pg MCHC 33.5 (32.0-36.0) g/dL RDW Std Deviation 45.2 (36.4-46.3) fL RDW Coeff of Neena 14.3 (11.5-14.5) % Plt Count 161 (130-400) K/uL MPV 11.6 (9.4-12.4) fL Immature Gran % (Auto) 0.2 % Neut % (Auto) 74.2 % Lymph % (Auto) 18.8 % Steele % (Auto) 5.7 % Eos % (Auto) 0.8 % Baso % (Auto) 0.3 % Neut # (Auto) 6.51 H (1.40-6.50) K/uL Lymph # (Auto) 1.65 (1.20-3.40) K/uL Steele # (Auto) 0.50 (0.11-0.59) K/uL Eos # (Auto) 0.07 (0.00-0.50) K/uL Baso # (Auto) 0.03 (0.00-0.20) K/uL Immature Gran # (Auto) 0.02 (0.01-0.20) K/uL Sodium 140 (136-145) mmol/L Potassium 4.1 (3.5-5.1) mmol/L Chloride 99 (98-107) mmol/L Carbon Dioxide 37 H (21-32) mmol/L Anion Gap 4 (3-11) BUN 17 (6-23) mg/dl Creatinine 1.19 (0.6-1.2) mg/dl Est Cr Clr Drug Dosing Not Reportable eGFR 45.94 BUN/Creatinine Ratio 14.3 (10-20) Glucose 133 H (70-99(Fasting)) mg/dl Calcium 8.3 L (8.6-10.3) mg/dl Phosphorus (2.5-4.9) mg/dl Magnesium (1.7-2.4) mg/dl Iron (35-150) mcg/dl TIBC (250-450) mcg/dl Transferrin (200-360) mg/dl Transferrin % Sat (15-50) % Ferritin (8-388) ng/ml Total Bilirubin 0.4 (0.2-1.0) mg/dl AST 32 (13-39) U/L ALT 41 (7-52) U/L Alkaline Phosphatase 87 (34-104) U/L C-Reactive Protein (0-0.5) mg/dl Total Protein 6.2 (6.0-8.3) gm/dl Albumin 3.3 L (3.4-5.0) gm/dl Globulin 2.9 (2.5-4.0) gm/dl Albumin/Globulin Ratio 1.1 (0.9-2) Vitamin B12 (180-914) pg/ml Folate (>5.38) ng/ml TSH (0.300-4.500) uIu/ml Urine Color Yellow Urine Appearance Clear (Clear) Urine pH 5.5 (4.5-7.5) Ur Specific [place] 1.006 (1.000-1.030) Urine Protein Trace H (Negative) Urine Glucose (UA) Negative (Negative) Urine Ketones Negative (Negative) Urine Blood 1+ H (Negative) Urine Nitrite Negative (Negative) Urine Bilirubin Negative (Negative) Urine Urobilinogen Negative (Negative) Ur Leukocyte Esterase 1+ H (Negative) Urine WBC (Auto) 6-10 H (0-5) /hpf Urine RBC (Auto) 0-2 (0-2) /hpf U Hyaline Cast (Auto) 3-5 H (0-2) /lpf U Epithel Cells (Auto) 3-5 H (0-2) /hpf Urine Bacteria (Auto) None Seen (None Seen) Adenovirus (PCR) (NotDetected) B. pertussis DNA (PCR) (NotDetected) B.parapertussis DNA PCR (NotDetected) C. pneumoniae DNA (PCR) (NotDetected) Coronavirus OC43 (PCR) (NotDetected) Coronavirus HKU1 (PCR) (NotDetected) Coronavirus 229E (PCR) (NotDetected) SARS-CoV-2 (PCR) (NotDetected) Coronavirus NL63 (PCR) (NotDetected) Human Metapneumovir PCR (NotDetected) Influenza Type A (PCR) (NotDetected) Influenza Type B (PCR) (NotDetected) M. pneumoniae (PCR) (NotDetected) Parainfluenza 1 (PCR) (NotDetected) Parainfluenza 2 (PCR) (NotDetected) Parainfluenza 3 (PCR) (NotDetected) Parainfluenza 4 (PCR) (NotDetected) RSV (PCR) (NotDetected) Entero/Rhino (PCR) (NotDetected) Diagnostic Findings Chest X-Ray 07/19/24 13:32 XR chest 1V not portable CLINICAL HISTORY: pneumonia COMPARISON STUDY: 06/19/2024 FINDINGS: Stable mild cardiomegaly without pulmonary vascular congestion. There is mild stranding [place] in the lung bases, improved. No other consolidation or pleural effusion. No pneumothorax. IMPRESSION: Atelectasis or mild persistent pneumonia in the lung bases, improved. ACT 112: Negative or not required by law. Electronically signed by: Nestor Cordova M.D. 07/19/2024 3:04 PM Chest X-Ray 07/22/24 18:10 INDICATION: Cough. TECHNIQUE: Frontal radiograph of the chest. COMPARISON: Radiograph from 07/19/2024. FINDINGS: Mild cardiomegaly. Pulmonary vasculature appear within normal limits. Chronic appearing interstitial lung markings. Subsegmental atelectasis in the lung bases. No infiltrate, pleural effusion or pneumothorax. No acute osseous abnormality evident. IMPRESSION: No acute cardiopulmonary process. Electronically signed by Sedrick Chaudhari 07-22-2024 6:56 PM Barium Swallow X-Ray 07/23/24 13:00 SINGLE CONTRAST BARIUM SWALLOW CLINICAL HISTORY: abnormal appearance of the esophagus COMPARISON STUDY: Modified barium swallow June 17, 2024. FLUOROSCOPY TIME: 1.01 minutes FLUOROSCOPY IMAGES: 9 Ka,r: 7.85 mGy FINDINGS: Single contrast barium swallow was performed. No esophageal mass or stricture was identified although mucosal detail was diminished given single contrast technique. This exam was technically difficult given difficulty positioning. Severe esophageal dysmotility was noted. Therefore, gastroesophageal reflux was difficult to assess for. No hiatal hernia was identified. IMPRESSION: 1. Severe esophageal dysmotility. 2. No esophageal mass or stricture identified although mucosal detail diminished given single contrast technique. ACT 112: Negative or not required by law. Electronically signed by: Johnnie Hdz M.D. 07/23/2024 1:48 PM Chest X-Ray 07/26/24 08:51 XR chest 1V portable CLINICAL HISTORY: hypoxia COMPARISON STUDY: 07/22/2024 FINDINGS: Stable mild cardiomegaly without pulmonary vascular congestion. There is interval mild blunting of the right costophrenic angle. Otherwise stable stranding opacity in the lung bases with partial obscuration of the diaphragm. No pneumothorax. IMPRESSION: Bilateral lung base consolidation with possible small pleural effusions, stable on the left and mildly increased on the right. ACT 112: Negative or not required by law. Electronically signed by: Nestor Cordova M.D. 07/26/2024 9:19 AM PG Care Time/CCT Total # of Minutes Spent Total Time Spent with Patient: Total time spent is greater than 50% in coordination of care (as documented) at patient's floor/unit and/or counseling patient: I spent 130 minutes overall addressing this case: 20 min in medical data review/discussion with referring provider(s) and/or preparation for the visit 25 min in direct interaction with the patient/exam - pt is very CADDO and requires assist for position changes 50 min in Advance Care Planning/Goals of Care discussions as detailed above in note (must be >16min) 15 min in subsequent review and synthesis of assessment and plan 20 min communicating with other providers regarding the patient's case: primary team, nursing Advanced Care Planning 05583 Advanced Care Planning 30 Min 05130 Advanced Care Planning Additional 30 [place] [address] IN/OBS CONSULT LVL 5,80M (25 - SIGNIFICANT, SEPARATELY IDENTIFIABLE ) Patient Type New Medical Decision Making High Complexity Diagnoses Anorexia R63.0 Cachexia R64 Weakness generalized R53.1 Advanced care planning/counseling discussion Z71.89 Esophageal dysmotility K22.4 Palliative care by specialist Z51.5 Additional Codes Advanced Care Planning - 48946 Advanced Care Planning 30 Min: 32247 Advanced Care Planning 30 Min ([id number]) Advanced Care Planning - 52308 Advanced Care Planning Additional 30 Min: 29921 Advanced Care Planning Additional 30 Min ([id number])
[2024-07-25] MEDS: POTASSIUM CHLORIDE 20 MEQ/15 ML UDC PO STA (11:03)
--- NOTE | 2024-07-25 16:56 | Hospitalist Progress Note ---
Date of Service July 25, 2024 Assessment & Plan (1) Early satiety: (2) Dysphagia: (3) Severe malnutrition: (4) Unintentional weight loss: (5) Adult failure to thrive: (6) Esophageal dysmotility: (7) Ulcerative esophagitis: (8) RSV (respiratory syncytial virus infection): (9) Chronic respiratory failure with hypoxia and hypercapnia: (10) Pressure ulcer of right buttock, stage 3: Plan Leela Villanueva is an 83y/o F with PMHx significant for chronic respiratory failure with hypoxia on 2L NC, COPD, ILD, PAF anticoagulated on Eliquis, chronic HFpEF [EF = 60-64%; 05/2024], HLD, hypothyroidism, GERD, migraines, benign paroxysmal vertigo, CIELO and depression who presented to the ED on 07/19/24 with complaints of early satiety, unintentional weight loss and failure to thrive ISO dysphagia. Recent hospitalization at [facility] in May 2024 2/2 atrial fibrillation/flutter in which she underwent cardioversion and has since remained in sinus rhythm. During that time, there was also noted to be some issues with swallowing. Had video swallow was done which did not show any significant aspiration and speech recommended an easy to chew diet. From there, patient was discharged to [facility] (SNF). Patient had to be readmitted to a [facility] facility while at rehab 2/2 pneumonia. Again had complaints of difficulty swallowing/early satiety during that hospitalization. It was recommended she see a GI provider as an outpatient. She ended up being discharged home from that hospitalization. She was recently seen in the outpatient GI setting at [facility] on 07/16/24 and had scheduled an outpatient EGD for 08/01/24. Family was concerned that the patient would not make it to that outpatient EGD due to persistent poor intake and therefore was brought to [facility] again for further evaluation regarding her early satiety/dysphagia. Patient has lost ~30lbs since May 2024 per family. Early Satiety & Dysphagia Ulcerative Esophagitis, Severe Malnutrition + Failure to Thrive ISO Severe Esophageal Dysmotility Underwent EGD with GI on 07/22. EGD revealed slight corkscrew appearance of esophagus however it was not dilated. There was no retained food in the esophagus itself. EGD did however note mucosal breaks above the GE junction c onsistent with superficial ulcerations - atypical for reflux. Biopsies performed which came back + for ulcerative esophagitis. Carafate QID added on. Barium swallow study on 07/23 with severe esophageal dysmotility. Suspect pill- induced esophagitis likely 2/2 po iron supplements ISO severe dysmotility. Holding iron supplementation for now. Remeron added on to increase appetite stimulation - may benefit from increase in dose to 45mg for stronger effectiveness. She is tolerating a pured diet. Aspiration precautions. Dietitian evaluated on 07/20 - Boost supplementation TID added on. Daily weights ordered. Per previous provider: Spoke with some of the patient's family later this afternoon at bedside. This included the patient's (Carson), [id number] (Beatriz Lazcano) and 2 sons - including Morris who was on speaker phone and with whom I've been in daily contact with. Discussed GOC moving forward. Carson would like for her to be transitioned back home following a short-term SNF placement however Morris raises strong concern regarding her going home vs staying in a long-term care facility since his father and brother (whom she lives with) would not be physically able to care for her well 2/2 their own physical limitations. Will plan for palliative care consult to further discuss GOC. Family is all agreeable with quality of live > quantity however cannot agree on the best course for placement. Reached out to Izabella King DNP via TT to make her aware of the consult. She is planning on see her tomorrow. Palliative consult completed today, planning for family meeting tomorrow vs. Monday Anemia Hgb 11.2 on admission -> 9.2 on 07/21 --> 10.2 -> 11.2 today. Hgb was 12 back in May 2024 on discharge. Iron panel reviewed. Ferritin 502.6 likely 2/2 malnutrition, iron 37. Holding iron supplement as per above. No s/sx of bleeding. Suspect mostly 2/2 nutritional status given weight loss. No indication for transfusion at this time. TSH WNL this admission. No active bleeding on EGD. Acute RSV Infection - Noted on 07/22/24 Chronic Hypoxic Respiratory Failure ISO COPD and ILD on 2L NC & Chronic Hypercarbia Noted moist cough on exam on 07/22. Rhonchi heard in bilateral lung bases as well. recently developed URI symptoms and was in to see her over the weekend. Respiratory BioFire panel ordered and came back positive for RSV on 07/22. Repeat CXR ordered which revealed subsegmental atelectasis in the lung bases but no evidence of consolidation. Continue droplet precautions and symptomatic management. Bilateral rhonchi stable on exam. Continues to saturate well on baseline 2L NC. No increase in O2 requirement. Patient not c/o SOB. Encourage incentive spirometer, flutter valve use as able. Continue home inhalers/nebs/PRN antitussives. PAF Rhythm controlled on sotalol Eliquis held due to EGD - no active bleeding noted, hgb stable. Will resume Eliquis today however at reduced dose 2.5mg BID due to age > 80 and weight < 60kg Chronic HFpEF CXR on 07/22 w/o evidence of vascular congestion Resting echo from 05/2024 reviewed --> EF = 60-64%, increased concentric LV wall thickness, normal LV wall motion, grade I DD, mildly enlarged LA, mild MR and mild TR Lasix initially held due to concerns of dehydration, has increased BL LE edema on exam today, will resume Lasix at reduced dose 40 mg daily ([employer] dose 40mg BID) Pressure Ulcer of R Buttock, Stage III WOCN consulted. R lower medial buttock pressure ulcer with 26-50% slough. Q2H repositioning, routine dressings per WOCN. Hypothyroidism TSH WNL, continue levothyroxine GERD Transitioned po PPI to IV PPI 2/2 ulcerations on EGD HLD Continue statin. DVT Prophylaxis Resuming Eliquis as above PCP: Umair Gillis, Disposition: Palliative consult/family meeting pending to better determine overall GOC and ideal placement situation for the patient moving forward. I spent a total of 20 minutes coordinating, documenting, and providing care for this patient excluding time spent in the performance of separately billed services. This included personally reviewing all current laboratories and imaging studies, medication reconciliation, outpatient chart review, and discussion with specialists. Admission and Anticipated Discharge Date Admission Date: July 19, 2024 Supervising Physician Co-Signing Physician Notes I have seen and discussed the case with the collaborating advanced practitioner. I agree with the above PN. I have reviewed and confirmed the patients medical history, the findings on physical examination, and the patients diagnosis and treatment plan with Lalo MONTOYA and agree with the information documented. In short, Ms. Villanueva is an 84 yo admitted for dysphagia and found to have ulcerative esophagitis. Started on PPI BID, famotidine, Carafate Palliative consulted: plan for GOC discussion to determine dispo plan I spent a total of 15 minutes coordinating, documenting, and providing care for this patient excluding time spent in the performance of separately billed services. All of the aforementioned completed outside of collaborating with the assigned advanced practitioner for a full treatment plan. I have reviewed the advanced practitioner's documentation, and I agree with, and take responsibility for the plan of care Subjective Follow-up for severe esophageal dysmotility. Patient seen and examined. Resting in bed. Son visiting at bedside. Patient was able to eat breakfast but did not have much for lunch. Patient denies pain, shortness of breath, nausea. Palliative consult completed this AM, trying for family meeting tomorrow or Monday. Physical Exam Constitutional: no acute distress Chronically ill-appearing Respiratory: normal respiratory effort; no respiratory distress Auscultation: + diminished lung sounds Cardiovascular: Rate/Rhythm: regular rate and regular rhythm Vessels: normal peripheral pulses Extremities: + edema (+1-2 edema BLE) Gastrointestinal (Abdomen): Percussion/Palpation: abdomen soft; abdomen nontender Skin: no rashes, warm and dry Neurologic: no focal motor deficits Psychiatric: A+Ox3, euthymic affect Results & Data Results & Data Vital Signs (Past 12 Hours) Vital Signs Temp Pulse Resp BP Pulse Ox O2 Del Method O2 Flow Rate 07/25/24 15:05 36.5 C 74 16 165/95 H 94 Nasal Cannula 3.0 07/25/24 14:23 95 07/25/24 08:01 86 20 90 Nasal Cannula 2 07/25/24 07:45 Room Air 07/25/24 06:32 36.9 C 80 18 152/91 H 93 Nasal Cannula 2 Laboratory Results Short CBC 07/25/24 Range/Units 08:00 WBC 7.70 (4.8-10.8) K/ul Hgb 11.2 L (12.0-16.0) g/dl Hct 34.0 L (37.0-47.0) % Plt Count 192 (130-400) K/uL BMP 07/24/24 07/25/24 18:39 08:00 Sodium 143 Potassium 4.1 D 3.2 L D Chloride 99 Carbon Dioxide 40 H BUN 18 Creatinine 0.95 Glucose 106 H Calcium 8.4 L (2) Dysphagia Dysphagia type: unspecified Qualified Code(s): R13.10 - Dysphagia, unspecified (8) RSV (respiratory syncytial virus infection) RSV infection type: unspecified Qualified Code(s): B33.8 - Other specified viral diseases
[2024-07-25] MEDS: APIXABAN 2.5 MG TAB PO SCH (20:23)
[2024-07-26 08:04] LABS: Hematocrit (blood only) 32.8 % (37.0-47.0); Hemoglobin 10.7 g/dl (12.0-16.0); Mean Corpuscular Hemoglobin 28.2 pg (25.0-34.0); Mean Corpuscular Hgb Conc 32.6 g/dL (32.0-36.0); Mean Corpuscular Volume 86.3 fL (80.0-100.0); Mean Platelet Volume 10.4 fL (9.4-12.4); Platelet Count 162 K/uL (130-400); RDW Coefficient of Variation 14.6 % (11.5-14.5); RDW Standard Deviation 45.6 fL (36.4-46.3); White Blood Count 6.71 K/ul (4.8-10.8)
[2024-07-26 08:17] LABS: BUN Creatinine Ratio 21.3 (10-20); Calcium 8.2 mg/dl (8.6-10.3); Creatinine Clr Calc Pharmacy 35.6 ml/min; Magnesium 1.8 mg/dl (1.7-2.4); Potassium 3.1 mmol/L (3.5-5.1)
[2024-07-26] MEDS: FUROSEMIDE 40 MG TAB PO SCH (08:34)
--- NOTE | 2024-07-26 09:20 | XRay Report ---
XR chest 1V portable CLINICAL HISTORY: hypoxia COMPARISON STUDY: 07/22/2024 FINDINGS: Stable mild cardiomegaly without pulmonary vascular congestion. There is interval mild blun ting of the right costophrenic angle. Otherwise stable stranding opacity in the lung bases with parti al obscuration of the diaphragm. No pneumothorax. IMPRESSION: Bilateral lung base consolidation with possible small pleural effusions, stable on the l eft and mildly increased on the right. ACT 112: Negative or not required by law. Electronically signed by: Nestor Cordova M.D. 07/26/2024 9:19 AM
[2024-07-26] MEDS: POTASSIUM CHLORIDE CRTAB 20 MEQ TABCR PO SCH (09:37)
[2024-07-26] MEDS: ALBUT/IPRATROP 3MG/0.5MG NEB 3 ML VIAL NEB SCH (10:41)
[2024-07-26] MEDS: AMPICILLIN/SULBACTAM SOD 1,500 MG/100 ML BAG IV STA (10:54)
--- NOTE | 2024-07-26 15:43 | Hospitalist Progress Note ---
Date of Service July 26, 2024 Assessment & Plan (1) Early satiety: (2) Dysphagia: (3) Severe malnutrition: (4) Unintentional weight loss: (5) Adult failure to thrive: (6) Esophageal dysmotility: (7) Ulcerative esophagitis: (8) RSV (respiratory syncytial virus infection): (9) Chronic respiratory failure with hypoxia and hypercapnia: (10) Pressure ulcer of right buttock, stage 3: Plan Leela Villanueva is an 83y/o F with PMHx significant for chronic respiratory failure with hypoxia on 2L NC, COPD, ILD, PAF anticoagulated on Eliquis, chronic HFpEF [EF = 60-64%; 05/2024], HLD, hypothyroidism, GERD, migraines, benign paroxysmal vertigo, CIELO and depression who presented to the ED on 07/19/24 with complaints of early satiety, unintentional weight loss and failure to thrive ISO dysphagia. Recent hospitalization at [facility] in May 2024 2/2 atrial fibrillation/flutter in which she underwent cardioversion and has since remained in sinus rhythm. During that time, there was also noted to be some issues with swallowing. Had video swallow was done which did not show any significant aspiration and speech recommended an easy to chew diet. From there, patient was discharged to [facility] (SNF). Patient had to be readmitted to a [facility] facility while at rehab 2/2 pneumonia. Again had complaints of difficulty swallowing/early satiety during that hospitalization. It was recommended she see a GI provider as an outpatient. She ended up being discharged home from that hospitalization. She was recently seen in the outpatient GI setting at [facility] on 07/16/24 and had scheduled an outpatient EGD for 08/01/24. Family was concerned that the patient would not make it to that outpatient EGD due to persistent poor intake and therefore was brought to [facility] again for further evaluation regarding her early satiety/dysphagia. Patient has lost ~30lbs since May 2024 per family. Early Satiety & Dysphagia Ulcerative Esophagitis, Severe Malnutrition + Failure to Thrive ISO Severe Esophageal Dysmotility Underwent EGD with GI on 07/22. EGD revealed slight corkscrew appearance of esophagus however it was not dilated. There was no retained food in the esophagus itself. EGD did however note mucosal breaks above the GE junction c onsistent with superficial ulcerations - atypical for reflux. Biopsies performed which came back + for ulcerative esophagitis. Carafate QID added on. Barium swallow study on 07/23 with severe esophageal dysmotility. Suspect pill- induced esophagitis likely 2/2 po iron supplements ISO severe dysmotility. Holding iron supplementation for now. Remeron added on to increase appetite stimulation - may benefit from increase in dose to 45mg for stronger effectiveness. She is tolerating a pured diet. Aspiration precautions. Dietitian evaluated on 07/20 - Boost supplementation TID added on. Daily weights ordered. Per previous provider: Spoke with some of the patient's family later this afternoon at bedside. This included the patient's (Carson), [id number] (Beatriz Lazcano) and 2 sons - including Morris who was on speaker phone and with whom I've been in daily contact with. Discussed GOC moving forward. Carson would like for her to be transitioned back home following a short-term SNF placement however Morris raises strong concern regarding her going home vs staying in a long-term care facility since his father and brother (whom she lives with) would not be physically able to care for her well 2/2 their own physical limitations. Will plan for palliative care consult to further discuss GOC. Family is all agreeable with quality of live > quantity however cannot agree on the best course for placement. Reached out to Izabella King DNP via TT to make her aware of the consult. She is planning on see her tomorrow. Palliative met with family today, see note for full details. Code status changed to DNR. Plan for no further escalation of care and DC to [place] for SNF trial and moved to long-term care/ comfort. Aspiration pneumonia Patient noted to have increased O2 requirement + wheezing and coarse breath sounds CXR-Bilateral lung base consolidation with possible small pleural effusions Patient is at high risk for aspiration given severe esophageal dysmotility Will start IV Unasyn, scheduled nebs Acute RSV Infection - Noted on 07/22/24 Chronic Hypoxic Respiratory Failure ISO COPD and ILD on 2L NC & Chronic Hypercarbia Noted moist cough on exam on 07/22. Rhonchi heard in bilateral lung bases as well. recently developed URI symptoms and was in to see her over the weekend. Respiratory BioFire panel ordered and came back positive for RSV on 2/3. CXR on 07/22 revealed subsegmental atelectasis in the lung bases but no evidence of consolidation. Anemia Hgb 11.2 on admission -> 9.2 on 07/21 --> 10.2 -> 11.2 -> 10.7 today. Hgb was 12 back in May 2024 on discharge. Iron panel reviewed. Ferritin 502.6 likely 2/2 malnutrition, iron 37. Holding iron supplement as per above. No s/sx of bleeding. Suspect mostly 2/2 nutritional status given weight loss. No indication for transfusion at this time. TSH WNL this admission. No active bleeding on EGD. PAF Rhythm controlled on sotalol Eliquis held due to EGD - no active bleeding noted, hgb stable. Eliquis resumed on 07/25 however at reduced dose 2.5mg BID due to age > 80 and weight < 60kg Chronic HFpEF CXR on 07/22 w/o evidence of vascular congestion Resting echo from 05/2024 reviewed --> EF = 60-64%, increased concentric LV wall thickness, normal LV wall motion, grade I DD, mildly enlarged LA, mild MR and mild TR Lasix initially held due to concerns of dehydration, has increased BL LE edema on exam today, resumed Lasix at reduced dose 40 mg daily ([employer] dose 40mg BID) on 07/25 Small bilateral pleural effusions noted on CXR today, consider IV Lasix if respiratory status not improving Pressure Ulcer of R Buttock, Stage III WOCN consulted. R lower medial buttock pressure ulcer with 26-50% slough. Q2H repositioning, routine dressings per WOCN. Hypothyroidism TSH WNL, continue levothyroxine GERD Transitioned po PPI to IV PPI 2/2 ulcerations on EGD HLD Continue statin. DVT Prophylaxis On Eliquis PCP: Umair Gillis DO Disposition: Palliative met with family today, see note for full details. Code status changed to DNR. Plan for no further escalation of care and DC to [place] for SNF trial and moved to long-term care/ comfort. I spent a total of 35 minutes coordinating, documenting, and providing care for this patient excluding time spent in the performance of separately billed services. This included personally reviewing all current laboratories and imaging studies, medication reconciliation, outpatient chart review, and discussion with specialists. Admission and Anticipated Discharge Date Admission Date: July 19, 2024 Supervising Physician Co-Signing Physician Notes I have seen and discussed the case with the collaborating advanced practitioner. I agree with the above PN. I have reviewed and confirmed the patients medical history, the findings on physical examination, and the patients diagnosis and treatment plan with Lalo MONTOYA and agree with the information documented. In short, Ms. Villanueva is an 84 yo admitted for dysphagia and found to have ulcerative esophagitis. Started on PPI BID, famotidine, Carafate Palliative consulted: dispo with SNF trial, DNR Signs of aspiration today, on unasyn; wean o2 as able I spent a total of 15 minutes coordinating, documenting, and providing care for this patient excluding time spent in the performance of separately billed services. All of the aforementioned completed outside of collaborating with the assigned advanced practitioner for a full treatment plan. I have reviewed the advanced practitioner's documentation, and I agree with, and take responsibility for the plan of care Subjective Follow-up for severe esophageal dysmotility. Patient seen and examined. Notified by nursing this a.m. of increased O2 requirement, wheezing, coughing, coarse breath sounds. Patient eating breakfast at the time of my exam. Denies shortness of breath. Physical Exam Constitutional: no acute distress Chronically ill-appearing Respiratory: normal respiratory effort; no respiratory distress Auscultation: + rhonchi ( scattered bilaterally) and + wheezes ( faint, expiratory, bilaterally) Cardiovascular: Rate/Rhythm: regular rate and regular rhythm Vessels: normal peripheral pulses Extremities: + edema ( +1-2 edema BLE) Skin: no rashes, warm and dry Neurologic: no focal motor deficits Psychiatric: A+Ox3, euthymic affect Results & Data Results & Data Vital Signs (Past 12 Hours) Vital Signs Temp Pulse Resp BP Pulse Ox O2 Del Method O2 Flow Rate 07/26/24 10:43 81 24 93 Nasal Cannula 3 07/26/24 07:48 93 Nasal Cannula 4 07/26/24 07:35 Nasal Cannula 2 07/26/24 07:13 36.6 C 81 16 146/84 H 96 Nasal Cannula 6 07/26/24 07:06 80 18 93 Nasal Cannula 2 Laboratory Results Short CBC 07/26/24 Range/Units 07:37 WBC 6.71 (4.8-10.8) K/ul Hgb 10.7 L (12.0-16.0) g/dl Hct 32.8 L (37.0-47.0) % Plt Count 162 (130-400) K/uL BMP 07/26/24 07:37 Sodium 143 Potassium 3.1 L Chloride 97 L Carbon Dioxide 40 H BUN 19 Creatinine 0.89 Glucose 81 Calcium 8.2 L (2) Dysphagia Dysphagia type: unspecified Qualified Code(s): R13.10 - Dysphagia, unspecified (8) RSV (respiratory syncytial virus infection) RSV infection type: unspecified Qualified Code(s): B33.8 - Other specified viral diseases
--- NOTE | 2024-07-26 17:40 | Palliative Care Progress Note ---
Date of Service July 26, 2024 Assessment & Plan (1) Cachexia: (2) Weakness generalized: (3) Palliative care by specialist: (4) Advanced care planning/counseling discussion: Plan: A 75min face to face ACP meeting was held at the bedside with pt, her , her 4 sons, 2 daughters in law, 1 son in law and 1 granddaughter who is an RN at [facility]. We discussed the clinical events to date and her wishes expressed yesterday We discussed her preferences for being home and the logistical issues of care needs and safety/risk of falls We spoke about options for care and code status wishes. She reaffirmed no code, family in agreement and POLST completed. SNF rehab trial and transition to LTC/comfort with hospice as goal discussed. Home hospice d/w pt and family: she will not have adequate caregiver support to be home We agreed on SNF for rehab, no escalation, no labs, no return to [facility], no aggressive care or interventions, focus is QOL. Family will discuss if they might be able to bring pt home with hospice if she declines to where care is mostly in bed and we reviewed her sr. social media & mobile manager at SNF can help coordinate this but i advised them they need to decide as a family who and how they will be home to provide care and agree ahead of time to a schedule of caregivers. Plan As above POLST completed - original to Morris/son, copy to paper chart and HIM for scanning Thank you for allowing us to participate in the ongoing care of this patient. Please page with any additional concerns. 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 but now new complaints Son/POA Morris states she has a new PNA She denies chest pain, sl cough, no abd pain denies hunger and thirst has not been eating much at all, refused lunch tray again today Review of Systems Review of Systems: All systems reviewed & are unremarkable except as noted in Subjective Physical Exam Constitutional: + ill appearing, + cachectic, + physical limitations and + frail appearing Eyes: PERRL, conjunctivae normal, anicteric sclerae ENMT: dentition fair, MM sl dry Neck: normal visual inspection and trachea midline Respiratory: + cough, able to speak in complete sente nces, + prolonged expiratory phase and symmetric chest movement Cardiovascular: Rate/Rhythm: + irregularly irregular Gastrointestinal (Abdomen): Inspection/Auscultation: + scaphoid Percussion/Palpation: abdomen soft Musculoskeletal: gen weakness Skin: + turgor decreased, + skin atrophy, + dr y skin and + brittle hair Neurologic: gen weakness Psychiatric: Orientation: alert and oriented x 3 Apperance: appropriately dressed and appeared stated age Eye Contact: + fair eye contact Speech: normal rate/rhythm/volume of speech Cognition: recent memory grossly intact, remote memory grossly intact, attention grossly intact and language grossly intact Estimated Intelligence: consistent with education level Insight: excellent insight Judgment: excellent judgement Results & Data Vital Signs (Past 12 Hours) Vital Signs Temp Pulse Resp BP Pulse Ox O2 Del Method O2 Flow Rate 07/26/24 16:33 36.4 C L 80 16 123/82 93 Nasal Cannula 3 07/26/24 10:43 81 24 93 Nasal Cannula 3 07/26/24 07:48 93 Nasal Cannula 4 07/26/24 07:35 Nasal Cannula 2 07/26/24 07:13 36.6 C 81 16 146/84 H 96 Nasal Cannula 6 07/26/24 07:06 80 18 93 Nasal Cannula 2 Laboratory Results 07/26/24 07/25/24 07/24/24 Range/Units 07:37 08:00 18:39 WBC 6.71 7.70 (4.8-10.8) K/ul RBC 3.80 L 3.92 L (4.20-5.40) M/uL Hgb 10.7 L 11.2 L (12.0-16.0) g/dl Hct 32.8 L 34.0 L (37.0-47.0) % MCV 86.3 86.7 (80.0-100.0) fL MCH 28.2 28.6 (25.0-34.0) pg MCHC 32.6 32.9 (32.0-36.0) g/dL RDW Std Deviation 45.6 46.4 H (36.4-46.3) fL RDW Coeff of Neena 14.6 H 14.6 H (11.5-14.5) % Plt Count 162 192 (130-400) K/uL MPV 10.4 10.4 (9.4-12.4) fL Sodium 143 143 (136-145) mmol/L Potassium 3.1 L 3.2 L D 4.1 D (3.5-5.1) mmol/L Chloride 97 L 99 (98-107) mmol/L Carbon Dioxide 40 H 40 H (21-32) mmol/L Anion Gap 6 4 (3-11) BUN 19 18 (6-23) mg/dl Creatinine 0.89 0.95 (0.6-1.2) mg/dl Est Cr Clr Drug Dosing 35.6 33.4 ml/min eGFR 64.69 59.82 BUN/Creatinine Ratio 21.3 H 18.9 (10-20) Glucose 81 106 H (70-99(Fasting)) mg/dl Calcium 8.2 L 8.4 L (8.6-10.3) mg/dl Phosphorus (2.5-4.9) mg/dl Magnesium 1.8 2.0 (1.7-2.4) mg/dl Iron (35-150) mcg/dl TIBC (250-450) mcg/dl Transferrin (200-360) mg/dl Transferrin % Sat (15-50) % Ferritin (8-388) ng/ml C-Reactive Protein (0-0.5) mg/dl Vitamin B12 (180-914) pg/ml Folate (>5.38) ng/ml TSH (0.300-4.500) uIu/ml Urine Color Urine Appearance (Clear) Urine pH (4.5-7.5) Ur Specific [place] (1.000-1.030) Urine Protein (Negative) Urine Glucose (UA) (Negative) Urine Ketones (Negative) Urine Blood (Negative) Urine Nitrite (Negative) Urine Bilirubin (Negative) Urine Urobilinogen (Negative) Ur Leukocyte Esterase (Negative) Urine WBC (Auto) (0-5) /hpf Urine RBC (Auto) (0-2) /hpf U Hyaline Cast (Auto) (0-2) /lpf U Epithel Cells (Auto) (0-2) /hpf Urine Bacteria (Auto) (None Seen) Adenovirus (PCR) (NotDetected) B. pertussis DNA (PCR) (NotDetected) B.parapertussis DNA PCR (NotDetected) C. pneumoniae DNA (PCR) (NotDetected) Coronavirus OC43 (PCR) (NotDetected) Coronavirus HKU1 (PCR) (NotDetected) Coronavirus 229E (PCR) (NotDetected) SARS-CoV-2 (PCR) (NotDetected) Coronavirus NL63 (PCR) (NotDetected) Human Metapneumovir PCR (NotDetected) Influenza Type A (PCR) (NotDetected) Influenza Type B (PCR) (NotDetected) M. pneumoniae (PCR) (NotDetected) Parainfluenza 1 (PCR) (NotDetected) Parainfluenza 2 (PCR) (NotDetected) Parainfluenza 3 (PCR) (NotDetected) Parainfluenza 4 (PCR) (NotDetected) RSV (PCR) (NotDetected) Entero/Rhino (PCR) (NotDetected) 07/24/24 07/23/24 07/22/24 Range/Units 08:43 07:20 Unknown WBC 8.49 7.04 (4.8-10.8) K/ul RBC 3.59 L 3.69 L (4.20-5.40) M/uL Hgb 10.2 L 10.4 L (12.0-16.0) g/dl Hct 31.4 L 32.2 L (37.0-47.0) % MCV 87.5 87.3 (80.0-100.0) fL MCH 28.4 28.2 (25.0-34.0) pg MCHC 32.5 32.3 (32.0-36.0) g/dL RDW Std Deviation 46.9 H 46.2 (36.4-46.3) fL RDW Coeff of Neena 14.6 H 14.6 H (11.5-14.5) % Plt Count 178 160 (130-400) K/uL MPV 10.5 10.8 (9.4-12.4) fL Sodium 144 145 (136-145) mmol/L Potassium 3.0 L D 3.8 (3.5-5.1) mmol/L Chloride 101 102 (98-107) mmol/L Carbon Dioxide 39 H 35 H (21-32) mmol/L Anion Gap 4 8 (3-11) BUN 24 H 20 (6-23) mg/dl Creatinine 1.12 1.18 (0.6-1.2) mg/dl Est Cr Clr Drug Dosing 29.5 28.0 ml/min eGFR 49.40 46.40 BUN/Creatinine Ratio 21.4 H 16.9 (10-20) Glucose 97 82 (70-99(Fasting)) mg/dl Calcium 8.3 L 8.3 L (8.6-10.3) mg/dl Phosphorus (2.5-4.9) mg/dl Magnesium 1.6 L 1.8 (1.7-2.4) mg/dl Iron (35-150) mcg/dl TIBC (250-450) mcg/dl Transferrin (200-360) mg/dl Transferrin % Sat (15-50) % Ferritin (8-388) ng/ml C-Reactive Protein (0-0.5) mg/dl Vitamin B12 (180-914) pg/ml Folate (>5.38) ng/ml TSH (0.300-4.500) uIu/ml Urine Color Urine Appearance (Clear) Urine pH (4.5-7.5) Ur Specific [place] (1.000-1.030) Urine Protein (Negative) Urine Glucose (UA) (Negative) Urine Ketones (Negative) Urine Blood (Negative) Urine Nitrite (Negative) Urine Bilirubin (Negative) Urine Urobilinogen (Negative) Ur Leukocyte Esterase (Negative) Urine WBC (Auto) (0-5) /hpf Urine RBC (Auto) (0-2) /hpf U Hyaline Cast (Auto) (0-2) /lpf U Epithel Cells (Auto) (0-2) /hpf Urine Bacteria (Auto) (None Seen) Adenovirus (PCR) Not Detected (NotDetected) B. pertussis DNA (PCR) Not Detected (NotDetected) B.parapertussis DNA PCR Not Detected (NotDetected) C. pneumoniae DNA (PCR) Not Detected (NotDetected) Coronavirus OC43 (PCR) Not Detected (NotDetected) Coronavirus HKU1 (PCR) Not Detected (NotDetected) Coronavirus 229E (PCR) Not Detected (NotDetected) SARS-CoV-2 (PCR) Not Detected (NotDetected) Coronavirus NL63 (PCR) Not Detected (NotDetected) Human Metapneumovir PCR Not Detected (NotDetected) Influenza Type A (PCR) Not Detected (NotDetected) Influenza Type B (PCR) Not Detected (NotDetected) M. pneumoniae (PCR) Not Detected (NotDetected) Parainfluenza 1 (PCR) Not Detected (NotDetected) Parainfluenza 2 (PCR) Not Detected (NotDetected) Parainfluenza 3 (PCR) Not Detected (NotDetected) Parainfluenza 4 (PCR) Not Detected (NotDetected) RSV (PCR) DETECTED A (NotDetected) Entero/Rhino (PCR) Not Detected (NotDetected) 07/22/24 07/21/24 07/20/24 Range/Units 05:57 06:22 07:21 WBC 5.44 5.92 (4.8-10.8) K/ul RBC 3.34 L 3.23 L (4.20-5.40) M/uL Hgb 9.4 L 9.2 L (12.0-16.0) g/dl Hct 29.3 L 28.2 L (37.0-47.0) % MCV 87.7 87.3 (80.0-100.0) fL MCH 28.1 28.5 (25.0-34.0) pg MCHC 32.1 32.6 (32.0-36.0) g/dL RDW Std Deviation 44.4 45.3 (36.4-46.3) fL RDW Coeff of Neena 14.0 14.4 (11.5-14.5) % Plt Count 152 140 (130-400) K/uL MPV 10.6 11.3 (9.4-12.4) fL Sodium 144 144 (136-145) mmol/L Potassium 4.0 3.7 (3.5-5.1) mmol/L Chloride 103 102 (98-107) mmol/L Carbon Dioxide 41 H* 39 H (21-32) mmol/L Anion Gap 0 L 3 (3-11) BUN 11 12 (6-23) mg/dl Creatinine 1.18 1.18 (0.6-1.2) mg/dl Est Cr Clr Drug Dosing 28.0 28.0 ml/min eGFR 46.40 46.40 BUN/Creatinine Ratio 9.3 L 10.2 (10-20) Glucose 84 75 (70-99(Fasting)) mg/dl Calcium 8.1 L 8.2 L (8.6-10.3) mg/dl Phosphorus 2.9 (2.5-4.9) mg/dl Magnesium 2.2 1.6 L (1.7-2.4) mg/dl Iron 37 (35-150) mcg/dl TIBC 179 L (250-450) mcg/dl Transferrin 128 L (200-360) mg/dl Transferrin % Sat 21 (15-50) % Ferritin 502.6 H (8-388) ng/ml C-Reactive Protein 2.03 H (0-0.5) mg/dl Vitamin B12 881 (180-914) pg/ml Folate 9.15 (>5.38) ng/ml TSH 3.367 (0.300-4.500) uIu/ml Urine Color Urine Appearance (Clear) Urine pH (4.5-7.5) Ur Specific [place] (1.000-1.030) Urine Protein (Negative) Urine Glucose (UA) (Negative) Urine Ketones (Negative) Urine Blood (Negative) Urine Nitrite (Negative) Urine Bilirubin (Negative) Urine Urobilinogen (Negative) Ur Leukocyte Esterase (Negative) Urine WBC (Auto) (0-5) /hpf Urine RBC (Auto) (0-2) /hpf U Hyaline Cast (Auto) (0-2) /lpf U Epithel Cells (Auto) (0-2) /hpf Urine Bacteria (Auto) (None Seen) Adenovirus (PCR) (NotDetected) B. pertussis DNA (PCR) (NotDetected) B.parapertussis DNA PCR (NotDetected) C. pneumoniae DNA (PCR) (NotDetected) Coronavirus OC43 (PCR) (NotDetected) Coronavirus HKU1 (PCR) (NotDetected) Coronavirus 229E (PCR) (NotDetected) SARS-CoV-2 (PCR) (NotDetected) Coronavirus NL63 (PCR) (NotDetected) Human Metapneumovir PCR (NotDetected) Influenza Type A (PCR) (NotDetected) Influenza Type B (PCR) (NotDetected) M. pneumoniae (PCR) (NotDetected) Parainfluenza 1 (PCR) (NotDetected) Parainfluenza 2 (PCR) (NotDetected) Parainfluenza 3 (PCR) (NotDetected) Parainfluenza 4 (PCR) (NotDetected) RSV (PCR) (NotDetected) Entero/Rhino (PCR) (NotDetected) 07/19/24 Range/Units 20:15 WBC (4.8-10.8) K/ul RBC (4.20-5.40) M/uL Hgb (12.0-16.0) g/dl Hct (37.0-47.0) % MCV (80.0-100.0) fL MCH (25.0-34.0) pg MCHC (32.0-36.0) g/dL RDW Std Deviation (36.4-46.3) fL RDW Coeff of Neena (11.5-14.5) % Plt Count (130-400) K/uL MPV (9.4-12.4) fL Sodium (136-145) mmol/L Potassium (3.5-5.1) mmol/L Chloride (98-107) mmol/L Carbon Dioxide (21-32) mmol/L Anion Gap (3-11) BUN (6-23) mg/dl Creatinine (0.6-1.2) mg/dl Est Cr Clr Drug Dosing ml/min eGFR BUN/Creatinine Ratio (10-20) Glucose (70-99(Fasting)) mg/dl Calcium (8.6-10.3) mg/dl Phosphorus (2.5-4.9) mg/dl Magnesium (1.7-2.4) mg/dl Iron (35-150) mcg/dl TIBC (250-450) mcg/dl Transferrin (200-360) mg/dl Transferrin % Sat (15-50) % Ferritin (8-388) ng/ml C-Reactive Protein (0-0.5) mg/dl Vitamin B12 (180-914) pg/ml Folate (>5.38) ng/ml TSH (0.300-4.500) uIu/ml Urine Color Yellow Urine Appearance Clear (Clear) Urine pH 5.5 (4.5-7.5) Ur Specific [place] 1.006 (1.000-1.030) Urine Protein Trace H (Negative) Urine Glucose (UA) Negative (Negative) Urine Ketones Negative (Negative) Urine Blood 1+ H (Negative) Urine Nitrite Negative (Negative) Urine Bilirubin Negative (Negative) Urine Urobilinogen Negative (Negative) Ur Leukocyte Esterase 1+ H (Negative) Urine WBC (Auto) 6-10 H (0-5) /hpf Urine RBC (Auto) 0-2 (0-2) /hpf U Hyaline Cast (Auto) 3-5 H (0-2) /lpf U Epithel Cells (Auto) 3-5 H (0-2) /hpf Urine Bacteria (Auto) None Seen (None Seen) Adenovirus (PCR) (NotDetected) B. pertussis DNA (PCR) (NotDetected) B.parapertussis DNA PCR (NotDetected) C. pneumoniae DNA (PCR) (NotDetected) Coronavirus OC43 (PCR) (NotDetected) Coronavirus HKU1 (PCR) (NotDetected) Coronavirus 229E (PCR) (NotDetected) SARS-CoV-2 (PCR) (NotDetected) Coronavirus NL63 (PCR) (NotDetected) Human Metapneumovir PCR (NotDetected) Influenza Type A (PCR) (NotDetected) Influenza Type B (PCR) (NotDetected) M. pneumoniae (PCR) (NotDetected) Parainfluenza 1 (PCR) (NotDetected) Parainfluenza 2 (PCR) (NotDetected) Parainfluenza 3 (PCR) (NotDetected) Parainfluenza 4 (PCR) (NotDetected) RSV (PCR) (NotDetected) Entero/Rhino (PCR) (NotDetected) Diagnostic Findings Chest X-Ray 07/19/24 13:32 XR chest 1V not portable CLINICAL HISTORY: pneumonia COMPARISON STUDY: 06/19/2024 FINDINGS: Stable mild cardiomegaly without pulmonary vascular congestion. There is mild stranding [place] in the lung bases, improved. No other consolidation or pleural effusion. No pneumothorax. IMPRESSION: Atelectasis or mild persistent pneumonia in the lung bases, improved. ACT 112: Negative or not required by law. Electronically signed by: Nestor Cordova M.D. 07/19/2024 3:04 PM Chest X-Ray 07/22/24 18:10 INDICATION: Cough. TECHNIQUE: Frontal radiograph of the chest. COMPARISON: Radiograph from 07/19/2024. FINDINGS: Mild cardiomegaly. Pulmonary vasculature appear within normal limits. Chronic appearing interstitial lung markings. Subsegmental atelectasis in the lung bases. No infiltrate, pleural effusion or pneumothorax. No acute osseous abnormality evident. IMPRESSION: No acute cardiopulmonary process. Electronically signed by Sedrick Chaudhari 07-22-2024 6:56 PM Barium Swallow X-Ray 07/23/24 13:00 SINGLE CONTRAST BARIUM SWALLOW CLINICAL HISTORY: abnormal appearance of the esophagus COMPARISON STUDY: Modified barium swallow June 17, 2024. FLUOROSCOPY TIME: 1.01 minutes FLUOROSCOPY IMAGES: 9 Ka,r: 7.85 mGy FINDINGS: Single contrast barium swallow was performed. No esophageal mass or stricture was identified although mucosal detail was diminished given single contrast technique. This exam was technically difficult given difficulty positioning. Severe esophageal dysmotility was noted. Therefore, gastroesophageal reflux was difficult to assess for. No hiatal hernia was identified. IMPRESSION: 1. Severe esophageal dysmotility. 2. No esophageal mass or stricture identified although mucosal detail diminished given single contrast technique. ACT 112: Negative or not required by law. Electronically signed by: Johnnie Hdz M.D. 07/23/2024 1:48 PM Chest X-Ray 07/26/24 08:51 XR chest 1V portable CLINICAL HISTORY: hypoxia COMPARISON STUDY: 07/22/2024 FINDINGS: Stable mild cardiomegaly without pulmonary vascular congestion. There is interval mild blunting of the right costophrenic angle. Otherwise stable stranding opacity in the lung bases with partial obscuration of the diaphragm. No pneumothorax. IMPRESSION: Bilateral lung base consolidation with possible small pleural effusions, stable on the left and mildly increased on the right. ACT 112: Negative or not required by law. Electronically signed by: Nestor Cordova M.D. 07/26/2024 9:19 AM PG Care Time/CCT Total # of Minutes Spent Total Time Spent with Patient: Total time spent is greater than 50% in coordination of care (as documented) at patient's floor/unit and/or counseling patient: I spent 140 minutes overall addressing this case: 15 min in medical data review/discussion with referring provider(s) and/or preparation for the visit 20 min in direct interaction with the patient/exam 75 min in Advance Care Planning/Goals of Care discussions as detailed above in note (must be >16min) 15 min in subsequent review and synthesis of assessment and plan 15 min communicating with other providers regarding the patient's case: Advanced Care Planning 75878 Advanced Care Planning 30 Min 65172 Advanced Care Planning Additional 30 Min [place] [address] SUB INP/OBS CARE 3/50MIN (25 - SIGNIFICANT, SEPARATELY IDENTIFIABLE ) Patient Type Established Medical Decision Making High Complexity Diagnoses Cachexia R64 Weakness generalized R53.1 Palliative care by specialist Z51.5 Advanced care planning/counseling discussion Z71.89 Additional Codes Advanced Care Planning - 17268 Advanced Care Planning 30 Min: 61239 Advanced Care Planning 30 Min ([id number]) Advanced Care Planning - 14741 Advanced Care Planning Additional 30 Min: 70191 Advanced Care Planning Additional 30 Min ([id number])
[2024-07-27 06:51] LABS: BUN Creatinine Ratio 18.8 (10-20); Calcium 8.1 mg/dl (8.6-10.3); Creatinine Clr Calc Pharmacy 26.6 ml/min; Potassium 3.2 mmol/L (3.5-5.1)
[2024-07-27] MEDS: POTASSIUM CHLORIDE CRTAB 20 MEQ TABCR PO STA (08:16)
[2024-07-27] MEDS: POLYETHYLENE (MIRALAX) 17 GM PACK PO PRN (08:23)
[2024-07-27] MEDS: DEXTROSE 5% 1,000 ML IV SCH (08:27)
--- NOTE | 2024-07-27 11:36 | Hospitalist Progress Note ---
Date of Service July 27, 2024 Assessment & Plan (1) Early satiety: (2) Dysphagia: (3) Severe malnutrition: (4) Unintentional weight loss: (5) Adult failure to thrive: (6) Esophageal dysmotility: (7) Ulcerative esophagitis: (8) RSV (respiratory syncytial virus infection): (9) Chronic respiratory failure with hypoxia and hypercapnia: (10) Pressure ulcer of right buttock, stage 3: Plan Leela Villanueva is an 83y/o F with PMHx significant for chronic respiratory failure with hypoxia on 2L NC, COPD, ILD, PAF anticoagulated on Eliquis, chronic HFpEF [EF = 60-64%; 05/2024], HLD, hypothyroidism, GERD, migraines, benign paroxysmal vertigo, CIELO and depression who presented to the ED on 07/19/24 with complaints of early satiety, unintentional weight loss and failure to thrive ISO dysphagia. Recent hospitalization at [facility] in May 2024 2/2 atrial fibrillation/flutter in which she underwent cardioversion and has since remained in sinus rhythm. During that time, there was also noted to be some issues with swallowing. Had video swallow was done which did not show any significant aspiration and speech recommended an easy to chew diet. From there, patient was discharged to [facility] (SNF). Patient had to be readmitted to a [facility] facility while at rehab 2/2 pneumonia. Again had complaints of difficulty swallowing/early satiety during that hospitalization. It was recommended she see a GI provider as an outpatient. She ended up being discharged home from that hospitalization. She was recently seen in the outpatient GI setting at [place] on 07/16/24 and had scheduled an outpatient EGD for 08/01/24. Family was concerned that the patient would not make it to that outpatient EGD due to persistent poor intake and therefore was brought to [facility] again for further evaluation regarding her early satiety/dysphagia. Patient has lost ~30lbs since May 2024 per family. Early Satiety & Dysphagia Ulcerative Esophagitis, Severe Malnutrition + Failure to Thrive ISO Severe Esophageal Dysmotility Underwent EGD with GI on 07/22. EGD revealed slight corkscrew appearance of esophagus however it was not dilated. There was no retained food in the esophagus itself. EGD did however note mucosal breaks above the GE junction c onsistent with superficial ulcerations - atypical for reflux. Biopsies performed which came back + for ulcerative esophagitis. Carafate QID added on. Barium swallow study on 07/23 with severe esophageal dysmotility. Suspect pill- induced esophagitis likely 2/2 po iron supplements ISO severe dysmotility. Holding iron supplementation for now. Remeron added on to increase appetite stimulation - may benefit from increase in dose to 45mg for stronger effectiveness. She is tolerating a pured diet. Aspiration precautions. Dietitian evaluated on 07/20 - Boost supplementation TID added on. Daily weights ordered. Aspiration pneumonia Patient noted to have increased O2 requirement + wheezing and coarse breath sounds CXR-Bilateral lung base consolidation with possible small pleural effusions Patient is at high risk for aspiration given severe esophageal dysmotility Continue IV Unasyn, scheduled nebs Hypernatremia: Noted on 07/27/2024, likely secondary to decreased oral intake/dehydration- start D5 and monitor daily CMP Acute RSV Infection - Noted on 07/22/24 Chronic Hypoxic Respiratory Failure ISO COPD and ILD on 2L NC & Chronic Hy percarbia Noted moist cough on exam on 07/22. Rhonchi heard in bilateral lung bases as well. recently developed URI symptoms and was in to see her over the weekend. Respiratory Bio[employer] panel ordered and came back positive for RSV on 07/22. CXR on 07/22 revealed subsegmental atelectasis in the lung bases but no evidence of consolidation. Anemia Hgb 11.2 on admission -> 9.2 on 07/21 --> 10.2 -> 11.2 -> 10.7 today. Hgb was 12 back in May 2024 on discharge. Iron panel reviewed. Ferritin 502.6 likely 2/2 malnutrition, iron 37. Holding iron supplement as per above. No s/sx of bleeding. Suspect mostly 2/2 nutritional status given weight loss. No indication for transfusion at this time. TSH WNL this admission. No active bleeding on EGD. PAF Rhythm controlled on sotalol Initially Eliquis held due to EGD - no active bleeding noted, hgb stable. Eliquis resumed on 07/25 however at reduced dose 2.5mg BID due to age > 80 and we ight < 60kg Chronic HFpEF CXR on 07/22 w/o evidence of vascular congestion Resting echo from 05/2024 reviewed --> EF = 60-64%, increased concentric LV wall thickness, normal LV wall motion, grade I DD, mildly enlarged LA, mild MR and mild TR Lasix initially held due to concerns of dehydration, has increased BL LE edema on exam today, resumed Lasix at reduced dose 40 mg daily (COMMUNITY ADVOCATE dose 40mg BID) on 2/6 Small bilateral pleural effusions noted on CXR today, consider IV Lasix if respiratory status not improving Pressure Ulcer of R Buttock, Stage III WOCN consulted. R lower medial buttock pressure ulcer with 26-50% slough. Q2H repositioning, routine dressings per WOCN. Hypothyroidism TSH WNL, continue levothyroxine GERD Transitioned po PPI to IV PPI 2/2 ulcerations on EGD HLD Continue statin. DVT Prophylaxis On Eliquis PCP: Umair Gillis, Disposition: Palliative met with family today, see note for full details. Code status changed to DNR. Plan for no further escalation of care and DC to [facility] for SNF trial and moved to long-term care/ comfort. I spent a total of 35 minutes coordinating, documenting, and providing care for this patient excluding time spent in the performance of separately billed services. This included personally reviewing all current laboratories and imaging studies, medication reconciliation, outpatient chart review, and discussion with specialists. Admission and Anticipated Discharge Date Admission Date: July 19, 2024 Supervising Physician Co-Signing Physician Notes I have seen and discussed the case with the collaborating advanced practitioner. I agree with the above PN. I have reviewed and confirmed the patients medical history, the findings on physical examination, and the patients diagnosis and treatment plan with Pema JIMENES and agree with the information documented. In short, Ms. Villanueva is an 84 yo admitted for dysphagia and found to have ulcerative esophagitis. Started on PPI BID, famotidine, Carafate Palliative consulted: dispo with SNF trial, DNR Signs of aspiration 07/26 on unasyn; wean o2 as able Hypernatremia iso free water loss and poor po overall, D5W started repeat BMP this afternoon, encourage PO intake Rest of plan as above I spent a total of 15 minutes coordinating, documenting, and providing care for this patient excluding time spent in the performance of separately billed services. All of the aforementioned completed outside of collaborating with the assigned advanced practitioner for a full treatment plan. I have reviewed the advanced practitioner's documentation, and I agree with, and take responsibility for the plan of care Subjective Patient seen and examined. No apparent distress. Confused and hard of hearing. Eating breakfast with no complaints. Denies any shortness of breath or chest pain. Appears oxygen needs are improving. Review of Systems Review of Systems: All systems reviewed & are unremarkable except as noted in HPI & below Physical Exam Constitutional: WD/WN, vitals as above + ill appearing Eyes: PERRL, conjunctivae normal, anicteric sclerae ENMT: external ear and nose normal, oropharynx normal Neck: trachea midline, no thyromegaly Respiratory: normal respiratory effort; no labored breathing Auscultation: + crackles and + rales Cardiovascular: RRR, no murmur, no edema Gastrointestinal (Abdomen): normal bowel sounds, soft, nontender, no hepatosplenomegaly Musculoskeletal: no cyanosis or clubbing, extremities motor strength 5/5 Skin: no rashes, warm and dry Neurologic: PERRL, EOMI, accommodation nl, no face palsy, no dysarthria Psychiatric: A+Ox3, euthymic affect Orientation: oriented to person Lymphatic: no cervical or axillary lymphadenopathy Results & Data Results & Data Vital Signs (Past 12 Hours) Vital Signs Temp Pulse Resp BP Pulse Ox O2 Del Method O2 Flow Rate 07/27/24 11:09 81 18 94 Nasal Cannula 2 07/27/24 08:00 Nasal Cannula 3 07/27/24 07:57 79 18 96 Nasal Cannula 3 07/27/24 07:28 36.6 C 71 18 123/78 96 Nasal Cannula 3 Diagnostic Findings Laboratory Results WBC 6.71 K/ul (4.8-10.8) 07/26/24 07:37 RBC 3.80 M/uL (4.20-5.40) L 07/26/24 07:37 Hgb 10.7 g/dl (12.0-16.0) L 07/26/24 07:37 Hct 32.8 % (37.0-47.0) L 07/26/24 07:37 MCV 86.3 fL (80.0-100.0) 07/26/24 07:37 MCH 28.2 pg (25.0-34.0) 07/26/24 07:37 MCHC 32.6 g/dL (32.0-36.0) 07/26/24 07:37 RDW Std Deviation 45.6 fL (36.4-46.3) 07/26/24 07:37 RDW Coeff of Neena 14.6 % (11.5-14.5) H 07/26/24 07:37 Plt Count 162 K/uL (130-400) 07/26/24 07:37 MPV 10.4 fL (9.4-12.4) 07/26/24 07:37 Immature Gran % (Auto) 0.2 % 07/19/24 14:18 Neut % (Auto) 74.2 % 07/19/24 14:18 Lymph % (Auto) 18.8 % 07/19/24 14:18 Dale % (Auto) 5.7 % 07/19/24 14:18 Eos % (Auto) 0.8 % 07/19/24 14:18 Baso % (Auto) 0.3 % 07/19/24 14:18 Neut # (Auto) 6.51 K/uL (1.40-6.50) H 07/19/24 14:18 Lymph # (Auto) 1.65 K/uL (1.20-3.40) 07/19/24 14:18 Dale # (Auto) 0.50 K/uL (0.11-0.59) 07/19/24 14:18 Eos # (Auto) 0.07 K/uL (0.00-0.50) 07/19/24 14:18 Baso # (Auto) 0.03 K/uL (0.00-0.20) 07/19/24 14:18 Immature Gran # (Auto) 0.02 K/uL (0.01-0.20) 07/19/24 14:18 Sodium 146 mmol/L (136-145) H 07/27/24 06:01 Potassium 3.2 mmol/L (3.5-5.1) L 07/27/24 06:01 Chloride 94 mmol/L (98-107) L 07/27/24 06:01 Carbon Dioxide 44 mmol/L (21-32) H* 07/27/24 06:01 Anion Gap 8 (3-11) 07/27/24 06:01 BUN 22 mg/dl (6-23) 07/27/24 06:01 Creatinine 1.17 mg/dl (0.6-1.2) 07/27/24 06:01 Est Cr Clr Drug Dosing 26.6 ml/min 07/27/24 06:01 eGFR 46.59 07/27/24 06:01 BUN/Creatinine Ratio 18.8 (10-20) 07/27/24 06:01 Glucose 73 mg/dl (70-99(Fasting)) 07/27/24 06:01 Calcium 8.1 mg/dl (8.6-10.3) L 07/27/24 06:01 Phosphorus 2.9 mg/dl (2.5-4.9) 07/20/24 07:21 Magnesium 1.8 mg/dl (1.7-2.4) 07/26/24 07:37 Iron 37 mcg/dl (35-150) 07/22/24 05:57 TIBC 179 mcg/dl (250-450) L 07/22/24 05:57 Transferrin 128 mg/dl (200-360) L 07/22/24 05:57 Transferrin % Sat 21 % (15-50) 07/22/24 05:57 Ferritin 502.6 ng/ml (8-388) H 07/22/24 05:57 Total Bilirubin 0.4 mg/dl (0.2-1.0) 07/19/24 14:18 AST 32 U/L (13-39) 07/19/24 14:18 ALT 41 U/L (7-52) 07/19/24 14:18 Alkaline Phosphatase 87 U/L (34-104) 07/19/24 14:18 C-Reactive Protein 2.03 mg/dl (0-0.5) H 07/20/24 07:21 Total Protein 6.2 gm/dl (6.0-8.3) 07/19/24 14:18 Albumin 3.3 gm/dl (3.4-5.0) L 07/19/24 14:18 Globulin 2.9 gm/dl (2.5-4.0) 07/19/24 14:18 Albumin/Globulin Ratio 1.1 (0.9-2) 07/19/24 14:18 Vitamin B12 881 pg/ml (180-914) 07/22/24 05:57 Folate 9.15 ng/ml (>5.38) 07/22/24 05:57 TSH 3.367 uIu/ml (0.300-4.500) 07/20/24 07:21 Urine Color Yellow 07/19/24 20:15 Urine Appearance Clear (Clear) 07/19/24 20:15 Urine pH 5.5 (4.5-7.5) 07/19/24 20:15 Ur Specific [place] 1.006 (1.000-1.030) 07/19/24 20:15 Urine Protein Trace (Negative) H 07/19/24 20:15 Urine Glucose (UA) Negative (Negative) 07/19/24 20:15 Urine Ketones Negative (Negative) 07/19/24 20:15 Urine Blood 1+ (Negative) H 07/19/24 20:15 Urine Nitrite Negative (Negative) 07/19/24 20:15 Urine Bilirubin Negative (Negative) 07/19/24 20:15 Urine Urobilinogen Negative (Negative) 07/19/24 20:15 Ur Leukocyte Esterase 1+ (Negative) H 07/19/24 20:15 Urine WBC (Auto) 6-10 /hpf (0-5) H 07/19/24 20:15 Urine RBC (Auto) 0-2 /hpf (0-2) 07/19/24 20:15 U Hyaline Cast (Auto) 3-5 /lpf (0-2) H 07/19/24 20:15 U Epithel Cells (Auto) 3-5 /hpf (0-2) H 07/19/24 20:15 Urine Bacteria (Auto) None Seen (None Seen) 07/19/24 20:15 Adenovirus (PCR) Not Detected (NotDetected) 07/22/24 Unknown B. pertussis DNA (PCR) Not Detected (NotDetected) 07/22/24 Unknown B.parapertussis DNA PCR Not Detected (NotDetected) 07/22/24 Unknown C. pneumoniae DNA (PCR) Not Detected (NotDetected) 07/22/24 Unknown Coronavirus OC43 (PCR) Not Detected (NotDetected) 07/22/24 Unknown Coronavirus HKU1 (PCR) Not Detected (NotDetected) 07/22/24 Unknown Coronavirus 229E (PCR) Not Detected (NotDetected) 07/22/24 Unknown SARS-CoV-2 (PCR) Not Detected (NotDetected) 07/22/24 Unknown Coronavirus NL63 (PCR) Not Detected (NotDetected) 07/22/24 Unknown Human Metapneumovir PCR Not Detected (NotDetected) 07/22/24 Unknown Influenza Type A (PCR) Not Detected (NotDetected) 07/22/24 Unknown Influenza Type B (PCR) Not Detected (NotDetected) 07/22/24 Unknown M. pneumoniae (PCR) Not Detected (NotDetected) 07/22/24 Unknown Parainfluenza 1 (PCR) Not Detected (NotDetected) 07/22/24 Unknown Parainfluenza 2 (PCR) Not Detected (NotDetected) 07/22/24 Unknown Parainfluenza 3 (PCR) Not Detected (NotDetected) 07/22/24 Unknown Parainfluenza 4 (PCR) Not Detected (NotDetected) 07/22/24 Unknown RSV (PCR) DETECTED (NotDetected) A 07/22/24 Unknown Entero/Rhino (PCR) Not Detected (NotDetected) 07/22/24 Unknown Impressions Barium Swallow X-Ray 07/23/24 13:00 SINGLE CONTRAST BARIUM SWALLOW CLINICAL HISTORY: abnormal appearance of the esophagus COMPARISON STUDY: Modified barium swallow June 17, 2024. FLUOROSCOPY TIME: 1.01 minutes FLUOROSCOPY IMAGES: 9 Ka,r: 7.85 mGy FINDINGS: Single contrast barium swallow was performed. No esophageal mass or stricture was identified although mucosal detail was diminished given single contrast technique. This exam was technically difficult given difficulty positioning. Severe esophageal dysmotility was noted. Therefore, gastroesophageal reflux was difficult to assess for. No hiatal hernia was identified. IMPRESSION: 1. Severe esophageal dysmotility. 2. No esophageal mass or stricture identified although mucosal detail diminished given single contrast technique. ACT 112: Negative or not required by law. Electronically signed by: Johnnie Hdz M.D. 07/23/2024 1:48 PM Chest X-Ray 07/26/24 08:51 XR chest 1V portable CLINICAL HISTORY: hypoxia COMPARISON STUDY: 07/22/2024 FINDINGS: Stable mild cardiomegaly without pulmonary vascular congestion. There is interval mild blunting of the right costophrenic angle. Otherwise stable stranding opacity in the lung bases with partial obscuration of the diaphragm. No pneumothorax. IMPRESSION: Bilateral lung base consolidation with possible small pleural effusions, stable on the left and mildly increased on the right. ACT 112: Negative or not required by law. Electronically signed by: Nestor Cordova M.D. 07/26/2024 9:19 AM (2) Dysphagia Dysphagia type: unspecified Qualified Code(s): R13.10 - Dysphagia, unspecified (8) RSV (respiratory syncytial virus infection) RSV infection type: unspecified Qualified Code(s): B33.8 - Other specified viral diseases
[2024-07-27 14:15] LABS: BUN Creatinine Ratio 19.4 (10-20); Calcium 8.5 mg/dl (8.6-10.3); Creatinine Clr Calc Pharmacy 25.1 ml/min; Potassium 3.2 mmol/L (3.5-5.1)
[2024-07-27] MEDS: POTASSIUM CHLORIDE 20 MEQ/15 ML UDC PO SCH (20:11)
[2024-07-28 07:26] LABS: Basophils # (auto) 0.02 K/uL (0.00-0.20); Basophils % (auto) 0.3 %; Eosinophils # (auto) 0.08 K/uL (0.00-0.50); Eosinophils % (auto) 1.1 %; Hematocrit (blood only) 30.3 % (37.0-47.0); Hemoglobin 10.1 g/dl (12.0-16.0); Immature Granulocytes # (auto) 0.02 K/uL (0.01-0.20); Immature Granulocytes % (auto) 0.3 %; Lymphocytes # (auto) 1.38 K/uL (1.20-3.40); Lymphocytes % (auto) 19.7 %; Mean Corpuscular Hemoglobin 28.5 pg (25.0-34.0); Mean Corpuscular Hgb Conc 33.3 g/dL (32.0-36.0); Mean Corpuscular Volume 85.4 fL (80.0-100.0); Mean Platelet Volume 10.5 fL (9.4-12.4); Monocytes # (auto) 0.86 K/uL (0.11-0.59); Monocytes % (auto) 12.3 %; Neutrophils # (auto) 4.65 K/uL (1.40-6.50); Neutrophils % (auto) 66.3 %; Platelet Count 182 K/uL (130-400); RDW Coefficient of Variation 14.3 % (11.5-14.5); RDW Standard Deviation 44.2 fL (36.4-46.3); Red Blood Count 3.55 M/uL (4.20-5.40); White Blood Count 7.01 K/ul (4.8-10.8)
[2024-07-28 07:50] LABS: Alanine Aminotransferase 26 U/L (7-52); Albumin Level 2.6 gm/dl (3.4-5.0); Alkaline Phosphatase 85 U/L (34-104); Aspartate Aminotransferase 37 U/L (13-39); BUN Creatinine Ratio 14.1 (10-20); Bilirubin,Total 0.5 mg/dl (0.2-1.0); Blood Urea Nitrogen 18 mg/dl (6-23); Calcium 7.8 mg/dl (8.6-10.3); Carbon Dioxide > 45 mmol/L (21-32); Chloride 86 mmol/L (98-107); Creatinine Clr Calc Pharmacy 24.3 ml/min; Globulin 2.7 gm/dl (2.5-4.0); Glucose 150 mg/dl (70-99(Fasting)); Sodium 136 mmol/L (136-145); Total Protein 5.3 gm/dl (6.0-8.3)
[2024-07-28] MEDS: POTASSIUM CHLORIDE / WTR 10 MEQ/100 ML PLCT IV SCH (08:31)
[2024-07-28 08:46] LABS: Magnesium 1.5 mg/dl (1.7-2.4)
--- NOTE | 2024-07-28 13:51 | Hospitalist Progress Note ---
<Statement entered by Mark Issa, - 07/28/24 16:17> I have seen and examined the patient and have discussed the case with the advance practice provider. I have reviewed the advanced practitioner's documentation, and I agree with, and take responsibility for that plan of care. Patient offers no complaints from overnight. Reviewed laboratory studies, suspect component of contraction alkalosis. Replace electrolytes, hold diuretic Reviewed repeat BMP, carbon dioxide, improved electrolyte replacement improved Plan of care as outlined below I spent a total of 18 minutes coordinating, documenting, and providing care for this patient excluding time spent by another provider/QHP. Date of Service July 28, 2024 Assessment & Plan (1) Early satiety: (2) Dysphagia: (3) Severe malnutrition: (4) Unintentional weight loss: (5) Adult failure to thrive: (6) Esophageal dysmotility: (7) Ulcerative esophagitis: (8) RSV (respiratory syncytial virus infection): (9) Chronic respiratory failure with hypoxia and hypercapnia: (10) Pressure ulcer of right buttock, stage 3: Plan Leela Villanueva is an 83y/o F with PMHx significant for chronic respiratory failure with hypoxia on 2L NC, COPD, ILD, PAF anticoagulated on Eliquis, chronic HFpEF [EF = 60-64%; 05/2024], HLD, hypothyroidism, GERD, migraines, benign paroxysmal vertigo, CIELO and depression who presented to the ED on 07/19/24 with complaints of early satiety, unintentional weight loss and failure to thrive ISO dysphagia. Recent hospitalization at [facility] in May 2024 2/2 atrial fibrillation/flutter in which she underwent cardioversion and has since remained in sinus rhythm. During that time, there was also noted to be some issues with swallowing. Had video swallow was done which did not show any significant aspiration and speech recommended an easy to chew diet. From there, patient was discharged to [facility] (SNF). Patient had to be readmitted to a [facility] while at rehab 2/2 pneumonia. Again had complaints of difficulty swallowing/early satiety during that hospitalization. It was recommended she see a GI provider as an outpatient. She ended up being discharged home from that hospitalization. She was recently seen in the outpatient GI setting at [facility] on 07/16/24 and had scheduled an outpatient EGD for 08/01/24. Family was concerned that the patient would not make it to that outpatient EGD due to persistent poor intake and therefore was brought to [facility] again for further evaluation regarding her early satiety/dysphagia. Patient has lost ~30lbs since May 2024 per family. Early Satiety & Dysphagia Ulcerative Esophagitis, Severe Malnutrition + Failure to Thrive ISO Severe Esophageal Dysmotility Underwent EGD with GI on 07/22. EGD revealed slight corkscrew appearance of esophagus however it was not dilated. There was no retained food in the esophagus itself. EGD did however note mucosal breaks above the GE junction consistent with superficial ulcerations - atypical for reflux. Biopsies performe d which came back + for ulcerative esophagitis. Carafate QID added on. Barium swallow study on 07/23 with severe esophageal dysmotility. Suspect pill- induced esophagitis likely 2/2 po iron supplements ISO severe dysmotility. Holding iron supplementation for now. Remeron added on to increase appetite stimulation - may benefit from increase in dose to 45mg for stronger effectiveness. She is tolerating a pured diet. Aspiration precautions. Dietitian evaluated on 07/20 - Boost supplementation TID added on. Daily weights ordered. Aspiration pneumonia Patient noted to have increased O2 requirement + wheezing and coarse breath sounds CXR-Bilateral lung base consolidation with possible small pleural effusions Patient is at high risk for aspiration given severe esophageal dysmotility Continue IV Unasyn, scheduled nebs Hypernatremia resolved Acute RSV Infection - Noted on 07/22/24 Chronic Hypoxic Respiratory Failure ISO COPD and ILD on 2L NC & Chronic Hypercarbia Noted moist cough on exam on 07/22. Rhonchi heard in bilateral lung bases as well. recently developed URI symptoms and was in to see her over the weekend. Respiratory BioFire panel ordered and came back positive for RSV on 07/22. CXR on 07/22 revealed subsegmental atelectasis in the lung bases but no evidence of consolidation. Anemia Hgb 11.2 on admission -> 9.2 on 07/21 --> 10.2 -> 11.2 -> 10.7 today. Hgb was 12 back in May 2024 on discharge. Iron panel reviewed. Ferritin 502.6 likely 2/2 malnutrition, iron 37. Holding iron supplement as per above. No s/sx of bleeding. Suspect mostly 2/2 nutritional status given weight loss. No indication for transfusion at this time. TSH WNL this admission. No active bleeding on EGD. PAF Rhythm controlled on sotalol Initially Eliquis held due to EGD - no active bleeding noted, hgb stable. Eliquis resumed on 07/25 however at reduced dose 2.5mg BID due to age > 80 and weight < 60kg Chronic HFpEF CXR on 07/22 w/o evidence of vascular congestion Resting echo from 05/2024 reviewed --> EF = 60-64%, increased concentric LV wall thickness, normal LV wall motion, grade I DD, mildly enlarged LA, mild MR and mild TR Lasix initially held due to concerns of dehydration, has increased BL LE edema on exam today, resumed Lasix at reduced dose 40 mg daily ([employer]ICATION[employer] DISPATCHER dose 40mg BID) on 07/25 Lasix held on 07/28/2024 secondary to hypokalemia & hypercarbia Pressure Ulcer of R Buttock, Stage III WOCN consulted. R lower medial buttock pressure ulcer with 26-50% slough. Q2H repositioning, routine dressings per WOCN. Hypothyroidism TSH WNL, continue levothyroxine GERD Transitioned po PPI to IV PPI 2/2 ulcerations on EGD HLD Continue statin. DVT Prophylaxis On Eliquis PCP: Umair Gillis DO Disposition: Palliative met with family today, see note for full details. Code status changed to DNR. Plan for no further escalation of care and DC to [place] for SNF trial and moved to long-term care/ comfort. I spent a total of 35 minutes coordinating, documenting, and providing care for this patient excluding time spent in the performance of separately billed s ervices. This included personally reviewing all current laboratories and imaging studies, medication reconciliation, outpatient chart review, and discussion with specialists. Admission and Anticipated Discharge Date Admission Date: July 19, 2024 Subjective Patient seen and examined. No apparent distress. Confused and hard of hearing. Eating breakfast with no complaints. Denies any shortness of breath or chest pain. Appears oxygen needs are improving. Review of Systems Review of Systems: All systems reviewed & are unremarkable except as noted in HPI & below Physical Exam Constitutional: WD/WN, vitals as above + ill appearing Eyes: PERRL, conjunctivae normal, anicteric sclerae ENMT: external ear and nose normal, oropharynx normal Neck: trachea midline, no thyromegaly Respiratory: normal respiratory effort; no labored breathing Auscultation: + crackles and + rales Cardiovascular: RRR, no murmur, no edema Gastrointestinal (Abdomen): normal bowel sounds, soft, nontender, no hepatosplenomegaly Musculoskeletal: no cyanosis or clubbing, extremities motor strength 5/5 Skin: no rashes, warm and dry Neurologic: PERRL, EOMI, accommodation nl, no face palsy, no dysarthria Psychiatric: A+Ox3, euthymic affect Orientation: oriented to person Lymphatic: no cervical or axillary lymphadenopathy Results & Data Results & Data Vital Signs (Past 12 Hours) Vital Signs Temp Pulse Resp BP Pulse Ox O2 Del Method O2 Flow Rate 07/28/24 10:50 72 18 94 Nasal Cannula 2 07/28/24 08:00 Nasal Cannula 2 07/28/24 07:35 36.5 C 54 L 16 115/72 93 Nasal Cannula 2 07/28/24 07:12 70 18 95 Nasal Cannula 2 Diagnostic Findings Laboratory Results WBC 7.01 K/ul (4.8-10.8) 07/28/24 06:39 RBC 3.55 M/uL (4.20-5.40) L 07/28/24 06:39 Hgb 10.1 g/dl (12.0-16.0) L 07/28/24 06:39 Hct 30.3 % (37.0-47.0) L 07/28/24 06:39 MCV 85.4 fL (80.0-100.0) 07/28/24 06:39 MCH 28.5 pg (25.0-34.0) 07/28/24 06:39 MCHC 33.3 g/dL (32.0-36.0) 07/28/24 06:39 RDW Std Deviation 44.2 fL (36.4-46.3) 07/28/24 06:39 RDW Coeff of Neena 14.3 % (11.5-14.5) 07/28/24 06:39 Plt Count 182 K/uL (130-400) 07/28/24 06:39 MPV 10.5 fL (9.4-12.4) 07/28/24 06:39 Immature Gran % (Auto) 0.3 % 07/28/24 06:39 Neut % (Auto) 66.3 % 07/28/24 06:39 Lymph % (Auto) 19.7 % 07/28/24 06:39 [place] % (Auto) 12.3 % 07/28/24 06:39 Eos % (Auto) 1.1 % 07/28/24 06:39 Baso % (Auto) 0.3 % 07/28/24 06:39 Neut # (Auto) 4.65 K/uL (1.40-6.50) 07/28/24 06:39 Lymph # (Auto) 1.38 K/uL (1.20-3.40) 07/28/24 06:39 Haskell # (Auto) 0.86 K/uL (0.11-0.59) H 07/28/24 06:39 Eos # (Auto) 0.08 K/uL (0.00-0.50) 07/28/24 06:39 Baso # (Auto) 0.02 K/uL (0.00-0.20) 07/28/24 06:39 Immature Gran # (Auto) 0.02 K/uL (0.01-0.20) 07/28/24 06:39 Sodium 135 mmol/L (136-145) L 07/28/24 13:57 Potassium 3.7 mmol/L (3.5-5.1) D 07/28/24 13:57 Chloride 91 mmol/L (98-107) L 07/28/24 13:57 Carbon Dioxide 40 mmol/L (21-32) H 07/28/24 13:57 Anion Gap 4 (3-11) 07/28/24 13:57 BUN 16 mg/dl (6-23) 07/28/24 13:57 Creatinine 1.19 mg/dl (0.6-1.2) 07/28/24 13:57 Est Cr Clr Drug Dosing 26.1 ml/min 07/28/24 13:57 eGFR 45.65 07/28/24 13:57 BUN/Creatinine Ratio 13.4 (10-20) 07/28/24 13:57 Glucose 97 mg/dl (70-99(Fasting)) 07/28/24 13:57 Calcium 8.2 mg/dl (8.6-10.3) L 07/28/24 13:57 Phosphorus 2.9 mg/dl (2.5-4.9) 07/20/24 07:21 Magnesium 1.5 mg/dl (1.7-2.4) L 07/28/24 06:39 Iron 37 mcg/dl (35-150) 07/22/24 05:57 TIBC 179 mcg/dl (250-450) L 07/22/24 05:57 Transferrin 128 mg/dl (200-360) L 07/22/24 05:57 Transferrin % Sat 21 % (15-50) 07/22/24 05:57 Ferritin 502.6 ng/ml (8-388) H 07/22/24 05:57 Total Bilirubin 0.5 mg/dl (0.2-1.0) 07/28/24 06:39 AST 37 U/L (13-39) 07/28/24 06:39 ALT 26 U/L (7-52) 07/28/24 06:39 Alkaline Phosphatase 85 U/L (34-104) 07/28/24 06:39 C-Reactive Protein 2.03 mg/dl (0-0.5) H 07/20/24 07:21 Total Protein 5.3 gm/dl (6.0-8.3) L 07/28/24 06:39 Albumin 2.6 gm/dl (3.4-5.0) L 07/28/24 06:39 Globulin 2.7 gm/dl (2.5-4.0) 07/28/24 06:39 Albumin/Globulin Ratio 1.0 (0.9-2) 07/28/24 06:39 Vitamin B12 881 pg/ml (180-914) 07/22/24 05:57 Folate 9.15 ng/ml (>5.38) 07/22/24 05:57 TSH 3.367 uIu/ml (0.300-4.500) 07/20/24 07:21 Urine Color Yellow 07/19/24 20:15 Urine Appearance Clear (Clear) 07/19/24 20:15 Urine pH 5.5 (4.5-7.5) 07/19/24 20:15 Ur Specific [place] 1.006 (1.000-1.030) 07/19/24 20:15 Urine Protein Trace (Negative) H 07/19/24 20:15 Urine Glucose (UA) Negative (Negative) 07/19/24 20:15 Urine Ketones Negative (Negative) 07/19/24 20:15 Urine Blood 1+ (Negative) H 07/19/24 20:15 Urine Nitrite Negative (Negative) 07/19/24 20:15 Urine Bilirubin Negative (Negative) 07/19/24 20:15 Urine Urobilinogen Negative (Negative) 07/19/24 20:15 Ur Leukocyte Esterase 1+ (Negative) H 07/19/24 20:15 Urine WBC (Auto) 6-10 /hpf (0-5) H 07/19/24 20:15 Urine RBC (Auto) 0-2 /hpf (0-2) 07/19/24 20:15 U Hyaline Cast (Auto) 3-5 /lpf (0-2) H 07/19/24 20:15 U Epithel Cells (Auto) 3-5 /hpf (0-2) H 07/19/24 20:15 Urine Bacteria (Auto) None Seen (None Seen) 07/19/24 20:15 Adenovirus (PCR) Not Detected (NotDetected) 07/22/24 Unknown B. pertussis DNA (PCR) Not Detected (NotDetected) 07/22/24 Unknown B.parapertussis DNA PCR Not Detected (NotDetected) 07/22/24 Unknown C. pneumoniae DNA (PCR) Not Detected (NotDetected) 07/22/24 Unknown Coronavirus OC43 (PCR) Not Detected (NotDetected) 07/22/24 Unknown Coronavirus HKU1 (PCR) Not Detected (NotDetected) 07/22/24 Unknown Coronavirus 229E (PCR) Not Detected (NotDetected) 07/22/24 Unknown SARS-CoV-2 (PCR) Not Detected (NotDetected) 07/22/24 Unknown Coronavirus NL63 (PCR) Not Detected (NotDetected) 07/22/24 Unknown Human Metapneumovir PCR Not Detected (NotDetected) 07/22/24 Unknown Influenza Type A (PCR) Not Detected (NotDetected) 07/22/24 Unknown Influenza Type B (PCR) Not Detected (NotDetected) 07/22/24 Unknown M. pneumoniae (PCR) Not Detected (NotDetected) 07/22/24 Unknown Parainfluenza 1 (PCR) Not Detected (NotDetected) 07/22/24 Unknown Parainfluenza 2 (PCR) Not Detected (NotDetected) 07/22/24 Unknown Parainfluenza 3 (PCR) Not Detected (NotDetected) 07/22/24 Unknown Parainfluenza 4 (PCR) Not Detected (NotDetected) 07/22/24 Unknown RSV (PCR) DETECTED (NotDetected) A 07/22/24 Unknown Entero/Rhino (PCR) Not Detected (NotDetected) 07/22/24 Unknown Impressions Barium Swallow X-Ray 07/23/24 13:00 SINGLE CONTRAST BARIUM SWALLOW CLINICAL HISTORY: abnormal appearance of the esophagus COMPARISON STUDY: Modified barium swallow June 17, 2024. FLUOROSCOPY TIME: 1.01 minutes FLUOROSCOPY IMAGES: 9 Ka,r: 7.85 mGy FINDINGS: Single contrast barium swallow was performed. No esophageal mass or stricture was identified although mucosal detail was diminished given single contrast technique. This exam was technically difficult given difficulty positioning. Severe esophageal dysmotility was noted. Therefore, gastroesophageal reflux was difficult to assess for. No hiatal hernia was identified. IMPRESSION: 1. Severe esophageal dysmotility. 2. No esophageal mass or stricture identified although mucosal detail diminished given single contrast technique. ACT 112: Negative or not required by law. Electronically signed by: Johnnie Hdz M.D. 07/23/2024 1:48 PM Chest X-Ray 07/26/24 08:51 XR chest 1V portable CLINICAL HISTORY: hypoxia COMPARISON STUDY: 07/22/2024 FINDINGS: Stable mild cardiomegaly without pulmonary vascular congestion. There is interval mild blunting of the right costophrenic angle. Otherwise stable stranding opacity in the lung bases with partial obscuration of the diaphragm. No pneumothorax. IMPRESSION: Bilateral lung base consolidation with possible small pleural effusions, stable on the left and mildly increased on the right. ACT 112: Negative or not required by law. Electronically signed by: Nestor Cordova M.D. 07/26/2024 9:19 AM (2) Dysphagia Dysphagia type: unspecified Qualified Code(s): R13.10 - Dysphagia, unspecified (8) RSV (respiratory syncytial virus infection) RSV infection type: unspecified Qualified Code(s): B33.8 - Other specified viral diseases
[2024-07-28] MEDS: MAGNESIUM SULFATE / D5W 1 GM/100 ML BAG IV SCH (14:08)
[2024-07-28 14:37] LABS: BUN Creatinine Ratio 13.4 (10-20); Calcium 8.2 mg/dl (8.6-10.3); Creatinine Clr Calc Pharmacy 26.1 ml/min; Potassium 3.7 mmol/L (3.5-5.1)
[2024-07-28] MEDS: ONDANSETRON INJ 2 MG/ML 2 ML VIAL IV PRN (17:32)
--- NOTE | 2024-07-29 10:09 | Hospitalist Progress Note ---
<Statement entered by Mark Issa DO - 07/29/24 12:19> I have seen and examined the patient and have discussed the case with the advance practice provider. I have reviewed the advanced practitioner's documentation, and I agree with, and take responsibility for that plan of care. Sitting up in chair looking at her phone, however seems quite suspicious and paranoid for me asking me to leave. Patient did not appear to be any acute distress. Pursuing placement at [place] I spent a total of 10 minutes coordinating, documenting, and providing care for this patient excluding time spent by another provider/QHP. Date of Service July 29, 2024 Assessment & Plan (1) Early satiety: (2) Dysphagia: (3) Severe malnutrition: (4) Unintentional weight loss: (5) Adult failure to thrive: (6) Esophageal dysmotility: (7) Ulcerative esophagitis: (8) RSV (respiratory syncytial virus infection): (9) Chronic respiratory failure with hypoxia and hypercapnia: (10) Pressure ulcer of right buttock, stage 3: Plan Leela Villanueva is an 83y/o F with PMHx significant for chronic respiratory failure with hypoxia on 2L NC, COPD, ILD, PAF anticoagulated on Eliquis, chronic HFpEF [EF = 60-64%; 05/2024], HLD, hypothyroidism, GERD, migraines, benign paroxysmal vertigo, CIELO and depression who presented to the ED on 07/19/24 with complaints of early satiety, unintentional weight loss and failure to thrive ISO dysphagia. Recent hospitalization at [facility] in May 2024 2/2 atrial fibrillation/flutter in which she underwent cardioversion and has since remained in sinus rhythm. During that time, there was also noted to be some issues with swallowing. Had video swallow was done which did not show any significant aspiration and speech recommended an easy to chew diet. From there, patient was discharged to [facility] (SNF). Patient had to be readmitted to a [facility] while at rehab 2/2 pneumonia. Again had complaints of difficulty swallowing/early satiety during that hospitalization. It was recommended she see a GI provider as an outpatient. She ended up being discharged home from that hospitalization. She was recently seen in the outpatient GI setting at [facility] on 07/16/24 and had scheduled an outpatient EGD for 08/01/24. Family was concerned that the patient would not make it to that outpatient EGD due to persistent poor intake and therefore was brought to [facility] again for further evaluation regarding her early satiety/dysphagia. Patient has lost ~30lbs since May 2024 per family. Early Satiety & Dysphagia Ulcerative Esophagitis, Severe Malnutrition + Failure to Thrive ISO Severe Esophageal Dysmotility Underwent EGD with GI on 07/22. EGD revealed slight corkscrew appearance of esophagus however it was not dilated. There was no retained food in the esophagus itself. EGD did however note mucosal breaks above the GE junction consistent with superficial ulcerations - atypical for reflux. Biopsies performed which came back + for ulcerative esophagitis. Carafate QID added on. Barium swallow study on 07/23 with severe esophageal dysmotility. Suspect pill- induced esophagitis likely 2/2 po iron supplements ISO severe dysmotility. Holding iron supplementation for now. Remeron added on to increase appetite stimulation - may benefit from increase in dose to 45mg for stronger effectiveness. She is tolerating a pured diet. Aspiration precautions. Dietitian evaluated on 07/20 - Boost supplementation TID added on. Daily weights ordered. Aspiration pneumonia Patient noted to have increased O2 requirement + wheezing and coarse breath sounds CXR-Bilateral lung base consolidation with possible small pleural effusions Patient is at high risk for aspiration given severe esophageal dysmotility Continue IV Unasyn until 08/03/2024 Hypernatremia resolved Acute RSV Infection - Noted on 07/22/24 Chronic Hypoxic Respiratory Failure ISO COPD and ILD on 2L NC & Chronic Hypercarbia Noted moist cough on exam on 07/22. Rhonchi heard in bilateral lung bases as well. recently developed URI symptoms and was in to see her over the weekend. Respiratory BioFire panel ordered and came back positive for RSV on 07/22. CXR on 07/22 revealed subsegmental atelectasis in the lung bases but no evidence of consolidation. Anemia Hgb 11.2 on admission -> 9.2 on 07/21 --> 10.2 -> 11.2 -> 10.7. Hgb was 12 back in May 2024 on discharge. Iron panel reviewed. Ferritin 502.6 likely 2/2 malnutrition, iron 37. Holding iron supplement as per above. No s/sx of bleeding. Suspect mostly 2/2 nutritional status given weight loss. No indication for transfusion at this time. TSH WNL this admission. No active bleeding on EGD. PAF Rhythm controlled on sotalol Initially Eliquis held due to EGD - no active bleeding noted, hgb stable. Eliquis resumed on 07/25 however at reduced dose 2.5mg BID due to age > 80 and weight < 60kg Chronic HFpEF CXR on 07/22 w/o evidence of vascular congestion Resting echo from 05/2024 reviewed --> EF = 60-64%, increased concentric LV wall thickness, normal LV wall motion, grade I DD, mildly enlarged LA, mild MR and mild TR Lasix initially held due to concerns of dehydration, has increased BL LE edema on exam today, resumed Lasix at reduced dose 40 mg daily (ENDBANDER dose 40mg BID) on 07/25 Lasix held on 07/28/2024 secondary to hypokalemia & hypercarbia Pressure Ulcer of R Buttock, Stage III WOCN consulted. R lower medial buttock pressure ulcer with 26-50% slough. Q2H repositioning, routine dressings per WOCN. Hypothyroidism TSH WNL, continue levothyroxine GERD Transitioned po PPI to IV PPI 2/2 ulcerations on EGD HLD Continue statin. DVT Prophylaxis On Eliquis PCP: Umair Gillis DO Disposition: Palliative met with family on 07/27, see note for full details. Code status changed to DNR. Plan for no further escalation of care and DC to [place] for SNF trial and moved to long-term care/ comfort. Awaiting application from family to determine DC date. I spent a total of 35 minutes coordinating, documenting, and providing care for this patient excluding time spent in the performance of separately billed services. This included personally reviewing all current laboratories and imaging studies, medication reconciliation, outpatient chart review, and discussion with specialists. Admission and Anticipated Discharge Date Admission Date: July 19, 2024 Subjective Patient seen and examined. No apparent distress. Confused and hard of hearing. Some agitation this morning. Refusing medications and blood draws from nursing. Eating breakfast with no complaints. Denies any shortness of breath or chest pain. Appears oxygen needs are improving. Physical Exam Constitutional: WD/WN, vitals as above + ill appearing Eyes: PERRL, conjunctivae normal, anicteric sclerae ENMT: external ear and nose normal, oropharynx normal Neck: trachea midline, no thyromegaly Respiratory: normal respiratory effort; no labored breathing Auscultation: + crackles and + rales Cardiovascular: RRR, no murmur, no edema Gastrointestinal (Abdomen): normal bowel sounds, soft, nontender, no hepatosplenomegaly Musculoskeletal: no cyanosis or clubbing, extremities motor strength 5/5 Skin: no rashes, warm and dry Neurologic: PERRL, EOMI, accommodation nl, no face palsy, no dysarthria Psychiatric: A+Ox3, euthymic affect Orientation: oriented to person Lymphatic: no cervical or axillary lymphadenopathy Results & Data Results & Data Vital Signs (Past 12 Hours) Vital Signs Temp Pulse Resp BP Pulse Ox O2 Del Method O2 Flow Rate 07/29/24 07:12 36.7 C 67 17 113/73 90 Nasal Cannula 2 (2) Dysphagia Dysphagia type: unspecified Qualified Code(s): R13.10 - Dysphagia, unspecified (8) RSV (respiratory syncytial virus infection) RSV infection type: unspecified Qualified Code(s): B33.8 - Other specified viral diseases
[2024-07-29] MEDS ORDERED: AMPICILLIN 250 MG in SODIUM CHLORIDE 0.9% 50 ML IV SCH (10:15)
[2024-07-29] MEDS: AMPICILLIN/SULBACTAM SOD 1,500 MG/100 ML BAG IV SCH (12:11)
--- NOTE | 2024-07-29 14:03 | Palliative Care Progress Note ---
Date of Service July 29, 2024 Assessment & Plan (1) Palliative care by specialist: Plan: Assessed pt at bedside as continuation of care provided by previous palliative care provider. Her son Morris was at bedside. (2) Cachexia: Plan: Pt complains about pureed diet and requests solid food. Discussed aspiration prevention and encouraged trying a variety of foods within dietary restrictions to identify more palatable options while mitigating risk of aspiration. (3) Weakness generalized: (4) Encounter for end of life education, guidance and counseling: Plan A 35min discussion held at the bedside with pt and her son, Morris. Today pt is confused and refusing her scheduled medications, per Morris, pt stated to him that she does not trust the staff at hospital. Pt does require a proxy for medical decisions. Patient has exhibited current lack of decisional capacity based on the inability to convey understanding of personal PMHx, current medical condition, treatment options nor the risks / benefits of those options, and lack of ability to make decisions based on such knowledge. Hospital does not have written documentation of patient wishes concerning her chosen proxy for medical decisions. Per PA [id number], in absence of written documentation of patient wishes, pt's proxy for medical decisions would be her spouse Carson Villanueva. We discussed the clinical events to date and how we can help offer care c/w pt goals and values. Morris again reinforced the desire for dc to SNF to optimize strength and health followed by a transition to hospice care. He reinforced that family could not offer the care she requires at home. He feels that given the pt's physical and cognitive decline, he has concerns that the pt will be resistant to and not derive any real benefit from PT/OT at this point. We discussed pt preferences for being home and the logistical issues of care needs and safety/risk of falls. SNF rehab trial and transition to LTC/comfort with hospice as goal discussed. Morris shared that the family has had lengthy discussion and decided that they will not be able to manage pt's care at home. He shared that the family is not all in agreement to pursue [employer] as yet but they do all agree that they will not be able to offer the care she requires at home. She will not have adequate caregiver support to be home Plan in place for SNF w/ rehab, no escalation, no labs, no return to [facility], no aggressive care or interventions, focus is QOL. Family is working with CM to identify SNF. Admission and Anticipated Discharge Date Admission Date: July 19, 2024 Subjective Pt is awake and alert, but confused. She is sitting upright in chair and in NAD. She denies any discomfort. Review of Systems Review of Systems: Unobtainable due to cognitive status Physical Exam Constitutional: WD/WN, vitals as above + ill appearing Eyes: PERRL, conjunctivae normal, anicteric sclerae ENMT: external ear and nose normal, oropharynx normal Neck: trachea midline, no thyromegaly Respiratory: normal respiratory effort; no labored breathing Auscultation: + crackles and + rales Cardiovascular: RRR, no murmur, no edema Gastrointestinal (Abdomen): normal bowel sounds, soft, nontender, no hepatosplenomegaly Musculoskeletal: no cyanosis or clubbing, extremities motor strength 5/5 Skin: no rashes, warm and dry Neurologic: PERRL, EOMI, accommodation nl, no face palsy, no dysarthria Psychiatric: A+Ox3, euthymic affect Orientation: oriented to person Lymphatic: no cervical or axillary lymphadenopathy Results & Data Vital Signs (Past 12 Hours) Vital Signs Temp Pulse Resp BP Pulse Ox O2 Del Method O2 Flow Rate 07/29/24 11:33 71 18 94 Nasal Cannula 2 07/29/24 07:45 Nasal Cannula 2 07/29/24 07:12 36.7 C 67 17 113/73 90 Nasal Cannula 2 Laboratory Results Abnormal lab results 07/28/24 Range/Units 13:57 Sodium 135 L (136-145) mmol/L Chloride 91 L (98-107) mmol/L Carbon Dioxide 40 H (21-32) mmol/L Calcium 8.2 L (8.6-10.3) mg/dl Diagnostic Findings Barium Swallow X-Ray 07/23/24 13:00 SINGLE CONTRAST BARIUM SWALLOW CLINICAL HISTORY: abnormal appearance of the esophagus COMPARISON STUDY: Modified barium swallow June 17, 2024. FLUOROSCOPY TIME: 1.01 minutes FLUOROSCOPY IMAGES: 9 Ka,r: 7.85 mGy FINDINGS: Single contrast barium swallow was performed. No esophageal mass or stricture was identified although mucosal detail was diminished given single contrast technique. This exam was technically difficult given difficulty positioning. Severe esophageal dysmotility was noted. Therefore, gastroesophageal reflux was difficult to assess for. No hiatal hernia was identified. IMPRESSION: 1. Severe esophageal dysmotility. 2. No esophageal mass or stricture identified although mucosal detail diminished given single contrast technique. ACT 112: Negative or not required by law. Electronically signed by: Johnnie Hdz M.D. 07/23/2024 1:48 PM Chest X-Ray 07/26/24 08:51 XR chest 1V portable CLINICAL HISTORY: hypoxia COMPARISON STUDY: 07/22/2024 FINDINGS: Stable mild cardiomegaly without pulmonary vascular congestion. There is interval mild blunting of the right costophrenic angle. Otherwise stable stranding opacity in the lung bases with partial obscuration of the diaphragm. No pneumothorax. IMPRESSION: Bilateral lung base consolidation with possible small pleural effusions, stable on the left and mildly increased on the right. ACT 112: Negative or not required by law. Electronically signed by: Nestor Cordova M.D. 07/26/2024 9:19 AM Medications Administered Abnormal lab results 07/28/24 Range/Units 13:57 Sodium 135 L (136-145) mmol/L Chloride 91 L (98-107) mmol/L Carbon Dioxide 40 H (21-32) mmol/L Calcium 8.2 L (8.6-10.3) mg/dl PG Care Time/CCT Total # of Minutes Spent Total Time Spent with Patient: Total time spent is greater than 50% in coordination of care (as documented) at patient's floor/unit and/or counseling patient: Advanced Care Planning 52647 Advanced Care Planning 30 Min [place] [address] SUB INP/OBS CARE 2/35MIN Patient Type Established History Expanded Problem Focused Exam Expanded Problem Focused Medical Decision Making Moderate Complexity Diagnoses Palliative care by specialist Z51.5 Cachexia R64 Weakness generalized R53.1 Encounter for end of life education, guidance and counseling Additional Codes Advanced Care Planning - 11937 Advanced Care Planning 30 Min: 84399 Advanced Care Planning 30 Min ([id number])
[2024-07-29 15:16] LABS: Basophils # (auto) 0.03 K/uL (0.00-0.20); Basophils % (auto) 0.4 %; Eosinophils # (auto) 0.03 K/uL (0.00-0.50); Eosinophils % (auto) 0.4 %; Hematocrit (blood only) 31.8 % (37.0-47.0); Hemoglobin 10.3 g/dl (12.0-16.0); Immature Granulocytes # (auto) 0.05 K/uL (0.01-0.20); Immature Granulocytes % (auto) 0.6 %; Lymphocytes # (auto) 1.66 K/uL (1.20-3.40); Mean Corpuscular Hemoglobin 27.5 pg (25.0-34.0); Mean Corpuscular Hgb Conc 32.4 g/dL (32.0-36.0); Mean Platelet Volume 10.8 fL (9.4-12.4); Monocytes # (auto) 0.98 K/uL (0.11-0.59); Monocytes % (auto) 11.8 %; Neutrophils # (auto) 5.53 K/uL (1.40-6.50); Neutrophils % (auto) 66.8 %; Platelet Count 205 K/uL (130-400); RDW Coefficient of Variation 14.6 % (11.5-14.5); RDW Standard Deviation 44.6 fL (36.4-46.3); Red Blood Count 3.74 M/uL (4.20-5.40); White Blood Count 8.28 K/ul (4.8-10.8)
[2024-07-29 15:39] LABS: Albumin Globulin Ratio 0.9 (0.9-2); Albumin Level 2.6 gm/dl (3.4-5.0); BUN Creatinine Ratio 12.2 (10-20); Bilirubin,Total 0.5 mg/dl (0.2-1.0); Calcium 8.2 mg/dl (8.6-10.3); Creatinine Clr Calc Pharmacy 21.3 ml/min; Potassium 3.2 mmol/L (3.5-5.1); Total Protein 5.6 gm/dl (6.0-8.3)
[2024-07-29 16:13] LABS: Magnesium 2.2 mg/dl (1.7-2.4)
[2024-07-29] MEDS: AMPICILLIN/SULBACTAM SOD 3,000 MG/100 ML BAG IV SCH (16:21)
[2024-07-29] MEDS: POTASSIUM CHLORIDE / WTR 10 MEQ/100 ML PLCT IV SCH (17:02)
[2024-07-30 07:46] LABS: Hematocrit (blood only) 29.2 % (37.0-47.0); Hemoglobin 9.3 g/dl (12.0-16.0); Mean Corpuscular Hemoglobin 27.8 pg (25.0-34.0); Mean Corpuscular Hgb Conc 31.8 g/dL (32.0-36.0); Mean Corpuscular Volume 87.2 fL (80.0-100.0); Mean Platelet Volume 11.1 fL (9.4-12.4); Platelet Count 164 K/uL (130-400); RDW Coefficient of Variation 14.8 % (11.5-14.5); RDW Standard Deviation 47.5 fL (36.4-46.3); Red Blood Count 3.35 M/uL (4.20-5.40); White Blood Count 6.09 K/ul (4.8-10.8)
[2024-07-30 08:08] LABS: Albumin Globulin Ratio 0.9 (0.9-2); Albumin Level 2.5 gm/dl (3.4-5.0); BUN Creatinine Ratio 14.9 (10-20); Bilirubin,Total 0.4 mg/dl (0.2-1.0); Calcium 7.9 mg/dl (8.6-10.3); Creatinine Clr Calc Pharmacy 20.3 ml/min; Globulin 2.8 gm/dl (2.5-4.0); Potassium 3.9 mmol/L (3.5-5.1); Total Protein 5.3 gm/dl (6.0-8.3)
[2024-07-30] MEDS: POTASSIUM CHLORIDE CRTAB 20 MEQ TABCR PO SCH (08:59)
--- NOTE | 2024-07-30 12:02 | Palliative Care Progress Note ---
Date of Service July 30, 2024 Assessment & Plan (1) Palliative care by specialist: Plan: Assessed pt at bedside as continuation of care provided by previous palliative care provider. No family at bedside. (2) Cachexia: Plan: Pt complains about pureed diet and requests solid food. Reinforced aspiration prevention and encouraged trying a variety of foods within dietary restrictions to identify more palatable options while mitigating risk of aspiration. (3) Weakness generalized: Plan A 35min discussion held at the bedside with pt and her son, Morris. Today pt is confused and refusing her scheduled medications, per Morris, pt stated to him that she does not trust the staff at hospital. Pt does require a proxy for medical decisions. Patient has exhibited current lack of decisional capacity based on the inability to convey understanding of personal PMHx, current medical condition, treatment options nor the risks / benefits of those options, and lack of ability to make decisions based on such knowledge. Hospital does not have written documentation of patient wishes concerning her chosen proxy for medical decisions. Per PA [id number], in absence of written documentation of patient wishes, pt's proxy for medical decisions would be her spouse Carson Villanueva. Goals of care clearly established. Plan in place for SNF w/ rehab, no escalation, no labs, no return to [facility], no aggressive care or interventions, focus is QOL. Family is working with CM to identify SNF. Thank you for including Palliative Care in the management of this patient. Please call with any questions or concerns regarding this consultation. Admission and Anticipated Discharge Date Admission Date: July 19, 2024 Subjective Pt is awake and alert, but confused. She is sitting upright in chair and in NAD. She denies any discomfort. Review of Systems Review of Systems: Unobtainable due to cognitive status Physical Exam Constitutional: WD/WN, vitals as above + ill appearing Eyes: PERRL, conjunctivae normal, anicteric sclerae ENMT: external ear and nose normal, oropharynx normal Neck: trachea midline, no thyromegaly Respiratory: normal respiratory effort; no labored breathing Auscultation: + crackles and + rales Cardiovascular: RRR, no murmur, no edema Gastrointestinal (Abdomen): normal bowel sounds, soft, nontender, no hepatosplenomegaly Musculoskeletal: no cyanosis or clubbing, extremities motor strength 5/5 Skin: no rashes, warm and dry Neurologic: PERRL, EOMI, accommodation nl, no face palsy, no dysarthria Psychiatric: A+Ox3, euthymic affect Orientation: oriented to person Lymphatic: no cervical or axillary lymphadenopathy Results & Data Vital Signs (Past 12 Hours) Vital Signs Temp Pulse Resp BP Pulse Ox O2 Del Method O2 Flow Rate 07/30/24 11:47 60 16 100 Nasal Cannula 2 07/30/24 07:42 60 16 96 Nasal Cannula 2 07/30/24 07:20 36.6 C 18 106/57 L 98 Nasal Cannula 2 07/30/24 00:18 Nasal Cannula 2 Laboratory Results Abnormal lab results 07/29/24 07/30/24 Range/Units 14:48 07:04 RBC 3.74 L 3.35 L (4.20-5.40) M/uL Hgb 10.3 L 9.3 L (12.0-16.0) g/dl Hct 31.8 L 29.2 L (37.0-47.0) % MCHC 31.8 L (32.0-36.0) g/dL RDW Std Deviation 47.5 H (36.4-46.3) fL RDW Coeff of Neena 14.6 H 14.8 H (11.5-14.5) % [place] # (Auto) 0.98 H (0.11-0.59) K/uL Potassium 3.2 L (3.5-5.1) mmol/L Chloride 94 L 94 L (98-107) mmol/L Carbon Dioxide 41 H* 42 H* (21-32) mmol/L Creatinine 1.47 H 1.54 H (0.6-1.2) mg/dl Calcium 8.2 L 7.9 L (8.6-10.3) mg/dl AST 44 H (13-39) U/L Total Protein 5.6 L 5.3 L (6.0-8.3) gm/dl Albumin 2.6 L 2.5 L (3.4-5.0) gm/dl Diagnostic Findings Barium Swallow X-Ray 07/23/24 13:00 SINGLE CONTRAST BARIUM SWALLOW CLINICAL HISTORY: abnormal appearance of the esophagus COMPARISON STUDY: Modified barium swallow June 17, 2024. FLUOROSCOPY TIME: 1.01 minutes FLUOROSCOPY IMAGES: 9 Ka,r: 7.85 mGy FINDINGS: Single contrast barium swallow was performed. No esophageal mass or stricture was identified although mucosal detail was diminished given single contrast technique. This exam was technically difficult given difficulty positioning. Severe esophageal dysmotility was noted. Therefore, gastroesophageal reflux was difficult to assess for. No hiatal hernia was identified. IMPRESSION: 1. Severe esophageal dysmotility. 2. No esophageal mass or stricture identified although mucosal detail diminished given single contrast technique. ACT 112: Negative or not required by law. Electronically signed by: Johnnie Hdz M.D. 07/23/2024 1:48 PM Chest X-Ray 07/26/24 08:51 XR chest 1V portable CLINICAL HISTORY: hypoxia COMPARISON STUDY: 07/22/2024 FINDINGS: Stable mild cardiomegaly without pulmonary vascular congestion. There is interval mild blunting of the right costophrenic angle. Otherwise stable stranding opacity in the lung bases with partial obscuration of the diaphragm. No pneumothorax. IMPRESSION: Bilateral lung base consolidation with possible small pleural effusions, stable on the left and mildly increased on the right. ACT 112: Negative or not required by law. Electronically signed by: Nestor Cordova M.D. 07/26/2024 9:19 AM Medications Administered Current Inpatient Medications Acetaminophen (Acetaminophen 325 Mg Tab) 650 mg PO Q4H PRN PRN Reason: pain/fever Stop: 08/18/24 19:25 Last Admin: 07/29/24 21:00 Dose: 650 mg Al Hydrox/Mg Hydrox/Simethicone (Aluminum/Magnesium Susp 30 Ml Udc) 30 ml PO Q6H PRN PRN Reason: Dyspepsia Stop: 08/18/24 19:25 Albuterol (Albuterol Hfa 8 Gm Inhaler) 2 puffs INH Q6H PRN PRN Reason: Shortness Of Breath Or Wheezing Stop: 08/18/24 19:25 Albuterol (Albut/Ipratrop 3mg/0.5mg Neb 3 Ml Vial) 3 ml NEB TIDR PRN; Protocol PRN Reason: Shortness Of Breath Or Wheezing Stop: 08/19/24 12:59 Albuterol (Albut/Ipratrop 3mg/0.5mg Neb 3 Ml Vial) 3 ml NEB QIDR MILY; Protocol Stop: 08/25/24 10:59 Last Admin: 07/30/24 11:47 Dose: 3 ml Apixaban (Apixaban 2.5 Mg Tab) 2.5 mg PO BID [facility] Stop: 08/24/24 20:59 Last Admin: 07/30/24 08:45 Dose: 2.5 mg Budesonide (Budesonide 0.5 Mg/2 Ml Vial (Pulmicort)) 0.5 mg INH BID MILY Stop: 08/18/24 20:59 Last Admin: 07/30/24 07:40 Dose: 0.5 mg Clonazepam (Clonazepam 0.5 Mg Tab) 0.25 mg PO Q6H PRN PRN Reason: Anxiety Stop: 08/18/24 19:25 Last Admin: 07/22/24 20:48 Dose: 0.25 mg Formoterol Fumarate (Formoterol 20 Mcg/2 Ml Vial) 20 mcg INH BID MILY Stop: 08/18/24 20:59 Last Admin: 07/30/24 07:40 Dose: 20 mcg Furosemide (Furosemide 40 Mg Tab) 40 mg PO QAM [facility] Stop: 08/25/24 08:59 Last Admin: 07/27/24 08:18 Dose: 40 mg Guaifenesin/Dextromethorphan (Guaifenesin/Dextrom Syrup 100mg/10mg 5ml Udc) 5 ml PO Q6H PRN PRN Reason: Cough Stop: 08/19/24 01:38 Last Admin: 07/21/24 20:10 Dose: 5 ml Pantoprazole Sodium (Protonix) 40 mg in 10 mls @ 5 mls/min IV BID MILY Stop: 08/21/24 20:59 Last Admin: 07/30/24 08:44 Dose: 5 mls/min Ampicillin Sodium/Sulbactam Sodium (Unasyn) 3,000 mg in 100 mls @ 200 mls/hr IV Q12H MILY Stop: 08/03/24 16:59 Last Infusion: 07/30/24 06:04 Dose: Infused Levothyroxine Sodium (Levothyroxine Sodium 125 Mcg Tablet) 125 mcg PO DAILYBB [facility] Stop: 08/19/24 06:29 Last Admin: 07/30/24 05:26 Dose: 125 mcg Metoclopramide HCl (Metoclopramide Hcl Inj 5 Mg/Ml 2 Ml Vial) 10 mg IV Q6H PRN PRN Reason: Nausea Stop: 08/18/24 19:25 Mirtazapine (Mirtazapine Tab 15 Mg Tab) 30 mg PO HS MILY Stop: 08/18/24 20:59 Last Admin: 07/29/24 21:05 Dose: 30 mg Ondansetron HCl (Ondansetron Inj 2 Mg/Ml 2 Ml Vial) 4 mg IV Q6H PRN PRN Reason: Nausea Stop: 08/18/24 19:25 Last Admin: 07/28/24 17:32 Dose: 4 mg Polyethylene Glycol (Polyethylene (Miralax) 17 Gm Pack) 17 gm PO DAILY PRN PRN Reason: Constipation Stop: 08/18/24 19:25 Last Admin: 07/27/24 08:23 Dose: 17 gm Potassium Chloride (Potassium Chloride Crtab 20 Meq Tabcr) 40 meq PO QAM MILY Stop: 08/29/24 08:59 Last Admin: 07/30/24 08:59 Dose: 40 meq Rosuvastatin Calcium (Rosuvastatin Calcium 20 Mg Tab) 20 mg PO DAILY MILY Stop: 08/19/24 08:59 Last Admin: 07/30/24 08:45 Dose: 20 mg Sotalol HCl (Sotalol Hcl 80 Mg Tab) 120 mg PO BID MILY Stop: 08/18/24 20:59 Last Admin: 07/30/24 10:17 Dose: 120 mg Sucralfate (Sucralfate 1 Gm/10 Ml Udc) 1 gm PO QID MILY Stop: 08/23/24 16:59 Last Admin: 07/30/24 08:44 Dose: 1 gm PG Care Time/CCT Total # of Minutes Spent Total Time Spent with Patient: Total time spent is greater than 50% in coordination of care (as documented) at patient's floor/unit and/or counseling patient: Coding [place] [address] SUB INP/OBS CARE 07/13MIN Patient Type Established History Problem Focused Exam Problem Focused Medical Decision Making Low Complexity Diagnoses Palliative care by specialist Z51.5 Cachexia R64 Weakness generalized R53.1
--- NOTE | 2024-07-30 15:00 | Hospitalist Progress Note ---
Date of Service July 30, 2024 Assessment & Plan (1) Esophageal dysmotility: (2) Ulcerative esophagitis: (3) Early satiety: (4) Dysphagia: (5) Aspiration pneumonitis: (6) Severe malnutrition: (7) Unintentional weight loss: (8) Adult failure to thrive: (9) RSV (respiratory syncytial virus infection): (10) Chronic respiratory failure with hypoxia and hypercapnia: (11) Pressure ulcer of right buttock, stage 3: (12) Palliative care by specialist: Plan Patient with severe esophageal dysmotility putting her at risk for recurrent and chronic aspiration. Family and ongoing conversation with palliative care. Establish clear goals of care. Want to complete this course of antibiotics but no further laboratory studies, aggressive interventions or hospitalizations. Case management continue to pursue placement options, [facility] may not be available at this time due to bed availability. No additional laboratory studies per palliative care notes Continue other supportive care Patient is tolerating taking some pills. Will transition all medications to oral medications and utilizing suspensions when able in anticipation for discharge and ensuring patient will be able to tolerate medications at discharge. Discontinue statin, at this point not offering any benefit to her and only increasing in number of pills that she may need to take Extensive conversation with patient's son via phone. Supported him and his decisions and supported him with his conversations with palliative care encouraged him to continue to support his dad. Admission and Anticipated Discharge Date Admission Date: July 19, 2024 Subjective Patient pleasant this morning. Offers no complaints. Able to converse about breakfast and plans for [facility]. Physical Exam Physical Exam: Constitutional: Alert, nontoxic HEENT: Mucous membranes moist. Lungs: Decreased breath sounds CV: S1-S2, regular Abdomen: Soft, nontender, nondistended Extremities: No significant edema Neuro: No focal deficits, generally weak Psych: Cooperative, normal mood Results & Data Results & Data Vital Signs (Past 12 Hours) Vital Signs Temp Pulse Resp BP Pulse Ox O2 Del Method O2 Flow Rate 07/30/24 11:47 60 16 100 Nasal Cannula 2 07/30/24 09:30 Nasal Cannula 07/30/24 07:42 60 16 96 Nasal Cannula 2 07/30/24 07:20 36.6 C 18 106/57 L 98 Nasal Cannula 2 Diagnostic Findings Reviewed imaging, laboratory and diagnostic studies. Pertinent findings as below. WBCs 6.0 Hemoglobin 9.3 Carbon dioxide 42 Creatinine 1.54 (4) Dysphagia Dysphagia type: unspecified Qualified Code(s): R13.10 - Dysphagia, unspecified (9) RSV (respiratory syncytial virus infection) RSV infection type: unspecified Qualified Code(s): B33.8 - Other specified viral diseases
[2024-07-30] MEDS ORDERED: ONDANSETRON 4 MG OD TAB PO PRN (15:15)
[2024-07-30] MEDS: AMOXICILLIN/CLAVULANATE SUSP 250/62.5MG 5ML 75ML BTL PO SCH (17:23)
[2024-07-30] MEDS: FAMOTIDINE SUSP 20 MG/2.5 ML UDP PO SCH (21:16)
--- NOTE | 2024-07-31 13:21 | Hospitalist Progress Note ---
Date of Service July 31, 2024 Assessment & Plan (1) Early satiety: (2) Dysphagia: (3) Severe malnutrition: (4) Unintentional weight loss: (5) Adult failure to thrive: (6) Esophageal dysmotility: (7) Ulcerative esophagitis: (8) RSV (respiratory syncytial virus infection): (9) Chronic respiratory failure with hypoxia and hypercapnia: (10) Pressure ulcer of right buttock, stage 3: Plan Leela Villanueva is an 83y/o F with PMHx significant for chronic respiratory failu re with hypoxia on 2L NC, COPD, ILD, PAF anticoagulated on Eliquis, chronic HFpEF [EF = 60-64%; 05/2024], HLD, hypothyroidism, GERD, migraines, benign paroxysmal vertigo, CIELO and depression who presented to the ED on 07/19/24 with complaints of early satiety, unintentional weight loss and failure to thrive ISO dysphagia. Recent hospitalization at [facility] in May 2024 2/2 atrial fibrillation/flutter in which she underwent cardioversion and has since remained in sinus rhythm. During that time, there was also noted to be some issues with swallowing. Had video swallow was done which did not show any significant aspiration and speech recommended an easy to chew diet. From there, patient was discharged to [facility] (SNF). Patient had to be readmitted to a [facility] facility while at rehab 2/2 pneumonia. Again had complaints of difficulty swallowing/early satiety during that hospitalization. It was recommended she see a GI provider as an outpatient. She ended up being discharged home from that hospitalization. She was recently seen in the outpatient GI setting at [facility] [place] on 07/16/24 and had scheduled an outpatient EGD for 08/01/24. Family was concerned that the patient would not make it to that outpatient EGD due to persistent poor intake and therefore was brought to [facility] again for further evaluation regarding her early satiety/dysphagia. Patient has lost ~30lbs since May 2024 per family. Early Satiety & Dysphagia Ulcerative Esophagitis, Severe Malnutrition + Failure to Thrive ISO Severe Esophageal Dysmotility Underwent EGD with GI on 07/22. EGD revealed slight corkscrew appearance of esophagus however it was not dilated. There was no retained food in the esophagus itself. EGD did however note mucosal breaks above the GE junction consistent with superficial ulcerations - atypical for reflux. Biopsies performed which came back + for ulcerative esophagitis. Carafate QID added on. Barium swallow study on 07/23 with severe esophageal dysmotility. Suspect pill- induced esophagitis likely 2/2 po iron supplements ISO severe dysmotility. Holding iron supplementation for now. Remeron added on to increase appetite stimulation - may benefit from increase in dose to 45mg for stronger effectiveness. She is tolerating a pured diet. Aspiration precautions. Dietitian evaluated on 07/20 - Boost supplementation TID added on. Daily weights ordered. Aspiration pneumonia Patient noted to have increased O2 requirement + wheezing and coarse breath sounds CXR-Bilateral lung base consolidation with possible small pleural effusions Patient is at high risk for aspiration given severe esophageal dysmotility Transitioned to oral susp augmentin to complete 08/03 Hypernatremia resolved Acute RSV Infection - Noted on 07/22/24 Chronic Hypoxic Respiratory Failure ISO COPD and ILD on 2L NC & Chronic Hypercarbia Noted moist cough on exam on 07/22. Rhonchi heard in bilateral lung bases as well. recently developed URI symptoms and was in to see her over the weekend. Respiratory BioFire panel ordered and came back positive for RSV on 07/22. CXR on 07/22 revealed subsegmental atelectasis in the lung bases but no evidence of consolidation. Resp status at baseline Anemia Hgb 11.2 on admission -> 9.2 on 07/21 --> 10.2 -> 11.2 -> 10.7. Hgb was 12 back in May 2024 on discharge. Iron panel reviewed. Ferritin 502.6 likely 2/2 malnutrition, iron 37. Holding iron supplement as per above. No s/sx of bleeding. Suspect mostly 2/2 nutritional status given weight loss. No indication for transfusion at this time. TSH WNL this admission. No active bleeding on EGD. PAF Rhythm controlled on sotalol Initially Eliquis held due to EGD - no active bleeding noted, hgb stable. Eliquis resumed on 07/25 however at reduced dose 2.5mg BID due to age > 80 and weight < 60kg Chronic HFpEF CXR on 07/22 w/o evidence of vascular congestion Resting echo from 05/2024 reviewed --> EF = 60-64%, increased concentric LV wall thickness, normal LV wall motion, grade I DD, mildly enlarged LA, mild MR and mild TR lasix d/c, currently euvolemic no further lab draws therefore making this not an ideal drug unless clinically indicated Pressure Ulcer of R Buttock, Stage III WOCN consulted. R lower medial buttock pressure ulcer with 26-50% slough. Q2H repositioning, routine dressings per WOCN. Hypothyroidism TSH WNL, continue levothyroxine GERD Transitioned po PPI to IV PPI 2/2 ulcerations on EGD HLD Continue statin. DVT Prophylaxis On Eliquis PCP: Umair Gillis DO Disposition: Palliative met with family on 07/27, see note for full details. Code status changed to DNR. Plan for no further escalation of care and DC to [place] [facility] for SNF trial and moved to long-term care/ comfort. awaiting placement I spent a total of 40 minutes coordinating, documenting, and providing care for this patient excluding time spent in the performance of separately billed services. This included personally reviewing all current laboratories and imaging studies, medication reconciliation, outpatient chart review, and discussion with specialists. Admission and Anticipated Discharge Date Admission Date: July 19, 2024 Supervising Physician Co-Signing Physician Notes Pt seen and examined by me, care coordinated with Mary Langford PA-C, pls refer to her note above for further detail. Pt is currently sitting up in bed in [facility]. Says she was eating better, but still very little. Has no complaints. Says overall feels well. Lungs with decreased breath sounds at bases. CM involved in DC planning. I spent a total of 15 minutes coordinating, documenting, and providing care for this patient excluding time spend in the performance of separately billed services or time spent by another provider / QHP. Subjective Pt seen and evaluated in room 387-2. Pt reports an episode of thick mucus last night that she was unable to expectorate and this scared her. SHe states after 20 mins she finally was able to get it up. She feels her breathing is at baseline. She denies f/c/s, chest pain, n/v. SHe does not like her diet. Review of Systems Review of Systems: All systems reviewed & are unremarkable except as noted in HPI & below Physical Exam Physical Exam: Gen: elderly, F, chronically ill F, sitting at bedside chair, [place], A&O x2-3 basics HEENT: Normocephalic, atraumatic, conjunctivae moist, sclerae anicteric, mucous membranes dry Lung: Clear to Auscultation bilaterally, diminished at bases no wheezing today, no rales/rhonchi Heart: RRR Abdomen: Soft, NT, ND +BS x 4 Extremities: No edema Skin: Warm, no rash, negative turgor. Results & Data Results & Data Vital Signs (Past 12 Hours) Vital Signs Temp Pulse Resp BP Pulse Ox O2 Del Method O2 Flow Rate 07/31/24 11:06 64 18 99 Nasal Cannula 2 07/31/24 08:10 Nasal Cannula 2 07/31/24 07:17 18 99 Nasal Cannula 2 07/31/24 06:56 36.6 C 60 16 129/77 100 Nasal Cannula 3 Medications Administered Current Inpatient Medications Acetaminophen (Acetaminophen 325 Mg Tab) 650 mg PO Q4H PRN PRN Reason: pain/fever Stop: 08/18/24 19:25 Last Admin: 07/29/24 21:00 Dose: 650 mg Al Hydrox/Mg Hydrox/Simethicone (Aluminum/Magnesium Susp 30 Ml Udc) 30 ml PO Q6H PRN PRN Reason: Dyspepsia Stop: 08/18/24 19:25 Albuterol (Albuterol Hfa 8 Gm Inhaler) 2 puffs INH Q6H PRN PRN Reason: Shortness Of Breath Or Wheezing Stop: 08/18/24 19:25 Albuterol (Albut/Ipratrop 3mg/0.5mg Neb 3 Ml Vial) 3 ml NEB TIDR PRN; Protocol PRN Reason: Shortness Of Breath Or Wheezing Stop: 08/19/24 12:59 Albuterol (Albut/Ipratrop 3mg/0.5mg Neb 3 Ml Vial) 3 ml NEB QIDR MILY; Protocol Stop: 08/25/24 10:59 Last Admin: 07/31/24 11:06 Dose: 3 ml Amoxicillin/Clavulanate Potassium (Amoxicillin/Clavulanate Susp 250/62.5mg 5ml 75ml Btl) 500 mg PO BIDM [facility]; Protocol Stop: 08/04/24 16:59 Last Admin: 07/31/24 08:25 Dose: 500 mg Apixaban (Apixaban 2.5 Mg Tab) 2.5 mg PO BID [facility] Stop: 08/24/24 20:59 Last Admin: 07/31/24 08:15 Dose: 2.5 mg Budesonide (Budesonide 0.5 Mg/2 Ml Vial (Pulmicort)) 0.5 mg INH BID [facility] Stop: 08/18/24 20:59 Last Admin: 07/31/24 07:17 Dose: 0.5 mg Clonazepam (Clonazepam 0.5 Mg Tab) 0.25 mg PO Q6H PRN PRN Reason: Anxiety Stop: 08/18/24 19:25 Last Admin: 07/22/24 20:48 Dose: 0.25 mg Famotidine (Famotidine Susp 20 Mg/2.5 Ml Udp) 20 mg PO HS [facility] Stop: 08/29/24 20:59 Last Admin: 07/30/24 21:16 Dose: 20 mg Formoterol Fumarate (Formoterol 20 Mcg/2 Ml Vial) 20 mcg INH BID [facility] Stop: 08/18/24 20:59 Last Admin: 07/31/24 07:17 Dose: Not Given Guaifenesin/Dextromethorphan (Guaifenesin/Dextrom Syrup 100mg/10mg 5ml Udc) 5 ml PO Q6H PRN PRN Reason: Cough Stop: 08/19/24 01:38 Last Admin: 07/21/24 20:10 Dose: 5 ml Levothyroxine Sodium (Levothyroxine Sodium 125 Mcg Tablet) [facility] Stop: 08/19/24 06:29 Last Admin: 07/31/24 05:27 Dose: 125 mcg Mirtazapine (Mirtazapine Tab 15 Mg Tab) 30 mg PO [facility] Stop: 08/18/24 20:59 Last Admin: 07/30/24 21:15 Dose: 30 mg Ondansetron HCl (Ondansetron 4 Mg Od Tab) 4 mg PO Q4H PRN PRN Reason: Nausea And Vomiting Stop: 08/29/24 15:14 Polyethylene Glycol (Polyethylene (Miralax) 17 Gm Pack) 17 gm PO DAILY PRN PRN Reason: Constipation Stop: 08/18/24 19:25 Last Admin: 07/27/24 08:23 Dose: 17 gm Sotalol HCl (Sotalol Hcl 80 Mg Tab) 120 mg PO BID [facility] Stop: 08/18/24 20:59 Last Admin: 07/31/24 08:15 Dose: 120 mg Sucralfate (Sucralfate 1 Gm/10 Ml Udc) 1 gm PO QID MILY Stop: 08/23/24 16:59 Last Admin: 07/31/24 09:41 Dose: 1 gm (2) Dysphagia Dysphagia type: unspecified Qualified Code(s): R13.10 - Dysphagia, unspecified (8) RSV (respiratory syncytial virus infection) RSV infection type: unspecified Qualified Code(s): B33.8 - Other specified viral diseases
[2024-07-31] MEDS: guaiFENesin SUGAR FREE 200 MG/10 ML UDC PO SCH (20:56)
--- NOTE | 2024-08-01 09:28 | Hospitalist Progress Note ---
Date of Service August 01, 2024 Assessment & Plan (1) Early satiety: (2) Dysphagia: (3) Severe malnutrition: (4) Unintentional weight loss: (5) Adult failure to thrive: (6) Esophageal dysmotility: (7) Ulcerative esophagitis: (8) RSV (respiratory syncytial virus infection): (9) Chronic respiratory failure with hypoxia and hypercapnia: (10) Pressure ulcer of right buttock, stage 3: Plan Leela Villanueva is an 83y/o F with PMHx significant for chronic respiratory failu re with hypoxia on 2L NC, COPD, ILD, PAF anticoagulated on Eliquis, chronic HFpEF [EF = 60-64%; 05/2024], HLD, hypothyroidism, GERD, migraines, benign paroxysmal vertigo, CIELO and depression who presented to the ED on 07/19/24 with complaints of early satiety, unintentional weight loss and failure to thrive ISO dysphagia. Recent hospitalization at [facility] in May 2024 2/2 atrial fibrillation/flutter in which she underwent cardioversion and has since remained in sinus rhythm. During that time, there was also noted to be some issues with swallowing. Had video swallow was done which did not show any significant aspiration and speech recommended an easy to chew diet. From there, patient was discharged to [facility] (SNF). Patient had to be readmitted to a [facility] facility while at rehab 2/2 pneumonia. Again had complaints of difficulty swallowing/early satiety during that hospitalization. It was recommended she see a GI provider as an outpatient. She ended up being discharged home from that hospitalization. She was recently seen in the outpatient GI setting at [facility] on 07/16/24 and had scheduled an outpatient EGD for 08/01/24. Family was concerned that the patient would not make it to that outpatient EGD due to persistent poor intake and therefore was brought to [facility] again for further evaluation regarding her early satiety/dysphagia. Patient has lost ~30lbs since May 2024 per family. Early Satiety & Dysphagia Ulcerative Esophagitis, Severe Malnutrition + Failure to Thrive ISO Severe Esophageal Dysmotility Underwent EGD with GI on 07/22. EGD revealed slight corkscrew appearance of esophagus however it was not dilated. There was no retained food in the esophagus itself. EGD did however note mucosal breaks above the GE junction consistent with superficial ulcerations - atypical for reflux. Biopsies performed which came back + for ulcerative esophagitis. Carafate QID added on. Barium swallow study on 07/23 with severe esophageal dysmotility. Suspect pill- induced esophagitis likely 2/2 po iron supplements ISO severe dysmotility. Holding iron supplementation for now. Remeron added on to increase appetite stimulation - may benefit from increase in dose to 45mg for stronger effectiveness. She is tolerating a pured diet. Aspiration precautions. Dietitian evaluated on 07/20 - Boost supplementation TID added on. Daily weights ordered Aspiration pneumonia Patient noted to have increased O2 requirement + wheezing and coarse breath sounds CXR-Bilateral lung base consolidation with possible small pleural effusions Patient is at high risk for aspiration given severe esophageal dysmotility Transitioned to oral susp Augmentin to complete 08/03 Hypernatremia resolved Acute RSV Infection - Noted on 07/22/24 Chronic Hypoxic Respiratory Failure ISO COPD and ILD on 2L NC & Chronic Hypercarbia Noted moist cough on exam on 07/22. Rhonchi heard in bilateral lung bases as well. recently developed URI symptoms and was in to see her over the weekend. Respiratory BioFire panel ordered and came back positive for RSV on 07/22. CXR on 07/22 revealed subsegmental atelectasis in the lung bases but no evidence of consolidation. Resp status at baseline Anemia Hgb 11.2 on admission -> 9.2 on 07/21 --> 10.2 -> 11.2 -> 10.7. Hgb was 12 back in May 2024 on discharge. Iron panel reviewed. Ferritin 502.6 likely 2/2 malnutrition, iron 37. Holding iron supplement as per above. No s/sx of bleeding. Suspect mostly 2/2 nutritional status given weight loss. No indication for transfusion at this time. TSH WNL this admission. No active bleeding on EGD. PAF Rhythm controlled on sotalol Initially Eliquis held due to EGD - no active bleeding noted, hgb stable. Eliquis resumed on 07/25 however at reduced dose 2.5mg BID due to age > 80 and weight < 60kg Chronic HFpEF CXR on 07/22 w/o evidence of vascular congestion Resting echo from 05/2024 reviewed --> EF = 60-64%, increased concentric LV wall thickness, normal LV wall motion, grade I DD, mildly enlarged LA, mild MR and mild TR Lasix d/c, currently euvolemic No further lab draws therefore making this not an ideal drug unless clinically indicated Pressure Ulcer of R Buttock, Stage III WOCN consulted. R lower medial buttock pressure ulcer with 26-50% slough. Q2H repositioning, routine dressings per WOCN Hypothyroidism TSH WNL, continue levothyroxine GERD Transitioned PO PPI to IV PPI 2/2 ulcerations on EGD HLD Continue statin DVT Prophylaxis On Eliquis PCP: Umair Gillis, Disposition: Palliative met with family on 07/27, see note for full details. Code status changed to DNR. Plan for no further escalation of care and DC to [place] for SNF trial and moved to long-term care/ comfort. awaiting placement I spent a total of 40 minutes coordinating, documenting, and providing care for this patient excluding time spent in the performance of separately billed services or time spent by another provider/QHP. Admission and Anticipated Discharge Date Admission Date: July 19, 2024 Supervising Physician Co-Signing Physician Notes Pt seen by LINDSAY. Pt not seen by physician today. Subjective Sitting in bedside chair today. Denies any acute events overnight. Tolerating her pured diet although she does not like it. No bowel movement yet but pass ing flatus. No fever, chills, chest pain, shortness of breath, nausea, vomiting or abdominal pain. Review of Systems Review of Systems: At least ten systems reviewed and negative except as noted in the HPI. Physical Exam Physical Exam: Gen: elderly, F, chronically ill F, sitting at bedside chair, [place], A&O x2-3 basics HEENT: Normocephalic, atraumatic, conjunctivae moist, sclerae anicteric, mucous membranes moist Lung: Clear to Auscultation bilaterally, diminished at bases no wheezing today, no rales/rhonchi Heart: RRR Abdomen: Soft, NT, ND +BS x 4 Extremities: No edema Skin: Warm, no rash Results & Data Results & Data Vital Signs (Past 12 Hours) Vital Signs Temp Pulse Resp BP Pulse Ox O2 Del Method O2 Flow Rate 08/01/24 07:29 68 18 94 Nasal Cannula 3 08/01/24 07:26 36.4 C L 68 17 129/80 94 Nasal Cannula 3 Diagnostic Findings Chest X-Ray 07/19/24 13:32 XR chest 1V not portable CLINICAL HISTORY: pneumonia COMPARISON STUDY: 06/19/2024 FINDINGS: Stable mild cardiomegaly without pulmonary vascular congestion. There is mild stranding [place] in the lung bases, improved. No other consolidation or pleural effusion. No pneumothorax. IMPRESSION: Atelectasis or mild persistent pneumonia in the lung bases, improved. ACT 112: Negative or not required by law. Electronically signed by: Nestor Cordova M.D. 07/19/2024 3:04 PM Chest X-Ray 07/22/24 18:10 INDICATION: Cough. TECHNIQUE: Frontal radiograph of the chest. COMPARISON: Radiograph from 07/19/2024. FINDINGS: Mild cardiomegaly. Pulmonary vasculature appear within normal limits. Chronic appearing interstitial lung markings. Subsegmental atelectasis in the lung bases. No infiltrate, pleural effusion or pneumothorax. No acute osseous abnormality evident. IMPRESSION: No acute cardiopulmonary process. Electronically signed by Sedrick Chaudhari 07-22-2024 6:56 PM Barium Swallow X-Ray 07/23/24 13:00 SINGLE CONTRAST BARIUM SWALLOW CLINICAL HISTORY: abnormal appearance of the esophagus COMPARISON STUDY: Modified barium swallow June 17, 2024. FLUOROSCOPY TIME: 1.01 minutes FLUOROSCOPY IMAGES: 9 Ka,r: 7.85 mGy FINDINGS: Single contrast barium swallow was performed. No esophageal mass or stricture was identified although mucosal detail was diminished given single contrast technique. This exam was technically difficult given difficulty positioning. Severe esophageal dysmotility was noted. Therefore, gastroesophageal reflux was difficult to assess for. No hiatal hernia was identified. IMPRESSION: 1. Severe esophageal dysmotility. 2. No esophageal mass or stricture identified although mucosal detail diminished given single contrast technique. ACT 112: Negative or not required by law. Electronically signed by: Johnnie Hdz M.D. 07/23/2024 1:48 PM Chest X-Ray 07/26/24 08:51 XR chest 1V portable CLINICAL HISTORY: hypoxia COMPARISON STUDY: 07/22/2024 FINDINGS: Stable mild cardiomegaly without pulmonary vascular congestion. There is interval mild blunting of the right costophrenic angle. Otherwise stable stranding opacity in the lung bases with partial obscuration of the diaphragm. No pneumothorax. IMPRESSION: Bilateral lung base consolidation with possible small pleural effusions, stable on the left and mildly increased on the right. ACT 112: Negative or not required by law. Electronically signed by: Nestor Cordova M.D. 07/26/2024 9:19 AM (2) Dysphagia Dysphagia type: unspecified Qualified Code(s): R13.10 - Dysphagia, unspecified (8) RSV (respiratory syncytial virus infection) RSV infection type: unspecified Qualified Code(s): B33.8 - Other specified viral diseases
--- NOTE | 2024-08-02 01:37 | Palliative Care Progress Note ---
Date of Service August 01, 2024 Assessment & Plan (1) Palliative care by specialist: Plan: Assessed pt at bedside No family at bedside. pt oriented to person only awaiting SNF placement (2) Weakness generalized: Plan No visitors present today. Per previous ACP discussions with family, goals of care clearly established. Plan in place for SNF w/ rehab, no escalation, no labs, no return to [facility], no aggressive care or interventions, focus is QOL. Family is working with CM to identify SNF. Pt does require a proxy for medical decisions. Patient has exhibited current lack of decisional capacity based on the inability to convey understanding of personal PMHx, current medical condition, treatment options nor the risks / benefits of those options, and lack of ability to make decisions based on such knowledge. Hospital does not have written documentation of patient wishes concerning her chosen proxy for medical decisions. Per PA [id number], in absence of written documentation of patient wishes, pt's proxy for medical decisions would be her spouse Carson Villanueva. Thank you for including Palliative Care in the management of this patient. Please call with any questions or concerns regarding this consultation. Admission and Anticipated Discharge Date Admission Date: July 19, 2024 Review of Systems Review of Systems: Unobtainable due to cognitive status Physical Exam Constitutional: WD/WN, vitals as above + ill appearing Eyes: PERRL, conjunctivae normal, anicteric sclerae ENMT: external ear and nose normal, oropharynx normal Neck: trachea midline, no thyromegaly Respiratory: normal respiratory effort; no labored breathing Auscultation: + crackles and + rales Cardiovascular: RRR, no murmur, no edema Gastrointestinal (Abdomen): normal bowel sounds, soft, nontender, no hepatosplenomegaly Musculoskeletal: no cyanosis or clubbing, extremities motor strength 5/5 Skin: no rashes, warm and dry Neurologic: PERRL, EOMI, accommodation nl, no face palsy, no dysarthria Psychiatric: A+Ox3, euthymic affect Orientation: oriented to person Lymphatic: no cervical or axillary lymphadenopathy Results & Data Vital Signs (Past 12 Hours) Vital Signs Temp Pulse Resp BP Pulse Ox O2 Del Method O2 Flow Rate 08/01/24 20:46 36.8 C 66 16 113/70 Nasal Cannula 3 08/01/24 20:43 Nasal Cannula 2 08/01/24 19:51 62 18 98 Nasal Cannula 3 08/01/24 14:45 36.6 C 53 L 16 130/79 97 Nasal Cannula 3 Diagnostic Findings Barium Swallow X-Ray 07/23/24 13:00 SINGLE CONTRAST BARIUM SWALLOW CLINICAL HISTORY: abnormal appearance of the esophagus COMPARISON STUDY: Modified barium swallow June 17, 2024. FLUOROSCOPY TIME: 1.01 minutes FLUOROSCOPY IMAGES: 9 Ka,r: 7.85 mGy FINDINGS: Single contrast barium swallow was performed. No esophageal mass or stricture was identified although mucosal detail was diminished given single contrast technique. This exam was technically difficult given difficulty positioning. Severe esophageal dysmotility was noted. Therefore, gastroesophageal reflux was difficult to assess for. No hiatal hernia was identified. IMPRESSION: 1. Severe esophageal dysmotility. 2. No esophageal mass or stricture identified although mucosal detail diminished given single contrast technique. ACT 112: Negative or not required by law. Electronically signed by: Johnnie Hdz M.D. 07/23/2024 1:48 PM Chest X-Ray 07/26/24 08:51 XR chest 1V portable CLINICAL HISTORY: hypoxia COMPARISON STUDY: 07/22/2024 FINDINGS: Stable mild cardiomegaly without pulmonary vascular congestion. There is interval mild blunting of the right costophrenic angle. Otherwise stable stranding opacity in the lung bases with partial obscuration of the diaphragm. No pneumothorax. IMPRESSION: Bilateral lung base consolidation with possible small pleural effusions, stable on the left and mildly increased on the right. ACT 112: Negative or not required by law. Electronically signed by: Nestor Cordova M.D. 07/26/2024 9:19 AM Medications Administered Current Inpatient Medications Acetaminophen (Acetaminophen 325 Mg Tab) 650 mg PO Q4H PRN PRN Reason: pain/fever Stop: 08/18/24 19:25 Last Admin: 07/29/24 21:00 Dose: 650 mg Al Hydrox/Mg Hydrox/Simethicone (Aluminum/Magnesium Susp 30 Ml Udc) 30 ml PO Q6H PRN PRN Reason: Dyspepsia Stop: 08/18/24 19:25 Albuterol (Albuterol Hfa 8 Gm Inhaler) 2 puffs INH Q6H PRN PRN Reason: Shortness Of Breath Or Wheezing Stop: 08/18/24 19:25 Albuterol (Albut/Ipratrop 3mg/0.5mg Neb 3 Ml Vial) 3 ml NEB TIDR PRN; Protocol PRN Reason: Shortness Of Breath Or Wheezing Stop: 08/19/24 12:59 Amoxicillin/Clavulanate Potassium (Amoxicillin/Clavulanate Susp 250/62.5mg 5ml 75ml Btl) 500 mg PO BIDM [facility]; Protocol Stop: 08/04/24 16:59 Last Admin: 08/01/24 17:21 Dose: 500 mg Apixaban (Apixaban 2.5 Mg Tab) 2.5 mg PO BID [facility] Stop: 08/24/24 20:59 Last Admin: 08/01/24 20:45 Dose: 2.5 mg Budesonide (Budesonide 0.5 Mg/2 Ml Vial (Pulmicort)) 0.5 mg INH BID [facility] Stop: 08/18/24 20:59 Last Admin: 08/01/24 19:51 Dose: 0.5 mg Clonazepam (Clonazepam 0.5 Mg Tab) 0.25 mg PO Q6H PRN PRN Reason: Anxiety Stop: 08/18/24 19:25 Last Admin: 07/22/24 20:48 Dose: 0.25 mg Famotidine (Famotidine Susp 20 Mg/2.5 Ml Udp) 20 mg PO HS [facility] Stop: 08/29/24 20:59 Last Admin: 08/01/24 20:42 Dose: 20 mg Formoterol Fumarate (Formoterol 20 Mcg/2 Ml Vial) 20 mcg INH BID [facility] Stop: 08/18/24 20:59 Last Admin: 08/01/24 19:51 Dose: 20 mcg Guaifenesin (Guaifenesin Sugar Free 200 Mg/10 Ml Udc) 200 mg PO AMHS [facility] Stop: 08/30/24 20:59 Last Admin: 08/01/24 20:43 Dose: 200 mg Guaifenesin/Dextromethorphan (Guaifenesin/Dextrom Syrup 100mg/10mg 5ml Udc) 5 ml PO Q6H PRN PRN Reason: Cough Stop: 08/19/24 01:38 Last Admin: 08/01/24 08:29 Dose: 5 ml Levothyroxine Sodium (Levothyroxine Sodium 125 Mcg Tablet) 125 mcg PO DAILYBB [facility] Stop: 08/19/24 06:29 Last Admin: 08/01/24 06:15 Dose: 125 mcg Mirtazapine (Mirtazapine Tab 15 Mg Tab) 30 mg PO HS [facility]ILY Stop: 08/18/24 20:59 Last Admin: 08/01/24 20:44 Dose: 30 mg Ondansetron HCl (Ondansetron 4 Mg Od Tab) 4 mg PO Q4H PRN PRN Reason: Nausea And Vomiting Stop: 08/29/24 15:14 Polyethylene Glycol (Polyethylene (Miralax) 17 Gm Pack) 17 gm PO DAILY PRN PRN Reason: Constipation Stop: 08/18/24 19:25 Last Admin: 07/27/24 08:23 Dose: 17 gm Sotalol HCl (Sotalol Hcl 80 Mg Tab) 120 mg PO BID [facility]ILY Stop: 08/18/24 20:59 Last Admin: 08/01/24 20:43 Dose: 120 mg Sucralfate (Sucralfate 1 Gm/10 Ml Udc) 1 gm PO QID [facility]ILY Stop: 08/23/24 16:59 Last Admin: 08/01/24 20:44 Dose: 1 gm PG Care Time/CCT Total # of Minutes Spent Total Time Spent with Patient: Total time spent is greater than 50% in coordination of care (as documented) at patient's floor/unit and/or counseling patient: Coding [place] [address] SUB INP/OBS CARE 07/13MIN Patient Type Established History Problem Focused Exam Problem Focused Medical Decision Making Straight Forward Diagnoses Palliative care by specialist Z51.5 Weakness generalized R53.1
--- NOTE | 2024-08-02 16:02 | Hospitalist Progress Note ---
Date of Service August 02, 2024 Assessment & Plan (1) Early satiety: (2) Dysphagia: (3) Severe malnutrition: (4) Unintentional weight loss: (5) Adult failure to thrive: (6) Esophageal dysmotility: (7) Ulcerative esophagitis: (8) RSV (respiratory syncytial virus infection): (9) Chronic respiratory failure with hypoxia and hypercapnia: (10) Pressure ulcer of right buttock, stage 3: Plan Leela Villanueva is an 83y/o F with PMHx significant for chronic respiratory failu re with hypoxia on 2L NC, COPD, ILD, PAF anticoagulated on Eliquis, chronic HFpEF [EF = 60-64%; 05/2024], HLD, hypothyroidism, GERD, migraines, benign paroxysmal vertigo, CIELO and depression who presented to the ED on 07/19/24 with complaints of early satiety, unintentional weight loss and failure to thrive ISO dysphagia. Recent hospitalization at [facility] in May 2024 2/2 atrial fibrillation/flutter in which she underwent cardioversion and has since remained in sinus rhythm. During that time, there was also noted to be some issues with swallowing. Had video swallow was done which did not show any significant aspiration and speech recommended an easy to chew diet. From there, patient was discharged to [facility] (SNF). Patient had to be [facility] to a [facility] facility while at rehab 2/2 pneumonia. Again had complaints of difficulty swallowing/early satiety during that hospitalization. It was recommended she see a GI provider as an outpatient. She ended up being discharged home from that hospitalization. She was recently seen in the outpatient GI setting at [facility] on 07/16/24 and had scheduled an outpatient EGD for 08/01/24. Family was concerned that the patient would not make it to that outpatient EGD due to persistent poor intake and therefore was brought to [facility] again for further evaluation regarding her early satiety/dysphagia. Patient has lost ~30lbs since May 2024 per family. Early Satiety & Dysphagia Ulcerative Esophagitis, Severe Malnutrition + Failure to Thrive ISO Severe Esophageal Dysmotility Underwent EGD with GI on 07/22. EGD revealed slight corkscrew appearance of esophagus however it was not dilated. There was no retained food in the esophagus itself. EGD did however note mucosal breaks above the GE junction consistent with superficial ulcerations - atypical for reflux. Biopsies performed which came back + for ulcerative esophagitis. Carafate QID added on. Barium swallow study on 07/23 with severe esophageal dysmotility. Suspect pill- induced esophagitis likely 2/2 po iron supplements ISO severe dysmotility. Holding iron supplementation for now. Remeron added on to increase appetite stimulation - may benefit from increase in dose to 45mg for stronger effectiveness. She is tolerating a pured diet. Aspiration precautions. Dietitian evaluated on 07/20 - Boost supplementation TID added on. Daily weights ordered Aspiration pneumonia Patient noted to have increased O2 requirement + wheezing and coarse breath sounds CXR-Bilateral lung base consolidation with possible small pleural effusions Patient is at high risk for aspiration given severe esophageal dysmotility Transitioned to oral susp Augmentin to complete 08/03 Hypernatremia resolved Acute RSV Infection - Noted on 07/22/24 Chronic Hypoxic Respiratory Failure ISO COPD and ILD on 2L NC & Chronic Hypercarbia recently developed URI symptoms and was in to see her over the weekend. Respiratory BioFire panel ordered and came back positive for RSV on 07/22. CXR on 07/22 revealed subsegmental atelectasis in the lung bases but no evidence of consolidation Resp status at baseline Anemia Hgb 11.2 on admission -> 9.2 on 07/21 --> 10.2 -> 11.2 -> 10.7. Hgb was 12 back in May 2024 on discharge. Iron panel reviewed. Ferritin 502.6 likely 2/2 malnutrition, iron 37. Holding iron supplement as per above. No s/sx of bleeding. Suspect mostly 2/2 nutritional status given weight loss. No indication for transfusion at this time. TSH WNL this admission. No active bleeding on EGD. PAF Rhythm controlled on sotalol Initially Eliquis held due to EGD - no active bleeding noted, hgb stable. Eliquis resumed on 07/25 however at reduced dose 2.5mg BID due to age > 80 and weight < 60kg Chronic HFpEF CXR on 07/22 w/o evidence of vascular congestion Resting echo from 05/2024 reviewed --> EF = 60-64%, increased concentric LV wall thickness, normal LV wall motion, grade I DD, mildly enlarged LA, mild MR and mild TR Lasix d/c, currently euvolemic No further lab draws therefore making this not an ideal drug unless clinically indicated Pressure Ulcer of R Buttock, Stage III WOCN consulted. R lower medial buttock pressure ulcer with 26-50% slough. Q2H repositioning, routine dressings per WOCN Hypothyroidism TSH WNL, continue levothyroxine GERD Ulcerations noted on EGD, continue Protonix BID, Pepcid HLD Continue statin DVT Prophylaxis On Eliquis PCP: Umair Gillis DO Disposition: Palliative met with family on 07/27, see note for full details. Code status changed to DNR. Plan for no further escalation of care and DC to [place] for SNF trial and moved to long-term care/ comfort. Awaiting placement - Bed available at [facility], likely Monday. Care coordinated with family, KIMBERLY, I spent a total of 40 minutes coordinating, documenting, and providing care for this patient excluding time spent in the performance of separately billed services or time spent by another provider/QHP. Admission and Anticipated Discharge Date Admission Date: July 19, 2024 Supervising Physician Co-Signing Physician Notes Pt seen by LINDSAY. Pt not seen by physician today. Subjective Seen and examined in 387-2. No acute events overnight. Tolerating pureed diet without issue. No N/V, abd pain. No fever, chills, chest pain, shortness of breath, nausea, vomiting. Awaiting discharge. Review of Systems Review of Systems: At least ten systems reviewed and negative except as noted in the HPI. Physical Exam Physical Exam: Gen: elderly, F, chronically ill F, resting in bed, [place], A&O x2 HEENT: Normocephalic, atraumatic Lung: Clear to Auscultation bilaterally, diminished at bases Heart: RRR Abdomen: Soft, NT, ND +BS x 4 Extremities: No edema Skin: Warm, no rash Results & Data Results & Data Vital Signs (Past 12 Hours) Vital Signs Temp Pulse Resp BP Pulse Ox O2 Del Method O2 Flow Rate 08/02/24 14:59 36.9 C 83 16 128/73 96 Nasal Cannula 2 08/02/24 07:59 57 L 18 Nasal Cannula 2 08/02/24 07:39 36.6 C 57 L 17 117/75 100 Nasal Cannula, Nebulizer 7 08/02/24 07:20 Nasal Cannula 2 (2) Dysphagia Dysphagia type: unspecified Qualified Code(s): R13.10 - Dysphagia, unspecified (8) RSV (respiratory syncytial virus infection) RSV infection type: unspecified Qualified Code(s): B33.8 - Other specified viral diseases
[2024-08-02] MEDS: PANTOprazole 40 MG TAB PO SCH (22:11)
[2024-08-03 07:10] LABS: Hematocrit (blood only) 29.3 % (37.0-47.0); Hemoglobin 9.6 g/dl (12.0-16.0); Mean Corpuscular Hemoglobin 28.2 pg (25.0-34.0); Mean Corpuscular Hgb Conc 32.8 g/dL (32.0-36.0); Mean Corpuscular Volume 86.2 fL (80.0-100.0); Mean Platelet Volume 10.5 fL (9.4-12.4); Platelet Count 236 K/uL (130-400); RDW Coefficient of Variation 15.1 % (11.5-14.5); RDW Standard Deviation 47.1 fL (36.4-46.3); White Blood Count 6.44 K/ul (4.8-10.8)
--- NOTE | 2024-08-03 11:24 | Hospitalist Progress Note ---
Date of Service August 03, 2024 Assessment & Plan (1) Early satiety: (2) Dysphagia: (3) Severe malnutrition: (4) Unintentional weight loss: (5) Adult failure to thrive: (6) Esophageal dysmotility: (7) Ulcerative esophagitis: (8) RSV (respiratory syncytial virus infection): (9) Chronic respiratory failure with hypoxia and hypercapnia: (10) Pressure ulcer of right buttock, stage 3: Plan Leela Villanueva is an 83y/o F with PMHx significant for chronic respiratory failu re with hypoxia on 2L NC, COPD, ILD, PAF anticoagulated on Eliquis, chronic HFpEF [EF = 60-64%; 05/2024], HLD, hypothyroidism, GERD, migraines, benign paroxysmal vertigo, CIELO and depression who presented to the ED on 07/19/24 with complaints of early satiety, unintentional weight loss and failure to thrive ISO dysphagia. Recent hospitalization at [facility] in May 2024 2/2 atrial fibrillation/flutter in which she underwent cardioversion and has since remained in sinus rhythm. During that time, there was also noted to be some issues with swallowing. Had video swallow was done which did not show any significant aspiration and speech recommended an easy to chew diet. From there, patient was discharged to [facility] (SNF). Patient had to be readmitted to a [facility] facility while at rehab 2/2 pneumonia. Again had complaints of difficulty swallowing/early satiety during that hospitalization. It was recommended she see a GI provider as an outpatient. She ended up being discharged home from that hospitalization. She was recently seen in the outpatient GI setting at [facility] on 07/16/24 and had scheduled an outpatient EGD for 08/01/24. Family was concerned that the patient would not make it to that outpatient EGD due to persistent poor intake and therefore was brought to [facility] again for further evaluation regarding her early satiety/dysphagia. Patient has lost ~30lbs since May 2024 per family. Early Satiety & Dysphagia Ulcerative Esophagitis, Severe Malnutrition + Failure to Thrive ISO Severe Esophageal Dysmotility Underwent EGD with GI on 07/22. EGD revealed slight corkscrew appearance of esophagus however it was not dilated. There was no retained food in the esophagus itself. EGD did however note mucosal breaks above the GE junction consistent with superficial ulcerations - atypical for reflux. Biopsies performed which came back + for ulcerative esophagitis. Carafate QID added on. Barium swallow study on 07/23 with severe esophageal dysmotility. Suspect pill- induced esophagitis likely 2/2 po iron supplements ISO severe dysmotility. Holding iron supplementation for now. Remeron added on to increase appetite stimulation - may benefit from increase in dose to 45mg for stronger effectiveness. She is tolerating a pured diet. Aspiration precautions. Dietitian evaluated on 07/20 - Boost supplementation TID added on. Daily weights ordered Aspiration pneumonia Patient noted to have increased O2 requirement + wheezing and coarse breath sounds CXR-Bilateral lung base consolidation with possible small pleural effusions Patient is at high risk for aspiration given severe esophageal dysmotility Transitioned to oral susp Augmentin to complete today, 08/03 Hypernatremia resolved Acute RSV Infection - Noted on 07/22/24 Chronic Hypoxic Respiratory Failure ISO COPD and ILD on 2L NC & Chronic Hypercarbia recently developed URI symptoms and was in to see her over the weekend. Respiratory BioFire panel ordered and came back positive for RSV on 07/22. CXR on 07/22 revealed subsegmental atelectasis in the lung bases but no evidence of consolidation Continue incentive spirometry, flutter valve, PRN Mucinex Resp status at baseline Anemia Hgb 11.2 on admission -> 9.2 on 07/21 --> 10.2 -> 11.2 -> 10.7-> 9.3 -> 9.6. Hgb was 12 back in May 2024 on discharge. Iron panel reviewed. Ferritin 502.6 likely 2/2 malnutrition, iron 37. Holding iron supplement as per above. No s/sx of bleeding. Suspect mostly 2/2 nutritional status given weight loss. No indication for transfusion at this time. TSH WNL this admission. No active bleeding on EGD. PAF Rhythm controlled on sotalol Initially Eliquis held due to EGD - no active bleeding noted, hgb stable. Eliquis resumed on 07/25 however at reduced dose 2.5mg BID due to age > 80 and weight < 60kg Chronic HFpEF CXR on 07/22 w/o evidence of vascular congestion Resting echo from 05/2024 reviewed --> EF = 60-64%, increased concentric LV wall thickness, normal LV wall motion, grade I DD, mildly enlarged LA, mild MR and mild TR Lasix d/c, currently euvolemic No further lab draws therefore making this not an ideal drug unless clinically indicated Pressure Ulcer of R Buttock, Stage III WOCN consulted. R lower medial buttock pressure ulcer with 26-50% slough. Q2H repositioning, routine dressings per WOCN Hypothyroidism TSH WNL, continue levothyroxine GERD Ulcerations noted on EGD, continue Protonix BID, Pepcid HLD Continue statin DVT Prophylaxis On Eliquis PCP: Umair Gillis, Disposition: Palliative met with family on 07/27, see note for full details. Code status changed to DNR. Plan for no further escalation of care and DC to [place] for SNF trial and moved to long-term care/ comfort. Awaiting placement - Bed available at [facility], likely Monday. Care coordinated with family, CM, I spent a total of 35 minutes coordinating, documenting, and providing care for this patient excluding time spent in the performance of separately billed services or time spent by another provider/QHP. Admission and Anticipated Discharge Date Admission Date: July 19, 2024 Supervising Physician Co-Signing Physician Notes Pt seen by LINDSAY. Pt not seen by physician today. Subjective Seen and examined in 387-2. No acute events overnight. Tolerating pureed diet without issue. No N/V, abd pain. Intermittent cough. No fever, chills, chest pain, shortness of breath, nausea, vomiting. Awaiting discharge. Review of Systems Review of Systems: At least ten systems reviewed and negative except as noted in the HPI. Physical Exam Physical Exam: Gen: elderly, F, chronically ill F, resting in bed, [place], A&O x2 HEENT: Normocephalic, atraumatic Lung: Clear to Auscultation bilaterally, diminished at bases Heart: RRR Abdomen: Soft, NT, ND +BS x 4 Extremities: No edema Skin: Warm, no rash Results & Data Results & Data Vital Signs (Past 12 Hours) Vital Signs Temp Pulse Resp BP Pulse Ox O2 Del Method O2 Flow Rate 08/03/24 08:48 64 18 97 Nasal Cannula 2 08/03/24 08:03 36.5 C 59 L 18 110/70 97 Nasal Cannula 1 08/03/24 07:20 Nasal Cannula 2 Laboratory Results Short CBC 08/03/24 Range/Units 06:41 WBC 6.44 (4.8-10.8) K/ul Hgb 9.6 L (12.0-16.0) g/dl Hct 29.3 L (37.0-47.0) % Plt Count 236 (130-400) K/uL Diagnostic Findings Chest X-Ray 07/19/24 13:32 XR chest 1V not portable CLINICAL HISTORY: pneumonia COMPARISON STUDY: 06/19/2024 FINDINGS: Stable mild cardiomegaly without pulmonary vascular congestion. There is mild stranding [place] in the lung bases, improved. No other consolidation or pleural effusion. No pneumothorax. IMPRESSION: Atelectasis or mild persistent pneumonia in the lung bases, improved. ACT 112: Negative or not required by law. Electronically signed by: Nestor Cordova M.D. 07/19/2024 3:04 PM Chest X-Ray 07/22/24 18:10 INDICATION: Cough. TECHNIQUE: Frontal radiograph of the chest. COMPARISON: Radiograph from 07/19/2024. FINDINGS: Mild cardiomegaly. Pulmonary vasculature appear within normal limits. Chronic appearing interstitial lung markings. Subsegmental atelectasis in the lung bases. No infiltrate, pleural effusion or pneumothorax. No acute osseous abnormality evident. IMPRESSION: No acute cardiopulmonary process. Electronically signed by Sedrick Chaudhari 07-22-2024 6:56 PM Barium Swallow X-Ray 07/23/24 13:00 SINGLE CONTRAST BARIUM SWALLOW CLINICAL HISTORY: abnormal appearance of the esophagus COMPARISON STUDY: Modified barium swallow June 17, 2024. FLUOROSCOPY TIME: 1.01 minutes FLUOROSCOPY IMAGES: 9 Ka,r: 7.85 mGy FINDINGS: Single contrast barium swallow was performed. No esophageal mass or stricture was identified although mucosal detail was diminished given single contrast technique. This exam was technically difficult given difficulty positioning. Severe esophageal dysmotility was noted. Therefore, gastroesophageal reflux was difficult to assess for. No hiatal hernia was identified. IMPRESSION: 1. Severe esophageal dysmotility. 2. No esophageal mass or stricture identified although mucosal detail diminished given single contrast technique. ACT 112: Negative or not required by law. Electronically signed by: Johnnie Hdz M.D. 07/23/2024 1:48 PM Chest X-Ray 07/26/24 08:51 XR chest 1V portable CLINICAL HISTORY: hypoxia COMPARISON STUDY: 07/22/2024 FINDINGS: Stable mild cardiomegaly without pulmonary vascular congestion. There is interval mild blunting of the right costophrenic angle. Otherwise stable stranding opacity in the lung bases with partial obscuration of the diaphragm. No pneumothorax. IMPRESSION: Bilateral lung base consolidation with possible small pleural effusions, stable on the left and mildly increased on the right. ACT 112: Negative or not required by law. Electronically signed by: Nestor Cordova M.D. 07/26/2024 9:19 AM (2) Dysphagia Dysphagia type: unspecified Qualified Code(s): R13.10 - Dysphagia, unspecifie d (8) RSV (respiratory syncytial virus infection) RSV infection type: unspecified Qualified Code(s): B33.8 - Other specified viral diseases
[2024-08-03] MEDS: guaiFENesin 600 MG TABCR PO SCH (12:20)
--- NOTE | 2024-08-04 12:27 | Hospitalist Progress Note ---
Date of Service August 04, 2024 Assessment & Plan (1) Early satiety: (2) Dysphagia: (3) Severe malnutrition: (4) Unintentional weight loss: (5) Adult failure to thrive: (6) Esophageal dysmotility: (7) Ulcerative esophagitis: (8) RSV (respiratory syncytial virus infection): (9) Chronic respiratory failure with hypoxia and hypercapnia: (10) Pressure ulcer of right buttock, stage 3: Plan Leela Villanueva is an 83y/o F with PMHx significant for chronic respiratory failu re with hypoxia on 2L NC, COPD, ILD, PAF anticoagulated on Eliquis, chronic HFpEF [EF = 60-64%; 05/2024], HLD, hypothyroidism, GERD, migraines, benign paroxysmal vertigo, CIELO and depression who presented to the ED on 07/19/24 with complaints of early satiety, unintentional weight loss and failure to thrive ISO dysphagia. Recent hospitalization at [facility] in May 2024 2/2 atrial fibrillation/flutter in which she underwent cardioversion and has since remained in sinus rhythm. During that time, there was also noted to be some issues with swallowing. Had video swallow was done which did not show any significant aspiration and speech recommended an easy to chew diet. From there, patient was discharged to [facility] (SNF). Patient had to be readmitted to a [facility] facility while at rehab 2/2 pneumonia. Again had complaints of difficulty swallowing/early satiety during that hospitalization. It was recommended she see a GI provider as an outpatient. She ended up being discharged home from that hospitalization. She was recently seen in the outpatient GI setting at [facility] on 07/16/24 and had scheduled an outpatient EGD for 08/01/24. Family was concerned that the patient would not make it to that outpatient EGD due to persistent poor intake and therefore was brought to [facility] again for further evaluation regarding her early satiety/dysphagia. Patient has lost ~30lbs since May 2024 per family. Early Satiety & Dysphagia Ulcerative Esophagitis, Severe Malnutrition + Failure to Thrive ISO Severe Esophageal Dysmotility Underwent EGD with GI on 07/22. EGD revealed slight corkscrew appearance of esophagus however it was not dilated. There was no retained food in the esophagus itself. EGD did however note mucosal breaks above the GE junction consistent with superficial ulcerations - atypical for reflux. Biopsies performed which came back + for ulcerative esophagitis. Carafate QID added on Barium swallow study on 07/23 with severe esophageal dysmotility. Suspect pill- induced esophagitis likely 2/2 po iron supplements ISO severe dysmotility. Holding iron supplementation for now. Remeron added on to increase appetite stimulation She is tolerating a pured diet. Aspiration precautions. Dietitian evaluated on 07/20 - Boost supplementation TID added on. Daily weights ordered Aspiration pneumonia Patient noted to have increased O2 requirement + wheezing and coarse breath sounds CXR-Bilateral lung base consolidation with possible small pleural effusions Patient is at high risk for aspiration given severe esophageal dysmotility Transitioned to oral susp Augmentin to completed on 08/03 Hypernatremia resolved Acute RSV Infection - Noted on 07/22/24 Chronic Hypoxic Respiratory Failure ISO COPD and ILD on 2L NC & Chronic Hypercarbia recently developed URI symptoms and was in to see her over the weekend. Respiratory BioFire panel ordered and came back positive for RSV on 07/22. CXR on 07/22 revealed subsegmental atelectasis in the lung bases but no evidence of consolidation Continue incentive spirometry, flutter valve, PRN Mucinex Resp status at baseline Anemia Hgb 11.2 on admission -> 9.2 on 07/21 --> 10.2 -> 11.2 -> 10.7-> 9.3 -> 9.6. Hgb was 12 back in May 2024 on discharge. Iron panel reviewed. Ferritin 502.6 likely 2/2 malnutrition, iron 37. Holding iron supplement as per above. No s/sx of bleeding. Suspect mostly 2/2 nutritional status given weight loss. No indication for transfusion at this time. TSH WNL this admission. No active bleeding on EGD. PAF Rhythm controlled on sotalol Initially Eliquis held due to EGD - no active bleeding noted, hgb stable. Eliquis resumed on 07/25 however at reduced dose 2.5mg BID due to age > 80 and weight < 60kg Chronic HFpEF CXR on 07/22 w/o evidence of vascular congestion Resting echo from 05/2024 reviewed --> EF = 60-64%, increased concentric LV wall thickness, normal LV wall motion, grade I DD, mildly enlarged LA, mild MR and mild TR Lasix d/c, currently euvolemic No further lab draws therefore making this not an ideal drug unless clinically indicated Pressure Ulcer of R Buttock, Stage III WOCN consulted. R lower medial buttock pressure ulcer with 26-50% slough. Q2H repositioning, routine dressings per WOCN Hypothyroidism TSH WNL, continue levothyroxine GERD Ulcerations noted on EGD, continue Protonix BID, Pepcid HLD Continue statin DVT Prophylaxis On Eliquis PCP: Umair Gillis DO Disposition: Palliative met with family on 07/27, see note for full details. Code status changed to DNR. Plan for no further escalation of care and DC for SNF trial and moved to long-term care/ comfort. Awaiting placement - Bed available at [facility], likely Monday. Care coordinated with family, CM. I spent a total of 35 minutes coordinating, documenting, and providing care for this patient excluding time spent in the performance of separately billed services or time spent by another provider/QHP. Admission and Anticipated Discharge Date Admission Date: July 19, 2024 Supervising Physician Co-Signing Physician Notes Pt seen and examined by me, care coordinated with Mary Langford PA-C, pls refer to her note above for further detail. Pt is currently sitting up in bed in NAD. Says overall feels well. Lungs with decreased breath sounds at bases, and posit. rhonchi. CM involved in DC planning, likely tmrw. I spent a total of 10 minutes coordinating, documenting, and providing care for this patient excluding time spend in the performance of separately billed services or time spent by another provider / QHP. Subjective Seen and examined in 387-2. No acute events overnight. Son and [id number] at bedside, remarking on how much better she looks. Tolerating pureed diet without issue. At mentation baseline. No N/V, abd pain. Intermittent cough has improved. No fever, chills, chest pain, shortness of breath, nausea, vomiting. Awaiting discharge. Review of Systems Review of Systems: At least ten systems reviewed and negative except as noted in the HPI. Physical Exam Physical Exam: Gen: elderly, F, chronically ill F, resting in bed, PAIUTE-SHOSHONE, A&O x2 HEENT: Normocephalic, atraumatic Lung: Clear to Auscultation bilaterally, diminished at bases Heart: RRR Abdomen: Soft, NT, ND +BS x 4 Extremities: No edema Skin: Warm, no rash Results & Data Results & Data Vital Signs (Past 12 Hours) Vital Signs Temp Pulse Pulse Resp BP Pulse Ox O2 Del Method 08/04/24 08:26 37.1 C 61 61 18 121/73 97 Nasal Cannula 08/04/24 07:21 61 18 93 Nasal Cannula O2 Flow Rate 08/04/24 08:26 2 08/04/24 07:21 2 Diagnostic Findings Chest X-Ray 07/19/24 13:32 XR chest 1V not portable CLINICAL HISTORY: pneumonia COMPARISON STUDY: 06/19/2024 FINDINGS: Stable mild cardiomegaly without pulmonary vascular congestion. There is mild stranding [place] in the lung bases, improved. No other consolidation or pleural effusion. No pneumothorax. IMPRESSION: Atelectasis or mild persistent pneumonia in the lung bases, improved. ACT 112: Negative or not required by law. Electronically signed by: Nestor Cordova M.D. 07/19/2024 3:04 PM Chest X-Ray 07/22/24 18:10 INDICATION: Cough. TECHNIQUE: Frontal radiograph of the chest. COMPARISON: Radiograph from 07/19/2024. FINDINGS: Mild cardiomegaly. Pulmonary vasculature appear within normal limits. Chronic appearing interstitial lung markings. Subsegmental atelectasis in the lung bases. No infiltrate, pleural effusion or pneumothorax. No acute osseous abnormality evident. IMPRESSION: No acute cardiopulmonary process. Electronically signed by Sedrick Chaudhari 07-22-2024 6:56 PM Barium Swallow X-Ray 07/23/24 13:00 SINGLE CONTRAST BARIUM SWALLOW CLINICAL HISTORY: abnormal appearance of the esophagus COMPARISON STUDY: Modified barium swallow June 17, 2024. FLUOROSCOPY TIME: 1.01 minutes FLUOROSCOPY IMAGES: 9 Ka,r: 7.85 mGy FINDINGS: Single contrast barium swallow was performed. No esophageal mass or stricture was identified although mucosal detail was diminished given single contrast technique. This exam was technically difficult given difficulty positioning. Severe esophageal dysmotility was noted. Therefore, gastroesophageal reflux was difficult to assess for. No hiatal hernia was identified. IMPRESSION: 1. Severe esophageal dysmotility. 2. No esophageal mass or stricture identified although mucosal detail diminished given single contrast technique. ACT 112: Negative or not required by law. Electronically signed by: Johnnie Hdz M.D. 07/23/2024 1:48 PM Chest X-Ray 07/26/24 08:51 XR chest 1V portable CLINICAL HISTORY: hypoxia COMPARISON STUDY: 07/22/2024 FINDINGS: Stable mild cardiomegaly without pulmonary vascular congestion. There is interval mild blunting of the right costophrenic angle. Otherwise stable stranding opacity in the lung bases with partial obscuration of the diaphragm. No pneumothorax. IMPRESSION: Bilateral lung base consolidation with possible small pleural effusions, stable on the left and mildly increased on the right. ACT 112: Negative or not required by law. Electronically signed by: Nestor Cordova M.D. 07/26/2024 9:19 AM (2) Dysphagia Dysphagia type: unspecified Qualified Code(s): R13.10 - Dysphagia, unspecified (8) RSV (respiratory syncytial virus infection) RSV infection type: unspecified Qualified Code(s): B33.8 - Other specified viral diseases
--- NOTE | 2024-08-05 13:57 | Discharge Summary ---
Discharge Summary Date of Service August 05, 2024 Principal Dx & Hospital Course #1 = Principal Diagnosis (1) Early satiety: (2) Dysphagia: (3) Severe malnutrition: (4) Unintentional weight loss: (5) Adult failure to thrive: (6) Esophageal dysmotility: (7) Ulcerative esophagitis: (8) RSV (respiratory syncytial virus infection): (9) Chronic respiratory failure with hypoxia and hypercapnia: (10) Pressure ulcer of right buttock, stage 3: Elia Villanueva is an 84y/o F with PMHx significant for chronic respiratory failure with hypoxia on 2L NC, COPD, ILD, PAF anticoagulated on Eliquis, chronic HFpEF [EF = 60-64%; 05/2024], HLD, hypothyroidism, GERD, migraines, benign paroxysmal vertigo, CIELO and depression who presented to the ED on 07/19/24 with complaints of early satiety, unintentional weight loss and failure to thrive ISO dysphagia. Recent hospitalization at [facility] in May 2024 2/2 atrial fibrillation/flutter in which she underwent cardioversion and has since remained in sinus rhythm. During that time, there was also noted to be some issues with swallowing. Had video swallow was done which did not show any significant aspiration and speech recommended an easy to chew diet. From there, patient was discharged to [facility] (SNF). Patient had to be readmitted to a [facility] facility while at rehab 2/2 pneumonia. Again had complaints of difficulty swallowing/early satiety during that hospitalization. It was recommended she see a GI provider as an outpatient. She ended up being discharged home from that hospitalization. She was recently seen in the outpatient GI setting at [facility] on 07/16/24 and had scheduled an outpatient EGD for 08/01/24. Family was concerned that the patient would not make it to that outpatient EGD due to persistent poor intake and therefore was brought to [facility] again for further evaluation regarding her early satiety/dysphagia. Patient has lost ~30lbs since May 2024 per family. Early Satiety & Dysphagia Ulcerative Esophagitis, Severe Malnutrition + Failure to Thrive ISO Severe Esophageal Dysmotility Underwent EGD with GI on 07/22. EGD revealed slight corkscrew appearance of esophagus however it was not dilated. There was no retained food in the esophagus itself. EGD did however note mucosal breaks above the GE junction consistent with superficial ulcerations - atypical for reflux. Biopsies performed which came back + for ulcerative esophagitis. Carafate QID added on. Barium swallow study on 07/23 with severe esophageal dysmotility. Suspect pill- induced esophagitis likely 2/2 po iron supplements ISO severe dysmotility. Holding iron supplementation for now. Remeron added on to increase appetite stimulation - may benefit from increase in dose to 45mg for stronger effectiveness. She is tolerating a pured diet. Aspiration precautions. Dietitian evaluated on 07/20 - Boost supplementation TID added on. Daily weights ordered On PPI BID, Pecid, Carafate Aspiration pneumonia Patient noted to have increased O2 requirement + wheezing and coarse breath sounds CXR-Bilateral lung base consolidation with possible small pleural effusions Patient is at high risk for aspiration given severe esophageal dysmotility Transitioned to oral susp Augmentin to complete today, 08/03 Acute RSV Infection - Noted on 07/22/24 Chronic Hypoxic Respiratory Failure ISO COPD and ILD on 2L NC & Chronic Hypercarbia resolved, resp status at baseline Anemia Hgb 11.2 on admission -> 9.2 on 07/21 --> 10.2 -> 11.2 -> 10.7-> 9.3 -> 9.6. Hgb was 12 back in May 2024 on discharge. Iron panel reviewed. Ferritin 502.6 likely 2/2 malnutrition, iron 37. Holding iron supplement as per above. No s/sx of bleeding. Suspect mostly 2/2 nutritional status given weight loss. No indication for transfusion at this time. TSH WNL this admission. No active bleeding on EGD. PAF Rhythm controlled on sotalol Initially Eliquis held due to EGD - no active bleeding noted, hgb stable. Eliquis resumed on 07/25 however at reduced dose 2.5mg BID due to age > 80 and weight < 60kg Chronic HFpEF CXR on 07/22 w/o evidence of vascular congestion Resting echo from 05/2024 reviewed --> EF = 60-64%, increased concentric LV wall thickness, normal LV wall motion, grade I DD, mildly enlarged LA, mild MR and mild TR Lasix d/c, currently euvolemic No further lab draws therefore making this not an ideal drug unless clinically indicated euvolemic Pressure Ulcer of R Buttock, Stage III WOCN consulted. R lower medial buttock pressure ulcer with 26-50% slough. Q2H repositioning Per wound care clean right lower buttock with saline, cover with aquacel AG and secure with optifoam, change every 3 days or sooner if soiled recommend follow up with [facility] as outpt Hypothyroidism TSH WNL, continue levothyroxine GERD Ulcerations noted on EGD, continue Protonix BID, Pepcid, carafate HLD Continue statin DVT Prophylaxis On Eliquis PCP: Umair Gillis DO Disposition: Palliative met with family on 07/27, see note for full details. Code status changed to DNR. Plan for no further escalation of care and DC to [facility] for SNF trial and moved to long-term care/ comfort. D/C To [facility] today I spent a total of 40 minutes coordinating, documenting, and providing care for this patient excluding time spent in the performance of separately billed services or time spent by another provider/QHP. Notes For Next Care Provider Please ensure pt has a follow up with [facility] for R buttock wound. Aspiration precautions and pureed diet. Chronic COPD on 2L of O2 resp status currently at baseline. Medication Changes From Visit Continue Carafate QID for ulcerative esophagitis. Continue to hold iron supplement. Continue Protonix BID and Pepcid HS for GERD. Continue Boost supplementation TID Eliquis dose reduced to 2.5mg BID based on age and weight Mucinex BID as needed for congestion Admission HPI Per Admitting Provider Patient is an 83-year-old female who over the past 4 to 5 weeks has been in the hospital or rehab center. Patient was admitted at [facility] in late May for atrial fibrillation/flutter. She underwent cardioversion and has remained in sinus rhythm. During that time there was also noted some issues with swallowing. She had a video swallow which did not show any significant aspiration. Speech recommended easy to chew diet. From the hospital she went to a rehab facility. She was at the rehab facility and was then sent to [facility] for hospitalization for pneumonia. Again was having issues with swallowing or early satiety and just generalized decreased appetite. It was recommend that she see GI as an outpatient. From [facility] she was discharged to home. Family reports that she has been home really just about a week. They report that the patient complains of early satiety and feeling full all the time. She basically takes her pills in applesauce and pudding, dri nks some water throughout the day but really does not eat a whole lot more than that. Daughter in law reports that last night she ate some [place] fries and a half a hamburger and that was the most she is seeing her eat in many weeks. Daughter reports that the patient has lost approximately 30 pounds since the beginning of May. The patient was just seen by outpatient JAMES Santoyo on 07/16/2024. They had recommended continuing Remeron for appetite stimulation and have planned outpatient EGD on August 01, 2024. They brought the patient to the ER today because they were concerned that she was dehydrated and not eating enough and was worried that she would not make it to the EGD on the . Patient denies any vomiting. Has some abdominal crampiness in addition to the early satiety. She states that she moves her bowels regularly and has not seen any blood in her stool. No fever or chills. No cough or cold symptoms. She has chronic interstitial lung disease and is on chronic oxygen. Has been no significant change in her symptoms related to this. Due to poor appetite she seems to getting progressively weaker and becoming more difficult to care for her at home also attributing to the ED visit today. Admission Exam Per Admitting Provider Constitutional: Alert, nontoxic, frail HEENT: Mucous membranes dry sclera clear Neck: Soft, no adenopathy Lungs: Decreased breath sounds, prolonged expiratory phase, chronic crackles throughout CV: S1-S2, regular Abdomen: Soft, slight distention, nontender, no guarding, no rigidity, no masses Extremities: Chronic hard lower extremity edema, with chronic compression stockings Musculoskeletal: No significant joint tenderness Neuro: No focal deficits, generally weak, hard of hearing Psych: Cooperative, normal mood Discharge Exam Gen: elderly, F, chronically ill F, sitting in bed, ALGAACIQ, A&O x2-3 basics HEENT: Normocephalic, atraumatic, conjunctivae moist, sclerae anicteric, mucous membranes dry Lung: Clear to Auscultation bilaterally, diminished at bases no wheezing today, no rales/rhonchi Heart: RRR Abdomen: Soft, NT, ND +BS x 4 Extremities: No edema Skin: Warm, no rash, negative turgor. Updated Medication List Medication Instructions Recorded Confirmed Type ferrous sulfate 325 mg (65 mg 325 mg PO QAM 30 days #30 tabs 06/20/24 07/19/24 Rx iron) tablet,delayed release famotidine 40 mg/5 mL (8 mg/mL) 20 mg (2.5 mL) PO HS #30 mL 08/04/24 Rx oral suspension furosemide 40 mg tablet 40 mg PO DAILY PRN lower extremity 08/04/24 07/19/24 Rx edema #0 tabs guaifenesin 600 mg tablet, 600 mg PO Q12 PRN nasal congestion 08/04/24 Rx extended release 12 hr (Mucinex) #40 tabs mirtazapine 15 mg tablet 30 mg (2 x 15 mg) PO HS #30 tabs 08/04/24 Rx pantoprazole 40 mg tablet,delayed 40 mg PO BID #60 tabs 08/04/24 Rx release sucralfate 100 mg/mL oral 1 g (10 mL) PO QID #400 mL 08/04/24 Rx suspension albuterol sulfate 90 mcg/actuation 2 puff inhalation Q6H PRN 08/05/24 Rx aerosol inhaler (Ventolin HFA) Shortness Of Breath Or Wheezing #8.5 grams amitriptyline 25 mg tablet 25 mg PO HS #30 tabs 08/05/24 Rx apixaban 2.5 mg tablet (Eliquis) 2.5 mg PO BID #60 tabs 08/05/24 Rx arformoterol 15 mcg/2 mL solution 15 mcg (2 mL) inhalation BID #60 mL 08/05/24 Rx for nebulization budesonide 0.5 mg/2 mL suspension 0.5 mg (2 mL) inhalation BID #60 mL 08/05/24 Rx for nebulization clonazepam 0.5 mg tablet 0.25 mg (1/2 x 0.5 mg) PO Q6H PRN 08/05/24 Rx Anxiety #30 tabs levothyroxine 125 mcg tablet 125 mcg PO DAILY #30 tabs 08/05/24 Rx magnesium oxide 400 mg (241.3 mg 400 mg PO QAM 30 days #30 tabs 08/05/24 Rx magnesium) tablet rosuvastatin 20 mg tablet 20 mg PO DAILY 30 days #30 tabs 08/05/24 Rx sotalol 80 mg tablet 120 mg (1.5 x 80 mg) PO BID 30 08/05/24 Rx days #90 tabs Hospital Stay Data Consultations 07/19/24 16:26 ED Decision to Admit Stat 07/19/24 19:26 Consult Gastroenterology Routine 07/24/24 14:30 Consult Palliative Care Routine Procedures Performed Operation Date: 07/22/24 16:30 Actual Procedures p EGD Biopsy Cytology - Isaias Garcia MD Impression: - Esophagus had a little bit of a corkscrew appearance. However it was not dilated. There was no retained food in the esophagus itself. She did have 4 oropharyngeal hygiene however. There were some retained secretions and debris in the posterior pharynx which were suctioned prior to proceeding.. In the immediate distal esophagus above the GE junction there was mucosal breaks consistent with superficial ulcerations. Atypical for reflux. Biopsies performed not obvious neoplasia. Could be a pill induced esophagitis potentially from iron. - Normal stomach. - Normal examined duodenum. - No specimens collected. Recommendation: - No definite cause for this patient's early satiety. Consider barium esophagram to evaluate her swallowing specially based on poor oropharyngeal hygiene. Diagnostic Imagining Performed Chest X-Ray 07/19/24 13:32 XR chest 1V not portable CLINICAL HISTORY: pneumonia COMPARISON STUDY: 06/19/2024 FINDINGS: Stable mild cardiomegaly without pulmonary vascular congestion. There is mild stranding [place] in the lung bases, improved. No other consolidation or pleural effusion. No pneumothorax. IMPRESSION: Atelectasis or mild persistent pneumonia in the lung bases, improved. ACT 112: Negative or not required by law. Electronically signed by: Nestor Cordova M.D. 07/19/2024 3:04 PM Chest X-Ray 07/22/24 18:10 INDICATION: Cough. TECHNIQUE: Frontal radiograph of the chest. COMPARISON: Radiograph from 07/19/2024. FINDINGS: Mild cardiomegaly. Pulmonary vasculature appear within normal limits. Chronic appearing interstitial lung markings. Subsegmental atelectasis in the lung bases. No infiltrate, pleural effusion or pneumothorax. No acute osseous abnormality evident. IMPRESSION: No acute cardiopulmonary process. Electronically signed by Sedrick Chaudhari 07-22-2024 6:56 PM Barium Swallow X-Ray 07/23/24 13:00 SINGLE CONTRAST BARIUM SWALLOW CLINICAL HISTORY: abnormal appearance of the esophagus COMPARISON STUDY: Modified barium swallow June 17, 2024. FLUOROSCOPY TIME: 1.01 minutes FLUOROSCOPY IMAGES: 9 Ka,r: 7.85 mGy FINDINGS: Single contrast barium swallow was performed. No esophageal mass or stricture was identified although mucosal detail was diminished given single contrast technique. This exam was technically difficult given difficulty positioning. Severe esophageal dysmotility was noted. Therefore, gastroesophageal reflux was difficult to assess for. No hiatal hernia was identified. IMPRESSION: 1. Severe esophageal dysmotility. 2. No esophageal mass or stricture identified although mucosal detail diminished given single contrast technique. ACT 112: Negative or not required by law. Electronically signed by: Johnnie Hdz M.D. 07/23/2024 1:48 PM Chest X-Ray 07/26/24 08:51 XR chest 1V portable CLINICAL HISTORY: hypoxia COMPARISON STUDY: 07/22/2024 FINDINGS: Stable mild cardiomegaly without pulmonary vascular congestion. There is interval mild blunting of the right costophrenic angle. Otherwise stable stranding opacity in the lung bases with partial obscuration of the diaphragm. No pneumothorax. IMPRESSION: Bilateral lung base consolidation with possible small pleural effusions, stable on the left and mildly increased on the right. ACT 112: Negative or not required by law. Electronically signed by: Nestor Cordova M.D. 07/26/2024 9:19 AM Pending Results Patient Have Any Pending Studies at Discharge: No Discharge Instructions Given to Patient (Per Discharging Provider) MEDICATION CHANGES: Continue Carafate QID for ulcerative esophagitis. Continue to hold iron supplement. Continue Protonix BID and Pepcid HS for GERD. Continue Boost supplementation TID Eliquis dose reduced to 2.5mg BID based on age and weight Mucinex BID as needed for congestion SUMMARY OF TEST RESULTS: EGD (07/22): slight corkscrew appearance of esophagus however it was not dilated. There was no retained food in the esophagus itself. Noted mucosal breaks above the GE junction EGD biopsies + for ulcerative esophagitis. Barium swallow study (07/23) with severe esophageal dysmotility. Suspect pill-i nduced esophagitis likely 2/2 po iron supplements ISO severe dysmotility CXR (07/26) with bilateral lung base consolidation with possible small pleural effusions, stable on the left and mildly increased on the right RSV + on 07/22 - no longer symptomatic and on baseline 2L NC O2 Known anemia with hgb 9.6 - holding iron supplementation due to concern its inducing esophagitis. No acute bleeding. Monitor CBC PENDING TEST RESULTS: None RECOMMENDATIONS FOR FOLLOW-UP: Patient is at high risk for aspiration given severe esophageal dysmotility - continue aspiration precautions and pureed diet Continue medication regimen as scheduled aside from changes noted above. Please follow up with [facility] for R buttock wound. Please clean with saline, cover with aquacel Ag and secure with optifoam, change Q3days or sooner if needed OTHER INSTRUCTIONS: Seek medical attention if you have: * temperature above 101 * chest pain or trouble breathing * abdominal pain, nausea, vomiting * diarrhea, dark stools or bloody stools * any unanswered questions or concerns Call 911 if symptoms are severe. Please take good care of yourself. Call if you have any questions or problems. You can reach a [facility] hospitalist on duty at [facility] 24 hours a day by calling [phone]. Total Time Total Time Spent Total Time Spent (In Minutes): 40 minutes Supervising Physician Co-Signing Physician Notes Pt seen and examined by me, care coordinated with Mary Langford PA-C, pls refer to her note above for further detail. Pt underwent endoscopy during her hospital stay and diagnosed with ulcerative esophagitis, continue treatment as above, pantoprazole twice a day. She finished treatment with augmentin for asp.pna. Overall she is feeling well, currently in NAD. Pt's present at the bedside. Plan for discharge later today. MD Jarek
[2024-08-05 15:43] VITALS: BP 111/70; PULSE 59; RESP 18; TEMP 98; O2SAT 98
== END 2024-08-05 17:30 | DRG 391 ==
LOC: ED 13:16 → SUATTDRO 16:57 → EDINP 16:57 → 3N 19:34